=== PATIENT | female | born 1995 | race Caucasian/White ===

== ENCOUNTER 2019-06-13 19:43 | Emergency (ER) | payer OTHER, SELFPAY ==
[2019-06-13 20:05] VITALS: BP 119/87; PULSE 124; RESP 20; TEMP 38.4; O2SAT 100
--- NOTE | 2019-06-13 20:05 | ED.URI ---
HPI - URI/Sore Throat General Chief Complaint: Back Pain/Injury Stated Complaint: Fever Time Seen by Provider: 06/13/19 20:06 Source: patient and family Mode of arrival: ambulatory Limitations: no limitations History of Present Illness HPI Narrative: Patient states she had a negative influenza negative strep test A walk-in clinic yesterday. Patient states she was diagnosed with a viral illness. patient presents today with continued sore throat continued fever and generalized body aches. Patient also complains of low back pain. But denies any urinary symptoms. Patient has taken Augmentin as prescribed for her symptoms. Patient states she had a high fever at home. And took Tylenol and ibuprofen 2 hours ago. Patient also states that she was placed on Augmentin yesterday and has taken 3 doses of Augmentin. Patient states she thinks she was given it for her sinus drainage.Patient reports sore throat, nasal drainage. and cough, no shortness of breath and no chest pain. Patient states she thought she would be better after taking the augmenting, but continues to have same symptoms after starting on augmentin yesterday. MD elicited complaint: fever, sore throat, rhinorrhea and nasal congestion Related Data Home Medications Medication Instructions Recorded Confirmed amoxicillin-pot clavulanate 1 tablet PO Q12H 06/13/19 06/13/19 [Augmentin] Allergies Allergy/AdvReac Type Severity Reaction Status Date / Time No Known Allergies Allergy Unverified 03/05/18 11:30 Review of Systems Review of Systems: Narrative: CONSTITUTIONAL: Denies chills, or sweats. EYES: Denies visual changes, redness, or discharge. ENT: Sore throat, nasal congestion generalized body aches and fever CARDIOVASCULAR: Denies chest pain, palpitations, or edema. RESPIRATORY: Denies cough or dyspnea. GASTROINTESTINAL: Denies abdominal pain, nausea, vomiting, or diarrhea. GENITOURINARY: Denies dysuria or hematuria. SKIN: Denies rash or itching. MUSCULOSKELETAL: Denies back pain, joint pain, or myalgia. NEUROLOGIC: Denies headache, numbness, or weakness. PSYCHIATRIC: Denies anxiety or depression. Constitutional: Constitutional: Reports as per HPI [facility] Comments At time of signature, agree with nursing past medical, surgical, social and family history. There is no relevant family history pertinent to the presenting complaint Exam Narrative: Exam Narrative: GENERAL: Well-appearing, well-nourished, and in no acute distress. HEAD: Normocephalic, atraumatic. EYES: PERRLA and EOMI. ENT: Bilateral TM dullness, mild pharyngeal erythremia no exudate no trismus can open mouth fully. Moderate amount of postnasal drainage NECK: Supple. CHEST: Clear to auscultation. No respiratory distress. HEART: Regular rate and rhythm. No murmur heard. Normal peripheral pulses. ABDOMEN: Soft, nontender, nondistended, normal active bowel sounds. EXTREMITIES: Normal range of motion. No edema. SKIN: Warm, dry, no rash. NEURO: No focal deficits. Alert and oriented x3. [place] Coma Scale Eye Opening: Spontaneous 4 [place] Coma Scale Motor: Obeys Commands 6 [place] Coma Scale Verbal: Oriented 5 Jai Coma Scale Total 15 discussed with patient exam is consistent with viral illness. Patient states she was diagnosed with a virus yesterday, but given augmenting for nasal drainage. Patient states fever is controled with ibuprofen and tylenol. Patient does not wish to go to er at this time. Patient would like to go home, rest, push fluids and if no improvement in 24 hours will follow up with pcp or go to er for further evaluation and treatment. Course Vital Signs Vital signs: Vital Signs Temperature 38.4 C H 06/13/19 20:05 Pulse Rate 124 H 06/13/19 20:05 Respiratory Rate 06/13/19 20:05 Blood Pressure 119/87 06/13/19 20:05 Pulse Oximetry 100 06/13/19 20:05 Temperature 38.4 C H 06/13/19 20:05 Pulse Rate 124 H 06/13/19 20:05 Respiratory Rate
== END 2019-06-13 20:20 | disposition home or self-care (01) ==
PROVIDERS: Emergency Provider Nurse Practitioner Family
DX: J06.9 Acute upper respiratory infection, unspecified (principal); B34.9 Viral infection, unspecified
CPT/HCPCS: 81003; 81025; 87081; 87880; 99213; G0463

== ENCOUNTER 2019-09-08 09:45 | Emergency (ER) | payer OTHER, SELFPAY ==
--- NOTE | ~2019-09-08 | XR_ITS ---
XR ankle RT min 3V 09/08/2019 10:04 INDICATION: Right ankle pain after fall PROCEDURE: 4 views right ankle COMPARISON: No prior studies for comparison. FINDINGS: Fracture, dislocation or subluxation is not identified. Ankle mortise intact. There is mild lateral soft tissue swelling. No foreign bodies are identified. IMPRESSION: 1: NO ACUTE BONE OR JOINT ABNORMALITY IDENTIFIED. Reviewed, dictated and finalized at location A.
[2019-09-08 09:49] VITALS: BP 129/71; PULSE 101; RESP 22; TEMP 36.7; O2SAT 100
--- NOTE | 2019-09-08 09:52 | ED.LOWEXIN ---
HPI - Extremity Injury (Lower) General Chief Complaint: Extremity Injury, Lower Stated Complaint: right ankle injury Time Seen by Provider: 09/08/19 10:08 Source: patient and RN notes reviewed Mode of arrival: ambulatory Limitations: no limitations History of Present Illness HPI Narrative: 24-year-old female presents with concern for right ankle injury. Reports while camping yesterday she was stepping out of a camper and rolled her ankle. Reports she heard popping and cracking . Reports she has taken ibuprofen and Tylenol with codeine for pain. MD complaint: ankle injury Related Data Home Medications Medication Instructions Recorded Confirmed No Home Medications 09/08/19 09/08/19 Allergies Allergy/AdvReac Type Severity Reaction Status Date / Time No Known Allergies Allergy Verified 09/08/19 09:59 Review of Systems Review of Systems: Narrative: CONSTITUTIONAL: Denies malaise, chills, sweats, or fever. CARDIOVASCULAR: Denies chest pain, palpitations RESPIRATORY: Denies dyspnea. SKIN: Reports right ankle swelling MUSCULOSKELETAL: Reports right ankle pain and swelling NEUROLOGIC: Denies numbness, weakness. All systems reviewed & are unremarkable except as noted in HPI and below PMF[facility] Comments At time of signature, agree with nursing past medical, surgical, social and family history. There is no relevant family history pertinent to the presenting complaint Exam Narrative: Exam Narrative: GENERAL: Well-appearing, well-nourished, and in no acute distress. HEAD: Normocephalic, atraumatic. EYES: PERRLA, conjunctivae clear NECK: Supple. CHEST: Speaks in full sentences. No respiratory distress. HEART: Regular rate and rhythm. Normal and equal peripheral pulses. EXTREMITIES: Right ankle and digits of right foot has normal strength and sensation, normal range of motion. Right ankle lateral and medial edema, no foot edema. 5/5 strength with digit flexion and extension. Normal sensation with sensitivity to light touch and pain. No open wounds, no skin tenting, no devitalized tissue or atrophy, no trophic changes, no ecchymosis, no obvious deformity, alignment normal, no point tenderness, nearby joints and structures intact. Distal pulses palpable and equal bilaterally, skin warm, dry, pink. Capillary refill less than 3 seconds. SKIN: Warm, dry, no rash. NEURO: Alert and oriented x3. PSYCH: Normal mood and affect Course Course Emergency Course: Patient is aware of diagnosis, understands and agrees to treatment plan. Anticipatory guidance given. Patient agrees to follow-up as directed and is aware of reasons to seek care at the emergency department. Portions of this record may have been created with voice recognition software Vital Signs Vital signs: Vital Signs Temperature 98.1 F 09/08/19 09:49 Pulse Rate 101 H 09/08/19 09:49 Respiratory Rate 22 H 09/08/19 09:49 Blood Pressure 129/71 09/08/19 09:49 Pulse Oximetry 100 09/08/19 09:49 Temperature 98.1 F 09/08/19 09:49 Pulse Rate 101 H 09/08/19 09:49 Respiratory Rate 22 H 09/08/19 09:49 Blood Pressure 129/71 09/08/19 09:49 Pulse Oximetry 100 09/08/19 09:49 Reviewed. MDM - Extremity Injury (Lower) MDM Narrative Medical decision making narrative: Patients injury and pain is consistent with musculoskeletal etiology. No signs of neurological or vascular compromise on exam. Compartments and tissues are soft without signs of compartment syndrome. Pain is felt appropriate for further evaluation on an outpatient basis. Differential Diagnosis Differential diagnosis: Likely ankle sprain and strain and ankle fracture Imaging Data My impression: Images reviewed, interpreted by radiologist, see report. Not mentioned in the radiologist report, potential mild distal fibular avulsion, unconfirmed by radiologist. Critical Care Time Critical Care Time Critical Care Time: No Discharge Plan Discharge Clinical Impression: Ankle sprain and strain
--- NOTE | 2019-09-08 11:04 | PC.NURSE ---
PT TAKEN TO RADIOLOGY AND ROOM IN WHEELCHAIR
== END 2019-09-08 10:39 | disposition home or self-care (01) ==
PROVIDERS: Emergency Provider Nurse Practitioner; PCP Emergency Medicine
DX: S93.401A Sprain of unspecified ligament of right ankle, initial encounter (principal); S96.911A Strain of unspecified muscle and tendon at ankle and foot level, right foot, initial encounter; X50.9XXA Other and unspecified overexertion or strenuous movements or postures, initial encounter
CPT/HCPCS: 73610; 99213; G0463

== ENCOUNTER 2020-06-27 20:44 | Emergency (ER) | payer OTHER, SELFPAY ==
[2020-06-27] VITALS (13 sets, daily range): BP systolic 116–146; BP diastolic 71–99; PULSE 70–91; RESP 16–18; TEMP 36.1; O2SAT 96–100
--- NOTE | ~2020-06-27 | CT_ITS ---
EXAMINATION: CT abdomen pelvis wo con DATE: 06/27/2020 22:03 INDICATION: Left lower quadrant pain TECHNIQUE: Computed tomography (CT) of the abdomen and pelvis was performed without intravenous contr ast. The dose-length product (DLP) was 860.66 mGy-cm. Automated exposure control and iterative recons truction technique were employed. COMPARISON: 12/22/2014 FINDINGS: The lung bases are clear. The heart size is normal. The gallbladder is surgically absent. T he liver, spleen, pancreas, and adrenal glands are normal. The kidneys are unremarkable. No pathologi dl enlarged abdominal or pelvic lymph nodes are identified. There is no free intraperitoneal gas o r evidence of bowel obstruction. There are changes of appendectomy. There is a fat-containing umbilic al hernia. IMPRESSION: 1. No CT correlate for the patient's symptoms. Reviewed, dictated and finalized at location A. S TECHNICIAN/INSTALLER
[2020-06-27 21:13] LABS: Basophils Absolute Auto 0.1 K/mm3 (0.0-0.1); Basophils Percent Auto 0.8 % (0.2-1.2); Eosinophils Absolute Auto 0.2 K/mm3 (0-0.3); Eosinophils Percent Auto 1.3 % (0-4.4); Hematocrit 40.7 % (37.0-47.0); Hemoglobin 14.1 g/dL (12.0-15.0); Immature Granulocyte Absolute 0.06 K/mm3 (0.00-0.031); Immature Granulocyte Percent A 0.5 % (0-0.5); Lymphocytes Absolute Auto 3.81 K/mm3 (0.9-3.2); Lymphocytes Percent Auto 28.6 % (18.3-44.2); Mean Corpuscular HGB Conc 34.6 g/dl (32-36); Mean Corpuscular Hemoglobin 30.2 pg (26-34); Mean Corpuscular Volume 87.2 fl (80-100); Mean Platelet Volume 8.9 fl (7.4-10.4); Monocytes Absolute Auto 0.8 K/mm3 (0.1-0.6); Monocytes Percent Auto 6.1 % (2.6-8.5); Neutrophils Absolute Auto 8.4 K/mm3 (1.3-6.7); Neutrophils Percent Auto 62.7 % (45.5-73.1); Platelet Count Result 383 k/mm3 (150-375); Red Blood Count 4.67 M/mm3 (4.2-5.4); White Blood Count 13.3 K/mm3 (4.5-10.0)
[2020-06-27 21:15] LABS: Add Urine Microscopic? NO; Appearance Urine Clear (Clear); Bilirubin Urine Negative (Negative); Blood Urine Negative (Negative); Color Urine Straw (Yellow); Glucose Urine UA Negative (Negative); Ketones Urine Negative (Negative); Leukocyte Esterase Ur Negative LEU/UL (Negative); Nitrate Urine Negative (Negative); Protein Urine Negative (Negative); Specific Grav Ur 1.012 (1.001-1.035); Urobilinogen Urine Negative mg/dL (<2.0)
[2020-06-27] MEDS: ONDANSETRON INJ 4 MG/2 ML VIAL IV PUSH (21:17)
[2020-06-27] MEDS: SODIUM CHLORIDE 0.9% IV 1,000 ML 999 ML IV CONT (21:17)
[2020-06-27] MEDS: HYDROmorphone HCL INJ (*CRX) 1 MG/ML SYR IV PUSH ×2 (21:18→22:56)
[2020-06-27 21:24] LABS: Alanine Aminotransferase 17 U/L (4-35); Albumin Level 4.6 g/dL (3.5-5.1); Alkaline Phosphatase 56 U/L (38-126); Anion Gap 7 mmol/L (8-16); Aspartate Amino Transferase 27 U/L (14-36); Bilirubin,Total 0.3 mg/dL (0.2-1.3); Blood Urea Nitrogen 16 mg/dL (7-17); Calcium 9.3 mg/dL (8.4-10.2); Carbon Dioxide 29 mmol/L (22-30); Chloride 105 mmol/L (98-107); Estimated CRCL calculation 107 ml/min; Estimated Glomerular Filt Rate > 60; Glucose 84 mg/dL (65-105); Lipase 167 U/L (23-300); Potassium 3.8 mmol/L (3.4-5.0); Sodium 141 mmol/L (137-145)
--- NOTE | 2020-06-27 21:57 | ED.GENADULT ---
HPI - General Adult General Chief complaint: Abdominal Pain Stated complaint: left lower abd pain Time Seen by Provider: 06/27/20 20:58 History of Present Illness HPI narrative: Patient is a 25-year-old female who presents the emergency department with chief complaint of left lower quadrant pain. Patient states that she has a sharp-like pain in the left lower quadrant reports that is gradually worsened throughout the day patient reports he is unable to get comfortable in any position reports has had some nausea and vomiting with this denies diarrhea denies vaginal discharge denies dysuria. Patient reports no prior history of kidney stones reports has had a prior appendectomy and reports he had a prior cholecystectomy. Related Data Home Medications Medication Instructions Recorded Confirmed levothyroxine [Euthyrox] 06/27/20 Allergies Allergy/AdvReac Type Severity Reaction Status Date / Time No Known Allergies Allergy Verified 06/27/20 21:07 Review of Systems Review of Systems: Narrative: A 10 system review of systems was completed on the patient and is negative except for what is stated in the HPI. Nursing and ancillary documentation was reviewed. PMFSH Comments Patient has negative past medical history Past surgical history significant for appendectomy and cholecystectomy Social history the patient denies smoking or illicit drug use Exam Narrative: Exam Narrative: GENERAL: Well-appearing, well-nourished, and in no acute distress. HEAD: Normocephalic, atraumatic. EYES: PERRLA and EOMI. ENT: Nares clear, no rhinorrhea or epistaxis. Mucous membranes moist. NECK: Supple. CHEST: Clear to auscultation. No respiratory distress. HEART: Regular rate and rhythm. No murmur heard. Normal peripheral pulses. ABDOMEN: Soft, tender to palpation in the left lower quadrant, nondistended, normal active bowel sounds. EXTREMITIES: Normal range of motion. No edema. SKIN: Warm, dry, no rash. NEURO: No focal deficits. Alert and oriented x3. PSYCH: Normal mood and affect. Course Course Emergency Course: CT scan of the abdomen pelvis showed no evidence of acute abnormality. Vital Signs Vital signs: Vital Signs Temperature 36.1 C L 06/27/20 20:48 Pulse Rate 91 06/27/20 20:48 Respiratory Rate 18 06/27/20 20:48 Blood Pressure 146/99 H 06/27/20 20:48 Pulse Oximetry 97 06/27/20 20:48 Temperature 36.1 C L 06/27/20 20:48 Pulse Rate 91 06/27/20 20:48 Respiratory Rate 18 06/27/20 20:48 Blood Pressure 116/71 06/27/20 22:01 Pulse Oximetry 99 06/27/20 22:01 Medical Decision Making Vital Signs Vital Signs: Vital Signs Temperature 36.1 C L 06/27/20 20:48 Pulse Rate 91 06/27/20 20:48 Respiratory Rate 18 06/27/20 20:48 Blood Pressure 146/99 H 06/27/20 20:48 Pulse Oximetry 97 06/27/20 20:48 Temperature 36.1 C L 06/27/20 20:48 Pulse Rate 91 06/27/20 20:48 Respiratory Rate 18 06/27/20 20:48 Blood Pressure 116/71 06/27/20 22:01 Pulse Oximetry 99 06/27/20 22:01 Lab Data Result diagrams: 06/27/20 21:03 06/27/20 21:03 Labs: Lab Results 06/27/20 06/27/20 06/27/20 Range/Units 21:03 21:03 21:03 WBC 13.3 H (4.5-10.0) K/mm3 RBC 4.67 (4.2-5.4) M/mm3 Hgb 14.1 (12.0-15.0) g/dL Hct 40.7 (37.0-47.0) % MCV 87.2 (80-100) fl MCH 30.2 (26-34) pg MCHC 34.6 (32-36) g/dl RDW 11.0 L (11.5-14.5) % Plt Count 383 H (150-375) k/mm3 MPV 8.9 (7.4-10.4) fl Immature Gran % (Auto) 0.5 (0-0.5) % Neut % (Auto) 62.7 (45.5-73.1) % Lymph % (Auto) 28.6 (18.3-44.2) % Sullivan % (Auto) 6.1 (2.6-8.5) % Eos % (Auto) 1.3 (0-4.4) % Baso % (Auto) 0.8 (0.2-1.2) % Lymph # (Auto) 3.81 H (0.9-3.2) K/mm3 Sullivan # (Auto) 0.8 H (0.1-0.6) K/mm3 Eos # (Auto) 0.2 (0-0.3) K/mm3 Baso # (Auto) 0.1 (0.0-0.1) K/mm3 Abs Immat Gran (auto) 0.06 H (0.00-0.031) K/mm3 Absolute Ne
[2020-06-27] MEDS: KETOROLAC 30 MG/ML VIAL (*BKC) IV PUSH (22:55)
== END 2020-06-27 23:28 | disposition home or self-care (01) ==
PROVIDERS: Emergency Provider Emergency Medicine; PCP Emergency Medicine
DX: R10.32 Left lower quadrant pain (principal)
CPT/HCPCS: 36415; 74176; 80053; 81003; 81025; 83690; 85025; 96361; 96374; 96375; 96376; 99284; J1170; J1885; J2405; J7030

== ENCOUNTER → 2020-07-18 01:43 | Outpatient (CLI) | payer OTHER, SELFPAY ==
[2020-07-18 18:54] LABS: SARS-CoV-2 RNA PCR Negative
== END ==
PROVIDERS: PCP Emergency Medicine; Visit Provider Obstetrics & Gynecology
DX: Z01.812 Encounter for preprocedural laboratory examination (principal); Z20.822 Contact with and (suspected) exposure to COVID-19
CPT/HCPCS: C9803; U0003; U0005

== ENCOUNTER 2020-07-22 00:34 | Day surgery (SDC) | payer OTHER, SELFPAY ==
[2020-07-14 10:05] VITALS: BMI 32.4
[2020-07-22] VITALS (13 sets, daily range): BP systolic 108–155; BP diastolic 57–82; PULSE 71–117; RESP 16–18; TEMP 36.4–37.7; O2SAT 92–100
[2020-07-22] MEDS: LACTATED RINGERS 1,000 ML 30 ML IV CONT ×3 (10:07→16:11)
[2020-07-22] MEDS: ACETAMINOPHEN 500 MG TABLET 1000 MG PO (10:07)
[2020-07-22] MEDS: KETOROLAC 15 MG/ML VIAL (*BKC) IV PUSH (10:12)
--- NOTE | 2020-07-22 11:09 | WPDHPUPDATE1 ---
History and Physical Update Update Date/Time: 07/22/20 11:09 History and Physical has been reviewed, including an updated exam of the patient. There are NO changes in the patient's condition. Risks, benefits, and alternatives have been discussed and questions answered. Patient agrees to proceed with procedure.
--- NOTE | 2020-07-22 11:31 | WPDANESEPPF ---
Anes - Initial Pre Proc Eval Procedure: Operation Date: 07/22/20 11:30 Proposed Procedures p Diagnostic Laparoscopy - Aubree Garcia MD Date/Time: 07/22/20 11:31 Surgeon: Aubree Garcia MD Pre Op Diagnosis: Pelvic Pain Patient Data Age: 25 Gender: F Height: 5 ft 5 in Weight: 93.1 kg Last Vital Signs Temp 99.8 F H 07/22/20 10:21 Pulse 82 07/22/20 10:21 Resp 18 07/22/20 10:21 BP 110/65 07/22/20 10:21 Pulse Ox 99 07/22/20 10:21 Allergies Allergy/AdvReac Type Severity Reaction Status Date / Time No Known Allergies Allergy Verified 07/22/20 10:18 Home Medications Medication Instructions Recorded Confirmed Type hydrocodone-acetaminophen 1 tablet PO Q6H PRN 3 Days #12 06/27/20 Rx tablet levothyroxine [Euthyrox] 50 mcg PO DAILY 06/27/20 History Patient hx anesthesia problems: none Family hx anesthesia problems: none [facility] Past Medical History Medical History (Updated 07/22/20 @ 11:28 by Gatito Davila MD) Anxiety Hypothyroid Social History Social History Smoking status: Never smoker Living arrangements: with family Spiritual care concerns: No Anes - Eval Final PreProcedure Day of Procedure 07/22/20 11:31 Patient weight: obese Heart: regular rate and rhythm Lungs: clear to auscultation Airway: Mallampati scale class II Neurological: alert and oriented Last oral intake: >/= 8 hours ASA classification: II Emergent: no Anesthetic plan: proceed Anesthesia type and monitoring: general ETT and standard monitoring Informed Consent: The patient's anesthetic plan and its attendant risks and benefits were discussed with the patient/family/POA. Questions were solicited and answers provided to the satisfaction of the patient/family/POA.
--- NOTE | 2020-07-22 14:33 | P.OP_ITS ---
Procedure Note - Detailed Date of procedure: 07/22/20 Pre-op diagnosis: Pelvic Pain Right ovarian cyst, endometriosis Procedure performed: Laparoscopic ovarian cystectomy, radical resection of endometriosis in the posterior cul-de-sac Description of procedure: The patient was taken the operating room. She was prepped and draped in the dorsal lithotomy position after induction of general anesthesia. A 5 mm left upper quadrant incision was made in the abdominal skin with a scalpel. A 5 mm trocar was inserted the intra-abdominal cavity under direct visualization of the scope. A 5 mm left lower quadrant incision was made with the scalp on the abdominal skin and a 5 mm trocar was inserted the intra- abdominal cavity under direct visualization of the scope. A 5 mm infraumbilical incision was made with scalpel and a 5 mm trocar was inserted into the intra- abdominal cavity under direct visualization of the scope. An ovarian cyst and possible mass removed the right ovary. Using sharp and blunt dissection cautery the the mass and cyst were removed. There placed in an endobag and taken at the left lower quadrant trocar site, after it was expanded to a 11 mm trocar. A Falope mm skin incision was completed from the original 5 mm incision. This was done with a scalpel. The ovaries were suspended using Joseluis-Price needle placed through the abdomen bilaterally with an 0 Vicryl. The Joseluis Isaías needle was pushed thro ugh the ovary and the suture was grasped on the other side the ovary and pulled back through the skin and was held in place with a hemostat. This was done in a bilateral fashion. A ASHOK manipulator was placed in the intrauterine cavity using a speculum and tenaculum. The peritoneum in the posterior cul-de-sac was removed completely with the exception of the perineum over the rectum. It was removed from the perirectal area to laterally to the fallopian tube, and it was removed from the uterine artery superiorly to the pelvic brim. The ureters were dissected out and were observable throughout the procedure. Interceed was placed over the juanito pelvis sees in the posterior cul-de-sac. All this required over 2 hours. Prior to placement of the Interceed, the pelvis was irrigated with copious amounts of normal saline. The pneumoperitoneum was reduced. The trocars were removed. The patient was taken recovery room stable condition. Sponge lap and needle counts were correct x2. Anesthesia: GETA Surgeon: Aubree Garcia MD Estimated blood loss (mL): 50 Drains: No Packing: No Pathology: yes Complications: No immediate complications Condition: stable Disposition: same day Findings: Endometriosis, find vesicular endometriosis the posterior cul-de-sac bilaterally residing mostly in the medial aspects of the hemipelvis ease. Right ovarian cysts and possible mass. Likely Patent right fallopian tube and normal- appearing left fallopian
[2020-07-22] MEDS: fentaNYL CITRATE INJ (*CRX) 100 MCG/2 ML VIAL 25 MCG IV PUSH ×8 (15:07→16:00)
[2020-07-22] MEDS: HYDROmorphone HCL INJ (*CRX) 1 MG/ML SYR 0.5 MG IV PUSH ×3 (16:09→16:42)
[2020-07-22] MEDS: oxyCODONE HCL (*CRX) 5 MG TAB IR PO (16:48)
--- NOTE | 2020-07-22 17:00 | SUR.PHASEII ---
1700- Patient tearful and crying sitting in recliner requesting I want to go home now . Informed patient we would monitor her vital signs and pain level until 1730. at bedside voicing he is angry with how long this procedure has taken today but agreeable for patient to stay until 1730 to continue being monitored. 1715- Patient requesting different pain medication be sent into her pharmacy and for this RN to call Dr. Garcia for new prescription for different pain medication. This RN called and spoke with Dr. Garcia about patient's concern with pain control at home with the [facility] script sent to her pharmacy. Per Dr. Garcia instruct patient to take two [place] prescribed at a time. 1720- Informed patient that Dr. Garcia has recommended to take two Pine[place]st tablets at a time for pain control and to call his office if this is not sufficient and with any concerns or questions.
== END 2020-07-22 17:35 | disposition home or self-care (01) ==
PROVIDERS: PCP Emergency Medicine; Visit Provider Obstetrics & Gynecology
PROC: (CPT 49320; principal; 2020-07-22 11:30)
DX: R10.2 Pelvic and perineal pain (principal); N83.11 Corpus luteum cyst of right ovary; K66.8 Other specified disorders of peritoneum; N80.3 Endometriosis of pelvic peritoneum; E03.9 Hypothyroidism, unspecified; F41.9 Anxiety disorder, unspecified; E66.9 Obesity, unspecified; Z68.34 Body mass index [BMI] 34.0-34.9, adult
CPT/HCPCS: 58662; 88305; A9270; J0330; J1100; J1170; J1885; J2250; J2405; J2704; J3010; J7120; Q9968

== ENCOUNTER 2020-07-22 23:23 | Observation (INO) | payer OTHER, SELFPAY ==
--- NOTE | ~2020-07-22 | XR_ITS ---
XR chest 1V portable DATE: 07/23/2020 01:16 INDICATION: Right anterior shoulder and rib cage pain TECHNIQUE: Portable AP chest on 07/23/2020 at 0119 hours COMPARISON: 11/11/2017 PA and lateral chest FINDINGS: Normal heart size. Low lung volumes may account for mild atelectasis at the lung bases. Oth erwise the lungs appear clear. No pleural effusion or pulmonary vascular congestion or pneumothorax. Minimal levoscoliosis of the thoracic spine. Surgical clips overlie the right upper quadrant, consistent with cholecystectomy. IMPRESSION: Limited portable study with mild atelectasis at the lung bases; otherwise no active cardi opulmonary disease Reviewed, dictated and finalized at location A. IMPRESSION: Limited portable study with mild atelectasis at the lung bases; oth erwise no active cardiopulmonary disease
--- NOTE | ~2020-07-22 | CT_ITS ---
EXAMINATION: CT abdomen pelvis wo con DATE: 07/23/2020 21:45 INDICATION: Abdominal pain. Patient had surgery yesterday. TECHNIQUE: Computed tomography (CT) of the abdomen and pelvis was performed without intravenous contr ast. Automated exposure control and iterative reconstruction technique were employed. Exam dose: 152 3.04 mGy-cm total exam DLP. COMPARISON: June 27, 2020 CT abdomen pelvis FINDINGS: There is bibasilar atelectasis, right greater than left. Normal heart size. No pericardial or pleural effusion. There is intraperitoneal free air, which is likely postoperative, given history of surgery yesterday. Status post cholecystectomy. No hepatic, splenic, pancreatic, and adrenal or renal space-occupying mass lesion. No urinary tract calculus or hydroureteronephrosis. There is stranding around both ovaries and adnexal areas. Uterus appears normal. The urinary bladder is unremarkable. There is subcutaneous emphysema and fat stranding in the region of the lateral left abdominal wall mu sculature and subcutaneous adipose tissues. No bowel obstruction, bowel wall thickening, pneumatosis or intraperitoneal free air is detected. Nor mal caliber of the abdominal aorta. No intraperitoneal or retroperitoneal or pelvic mass lesion or ad enopathy or ascites. Included skeletal structures are unremarkable. IMPRESSION: Subcutaneous emphysema of the left lateral abdominal wall subcutaneous tissues and muscu lature and mild intraperitoneal air; given the history of surgery yesterday, these findings may be po stoperative. Clinical correlation is advised Additionally, there is some soft tissue stranding around the ovaries and adnexal areas. Reviewed, dictated and finalized at Location A. Reviewed, dictated and finalized at location A. IMPRESSION: Subcutaneous emphysema of the left lateral abdominal wall subcutan eous tissues and musculature and mild intraperitoneal air; given the history of surgery yesterday, these findings may be postoperative. Clinical correlation i s advised Additionally, there is some soft tissue stranding around the ovaries and adnexa l areas.
[2020-07-22 23:38] VITALS: PULSE 115; RESP 16; O2SAT 98
[2020-07-22 23:44] VITALS: BP 129/73; PULSE 107; RESP 19; O2SAT 98
--- NOTE | 2020-07-22 23:44 | PC.NURSE ---
Pt presents to ED with complaints of right shoulder pain. States she had a laparoscopic surgery performed at 1100 today where she had a mass and cyst removed from her right ovary. Surgical incisions are well approximated with no s/s of infection and no drainage or erythema noted. Pt states pain to right shoulder increases with inhalation and is also noted to right rib. Pt provided 100mcg of fentanyl and 4mg of zofran lighter captain by EMS. Pt alert and oriented x4. Call button and personal items within reach. Pt advised to press call button for assistance. EDMD presented to bedside.
[2020-07-22] MEDS: HYDROmorphone HCL INJ (*CRX) 1 MG/ML SYR IV PUSH (23:53)
[2020-07-22] MEDS: SODIUM CHLORIDE 0.9% IV 1,000 ML 999 ML IV CONT (23:53)
[2020-07-22] MEDS: ONDANSETRON INJ 4 MG/2 ML VIAL IV PUSH (23:54)
[2020-07-23] VITALS (7 sets, daily range): BP systolic 107–138; BP diastolic 62–80; PULSE 84–108; RESP 18–24; TEMP 36.6–37.3; O2SAT 95–100; BMI 36.3
--- NOTE | 2020-07-23 00:14 | ED.GENADULT ---
HPI - General Adult General Chief complaint: Extremity Problem,Nontraumatic Stated complaint: shoulder pain Time Seen by Provider: 07/22/20 23:36 History of Present Illness HPI narrative: Patient is a 20-year-old female who presents the emergency department with chief complaint of right diaphragm and right shoulder pain. The patient was just in the hospital and was discharged at 5 PM today after having a intra-abdominal surgery done by [employer]. The patient states that had a difficult time controlling her pain postoperatively and she required multiple doses of IV pain medication the patient subsequently went home and states that now she is having severe pain under her right diaphragm area and reports that it radiates up into her right shoulder. Related Data Home Medications Medication Instructions Recorded Confirmed levothyroxine [Euthyrox] 50 mcg PO DAILY 06/27/20 Allergies Allergy/AdvReac Type Severity Reaction Status Date / Time No Known Allergies Allergy Verified 07/22/20 10:18 Review of Systems Review of Systems: Narrative: A 10 system review of systems was completed on the patient and is negative except for what is stated in the HPI. Nursing and ancillary documentation was reviewed. PMFSH Past Medical History Medical History Anxiety Hypothyroid Social History Social History Smoking status: Never smoker Spiritual care concerns: No Exam Narrative: Exam Narrative: GENERAL: Well-appearing, well-nourished, and in no acute distress. HEAD: Normocephalic, atraumatic. EYES: PERRLA and EOMI. ENT: Nares clear, no rhinorrhea or epistaxis. Mucous membranes moist. NECK: Supple. CHEST: Clear to auscultation. No respiratory distress. HEART: Regular rate and rhythm. No murmur heard. Normal peripheral pulses. ABDOMEN: Soft, mild tenderness to palpation in the right upper quadrant , nondistended, normal active bowel sounds. EXTREMITIES: Normal range of motion. No edema. SKIN: Warm, dry, no rash. NEURO: No focal deficits. Alert and oriented x3. PSYCH: Normal mood and affect. Course Vital Signs Vital signs: Vital Signs Pulse Rate 115 H 07/22/20 23:38 Respiratory Rate 16 07/22/20 23:38 Pulse Oximetry 98 07/22/20 23:38 Pulse Rate 107 H 07/22/20 23:44 Respiratory Rate 19 07/22/20 23:44 Blood Pressure 129/73 07/22/20 23:44 Pulse Oximetry 98 07/22/20 23:44 Medical Decision Making Vital Signs Vital Signs: Vital Signs Pulse Rate 115 H 07/22/20 23:38 Respiratory Rate 16 07/22/20 23:38 Pulse Oximetry 98 07/22/20 23:38 Pulse Rate 107 H 07/22/20 23:44 Respiratory Rate 19 07/22/20 23:44 Blood Pressure 129/73 07/22/20 23:44 Pulse Oximetry 98 07/22/20 23:44 Lab Data Result diagrams: 07/23/20 01:11 07/23/20 01:11 Labs: Lab Results 07/23/20 07/23/20 Range/Units 01:11 01:11 WBC 16.7 H (4.5-10.0) K/mm3 RBC 4.27 (4.2-5.4) M/mm3 Hgb 12.7 (12.0-15.0) g/dL Hct 37.5 (37.0-47.0) % MCV 87.8 (80-100) fl MCH 29.7 (26-34) pg MCHC 33.9 (32-36) g/dl RDW 11.3 L (11.5-14.5) % Plt Count 367 (150-375) k/mm3 MPV 9.3 (7.4-10.4) fl Immature Gran % (Auto) 0.5 (0-0.5) % Neut % (Auto) 87.4 H (45.5-73.1) % Lymph % (Auto) 7.1 L (18.3-44.2) % [place] % (Auto) 4.8 (2.6-8.5) % Eos % (Auto) 0.0 (0-4.4) % Baso % (Auto) 0.2 (0.2-1.2) % Lymph # (Auto) 1.19 (0.9-3.2) K/mm3 [place] # (Auto) 0.8 H (0.1-0.6) K/mm3 Eos # (Auto) 0.0 (0-0.3) K/mm3 Baso # (Auto) 0.0 (0.0-0.1) K/mm3 Abs Immat Gran (auto) 0.09 H (0.00-0.031) K/mm3 Absolute Neuts (auto) 14.6 H (1.3-6.7) K/mm3 Absolute Nucleated RBC 0.0 (0.0-0.012) K/mm3 Nucleated RBC % 0.0 (0.0-0.2) % Sodium 137 (137-145) mmol/L Potassium 4.5 (3.4-5.0) mmol/L Chloride 108 H (98-107) m
--- NOTE | 2020-07-23 00:55 | PC.NURSE ---
Pt resting on cart in its lowest position with call button and personal items within reach. States pain has improved from 10/10 and is now 3/10 that increases with activity and movement. vitals remain stable. Call button and personal items within reach. Advised to press call button for assistance.
--- NOTE | 2020-07-23 00:58 | PC.NURSE ---
IV fluids continue to infuse due to positional site. Pt educated on the need to keep RUE straightened to improve flow of IV fluids; pt voices her understanding.
[2020-07-23] MEDS: HYDROmorphone HCL INJ (*CRX) 1 MG/ML SYR IV PUSH (01:19)
[2020-07-23 01:31] LABS: Alanine Aminotransferase 17 U/L (4-35); Albumin Level 3.9 g/dL (3.5-5.1); Alkaline Phosphatase 44 U/L (38-126); Anion Gap 7 mmol/L (8-16); Aspartate Amino Transferase 28 U/L (14-36); Bilirubin,Total 0.3 mg/dL (0.2-1.3); Blood Urea Nitrogen 9 mg/dL (7-17); Calcium 8.4 mg/dL (8.4-10.2); Carbon Dioxide 22 mmol/L (22-30); Chloride 108 mmol/L (98-107); Estimated Glomerular Filt Rate > 60; Glucose 140 mg/dL (65-105); Lipase 80 U/L (23-300); Potassium 4.5 mmol/L (3.4-5.0); Sodium 137 mmol/L (137-145)
[2020-07-23 01:43] LABS: Basophils Percent Auto 0.2 % (0.2-1.2); Hematocrit 37.5 % (37.0-47.0); Hemoglobin 12.7 g/dL (12.0-15.0); Immature Granulocyte Absolute 0.09 K/mm3 (0.00-0.031); Immature Granulocyte Percent A 0.5 % (0-0.5); Lymphocytes Absolute Auto 1.19 K/mm3 (0.9-3.2); Lymphocytes Percent Auto 7.1 % (18.3-44.2); Mean Corpuscular HGB Conc 33.9 g/dl (32-36); Mean Corpuscular Hemoglobin 29.7 pg (26-34); Mean Corpuscular Volume 87.8 fl (80-100); Mean Platelet Volume 9.3 fl (7.4-10.4); Monocytes Absolute Auto 0.8 K/mm3 (0.1-0.6); Monocytes Percent Auto 4.8 % (2.6-8.5); Neutrophils Absolute Auto 14.6 K/mm3 (1.3-6.7); Neutrophils Percent Auto 87.4 % (45.5-73.1); Platelet Count Result 367 k/mm3 (150-375); Red Blood Count 4.27 M/mm3 (4.2-5.4); Red Cell Distribution Width 11.3 % (11.5-14.5); White Blood Count 16.7 K/mm3 (4.5-10.0)
--- NOTE | 2020-07-23 02:05 | PC.NURSE ---
Pt states pain has improved at this time and rates pain 4/10 at this time. Breathing noted to be even and unlabored, vitals stable. Call button and personal items within reach. Advised to press call button for assistance.
[2020-07-23] MEDS: KETOROLAC 30 MG/ML VIAL (*BKC) IV PUSH ×4 (02:16→22:52)
--- NOTE | 2020-07-23 02:39 | PC.NURSE ---
Pt ambulated in ortiz to restroom with steady gait pain rated 4/10 prior to ambulating from bed.
--- NOTE | 2020-07-23 02:43 | PC.NURSE ---
Report called to receiving nurseMaria. Vasquez to send pt to floor.
--- NOTE | 2020-07-23 02:56 | PC.NURSE ---
Patient transferred to room #289 from ER per wheelchair.
[2020-07-23] MEDS: SODIUM CHLORIDE 0.9% IV 1,000 ML 125 ML IV CONT (03:07)
--- NOTE | 2020-07-23 03:11 | PC.NURSE ---
Pt sent to floor alert, stable and in no obvious distress with RN.
[2020-07-23] MEDS: fentaNYL CITRATE INJ (*CRX) 100 MCG/2 ML VIAL IV PUSH ×7 (03:36→18:53)
--- NOTE | 2020-07-23 08:34 | PM.IMHP ---
H&P: HPI History of Present Illness Date/Time: 07/23/20 08:34 this patient is a 25-year-old female who is postoperative day 1 from a diagnostic laparoscopy and ovarian cystectomy. Patient was readmitted through the emergency department last night with severe shoulder pain. Patient sharp stabbing severe right upper gastric pain and shoulder. It is intermittent. It is unchanged over many hours. Pain medications Paleo to. She denies any shortness of breath. She denies any chest pain she denies any nausea, vomiting, fever, chills. She denies any dizziness. Chief Complaint: Shoulder pain Review of Systems Constitutional: Constitutional: Reports no additional constitutional complaints, Denies fatigue, Denies headache(s), Denies lethargy and Denies weakness Eyes: Eyes: Reports no additional eye complaints, Denies blurry vision and Denies photophobia ENT: Reports as per HPI, Denies headache(s) and Denies neck pain Cardiovascular: Cardiovascular: Denies chest pain, Denies diaphoresis, Denies leg edema, Denies palpitations and Denies dyspnea Respiratory: Respiratory: Denies hemoptysis, Denies dyspnea and Denies wheezing Gastrointestinal: Gastrointestinal: Denies abdominal pain, Denies melena, Denies bloating, Denies hematochezia, Denies nausea and Denies vomiting Genitourinary: Genitourinary: Reports no additional female genitourinary complaints Musculoskeletal: Musculoskeletal: Denies joint swelling, Denies neck pain, Denies numbness and Denies stiffness Neurologic: Denies Abnormal speech present, Denies confusion, Denies headache(s), Denies numbness and Denies weakness Psychiatric: Psychiatric: Denies anxiety, Denies confusion, Denies depression, Denies homicidal ideation and Denies suicidal ideation Endocrine: Endocrine: Denies fatigue and Denies palpitations Allergic/Immunologic: Allergic/Immunologic: Denies wheezing PMFSH Past Medical History Medical History Anxiety Hypothyroid Social History Social History Smoking status: Never smoker Spiritual care concerns: No Meds Home Medications and Allergies Home Medications Medication Instructions Recorded Confirmed Type levothyroxine [Euthyrox] 50 mcg PO DAILY 06/27/20 07/23/20 History hydrocodone-acetaminophen 1 - 2 tablet PO Q4H PRN #20 tablet 07/22/20 07/23/20 Rx Allergies Allergy/AdvReac Type Severity Reaction Status Date / Time No Known Allergies Allergy Verified 07/23/20 03:26 Vital Signs Vital Signs - 24 hr 07/22/20 23:38 07/22/20 23:44 07/23/20 01:35 Temperature 99.1 F Pulse Rate 115 H 107 H 97 Respiratory Rate 16 19 22 H Blood Pressure 129/73 138/68 Pulse Oximetry 98 98 98 07/23/20 02:46 07/23/20 03:00 Temperature 98.7 F 99.0 F Pulse Rate 100 108 H Respiratory Rate 18 20 Blood Pressure 114/68 133/78 Pulse Oximetry 99 95 Exam Const: General: healthy appearing, comfortable and no acute distress; No confusion Orientation/consciousness: No confusion Eyes: Direct Ophthalmoscopy: No photophobia Resp: Auscultation: clear to auscultation bilaterally, no rales, no rhonchi and no wheezes Cardio: Rate: regular rate Heart sounds: no click, no murmurs and no rubs GI: Inspection: non-distended GI Palp: No abdominal tenderness Auscultation: normal bowel sounds Neuro: General: No confusion Speech: No Abnormal speech present Extrem: General: normal to inspection, no pedal edema and no calf tenderness H&P: Results Labs Labs: Short CBC 07/23/20 Range/Units 01:11 WBC 16.7 H (4.5-10.0) K/mm3 Hgb 12.7 (12.0-15.0) g/dL Hct 37.5 (37.0-47.0) % Plt Count 367 (150-375) k/mm3 [facility] 07/23/20 01:11 Sodium 137 Potassium 4.5 Chloride 108 H Carbon Dioxide 22 BUN 9 D Creatinine 0.60 L Glucose 140 H Calcium 8.4 Liver Function 07/23/20 Range/Units 01:11 Total
[2020-07-23] MEDS: SIMETHICONE 80 MG TAB.CHEW PO ×4 (11:24→19:57)
[2020-07-23] MEDS: oxyCODONE/ACETAMINOPHEN (*CRX) 5-325 MG TABLET 2 TABLET PO (21:25)
[2020-07-23] MEDS: ALPRAZolam (*CRX) 0.5 MG TABLET PO (21:26)
[2020-07-23 21:31] LABS: Basophils Absolute Auto 0.1 K/mm3 (0.0-0.1); Basophils Percent Auto 0.7 % (0.2-1.2); Eosinophils Absolute Auto 0.1 K/mm3 (0-0.3); Eosinophils Percent Auto 1.2 % (0-4.4); Hematocrit 31.7 % (37.0-47.0); Hemoglobin 10.5 g/dL (12.0-15.0); Immature Granulocyte Absolute 0.05 K/mm3 (0.00-0.031); Immature Granulocyte Percent A 0.5 % (0-0.5); Lymphocytes Absolute Auto 3.28 K/mm3 (0.9-3.2); Lymphocytes Percent Auto 31.1 % (18.3-44.2); Mean Corpuscular HGB Conc 33.1 g/dl (32-36); Mean Corpuscular Hemoglobin 29.8 pg (26-34); Mean Corpuscular Volume 90.1 fl (80-100); Monocytes Absolute Auto 0.8 K/mm3 (0.1-0.6); Monocytes Percent Auto 7.9 % (2.6-8.5); Neutrophils Absolute Auto 6.2 K/mm3 (1.3-6.7); Neutrophils Percent Auto 58.6 % (45.5-73.1); Platelet Count Result 283 k/mm3 (150-375); Red Blood Count 3.52 M/mm3 (4.2-5.4); Red Cell Distribution Width 11.4 % (11.5-14.5); White Blood Count 10.6 K/mm3 (4.5-10.0)
[2020-07-23 22:46] LABS: INR 0.9; Partial Thromboplastin Time 25.3 SECONDS (22.3-36.8); Prothrombin Time 12.7 Seconds (11.1-14.7)
--- NOTE | 2020-07-23 22:58 | PM.GYNPNOP ---
VP ANALYSIS - A/P Assessment and plan (1) Post-op pain: Code(s): G89.18 - Other acute postprocedural pain Status: Acute Assessment and Plan: Intraoperatively there had been an area that bled and was difficult to make hemostatic. It was hemostatic at the end of the case. This gave me concerned about possible intra-abdominal blood and postoperative hemorrhage. With the worsening pain and lower hemoglobin we ordered a CT scan of the abdomen pelvis. I asked the crew to come to operate for hemoperitoneum. The final CT report showed no inter abdominal blood. We are changing her pain medication and adding anxiolytics. After some Xanax the patient appears more comfortable. She is hemodynamically stable. There is no intra-abdominal process is abnormal for postoperative patient. We will continue to observe. Postoperative Procedures: Procedures Operation Date: 07/23/20 23:00 <No data on this case meets the specified criteria> Time Spent With Patient Time: Total time spent is greater than 50% in coordination of care (as documented) at patient's floor/unit and/or counseling patient: Time with patient: Greater than 35 minutes VP ANALYSIS- PN:Subj Post-Op Subjective Date/time seen: 07/23/20 22:58 Came to see patient tonight. The patient had worsening Upper abdominal and shoulder pain. Exam Const: General: healthy appearing, comfortable and no acute distress Resp: Auscultation: clear to auscultation bilaterally, no rales, no rhonchi and no wheezes Cardio: Rate: regular rate Heart sounds: no click, no murmurs and no rubs GI: Inspection: non-distended Auscultation: normal bowel sounds Extrem: General: normal to inspection, no pedal edema and no calf tenderness VP ANALYSIS - PN: Obj Data Vital Signs Vital Signs: Vital Signs - 24 hr 07/22/20 23:38 07/22/20 23:44 07/23/20 01:35 Temperature 99.1 F Pulse Rate 115 H 107 H 97 Respiratory Rate 16 19 22 H Blood Pressure 129/73 138/68 Pulse Oximetry 98 98 98 07/23/20 02:46 07/23/20 03:00 07/23/20 07:35 Temperature 98.7 F 99.0 F 99.2 F Pulse Rate 100 108 H 100 Respiratory Rate 18 20 24 H Blood Pressure 114/68 133/78 107/69 Pulse Oximetry 99 95 100 07/23/20 13:25 07/23/20 17:48 Temperature 97.8 F 98.7 F Pulse Rate 92 84 Respiratory Rate 20 20 Blood Pressure 114/62 125/75 Pulse Oximetry 99 Intake/Output Intake/Output: Intake & Output 07/20/20 07/21/20 07/22/20 07/23/20 23:59 23:59 23:59 23:59 Intake Total 1000 Output Total 175 Balance 825 Meds/Results Medications: Active Medications Generic Name Dose Route Start Last Admin Trade Name Freq PRN Reason Stop Dose Admin Fentanyl Citrate 100 mcg 07/23/20 03:18 07/23/20 18:53 Fentanyl Citrate Inj (*Crx) 100 Mcg/2 Ml Vial IV PUSH 100 mcg Q2HR PRN Administration Pain Rated 7-10 Sodium Chloride 1,000 mls @ 125 mls/hr 07/23/20 02:00 07/23/20 19:30 Normal Saline Iv IV CONT Not Given .Q8H [facility] Ketorolac Tromethamine 30 mg 07/23/20 01:56 07/23/20 22:52 Ketorolac 30 Mg/Ml Vial (*Bkc) IV PUSH 07/28/20 01:57 30 mg Q6H PRN Administration Pain Rated 4-6 Lorazepam 1 mg 07/23/20 09:00 Lorazepam (*Crx) 0.5 Mg Tablet PO TID AARTI Ondansetron HCl 4 mg 07/23/20 01:56 Ondansetron Inj 4 Mg/2 Ml Vial IV PUSH Q4H PRN Nausea Oxycodone/Acetaminophen 2 tablet 07/23/20 20:50 07/23/20 21:25 Oxycodone/Acetaminophen (*Crx) 5-325 Mg Tablet PO 2 tablet Q4H PRN Administration Pain Rated 7-10 Simethicone 80 mg 07/23/20 10:14 07/23/20 19:57 Simethicone 80 Mg Tab.Chew PO 80 mg Q2HR PRN Administration Gas Discomfort Radiology Results: ITS Impressions Chest X-Ray 07/23/20 01:17 IMPRESSION: Limited portable study with mild atelectasis at the lung bases; otherwise no active cardiopulmonary disease Abdomen/Pelvis CT 07/23/20 21:48 IMPRESSION: Subcutaneous emphysema of the left lateral abdominal wall subcuta
[2020-07-24] VITALS: BP 121/68; PULSE 85; RESP 18; TEMP 36.7; O2SAT 99
--- NOTE | 2020-07-24 02:11 | PC.NURSE ---
[id number] Orders placed for medications, labs and CT scan per myself and Kezia Jo, charge nurse. 2121 Medications verified per pharmacy. 2124 Medications given to patient, Dr. Garcia on the floor to see patient. 2129 Transported patient to radiology for CT scan per wheelchair. 2149 Returned to floor with patient from CT scan. 2149 Dr. Garcia in patient's room and states she will need to go back to surgery as he believes she has some internal bleeding but will await final report from CT scan; patient notifying family of possible surgery. 2211 Dr. Garcia back to see patient to discuss surgery again with patient as family is upset and would like her transferred to [place]. He spoke with family on the phone (patient's stepmother who is an RN). Family and patient agree to stay here for surgery. 2235 Dr. Garcia came back to patient's room and stated final CT report shows no bleeding, only gas and normal fluid in abdomen so surgery is no longer needed. He also talked with patient's mother, Danyelle on the phone and advised we will continue to work on pain control, anxiety and monitor patient as her vital signs and condition is stable other than pain. Patient also having less pain now and seems to be more relaxed.
[2020-07-24] MEDS: SIMETHICONE 80 MG TAB.CHEW PO ×3 (02:56→11:26)
[2020-07-24] MEDS: oxyCODONE/ACETAMINOPHEN (*CRX) 5-325 MG TABLET 2 TABLET PO ×2 (02:56→07:45)
[2020-07-24 05:00] VITALS: BP 122/75; PULSE 84; RESP 18; TEMP 36.7; O2SAT 98
[2020-07-24] MEDS: KETOROLAC 30 MG/ML VIAL (*BKC) IV PUSH ×2 (05:34→11:26)
[2020-07-24] MEDS: LORazepam (*CRX) 0.5 MG TABLET 1 MG PO (07:46)
[2020-07-24 08:00] VITALS: BP 124/73; PULSE 73; RESP 18; TEMP 36.6; O2SAT 100
[2020-07-24 12:30] VITALS: BP 120/70; PULSE 76; RESP 20; TEMP 36.4; O2SAT 100
--- NOTE | 2020-07-24 12:43 | PM.GYNPNOP ---
BERRY PLANTER - A/P Assessment and plan (1) Post-op pain: Code(s): G89.18 - Other acute postprocedural pain Status: Acute Assessment and Plan: Improved postoperative pain, ready to be discharged., patient will follow-up in 4 days. Postoperative Procedures: Procedures Operation Date: 07/23/20 23:00 <No data on this case meets the specified criteria> Time Spent With Patient Time: Total time spent is greater than 50% in coordination of care (as documented) at patient's floor/unit and/or counseling patient: Time with patient: 15 - 25 minutes BERRY PLANTER- PN:Subj Post-Op Subjective Date/time seen: 07/24/20 12:43 Dramatically improved upper abdominal and shoulder pain, no shortness of breath, no chest pain, no nausea vomiting, fever, chills. Exam Const: General: healthy appearing, comfortable and no acute distress Resp: Auscultation: clear to auscultation bilaterally, no rales, no rhonchi and no wheezes Cardio: Rate: regular rate Heart sounds: no click, no murmurs and no rubs GI: Inspection: non-distended Auscultation: normal bowel sounds Extrem: General: normal to inspection, no pedal edema and no calf tenderness BERRY PLANTER - PN: Obj Data Vital Signs Vital Signs: Vital Signs - 24 hr 07/23/20 13:25 07/23/20 17:48 07/23/20 19:30 Temperature 97.8 F 98.7 F 98.1 F Pulse Rate 92 84 84 Respiratory Rate 20 20 18 Blood Pressure 114/62 125/75 135/80 Pulse Oximetry 99 99 07/24/20 00:00 07/24/20 05:00 07/24/20 08:00 Temperature 98.0 F 98.1 F 97.8 F Pulse Rate 85 84 73 Respiratory Rate 18 18 18 Blood Pressure 121/68 122/75 124/73 Pulse Oximetry 99 98 100 Intake/Output Intake/Output: Intake & Output 07/21/20 07/22/20 07/23/20 07/24/20 23:59 23:59 23:59 23:59 Intake Total 1000 Output Total 175 Balance 825 Meds/Results Medications: Active Medications Generic Name Dose Route Start Last Admin Trade Name Freq PRN Reason Stop Dose Admin Fentanyl Citrate 100 mcg 07/23/20 03:18 07/23/20 18:53 Fentanyl Citrate Inj (*Crx) 100 Mcg/2 Ml Vial IV PUSH 100 mcg Q2HR PRN Administration Pain Rated 7-10 Ketorolac Tromethamine 30 mg 07/23/20 01:56 07/24/20 11:26 Ketorolac 30 Mg/Ml Vial (*Bkc) IV PUSH 07/28/20 01:57 30 mg Q6H PRN Administration Pain Rated 4-6 Lorazepam 1 mg 07/24/20 09:00 07/24/20 07:46 Lorazepam (*Crx) 0.5 Mg Tablet PO 1 mg TID AARTI Administration Ondansetron HCl 4 mg 07/23/20 01:56 Ondansetron Inj 4 Mg/2 Ml Vial IV PUSH Q4H PRN Nausea Oxycodone/Acetaminophen 2 tablet 07/23/20 20:50 07/24/20 07:45 Oxycodone/Acetaminophen (*Crx) 5-325 Mg Tablet PO 2 tablet Q4H PRN Administration Pain Rated 7-10 Simethicone 80 mg 07/23/20 10:14 07/24/20 11:26 Simethicone 80 Mg Tab.Chew PO 80 mg Q2HR PRN Administration Gas Discomfort Radiology Results: ITS Impressions Chest X-Ray 07/23/20 01:17 IMPRESSION: Limited portable study with mild atelectasis at the lung bases; otherwise no active cardiopulmonary disease Abdomen/Pelvis CT 07/23/20 21:48 IMPRESSION: Subcutaneous emphysema of the left lateral abdominal wall subcutaneous tissues and musculature and mild intraperitoneal air; given the history of surgery yesterday, these findings may be postoperative. Clinical correlation is advised Additionally, there is some soft tissue stranding around the ovaries and adnexal areas. Labs CBC & Chem 7: 07/23/20 21:17 07/23/20 01:11 Labs: Laboratory Results - last 24 hr 07/23/20 07/23/20 21:17 22:31 WBC 10.6 H RBC 3.52 L Hgb 10.5 L Hct 31.7 L MCV 90.1 MCH 29.8 MCHC 33.1 RDW 11.4 L Plt Count 283 MPV 9.0 Immature Gran % (Auto) 0.5 Neut % (Auto) 58.6 Lymph % (Auto) 31.1 [place] % (Auto) 7.9 Eos % (Auto) 1.2 Baso % (Auto) 0.7 Lymph # (Auto) 3.28 H [place] # (Auto) 0.8 H Eos # (Auto) 0.1 Baso # (Auto) 0.1 Abs Immat Gran (auto)
--- NOTE | 2020-07-24 12:47 | P.DS_ITS ---
DS: Admitting Diagnosis Admitting Diagnosis Admitting Diagnosis: Postoperative pain DS: Discharge Diagnosis Discharge Diagnosis (1) Post-op pain: Code(s): G89.18 - Other acute postprocedural pain Status: Acute DS: Summary Hospital Course Hospital Course: Patient was admitted on postoperative day 0 through the emergency department for postoperative pain. She had upper abdominal and shoulder pain. She was post laparoscopic resection of endometriosis and ovarian cyst. Her pain continued to be severe through the 1st 24 hours. After 24 hours her pain began to improve. Anxiety was a factor in her pain perception. Treating her anxiety helped her pain. On postoperative day 2., hospital day 2. She will be discharged home. She is stable. Her vital signs have been stable throughout her stay. She was afebrile, tolerating p.o. throughout her stay as well. Status at Discharge Functional status at discharge: independent ambulation Time Spent with Patient Time attestation: Total time spent providing and/or coordinating discharge services: DS: Data Data Completed and Pending Labs on day of discharge: Labs from last 24 hours 07/23/20 07/23/20 22:31 21:17 WBC 10.6 H RBC 3.52 L Hgb 10.5 L Hct 31.7 L MCV 90.1 MCH 29.8 MCHC 33.1 RDW 11.4 L Plt Count 283 MPV 9.0 Immature Gran % (Auto) 0.5 Neut % (Auto) 58.6 Lymph % (Auto) 31.1 [place] % (Auto) 7.9 Eos % (Auto) 1.2 Baso % (Auto) 0.7 Lymph # (Auto) 3.28 H [place] # (Auto) 0.8 H Eos # (Auto) 0.1 Baso # (Auto) 0.1 Abs Immat Gran (auto) 0.05 H Absolute Neuts (auto) 6.2 Absolute Nucleated RBC 0.0 Nucleated RBC % 0.0 PT 12.7 INR 0.9 APTT 25.3 Discharge Plan Discharge Discharging Clinician: Aubree Garcia Patient Disposition: Home, Self-Care Activity: pelvic rest Diet: regular Patient Instructions: Antibiotic Form Stand Alone Forms: General Discharge Information Follow-up/Referrals: Aubree Garcia MD [Physician] - Discharge Medications: New oxycodone-acetaminophen 5-325 mg tablet 1 tablet PO Q4H PRN (Reason: pain) Qty: 25 RF: 0 Continued levothyroxine [Euthyrox] 50 mcg tablet 50 mcg PO DAILY RF: 0 Discontinued hydrocodone-acetaminophen 5-325 mg tablet 1 - 2 tablet PO Q4H PRN (Reason: pain) Qty: 20 RF: 0 Date of admission: 07/24/20 11:46 Primary Care Provider: Robby Torres Admitting Provider: Aurbee Garcia Attending physician on admission: Aubree Garcia Condition: Stable
--- NOTE | 2020-07-24 13:10 | PC.NURSE ---
Discharge instructions given to pt. Pt. states she has appt. to see Dr. Garcia on 2020. No questions or concerns voiced. Very pleasant and cooperative. here for discharge.
== END 2020-07-24 13:18 | disposition home or self-care (01) ==
LOC: ANHED 07-23 02:00 → ANHOB2 07-23 02:18
PROVIDERS: Admitting Provider Obstetrics & Gynecology; Emergency Provider Emergency Medicine; PCP Emergency Medicine; Visit Provider Obstetrics & Gynecology
DX: G89.18 Other acute postprocedural pain (principal); M25.511 Pain in right shoulder; R10.10 Upper abdominal pain, unspecified
CPT/HCPCS: 36415; 71045; 74176; 80053; 83690; 85025; 85610; 85730; 88305; 96361; 96374; 96375; 96376; 99285; A9270; C9803; G0378; J0330; J1100; J1170; J1885; J2250; J2405; J2704; J3010; J7030; J7120; Q9968; U0003; U0005

== ENCOUNTER 2020-07-28 15:19 | Outpatient (CLI) | payer OTHER, SELFPAY ==
--- NOTE | ~2020-07-28 | CT_ITS ---
EXAMINATION: CT diagnostic chest w con EXAM DATE: 07/28/2020 16:02 INDICATION: Shortness of breath. Chest pain. Recent laparoscopic surgery. TECHNIQUE: Spiral CT of the chest following intravenous injection of 75 mL Omnipaque 350. Axial, cor onal and sagittal images were reviewed. Coronal maximum intensity pixel images of chest reviewed. Neil souza dose-length product (DLP) for this examination was 329.98 mGy-cm. The exposure was tailored accor ding to patient size (auto mA exposure control), and iterative reconstruction (ASIR) was used as camelia tional dose reduction technique. Correlation is made to CT abdomen pelvis 07/23/2020. FINDINGS: The lungs are clear. No central pulmonary emboli. No evidence of upper abdominal free intr aperitoneal gas, has resolved compared to CT scan from last week. There are no pleural or pericardial effusions. Tracheobronchial tree is patent. There is no mediastinal, hilar or axillary lymphaden opathy. There is no pneumothorax. Heart normal in size. No evidence of coronary arterial calcif ication. Upper abdomen is unremarkable. The bones are unremarkable. IMPRESSION: No acute cardiopulmonary findings. Reviewed, dictated and finalized at location A.
== END 2020-07-28 15:20 | disposition home or self-care (01) ==
PROVIDERS: PCP Emergency Medicine; Visit Provider Obstetrics & Gynecology
DX: R07.89 Other chest pain (principal)
CPT/HCPCS: 71260; Q9967

== ENCOUNTER 2020-12-18 18:40 | Emergency (ER) | payer OTHER, SELFPAY ==
[2020-12-18 18:52] VITALS: BP 134/82; PULSE 88; RESP 16; TEMP 37.7; O2SAT 100
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
== END 2020-12-18 19:02 | disposition home or self-care (01) ==
PROVIDERS: Emergency Provider Nurse Practitioner Family; PCP Emergency Medicine
DX: H66.91 Otitis media, unspecified, right ear (principal); H60.91 Unspecified otitis externa, right ear; F41.9 Anxiety disorder, unspecified
CPT/HCPCS: 99213; G0463

== ENCOUNTER 2021-03-17 21:05 | Emergency (ER) | payer OTHER, SELFPAY ==
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
[2021-03-17 21:11] VITALS: BP 127/82; PULSE 84; RESP 18; TEMP 36.1; O2SAT 100
[2021-03-17 21:23] VITALS: BP 139/93; PULSE 86; RESP 18; O2SAT 100
[2021-03-17] MEDS: HYDROcodone/acetaminophen (*CRX) 5-325 MG TABLET 1 TAB PO (22:59)
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
[2021-03-17 23:38] VITALS: BP 147/84; PULSE 79; RESP 18; O2SAT 100
== END 2021-03-17 23:40 | disposition home or self-care (01) ==
PROVIDERS: Emergency Provider Family Medicine; PCP Internal Medicine
DX: S16.1XXA Strain of muscle, fascia and tendon at neck level, initial encounter (principal); F41.9 Anxiety disorder, unspecified; K21.9 Gastro-esophageal reflux disease without esophagitis; E03.9 Hypothyroidism, unspecified; V43.52XA Car driver injured in collision with other type car in traffic accident, initial encounter
CPT/HCPCS: 72125; 99284; A9270

== ENCOUNTER 2021-06-27 16:23 | Emergency (ER) | payer OTHER, SELFPAY ==
--- NOTE | ~2021-06-27 | XR_ITS ---
EXAMINATION: XR ankle RT min 3V, XR foot RT min 3V DATE: 06/27/2021 16:45 INDICATION: Right foot and ankle pain post injury TECHNIQUE: 1. Anteroposterior, mortise, additional oblique and lateral view of the right ankle were obtained. 2. Dorsoplantar, two oblique and lateral views of the right foot were obtained. COMPARISON: None. FINDINGS: Alignment of the foot and ankle is normal. Nondisplaced intra-articular fracture at the base of the r ight fourth metatarsal. Joint spaces are well maintained. No ankle joint effusion. Soft tissue swelli ng at the dorsolateral midfoot. IMPRESSION: 1. Nondisplaced intra-articular fracture at the base of the right fourth metatarsal. Reviewed, dictated and finalized at location A. ER SOCK IMPRESSION: 1. Nondisplaced intra-articular fracture at the base of the right fourth metata rsal.
[2021-06-27 16:29] VITALS: BP 118/91; PULSE 106; RESP 16; TEMP 37.4; O2SAT 99
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
--- NOTE | 2021-06-27 16:48 | PC.NURSE ---
PT TAKEN TO RADIOLOGY AND ROOM IN WHEELCHAIR
== END 2021-06-27 17:10 | disposition home or self-care (01) ==
PROVIDERS: Emergency Provider Nurse Practitioner Family; PCP Internal Medicine
DX: S93.401A Sprain of unspecified ligament of right ankle, initial encounter (principal); S96.911A Strain of unspecified muscle and tendon at ankle and foot level, right foot, initial encounter; S92.344A Nondisplaced fracture of fourth metatarsal bone, right foot, initial encounter for closed fracture; X50.9XXA Other and unspecified overexertion or strenuous movements or postures, initial encounter; K21.9 Gastro-esophageal reflux disease without esophagitis; E03.9 Hypothyroidism, unspecified
CPT/HCPCS: 73610; 73630; 99213; G0463

== ENCOUNTER → 2021-07-13 09:36 | Outpatient (CLI) | payer OTHER, SELFPAY ==
--- NOTE | ~2021-07-13 | CT_ITS ---
EXAMINATION: CT foot RT wo con DATE: 07/13/2021 10:07 INDICATION: Pain and limited range of motion at the right great toe TECHNIQUE: High resolution computed tomography (CT) of the right foot and ankle was performed without intravenous contrast. Additional sagittal and coronal reconstructions were performed. Automated expo sure control and iterative reconstruction technique were employed. The dose-length product was 182.36 mGy-cm. COMPARISON: Right foot radiographs dated 07/01/2021 FINDINGS: Is a nondisplaced oblique intra-articular fracture at the base of the fourth metatarsal with no signi ficant fracture gap or incongruity at the articular surface. Tiny avulsion fractures along the dorsal margins of the distal cuboid, lateral, middle and medial cuneiforms. The alignment and joint space. Lisfranc joint remains normal. No other fractures identified. Likely osteoarthritis related subarticu lar cystic change along the medial margin of the lateral malleolus along its articulation with the ta lar dome. Mild osteoarthritis at the third tarsal metatarsal joint with mild subarticular cystic blake ge at both sides of the plantar aspect of the joint. Fusiform thickening of the peroneus longus and b tika tendons consistent with at least mild tendinopathy at the level of the distal tip of the latera l malleolus. Soft tissue swelling with subcutaneous edema over the dorsum of the midfoot. IMPRESSION: 1. Lisfranc joint injury with avulsion fractures along the dorsal rims of the distal margin of the cu boid, medial, middle and lateral cuneiforms and nondisplaced interarticular fracture at the base of t he fourth metatarsal. Alignment remains essentially anatomic. 2. Peroneus longus and brevis tendinopathy. Reviewed, dictated and finalized at location A. N YARD DRIER IMPRESSION: 1. Lisfranc joint injury with avulsion fractures along the dorsal rims of the d istal margin of the cuboid, medial, middle and lateral cuneiforms and nondispla lobito interarticular fracture at the base of the fourth metatarsal. Alignment rem ains essentially anatomic. 2. Peroneus longus and brevis tendinopathy.
== END ==
PROVIDERS: Visit Provider Orthopaedic Surgery
DX: S92.211A Displaced fracture of cuboid bone of right foot, initial encounter for closed fracture (principal); S92.221A Displaced fracture of lateral cuneiform of right foot, initial encounter for closed fracture; S92.241A Displaced fracture of medial cuneiform of right foot, initial encounter for closed fracture; S92.234A Nondisplaced fracture of intermediate cuneiform of right foot, initial encounter for closed fracture; S92.341A Displaced fracture of fourth metatarsal bone, right foot, initial encounter for closed fracture
CPT/HCPCS: 73700

== ENCOUNTER 2021-11-09 17:05 | Observation (INO) | payer OTHER, SELFPAY ==
[2021-11-09 17:28] VITALS: BP 133/64; PULSE 92
[2021-11-09 17:31] VITALS: BP 143/71; PULSE 91
--- NOTE | 2021-11-09 17:34 | OBADM ---
This patient, Yessica Mo, admitted to the OB room OB Post 115 for observation. Patient/family oriented to hospital policies and general routines including ID bracelet, bed and alarms, visiting hours, pain management, procedures, bathroom and other care routines, personal items, smoking policy, room service/diet, and visiting hours. Patient/Family are encouraged to report perceived risks to care and to ask questions if they do not understand what they are told or what they should do.
[2021-11-09 17:46] VITALS: BP 128/77; PULSE 98
[2021-11-09 18:00] VITALS: BP 129/67; PULSE 90
[2021-11-09 18:16] VITALS: BP 130/72; PULSE 90
[2021-11-09 18:31] VITALS: BP 124/72; PULSE 86
[2021-11-09 18:41] LABS: Appearance Urine Slightly Cloudy (Clear); Bilirubin Urine Negative (Negative); Blood Urine Negative (Negative); Color Urine Yellow (Yellow); Glucose Urine UA Negative (Negative); Ketones Urine Negative (Negative); Leukocyte Esterase Ur Trace LEU/UL (Negative); Nitrate Urine Negative (Negative); Protein Urine Negative (Negative)
[2021-11-09 18:52] LABS: Amorphous Sediment Urine Few; Bacteria Urine Trace /hpf; Mucus Urine Rare /lpf; Squamous Epithelial Cell Urine Few /hpf (Few)
[2021-11-09 18:54] LABS: Add Urine Microscopic? YES
--- NOTE | 2021-12-03 08:16 | PM.OBTRLD ---
OB - Triage/Final Diagnosis Visit Information Comments/Additional reasons for admission: I have assessed the risk for this patient, Yessica Mo, and determined that she would benefit from observation care. Evaluation Laboratory results: Laboratory Tests 11/09/21 17:27 Urine Color Yellow Urine Appearance Slightly cloudy Urine pH 7.0 Ur Specific [place] 1.020 Urine Protein Negative Urine Glucose (UA) Negative Urine Ketones Negative Ur Blood (Man) Negative Urine Nitrate Negative Urine Bilirubin Negative Urine Urobilinogen 1.0 Leukocyte Esterase Rfl Trace H Urine RBC 6-10 H Urine WBC 4-6 H Ur Squamous Epith Cells Few Amorphous Sediment Few H Urine Bacteria Trace Urine Mucus Rare Final Diagnosis (1) Uterine cramping: Code(s): N94.89 - Other specified conditions associated with female genital organs and menstrual cycle Status: Acute
== END 2021-11-09 19:10 | disposition home or self-care (01) ==
PROVIDERS: Admitting Provider Obstetrics & Gynecology; PCP Internal Medicine; Visit Provider Obstetrics & Gynecology
CPT/HCPCS: 81001; G0378; G0379

== ENCOUNTER 2021-11-17 17:56 | Outpatient (CLI) | payer OTHER, SELFPAY ==
[2021-11-17] VITALS (8 sets, daily range): BP systolic 103–115; BP diastolic 56–84; PULSE 88–96
[2021-11-17 18:33] LABS: Basophils Absolute Auto 0.1 K/mm3 (0.0-0.1); Basophils Percent Auto 0.4 % (0.2-1.2); Eosinophils Absolute Auto 0.1 K/mm3 (0-0.3); Eosinophils Percent Auto 0.5 % (0-4.4); Hematocrit 31.2 % (37.0-47.0); Hemoglobin 10.9 g/dL (12.0-15.0); Immature Granulocyte Absolute 0.11 K/mm3 (0.00-0.031); Immature Granulocyte Percent A 0.8 % (0-0.5); Lymphocytes Percent Auto 13.3 % (18.3-44.2); Mean Corpuscular HGB Conc 34.9 g/dl (32-36); Mean Corpuscular Hemoglobin 30.8 pg (26-34); Mean Corpuscular Volume 88.1 fl (80-100); Mean Platelet Volume 9.4 fl (7.4-10.4); Monocytes Percent Auto 6.6 % (2.6-8.5); Neutrophils Absolute Auto 11.2 K/mm3 (1.3-6.7); Neutrophils Percent Auto 78.4 % (45.5-73.1); Platelet Count Result 262 k/mm3 (150-375); Red Blood Count 3.54 M/mm3 (4.2-5.4); Red Cell Distribution Width 12.1 % (11.5-14.5); White Blood Count 14.3 K/mm3 (4.5-10.0)
[2021-11-17 18:40] LABS: Appearance Urine Clear (Clear); Bilirubin Urine Negative (Negative); Blood Urine Negative (Negative); Color Urine Yellow (Yellow); Glucose Urine UA Negative (Negative); Ketones Urine Negative (Negative); Leukocyte Esterase Ur Negative LEU/UL (NEGATIVE); Nitrate Urine Negative (Negative); Protein Urine Negative (Negative); Urobilinogen Urine 0.2 mg/dL (<2.0)
[2021-11-17 18:41] LABS: Creatinine Urine 63.6 mg/dL; Total Protein Urine Random 12 mg/dL; Ur Ttl Prot Creatinine Ratio 0.19 mg/mg (0-0.20)
[2021-11-17 18:44] LABS: Add Urine Microscopic? NO; Alanine Aminotransferase 18 U/L (6-35); Albumin Level 3.7 g/dL (3.5-5.1); Alkaline Phosphatase 56 U/L (38-126); Anion Gap 4 mmol/L (8-16); Aspartate Amino Transferase 19 U/L (14-36); Bilirubin,Total < 0.1 mg/dL (0.2-1.3); Blood Urea Nitrogen 8 mg/dL (7-17); Calcium 8.8 mg/dL (8.4-10.2); Carbon Dioxide 24 mmol/L (22-30); Chloride 108 mmol/L (98-107); Estimated Glomerular Filt Rate > 60; Glucose 95 mg/dL (65-110); Potassium 3.7 mmol/L (3.4-5.0); Sodium 136 mmol/L (137-145)
--- NOTE | 2021-11-17 19:20 | PC.NURSE ---
called Shabnam Bryant and notified pt admission for HIP evaluation. PIH lab result and BP reported. order received for headache medication. okay to discharge
[2021-11-17] MEDS: ACETAMINOPHEN/BUTALBITAL/CAFFEINE 325-50-40 MG TABLET (FIORICET) 2 TAB PO (19:50)
== END 2021-11-17 19:51 | disposition home or self-care (01) ==
LOC: ANHOBOP 18:00 → ANHOBPP 18:01
PROVIDERS: PCP Internal Medicine; Visit Provider Advanced Practice Midwife
DX: O13.2 Gestational [pregnancy-induced] hypertension without significant proteinuria, second trimester (principal); Z3A.22 22 weeks gestation of pregnancy
CPT/HCPCS: 36415; 59025; 80053; 81003; 82570; 84156; 84550; 85025; 87086; 99199; A9270

== ENCOUNTER 2022-01-15 21:30 | Observation (INO) | payer OTHER, SELFPAY ==
[2022-01-15] VITALS (14 sets, daily range): BP systolic 112–125; BP diastolic 66–72; PULSE 75–104; RESP 16; TEMP 36.4; O2SAT 98–100; BMI 38.9
[2022-01-15] MEDS: TERBUTALINE SULFATE 1 MG/ML VIAL 0.25 MG SUB-Q (22:55)
--- NOTE | 2022-01-15 22:59 | OBADM ---
This patient, Yessica Mo, admitted to the OB room Labor/Delivery/Recovery 105 for observation. Patient/family oriented to hospital policies and general routines including ID bracelet, bed and alarms, visiting hours, pain management, procedures, bathroom and other care routines, personal items, smoking policy, room service/diet, and visiting hours. Patient/Family are encouraged to report perceived risks to care and to ask questions if they do not understand what they are told or what they should do.
[2022-01-15 23:26] LABS: Appearance Urine Clear (Clear); Bilirubin Urine Negative (Negative); Blood Urine Negative (Negative); Color Urine Yellow (Yellow); Glucose Urine UA Negative (Negative); Ketones Urine Negative (Negative); Leukocyte Esterase Ur Negative LEU/UL (Negative); Nitrate Urine Negative (Negative); Protein Urine Negative (Negative); Urobilinogen Urine 0.2 mg/dL (<2.0)
[2022-01-15 23:32] LABS: Add Urine Microscopic? NO; Bacteria Urine Trace /hpf; Mucus Urine Rare /lpf; RBC Urine 0-2 /hpf (0-2); Squamous Epithelial Cell Urine Rare /hpf (Few); WBC Urine 0-3 /hpf
[2022-01-17 19:23] LABS: Fetal Fibronectin Negative
--- NOTE | 2022-01-26 10:21 | P.PNOB_ITS ---
OB - Triage/Final Diagnosis Visit Information Comments/Additional reasons for admission: I have assessed the risk for this patient, Yessica Mo, and determined that she would benefit from observation care. Evaluation Laboratory results: Laboratory Tests 01/15/22 01/17/22 23:08 16:35 Urine Color Yellow Urine Appearance Clear Urine pH 7.0 Ur Specific [place] 1.010 Urine Protein Negative Urine Glucose (UA) Negative Urine Ketones Negative Ur Blood (Man) Negative Urine Nitrate Negative Urine Bilirubin Negative Urine Urobilinogen 0.2 Leukocyte Esterase Rfl Negative Urine RBC 0-2 Urine WBC 0-3 Ur Squamous Epith Cells Rare Urine Bacteria Trace Urine Mucus Rare Fibronectin Negative Final Diagnosis (1) uterine contractions: Code(s): O47.00 - False labor before 37 completed weeks of gestation, unspecified trimester Status: Acute
== END 2022-01-16 00:20 | disposition home or self-care (01) ==
PROVIDERS: Obstetrics & Gynecology; Admitting Provider Obstetrics & Gynecology; PCP Internal Medicine; Referring Provider Advanced Practice Midwife; Visit Provider Obstetrics & Gynecology
DX: O47.00 False labor before 37 completed weeks of gestation, unspecified trimester (principal); Z3A.30 30 weeks gestation of pregnancy
CPT/HCPCS: 81003; 82731; 96372; G0378; G0379; J3105

== ENCOUNTER 2022-01-21 14:12 | Observation (INO) | payer OTHER, SELFPAY ==
--- NOTE | 2022-01-21 14:48 | PC.NURSE ---
Called Shabnam Bryant about patient here in department. Reported patients contraction pattern 2-5 minutes apart. Orders to give Terbutaline and do an SVE on patient.
[2022-01-21] MEDS: TERBUTALINE SULFATE 1 MG/ML VIAL 0.25 MG SUB-Q (15:10)
[2022-01-21 16:21] VITALS: BP 149/75; PULSE 97
--- NOTE | 2022-01-21 16:31 | PC.NURSE ---
Called Shabnam Bryant with no contractions for over an hour with patient. Her 3 BP while here. Cindi gave orders for her to Take Procardia as currently prescribed and No work Monday and Monday. Keep her scheduled apartment on Monday.
--- NOTE | 2022-01-21 16:35 | LDADM ---
This patient, Yesisca Mo, was admitted to OB Post 116 on 01/21/22 at 14:12. Plans for labor, pain management and were discussed with patient. Patient/family oriented to hospital policies and general routines including ID bracelet, bed and alarms, visiting hours, pain management, procedures, bathroom and other care routines, personal items, smoking policy, room service/diet and guest tray routines, infant security routines, and visiting hours. Patient/Family are encouraged to report perceived risks to care and to ask questions if they do not understand what they are told or what they should do. See OBIX for further documentation.
--- NOTE | 2022-01-25 19:01 | PM.OBTRLD ---
OB - Triage/Final Diagnosis Visit Information Date of evaluation: 01/21/22 Reason for evaluation: threatened labor Comments/Additional reasons for admission: I have assessed the risk for this patient, Yessica Mo, and determined that she would benefit from observation care.
== END 2022-01-21 16:43 | disposition home or self-care (01) ==
LOC: ANHOBPP 15:02
PROVIDERS: Admitting Provider Obstetrics & Gynecology; PCP Internal Medicine; Referring Provider Advanced Practice Midwife; Visit Provider Obstetrics & Gynecology
DX: O47.9 False labor, unspecified (principal); Z3A.00 Weeks of gestation of pregnancy not specified
CPT/HCPCS: 96372; G0378; G0379; J3105

== ENCOUNTER 2022-02-11 13:54 | Observation (INO) | payer OTHER, SELFPAY ==
--- NOTE | 2022-02-11 13:54 | OBADM ---
This patient, Yessica Mo, admitted to the OB room OB Post 116 for observation. Patient/family oriented to hospital policies and general routines including ID bracelet, bed and alarms, visiting hours, pain management, procedures, bathroom and other care routines, personal items, smoking policy, room service/diet, and visiting hours. Patient/Family are encouraged to report perceived risks to care and to ask questions if they do not understand what they are told or what they should do.
[2022-02-11 14:05] VITALS: BP 126/82; PULSE 102
[2022-02-11 14:16] VITALS: BP 124/77; PULSE 93
[2022-02-11 14:25] VITALS: BMI 39.9
[2022-02-11 14:31] VITALS: BP 123/67; PULSE 89
[2022-02-11 14:33] LABS: Add Urine Microscopic? YES; Appearance Urine Cloudy (Clear); Bacteria Urine 4+ /hpf; Bilirubin Urine Negative (Negative); Blood Urine Negative (Negative); Color Urine Yellow (Yellow); Glucose Urine UA Negative (Negative); Ketones Urine Negative (Negative); Leukocyte Esterase Ur 1+ LEU/UL (NEGATIVE); Mucus Urine Rare /lpf; Nitrate Urine Negative (Negative); Protein Urine Negative (Negative); RBC Urine 0-2 /hpf (0-2); Specific Grav Ur 1.013 (1.001-1.035); Squamous Epithelial Cell Urine Few /hpf (Few); Urobilinogen Urine Negative mg/dL (<2.0); WBC Urine 0-3 /hpf (0-3)
[2022-02-11 14:46] VITALS: BP 126/74; PULSE 103
[2022-02-11] MEDS: TERBUTALINE SULFATE 1 MG/ML VIAL 0.25 MG SUB-Q (15:10)
--- NOTE | 2022-03-07 21:40 | PM.OBTRLD ---
OB - Triage/Final Diagnosis Visit Information Comments/Additional reasons for admission: I have assessed the risk for this patient, Yessica Mo, and determined that she would benefit from observation care. Evaluation Laboratory results: Laboratory Tests 02/11/22 14:20 Urine Color Yellow Urine Appearance Cloudy H Urine pH 7.0 Ur Specific [place] 1.013 Urine Protein Negative Urine Glucose (UA) Negative Urine Ketones Negative Ur Blood (Man) Negative Urine Nitrate Negative Urine Bilirubin Negative Urine Urobilinogen Negative Ur Leukocyte Esterase 1+ H Urine RBC 0-2 Urine WBC 0-3 Ur Squamous Epith Cells Few Urine Bacteria 4+ H Urine Mucus Rare Final Diagnosis (1) False labor: Code(s): O47.9 - False labor, unspecified Status: Acute
== END 2022-02-11 16:35 | disposition home or self-care (01) ==
PROVIDERS: Advanced Practice Midwife; Admitting Provider Obstetrics & Gynecology; PCP Internal Medicine; Visit Provider Obstetrics & Gynecology
DX: O47.03 False labor before 37 completed weeks of gestation, third trimester (principal); Z3A.34 34 weeks gestation of pregnancy
CPT/HCPCS: 81001; 96372; G0378; G0379; J3105

== ENCOUNTER 2022-02-16 17:30 | Outpatient (CLI) | payer OTHER, SELFPAY ==
[2022-02-16 18:07] VITALS: BP 119/71; PULSE 94
[2022-02-16 18:15] VITALS: BP 123/72; PULSE 87
[2022-02-16 18:17] LABS: Basophils Absolute Auto 0.1 K/mm3 (0.0-0.1); Basophils Percent Auto 0.4 % (0.2-1.2); Eosinophils Absolute Auto 0.1 K/mm3 (0-0.3); Eosinophils Percent Auto 0.6 % (0-4.4); Hematocrit 34.9 % (37.0-47.0); Hemoglobin 11.6 g/dL (12.0-15.0); Immature Granulocyte Absolute 0.17 K/mm3 (0.00-0.031); Immature Granulocyte Percent A 1.3 % (0-0.5); Lymphocytes Absolute Auto 1.88 K/mm3 (0.9-3.2); Lymphocytes Percent Auto 14.8 % (18.3-44.2); Mean Corpuscular HGB Conc 33.2 g/dl (32-36); Mean Corpuscular Volume 87.3 fl (80-100); Mean Platelet Volume 9.7 fl (7.4-10.4); Monocytes Percent Auto 7.6 % (2.6-8.5); Neutrophils Absolute Auto 9.5 K/mm3 (1.3-6.7); Neutrophils Percent Auto 75.3 % (45.5-73.1); Platelet Count Result 273 k/mm3 (150-375); White Blood Count 12.7 K/mm3 (4.5-10.0)
[2022-02-16 18:19] LABS: Add Urine Microscopic? NO; Appearance Urine Clear (Clear); Bilirubin Urine Negative (Negative); Blood Urine Negative (Negative); Color Urine Straw (Yellow); Glucose Urine UA Negative (Negative); Ketones Urine Negative (Negative); Leukocyte Esterase Ur Negative LEU/UL (NEGATIVE); Nitrate Urine Negative (Negative); Protein Urine Negative (Negative); Specific Grav Ur 1.011 (1.001-1.035); Urobilinogen Urine Negative mg/dL (<2.0)
[2022-02-16 18:24] LABS: Creatinine Urine 41.8 mg/dL; Total Protein Urine Random 9 mg/dL; Ur Ttl Prot Creatinine Ratio 0.22 mg/mg (0-0.20)
[2022-02-16 18:30] VITALS: BP 121/65; PULSE 94
[2022-02-16 18:41] LABS: Alanine Aminotransferase 14 U/L (6-35); Albumin Level 3.5 g/dL (3.5-5.1); Alkaline Phosphatase 137 U/L (38-126); Anion Gap 8 mmol/L (8-16); Aspartate Amino Transferase 16 U/L (14-36); Bilirubin,Total 0.3 mg/dL (0.2-1.3); Blood Urea Nitrogen 4 mg/dL (7-17); Calcium 8.7 mg/dL (8.4-10.2); Carbon Dioxide 20 mmol/L (22-30); Chloride 106 mmol/L (98-107); Estimated Glomerular Filt Rate > 60; Glucose 126 mg/dL (65-110); Potassium 3.8 mmol/L (3.4-5.0); Sodium 134 mmol/L (137-145); Uric Acid 3.3 mg/dL (2.5-7.5)
[2022-02-16 18:45] VITALS: BP 133/75; PULSE 91
[2022-02-16 18:54] VITALS: PULSE 94
== END 2022-02-16 18:54 | disposition home or self-care (01) ==
LOC: ANHOBOP 17:35 → ANHOBPP 17:36
PROVIDERS: Advanced Practice Midwife; PCP Internal Medicine; Visit Provider Obstetrics & Gynecology
DX: O13.3 Gestational [pregnancy-induced] hypertension without significant proteinuria, third trimester (principal); Z3A.35 35 weeks gestation of pregnancy
CPT/HCPCS: 36415; 59025; 80053; 81003; 82570; 84156; 84550; 85025; 87086; 87088; 99199

== ENCOUNTER 2022-02-17 17:37 | Outpatient (CLI) | payer OTHER, SELFPAY ==
[2022-02-17 17:37] VITALS: BMI 40.7
[2022-02-17 18:13] LABS: Collection Time Urine 24 HOURS
[2022-02-17 18:15] LABS: Total Volume 24 Hour Urine 3900 ml
[2022-02-17 18:19] LABS: Specific Gravity Ur 1.015; Total Volume 24 Hour Urine 3900 ml
[2022-02-17 18:31] LABS: Total Protein Urine 24 Hr 351 mg/24hr (28-141); Total Protein Urine Random 9 mg/dL
[2022-02-17 18:32] LABS: Creatinine Clearance Urine 209.2 ml/min (75-125); Creatinine Urine 47.9 mg/dL; Patient Weight 244 Lbs
== END 2022-02-17 17:38 | disposition home or self-care (01) ==
LOC: ANHOBOP 17:43
PROVIDERS: PCP Internal Medicine; Visit Provider Advanced Practice Midwife
DX: O13.9 Gestational [pregnancy-induced] hypertension without significant proteinuria, unspecified trimester (principal); Z3A.00 Weeks of gestation of pregnancy not specified
CPT/HCPCS: 81050; 82575; 84156

== ENCOUNTER 2022-02-18 14:56 | Observation (INO) | payer OTHER, SELFPAY ==
--- NOTE | ~2022-02-18 | US_ITS ---
EXAMINATION: US OB limited w BPP DATE: 02/18/2022 17:01 INDICATION: decelerations during third trimester TECHNIQUE: Real-time pelvic ultrasound was performed. The interpreting radiologist was not present fo r the study. COMPARISON: None. FINDINGS: There is a single living fetus in vertex presentation. The placenta is anterior. heart rate is 147 beats per minute (bpm). The amniotic fluid index is 21.0 cm which is normal (normal range: 7.9 cm to 24.9 cm). Biophysical profile performed by the technologist: breathing (30 sec sustained breathing in 30 minutes): 2 out of 2 movement (3 gross body movements in 30 minutes): 2 out of 2 tone (one episode of bbbmyac-[id number]-[id number] limb movement): 2 out of 2 Amniotic fluid pocket (2 cm): 2 out of 2 Total score: 8 out of 8 IMPRESSION: 1. Single living fetus in vertex presentation. 2. Biophysical profile 8 out of 8. Reviewed, dictated and finalized at location F.
[2022-02-18 16:34] VITALS: PULSE 87; O2SAT 100
--- NOTE | 2022-02-18 16:45 | PC.NURSE ---
1555-called Shabnam Bryant CNM notifying of patients tracing, order BPP and ERLINDA. 1613- Shabnam Bryant CNM on unit, reviewed tracing. Okay to discharge if BPP is 8/8.
[2022-02-18 17:16] VITALS: BMI 41.1
--- NOTE | 2022-02-18 17:16 | OBADM ---
This patient, Yessica Mo, admitted to the OB room OB Post 113 for observation. Patient/family oriented to hospital policies and general routines including ID bracelet, bed and alarms, visiting hours, pain management, procedures, bathroom and other care routines, personal items, smoking policy, room service/diet, and visiting hours. Patient/Family are encouraged to report perceived risks to care and to ask questions if they do not understand what they are told or what they should do.
[2022-02-18 17:20] VITALS: BP 133/78; PULSE 98
--- NOTE | 2022-02-21 19:48 | PM.OBTRLD ---
OB - Triage/Final Diagnosis Visit Information Date of evaluation: 02/18/22 Reason for evaluation: threatened labor Comments/Additional reasons for admission: I have assessed the risk for this patient, Yessica Mo, and determined that she would benefit from observation care.
== END 2022-02-18 17:22 | disposition home or self-care (01) ==
PROVIDERS: Admitting Provider Obstetrics & Gynecology; PCP Internal Medicine; Referring Provider Advanced Practice Midwife; Visit Provider Obstetrics & Gynecology
DX: O47.9 False labor, unspecified (principal); Z3A.00 Weeks of gestation of pregnancy not specified
CPT/HCPCS: 59025; 76815; 76819; G0378; G0379

== ENCOUNTER 2022-02-22 00:33 | Observation (INO) | payer OTHER, SELFPAY ==
[2022-02-22] VITALS (7 sets, daily range): BP systolic 110–138; BP diastolic 54–83; PULSE 90–107; BMI 39.9
--- NOTE | 2022-02-22 01:40 | PC.NURSE ---
0137- called Shabnam Bryant CNM- informed of pt admission with c/o possible SROM, contractions, right rib pain, DFM. ROM plus negative. PO hydrating. orders received for CBC,CMP. continue to po hydrate and will call with results of labs.
[2022-02-22 02:00] LABS: Basophils Absolute Auto 0.1 K/mm3 (0.0-0.1); Basophils Percent Auto 0.4 % (0.2-1.2); Eosinophils Absolute Auto 0.1 K/mm3 (0-0.3); Eosinophils Percent Auto 0.5 % (0-4.4); Hematocrit 32.9 % (37.0-47.0); Hemoglobin 11.4 g/dL (12.0-15.0); Immature Granulocyte Percent A 0.8 % (0-0.5); Lymphocytes Absolute Auto 1.93 K/mm3 (0.9-3.2); Mean Corpuscular HGB Conc 34.7 g/dl (32-36); Mean Corpuscular Hemoglobin 28.9 pg (26-34); Mean Corpuscular Volume 83.3 fl (80-100); Mean Platelet Volume 9.6 fl (7.4-10.4); Monocytes Percent Auto 8.6 % (2.6-8.5); Neutrophils Absolute Auto 8.9 K/mm3 (1.3-6.7); Neutrophils Percent Auto 73.7 % (45.5-73.1); Platelet Count Result 265 k/mm3 (150-375); Red Blood Count 3.95 M/mm3 (4.2-5.4); Red Cell Distribution Width 11.9 % (11.5-14.5); White Blood Count 12.1 K/mm3 (4.5-10.0)
[2022-02-22 02:15] LABS: Alanine Aminotransferase 14 U/L (6-35); Albumin Level 3.5 g/dL (3.5-5.1); Alkaline Phosphatase 157 U/L (38-126); Anion Gap 5 mmol/L (8-16); Aspartate Amino Transferase 17 U/L (14-36); Bilirubin,Total 0.3 mg/dL (0.2-1.3); Blood Urea Nitrogen 5 mg/dL (7-17); Calcium 8.7 mg/dL (8.4-10.2); Carbon Dioxide 22 mmol/L (22-30); Chloride 107 mmol/L (98-107); Estimated Glomerular Filt Rate > 60; Glucose 104 mg/dL (65-110); Potassium 3.7 mmol/L (3.4-5.0); Sodium 134 mmol/L (137-145)
--- NOTE | 2022-02-22 02:38 | PC.NURSE ---
0216- CALLED Shabnam PRAKASH CN- LABS REVIEWED. FHT REVIEWED. ORDERS RECEIVED TO D/C PT HOME WITH INSTRUCTIONS TO INCREASE PO FLUIDS, INCREASE PERIODS OF REST, DISCUSSION HAD IN OFFICE ABOUT NO LONGER WORKING IF CONTINUES TO CONTRACT. PT PLANS ON CONTINUING TO WORK. PT HAS OV ON MON. WITH Shabnam PRAKASH. D/C ORDER RECEIVED.
--- NOTE | 2022-02-23 12:19 | PM.OBTRLD ---
OB - Triage/Final Diagnosis Visit Information Date of evaluation: 02/22/22 Reason for evaluation: decreased movement Comments/Additional reasons for admission: I have assessed the risk for this patient, Yessica Mo, and determined that she would benefit from observation care. Evaluation Laboratory results: Laboratory Tests 02/22/22 02/22/22 01:51 01:51 WBC 12.1 H RBC 3.95 L Hgb 11.4 L Hct 32.9 L MCV 83.3 MCH 28.9 MCHC 34.7 RDW 11.9 Plt Count 265 MPV 9.6 Immature Gran % (Auto) 0.8 H Neut % (Auto) 73.7 H Lymph % (Auto) 16.0 L [place] % (Auto) 8.6 H Eos % (Auto) 0.5 Baso % (Auto) 0.4 Lymph # (Auto) 1.93 [place] # (Auto) 1.0 H Eos # (Auto) 0.1 Baso # (Auto) 0.1 Abs Immat Gran (auto) 0.10 H Absolute Neuts (auto) 8.9 H Absolute Nucleated RBC 0.0 Nucleated RBC % 0.0 Sodium 134 L Potassium 3.7 Chloride 107 Carbon Dioxide 22 Anion Gap 5 L BUN 5 L Creatinine 0.50 L Estim Creat Clear Calc Not Reportable Estimated GFR > 60 Glucose 104 Calcium 8.7 Total Bilirubin 0.3 AST 17 ALT 14 Alkaline Phosphatase 157 H Total Protein 7.0 Albumin 3.5
== END 2022-02-22 02:35 | disposition home or self-care (01) ==
PROVIDERS: Advanced Practice Midwife; Admitting Provider Obstetrics & Gynecology; PCP Internal Medicine; Visit Provider Obstetrics & Gynecology
DX: O36.8130 Decreased fetal movements, third trimester, not applicable or unspecified (principal); Z3A.35 35 weeks gestation of pregnancy
CPT/HCPCS: 36415; 80053; 84112; 85025; G0378; G0379; J2795

== ENCOUNTER 2022-02-28 00:55 | Observation (INO) | payer OTHER, SELFPAY ==
--- NOTE | 2022-02-28 00:55 | OBADM ---
This patient, Yessica Mo, admitted to the OB room Labor/Delivery/Recovery 106 for observation. Patient/family oriented to hospital policies and general routines including ID bracelet, bed and alarms, visiting hours, pain management, procedures, bathroom and other care routines, personal items, smoking policy, room service/diet, and visiting hours. Patient/Family are encouraged to report perceived risks to care and to ask questions if they do not understand what they are told or what they should do.
[2022-02-28 01:04] VITALS: RESP 15; TEMP 36.7
[2022-02-28 01:05] VITALS: BMI 41.1
[2022-02-28 01:10] VITALS: BP 125/73; PULSE 89
--- NOTE | 2022-02-28 02:04 | PC.NURSE ---
Updated Shabnam Bryant on maternal and assessments. ROM plus negative. Patient reports active movement. Patient is sleeping comfortably. Orders for discharge.
[2022-02-28 02:15] LABS: Add Urine Microscopic? YES; Appearance Urine Clear (Clear); Bacteria Urine Trace /hpf; Bilirubin Urine Negative (Negative); Blood Urine Negative (Negative); Color Urine Straw (Yellow); Glucose Urine UA 2+ mg/dL (Negative); Ketones Urine Negative (Negative); Leukocyte Esterase Ur Negative LEU/UL (Negative); Nitrate Urine Negative (Negative); Protein Urine Negative (Negative); RBC Urine 0-2 /hpf (0-2); Specific Grav Ur 1.008 (1.001-1.035); Urobilinogen Urine Negative mg/dL (<2.0); WBC Urine 0-3 /hpf
--- NOTE | 2022-02-28 21:33 | PM.OBTRLD ---
OB - Triage/Final Diagnosis Visit Information Date of evaluation: 02/28/22 Reason for evaluation: threatened labor Comments/Additional reasons for admission: I have assessed the risk for this patient, Yessica Mo, and determined that she would benefit from observation care. Evaluation Laboratory results: Laboratory Tests 02/28/22 01:40 Urine Color Straw Urine Appearance Clear Urine pH 7.0 Ur Specific [place] 1.008 Urine Protein Negative Urine Glucose (UA) 2+ H Urine Ketones Negative Ur Blood (Man) Negative Urine Nitrate Negative Urine Bilirubin Negative Urine Urobilinogen Negative Leukocyte Esterase Rfl Negative Urine RBC 0-2 Urine WBC 0-3 Urine Bacteria Trace Vital signs: Vital Signs - 24 hr 02/28/22 01:10 02/28/22 01:04 02/28/22 01:05 Temperature 36.7 C Pulse Rate 89 Respiratory Rate 15 Blood Pressure 125/73 Oxygen Delivery Room Air
== END 2022-02-28 02:15 | disposition home or self-care (01) ==
PROVIDERS: Advanced Practice Midwife; Admitting Provider Obstetrics & Gynecology; PCP Internal Medicine; Visit Provider Obstetrics & Gynecology
DX: O47.9 False labor, unspecified (principal); Z3A.00 Weeks of gestation of pregnancy not specified
CPT/HCPCS: 81001; 84112; G0378; G0379

== ENCOUNTER 2022-03-02 00:01 | Inpatient (IN) | payer OTHER, SELFPAY ==
[2022-03-02] VITALS (210 sets, daily range): BP systolic 75–146; BP diastolic 25–117; PULSE 75–173; RESP 16; TEMP 36.4–38.8; O2SAT 89–100; BMI 40.7
--- OUTSIDE RECORDS SUMMARY | 2022-03-02 00:04 | XMS_ITS | Encounter Summary ---
:1995 Author Care Team Providers Name Role Phone Scooter White MD Primary Care Provider [phone] Reason for Visit None recorded. Assessment and Plan 1. Chronic hypertension complicating AN D/OR reason for care during ? US, obstetric, biophysical profile + non-stress test Discussion Note: None recorded.Patient educational handouts: No information available. Plan of Care Reminders Provider Appointments None recorded. ? ? Lab None recorded. ? ? Referral None recorded. ? ? Procedures None recorded. ? ? Surgeries None recorded. ? ? Imaging US, Obstetric, Biophysical Profile + 2 [place] Non-stress Test Medications Name Start Date ? ? aspirin ? aicagahtdb-eyriouwffupnh-egsnlpyj 50 mg-300 mg-40 mg c apsule ? TAKE 1 CAPSULE BY MOUTH EVERY 6 HOURS A S NEEDED. NO MORE THAN 6 CAPSULES IN 24 HOURS levothyroxine 125 mcg tablet ? TAKE 1 TABLET BY MOUTH EVERY DAY Lexapro 10 mg tablet ? Take 1 tablet every day by oral route. nifedipine ER 30 mg tablet,extended release 24 hr ? TAKE 1 TABLET BY MOUTH EVERY DAY pantoprazole 40 mg tablet,delayed release ? TAKE 1 TABLET BY MOUTH EVERY DAY ? Medications Administered None recorded. Vitals None recorded. Results Lab Results None recorded. Allergies Code Code System Name Reaction Severity Onset NKDA ? ? ? Problems Name Status Onset Date Source ? Active 09/10/2021 ? Hypothyroidism Active ? ?
--- OUTSIDE RECORDS SUMMARY | 2022-03-02 00:04 | XMS_ITS | Encounter Summary ---
:1995 Author Care Team Providers Name Role Phone Scooter White MD Primary Care Provider [phone] Reason for Visit None recorded. Assessment and Plan 1. Reduced movement ? non-stress test Discussion Note: None recorded.Patient educational handouts: No information available. Plan of Care Reminders Provider Appointments None recorded. ? ? Lab None recorded. ? ? Referral None recorded. ? ? Procedures None recorded. ? ? Surgeries None recorded. ? ? Imaging Non-stress Test 02/18/2022 [place] Medications Name Start Date ? ? aspirin ? iypzxocxfe-qufqmvtvtzxqc-dmkfjxgi 50 mg-300 mg-40 mg c apsule ? [...] Active 09/10/2021 ? Hypothyroidism Active ? ? Maternal Obesity Complicating , Childbirth and the Acti ve ? ? Puerperium, Antepartum
--- OUTSIDE RECORDS SUMMARY | 2022-03-02 00:04 | XMS_ITS ---
:1995 Author Care Team Providers Name Role Phone ALIS HWANG MD Primary Care Provider [phone] Allergies Code Code System Name Reaction Severity Status Onset NKDA ? Medications Name Status Start Date Stop Date ? ? alprazolam 0.5 mg tablet Completed ? 021 TAKE 1 TABLET BY MOUTH THREE TIMES DAILY amoxicillin 500 mg capsule Completed ? 02/16 TAKE 1 CAPSULE BY MOUTH TWICE DAILY FOR 10 DAYS amoxicillin 875 mg-potassium clavulanate 125 mg tablet Completed ? 01/22/2021 TAKE 1 TABLET BY MOUTH TWICE DAILY FOR 10 DAYS ampicillin 500 mg capsule Completed ? 2021 TAKE 1 CAPSULE BY MOUTH TWICE DAILY FOR 10 DAYS aspirin Active ? Not available bupropion HCl XL 150 mg 24 hr tablet, extended release Completed ? 06/22/2021 TAKE 1 TABLET BY MOUTH EVERY DAY FOR 7 DAYS bupropion HCl XL 300 mg 24 hr tablet, extended release Completed ? 09/10/2021 TAKE 1 TABLET BY MOUTH EVERY DAY buspirone Completed ? 07/02/2020 buspirone 10 mg tablet Completed ? TK 1 T PO BID hwqjydtmzg-bmfzmulrudmpk-tpmdcixe 50 mg-300 mg-40 mg capsule Act hayde ? Not available TAKE 1 CAPSULE BY MOUTH EVERY 6 HOURS A S NEEDED. NO MORE THAN 6 CAPSULES IN 24 HOURS Ciprodex 0.3 %-0.1 % ear drops,suspension Completed ? 01/22/2021 INSTILL 4 DROPS IN AFFECTED EAR(S) TWICE DAILY FOR 7 DAYS clomiphene citrate 50 mg tablet Completed ? 01/22/2021 cyclobenzaprine 5 mg tablet Completed ? 06/08 TAKE 1 TABLET BY MOUTH THREE TIMES DAILY NEEDED FOR MUSCLE S PASM diclofenac sodium 75 mg tablet,delayed release Completed
--- OUTSIDE RECORDS SUMMARY | 2022-03-02 00:04 | XMS_ITS | Encounter Summary ---
:1995 Author Care Team Providers Name Role Phone Scooter White MD Primary Care Provider [phone] Reason for Visit None recorded. Assessment and Plan 1. Chronic hypertension complicating AN D/OR reason for care during ? US, obstetric, follow-up ? US, obstetric, biophysical profile + non-stress test Discussion Note: None recorded.Patient educational handouts: No information available. Plan of Care Reminders Provider Appointments None recorded. ? ? Lab None recorded. ? ? Referral None recorded. ? ? Procedures None recorded. ? ? Surgeries None recorded. ? ? Imaging US, Obstetric, Follow-up 02/23/2022 [place] ? US, Obstetric, Biophysical Profile + [address] [place] [address] Non-stress Test Medications Name Start Date ? ? aspirin ? vygqxyzbrx-oeadaddevpxii-bzmmtfyw 50 mg-300 mg-40 mg c apsule ? [...]
--- OUTSIDE RECORDS SUMMARY | 2022-03-02 00:04 | XMS_ITS | Encounter Summary ---
:1995 Author Care Team Providers Name Role Phone Scooter White MD Primary Care Provider [phone] Reason for Visit OB visit OB [id number] EDC 03/23/2022 LMP 06/16/2021 Assessment and Plan Assessment Note Patient is __35_weeks . Discuss ed plan. 1. Routine care Discussion Note: None recorded.Patient educational handouts: No information available. Plan of Care Reminders Provider Appointments None recorded. ? ? Lab None recorded. ? ? Referral None recorded. ? ? Procedures None recorded. ? ? Surgeries None recorded. ? ? Imaging None recorded. ? ? Medications Name Start Date ? ? aspirin ? ioozcxxmlp-onmhlrycbixln-ddmquhir 50 mg-300 mg-40 mg c apsule ? [...] DAY ? Medications Administered None recorded. Vitals Height Weight BMI Blood Pressure 5 ft 3.5 in 246 lbs 42.9 kg/m2 (1) 146/92 mm[H g] (2) 160/90 mm[Hg ] Results Lab Results None recorded. Allergies Code Code System Name Reaction Severity Onset NKDA ? ? ?
--- OUTSIDE RECORDS SUMMARY | 2022-03-02 00:04 | XMS_ITS | Encounter Summary ---
:1995 Author Care Team Providers Name Role Phone Scooter White MD Primary Care Provider [phone] Reason for Visit OB visit OB [id number] EDC 03/23/2022 LMP 06/16/2021 a nd IUI done 06/25/2021 Assessment and Plan Assessment Note Patient is _36__weeks . Discuss ed plan. 1. Routine care 2. Large for gestation age fetus ? HbA1c (hemoglobin A1c), blood Discussion Note: None recorded.Patient educational handouts: No information available. Plan of Care Reminders Provider Appointments None recorded. ? ? Lab HbA1C (Hemoglobin a1C), 02/23/2022 [facility] Blood (Lab) Referral None recorded. ? ? Procedures None recorded. ? ? Surgeries None recorded. ? ? Imaging None recorded. ? ? Medications Name Start Date ? ? aspirin ? gfgadkbion-mznzntlewtvob-juwognwz 50 mg-300 mg-40 mg c apsule ? [...] ft 3.5 in 246 lbs 42.9 kg/m2 141/92 mm[Hg] Results Lab Results
--- OUTSIDE RECORDS SUMMARY | 2022-03-02 00:04 | XMS_ITS | Encounter Summary ---
:1995 Author Care Team Providers Name Role Phone Scooter White MD Primary Care Provider [phone] Reason for Visit None recorded. Assessment and Plan 1. Chronic hypertension complicating AN D/OR reason for care during ? non-stress test Discussion Note: None recorded.Patient educational handouts: No information available. Plan of Care Reminders Provider Appointments None recorded. ? ? Lab None recorded. ? ? Referral None recorded. ? ? Procedures None recorded. ? ? Surgeries None recorded. ? ? Imaging Non-stress Test 02/23/2022 [place] Medications Name Start Date ? ? aspirin ? kifggzponw-pngrkggzifrof-zyotosgu 50 mg-300 mg-40 mg c apsule ? [...] Childbirth and the Acti ve ? ? Pu
--- OUTSIDE RECORDS SUMMARY | 2022-03-02 00:05 | XMS_ITS | Encounter Summary ---
:1995 Author Care Team Providers Name Role Phone Scooter White MD Primary Care Provider [phone] Reason for Visit None recorded. Assessment and Plan 1. Chronic hypertension complicating AN D/OR reason for care during ? non-stress test Discussion Note: None recorded.Patient educational handouts: No information available. Plan of Care Reminders Provider Appointments None recorded. ? ? Lab None recorded. ? ? Referral None recorded. ? ? Procedures None recorded. ? ? Surgeries None recorded. ? ? Imaging Non-stress Test 02/16/2022 [place] Medications Name Start Date ? ? aspirin ? jxarhjcdag-bqerkdwffgweg-mvvotetj 50 mg-300 mg-40 mg c apsule ? [...]
--- OUTSIDE RECORDS SUMMARY | 2022-03-02 00:05 | XMS_ITS | Encounter Summary ---
:1995 Author Care Team Providers Name Role Phone Scooter White MD Primary Care Provider [phone] Reason for Visit None recorded. Assessment and Plan 1. Chronic hypertension complicating AN D/OR reason for care during ? non-stress test Discussion Note: None recorded.Patient educational handouts: No information available. Plan of Care Reminders Provider Appointments None recorded. ? ? Lab None recorded. ? ? Referral None recorded. ? ? Procedures None recorded. ? ? Surgeries None recorded. ? ? Imaging Non-stress Test 01/26/2022 [place] Medications Name Start Date ? ? aspirin ? arkgsabvis-zidpmvksausws-jwkkksac 50 mg-300 mg-40 mg c apsule ? [...] Childbirth and the Acti ve ? ? P
--- OUTSIDE RECORDS SUMMARY | 2022-03-02 00:05 | XMS_ITS | Encounter Summary ---
:1995 Author Care Team Providers Name Role Phone Scooter White MD Primary Care Provider [phone] Reason for Visit OB problem Assessment and Plan 1. Threatened premature labor - not del ivered Discussion Note: None recorded.Patient educational handouts: No information available. Plan of Care Reminders Provider Appointments None recorded. ? ? Lab None recorded. ? ? Referral None recorded. ? ? Procedures None recorded. ? ? Surgeries None recorded. ? ? Imaging None recorded. ? ? Medications Name Start Date ? ? aspirin ? rrjlejyvpe-zlzmigkjfalxs-jkisxqlr 50 mg-300 mg-40 mg c apsule ? [...] BMI Blood Pressure 5 ft 3.5 in 240 lbs 41.8 kg/m2 132/82 mm[Hg] Results Lab Results None recorded. Allergies Code Code System Name Reaction Severity Onset NKDA ? ? ? Problems Name Status Onset Date Source ? Active 09/10/2021 ? Hypothyroidism Active ? ? Maternal Obesity Complicating , Childbirth and the Ac
--- OUTSIDE RECORDS SUMMARY | 2022-03-02 00:05 | XMS_ITS | Encounter Summary ---
:1995 Author Care Team Providers Name Role Phone Scooter White MD Primary Care Provider [phone] Reason for Visit OB visit OB [id number] EDC 03/23/2022 LMP 06/16/2021 I UI 06/25/2021 Assessment and Plan Assessment Note Patient is _33__weeks . Discuss ed plan. 1. Routine care Discussion Note: None recorded.Patient educational handouts: No information available. Plan of Care Reminders Provider Appointments None recorded. ? ? Lab None recorded. ? ? Referral None recorded. ? ? Procedures None recorded. ? ? Surgeries None recorded. ? ? Imaging None recorded. ? ? Medications Name Start Date ? ? aspirin ? mctreqppit-mwafwdzjpnmxt-mwqbahtu 50 mg-300 mg-40 mg c apsule ? [...] BMI Blood Pressure 5 ft 3.5 in 243 lbs 42.4 kg/m2 123/85 mm[Hg] Results Lab Results None recorded. Allergies Code Code System Name Reaction Severity Onset NKDA ? ? ? Problems Name Status Onset Date
--- OUTSIDE RECORDS SUMMARY | 2022-03-02 00:05 | XMS_ITS | Encounter Summary ---
:1995 Author Care Team Providers Name Role Phone Scooter White MD Primary Care Provider [phone] Reason for Visit None recorded. Assessment and Plan 1. Maternal obesity complicating pregna ncy, childbirth and the puerperium, antepartum ? non-stress test Discussion Note: None recorded.Patient educational handouts: No information available. Plan of Care Reminders Provider Appointments None recorded. ? ? Lab None recorded. ? ? Referral None recorded. ? ? Procedures None recorded. ? ? Surgeries None recorded. ? ? Imaging Non-stress Test 02/02/2022 [place] Medications Name Start Date ? ? aspirin ? tjiqjvufoc-qysiyjaehbbfu-qdkcvvxs 50 mg-300 mg-40 mg c apsule ? [...]
--- OUTSIDE RECORDS SUMMARY | 2022-03-02 00:05 | XMS_ITS | Encounter Summary ---
:1995 Author Care Team Providers Name Role Phone Scooter White MD Primary Care Provider [phone] Reason for Visit None recorded. Assessment and Plan 1. Placenta circumvallata ? US, obstetric, follow-up Discussion Note: None recorded.Patient educational handouts: No information available. Plan of Care Reminders Provider Appointments None recorded. ? ? Lab None recorded. ? ? Referral None recorded. ? ? Procedures None recorded. ? ? Surgeries None recorded. ? ? Imaging US, Obstetric, Follow-up 01/26/2022 [place] Medications Name Start Date ? ? aspirin ? xhmmmwpzdo-dxeplywkntszs-ojnhijtx 50 mg-300 mg-40 mg c apsule ? [...]
--- OUTSIDE RECORDS SUMMARY | 2022-03-02 00:05 | XMS_ITS | Encounter Summary ---
:1995 Author Care Team Providers Name Role Phone Scooter White MD Primary Care Provider [phone] Reason for Visit None recorded. Assessment and [...] Imaging US, Obstetric, Biophysical Profile + 2 [place] Non-stress Test Medications Name Start Date ? ? aspirin ? lpzmofdvcs-icjgzpgsuetun-pyirjhod 50 mg-300 mg-40 mg c apsule ? [...]
--- OUTSIDE RECORDS SUMMARY | 2022-03-02 00:05 | XMS_ITS | Encounter Summary ---
:1995 Author Care Team Providers Name Role Phone Scooter White MD Primary Care Provider [phone] Reason for Visit None recorded. Assessment and Plan 1. Threatened premature labor - not del ivered ? non-stress test Discussion Note: None recorded.Patient educational handouts: No information available. Plan of Care Reminders Provider Appointments None recorded. ? ? Lab None recorded. ? ? Referral None recorded. ? ? Procedures None recorded. ? ? Surgeries None recorded. ? ? Imaging Non-stress Test 01/17/2022 [place] Medications Name Start Date ? ? aspirin ? gsfqldopal-gsaildxidmquk-izeerwmn 50 mg-300 mg-40 mg c apsule ? [...]
--- OUTSIDE RECORDS SUMMARY | 2022-03-02 00:05 | XMS_ITS | Encounter Summary ---
:1995 Author Care Team Providers Name Role Phone Scooter White MD Primary Care Provider [phone] Reason for Visit OB visit OB [id number] EDC 03/23/2022 LMP 06/16/21 Assessment and Plan Assessment Note Patient is __34_weeks . Discuss ed plan. 1. Routine care Discussion Note: None recorded.Patient educational handouts: No information available. Plan of Care Reminders Provider Appointments None recorded. ? ? Lab None recorded. ? ? Referral None recorded. ? ? Procedures None recorded. ? ? Surgeries None recorded. ? ? Imaging None recorded. ? ? Medications Name Start Date ? ? aspirin ? qxmwinarhi-qdbhcolxojawy-txrgouqt 50 mg-300 mg-40 mg c apsule ? [...] BMI Blood Pressure 5 ft 3.5 in 242 lbs 42.2 kg/m2 122/77 mm[Hg] Results Lab Results None recorded. Allergies Code Code System Name Reaction Severity Onset NKDA ? ? ? Problems Name Status Onset Date Source ?
--- OUTSIDE RECORDS SUMMARY | 2022-03-02 00:05 | XMS_ITS | Encounter Summary ---
:1995 Author Care Team Providers Name Role Phone Scooter White MD Primary Care Provider [phone] Reason for Visit OB visit OB [id number] EDC 03/23/2022 LMP 06/16/2021 Assessment and Plan Assessment Note Patient is _32__weeks . Discuss ed plan. 1. Routine care Discussion Note: None recorded.Patient educational handouts: No information available. Plan of Care Reminders Provider Appointments None recorded. ? ? Lab None recorded. ? ? Referral None recorded. ? ? Procedures None recorded. ? ? Surgeries None recorded. ? ? Imaging None recorded. ? ? Medications Name Start Date ? ? aspirin ? qhznpnvjnf-bgkttvnqeeosj-jdexymtw 50 mg-300 mg-40 mg c apsule ? [...] ft 3.5 in 242 lbs 42.2 kg/m2 144/85 mm[Hg] Results Lab Results None recorded. Allergies Code Code System Name Reaction Severity Onset NKDA ? ? ? Problems Name Status Onset Date Source ?
--- OUTSIDE RECORDS SUMMARY | 2022-03-02 00:05 | XMS_ITS | Encounter Summary ---
:1995 Author Care Team Providers Name Role Phone Scooter White MD Primary Care Provider [phone] Reason for Visit OB visit Assessment and Plan Assessment Note Patient is ___weeks . Discussed plan. 1. Routine care Discussion Note: None recorded.Patient educational handouts: No information available. Plan of Care Reminders Provider Appointments None recorded. ? ? Lab None recorded. ? ? Referral None recorded. ? ? Procedures None recorded. ? ? Surgeries None recorded. ? ? Imaging None recorded. ? ? Medications Name Start Date ? ? aspirin ? rsszgbbxwm-xctutcbkbdziz-kyclwxqv 50 mg-300 mg-40 mg c apsule ? [...] BMI Blood Pressure 5 ft 3.5 in 239 lbs 41.7 kg/m2 133/86 mm[Hg] Results Lab Results None recorded. Allergies Code Code System Name Reaction Severity Onset NKDA ? ? ? Problems Name Status Onset Date Source ? Active 09/10/2021 ?
--- OUTSIDE RECORDS SUMMARY | 2022-03-02 00:05 | XMS_ITS | Encounter Summary ---
:1995 Author Care Team Providers Name Role Phone Scooter White MD Primary Care Provider [phone] Reason for Visit None recorded. Assessment and [...] None recorded. ? ? Imaging Non-stress Test 02/09/2022 [place] Medications Name Start Date ? ? aspirin ? ppovncqoho-mpyjfkmmeeyyw-haxwrxay 50 mg-300 mg-40 mg c apsule ? [...]
--- OUTSIDE RECORDS SUMMARY | 2022-03-02 00:06 | XMS_ITS | Encounter Summary ---
:1995 Author Care Team Providers Name Role Phone Scooter White MD Primary Care Provider [phone] Reason for Visit OB visit OB [id number] EDC 03/23/2022 LMP 06/16/2021 I UI done 06/25/2021 Assessment and Plan Assessment Note Patient is _28_weeks . Discusse d plan. 1. Routine care 2. -induced hypertension ? CBC w/ auto diff ? CMP, serum or plasma ? uric acid, serum or plasma Discussion Note: None recorded.Patient educational handouts: No information available. Plan of Care Reminders Provider Appointments None recorded. ? ? Lab CBC W/ Auto Diff 12/29/2021 [facility] (Lab) ? CMP, Serum or Plasma 12/29/2021 [facility] (Lab) ? Uric Acid, Serum or Plasma 12/29/2021 [facility] (Lab) Referral None recorded. ? ? Procedures None recorded. ? ? Surgeries None recorded. ? ? Imaging None recorded. ? ? Medications Name Start Date ? ? aspirin ? hbwpbpejly-rryuivrfudbhn-iiafcbzq 50 mg-300 mg-40 mg c apsule ? [...] 40 mg tablet,delayed release ? TAKE 1 TAB
--- OUTSIDE RECORDS SUMMARY | 2022-03-02 00:06 | XMS_ITS | Encounter Summary ---
:1995 Author Care Team Providers Name Role Phone Scooter White MD Primary Care Provider [phone] Reason for Visit None recorded. Assessment and Plan 1. Medical examination for suspected co ndition ? US, obstetric, limited Discussion Note: None recorded.Patient educational handouts: No information available. Plan of Care Reminders Provider Appointments None recorded. ? ? Lab None recorded. ? ? Referral None recorded. ? ? Procedures None recorded. ? ? Surgeries None recorded. ? ? Imaging US, Obstetric, Limited 01/13/2022 [place] Medications Name Start Date ? ? aspirin ? yhnajzpdgq-itqjhztudynns-szmbdelb 50 mg-300 mg-40 mg c apsule ? [...] and the Acti ve ? ? Puerperium, An
--- OUTSIDE RECORDS SUMMARY | 2022-03-02 00:06 | XMS_ITS | Encounter Summary ---
:1995 Author Care Team Providers Name Role Phone Scooter White MD Primary Care Provider [phone] Reason for Visit None recorded. Assessment and Plan 1. Placenta circumvallata ? US, obstetric, follow-up Discussion Note: None recorded.Patient educational handouts: No information available. Plan of Care Reminders Provider Appointments None recorded. ? ? Lab None recorded. ? ? Referral None recorded. ? ? Procedures None recorded. ? ? Surgeries None recorded. ? ? Imaging US, Obstetric, Follow-up 12/29/2021 [facility] Medications Name Start Date ? ? aspirin ? rtskzldqpt-tvgehtdjdyfvj-ytmyfzes 50 mg-300 mg-40 mg c apsule ? [...]
--- OUTSIDE RECORDS SUMMARY | 2022-03-02 00:06 | XMS_ITS ---
:1995 Author Care Team Providers Name Role Phone ZO MORA OTHER [phone] Allergies Code Code System Name Reaction Severity Status Onset NKDA ? Medications Name Status Start Date Stop Date ? ? acetaminophen 300 mg-codeine 30 mg tablet Completed ? 11/26/2018 [facility] Active ? Not available amoxicillin 500 mg capsule Completed ? 11/26 Take 1 capsule every 12 hours by oral route for 10 days. amoxicillin 875 mg-potassium clavulanate 125 mg tablet Completed ? 11/26/2018 Anucort-HC 25 mg suppository Unknown ? Not available azithromycin 250 mg tablet Completed ? 02/13 benzonatate 200 mg capsule Completed ? 11/26 cephalexin 500 mg capsule Completed ? 2018 Doc-Q-Lace 100 mg capsule Unknown ? Not av ailable doxycycline monohydrate 100 mg tablet Completed ? 11/26/2018 ferrous sulfate 325 mg (65 mg iron) tablet Active ? Not available Take 1 tablet 3 times a day by oral route. fluconazole 150 mg tablet Completed ? 2018 hydrocodone 5 mg-acetaminophen 325 mg tablet Completed ? 02/13/2019 ibuprofen 800 mg tablet Unknown ? Not avai lable lidocaine HCl 2 % mucosal jelly Completed ? 02/13/2019 metronidazole 250 mg tablet Completed ? 11/06 Mucinex 600 mg tablet, extended release Completed ? 11/26/2018 Take 1 tablet every 12 hours by oral route as needed. ofloxacin 0.3 % eye drops Completed ? 2018 omeprazole 40 mg capsule,delayed release Completed ? 11/26/2018 oxycodone-acetaminophen 5 mg-325 mg tablet Completed ? 02/13/2019 ParaGard T 380A 380 square mm intrauterine device Completed ? 07/04/2018 Take 1 device by intrauterine route as dir
--- OUTSIDE RECORDS SUMMARY | 2022-03-02 00:06 | XMS_ITS | Encounter Summary ---
:1995 Author Care Team Providers Name Role Phone Scooter White MD Primary Care Provider [phone] Reason for Visit None recorded. Assessment and Plan 1. Placenta circumvallata ? US, obstetric, follow-up Discussion Note: None recorded.Patient educational handouts: No information available. Plan of Care Reminders Provider Appointments None recorded. ? ? Lab None recorded. ? ? Referral None recorded. ? ? Procedures None recorded. ? ? Surgeries None recorded. ? ? Imaging US, Obstetric, Follow-up 12/03/2021 [place] Medications Name Start Date ? ? aspirin ? itbejfjblz-aehlrellztbrc-acyaoymj 50 mg-300 mg-40 mg c apsule ? [...]
--- OUTSIDE RECORDS SUMMARY | 2022-03-02 00:06 | XMS_ITS | Encounter Summary ---
:1995 Author Care Team Providers Name Role Phone Scooter White MD Primary Care Provider [phone] Reason for Visit OB visit Assessment and Plan Assessment Note Patient is ___weeks . Discussed plan. 1. Hypothyroidism ? TSH, serum or plasma ? T4, free, serum Discussion Note: None recorded.Patient educational handouts: No information available. Plan of Care Reminders Provider Appointments None recorded. ? ? Lab TSH, Serum or Plasma 12/03/2021 [facility] (Lab) ? T4, Free, Serum 12/03/2021 [facility] (Lab) Referral None recorded. ? ? Procedures None recorded. ? ? Surgeries None recorded. ? ? Imaging None recorded. ? ? Medications Name Start Date ? ? aspirin ? owoeayhnab-emgiaivavpcgp-gxuzqhso 50 mg-300 mg-40 mg c apsule ? [...] BMI Blood Pressure 5 ft 3.5 in 234 lbs 40.8 kg/m2 123/77 mm[Hg] Results Lab Results Date Name Specimen Result Interpretation Description Value Range Status Address ?
--- OUTSIDE RECORDS SUMMARY | 2022-03-02 00:07 | XMS_ITS ---
:1995 Author Care Team Providers Name Role Phone ALIS HWANG MD Primary Care Provider [phone] Allergies Code Code System Name Reaction Severity [...] Completed ? TK 1 T PO BID aicydotxod-zvasasbipaunj-tpuziupr 50 mg-300 mg-40 mg capsule Act hayde [...]
--- OUTSIDE RECORDS SUMMARY | 2022-03-02 00:07 | XMS_ITS | Encounter Summary ---
:1995 Author Care Team Providers Name Role Phone Scooter White MD Primary Care Provider [phone] Reason for Visit None recorded. Assessment and [...] Imaging US, Obstetric, Biophysical Profile + 2 [place] Non-stress Test Medications Name Start Date ? ? aspirin ? bhdwvbfhqz-prnurzgbvtxkn-yvwhejhm 50 mg-300 mg-40 mg c apsule ? [...]
--- OUTSIDE RECORDS SUMMARY | 2022-03-02 00:07 | XMS_ITS | Encounter Summary ---
:1995 Author Care Team Providers Name Role Phone Scooter White MD Primary Care Provider [phone] Reason for Visit None recorded. Assessment and [...] ille ? US, Obstetric, Biophysical Profile + [address] [place] [address] Non-stress Test Medications Name Start Date ? ? aspirin ? tslrmvpfxo-ckwccwejqeffk-fwwatkpm 50 mg-300 mg-40 mg c apsule ? [...]
--- OUTSIDE RECORDS SUMMARY | 2022-03-02 00:07 | XMS_ITS | Encounter Summary ---
:1995 Author Care Team Providers Name Role Phone Scooter White MD Primary Care Provider [phone] Reason for Visit None recorded. Assessment and Plan 1. Reduced movement ? non-stress test Discussion Note: None recorded.Patient educational handouts: No information available. Plan of Care Reminders Provider Appointments None recorded. ? ? Lab None recorded. ? ? Referral None recorded. ? ? Procedures None recorded. ? ? Surgeries None recorded. ? ? Imaging Non-stress Test 02/18/2022 [place] Medications Name Start Date ? ? aspirin ? cdswgqdblp-irkcytjbcawsy-rvnalikh 50 mg-300 mg-40 mg c apsule ? [...]
--- OUTSIDE RECORDS SUMMARY | 2022-03-02 00:07 | XMS_ITS | Encounter Summary ---
:1995 Author Care Team Providers Name Role Phone Scooter White MD Primary Care Provider [phone] Reason for Visit OB visit OB [id number] EDC 03/23/2022 LMP 06/16/21 Assessment and Plan [...] Name Start Date ? ? aspirin ? rfhqnpzdnf-ljoafchrnqmyg-wehswxkt 50 mg-300 mg-40 mg c apsule ? [...]
--- OUTSIDE RECORDS SUMMARY | 2022-03-02 00:07 | XMS_ITS | Encounter Summary ---
:1995 Author Care Team Providers Name Role Phone Scooter White MD Primary Care Provider [phone] Reason for Visit None recorded. Assessment and [...] recorded. ? ? Imaging Non-stress Test 02/16/2022 [place] Medications Name Start Date ? ? aspirin ? wjedbifkwq-cquoudbxpvzuq-lsaiumon 50 mg-300 mg-40 mg c apsule ? [...]
--- OUTSIDE RECORDS SUMMARY | 2022-03-02 00:07 | XMS_ITS | Encounter Summary ---
:1995 Author Care Team Providers Name Role Phone Scooter White MD Primary Care Provider [phone] Reason for Visit None recorded. Assessment and [...] recorded. ? ? Imaging Non-stress Test 02/09/2022 [place] Medications Name Start Date ? ? aspirin ? gsfpazxzfa-gduwpkeatjglu-dpzsfbte 50 mg-300 mg-40 mg c apsule ? [...]
--- OUTSIDE RECORDS SUMMARY | 2022-03-02 00:07 | XMS_ITS | Encounter Summary ---
:1995 Author Care Team Providers Name Role Phone Scooter White MD Primary Care Provider [phone] Reason for Visit None recorded. Assessment and [...] Imaging US, Obstetric, Biophysical Profile + 2 [place] Non-stress Test Medications Name Start Date ? ? aspirin ? ggboxzjhoh-ninlnbktmsdmq-grbdltgy 50 mg-300 mg-40 mg c apsule ? [...]
--- OUTSIDE RECORDS SUMMARY | 2022-03-02 00:07 | XMS_ITS | Encounter Summary ---
:1995 Author Care Team Providers Name Role Phone Scooter White MD Primary Care Provider [phone] Reason for Visit OB visit OB [id number] EDC 03/23/2022 LMP 06/16/2021 I UI 06/25/2021 [...] Name Start Date ? ? aspirin ? khihxgzgzc-pfriamcqpztbb-nevbmovt 50 mg-300 mg-40 mg c apsule ? [...]
--- OUTSIDE RECORDS SUMMARY | 2022-03-02 00:07 | XMS_ITS | Encounter Summary ---
:1995 Author Care Team Providers Name Role Phone Scooter White MD Primary Care Provider [phone] Reason for Visit OB visit OB [id number] EDC 03/23/2022 LMP 06/16/2021 Assessment and Plan [...] Name Start Date ? ? aspirin ? jwckmrwfow-muhodmgtfwdiz-ahjyzaag 50 mg-300 mg-40 mg c apsule ? [...]
--- OUTSIDE RECORDS SUMMARY | 2022-03-02 00:07 | XMS_ITS | Encounter Summary ---
:1995 Author Care Team Providers Name Role Phone Scooter White MD Primary Care Provider [phone] Reason for Visit OB visit OB [id number] EDC 03/23/2022 LMP 06/16/2021 Assessment and Plan [...] Name Start Date ? ? aspirin ? ypyhjjtylq-czyxxvckcfzhd-rdljwrmg 50 mg-300 mg-40 mg c apsule ? [...]
--- OUTSIDE RECORDS SUMMARY | 2022-03-02 00:07 | XMS_ITS | Encounter Summary ---
:1995 Author Care Team Providers Name Role Phone Scooter White MD Primary Care Provider [phone] Reason for Visit None recorded. Assessment and [...] recorded. ? ? Imaging Non-stress Test 02/02/2022 [place] Medications Name Start Date ? ? aspirin ? kzhzzjcfcs-rrejmqvtjnnxg-tfklartv 50 mg-300 mg-40 mg c apsule ? [...]
--- OUTSIDE RECORDS SUMMARY | 2022-03-02 00:07 | XMS_ITS | Encounter Summary ---
:1995 Author Care Team Providers Name Role Phone Scooter White MD Primary Care Provider [phone] Reason for Visit None recorded. Assessment and [...] Imaging US, Obstetric, Biophysical Profile + 2 [place] Non-stress Test Medications Name Start Date ? ? aspirin ? dfkrmmvuua-ecwjnlyiltbwd-sjxdlzzn 50 mg-300 mg-40 mg c apsule ? [...]
--- OUTSIDE RECORDS SUMMARY | 2022-03-02 00:07 | XMS_ITS | Encounter Summary ---
:1995 Author Care Team Providers Name Role Phone Scooter White MD Primary Care Provider [phone] Reason for Visit None recorded. Assessment and [...] recorded. ? ? Imaging Non-stress Test 02/23/2022 [place] Medications Name Start Date ? ? aspirin ? nkrvkdtoll-nwdtcaxeehxtj-wegmbcdt 50 mg-300 mg-40 mg c apsule ? [...]
--- OUTSIDE RECORDS SUMMARY | 2022-03-02 00:07 | XMS_ITS | Encounter Summary ---
:1995 Author Care Team Providers Name Role Phone Scooter White MD Primary Care Provider [phone] Reason for Visit OB visit OB [id number] EDC 03/23/2022 LMP 06/16/2021 a nd IUI done 06/25/2021 Assessment and Plan Assessment Note Patient is _36__weeks . Discuss ed plan. 1. Routine care 2. Large for gestation age fetus ? HbA1c (hemoglobin A1c), blood Discussion Note: None recorded.Patient educational handouts: No information available. Plan of Care Reminders Provider Appointments None recorded. ? ? Lab HbA1C (Hemoglobin a1C), 02/23/2022 [facility] Blood (Lab) Referral None recorded. ? ? Procedures None recorded. ? ? Surgeries None recorded. ? ? Imaging None recorded. ? ? Medications Name Start Date ? ? aspirin ? ydtdeubwrp-svmjlhrplwbqg-pawcntdx 50 mg-300 mg-40 mg c apsule ? [...]
--- OUTSIDE RECORDS SUMMARY | 2022-03-02 00:08 | XMS_ITS | Encounter Summary ---
:1995 Author Care Team Providers Name Role Phone Scooter White MD Primary Care Provider [phone] Reason for Visit OB problem Assessment and [...] Name Start Date ? ? aspirin ? rvioqruuyx-ddajqthuycpzt-xwzoofna 50 mg-300 mg-40 mg c apsule ? [...]
--- OUTSIDE RECORDS SUMMARY | 2022-03-02 00:08 | XMS_ITS | Encounter Summary ---
:1995 Author Care Team Providers Name Role Phone Scooter White MD Primary Care Provider [phone] Reason for Visit None recorded. Assessment and [...] Name Start Date ? ? aspirin ? zgthqrkmny-djalweretaxhz-zvjibnqi 50 mg-300 mg-40 mg c apsule ? [...]
--- OUTSIDE RECORDS SUMMARY | 2022-03-02 00:08 | XMS_ITS | Encounter Summary ---
:1995 Author Care Team Providers Name Role Phone Scooter White MD Primary Care Provider [phone] Reason for Visit None recorded. Assessment and [...] Name Start Date ? ? aspirin ? lhgdnobxqj-mmurgefwehxuu-vuekdbsc 50 mg-300 mg-40 mg c apsule ? [...]
--- OUTSIDE RECORDS SUMMARY | 2022-03-02 00:08 | XMS_ITS | Encounter Summary ---
:1995 Author Care Team Providers Name Role Phone Scooter White MD Primary Care Provider [phone] Reason for Visit OB visit Assessment and [...] Name Start Date ? ? aspirin ? mtauxusuuu-vogioftgmotzt-gdycomki 50 mg-300 mg-40 mg c apsule ? [...]
--- OUTSIDE RECORDS SUMMARY | 2022-03-02 00:08 | XMS_ITS | Encounter Summary ---
:1995 Author Care Team Providers Name Role Phone Scooter White MD Primary Care Provider [phone] Reason for Visit None recorded. Assessment and [...] Name Start Date ? ? aspirin ? lwudigdhob-fkqogbcmraxql-uysbvngq 50 mg-300 mg-40 mg c apsule ? [...]
--- OUTSIDE RECORDS SUMMARY | 2022-03-02 00:08 | XMS_ITS | Encounter Summary ---
:1995 Author Care Team Providers Name Role Phone Scooter White MD Primary Care Provider [phone] Reason for Visit OB visit Assessment and Plan Assessment Note Patient is ___weeks . Discussed plan. 1. Hypothyroidism ? TSH, serum or plasma ? T4, free, serum Discussion Note: None recorded.Patient educational handouts: No information available. Plan of Care Reminders Provider Appointments None recorded. ? ? Lab TSH, Serum or Plasma 12/03/2021 [facility] (Lab) ? T4, Free, Serum 12/03/2021 [facility] (Lab) Referral None recorded. ? ? Procedures None recorded. ? ? Surgeries None recorded. ? ? Imaging None recorded. ? ? Medications Name Start Date ? ? aspirin ? nvthxfyfmo-kttihgnpnrrnk-ppozfpzy 50 mg-300 mg-40 mg c apsule ? [...]
--- OUTSIDE RECORDS SUMMARY | 2022-03-02 00:08 | XMS_ITS | Encounter Summary ---
:1995 Author Care Team Providers Name Role Phone Scooter White MD Primary Care Provider [phone] Reason for Visit None recorded. Assessment and Plan 1. Threatened premature labor - not del ivered ? non-stress test Discussion Note: None recorded.Patient educational handouts: No information available. Plan of Care Reminders Provider Appointments None recorded. ? ? Lab None recorded. ? ? Referral None recorded. ? ? Procedures None recorded. ? ? Surgeries None recorded. ? ? Imaging Non-stress Test 01/17/2022 [place] Medications Name Start Date ? ? aspirin ? fqaidknngy-jzvnvnwdzooyj-bvavhpkz 50 mg-300 mg-40 mg c apsule ? [...]
--- OUTSIDE RECORDS SUMMARY | 2022-03-02 00:08 | XMS_ITS | Encounter Summary ---
:1995 Author Care Team Providers Name Role Phone Scooter White MD Primary Care Provider [phone] Reason for Visit None recorded. Assessment and [...] Name Start Date ? ? aspirin ? asgcruuoos-riwrtctmupndu-sexetnbt 50 mg-300 mg-40 mg c apsule ? [...]
--- OUTSIDE RECORDS SUMMARY | 2022-03-02 00:08 | XMS_ITS | Encounter Summary ---
:1995 Author Care Team Providers Name Role Phone Scooter White MD Primary Care Provider [phone] Reason for Visit None recorded. Assessment and [...] recorded. ? ? Imaging Non-stress Test 01/26/2022 [place] Medications Name Start Date ? ? aspirin ? wzivpttxvs-qmrnystrmjsqj-ydwofvhq 50 mg-300 mg-40 mg c apsule ? [...]
--- OUTSIDE RECORDS SUMMARY | 2022-03-02 00:08 | XMS_ITS | Encounter Summary ---
:1995 Author Care Team Providers Name Role Phone Scooter White MD Primary Care Provider [phone] Reason for Visit OB visit OB [id number] EDC 03/23/2022 LMP 06/16/2021 I UI done [...] ? Lab CBC W/ Auto Diff 12/29/2021 [facility] (Lab) ? CMP, Serum or Plasma 12/29/2021 [facility] (Lab) ? Uric Acid, Serum or Plasma 12/29/2021 [facility] (Lab) Referral None recorded. ? ? Procedures None recorded. ? ? Surgeries None recorded. ? ? Imaging None recorded. ? ? Medications Name Start Date ? ? aspirin ? nrxslkyamj-trxmzffwinzhj-gfobjyty 50 mg-300 mg-40 mg c apsule ? [...]
--- OUTSIDE RECORDS SUMMARY | 2022-03-02 00:08 | XMS_ITS ---
:1995 Author Care Team Providers Name Role Phone ZO MORA OTHER [phone] Allergies Code Code System Name Reaction Severity [...]
--- NOTE | 2022-03-02 00:41 | LDADM ---
This patient, Yessica Mo, was admitted to Labor/Delivery/Recovery 107 on 03/02/22 at 00:01. Plans for labor, pain management and were discussed with patient. Patient/family oriented to hospital policies and general routines including ID bracelet, bed and alarms, visiting hours, pain management, procedures, bathroom and other care routines, personal items, smoking policy, room service/diet and guest tray routines, security routines, and visiting hours. Patient/Family are encouraged to report perceived risks to care and to ask questions if they do not understand what they are told or what they should do. See OBIX for further documentation.
[2022-03-02] MEDS: LACTATED RINGERS 1,000 ML 125 ML IV CONT ×3 (01:04→10:37)
[2022-03-02] MEDS: AMPICILLIN 2 GM/NS 100 ML 2 GM/100 ML BAG IVPB (01:05)
[2022-03-02] MEDS: OXYTOCIN 30 UNITS/NS 500 ML 30 UNITS/500 ML BAG IV CONT (01:06)
--- NOTE | 2022-03-02 01:10 | P.PNAN_ITS ---
Anes - Eval Pre Procedure Procedure: labor epidural Date/Time: 03/02/22 01:10 Pre Op Diagnosis: IOL Patient Data Age: 27 Gender: F Height: 1.65 m Weight: 111 kg Last Vital Signs Pulse 91 03/02/22 00:17 BP 141/87 H 03/02/22 00:17 Allergies Allergy/AdvReac Type Severity Reaction Status Date / Time No Known Allergies Allergy Verified 02/23/22 14:22 Home Medications Medication Instructions Recorded Confirmed Type levothyroxine 125 mcg tablet 125 mcg PO DAILY 02/11/22 02/22/22 History nifedipine 30 mg tablet,extended 30 mg PO DAILY 02/11/22 02/22/22 History release 24 hr pantoprazole 40 mg tablet,delayed 40 mg PO DAILY 02/18/22 02/18/22 History release vit no.133-ferrous 1 tablet PO DAILY 02/18/22 02/18/22 History fumarate 28 mg-folic acid 800 mcg tablet () Patient hx anesthesia problems: none Family hx anesthesia problems: none Results Review: All pre-operative results and documents have been reviewed as part of the pre- operative evaluation. [facility] Past Medical History Medical History Acute hemorrhoid Anxiety GERD (gastroesophageal reflux disease) History of adverse reaction to anesthesia Hx of hemorrhoids Hypothyroid Wears glasses Surgical History Surgical History H/O tubal ligation History of appendectomy History of lumpectomy History of ovarian cystectomy Hx of cholecystectomy Family History Family History Father Hypertension Mother Alcoholism Thyroid disorder Grandparent Breast cancer Hypertension Thyroid disorder Lung cancer Social History Social History Smoking status: Never smoker Substance use: never Substance use type: does not use Gender identity (if verbalized by the patient): Female Spiritual care concerns: No Has the Lack of Transportation Kept You From Medical Appointments or From Getting Medications?: No Within the Past 12 Months, Were You Worried Whether Your Food Would Run Out Before You Got Money to Buy More?: Never True What is Your Housing Situation Today?: I Have Housing Are You Worried That in the Next 2 Months, You May Not Have Your Own Housing to Live In?: No Do You Have Trouble Paying Your Heating Or Electricity Bill?: No Do You Have Trouble Paying For Medicines?: No Are You Currently Unemployed and Looking for Work?: No Highest Level of Education Completed: Associate Degree Do You Have Trouble With Childcare or the Care of a Family Member?: No Exam Day of Procedure 03/02/22 01:10 Patient weight: morbidly obese Heart: regular rate and rhythm Lungs: clear to auscultation Airway: Mallampati scale Neurological: alert and oriented
[2022-03-02 01:18] LABS: Basophils Percent Auto 0.4 % (0.2-1.2); Eosinophils Absolute Auto 0.1 K/mm3 (0-0.3); Eosinophils Percent Auto 0.6 % (0-4.4); Hematocrit 33.7 % (37.0-47.0); Hemoglobin 11.3 g/dL (12.0-15.0); Immature Granulocyte Absolute 0.09 K/mm3 (0.00-0.031); Immature Granulocyte Percent A 0.8 % (0-0.5); Lymphocytes Absolute Auto 1.99 K/mm3 (0.9-3.2); Lymphocytes Percent Auto 18.1 % (18.3-44.2); Mean Corpuscular HGB Conc 33.5 g/dl (32-36); Mean Corpuscular Hemoglobin 28.7 pg (26-34); Mean Corpuscular Volume 85.5 fl (80-100); Monocytes Absolute Auto 1.1 K/mm3 (0.1-0.6); Monocytes Percent Auto 9.8 % (2.6-8.5); Neutrophils Absolute Auto 7.7 K/mm3 (1.3-6.7); Neutrophils Percent Auto 70.3 % (45.5-73.1); Platelet Count Result 314 k/mm3 (150-375); Red Blood Count 3.94 M/mm3 (4.2-5.4)
[2022-03-02 01:30] LABS: Alanine Aminotransferase 14 U/L (6-35); Albumin Level 3.5 g/dL (3.5-5.1); Alkaline Phosphatase 178 U/L (38-126); Anion Gap 10 mmol/L (8-16); Aspartate Amino Transferase 21 U/L (14-36); Bilirubin,Total 0.4 mg/dL (0.2-1.3); Blood Urea Nitrogen 5 mg/dL (7-17); Calcium 8.5 mg/dL (8.4-10.2); Carbon Dioxide 18 mmol/L (22-30); Chloride 106 mmol/L (98-107); Estimated CRCL calculation 209 ml/min; Estimated Glomerular Filt Rate > 60; Glucose 94 mg/dL (65-110); Potassium 3.7 mmol/L (3.4-5.0); Sodium 134 mmol/L (137-145); Uric Acid 4.4 mg/dL (2.5-7.5)
[2022-03-02] MEDS: AMPICILLIN 1 GM/NS 50 ML 1 GM/50 ML BAG IVPB ×4 (04:00→19:26)
--- NOTE | 2022-03-02 07:30 | WPDANESEPP ---
Anes - Eval Pre Procedure Procedure: labor epidural Date/Time: 03/02/22 07:30 Surgeon: vahid Preop Diagnosis: pain during labor Pre Op Diagnosis: IOL Patient Data Age: 27 Gender: F Height: 1.65 m Weight: 111 kg Last Vital Signs Temp 36.4 C 03/02/22 04:30 Pulse 84 03/02/22 07:29 Resp 16 03/02/22 04:30 BP 122/64 03/02/22 07:29 Pulse Ox 100 03/02/22 07:29 Allergies Allergy/AdvReac Type Severity Reaction Status Date / Time No Known Allergies Allergy Verified 02/23/22 14:22 Home Medications Medication Instructions Recorded Confirmed Type levothyroxine 125 mcg tablet 125 mcg PO DAILY 02/11/22 03/02/22 History nifedipine 30 mg tablet,extended 30 mg PO DAILY 02/11/22 03/02/22 History release 24 hr pantoprazole 40 mg tablet,delayed 40 mg PO DAILY 02/18/22 03/02/22 History release vit no.133-ferrous 1 tablet PO DAILY 02/18/22 03/02/22 History fumarate 28 mg-folic acid 800 mcg tablet () Laboratory Tests 03/02/22 03/02/22 03/02/22 00:38 00:38 00:38 WBC 11.0 K/mm3 H K/mm3 (4.5-10.0) RBC 3.94 M/mm3 L M/mm3 (4.2-5.4) Hgb 11.3 g/dL L g/dL (12.0-15.0) Hct 33.7 % L % (37.0-47.0) MCV 85.5 fl fl (80-100) MCH 28.7 pg pg (26-34) MCHC 33.5 g/dl g/dl (32-36) RDW 12.0 % % (11.5-14.5) Plt Count 314 k/mm3 k/mm3 (150-375) MPV 10.0 fl fl (7.4-10.4) Immature Gran % (Auto) 0.8 % H % (0-0.5) Neut % (Auto) 70.3 % % (45.5-73.1) Lymph % (Auto) 18.1 % L % (18.3-44.2) [place] % (Auto) 9.8 % H % (2.6-8.5) Eos % (Auto) 0.6 % % (0-4.4) Baso % (Auto) 0.4 % % (0.2-1.2) Lymph # (Auto) 1.99 K/mm3 K/mm3 (0.9-3.2) [place] # (Auto) 1.1 K/mm3 H K/mm3 (0.1-0.6) Eos # (Auto) 0.1 K/mm3 K/mm3 (0-0.3) Baso # (Auto) 0.0 K/mm3 K/mm3 (0.0-0.1) Abs Immat Gran (auto) 0.09 K/mm3 H K/mm3 (0.00-0.031) Absolute Neuts (auto) 7.7 K/mm3 H K/mm3 (1.3-6.7) Absolute Nucleated RBC 0.0 K/mm3 K/mm3 (0.0-0.012) Nucleated RBC % 0.0 % % (0.0-0.2) Sodium Potassium Chloride Carbon Dioxide Anion Gap BUN Creatinine Estim Creat Clear Calc Estimated GFR Glucose Uric Acid Calcium Total Bilirubin AST ALT Alkaline Phosphatase Total Protein Albumin RPR Pending Blood Type A Positive Antibody Screen Negative 03/02/22 00:38 WBC RBC Hgb Hct MCV MCH MCHC RDW Plt Count MPV Immature Gran % (Auto) Neut % (Auto) Lymph % (Auto) [place] % (Auto) Eos % (Auto) Baso % (Auto) Lymph # (Auto) [place] # (Auto) Eos # (Auto) Baso # (Auto) Abs Immat Gran (auto) Absolute Neuts (auto) Absolute Nucleated RBC Nucleated RBC % Sodium 134 mmol/L L mmol/L (137-145) Potassium 3.7 mmol/L mmol/L (3.4-5.0) Chloride 106 mmol/L mmol/L (98-107) Carbon Dioxide 18 mmol/L L mmol/L (22-30) Anion Gap 10 mmol/L mmol/L (8-16) BUN 5 mg/dL L mg/dL (7-17) Creatinine 0.40 mg/dL L mg/dL (0.7-1.0) Estim Creat Clear Calc 209 ml/min ml/min Estimated GFR > 60 (59 - ) Glucose 94 mg/dL mg/dL (65-110) Uric Acid 4.4 mg/dL mg/dL (2.5-7.5) Calcium 8.5 mg/dL mg/dL (8.4-10.2) Total Bilirubin 0.4 mg/dL mg/dL (0.2-1.3) AST 21 U/L U/L (14-36) ALT 14 U/L U/L (6-35) Alkaline Phosphatase 178 U/L H U/L (38-126) Total Protein 7.0 g/dL g/dL (6.3-8.2) Albumin 3.5 g/dL g/dL (3.5-5.1) RPR Blood
--- NOTE | 2022-03-02 08:16 | WPDOBADMIT ---
Obstetrics - Admit Note Admission Note: record reviewed. No pertinent additions to the history and/or any subsequent changes in the physical findings that are not consistent with the expected course of the were found. IOl, complicated by +GBS, obesity and preeclampsia without severe features, denies any symptoms and bp normotensive at this time. SVE 1.5/60/-3 AROM large amount of clear odorless fluid, IUPC placed FHR cat 1, anticipate vaginal delivery, Additions to the history and/or subsequent changes in the physical findings follow. None.
[2022-03-02 15:05] LABS: Rapid Plasma Reagin Non-Reactive (NonReactive)
--- NOTE | 2022-03-02 21:04 | PM.OBPRVD ---
OB - Delivery Note Procedure Delivery date: 03/02/22 Procedure: Events: Chronic Hypertension, Positive Group B Strep (GBS), Preeclampsia w/o severe features and Other (LGA) Intrapartal Events: Chorioamnionitis and Other (fever) Induction method: Per Pitocin Protocol Delivery augmentation: Rupture of Membranes and Pitocin Delivery monitor: External FHT and Internal Uterine Route of delivery: Laceration Description: None Specimen: Yes Quantitative Blood Loss (ml): 160 Anesthesia type: Epidural Disposition: Floor Narrative: head delivered ANTONIO, anterior shoulder delivered under pubic bone, descent stopped, with suprapubic pressure rotated anterior shoulder and baby to OA. reached posteriorly and was able to deliver both shoulders and rest of the baby. Baby moving all extremities and to warmer to be assessed by automatic drilling machine operator. Mother and baby in stable condition. [place] Baby Date of : 03/02/22 Time of : 20:48 Weeks of gestation at delivery: 37 gender: Male Weight (pounds): 9 Weight (ounces): 5 presentation: vertex position: Right Occiput Anterior Placenta delivery description: Spontaneous Cord Vessel Description: 3 Vessels and Clamped/Cut
[2022-03-02] MEDS: CLINDAMYCIN 900 MG/D5W 50 ML 900 MG/50 ML PIGGYBACK 50 MG IVPB (22:01)
[2022-03-02] MEDS: GENTAMICIN 80MG/SOD CHL 50 ML 80 MG/50 ML BAG 100 MG IVPB (22:54)
--- NOTE | 2022-03-03 | OBPPTRN ---
Patient transferred to post room #284 via W/C. Support person present. Oriented to unit, room, information board, rooming in, admission packet and security measures. Patient verbalizes understanding.
[2022-03-03 00:05] VITALS: BP 129/88; PULSE 98; RESP 18; TEMP 36.6
[2022-03-03 04:10] VITALS: BP 145/90; PULSE 97; RESP 18; TEMP 36.9
[2022-03-03 05:41] LABS: Hematocrit 31.3 % (37.0-47.0); Hemoglobin 10.5 g/dL (12.0-15.0)
[2022-03-03 08:00] VITALS: BP 127/81; PULSE 81; RESP 18; TEMP 36.4; O2SAT 99
--- NOTE | 2022-03-03 08:16 | PM.OBPNVD ---
OB - PN: Subj Subjective Date/time seen: 03/03/22 08:16 Patient comments: no complaints, pain well controlled, incisional pain, tolerating diet and flatus present OB - PN: Obj Data Labs CBC & Chem 7: 03/03/22 04:13 03/02/22 00:38 Labs: Laboratory Results - last 24 hr 03/02/22 03/03/22 00:38 04:13 Hgb 10.5 L Hct 31.3 L RPR Non-reactive OB - PN A/P Plan day: 1 Plan: routine care Comments: No problems, routine care Time Spent With Patient Time: Total time spent is greater than 50% in coordination of care (as documented) at patient's floor/unit and/or counseling patient: Exam Const: General: comfortable, no acute distress and alert Resp: Effort & Inspection: normal respiratory effort Auscultation: no crackles, no rales and no rhonchi Cardio: Rate: regular rate Heart sounds: no click, no murmurs and no rubs GI: Inspection: non-distended GI Palp: No Tenderness to palpation present (GI) Auscultation: normal bowel sounds Other: Incision - CDI Extrem: General: normal to inspection, no pedal edema and no calf tenderness
--- NOTE | 2022-03-03 09:12 | WPDANLDPN2 ---
Anes-Prog Note L&D Date/Time: 03/03/22 09:12 Comfortable throughout: labor and delivery Neuraxial method: epidural Epidural/Spinal procedure site: clean & non-tender Neuro status: Neuro function grossly intact. Cardiovascular status: normal Respiratory status: normal Airway patency: baseline Mental status: baseline Post-Op hydration status: normal Vital Signs: Last Vital Signs Temp 36.4 C L 03/03/22 08:00 Pulse 81 03/03/22 08:00 Resp 18 03/03/22 08:00 BP 127/81 03/03/22 08:00 Pulse Ox 99 03/03/22 08:00 O2 Del Method Room Air 03/03/22 00:05 Pain score (VAS): 3 I/O: Intake & Output 03/02/22 03/03/22 03/03/22 23:59 07:59 15:59 Intake Total 1000 Output Total 210 1770 Balance -210 -770 Post-procedural complaints: none Patient feedback: Patient satisfied with anesthetic care.
[2022-03-03 12:11] VITALS: BP 130/67; PULSE 88; RESP 16; TEMP 36.6; O2SAT 100
--- NOTE | 2022-03-03 13:34 | PC.NURSE ---
[phone] Introductions were made, then consulted with patient to assess needs related to . Mother led the conversation with her?plans to feed?her infant with and supplementing with the bottled formula. Mother states her infant breastfeeds well causing her no pain but is not consistent about every 2-3 hours. Mother requests initiating pumping. Resources provided for inpatient and outpatient services using a resource guide and mom/baby guide. Breast pump provided due to mother's request. Instructions given on cleaning, care, usage, that there should be no pain, pumping schedule for milk production, collection, and storage of human milk. Parents are encouraged to record pumping schedule on the feeding sheet. Patient was assessed for correct placement, flange size, to pump for comfort and nipple stretching/stimulation for adequate milk production every 3 hours (8 times in 24 hours) 1-2 times at night. Mother voiced understanding of the education shared along with mom and baby guide for additional resource information. Reported to the primary RN.
[2022-03-03 16:10] VITALS: BP 136/90; PULSE 87; RESP 16; TEMP 36.7
[2022-03-03 22:55] VITALS: BP 130/74; PULSE 82; RESP 16; TEMP 36.2
[2022-03-04 03:00] VITALS: BP 124/79; PULSE 77; RESP 16; TEMP 37
[2022-03-04] MEDS: IBUPROFEN 600 MG TABLET PO (04:15)
--- NOTE | 2022-03-04 07:33 | PM.OBPNVD ---
OB - PN: Subj Subjective Date/time seen: 03/04/22 07:33 s/p vaginal delivery day 2, some soreness, still not feeling well, no abdominal pain, afebrile chorio diagnosed at delivery hx preeclampsia, bp's labile,no luo or visual changes OB - PN: Obj Data Labs CBC & Chem 7: 03/03/22 04:13 03/02/22 00:38 OB - PN A/P Plan day: 2 Plan: routine care Comments: suspected chorioamnionitis check labs continue to monitor preeclampsia cont to monitor Bp's and symptoms plan d/c tomorrow Time Spent With Patient Time: Total time spent is greater than 50% in coordination of care (as documented) at patient's floor/unit and/or counseling patient: Review of Systems Review of Systems: All systems reviewed & are unremarkable except as noted in HPI and below Exam Const: General: cooperative and healthy appearing Resp: Effort & Inspection: normal respiratory effort and able to speak in complete sentences GI: Inspection: normal to inspection Other: non tender : General: Yes deferred Skin: General skin exam: normal color Neuro: General: patient oriented x3
[2022-03-04 07:55] VITALS: BP 126/85; PULSE 77; RESP 16; TEMP 37.1; O2SAT 99
[2022-03-04] MEDS: ACETAMINOPHEN 325 MG TABLET 650 MG PO (08:03)
[2022-03-04] MEDS: MULTIVIT/MIN/PREN/FOL AC/IRON TABLET 1 TAB PO (08:03)
[2022-03-04 08:16] LABS: Basophils Absolute Auto 0.1 K/mm3 (0.0-0.1); Basophils Percent Auto 0.6 % (0.2-1.2); Eosinophils Absolute Auto 0.2 K/mm3 (0-0.3); Eosinophils Percent Auto 1.7 % (0-4.4); Hematocrit 30.8 % (37.0-47.0); Immature Granulocyte Absolute 0.14 K/mm3 (0.00-0.031); Immature Granulocyte Percent A 1.3 % (0-0.5); Lymphocytes Absolute Auto 2.27 K/mm3 (0.9-3.2); Mean Corpuscular HGB Conc 32.5 g/dl (32-36); Mean Corpuscular Hemoglobin 28.5 pg (26-34); Mean Corpuscular Volume 87.7 fl (80-100); Mean Platelet Volume 9.8 fl (7.4-10.4); Monocytes Absolute Auto 0.9 K/mm3 (0.1-0.6); Monocytes Percent Auto 8.5 % (2.6-8.5); Neutrophils Absolute Auto 7.2 K/mm3 (1.3-6.7); Neutrophils Percent Auto 66.9 % (45.5-73.1); Platelet Count Result 252 k/mm3 (150-375); Red Blood Count 3.51 M/mm3 (4.2-5.4); Red Cell Distribution Width 12.4 % (11.5-14.5); White Blood Count 10.8 K/mm3 (4.5-10.0)
[2022-03-04 08:29] LABS: Alanine Aminotransferase 18 U/L (6-35); Alkaline Phosphatase 110 U/L (38-126); Anion Gap 9 mmol/L (8-16); Aspartate Amino Transferase 28 U/L (14-36); Bilirubin,Total 0.1 mg/dL (0.2-1.3); Blood Urea Nitrogen 4 mg/dL (7-17); Calcium 8.5 mg/dL (8.4-10.2); Carbon Dioxide 24 mmol/L (22-30); Chloride 105 mmol/L (98-107); Estimated CRCL calculation 172 ml/min; Estimated Glomerular Filt Rate > 60; Glucose 91 mg/dL (65-110); Potassium 3.8 mmol/L (3.4-5.0); Sodium 138 mmol/L (137-145)
[2022-03-04 11:52] VITALS: BP 123/74; PULSE 70; RESP 16; TEMP 37.2; O2SAT 99
--- NOTE | 2022-03-07 16:53 | P.DS_ITS ---
DS: Admitting Diagnosis Discharge Date 03/04/22 Admitting Diagnosis iol, preeclampsia, IUI OB - DS: Summary OB Procedures : None OB Procedures Intrapartum: Spontaneous Vag Delivery OB Procedures: : None Time Spent with Patient Time attestation: Total time spent providing and/or coordinating discharge services: DS: Data Data Completed and Pending Pending studies at discharge: Pending at discharge 03/02/22 20:52 Surgical [PTH] Routine Discharge Plan Discharge Discharging Clinician: Cindi Bryant Patient Disposition: Home, Self-Care Activity: pelvic rest Diet: regular Discharge Instructions: Education: Mom and Baby Guide Given to: Mother Follow-Up: Call your delivering provider's office for an appointment to be seen in: 4 Weeks Mom and baby [facility] for the follow-up appointment. Appointment Date/Time: March 07, 2022 at 10:00 am What to expect at your follow-up visit: Blood Pressure Check Physical Assessment Call [phone] if you are unable to keep your appointment time. BREAST CARE: * Wear a snug supportive bra. * For engorgement discomfort: Breast Feeding: * Apply warm moist washcloths * Express milk as needed to relieve engorgement * Wear loose clothing Bottle Feeding: * May apply ice packs * For sore nipples: * Identify correct latch-on * Apply warm moist washcloths before and after nursing * Air dry nipples after nursing * May apply Lansinoh cream to nipples ACTIVITY: * Rest as much as possible. * Do not exercise or lift anything heavier than your baby (such as laundry or other children.) * Avoid stairs or driving as much as possible. * Do not put anything into the vagina. No douching, tampons, or sexual activity until seen by physician. NOTIFY PHYSICIAN IF YOU HAVE ANY QUESTIONS OR IF ANY OF THE FOLLOWING SYMPTOMS OCCUR: * If your vaginal bleeding becomes foul smelling. * If your vaginal bleeding becomes more heavy than a period or if your bleeding changes from pink to bright red. However, you may pass an occasional walnut- sized clot once or twice for the first week . * If you experience a sharp, shooting pain in you calves. * If you discover a hard, reddened area on your breast or if you experience flu- like symptoms. DIET: * Eat regular, well-balanced meals. * Drink plenty of fluids daily. If , drink to thirst. Patient Instructions: Antibiotic Form Stand Alone Forms: General Discharge Information Follow-up/Referrals: Cindi Bryant CNM [Certified Nurse Traffic Analysis Technician] - 4 Weeks Discharge Medications: Continued nifedipine 30 mg tablet extended release 24hr 30 mg PO DAILY levothyroxine 125 mcg tablet 125 mcg PO DAILY 28-800 mg-mcg Tablet 1 tablet PO DAILY Discontinued pantoprazole 40 mg tablet,delayed release (DR/EC) 40 mg PO DAILY Date of admission: 03/02/22 00:01 Primary Care Provider: Scooter White Admitting Provider: Aubree Garcia Attending physician on admission: Aubree Garcia Condition: Stable
== END 2022-03-04 13:46 | disposition home or self-care (01) | DRG 807 ==
LOC: ANHLDR 00:07 → ANHOB2 03-03 00:58
PROVIDERS: Advanced Practice Midwife; Admitting Provider Obstetrics & Gynecology; PCP Internal Medicine; Visit Provider Obstetrics & Gynecology
DX: O14.94 Unspecified pre-eclampsia, complicating childbirth (principal); Z37.0 Single live birth; Z3A.37 37 weeks gestation of pregnancy; O43.113 Circumvallate placenta, third trimester; O99.824 Streptococcus B carrier state complicating childbirth; O36.63X0 Maternal care for excessive fetal growth, third trimester, not applicable or unspecified; O99.214 Obesity complicating childbirth; E66.01 Morbid (severe) obesity due to excess calories; O99.284 Endocrine, nutritional and metabolic diseases complicating childbirth; E03.9 Hypothyroidism, unspecified
CPT/HCPCS: 36415; 80053; 81001; 84112; 84550; 85014; 85018; 85025; 86592; 86850; 86900; 86901; 88307; A9270; G0378; G0379; J0131; J0290; J1580; J2590; J2795; J7120

== ENCOUNTER → 2022-03-16 14:44 | Outpatient (CLI) | payer OTHER, SELFPAY ==
--- NOTE | ~2022-03-16 | CT_ITS ---
EXAMINATION: CT abdomen pelvis wo con DATE: 03/16/2022 14:59 INDICATION: Abdominal and pelvic pain, 2 weeks , vaginal delivery. TECHNIQUE: Computed tomography (CT) of the abdomen and pelvis was performed without intravenous contr ast. Automated exposure control and iterative reconstruction technique were employed. The dose-length product was 1052.20 mGy-cm. COMPARISON: None. FINDINGS: Lower thorax: Mild motion and minimal basilar atelectasis. Small hiatal hernia. Liver: Hepatomegaly. Biliary/Gallbladder: Gallbladder is absent. No bile duct dilation. Pancreas: No mass or duct dilation. Spleen: Normal. Adrenals:No mass. Kidneys: No mass, stone, or hydronephrosis. GI tract: No small or large bowel dilation. Surgically absent appendix. Mesentery/Peritoneum: No ascites, mass, or free air. Retroperitoneum: No mass. Pelvis: Bladder is mostly decompressed. Large uterus, with an ill-defined approximately 2 x 4 cm area in the endometrial cavity, isodense to the uterine parenchyma1. Soft Tissues: Soft tissues and body wall unremarkable. Bones: No acute osseous finding. IMPRESSION: Ill-defined approximately 2 x 4 cm isodensity in the endometrial cavity, may reflect normal resolving change, although retained products of conception could have a similar appearance. Reviewed, dictated and finalized at location K. RY PACKER IMPRESSION: Ill-defined approximately 2 x 4 cm isodensity in the endometrial cavity, may re flect normal resolving change, although retained products of concept ion could have a similar appearance.
== END ==
PROVIDERS: PCP Internal Medicine; Visit Provider Obstetrics & Gynecology
DX: R10.9 Unspecified abdominal pain (principal); R93.89 Abnormal findings on diagnostic imaging of other specified body structures
CPT/HCPCS: 74176

== ENCOUNTER 2022-04-04 16:48 | Emergency (ER) | payer OTHER, SELFPAY ==
[2022-04-04 17:24] VITALS: BP 119/73; PULSE 89; RESP 18; TEMP 36.4; O2SAT 99
--- NOTE | 2022-04-04 18:15 | ED.URI ---
HPI - URI/Sore Throat General Chief Complaint: Upper Respiratory Infection Stated Complaint: sore throat ear pain Time Seen by Provider: 04/04/22 18:15 Source: patient, RN notes reviewed and old records reviewed Mode of arrival: ambulatory Limitations: no limitations History of Present Illness HPI Narrative: 27-year-old female presents to the [facility] with complaints of sore throat and ear pain since Monday. Reports fever on Monday. Patient is currently breast feeding. Onset (ago): day(s) (3) Related Data Home Medications Medication Instructions Recorded Confirmed vit no.133-ferrous 1 tablet PO DAILY 02/18/22 04/04/22 fumarate 28 mg-folic acid 800 mcg tablet () Allergies Allergy/AdvReac Type Severity Reaction Status Date / Time No Known Allergies Allergy Verified 04/04/22 17:31 Review of Systems Review of Systems: All systems reviewed & are unremarkable except as noted in HPI and below Constitutional: Constitutional: Reports no additional constitutional complaints, Denies body ache(s), Denies chills, Denies fever(s) and Denies headache(s) Eyes: Eyes: Reports no additional eye complaints ENT: Reports as per HPI, Reports otalgia, Denies headache(s) and Reports sore throat Cardiovascular: Cardiovascular: Reports no additional cardiovascular complaints, Denies chest pain and Denies dyspnea Respiratory: Respiratory: Reports no additional respiratory complaints and Denies dyspnea Gastrointestinal: Gastrointestinal: Reports no additional gastrointestinal complaints and Denies abdominal pain Musculoskeletal: Musculoskeletal: Reports no additional musculoskeletal complaints Integumentary/Breasts: Skin/Breast: Reports system reviewed and no additional complaints, except as docu Neurologic: Reports system reviewed and no additional complaints, except as documented and Denies headache(s) Psychiatric: Psychiatric: Reports no additional psychiatric complaints Allergic/Immunologic: Allergic/Immunologic: Reports no additional allergic/immunologic complaints PMFSH Past Medical History Medical History Acute hemorrhoid Anxiety GERD (gastroesophageal reflux disease) History of adverse reaction to anesthesia HTN (hypertension) Hx of hemorrhoids Hypothyroid Wears glasses Surgical History Surgical History H/O tubal ligation History of appendectomy History of lumpectomy History of ovarian cystectomy Hx of cholecystectomy Family History Family History Father Hypertension Mother Alcoholism Thyroid disorder Grandparent Breast cancer Hypertension Thyroid disorder Lung cancer Social History Social History Smoking status: Never smoker Substance use: never Substance use type: does not use Lack of Transportation: No Lack of Food: Never True Current Housing: I Have Housing Concerned About Future Housing: No Difficulty Paying Gas/Electric Bills: No Difficulty Paying for Meds: No Currently Unemployed: No Education: Associate Degree Difficulty w/ Childcare or Family Care: No Gender identity (if verbalized by the patient): Female Spiritual care concerns: No Comments At the time of my signature, I reviewed and agree with the nursing past medical, surgical, social, and family history. There is no relevant family history pertinent to the patient complaint. Exam Const: General: cooperative, healthy appearing, comfortable, no acute distress, well developed, alert and well nourished Nutritional Appearance: well nourished and obese Orientation/consciousness: patient oriented x3 Limitations: no limitations HENMT: Head: normal to inspection Ears: external ears normal and TM abnormal with myringotomy tube present bilateral; not erythematous Fa
== END 2022-04-04 18:26 | disposition home or self-care (01) ==
PROVIDERS: Emergency Provider Nurse Practitioner; PCP Internal Medicine
DX: J02.0 Streptococcal pharyngitis (principal); I10 Essential (primary) hypertension; E03.9 Hypothyroidism, unspecified
CPT/HCPCS: 87880; 99213; G0463

== ENCOUNTER 2022-06-16 10:17 | Outpatient (CLI) | payer OTHER, SELFPAY ==
[2022-06-16 11:03] LABS: Beta HCG Quantitative 21.28 mIU/ML
== END 2022-06-16 10:18 | disposition home or self-care (01) ==
LOC: ANHLAB 10:20
PROVIDERS: PCP Internal Medicine; Visit Provider Advanced Practice Midwife
DX: Z32.01 Encounter for pregnancy test, result positive (principal)
CPT/HCPCS: 36415; 84702

== ENCOUNTER 2022-06-18 09:54 | Outpatient (CLI) | payer OTHER, SELFPAY ==
[2022-06-18 10:44] LABS: Beta HCG Quantitative 5.87 mIU/ML
== END 2022-06-18 09:55 | disposition home or self-care (01) ==
PROVIDERS: PCP Internal Medicine; Visit Provider Advanced Practice Midwife
DX: Z32.01 Encounter for pregnancy test, result positive (principal)
CPT/HCPCS: 36415; 84702

== ENCOUNTER 2022-09-11 12:37 | Emergency (ER) | payer OTHER, SELFPAY ==
--- NOTE | ~2022-09-11 | XR_ITS ---
EXAMINATION: XR lumbar spine 2-3V DATE: 09/11/2022 13:16 INDICATION: Back pain. TECHNIQUE: 3 views of lumbar spine were obtained. COMPARISON: Lumbar spine radiographs 11/11/2017, CT abdomen and pelvis 03/16/2022 FINDINGS: Bone alignment is normal. Vertebral body heights are normal. There is mildly decreased disc height at L3-L4. The facet joints are normal. Surgical clips in the right upper quadrant are likely from cholecystectomy. IMPRESSION: 1. Mild lumbar spondylosis. Reviewed, dictated and finalized at location A. IMPRESSION: 1. Mild lumbar spondylosis.
--- NOTE | ~2022-09-11 | US_ITS ---
EXAMINATION: US pelvic complete w TV DATE: 09/11/2022 15:56 INDICATION: Right pelvic pain. TECHNIQUE: Multiple transabdominal and transvaginal sonographic images of the pelvis were obtained. COMPARISON: CT abdomen and pelvis 03/16/2022 FINDINGS: TRANSABDOMINAL ULTRASOUND: The uterus measures 9.1 x 4.3 x 5.4 cm. There is physiologic free fluid in the pelvis. TRANSVAGINAL ULTRASOUND: The endometrial complex measures 11 mm in thickness. There are nabothian cysts in the cervix. The rig ht ovary measures 1.8 x 1.2 x 1.2 cm. The left ovary measures 2.0 x 2.9 x 2.3 cm. IMPRESSION: 1. Normal pelvis. Reviewed, dictated and finalized at location A. IMPRESSION: 1. Normal pelvis.
[2022-09-11 12:37] VITALS: BP 137/85; PULSE 78; RESP 16; TEMP 36.4; O2SAT 100
--- NOTE | 2022-09-11 12:56 | ED.BACK ---
HPI - Back Pain/Injury General Chief Complaint: Back Pain/Injury Stated Complaint: back pain Time Seen by Provider: 09/11/22 12:42 History of Present Illness HPI Narrative: 27-year-old female who is now 6 weeks of low back pain x2-1/2 weeks. States the pain is in her right low back and does not radiate. It is worse with certain positions. She has not tried any medicines for her pain because she is breast-feeding and is unsure what she can take. 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 She denies any dysuria, urgency, frequency, nausea, vomiting, saddle anesthesia, constipation. She also has been having dyspareunia for the past 2 weeks, has contacted Cindi Bryant in her OB office who has ordered an ultrasound. No vaginal discharge or bleeding. She is unsure if this is related to her back pain but she states that possibly she is having some right-sided pelvic pain as well. She did have an epidural with her delivery 6 months ago. Related Data Home Medications Medication Instructions Recorded Confirmed vit no.133-ferrous 1 tablet PO DAILY 02/18/22 04/04/22 fumarate 28 mg-folic acid 800 mcg tablet () Allergies Allergy/AdvReac Type Severity Reaction Status Date / Time No Known Allergies Allergy Verified 09/11/22 12:39 Review of Systems Review of Systems: Gen: Denies fevers or chills Eyes: Denies eye pain or visual change ENT: Denies congestion Respiratory: Denies shortness of breath or cough CV: Denies chest pain or palpitations GI: Denies abdominal pain nausea, emesis or diarrhea : denies burning, urgency, frequency or hematuria Musculoskeletal: Reports back pain Neuro: Denies numbness, tingling, weakness or focal weakness Skin: Denies rash Except as documented, all other systems reviewed and negative [facility] Past Medical History Medical History Acute hemorrhoid Anxiety GERD (gastroesophageal reflux disease) History of adverse reaction to anesthesia HTN (hypertension) Hx of hemorrhoids Hypothyroid Wears glasses Surgical History Surgical History H/O tubal ligation History of appendectomy History of lumpectomy History of ovarian cystectomy Hx of cholecystectomy Family History Family History Father Hypertension Mother Alcoholism Thyroid disorder Grandparent Breast cancer Hypertension Thyroid disorder Lung cancer Social History Social History Smoking status: Never smoker Substance use: never Substance use type: does not use Lack of Transportation: No Lack of Food: Never True Current Housing: I Have Housing Concerned About Future Housing: No Difficulty Paying Gas/Electric Bills: No Difficulty Paying for Meds: No Currently Unemployed: No Education: Associate Degree Difficulty w/ Childcare or Family Care: No Living arrangements: with family Gender identity (if verbalized by the patient): Female Spiritual care concerns: No Exam Narrative: APPEARANCE: Anxious appearing. no pain or distress, well-nourished. Head: Normocephalic and atraumatic. EYES: PERRLA/EOMI, conjunctivae clear NOSE: No nasal drainage EARS: External ear normal in appearance THROAT: Oropharynx is clear. Mucous membranes are moist. NECK: Supple. No adenopathy, no masses. RESPIRATORY: Airway patent, respirations nonlabored. Clear to auscultation bilaterally, no rales, rhonchi, wheezing. CARDIOVASCULAR: Regular rate and rhythm without murmurs, rubs, or gallops. ABDOMINAL: No abdominal tenderness on exam. Normoactive bowel sounds. Soft, nontender, nondistended. No rebound tenderness or guarding. MUSCULOSKELETAL: Midline tenderness to L3. Extremities are warm and w
[2022-09-11] MEDS: ACETAMINOPHEN 325 MG TABLET 650 MG PO (13:39)
[2022-09-11] MEDS: LIDOCAINE 5% PATCH 1 PATCH TRANSDERM (13:39)
[2022-09-11] MEDS: IBUPROFEN 600 MG TABLET PO (13:39)
[2022-09-11 14:04] LABS: Appearance Urine Clear (Clear); Bilirubin Urine Negative (Negative); Blood Urine Negative (Negative); Color Urine Yellow (Yellow); Glucose Urine UA Negative (Negative); Ketones Urine Negative (Negative); Leukocyte Esterase Ur Negative LEU/UL (Negative); Nitrate Urine Negative (Negative); Protein Urine Negative (Negative); Specific Grav Ur 1.025 (1.001-1.035); pH Urine 6.5 (5.0-9.0)
[2022-09-11 14:09] LABS: Add Urine Microscopic? NO
[2022-09-11 15:00] LABS: Basophils Absolute Auto 0.1 K/mm3 (0.0-0.1); Basophils Percent Auto 0.9 % (0.2-1.2); Eosinophils Absolute Auto 0.1 K/mm3 (0-0.3); Eosinophils Percent Auto 1.4 % (0-4.4); Hematocrit 37.2 % (37.0-47.0); Hemoglobin 12.4 g/dL (12.0-15.0); Immature Granulocyte Absolute 0.04 K/mm3 (0.00-0.031); Immature Granulocyte Percent A 0.4 % (0-0.5); Lymphocytes Percent Auto 27.2 % (18.3-44.2); Mean Corpuscular HGB Conc 33.3 g/dl (32-36); Mean Corpuscular Hemoglobin 28.9 pg (26-34); Mean Corpuscular Volume 86.7 fl (80-100); Mean Platelet Volume 9.2 fl (7.4-10.4); Monocytes Absolute Auto 0.7 K/mm3 (0.1-0.6); Neutrophils Percent Auto 63.1 % (45.5-73.1); Platelet Count Result 310 k/mm3 (150-375); Red Blood Count 4.29 M/mm3 (4.2-5.4); Red Cell Distribution Width 11.7 % (11.5-14.5); White Blood Count 9.6 K/mm3 (4.5-10.0)
[2022-09-11 15:12] LABS: Alanine Aminotransferase 22 U/L (6-35); Albumin Level 4.1 g/dL (3.5-5.1); Alkaline Phosphatase 70 U/L (38-126); Anion Gap 10 mmol/L (8-16); Aspartate Amino Transferase 24 U/L (14-36); Bilirubin,Total 0.4 mg/dL (0.2-1.3); Blood Urea Nitrogen 10 mg/dL (7-17); Calcium 8.5 mg/dL (8.4-10.2); Carbon Dioxide 23 mmol/L (22-30); Chloride 104 mmol/L (98-107); Estimated CRCL calculation 153 ml/min; Estimated Glomerular Filt Rate > 60; Glucose 103 mg/dL (65-110); Potassium 3.8 mmol/L (3.4-5.0); Sodium 137 mmol/L (137-145)
[2022-09-11 16:23] VITALS: PULSE 72; RESP 16; O2SAT 99
== END 2022-09-11 16:24 | disposition home or self-care (01) ==
PROVIDERS: Emergency Provider Physician Assistant; PCP Internal Medicine
DX: M47.816 Spondylosis without myelopathy or radiculopathy, lumbar region (principal); I10 Essential (primary) hypertension; E03.9 Hypothyroidism, unspecified; K21.9 Gastro-esophageal reflux disease without esophagitis; Z90.49 Acquired absence of other specified parts of digestive tract
CPT/HCPCS: 36415; 72100; 76830; 76856; 80053; 81003; 81025; 85025; 99284; A9270

== ENCOUNTER 2023-09-12 08:41 | Outpatient (CLI) | payer OTHER, SELFPAY | END 2023-09-12 08:42 | disposition home or self-care (01) | LOC: ANHSURGERY 08:47 | PROVIDERS: Visit Provider Obstetrics & Gynecology | DX: Z01.818 Encounter for other preprocedural examination (principal); N83.209 Unspecified ovarian cyst, unspecified side | CPT/HCPCS: 36415; 86850; 86900; 86901 ==

== ENCOUNTER 2023-09-15 00:47 | Day surgery (SDC) | payer OTHER, SELFPAY ==
[2023-09-11 14:12] VITALS: BMI 33.0
--- NOTE | 2023-09-11 14:13 | PC.NURSE ---
Report to the Outpatient Waiting Room, entrance under the green pavilion located off [facility], at time _0730_ on date _[id number]_. Planned Procedure Time: _0930_. Time changes happen often and if your time is changed the preop area will call you the afternoon before. - You and your visitor will be asked to self-screen and do not enter if you have any COVID symptoms. - A mask is optional within the hospital at this time. Patients may have clear liquids (water, carbonated beverages, clear teas, apple juice) until 3 hours prior to surgery with a maximum of 20 ounces. - No food from midnight until time of surgery Take the following medications with a SIP of water the morning of surgery: ___Levothyroxine DO NOT STOP ANY OF YOUR OTHER PRESCRIPTION MEDICATIONS PRIOR TO SURGERY ?EXCEPT THE FOLLOWING Medications to discontinue per physician ___Says was told to stop her Phentermine a few days before surgery.____ Date to take last dose Please no make-up, nail moldovan, hairspray, perfume, deodorant, or body powder the day of surgery. No jewelry (including any body piercings) or valuables the day of surgery, leave them at home. Please take a shower or bath the night before, or the morning of, surgery with an antibacterial soap. Wear comfortable, loose fitting clothing. - Jewelry must be removed prior to entering the operating room. Rings and piercings that are not removed may be cut off. - The hospital will not accept responsibility for valuables. - Please leave all valuables, including medications, at home the day of surgery. If you are going home after surgery, a licensed auto haulaway driver must drive you home. - NO public transportation without another adult if you receive anesthesia. - We recommend that an adult stay with you for 24 hours following discharge. - We also recommend that you do not drive, make important decision, drink alcoholic beverages, or take any drugs that were not prescribed by your health care provider for at least 24 hours after your discharge time. Follow any additional instructions given to you from your surgeon. If you or anyone in your household have experienced Covid symptoms in the past week, please notify your surgeon or the nurse liaison at the phone number below for possible testing. Telephone instructions given to __Megan___and asked if any additional questions and then verbalized understanding. Patient advised to call surgeon office or pre surgery nurse liaison [phone] if any additional questions.
--- NOTE | 2023-09-12 06:51 | PM.IMHP ---
H&P: HPI History of Present Illness Date/Time: 09/12/23 06:51 Chief Complaint: Pelvic pain and dyspareunia Narrative: 28-year-old female 3 para 3 with complaints of pelvic pain and dyspareunia. She has a history of a right ovarian cystectomy and has endometriosis. She continues have pain discomfort and dyspareunia reviewed her ultrasound free fluid was seen she has intractable dyspareunia. She is considering delivery and so she will undergo chromopertubation 17 easily. Risks and benefits reviewed including but not exclusive of , aspiration wound, bleeding, transfusion, perforation injury to bowel, bladder, ureters, or other internal organs with need for open laparotomy. She received the ACO[employer] handout entitled laparoscopy. She had all questions answered. She asked to proceed PMFSH Past Medical History Medical History Acute hemorrhoid Anxiety GERD (gastroesophageal reflux disease) History of adverse reaction to anesthesia HTN (hypertension) Hx of hemorrhoids Hypothyroid Wears glasses Surgical History Surgical History H/O tubal ligation History of appendectomy History of lumpectomy History of ovarian cystectomy Hx of cholecystectomy Family History Family History Father Hypertension Mother Alcoholism Thyroid disorder Grandparent Breast cancer Hypertension Thyroid disorder Lung cancer Social History Social History Smoking status: Never smoker Substance use: never Substance use type: does not use Lack of Transportation: No Lack of Food: Never True Current Housing: I Have Housing Concerned About Future Housing: No Difficulty Paying Gas/Electric Bills: No Difficulty Paying for Meds: No Currently Unemployed: No Education: Associate Degree Difficulty w/ Childcare or Family Care: No Living arrangements: with family Gender identity (if verbalized by the patient): Female Spiritual care concerns: No Meds Home Medications and Allergies Home Medications Medication Instructions Recorded Confirmed Type levothyroxine 137 mcg tablet 137 mcg PO DAILY 09/11/23 09/11/23 History phentermine 37.5 mg capsule 37.5 mg PO DAILY 09/11/23 09/11/23 History Allergies Allergy/AdvReac Type Severity Reaction Status Date / Time No Known Allergies Allergy Verified 09/11/23 14:06 Exam Const: General: cooperative, healthy appearing and comfortable Orientation/consciousness: oriented to person, oriented to place and oriented to time HENMT: Head: normal to inspection Resp: Effort & Inspection: normal respiratory effort Cardio: Rate: regular rate Rhythm: regular rhythm Heart sounds: S1 normal heart sound present and S2 normal heart sound present GI: Inspection: normal to inspection Auscultation: normal bowel sounds : External Female Exam: normal external appearance Speculum Exam - Vagina: normal appearance of the vagina Speculum Exam - Cervix: normal appearance of the cervix Bimanual exam- vagina & uterus: non-tender Bimanual Exam- Adnexa, other: tender on the right Assessment and Plan Assessment and plan (1) Pelvic pain: Code(s): R10.2 - Pelvic and perineal pain Status: Acute (2) Right ovarian cyst: Code(s): N83.201 - Unspecified ovarian cyst, right side Status: Acute Plan Will proceed with laparoscopic right cystectomy and pre proceed as needed. Patient will undergo chromopertubation well under
[2023-09-15] VITALS (10 sets, daily range): BP systolic 95–121; BP diastolic 66–84; PULSE 63–85; RESP 11–24; TEMP 36.3–36.4; O2SAT 94–100
--- NOTE | 2023-09-15 05:12 | WPDHPUPDATE1 ---
History and Physical Update Update Date/Time: 09/15/23 05:12 History and Physical has been reviewed, including an updated exam of the patient. There are NO changes in the patient's condition. Risks, benefits, and alternatives have been discussed and questions answered. Patient agrees to proceed with procedure.
[2023-09-15] MEDS: KETOROLAC 15 MG/ML VIAL (*BKC) IV PUSH (07:30)
[2023-09-15] MEDS: ACETAMINOPHEN 500 MG TABLET 1000 MG PO (07:30)
--- NOTE | 2023-09-15 07:53 | WPDANESEPPF ---
Anes - Initial Pre Proc Eval Procedure: Operation Date: 09/15/23 08:45 Proposed Procedures p Diagnostic Laparoscopy, Right Ovarian Cystectomy with Chromopertubation - Romulo Mane MD Date/Time: 09/15/23 07:53 Surgeon: Romulo Mane MD Pre Op Diagnosis: Rt Ovarian Cyst, Pelvic Pain Patient Data Age: 28 Gender: F Height: 1.65 m Weight: 90.15 kg Last Vital Signs Temp 97.4 F L 09/15/23 07:30 Pulse 81 09/15/23 07:30 Resp 14 09/15/23 07:30 BP 120/66 09/15/23 07:30 Pulse Ox 100 09/15/23 07:30 O2 Del Method Room Air 09/15/23 07:30 Allergies Allergy/AdvReac Type Severity Reaction Status Date / Time No Known Allergies Allergy Verified 09/15/23 07:37 Home Medications Medication Instructions Recorded Confirmed Type levothyroxine 137 mcg tablet 137 mcg PO DAILY 09/11/23 09/11/23 History phentermine 37.5 mg capsule 37.5 mg PO DAILY 09/11/23 09/11/23 History hydrocodone 5 mg-acetaminophen 325 1 tablet PO Q4H PRN pain #20 tabs 09/15/23 Rx mg tablet Patient hx anesthesia problems: none Family hx anesthesia problems: none Results Review: All pre-operative results and documents have been reviewed as part of the pre-operative evaluation. [facility] Past Medical History Medical History Acute hemorrhoid Anxiety GERD (gastroesophageal reflux disease) History of adverse reaction to anesthesia HTN (hypertension) Hx of hemorrhoids Hypothyroid Wears glasses Surgical History Surgical History H/O tubal ligation History of appendectomy History of lumpectomy History of ovarian cystectomy Hx of cholecystectomy Family History Family History Father Hypertension Mother Alcoholism Thyroid disorder Grandparent Breast cancer Hypertension Thyroid disorder Lung cancer Social History Social History Smoking status: Never smoker Substance use: never Substance use type: does not use Lack of Transportation: No Lack of Food: Never True Current Housing: I Have Housing Concerned About Future Housing: No Difficulty Paying Gas/Electric Bills: No Difficulty Paying for Meds: No Currently Unemployed: No Education: Associate Degree Difficulty w/ Childcare or Family Care: No Living arrangements: with family Gender identity (if verbalized by the patient): Female Spiritual care concerns: No Anes - Eval Final PreProcedure Day of Procedure 09/15/23 07:53 Patient weight: obese Heart: regular rate and rhythm Lungs: clear to auscultation Airway: Mallampati scale class II Neurological: alert and oriented Last oral intake: >/= 8 hours ASA classification: II Emergent: no Anesthetic plan: proceed Anesthesia type and monitoring: general ETT and standard monitoring Results Review: All pre-operative results and documents have been reviewed as part of the pre-operative evaluation. Informed Consent: The patient's anesthetic plan and its attendant risks and benefits were discussed with the patient/family/POA. Questions were solicited and answers provided to the satisfaction of the patient/family/POA.
[2023-09-15] MEDS: LACTATED RINGERS 1,000 ML 30 ML IV CONT ×2 (08:00→10:00)
--- NOTE | 2023-09-15 09:25 | P.OP_ITS ---
Procedure Note - Detailed Date of Procedure 09/15/23 Pre-op Diagnosis Rt Ovarian Cyst, Pelvic Pain Post-op Diagnosis Other (Right ovarian cyst/ pelvic adhesions/pelvic pain /endometriosis) Procedure Performed laparoscopic destruction of right ovarian cyst. Laparoscopic destruction endometriosis. Chromopertubation /lysis of adhesions Surgeon Romulo Mane MD Anesthesia General Indications this is 28-year-old female with pelvic pain and right ovarian cyst Findings simple appearing right ovarian cyst. Multiple adhesions from uterus to the bowel. This slowed areas of endometriosis low the right left uterosacral ligament. Small right ovarian cyst. The appendix and gallbladder. Surgically absent. Fallopian tubes appeared patent Description of Procedure patient is prepped and draped in the normal sterile fashion placed in the dorsal lithotomy position. Under excellent general trach anesthesia weighted speculum placed in posterior fornix of vagina. Anterior lip of the cervix grasped with a single-tooth tenaculum. Mott's cannula inserted attached to the single-tooth to be used later for uterine manipulation. Bladder was emptied of clear urine the weighted speculum was removed. The gloves were changed. An infraumbilical incision made the Veress needle passed in the abdomen. Abdomen filled with CO2 gas [id number]. 5Mm trocar advanced under direct visualization assuring no injury. Patient placed in Trendelenburg and a suprapubic incision made. The 5mm trocar advanced under direct visualization assuring no injury. About 15cc of serosanguineous fluid was seen in the cul-de- sac and this was suction and removed. Adhesions were seen from the uterus to the cul-de-sac and to the colon and small bowel and this was sharply dissected using monopolar cautery. Irrigation undertaken until clear. Small areas of endometriosis along the posterior surface of the uterus were cauterized with the at 25 w per 2nd. Is a small right ovarian cyst was noted this was opened in linear fashion and drained of follicular fluid. Photo documentation undertaken. Next the methylene blue was pushed through the cervix and appeared to spill bilaterally. Irrigation then undertaken to clear. The lower site removed. The gas removed the abdomen. The upper site removed. The incisions closed with 4 Monocryl and glue. Instruments removed from the vagina the patient went recovery in satisfactory condition. All sponge, needle, instrument counts were correct. There were no immediate complications Estimated Blood Loss 5 Drains No Packing No Pathology None sent Complications No immediate complications Condition Stable Disposition PACU
--- NOTE | 2023-09-15 09:35 | SUR.OPER ---
prior to induction of anesthesia patient complained of irritaion to left eye. 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 pt. reported resolution of discomfort
[2023-09-15] MEDS: fentaNYL CITRATE INJ (*CRX) 100 MCG/2 ML VIAL 25 MCG IV PUSH ×8 (10:00→10:14)
[2023-09-15] MEDS: HYDROmorphone HCL INJ (*CRX) 1 MG/ML SYR 0.5 MG IV PUSH ×4 (10:20→11:08)
[2023-09-15] MEDS: oxyCODONE HCL (*CRX) 5 MG TAB IR PO (11:01)
== END 2023-09-15 12:03 | disposition home or self-care (01) ==
PROVIDERS: Visit Provider Obstetrics & Gynecology
PROC: (CPT 49320; principal; 2023-09-15 08:45)
DX: N83.201 Unspecified ovarian cyst, right side (principal); N73.6 Female pelvic peritoneal adhesions (postinfective); N80.3C3 Endometriosis of bilateral uterosacral ligament(s), unspecified depth; E03.9 Hypothyroidism, unspecified; E66.9 Obesity, unspecified; Z68.33 Body mass index [BMI] 33.0-33.9, adult
CPT/HCPCS: 58662; 36415; 86850; 86900; 86901; A9270; J1100; J1170; J1885; J2250; J2405; J2704; J3010; J7120; Q9968

== ENCOUNTER 2023-12-10 19:41 | Emergency (ER) | payer OTHER, SELFPAY ==
[2023-12-10 19:45] VITALS: BP 119/86; PULSE 98; RESP 20; TEMP 36.9; O2SAT 100
--- NOTE | 2023-12-10 19:59 | ED.GENADULT ---
HPI - General Adult General Chief complaint: Skin/Abscess/Foreign Body Stated complaint: Rash Source: patient Mode of arrival: ambulatory Limitations: no limitations History of Present Illness HPI narrative: Patient presents for evaluation of a painful rash to her bilateral thighs. Symptom onset about a week ago after being supposed to poison sumac. She believes her dogs brought into the home. They were also working out in the yd. No fever, chills, nausea, vomiting. Pain has been causing her some problems sleeping. She has not been taking any medications to assist with her symptoms. She did apply dry dressing. Related Data Home Medications Medication Instructions Recorded Confirmed levothyroxine 137 mcg tablet 137 mcg PO DAILY 09/11/23 12/10/23 phentermine 37.5 mg capsule 37.5 mg PO DAILY 09/11/23 12/10/23 Allergies Allergy/AdvReac Type Severity Reaction Status Date / Time No Known Allergies Allergy Verified 12/10/23 19:54 Review of Systems Review of Systems: CONSTITUTIONAL: Denies fever, chills, or sweats. EYES: Denies visual changes, redness, or discharge. ENT: Denies rhinorrhea, congestion, sore throat, or otalgia. CARDIOVASCULAR: Denies chest pain, palpitations, or edema. RESPIRATORY: Denies cough or dyspnea. GASTROINTESTINAL: Denies abdominal pain, nausea, vomiting, or diarrhea. GENITOURINARY: Denies dysuria or hematuria. SKIN: Reports painful rash to bilateral thighs MUSCULOSKELETAL: Denies back pain, joint pain, or myalgia. NEUROLOGIC: Denies headache, numbness, dizziness, or weakness. PSYCHIATRIC: Denies anxiety or depression. [facility] Past Medical History Medical History Acute hemorrhoid Anxiety GERD (gastroesophageal reflux disease) History of adverse reaction to anesthesia HTN (hypertension) Hx of hemorrhoids Hypothyroid Wears glasses Surgical History Surgical History H/O tubal ligation History of appendectomy History of lumpectomy History of ovarian cystectomy Hx of cholecystectomy Family History Family History Father Hypertension Mother Alcoholism Thyroid disorder Grandparent Breast cancer Hypertension Thyroid disorder Lung cancer Social History Social History Smoking status: Never smoker Substance use: never Substance use type: does not use Lack of Transportation: No Lack of Food: Never True Current Housing: I Have Housing Concerned About Future Housing: No Difficulty Paying Gas/Electric Bills: No Difficulty Paying for Meds: No Currently Unemployed: No Education: Associate Degree Difficulty w/ Childcare or Family Care: No Living arrangements: with family Gender identity (if verbalized by the patient): Female Spiritual care concerns: No Exam Narrative: GENERAL: Well-appearing, well-nourished, and in no acute distress. HEAD: Normocephalic, atraumatic. EYES: PERRLA and EOMI. ENT: Nares clear, no rhinorrhea or epistaxis. Mucous membranes moist. Oropharynx without tonsillar hypertrophy exudate or other lesions. Bilateral TMs pearly howell nonbulging NECK: Supple. No adenopathy or masses. No carotid bruits or JVD CHEST: Clear to auscultation. No respiratory distress. No wheezes rales or rhonchi HEART: Regular rate and rhythm. No murmur heard. Normal peripheral pulses. ABDOMEN: Soft, nontender, nondistended, normal active bowel sounds. EXTREMITIES: Normal range of motion. No edema. SKIN: There are patchy areas of erythema also in a linear formation to the bilateral thighs. There is a large area of confluent erythema with some serous drainage noted to right thigh. This is covered in dry dressing that has a small amount of serous shadowing present NEURO: No focal deficits. Alert and oriented x3.
== END 2023-12-10 20:02 | disposition home or self-care (01) ==
PROVIDERS: Emergency Provider Nurse Practitioner
DX: L03.115 Cellulitis of right lower limb (principal); L23.7 Allergic contact dermatitis due to plants, except food; K21.9 Gastro-esophageal reflux disease without esophagitis; I10 Essential (primary) hypertension; E03.9 Hypothyroidism, unspecified
CPT/HCPCS: 99213; G0463

== ENCOUNTER 2024-04-19 17:03 | Outpatient (CLI) | payer OTHER, SELFPAY | END 2024-04-19 17:04 | disposition home or self-care (01) | LOC: ANHLAB 17:06 | PROVIDERS: Visit Provider Advanced Practice Midwife | DX: Z31.89 Encounter for other procreative management (principal) | CPT/HCPCS: 36415; 84702 ==

== ENCOUNTER 2024-06-19 15:51 | Emergency (ER) | payer OTHER, SELFPAY ==
--- OUTSIDE RECORDS SUMMARY | 2024-06-19 15:54 | XMS_ITS | Encounter Summary ---
Author Organization [facility] Address [address] [place] [address] Care Team Providers Care Relief Operator Name Role Phone Scooter White DO Primary Care Provider Encounter Details Date Type Department Care Team (Late st Contact Info) Description 11/06/2018 Lab Requisition [facility] Pathology Lab [address] [place] [address] Cindi Herrera MD [address] [place] [address] Enlarged lymph nodes Social History Tobacco Use Types Packs/Day Years Used Date Smoking Tobacco: Never Smokeless Tobacco: Never Alcohol Use Standard Drinks/Week Comments No 0 (1 standard drink = 0.6 oz pur e alcohol) Sex and Gender Information Value Date Recorded Sex Assigned at Not on file Gender Identity Not on file Sexual Orientation Not on file documented as of this encounter Plan of Treatment Not on file documented as of this encounter Procedures Procedure Name Priority Date/Time Associated Diagnosis Comments FLOW CYTOMETRY TISSUE PANEL Routine 11/05/2018 11:02 AM CDT Enlarged lymph nodes documented in this encounter Results * FLOW CYTOMETRY TISSUE PANEL (11/05/2018 11:02 AM CDT) Case Report Flow Cytometry Case: [id number] Authorizing Provider: Cindi Herrera MD Collected: 11/05/2018 11:02 AM Pathologist: Alexa Weinberg MD Received: 11/06/2018 02:01 PM Specimen: Cervical Lymph Node , Left 9 5:33 PM [facility] Final Diagnosis Lymph node, left cervical, flow cytometric immunophenotypic analysis: - No evidence of non-Hodgkin lymphoma. - See interpretation. 9 5:33 PM [facility] Flow Cytometry Interpretation The left cervical lymph node specimen has a viability of 86%. The majority of events are in the lymphocyte gate. Within this region, there is no monoclonal B-cell population identified (kappa:lambda ratio is 1.3:1). There is no immunophenotypically aberrant or expanded T-cell population seen (CD4:CD8 ratio is 5.1:1). A touch imprint prepared from the flow cytometry specimen is reviewed for supplier quality specialist purposes. In summary, the left cervical lymph node specimen shows no evidence of a non-Hodgkin lymphoma. Correlation with additional clinical information and the concurrent biopsy specimen is required. KR 9 5:33 PM [facility] Flow Cytometry Results Differential Result Comment Flow Cell Count /uL [id number] Total Viability % 86.0 Lymphocytes % 97 Dim CD45 Region % 0 Monocytes % 1 Granulocytes % 1 9 5:33 PM [facility] Reason for test Enlarged lymph nodes 785.6 9 5:33 PM [facility] Client Specimen ID # [id number] 9 5:33 PM [facility] Number of markers 16 were performed. A Flow CD3 A Flow CD10 A Flow CD20 A Flow CD23 A Flow CD2 A Flow CD4 A Flow CD1a A Flow CD5 A Flow CD19 A Flow CD34 A Flow CD45 A Flow CD7 A Flow CD8 A Flow CD30 A [place]+CD19+ A Lambda+CD19+ 9 5:33 PM [facility] Disclaimer Test performed at [facility], [address] [place] [address], [id number]. *The established laboratory minimum viability is 70%. Values below the minimum may result in the failure to find an abnormal population of cells. This test was developed and its performance characteristics determined by the Flow Cytometry Laboratory. It has not been cleared by the [place] Food and Drug Administration (FDA). The FDA has determined that such clearance or approval is not necessary. This test is used for clinical purposes. It should not be regarded as investigational or for research. This laboratory is regulated under the Clinical Laboratory Improvement Amendments of 1998 (CLIA) as a qualified to perform high complexity clinical testing. 9 5:33 PM CDT [facility] Embedded Images 9 5:33 PM CDT [facility] Pathology/Cytolo gy ENTIRE CERVICAL LYMPH NODE / Unknown 11/05/2018 11:02 AM CDT 11/06/2018 2:01 PM CDT Cindi Herrera MD LAB - PATHOLOGY/CYTO LOGY ORDERABLES Performing Organization Address City/State/[facility] Co de Phone Number [facility] [address] [phone] documented in this encounter Visit Diagnoses Diagnosis Enlarged lymph nodes Enlargement of lymph nodes documented in this encounter Care Teams Relief Operator Relationship Specialty Start Date End Date Scooter White DO PCP - General 03/16/22 documented as of this encounter
--- OUTSIDE RECORDS SUMMARY | 2024-06-19 15:54 | XMS_ITS | Data Portability ---
Author Organization [facility] Cathy GLASS Address [address] [facility] [place] [address] Care Team Providers Care Child Care Teacher Name Role Phone ZO MORA OTHER Assessment Encounter Date Assessment Date Assessment LastModified by Organization Details LastModified Time 11/13/2018 11/13/2018 RTC 3mo - ferritin, Tdap Conductive hearing loss? ENT Not available 11/27/2018 00:23:38 02/13/2019 02/13/2019 Declined Flu RTC 1mo Not available 02/13/2019 11:28:51 Plan of Treatment Reminders Order Date Submit Date Provider Last Modified By Organization Details Last Modified Time Details Appointments None recorded. Lab HIV 1+2 AB + HIV 1 p24 Ag, qualitative immunoassay , serum 2018 019 [facility], [address] [facility], [facility] [address], [address], 9 07:12:01 HBsAg (hepatitis B surface Ag), EIA, serum 2018 019 [facility], [address] [facility], [facility] [address], [place], [address], 9 07:12:02 hepatitis C Ab, signal-to-c utoff, serum or plasma 2018 019 [facility], [address] [facility], [facility] [address], [place], [address], 9 07:12:01 RPR (rapid plasma reagin), serum 2018 019 [facility], [address], [address], [place], [address], 9 07:12:00 hsv (1+2) igg Ab, serum 2018 019 [facility], [address], [place], [address], 9 07:12:00 CBC w/ auto diff 2018 019 [facility], [address], [place], [address], 9 07:11:59 CBC w/ auto diff 2018 019 [facility], [address], [place], [address], 9 06:40:13 ferritin, serum or plasma 2018 019 [facility], [address] [facility], [address], [place], [address], 9 06:40:14 iron + total iron-bindin g capacity (TIBC), serum 2018 019 [facility], [address], [place], [address], 9 06:40:14 Referral ENT referral - Saw Dr. Mora --- need a second opinion. 2018 019 [facility], [address] [facility] [address], [address], [place], [address], 9 17:55:21 general surgeon referral 2018 019 [facility] Moralez MD, [address] [facility] , [address], [place], [address], 9 12:38:24 Procedures None recorded. Surgeries None recorded. Imaging None recorded. Medication Orders Tessalon Perles 100 mg capsule [address] [facility] [address] [facility], [address] [place], [address], 9 00:24:06 Mucinex 600 mg tablet, extended release [address] [facility], [address] [place], [address], 9 00:24:12 ferrous sulfate 325 mg (65 mg iron) tablet [address] [facility], [address] [place], [address], 9 12:48:40 ferrous sulfate 325 mg (65 mg iron) tablet [address] [facility], [address] [place], [address], 9 11:26:58 Patient TargetsNo targets recorded. Patient Instructions Encounter Date Encounter Id Patient Instructions Last Modified By Organization Details Last Modified Time 07/27/2018 [id number] upper respirator y infection (cold): care instructions Not available 07/27/2018 13:23:41 08/29/2018 [id number] hemorrhoids: car e instructions Not available 08/29/2018 16:13:52 anemia: care instructions Not available 08/29/2018 18:08:26 09/05/2018 [id number] Acute Sinusitis: Care Instructions Not available 09/05/2018 12:48:40 11/13/2018 [id number] hemorrhoids: car e instructions Not available 11/27/2018 00:17:15 02/13/2019 [id number] dizziness: care instructions Not available 02/13/2019 11:26:58 electrocardiogra m interpretation* ATHENAFAX Not available 03/13/2019 15:05:29 Reason for Referral ENT Referral for Cervical ly mphadenopathy Saw Dr. Mora --- need a second opinion. Referring Physician: Lucero Sandoval, Family Medicine, Encounter Date: 07/27/2018 General Surgeon Referral for Hemorrhoids Referring Physician: Ricardo Ramirez, [employer], Encounter Date: 08/29/2018 Results Created Date Observation Date Name Description Value Unit Range Abnormal Flag Note LastModifiedBy Organization Detail LastModifiedTime 07/04/19 19 07/05/2018 TSH + free T4, serum TSH 3.080 uIU/m L 0.450- 4.500 Not Available [facility] ([facility]) [address] [place], [address], 07/05/2018 09:23:03 07/04/19 19 07/05/2018 TSH + free T4, serum T4,free(dire ct) 1.06 NG/dL 0.82-1 .77 Not Available [facility] ([facility]) [address] [place], [address], 07/05/2018 09:23:03 07/04/19 19 07/04/2018 CBC w/ auto diff WBC 7.2 x10e3 /uL 3.4-10 .8 Not Available [facility] ([facility]) [address] [place], [address], 07/05/2018 09:23:03 07/04/19 19 07/04/2018 CBC w/ auto diff RBC 4.87 x10e6 /uL 3.77-5 .28 Not Available [facility] ([facility]) [address] [place], [address], 07/05/2018 09:23:03 07/04/19 19 07/04/2018 CBC w/ auto diff hemoglobin 11.5 g/dL 11.1-1 5.9 Not Available [facility] ([facility]) [address] [place], [address], 07/05/2018 09:23:03 07/04/19 19 07/04/2018 CBC w/ auto diff hematocrit 36.2 % 34.0-4 6.6 Not Available [facility] ([facility]) [address], [place], [address], 07/05/2018 09:23:03 07/04/19 19 07/04/2018 CBC w/ auto diff MCV 74 fL 79-97 below low normal Not Available [facility] ([facility]) [address], [place], [address], 07/05/2018 09:23:03 07/04/19 19 07/04/2018 CBC w/ auto diff MCH 23.6 pg 26.6-3 3.0 below low normal Not Available [facility] ([facility]) [address], [place], [address], 07/05/2018 09:23:03 07/04/19 19 07/04/2018 CBC w/ auto diff MCHC 31.8 g/dL 31.5-3 5.7 Not Available [facility] ([facility]) [address], [place], [address], 07/05/2018 09:23:03 07/04/19 19 07/04/2018 CBC w/ auto diff RDW 16.0 % 12.3-1 5.4 above high normal Not Available [facility] ([facility]) [address], [place], [address], 07/05/2018 09:23:03 07/04/19 19 07/04/2018 CBC w/ auto diff platelets 480 x10e3 /uL 150-37 9 above high normal Not Available [facility] ([facility]) [address], [place], [address], 07/05/2018 09:23:03 07/04/19 19 07/04/2018 CBC w/ auto diff neutrophils 64 % not estab. Not Available [facility] ([facility]) [address], [place], [address], 07/05/2018 09:23:03 07/04/19 19 07/04/2018 CBC w/ auto diff lymphs 28 % not estab. Not Available [facility] ([facility]) [address] [place], [address], 07/05/2018 09:23:03 07/04/19 19 07/04/2018 CBC w/ auto diff monocytes 6 % not estab. Not Available [facility] ([facility]) [address] [place], [address], 07/05/2018 09:23:03 07/04/19 19 07/04/2018 CBC w/ auto diff eos 1 % not estab. Not Available [facility] ([facility]) [address] [place], [address], 07/05/2018 09:23:03 07/04/19 19 07/04/2018 CBC w/ auto diff basos 1 % not estab. Not Available [facility] ([facility]) [address], [place], [address], 07/05/2018 09:23:03 07/04/1907/04/2018 CBC w/ auto diff immature cells [employer] Not Available [facility] ([facility]) [address] [place], [address], 07/05/2018 09:23:03 07/04/19 19 07/04/2018 CBC w/ auto diff neutrophils (absolute) 4.6 x10e3 /uL 1.4-7. 0 Not Available [facility] ([facility]) [address] [place], [address], 07/05/2018 09:23:03 07/04/19 19 07/04/2018 CBC w/ auto diff lymphs (absolute) 2.0 x10e3 /uL 0.7-3. 1 Not Available [facility] ([facility]) [address] [place], [address], 07/05/2018 09:23:03 07/04/19 19 07/04/2018 CBC w/ auto diff monocytes(ab solute) 0.5 x10e3 /uL 0.1-0. 9 Not Available [facility] ([facility]) [address] [place], [address], 07/05/2018 09:23:03 07/04/19 19 07/04/2018 CBC w/ auto diff eos (absolute) 0.1 x10e3 /uL 0.0-0. 4 Not Available [facility] ([facility]) [address], [place], [address], 07/05/2018 09:23:03 07/04/19 19 07/04/2018 CBC w/ auto diff baso (absolute) 0.1 x10e3 /uL 0.0-0. 2 Not Available [facility] ([facility]) [address], [place], [address], 07/05/2018 09:23:03 07/04/19 19 07/04/2018 CBC w/ auto diff immature granulocytes 0 % not estab. Not Available [facility] ([facility]) [address] [place], [address], 07/05/2018 09:23:03 07/04/19 19 07/04/2018 CBC w/ auto diff immature grans (abs) 0.0 x10e3 /uL 0.0-0. 1 Not Available [facility] ([facility]) [address] [place], [address], 07/05/2018 09:23:03 07/04/19 19 07/04/2018 CBC w/ auto diff NRBC [employer] Not Available [facility] ([facility]) [address] [place], [address], 07/05/2018 09:23:03 07/04/19 19 07/04/2018 CBC w/ auto diff hematology comments: [employer] Not Available [facility] ([facility]) [address], [place], [address], 07/05/2018 09:23:03 07/04/19 19 07/05/2018 CMP, serum or plasm a glucose 90 mg/dL 65-99 Not Available [facility] ([facility]) [address] [place], [address], 07/05/2018 09:23:04 07/04/19 19 07/05/2018 CMP, serum or plasm a BUN 9 mg/dL 6-20 Not Available [facility] ([facility]) [address] [place], [address], 07/05/2018 09:23:04 07/04/19 19 07/05/2018 CMP, serum or plasm a creatinine 0.66 mg/dL 0.57-1 .00 Not Available [facility] ([facility]) [address] [place], [address], 07/05/2018 09:23:04 07/04/19 19 07/05/2018 CMP, serum or plasm a eGFR if nonafricn AM 123 mL/mi n/1.7 3 >59 Not Available [facility] ([facility]) [address] [place], [address], 07/05/2018 09:23:04 07/04/19 19 07/05/2018 CMP, serum or plasm a eGFR if africn AM 142 mL/mi n/1.7 3 >59 Not Available [facility] ([facility]) [address] [place], [address], 07/05/2018 09:23:04 07/04/19 19 07/05/2018 CMP, serum or plasm a BUN/creatini ne ratio 14 9-23 Not Available [facility] ([facility]) [address] [place], [address], 07/05/2018 09:23:04 07/04/19 19 07/05/2018 CMP, serum or plasm a sodium 139 mmol/ L 134-14 4 Not Available [facility] ([facility]) [address] [place], [address], 07/05/2018 09:23:04 07/04/19 19 07/05/2018 CMP, serum or plasm a potassium 4.4 mmol/ L 3.5-5. 2 Not Available [facility] ([facility]) [address] [place], [address], 07/05/2018 09:23:04 07/04/19 19 07/05/2018 CMP, serum or plasm a chloride 102 mmol/ L 96-106 Not Available [facility] ([facility]) [address] [place], [address], 07/05/2018 09:23:04 07/04/19 19 07/05/2018 CMP, serum or plasm a carbon dioxide, total 23 mmol/ L 20-29 Not Available [facility] ([facility]) [address] [place], [address], 07/05/2018 09:23:04 07/04/1907/05/2018 CMP, serum or plasm a calcium 9.7 mg/dL 8.7-10 .2 Not Available [facility] ([facility]) [address] [place], [address], 07/05/2018 09:23:04 07/04/19 19 07/05/2018 CMP, serum or plasm a protein, total 8.1 g/dL 6.0-8. 5 Not Available [facility] ([facility]) [address] [place], [address], 07/05/2018 09:23:04 07/04/1907/05/2018 CMP, serum or plasm a albumin 4.6 g/dL 3.5-5. 5 Not Available [facility] ([facility]) [address] [place], [address], 07/05/2018 09:23:04 07/04/19 19 07/05/2018 CMP, serum or plasm a globulin, total 3.5 g/dL 1.5-4. 5 Not Available [facility] ([facility]) [address] [place], [address], 07/05/2018 09:23:04 07/04/1907/05/2018 CMP, serum or plasm a A/G ratio 1.3 1.2-2. 2 Not Available [facility] ([facility]) [address] [place], [address], 07/05/2018 09:23:04 07/04/1907/05/2018 CMP, serum or plasm a bilirubin, total 0.3 mg/dL 0.0-1. 2 Not Available [facility] ([facility]) [address] [place], [address], 07/05/2018 09:23:04 07/04/1907/05/2018 CMP, serum or plasm a alkaline phosphatase 68 IU/L 39-117 Not Available [facility]) [address] [place], [address], 07/05/2018 09:23:04 07/04/1907/05/2018 CMP, serum or plasm a AST (SGOT) 20 IU/L 0-40 Not Available [facility] ([facility]) [address] [place], [address], 07/05/2018 09:23:04 07/04/1907/05/2018 CMP, serum or plasm a ALT (SGPT) 15 IU/L 0-32 Not Available [facility] ([facility]) [address] [place], [address], 07/05/2018 09:23:04 07/04/1907/05/2018 cytom egalo virus (cmv) igg+i gm Ab, serum cytomegalovi yung (CMV) Ab, IgG <0.60 U/mL 0.00-0 .59 Negat hayde <0.60 Equiv ocal 0.60 - 0.69 Posit hayde >0.69 Not Available [facility] ([facility]) [address], [place], [address], 07/05/2018 09:23:04 07/04/1907/05/2018 cytom egalo virus (cmv) igg+i gm Ab, serum cytomegalovi yung (CMV) Ab, IgM <30.0 AU/mL 0.0-29 .9 Negat hayde <30.0 Equiv ocal 30.0 - 34.9 Posit hayde >34.9 A posit hayde resul t is gener ally indic ative of acute infec tion, react ivati on or persi stent IgM produ ction . Not Available [facility] ([facility]) [address], [place], [address], 07/05/2018 09:23:04 07/04/1907/05/2018 RPR (rapi d plasm a reagi n), serum RPR Non Reacti ve non reacti ve Not Available [facility] ([facility]) [address], [place], [address], 07/05/2018 09:23:05 07/04/1907/05/2018 heter ophil e Ab, quali tativ e latex agglu tinat ion, serum mono qual w/rflx qn Negati ve negati ve The sensi tivit y of Heter ophil e antib srinivasan testi ng is 80-90 %. Epste in [place] IgM testi ng offer s highe r sensi tivit y. Not Available [facility] ([facility]) [address], [place], [address], 07/05/2018 09:23:06 08/30/1908/30/2018 CBC w/ auto diff WBC 7.4 x10e3 /uL 3.4-10 .8 Not Available [facility] ([facility]) [address], [place], [address], 08/30/2018 07:11:59 08/30/19 19 08/30/2018 CBC w/ auto diff RBC 4.51 x10e6 /uL 3.77-5 .28 Not Available [facility] ([facility]) [address] [place], [address], 08/30/2018 07:11:59 08/30/19 19 08/30/2018 CBC w/ auto diff hemoglobin 11.0 g/dL 11.1-1 5.9 below low normal Not Available [facility] ([facility]) [address] [place], [address], 08/30/2018 07:11:59 08/30/1908/30/2018 CBC w/ auto diff hematocrit 34.2 % 34.0-4 6.6 Not Available [facility] ([facility]) [address] [place], [address], 08/30/2018 07:11:59 08/30/1908/30/2018 CBC w/ auto diff MCV 76 fL 79-97 below low normal Not Available [facility] ([facility]) [address] [place], [address], 08/30/2018 07:11:59 08/30/1908/30/2018 CBC w/ auto diff MCH 24.4 pg 26.6-3 3.0 below low normal Not Available [facility] ([facility]) [address] [place], [address], 08/30/2018 07:11:59 08/30/1908/30/2018 CBC w/ auto diff MCHC 32.2 g/dL 31.5-3 5.7 Not Available [facility] ([facility]) [address] [place], [address], 08/30/2018 07:11:59 08/30/1908/30/2018 CBC w/ auto diff RDW 15.6 % 12.3-1 5.4 above high normal Not Available [facility] ([facility]) [address] [place], [address], 08/30/2018 07:11:59 08/30/19 19 08/30/2018 CBC w/ auto diff platelets 389 x10e3 /uL 150-37 9 above high normal Not Available [facility] ([facility]) [address], [place], [address], 08/30/2018 07:11:59 08/30/19 19 08/30/2018 CBC w/ auto diff neutrophils 59 % not estab. Not Available [facility] ([facility]) [address], [place], [address], 08/30/2018 07:11:59 08/30/19 19 08/30/2018 CBC w/ auto diff lymphs 31 % not estab. Not Available [facility] ([facility]) [address], [place], [address], 08/30/2018 07:11:59 08/30/1908/30/2018 CBC w/ auto diff monocytes 8 % not estab. Not Available [facility] ([facility]) [address], [place], [address], 08/30/2018 07:11:59 08/30/1908/30/2018 CBC w/ auto diff eos 1 % not estab. Not Available [facility] ([facility]) [address], [place], [address], 08/30/2018 07:11:59 08/30/1908/30/2018 CBC w/ auto diff basos 1 % not estab. Not Available [facility] ([facility]) [address], [place], [address], 08/30/2018 07:11:59 08/30/1908/30/2018 CBC w/ auto diff immature cells [employer] Not Available [facility] ([facility]) [address], [place], [address], 08/30/2018 07:11:59 08/30/19 19 08/30/2018 CBC w/ auto diff neutrophils (absolute) 4.4 x10e3 /uL 1.4-7. 0 Not Available [facility] ([facility]) [address] [place], [address], 08/30/2018 07:11:59 08/30/1908/30/2018 CBC w/ auto diff lymphs (absolute) 2.3 x10e3 /uL 0.7-3. 1 Not Available [facility] ([facility]) [address] [place], [address], 08/30/2018 07:11:59 08/30/1908/30/2018 CBC w/ auto diff monocytes(ab solute) 0.6 x10e3 /uL 0.1-0. 9 Not Available [facility] ([facility]) [address] [place], [address], 08/30/2018 07:11:59 08/30/1908/30/2018 CBC w/ auto diff eos (absolute) 0.1 x10e3 /uL 0.0-0. 4 Not Available [facility] ([facility]) [address] [place], [address], 08/30/2018 07:11:59 08/30/1908/30/2018 CBC w/ auto diff baso (absolute) 0.0 x10e3 /uL 0.0-0. 2 Not Available [facility] ([facility]) [address] [place], [address], 08/30/2018 07:11:59 08/30/1908/30/2018 CBC w/ auto diff immature granulocytes 0 % not estab. Not Available [facility] ([facility]) [address] [place], [address], 08/30/2018 07:11:59 08/30/1908/30/2018 CBC w/ auto diff immature grans (abs) 0.0 x10e3 /uL 0.0-0. 1 Not Available [facility] ([facility]) [address], [place], [address], 08/30/2018 07:11:59 08/30/1908/30/2018 CBC w/ auto diff NRBC [employer] Not Available [facility] ([facility]) [address], [place], [address], 08/30/2018 07:11:59 08/30/1908/30/2018 CBC w/ auto diff hematology comments: [employer] Not Available [facility] ([facility]) [address], [place], [address], 08/30/2018 07:11:59 08/30/1908/30/2018 hsv (1+2) igg Ab, serum hsv 1 IgG, type spec 22.20 index 0.00-0 .90 above high normal Negat hayde <0.91 Equiv ocal 0.91 - 1.09 Posit hayde >1.09 Note: Negat hayde indic ates no antib odies detec willy to HSV-1 . Equiv ocal may sugge st early infec tion. If clini dl appro priat e, retes t at later date. Posit hayde indic ates antib odies detec willy to HSV-1 . Not Available [facility] ([facility]) [address], [place], [address], 08/30/2018 07:12:00 08/30/1908/30/2018 hsv (1+2) igg Ab, serum hsv 2 IgG, type spec <0.91 index 0.00-0 .90 Negat hayde <0.91 Equiv ocal 0.91 - 1.09 Posit hayde >1.09 Note: Negat hayde indic ates no antib odies detec willy to HSV-2 . Equiv ocal may sugge st early infec tion. If clini dl appro priat e, retes t at later date. Posit hayde indic ates antib odies detec willy to HSV-2 . Not Available [facility] ([facility]) [address], [place], [address], 08/30/2018 07:12:00 08/30/19 19 08/30/2018 RPR (rapi d plasm a reagi n), serum RPR Non Reacti ve non reacti ve Not Available [facility] ([facility]) [address] [place], [address], 08/30/2018 07:12:00 08/30/1908/30/2018 HIV 1+2 AB + HIV 1 p24 Ag, quali tativ e immun oassa y, serum HIV screen 4TH generation wrfx Non Reacti ve non reacti ve Not Available [facility] ([facility]) [address] [place], [address], 08/30/2018 07:12:01 08/30/19 19 08/30/2018 hepat itis C Ab, signa l-to- cutof f, serum or plasm a HCV Ab <0.1 s/co_ ratio 0.0-0. 9 Not Available [facility] ([facility]) [address] [place], [address], 08/30/2018 07:12:01 08/30/19 19 08/30/2018 hepat itis C Ab, signa l-to- cutof f, serum or plasm a comment: Commen t Non react hayde HCV antib srinivasan scree n is consi stent with no HCV infec tion, unles s recen t infec tion is suspe cted or other evide nce exist s to indic ate HCV infec tion. Not Available [facility] ([facility]) [address] [place], [address], 08/30/2018 07:12:01 08/30/19 19 08/30/2018 HBsAg (hepa titis B surfa ce Ag), EIA, serum HBsAg screen Negati ve negati ve Not Available [facility] ([facility]) [address] [place], [address], 08/30/2018 07:12:02 02/14/2002/14/2019 CBC w/ auto diff WBC 7.5 x10e3 /uL 3.4-10 .8 Not Available [facility] ([facility]) [address], [place], [address], 02/14/2019 06:40:13 02/14/2002/14/2019 CBC w/ auto diff RBC 4.34 x10e6 /uL 3.77-5 .28 Not Available [facility] ([facility]) [address], [place], [address], 02/14/2019 06:40:13 02/14/2002/14/2019 CBC w/ auto diff hemoglobin 11.1 g/dL 11.1-1 5.9 Not Available [facility] ([facility]) [address], [place], [address], 02/14/2019 06:40:13 02/14/2002/14/2019 CBC w/ auto diff hematocrit 34.2 % 34.0-4 6.6 Not Available [facility] ([facility]) [address], [place], [address], 02/14/2019 06:40:13 02/14/2002/14/2019 CBC w/ auto diff MCV 79 fL 79-97 Not Available [facility] ([facility]) [address], [place], [address], 02/14/2019 06:40:13 02/14/2002/14/2019 CBC w/ auto diff MCH 25.6 pg 26.6-3 3.0 below low normal Not Available [facility] ([facility]) [address] [place], [address], 02/14/2019 06:40:13 02/14/2002/14/2019 CBC w/ auto diff MCHC 32.5 g/dL 31.5-3 5.7 Not Available [facility] ([facility]) [address], [place], [address], 02/14/2019 06:40:13 02/14/2002/14/2019 CBC w/ auto diff RDW 15.0 % 12.3-1 5.4 Not Available [facility] ([facility]) [address], [place], [address], 02/14/2019 06:40:13 02/14/2002/14/2019 CBC w/ auto diff platelets 372 x10e3 /uL 150-45 0 Not Available [facility] ([facility]) [address], [place], [address], 02/14/2019 06:40:13 02/14/2002/14/2019 CBC w/ auto diff neutrophils 61 % not estab. Not Available [facility] ([facility]) [address], [place], [address], 02/14/2019 06:40:13 02/14/2002/14/2019 CBC w/ auto diff lymphs 28 % not estab. Not Available [facility] ([facility]) [address], [place], [address], 02/14/2019 06:40:13 02/14/2002/14/2019 CBC w/ auto diff monocytes 8 % not estab. Not Available [facility] ([facility]) [address], [place], [address], 02/14/2019 06:40:13 02/14/2002/14/2019 CBC w/ auto diff eos 2 % not estab. Not Available [facility] ([facility]) [address], [place], [address], 02/14/2019 06:40:13 02/14/2002/14/2019 CBC w/ auto diff basos 1 % not estab. 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 0 Not Available [facility] ([facility]) [address], [place], [address], 02/14/2019 06:40:13 02/14/2002/14/2019 CBC w/ auto diff lymphs (absolute) 2.1 x10e3 /uL 0.7-3. 1 Not Available [facility] ([facility]) [address], [place], [address], 02/14/2019 06:40:13 02/14/2002/14/2019 CBC w/ auto diff monocytes(ab solute) 0.6 x10e3 /uL 0.1-0. 9 Not Available [facility] ([facility]) [address], [place], [address], 02/14/2019 06:40:13 02/14/2002/14/2019 CBC w/ auto diff eos (absolute) 0.1 x10e3 /uL 0.0-0. 4 Not Available [facility] ([facility]) [address] [place], [address], 02/14/2019 06:40:13 02/14/2002/14/2019 CBC w/ auto diff baso (absolute) 0.0 x10e3 /uL 0.0-0. 2 Not Available [facility] ([facility]) [address], [place], [address], 02/14/2019 06:40:13 02/14/2002/14/2019 CBC w/ auto diff immature granulocytes 0 % not estab. Not Available [facility] ([facility]) [address], [place], [address], 02/14/2019 06:40:13 02/14/2002/14/2019 CBC w/ auto diff immature grans (abs) 0.0 x10e3 /uL 0.0-0. 1 Not Available [facility] ([facility]) [address] [place] [address], [place], [address], 02/14/2019 06:40:13 02/14/2002/14/2019 CBC w/ auto diff NRBC CLOTHING PATTERNMAKER Not Available [facility] ([facility]) [address] [place] [address], [place], [address], 02/14/2019 06:40:13 02/14/2002/14/2019 CBC w/ auto diff hematology comments: CLOTHING PATTERNMAKER Not Available [facility] ([facility]) [address] [place] [address], [place], [address], 02/14/2019 06:40:13 02/14/2002/14/2019 iron + total iron- leta ng capac ity (TIBC ), serum iron bind.cap.(TI BC) 353 ug/dL 250-45 0 Not Available [facility] ([facility]) [address], [place], [address], 02/14/2019 06:40:14 02/14/2002/14/2019 iron + total iron- leta ng capac ity (TIBC ), serum UIBC 336 ug/dL 131-42 5 Not Available [facility] ([facility]) [address] [place] [address], [address], 02/14/2019 06:40:14 02/14/2002/14/2019 iron + total iron- leta ng capac ity (TIBC ), serum iron 17 ug/dL 27-159 below low normal Not Available [facility] ([facility]) [address], [place], [address], 02/14/2019 06:40:14 02/14/2002/14/2019 iron + total iron- leta ng capac ity (TIBC ), serum iron saturation 5 % 15-55 alert low Not Available [facility] ([facility]) [address], [place], [address], 02/14/2019 06:40:14 02/14/2002/14/2019 cristina tin, serum or plasm a ferritin, serum 7 NG/mL 15-150 below low normal Not Available [facility] ([facility]) [address], [place], [address], 02/14/2019 06:40:14 07/04/19 19 07/04/2018 XR, chest No observ ation record ed. [email or web address] [address] [place], [address], 07/06/2018 16:35:07 08/16/19 19 08/09/2018 CT, neck, soft tissu e, w/ contr ast No observ ation record ed. [address] [place], [address], 11/27/2018 00:09:00 08/17/19 19 08/16/2018 CT, sinus es, w/o contr ast No observ ation record ed. [address] [place], [address], 08/16/2018 13:21:28 Result Notes None recorded. Problems Name Problem SNOMED Code Status Onset Date Resolution Date Notes Provider Name and Address Organization Details Recorded Time Disorder of thyroid gland 12598688 Completed 201811/26/2018 DIONNE New [facility] 9 00:12:22 Cervical lymphade nopathy 577240707 Active 2018 DIONNE New [facility] 9 11:15:19 Upper respirat ory infectio n 78141525 Completed 201811/13/2018 Luc[place], [place] - [facility] 9 11:05:53 Mean corpuscu lar volume below referenc e range 057112063 Active 2018 [place] [facility] 9 12:49:50 Acute sinusiti s 07802619 Completed 201811/13/2018 [place] [facility] 9 11:05:49 History of Helicoba cter pylori infectio n 20406378071 996944 Active 2018 GI [place] [facility] 9 00:05:39 Chronic gastriti s 5821046 Active 2018 EGD - H pylori, GI [place] [facility] 9 00:06:03 Hemorrho ids 86439655 Active 2018 Gen sx planning for hemorrho idectomy [place] [facility] 9 00:06:27 Dizzines s 820670054 Active 2018 [place] [facility] 9 11:29:10 Infectiv e vaginiti s 099393255 Active Radha [place] [facility] 6 11:25:47 Infectiv e vaginiti s 720167298 Completed Shahrzad Barrera [place] [facility] 5 09:18:25 Maternal care for diminish ed movement s Active Radha [place] [facility] 6 11:25:47 Maternal care for diminish ed movement s Completed Shahrzad Barrera [place] [facility] 5 09:18:25 Breastfe eding painful 621752082 Active Radha Quicks [place] [facility] 6 11:25:47 Pain in pelvis 22118520 Active Radha Laymons [place] [facility] 6 11:25:47 Vaginal discharg e 350239607 Active white Radha morneo, [facility] 6 11:25:47 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 Procedures Surgical History Date Name Laterality Status Provider Name and Address Organization Details Recorded Time 05/08/19 16 Cholecystectomy completed Radha Garcia [facility] 11/03/2015 11:25:48 01/15/20 15 IUD Insertion completed Ricardo Isauro [facility] 01/14/2015 12:23:57 04/18/20 12 Date of Last Pap Smear completed Mily Parsons [place] - [facility] 05/06/2014 16:14:24 05/08/19 10 Appendectomy completed Maida Do [place] - [facility] 06/17/2014 11:12:04 Imaging Results Imaging Date Name Status LastModified by Organiz ation Details LastModified Time 07/04/2018 XR, chest completed [email or web address] [address] [place], [address], 07/06/2018 16:35:07 08/09/2018 CT, neck, soft tissue, w/ contrast completed [address] [place], [address], 11/27/2018 00:09:00 08/16/2018 CT, sinuses, w/o contrast completed [address] [place], [address], 08/16/2018 13:21:28 Procedure Notes None recorded. Medical Equipment None Reported. Allergies No known drug allergies Medications Name Sig Start Date Stop Date Status Note LastModified by Organization Details LastModified Time amoxicillin 500 mg capsule Take 1 capsule every 12 hours by oral route for 10 days. 11/26 completed Not Available Not Available Not Available Prenatabs Rx 29 mg iron-1 mg tablet 07/04 completed Not Available Not Available Not Available azithromyci n 250 mg tablet 02/13 completed Not Available Not Available Not Available ibuprofen 800 mg tablet active Not Available Not Available Not Available ofloxacin 0.3 % eye drops 11/26 completed Not Available Not Available Not Available fluconazole 150 mg tablet 02/13 completed Not Available Not Available Not Available benzonatate 200 mg capsule 11/26 completed Not Available Not Available Not Available hydrocodone 5 mg-acetamin ophen 325 mg tablet 02/13 completed Not Available Not Available Not Available Doc-Q-Lace 100 mg capsule active Not Available Not Available Not Available terconazole 0.8 % vaginal cream Insert 1 applicato r(s)ful EVERY NIGHT by vaginal route for three nights active Not Available Not Available No t Available metronidazo le 250 mg tablet 11/26 completed Not Available Not Available Not Available Anucort-HC 25 mg suppository active Not Available Not Available Not Available lidocaine HCl 2 % mucosal jelly 02/13 completed Not Available Not Available Not Available acetaminoph en 300 mg-codeine 30 mg tablet 11/26 completed Not Available Not Available Not Available omeprazole 40 mg capsule,del ayed release 11/26 completed Not Available Not Available Not Available doxycycline monohydrate 100 mg tablet 11/26 completed Not Available Not Available Not Available oxycodone-a cetaminophe n 5 mg-325 mg tablet 02/13 completed Not Available Not Available Not Available Tessalon Perles 100 mg capsule Take 1 capsule 3 times a day by oral route as needed. 11/26 completed Not Available Not Available Not Available cephalexin 500 mg capsule 11/26 completed Not Available Not Available Not Available ferrous sulfate 325 mg (65 mg iron) tablet Take 1 tablet 3 times a day by oral route. 2018 active Not Available Not Available Not Avai lable ParaGard T 380A 380 square mm intrauterin e device Take 1 device by intrauter ine route as directed. 07/04 completed Not Available Not Available Not Available amoxicillin 875 mg-potassiu m clavulanate 125 mg tablet 11/26 completed Not Available Not Available Not Available Mucinex 600 mg tablet, extended release Take 1 tablet every 12 hours by oral route as needed. 11/26 completed Not Available Not Available Not Available Minerva Allergy active OTC Not Available Not Available Not Available vits 96-ferrous fumarate 27 mg iron-folic acid 800 mcg tablet 07/04 completed Not Available Not Available Not Available Rectiv 0.4 % (w/w) ointment 02/13 completed Not Available Not Available Not Available Vitals Date Recorded Body height Body mass index (BMI) Body weight Body temperature Respiratory rate Heart rate Systolic blood pressure Diastolic blood pressure Provider Name and Address Organization Details Last Updated DateTime 9 162.56 cm 36.7 kg/m2 90115.0 4 g 97.9 [degF] 16 /min 76 /min 124 mm[Hg] 86 mm[Hg] Jenelle Groves MA [facility] 9 12:24:37 Date Recorded Body height Body mass index (BMI) Body weight Systolic blood pressure Diastolic blood pressure Provider Name and Address Organization Details Last Updated DateTime 08/29/2018 162.56 cm 36.2 kg/m2 39171.99 g 130 mm[Hg] 94 mm[Hg] Shahrzad Barrera MA [facility] 9 11:38:34 Date Recorded Body height Body mass index (BMI) Body weight Body temperature Heart rate Respiratory rate Systolic blood pressure Diastolic blood pressure Provider Name and Address Organization Details Last Updated DateTime 9 162.56 cm 36 kg/m2 08336.6 1 g 98.3 [degF] 84 /min 20 /min 132 mm[Hg] 84 mm[Hg] Jenelle Groves MA [facility] 9 12:15:41 Date Recorded Body height Body mass index (BMI) Body weight Body temperature Heart rate Respiratory rate Systolic blood pressure Diastolic blood pressure Provider Name and Address Organization Details Last Updated DateTime 9 162.56 cm 35.5 kg/m2 14538.9 7 g 98.3 [degF] 70 /min 18 /min 130 mm[Hg] 80 mm[Hg] Jenelle Groves MA [facility] 9 10:43:45 Date Recorded Body height Body mass index (BMI) Body weight Heart rate Respiratory rate Body temperature Systolic blood pressure Diastolic blood pressure Provider Name and Address Organization Details Last Updated DateTime 9 162.56 cm 36.3 kg/m2 46679.7 9 g 86 /min 20 /min 98.3 [degF] 130 mm[Hg] 82 mm[Hg] Jenelel Groves [place] - [facility] 9 11:02:19 Social History Question Answer Notes LastModified by Organizat ion Details LastModified Time Tobacco Smoking Status Never Smoker Maida DoBRENDEN [place] [facility] 06/17/2014 11:12:04 Do You Have An Advance Directive? No Information not available 06/17/2014 What Is Your Level Of Alcohol Consumption? None Information not available 06/17/2014 If You Are , What Was Your Level Of Alcohol Consumption Prior To ? Occasional Information not available 06/17/2014 Is Blood Transfusion Acceptable In An Emergency? Yes Information not available 06/17/2014 What Is Your Level Of Caffeine Consumption? Moderate Information not available 06/17/2014 Live With Cats/exposure To Cat Litter Yes Pt Educated To Have Someone Else Handle Liter Box While Information not available 06/17/2014 What Type Of Diet Are You Following? REGULAR Information not available 06/17/2014 Which Illicit Or Recreational Drugs Have You Used? None Information not available 06/17/2014 Frequent Air Travel No Information not available 06/17/2014 Illicit Drugs Pre- None Information not available 06/17/2014 Live Alone Or With Others? With Others Information not available 06/17/2014 Marital Status Single Informatio n not available 06/17/2014 What Was The Date Of Your Most Recent Tobacco Screening? 11/13/2018 Information not available 11/29/2018 How Many Children Do You Have? 1 Information not available 06/17/2014 Seat Belts Used Routinely Yes Information not available 06/17/2014 Are You Sexually Active? Yes Information not available 06/17/2014 Do You Have Smoke And Carbon Monoxide Detectors In Your Home? Yes Information not available 06/17/2014 Are You Passively Exposed To Smoke? No Information not available 06/17/2014 Smoking Pre- No Information not available 06/17/2014 Sex: Unknown Functional Status Question Answer Note LastModified by Organization D etails LastModified Time What is your exercise level? None Information not available 06/17/2014 Mental Status None recorded. Family History Relationship Description Onset Age of this Age Resolved Age Notes LastModified by Organization Details LastModified Time Mother Disorder of thyroid gland and mother 's side Not available 07/04/2018 10:23:59 Medical History Condition Response Heart Problems N Other N Breast Cancer N Thyroid Problems N Kidney or Bladder Problems N GI Problems N Lung Disease N Depression N Acne N Breast Problem N Eating Disorder N Anemia N Anesthesia Complications N Headaches/Migraines N Anxiety Disorder N Diabetes N Ovarian Cancer N Blood Transfusions N Arthritis N Polyps N Infertility N Acid Reflux (GERD) N Cancer N Stroke N Abuse/Domestic Violence N Asthma N Endometriosis N High Cholesterol N Hepatitis N Heart Disease N Fibromyalgia N Pre-Eclampsia N Hypertension N Osteoporosis N Kidney Disease N Gynecological History Statement/Question Response Abnormal Pap N Flow Light On BCP's at Conception? Y STIs/STDs N HPV Vaccine Y Age at Menarche 11 Current Control Method IUD Age at First Child 16 Sexually Active? Y Menses Monthly N Date of Last Pap Smear 04/18/2012 Sexual Problems? N LMP Approximate Obstetrics History GPAL:G 2 P 2 0 0 2 Type Value Full Term 2 Living 2 Total 2 Past Encounters Encounter ID Performer Location Encounter Start Date Encounter Closed Date Diagnosis/Indication Diagnosis SNOMED-CT Code Diagnosis ICD10 Code Diagnosis Note [id number] BRENDEN Keene ([facility]) [address] [place] [address] 05/06/2014 15:15:04 05/07/2014 13:43:54 [id number] test positive [id number] Alia Husain ([facility]) [address] [place] [address] 05/22/2014 14:23:39 05/22/2014 15:25:47 [id number] BRENDEN Hameed ([facility]) [address] [place] [address] 06/17/2014 10:44:30 06/17/2014 15:08:09 [id number] Alia Husain ([facility]) [address] [place] [address] 07/15/2014 10:26:03 07/16/2014 09:23:26 Normal [id number] [facility] ([facility]) [address] [facility] [address] 08/12/2014 09:35:12 08/12/2014 12:42:08 Normal [id number] [place] [facility] ([facility]) [address] [facility] [address] 08/26/2014 11:56:11 08/27/2014 16:10:13 [id number] Alia Vanegas [facility] ([facility]) [address] [facility] [address] 09/09/2014 14:42:01 09/09/2014 15:30:17 [id number] [facility] [facility] ([facility]) [address] [facility] [address] 09/23/2014 09:49:09 09/23/2014 15:23:49 [id number] BRENDEN [facility] ([facility]) [address] [facility] [address] 10/07/2014 10:59:01 10/07/2014 11:38:07 [id number] Ricardo Box [place] [facility] ([facility]) [address] [facility] [address] 10/21/2014 09:36:51 10/23/2014 12:51:20 [id number] [facility]ia [facility] ([facility]) [address] [facility] [address] 11/04/2014 09:43:59 11/04/2014 14:45:01 [id number] Normal [id number] BRENDEN [facility] ([facility]) [address] [facility] [address] 11/11/2014 11:18:25 11/11/2014 14:54:02 [id number] Maternal c are for diminished movements [id number] Alia [facility] ([facility]) [address] [place] [address] 11/18/2014 10:46:59 11/18/2014 11:58:55 [id number] Bianka Fletcher [place] [facility] ([facility]) [address] [place] [address] 11/24/2014 08:49:50 11/24/2014 10:29:51 [id number] Ricardo Box [place] [facility] ([facility]) [address] [place] [address] 12/24/2014 09:05:47 12/24/2014 12:04:57 care [id number] BRENDEN Chan [facility] ([facility]) [address] [place] [address] 01/14/2015 11:47:27 01/14/2015 12:33:02 care [id number] Uses contraception [id number] Alia [facility] ([facility]) [address] [place] [address] 01/19/2015 15:46:51 01/20/2015 09:49:17 IUD check 271295891 [id number] Madyson Obdulio [facility] ([facility]) [address] [place] [address] 02/11/2015 10:38:39 02/18/2015 18:08:10 IUD check 273814355 Z30.431 [id number] Joan Blas [facility] [place] [facility] ([facility]) [address] [place] [address] 11/03/2015 11:00:12 11/03/2015 14:33:42 detection examination 90838435 Z32.00 IUD check 931350900 Z30. 580 [id number] Lucero Vanegas 14 IM [address] [place] [address] 07/04/2018 09:50:09 07/04/2018 16:26:43 Cervical lymphadenopathy 756012869 R59.0 Had a cough since 02/2018, on and off No traveling. No cat. Weight stable overall. Fatigue - despite sleeping. No dental issues. No focal weakness. Sweaty at times. Irregular periods. Neuro intact. ENT will do US +/- biopsy soon. Labs. Check for mono, syphilis, CMV, CXR. RTC 3mo Disorder o f thyroid gland 30754593 E07.9 Had a cough since 02/2018, on and off. Check TSH [id number] Lucero Vanegas 14 IM [address] [facility] [place] [address] 07/27/2018 12:09:33 07/31/2018 15:49:44 Cervical lymphadenopathy 508026654 R59.0 Had a cough since 02/2018, on and off No traveling. No cat. Weight stable overall. Fatigue - despite sleeping. No dental issues. No focal weakness. Sweaty at times. Irregular periods. Neuro intact. ENT will do US +/- biopsy soon. Labs. Check for mono, syphilis, CMV, CXR. RTC 3mo Addendum: Affecting ADL's, talking to kids, read a book. US showed reactive LN with enlarge thyroid per pt. Pt would like a second ENT opinion. Upper resp iratory infection 04005051 J06.9 Strept and Flu negative. Exam unremarkab le. Conservati ve management . [id number] MD Justin Chambersn 14 OB [address] [facility] [place] [address] 08/29/2018 11:23:12 08/30/2018 09:21:21 Gynecologic examination 72490326 Z01.419 CBE and pelvic exam performedP t is on her menstrual cycle, will RTC for pap smear Venereal d isease screening 365836994 Z11.3 Anemia 460271653 D64.9 Hemorrhoids 69170393 K64 .9 [id number] Lucero Vanegas 14 IM [address] [facility] [place] [address] 09/05/2018 12:08:49 09/06/2018 10:44:23 Acute sinusitis 34464963 J01.90 4 days, worsening coughs, chest congestion . Exam sinusitis. Already on antihistam althea, PPI, Augmentin with ENT. Try home Flonase, add mucinex. Mean corpu scular volume below reference range 118920376 R71.8 MCV still low with Steno Pool Supervisor. Heavy periods on paraguard with loading checker , still heavy. FeS - taking two tab now. Inc to three - RTC 2mo for ferritin check. [id number] Lucero Lori Vanegas 14 IM [address] [facility] [place] [address] 11/13/2018 10:37:12 11/27/2018 11:36:00 Cervical lymphadenopathy 748551763 R59.0 06/2018: Had a cough since 02/2018, on and off No traveling. No cat. Weight stable overall. Fatigue - despite sleeping. No dental issues. No focal weakness. Sweaty at times. Irregular periods. Neuro intact. ENT will do US +/- biopsy soon. Labs. Check for mono, syphilis, CMV, CXR. RTC 3mo Addendum: Affecting ADL's, talking to kids, read a book. US showed reactive LN with enlarge thyroid per pt. Pt would like a second ENT opinion. 08/2018: Can't get into ENT until SEPTEMBER. Pt states she can not hear out of her left ear [side confirmed, error above] - started losing hearing on & completely gone on Monday - no ear pain, just behind earlobe. Neck mass is on left side. Suggested patient go to ER for evaluation of hearing loss. Pt states she will go to [facility]. ER: viral and eustachian tube dysfunctio n. Starts imaging, pt getting worse. 11/2018: ENT removed LN and done biopsy - result benign. Chronic gastritis 217284 9 K29.50 Followed by GI.Chronic gastritic, H pylori infection - pt was treated. Per pt, her esophagus was also dilated. Hemorrhoids 64403387 K64 .9 Followed by Gen sx - candidate for hemorrhoid ectomy. History of Helicobacter pylori infection 7090397355 [id number] Z86.19 Followed by GI - treated [id number] Lucero Vanegas 14 IM [address] [facility] [place] [address] 02/13/2019 10:52:03 02/14/2019 08:35:16 Dizziness 259835218 R42 Thyroid was low with Steno Pool Supervisor recently - pt will be rechecked by them. Heavy periods not responding to IUD. Cerebellum - ok. Ears are ok. Taking OTC fe TID. Orthostati c 114/74 - borderline . EKG. Labs for Fe def. Health Concerns Section Related Observation LastModified by Organization Detai ls LastModified Time None Recorded Concern Status LastModified by Organization Details LastModified Time None Recorded Advance Directives Directive N: Payers Encounter Date Sequence Insurance Name Policy Number Policy Steele Covered Member ID Steele Member ID Guarantor Name 07/27/2018 1 [place] [employer] [facility] [employer] Yessica Ray [id number] Yessica Corzine 08/29/2018 1 [place] [employer] Yessica Ray [id number] Yessica Corzine 09/05/2018 1 [facility]MEDICAID HMO) [place] Yessica Ray [id number] Yessica Corzine 11/13/2018 1 [facility]ICAID [facility] [place] Yessica Ray [id number] Yessica Corzine 02/13/2019 2 [place] [employer] Yessica Ray [id number] Yessica Corzine 02/13/2019 1 [facility] [id number] Luis Antonio Rowe Corzine [id number] Yessica Corzine Notes Date Note Type Note Provider Name and Address Organization Details Recorded Time 07/27/2018 text/html 23yo female is h ere for cold like symptoms, neck mass. 1) Neck mass 07/04/2018: Difficulty swallowing solids, went to ER 02/2018: CT neck showed goiter and one lump in the neck. Got two rounds of Abx and the lump still hasn't gone down. ENT plan for US neck / thyroid tomorrow. Dec appetite Weight is fluctuating about 3 pounds. Night sweats. Irregular periods. Sweaty. FHx: unknown father's side. Mother's side has thyroid issues. 07/2018: coughs Sore throat today Subjective Fever Chest congestion No Nasal congestion / earache No Muscle ache Monday was rough - muscle ache No GI symptoms ENT did US thyroid was enlarged, reactive LN. Painful LN - pt wants a second opinion DIONNE New - [facility] 07/31/2018 15:32:25 08/29/2018 text/html Annual GYNReport ed bypatient.History:no gynecologic complaints Menstrual cycle:Normal menses Urinary symptoms:No hematuria; No incontinence Vulva:No genital lesion Vagina:Normal vaginal discharge Breast:No breast pain; No breast lump; No nipple discharge Current Contraception:Intraute rine device (iud) Sexual complaints:No sexual complaints; No pain during intercourse; Normal libido Menopausal Symptoms:No menopausal symptoms; Normal vaginal lubrication Psychological symptoms:No depression; No anxiety; No PMDD Ricardo Ramirez MD Attn: Accounting,[address] [facility], [place], [address], [place] [facility] 08/29/2018 16:15:04 09/05/2018 text/html 23yo female is h ere for coughs. Coughs Congested chest 4 days of increase Wheeze Sore throat No fever, chills, muscle ache Saw ENT - on Tessalon perles, Augmentin for 1mo, Probiotic, Omeprazole She is on Minerva and Benadryl Lucero moreno [facility] 09/05/2018 12:50:10 11/13/2018 text/html 23yo female is h ere for neck mass f/u. 1) Neck mass 07/04/2018: Difficulty swallowing solids, went to ER 02/2018: CT neck showed goiter and one lump in the neck. Got two rounds of Abx and the lump still hasn't gone down. ENT plan for US neck / thyroid tomorrow. Dec appetite Weight is fluctuating about 3 pounds. Night sweats. Irregular periods. Sweaty. FHx: unknown father's side. Mother's side has thyroid issues. 07/2018: coughs Sore throat today Subjective Fever Chest congestion No Nasal congestion / earache No Muscle ache Monday was rough - muscle ache No GI symptoms ENT did US thyroid was enlarged, reactive LN. Painful LN - pt wants a second opinion 11/2018: Pathology from ENT - florid lymphoid hyperplasia, follicular and paracortical patterns, neg for malignancy GERD Followed by GI EGD showed Chronic active gastritis, compatible with H pylori. Esophagus ok Hemorrhoid Followed by Gen sx Was planning for hemorrhoidectomy Lucero Vacamary moreno [facility] 11/27/2018 00:24:29 02/13/2019 text/html 24yo female is h ere for dizziness. 1.5moIUD removed 01/2019. Not helpful with heavy period and pt planning for . 7 days - heavy first 2-3 days, 1 pad per hour. Taking FeS 325mg TID at least since 09/2018 was with positional change, now even with standing / at rest Not a/w with meals Denies room spinning. Lucero Sandoval [facility], [place] - PENDING SALE TO [facility] 02/13/2019 11:29:52 OBGyn Episode Ob Episode Information Episode Created Date Number of Fetuses Patient Bloodtype Patient rh Status Prepregnancy Weight lbs Domestic Partner Domestic Partner Phone Father Name Open [employer] Supervisor Status 05/06/20 14 1 A Positive Luis Antonio Mo CLOSED Fetus Data First Name Last Name Admitted to NICU Weight (g) Sex Living Outcome Pediatric Complications Fetus ID Race Codes Race Delivery Type CHASITY LILLY NE false [phone] F Full Term [id number] White Vaginal Problems Problem Notes Problem Name Start Date End Date Resolution Snomed Code Not e Infective vaginitis [id number] Maternal care for diminished movements [id number] Darren Calculation Initial Darren Date Initial Exam Date Initial Exam Provider Initial Ultrasound Date Last Menstrual Period Date Ultra Sound Weeks Gestation 11/28/2014 05/06/2014 05/16/2014 02/21/2014 12 Eighteen To Twenty Week Darren Update Ultra Sound Date Fundal Height At Umbil Quickening Date Ultra Sound Latest Weeks Gestation Final Darren Confirmed By Final Darren Confirmed Date Final Darren Date Ultra Sound Latest Days Gestation 0 [email or web address] 06/17/2014 11/28/19 15 0 Pre- Flowsheet Flowsheet Date 05/06/2014 Mckinney Score Blood Edema Fundus Height Fundus Units Glucose Ketones Leukocytes Nitrite Labor Signs Protein Cervic Dilation Cervic Effacement Cervic Station Type Weight in lbs Pre/Post Dialysis Refused 203.927329203508 BP Diastolic BP Location Tested BP Systolic BP Type 64 L arm 118 sitting Fetus Heart Rate Present Fetus Movement Comments Flowsheet Date 05/22/2014 Mckinney Score Blood Edema Fundus Height Fundus Units Glucose Ketones Leukocytes Nitrite Labor Signs Protein Cervic Dilation Cervic Effacement Cervic Station neg none none negative neg Type Weight in lbs Pre/Post Dialysis Refused 198.428208922939 BP Diastolic BP Location Tested BP Systolic BP Type 72 L arm 122 sitting Fetus Heart Rate Present A 158 Present Fetus Movement A No Comments Round ligament pain. Try Tyl enol. support belt eventually. Flowsheet Date 06/17/2014 Mckinney Score Blood Edema Fundus Height Fundus Units Glucose Ketones Leukocytes Nitrite Labor Signs Protein Cervic Dilation Cervic Effacement Cervic Station Type Weight in lbs Pre/Post Dialysis Refused 164.40330245422 BP Diastolic BP Location Tested BP Systolic BP Type 76 116 Fetus Heart Rate Present A 154 Present Fetus Movement Comments complains of nausea, no vomi ting, nursing counseling done today Flowsheet Date 07/15/2014 Mckinney Score Blood Edema Fundus Height Fundus Units Glucose Ketones Leukocytes Nitrite Labor Signs Protein Cervic Dilation Cervic Effacement Cervic Station 20 cm none Type Weight in lbs Pre/Post Dialysis Refused 201.065976437357 BP Diastolic BP Location Tested BP Systolic BP Type 72 120 Fetus Heart Rate Present A 140 Present Fetus Movement A Yes Comments no major complaints, round l igament pain. Flowsheet Date 08/12/2014 Mckinney Score Blood Edema Fundus Height Fundus Units Glucose Ketones Leukocytes Nitrite Labor Signs Protein Cervic Dilation Cervic Effacement Cervic Station 27 cm none Type Weight in lbs Pre/Post Dialysis Refused 203.44188867506 BP Diastolic BP Location Tested BP Systolic BP Type 68 128 Fetus Heart Rate Present A 142 Present Fetus Movement A Yes Comments 28 weeks today Flowsheet Date 08/26/2014 Mckinney Score Blood Edema Fundus Height Fundus Units Glucose Ketones Leukocytes Nitrite Labor Signs Protein Cervic Dilation Cervic Effacement Cervic Station 26 cm none Type Weight in lbs Pre/Post Dialysis Refused 203.20209166962 BP Diastolic BP Location Tested BP Systolic BP Type 74 L arm 122 sitting Fetus Heart Rate Present A 146 Present Fetus Movement A Yes Comments Flowsheet Date 09/09/2014 Mckinney Score Blood Edema Fundus Height Fundus Units Glucose Ketones Leukocytes Nitrite Labor Signs Protein Cervic Dilation Cervic Effacement Cervic Station 30 cm none Type Weight in lbs Pre/Post Dialysis Refused 206.630081007282 BP Diastolic BP Location Tested BP Systolic BP Type 60 L arm 120 sitting Fetus Heart Rate Present A 154 Present Fetus Movement A Yes Comments Flowsheet Date 09/23/2014 Mckinney Score Blood Edema Fundus Height Fundus Units Glucose Ketones Leukocytes Nitrite Labor Signs Protein Cervic Dilation Cervic Effacement Cervic Station 32 cm none Type Weight in lbs Pre/Post Dialysis Refused 205.627987405012 BP Diastolic BP Location Tested BP Systolic BP Type 68 110 Fetus Heart Rate Present A 155 Fetus Movement A Yes Comments Flowsheet Date 10/07/2014 Mckinney Score Blood Edema Fundus Height Fundus Units Glucose Ketones Leukocytes Nitrite Labor Signs Protein Cervic Dilation Cervic Effacement Cervic Station none Type Weight in lbs Pre/Post Dialysis Refused 208.630090465450 BP Diastolic BP Location Tested BP Systolic BP Type 78 110 sitting Fetus Heart Rate Present A 154 Fetus Movement A Yes Comments growth scan ordered Flowsheet Date 10/21/2014 Mckinney Score Blood Edema Fundus Height Fundus Units Glucose Ketones Leukocytes Nitrite Labor Signs Protein Cervic Dilation Cervic Effacement Cervic Station 37 cm none Type Weight in lbs Pre/Post Dialysis Refused 213.125049697605 BP Diastolic BP Location Tested BP Systolic BP Type 72 118 sitting Fetus Heart Rate Present A 140 Present Fetus Movement A Yes Comments gbs today. Flowsheet Date 11/04/2014 Mckinney Score Blood Edema Fundus Height Fundus Units Glucose Ketones Leukocytes Nitrite Labor Signs Protein Cervic Dilation Cervic Effacement Cervic Station 37 cm none Type Weight in lbs Pre/Post Dialysis Refused 216.701287383313 BP Diastolic BP Location Tested BP Systolic BP Type 76 L arm 118 sitting Fetus Heart Rate Present A 136 Present Fetus Movement A Decreased Comments Will send to L&D for BPP and NST for decreased movement. Also discussed kick counts. Flowsheet Date 11/11/2014 Mckinney Score Blood Edema Fundus Height Fundus Units Glucose Ketones Leukocytes Nitrite Labor Signs Protein Cervic Dilation Cervic Effacement Cervic Station 39 cm Uterine Contract ions 0cm 40% -4 Type Weight in lbs Pre/Post Dialysis Refused 217.359970540698 BP Diastolic BP Location Tested BP Systolic BP Type 64 122 sitting Fetus Heart Rate Present A 145 Present Fetus Movement A Yes Comments will send for bpp and contin ue weekly. pt states that the baby is moving but not as active. Flowsheet Date 11/18/2014 Mckinney Score Blood Edema Fundus Height Fundus Units Glucose Ketones Leukocytes Nitrite Labor Signs Protein Cervic Dilation Cervic Effacement Cervic Station 40 none Type Weight in lbs Pre/Post Dialysis Refused 221.300001615460 BP Diastolic BP Location Tested BP Systolic BP Type 74 128 sitting Fetus Heart Rate Present A 135 Fetus Movement A Yes Comments has been getting weekly NST for decreased movement. BPP has been fine but NST takes a while to become active. Flowsheet Date 11/24/2014 Mckinney Score Blood Edema Fundus Height Fundus Units Glucose Ketones Leukocytes Nitrite Labor Signs Protein Cervic Dilation Cervic Effacement Cervic Station none 2cm 0% -4 Type Weight in lbs Pre/Post Dialysis Refused 223.666917195623 BP Diastolic BP Location Tested BP Systolic BP Type 72 128 sitting Fetus Heart Rate Present A 126 Present Fetus Movement A Yes Comments will schedule pt for inducti on. Cervidil at noon. EFW 8- 8.5 lbs. pT counseled on risks of induction however with continued decreased movement; the benefits outweigh the risks Flowsheet Date 12/24/2014 Mckinney Score Blood Edema Fundus Height Fundus Units Glucose Ketones Leukocytes Nitrite Labor Signs Protein Cervic Dilation Cervic Effacement Cervic Station Type Weight in lbs Pre/Post Dialysis Refused BP Diastolic BP Location Tested BP Systolic BP Type Fetus Heart Rate Present Fetus Movement Comments Menstrual History Last Menstrual Date Menses Monthly On Bcp Conception Prior Menses Frequency Hcg Plus Date Menarche Onset Age 1002/21/2014 Genetic Screening And Infection History Question Response Note Patient's Age Will Be 35 Yea rs Or Older At Estimated Date of Delivery false Thalassemia (Somali, Albanian, Mediterranean, Or Background): MCV < 80 false Neural Tube Defect (Meningom yelocele, Spina Bifida, Or Anencephaly) false Congenital Heart Defect false Down Syndrome false Curt-Sachs (eg, Adventist, Cajun , Uzbek-Barbadian) false Yung Disease false Sickle Cell Disease Or Trait () false Hemophilia Or Other Blood Disorders false Muscular Dystrophy false Cystic Fibrosis false Alejandrina's Chorea false Mental Retardation/Autism false Other Inherited Genetic Or C hromosomal Disorder false Maternal Metabolic Disorder (eg, Type 1 Diabetes, PKU) false Patient Or Baby's Father Had A Child With Defects Not Listed Above true septum palucidum disord er Recurrent Loss, Or A Stillbirth true pts mother has had 5 miscarriages Medications (including Suppl ements, Vitamins, Herbs, OTC Drugs), Illicit/Recreational Drugs, Alcohol true pnv's Any Other Genetic History false Live With Someone With TB Or Exposed To TB false Patient Or Partner Has Histo ry Of Genital Herpes false Rash Or Viral Illness Since Last Menstrual Period false History Of STD, Gonorrhea, C hlamydia, HPV, Syphilis false Other Infection History false Delivery Information Delivery Date Delivery Type Labor Anesthesia Weeks Gestation Incision Type Labor Labor Length Hrs Delivered By Post Complications Tubal Sterilization Discharge Date Comments 5 Induce d [facility]Ep [facility] BAR[place] Other false 11/27/2014 SHA RP PAINS IN THE BREAST AREA Discharge Information Feeding Method Contraceptive Method Maternal HG B and HCT Levels Breast MIRENA Ob Episode Information Episode Created Date Number of Fetuses Patient Bloodtype Patient rh Status Prepregnancy Weight lbs Domestic Partner Domestic Partner Phone Father Name Open [employer] Supervisor Status 06/17/19 15 1 CLOSED Fetus Data First Name Last Name Admitted to NICU Weight (g) Sex Living Outcome Pediatric Complications Fetus ID Race Codes Race Delivery Type [phone] F Full Term [id number] Vaginal Darren Calculation Initial Darren Date Initial Exam Date Initial Exam Provider Initial Ultrasound Date Last Menstrual Period Date Ultra Sound Weeks Gestation 0 Eighteen To Twenty Week Darren Update Ultra Sound Date Fundal Height At Umbil Quickening Date Ultra Sound Latest Weeks Gestation Final Darren Confirmed By Final Darren Confirmed Date Final Darren Date Ultra Sound Latest Days Gestation 0 0 Menstrual History Last Menstrual Date Menses Monthly On Bcp Conception Prior Menses Frequency Hcg Plus Date Menarche Onset Age Delivery Information Delivery Date Delivery Type Labor Anesthesia Weeks Gestation Incision Type Labor Labor Length Hrs Delivered By Post Complications Tubal Sterilization Discharge Date Comments 2 Regional-Ep idural 41 false 29 low amnioic fluid did weekly US for 3 months Discharge Information Feeding Method Contraceptive Method Maternal HG B and HCT Levels
--- OUTSIDE RECORDS SUMMARY | 2024-06-19 15:54 | XMS_ITS | Patient Health Summary ---
Author Organization [facility] Address [address] [place] [address] Care Team Providers Care Spray Gun Striper Name Role Phone Alis White DO Primary Care Provider Note from [facility],non-owned Affiliates and Associated Physician Practices is amultiple site organization consisting of ambulatory clinics and hospital sitesin [place], [place] and [place]. This disclosure is being madepursuant to the Care Everywhere program and may not contain all information available regarding this patient. Last updated 18.[facility] Allergies No known active allergies Medications * Be aware that medications may not be up to date on this document. Alwaysverify current medications with the patient. * Vit-Fe Fumarate-FA ( VITAMIN) 28-0.8 MG tablet Take 1 Tab by mouth once daily. * NIFEdipine (PROCARDIA) 10 MG capsule(Started 08/29/2011) Take 1 Cap by mouth every 4 hours as needed. 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 Supervision of high-risk 08/29/2011 ADHD (attention deficit hyperactivity disorder) 01/23/2008 Social History Tobacco Use Types Packs/Day Years Used Date Smoking Tobacco: Never Smokeless Tobacco: Never Alcohol Use Standard Drinks/Week Comments No 0 (1 standard drink = 0.6 oz pur e alcohol) Sex and Gender Information Value Date Recorded Sex Assigned at Not on file Gender Identity Not on file Sexual Orientation Not on file Last Filed Vital Signs Vital Sign Reading Time Taken Comments Blood Pressure 118/64 08/29/2011 6:38 AM CDT Pulse 100 08/29/2011 6:38 AM CDT Temperature 36.6 C (97.8 F) 08/29/2011 6:38 AM CDT Respiratory Rate 18 08/29/2011 6:38 AM CDT Oxygen Saturation 97% 12/14/2009 12:05 PM CDT Inhaled Oxygen Concentration 100% 12/14/2009 8 :35 AM CDT Weight 75.8 kg (167 lb 3.2 oz) 08/29/2011 6:38 A M CDT Height 162.6 cm (5' 4 ) 08/29/2011 6:38 AM CDT Body Mass Index 28.7 08/29/2011 6:38 AM CDT Procedures * FLOW CYTOMETRY TISSUE PANEL(Performed 11/05/2018) Performed for Enlarged lymph nodes * IMAGING/RADIOLOGY/XRAY RESULTS ORDER(Performed 01/25/2012) * IMAGING/RADIOLOGY/XRAY RESULTS ORDER(Performed 01/25/2012) * IMAGING/RADIOLOGY/XRAY RESULTS ORDER(Performed 01/25/2012) * IMAGING/RADIOLOGY/XRAY RESULTS ORDER(Performed 09/08/2011) * URINALYSIS REFLEX MICROSCOPIC REFLEX CULTURE(Performed 08/29/2011) * GLUCOSE PROTEIN KETONE URINE - POINT OF CAR(Performed 08/29/2011) * SONOGRAM - COMPLETE(Performed 08/24/2011) * SONOGRAM - COMPLETE(Performed 08/03/2011) * SONOGRAM - COMPLETE(Performed 06/24/2011) * LAB RESULTS ORDER(Performed 12/17/2009) * IMAGING/RADIOLOGY/XRAY RESULTS ORDER(Performed 12/17/2009) * US OUTSIDE CONSULTATION(Performed 12/14/2009) Performed for Appendicitis * CT OUTSIDE CONSULTATION(Performed 12/14/2009) Performed for Appendicitis * DIFFERENTIAL MANUAL(Performed 12/14/2009) * CBC W AUTO DIFFERENTIAL(Performed 12/14/2009) * GROSS + MICRO EXAM(Performed 12/13/2009) * URINALYSIS REFLEX TO MICROSCOPIC NO CULTURE(Performed 12/13/2009) * CULTURE URINE(Performed 12/13/2009) * URINALYSIS REFLEX TO MICROSCOPIC NO CULTURE(Performed 12/13/2009) * DIFFERENTIAL MANUAL(Performed 12/13/2009) * CBC W AUTO DIFFERENTIAL(Performed 12/13/2009) * CULTURE URINE(Performed 02/15/2007) Results * FLOW CYTOMETRY TISSUE PANEL (11/05/2018 11:02 AM CDT) Case Report Flow Cytometry Case: [id number] Authorizing Provider: Cindi Herrera MD Collected: 11/05/2018 11:02 AM Pathologist: Alexa Weinberg MD Received: 11/06/2018 02:01 PM Specimen: Cervical Lymph Node , Left 5:33 PM CDT [facility] Final Diagnosis Lymph node, left cervical, flow cytometric immunophenotypic analysis: - No evidence of non-Hodgkin lymphoma. - See interpretation. 5:33 PM CDT [facility] Flow Cytometry Interpretation The left [...] the flow cytometry specimen is reviewed for quality assurance monitor chassis purposes. In summary, the left cervical lymph node specimen shows no evidence of a non-Hodgkin lymphoma. Correlation with additional clinical information and the concurrent biopsy specimen is required. KR 9 5:33 PM T [facility] Flow Cytometry Results Differential Result Comment Flow Cell Count /uL [id number] Total Viability % 86.0 Lymphocytes % 97 Dim CD45 Region % 0 Monocytes % 1 Granulocytes % 1 9 5:33 PM CDT [facility] Reason for test Enlarged lymph nodes 785.6 9 5:33 PM CDT [facility] Client Specimen ID # [id number] 9 5:33 PM [facility] Number of markers 16 were performed. A Flow CD3 A Flow CD10 A Flow CD20 A Flow CD23 A Flow CD2 A Flow CD4 A Flow CD1a A Flow CD5 A Flow CD19 A Flow CD34 A Flow CD45 A Flow CD7 A Flow CD8 A Flow CD30 A [place]+CD19+ A Lambda+CD19+ 9 5:33 PM CDT [facility] Disclaimer Test performed at [facility], [address], [place], [address]. *The established laboratory minimum viability is 70%. [...] complexity clinical testing. 9 5:33 PM CDT [facility] Embedded Images 9 5:33 PM CDT [facility] Pathology/Cytolo gy ENTIRE CERVICAL LYMPH NODE / Unknown 11/05/2018 11:02 AM CDT 11/06/2018 2:01 PM CDT Cindi Herrera MD LAB - PATHOLOGY/CYTO LOGY ORDERABLES [facility] [address] [place] [address]. [address] [phone] * IMAGING/RADIOLOGY/XRAY RESULTS ORDER (01/25/2012 6:57 AM CDT) Only the most recent of5 resultswithin the time period is included. Anatomical Region Laterality Modality Other Narrative Transcriptions Document, Scanned - 01/25/2012 6:57 AM CDT Scanned Document IMAGING * URINALYSIS ROUTINE W/REFLEX TO CULTURE (08/29/2011 6:45 AM CDT) Source Clean Catch [facility] Color UA Yellow [facility] Character UA Clear [facility] Glucose UA NEGATIVE NEGATIVE mg/dl [facility] Bilirubin UA NEGATIVE NEGATIVE [facility] Ketone UA NEGATIVE NEGATIVE mg/dl [facility] Specific [place] UA <=1.005 1.003 - 1.030 [facility] Blood UA NEGATIVE NEGATIVE [facility] pH UA 6.5 5.0 - 9.0 [facility] Protein UA NEGATIVE NEGATIVE-TR SELVIN mg/dl [facility] Urobilinogen UA 0.2 0.2 - 1.0 Sherita Units/dl [facility] Nitrite UA NEGATIVE NEGATIVE [facility] Leukocyte UA NEGATIVE NEGATIVE [facility] Urine Culture Culture is not indicated per protocol. [facility] Urine specimen (specimen) URINE SPECIMEN OBTAINED BY CLEAN CATCH PROCEDURE / Unknown 08/29/2011 6:45 AM CDT 08/29/2011 6:55 AM CDT Chante Hung MD LAB - URINALYSIS ORD ERABLES [facility] [address] [place] [address] * GLUCOSE PROTEIN KETONE URINE - POINT OF CAR (08/29/2011 6:15 AM CDT) Glucose UA Negative Negative [facility] Protein UA Negative Negative [facility] Ketone UA Negative Negative [facility] QC Verified yes Yes [facility] P[facility] T TESTING Urine specimen (specimen) URINE / Unknown 08/29/2011 6:15 AM CDT Chante Hung MD LAB - POINT OF CARE ORDERABLES Performing Organization Address City/[facility]/ZIP Co de Phone Number [facility] [place] [address] * SONOGRAM - COMPLETE (08/24/2011 9:18 AM CDT) Only the most recent of3 resultswithin the time period is included. Anatomical Region Laterality Modality Other 08/24/2011 9:18 AM CDT Narrative 08/24/2011 12:[address] [facility] PHONE: FAX: Pat. Name: HAIM YOUNG Pat. No: [id number] Study Date: 08/24/2011 9:18am , Age: 09 1995, 16 Pregnancies: 1 LMP: 02/08/2011 GA by LMP: 28w1d GA by 1st: 28w1d GA by US: 28w3d GA Selected: 28w1d (LMP) BETTY: 11/15/2011 Referring MD: RICARDO BARAHONA MD Furnace Builder: Blanca Cheng RDMS Hist/Ind: Circumvallate Placenta Growth MEASUREMENTS & AGE GROWTH EVALUATION Measurement GA Range Srce %for GA Ratios ----- ---- ------- BPD 7.3 cm 29w1d (98h6o-98f5f) Hadl BPD 71% FL/BPD 0.72 (0.71 - 0.87) HC 26.6 cm 29w0d (54u8v-59s4d) Hadl HC 69% FL/AC 0.22 (0.20 - 0.24) AC 24.2 cm 28w3d (09f0z-83j4l) Hadl AC 57% HC/AC 1.10 (0.99 - 1.18) FL 5.3 cm 28w0d (89c9r-54q7m) Hadl FL 48% CI 0.76 (0.70 - 0.86) HL 4.6 cm 27w2d (94g9v-47d1y) Eder MATA 36% GA for sonogram 28w3d (74d4t-43u7r) Weight Estimate: based on (HL,BPD,HC,AC,FL) Avg Weight: 1220 gm (7514-3737) Hadlo : 2lbs, 11oz Normal: 1166 gm (782-1683) Brenne Wt% 54% for 28.1 wks Heart Rate: 157 bpm Amniotic Fluid Index: 11.0cm (09.4-22.8) CLINICAL SUMMARY Study Number: 3 A bentley fetus is identified in cephalic presentation. The measurements today are consistent with appropriate growth compared to previous examination. The BETTY selected is based on her LMP and a prior ultrasound examination. The amniotic fluid volume is within normal limits. The placenta is posterior, Grade 2. The circumvallate placenta was noted noted with today's ultrasound. The patient was advised that ultrasound does not allow detection of all structural or chromosomal abnormalities. gender is female. IMPRESSION: Single, live, IUP 28w1d RECOMMEND: Follow up ultrasound as clinically indicated. Thank you for allowing us the opportunity to care for your patient. Sahil Castillo MD <Electronic Signature> 08/24/2011 12:38pm Ricardo Barahona MD [facility] ORDERABLES * LAB RESULTS ORDER (12/17/2009 10:16 AM CDT) Narrative Procedure Note Document, Scanned - 12/16/2009 6:32 PM CDT Scanned Document LAB - THERAPEUTIC DR SANCHEZ MONITORING ORDERABLES * US OUTSIDE CONSULTATION (12/14/2009 9:47 AM CDT) Anatomical Region Laterality Modality Ultrasound 12/14/2009 11:0 8 AM CDT Impressions 12/14/2009 11:08 AM CDT 1. Agree with outside report. 2. Normal pelvic ultrasound. Narrative 12/14/2009 11:08 AM CDT Outside consultation-ultrasound pelvis Outside consultation date: December 14, 2009 Examination performed on December 13 is submitted for review on December 14. It is from [facility] in [place], [place]. Exam consists of 66 images. I agree with the outside report. Ovaries are normal and there is no torsion. Adnexal structures are within normal limits. Midline adult uterus is unremarkable. Minimal free fluid is within normal limits. Procedure Note Gatito An MD - 12/14/2009 Outside consultation-ultrasound pelvis Outside consultation date: December 14, 2009 Examination performed on December 13 is submitted for review on December 14. It is from [facility] in [place], [place]. Exam consists of 66 images. I agree with the outside report. Ovaries are normal and there is no torsion. Adnexal structures are within normal limits. Midline adult uterus is unremarkable. Minimal free fluid is within normal limits. IMPRESSION 1. Agree with outside report. 2. Normal pelvic ultrasound. Yola Wheat MD US ORDERABLES * CT OUTSIDE CONSULTATION (12/14/2009 9:43 AM CDT) Anatomical Region Laterality Modality Computed Tomogra phy 12/14/2009 11:0 2 AM CDT Narrative 12/14/2009 4:[address] outside consultation [address] abdomen pelvis images including precontrast, contrast and delayed phase images obtained on 12/13/2009 at [place], [place] are presented for review. The lung bases are clear. The hepatobiliary system, spleen, pancreas, adrenal glands, kidneys, and retroperitoneal vessels are normal. The intestines are normal caliber. The air-filled right lower quadrant appendix is unremarkable. A small amount of free pelvic fluid is present. The bladder is decompressed by a Petit catheter on the contrast and delayed phase imaging. The uterus is unremarkable. Bilateral adnexal cysts are physiologic. Diagnosis: No CT evidence for appendicitis. Minimal free pelvic fluid. D: Oswaldo Melendrez M.D. Procedure Note Gatito An MD - 12/14/2009 CT outside consultation [address] abdomen pelvis images including precontrast, contrast and delayed phase images obtained on 12/13/2009 at [place], [place] are presented for review. The lung bases are clear. The hepatobiliary system, spleen, pancreas, adrenal glands, kidneys, and retroperitoneal vessels are normal. The intestines are normal caliber. The air-filled right lower quadrant appendix is unremarkable. A small amount of free pelvic fluid is present. The bladder is decompressed by a Petit catheter on the contrast and delayed phase imaging. The uterus is unremarkable. Bilateral adnexal cysts are physiologic. Diagnosis: No CT evidence for appendicitis. Minimal free pelvic fluid. D: Oswaldo Melendrez M.D. Yola Wheat MD CT ORDERABLES * (ABNORMAL) DIFFERENTIAL MANUAL (12/14/2009 4:20 AM CDT) Only the most recent of2 resultswithin the time period is included. Comment Manual Diff Done [facility] Neutrophils % Manual 76(H) 24 - 66 % [facility] Lymphocytes % Manual 20(L) 22 - 61 % [facility] Monocytes % Manual 4 3 - 15 % [facility] RBC Morphology Normal [facility] BLOOD SPECIMEN / Unknown 12/14/2009 4:20 AM CDT 12/14/2009 5:05 AM CDT Roque Marino MD LAB - HEMATOLOGY ORD ERABLES Performing Organization Address City/State/[facility] Co de Phone Number [facility] [address] [place] [address] * (ABNORMAL) CBC W AUTO DIFFERENTIAL (12/14/2009 4:20 AM CDT) Only the most recent of2 resultswithin the time period is included. WBC 9.53 4.5 - 14.5 K/cumm [facility] RBC 3.86(L) 4.10 - 5.10 mill/cumm [facility] Hemoglobin 11.4(L) 12.0 - 16.0 gm/dl [facility] Hematocrit 32.8(L) 36.0 - 47.0 % [facility] MCV 85.0 78.0 - 102.0 cu microns [facility] MCH 29.5 25.0 - 35.0 uug [facility] MCHC 34.8 31.0 - 37.0 % [facility] RDW 11.7 % [facility] MPV 9.7 fl [facility] Platelet Count 182 100 - 400 K/cumm [facility] Comment Manual Diff Done [facility] BLOOD SPECIMEN / Unknown 12/14/2009 4:20 AM CDT 12/14/2009 4:40 AM CDT Michaellerichy Holloway DO LAB - HEMATOLOGY OR DERABLES Performing Organization Address City/State/[facility] Co mt Phone Number [facility] [address] [place] [address] * GROSS + MICRO EXAM (12/13/2009 11:43 PM CDT) [facility] Clinical History [facility] Comment: The patient is a 14-year-old girl with abdominal pain who underwent appendectomy and diagnostic laparotomy. The operative findings were a hemorrhagic ovarian cyst and a normal appendix. Gross Description [facility] Comment: Submitted fixed in formalin in one container for gross and microscopic examination, labeled with the patient's name, Haim Young, and appendix, is a 5.5 x 1.5 x 1 cm vermiform appendix with attached mesoappendix. The external surface is pink-tatum and mildly congested. The proximal appendix is stapled closed. The appendiceal lumen is filled with green-brown fecal material. The appendiceal wall is 3 mm in thickness. The appendiceal lumen is 3 mm in diameter. The specimen is serially sectioned, and arborist representative sections are submitted in cassette A1. (CT/nab) Microscopic Examination [facility] Comment: 1 H+E. Sections of the vermiform appendix show mild expansion of the lamina propria by mixed inflammatory cells, numerous secondary lymphoid follicles, neutrophilic infiltration of a few crypts, and a rare crypt abscess. No granulomata are present. There is no significant architectural distortion. There is no transmural inflammation. Ganglia are present in submucosal and myenteric plexuses. (DSB) Diagnosis [facility] Comment: DIAGNOSIS: VERMIFORM APPENDIX, EXCISION: - ACUTE INFLAMMATION, MILD. - LYMPHOID HYPERPLASIA. This case has been personally reviewed and interpreted by the attending (teaching) pathologist. Tractor Operator Battery ASHWINI AGARWAL, [facility] Resident in Pathology Margarito Helton M.D. [facility] Pathologist Alis Brennan M.D. [facility] Electronically Signed By ALIS BRENNAN M.D. [facility] ENTIRE APPENDIX / Unknown 12/13/2009 11:43 PM CDT 12/14/2009 7:48 AM CDT Roque Marino MD LAB - PATHOLOGY/CYTO LOGY ORDERABLES Performing Organization Address [facility] Co de Phone Number [facility] [address] [place] [address] * (ABNORMAL) URINALYSIS ROUTINE AUTO (12/13/2009 10:45 PM CDT) Only the most recent of2 resultswithin the time period is included. Color UA YELLOW [facility] Character UA CLEAR [facility] Specific [place] UA 1.025 1.003 - 1.030 [facility] pH UA 6.0 5.0 - 8.0 [facility] Protein UA NEGATIVE Negative [facility] Glucose UA NEGATIVE Negative gm/dl [facility] Ketone UA 3+(AA) Negative [facility] Blood UA NEGATIVE Negative [facility] Bilirubin UA NEGATIVE Negative [facility] Reducing Substances UA NEGATIVE Negative % [facility] WBC UA 0-2 /HPF [facility] RBC UA rare /HPF [facility] Epithelial Cell UA rare /HPF [facility] Bacteria UA trace [facility] Leukocyte UA NEGATIVE [facility] Nitrite UA NEGATIVE [facility] Urobilinogen UA 0.2 <=1.0 EU/dl [facility] URINE SPECIMEN COLLECTION, CATHETERIZED / Unknown 12/13/2009 10:45 PM CDT 12/13/2009 11:03 PM CDT Roque Marino MD LAB - URINALYSIS ORD ERABLES Performing Organization Address City/[facility]/ZIP Co de Phone Number [facility] [address] [place] [address] * CULTURE URINE (12/13/2009 10:45 PM CDT) Only the most recent of2 resultswithin the time period is included. Report [facility] Comment: Final - GRAM STAIN No organisms seen CULTURE NO GROWTH (<1000 CFU/ml) URINE SPECIMEN COLLECTION, CATHETERIZED / Unknown 12/13/2009 10:45 PM CDT 12/13/2009 11:03 PM CDT Roque Marino MD LAB - MICROBIOLOGY O RDERABLES [facility] [address] [place] [address] Care Teams Spray Gun Striper Relationship Specialty Start Date End Date Alis White DO PCP - General 03/16/22
--- OUTSIDE RECORDS SUMMARY | 2024-06-19 15:54 | XMS_ITS | Referral Summary ---
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 165.1 cm (5' 5 ) 04/06/2024 10:25 PM RADIOISOTOPE TECHNICIAN Body Mass Index 31.45 04/06/2024 10:25 PM RADIOISOTOPE TECHNICIAN Plan of Treatment Not on file Medical Devices Implanted Type Area Account Manager Device Identifier Shelf Expiration Date Model / Serial / Lot [employer] 1.32mm 4.8mm Modify Ear T Tube Ventilation Ultrasil Sterile Blue [id number] - [id number] Implanted:Qty: 1 on 07/11/2023 by Sakshi Biggs DO at [facility] Left: Ear [employer] 01/03/2033 [id number] / / [id number] [employer] 1.32mm 4.8mm Modify Ear T Tube Ventilation Ultrasil Sterile Blue [id number] - [id number] Implanted:Qty: 1 on 07/11/2023 by Sakshi Biggs DO at [facility] Right: Ear [employer] 01/18/2033 [id number] / / [id number] Procedures Procedure Name Priority Date/Time Associated Diagnosis Comments CT CERVICAL SPINE WO CONTRAST ED 04/06/2024 11:[address] HEAD WO CONTRAST ED 04/06/2024 11:03 PM RADIOISOTOPE TECHNICIAN AUDIOGRAM Routine 04/03/2024 1:00 PM RADIOISOTOPE TECHNICIAN 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 POC INFLUENZA A/B, COVID-19 ANTIGEN Routine 03/29/2024 9:53 AM RADIOISOTOPE TECHNICIAN Viral illness from Last 3 Months Results * CT Cervical Spine WO Contrast (04/06/2024 11:03 PM RADIOISOTOPE TECHNICIAN) Anatomical Region Laterality Modality Spine N/A Computed Tomogra phy 04/06/2024 11:3 2 PM RADIOISOTOPE TECHNICIAN Narrative 04/06/2024 11:45 PM RADIOISOTOPE TECHNICIAN EXAM DESCRIPTION: CT HEAD WO CONTRAST; CT CERVICAL SPINE WO CONTRAST REASON FOR STUDY: Head trauma, moderate-severe, head injury Head trauma, moderate-severe, head injury Neck pain Blacked out x 3 days ago Headaches,dizziness, vision changes ; Neck pain, acute, no red flags Head trauma, moderate-severe, head injury Neck pain Blacked out x 3 days ago Dizziness, vision changes TECHNIQUE: Axial images acquired through the brain without intravenous contrast. Images stored on PACS. Automated exposure control was used as a dose optimization technique for this examination. Axial images acquired through the cervical spine without intravenous contrast. Images stored on PACS. Automated exposure control was used as a dose optimization technique for this examination. COMPARISON: 06/06/2023, 05/13/2023 FINDINGS: Head: BRAIN: No hemorrhage, edema or mass effect. No recent infarct. The howell-white matter differentiation is preserved. No cerebral or cerebellar atrophy. Normal size and morphology of the ventricular system. No acute intraventricular hemorrhage. Basal cisterns are patent. EXTRA-AXIAL SPACES: No fluid collections. No masses. CALVARIUM: No fracture. SINUSES/MASTOIDS: No fluid or mucosal thickening. ORBITS: No significant abnormality. OTHER: No other significant abnormality. Cervical spine: There is mild dextrocurvature of the cervical spine as well as mild cervical kyphosis. The alignment of the cervical spine is otherwise within normal limits. Vertebral body heights are normal. There is no acute fracture. There is mild C6-C7 degenerative disc disease, better evaluated on prior MRI. 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 Mild left C6-C7 osseous neural foraminal stenosis. There is mild osseous central canal stenosis at C6-C7. No acute osseous abnormality in the imaged upper thoracic spine. No aggressive bone lesions. Neck soft tissues demonstrate no acute abnormality. No cervical mass or cervical lymphadenopathy. Lung apices demonstrate mild atelectasis. IMPRESSION: 1. No acute intracranial findings. 2. No CT evidence of acute traumatic injury to cervical spine. THIS IS AN ELECTRONICALLY VERIFIED FINAL REPORT 04/06/2024 11:45 PM - Electronically signed by Makenzie Sams M.D. AT: AT Report ID: [id number] Reading Location: [place] [id number] Procedure Note Makenzie Sams MD - 04/06/2024 EXAM DESCRIPTION: CT HEAD WO CONTRAST; CT CERVICAL SPINE WO CONTRAST REASON FOR STUDY: Head trauma, moderate-severe, head injury Head trauma, moderate-severe, head injury Neck pain Blacked out x 3days ago Headaches,dizziness, vision changes ; Neck pain, acute, no red flags Head trauma, moderate-severe, head injury Neck pain Blacked out x 3days ago Dizziness, vision changes TECHNIQUE: Axial images acquired through the brain without intravenous contrast. Images stored on PACS. Automated exposure control was used asa dose optimization technique for this examination. Axial images acquired through the cervical spine without intravenouscontrast. Images stored on PACS. Automated exposure control was used as a dose optimization technique for this examination. COMPARISON: 06/06/2023, 05/13/2023 FINDINGS: Head: BRAIN: No hemorrhage, edema or mass effect. No recent infarct. The howell-white matter differentiation is preserved. No cerebral or cerebellar atrophy. Normal size and morphology of the ventricular system. No acute intraventricular hemorrhage. Basal cisterns are patent. EXTRA-AXIAL SPACES: No fluid collections. No masses. CALVARIUM: No fracture. SINUSES/MASTOIDS: No fluid or mucosal thickening. ORBITS: No significant abnormality. OTHER: No other significant abnormality. Cervical spine: There is mild dextrocurvature of the cervical spine as well as mildcervical kyphosis. The alignment of the cervical spine is otherwise within normal limits. Vertebral body heights are normal. There is no acute fracture. There is mild C6-C7 degenerative disc disease, better evaluated on priorMRI. 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 Mild leftC6-C7 osseous neural foraminal stenosis. There is mild osseous central canal stenosis at C6-C7. No acute osseous abnormality in the imaged upper thoracic spine. No aggressive bone lesions. Neck soft tissues demonstrate no acute abnormality. No cervical mass or cervical lymphadenopathy. Lung apices demonstrate mild atelectasis. IMPRESSION: 1. No acute intracranial findings. 2. No CT evidence of acute traumatic injury to cervical spine. THIS IS AN ELECTRONICALLY VERIFIED FINAL REPORT 04/06/2024 11:45 PM - Electronically signed by Makenzie Sams M.D. AT: AT Report ID: [id number] Reading Location: [id number] Polo Quezada MD IMG CT PROCEDURES Final Result * CT Head WO Contrast (04/06/2024 11:03 PM RADIOISOTOPE TECHNICIAN) Anatomical Region Laterality Modality Head and Neck N/A Computed Tomogra phy 04/06/2024 11:3 2 PM RADIOISOTOPE TECHNICIAN Narrative 04/06/2024 11:45 PM RADIOISOTOPE TECHNICIAN EXAM DESCRIPTION: CT HEAD WO CONTRAST; CT CERVICAL SPINE WO CONTRAST REASON FOR STUDY: Head trauma, moderate-severe, head injury Head trauma, moderate-severe, head injury Neck pain Blacked out x 3 days ago Headaches,dizziness, vision changes ; Neck pain, acute, no red flags Head trauma, moderate-severe, head injury Neck pain Blacked out x 3 days ago Dizziness, vision changes TECHNIQUE: Axial images acquired through the brain without intravenous contrast. Images stored on PACS. Automated exposure control was used as a dose optimization technique for this examination. Axial images acquired through the cervical spine without intravenous contrast. Images stored on PACS. Automated exposure control was used as a dose optimization technique for this examination. COMPARISON: 06/06/2023, 05/13/2023 FINDINGS: Head: BRAIN: No hemorrhage, edema or mass effect. No recent infarct. The howell-white matter differentiation is preserved. No cerebral or cerebellar atrophy. Normal size and morphology of the ventricular system. No acute intraventricular hemorrhage. Basal cisterns are patent. EXTRA-AXIAL SPACES: No fluid collections. No masses. CALVARIUM: No fracture. SINUSES/MASTOIDS: No fluid or mucosal thickening. ORBITS: No significant abnormality. OTHER: No other significant abnormality. Cervical spine: There is mild dextrocurvature of the cervical spine as well as mild cervical kyphosis. The alignment of the cervical spine is otherwise within normal limits. Vertebral body heights are normal. There is no acute fracture. There is mild C6-C7 degenerative disc disease, better evaluated on prior MRI. 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 Mild left C6-C7 osseous neural foraminal stenosis. There is mild osseous central canal stenosis at C6-C7. No acute osseous abnormality in the imaged upper thoracic spine. No aggressive bone lesions. Neck soft tissues demonstrate no acute abnormality. No cervical mass or cervical lymphadenopathy. Lung apices demonstrate mild atelectasis. IMPRESSION: 1. No acute intracranial findings. 2. No CT evidence of acute traumatic injury to cervical spine. THIS IS AN ELECTRONICALLY VERIFIED FINAL REPORT 04/06/2024 11:45 PM - Electronically signed by Makenzie Sams M.D. AT: AT Report ID: [id number] Reading Location: [place] [address] Procedure Note Makenzie Sams MD - 04/06/2024 EXAM DESCRIPTION: CT HEAD WO CONTRAST; CT CERVICAL SPINE WO CONTRAST REASON FOR STUDY: Head trauma, moderate-severe, head injury Head trauma, moderate-severe, head injury Neck pain Blacked out x 3days ago Headaches,dizziness, vision changes ; Neck pain, acute, no red flags Head trauma, moderate-severe, head injury Neck pain Blacked out x 3days ago Dizziness, vision changes TECHNIQUE: Axial images acquired through the brain without intravenous contrast. Images stored on PACS. Automated exposure control was used asa dose optimization technique for this examination. Axial images acquired through the cervical spine without intravenouscontrast. Images stored on PACS. Automated exposure control was used as a dose optimization technique for this examination. COMPARISON: 06/06/2023, 05/13/2023 FINDINGS: Head: BRAIN: No hemorrhage, edema or mass effect. No recent infarct. The howell-white matter differentiation is preserved. No cerebral or cerebellar atrophy. Normal size and morphology of the ventricular system. No acute intraventricular hemorrhage. Basal cisterns are patent. EXTRA-AXIAL SPACES: No fluid collections. No masses. CALVARIUM: No fracture. SINUSES/MASTOIDS: No fluid or mucosal thickening. ORBITS: No significant abnormality. OTHER: No other significant abnormality. Cervical spine: There is mild dextrocurvature of the cervical spine as well as mildcervical kyphosis. The alignment of the cervical spine is otherwise within normal limits. Vertebral body heights are normal. There is no acute fracture. There is mild C6-C7 degenerative disc disease, better evaluated on priorMRI. 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 Mild leftC6-C7 osseous neural foraminal stenosis. There is mild osseous central canal stenosis at C6-C7. No acute osseous abnormality in the imaged upper thoracic spine. No aggressive bone lesions. Neck soft tissues demonstrate no acute abnormality. No cervical mass or cervical lymphadenopathy. Lung apices demonstrate mild atelectasis. IMPRESSION: 1. No acute intracranial findings. 2. No CT evidence of acute traumatic injury to cervical spine. THIS IS AN ELECTRONICALLY VERIFIED FINAL REPORT 04/06/2024 11:45 PM - Electronically signed by Makenzie Sams M.D. AT: AT Report ID: [id number] Reading Location: [id number] Polo Quezada MD IMG CT PROCEDURES Final Result * AUDIOGRAM (04/03/2024 1:00 PM RADIOISOTOPE TECHNICIAN) Narrative Jami Gauthier Au.D. - 04/03/2024 1:00 PM RADIOISOTOPE TECHNICIAN Jami Gauthier Au.D. 04/03/2024 3:08 PM Audiogram Performed by: Jami Gauthier Au.D. Authorized by: Sakshi Biggs DO Sakshi Biggs DO AUDIOLOGY SERVICES ORDERABLE S Final Result * POC Influenza A/B, COVID-19 antigen (03/29/2024 9:53 AM RADIOISOTOPE TECHNICIAN) Influenza A Ag, POC Negative Negative [facility] Influenza B Ag, POC Negative Negative [facility] COVID-19 Ag POC Presumptive Negative Presumptive Negative, Invalid [facility] Swab 03/29/2024 9:53 AM RADIOISOTOPE TECHNICIAN us Yaneli Pineda NP POINT OF CARE TEST ORDER EUGENIE Final Result [facility] [place] [id number] [address], [facility] from Last 3 Months Insurance [facility]PP[facility] Address: [address] [place], [place] [id number] [facility]PPO Address: [address] [place] [id number] [facility]PPO Address: [facility] [address] [place] [address] Care Teams Sql Report Writer Relationship Specialty Start Date End Date Yon Gutierrez MD [address] [facility] [address] NATALY Rowe [facility] [address] [place] [address] PCP - General Family Medicine 04/04/23 Robby Torres MD Referring Physician Family Medicine 08/22/19 Malik Cates MD [address] [facility] [address] [place] [address] Referring Physician General Surgery 05/26/23 Cindi Bryant NP [address] [place] [address] Nurse Practitioner Obstetrics and Gynecology 05/26/23 Sakshi Biggs DO [address] [facility] [facility] NATALY Hui [facility] [address] [place] [address] Consulting Physician Otolaryngology 05/26/23
--- OUTSIDE RECORDS SUMMARY | 2024-06-19 15:54 | XMS_ITS | Clinical Summary ---
Author Organization [facility] [employer] [address] [place] [address] Care Team Providers Care Scale Expert Name Role Phone Scooter White DO Primary Care Provider [phone] Source Comments [facility],non-owned Affiliates and Associated Physician Practices is amultiple site organization consisting of ambulatory clinics and hospital sitesin [place], [place], [place] and [place]. This disclosure is being madepursuant to the Care Everywhere program and may not contain all information available regarding this patient. Last updated 18.[facility] [employer] [address] Allergies No known active allergies Medications * Be aware that medications may not be up to date on this document. Alwaysverify current medications with the patient. Medication Sig Dispensed Refills Start Date End Date Status Vit-Fe Fumarate-FA ( VITAMIN) 28-0.8 MG tablet Take 1 Tab by mouth once daily. Active NIFEdipine (PROCARDIA) 10 MG capsule Take 1 Cap by mouth every 4 hours as needed. 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 Supervision of high-risk 08/29/2011 ADHD (attention deficit hyperactivity disorder) 01/23/2008 Family History Medical History Relation Name Comments Hypertension Maternal Grandfather Relation Name Status Comments Maternal Grandfather Social History Tobacco Use Types Packs/Day Years [...] Mass Index 28.7 08/29/2011 6:38 AM CDT Plan of Treatment Health Maintenance Due Date Last Done Comments PAP SMEAR 1993 HIV SCREENING 01/07/2008 HEPATITIS C SCREENING 01/02/2011 DTAP/TDAP/TD VACCINES (1 - Tdap) 01/07/2012 HEPATITIS B VACCINE (1 of 3 - 19+ 3-dose series) 01/07/2012 COVID-19 VACCINE ( - 2023-2 5 season) 2024 INFLUENZA VACCINE (#1) 2024 DEPRESSION SCREENING 05/08/2024 ZOSTER VACCINE (1 of 2) 2043 HIB VACCINE Aged Out No longer eligi ble based on patient's age to complete this topic HPV VACCINE Aged Out No longer eligi ble based on patient's age to complete this topic MENINGOCOCCAL (Group B) VACCINE Aged Out No longer eligible based on patient's age to complete this topic MENINGOCOCCAL VACCINE Aged Out No deana bob eligible based on patient's age to complete this topic PNEUMOCOCCAL VACCINE Aged Out No long er eligible based on patient's age to complete this topic Care Teams Scale Expert Relationship Specialty Start Date End Date Scooter White DO PCP - General 03/16/22
--- OUTSIDE RECORDS SUMMARY | 2024-06-19 15:54 | XMS_ITS | Encounter Summary ---
Author Organization [facility] Address [address] [place] [address] Phone Care Team Providers Care Spray Drier Name Role Phone Manda Singh MD Unavailable [phone] Scooter White DO Primary Care Provider Malik Cates MD Unavailable Ulices Marino MD Unavailable Yon Gutierrez MD Primary Care Provider Encounter Details Date Type Department Care Team (Late st Contact Info) Description 07/26/2021 Lab Requisition [facility] [address] [place] [address] Edita Garza, HAMMER SMITH, WATER SANDER [address] [place] [address] Encounter for pre-employment examination Social History Tobacco Use Types Packs/Day Years Used Date Smoking Tobacco: Former Cigarettes 0.3 1 0 10/08/2010 - 10/09/2011 Smokeless Tobacco: Never Alcohol Use Standard Drinks/Week Comments Yes 0 (1 standard drink = 0.6 oz pur e alcohol) 1once a month PHQ-2 Answer Date Recorded Total Score - Questions 1-9 0 10/0 10/2019 Sexually Active Control Partners Comments Not Currently Male Comments No Sex and Gender Information Value Date Recorded Sex Assigned at Not on file Legal Sex Female 9:54 AM CDT Gender Identity Not on file Sexual Orientation Not on file Occupation Industry Job Start Date Job End Date student Not on file Not on file Not on file COVID-19 Exposure Response Date Recorded In the last 10 days, have yo u been in contact with someone who was confirmed or suspected to have Coronavirus/COVID-19? No / Unsure 07/26/2021 8:41 AM CDT documented as of this encounter Plan of Treatment Not on file documented as of this encounter Procedures Procedure Name Priority Date/Time Associated Diagnosis Comments QUANTIFERON-TB GOLD PLUS Routine 07/26/2021 9:00 AM CDT Encounter for pre-employment examination MMRV PANEL Routine 07/26/2021 9:00 AM CDT Encounter for pre-employment examination MUMPS IGG Routine 07/26/2021 9:00 AM CDT Encounter for pre-employment examination HERPES ZOSTER (VARICELLA) IGG Routine 07/26/2021 9:00 AM CDT Encounter for pre-employment examination RUBEOLA (MEASLES) IGG Routine 07/26/2021 9:00 AM CDT Encounter for pre-employment examination RUBELLA IMMUNITY IGG Routine 07/26/2021 9:00 AM CDT Encounter for pre-employment examination HEPATITIS B SURFACE ANTIBODY (HBSAB) Routine 07/26/2021 9:00 AM CDT Encounter for pre-employment examination documented in this encounter Results * HERPES ZOSTER (VARICELLA) IGG (07/26/2021 9:00 AM CDT) VARICELLA ZOSTER IGG 2.7 >=1.1 AI 07/26/2021 10:00 PM CDT [facility] Blood No Phlebotomy Charged / Unknown 07/26/2021 9:00 AM CDT 07/26/2021 2:15 PM CDT Narrative [facility] - 07/26/2021 10:00 PM CDT <= 0.8 Negative. No detectable VZV IgG antibody. 0.9 - 1.0 Equivocal >=1.1 Positive Antibody testing was performed by multiplex flow immunoassay on the BioPlex platform. Edita L Behrends HAMMER SMITH, WATER SANDER IMMUNOLOGY ORDERABL ES Final Result Performing Organization Address [facility] de Phone Number [facility] [address] [place] [address], [place] * (ABNORMAL) RUBEOLA (MEASLES) IGG (07/26/2021 9:00 AM CDT) MEASLES AB IGG 0.7(L) >=1.1 AI 07/26/2021 10:00 PM CDT [facility] Blood No Phlebotomy Charged / Unknown 07/26/2021 9:00 AM CDT 07/26/2021 2:15 PM CDT Narrative [facility] - 07/26/2021 10:00 PM CDT <= 0.8 Negative. No detectable Measles IgG antibody. 0.9 - 1.0 Equivocal >=1.1 Positive Antibody testing was performed by multiplex flow immunoassay on the BioPlex platform. Edita L Behrends HAMMER SMITH, WATER SANDER IMMUNOLOGY ORDERABL ES Final Result Performing Organization Address [facility] de Phone Number [facility] [address] [place] [address], [place] * RUBELLA IMMUNITY IGG (07/26/2021 9:00 AM CDT) RUBELLA IMMUNITY Immune Immune, Invalid 07/26/2021 10:00 PM CDT [facility] Blood No Phlebotomy Charged / Unknown 07/26/2021 9:00 AM CDT 07/26/2021 2:15 PM CDT Narrative [facility] - 07/26/2021 10:00 PM CDT Antibody testing was performed by multiplex flow immunoassay on the BioPlex platform. us Edita L Behrends HAMMER SMITH, WATER SANDER CHEMISTRY ORDERABLE S Final Result Performing Organization Address City/[facility]/ZIP Co de Phone Number [facility] [address] [place] [address], [place] * MUMPS IGG (07/26/2021 9:00 AM CDT) Mumps Ab IgG 1.2 >=1.1 AI 07/26/2021 10:00 PM CDT [facility] Blood No Phlebotomy Charged / Unknown 07/26/2021 9:00 AM CDT 07/26/2021 2:15 PM CDT Narrative [facility] - 07/26/2021 10:00 PM CDT <= 0.8 Negative. No detectable Mumps IgG antibody. 0.9 - 1.0 Equivocal >=1.1 Positive Antibody testing was performed by multiplex flow immunoassay on the Slots.comlex platform. Edita Finnds HAMMER SMITH, WATER SANDER IMMUNOLOGY ORDERABL ES Final Result Performing Organization Address [facility] Co de Phone Number [facility] [address] [place] [address], [place] * QUANTIFERON-TB GOLD PLUS (07/26/2021 9:00 AM CDT) NIL CONTROL 0.04 <8.01 IU/mL 07/28/2021 1:01 PM CDT [facility] TB ANTIGEN 1 0.00 <0.35 IU/mL 07/28/2021 1:01 PM CDT [facility] TB ANTIGEN 2 0.00 <0.35 IU/mL 07/28/2021 1:01 PM CDT [facility] MITOGEN CONTROL 9.64 >0.49 IU/mL 07/29/19 1:01 PM CDT [facility] INTEPRETATION TB NEGATIVE NEGATIVE, NEGATIVE (TB antigen response less than 25% of internal negative control value) 07/28/2021 1:01 PM CDT [facility] Comment:No immune response t o Mycobacterium tuberculosis antigens was noted. M. tuberculosis infection unlikely. Blood No Phlebotomy Charged / Unknown 07/26/2021 9:00 AM CDT 07/26/2021 2:15 PM CDT Narrative [facility] - 07/28/2021 1:01 PM CDT A POSITIVE QUANTIFERON-TB GOLD PLUS RESULT SHOULD NOT BE THE SOLE OR DEFINITIVE BASIS FOR DETERMINING INFECTION WITH M.TUBERCULOSIS. Diagnosing or excluding tuberculosis disease, and assessing the probability of LTBI, requires a combination of epidemiological, historical, medical and diagnostic findings (e.g., acid fast bacilli (AFB) smear and culture, chest xray) that should be taken into account when interpreting QFT-Plus results. Furthermore, the magnitude of the measured gamma interferon level cannot be correlated to stage or degree of infection, level of immune responsiveness, or likelihood for progression to active disease. The Nil control adjusts for background (e.g., elevated levels of circulating gamma interferon or presence of heterophile antibodies). The Mitogen control serves as an internal positive control and verifies each specimen tested can produce a gamma interferon response. Low mitogen may occur with insufficient lymphocytes, reduced lymphocyte activity due to improper specimen handling, filling/mixing of the mitogen tube, or inability of the patient's lymphocytes to generate gamma interferon. Infection with other Mycobacteria, including M. kansasii, M. szulgai, and M. marinum, may cause false positive results. A negative QuantiFERON-TB Gold Plus result does not preclude the possibility of M. tuberculosis infection or tuberculosis disease: false negative results can be due to incorrect blood sample collection/ improper handling of the specimen, stage of infection (e.g., specimen obtained prior to the development of cellular immune response), co-morbid conditions which affect immune function, or other individual immunological factors. The minimum number of lymphocytes required for a reliable test has not been established and may also be variable. Diagnostic testing for Mycobacterium tuberculosis using Interferon Gamma Release Assays should follow applicable published guidelines, including when testing in populations such as children, women, and HIV-infected or otherwise immunocompromised individuals. https://www.cdc.gov/tb/publications/guidelines/testing.htm us Edita Garza APRN, MARIE IMMUNOLOGY ORDERABL ES Final Result [facility] [address] [place] [address], [place] * HEPATITIS B SURFACE ANTIBODY (HBSAB) (07/26/2021 9:00 AM CDT) HEPATITIS B SURFACE ANTIBODY 8.33 mIU/mL [facility] ARCH [id number] 07/27/2021 12:02 AM CDT [facility] Comment: Grayzone Range: >=8.00 to <=12.00 The immune status of the individual should be further assessed considering other factors, such as clinical status, follow-up testing, associated risk factors and the use of additional diagnostic information. Blood No Phlebotomy Charged / Unknown 07/26/2021 9:00 AM CDT 07/26/2021 2:15 PM CDT us Edita Garza HAMMER SMITH, WATER SANDER CHEMISTRY ORDERABLE S Final Result Performing Organization Address City/State/[facility] Co de Phone Number [facility] [address] [place] [address], [place] documented in this encounter Visit Diagnoses Diagnosis Encounter for pre-employment examination Health examination of defined subpopulation documented in this encounter Additional Health Concerns Assessment Noted Time PHQ-9 Depression Total Score: 0 02/11/20 12:57 PM CDT documented as of this encounter Care Teams Spray Drier Relationship Specialty Start Date End Date Scooter White DO [facility] [place] [address] PCP - General Internal Medicine 03/17/21 06/22/23 Yon Gutierrez MD [address] [place] [address] [address] [address] [place] [address] PCP - General Family Medicine 06/23/23 Manda Signh MD Obstetrics & Gynecology 02/11/20 Malik Cates MD [address] [address] Consulting Physician Endocrinology 12/13/21 Ulices Marino MD [address] [address] Consulting Physician Colon and Rectal Surgery 07/06/22 documented as of this encounter
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
--- OUTSIDE RECORDS SUMMARY | 2024-06-19 15:54 | XMS_ITS | Clinical Summary ---
Author Organization [facility] Address [address] [facility], [facility] [address] [place] [address] Phone Care Team Providers Care Fig Washer Name Role Phone Manda Singh MD Unavailable Malik Cates MD Unavailable Ulices Marino MD Unavailable Yon Gutierrez MD Primary Care Provider Allergies Active Allergy Reactions Criticality Noted Date Comments Cephalexin Hives Medium 12/21/2023 Medications Semaglutide,0.2 5 or 0.5MG/DOS, (Ozempic, 0.25 or 0.5 MG/DOSE,) 2 MG/3ML Solution Pen-injector 0.25 mg SC weekly for 4 weeks and 0.5 mg SC weekly for 4 weeks 6 mL 3 Active Additional Information Patient not taking.Reported on 04/19/2023 ferrous sulfate 325 (65 Fe) MG Tablet Take 1 tablet 3 times a day by oral route. 9 Active docusate sodium 100 MG Capsule Activ e levothyroxine (SYNTHROID) 137 MCG Tablet TAKE 1 TABLET BY MOUTH DAILY 90 Tablet 1 4 Active PHENTERMINE HCL PO Take by mouth. Activ e citalopram (CeleXA) 10 MG Tablet Take 10 mg by mouth daily. 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 Goiter 12/14/2020 Class 2 obesity due to exces s calories with body mass index (BMI) of 35.0 to 35.9 in adult 12/14/2020 Chronic posterior anal fissure 01/29/2020 Iron deficiency anemia due to chronic blood loss 03/07/2019 Referred otalgia, left 01/04/2019 TMJ (temporomandibular joint syndrome) 9 Conductive hearing loss, middle ear 10/18/2018 Chronic serous otitis media of left ear 10/19/19 19 Chronic otitis media of left ear 10/18/2018 Laryngopharyngeal reflux 08/17/2018 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 Chronic cough 08/17/2018 Resolved Problems Problem Noted Date Diagnosed Date Resolved Date Cervical lymphadenopathy- path B9 reactive LN 08/18/19 19 11/13/2018 ETD (Eustachian tube dysfunction), left 08/17/2018 08/17/2018 Immunizations Immunization Administration Dates Next Due Hepatitis B Vaccine 10/14/2019 Influenza Vaccine greater than 3 yrs 01/24/2020 Influenza Vaccine, Quadrivalent, PF 01/24/2020 Influenza, Seasonal, Injectable, Undefined 01/23 TDAP Vaccine 10/10/2019 Family History Medical History Relation Name Comments Asthma Daughter 1 Other-comment Daughter 1 septo-optic dy splasia No Known Problems Daughter 2 Other-comment Maternal Aunt gastric ulcer s Thyroid Disease Maternal Aunt Hypertension Maternal Grandmother Thyroid Disease Maternal Grandmother Thyroid Disease Mother Cancer Paternal Grandfather Diabetes Paternal Grandfather Cancer Paternal Grandmother lung br east No Known Problems Son Relation Name Status Comments Daughter 1 Alive Daughter 2 Alive Maternal Aunt Maternal Grandmother Mother Alive Paternal Grandfather Paternal Grandmother Son Alive Social History Tobacco Use Types Packs/Day Years Used Date Smoking Tobacco: Former Cigarettes 0.3 1 0 10/08/2010 - 10/09/2011 Smokeless Tobacco: Never Alcohol Use Standard Drinks/Week Comments Not Currently 0 (1 standard drink = 0.6 oz pur e alcohol) PHQ-2 Answer Date Recorded Total Score - [...] file Not on file Not on file Last Filed Vital Signs Vital Sign Reading Time Taken Comments Blood Pressure 124/62 12/23/2023 11:01 AM CDT Pulse 74 12/23/2023 11:01 AM CDT Temperature 36.6 C (97.8 F) 12/23/2023 11:01 AM CDT Respiratory Rate 20 12/23/2023 11:01 AM CDT Oxygen Saturation 98% 12/23/2023 11:01 AM CDT Inhaled Oxygen Concentration - - Weight 97.5 kg (215 lb) 04/19/2023 8:07 AM HARDENING MACHINE OPERATOR HELPER Height 165.1 cm (5' 5 ) 04/19/2023 8:07 AM HARDENING MACHINE OPERATOR HELPER Body Mass Index 35.78 04/19/2023 8:07 AM HARDENING MACHINE OPERATOR HELPER Plan of Treatment Health Maintenance Due Date Last Done Comments Hepatitis C Virus (HCV) Screening 1993 Pap Smear 2014 Hepatitis B Immunization (2 of 3 - 19+ 3-dose series) 11/11/2019 10/14/2019 Cervical Cancer Screening (CCS) 2023 HPV/Cotest 2023 Influenza Immunization (#1) 01/07/202401/06, 01/24/2020 SARS-COV-2 Immunization ( season) 2024 08/06/2021, 07/16/2021 Td Immunization Every 10 Years (Adults With 1 Tdap) 10/09/2029 10/10/2019 Respiratory Syncytial Virus (RSV) Immunization (Adult) (1 - 1-dose 75+ series) 01/07/2068 DTaP/Tdap/Td Immunization Discontinued 10/10/2019 Meningococcal Immunization (ACWY) Aged Out No longer eligible based on patient's age to complete this topic Pneumococcal Immunization Combined Aged Out No longer eligible based on patient's age to complete this topic Rotavirus Immunization Aged Out No lo nger eligible based on patient's age to complete this topic Medical Devices Implanted Type Area Environmental Planning Engineer Device Identifier Shelf Expiration Date Model / Serial / Lot Tube Ventilation 5mm Carey Triune - [id number] Implanted:Qty: 1 on 11/05/2018 by Jordon Deng MD at [facility] IMPLANT Left: Ear [employer] 04/06/2020 510-122 / [id number] / [id number] Description:Ear tubes came f rom the same package Tube Ventilation 5mm Carey Triune - [id number] Implanted:Qty: 1 on 11/05/2018 by Jordon Deng MD at [facility] IMPLANT Right: Ear [employer] 04/06/2020 510-122 / 510-122 / [id number] Description:Ear tubes came f rom the same package Insurance * Guarantor: [facility] Account Type Relation to Patient Date of Phone Billing Address Institutional Other [address] [place] [address] Care Teams Fig Washer Relationship Specialty Start Date End Date Yon Gutierrez MD 2 [facility] [address], [place] [id number] PCP - General Family Medicine 06/23/23 Manda Singh MD Obstetrics & Gynecology 02/11/20 Malik Cates MD [address] [facility] [address] [place] [id number] Consulting Physician Endocrinology 12/13/21 Ulices Marino MD [address] [facility] [address] [place] [address] Consulting Physician Colon and Rectal Surgery 07/06/22
--- OUTSIDE RECORDS SUMMARY | 2024-06-19 15:54 | XMS_ITS | Referral Summary ---
Author Organization [facility] Address [address] [place] [address] Care Team Providers Care Teacher Adventure Education Name Role Phone Scooter White DO Primary Care Provider [phone] Source Comments [facility],non-owned Affiliates and Associated Physician Practices is amultiple site organization consisting of ambulatory clinics and hospital sitesin [place], [place], [place] and [place]. This disclosure is being madepursuant to the Care Everywhere program and may not contain all information available regarding this patient. Last updated 18.[facility] Allergies No known active allergies Medications * [...] 08/29/2011 6:38 AM CDT Plan of Treatment Not on file Care Teams Teacher Adventure Education Relationship Specialty Start Date End Date Scooter White DO PCP - General 03/16/22
--- OUTSIDE RECORDS SUMMARY | 2024-06-19 15:55 | XMS_ITS | Continuity of Care Document ---
Author Organization [facility] Address [address] [facility] [address] [place] [address] Phone Care Team Providers Care Data Warehouse Administrator Name Role Phone Carol OD OD, Georgina [...] - Active Procedures Procedure Date OFFICE/OUTPATIENT VISIT, [facility] Comp cont lens eval No Charge Visit N/C Glasses Check Advance Directives Directive Yes / No Effective Date File Name No Information Encounters Encounter Description Practice Location Reason(s) For Visit Diagnoses Date Provider Providers Copied on Encounter [facility], [address] [facility] [address], [place], [place], [id number], [place] tel:[phone] [facility] CONSULT KENTRELL LOPEZ No Information Trell Medina OD Georgina. [address] [facility], [address], [place], [place], [id number], [place]. tel:[phone] Referring Provider: Georgina Medina OD, [address] [address], [place], [place], [address]. tel:[phone] OFFICE/OUTPA TIENT VISIT, [facility], [address] [place] [address], [id number], tel:[phone] O[facility] CONSULT KENTRELL LOPEZ blurry vision (chief complaint) dry eye (chief complaint) Krystin's thyroiditisMyo roger, bilateralTear film insufficiency of bilateral lacrimal glandsOther vitreous opacities, bilateralCorne al neovasculariza tion of both eyes 2 Derheimer OD Georgina. [address], [address] [place] [address], [id number], [place]. tel:[phone] Referring Provider: Scooter White, [address], [place], [address]. tel:[phone] [facility], [address] [place] [address], [id number], tel:[phone] [facility] KENTRELL LOPEZ No Information 6 Derheimer OD Georgina. [address], [address] [place] [address], [id number], [place]. tel:[phone] Referring Provider: Georgina Medina OD, [address], [place], [place], [address]. tel:[phone] [facility], [address] [place] [address], [id number], tel:[phone] OPH CONSULT KENTRELL LOPEZ blurry vision (chief complaint) Myopia, bilateral 6 Derheimer OD Georgina. [address], [place], [place], [id number], [place]. tel:[phone] Referring Provider: Georgina Medina OD, [address], [place], [place], [address]. tel:[phone] [facility], [address] [place] [address], [id number], tel:[phone] OPH CONSULT KENTRELL LOPEZ No Information 1 Beth Cohenl. [address], [place], [place], [address], [place]. tel:[phone] Family History Family Member Type Diagnosis Age [...] Complaint And Reason For Visit No Information Plan Of Treatment Date Type Action Status No Information History Of Present Illness Encounter [...] stronger rx. wants glasses today as well Instructions Date Instruction Additional Infor mation Impression/Plan Related to Myopi a, bilateral Impression/Plan Related to Other vitreous opacities, bilateral Impression/Plan Related to Tear film insufficiency of bilateral lacrimal glands Impression/Plan Related to Christa aldo's thyroiditis Impression/Plan Related to Corne al neovascularization of both eyes Follow up - Return i n 1 year with Georgina Medina, OD for Complete Exam / Contacts. Related to Myopia, bilateral Impression/Plan - Ne w glasses and CL Rx given. Related to Myopia, bilateral Assessments Type Assessment Date No Information
--- OUTSIDE RECORDS SUMMARY | 2024-06-19 15:55 | XMS_ITS | Continuity of Care Document ---
Author Organization [facility] Address [address] [place] [address] [place] [address] Phone Care Team Providers Care Extrusion Press Operator Name Role Phone Robby Torres MD Unavailable Unavailable Allergies, Adverse Reactions, Alerts Substance Reaction Status Criticality No Known Allergies Active No Inform ation Medications Medication Instructions Dosage Effective Dates (start - stop) Status Comments Xanax 0.5 mg tablet take 1 tablet by oral route every 4 hours as needed 0.5 MG - Active PRn for panic attacks, avoid driving or operate machines Effexor XR 150 mg capsule,extended release take 1 capsule by oral route every day 150 MG - Active buspirone 10 mg tablet take 1 tablet by oral route 2 times every day 10 MG - Active avoid driving or operate machines Synthroid 50 mcg tablet take 1 tablet by oral route every day 50 MCG - Active Procedures Procedure Date OFFICE/OUTPATIENT VISIT, EST OFFICE/OUTPATIENT VISIT, EST OFFICE/OUTPATIENT VISIT, EST OFFICE/OUTPATIENT VISIT, EST OFFICE/OUTPATIENT VISIT, EST OFFICE/OUTPATIENT VISIT, EST OFFICE/OUTPATIENT VISIT, EST PREV VISIT, NEW, AGE 18-39 Advance Directives Directive Yes / No Effective Date File Name No Information Encounters Encounter Description Practice Location Reason(s) For Visit Diagnoses Date Provider Providers Copied on Encounter [facility], [address] [facility] [address] [place], [id number], [place] tel:[phone] [facility] No Information 1 Brian Bustamante. [address], [place], [place], [address] , [place]. tel:[phone] [facility], [address], [place], [place], [id number], [place] tel:[phone] [facility] No Information 0 Brian Bustamante. [address], [place], [place], [address] , [place]. tel:[phone] OFFICE/OUTPA TIENT VISIT, [facility], [address], [place], [place], [address], [place] tel:[phone] [facility] anxiety1 (chief complaint) Generalized Anxiety DisorderHypothyroid ism 0 Brian Bustamante. [address], [place], [place], [address] , [place]. tel:[phone] Referring Provider: Robby Torres [address], [place], [place], [id number]. tel:[phone] OFFICE/OUTPA TIENT VISIT, [facility], [address], [place], [place], [id number], [place] tel:[phone] [facility] anxiety1 (chief complaint) Generalized Anxiety DisorderGoiter 0 Brian Bustamante. [address], [place], [place], [address] , [place]. tel:[phone] Referring Provider: Robby Torres [address], [place], [place], [address]. tel:[phone] OFFICE/OUTPA TIENT VISIT, [facility], [address], [place], [place], [address], [place] tel:[phone] [facility] thyroid nodule1 (chief complaint) anxiety1 (chief complaint) GoiterGeneralized Anxiety Disorder 0 Brian Menendez [address], [place], [place], [address] , [place]. tel:[phone] Referring Provider: Gissel Banks [address], [place], [place], [address]. tel:[phone] OFFICE/OUTPA TIENT VISIT, [facility], [address], [place], [place], [address], [place] tel:[phone] [facility] anxiety1 (chief complaint) iron1 (chief complaint) thyroid1 (chief complaint) Disorder of iron metabolism, unspecifiedGoiterGe neralized Anxiety Disorder Lonnie-0 0 Brian Bustamante. [address], [place], [place], [id number] , [place]. [phone] Referring Provider: Gissel Banks [address], [place], [place], [address]. tel:[phone] OFFICE/OUTPA TIENT VISIT, [facility], [address], [place], [place], [address], [place] tel:[phone] [facility] ankle pain1 (chief complaint) fatigue1 (chief complaint) thyroid1 (chief complaint) anemia1 (chief complaint) Pain in right ankleFatigueAnemiaG oiter 0 Brian Bustamante. [address], [place], [place], [address] , [place]. tel:[phone] Referring Provider: Gissel Banks [address], [place], [place], [id number]. tel:[phone] OFFICE/OUTPA TIENT VISIT, [facility], [address], [place], [place], [address], [place] tel:[phone] [facility] rash1 (chief complaint) Allergic contact dermatitis due to plants, except food Aug- 0 Brian Bustamante. [address], [place], [place], [address] , [place]. [phone] Referring Provider: Gissel Banks [address], [place], [place], [address]. tel:[phone] OFFICE/OUTPA TIENT VISIT, [facility], [address], [place], [place], [address], tel:[phone] [facility] Medicine thyroid1 (chief complaint) ferritin1 (chief complaint) IgA (chief complaint) fatigue1 (chief complaint) GoiterDisorder of iron metabolism, unspecifiedVitamin D deficiency, unspecifiedRaised level of immunoglobulinAnemi aH. pylori as the cause of diseases classified elsewhereFatigue 0 Brian Bustamante. [address] [facility] [place], [address] , . tel:[phone] Referring Provider: Gissel Banks [place], [id number]. tel:[phone] PREV VISIT, NEW, AGE 18-39 [facility], [address] [place] [address] [facility] [place], [address], tel:[phone] [facility] PHysical (chief complaint) Encntr for general adult medical exam w/o abnormal findings 0 Brian Bustamante. [address], [facility] [address], [place], [place], [address] , [place]. tel:[phone] Referring Provider: Robby Torres [address] [place] [address], [id number]. tel:[phone] Family History Family Member Type Diagnosis Age At Onset Brother Problem Alive and well Father Problem (finding) Alive and well Mother Problem (finding) Thyroid disorder Payers Payer name Insurance type Covered alliance party ID Authoriza tion(s) No Information Social History Type Description Quantity Date Captured Comments Alcohol Use Details Unknown Caffeine Use Details Unknown Tobacco Use Status No Information Smoking Status No Information Sex Female Chief Complaint And Reason For Visit No Information Plan Of Treatment Date Type Action Status Referral Ordered: Hematology (related to Disorder of iron metabolism, unspecified) ordered Referral Ordered: Joe Fontana -Allopathic [facility] Osteopathic Physicians : Internal Medicine : Endocrinology, Diabetes & Metabolism (related to Goiter) ordered Referral Ordered: SLEEP STUDY, ATTENDED ordered Referral Ordered: Referrals: Hematology. Evaluate and treat ordered Referral Ordered: COLONOSCOPY AND BIOPSY ordered Referral Referred To: Jean Carlos Bolañosshira Joe [address] [facility]
[address] [place], [place] [address] Ordered: Referrals: Allopathic & Osteopathic Physicians : Internal Medicine : Endocrinology, Diabetes & Metabolism. Ring Ring, [place]. Evaluate and treat ordered History Of Present Illness Encounter Date Complaint History Of Prese nt Illness anxiety1 Pt has chronic a nxiety and depression, Pt doing ok with effexor, buspar and xanax PRn, PT denies any suicidal or homicidal thought PT denies any crying spells. Pt needs refill. anxiety1 Pt has chronic a nxiety and depression Pt has been taking effexor and she is doing much better. Pt states that she only has mild anxiety now in crowded area Pt takes xanax PRn and she takes buspar daily Pt denies any side effects Pt overall feels much better thyroid nodule1 Pt has thyroid n odule pt just saw endo and she was started on synthroid 50 mcg recently. Pt denies any dysphagia. Pt denies any headache or chest pain anxiety1 Pt has anxiety a nd depression Pt has been taking lexapro and xanax PRn but she has not noticed much improvement Pt actually had 4-5 panic attacks during last month while on lexapro. pt states that xanax does help but seems always behind the A-ball. Pt has randomly chest pressure and sob with crying spells. last time it occurred was 2 days ago while she was driving Pt denies any tingling. Pt states that episodes usually last 25 mins and then resolves. Pt denies any acute symptoms anxiety1 Pt c/o feeling e motional with crying spells, anxious and depressed for the past 3-4 weeks, Pt denies any suicidal or homicidal thought, Pt states that she has multiple panic attacks randomly with chest tightness and hyperventilation with crying spells. Pt states that she actually has mild anxious and depressed for long time but she feels worse lately Pt also feels short tempered with irritability also. iron1 pt has high iron and high ferritin and high IGA Pt did see hematology and was told that above maybe due to iron infusion and she supposes to do lab in 6 months and recheck thyroid1 Pt has mild thyr omegaly with high TPO Pt states that she tried to contact Dr. ring multiple times without luck. Pt denies any dysphagia anemia1 Pt has history o f mild anemia and high ferritin and high iron Pt has keira with hematology later this week. Pt has not heard from GI yet thyroid1 Pt has thyromega ly and high TPO. Pt denies any dysphagia. 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 Pt thinks that she heard a snap around her right ankle Pt notices severe pain and also bruising and swelling right lateral ankle and lateral food. Pt notices mild numbness and tingling lateral part of her right ankle around the swelling. Pt went to ER and had negative ankle x ray .Pt has been non-weight bearing on right ankle. Pt notices mild warmth right ankle area. Pt denies any toe discoloration or cyanosis Pt denies any calf pain Pt notices mild redness also. Pt denies any skin abrasion or puncture wound. Pt was sent home with 800 mg ibuprofen from ER but she does not feel that it is helping with her pain or swelling . rash1 Pt c/o acute ons et of itchy rash left forearm and spreading to both legs and also to her torso for one week. Pt notices clear drainage Pt denies any fever, chill, sob or wheezing or dysphagia her dog was in the wood and she touched her dog. Pt has been getting new spots and she has been using OTC cream without improvement . fatigue1 Pt has chronic f atigue pt does snore Pt wakes up feeling tired. IgA Pt has borderlin e high IgA .Pt has low D ferritin1 Pt has mildly hi gh ferritin and iron saturation Pt is not anemic currently Pt does have chronic anemia Pt had iron infusion last March. The etiology of her anemia is not known .pt had negative EGD last year and H pylori is currently negative .Pt never had colonoscopy Pt denies any GI bleeding ,Pt does not have any heavy period. Pt told me she has some occasional bright red blood from history of hemorrhoid thyroid1 Pt has normal TS H but TPO is high. Pt denies any neck pain pt does have mild thyromegaly. Pt states that sometimes she has mild dysphagia from her neck PHysical Pt needs annual physical, pt has chronic anemia ,pt denies any heavy period pt denies any blood in urine or blood in stool. Pt gained some weight recently Pt feels tired and hungry all the time. Pt told me she was told that she has a thyroid goiter. Pt denies any dysphagia or neck pain. pt also needs some titer for school. Pt denies any other complaints Instructions Date Instruction Additional Infor kerrie No Information Assessments Type Assessment Date No Information
--- OUTSIDE RECORDS SUMMARY | 2024-06-19 15:55 | XMS_ITS | Encounter Summary ---
Author Organization [facility] Address [address] [place] [address] Phone Care Team Providers Care Surgical Appliances Salesperson Name Role Phone Manda Singh MD Unavailable [phone] Robby Torres Primary Care Provider [phone] Scooter White DO Primary Care Provider Malik Cates MD Unavailable Ulices Marino MD Unavailable Yon Gutierrez MD Primary Care Provider Encounter Details Date Type Department Care Team (Late st Contact Info) Description 03/09/2020 Transcribe Orders [facility] Preop/Pacu II [address] [place] [id number] Walter Blake MD [address] [place] [address] Preop testing (Primary Dx) Social History Tobacco Use Types Packs/Day Years Used Date Smoking Tobacco: Former Cigarettes 0.3 1 0 10/08/2010 - 10/09/2011 Smokeless Tobacco: Never Alcohol Use Standard Drinks/Week Comments Yes 0 (1 standard drink = 0.6 oz pur e alcohol) 1once a month PHQ-2 Answer Date Recorded Total Score - Questions 1-9 0 10/2019 Sexually Active Control Partners Comments Not [...] Exposure Response Date Recorded In the last month, have you been in contact with someone who was confirmed or suspected to have Coronavirus / COVID-19? Unable to assess 03/10/2020 1:32 PM COMPUTER SYSTEMS CONSULTANT documented as of this encounter Plan of Treatment Not on file documented as of this encounter Visit Diagnoses Diagnosis Preop testing- Primary Preoperative examination, unspecified documented in this encounter Additional Health Concerns Infection Onset Date Last Indicated Resolved Time COVID - 19 03/10/2020 03/10/2020 03/16/2020 11:4 0 AM COMPUTER SYSTEMS CONSULTANT Assessment Noted Time PHQ-9 Depression Total Score: 0 02/11/20 12:57 PM CDT documented as of this encounter Care Teams Surgical Appliances Salesperson Relationship Specialty Start Date End Date Robby Torres [address] [place] [address] PCP - General Family Medicine 02/11/20 03/16/21 Scooter White DO [address] [facility] [place] [address] PCP - General Internal Medicine 03/17/21 06/22/23 Yon Gutierrez MD [address] [facility] [address] [place] [address] PCP - General Family Medicine 06/23/23 Manda Singh MD Obstetrics & Gynecology 02/11/20 Malik Cates MD #[address] [facility] [address] [place] [address] Consulting Physician Endocrinology 12/13/21 Ulices Marino MD [address] [place] [address] Consulting Physician Colon and Rectal Surgery 07/06/22 documented as of this encounter
--- OUTSIDE RECORDS SUMMARY | 2024-06-19 15:55 | XMS_ITS | Encounter Summary ---
Author Organization [facility] Address [address] [place] [address] Phone Care Team Providers Care Firefighter Name Role Phone Manda Singh MD Unavailable [phone] Robby Torres Primary Care Provider [phone] Scooter White DO Primary Care Provider Malik Cates MD Unavailable Ulices Marino MD Unavailable Yon Gutierrez MD Primary Care Provider Encounter Details Date Type Department Care Team (Late st Contact Info) Description 04/09/2020 Telephone [facility] [address] [address] [address] Saud Dalton MD [address] [place] [phone] Social History Tobacco Use Types Packs/Day Years [...] or suspected to have Coronavirus / COVID-19? No / Unsure 03/20/2020 6:06 AM VAN CDL DRIVER documented as of this encounter Miscellaneous Notes * Telephone Encounter - Mahnaz Alaniz - 04/09/2020 2:50 PM CST Patient no showed her appointment, left voice message to call the office to reschedule. Sent out a no show letter. CDL DRIVER documented in this encounter Plan of Treatment Not on file documented as of this encounter Visit Diagnoses Not on filedocumented in this encounter Additional Health Concerns Assessment Noted Time PHQ-9 Depression Total Score: 0 02/11/20 20 12:57 PM CDT documented as of this encounter Care Teams Firefighter Relationship Specialty Start Date End Date Brian Robby [address] [place] [address] PCP - General Family Medicine 02/11/20 03/16/21 Scooter White DO [facility] [facility] [place] [address] PCP - General Internal Medicine 03/17/21 06/22/23 Yon Gutierrez MD [address] [facility] [address] [address] PCP - General Family Medicine 06/23/23 Manda Singh MD Obstetrics & Gynecology 02/11/20 Malik Cates MD #[address] [address] Consulting Physician Endocrinology 12/13/21 Ulices Marino MD #[address] [address] Consulting Physician Colon and Rectal Surgery 07/06/22 documented as of this encounter
[2024-06-19 15:56] VITALS: BP 135/78; PULSE 78; RESP 18; TEMP 36.6; O2SAT 100
--- NOTE | 2024-06-19 16:52 | ED.NAVMDI ---
HPI - Nausea/Vomiting/Diarrhea General Chief complaint: Nausea/Vomiting/Diarrhea <Rita Gong PA-C - Last Filed: 06/19/24 16:58> Stated complaint: 14 wks preg, vomiting, BOYER <Rita Gong PA-C - Last Filed: 06/19/24 16:58> Time Seen by Provider: 06/19/24 16:53 <BALA Quintanilla Last Filed: 06/19/24 16:58> Focused HPI: Patient is a 29 y/o female who presents to the ED with c/o migraine and N/V. Patient reports she is currently 14 weeks with twin gestation. . States she has had issues with N/V/migraines throughout . Was started on zofran and sumatriptan by Cindi YEAGER. States she has had a persistent migraine BOYER since Monday night. Took sumatriptan last night w/o relief. Reporting persistent headache today and unable to keep down any food or drink. Referred to the ED for fluids. Does report some lower abd cramping. Denies vaginal bleeding. Denies fevers. Denies cough or cold sx's. GENERAL: Well-appearing, well-nourished, and in no acute distress. HEAD: Normocephalic, atraumatic. CHEST: Clear to auscultation. ?No respiratory distress. HEART: Regular rate and rhythm.? NEURO: ?Alert and oriented x3. Patient screened in triage and initial orders placed.? ?Additional care and disposition to be based upon?diagnostic testing and treatment. <Rita Gong PA-C - Last Filed: 06/19/24 16:58> Source: patient <Rita Gong PA-C - Last Filed: 06/19/24 16:58> Mode of arrival: ambulatory <Rita Gong PA-C - Last Filed: 06/19/24 16:58> Limitations: no limitations <Rita Gong PA-C - Last Filed: 06/19/24 16:58> History of Present Illness HPI Narrative: per HPI <Katya Jones MD - Last Filed: 06/19/24 20:11> Related Data Home medications: Home Medications ?Medication ?Instructions ?Recorded ?Confirmed ?Last Taken ?Type levothyroxine 137 mcg tablet 137 mcg PO DAILY 09/11/23 12/10/23 Unknown History phentermine 37.5 mg capsule 37.5 mg PO DAILY 09/11/23 12/10/23 Unknown History <Rita Gong PA-C - Last Filed: 06/19/24 16:58> Allergies/Adverse reactions: Allergies Allergy/AdvReac Type Severity Reaction Status Date / Time No Known Allergies Allergy Verified 06/19/24 19:11 <Rita Gong PA-C - Last Filed: 06/19/24 16:58> Review of Systems Review of Systems: All systems reviewed & are unremarkable except as noted in HPI and below <Katya Jones MD - Last Filed: 06/19/24 20:11> PMFSH Past Medical History Medical History: Medical History Acute hemorrhoid Anxiety GERD (gastroesophageal reflux disease) History of adverse reaction to anesthesia HTN (hypertension) Hx of hemorrhoids Hypothyroid Wears glasses <Rita Gong PA-C - Last Filed: 06/19/24 16:58> Surgical History Surgical History: Surgical History H/O tubal ligation History of appendectomy History of lumpectomy History of ovarian cystectomy Hx of cholecystectomy <Rita Gong PA-C - Last Filed: 06/19/24 16:58> Family History Family History: Family History Father Hypertension Mother Alcoholism Thyroid disorder Grandparent Breast cancer Hypertension Thyroid disorder Lung cancer <Rita Gong PA-C - Last Filed: 06/19/24 16:58> Social History Social History: Social History Smoking status: Never smoker Substance use: never Substance use type: does not use Lack of Transportation: No Lack of Food: Never True Current Housing: I Have Housing Concerned About Future Housing: No Difficulty Paying Gas/Electric Bills: No Difficulty Paying for Meds: No Currently Unemployed: No Education: Associate Degree Difficulty w/ Childcare or Family Care: No Living arrangements: with family Gender identity (if verbalized by the patient): Female Spiritual care concerns: No <Rita Gong PA-C - Last Filed: 06/19/24 16:58> Exam Narrative: EXAMINATION OF ORGAN SYSTEMS/BODY AREAS: Constitutional: Vital signs per nursing GENERAL:[No acute distress, non-toxic appearing.] HEAD: Normal with no signs of head trauma. EYES: EOMI, conjunctiva normal ENT: Hearing grossly intact LUNGS: Nonlabored breathing. HEART: [Regular rate and rhythm] ABD: [Soft], [nontender to palpation] EXT: Normal range of motion SKIN: [No rashes or lesions.] NEURO: [Alert and oriented x 3. No gross focal sensory or strength deficits.] PSYCH: Normal affect <Katya Jones MD - Last Filed: 06/19/24 20:11> Course Vital Signs Vital signs: Vital Signs Temperature 97.9 F 06/19/24 15:56 Pulse Rate 78 06/19/24 15:56 Respiratory Rate 18 06/19/24 15:56 Blood Pressure 135/78 06/19/24 15:56 Pulse Oximetry 100 06/19/24 15:56 Oxygen Delivery Room Air 06/19/24 15:56 Temperature 98.8 F 06/19/24 19:11 Pulse Rate 66 06/19/24 19:11 Respiratory Rate 14 06/19/24 19:11 Blood Pressure 119/75 06/19/24 19:11 Pulse Oximetry 100 06/19/24 19:11 Oxygen Delivery Room Air 06/19/24 15:56 <Rita Gong PA-C - Last Filed: 06/19/24 16:58> Vital Signs Temperature 97.9 F 06/19/24 15:56 Pulse Rate 78 06/19/24 15:56 Respiratory Rate 18 06/19/24 15:56 Blood Pressure 135/78 06/19/24 15:56 Pulse Oximetry 100 06/19/24 15:56 Oxygen Delivery Room Air 06/19/24 15:56 Temperature 98.8 F 06/19/24 19:11 Pulse Rate 66 06/19/24 19:11 Respiratory Rate 14 06/19/24 19:11 Blood Pressure 119/75 06/19/24 19:11 Pulse Oximetry 100 06/19/24 19:11 Oxygen Delivery Room Air 06/19/24 15:56 <Katya Jones MD - Last Filed: 06/19/24 20:11> MDM - Nausea/Vomiting/Diarrhea MDM Narrative Medical decision making narrative: MSE by MAXIMINO in triage. <Rita Gong PA-C - Last Filed: 06/19/24 16:58> MSE by MAXIMINO in triage. // 29-year-old female around 14 weeks here with migraine, nausea, abdominal cramping. Already tried home medications without much improvement Abdomen soft nontender here, normal neurologic exam, she does have a slightly elevated white count here but I suspect that may be from her symptoms. She does have ultrasound performed by myself does show twin gestation, normal heart rate and movement. After medications here, on re-evaluation she feels much better, smiling, headache essentially relieved, UA does show some bacteria, I will start her on antibiotics. Discussed with patient and will follow-up with OB with strict return precautions. <Katya Jones MD - Last Filed: 06/19/24 20:11> Lab Data Result diagrams: 06/19/24 16:58 06/19/24 16:59 <Rita Gong PA-C - Last Filed: 06/19/24 16:58> Labs: Lab Results 06/19/24 06/19/24 06/19/24 Range/Units 16:58 16:59 18:40 WBC 12.2 H (4.5-10.0) K/mm3 RBC 4.16 L (4.2-5.4) M/mm3 Hgb 12.4 (12.0-15.0) g/dL Hct 35.8 L (37.0-47.0) % MCV 86.1 (80-100) fl MCH 29.8 (26-34) pg MCHC 34.6 (32-36) g/dl RDW 12.2 (11.5-14.5) % Plt Count 276 (150-375) k/mm3 MPV 9.5 (7.4-10.4) fl Immature Gran % (Auto) 0.9 H (0-0.5) % Neut % (Auto) 73.9 H (45.5-73.1) % Lymph % (Auto) 17.1 L (18.3-44.2) % Angelina % (Auto) 6.9 (2.6-8.5) % Eos % (Auto) 0.7 (0-4.4) % Baso % (Auto) 0.5 (0.2-1.2) % Lymph # (Auto) 2.09 (0.9-3.2) K/mm3 Angelina # (Auto) 0.9 H (0.1-0.6) K/mm3 Eos # (Auto) 0.1 (0-0.3) K/mm3 Baso # (Auto) 0.1 (0.0-0.1) K/mm3 Abs Immat Gran (auto) 0.11 H (0.00-0.031) K/mm3 Absolute Neuts (auto) 9.1 H (1.3-6.7) K/mm3 Absolute Nucleated RBC 0.000 (0.0-0.012) K/mm3 Nucleated RBC % 0.0 (0.0-0.2) % Sodium 136 L (137-145) mmol/L Potassium 3.9 (3.4-5.0) mmol/L Chloride 104 (98-107) mmol/L Carbon Dioxide 23 (22-30) mmol/L Anion Gap 9 (4-12) mmol/L BUN 6 L (7-17) mg/dL Creatinine 0.36 L (0.7-1.0) mg/dL Estim Creat Clear Calc Not Reportable Estimated GFR > 60 (59 - ) Glucose 91 (65-110) mg/dL Calcium 9.1 (8.4-10.2) mg/dL Magnesium 1.7 (1.6-2.3) mg/dL Total Bilirubin 0.4 (0.2-1.3) mg/dL AST 19 (14-36) U/L ALT 13 (6-35) U/L Alkaline Phosphatase 56 (38-126) U/L Total Protein 7.0 (6.3-8.2) g/dL Albumin 3.7 (3.5-5.1) g/dL Urine Color Yellow (Yellow) Urine Appearance Cloudy H (Clear) Urine pH 6.5 (5.0-9.0) Ur Specific [place] 1.023 (1.001-1.035) Urine Protein Negative (Negative) mg/dL Urine Glucose (UA) Negative (Negative) mg/dL Urine Ketones Negative (Negative) mg/dL Ur Blood (Man) Negative (Negative) Urine Nitrate Negative (Negative) Urine Bilirubin Negative (Negative) Urine Urobilinogen 1.0 (<2.0) mg/dL Leukocyte Esterase Rfl Negative (Negative) SATYA/UL Urine RBC 0-2 (0-2) /hpf Urine WBC 0-5 (0-3) /hpf Ur Squamous Epith Cells Few (Few) /hpf Urine Bacteria 1+ H /hpf Urine Casts 0-2 <Rita Gong PA-C - Last Filed: 06/19/24 16:58> Lab Results 06/19/24 06/19/24 06/19/24 Range/Units 16:58 16:59 18:40 WBC 12.2 H (4.5-10.0) K/mm3 RBC 4.16 L (4.2-5.4) M/mm3 Hgb 12.4 (12.0-15.0) g/dL Hct 35.8 L (37.0-47.0) % MCV 86.1 (80-100) fl MCH 29.8 (26-34) pg MCHC 34.6 (32-36) g/dl RDW 12.2 (11.5-14.5) % Plt Count 276 (150-375) k/mm3 MPV 9.5 (7.4-10.4) fl Immature Gran % (Auto) 0.9 H (0-0.5) % Neut % (Auto) 73.9 H (45.5-73.1) % Lymph % (Auto) 17.1 L (18.3-44.2) % Angelina % (Auto) 6.9 (2.6-8.5) % Eos % (Auto) 0.7 (0-4.4) % Baso % (Auto) 0.5 (0.2-1.2) % Lymph # (Auto) 2.09 (0.9-3.2) K/mm3 Angelina # (Auto) 0.9 H (0.1-0.6) K/mm3 Eos # (Auto) 0.1 (0-0.3) K/mm3 Baso # (Auto) 0.1 (0.0-0.1) K/mm3 Abs Immat Gran (auto) 0.11 H (0.00-0.031) K/mm3 Absolute Neuts (auto) 9.1 H (1.3-6.7) K/mm3 Absolute Nucleated RBC 0.000 (0.0-0.012) K/mm3 Nucleated RBC % 0.0 (0.0-0.2) % Sodium 136 L (137-145) mmol/L Potassium 3.9 (3.4-5.0) mmol/L Chloride 104 (98-107) mmol/L Carbon Dioxide 23 (22-30) mmol/L Anion Gap 9 (4-12) mmol/L BUN 6 L (7-17) mg/dL Creatinine 0.36 L (0.7-1.0) mg/dL Estim Creat Clear Calc Not Reportable Estimated GFR > 60 (59 - ) Glucose 91 (65-110) mg/dL Calcium 9.1 (8.4-10.2) mg/dL Magnesium 1.7 (1.6-2.3) mg/dL Total Bilirubin 0.4 (0.2-1.3) mg/dL AST 19 (14-36) U/L ALT 13 (6-35) U/L Alkaline Phosphatase 56 (38-126) U/L Total Protein 7.0 (6.3-8.2) g/dL Albumin 3.7 (3.5-5.1) g/dL Urine Color Yellow (Yellow) Urine Appearance Cloudy H (Clear) Urine pH 6.5 (5.0-9.0) Ur Specific [place] 1.023 (1.001-1.035) Urine Protein Negative (Negative) mg/dL Urine Glucose (UA) Negative (Negative) mg/dL Urine Ketones Negative (Negative) mg/dL Ur Blood (Man) Negative (Negative) Urine Nitrate Negative (Negative) Urine Bilirubin Negative (Negative) Urine Urobilinogen 1.0 (<2.0) mg/dL Leukocyte Esterase Rfl Negative (Negative) SATYA/UL Urine RBC 0-2 (0-2) /hpf Urine WBC 0-5 (0-3) /hpf Ur Squamous Epith Cells Few (Few) /hpf Urine Bacteria 1+ H /hpf Urine Casts 0-2 <Katya Jones MD - Last Filed: 06/19/24 20:11> Discharge Plan Discharge Clinical Impression: Bacteriuria during , Migraine <Rita Gong PA-C - Last Filed: 06/19/24 16:58> Patient Disposition: Home, Self-Care <BALA Quintanilla Last Filed: 06/19/24 16:58> Condition: Stable <BALA Quintanilla Last Filed: 06/19/24 16:58> Instructions: Migraine Headache (ED), Abdominal Pain in (ED), Urinary Tract Infection in (ED) <BALA Quintanilla Last Filed: 06/19/24 16:58> Additional Instructions: Please take the medications as prescribed, make sure that you're keeping hydrated, and come back to the hospital for any further issues. Follow-up with your OBGYN. <Rita Gong PA-C - Last Filed: 06/19/24 16:58> Patient Language: Nauruan <Rita Gong PA-C - Last Filed: 06/19/24 16:58> Prescriptions: New cephalexin 500 mg capsule 500 mg PO Q6H 5 Days Qty: 20 0RF No Action prednisone 20 mg tablet See Rx Instructions .ROUTE .COMPLEX Qty: 18 0RF Rx Instructions: take 2 tabs po daily x 5 days, then 1 tab po daily x 5 days, then 1/2 tab po daily x 6 days cephalexin 500 mg capsule 500 mg PO Q6H Qty: 40 0RF fluconazole 150 mg tablet 150 mg PO DAILY Qty: 1 0RF levothyroxine 137 mcg tablet 137 mcg PO DAILY phentermine 37.5 mg Capsule 37.5 mg PO DAILY Rx Instructions: must administer 30 minutes before or 1-2 hours after breakfast <Rita Gong PA-C - Last Filed: 06/19/24 16:58> Follow-up/Referrals: Manny,Cindi E., CNM [Primary Care Provider] - 2 Days <Rita Gong PA-C - Last Filed: 06/19/24 16:58>
[2024-06-19 17:08] LABS: Basophils Absolute Auto 0.1 K/mm3 (0.0-0.1); Basophils Percent Auto 0.5 % (0.2-1.2); Eosinophils Absolute Auto 0.1 K/mm3 (0-0.3); Eosinophils Percent Auto 0.7 % (0-4.4); Hematocrit 35.8 % (37.0-47.0); Hemoglobin 12.4 g/dL (12.0-15.0); Immature Granulocyte Absolute 0.11 K/mm3 (0.00-0.031); Immature Granulocyte Percent A 0.9 % (0-0.5); Lymphocytes Absolute Auto 2.09 K/mm3 (0.9-3.2); Lymphocytes Percent Auto 17.1 % (18.3-44.2); Mean Corpuscular HGB Conc 34.6 g/dl (32-36); Mean Corpuscular Hemoglobin 29.8 pg (26-34); Mean Corpuscular Volume 86.1 fl (80-100); Mean Platelet Volume 9.5 fl (7.4-10.4); Monocytes Absolute Auto 0.9 K/mm3 (0.1-0.6); Monocytes Percent Auto 6.9 % (2.6-8.5); Neutrophils Absolute Auto 9.1 K/mm3 (1.3-6.7); Neutrophils Percent Auto 73.9 % (45.5-73.1); Platelet Count Result 276 k/mm3 (150-375); Red Blood Count 4.16 M/mm3 (4.2-5.4); Red Cell Distribution Width 12.2 % (11.5-14.5); White Blood Count 12.2 K/mm3 (4.5-10.0)
[2024-06-19 17:23] LABS: Alanine Aminotransferase 13 U/L (6-35); Albumin Level 3.7 g/dL (3.5-5.1); Alkaline Phosphatase 56 U/L (38-126); Anion Gap 9 mmol/L (4-12); Aspartate Amino Transferase 19 U/L (14-36); Bilirubin,Total 0.4 mg/dL (0.2-1.3); Blood Urea Nitrogen 6 mg/dL (7-17); Calcium 9.1 mg/dL (8.4-10.2); Carbon Dioxide 23 mmol/L (22-30); Chloride 104 mmol/L (98-107); Estimated Glomerular Filt Rate > 60; Glucose 91 mg/dL (65-110); Magnesium 1.7 mg/dL (1.6-2.3); Potassium 3.9 mmol/L (3.4-5.0); Sodium 136 mmol/L (137-145)
[2024-06-19 18:55] LABS: Add Urine Microscopic? YES; Appearance Urine Cloudy (Clear); Bacteria Urine 1+ /hpf; Bilirubin Urine Negative (Negative); Blood Urine Negative (Negative); Color Urine Yellow (Yellow); Glucose Urine UA Negative (Negative); Ketones Urine Negative (Negative); Leukocyte Esterase Ur Negative LEU/UL (Negative); Nitrate Urine Negative (Negative); Non Pathogenic Casts 0-2; Protein Urine Negative (Negative); RBC Urine 0-2 /hpf (0-2); Specific Grav Ur 1.023 (1.001-1.035); Squamous Epithelial Cell Urine Few /hpf (Few); WBC Urine 0-5 /hpf (0-3); pH Urine 6.5 (5.0-9.0)
[2024-06-19] MEDS: SODIUM CHLORIDE 0.9% IV 1,000 ML 999 ML IV CONT (18:55)
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
--- OUTSIDE RECORDS SUMMARY | 2024-06-19 18:55 | XMS_ITS | Continuity of Care Document ---
Author Organization [facility] Address [address] [place] [address] [place] [address] Phone Care Team Providers Care Senior Insight Manager Name Role Phone Robby Torres MD Unavailable [...] Diagnoses Date Provider Providers Copied on Encounter [facility], [address] [facility] [address] [place], [id number], [place] tel:[phone] [facility] No Information 1 Brian Bustamante. [address], [place], [place], [address] , [place]. tel:[phone] [facility], [address], [place], [place], [address], [place] tel:[phone] [facility] No Information 0 Brian Bustamante. [address], [place], [place], [address] , [place]. tel:[phone] OFFICE/OUTPA TIENT VISIT, [facility], [place], [address], [place], [place], [address], [place] tel:[phone] [facility] anxiety1 (chief complaint) Generalized Anxiety DisorderHypothyroid ism 0 Brian Bustamante. [address], [place], [place], [address] , [place]. tel:[phone] Referring Provider: Robby Torres [address], [place], [place], [address]. tel:[phone] OFFICE/OUTPA TIENT VISIT, [facility], [place], [address], [place], [place], [address], [place] tel:[phone] [facility] anxiety1 (chief complaint) Generalized Anxiety DisorderGoiter 0 Brian Bustamante. [address], [place], [place], [address] , [place]. tel:[phone] Referring Provider: Robby Torres [address], [place], [place], [address]. tel:[phone] OFFICE/OUTPA TIENT VISIT, [facility], [place], [address], [place], [place], [address], [place] tel:[phone] [facility] thyroid nodule1 (chief complaint) anxiety1 (chief complaint) GoiterGeneralized Anxiety Disorder 0 Brian Menendez [address], [place], [place], [address] , [place]. tel:[phone] Referring Provider: Gissel Banks [address], [place], [place], [address]. tel:[phone] OFFICE/OUTPA TIENT VISIT, [facility], [place], [address], [place], [place], [address], [place] tel:[phone] [facility] anxiety1 (chief complaint) iron1 (chief complaint) thyroid1 (chief complaint) Disorder of iron metabolism, unspecifiedGoiterGe neralized Anxiety Disorder Lonnie-0 0 Brian Bustamante. [address], [place], [place], [address] , [place]. [phone] Referring Provider: Gissel Banks [address], [place], [place], [address]. tel:[phone] OFFICE/OUTPA TIENT VISIT, [facility], [place], [address], [place], [place], [address], [place] tel:[phone] [facility] ankle pain1 (chief complaint) fatigue1 (chief complaint) thyroid1 (chief complaint) anemia1 (chief complaint) Pain in right ankleFatigueAnemiaG oiter 0 Brian Bustamante. [address], [place], [place], [address] , [place]. tel:[phone] Referring Provider: Gissel Banks [address], [place], [place], [address]. tel:[phone] OFFICE/OUTPA TIENT VISIT, [facility], [place], [address], [place], [place], [address], [place] tel:[phone] [facility] rash1 (chief complaint) Allergic contact dermatitis due to plants, except food Aug- 0 Brian Bustamante. [address], [place], [place], [address] , [place]. [phone] Referring Provider: Gissel Banks [address], [place], [place], [address]. tel:[phone] OFFICE/OUTPA TIENT VISIT, [facility], [place], [address], [place], [place], [address], tel:[phone] [facility] Medicine thyroid1 (chief complaint) ferritin1 (chief complaint) IgA (chief complaint) fatigue1 (chief complaint) GoiterDisorder of iron metabolism, unspecifiedVitamin D deficiency, unspecifiedRaised level of immunoglobulinAnemi aH. pylori as the cause of diseases classified elsewhereFatigue 0 Brian Bustamante. [address] [facility] [place], [place], [address] , . tel:[phone] Referring Provider: Gissel Banks [place], [place], [address]. tel:[phone] PREV VISIT, NEW, AGE 18-39 [facility], [address] [place] [address] [employer] [place], [place], [address], tel:[phone] [facility] PHysical (chief complaint) Encntr for general adult medical exam w/o abnormal findings 0 Brian Bustamante. [address], [facility] [address], [place], [place], [address] , [place]. tel:[phone] Referring Provider: Robby Torres [address] [place] [address], [id number]. tel:[phone] Family History Family Member Type Diagnosis Age [...] Treatment Date Type Action Status Referral Ordered: Joe Fontana -Allopathic & Osteopathic Physicians : Internal Medicine : Endocrinology, Diabetes & Metabolism (related to Goiter) ordered Referral Ordered: Hematology (related to Disorder of iron metabolism, unspecified) ordered Referral Ordered: SLEEP STUDY, ATTENDED ordered Referral Ordered: Referrals: Hematology. Evaluate and treat ordered Referral Ordered: COLONOSCOPY AND BIOPSY ordered Referral Referred To: Jean Carlos BolañosJoe silva [address] [facility]
[address] [place], [place] [address] Ordered: Referrals: Allopathic & Osteopathic Physicians : Internal Medicine : Endocrinology, Diabetes & Metabolism. RingJoe Vincent. Evaluate and treat ordered History Of Present [...] side effects Pt overall feels much better anxiety1 Pt has anxiety a nd depression [...] then resolves. Pt denies any acute symptoms thyroid nodule1 Pt has thyroid n odule pt just saw endo and she was started on synthroid 50 mcg recently. Pt denies any dysphagia. Pt denies any headache or chest pain anxiety1 Pt c/o feeling e motional with [...] times without luck. Pt denies any dysphagia ankle pain1 Pt was at [employer] and she stepped on gravel which [...] helping with her pain or swelling . 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 Pt denies any dysphagia. pt needs to make keira with endo anemia1 Pt has history o f mild anemia and high ferritin and high iron Pt has keira with hematology later this week. Pt has not heard from GI yet rash1 Pt c/o acute ons et of [...] been using OTC cream without improvement . thyroid1 Pt has normal TS H but TPO is high. Pt denies any neck pain pt does have mild thyromegaly. Pt states that sometimes she has mild dysphagia from her neck ferritin1 Pt has mildly hi gh ferritin [...] bright red blood from history of hemorrhoid IgA Pt has borderlin e high IgA .Pt has low D fatigue1 Pt has chronic f atigue pt does snore Pt wakes up feeling tired. PHysical Pt needs annual physical, pt has [...]
--- OUTSIDE RECORDS SUMMARY | 2024-06-19 18:55 | XMS_ITS | Clinical Summary ---
Author Organization [facility] Address [address] [place] [address] Care Team Providers Care Credit Negotiator Name Role Phone Scooter White DO Primary Care Provider [phone] Source Comments [facility],non-owned Affiliates and Associated Physician Practices is amultiple site organization consisting of ambulatory clinics and hospital sitesin [place] and [place]. This disclosure is being madepursuant to the Care Everywhere program and may not contain all information available regarding this patient. Last updated 18.[facility] Allergies No known active allergies Medications * [...] age to complete this topic Care Teams Credit Negotiator Relationship Specialty Start Date End Date Scooter White DO PCP - General 03/16/22
--- OUTSIDE RECORDS SUMMARY | 2024-06-19 18:55 | XMS_ITS | Encounter Summary ---
Author Organization [facility] Address [address] [place] [address] Care Team Providers Care Leather Worker Name Role Phone Scooter White DO Primary Care Provider Encounter Details Date Type Department Care Team (Late st Contact Info) Description 11/06/2018 Lab Requisition [facility] Care Pathology Lab [address] [place] [address] Cindi Herrera MD [address] [place] [address] Enlarged lymph nodes Social History Tobacco Use [...] AM CDT) Case Report Flow Cytometry Case: [id number] Authorizing Provider: Cindi Herrera MD Collected: 11/05/2018 11:02 AM Pathologist: Alexa Weinberg MD Received: 11/06/2018 02:01 PM Specimen: Cervical Lymph Node , Left 9 5:33 PM [facility] Final Diagnosis Lymph node, left cervical, flow cytometric immunophenotypic analysis: - No evidence of non-Hodgkin lymphoma. - See interpretation. 9 5:33 PM [facility] Flow Cytometry Interpretation The left [...] flow cytometry specimen is reviewed for quality control tech purposes. In summary, the left cervical lymph node specimen shows no evidence of a non-Hodgkin lymphoma. Correlation with additional clinical information and the concurrent biopsy specimen is required. KR 9 5:33 PM [facility] Flow Cytometry Results Differential Result Comment Flow Cell Count /uL [id number] Total Viability % 86.0 Lymphocytes % 97 Dim CD45 Region % 0 Monocytes % 1 Granulocytes % 1 9 5:33 PM [facility] Reason for test Enlarged lymph nodes 785.6 9 5:33 PM [facility] Client Specimen ID # [id number] 9 5:33 PM [facility] Number of markers 16 were performed. A Flow CD3 A Flow CD10 A Flow CD20 A Flow CD23 A Flow CD2 A Flow CD4 A Flow CD1a A Flow CD5 A Flow CD19 A Flow CD34 A Flow CD45 A Flow CD7 A Flow CD8 A Flow CD30 A Crossett+CD19+ A Lambda+CD19+ 9 5:33 PM [facility] Disclaimer Test performed at [facility], [address] [place] [address], [address]. *The established laboratory minimum viability is 70%. [...] complexity clinical testing. 9 5:33 PM CDT [facility] Embedded Images 9 5:33 PM CDT [facility] Pathology/Cytolo gy ENTIRE CERVICAL LYMPH NODE / Unknown 11/05/2018 11:02 AM CDT 11/06/2018 2:01 PM CDT Cindi Herrera MD LAB - PATHOLOGY/CYTO LOGY ORDERABLES Performing Organization Address City/State/[facility] Co de Phone Number [facility] [address] [phone] documented in this encounter Visit Diagnoses Diagnosis Enlarged lymph nodes Enlargement of lymph nodes documented in this encounter Care Teams Leather Worker Relationship Specialty Start Date End Date Scooter White DO PCP - General 03/16/22 documented as of this encounter
--- OUTSIDE RECORDS SUMMARY | 2024-06-19 18:55 | XMS_ITS | Continuity of Care Document ---
Author Organization [facility] Address [address] [address] [place] [address] Phone Care Team Providers Care Production Grader Name Role Phone Carol OD OD, Georgina [...] - Active Procedures Procedure Date OFFICE/OUTPATIENT VISIT, [facility] Comp cont lens eval No Charge Visit N/C Glasses Check Advance Directives Directive Yes / No Effective Date File Name No Information Encounters Encounter Description Practice Location Reason(s) For Visit Diagnoses Date Provider Providers Copied on Encounter [facility], [address], [place], [place], [address], [place] tel:[phone] [facility] No Information Trell Medina OD Georgina. [address], [place], [place], [address], [place]. tel:[phone] Referring Provider: Georgina Medina OD, [address], [place], [place], [address]. tel:[phone] OFFICE/OUTPA TIENT VISIT, [facility], [address] [place] [address], [id number], tel:[phone] [facility] blurry vision (chief complaint) dry eye (chief complaint) Krystin's thyroiditisMyo roger, bilateralTear film insufficiency of bilateral lacrimal glandsOther vitreous opacities, bilateralCorne al neovasculariza tion of both eyes 2 Derheimer OD Georgina. [address], [address] [place] [address], [id number], [place]. tel:[phone] Referring Provider: Scooter White, [address], [place], [address]. tel:[phone] [facility], [address] [place] [address], [id number], tel:[phone] Optical Services KENTRELL LOPEZ No Information 6 Derheimer OD Georgina. [address], [address] [place] [address], [id number], [place]. tel:[phone] Referring Provider: Georgina Medina OD, [address], [place], [place], [address]. tel:[phone] [facility], [address] [place] [address], [id number], tel:[phone] [facility] CONSULT KENTER[facility]OPE[facility] blurry vision (chief complaint) Myopia, bilateral 6 Derheimer OD Georgina. [address], [place], [place], [address], [place]. tel:[phone] Referring Provider: Georgina Medina OD, [address], [place], [place], [address]. tel:[phone] [facility], [address] [place] [address], [id number], tel:[phone] [facility] No Information 1 Beth Cohenl. [address], [place], [place], [address], [place]. tel:[phone] Family History Family Member Type Diagnosis Age At Onset Problem No family history of Diabete s mellitus Problem No family history of Macular degeneration Problem No family history of Hyperte nsion Problem No family history of Glaucom a Payers Payer name Insurance type Covered republican ID Authoriza tion(s) No Information Social History [...]
--- OUTSIDE RECORDS SUMMARY | 2024-06-19 18:55 | XMS_ITS | Patient Health Summary ---
Author Organization [facility] Address [address] [place] [address] Care Team Providers Care Office Equipment Technician Name Role Phone Alis White DO Primary Care Provider Note from [facility],non-owned Affiliates and Associated Physician Practices is amultiple site organization consisting of ambulatory clinics and hospital sitesin [place], [place], [place] and [place]. This disclosure is being madepursuant to the Care Everywhere program and may not contain all information available regarding this patient. Last updated 18.[facility] Allergies No known active allergies Medications [...] AM CDT) Case Report Flow Cytometry Case: [id number] Authorizing Provider: Cindi Herrera MD Collected: 11/05/2018 11:02 AM Pathologist: Alexa Weinberg MD Received: 11/06/2018 02:01 PM Specimen: Cervical Lymph Node , Left 5:33 PM CDT [facility] Final Diagnosis Lymph node, left cervical, flow cytometric immunophenotypic analysis: - No evidence of non-Hodgkin lymphoma. - See interpretation. 5:33 PM CDT [facility] Flow Cytometry Interpretation The [...] the flow cytometry specimen is reviewed for bottle house quality control technician purposes. In summary, the left cervical lymph node specimen shows no evidence of a non-Hodgkin lymphoma. Correlation with additional clinical information and the concurrent biopsy specimen is required. KR 9 5:33 PM T [facility] Flow Cytometry Results Differential Result Comment Flow Cell Count /uL [id number] Total Viability % 86.0 Lymphocytes % 97 Dim CD45 Region % 0 Monocytes % 1 Granulocytes % 1 9 5:33 PM CDT [facility] Reason for test Enlarged lymph nodes 785.6 9 5:33 PM CDT [facility] Client Specimen ID # [id number] 9 5:33 PM [facility] Number of markers 16 were performed. A Flow CD3 A Flow CD10 A Flow CD20 A Flow CD23 A Flow CD2 A Flow CD4 A Flow CD1a A Flow CD5 A Flow CD19 A Flow CD34 A Flow CD45 A Flow CD7 A Flow CD8 A Flow CD30 A Erda+CD19+ A Lambda+CD19+ 9 5:33 PM CDT [facility] Disclaimer Test performed at [facility], [address], [place], [address]. *The established laboratory minimum viability is 70%. [...] complexity clinical testing. 9 5:33 PM CDT [facility] Embedded Images 9 5:33 PM CDT [facility] Pathology/Cytolo gy ENTIRE CERVICAL LYMPH NODE / Unknown 11/05/2018 11:02 AM CDT 11/06/2018 2:01 PM CDT Cindi Herrera MD LAB - PATHOLOGY/CYTO LOGY ORDERABLES [facility] [address] [place] [address]. [address] [phone] * IMAGING/RADIOLOGY/XRAY RESULTS ORDER (01/25/2012 6:57 AM [...] UA NEGATIVE NEGATIVE mg/dl [facility] Specific [place] UA <=1.005 1.003 - 1.030 [facility] Blood UA NEGATIVE NEGATIVE [facility] pH UA 6.5 5.0 - 9.0 [facility] Protein UA NEGATIVE NEGATIVE-TR SELVIN mg/dl [facility] Urobilinogen UA 0.2 0.2 - 1.0 Sherita Units/dl [facility] Nitrite UA NEGATIVE NEGATIVE [facility] Leukocyte UA NEGATIVE NEGATIVE [facility] Urine Culture Culture is not indicated per protocol. [facility] Urine specimen (specimen) URINE SPECIMEN OBTAINED BY CLEAN CATCH PROCEDURE / Unknown 08/29/2011 6:45 AM CDT 08/29/2011 6:55 AM CDT Chante Hung MD LAB - URINALYSIS ORD ERABLES [facility] [address] [place] [address] * GLUCOSE PROTEIN KETONE URINE - POINT [...] POINT OF CARE ORDERABLES Performing Organization Address City/[facility]/ZIP Co de Phone Number [place] [address] * SONOGRAM - COMPLETE (08/24/2011 9:18 AM CDT) Only the most recent of3 resultswithin the time period is included. Anatomical Region Laterality Modality Other 08/24/2011 9:18 AM CDT Narrative 08/24/2011 12:39 PM CDT [facility] PHONE: FAX: Pat. Name: HAIM YOUNG Pat. No: [id number] Study Date: 08/24/2011 9:18am , Age: 09 1995, 16 Pregnancies: 1 LMP: 02/08/2011 GA by LMP: 28w1d GA by 1st: 28w1d GA by US: 28w3d GA Selected: 28w1d (LMP) BETTY: 11/15/2011 Referring MD: RICARDO BARAHONA MD General Neurologist: Blanca Cheng RDMS Hist/Ind: Circumvallate Placenta Growth MEASUREMENTS & AGE GROWTH EVALUATION Measurement GA Range Srce %for GA Ratios ----- ---- ------- BPD 7.3 cm 29w1d (67z9k-79p6i) Hadl BPD 71% FL/BPD 0.72 (0.71 - 0.87) HC 26.6 cm 29w0d (09f3w-93l1f) Hadl HC 69% FL/AC 0.22 (0.20 - 0.24) AC 24.2 cm 28w3d (33y8n-26x4o) Hadl AC 57% HC/AC 1.10 (0.99 - 1.18) FL 5.3 cm 28w0d (36y6a-19s6q) Hadl FL 48% CI 0.76 (0.70 - 0.86) HL 4.6 cm 27w2d (14u2i-14v2n) Eder MATA 36% GA for sonogram 28w3d (38q4o-71o0z) Weight Estimate: based on (HL,BPD,HC,AC,FL) Avg Weight: 1220 gm (8105-7623) Hadlo : 2lbs, 11oz Normal: 1166 gm [...] <Electronic Signature> 08/24/2011 12:38pm Ricardo Barahona MD [facility] ORDERABLES * LAB RESULTS ORDER (12/17/2009 [...] review on December 14. It is from [facility] in [place], [place]. Exam consists of 66 images. I [...] review on December 14. It is from [facility] in [place], [place]. Exam consists of 66 images. I [...] delayed phase images obtained on 12/13/2009 at [place], [place] are presented for review. The lung [...] delayed phase images obtained on 12/13/2009 at [place], [place] are presented for review. The lung [...] period is included. Comment Manual Diff Done [facility] Neutrophils % Manual 76(H) 24 - 66 % [facility] Lymphocytes % Manual 20(L) 22 - 61 % [facility] Monocytes % Manual 4 3 - 15 % [facility] RBC Morphology Normal [facility] BLOOD SPECIMEN / Unknown 12/14/2009 4:20 AM CDT 12/14/2009 5:05 AM CDT Roque Marino MD LAB - HEMATOLOGY ORD ERABLES Performing Organization Address City/State/[facility] Co de Phone Number [facility] [address] [place] [address] * (ABNORMAL) CBC W AUTO DIFFERENTIAL (12/14/2009 4:20 AM CDT) Only the most recent of2 resultswithin the time period is included. WBC 9.53 4.5 - 14.5 K/cumm [facility] RBC 3.86(L) 4.10 - 5.10 mill/cumm [facility] Hemoglobin 11.4(L) 12.0 - 16.0 gm/dl [facility] Hematocrit 32.8(L) 36.0 - 47.0 % [facility] MCV 85.0 78.0 - 102.0 cu microns [facility] MCH 29.5 25.0 - 35.0 uug [facility] MCHC 34.8 31.0 - 37.0 % [facility] RDW 11.7 % [facility] MPV 9.7 fl [facility] Platelet Count 182 100 - 400 K/cumm [facility] Comment Manual Diff Done [facility] BLOOD SPECIMEN / Unknown 12/14/2009 4:20 AM CDT 12/14/2009 4:40 AM CDT Michaellerichy Holloway DO LAB - HEMATOLOGY OR DERABLES Performing Organization Address City/State/[facility] Co ms Phone Number [facility] [address] [place] [address] * GROSS + MICRO EXAM (12/13/2009 11:43 PM CDT) [facility] Clinical History [facility] Comment: The patient is a 14-year-old girl with abdominal pain who underwent appendectomy and diagnostic laparotomy. The operative findings were a hemorrhagic ovarian cyst and a normal appendix. Gross Description [facility] Comment: Submitted fixed in formalin [...] diameter. The specimen is serially sectioned, and publications sales representative sections are submitted in cassette A1. (CT/nab) Microscopic Examination [facility] Comment: 1 H+E. Sections of the vermiform appendix show mild expansion of the lamina propria by mixed inflammatory cells, numerous secondary lymphoid follicles, neutrophilic infiltration of a few crypts, and a rare crypt abscess. No granulomata are present. There is no significant architectural distortion. There is no transmural inflammation. Ganglia are present in submucosal and myenteric plexuses. (DSB) Diagnosis [facility] Comment: DIAGNOSIS: VERMIFORM APPENDIX, EXCISION: - ACUTE INFLAMMATION, MILD. - LYMPHOID HYPERPLASIA. This case has been personally reviewed and interpreted by the attending (teaching) pathologist. Supervisor Edging ASHWINI AGARWAL, [facility] Resident in Pathology Margarito Helton M.D. [facility] Pathologist Alis Brennan M.D. [facility] Electronically Signed By ALIS BRENNAN M.D. [facility] ENTIRE APPENDIX / Unknown 12/13/2009 11:43 PM CDT 12/14/2009 7:48 AM CDT Roque Marino MD LAB - PATHOLOGY/CYTO LOGY ORDERABLES Performing Organization Address [facility] Co de Phone Number [facility] [address] [place] [address] * (ABNORMAL) URINALYSIS ROUTINE AUTO (12/13/2009 10:45 PM CDT) Only the most recent of2 resultswithin the time period is included. Color UA YELLOW [facility] Character UA CLEAR [facility] Specific [place] UA 1.025 1.003 - 1.030 [facility] pH UA 6.0 5.0 - 8.0 [facility] Protein UA NEGATIVE Negative [facility] Glucose UA NEGATIVE Negative gm/dl [facility] Ketone UA 3+(AA) Negative [facility] Blood UA NEGATIVE Negative [facility] Bilirubin UA NEGATIVE Negative [facility] Reducing Substances UA NEGATIVE Negative % [facility] WBC UA 0-2 /HPF [facility] RBC UA rare /HPF [facility] Epithelial Cell UA rare /HPF [facility] Bacteria UA trace [facility] Leukocyte UA NEGATIVE [facility] Nitrite UA NEGATIVE [facility] Urobilinogen UA 0.2 <=1.0 EU/dl [facility] URINE SPECIMEN COLLECTION, CATHETERIZED / Unknown 12/13/2009 10:45 PM CDT 12/13/2009 11:03 PM CDT Roque Marino MD LAB - URINALYSIS ORD ERABLES Performing Organization Address City/[facility]/ZIP Co de Phone Number [facility] [address] [place] [address] * CULTURE URINE (12/13/2009 10:45 PM CDT) Only the most recent of2 resultswithin the time period is included. Report [facility] Comment: Final - GRAM STAIN No organisms seen CULTURE NO GROWTH (<1000 CFU/ml) URINE SPECIMEN COLLECTION, CATHETERIZED / Unknown 12/13/2009 10:45 PM CDT 12/13/2009 11:03 PM CDT Roque Marino MD LAB - MICROBIOLOGY O RDERABLES [facility] [address] [place] [address] Care Teams Office Equipment Technician Relationship Specialty Start Date End Date Alis White DO PCP - General 03/16/22
--- OUTSIDE RECORDS SUMMARY | 2024-06-19 18:55 | XMS_ITS | Referral Summary ---
Author Organization [facility] [employer] Address [address] [place] [address] Care Team Providers Care Real Estate Acquisition Analyst Name Role Phone Scooter White DO Primary Care Provider [phone] Source Comments [facility],non-owned Affiliates and Associated Physician Practices is amultiple site organization consisting of ambulatory clinics and hospital sitesin [place], [place] and [place]. This disclosure is being madepursuant to the Care Everywhere program and may not contain all information available regarding this patient. Last updated 18.[facility] [employer] Allergies No known active allergies Medications * [...] of Treatment Not on file Care Teams Real Estate Acquisition Analyst Relationship Specialty Start Date End Date Scooter White DO PCP - General 03/16/22
--- OUTSIDE RECORDS SUMMARY | 2024-06-19 18:55 | XMS_ITS | Clinical Summary ---
Author Organization [facility] [employer] Address [address] [facility] [address] [place] [address] Phone Care Team Providers Care Holter Scanning Technician Name Role Phone Manda Singh MD Unavailable [phone] Malik Cates MD Unavailable Ulices Marino MD [...] 97.5 kg (215 lb) 04/19/2023 8:07 AM LOOM MECHANIC Height 165.1 cm (5' 5 ) 04/19/2023 8:07 AM LOOM MECHANIC Body Mass Index 35.78 04/19/2023 8:07 AM LOOM MECHANIC Plan of Treatment Health Maintenance Due Date [...] this topic Medical Devices Implanted Type Area Zinc Plate Cutter Device Identifier Shelf Expiration Date Model / Serial / Lot Tube Ventilation 5mm [employer] - [id number] Implanted:Qty: 1 on 11/05/2018 by Jordon Deng MD at [facility] IMPLANT Left: Ear [employer] 04/06/2020 510-122 / 510-122 / [id number] Description:Ear tubes came f rom the same package Tube Ventilation 5mm [employer] Triune - [id number] Implanted:Qty: 1 on 11/05/2018 by Jordon Deng MD at [facility] IMPLANT Right: Ear [employer] 04/06/2020 510-122 / 510-122 / [id number] Description:Ear tubes came f rom the same package Insurance * Guarantor: [facility] [employer] Account Type Relation to Patient Date of Phone Billing Address Institutional Other [address] [place] [address] Care Teams Holter Scanning Technician Relationship Specialty Start Date End Date Yon Gutierrez MD [address] [facility] [address] [place], [place] [id number] PCP - General Family Medicine 06/23/23 Manda Singh MD Obstetrics & Gynecology 02/11/20 Malik Cates MD [address] [facility] [address] [place] [id number] Consulting Physician Endocrinology 12/13/21 Ulices Marino MD [address] [facility] [address] [place] [address] Consulting Physician Colon and Rectal Surgery 07/06/22
--- OUTSIDE RECORDS SUMMARY | 2024-06-19 18:55 | XMS_ITS | Encounter Summary ---
Author Organization [facility] Address [address] [place] [address] Phone Care Team Providers Care Manager Wellness Name Role Phone Manda Singh MD Unavailable [phone] Scooter White DO Primary Care Provider Malik Cates MD Unavailable Ulices Marino MD Unavailable Yon Gutierrez MD Primary Care Provider Encounter Details Date Type Department Care Team (Late st Contact Info) Description 07/26/2021 Lab Requisition [facility] [address] [place] [address] Edita Garza, MESS ATTENDANT CREW, SOFTWARE DEVELOPMENT PROJECT MANAGER [address] [place] [address] Encounter for pre-employment examination Social History Tobacco [...] >=1.1 AI 07/26/2021 10:00 PM CDT [facility] Blood No Phlebotomy Charged / Unknown 07/26/2021 9:00 AM CDT 07/26/2021 2:15 PM CDT Narrative [facility] - 07/26/2021 10:00 PM CDT <= 0.8 Negative. No detectable VZV IgG antibody. 0.9 - 1.0 Equivocal >=1.1 Positive Antibody testing was performed by multiplex flow immunoassay on the BioPlex platform. Edita L [employer] MESS ATTENDANT CREW, SOFTWARE DEVELOPMENT PROJECT MANAGER IMMUNOLOGY ORDERABL ES Final Result Performing Organization Address [facility] de Phone Number [facility] [address] [place] [address], [place] * (ABNORMAL) RUBEOLA (MEASLES) IGG (07/26/2021 9:00 AM CDT) MEASLES AB IGG 0.7(L) >=1.1 AI 07/26/2021 10:00 PM CDT [facility] Blood No Phlebotomy Charged / Unknown 07/26/2021 9:00 AM CDT 07/26/2021 2:15 PM CDT Narrative [facility] - 07/26/2021 10:00 PM CDT <= 0.8 Negative. No detectable Measles IgG antibody. 0.9 - 1.0 Equivocal >=1.1 Positive Antibody testing was performed by multiplex flow immunoassay on the BioPlex platform. Edita L [employer] MESS ATTENDANT CREW, SOFTWARE DEVELOPMENT PROJECT MANAGER IMMUNOLOGY ORDERABL ES Final Result Performing Organization Address [facility] de Phone Number [facility] [address] [place] [address], [place] * RUBELLA IMMUNITY IGG (07/26/2021 9:00 AM CDT) RU[facility]LLA IMMUNITY Immune Immune, Invalid 07/26/2021 10:00 PM CDT [facility] Blood No Phlebotomy Charged / Unknown 07/26/2021 9:00 AM CDT 07/26/2021 2:15 PM CDT Narrative [facility] - 07/26/2021 10:00 PM CDT Antibody testing was performed by multiplex flow immunoassay on the BioPlex platform. us Edita L Behrends MESS ATTENDANT CREW, SOFTWARE DEVELOPMENT PROJECT MANAGER CHEMISTRY ORDERABLE S Final Result Performing Organization Address City/[facility]/ZIP Co de Phone Number [facility] [address] [place] [address], [place] * MUMPS IGG (07/26/2021 9:00 AM CDT) Mumps Ab IgG 1.2 >=1.1 AI 07/26/2021 10:00 PM CDT [facility] Blood No Phlebotomy Charged / Unknown 07/26/2021 9:00 AM CDT 07/26/2021 2:15 PM CDT Narrative [facility] - 07/26/2021 10:00 PM CDT <= 0.8 Negative. No detectable Mumps IgG antibody. 0.9 - 1.0 Equivocal >=1.1 Positive Antibody testing was performed by multiplex flow immunoassay on the Center[employer]lex platform. Edita Finnds MESS ATTENDANT CREW, SOFTWARE DEVELOPMENT PROJECT MANAGER IMMUNOLOGY ORDERABL ES Final Result Performing Organization Address [facility] Co de Phone Number [facility] [address] [place] [address], [place] * QUANTIFERON-TB GOLD PLUS (07/26/2021 9:00 AM CDT) NIL CONTROL 0.04 <8.01 IU/mL 07/28/2021 1:01 PM CDT [facility] TB ANTIGEN 1 0.00 <0.35 IU/mL 07/28/2021 1:01 PM CDT [facility] TB ANTIGEN 2 0.00 <0.35 IU/mL 07/28/2021 1:01 PM CDT [facility] MITOGEN CONTROL 9.64 >0.49 IU/mL 07/29/19 1:01 PM CDT [facility] INTEPRETATION TB NEGATIVE NEGATIVE, NEGATIVE (TB antigen response less than 25% of internal negative control value) 07/28/2021 1:01 PM CDT [facility] Comment:No immune response t o Mycobacterium tuberculosis antigens was noted. M. tuberculosis infection unlikely. Blood No Phlebotomy Charged / Unknown 07/26/2021 9:00 AM CDT 07/26/2021 2:15 PM CDT Narrative [facility] - 07/28/2021 1:01 PM CDT A [...] [facility] [address] [place] [address], [place] * HEPATITIS B SURFACE ANTIBODY (HBSAB) (07/26/2021 9:00 AM CDT) HEPATITIS B SURFACE ANTIBODY 8.33 mIU/mL [facility] ARCH [id number] B 07/27/2021 12:02 AM CDT [facility] Comment: Grayzone Range: >=8.00 to <=12.00 The immune status of the individual should be further assessed considering other factors, such as clinical status, follow-up testing, associated risk factors and the use of additional diagnostic information. Blood No Phlebotomy Charged / Unknown 07/26/2021 9:00 AM CDT 07/26/2021 2:15 PM CDT us Edita Garza MESS ATTENDANT CREW, SOFTWARE DEVELOPMENT PROJECT MANAGER CHEMISTRY ORDERABLE S Final Result Performing Organization Address City/State/[facility] Co de Phone Number [facility] [address] [place] [address], [place] documented in this encounter Visit Diagnoses Diagnosis Encounter for pre-employment examination Health examination of defined subpopulation documented in this encounter Additional Health Concerns Assessment Noted Time PHQ-9 Depression Total Score: 0 02/11/20 12:57 PM CDT documented as of this encounter Care Teams Manager Wellness Relationship Specialty Start Date End Date Scooter White DO [facility]NOTE [address]] [place] [address] PCP - General Internal Medicine 03/17/21 06/22/23 Yon Gutierrez MD [address] [place] [address] [address] [address] [place] [address] PCP - General Family Medicine 06/23/23 Manda Singh MD Obstetrics & Gynecology 02/11/20 Malik Cates MD #[address] [address] Consulting Physician Endocrinology 12/13/21 Ulices Marino MD #[address] [address] Consulting Physician Colon and Rectal Surgery 07/06/22 documented as of this encounter
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
--- OUTSIDE RECORDS SUMMARY | 2024-06-19 18:55 | XMS_ITS | Encounter Summary ---
Author Organization [facility] Address [address] [place] [address] Phone Care Team Providers Care Engineering Laboratory Technician Name Role Phone Manda Singh MD Unavailable [phone] Robby Torres Primary Care Provider [phone] Scooter White DO Primary Care Provider Malik Cates MD Unavailable Ulices Marino MD Unavailable Yon Gutierrez MD Primary Care Provider Encounter Details Date Type Department Care Team (Late st Contact Info) Description 03/09/2020 Transcribe Orders [facility] Preop/Pacu II [address] [place] [id number] Walter Blake MD [address] [place] [address] Preop testing (Primary Dx) Social History Tobacco [...] COVID-19? Unable to assess 03/10/2020 1:32 PM CHEF ASSISTANT documented as of this encounter Plan of Treatment Not on file documented as of this encounter Visit Diagnoses Diagnosis Preop testing- Primary Preoperative examination, unspecified documented in this encounter Additional Health Concerns Infection Onset Date Last Indicated Resolved Time COVID - 19 03/10/2020 03/10/2020 03/16/2020 11:4 0 AM CHEF ASSISTANT Assessment Noted Time PHQ-9 Depression Total Score: 0 02/11/20 12:57 PM CDT documented as of this encounter Care Teams Engineering Laboratory Technician Relationship Specialty Start Date End Date Robby Torres [address] [place] [address] PCP - General Family Medicine 02/11/20 03/16/21 Scooter White DO [address] [facility] [place] [place] [address] PCP - General Internal Medicine 03/17/21 06/22/23 Yon Gutierrez MD 2 [facility] [address] [place] [address] PCP - General Family Medicine 06/23/23 Manda Singh MD Obstetrics & Gynecology 02/11/20 Malik Cates MD #2 [facility] [address] [place] [address] Consulting Physician Endocrinology 12/13/21 Ulices Marino MD #2 [place] [address] Consulting Physician Colon and Rectal Surgery 07/06/22 documented as of this encounter
--- OUTSIDE RECORDS SUMMARY | 2024-06-19 18:55 | XMS_ITS | Encounter Summary ---
Author Organization [facility] Address [address] [place] [address] Phone Care Team Providers Care Industrial Sales Manager Name Role Phone Manda Singh MD Unavailable [phone] Robby Torres Primary Care Provider [phone] Scooter White DO Primary Care Provider Malik Cates MD Unavailable Ulices Marino MD Unavailable Yon Gutierrez MD Primary Care Provider Encounter Details Date Type Department Care Team (Late st Contact Info) Description 04/09/2020 Telephone [facility] [address] [address] [address] Saud Dalton MD [address] [place] [phone] Social History Tobacco Use Types Packs/Day [...] COVID-19? No / Unsure 03/20/2020 6:06 AM SHRINKING MACHINE OPERATOR documented as of this encounter Miscellaneous Notes * Telephone Encounter - Mahnaz Alaniz - 04/09/2020 2:50 PM CST Patient no showed her appointment, left voice message to call the office to reschedule. Sent out a no show letter. NKING MACHINE OPERATOR documented in this encounter Plan of Treatment Not on file documented as of this encounter Visit Diagnoses Not on filedocumented in this encounter Additional Health Concerns Assessment Noted Time PHQ-9 Depression Total Score: 0 02/11/20 20 12:57 PM CDT documented as of this encounter Care Teams Industrial Sales Manager Relationship Specialty Start Date End Date Brian Robby [address] [place] [address] PCP - General Family Medicine 02/11/20 03/16/21 Scooter White DO [facility] [place] [address] PCP - General Internal Medicine 03/17/21 06/22/23 Yon Gutierrez MD [address] [facility] [address] [address] PCP - General Family Medicine 06/23/23 Manda Singh MD Obstetrics & Gynecology 02/11/20 Malik Cates MD #[address] [address] Consulting Physician Endocrinology 12/13/21 Ulices Marino MD #[address] [address] Consulting Physician Colon and Rectal Surgery 07/06/22 documented as of this encounter
[2024-06-19] MEDS: METOCLOPRAMIDE HCL INJ 10 MG/2 ML VIAL IV PUSH (18:56)
[2024-06-19] MEDS: diphenhydrAMINE HCl INJ 50 MG/ML VIAL 25 MG IV PUSH (18:57)
[2024-06-19] MEDS: ACETAMINOPHEN 500 MG TABLET 1000 MG PO (18:59)
[2024-06-19 19:11] VITALS: BP 119/75; PULSE 66; RESP 14; TEMP 37.1; O2SAT 100
[2024-06-19 20:18] VITALS: PULSE 80; RESP 19; TEMP 37.1; O2SAT 100
== END 2024-06-19 20:20 | disposition home or self-care (01) ==
PROVIDERS: Physician Assistant; Emergency Provider Emergency Medicine; PCP Advanced Practice Midwife
DX: O99.352 Diseases of the nervous system complicating pregnancy, second trimester (principal); G43.909 Migraine, unspecified, not intractable, without status migrainosus; O23.92 Unspecified genitourinary tract infection in pregnancy, second trimester; R82.71 Bacteriuria; Z3A.14 14 weeks gestation of pregnancy
CPT/HCPCS: 36415; 80053; 81001; 83735; 85025; 96361; 96365; 96375; 99284; A9270; J0696; J1200; J2765; J7030

== ENCOUNTER 2024-07-21 19:20 | Outpatient (CLI) | payer OTHER, SELFPAY ==
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
--- OUTSIDE RECORDS SUMMARY | 2024-07-21 19:36 | XMS_ITS | Clinical Summary ---
Author Organization [facility] Other Machine Address [address] [place] [address] Care Team Providers Care Pump House Technician Name Role Phone Scooter White DO Primary Care Provider Source Comments [facility],non-owned Affiliates and Associated Physician Practices is amultiple site organization consisting of ambulatory clinics and hospital sitesin [place], [place], [place] and [place]. This disclosure is being madepursuant to the Care Everywhere program and may not contain all information available regarding this patient. Last updated 18.[facility] Other Machine Allergies No known active allergies Medications * [...] 08/29/2011 6:38 AM CDT Plan of Treatment Upcoming Encounters Date Type Department Care Team (Late st Contact Info) Description 07/31/2024 1:00 PM CDT Appointment [facility] [address] [place] [address] 07/31/2024 2:30 PM CDT Appointment [facility] [address] [place] [address] Health Maintenance Due Date Last Done Comments PAP SMEAR 1993 HIV SCREENING 01/07/2008 HEPATITIS C SCREENING 01/02/2011 DTAP/TDAP/TD VACCINES (1 - Tdap) 01/07/2012 HEPATITIS B VACCINE (1 of 3 - 19+ 3-dose series) 01/07/2012 COVID-19 VACCINE (3 - 2023-2 5 season) 2024 08/06/2021, 07/16/2021 INFLUENZA VACCINE (#1) 2024 01/24/2020 DEPRESSION SCREENING 05/08/2024 ZOSTER VACCINE (1 of 2) 2043 HIB VACCINE Aged Out No longer eligi ble based on patient's age to complete this topic HPV VACCINE Aged Out No longer eligi ble based on patient's age to complete this topic MENINGOCOCCAL (Group B) VACCINE SHARED DECISION-MAKING Aged Out No longer eligible based on patient's age to complete this topic MENINGOCOCCAL GROUPS A/C/Y/W VACCINE Aged Out No longer eligible b ased on patient's age to complete this topic PNEUMOCOCCAL VACCINE Aged Out No long er eligible based on patient's age to complete this topic Care Teams Pump House Technician Relationship Specialty Start Date End Date Scooter White DO PCP - General 03/16/22
--- OUTSIDE RECORDS SUMMARY | 2024-07-21 19:36 | XMS_ITS | Clinical Summary ---
Author Organization [facility] Address [address] [facility], [address] [address] Phone Care Team Providers Care Transportation Equipment Painter Name Role Phone Manda Singh MD Unavailable [...] HCL PO Take by mouth. Activ e Active Problems Problem Noted Date Diagnosed Date [...] Recorded Total Score - Questions 1-9 0 100 10/2019 Sexually Active Control Partners Comments Not [...] 97.5 kg (215 lb) 04/19/2023 8:07 AM COAL CUTTING MACHINE OPERATOR Height 165.1 cm (5' 5 ) 04/19/2023 8:07 AM COAL CUTTING MACHINE OPERATOR Body Mass Index 35.78 04/19/2023 8:07 AM COAL CUTTING MACHINE OPERATOR Plan of Treatment Health Maintenance Due Date Last Done Comments Hepatitis C Virus (HCV) Screening 1993 Pap Smear 2014 Hepatitis B Immunization (2 of 3 - 19+ 3-dose series) 11/11/2019 10/14/2019 Cervical Cancer Screening (CCS) 2023 HPV/Cotest 2023 Influenza Immunization (#1) 01/07/202401/06, 01/24/2020, 01/24/2020 SARS-COV-2 Immunization ( season) 2024 08/06/2021, [...] this topic Medical Devices Implanted Type Area Leather Novelty Parts Cutter Device Identifier Shelf Expiration Date Model / Serial / Lot Tube Ventilation 5mm Carey Triune - [id number] Implanted:Qty: 1 on 11/05/2018 by Jordon Deng MD at [facility] IMPLANT Left: Ear [employer] 04/06/2020 510-122 / 510-122 / [id number] Description:Ear tubes came f rom the same package Tube Ventilation 5mm Carey Triune - [id number] Implanted:Qty: 1 on 11/05/2018 by Jordon Deng MD at [facility] IMPLANT Right: Ear [employer] 04/06/2020 510-122 / 510-122 / [id number] Description:Ear tubes came f rom the same package Insurance * Guarantor: [facility] Account Type Relation to Patient Date of Phone Billing Address Institutional Other [address] [place] [address] Care Teams Transportation Equipment Painter Relationship Specialty Start Date End Date Yon Gutierrez MD 2 [facility] [address] [place] [address] PCP - General Family Medicine 06/23/23 Manad Singh MD Obstetrics & Gynecology 02/11/20 Malik Cates MD [address] [phone] Consulting Physician Endocrinology 12/13/21 Ulices Mraino MD [address] [address] Consulting Physician Colon and Rectal Surgery 07/06/22
--- OUTSIDE RECORDS SUMMARY | 2024-07-21 19:36 | XMS_ITS | Patient Health Summary ---
Author Organization [facility] Address [address] [place] [address] Care Team Providers Care Burling And Joining Supervisor Name Role Phone Alis White DO Primary Care Provider [phone] Note from [facility],non-owned Affiliates and Associated Physician Practices is amultiple site organization consisting of ambulatory clinics and hospital sitesin [place], [place], [place] and [place]. This disclosure is being madepursuant to the Care Everywhere program and may not contain all information available regarding this patient. Last updated 18.[facility] Allergies No known active allergies Medications * [...] AM CDT) Case Report Flow Cytometry Case: [id number] Authorizing Provider: Cindi Herrera MD Collected: 11/05/2018 11:02 AM Pathologist: Alexa Weinberg MD Received: 11/06/2018 02:01 PM Specimen: Cervical Lymph Node , Left 5:33 PM CDT [facility] Final Diagnosis Lymph node, left cervical, flow cytometric immunophenotypic analysis: - No evidence of non-Hodgkin lymphoma. - See interpretation. 5:33 PM CDT [facility] Flow Cytometry Interpretation The [...] the flow cytometry specimen is reviewed for dairy quality assurance officer purposes. In summary, the left cervical lymph node specimen shows no evidence of a non-Hodgkin lymphoma. Correlation with additional clinical information and the concurrent biopsy specimen is required. KR 9 5:33 PM T [facility] Flow Cytometry Results Differential Result Comment Flow Cell Count /uL [id number] Total Viability % 86.0 Lymphocytes % 97 Dim CD45 Region % 0 Monocytes % 1 Granulocytes % 1 9 5:33 PM CDT [facility] Reason for test Enlarged lymph nodes 785.6 9 5:33 PM CDT [facility] Client Specimen ID # [id number] 9 5:33 PM [facility] Number of markers 16 were performed. A Flow CD3 A Flow CD10 A Flow CD20 A Flow CD23 A Flow CD2 A Flow CD4 A Flow CD1a A Flow CD5 A Flow CD19 A Flow CD34 A Flow CD45 A Flow CD7 A Flow CD8 A Flow CD30 A Gorham+CD19+ A Lambda+CD19+ 9 5:33 PM CDT [facility] Disclaimer Test performed at [facility], [address], [place], [address]. *The established laboratory minimum viability is 70%. [...] clinical testing. 9 5:33 PM CDT [facility] Embedded Images 9 5:33 PM CDT [facility] Pathology/Cytolo gy ENTIRE CERVICAL LYMPH NODE / Unknown 11/05/2018 11:02 AM CDT 11/06/2018 2:01 PM CDT Cindi Herrera MD LAB - PATHOLOGY/CYTO LOGY ORDERABLES [facility] [address] [place] [address]. [address] [phone] * IMAGING/RADIOLOGY/XRAY RESULTS ORDER (01/25/2012 6:57 AM [...] UA NEGATIVE NEGATIVE mg/dl [facility] Specific [place] UA <=1.005 1.003 - 1.030 [facility] Blood UA NEGATIVE NEGATIVE [facility] pH UA 6.5 5.0 - 9.0 [facility] Protein UA NEGATIVE NEGATIVE-TR SELVIN mg/dl [facility] Urobilinogen UA 0.2 0.2 - 1.0 Sherita Units/dl [facility] Nitrite UA NEGATIVE NEGATIVE [facility] Leukocyte UA NEGATIVE NEGATIVE [facility] Urine Culture Culture is not indicated per protocol. [facility] Urine specimen (specimen) URINE SPECIMEN OBTAINED BY CLEAN CATCH PROCEDURE / Unknown 08/29/2011 6:45 AM CDT 08/29/2011 6:55 AM CDT Chante Hung MD LAB - URINALYSIS ORD ERABLES [facility] [address] [place] [address] * GLUCOSE PROTEIN KETONE URINE - POINT [...] POINT OF CARE ORDERABLES Performing Organization Address City/[facility]/ZIP Co de Phone Number [place] [address] * SONOGRAM - COMPLETE (08/24/2011 9:18 AM CDT) Only the most recent of3 resultswithin the time period is included. Anatomical Region Laterality Modality Other 08/24/2011 9:18 AM CDT Narrative 08/24/2011 12:39 PM CDT [facility] PHONE: FAX: Pat. Name: HAIM YOUNG Pat. No: [id number] Study Date: 08/24/2011 9:18am , Age: 7 1995, 16 Pregnancies: 1 LMP: 02/08/2011 GA by LMP: 28w1d GA by 1st: 28w1d GA by US: 28w3d GA Selected: 28w1d (LMP) BETTY: 11/15/2011 Referring MD: RICARDO BARAHONA MD Administration Intern: Blanca Cheng RDMS Hist/Ind: Circumvallate Placenta Growth MEASUREMENTS & AGE GROWTH EVALUATION Measurement GA Range Srce %for GA Ratios ----- ---- ------- BPD 7.3 cm 29w1d (59u2b-72e3a) Hadl BPD 71% FL/BPD 0.72 (0.71 - 0.87) HC 26.6 cm 29w0d (69m7c-70q1y) Hadl HC 69% FL/AC 0.22 (0.20 - 0.24) AC 24.2 cm 28w3d (57u2u-58g6o) Hadl AC 57% HC/AC 1.10 (0.99 - 1.18) FL 5.3 cm 28w0d (54z6t-50i1v) Hadl FL 48% CI 0.76 (0.70 - 0.86) HL 4.6 cm 27w2d (50f4n-87v3b) Eder MATA 36% GA for sonogram 28w3d (94z0w-06d9v) Weight Estimate: based on (HL,BPD,HC,AC,FL) Avg Weight: 1220 gm (0122-0780) Hadlo : 2lbs, 11oz Normal: 1166 gm [...] <Electronic Signature> 08/24/2011 12:38pm Ricardo Barahona MD [facility] ORDERABLES * LAB RESULTS ORDER (12/17/2009 [...] review on December 14. It is from [facility] in [place], [place]. Exam consists of 66 images. I [...] review on December 14. It is from [facility] in [place], [place]. Exam consists of 66 images. I [...] delayed phase images obtained on 12/13/2009 at [place], [place] are presented for review. The lung [...] delayed phase images obtained on 12/13/2009 at [place], [place] are presented for review. The lung [...] period is included. Comment Manual Diff Done [facility] Neutrophils % Manual 76(H) 24 - 66 % [facility] Lymphocytes % Manual 20(L) 22 - 61 % [facility] Monocytes % Manual 4 3 - 15 % [facility] RBC Morphology Normal [facility] BLOOD SPECIMEN / Unknown 12/14/2009 4:20 AM CDT 12/14/2009 5:05 AM CDT Roque Marino MD LAB - HEMATOLOGY ORD ERABLES Performing Organization Address City/State/[facility] Co de Phone Number [facility] [address] [place] [address] * (ABNORMAL) CBC W AUTO DIFFERENTIAL (12/14/2009 4:20 AM CDT) Only the most recent of2 resultswithin the time period is included. WBC 9.53 4.5 - 14.5 K/cumm [facility] RBC 3.86(L) 4.10 - 5.10 mill/cumm [facility] Hemoglobin 11.4(L) 12.0 - 16.0 gm/dl [facility] Hematocrit 32.8(L) 36.0 - 47.0 % [facility] MCV 85.0 78.0 - 102.0 cu microns [facility] MCH 29.5 25.0 - 35.0 uug [facility] MCHC 34.8 31.0 - 37.0 % [facility] RDW 11.7 % [facility] MPV 9.7 fl [facility] Platelet Count 182 100 - 400 K/cumm [facility] Comment Manual Diff Done [facility] BLOOD SPECIMEN / Unknown 12/14/2009 4:20 AM CDT 12/14/2009 4:40 AM CDT Michaellerichy Holloway DO LAB - HEMATOLOGY OR DERABLES Performing Organization Address City/State/[facility] Co in Phone Number [facility] [address] [place] [address] * GROSS + MICRO EXAM (12/13/2009 11:43 PM CDT) [facility] Clinical History [facility] Comment: The patient is a 14-year-old girl with abdominal pain who underwent appendectomy and diagnostic laparotomy. The operative findings were a hemorrhagic ovarian cyst and a normal appendix. Gross Description [facility] Comment: Submitted fixed in formalin in [...] diameter. The specimen is serially sectioned, and sales representative business courses sections are submitted in cassette A1. (CT/nab) Microscopic Examination [facility] Comment: 1 H+E. Sections of the vermiform appendix show mild expansion of the lamina propria by mixed inflammatory cells, numerous secondary lymphoid follicles, neutrophilic infiltration of a few crypts, and a rare crypt abscess. No granulomata are present. There is no significant architectural distortion. There is no transmural inflammation. Ganglia are present in submucosal and myenteric plexuses. (DSB) Diagnosis [facility] Comment: DIAGNOSIS: VERMIFORM APPENDIX, EXCISION: - ACUTE INFLAMMATION, MILD. - LYMPHOID HYPERPLASIA. This case has been personally reviewed and interpreted by the attending (teaching) pathologist. Pipe Stress Engineer ASHWINI AGARWAL, [facility] Resident in Pathology Margarito Helton M.D. [facility] Pathologist Alis Brennan M.D. [facility] Electronically Signed By ALIS BRENNAN M.D. [facility] ENTIRE APPENDIX / Unknown 12/13/2009 11:43 PM CDT 12/14/2009 7:48 AM CDT Roque Marino MD LAB - PATHOLOGY/CYTO LOGY ORDERABLES Performing Organization Address [facility] Co de Phone Number [facility] [address] [place] [address] * (ABNORMAL) URINALYSIS ROUTINE AUTO (12/13/2009 10:45 PM CDT) Only the most recent of2 resultswithin the time period is included. Color UA YELLOW [facility] Character UA CLEAR [facility] Specific [place] UA 1.025 1.003 - 1.030 [facility] pH UA 6.0 5.0 - 8.0 [facility] Protein UA NEGATIVE Negative [facility] Glucose UA NEGATIVE Negative gm/dl [facility] Ketone UA 3+(AA) Negative [facility] Blood UA NEGATIVE Negative [facility] Bilirubin UA NEGATIVE Negative [facility] Reducing Substances UA NEGATIVE Negative % [facility] WBC UA 0-2 /HPF [facility] RBC UA rare /HPF [facility] Epithelial Cell UA rare /HPF [facility] Bacteria UA trace [facility] Leukocyte UA NEGATIVE [facility] Nitrite UA NEGATIVE [facility] Urobilinogen UA 0.2 <=1.0 EU/dl [facility] URINE SPECIMEN COLLECTION, CATHETERIZED / Unknown 12/13/2009 10:45 PM CDT 12/13/2009 11:03 PM CDT Roque Marino MD LAB - URINALYSIS ORD ERABLES Performing Organization Address City/[facility]/ZIP Co de Phone Number [facility] [address] [place] [address] * CULTURE URINE (12/13/2009 10:45 PM CDT) Only the most recent of2 resultswithin the time period is included. Report [facility] Comment: Final - GRAM STAIN No organisms seen CULTURE NO GROWTH (<1000 CFU/ml) URINE SPECIMEN COLLECTION, CATHETERIZED / Unknown 12/13/2009 10:45 PM CDT 12/13/2009 11:03 PM CDT Roque Marino MD LAB - MICROBIOLOGY O RDERABLES [facility] [address] [place] [address] Care Teams Burling And Joining Supervisor Relationship Specialty Start Date End Date Alis White DO PCP - General 03/16/22
--- OUTSIDE RECORDS SUMMARY | 2024-07-21 19:36 | XMS_ITS | Encounter Summary ---
Author Organization [facility] Address [address] [place] [address] Care Team Providers Care Bracer Name Role Phone Cindy Scooter Hui DO Primary Care Provider Encounter Details Date Type Department Care Team (Late Contact Info) Description 11/06/2018 Lab Requisition [facility] Care Pathology Lab [address] [place] [address] Cindi Herrera MD [address] [place] [address] Enlarged lymph nodes Social History Tobacco Use [...] as of this encounter Plan of Treatment Upcoming Encounters Date Type Department Care Team (Late Contact Info) Description 07/31/2024 1:00 PM CDT Appointment [facility] [address] [place] [address] 07/31/2024 2:30 PM CDT Appointment [facility] [address] [place] [address] documented as of this encounter Procedures Procedure Name Priority Date/Time Associated Diagnosis Comments FLOW CYTOMETRY TISSUE PANEL Routine 11/05/2018 11:02 AM CDT Enlarged lymph nodes documented in this encounter Results * FLOW CYTOMETRY TISSUE PANEL (11/05/2018 11:02 AM CDT) Case Report Flow Cytometry Case: [id number] Authorizing Provider: Cindi Herrera MD Collected: 11/05/2018 11:02 AM Pathologist: Alexa Weinberg MD Received: 11/06/2018 02:01 PM Specimen: Cervical Lymph Node , Left 5:33 PM CDT [facility] Final Diagnosis Lymph node, left cervical, flow cytometric immunophenotypic analysis: - No evidence of non-Hodgkin lymphoma. - See interpretation. 5:33 PM CDT [facility] Flow Cytometry Interpretation The left [...] flow cytometry specimen is reviewed for quality compliance manager purposes. In summary, the left cervical lymph node specimen shows no evidence of a non-Hodgkin lymphoma. Correlation with additional clinical information and the concurrent biopsy specimen is required. KR 9 5:33 PM CDT [facility] Flow Cytometry Results Differential Result Comment Flow Cell Count /uL [id number] Total Viability % 86.0 Lymphocytes % 97 Dim CD45 Region % 0 Monocytes % 1 Granulocytes % 1 9 5:33 PM CDT [facility] Reason for test Enlarged lymph nodes 785.6 9 5:33 PM CDT [facility] Client Specimen ID # [id number] 9 5:33 PM CDT [facility] Number of markers 16 were performed. A Flow CD3 A Flow CD10 A Flow CD20 A Flow CD23 A Flow CD2 A Flow CD4 A Flow CD1a A Flow CD5 A Flow CD19 A Flow CD34 A Flow CD45 A Flow CD7 A Flow CD8 A Flow CD30 A Goulds+CD19+ A Lambda+CD19+ 9 5:33 PM T [facility] Disclaimer Test performed at [facility], [address] [place], [place], [address]. *The established laboratory minimum viability is 70%. [...] high complexity clinical testing. 9 5:33 PM T [facility] Embedded Images 9 5:33 PM [facility] Pathology/Cytolo gy ENTIRE CERVICAL LYMPH NODE / Unknown 11/05/2018 11:02 AM CDT 11/06/2018 2:01 PM CDT Cindi Herrera MD LAB - PATHOLOGY/CYTO LOGY ORDERABLES [facility] [address] [place] [address]. [address] [phone] documented in this encounter Visit Diagnoses Diagnosis Enlarged lymph nodes Enlargement of lymph nodes documented in this encounter Care Teams Bracer Relationship Specialty Start Date End Date Scooter White DO PCP - General 03/16/22 documented as of this encounter
--- OUTSIDE RECORDS SUMMARY | 2024-07-21 19:36 | XMS_ITS | Referral Summary ---
Author Organization [facility] Address [address] [place] [address] Care Team Providers Care Physician Assistant Surgery Name Role Phone Scooter White DO Primary Care Provider [phone] Source Comments [facility],non-owned Affiliates and Associated Physician Practices is amultiple site organization consisting of ambulatory clinics and hospital sitesin [place], [place], [place] and [place]. This disclosure is being madepursuant to the Care Everywhere program and may not contain all information available regarding this patient. Last updated 18.[facility] Allergies No known active allergies Medications * [...] Info) Description 07/31/2024 1:00 PM CDT Appointment [facility] [address] [place] [address] 07/31/2024 2:30 PM CDT Appointment [facility] [address] [place] [address] Care Teams Physician Assistant Surgery Relationship Specialty Start Date End Date Scooter White DO PCP - General 03/16/22
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
--- OUTSIDE RECORDS SUMMARY | 2024-07-21 19:37 | XMS_ITS | Encounter Summary ---
Author Organization [facility] Address [address] [place] [address] Phone Care Team Providers Care Web Content Editor Name Role Phone Manda Singh MD Unavailable [phone] Robby Torres Primary Care Provider [phone] Scooter White DO Primary Care Provider Malik Cates MD Unavailable Ulices Marino MD Unavailable Yon Gutierrez MD Primary Care Provider Encounter Details Date Type Department Care Team (Late st Contact Info) Description 03/09/2020 Transcribe Orders [facility] Preop/Pacu II [address] [place] [id number] Walter Blake MD [address] [place] [address] Preop testing (Primary Dx) Social History Tobacco [...] COVID-19? Unable to assess 03/10/2020 1:32 PM SLIP COVER OPERATOR documented as of this encounter Plan of Treatment Not on file documented as of this encounter Visit Diagnoses Diagnosis Preop testing- Primary Preoperative examination, unspecified documented in this encounter Additional Health Concerns Infection Onset Date Last Indicated Resolved Time COVID - 19 03/10/2020 03/10/2020 03/16/2020 11:4 0 AM SLIP COVER OPERATOR Assessment Noted Time PHQ-9 Depression Total Score: 0 02/11/20 12:57 PM CDT documented as of this encounter Care Teams Web Content Editor Relationship Specialty Start Date End Date Robby Torres [address] [place] [address] PCP - General Family Medicine 02/11/20 03/16/21 Scooter White DO [address] [facility] [place] [address] PCP - General Internal Medicine 03/17/21 06/22/23 Yon Gutierrez MD 2 [facility] [address] [place] [address] PCP - General Family Medicine 06/23/23 Manda Singh MD Obstetrics & Gynecology 02/11/20 Malik Cates MD #2 [facility] [address] [place] [address] Consulting Physician Endocrinology 12/13/21 Ulices Marino MD [address] [place] [address] Consulting Physician Colon and Rectal Surgery 07/06/22 documented as of this encounter
--- OUTSIDE RECORDS SUMMARY | 2024-07-21 19:37 | XMS_ITS | Encounter Summary ---
Author Organization [facility] Address [address] [place] [address] Phone Care Team Providers Care Flight Physician Name Role Phone Manda Singh MD Unavailable [phone] Robby Torres Primary Care Provider [phone] Scooter White DO Primary Care Provider Malik Cates MD Unavailable Ulices Marino MD Unavailable Yon Gutierrez MD Primary Care Provider Encounter Details Date Type Department Care Team (Late st Contact Info) Description 04/09/2020 Telephone [facility] [address] [address] [address] Saud Dalton MD [address] [place] [id number] Social History Tobacco Use Types Packs/Day [...] COVID-19? No / Unsure 03/20/2020 6:06 AM CATTLE DIPPER documented as of this encounter Miscellaneous Notes * Telephone Encounter - Mahnaz Alaniz - 04/09/2020 2:50 PM CST Patient no showed her appointment, left voice message to call the office to reschedule. Sent out a no show letter. LE DIPPER documented in this encounter Plan of Treatment Not on file documented as of this encounter Visit Diagnoses Not on filedocumented in this encounter Additional Health Concerns Assessment Noted Time PHQ-9 Depression Total Score: 0 02/11/20 20 12:57 PM CDT documented as of this encounter Care Teams Flight Physician Relationship Specialty Start Date End Date Brian Robby [address] [place] [address] PCP - General Family Medicine 02/11/20 03/16/21 Scooter White DO [facility] [facility] [place] [place] [address] PCP - General Internal Medicine 03/17/21 06/22/23 Yon Gutierrez MD [address] [facility] [address] [address] PCP - General Family Medicine 06/23/23 Manda Singh MD Obstetrics & Gynecology 02/11/20 Malik Cates MD #[address] [address] Consulting Physician Endocrinology 12/13/21 Ulices Marino MD #[address] [address] Consulting Physician Colon and Rectal Surgery 07/06/22 documented as of this encounter
--- OUTSIDE RECORDS SUMMARY | 2024-07-21 19:37 | XMS_ITS | Continuity of Care Document ---
Author Organization [facility] Address [address] [facility] [address] [place] [address] Phone Care Team Providers Care Stage Director Name Role Phone Carol OD OD, Georgina [...] - Active Procedures Procedure Date OFFICE/OUTPATIENT VISIT, [facility] Comp cont lens eval No Charge Visit N/C Glasses Check Advance Directives Directive Yes / No Effective Date File Name No Information Encounters Encounter Description Practice Location Reason(s) For Visit Diagnoses Date Provider Providers Copied on Encounter [facility], [address], [place], [place], [id number], [place] tel:[phone] OPH CONSULT KENTRELL LOPEZ No Information Trell Medina OD Georgina. [address] [facility], [place], [place], [id number], [place]. tel:[phone] Referring Provider: Georgina Medina OD, [address] [facility] [address], [place], [place], [address]. tel:[phone] OFFICE/OUTPA TIENT VISIT, [facility], [address] [place] [address], [id number], tel:[phone] OPH CONSULT KENTRELL OLPEZ blurry vision (chief complaint) dry eye (chief complaint) Krystin's thyroiditisMyo roger, bilateralTear film insufficiency of bilateral lacrimal glandsOther vitreous opacities, bilateralCorne al neovasculariza tion of both eyes 2 Derheimer OD Georgina. [address], [address] [place] [address], [id number], [place]. tel:[phone] Referring Provider: Scooter White, [address], [place], [address]. tel:[phone] [facility], [address] [place] [address], [id number], tel:[phone] [facility] Services KENTRELL LOPEZ No Information 6 Derheimer OD Georgina. [address], [address] [place] [address], [id number], [place]. tel:[phone] Referring Provider: Georgina Medina OD, [address], [place], [place], [id number]. tel:[phone] [facility], [address] [place] [address], [id number], tel:[phone] OPH CONSULT KENTRELL LOPEZ blurry vision (chief complaint) Myopia, bilateral 6 Derheimer OD Georgina. [address], [place], [place], [address], [place]. tel:[phone] Referring Provider: Georgina Medina OD, [address], [place], [place], [id number]. tel:[phone] [facility], [address] [place] [address], [id number], tel:[phone] OPH CONSULT KENTRELL LOPEZ No Information 1 Beth Cohenl. [address], [place], [place], [address], [place]. tel:[phone] Family History Family Member Type Diagnosis Age At Onset Problem No family history of Diabete s mellitus Problem No family history of Macular degeneration Problem No family history of Hyperte nsion Problem No family history of Glaucom a Payers Payer name Insurance type Covered democrat ID Authoriza tion(s) No Information Social History [...]
--- OUTSIDE RECORDS SUMMARY | 2024-07-21 19:37 | XMS_ITS | Continuity of Care Document ---
Author Organization [facility] Address [address] [facility] [place] [address] Phone Care Team Providers Care Reeling Machine Setup Operator Name Role Phone Robby Torres MD Unavailable Unavailable Allergies, Adverse Reactions, Alerts Substance Reaction Status Criticality No Known Allergies Active No Inform ation Medications Medication Instructions Dosage Effective Dates (start - stop) Status Comments Xanax 0.5 mg tablet take 1 tablet by oral route every 4 hours as needed 0.5 MG - Active PRn for panic attacks, avoid driving or operate machines buspirone 10 mg tablet take 1 tablet by oral route 2 times every day 10 MG - Active avoid driving or operate machines Effexor XR 150 mg capsule,extended release take 1 capsule by oral route every day 150 MG - Active Synthroid 50 mcg tablet take 1 tablet [...] Diagnoses Date Provider Providers Copied on Encounter [facility], [address] [facility] [place], [id number], [place] tel:[phone] [facility] No Information 1 Brian Bustamante. [address], [place], [place], [address] , [place]. tel:[phone] [facility], [address], [place], [place], [address], [place] tel:[phone] [facility] No Information 0 Brian Bustamante. [address], [place], [place], [address] , [place]. tel:[phone] OFFICE/OUTPA TIENT VISIT, [facility], [address], [place], [place], [address], [place] tel:[phone] [facility] anxiety1 (chief complaint) Generalized Anxiety DisorderHypothyroid ism 0 Brian Bustamante. [address], [place], [place], [address] , [place]. tel:[phone] Referring Provider: Robby Torres [address], [place], [place], [address]. tel:[phone] OFFICE/OUTPA TIENT VISIT, [facility], [address], [place], [place], [address], [place] tel:[phone] [facility] anxiety1 (chief complaint) Generalized Anxiety DisorderGoiter 0 Brian Bustamante. [address], [place], [place], [address] , [place]. tel:[phone] Referring Provider: Robby Torres [address], [place], [place], [address]. tel:[phone] OFFICE/OUTPA TIENT VISIT, [facility], [address], [place], [place], [address], [place] tel:[phone] [facility] thyroid nodule1 (chief complaint) anxiety1 (chief complaint) GoiterGeneralized Anxiety Disorder 0 Brian Menendez [address], [place], [place], [address] , [place]. tel:[phone] Referring Provider: Gissel Banks [address], [place], [place], [address]. tel:[phone] OFFICE/OUTPA TIENT VISIT, [facility], [address], [place], [place], [address], [place] tel:[phone] [facility] anxiety1 (chief complaint) iron1 (chief complaint) thyroid1 (chief complaint) Disorder of iron metabolism, unspecifiedGoiterGe neralized Anxiety Disorder Lonnie-0 0 Brian Bustamante. [address], [place], [place], [address] , [place]. [phone] Referring Provider: Gissel Banks [address], [place], [place], [address]. tel:[phone] OFFICE/OUTPA TIENT VISIT, [facility], [address], [place], [place], [address], [place] tel:[phone] [facility] ankle pain1 (chief complaint) fatigue1 (chief complaint) thyroid1 (chief complaint) anemia1 (chief complaint) Pain in right ankleFatigueAnemiaG oiter 0 Brian Bustamante. [address], [place], [place], [address] , [place]. tel:[phone] Referring Provider: Gissel Banks [address], [place], [place], [address]. tel:[phone] OFFICE/OUTPA TIENT VISIT, [facility], [address], [place], [place], [address], [place] tel:[phone] [facility] rash1 (chief complaint) Allergic contact dermatitis due to plants, except food Aug- 0 Brian Bustamante. [address], [place], [place], [address] , [place]. [phone] Referring Provider: Gissel Banks [address], [place], [place], [address]. tel:[phone] OFFICE/OUTPA TIENT VISIT, [facility], [address], [place], [place], [address], tel:[phone] [facility] Medicine thyroid1 (chief complaint) ferritin1 (chief complaint) IgA (chief complaint) fatigue1 (chief complaint) GoiterDisorder of iron metabolism, unspecifiedVitamin D deficiency, unspecifiedRaised level of immunoglobulinAnemi aH. pylori as the cause of diseases classified elsewhereFatigue 0 Brian Bustamante. [address] [facility] [place], [address] , . tel:[phone] Referring Provider: Gissel Banks [place], [address]. tel:[phone] PREV VISIT, NEW, AGE 18-39 [facility], [address] [place] [address] [employer] [place], [address], tel:[phone] [facility] PHysical (chief complaint) Encntr for general adult medical exam w/o abnormal findings 0 Brian Bustamante. [address], [facility] [address], [place], [place], [id number] , [place]. tel:[phone] Referring Provider: Robby Torres [address] [place] [address], [id number]. tel:[phone] Family History Family Member Type Diagnosis Age At Onset Brother Problem Alive and well Father Problem (finding) Alive and well Mother Problem (finding) Thyroid disorder Payers Payer name Insurance type Covered libertarian [...] Referral Referred To: Jean Carlos BolañosJoe silva [address] [facility]
[address] [place], [place] [id number] Ordered: Referrals: Allopathic & Osteopathic Physicians : Internal Medicine : Endocrinology, Diabetes & Metabolism. RignJoe Vincent. Evaluate and treat ordered History Of [...] any dysphagia ankle pain1 Pt was at [place] [employer] and she stepped on gravel [...] or swelling . 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
--- OUTSIDE RECORDS SUMMARY | 2024-07-21 19:37 | XMS_ITS | Encounter Summary ---
Author Organization [facility] Address [address] [place] [address] Phone Care Team Providers Care Chemical Plant Worker Name Role Phone Manda Singh MD Unavailable [phone] Scooter White DO Primary Care Provider Malik Cates MD Unavailable Ulices Marino MD Unavailable Yon Gutierrez MD Primary Care Provider Encounter Details Date Type Department Care Team (Late st Contact Info) Description 07/26/2021 Lab Requisition [facility] [address] [place] [address] Edita Garza, PRINCIPAL MECHANICAL ENGINEER, [employer] [address] [place] [address] Encounter for pre-employment examination Social History Tobacco [...] >=1.1 AI 07/26/2021 10:00 PM CDT [facility] Blood No Phlebotomy Charged / Unknown 07/26/2021 9:00 AM CDT 07/26/2021 2:15 PM CDT Narrative [facility] - 07/26/2021 10:00 PM CDT <= 0.8 Negative. No detectable VZV IgG antibody. 0.9 - 1.0 Equivocal >=1.1 Positive Antibody testing was performed by multiplex flow immunoassay on the BioPlex platform. Edita L Behrends PRINCIPAL MECHANICAL ENGINEER, [employer] IMMUNOLOGY ORDERABL ES Final Result Performing Organization Address [facility] de Phone Number [facility] [address] [place] [address], [place] * (ABNORMAL) RUBEOLA (MEASLES) IGG (07/26/2021 9:00 AM CDT) MEASLES AB IGG 0.7(L) >=1.1 AI 07/26/2021 10:00 PM CDT [facility] Blood No Phlebotomy Charged / Unknown 07/26/2021 9:00 AM CDT 07/26/2021 2:15 PM CDT Narrative [facility] - 07/26/2021 10:00 PM CDT <= 0.8 Negative. No detectable Measles IgG antibody. 0.9 - 1.0 Equivocal >=1.1 Positive Antibody testing was performed by multiplex flow immunoassay on the BioPlex platform. Edita L Behrends PRINCIPAL MECHANICAL ENGINEER, [employer] IMMUNOLOGY ORDERABL ES Final Result Performing Organization Address [facility] de Phone Number [facility] [address] [place] [address], [place] * RUBELLA IMMUNITY IGG (07/26/2021 9:00 AM CDT) RUBELLA IMMUNITY Immune Immune, Invalid 07/26/2021 10:00 PM CDT [facility] Blood No Phlebotomy Charged / Unknown 07/26/2021 9:00 AM CDT 07/26/2021 2:15 PM CDT Narrative [facility] - 07/26/2021 10:00 PM CDT Antibody testing was performed by multiplex flow immunoassay on the BioPlex platform. us Edita L Behrends PRINCIPAL MECHANICAL ENGINEER, [employer] CHEMISTRY ORDERABLE S Final Result Performing Organization Address City/[facility]/ZIP Co de Phone Number [facility] [address] [place] [address], [place] * MUMPS IGG (07/26/2021 9:00 AM CDT) Mumps Ab IgG 1.2 >=1.1 AI 07/26/2021 10:00 PM CDT [facility] Blood No Phlebotomy Charged / Unknown 07/26/2021 9:00 AM CDT 07/26/2021 2:15 PM CDT Narrative [facility] - 07/26/2021 10:00 PM CDT <= 0.8 Negative. No detectable Mumps IgG antibody. 0.9 - 1.0 Equivocal >=1.1 Positive Antibody testing was performed by multiplex flow immunoassay on the PaeDaelex platform. Edita Finnds PRINCIPAL MECHANICAL ENGINEER, [employer] IMMUNOLOGY ORDERABL ES Final Result Performing Organization Address [facility] Co de Phone Number [facility] [address] [place] [address], [place] * QUANTIFERON-TB GOLD PLUS (07/26/2021 9:00 AM CDT) NIL CONTROL 0.04 <8.01 IU/mL 07/28/2021 1:01 PM CDT [facility] TB ANTIGEN 1 0.00 <0.35 IU/mL 07/28/2021 1:01 PM CDT [facility] TB ANTIGEN 2 0.00 <0.35 IU/mL 07/28/2021 1:01 PM CDT [facility] MITOGEN CONTROL 9.64 >0.49 IU/mL 07/29/19 1:01 PM CDT [facility] INTEPRETATION TB NEGATIVE NEGATIVE, NEGATIVE (TB antigen response less than 25% of internal negative control value) 07/28/2021 1:01 PM CDT [facility] Comment:No immune response t o Mycobacterium tuberculosis antigens was noted. M. tuberculosis infection unlikely. Blood No Phlebotomy Charged / Unknown 07/26/2021 9:00 AM CDT 07/26/2021 2:15 PM CDT Narrative [facility] - 07/28/2021 1:01 PM CDT A POSITIVE [...] [facility] [address] [place] [address], [place] * HEPATITIS B SURFACE ANTIBODY (HBSAB) (07/26/2021 9:00 AM CDT) HEPATITIS B SURFACE ANTIBODY 8.33 mIU/mL [facility] ARCH [id number] B 07/27/2021 12:02 AM CDT [facility] Comment: Grayzone Range: >=8.00 to <=12.00 The immune status of the individual should be further assessed considering other factors, such as clinical status, follow-up testing, associated risk factors and the use of additional diagnostic information. Blood No Phlebotomy Charged / Unknown 07/26/2021 9:00 AM CDT 07/26/2021 2:15 PM CDT us Edita Garza PRINCIPAL MECHANICAL ENGINEER, [employer] CHEMISTRY ORDERABLE S Final Result Performing Organization Address City/State/[facility] Co de Phone Number [facility] [address] [place] [address], [place] documented in this encounter Visit Diagnoses Diagnosis Encounter for pre-employment examination Health examination of defined subpopulation documented in this encounter Additional Health Concerns Assessment Noted Time PHQ-9 Depression Total Score: 0 02/11/20 12:57 PM CDT documented as of this encounter Care Teams Chemical Plant Worker Relationship Specialty Start Date End Date Scooter White DO [facility] [place] [address] PCP - General Internal Medicine 03/17/21 06/22/23 Yon Gutierrez MD [address] [place] [address] [address] [place] [address] [place] [address] PCP - General Family Medicine 06/23/23 Manda Singh MD Obstetrics & Gynecology 02/11/20 Malik Cates MD [address] [address] Consulting Physician Endocrinology 12/13/21 Ulices Marino MD [address] [address] Consulting Physician Colon and Rectal Surgery 07/06/22 documented as of this encounter
--- OUTSIDE RECORDS SUMMARY | 2024-07-21 19:37 | XMS_ITS | Data Portability ---
Author Organization [facility] TJCathy Eldridge Address [address] [place] [address] Care Team Providers Care Lehr Tender Name Role Phone ZO MORA OTHER Assessment [...] Modified Time Details Appointments None recorded. Lab CBC w/ auto diff 2018 019 [facility], [address] [place] [address], [place], [address], 9 06:40:13 ferritin, serum or plasma 2018 019 [facility], [address] [place] [address], [place], [address], 9 06:40:14 iron + total iron-bindin g capacity (TIBC), serum 2018 019 [facility], [address] [place] [address], [place], [address], 9 06:40:14 HIV 1+2 AB + HIV 1 p24 Ag, qualitative immunoassay , serum 2018 019 [facility], [address] [facility] [address], [place], [address], 9 07:12:01 HBsAg (hepatitis B surface Ag), EIA, serum 2018 019 [facility], [address], [place], [address], 9 07:12:02 hepatitis C Ab, signal-to-c utoff, serum or plasma 2018 019 [facility], [address], [place], [address], 9 07:12:01 RPR (rapid plasma reagin), serum 2018 019 [facility], [address] [facility], [address], [place], [address], 9 07:12:00 hsv (1+2) igg Ab, serum 2018 019 [facility], [address] [facility], [facility], [place], [address], 9 07:12:00 CBC w/ auto diff 2018 019 [facility], [address] [facility], [address], [place], [address], 9 07:11:59 Referral general surgeon referral 2018 019 LANA Moralez MD, [address] [facility] , [facility] [address], [place], [address], 9 12:38:24 ENT referral - Saw Dr. Mora --- need a second opinion. 2018 019 [facility], [address] [facility], [address], [place], [address], 9 17:55:21 Procedures None recorded. Surgeries None recorded. Imaging None recorded. Medication Orders ferrous sulfate 325 mg (65 mg iron) tablet [address] [facility] [place], [address], 9 11:26:58 Mucinex 600 mg tablet, extended release [address] [facility], [address] [place], [address], 9 00:24:12 ferrous sulfate 325 mg (65 mg iron) tablet [address] [facility], [address] [place], [address], 9 12:48:40 Tessalon Perles 100 mg capsule [address] [facility], [address] [place], [address], 9 00:24:06 Patient TargetsNo targets recorded. Patient Instructions Encounter Date Encounter Id Patient Instructions Last Modified By Organization Details Last Modified Time 07/27/2018 [id number] upper respirator y infection (cold): care instructions Not available 07/27/2018 13:23:41 08/29/2018 [id number] hemorrhoids: car e instructions Not available 08/29/2018 16:13:52 anemia: care instructions Not available 08/29/2018 18:08:26 09/05/2018 [id number] Acute Sinusitis: Care Instructions Not available 09/05/2018 12:48:40 11/13/2018 [id number] hemorrhoids: car e instructions Not available 11/27/2018 00:17:15 02/13/2019 [id number] dizziness: care instructions Not available 02/13/2019 11:26:58 electrocardiogra m interpretation* ATHENAFAX Not available 03/13/2019 15:05:29 Reason for Referral ENT Referral for Cervical ly mphadenopathy Saw Dr. Mora --- need a second opinion. Referring Physician: Lucero Sandoval, Family Medicine, Encounter Date: 07/27/2018 General Surgeon Referral for Hemorrhoids Referring Physician: Ricardo Ramirez, ANALYTICAL STATISTICIAN, Encounter Date: 08/29/2018 Results Created Date Observation Date Name Description Value Unit Range Abnormal Flag Note LastModifiedBy Organization Detail LastModifiedTime 07/04/19 19 07/05/2018 TSH + free T4, serum TSH 3.080 uIU/m L 0.450- 4.500 Not Available [facility] ([facility]) [address] [place], [address], 07/05/2018 09:23:03 07/04/19 19 07/05/2018 TSH + free T4, serum T4,free(dire ct) 1.06 NG/dL 0.82-1 .77 Not Available [facility] ([facility]) [address] [place], [address], 07/05/2018 09:23:03 07/04/19 19 07/04/2018 CBC w/ auto diff WBC 7.2 x10e3 /uL 3.4-10 .8 Not Available [facility] ([facility]) [address] [place], [address], 07/05/2018 09:23:03 07/04/19 19 07/04/2018 CBC w/ auto diff RBC 4.87 x10e6 /uL 3.77-5 .28 Not Available [facility] ([facility]) [address] [place], [address], 07/05/2018 09:23:03 07/04/19 19 07/04/2018 CBC w/ auto diff hemoglobin 11.5 g/dL 11.1-1 5.9 Not Available [facility] ([facility]) [address] [place], [address], 07/05/2018 09:23:03 07/04/19 19 07/04/2018 CBC w/ auto diff hematocrit 36.2 % 34.0-4 6.6 Not Available [facility] ([facility]) [address] [facility], [place], [address], 07/05/2018 09:23:03 07/04/19 19 07/04/2018 CBC w/ auto diff MCV 74 fL 79-97 below low normal Not Available [facility] ([facility]) [address] [facility], [place], [address], 07/05/2018 09:23:03 07/04/19 19 07/04/2018 CBC w/ auto diff MCH 23.6 pg 26.6-3 3.0 below low normal Not Available [facility] ([facility]) [address] [facility], [place], [address], 07/05/2018 09:23:03 07/04/19 19 07/04/2018 CBC w/ auto diff MCHC 31.8 g/dL 31.5-3 5.7 Not Available [facility] ([facility]) [address] [facility], [place], [address], 07/05/2018 09:23:03 07/04/19 19 07/04/2018 CBC w/ auto diff RDW 16.0 % 12.3-1 5.4 above high normal Not Available [facility] ([facility]) [address] [facility], [place], [address], 07/05/2018 09:23:03 07/04/19 19 07/04/2018 CBC w/ auto diff platelets 480 x10e3 /uL 150-37 9 above high normal Not Available [facility] ([facility]) [address] [facility], [place], [address], 07/05/2018 09:23:03 07/04/19 19 07/04/2018 CBC w/ auto diff neutrophils 64 % not estab. Not Available [facility] ([facility]) [address] [facility], [place], [address], 07/05/2018 09:23:03 07/04/19 19 07/04/2018 CBC w/ auto diff lymphs 28 % not estab. Not Available [facility] ([facility]) [address] [place], [address], 07/05/2018 09:23:03 07/04/19 19 07/04/2018 CBC w/ auto diff monocytes 6 % not estab. Not Available [facility] ([facility]) [address] [place], [address], 07/05/2018 09:23:03 07/04/19 19 07/04/2018 CBC w/ auto diff eos 1 % not estab. Not Available [facility] ([facility]) [address] [place], [address], 07/05/2018 09:23:03 07/04/19 19 07/04/2018 CBC w/ auto diff basos 1 % not estab. Not Available [facility] ([facility]) [address] [facility], [place], [address], 07/05/2018 09:23:03 07/04/1907/04/2018 CBC w/ auto diff immature cells PACKAGING INSPECTOR Not Available [facility] ([facility]) [address] [place], [address], 07/05/2018 09:23:03 07/04/19 19 07/04/2018 CBC w/ auto diff neutrophils (absolute) 4.6 x10e3 /uL 1.4-7. 0 Not Available [facility] ([facility]) [address] [place], [address], 07/05/2018 09:23:03 07/04/19 19 07/04/2018 CBC w/ auto diff lymphs (absolute) 2.0 x10e3 /uL 0.7-3. 1 Not Available [facility] ([facility]) [address] [place], [address], 07/05/2018 09:23:03 07/04/19 19 07/04/2018 CBC w/ auto diff monocytes(ab solute) 0.5 x10e3 /uL 0.1-0. 9 Not Available [facility] ([facility]) [address] [place], [address], 07/05/2018 09:23:03 07/04/19 19 07/04/2018 CBC w/ auto diff eos (absolute) 0.1 x10e3 /uL 0.0-0. 4 Not Available [facility] ([facility]) [address] [facility], [place], [address], 07/05/2018 09:23:03 07/04/19 19 07/04/2018 CBC w/ auto diff baso (absolute) 0.1 x10e3 /uL 0.0-0. 2 Not Available [facility] ([facility]) [address] [facility], [place], [address], 07/05/2018 09:23:03 07/04/19 19 07/04/2018 CBC w/ auto diff immature granulocytes 0 % not estab. Not Available [facility] ([facility]) [address] [place], [address], 07/05/2018 09:23:03 07/04/19 19 07/04/2018 CBC w/ auto diff immature grans (abs) 0.0 x10e3 /uL 0.0-0. 1 Not Available [facility] ([facility]) [address] [place], [address], 07/05/2018 09:23:03 07/04/19 19 07/04/2018 CBC w/ auto diff NRBC PACKAGING INSPECTOR Not Available [facility] ([facility]) [address] [place], [address], 07/05/2018 09:23:03 07/04/19 19 07/04/2018 CBC w/ auto diff hematology comments: PACKAGING INSPECTOR Not Available [facility] ([facility]) [address] [facility], [place], [address], 07/05/2018 09:23:03 07/04/19 19 07/05/2018 CMP, serum or plasm a glucose 90 mg/dL 65-99 Not Available [facility] ([facility]) [address] [place], [address], 07/05/2018 09:23:04 07/04/19 19 07/05/2018 CMP, serum or plasm a BUN 9 mg/dL 6-20 Not Available [facility] ([facility]) [address] [place], [address], 07/05/2018 09:23:04 07/04/19 19 07/05/2018 CMP, serum or plasm a creatinine 0.66 mg/dL 0.57-1 .00 Not Available [facility] ([facility]) [address] [place], [address], 07/05/2018 09:23:04 07/04/19 19 07/05/2018 CMP, serum or plasm a eGFR if nonafricn AM 123 mL/mi n/1.7 3 >59 Not Available [facility] ([facility]) [address] [place], [address], 07/05/2018 09:23:04 07/04/19 19 07/05/2018 CMP, serum or plasm a eGFR if africn AM 142 mL/mi n/1.7 3 >59 Not Available [facility] ([facility]) [address] [place], [address], 07/05/2018 09:23:04 07/04/19 19 07/05/2018 CMP, serum or plasm a BUN/creatini ne ratio 14 9-23 Not Available [facility] ([facility]) [address] [place], [address], 07/05/2018 09:23:04 07/04/19 19 07/05/2018 CMP, serum or plasm a sodium 139 mmol/ L 134-14 4 Not Available [facility] ([facility]) [address] [facility] [place], [address], 07/05/2018 09:23:04 07/04/19 19 07/05/2018 CMP, serum or plasm a potassium 4.4 mmol/ L 3.5-5. 2 Not Available [facility] ([facility]) [address] [facility] [place], [address], 07/05/2018 09:23:04 07/04/19 19 07/05/2018 CMP, serum or plasm a chloride 102 mmol/ L 96-106 Not Available [facility] ([facility]) [address] [facility] [place], [address], 07/05/2018 09:23:04 07/04/19 19 07/05/2018 CMP, serum or plasm a carbon dioxide, total 23 mmol/ L 20-29 Not Available [facility] ([facility]) [address] [facility] [place], [address], 07/05/2018 09:23:04 07/04/1907/05/2018 CMP, serum or plasm a calcium 9.7 mg/dL 8.7-10 .2 Not Available [facility] ([facility]) [address] [facility] [place], [address], 07/05/2018 09:23:04 07/04/19 19 07/05/2018 CMP, serum or plasm a protein, total 8.1 g/dL 6.0-8. 5 Not Available [facility] ([facility]) [address] [facility] [place], [address], 07/05/2018 09:23:04 07/04/1907/05/2018 CMP, serum or plasm a albumin 4.6 g/dL 3.5-5. 5 Not Available [facility] ([facility]) [address] [facility] [place], [address], 07/05/2018 09:23:04 07/04/19 19 07/05/2018 CMP, serum or plasm a globulin, total 3.5 g/dL 1.5-4. 5 Not Available [facility] ([facility]) [address] [facility] [place], [address], 07/05/2018 09:23:04 07/04/1907/05/2018 CMP, serum or plasm a A/G ratio 1.3 1.2-2. 2 Not Available [facility] ([facility]) [address] [facility] [place], [address], 07/05/2018 09:23:04 07/04/1907/05/2018 CMP, serum or plasm a bilirubin, total 0.3 mg/dL 0.0-1. 2 Not Available [facility] ([facility]) [address] [place], [address], 07/05/2018 09:23:04 07/04/1907/05/2018 CMP, serum or plasm a alkaline phosphatase 68 IU/L 39-117 Not Available [facility]) [address] [facility] [place], [address], 07/05/2018 09:23:04 07/04/1907/05/2018 CMP, serum or plasm a AST (SGOT) 20 IU/L 0-40 Not Available [facility] ([facility]) [address] [place], [address], 07/05/2018 09:23:04 07/04/1907/05/2018 CMP, serum or plasm a ALT (SGPT) 15 IU/L 0-32 Not Available [facility] ([facility]) [address] [place], [address], 07/05/2018 09:23:04 07/04/1907/05/2018 cytom egalo virus (cmv) igg+i gm Ab, serum cytomegalovi yung (CMV) Ab, IgG <0.60 U/mL 0.00-0 .59 Negat hayde <0.60 Equiv ocal 0.60 - 0.69 Posit hayde >0.69 Not Available [facility] ([facility]) [address] [facility], [place], [address], 07/05/2018 09:23:04 07/04/1907/05/2018 cytom egalo virus (cmv) igg+i gm Ab, serum cytomegalovi yung (CMV) Ab, IgM <30.0 AU/mL 0.0-29 .9 Negat hayde <30.0 Equiv ocal 30.0 - 34.9 Posit hayde >34.9 A posit hayde resul t is gener ally indic ative of acute infec tion, react ivati on or persi stent IgM produ ction . Not Available [facility] ([facility]) [address] [facility], [place], [address], 07/05/2018 09:23:04 07/04/1907/05/2018 RPR (rapi d plasm a reagi n), serum RPR Non Reacti ve non reacti ve Not Available [facility] ([facility]) [address] [facility] [place], [address], 07/05/2018 09:23:05 07/04/1907/05/2018 heter ophil e Ab, quali tativ e latex agglu tinat ion, serum mono qual w/rflx qn Negati ve negati ve The sensi tivit y of Heter ophil e antib srinivasan testi ng is 80-90 %. Epste in [place] IgM testi ng offer s highe r sensi tivit y. Not Available [facility] ([facility]) [address] [facility], [place], [address], 07/05/2018 09:23:06 08/30/1908/30/2018 CBC w/ auto diff WBC 7.4 x10e3 /uL 3.4-10 .8 Not Available [facility] ([facility]) [address] [facility] [place], [address], 08/30/2018 07:11:59 08/30/19 19 08/30/2018 CBC w/ auto diff RBC 4.51 x10e6 /uL 3.77-5 .28 Not Available [facility] ([facility]) [address] [place], [address], 08/30/2018 07:11:59 08/30/19 19 08/30/2018 CBC w/ auto diff hemoglobin 11.0 g/dL 11.1-1 5.9 below low normal Not Available [facility] ([facility]) [address] [place], [address], 08/30/2018 07:11:59 08/30/1908/30/2018 CBC w/ auto diff hematocrit 34.2 % 34.0-4 6.6 Not Available [facility] ([facility]) [address] [place], [address], 08/30/2018 07:11:59 08/30/1908/30/2018 CBC w/ auto diff MCV 76 fL 79-97 below low normal Not Available [facility] ([facility]) [address] [place], [address], 08/30/2018 07:11:59 08/30/1908/30/2018 CBC w/ auto diff MCH 24.4 pg 26.6-3 3.0 below low normal Not Available [facility] ([facility]) [address] [place], [address], 08/30/2018 07:11:59 08/30/1908/30/2018 CBC w/ auto diff MCHC 32.2 g/dL 31.5-3 5.7 Not Available [facility] ([facility]) [address] [place], [address], 08/30/2018 07:11:59 08/30/1908/30/2018 CBC w/ auto diff RDW 15.6 % 12.3-1 5.4 above high normal Not Available [facility] ([facility]) [address] [facility] [place], [address], 08/30/2018 07:11:59 08/30/19 19 08/30/2018 CBC w/ auto diff platelets 389 x10e3 /uL 150-37 9 above high normal Not Available [facility] ([facility]) [address] [facility] [place], [address], 08/30/2018 07:11:59 08/30/19 19 08/30/2018 CBC w/ auto diff neutrophils 59 % not estab. Not Available [facility] ([facility]) [address] [facility], [place], [address], 08/30/2018 07:11:59 08/30/19 19 08/30/2018 CBC w/ auto diff lymphs 31 % not estab. Not Available [facility] ([facility]) [address] [facility], [place], [address], 08/30/2018 07:11:59 08/30/1908/30/2018 CBC w/ auto diff monocytes 8 % not estab. Not Available [facility] ([facility]) [address] [facility] [place], [address], 08/30/2018 07:11:59 08/30/1908/30/2018 CBC w/ auto diff eos 1 % not estab. Not Available [facility] ([facility]) [address] [facility], [place], [address], 08/30/2018 07:11:59 08/30/1908/30/2018 CBC w/ auto diff basos 1 % not estab. Not Available [facility] ([facility]) [address] [facility] [place], [address], 08/30/2018 07:11:59 08/30/1908/30/2018 CBC w/ auto diff immature cells PACKAGING INSPECTOR Not Available [facility] ([facility]) [address] [facility], [place], [address], 08/30/2018 07:11:59 08/30/19 19 08/30/2018 CBC w/ auto diff neutrophils (absolute) 4.4 x10e3 /uL 1.4-7. 0 Not Available [facility] ([facility]) [address] [place], [address], 08/30/2018 07:11:59 08/30/1908/30/2018 CBC w/ auto diff lymphs (absolute) 2.3 x10e3 /uL 0.7-3. 1 Not Available [facility] ([facility]) [address] [place], [address], 08/30/2018 07:11:59 08/30/1908/30/2018 CBC w/ auto diff monocytes(ab solute) 0.6 x10e3 /uL 0.1-0. 9 Not Available [facility] ([facility]) [address] [place], [address], 08/30/2018 07:11:59 08/30/1908/30/2018 CBC w/ auto diff eos (absolute) 0.1 x10e3 /uL 0.0-0. 4 Not Available [facility] ([facility]) [address] [place], [address], 08/30/2018 07:11:59 08/30/1908/30/2018 CBC w/ auto diff baso (absolute) 0.0 x10e3 /uL 0.0-0. 2 Not Available [facility] ([facility]) [address] [place], [address], 08/30/2018 07:11:59 08/30/1908/30/2018 CBC w/ auto diff immature granulocytes 0 % not estab. Not Available [facility] ([facility]) [address] [place], [address], 08/30/2018 07:11:59 08/30/1908/30/2018 CBC w/ auto diff immature grans (abs) 0.0 x10e3 /uL 0.0-0. 1 Not Available [facility] ([facility]) [address] [facility], [place], [address], 08/30/2018 07:11:59 08/30/1908/30/2018 CBC w/ auto diff NRBC PACKAGING INSPECTOR Not Available [facility] ([facility]) [address] [facility], [place], [address], 08/30/2018 07:11:59 08/30/1908/30/2018 CBC w/ auto diff hematology comments: PACKAGING INSPECTOR Not Available [facility] ([facility]) [address] [facility], [place], [address], 08/30/2018 07:11:59 08/30/1908/30/2018 hsv (1+2) igg Ab, [...] willy to HSV-1 . Not Available [facility] ([facility]) [address] [facility], [place], [address], 08/30/2018 07:12:00 08/30/1908/30/2018 hsv (1+2) igg Ab, [...] willy to HSV-2 . Not Available [facility] ([facility]) [address] [facility], [place], [address], 08/30/2018 07:12:00 08/30/19 19 08/30/2018 RPR (rapi d plasm a reagi n), serum RPR Non Reacti ve non reacti ve Not Available [facility] ([facility]) [address] [place], [address], 08/30/2018 07:12:00 08/30/1908/30/2018 HIV 1+2 AB + HIV 1 p24 Ag, quali tativ e immun oassa y, serum HIV screen 4TH generation wrfx Non Reacti ve non reacti ve Not Available [facility] ([facility]) [address] [place], [address], 08/30/2018 07:12:01 08/30/19 19 08/30/2018 hepat itis C Ab, signa l-to- cutof f, serum or plasm a HCV Ab <0.1 s/co_ ratio 0.0-0. 9 Not Available [facility] ([facility]) [address] [place], [address], 08/30/2018 07:12:01 08/30/19 19 08/30/2018 hepat itis C Ab, signa l-to- cutof f, serum or plasm a comment: Commen t Non react hayde HCV antib srinivasan scree n is consi stent with no HCV infec tion, unles s recen t infec tion is suspe cted or other evide nce exist s to indic ate HCV infec tion. Not Available [facility] ([facility]) [address] [place], [address], 08/30/2018 07:12:01 08/30/19 19 08/30/2018 HBsAg (hepa titis B surfa ce Ag), EIA, serum HBsAg screen Negati ve negati ve Not Available [facility] ([facility]) [address] [facility] [place], [address], 08/30/2018 07:12:02 02/14/2002/14/2019 CBC w/ auto diff WBC 7.5 x10e3 /uL 3.4-10 .8 Not Available [facility] ([facility]) [address] [facility] [place], [address], 02/14/2019 06:40:13 02/14/2002/14/2019 CBC w/ auto diff RBC 4.34 x10e6 /uL 3.77-5 .28 Not Available [facility] ([facility]) [address] [facility] [place], [address], 02/14/2019 06:40:13 02/14/2002/14/2019 CBC w/ auto diff hemoglobin 11.1 g/dL 11.1-1 5.9 Not Available [facility] ([facility]) [address] [facility], [place], [address], 02/14/2019 06:40:13 02/14/2002/14/2019 CBC w/ auto diff hematocrit 34.2 % 34.0-4 6.6 Not Available [facility] ([facility]) [address] [facility] [place], [address], 02/14/2019 06:40:13 02/14/2002/14/2019 CBC w/ auto diff MCV 79 fL 79-97 Not Available [facility] ([facility]) [address] [facility] [place], [address], 02/14/2019 06:40:13 02/14/2002/14/2019 CBC w/ auto diff MCH 25.6 pg 26.6-3 3.0 below low normal Not Available [facility] ([facility]) [address] [place], [address], 02/14/2019 06:40:13 02/14/2002/14/2019 CBC w/ auto diff MCHC 32.5 g/dL 31.5-3 5.7 Not Available [facility] ([facility]) [address] [facility] [place], [address], 02/14/2019 06:40:13 02/14/2002/14/2019 CBC w/ auto diff RDW 15.0 % 12.3-1 5.4 Not Available [facility] ([facility]) [address] [facility], [place], [address], 02/14/2019 06:40:13 02/14/2002/14/2019 CBC w/ auto diff platelets 372 x10e3 /uL 150-45 0 Not Available [facility] ([facility]) [address] [facility] [place], [address], 02/14/2019 06:40:13 02/14/2002/14/2019 CBC w/ auto diff neutrophils 61 % not estab. Not Available [facility] ([facility]) [address] [facility] [place], [address], 02/14/2019 06:40:13 02/14/2002/14/2019 CBC w/ auto diff lymphs 28 % not estab. Not Available [facility] ([facility]) [address] [facility] [place], [address], 02/14/2019 06:40:13 02/14/2002/14/2019 CBC w/ auto diff monocytes 8 % not estab. Not Available [facility] ([facility]) [address] [facility] [place], [address], 02/14/2019 06:40:13 02/14/2002/14/2019 CBC w/ auto diff eos 2 % not estab. Not Available [facility] ([facility]) [address] [facility] [place], [address], 02/14/2019 06:40:13 02/14/2002/14/2019 CBC w/ auto diff basos 1 % not estab. Not Available [facility] ([facility]) [address] [facility] [place], [address], 02/14/2019 06:40:13 02/14/2002/14/2019 CBC w/ auto diff immature cells PACKAGING INSPECTOR Not Available [facility] ([facility]) [address] [facility] [place], [address], 02/14/2019 06:40:13 02/14/2002/14/2019 CBC w/ auto diff neutrophils (absolute) 4.7 x10e3 /uL 1.4-7. 0 Not Available [facility] ([facility]) [address] [facility], [place], [address], 02/14/2019 06:40:13 02/14/2002/14/2019 CBC w/ auto diff lymphs (absolute) 2.1 x10e3 /uL 0.7-3. 1 Not Available [facility] ([facility]) [address] [facility] [place], [address], 02/14/2019 06:40:13 02/14/2002/14/2019 CBC w/ auto diff monocytes(ab solute) 0.6 x10e3 /uL 0.1-0. 9 Not Available [facility] ([facility]) [address] [facility] [place], [address], 02/14/2019 06:40:13 02/14/2002/14/2019 CBC w/ auto diff eos (absolute) 0.1 x10e3 /uL 0.0-0. 4 Not Available [facility] ([facility]) [address] [place], [address], 02/14/2019 06:40:13 02/14/2002/14/2019 CBC w/ auto diff baso (absolute) 0.0 x10e3 /uL 0.0-0. 2 Not Available [facility] ([facility]) [address] [facility] [place], [address], 02/14/2019 06:40:13 02/14/2002/14/2019 CBC w/ auto diff immature granulocytes 0 % not estab. Not Available [facility] ([facility]) [address] [facility] [place], [address], 02/14/2019 06:40:13 02/14/2002/14/2019 CBC w/ auto diff immature grans (abs) 0.0 x10e3 /uL 0.0-0. 1 Not Available [facility] ([facility]) [address] [place] [address], [place], [address], 02/14/2019 06:40:13 02/14/2002/14/2019 CBC w/ auto diff NRBC PACKAGING INSPECTOR Not Available [facility] [facility]) [address] [place] [address], [place], [address], 02/14/2019 06:40:13 02/14/2002/14/2019 CBC w/ auto diff hematology comments: PACKAGING INSPECTOR Not Available [facility] ([facility]) [address] [place] [address], [place], [address], 02/14/2019 06:40:13 02/14/2002/14/2019 iron + total iron- leta ng capac ity (TIBC ), serum iron bind.cap.(TI BC) 353 ug/dL 250-45 0 Not Available [facility] ([facility]) [address] [facility], [place], [address], 02/14/2019 06:40:14 02/14/2002/14/2019 iron + total iron- leta ng capac ity (TIBC ), serum UIBC 336 ug/dL 131-42 5 Not Available [facility] ([facility]) [address] [place] [address], [address], 02/14/2019 06:40:14 02/14/2002/14/2019 iron + total iron- leta ng capac ity (TIBC ), serum iron 17 ug/dL 27-159 below low normal Not Available [facility] ([facility]) [address] [facility], [place], [address], 02/14/2019 06:40:14 02/14/2002/14/2019 iron + total iron- leta ng capac ity (TIBC ), serum iron saturation 5 % 15-55 alert low Not Available [facility] ([facility]) [address] [facility], [place], [address], 02/14/2019 06:40:14 02/14/2002/14/2019 cristina tin, serum or plasm a ferritin, serum 7 NG/mL 15-150 below low normal Not Available [facility] ([facility]) [address] [facility], [place], [address], 02/14/2019 06:40:14 07/04/19 19 07/04/2018 XR, chest No observ ation record ed. [email or web address] [address] [place], [address], 07/06/2018 16:35:07 08/16/19 19 08/09/2018 CT, neck, soft tissu e, w/ contr ast No observ ation record ed. [address] [place], [address], 11/27/2018 00:09:00 08/17/19 19 08/16/2018 CT, sinus es, w/o contr ast No observ ation record ed. [address] [place], [address], 08/16/2018 13:21:28 Result Notes None recorded. Problems Name Problem SNOMED Code Status Onset Date Resolution Date Notes Provider Name and Address Organization Details Recorded Time Disorder of thyroid gland 43477155 Completed 201811/26/2018 DIONNE New [facility] 9 00:12:22 Cervical lymphade nopathy 880500163 Active 2018 DIONNE [facility] 9 11:15:19 Upper respirat ory infectio n 40291487 Completed 201811/13/2018 [place] [facility] 9 11:05:53 Mean corpuscu lar volume below referenc e range 457562855 Active 2018 [place] [facility] 9 12:49:50 Acute sinusiti s 04853054 Completed 201811/13/2018 [place] [facility] 9 11:05:49 History of Helicoba cter pylori infectio n 10262101870 194620 Active 2018 GI [place] [facility] 9 00:05:39 Chronic gastriti s 2346300 Active 2018 EGD - H pylori, [place] [facility] 9 00:06:03 Hemorrho ids 19560915 Active 2018 Gen sx planning for hemorrho [place]ctomy [place] [facility] 9 00:06:27 Dizzines s 016846040 Active 2018 [place] [facility] 9 11:29:10 Infectiv e vaginiti s 137747377 Active Radha [place] [facility] 6 11:25:47 Infectiv e vaginiti s 376362993 Completed Shahrzad Barrera [place] [facility] 5 09:18:25 Maternal care for diminish ed movement s Active Radha [place] [facility] 6 11:25:47 Maternal care for diminish ed movement s Completed Shahrzad Barrera [place] [facility] 5 09:18:25 Breastfe eding painful 466298590 Active Radha Quicks [place] [facility] 6 11:25:47 Pain in pelvis 64489652 Active Radha Laymons [place] [facility] 6 11:25:47 Vaginal discharg e 366235586 Active white Radha moreno, [facility] 6 11:25:47 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 Procedures Surgical History Date Name Laterality Status Provider Name and Address Organization Details Recorded Time 05/08/19 16 Cholecystectomy completed Radha Garcia [facility] 11/03/2015 11:25:48 01/15/20 15 IUD Insertion completed Ricardo Isauro [facility] 01/14/2015 12:23:57 04/18/20 12 Date of Last Pap Smear completed Mily Parsons [place] [facility] 05/06/2014 16:14:24 05/08/19 10 Appendectomy completed Maida Do [place] [facility] 06/17/2014 11:12:04 Imaging Results Imaging Date Name Status LastModified by Organiz ation Details LastModified Time 07/04/2018 XR, chest completed [email or web address] [address] [place], [address], 07/06/2018 16:35:07 08/09/2018 CT, neck, soft tissue, w/ contrast completed [address] [place], [address], 11/27/2018 00:09:00 08/16/2018 CT, sinuses, w/o contrast completed [address] [place], [address], 08/16/2018 13:21:28 Procedure Notes None recorded. Medical [...] Updated DateTime 9 162.56 cm 36.7 kg/m2 42117.0 4 g 97.9 [degF] 16 /min 76 /min 124 mm[Hg] 86 mm[Hg] Jenelle Groves MA [facility] 9 12:24:37 Date Recorded Body height Body mass index (BMI) Body weight Systolic blood pressure Diastolic blood pressure Provider Name and Address Organization Details Last Updated DateTime 08/29/2018 162.56 cm 36.2 kg/m2 65746.99 g 130 mm[Hg] 94 mm[Hg] Shahrzad Barrera MA [facility] 9 11:38:34 Date Recorded Body height Body mass index (BMI) Body weight Body temperature Heart rate Respiratory rate Systolic blood pressure Diastolic blood pressure Provider Name and Address Organization Details Last Updated DateTime 9 162.56 cm 36 kg/m2 99840.6 1 g 98.3 [degF] 84 /min 20 /min 132 mm[Hg] 84 mm[Hg] Jenelle Groves MA [facility] 9 12:15:41 Date Recorded Body height Body mass index (BMI) Body weight Body temperature Heart rate Respiratory rate Systolic blood pressure Diastolic blood pressure Provider Name and Address Organization Details Last Updated DateTime 9 162.56 cm 35.5 kg/m2 71778.9 7 g 98.3 [degF] 70 /min 18 /min 130 mm[Hg] 80 mm[Hg] Jenelle Groves MA [facility] 9 10:43:45 Date Recorded Body height Body mass index (BMI) Body weight Heart rate Respiratory rate Body temperature Systolic blood pressure Diastolic blood pressure Provider Name and Address Organization Details Last Updated DateTime 9 162.56 cm 36.3 kg/m2 32462.7 9 g 86 /min 20 /min 98.3 [degF] 130 mm[Hg] 82 mm[Hg] Jenelle Groves [place] [facility] 9 11:02:19 Social History Question [...] available 07/04/2018 10:23:59 Medical History Condition Response Other N Breast Cancer N Lung Disease N Depression N Breast Problem N Anesthesia Complications N Headaches/Migraines N Anxiety Disorder N Arthritis N Polyps N Infertility N Acid Reflux (GERD) N Cancer N Stroke N Endometriosis N High Cholesterol N Fibromyalgia N Kidney Disease N Heart Problems N Thyroid Problems N Kidney or Bladder Problems N GI Problems N Acne N Eating Disorder N Anemia N Diabetes N Ovarian Cancer N Blood Transfusions N Abuse/Domestic Violence N Asthma N Hepatitis N Heart Disease N Pre-Eclampsia N Hypertension N Osteoporosis N Gynecological History Statement/Question Response Abnormal Pap [...] SNOMED-CT Code Diagnosis ICD10 Code Diagnosis Note [id number] BRENDEN Keene ([facility] 122) [address] [place] [address] 05/06/2014 15:15:04 05/07/2014 13:43:54 [id number] test positive [id number] Alia Husain ([facility] 122) [address] [place] [address] 05/22/2014 14:23:39 05/22/2014 15:25:47 [id number] BRENDEN Hameed ([facility] 122) [address] [place] [address] 06/17/2014 10:44:30 06/17/2014 15:08:09 [id number] Alia Husain ([facility]) [address] [place] [address] 07/15/2014 10:26:03 07/16/2014 09:23:26 Normal [id number] Alia [facility] ([facility] 122) [address] [facility] [place] [address] 08/12/2014 09:35:12 08/12/2014 12:42:08 Normal [id number] [place] [facility] ([facility] 122) [address] [facility] [place] [address] 08/26/2014 11:56:11 08/27/2014 16:10:13 [id number] Alia Vanegas [facility] ([facility] 122) [address] [facility] [place] [address] 09/09/2014 14:42:01 09/09/2014 15:30:17 [id number] [place] [facility] ([facility] 122) [address] [facility] [place] [address] 09/23/2014 09:49:09 09/23/2014 15:23:49 [id number] BRENDEN Mar [facility] ([facility] 122) [address] [facility] [place] [address] 10/07/2014 10:59:01 10/07/2014 11:38:07 [id number] Ricardo Box [place] [facility] ([facility] 122) [address] [facility] [place] [address] 10/21/2014 09:36:51 10/23/2014 12:51:20 [id number] Alia [facility] ([facility] 122) [address] [facility] [place] [address] 11/04/2014 09:43:59 11/04/2014 14:45:01 [id number] Normal [id number] BRENDEN Keene [facility] ([facility]) [address] [facility] [place] [address] 11/11/2014 11:18:25 11/11/2014 14:54:02 [id number] Maternal c are for diminished movements 894520271 [id number] Alia [facility] ([facility] 122) [address] [place] [address] 11/18/2014 10:46:59 11/18/2014 11:58:55 [id number] Bianka Fletcher [place] [facility] ([facility] 122) [address] [place] [address] 11/24/2014 08:49:50 11/24/2014 10:29:51 [id number] Ricardo Box [place] [facility] ([facility] 122) [address] [place] [address] 12/24/2014 09:05:47 12/24/2014 12:04:57 care [id number] BRENDEN Chan [facility] ([facility] 122) [address] [place] [address] 01/14/2015 11:47:27 01/14/2015 12:33:02 care [id number] Uses contraception [id number] Alia [facility] ([facility] 122) [address] [place] [address] 01/19/2015 15:46:51 01/20/2015 09:49:17 IUD check 465681977 [id number] Madyson Obdulio [facility] ([facility] 122) [address] [place] [address] 02/11/2015 10:38:39 02/18/2015 18:08:10 IUD check 180770697 Z30.431 [id number] Joan Blas [facility] [place] [facility] ([facility] 122) [address] [place] [address] 11/03/2015 11:00:12 11/03/2015 14:33:42 detection examination 50162544 Z32.00 IUD check 971326497 Z30. 926 [id number] Lucero Vanegas 14 IM [address] [place] [address] 07/04/2018 09:50:09 07/04/2018 16:26:43 Cervical lymphadenopathy 715995349 R59.0 Had a cough since 02/2018, on and off No traveling. No cat. Weight stable overall. Fatigue - despite sleeping. No dental issues. No focal weakness. Sweaty at times. Irregular periods. Neuro intact. ENT will do US +/- biopsy soon. Labs. Check for mono, syphilis, CMV, CXR. RTC 3mo Disorder o f thyroid gland 04210637 E07.9 Had a cough since 02/2018, on and off. Check TSH [id number] Lucero Vanegas 14 IM [address] [facility] [place] [address] 07/27/2018 12:09:33 07/31/2018 15:49:44 Cervical lymphadenopathy 879196882 R59.0 Had a cough since 02/2018, on [...] second ENT opinion. Upper resp iratory infection 18734970 J06.9 Strept and Flu negative. Exam unremarkab le. Conservati ve management . [id number] MD Justin Chambersn 14 OB [address] [facility] [place] [address] 08/29/2018 11:23:12 08/30/2018 09:21:21 Gynecologic examination 78664194 Z01.419 CBE and pelvic exam performedP t is on her menstrual cycle, will RTC for pap smear Venereal d isease screening 153903289 Z11.3 Anemia 069323046 D64.9 Hemorrhoids 52748878 K64 .9 [id number] Lucero Vanegas 14 IM [address] [facility] [place] [address] 09/05/2018 12:08:49 09/06/2018 10:44:23 Acute sinusitis 97253111 J01.90 4 days, worsening coughs, chest congestion . Exam sinusitis. Already on antihistam althea, PPI, Augmentin with ENT. Try home Flonase, add mucinex. Mean corpu scular volume below reference range 726951701 R71.8 MCV still low with Roller Gold Leaf. 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 FeS - taking two tab now. Inc to three - RTC 2mo for ferritin check. [id number] Lucero Lori Vanegas 14 IM [address] [facility] [place] [address] 11/13/2018 10:37:12 11/27/2018 11:36:00 Cervical lymphadenopathy 865123404 R59.0 06/2018: Had a cough since 02/2018, [...] done biopsy - result benign. Chronic gastritis 985127 9 K29.50 Followed by GI.Chronic gastritic, H pylori infection - pt was treated. Per pt, her esophagus was also dilated. Hemorrhoids 71896666 K64 .9 Followed by Gen sx - candidate for hemorrhoid ectomy. History of Helicobacter pylori infection 3751350192 [id number] Z86.19 Followed by GI - treated [id number] Lucero Vanegas 14 IM [address] [facility] [place] [address] 02/13/2019 10:52:03 02/14/2019 08:35:16 Dizziness 385277887 R42 Thyroid was low with Roller Gold Leaf recently - pt will be rechecked by [...] Steele Member ID Guarantor Name 07/27/2018 1 [place] [facility] OF PUBLIC AID Yessica Ray [id number] Yessica Corzine 08/29/2018 1 [place] [facility] PUBLIC AID Yessica Ray [id number] Yessica Corzine 09/05/[address] [facility] [place]ID HMO[place] Yess[place] Ray [id number] Yessica Corzine 11/13/[address] [facility] [place] Yessica Ray [id number] Yessica Corzine 02/13/2019 2 [place] [facility] PUBLIC AID Yessica Ray [id number] Yessica Corzine 02/13/2019 1 [facility] [id number] Luis Antonio Rowe Corzine [id number] Yessica Corzine Notes Date Note Type Note [...] Ricardo Ramirez MD Attn: Accounting,[address] [facility], [place], [address], [place] [facility] 08/29/2018 16:15:04 09/05/2018 text/html 23yo female is h ere for coughs. Coughs Congested chest 4 days of increase Wheeze Sore throat No fever, chills, muscle ache Saw ENT - on Tessalon perles, Augmentin for 1mo, Probiotic, Omeprazole She is on Minerva and Benadryl Lucero moreno [facility] 09/05/2018 12:50:10 11/13/2018 text/html 23yo [...] Was planning for hemorrhoidectomy Lucero Vacamary moreno [facility] 11/27/2018 00:24:29 02/13/2019 text/html 24yo [...] with meals Denies room spinning. Lucero Sandoval [facility], [place] - [facility] 02/13/2019 11:29:52 OBGyn Episode Ob Episode Information Episode Created Date Number of Fetuses Patient Bloodtype Patient rh Status Prepregnancy Weight lbs Domestic Partner Domestic Partner Phone Father Name Store Consultant Status 05/06/20 14 1 A Positive Luis Antonio Mo CLOSED Fetus Data First Name Last Name Admitted to NICU Weight (g) Sex Living Outcome Pediatric Complications Fetus ID Race Codes Race Delivery Type CHASITY LILLY NE false 4309.12 4 F Full Term 5386 2106-3 White Vaginal Problems Problem Notes Problem Name Start Date End Date Resolution Snomed Code Not e Infective vaginitis 543914211 Maternal care for diminished movements 590407151 Darren Calculation Initial Darren Date Initial Exam [...] Gestation 0 [email or web address] 06/17/2014 11/28/19 15 0 Pre-erick Flowsheet Flowsheet Date 05/06/2014 Mckinney Score Blood Edema Fundus Height Fundus Units Glucose Ketones Leukocytes Nitrite Labor Signs Protein Cervic Dilation Cervic Effacement Cervic Station Type Weight in lbs Pre/Post Dialysis Refused 203.272331445409 BP Diastolic BP Location Tested BP Systolic BP Type 64 L arm 118 sitting Fetus Heart Rate Present Fetus Movement Comments Flowsheet Date 05/22/2014 Mckinney Score Blood Edema Fundus Height Fundus Units Glucose Ketones Leukocytes Nitrite Labor Signs Protein Cervic Dilation Cervic Effacement Cervic Station neg none none negative neg Type Weight in lbs Pre/Post Dialysis Refused 198.805527132790 BP Diastolic BP Location Tested BP Systolic [...] Type Weight in lbs Pre/Post Dialysis Refused 164.68937998349 BP Diastolic BP Location Tested BP Systolic [...] Type Weight in lbs Pre/Post Dialysis Refused 201.866423672613 BP Diastolic BP Location Tested BP Systolic [...] Type Weight in lbs Pre/Post Dialysis Refused 203.09142404591 BP Diastolic BP Location Tested BP Systolic BP Type 68 128 Fetus Heart Rate Present A 142 Present Fetus Movement A Yes Comments 28 weeks today Flowsheet Date 08/26/2014 Mckinney Score Blood Edema Fundus Height Fundus Units Glucose Ketones Leukocytes Nitrite Labor Signs Protein Cervic Dilation Cervic Effacement Cervic Station 26 cm none Type Weight in lbs Pre/Post Dialysis Refused 203.34505574921 BP Diastolic BP Location Tested BP Systolic BP Type 74 L arm 122 sitting Fetus Heart Rate Present A 146 Present Fetus Movement A Yes Comments Flowsheet Date 09/09/2014 Mckinney Score Blood Edema Fundus Height Fundus Units Glucose Ketones Leukocytes Nitrite Labor Signs Protein Cervic Dilation Cervic Effacement Cervic Station 30 cm none Type Weight in lbs Pre/Post Dialysis Refused 206.631456736153 BP Diastolic BP Location Tested BP Systolic BP Type 60 L arm 120 sitting Fetus Heart Rate Present A 154 Present Fetus Movement A Yes Comments Flowsheet Date 09/23/2014 Mckinney Score Blood Edema Fundus Height Fundus Units Glucose Ketones Leukocytes Nitrite Labor Signs Protein Cervic Dilation Cervic Effacement Cervic Station 32 cm none Type Weight in lbs Pre/Post Dialysis Refused 205.967475487097 BP Diastolic BP Location Tested BP Systolic BP Type 68 110 Fetus Heart Rate Present A 155 Fetus Movement A Yes Comments Flowsheet Date 10/07/2014 Mckinney Score Blood Edema Fundus Height Fundus Units Glucose Ketones Leukocytes Nitrite Labor Signs Protein Cervic Dilation Cervic Effacement Cervic Station none Type Weight in lbs Pre/Post Dialysis Refused 208.879081612784 BP Diastolic BP Location Tested BP Systolic BP Type 78 110 sitting Fetus Heart Rate Present A 154 Fetus Movement A Yes Comments growth scan ordered Flowsheet Date 10/21/2014 Mckinney Score Blood Edema Fundus Height Fundus Units Glucose Ketones Leukocytes Nitrite Labor Signs Protein Cervic Dilation Cervic Effacement Cervic Station 37 cm none Type Weight in lbs Pre/Post Dialysis Refused 213.706630589323 BP Diastolic BP Location Tested BP Systolic BP Type 72 118 sitting Fetus Heart Rate Present A 140 Present Fetus Movement A Yes Comments gbs today. Flowsheet Date 11/04/2014 Mckineny Score Blood Edema Fundus Height Fundus Units Glucose Ketones Leukocytes Nitrite Labor Signs Protein Cervic Dilation Cervic Effacement Cervic Station 37 cm none Type Weight in lbs Pre/Post Dialysis Refused 216.799172391177 BP Diastolic BP Location Tested BP Systolic [...] Type Weight in lbs Pre/Post Dialysis Refused 217.902558082606 BP Diastolic BP Location Tested BP Systolic [...] Type Weight in lbs Pre/Post Dialysis Refused 221.310300986826 BP Diastolic BP Location Tested BP Systolic [...] Type Weight in lbs Pre/Post Dialysis Refused 223.264838343013 BP Diastolic BP Location Tested BP Systolic [...] At Estimated Date of Delivery false Thalassemia (Cypriot, Belarusian, Mediterranean, Or Background): MCV < 80 false Neural Tube Defect (Meningom yelocele, Spina Bifida, Or Anencephaly) false Congenital Heart Defect false Down Syndrome false Curt-Sachs (eg, Taoist, Cajun , Albanian-Hinsdale) false Yung Disease false Sickle Cell Disease Or Trait () false Hemophilia Or Other Blood Disorders false Muscular Dystrophy false Cystic Fibrosis false Shackelford's Chorea false Mental Retardation/Autism false Other Inherited [...] Domestic Partner Domestic Partner Phone Father Name Store Consultant Status 06/17/19 15 1 CLOSED Fetus Data First Name Last Name Admitted to NICU Weight (g) Sex Living Outcome Pediatric Complications Fetus ID Race Codes Race Delivery Type 3515.33 8 F Full Term [id number] Vaginal Darren Calculation Initial Darren Date Initial [...]
[2024-07-21 19:44] VITALS: BP 125/64; PULSE 89
[2024-07-21 19:45] VITALS: BP 104/72; PULSE 87
[2024-07-21 19:56] LABS: Add Urine Microscopic? NO; Appearance Urine Clear (Clear); Bilirubin Urine Negative (Negative); Blood Urine Negative (Negative); Color Urine Yellow (Yellow); Glucose Urine UA Negative (Negative); Ketones Urine Negative (Negative); Leukocyte Esterase Ur Negative LEU/UL (Negative); Nitrate Urine Negative (Negative); Protein Urine Negative (Negative); Specific Grav Ur 1.005 (1.001-1.035); Urobilinogen Urine 0.2 mg/dL (<2.0); pH Urine 6.5 (5.0-9.0)
[2024-07-21 20:00] VITALS: BP 126/69; PULSE 91
--- NOTE | 2024-07-21 20:05 | PC.NURSE ---
2004 NOTIFIED OF PT ARRIVAL AND CURRENT PT STATUS. ROM+ WAS NEGATIVE. NO LEAKING NOTED SINCE ARRIVAL. FHT's DOPPLED. DISCHARGE ORDERS RECEIVED.
[2024-07-21 20:16] LABS: OBXCEM ROM Plus Negative (Negative)
== END 2024-07-21 20:20 | disposition home or self-care (01) ==
LOC: ANHOBOP 19:34 → ANHLDR 19:36
PROVIDERS: Obstetrics & Gynecology; PCP Advanced Practice Midwife; Visit Provider Advanced Practice Midwife
DX: O42.90 Premature rupture of membranes, unspecified as to length of time between rupture and onset of labor, unspecified weeks of gestation (principal); Z3A.00 Weeks of gestation of pregnancy not specified
CPT/HCPCS: 81003; 84112

== ENCOUNTER 2024-08-08 09:02 | Outpatient (CLI) | payer OTHER, SELFPAY ==
--- OUTSIDE RECORDS SUMMARY | 2024-08-08 09:17 | XMS_ITS | Clinical Summary ---
Author Organization [facility] [employer] Address [address] [place] [address] Care Team Providers Care Manufacturing Scheduler Name Role Phone Scooter White DO Primary Care Provider [phone] Source Comments [facility],non-owned Affiliates and Associated Physician Practices is amultiple site organization consisting of ambulatory clinics and hospital sitesin [place], [place], [place] and [place]. This disclosure is being madepursuant to the Care Everywhere program and may not contain all information available regarding this patient. Last updated 18.[facility] [employer] Allergies Active Allergy Reactions Criticality Noted Date Comments Prednisone Urticaria Medium 07/31/2024 Medications * Be aware that medications may not be up to date on this document. Alwaysverify current medications with the patient. Medication Sig Dispensed Refills Start Date End Date Status Vit-Fe Fumarate-FA ( VITAMIN) 28-0.8 MG tablet Take 1 Tab by mouth once daily. Active cyclobenzaprine (Flexeril) 10 MG tabletIndications :Muscle Spasm Take 1 (one) tablet by mouth 3 times daily as needed for Muscle Spasms Reasons: Muscle Spasm Active SUMAtriptan (Imitrex) 25 MG tabletIndications :Migraine Take 1 (one) tablet by mouth daily as needed - may repeat one time for Migraine Maximum daily dose: 200 mg/24 hours Reasons: Migraine Headache Active aspirin (Aspirin) 81 MG chew tablet Take 1 (one) tablet by mouth once daily Active ondansetron (Zofran) 4 MG tabletIndications :Nausea and Vomiting Take 1 (one) tablet by mouth every 6 hours as needed for Nausea/Vomiting Reasons: Nausea and Vomiting Active NIFEdipine (PROCARDIA) 10 MG capsule Take 1 Cap by mouth every 4 hours as needed. 30 Cap 1 08/29/2011 07/31/2024 Discontinued( Tx Complete) Active Problems Problem Noted Date Diagnosed Date Ambiguous genitalia 08/29/2011 Supervision of high-risk 08/29/2011 ADHD (attention deficit hyperactivity disorder) 01/23/2008 Estimated Date of Delivery Comme nts Yes 12/15/2024 Based on Ultraso und Encounters Date Type Department Care Team Description 07/31/2024 12:59 PM CDT - 07/31/2024 11:59 PM CDT Hospital Encounter [facility] Maternal & Care [address] [place] [id number] Katina Ewing MD Discharge Disposition: Home or Self Care 07/31/2024 12:59 PM CDT - 07/31/2024 11:59 PM CDT Hospital Encounter [facility] & Care [address] [place] [phone] Katina Ewing MD Discharge Disposition: Home or Self Care from Last 3 Months Family History Medical History Relation Name Comments Hypertension Maternal Grandfather Relation Name Status Comments Maternal Grandfather Social History Tobacco Use Types Packs/Day Years Used Date Smoking Tobacco: Never Smokeless Tobacco: Never Alcohol Use Standard Drinks/Week Comments No 0 (1 standard drink = 0.6 oz pur e alcohol) Estimated Date of Delivery Comme nts Yes 12/15/2024 Based on Ultraso und Sex and Gender Information Value Date Recorded Sex Assigned at Not on file Gender Identity Not on file Sexual Orientation Not on file Last Filed Vital Signs Vital Sign Reading Time Taken Comments Blood Pressure 127/70 07/31/2024 2:00 PM CDT Pulse 95 07/31/2024 2:00 PM CDT Temperature 36.6 C (97.8 F) 08/29/2011 6:38 AM CDT Respiratory Rate 18 08/29/2011 6:38 AM CDT Oxygen Saturation 97% 12/14/2009 12:05 PM CDT Inhaled Oxygen Concentration 100% 12/14/2009 8 :35 AM CDT Weight 99.3 kg (219 lb) 07/31/2024 2:00 PM CDT Height 165.1 cm (5' 5 ) 07/31/2024 2:00 PM CDT Body Mass Index 36.44 07/31/2024 2:00 PM CDT Plan of Treatment Upcoming Encounters Date Type Department Care Team (Late st Contact Info) Description 08/27/2024 1:00 PM CDT Appointment [facility] [address] [place], [place] [phone] Health Maintenance Due Date Last Done Comments PAP SMEAR 1993 HEPATITIS C SCREENING 01/02/2011 DTAP/TDAP/TD VACCINES (1 - Tdap) 01/07/2012 HEPATITIS B VACCINE (1 of 3 - 19+ 3-dose series) 01/07/2012 COVID-19 VACCINE (3 - 2023-2 5 season) 2024 08/06/2021, 07/16/2021 INFLUENZA VACCINE (#1) 2024 01/24/2020 DEPRESSION SCREENING 05/08/2024 ZOSTER VACCINE (1 of 2) 2043 HIV SCREENING Completed 05/23/2024 HIB VACCINE Aged Out No longer eligi [...] on patient's age to complete this topic Respiratory Syncytial Virus (RSV) Vaccine Pt: or over 60 yrs (No Doses Required) Completed Procedures Procedure Name Priority Date/Time Associated Diagnosis Comments SONOGRAM - COMPLETE Routine 07/31/2024 1 2:55 PM CDT Dichorionic diamniotic twin in second trimester History of pre-eclampsia in prior , currently Anxiety and depression History of panic attacks from Last 3 Months Results * SONOGRAM - COMPLETE (07/31/2024 12:55 PM CDT) Linked Results Indication ======== DA/DC Twins History of , Preeclampsia, Obesity in , Class II History ====== OB History 4. Para 3 [id number] 1. live 2011. Gest. age 41 w + 0 d. Weight 3,515 g. Sex of child: female. Details: Vaginal delivery 2. live 2014. Gest. age 40 w + 0 d. Weight 4,309 g. Sex of child: female. Details: Vaginal delivery 3. live 2021. Gest. age 37 w + 0 d. Weight 4,224 g. Sex of child: male. Details: Vaginal delivery; Pre-Eclampsia Fetus A: Lab Tests Test Date Result NIPT Low risk, Female Fetus B: Lab Tests Test Date Result NIPT Low risk, Female Maternal Assessment Physical Exam Height 160 cm, 5 ft 3 in. Weight 99 kg, 219 lb. Initial weight 94 kg, 207 lb. BMI 38.79 kg/m . Initial BMI 36.67 kg/m . Weight gain 5 kg, 12 lb Method ====== Transabdominal and transvaginal ultrasound. View: Sufficient ========= Twin . Number of fetuses: 2. Dichorionic-diamnio tic Dating ====== Date Details Gest. age BETTY Stated BETTY 19 w + 6 d 12/19/2024 U/S Fetus A 07/31/2024 based upon AC, BPD, Femur, HC 20 w + 5 d 12/13/2024 U/S Fetus B based upon AC, BPD, Femur, HC 20 w + 1 d 12/17/2024 Assigned dating based on stated BETTY, selected on 07/31/2024 19 w + 6 d 12/19/2024 Fetus A: General Evaluation Cardiac activity present. FHR 161 bpm. Presentation: breech left Placenta: Placental site: anterior Umbilical cord: Cord vessels: 3 vessel cord. Insertion site: normal insertion Amniotic fluid: Amount of AF: normal. MVP 3.8 cm Fetus B: General Evaluation Cardiac activity present. FHR 157 bpm. Presentation: cephalic right Placenta: Placental site: posterior Umbilical cord: Cord vessels: 3 vessel cord. Insertion site: normal insertion Amniotic fluid: Amount of AF: normal. MVP 4.3 cm Fetus A: Biometry BPD 48.8 mm 20w 5d 84% Hadlock HC 181.3 mm 20w 4d 73% Hadlock Cerebellum tr 19.1 mm 17% [place] Nuchal fold 5.2 mm AC 157.3 mm 20w 6d 77% Hadlock Femur 34.6 mm 20w 6d 78% Hadlock Humerus 32.3 mm 20w 6d 86% Robinson HC / AC 1.15 -/- 39% Hadlock Weight Calculation: EFW 381 g 91% Hadlock EFW (lb,oz) 0 lb 13 oz EFW by Hadlock ([id number]) EFW discordance 6.6 % accelerated Fetus B: Biometry BPD 46.1 mm 20w 0d 53% Hadlock HC 165.1 mm 19w 2d 16% Hadlock Cerebellum tr 21.8 mm 95% [place] AC 156.8 mm 20w 6d 76% Hadlock Femur 33.2 mm 20w 3d 62% Hadlock Humerus 30.5 mm 20w 0d 63% Robinson HC / AC 1.05 -/- 2% Hadlock Weight Calculation: EFW 356 g 78% Hadlock EFW (lb,oz) 0 lb 13 oz EFW by Hadlock ([id number]) EFW discordance 6.6 % appropriate Fetus A: Growth Overview Exam date GA BPD (mm) HC (mm) AC (mm) FL (mm) HL (mm) EFW (g) 07/31/2024 19w 6d 48.8 84% 181.3 73% 157.3 77% 34.6 78% 32.3 86% 381 91% Fetus B: Growth Overview Exam date GA BPD (mm) HC (mm) AC (mm) FL (mm) HL (mm) EFW (g) 07/31/2024 19w 6d 46.1 53% 165.1 16% 156.8 76% 33.2 62% 30.5 63% 356 78% Fetus A: Anatomy The following structures appear normal: Head / Neck Cranium. Lateral ventricles. Choroid plexus. Midline falx. Cavum septi pellucidi. Cerebellum. Cisterna magna. Thalami. Nuchal fold. Face Orbits. Heart / Thorax Situs. Ductal arch view. Right lung. Left lung. Abdomen Cord insertion. Stomach. Kidneys. Bladder. Genitals. Extremities / Skeleton Left hand. Legs. The following structures could not be adequately visualized: Face Lips. Profile. Nose. Heart / Thorax 4-chamber view. RVOT view. LVOT view. 3-vessel view. 3-bekscj-mrsqwnw view. Aortic arch view. Bicaval view. Great vessels. Diaphragm. Spine Cervical spine. Thoracic spine. Lumbar spine. Sacral spine. Extremities / Skeleton Arms. Right hand. Feet. sex: female. Fetus B: Anatomy The following structures appear normal: Head / Neck Cranium. Lateral ventricles. Choroid plexus. Midline falx. Cavum septi pellucidi. Cerebellum. Cisterna magna. Thalami. Face Lips. Nose. Heart / Thorax RVOT view. Situs. Ductal arch view. Right lung. Left lung. Abdomen Cord insertion. Stomach. Kidneys. Bladder. Genitals. Extremities / Skeleton Arms. Left hand. Legs. Feet. The following structures could not be adequately visualized: Head / Neck Nuchal fold. Face Profile. Orbits. Heart / Thorax 4-chamber view. LVOT view. 3-vessel view. 6-zwtoeh-pospkvm view. Aortic arch view. Bicaval view. Interventricular septum. Great vessels. Diaphragm. Spine Cervical spine. Thoracic spine. Lumbar spine. Sacral spine. Extremities / Skeleton Right hand. sex: female. Maternal Structures Cervix reassuring Approach - Transvaginal: Cervical length 5.10 cm Right Ovary Not visualized Appearance: Adnexa appears normal Left Ovary Not visualized Appearance: Adnexa appears normal No placenta previa Impression ========= Dichorionic-diamnio tic, live, intrauterine at 19w 6d size is accelerated for twin A and appropriate for twin B Amniotic fluid volume: normal for twin A and normal for twin B Transvaginal cervical length is normal range measuring 5.1 cm No major malformations were seen within the limitations of ultrasound Follow-up ======== Repeat ultrasound evaluation of growth and anatomy not well visualized is recommended in 4 weeks. Thank you for allowing us the opportunity to see your patient in consultation. Coding ====== Procedures 81783: US Preg Uterus Detailed 60435: US Preg Uterus Detailed, Additional Gest 55316: US Preg Uterus Transvaginal [employer] PACS Anatomical Region Laterality Modality Other 07/31/2024 12:5 5 PM CDT Cindi Bryant CHECK CLERK-OBGYN SPECIALIST M ORDERABLES from Last 3 Months Care Teams Manufacturing Scheduler Relationship Specialty Start Date End Date Scooter White DO PCP - General 03/16/22
--- OUTSIDE RECORDS SUMMARY | 2024-08-08 09:17 | XMS_ITS | Encounter Summary ---
Author Organization [facility] Address [address] [place] [address] Phone Care Team Providers Care Test Manager Name Role Phone Manda Singh MD Unavailable [phone] Robby Torres Primary Care Provider [phone] Scooter White DO Primary Care Provider Malik Cates MD Unavailable Ulices Marino MD Unavailable Yon Gutierrez MD Primary Care Provider Encounter Details Date Type Department Care Team (Late st Contact Info) Description 04/09/2020 Telephone [facility] [address] [address] Saud Dalton MD [address] [place] [phone] Social History Tobacco Use Types Packs/Day [...] COVID-19? No / Unsure 03/20/2020 6:06 AM BULL FIDDLE PLAYER documented as of this encounter Miscellaneous Notes * Telephone Encounter - Mahnaz Alaniz - 04/09/2020 2:50 PM CST Patient no showed her appointment, left voice message to call the office to reschedule. Sent out a no show letter. FIDDLE PLAYER documented in this encounter Plan of Treatment Upcoming Encounters Date Type Department Care Team (Late st Contact Info) Description 09/26/2024 1:00 PM CDT Office Visit [facility] [address] [place] [address] Georgina Fontenot APRN, SOCIAL WORK JOB [employer]ITLES [address] [place] [address] documented as of this encounter Visit Diagnoses Not on filedocumented in this encounter Additional Health Concerns Assessment Noted Time PHQ-9 Depression Total Score: 0 02/11/20 20 12:57 PM CDT documented as of this encounter Care Teams Test Manager Relationship Specialty Start Date End Date Robby Torres [address] [place] [address] PCP - General Family Medicine 02/11/20 03/16/21 Scooter White DO [facility] [place] [address] PCP - General Internal Medicine 03/17/21 06/22/23 Yon Gutierrez MD 2 [facility] [address] [place] [address] PCP - General Family Medicine 06/23/23 Manda Singh MD Obstetrics & Gynecology 02/11/20 Malik Cates MD [address] [phone] Consulting Physician Endocrinology 12/13/21 Ulices Marino MD [address] [address] Consulting Physician Colon and Rectal Surgery 07/06/22 documented as of this encounter
--- OUTSIDE RECORDS SUMMARY | 2024-08-08 09:17 | XMS_ITS | Encounter Summary ---
Author Organization [facility] Address [address] [place] [address] Care Team Providers Care Senior Account Representative Name Role Phone Scooter White DO Primary Care Provider Encounter Details Date Type Department Care Team (Late Contact Info) Description 11/06/2018 Lab Requisition [facility] Care Pathology Lab [address] [place] [address] Cindi Herrera MD [address] [place] [address] Enlarged lymph nodes Social History Tobacco Use [...] Department Care Team (Late Contact Info) Description 08/27/2024 1:00 PM CDT Appointment [facility] M[facility] & Care [address] [place] [phone] documented as of this encounter Procedures Procedure Name Priority Date/Time Associated Diagnosis Comments FLOW CYTOMETRY TISSUE PANEL Routine 11/05/2018 11:02 AM CDT Enlarged lymph nodes documented in this encounter Results * FLOW CYTOMETRY TISSUE PANEL (11/05/2018 11:02 AM CDT) Case Report Flow Cytometry Case: [id number] Authorizing Provider: Cindi Herrera MD Collected: 11/05/2018 11:02 AM Pathologist: Alexa Weinberg MD Received: 11/06/2018 02:01 PM Specimen: Cervical Lymph Node , Left 5:33 PM CDT [facility] PATHOLOGY LAB Final Diagnosis Lymph node, left cervical, flow cytometric immunophenotypic analysis: - No evidence of non-Hodgkin lymphoma. - See interpretation. 5:33 PM [facility] Flow Cytometry Interpretation The [...] the flow cytometry specimen is reviewed for director quality assurance purposes. In summary, the left cervical lymph node specimen shows no evidence of a non-Hodgkin lymphoma. Correlation with additional clinical information and the concurrent biopsy specimen is required. KR 9 5:33 PM T [facility] PATH[facility] Flow Cytometry Results Differential Result Comment Flow Cell Count /uL [id number] Total Viability % 86.0 Lymphocytes % 97 Dim CD45 Region % 0 Monocytes % 1 Granulocytes % 1 9 5:33 PM CDT [facility] Reason for test Enlarged lymph nodes 785.6 9 5:33 PM T [facility] Client Specimen ID # [id number] 9 5:33 PM [facility] Number of markers 16 were performed. A Flow CD3 A Flow CD10 A Flow CD20 A Flow CD23 A Flow CD2 A Flow CD4 A Flow CD1a A Flow CD5 A Flow CD19 A Flow CD34 A Flow CD45 A Flow CD7 A Flow CD8 A Flow CD30 A Benoit+CD19+ A Lambda+CD19+ 9 5:33 PM CDT [facility] Disclaimer Test performed at [facility], [address] [place], [place], [address]. *The established laboratory minimum viability is 70%. [...] complexity clinical testing. 9 5:33 PM CDT [facility] Embedded Images 9 5:33 PM CDT [facility] Pathology/Cytolo gy ENTIRE CERVICAL LYMPH NODE / Unknown 11/05/2018 11:02 AM CDT 11/06/2018 2:01 PM CDT Cindi Herrera MD LAB - PATHOLOGY/CYTO LOGY ORDERABLES [facility] PATH[facility] [address] [facility]. [address] [phone] documented in this encounter Visit Diagnoses Diagnosis Enlarged lymph nodes Enlargement of lymph nodes documented in this encounter Care Teams Senior Account Representative Relationship Specialty Start Date End Date Scooter White DO PCP - General 03/16/22 documented as of this encounter
--- OUTSIDE RECORDS SUMMARY | 2024-08-08 09:17 | XMS_ITS | Clinical Summary ---
Author Organization [facility] Address [address] [facility], [address] [address] Phone Care Team Providers Care Clinical Trials Data Coordinator Name Role Phone Manda Singh MD Unavailable [phone] Malik Cates MD Unavailable Ulices Marino [...] 97.5 kg (215 lb) 04/19/2023 8:07 AM RELAY MAN Height 165.1 cm (5' 5 ) 04/19/2023 8:07 AM RELAY MAN Body Mass Index 35.78 04/19/2023 8:07 AM RELAY MAN Plan of Treatment Upcoming Encounters Date Type Department Care Team (Late st Contact Info) Description 09/26/2024 1:00 PM CDT Office Visit [facility] - [place] [address] [place] [address] Georgina Fontenot, MALE INFERTILITY SPECIALIST, RENEWABLE ENERGY ENGINEER [address] [place] [address] Health Maintenance Due Date Last Done Comments [...] this topic Medical Devices Implanted Type Area Business Management Manager Device Identifier Shelf Expiration Date Model / Serial / Lot Tube Ventilation 5mm [employer] - [id number] Implanted:Qty: 1 on 11/05/2018 by Jordon Deng MD at [facility] IMPLANT Left: Ear [employer] 04/06/2020 510-122 / 510-122 / [id number] Description:Ear tubes came f rom the same package Tube Ventilation 5mm [employer] Triune - [id number] Implanted:Qty: 1 on 11/05/2018 by Jordon Deng MD at [facility] IMPLANT Right: Ear [employer] 04/06/2020 510-122 / 510-122 / [id number] Description:Ear tubes came f rom the same package Insurance * Guarantor: [facility] Account Type Relation to Patient Date of Phone Billing Address Institutional Other [address] [place] [address] Care Teams Clinical Trials Data Coordinator Relationship Specialty Start Date End Date Yon Gutierrez MD 2 [facility] [address] [place] [address] PCP - General Family Medicine 06/23/23 Manda Singh MD Obstetrics & Gynecology 02/11/20 Malik Cates MD [address] [phone] Consulting Physician Endocrinology 12/13/21 Ulices Marino MD [address] [address] Consulting Physician Colon and Rectal Surgery 07/06/22
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
--- OUTSIDE RECORDS SUMMARY | 2024-08-08 09:17 | XMS_ITS | Encounter Summary ---
Author Organization [facility] Address [address] [place] [address] Phone Care Team Providers Care Dean Of Students Name Role Phone Manda Singh MD Unavailable [phone] Scooter White DO Primary Care Provider Malik Cates MD Unavailable Ulices Marino MD Unavailable Yon Gutierrez MD Primary Care Provider Encounter Details Date Type Department Care Team (Late st Contact Info) Description 07/26/[address] [facility] Laboratory Services [address] [place] [address] Edita Garza, CORE ANALYSIS OPERATOR, RUBBER COMPOUNDER FORMULATOR [address] [place] [address] Encounter for pre-employment examination Social History Tobacco [...] 09/26/2024 1:00 PM CDT Office Visit [facility] - Neurology - [place] [address] [place] [address] Georgina Fontenot, CORE ANALYSIS OPERATOR, CARTON MAKER [address] [place] [address] documented as of this encounter Procedures Procedure [...] 2.7 >=1.1 AI 07/26/2021 10:00 PM CDT [facility] Blood No Phlebotomy Charged / Unknown 07/26/2021 9:00 AM CDT 07/26/2021 2:15 PM CDT Narrative [facility] - 07/26/2021 10:00 PM CDT <= 0.8 Negative. No detectable VZV IgG antibody. 0.9 - 1.0 Equivocal >=1.1 Positive Antibody testing was performed by multiplex flow immunoassay on the BioPlex platform. Edita Garza CORE ANALYSIS OPERATOR, RUBBER COMPOUNDER FORMULATOR IMMUNOLOGY ORDERABL ES Final Result Performing Organization Address [facility] Co de Phone Number [facility] [address] [place] [address], [place] * (ABNORMAL) RUBEOLA (MEASLES) IGG (07/26/2021 9:00 AM CDT) MEASLES AB IGG 0.7(L) >=1.1 AI 07/26/2021 10:00 PM CDT [facility] Blood No Phlebotomy Charged / Unknown 07/26/2021 9:00 AM CDT 07/26/2021 2:15 PM CDT Narrative [facility] - 07/26/2021 10:00 PM CDT <= 0.8 Negative. No detectable Measles IgG antibody. 0.9 - 1.0 Equivocal >=1.1 Positive Antibody testing was performed by multiplex flow immunoassay on the BioPlex platform. us Edita L Behrends CORE ANALYSIS OPERATOR, RUBBER COMPOUNDER FORMULATOR IMMUNOLOGY ORDERABL ES Final Result Performing Organization Address [facility] Co de Phone Number [facility] [address] [place] [address], [place] * RUBELLA IMMUNITY IGG (07/26/2021 9:00 AM CDT) [facility] Immune Immune, Invalid 07/26/2021 10:00 PM CDT [facility] Blood No Phlebotomy Charged / Unknown 07/26/2021 9:00 AM CDT 07/26/2021 2:15 PM CDT Narrative [facility] - 07/26/2021 10:00 PM CDT Antibody testing was performed by multiplex flow immunoassay on the BioPlex platform. us Edita L Behrenjohn CORE ANALYSIS OPERATOR, RUBBER COMPOUNDER FORMULATOR CHEMISTRY ORDERABLE S Final Result Performing Organization Address [facility] de Phone Number [facility] [address] [place] [address], [place] * MUMPS IGG (07/26/2021 9:00 AM CDT) Pathologist [facility] Mumps Ab IgG 1.2 >=1.1 AI 07/26/2021 10:00 PM CDT [facility] Blood No Phlebotomy Charged / Unknown 07/26/2021 9:00 AM CDT 07/26/2021 2:15 PM CDT Narrative [facility] - 07/26/2021 10:00 PM CDT <= 0.8 Negative. No detectable Mumps IgG antibody. 0.9 - 1.0 Equivocal >=1.1 Positive Antibody testing was performed by multiplex flow immunoassay on the BioPlex platform. us Editahenry Garza CORE ANALYSIS OPERATOR, RUBBER COMPOUNDER FORMULATOR IMMUNOLOGY ORDERABL ES Final Result Performing Organization Address [facility] Co de Phone Number [facility] [address] [place] [address], [place] * QUANTIFERON-TB GOLD PLUS (07/26/2021 9:00 AM CDT) Pathologist [facility] NIL CONTROL 0.04 <8.01 IU/mL 07/28/2021 1:01 PM CDT [facility] TB ANTIGEN 1 0.00 <0.35 IU/mL 07/28/2021 1:01 PM CDT [facility] TB ANTIGEN 2 0.00 <0.35 IU/mL 07/28/2021 1:01 PM CDT [facility] MITOGEN CONTROL 9.64 >0.49 IU/mL 07/29/19 1:01 PM CDT [facility] INTEPRETATION TB NEGATIVE NEGATIVE, NEGATIVE (TB antigen response less than 25% of internal negative control value) 07/28/2021 1:01 PM CDT [facility] Comment:No immune response t o Mycobacterium tuberculosis antigens was noted. M. tuberculosis infection unlikely. Blood No Phlebotomy Charged / Unknown 07/26/2021 9:00 AM CDT 07/26/2021 2:15 PM CDT Narrative [facility] - 07/28/2021 1:01 PM CDT [...] and HIV-infected or otherwise immunocompromised individuals. https://www.cdc.gov/tb/publications/guidelines/testing.htm Edita Garza APRN, RUBBER COMPOUNDER FORMULATOR IMMUNOLOGY ORDERABL ES Final Result Performing Organization Address [facility] de Phone Number [facility] [address] [place] [address], [place] * HEPATITIS B SURFACE ANTIBODY (HBSAB) (07/26/2021 9:00 AM CDT) HEPATITIS B SURFACE ANTIBODY 8.33 mIU/mL [facility] ARCH [id number] B 07/27/2021 12:02 AM CDT [facility] Comment: Grayzone Range: >=8.00 to <=12.00 The immune status of the individual should be further assessed considering other factors, such as clinical status, follow-up testing, associated risk factors and the use of additional diagnostic information. Blood No Phlebotomy Charged / Unknown 07/26/2021 9:00 AM CDT 07/26/2021 2:15 PM CDT Edita Garza APRN, RUBBER COMPOUNDER FORMULATOR CHEMISTRY ORDERABLE S Final Result Performing Organization Address [facility] de Phone Number [facility] [address] [place] [address], [place] documented in this encounter Visit Diagnoses Diagnosis Encounter for pre-employment examination Health examination of defined subpopulation documented in this encounter Additional Health Concerns Assessment Noted Time PHQ-9 Depression Total Score: 0 02/11/20 20 12:57 PM CDT documented as of this encounter Care Teams Dean Of Students Relationship Specialty Start Date End Date Scooter White DO [facility] [facility] [place] [address] PCP - General Internal Medicine 03/17/21 06/22/23 Yon Gutierrez MD 2 [facility] [address] [place] [address] PCP - General Family Medicine 06/23/23 Manda Singh MD Obstetrics & Gynecology 02/11/20 Malik Cates MD [address] [address] Consulting Physician Endocrinology 12/13/21 Ulices Marino MD [address] [address] Consulting Physician Colon and Rectal Surgery 07/06/22 documented as of this encounter
--- OUTSIDE RECORDS SUMMARY | 2024-08-08 09:17 | XMS_ITS | Encounter Summary ---
Author Organization [facility] Address [address] [place] [address] Phone Care Team Providers Care Tensile Tester Name Role Phone Manda Singh MD Unavailable [phone] Robby Torres Primary Care Provider Scooter White DO Primary Care Provider Malik Cates MD Unavailable Ulices Marino MD Unavailable Yon Gutierrez MD Primary Care Provider Encounter Details Date Type Department Care Team (Late st Contact Info) Description 03/09/2020 Transcribe Orders [facility] Preop/Pacu II [address] [place] [id number] Walter Blake MD [address] [place] [address] Preop testing (Primary Dx) Social History Tobacco [...] COVID-19? Unable to assess 03/10/2020 1:32 PM LINE CONSTRUCTION SUPERINTENDENT documented as of this encounter Plan of Treatment Upcoming Encounters Date Type Department Care Team (Late st Contact Info) Description 09/26/2024 1:00 PM CDT Office Visit [facility] - Neurology - [place] [address] [place] [address] Georgina Fontenot APRN, MDS COORDINATOR [address] [place] [address] documented as of this encounter Visit Diagnoses Diagnosis Preop testing- Primary Preoperative examination, unspecified documented in this encounter Additional Health Concerns Infection Onset Date Last Indicated Resolved Time COVID - 19 03/10/2020 03/10/2020 03/16/2020 11:4 0 AM LINE CONSTRUCTION SUPERINTENDENT Assessment Noted Time PHQ-9 Depression Total Score: 0 02/11/20 20 12:57 PM CDT documented as of this encounter Care Teams Tensile Tester Relationship Specialty Start Date End Date Robby Torres [address] [place] [address] PCP - General Family Medicine 02/11/20 03/16/21 Scooter White DO [address] [place] [address] PCP - General Internal Medicine 03/17/21 06/22/23 Yon Gutierrez MD 2 [facility] [place] [address] PCP - General Family Medicine 06/23/23 Manda Singh MD Obstetrics & Gynecology 02/11/20 Malik Cates MD [address] [address] Consulting Physician Endocrinology 12/13/21 Ulices Marino MD #[address] [address] Consulting Physician Colon and Rectal Surgery 07/06/22 documented as of this encounter
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
--- OUTSIDE RECORDS SUMMARY | 2024-08-08 09:18 | XMS_ITS | Continuity of Care Document ---
Author Organization [facility] Address [address] [place] [address] [address] [place] [address] Phone Care Team Providers Care Lye Bath Operator Name Role Phone Carol OD OD, [...] - Active Procedures Procedure Date OFFICE/OUTPATIENT VISIT, [facility] Comp cont lens eval No Charge Visit N/C Glasses Check Advance Directives Directive Yes / No Effective Date File Name No Information Encounters Encounter Description Practice Location Reason(s) For Visit Diagnoses Date Provider Providers Copied on Encounter [facility], [address] [place] [address] [address], [place], [place], [id number], tel:[phone] OPH CONSULT KENTRELL LOPEZ No Information 3 Carol OD Georgina. [address], [address], [place], [place], [address], [place]. tel:[phone] Referring Provider: Georgina Medina OD, [address], [place], [address] . tel:[phone] OFFICE/OUTPA TIENT VISIT, [facility], [address] [place] [address], [id number], tel:[phone] OPH CONSULT KENTRELL LOPEZ blurry vision (chief complaint) dry eye (chief complaint) Krystin's thyroiditisMyo roger, bilateralTear film insufficiency of bilateral lacrimal glandsOther vitreous opacities, bilateralCorne al neovasculariza tion of both eyes 2 Derheimer OD Georgina. [address], [address] [place] [address], [id number], [place]. tel:[phone] Referring Provider: Scooter White, [address], [place], [address]. tel:[phone] [facility], [address] [place] [address], [id number], tel:[phone] Optical Services KENTRELL LOPEZ No Information 6 Derheimer OD Georgina. [address], [address] [place] [address], [id number], [place]. tel:[phone] Referring Provider: Georgina Medina OD, [address], [place], [address] . tel:[phone] [facility], [address] [place] [address], [id number], tel:[phone] OPH CONSULT KENTRELL LOPEZ blurry vision (chief complaint) Myopia, bilateral 6 Derheimer OD Georgina. [address], [place], [place], [id number], [place]. tel:[phone] Referring Provider: Georgina Medina OD, [address], [place], [address] . tel:[phone] [facility], [address] [place] [address], [id number], tel:[phone] OPH CONSULT KENTRELL LOPEZ No Information 1 Beth Cohenl. [address], [place], [place], [address], [place]. tel:[phone] Family History Family Member Type Diagnosis Age At Onset Problem No family history of Diabete s mellitus Problem No family history of Macular degeneration Problem No family history of Hyperte nsion Problem No family history of Glaucom a Payers Payer name Insurance type Covered green party ID Authoriza tion(s) No Information Social [...]
--- OUTSIDE RECORDS SUMMARY | 2024-08-08 09:18 | XMS_ITS | Continuity of Care Document ---
Author Organization [facility] Address [address] [place] [address] [place] [address] Phone Care Team Providers Care Operations Staff Specialist Security Name Role Phone Robby Torres MD Unavailable [...] Diagnoses Date Provider Providers Copied on Encounter [facility], [address] [facility] [place], [id number], [place] tel:[phone] [facility] No Information 1 Brian Bustamante. [address], [place], [place], [id number] , [place]. tel:[phone] [facility], [address], [place], [place], [address], [place] tel:[phone] [facility] No Information 0 Brian Bustamante. [address], [place], [place], [address] , [place]. tel:[phone] OFFICE/OUTPA TIENT VISIT, [facility], [address], [place], [place], [id number], [place] tel:[phone] [facility] anxiety1 (chief complaint) Generalized Anxiety DisorderHypothyroid ism 0 Brian Bustamante. [address], [place], [place], [id number] , [place]. tel:[phone] Referring Provider: Robby Torres [address], [place], [place], [id number]. tel:[phone] OFFICE/OUTPA TIENT VISIT, [facility], [address], [place], [place], [id number], [place] tel:[phone] [facility] anxiety1 (chief complaint) Generalized Anxiety DisorderGoiter 0 Brian Bustamante. [address], [place], [place], [address] , [place]. tel:[phone] Referring Provider: Robby Torres [address], [place], [place], [address]. tel:[phone] OFFICE/OUTPA TIENT VISIT, [facility], [address], [place], [place], [address], [place] tel:[phone] [facility] thyroid nodule1 (chief complaint) anxiety1 (chief complaint) GoiterGeneralized Anxiety Disorder 0 Brian Menendez [address], [place], [place], [address] , [place]. tel:[phone] Referring Provider: Gissel [address], [place], [place], [address]. tel:[phone] OFFICE/OUTPA TIENT VISIT, [facility], [address], [place], [place], [address], [place] tel:[phone] [facility] anxiety1 (chief complaint) iron1 (chief complaint) thyroid1 (chief complaint) Disorder of iron metabolism, unspecifiedGoiterGe neralized Anxiety Disorder Lonnie-0 0 Brian Bustamante. [address], [place], [place], [id number] , [place]. [phone] Referring Provider: Gissel [address], [place], [place], [address]. tel:[phone] OFFICE/OUTPA TIENT VISIT, [facility], [address], [place], [place], [address], [place] tel:[phone] [facility] ankle pain1 (chief complaint) fatigue1 (chief complaint) thyroid1 (chief complaint) anemia1 (chief complaint) Pain in right ankleFatigueAnemiaG oiter 0 Brian Bustamante. [address], [place], [place], [address] , [place]. tel:[phone] Referring Provider: Gissel Banks [address], [place], [place], [address]. tel:[phone] OFFICE/OUTPA TIENT VISIT, [facility], [address], [place], [place], [address], [place] tel:[phone] [facility] rash1 (chief complaint) Allergic contact dermatitis due to plants, except food Aug- 0 Brian Bustamante. [address], [place], [place], [address] , [place]. [phone] Referring Provider: Gissel [address], [place], [place], [address]. tel:[phone] OFFICE/OUTPA TIENT VISIT, [facility], [address], [place], [place], [address], tel:[phone] [facility] thyroid1 (chief complaint) ferritin1 (chief complaint) IgA (chief complaint) fatigue1 (chief complaint) GoiterDisorder of iron metabolism, unspecifiedVitamin D deficiency, unspecifiedRaised level of immunoglobulinAnemi aH. pylori as the cause of diseases classified elsewhereFatigue 0 Brian Bustamante. [address] [facility] [place], [address] , . tel:[phone] Referring Provider: Gissel Banks [place], [place], [address]. tel:[phone] PREV VISIT, NEW, AGE 18-39 [facility], [address] [place] [address] [facility], [address], tel:[phone] [facility] PHysical (chief complaint) Encntr for general adult medical exam w/o abnormal findings 0 Brian Bustamante. [address], [facility] [address], [place], [place], [address] , [place]. tel:[phone] Referring Provider: Robby Torres [address] [place] [address], [id number]. tel:[phone] Family History Family Member Type Diagnosis Age At Onset Brother Problem Alive and well Father Problem (finding) Alive and well Mother Problem (finding) Thyroid disorder Payers Payer name Insurance type Covered democrat [...] COLONOSCOPY AND BIOPSY ordered Referral Referred To: Joe Fontana [id number] [facility] [place] [facility]
[address] [place], [place] [id number] Ordered: Referrals: Allopathic & Osteopathic Physicians : Internal Medicine : Endocrinology, Diabetes & Metabolism. Joe Fontana. Evaluate and treat ordered History Of Present [...] then resolves. Pt denies any acute symptoms thyroid1 Pt has mild thyr omegaly with high TPO Pt states that she tried to contact Dr. ring multiple times without luck. Pt denies any dysphagia iron1 pt has high iron and high ferritin and high IGA Pt did see hematology and was told that above maybe due to iron infusion and she supposes to do lab in 6 months and recheck anxiety1 Pt c/o feeling e motional with [...] also feels short tempered with irritability also. anemia1 Pt has history o f mild anemia and high ferritin and high iron Pt has keira with hematology later this week. Pt has not heard from GI yet thyroid1 Pt has thyromega ly and high TPO. Pt denies any dysphagia. 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
--- OUTSIDE RECORDS SUMMARY | 2024-08-08 09:18 | XMS_ITS | Data Portability ---
Author Organization [facility] Address [address] [place] [address] [place] [address] Care Team Providers Care Stonecutter Hand Name Role Phone LAIS HWANG Primary Care Provider [facility] EDUIN HAMMONDS Net Ui Developer [phone] JILLIAN LAO Primary Care Provider Assessment Encounter Date Assessment Date Assessment LastModified by Organization Details LastModified Time 07/03/2024 07/03/2024 Patient is _15__weeks . Discussed plan. Not available 07/03/2024 09:50:04 07/31/2024 07/31/2024 Patient is _19__weeks . Discussed plan. [email or web address] Not available 07/31/2024 18:07:16 Plan of Treatment Reminders Order Date Submit Date Provider Last Modified By Organization Details Last Modified Time Details Appointments OB ROUTINE 2024 01:15P Kezia Bryant CNM Not available Not available Not available Lab None recorded. Referral None recorded. Procedures None recorded. Surgeries None recorded. Imaging US, obstetric , limited 2024 025 [email or web address], [address], [place], [address], 07/01/2024 21:14:59 Medication Orders Protonix 40 mg tablet,de layed release 2024 025 [id number], [address], [place], [place], [phone], 07/31/2024 17:57:39 triamcino lone acetonide 0.5 % topical cream 2024 025 [id number], [address] , [place], [place], [phone], 07/08/2024 11:23:25 Patient TargetsNo targets recorded. Patient InstructionsNo instructions recorded. Reason for Referral None Reported. Results Created Date Observation Date Name Description Value Unit Range Abnormal Flag Note LastModifiedBy Organization Detail LastModifiedTime 06/04/19 25 06/04/2024 [UNIT Y] PAPO Renee sickle cell disease/beta -thalassemia /hemoglobino pathies carrier screen NEGATI VE normal Not Available [facility] [address], [place], [address], 06/04/2024 11:00:13 06/04/19 25 06/04/2024 [UNIT Y] PAPO Renee alpha-thalas semia carrier screen NEGATI VE normal Not Available [facility] [address], [place], [address], 06/04/2024 11:00:13 06/04/19 25 06/04/2024 [UNIT Y] PAPO Renee cystic fibrosis carrier screen NEGATI VE normal Not Available [facility] [address], [place], [address], 06/04/2024 11:00:13 06/04/19 25 06/04/2024 [UNIT Y] PAPO Renee spinal muscular atrophy carrier screen NEGATI VE 2 SMN1 copies , SNP not presen t normal Not Available [facility] [address], [place], [address], 06/04/2024 11:00:13 06/04/19 25 06/04/2024 [UNIT Y] PAPO Renee for detailed report, see pdf See PDF normal Not Available [facility] [address], [place], [address], 06/04/2024 11:00:13 06/05/19 25 06/05/2024 CULTU RE: URINE result report SEE RESULT S BELOW Test: Cultu re: Urine Speci men Sourc e: Urine - Clean Catch Speci men Type: Urine Speci men Date: 2024 1611 Resul t Date: 2024 2232 Resul t Statu s: Final resul t Abnor mal: No Resul ting Lab: [facility] [address] [facility] [address] Tel: CULTU RE ----- ----- ----- --- No growt h in 1 day (dete ction level of 10,00 0 colon ies / ml.) Not Available [facility] (Lab) [address] [facility], [place], [address], 06/06/2024 23:35:51 07/09/19 25 07/08/2024 CULTU RE: URINE result report SEE RESULT S BELOW Test: Cultu re: Urine Speci men Sourc e: Urine - Clean Catch Speci men Type: Urine Speci men Date: 025 1357 Resul t Date: 025 0431 Resul t Statu s: Final resul t Abnor mal: No Resul ting Lab: [facility] [address] [facility] [address] Tel: CULTU RE ----- ----- ----- --- No growt h in 1 day (dete ction level of 10,00 0 colon ies / ml.) Not Available [facility] (Lab) [address] [facility], [place], [address], 07/10/2024 05:36:59 06/03/1906/03/2024 US, obste tric, nucha l trans lucen cy No observ ation record ed. [email or web address] [address], [place], [address], 06/03/2024 18:00:41 06/03/19 25 06/03/2024 US, obste tric, nucha l trans lucen cy, addit ional gesta tion No observ ation record ed. [email or web address] [address], [place], [address], 06/03/2024 18:00:52 06/03/19 25 06/03/2024 US, obste tric, nucha l trans lucen cy No observ ation record ed. [address], [place], [address], 06/10/2024 12:40:10 06/12/19 25 06/12/2024 US, obste tric, limit ed No observ ation record ed. [email or web address] [address], [place], [address], 06/12/2024 18:21:33 06/12/19 25 06/12/2024 US, obste tric, follo w-up No observ ation record ed. [address], [place], [address], 06/13/2024 18:51:30 07/01/19 25 07/01/2024 US, obste tric, limit ed No observ ation record ed. [email or web address] [address], [place], [address], 07/01/2024 18:30:39 07/01/19 25 07/01/2024 US, obste tric, follo w-up No observ ation record ed. [email or web address] [address], [place], [address], 07/02/2024 23:15:06 07/13/19 25 07/12/2024 US, obste tric, limit ed No observ ation record ed. [email or web address] [address], [place], [address], 07/12/2024 17:50:02 Result Notes None recorded. Problems Name Problem SNOMED Code Status Onset Date Resolution Date Notes Provider Name and Address Organization Details Recorded Time Pregnanc y 59320122 Completed 202106/09/2022 Kenyetta Solano null, [facility] 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 3 15:14:45 Hypothyr oidism 36279376 Completed Elikristin Gonzalezharveynstieh l [facility], [facility] 3 15:14:45 Antenata l care: history of infertil ity 584666995 Completed Eli Carlosharveynstieh l [facility], [facility] 3 15:14:46 Group B Streptoc occus carrier [id number] 103 Completed bacteriu berta Elikristin Shettytieh l [facility] 3 15:14:45 Maternal obesity complica ting pregnanc y, childbir th and the puerperi um, antepart um 0700117945 07 Completed BMI 39- ante testing at 37w Elikristin Gonzalezharveyannietieh l [facility] 3 15:14:46 Chronic hyperten allison in obstetri c context 6698007 Completed procardi a , baseline labs, ASA Eli Gonzalezharveyannietieh l [facility] 15:14:46 Placenta circumva llata 8921844 Completed Serial growth u/s Eli Gonzalezharveyannietieh l null, [facility] 3 15:14:45 Pre-ecla mpsia 960376499 Completed Elikristin Chaveznstieh l [facility], [facility] 3 15:14:45 Abnormal cervical Papanico laou smear 626568781 Active 2023 3 lgsil HPV high risk 1 ascus HPV high risk Kenyetta Solano [facility], [facility] 4 11:59:57 Herpes simplex 96848603 Active 2024 Kenyetta moreno, [facility] 5 16:40:53 Human papillom a virus infectio n 875565879 Active 2024 Kenyetta Solano [facility], [facility] 5 16:40:59 Endometr iosis (clinica l) 427616851 Active 2024 Kenyetta Solano [facility], [facility] 5 16:41:22 Pregnanc y 33232273 Active 2024 Kenyetta Solano [facility], [facility] 5 16:03:06 Twin pregnanc y 02662665 Active 38 wk delivery antenata l testing @ 32wks per MFM Tabatha moreno, [facility] 5 17:10:58 Antenata l care: history of infertil ity 186819624 Active Peter Bryant CNM [address], [place], [address], [facility] 5 13:48:37 Past pregnanc y history of pre-ecla mpsia 8611458958 64884 Active bASA x2 Tabatha Flanagan [facility], [facility] 5 17:10:40 Large for gestatio n age fetus 321777495 Active less then 30 sec shoulder dystocia Peter Bryant CNM [address], [place], [address], [facility] 5 13:51:09 Past pregnanc y history of shoulder dystocia 976153431 Active Peter Bryant CNM [address], [place], [address], [facility] 5 13:52:04 Chronic hyperten allison in [place] [facility] context 1332942 Active Peter Bryant CNM [address], [place], [address], [facility] 5 13:52:55 Palpitat ions 39078550 Active Holter monitor faxed to [facility] 07/29 Tabatha Green null, [facility] 5 14:05:23 Palpitat ions 80468111 Active Holter monitor faxed to [facility] 07/29 Tabatha Green null, [facility] 5 14:05:23 Migraine 88225524 Active magnesiu m, Excedrin tension, sumatrip tatum Tabatha Green null, [facility] 5 17:11:50 Migraine 07143349 Active magnesiu m, Excedrin tension, sumatrip tatum Tabatha Green null, [facility] 5 17:11:50 Finding of general energy 596052615 Completed 201807/28/2020 Fatigue; Recorded Elsewher e: No Locat ion: Chaya arevalo [facility] S ource: EHR Medical Massage Therapist mark: N Practi ce ID: [id number] Emmanuel lable Time: 10:45:00 AM Messi Garcia MD [address], [place], [address], [facility] 1 15:00:00 Acute vaginiti s 36437314 Completed 201807/28/2020 Vaginiti s;Record ed Elsewher e: No [facility] S ource: EHR Medical Massage Therapist mark: N Practi ce ID: [id number] Emmanuel lable Time: 10:45:00 AM Messi Garcia MD [address], [place], [address], [facility] 15:00:04 Removal of intraute rine device Completed 201807/28/2020 Encounte r for removal of IUD;Earl rded Elsewher e: No Locat ion: [facility] S ource: EHR Medical Massage Therapist mark: N Practi ce ID: [id number] Emmanuel lable Time: 10:45:00 AM Messi Garcia MD [address], [place], [address], [facility] 15:00:08 Problem Notes None recorded. Procedures Surgical History Date Name Laterality Status Provider Name and Address Organization Details Recorded Time 024 Laparoscopy completed [facility] 05/10/2024 16:42:07 024 Date of Last Pap Smear completed [facility] 08/16/2023 12:00:08 024 procedure on ear completed [facility] 08/16/2023 12:01:09 023 Colposcopy completed Peter Bryant CNM [address], [place], [address], [facility] 06/15/2022 16:59:00 023 [facility] 16:38:21 023 Colposcopy completed Kenyettaelif Solano [facility] 06/15/2022 16:38:49 022 intrauterine artificial insemination completed [facility] 06/26/2021 09:20:58 021 intrauterine artificial insemination completed [facility] 06/17/2021 12:15:01 021 intrauterine artificial insemination completed [facility] 06/17/2021 12:14:55 021 intrauterine artificial insemination completed [facility] 06/17/2021 12:14:45 021 intrauterine artificial insemination completed [facility] 06/17/2021 12:14:39 021 LAPAROSCOPY, DIAGNOSTIC (SURG) completed [facility] 08/19/2020 14:04:12 020 completed [facility] 10/01/2020 16:23:53 020 Colonoscopy completed [facility] 01/22/2021 10:59:09 019 procedure on neck completed [facility] 12/25/2019 11:25:51 019 hemorrhoidectomy completed [facility] 12/25/2019 11:24:57 016 cholecystectomy completed [facility] 07/16/2021 17:21:15 010 Appendectomy completed [facility] 12/25/2019 11:24:44 Imaging Results Imaging Date Name Status LastModified by Organization Details LastModified Time 06/03/2024 US, obstetric, nuchal translucency completed [email or web address], [place], [address], 06/03/2024 18:00:41 06/03/2024 US, obstetric, nuchal translucency, additional gestation completed [email or web address], [place], [address], 06/03/2024 18:00:52 06/03/2024 US, obstetric, nuchal translucency completed [email or web address] [address], [place], [address], 06/10/2024 12:40:10 06/12/2024 US, obstetric, limited completed [email or web address], [place], [address], 06/12/2024 18:21:33 06/12/2024 US, obstetric, follow-up completed [email or web address] [address], [place], [address], 06/13/2024 18:51:30 07/01/2024 US, obstetric, limited completed [email or web address], [place], [address], 07/01/2024 18:30:39 07/01/2024 US, obstetric, follow-up completed [email or web address] [address], [place], [address], 07/02/2024 23:15:06 07/12/2024 US, obstetric, limited completed [email or web address] [address], [place], [address], 07/12/2024 17:50:02 Procedure Notes None recorded. Medical Equipment None Reported. Allergies Allergen ID Allergen Name Allergen Category Reaction Reaction Severity Criticality Documentation Date Start Date Code Code System Note Provider Name and Address Organization Details Recorded Time 45611 prednison e medicatio n hives Not available Not available 07/03/2024 8640 RxNorm Peter Bryant CNM [address], [place], [address] , [facility] 5 09:52:22 Medications Name Sig Start Date Stop Date Status Note LastModified by Organization Details LastModified Time nifedipin e ER 30 mg tablet,ex tended release 24 hr TAKE 1 TABLET BY MOUTH EVERY DAY 03/16 completed Not Available Not Available Not Available cyclobenz aprine 10 mg tablet TAKE 1 TABLET BY MOUTH EVERY 8 HOURS NEEDED FOR PAIN active Not Available Not Available No t Available amoxicill in 500 mg capsule TAKE 1 CAPSULE BY MOUTH TWICE DAILY FOR 10 DAYS 02/16 completed Not Available Not Available Not Available levothyro xine 137 mcg tablet TAKE 1 TABLET BY MOUTH DAILY 05/02 completed Not Available Not Available Not Available prednison e 10 mg tablet 08/15 completed Not Available Not Available Not Available venlafaxi ne ER 75 mg capsule,e xtended release 24 hr TK 1 C PO QD WF 07/02 completed Not Available Not Available Not Available Protonix 40 mg tablet,de layed release Take 1 tablet every day by oral route. 2024 active Not Available Not Available Not Avai lable triamcino lone acetonide 0.5 % topical cream APPLY THIN LAYER TOPICALL Y TO THE AFFECTED AREA TWICE DAILY active Not Available Not Available No t Available ibuprofen 800 mg tablet TK 1 T PO Q 8 H FOR 10 DAYS 07/02 completed Not Available Not Available Not Available nystatin 100,000 unit/gram topical ointment MAXIMINO A SML AMT AA BID 07/02 completed Not Available Not Available Not Available fluconazo le 150 mg tablet TAKE 1 TABLET BY MOUTH DAILY 05/02 completed Not Available Not Available Not Available clomiphen e citrate 50 mg tablet take 1 tablet by oral route days 5-9 of cycle 01/22 completed Not Available Not Available Not Available ampicilli n 500 mg capsule TAKE 1 CAPSULE BY MOUTH TWICE DAILY FOR 10 DAYS 09/10 completed Not Available Not Available Not Available citalopra m 10 mg tablet 08/15 completed Not Available Not Available Not Available hydrocodo ne 5 mg-acetam inophen 325 mg tablet TAKE 1 TABLET BY MOUTH EVERY 4 HOURS NEEDED FOR PAIN 05/02 completed Not Available Not Available Not Available sumatript an 25 mg tablet TAKE 1 TABLET BY MOUTH EVERY 8 HOURS DIRECTED active Not Available Not Available No t Available prednison e 20 mg tablet TK 3 TS PO QD 05/02 completed Not Available Not Available Not Available Pregnyl 10,000 unit intramusc ular solution Inject 46842 units every day by intramus cular route as needed for 1 day. 08/18 completed Not Available Not Available Not Available terconazo le 0.8 % vaginal cream INSERT 1 APPLICAT ORFUL IN THE VAGINA EVERY DAY 09/10 completed Not Available Not Available Not Available phentermi ne 15 mg capsule 05/02 completed Not Available Not Available Not Available venlafaxi ne ER 150 mg capsule,e xtended release 24 hr TK 1 C PO QD 07/02 completed Not Available Not Available Not Available metronida zole 500 mg tablet TAKE 1 TABLET BY MOUTH EVERY 12 HOURS FOR 7 DAYS 06/15 completed Not Available Not Available Not Available sulfameth oxazole 800 mg-trimet hoprim 160 mg tablet TAKE 1 TABLET BY MOUTH TWICE DAILY FOR 10 DAYS 05/02 completed Not Available Not Available Not Available triamcino lone acetonide 0.1 % topical cream MAXIMINO THIN LAYER EXT AA BID 07/02 completed Not Available Not Available Not Available levothyro xine 75 mcg tablet TAKE 1 TABLET BY MOUTH DAILY 08/10 completed Not Available Not Available Not Available Macrobid 100 mg capsule Take 1 capsule every 12 hours by oral route for 14 days. 04/08 completed Not Available Not Available Not Available nystatin- triamcino lone 100,000 unit/gram -0.1 % topical ointment APPLY TOPICALL Y TO THE AFFECTED AREA TWICE DAILY 07/02 completed Not Available Not Available Not Available levothyro xine 100 mcg tablet TAKE 1 TABLET BY MOUTH DAILY 08/18 completed Not Available Not Available Not Available oxycodone -acetamin ophen 5 mg-325 mg tablet TAKE 1 TABLET BY MOUTH EVERY 6 HOURS NEEDED FOR PAIN 09/10 completed Not Available Not Available Not Available alprazola m 0.5 mg tablet TAKE 1 TABLET BY MOUTH THREE TIMES DAILY 10/21 completed Not Available Not Available Not Available ofloxacin 0.3 % ear drops INSTILL 10 DROPS TO RIGHT EAR DAILY FOR 7 DAYS 05/02 completed Not Available Not Available Not Available amoxicill in 875 mg tablet TAKE 1 TABLET BY MOUTH EVERY 12 HOURS 08/15 completed Not Available Not Available Not Available famotidin e 20 mg tablet TAKE 1 TABLET BY MOUTH 2 TIMES A DAY 05/02 completed Not Available Not Available Not Available cephalexi n 500 mg capsule TAKE 1 CAPSULE BY MOUTH EVERY 6 HOURS 05/02 completed Not Available Not Available Not Available levothyro xine 125 mcg tablet TAKE 1 TABLET BY MOUTH DAILY 05/02 completed Not Available Not Available Not Available triamcino lone acetonide 0.1 % topical ointment MAXIMINO A SML AMT AA BID 07/02 completed Not Available Not Available Not Available dexametha sone 4 mg tablet 05/02 completed Not Available Not Available Not Available buspirone 10 mg tablet TK 1 T PO BID 07/02 completed Not Available Not Available Not Available olopatadi ne 0.1 % eye drops ADMINIST ER 1 DROP IN BOTH EYES TWICE DAILY NEEDED FOR ALLERGIE S 08/15 completed Not Available Not Available Not Available prednison e 50 mg tablet 05/02 completed Not Available Not Available Not Available lidocaine 5 % topical patch APPLY ONE PATCH TOPICALL Y DAILY LEAVE ON MOST PAINFUL AREA FOR UP TO 12 HOURS 08/15 completed Not Available Not Available Not Available progester one micronize d 200 mg capsule TAKE 1 CAPSULE BY MOUTH EVERY DAY FOR 12 DAYS DIRECTED 06/05 completed Not Available Not Available Not Available diclofena c sodium 75 mg tablet,de layed release TK 1 T PO BID 07/02 completed Not Available Not Available Not Available Euthyrox 50 mcg tablet TAKE 1 TABLET BY MOUTH ONCE DAILY 01/22 completed Not Available Not Available Not Available hydroxyzi ne HCl 25 mg tablet TAKE 1-2 TABLETS BY MOUTH EVERY 6 HOURS NEEDED FOR ITCHING AND RASH 05/02 completed Not Available Not Available Not Available letrozole 2.5 mg tablet TAKE 2 TABLETS BY MOUTH EVERY DAY FOR 5 DAYS 08/18 completed Not Available Not Available Not Available scopolami ne 1 mg over 3 days transderm al patch Apply one patch every 3 days by transder mal route as needed 06/05 completed Not Available Not Available Not Available clobetaso l 0.05 % scalp solution APPLY TO RASH TWICE DAILY 05/02 completed Not Available Not Available Not Available ondansetr on 4 mg disintegr ating tablet DISSOLVE 1 TABLET ON THE TONGUE EVERY 8 HOURS active Not Available Not Available No t Available phentermi ne 37.5 mg capsule 05/02 completed Not Available Not Available Not Available amoxicill in 875 mg-potass ium clavulana te 125 mg tablet TAKE 1 TABLET BY MOUTH TWICE DAILY FOR 10 DAYS 01/22 completed Not Available Not Available Not Available Reglan 5 mg tablet Take 1 tablet every 6 hours by oral route as needed. 2024 active Not Available Not Available Not Avai lable oxycodone 5 mg tablet TK 1 T PO Q 4 H PRF SEVERE PAIN 07/02 completed Not Available Not Available Not Available escitalop donna 10 mg tablet TAKE 1 TABLET BY MOUTH EVERY DAY 09/10 completed Not Available Not Available Not Available Lexapro 20 mg tablet take 1/2 tab po by mouth x 7 days then 1 tab po daily 08/15 completed Not Available Not Available Not Available Asprin Ec Low Dose 81 mg tablet,de layed release Take 2 tablets every day by oral route. 2024 active Not Available Not Available Not Avai lable cyclobenz aprine 5 mg tablet TAKE 1 TABLET BY MOUTH THREE TIMES DAILY NEEDED FOR MUSCLE SPASM 06/22 completed Not Available Not Available Not Available iron 325 mg (65 mg iron) tablet take 1 tablet by oral route every day 07/02 completed Prescrib ed Elsewher e: Yes Loca tion: [facility] odify By: [email or web address] Encoun ter DateTime : 01/19/20 10:45:00 AM Not Available Not Available Not Available Ciprodex 0.3 %-0.1 % ear drops,avis pension INSTILL 4 DROPS IN AFFECTED EAR(S) TWICE DAILY FOR 7 DAYS 01/22 completed Not Available Not Available Not Available bupropion HCl XL 300 mg 24 hr tablet, extended release TAKE 1 TABLET BY MOUTH EVERY DAY 09/10 completed Not Available Not Available Not Available bupropion HCl XL 150 mg 24 hr tablet, extended release TAKE 1 TABLET BY MOUTH EVERY DAY FOR 7 DAYS 06/22 completed Not Available Not Available Not Available aspirin 03/16 completed Not Available Not Available Not Available folic acid active Not Available Not Available Not Available iron active Not Available Not Availa ble Not Available Effexor XR 07/28 completed Not Available Not Available Not Available Synthroid 10/21 completed Not Available Not Available Not Available buspirone 07/02 completed Not Available Not Available Not Available Xanax 07/02 completed Not Available Not Available Not Available 06/15 completed Not Available Not Available Not Available levocetir izine 5 mg tablet 08/15 completed Not Available Not Available Not Available levothyro xine 125 mcg capsule Take 1 capsule every day by oral route. 02/16 completed Not Available Not Available Not Available butalbita l-acetami nophen-ca ffeine 50 mg-300 mg-40 mg capsule TAKE 1 CAPSULE BY MOUTH EVERY 6 HOURS NEEDED. NO MORE THAN 6 CAPSULES IN 24 HOURS 03/16 completed Not Available Not Available Not Available Suprep Bowel Prep Kit 17.5 gram-3.13 gram-1.6 gram oral solution MIX AND DRINK UTD 07/02 completed Not Available Not Available Not Available PreviDent 5000 Booster Plus 1.1 % dental paste USE TO BRUSH TEETH TWICE DAILY 05/02 completed Not Available Not Available Not Available Novarel 5,000 unit intramusc ular solution Inject 2 units by intramus cular route. 06/26 completed PATIENT GIVEN (2) NOVAREL VAIL INJECTIO N INTO RIGHT HIP LOT [id number] EXP 12/2021 Not Available Not Available Not Available Slynd 4 mg (28) tablet Take 1 tablet every day by oral route. 01/22 completed patient given samples Not Available Not Available Not Available Vitals Date Recorded Body height Body mass index (BMI) Body weight Systolic blood pressure Diastolic blood pressure Provider Name and Address Organization Details Last Updated DateTime 07/03/2024 161.29 cm 37.3 kg/m2 29465.76 718 g 123 mm[Hg] 82 mm[Hg] Kenyetta Solano [facility] 5 09:32:48 Date Recorded Body height Body mass index (BMI) Body weight Systolic blood pressure Diastolic blood pressure Provider Name and Address Organization Details Last Updated DateTime 07/08/2024 161.29 cm 37.7 kg/m2 00696.95 g 148 mm[Hg] 82 mm[Hg] Citlalli Bullock [facility] [facility] 10:59:25 Date Recorded Body weight Body mass index (BMI) Body height Systolic blood pressure Diastolic blood pressure Systolic blood pressure Diastolic blood pressure Provider Name and Address Organization Details Last Updated DateTime 5 55645.3 214 g 38.4 kg/m2 161.29 cm 152 mm[Hg] 92 mm[Hg] 114 mm[Hg] 53 mm[Hg] Kenyetta Solano [facility] 5 17:51:55 Social History Question Answer Notes LastModified by Organizat ion Details LastModified Time Tobacco Smoking Status Never Smoker Althea Holguin [facility] 06/15/2022 15:31:26 Do You Have An Advance Directive? No Information not available 07/28/2020 What Is Your Level Of Alcohol Consumption? Occasional [email or web address] Information not available 12/25/2019 If You Are , What Was Your Level Of Alcohol Consumption Prior To ? None [email or web address] Information not available 06/15/2022 Are You Blind Or Do You Have Difficulty Seeing? No Information not available 07/28/2020 What Is Your Level Of Caffeine Consumption? Occasional [email or web address] Information not available 09/09/2020 In The 14 Days Before Symptom Onset, Have You Had Close Contact With A Laboratory-confir med COVID-19 While That Case Was Ill? No Information not available 07/28/2020 In The 14 Days Before Symptom Onset, Have You Had Close Contact With A Person Who Is Under Investigation For COVID-19 While That Person Was Ill? No Information not available 07/28/2020 Have You Been To An Area Known To Be High Risk For COVID-19? No Information not available 07/28/2020 Are You Deaf Or Do You Have Serious Difficulty Hearing? No Information not available 07/28/2020 What Type Of Diet Are You Following? REGULAR [email or web address] Information not available 08/19/2020 Do You Or Have You Ever Used E-cigarettes Or Vape? Never Used Electronic Cigarettes [email or web address] Information not available 06/15/2022 What Is The Highest Grade Or Level Of School You Have Completed Or The Highest Degree You Have Received? 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 No Information not available 07/28/2020 What Was The Date Of Your Most Recent Tobacco Screening? 07/31/2024 [email or web address] Information not available 07/31/2024 Have You Ever Been Counseled For Unhealthy Alcohol Use? No [email or web address] Information not available 06/15/2022 Do You Use Protection During Sex? No Information not available 07/28/2020 Do You Use Your Seat Belt Or Car Seat Routinely? Yes Information not available 07/28/2020 Do You Have Smoke And Carbon Monoxide Detectors In Your Home? Yes Information not available 07/28/2020 Do You Or Have You Ever Used Smokeless Tobacco? Never Used Smokeless Tobacco [email or web address] Information not available 06/15/2022 How Much Tobacco Do You Smoke? No Information not available 12/25/2019 Do You Feel Stressed (tense, Restless, Nervous, Or Anxious, Or Unable To Sleep At Night)? [id number] [email or web address] Information not available 08/19/2020 Do You Use Any Illicit Or Recreational Drugs? No Information not available 07/28/2020 Do You Use Sunscreen Routinely? Yes Information not available 07/28/2020 Have You Used IV Drugs? No Information not available 07/28/2020 Do You Or Have You Ever Used Any Other Forms Of Tobacco Or Nicotine? No [email or web address] Information not available 06/15/2022 Sex: Unknown Functional Status Question Answer Note LastModified by Organizat ion Details LastModified Time Do you have difficulty walking or climbing stairs? No [email or web address] Information not available 06/15/2022 Are you able to walk? YESWOREST [email or web address] Information not available 08/19/2020 Are you able to care for yourself? Yes Information not available 06/15/2022 Do you have difficulty dressing or bathing? No [email or web address] Information not available 06/15/2022 What is your exercise level? Occasional [email or web address] Information not available 12/25/2019 Mental Status None recorded. Family History Relationship Description Onset Age of this Age Resolved Age Notes LastModified by Organization Details LastModified Time Maternal Grandmother Disorder of thyroid gland [email or web address] Not available 01/26 16:14:56 Mother Female infertility [email or web address] Not available 05/09 14:45:18 Mother Disorder of thyroid gland [email or web address] Not available 01/26 16:14:56 Father Malignant tumor of pancreas [email or web address] Not available 2024 14:45:18 Brother Malignant tumor of prostate [email or web address] Not available 2024 14:45:18 Paternal Grandmother Malignant tumor of breast [email or web address] Not available 01/26 16:14:56 Paternal Grandmother Malignant tumor of lung [email or web address] Not available 01/26 16:14:56 Medical History Condition Response Allergies (Food, seasonal, environmental ) N Other Y Breast Cancer N Drug/Latex Allergies/Reactions N Blood Transfusion N Dermatologic Disorders N Lung Disease N Defects or Inherited Disease N Breast Problem N Gestational Diabetes N Hematologic disorders N Anesthesia Complications N History of STI Y Deep Vein Thrombosis N Polycystic ovary syndrome N Anxiety Disorder Y Autoimmune disease N Arthritis N Infertility Y Polyps N Acid Reflux (GERD) N History of abnormal pap Y Cancer N Stroke N Varicosities N Neurologic/Epilepsy N Endometriosis Y High Cholesterol N Headaches N Fibromyalgia N Kidney Disease N Heart Problems N Kidney or Bladder Problems N Thyroid Problems Y GI Problems Y Eating Disorder N Anemia Y Art (IVF or FET) Y Psychiatric Illness Y Ovarian Cancer N Diabetes N Pulmonary (TB, Asthma) N Hepatitis/Liver Disease N No Past Medical History N Eczema N Urinary Tract Infection N Abuse/Domestic Violence N Asthma N Trauma/Violence N Depression/ depression Y Heart Disease N Pre-Eclampsia Y Hypertension Y Osteoporosis N Thrombophilias N Gynecological History Statement/Question Response Abnormal Pap Yes Date of Last Mammogram Date of LMP On BCP's at Conception? N N Was last menstrual period normal Y STIs/STDs Yes HPV Vaccine Y Colposcopy 06/15/2022 Duration of Flow (days) 6 Current Control Method Age at First Child 16 Sexually Active? Y Date of DEXA bone scan Date of Last Pap Smear 08/16/2023 Sexual Problems? N LMP Definite 11/06/2019 N 01/22/2021 Obstetrics History GPAL:G 4 P 3 0 0 3 Type Value Full Term 3 Living 3 Total 4 Past Encounters Encounter ID Performer Location Encounter Start Date Encounter Closed Date Diagnosis/Indication Diagnosis SNOMED-CT Code Diagnosis ICD10 Code Diagnosis Note [id number] Peter Bryant CNM [place] [address] [address] 12/25/2019 10:57:08 12/25/2019 12:38:39 Breast infection 211271241 N61.0 Trying to conceive [id number] 9001 Z31.9 [id number] Arlet Florez [place] [address] [address] 06/30/2020 12:07:39 06/30/2020 12:55:49 Pain in pelvis 42948296 R10.2 [id number] Messi Garcia MD [place] [address] [address] 07/02/2020 12:31:33 07/02/2020 16:54:32 Pain in pelvis 44090120 R10.2 This patient is a 25-year-ol d female with severe pelvic pain. She has severe tenderness on her pelvic exam. Pain is acute and she is tearful today with the pain. The exam was exquisitel y tenderness . She Requires immediate treatment and diagnosis. We have agreed to perform diagnostic laparoscop y. She understand s the risks. I described the procedure to the patient in detail. She understand s risks, benefits, and alternativ es. We will proceed with diagnostic laparoscop y. She has completed the informed consent process. To check fallopian tubes. [id number] Messi Garcia MD [place] [address] [address] 07/23/2020 10:07:53 07/23/2020 10:09:56 [id number] Messi Garcia MD [place] [address] [address] 07/28/2020 13:53:59 07/28/2020 15:27:02 Chest pain 27083738 R07.9 this patient is 25-year-ol d female with chest pain and shortness of breath. She has focal pain in the right side of her lower chest. We will obtain CT of the chest. This will be done urgently. We will follow-up on those results and contact the patient. Additional precaution ro measures were taken to minimize potential exposure to the Covid-19 virus during this patient s visit, including available hand locker room attendant upon arrive, temperatur e check and being asked a series of screening questions. All staff wore face coverings during this encounter, as well as provided additional cleaning and sanitizing of all surfaces, including countertop s, pens, chairs, door handles, light switches, etc, prior to and following the patient s visit. [id number] Messi Garcia MD [place] [address] [address] 08/04/2020 14:07:07 08/04/2020 14:50:37 Abnormal uterine bleeding [id number] 9100 N93.9 this patient is a 25-year-ol d female who presents for postop follow-up. She is 2 weeks postop from a laparoscop ic ovarian cystectomy . She is now recovering normally. She experience d a great deal pain after the surgery. She has no pain at this time. She does have some incisional discomfort . However, her incisions are healed normally. She will follow up as needed. Patient desires . She has some abnormal uterine bleeding. We are going to obtain some laboratory evaluation . The patient is going to see see her preop before next menstrual period. Patient has an open right fallopian tube. She appears to ovulate regularly. She has regular menstrual cycles with symptoms of ovulation. Her is taking Clomid for a low sperm count. Peter will help them through ovulation [place]. [id number] Peter Bryant [facility] [address] [address] 08/19/2020 13:46:09 08/19/2020 15:50:34 Trying to conceive [id number] Z31.9 [id number] [facility] [address],[place] [address] 09/02/2020 11:05:51 09/02/2020 12:44:09 Female infertility [id number] N97.9 [id number] Peter MichaelDwight Bryant [facility] [address],[place] [address] 09/04/2020 08:09:36 09/04/2020 09:29:50 Artificial insemination [id number] Z31.83 [id number] Kenyetta Solano [place] [address],[place] [address] 09/03/2020 18:20:49 09/03/2020 22:54:04 Trying to conceive [id number] Z31.9 [id number] [facility] [address],[place] [address] 09/09/2020 17:51:09 09/09/2020 18:07:37 Pain in pelvis 65516112 R10.2 This patient is a 25-year-ol d female with severe pelvic pain. She has severe tenderness on her pelvic exam. Pain is acute and she is tearful today with the pain. The exam was exquisitel y tenderness . She Requires immediate treatment and diagnosis. We have agreed to perform diagnostic laparoscop y. She understand s the risks. I described the procedure to the patient in detail. She understand s risks, benefits, and alternativ es. We will proceed with diagnostic laparoscop y. She has completed the informed consent process. To check fallopian tubes. [id number] [facility] [address],[place] [address] 09/22/2020 16:45:48 09/22/2020 17:17:04 Pain in pelvis [id number] R10.2 This patient is a 25-year-ol d female with severe pelvic pain. She has severe tenderness on her pelvic exam. Pain is acute and she is tearful today with the pain. The exam was exquisitel y tenderness . She Requires immediate treatment and diagnosis. We have agreed to perform diagnostic laparoscop y. She understand s the risks. I described the procedure to the patient in detail. She understand s risks, benefits, and alternativ es. We will proceed with diagnostic laparoscop y. She has completed the informed consent process. To check fallopian tubes. [id number] Bita Dennis [place] [address],[place] [address] 10/01/2020 14:59:50 10/01/2020 15:16:34 Female infertility [id number] N97.9 [id number] Kenyetta Solano [place] [address] [address] 10/01/2020 16:21:54 10/01/2020 16:27:38 Trying to conceive [id number] Z31.9 [id number] Peter Bryant [facility] [address] [address] 10/02/2020 08:19:49 10/02/2020 09:46:38 Artificial insemination [id number] Z31.83 [id number] Arlet Florez [place] [address],[place] [address] 10/14/2020 15:52:51 10/14/2020 16:51:20 Pain in pelvis 52643220 R10.2 This patient is a 25-year-ol d female with severe pelvic pain. She has severe tenderness on her pelvic exam. Pain is acute and she is tearful today with the pain. The exam was exquisitel y tenderness . She Requires immediate treatment and diagnosis. We have agreed to perform diagnostic laparoscop y. She understand s the risks. I described the procedure to the patient in detail. She understand s risks, benefits, and alternativ es. We will proceed with diagnostic laparoscop y. She has completed the informed consent process. To check fallopian tubes. [id number] [facility] [address] [address] 10/21/2020 17:06:20 10/21/2020 17:33:05 Hypothyroidism 76747777 E03.9 check labs, will adjust meds if needed [id number] Arlet Florez [place] [address] [address] 11/30/2020 13:48:01 11/30/2020 13:52:51 Pain in pelvis [id number] R10.2 This patient is a 25-year-ol d female with severe pelvic pain. She has severe tenderness on her pelvic exam. Pain is acute and she is tearful today with the pain. The exam was exquisitel y tenderness . She Requires immediate treatment and diagnosis. We have agreed to perform diagnostic laparoscop y. She understand s the risks. I described the procedure to the patient in detail. She understand s risks, benefits, and alternativ es. We will proceed with diagnostic laparoscop y. She has completed the informed consent process. To check fallopian tubes. [id number] Messi Garcia MD [place] [address] [address] 12/01/2020 14:00:56 12/01/2020 15:31:30 Pain in pelvis 90226572 R10.2 this patient is a 25-year-ol d female who presents for Pelvic pain. The patient has had diagnostic laparoscop y with resection of endometrio sis. The diagnosis of endometrio sis was actually not confirmed by biopsy but is very likely given the amount of fibrosis within the pelvis. All biopsy showed fibrosis. She was not trying to get . She has decided against that now. That was preventing us from treating her medically. Today we discussed all her medical treatment options. from oral contracept hayde pills to Lupron we discussed in detail the risks/bene fits, mechanism of action, effectiven ess, tolerance We discussed her medical treatment options in painstakin g detail. She ultimately decided on oral contracept hayde pills. We agreed to a levonorges trel containing pill of 20 mcg of estrogen. She will follow-up in 3 months. We spent more than 35 minutes face-to-fa ce discussing this very complex topic. [id number] Peter Bryant CNM [place] [address],[place] [address] 01/22/2021 09:15:38 01/22/2021 10:35:42 Female infertility [id number] N97.9 Gynecologi c examination 14342913 Z01.419 [id number] [facility] [address] [address] 02/09/2021 09:19:46 02/09/2021 10:04:48 Female infertility [id number] N97.9 [id number] Kenyetta Solano [place] [address],[place] [address] 02/09/2021 14:29:50 02/09/2021 16:50:58 Trying to conceive [id number] Z31.9 [id number] Peter Bryant [facility] [address] [address] 02/10/2021 09:41:42 02/10/2021 10:12:15 Female infertility [id number] N97.9 Artificial insemination [id number] Z31.83 [id number] [facility] [address],[place] [address] 04/28/2021 14:43:43 04/28/2021 15:19:59 Female infertility [id number] N97.9 [id number] [facility] [address],[place] [address] 04/28/2021 18:59:10 04/29/2021 09:31:07 Trying to conceive [id number] Z31.9 [id number] Peter Bryant [facility] [address],[place] [address] 04/29/2021 09:31:15 04/29/2021 10:19:12 Artificial insemination [id number] Z31.83 [id number] [facility] [address],[place] [address] 05/25/2021 11:53:11 05/25/2021 16:54:31 Reduced libido 5389945 R68.82 Today we discussed trial of Wellbutrin for low libido.She has had recent lab work & no other issues related to low libido present.De nies suicidal ideations/ thoughts of self harm. Hx of anxiety--p lease call if you find this medication is causing significan t increased anxiety or panic attacks. Or other concerning side effects.Me dication should not inhibit ability to achieve . Counseled on r/b's, most common side effects of this therapy with instructio ns to stop medication with any significan t abnormal change in mood especially with thoughts of suicide/se lf-harm/luo rm to others. Understand ing verbalized . RTO x 4-6wks for med check Time spent in visit is a total of 15 mins with at least 50% of visit consisting of counseling and review of plan of care.Addit ional precaution ro measures were taken to minimize potential exposure to the Covid-19 virus during this patient s visit, including available hand locker room attendant upon arrive, temperatur e check and being asked a series of screening questions. All staff wore face coverings during this encounter, as well as provided additional cleaning and sanitizing of all surfaces, including countertop s, pens, chairs, door handles, light switches, etc, prior to and following the patient s visit. [id number] Messi Garcia MD [place] [address] [address] 06/22/2021 14:38:59 06/23/2021 09:16:44 Body mass index 30+ - obesity [id number] Z68.37 This patient is a 26-year-ol d female with class 2 obesity. Does not appear to have any eating disorder. She is active, resting metabolic rate testing is indicated. She has a good understand ing of the basics of nutrition. The dietitian consult will be valuable in getting more details on her diet In counseling her on a diet that will work for her. We talked about medication for weight loss. She is currently being treated for infertilit y and is possibly going to be during this menstrual cycle. Weight initiation of treatment till after the menstrual cycle. We spent 1 hour together and more than 50% was counseling . We agreed to a laboratory evaluation . She is going to have an EKG we are going to consider medical management . She is getting on the dietitian schedule. Gynecologi c examination 90357788 Z01.419 Abnormal u terine bleeding 5170944911 9100 N93.9 [id number] Isha More [place] [address] [address] 06/25/2021 09:04:11 06/25/2021 09:23:27 Female infertility [id number] N97.9 [id number] Kenyetta Solano [place] [address],[place] [address] 06/25/2021 18:38:25 06/26/2021 09:09:27 Trying to conceive [id number] Z31.9 [id number] Peter Bryant [facility] [address] [address] 06/26/2021 09:13:57 07/01/2021 15:54:18 Artificial insemination [id number] Z31.83 [id number] [facility] [address],[place] [address] 07/27/2021 17:11:55 07/27/2021 18:06:16 Uncertain viability of [id number] O36.80X0 Z3A.01 [id number] Isha More [place] [address],[place] [address] 08/05/2021 09:17:05 08/05/2021 10:16:25 Abdominal pain in early 126043473 Z33.1 Z3A.01 [id number] [facility] [address],[place] [address] 08/18/2021 10:17:54 08/18/2021 11:20:00 [id number] [facility] [address] [address] 08/18/2021 10:18:19 08/19/2021 12:30:57 Amenorrhea 67520657 Z31.89 Z31.83 [id number] Isha More [place] [address],[place] [address] 09/10/2021 14:50:18 09/10/2021 15:34:33 screening [id number] Z36.82 [id number] Pretty Cotton MD [place] [address] [address] 09/10/2021 14:50:57 09/13/2021 15:22:01 Routine care [id number] Z34.91 care: history of infertility [id number] O09.[address] reptococcus carrier 1416616256 103 Z22.330 Hypothyroidism 79428698 E03.9 Maternal o besity complicating , childbirth and the puerperium, antepartum 4521378853 07 O99.211 [id number] Pretty Cotton MD [place] [address],[place] [address] 09/27/2021 17:43:48 09/28/2021 10:23:00 Chronic hypertension complicating AND/OR reason for care during 39916331 O16.9 [id number] Pretty Cotton MD [place] [address] [address] 10/08/2021 14:49:27 10/08/2021 16:16:40 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 9435557 O16.9 care: history of infertility 999676784 O09.01 Hypothyroidism 56760231 E03.9 [id number] Isha More [place] [address] [address] 11/03/2021 16:29:49 11/03/2021 18:37:35 screening 189776486 Z36.3 Z3A.20 [id number] Peter Bryant CNM [place] [address],[place] [address] 11/03/2021 16:30:15 11/03/2021 18:37:10 Routine care 696893908 Z34.91 Anxiety 17665505 F41.9 [id number] Messi Garcia MD [place] [address],[place] [address] 12/03/2021 15:10:07 12/03/2021 16:20:49 Hypothyroidism 83339413 E03.9 [id number] Isha More [place] [address],[place] [address] 12/03/2021 15:10:54 12/03/2021 17:08:45 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 Z36.2 Z3A.24 [id number] [facility] [address] [address] 12/29/2021 15:21:10 12/29/2021 16:01:38 Placenta circumvallata [id number] O43.113 O10.013 O99.213 Z3A.28 [id number] Peter Bryant [facility] [address] [address] 12/29/2021 15:22:44 12/29/2021 17:01:50 Routine care [id number] Z34.91 - induced hypertension 74310846 O13.9 [id number] [facility] [address] [address] 01/13/2022 13:47:29 01/13/2022 14:39:17 Medical examination for suspected condition 615021542 Z03.79 [id number] Messi Garcia MD [place] [address],[place] [address] 01/13/2022 13:47:50 01/13/2022 15:53:18 Routine care 213768405 Z34.83 [id number] Marie Lewis [place] [address],[place] [address] 01/17/2022 16:24:29 01/17/2022 18:16:59 Threatened premature labor - not delivered 445107415 O47.9 [id number] Pretty Cotton MD [place] [address],[place] [address] 01/17/2022 16:35:15 01/19/2022 15:28:55 Threatened premature labor - not delivered [id number] O47.9 [id number] [facility] [address],[place] [address] 01/26/2022 14:52:57 01/26/2022 15:27:45 Chronic hypertension complicating AND/OR reason for care during 62222454 O16.9 [id number] [facility] [address],[place] [address] 01/26/2022 14:54:57 01/26/2022 16:22:26 Placenta circumvallata [id number] O43.113 Z3A.32 O10.013 [id number] Peter Bryant [facility] [address] [address] 01/26/2022 14:55:32 01/26/2022 16:39:21 Routine care [id number] Z34.91 [id number] [facility] [address],[place] [address] 02/02/2022 16:59:59 02/02/2022 17:58:36 Maternal obesity complicating , childbirth and the puerperium, antepartum 6146938069 07 O99.213 [id number] [facility] [address] [address] 02/02/2022 17:00:19 02/02/2022 18:17:03 Chronic hypertension complicating AND/OR reason for care during 83529170 O10.013 Z3A.33 [id number] Peter Bryant [facility] [address] [address] 02/02/2022 17:00:45 02/02/2022 18:50:24 Routine care 506560012 Z34.91 [id number] [facility] [address] [address] 02/09/2022 16:53:15 02/09/2022 17:49:24 Maternal obesity complicating , childbirth and the puerperium, antepartum 7307769053 07 O99.213 [id number] [facility] [address] [address] 02/09/2022 16:53:36 02/09/2022 18:15:36 Chronic hypertension complicating AND/OR reason for care during [id number] O10.013 O99.213 Z3A.34 [id number] Peter Bryant [facility] [address] [address] 02/09/2022 16:54:04 02/09/2022 18:25:27 Routine care [id number] Z34.91 [id number] [facility] [address],[place] [address] 1 02/16/2022 17:00:10 02/16/2022 17:56:48 Chronic hypertension complicating AND/OR reason for care during [id number] O10.013 O99.213 Z3A.34 [id number] [facility] [address],[place] [address] 1 02/16/2022 17:00:39 02/16/2022 18:07:43 Chronic hypertension complicating AND/OR reason for care during 86972424 O10.013 Z3A.35 O99.213 [id number] Peter Bryant [facility] [address],[place] [address] 1 02/16/2022 17:01:03 02/16/2022 18:20:17 Routine care [id number] Z34.91 [id number] [facility] [address],[place] [address] 1 02/18/2022 15:23:24 02/18/2022 15:53:12 Reduced movement 295303920 O36.8199 [id number] Peter Bryant [facility] [address],[place] [address] 1 02/23/2022 16:45:10 02/23/2022 18:18:35 Routine care 982592491 Z34.91 Large for gestation age fetus 879685126 O36.63X0 [id number] Loretta Casiano ier [place] [address],[place] [address] 1 02/23/2022 16:42:55 02/23/2022 17:12:22 Chronic hypertension complicating AND/OR reason for care during 84381892 O10.013 Z3A.35 O99.213 [id number] [facility] [address],[place] [address] 1 02/23/2022 16:43:28 02/23/2022 17:56:35 Chronic hypertension complicating AND/OR reason for care during 68677666 O10.013 O99.213 Z3A.36 [id number] Pretty Cotton MD [place] [address],[place] [address] 03/16/2022 14:15:55 03/17/2022 16:13:50 Pain in pelvis 13889012 R10.2 [id number] [place] [address],[place] [address] 03/17/2022 13:34:56 03/17/2022 14:02:57 Pain in pelvis 46562743 R10.2 this patient is a 25-year-ol d female who presents for Pelvic pain. The patient has had diagnostic laparoscop y with resection of endometrio sis. The diagnosis of endometrio sis was actually not confirmed by biopsy but is very likely given the amount of fibrosis within the pelvis. All biopsy showed fibrosis. She was not trying to get . She has decided against that now. That was preventing us from treating her medically. Today we discussed all her medical treatment options. from oral contracept hayde pills to Lupron we discussed in detail the risks/bene fits, mechanism of action, effectiven ess, tolerance We discussed her medical treatment options in painstakin g detail. She ultimately decided on oral contracept hayde pills. We agreed to a levonorges trel containing pill of 20 mcg of estrogen. She will follow-up in 3 months. We spent more than 35 minutes face-to-fa ce discussing this very complex topic. [id number] Messi Garcia MD [place] [address],[place] [address] 03/17/2022 13:35:31 03/18/2022 13:49:15 Pain in pelvis 35421381 R10.2 patient is a 27-year-ol d female who is 1 week from a vaginal . There is possibly a shoulder dystocia that was treated with suprapubic pressure. She is sharing this with this the 1st time and maybe response for the pain she is experienci ng. She has a suprapubic pain and a lower abdominal pressure anteriorly . We talked about her CT scan and pelvic ultrasound . They are all essentiall y normal. We agreed to observe her pain and give recommenda tions on pain management . More than 50% Of visit was counseling . We spent over 20 minutes face-to-fa ce. 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 restart lexapro, to ed if any suicidal thoughts, reviewed se risks and benefits f/u 6 week med check if unavailabl e can do by phone Low grade squamous intraepithelial lesion on cervical Papanicolaou smear [id number] 9105 R87.003 f/u pending pathology [id number] Peter Bryant CNM [place] [address],[place] [address] 08/16/2023 11:38:58 08/16/2023 13:55:15 Pain in pelvis 14017790 R10.2 also start pelvic floor pT Gynecologi c examination 80984232 Z01.419 [id number] [facility] [address],[place] [address] 08/22/2023 11:28:17 08/22/2023 12:06:29 Pain in pelvis 04389816 R10.2 patient is a 27-year-ol d female who is 1 week from a vaginal . There is possibly a shoulder dystocia that was treated with suprapubic pressure. She is sharing this with this the 1st time and maybe response for the pain she is experienci ng. She has a suprapubic pain and a lower abdominal pressure anteriorly . We talked about her CT scan and pelvic ultrasound . They are all essentiall y normal. We agreed to observe her pain and give recommenda tions on pain management . More than 50% Of visit was counseling . We spent over 20 minutes face-to-fa ce. [id number] [facility] [address],[place] [address] 04/23/2024 09:16:05 04/23/2024 10:09:58 screening 872009338 Z36.87 O30.049 Z3A.01 [id number] [facility] [address],[place] [address] 05/10/2024 15:16:46 05/10/2024 16:01:31 [id number] Peter Bryant [facility] [address],[place] [address] 1 05/10/2024 15:17:03 05/10/2024 16:51:44 Amenorrhea 09303706 Z31.89 Z31.83 Dichorioni c diamniotic twin 026157954 O30.049 reviewed US plan us at 12 weeksnipt at 10 weeks with labsawait pap until pp visitrevie wed precaution s and educationh x preeclamps ia without severe features last [id number] [facility] [address],[place] [address] 05/21/2024 11:09:17 05/21/2024 12:05:12 Threatened miscarriage 57087656 O20.0 O30.041 Z3A.09 [id number] [facility] [address],[place] [address] 05/23/2024 17:26:08 05/24/2024 10:31:39 Threatened miscarriage 48511696 O20.0 O30.041 Z3A.09 [id number] Messi Garcia MD [place] [address],[place] [address] 1 05/23/2024 18:31:17 05/24/2024 10:33:13 Pain in pelvis 11255974 R10.2 this patient is a 29-year-ol d female presents for right lower quadrant pain. she is with twins. Ten weeks gestation. She has not have an appendix. She has had ovarian cystectomy on the right. Ultrasound today was unable to demonstrat e blood flow to the ovary. she appears Significan tly uncomforta ble but not as if she is in severe pain, like ovarian torsion. we discussed her pain. We discussed possible treatments . We agreed to observatio n. She has a repeat ultrasound in 6 days. She is to contact us if pain worsens. [id number] [facility] [address],[place] [address] 1 05/29/2024 10:21:34 05/29/2024 11:12:31 condition affecting obstetrical care of mother 781182770 O36.8910 Z3A.10 [id number] [facility] [address],[place] [address] 06/03/2024 16:41:37 06/04/2024 14:32:45 screening 468125715 Z36.82 Z3A.11 [id number] [facility] [address],[place] [address] 06/05/2024 14:45:02 06/06/2024 16:44:18 Nausea and vomiting 74365141 R11.2 Migraine 46784118 G43.90 9 Routine an tenatal care 058800020 Z34.91 Twin 08700300 O30.009 [id number] [facility] [address],[place] [address] 06/12/2024 17:23:11 06/12/2024 18:08:31 Medical examination for suspected condition 715725708 Z03.72 Z3A.12 [id number] [facility] [address],[place] [address] 07/01/2024 16:17:41 07/01/2024 17:36:13 Dichorionic diamniotic twin 681517230 O30.042 Z3A.15 [id number] [facility] [address],[place] [address] 07/03/2024 09:17:02 07/03/2024 09:55:31 Gestation period, 15 weeks 9183692 Z3A.15 [id number] ALEC WILKINSON MD [place] [address],[place] [address] 07/08/2024 10:41:29 07/08/2024 11:38:56 Pruritic rash 07793219 L28.2 Dichorioni c diamniotic twin 624147145 O30.049 Chronic hy pertension complicating AND/OR reason for care during 99630377 O16.9 Gestation period, 16 weeks 19294534 Z3A.16 [id number] Bita Dennis [place] [address],[place] [address] 1 07/12/2024 10:38:28 07/12/2024 11:50:01 [id number] Peter Bryant CNM [place] [address] [place] [address] 1 07/31/2024 16:35:21 08/01/2024 09:45:58 Gestation period, 19 weeks 25921552 Z3A.19 Dichorioni c diamniotic twin 397880800 O30.049 Gastroesop hageal reflux disease 370654116 K21.9 Health Concerns Section Related Observation LastModified by Organization Detai ls LastModified Time None Recorded Concern Status LastModified by Organization Details LastModified Time None Recorded Advance Directives Directive N: Payers Encounter Date Sequence Insurance Name Policy Number Policy Steele Covered Member ID Steele Member ID Guarantor Name 07/01/2024 1 [facility] [id number] Luis Antonio Rowe Corzine [id number] Yessica Kezia Corzine 07/03/2024 1 [facility] [id number] Luis Antonio A Corzine [id number] Yessica Kezia Corzine 07/08/2024 1 [facility] [id number] Luis Antonio A Corzine [id number] Yessica Kezia Corzine 07/12/2024 1 [facility] [id number] Luis Antonio A Corzine [id number] Yessica Kezia Corzine 07/31/2024 1 [facility] [id number] Luis Antonio Rowe Corzine [id number] Yessica Mast Corzine OBGyn Episode Ob Episode Information Episode Created Date Number of Fetuses Patient Bloodtype Patient rh Status Prepregnancy Weight lbs Domestic Partner Domestic Partner Phone 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 Status 12/25/19 20 1 CLOSED Fetus Data First Name Last Name Admitted to NICU Weight (g) Sex Living Outcome Pediatric Complications Fetus ID Race Codes Race Delivery Type 4309.12 4 F Full Term 3883 Vaginal Delivery Darren Calculation Initial Darren Date Initial Exam [...] Complications Tubal Sterilization Discharge Date Comments 5 40 Discharge Information Feeding Method Contraceptive Method Maternal HG B and HCT Levels Ob Episode Information Episode Created Date Number of Fetuses Patient Bloodtype Patient rh Status Prepregnancy Weight lbs Domestic Partner Domestic Partner Phone 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 Status 12/25/19 20 1 CLOSED Fetus Data First Name Last Name Admitted to NICU Weight (g) Sex Living Outcome Pediatric Complications Fetus ID Race Codes Race Delivery Type 3515.33 8 F Full Term 3882 Vaginal Delivery Darren Calculation Initial Darren Date Initial Exam [...] Complications Tubal Sterilization Discharge Date Comments 2 41 Discharge Information Feeding Method Contraceptive Method Maternal HG B and HCT Levels Ob Episode Information Episode Created Date Number of Fetuses Patient Bloodtype Patient rh Status Prepregnancy Weight lbs Domestic Partner Domestic Partner Phone 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 Status 09/11/19 22 1 A Positive 221 CLOSED Fetus Data First Name Last Name Admitted to NICU Weight (g) Sex Living Outcome Pediatric Complications Fetus ID Race Codes Race Delivery Type 4224.07 55 M true Full Term 68123 Vaginal Delivery Problems Problem Notes TSH WNL/A+/Ha1c/CBC WNL Problem Name Start Date End Date Resolution Snomed Code Not e Hypothyroidism 43804674 care: history of infertility 486097390 Group B Streptococcus carrier [id number] bacteriuria Maternal obesity complicating , childbirth and the puerperium, antepartum 821573612059 BMI 39- ante testing at 37w 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 [id number] maia ellsworth , baseline labs, ASA Placenta circumvallata 0773528 Serial growth u/s Pre-eclampsia 138548837 Darren Calculation Initial Darren Date Initial Exam Date Initial Exam Provider Initial Ultrasound Date Last Menstrual Period Date Ultra Sound Weeks Gestation 03/23/2022 09/10/2021 08/18/2021 06/16/2021 9 Eighteen To Twenty Week Darren Update Ultra Sound Date Fundal Height At Umbil Quickening Date Ultra Sound Latest Weeks Gestation Final Darren Confirmed By Final Darren Confirmed Date Final Darren Date Ultra Sound Latest Days Gestation 0 [email or web address] 09/13/2021 03/23/20 22 0 Pre- Flowsheet Flowsheet Date 09/10/2021 Mckinney Score Blood Edema Fundus Height Fundus Units Glucose Ketones Leukocytes Nitrite Labor Signs Protein Cervic Dilation Cervic Effacement Cervic Station neg none Type Weight in lbs Pre/Post Dialysis Refused Weight 225.754710131045 BP Diastolic BP Location Tested BP Systolic BP Type 81 114 Fetus Heart Rate Present A 165 Fetus Movement A No Comments Yessica is a 26yo at 1 2.2 for care. Infertility treatment- conceived with OI and IUI. Covid vaccines done, due for booster in Feb. US today NT wnl, AARTI smaller. Having a lot of nausea. Anxiety is better, only took lexapro for 2 days because no longer felt she needed it. EPDS next visit. Will stop progesterone. B6 and unisom if needed. Discussed testing for BMI. complicated by hypothyroidism, on meds, and GBS bacteriuria. Flowsheet Date 09/27/2021 Mckinney Score Blood Edema Fundus Height Fundus Units Glucose Ketones Leukocytes Nitrite Labor Signs Protein Cervic Dilation Cervic Effacement Cervic Station Type Weight in lbs Pre/Post Dialysis Refused Weight 226.127001826439 BP Diastolic BP Location Tested BP Systolic BP Type 111 163 84 123 Fetus Heart Rate Present Fetus Movement Comments Here with multiple elevated BPs at work. In the last year has occasionally had elevated BPs. Has had a lot of awful LUO lately. Reports anxiety much better, EPDS 2. Denies DV. Will start procardia 30 XL. Will need baseline PIH labs next visit, and to start ASA. Flowsheet Date 10/08/2021 Mckinney Score Blood Edema Fundus Height Fundus Units Glucose Ketones Leukocytes Nitrite Labor Signs Protein Cervic Dilation Cervic Effacement Cervic Station neg trace none trace Type Weight in lbs Pre/Post Dialysis Refused Weight 224.432867876253 BP Diastolic BP Location Tested BP Systolic BP Type 77 118 Fetus Heart Rate Present A 135 Fetus Movement A No Comments Doing ok except had LUO Monda y, BP was fine, went away overnight. Dysuria 4 days ago x1, none since. UC today. TSH good 08/26, repeat around 24w. AFP and baseline PIH labs today. Doing well on nifedipine, no side effects noted. Flowsheet Date 11/03/2021 Mckinney Score Blood Edema Fundus Height Fundus Units Glucose Ketones Leukocytes Nitrite Labor Signs Protein Cervic Dilation Cervic Effacement Cervic Station Type Weight in lbs Pre/Post Dialysis Refused BP Diastolic BP Location Tested BP Systolic BP Type Fetus Heart Rate Present Fetus Movement Comments Flowsheet Date 11/03/2021 Mckinney Score Blood Edema Fundus Height Fundus Units Glucose Ketones Leukocytes Nitrite Labor Signs Protein Cervic Dilation Cervic Effacement Cervic Station neg none none trace Type Weight in lbs Pre/Post Dialysis Refused Weight 230.237921894694 BP Diastolic BP Location Tested BP Systolic BP Type 70 120 Fetus Heart Rate Present Fetus Movement A Yes Comments efw 94%, circumvallate place nta, anatomy incomplete, reviewed precautions, abdominal muscle separation, plan maternity belt wants to restart lexapro 10 mg due to anxiety, if any suicidal thoughts to ED reviewed se, f/u 4 weeks with US Flowsheet Date 12/03/2021 Mckinney Score Blood Edema Fundus Height Fundus Units Glucose Ketones Leukocytes Nitrite Labor Signs Protein Cervic Dilation Cervic Effacement Cervic Station 25 Type Weight in lbs Pre/Post Dialysis Refused Weight 234.806883038908 BP Diastolic BP Location Tested BP Systolic BP Type 77 R arm 123 sitting Fetus Heart Rate Present A 145 Fetus Movement Comments to repeat thyroid testing, c omplains of abdominal wall pain, wearing a binder, tearing sensation, moderate pain, gave recommendations on pain. Headache, being treated, Fioricet is affective. Flowsheet Date 12/03/2021 Mckinney Score Blood Edema Fundus Height Fundus Units Glucose Ketones Leukocytes Nitrite Labor Signs Protein Cervic Dilation Cervic Effacement Cervic Station Type Weight in lbs Pre/Post Dialysis Refused BP Diastolic BP Location Tested BP Systolic BP Type Fetus Heart Rate Present Fetus Movement Comments Flowsheet Date 12/29/2021 Mckinney Score Blood Edema Fundus Height Fundus Units Glucose Ketones Leukocytes Nitrite Labor Signs Protein Cervic Dilation Cervic Effacement Cervic Station Type Weight in lbs Pre/Post Dialysis Refused BP Diastolic BP Location Tested BP Systolic BP Type Fetus Heart Rate Present Fetus Movement Comments Flowsheet Date 12/29/2021 Mckinney Score Blood Edema Fundus Height Fundus Units Glucose Ketones Leukocytes Nitrite Labor Signs Protein Cervic Dilation Cervic Effacement Cervic Station neg trace none trace Type Weight in lbs Pre/Post Dialysis Refused Weight 235.682552175084 BP Diastolic BP Location Tested BP Systolic BP Type 86 142 Fetus Heart Rate Present Fetus Movement A Yes Comments patient is having some pain, contractions, abdominal discomfort, swelling, heartburn. reviewed precautions growth efw 82% AC 94%, jeanine 22, rpt jeanine 2 weeks and growth in 4 weeks, doing gct today, plan weekly testing due to pt job. ptl precautions f/u 2 weeks, denies increase in luo Flowsheet Date 01/13/2022 Mckinney Score Blood Edema Fundus Height Fundus Units Glucose Ketones Leukocytes Nitrite Labor Signs Protein Cervic Dilation Cervic Effacement Cervic Station Type Weight in lbs Pre/Post Dialysis Refused BP Diastolic BP Location Tested BP Systolic BP Type Fetus Heart Rate Present Fetus Movement Comments Flowsheet Date 01/13/2022 Mckinney Score Blood Edema Fundus Height Fundus Units Glucose Ketones Leukocytes Nitrite Labor Signs Protein Cervic Dilation Cervic Effacement Cervic Station 30 Type Weight in lbs Pre/Post Dialysis Refused Weight 239.189408148321 BP Diastolic BP Location Tested BP Systolic BP Type 86 R arm 133 sitting Fetus Heart Rate Present A 143 Fetus Movement Comments reports kenrick, nothing that is repetitive and sustained. Moderately painful. Good movement. Good amniotic fluid check today. , no complaints. Flowsheet Date 01/17/2022 Mckinney Score Blood Edema Fundus Height Fundus Units Glucose Ketones Leukocytes Nitrite Labor Signs Protein Cervic Dilation Cervic Effacement Cervic Station Type Weight in lbs Pre/Post Dialysis Refused BP Diastolic BP Location Tested BP Systolic BP Type Fetus Heart Rate Present Fetus Movement Comments Flowsheet Date 01/17/2022 Mckinney Score Blood Edema Fundus Height Fundus Units Glucose Ketones Leukocytes Nitrite Labor Signs Protein Cervic Dilation Cervic Effacement Cervic Station 1cm 40% -4 Type Weight in lbs Pre/Post Dialysis Refused Weight 240.509474973824 BP Diastolic BP Location Tested BP Systolic BP Type 82 132 Fetus Heart Rate Present A 140 Fetus Movement A Yes Comments Here for FU from hospital. W as there for contractions, received terbutaline, was 1cm. Was unable to do FFN then because RN had checked her. FFN today. NST reactive today with only 2 contractions. 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 Her contractions resolve with rest most of the time. Assuming FFN is neg, her body may just be requesting more rest. Encouraged to allow her family and friends to help. Cervix remains 1cm, not thin, posterior, does not feel laboring at all. Precautions given. Already on procardia for BP. testing starts soon. Flowsheet Date 01/26/2022 Mckinney Score Blood Edema Fundus Height Fundus Units Glucose Ketones Leukocytes Nitrite Labor Signs Protein Cervic Dilation Cervic Effacement Cervic Station Type Weight in lbs Pre/Post Dialysis Refused BP Diastolic BP Location Tested BP Systolic BP Type Fetus Heart Rate Present Fetus Movement Comments Flowsheet Date 01/26/2022 Mckinney Score Blood Edema Fundus Height Fundus Units Glucose Ketones Leukocytes Nitrite Labor Signs Protein Cervic Dilation Cervic Effacement Cervic Station Type Weight in lbs Pre/Post Dialysis Refused BP Diastolic BP Location Tested BP Systolic BP Type Fetus Heart Rate Present Fetus Movement Comments Flowsheet Date 01/26/2022 Mckinney Score Blood Edema Fundus Height Fundus Units Glucose Ketones Leukocytes Nitrite Labor Signs Protein Cervic Dilation Cervic Effacement Cervic Station neg trace none trace Type Weight in lbs Pre/Post Dialysis Refused Weight 242.787146592755 BP Diastolic BP Location Tested BP Systolic BP Type 85 144 Fetus Heart Rate Present Fetus Movement A Yes Comments patient is having pain, cont ractions, and swelling. EFW 84%, on light duty, some contractions, mild, discussed ptl precautions and when to go in. plan to stop working if needs admission to hospital again for PTL, precautions reviewed and call for preadmit remind at next visit. elevated bp asymptomatic Flowsheet Date 02/02/2022 Mckinney Score Blood Edema Fundus Height Fundus Units Glucose Ketones Leukocytes Nitrite Labor Signs Protein Cervic Dilation Cervic Effacement Cervic Station Type Weight in lbs Pre/Post Dialysis Refused BP Diastolic BP Location Tested BP Systolic BP Type Fetus Heart Rate Present Fetus Movement Comments Flowsheet Date 02/02/2022 Mckinney Score Blood Edema Fundus Height Fundus Units Glucose Ketones Leukocytes Nitrite Labor Signs Protein Cervic Dilation Cervic Effacement Cervic Station Type Weight in lbs Pre/Post Dialysis Refused BP Diastolic BP Location Tested BP Systolic BP Type Fetus Heart Rate Present Fetus Movement Comments Flowsheet Date 02/02/2022 Mckinney Score Blood Edema Fundus Height Fundus Units Glucose Ketones Leukocytes Nitrite Labor Signs Protein Cervic Dilation Cervic Effacement Cervic Station neg trace none trace Type Weight in lbs Pre/Post Dialysis Refused Weight 243.244011924077 BP Diastolic BP Location Tested BP Systolic BP Type 85 123 Fetus Heart Rate Present Fetus Movement A Yes Comments patient states that having s ome left leg numbness, pain, contractions, and swelling. bpp 8/, rec chiropractor, ptl precautions f/u next week Flowsheet Date 02/09/2022 Mckinney Score Blood Edema Fundus Height Fundus Units Glucose Ketones Leukocytes Nitrite Labor Signs Protein Cervic Dilation Cervic Effacement Cervic Station Type Weight in lbs Pre/Post Dialysis Refused BP Diastolic BP Location Tested BP Systolic BP Type Fetus Heart Rate Present Fetus Movement Comments Flowsheet Date 02/09/2022 Mckinney Score Blood Edema Fundus Height Fundus Units Glucose Ketones Leukocytes Nitrite Labor Signs Protein Cervic Dilation Cervic Effacement Cervic Station Type Weight in lbs Pre/Post Dialysis Refused BP Diastolic BP Location Tested BP Systolic BP Type Fetus Heart Rate Present Fetus Movement Comments Flowsheet Date 02/09/2022 Mckinney Score Blood Edema Fundus Height Fundus Units Glucose Ketones Leukocytes Nitrite Labor Signs Protein Cervic Dilation Cervic Effacement Cervic Station neg trace none trace Type Weight in lbs Pre/Post Dialysis Refused Weight 242.455636407838 BP Diastolic BP Location Tested BP Systolic BP Type 77 122 Fetus Heart Rate Present Fetus Movement A Yes Comments patient states that having l eft leg numbness, pain, contractions, dizziness and swelling. bpp 8/ reviewed precautions increase rest, kick counts, growth next week, gbs in urine Flowsheet Date 02/16/2022 Mckinney Score Blood Edema Fundus Height Fundus Units Glucose Ketones Leukocytes Nitrite Labor Signs Protein Cervic Dilation Cervic Effacement Cervic Station Type Weight in lbs Pre/Post Dialysis Refused BP Diastolic BP Location Tested BP Systolic BP Type Fetus Heart Rate Present Fetus Movement Comments Flowsheet Date 02/16/2022 Mckinney Score Blood Edema Fundus Height Fundus Units Glucose Ketones Leukocytes Nitrite Labor Signs Protein Cervic Dilation Cervic Effacement Cervic Station Type Weight in lbs Pre/Post Dialysis Refused BP Diastolic BP Location Tested BP Systolic BP Type Fetus Heart Rate Present Fetus Movement Comments Flowsheet Date 02/16/2022 Mckinney Score Blood Edema Fundus Height Fundus Units Glucose Ketones Leukocytes Nitrite Labor Signs Protein Cervic Dilation Cervic Effacement Cervic Station trace trace none trace Type Weight in lbs Pre/Post Dialysis Refused Weight 246.188177556771 BP Diastolic BP Location Tested BP Systolic BP Type 92 146 90 160 Fetus Heart Rate Present Fetus Movement A Decreased Comments patient is having pain, cont ractions, heartburn and swelling. bp elevated nst nr, bpp 8/8, decreased movement to ld for labs and further monitoring Flowsheet Date 02/18/2022 Mckinney Score Blood Edema Fundus Height Fundus Units Glucose Ketones Leukocytes Nitrite Labor Signs Protein Cervic Dilation Cervic Effacement Cervic Station Type Weight in lbs Pre/Post Dialysis Refused BP Diastolic BP Location Tested BP Systolic BP Type Fetus Heart Rate Present Fetus Movement Comments Flowsheet Date 02/23/2022 Mckinney Score Blood Edema Fundus Height Fundus Units Glucose Ketones Leukocytes Nitrite Labor Signs Protein Cervic Dilation Cervic Effacement Cervic Station Type Weight in lbs Pre/Post Dialysis Refused BP Diastolic BP Location Tested BP Systolic BP Type Fetus Heart Rate Present Fetus Movement Comments Flowsheet Date 02/23/2022 Mckinney Score Blood Edema Fundus Height Fundus Units Glucose Ketones Leukocytes Nitrite Labor Signs Protein Cervic Dilation Cervic Effacement Cervic Station Type Weight in lbs Pre/Post Dialysis Refused BP Diastolic BP Location Tested BP Systolic BP Type Fetus Heart Rate Present Fetus Movement Comments Flowsheet Date 02/23/2022 Mckinney Score Blood Edema Fundus Height Fundus Units Glucose Ketones Leukocytes Nitrite Labor Signs Protein Cervic Dilation Cervic Effacement Cervic Station neg trace neg 1cm 40% -3 Type Weight in lbs Pre/Post Dialysis Refused Weight 246.408717658267 BP Diastolic BP Location Tested BP Systolic BP Type 92 141 Fetus Heart Rate Present Fetus Movement A Decreased Comments Patient c/o reduced mo vement, swelling, vomiting, and contractions, reviewed kick counts LGA efw AC>99%, reviewed with dr Martin next week, check [id number] Flowsheet Date 03/16/2022 Mckinney Score Blood Edema Fundus Height Fundus Units Glucose Ketones Leukocytes Nitrite Labor Signs Protein Cervic Dilation Cervic Effacement Cervic Station Type Weight in lbs Pre/Post Dialysis Refused Weight 211.262294615919 BP Diastolic BP Location Tested BP Systolic BP Type 70 114 Fetus Heart Rate Present Fetus Movement Comments Flowsheet Date 03/17/2022 Mckinney Score Blood Edema Fundus Height Fundus Units Glucose Ketones Leukocytes Nitrite Labor Signs Protein Cervic Dilation Cervic Effacement Cervic Station Type Weight in lbs Pre/Post Dialysis Refused BP Diastolic BP Location Tested BP Systolic BP Type Fetus Heart Rate Present Fetus Movement Comments Flowsheet Date 03/17/2022 Mckinney Score Blood Edema Fundus Height Fundus Units Glucose Ketones Leukocytes Nitrite Labor Signs Protein Cervic Dilation Cervic Effacement Cervic Station Type Weight in lbs Pre/Post Dialysis Refused Weight 211.981913365152 BP Diastolic BP Location Tested BP Systolic BP Type 86 L arm 126 sitting Fetus Heart Rate Present Fetus Movement Comments Flowsheet Date 04/08/2022 Mckinney Score Blood Edema Fundus Height Fundus Units Glucose Ketones Leukocytes Nitrite Labor Signs Protein Cervic Dilation Cervic Effacement Cervic Station Type Weight in lbs Pre/Post Dialysis Refused Weight 212.48595247161 BP Diastolic BP Location Tested BP Systolic BP Type 84 134 Fetus Heart Rate Present Fetus Movement Comments Flowsheet Date 05/27/2022 Mckinney Score Blood Edema Fundus Height Fundus Units Glucose Ketones Leukocytes Nitrite Labor Signs Protein Cervic Dilation Cervic Effacement Cervic Station Type Weight in lbs Pre/Post Dialysis Refused Weight 221.284419993527 BP Diastolic BP Location Tested BP Systolic BP Type 70 L arm 123 sitting Fetus Heart Rate Present Fetus Movement Comments Menstrual History Last Menstrual Date Menses Monthly On Bcp Conception Prior Menses Frequency Hcg Plus Date Menarche Onset Age 0206/16/2021 Genetic Screening And Infection History Question Response Note Mental Retardation/Autism false Patient's Age Will Be 35 Years Or Older At Estim ated Date of Delivery false Thalassemia (Occitan, Citizen Of [place], Mediterranean, Or Background): MCV < 80 false Neural Tube Defect (Meningomyelocele, Spina Bifi da, Or Anencephaly) false Congenital Heart Defect false Down Syndrome false Curt-Sachs (eg, Samaritan, Cajun, [place]) f alse Yung Disease false Sickle Cell Disease Or Trait () false Hemophilia Or Other Blood Disorders false Muscular Dystrophy false Cystic Fibrosis false [place] false Intellectual Disability/Autism false If Yes, Was Person Tested For Fragile X? false Other Inherited Genetic Or Chromosomal Disorder false Maternal Metabolic Disorder (eg, Type 1 Diabetes , PKU) false Patient Or Baby's Father Had A Child With Defects Not Listed Above false Recurrent Loss, Or A Stillbirth false Medications (including Suppl ements, Vitamins, Herbs, OTC Drugs), Illicit/Recreational Drugs, Alcohol false If Yes, Agent(s) And Strength/Dosage false Any Other Genetic History false Live With Someone With TB Or Exposed To TB false Patient Or Partner Has History Of Genital Herpes false Rash Or Viral Illness Since Last Menstrual Perio d false History Of STD, Gonorrhea, Chlamydia, HPV, Syphi lis false Other Infection History false History of HIV false History of Hepatitis false Prior GBS-infected child false Hemoglobinopathy Or Carrier false Other Structural Defect false Recent Travel History Outside of Country false Delivery Information Delivery Date Delivery Type Labor Anesthesia Weeks Gestation Incision Type Labor Labor Length Hrs Delivered By Post Complications Tubal Sterilization Discharge Date Comments 2 Induce d Regional-Ep idural 37 false Peter Bryant CNKezia Maternal obesity, Gbs+ and pre eclampsia w/o severe features Discharge Information Feeding Method Contraceptive Method Maternal HG B and HCT Levels Breast Ob Episode Information Episode Created Date Number of Fetuses Patient Bloodtype Patient rh Status Prepregnancy Weight lbs Domestic Partner Domestic Partner Phone 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 Status 06/05/19 25 2 A Positive 198 Gabriel Mo OPEN Fetus Data First Name Last Name Admitted to NICU Weight (g) Sex Living Outcome Pediatric Complications Fetus ID Race Codes Race Delivery Type [id number] Problems Problem Notes Anatomy with [facility] - 07/31/24 1 300 [facility] U/S & OV [facility] 08/27/24 US only 1:00PM Problem Name Start Date End Date Resolution Snomed Code Not e care: history of infertility 446006433 Past history of shoulder dystocia [id number] Large for gestation age fetus [id number] less then 30 se c shoulder dystocia Past history of pre-eclampsia [id number] bASA x2 Migraine [id number] magnesium, Excedrin tension, sumatriptan 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 [id number] Palpitations [id number] Holter monitor faxed to [facility] 07/29 Twin [id number] 38 wk deliveryantenatal testing @ 32wks per MFM Darren Calculation Initial Darren Date Initial Exam Date Initial Exam Provider Initial Ultrasound Date Last Menstrual Period Date Ultra Sound Weeks Gestation 12/19/2024 04/23/2024 peter seth 04/23/2024 5 Eighteen To Twenty Week Darren Update Ultra Sound Date Fundal Height At Umbil Quickening Date Ultra Sound Latest Weeks Gestation Final Darren Confirmed By Final Darren Confirmed Date Final Darren Date Ultra Sound Latest Days Gestation 0 12/20/19 25 0 Pre- Flowsheet Flowsheet Date 06/05/2024 Mckinney Score Blood Edema Fundus Height Fundus Units Glucose Ketones Leukocytes Nitrite Labor Signs Protein Cervic Dilation Cervic Effacement Cervic Station neg none none trace Type Weight in lbs Pre/Post Dialysis Refused Weight 207.128098689256 BP Diastolic BP Location Tested BP Systolic BP Type 79 148 87 127 Fetus Heart Rate Present Fetus Movement A Yes B Yes Comments Patient states that had some spotting this week. headache, cramping, nausea and vomiting. reviewed US, subchorionic hemorrhage still present, having a really hard time anytime shes up only time its comfortable is in a recliner. discussed filling out disability paperwork. will plan on referral to [facility] for anatomy and history of HTN/preeclampsia, twin getstaion, LGA, f/u here in 4 weeks armond need to schedule appt with dr arrieta for nauseaha x 3 days without relief mitrex to pharmacy Flowsheet Date 06/12/2024 Mckinney Score Blood Edema Fundus Height Fundus Units Glucose Ketones Leukocytes Nitrite Labor Signs Protein Cervic Dilation Cervic Effacement Cervic Station Type Weight in lbs Pre/Post Dialysis Refused BP Diastolic BP Location Tested BP Systolic BP Type Fetus Heart Rate Present Fetus Movement Comments Flowsheet Date 07/01/2024 Mckinney Score Blood Edema Fundus Height Fundus Units Glucose Ketones Leukocytes Nitrite Labor Signs Protein Cervic Dilation Cervic Effacement Cervic Station Type Weight in lbs Pre/Post Dialysis Refused BP Diastolic BP Location Tested BP Systolic BP Type Fetus Heart Rate Present Fetus Movement Comments Flowsheet Date 07/03/2024 Mckinney Score Blood Edema Fundus Height Fundus Units Glucose Ketones Leukocytes Nitrite Labor Signs Protein Cervic Dilation Cervic Effacement Cervic Station neg none Type Weight in lbs Pre/Post Dialysis Refused 214.510102526330 BP Diastolic BP Location Tested BP Systolic BP Type 82 123 Fetus Heart Rate Present Fetus Movement A Yes B Yes Comments Patient is having some itchi ng, pelvic pain, nausea and vomiting. reviewed US, rash on arms and back, allergic to prednisone, ok for topical, bASA daily, girls!, precautions and education, ok for anatomy here. f/u 4 weeks Flowsheet Date 07/08/2024 Mckinney Score Blood Edema Fundus Height Fundus Units Glucose Ketones Leukocytes Nitrite Labor Signs Protein Cervic Dilation Cervic Effacement Cervic Station neg none Type Weight in lbs Pre/Post Dialysis Refused Weight 216.643524198018 BP Diastolic BP Location Tested BP Systolic BP Type 82 L arm 148 sitting Fetus Heart Rate Present A 150 B 140 Fetus Movement A No B No Comments Doing ok, movement dec reased. Feeling some movements but less than previously. Had some contractions over the weekend, improve with laying down and warm baths. Taking flexeril PRN. No bleeding. Will send for anatomy at [facility]. Will measure for belly band today due to pelvic pressure and contractions. Discussed early onset of pelvic pain/pressure with twins, no concerning signs for labor. RTC 3-4 weeks. Flowsheet Date 07/12/2024 Mckinney Score Blood Edema Fundus Height Fundus Units Glucose Ketones Leukocytes Nitrite Labor Signs Protein Cervic Dilation Cervic Effacement Cervic Station Type Weight in lbs Pre/Post Dialysis Refused BP Diastolic BP Location Tested BP Systolic BP Type Fetus Heart Rate Present Fetus Movement Comments Flowsheet Date 07/31/2024 Mckinney Score Blood Edema Fundus Height Fundus Units Glucose Ketones Leukocytes Nitrite Labor Signs Protein Cervic Dilation Cervic Effacement Cervic Station neg trace Type Weight in lbs Pre/Post Dialysis Refused 220.708041930626 BP Diastolic BP Location Tested BP Systolic BP Type 92 152 53 114 Fetus Heart Rate Present Fetus Movement A Yes B Yes Comments Patient is having headaches, pain, contractions, swelling, Had elevated heart rate over the weekend and get heart moniter on , 08/08/24. saw [facility] this morning rec 2 bASA, will rpt anatomy in 4 weeks, precautions and education f/u 4 weeks Menstrual History Last Menstrual Date Menses Monthly On Bcp Conception Prior Menses Frequency Hcg Plus Date Menarche Onset Age Delivery Information Delivery Date Delivery Type Labor Anesthesia Weeks Gestation Incision Type Labor Labor Length Hrs Delivered By Post Complications Tubal Sterilization Discharge Date Comments Discharge Information Feeding Method Contraceptive Method Maternal HG B and HCT Levels
--- OUTSIDE RECORDS SUMMARY | 2024-08-08 09:18 | XMS_ITS | Data Portability ---
Author Organization [facility] TJCathy [place] Address [address] [place] [address] Care Team Providers Care Viticulture Teacher Name Role Phone ZO MORA OTHER [phone] Assessment Encounter Date Assessment Date Assessment LastModified [...] w/ auto diff 2018 019 [facility], [address] [place] [address], [place], [address], 9 06:40:13 ferritin, serum or plasma 2018 019 [facility], [address] [place] [address], [place], [address], 9 06:40:14 iron + total iron-bindin g capacity (TIBC), serum 2018 019 [facility], [address] [place] [address], [place], [address], 9 06:40:14 HIV 1+2 AB + HIV 1 p24 Ag, qualitative immunoassay , serum 2018 019 [facility], [address] [facility] [address], [place], [address], 9 07:12:01 HBsAg (hepatitis B surface Ag), EIA, serum 2018 019 [facility], [address], [place], [address], 9 07:12:02 hepatitis C Ab, signal-to-c utoff, serum or plasma 2018 019 [facility], [address], [place], [address], 9 07:12:01 RPR (rapid plasma reagin), serum 2018 019 [facility], [address] [facility], [address], [place], [address], 9 07:12:00 hsv (1+2) igg Ab, serum 2018 019 [facility], [address] [facility], [facility] [address], [place], [address], 9 07:12:00 CBC w/ auto diff 2018 019 [facility], [address] [facility], [address], [place], [address], 9 07:11:59 Referral general surgeon referral 2018 019 LANA Moralez MD, [address] [facility] , [facility] [address], [place], [address], 9 12:38:24 ENT referral - Saw Dr. Mora --- need a second opinion. 2018 019 [facility], [address] [facility], [address], [place], [address], 9 17:55:21 Procedures None recorded. Surgeries None recorded. Imaging None recorded. Medication Orders ferrous sulfate 325 mg (65 mg iron) tablet [address] [facility], [address] [place], [address], 9 11:26:58 Mucinex 600 mg tablet, extended release [address] [facility] [address] [facility], [address] [place], [address], 9 00:24:12 ferrous sulfate 325 mg (65 mg iron) tablet [address] [facility] [address] [facility], [address] [place], [address], 9 12:48:40 Tessalon Perles 100 mg capsule [address] [facility] [address] [facility], [address] [place], [address], 9 00:24:06 Patient TargetsNo targets recorded. Patient Instructions Encounter Date Encounter Id Patient Instructions Last Modified By Organization Details Last Modified Time 07/27/2018 [id number] upper respirator y infection (cold): care instructions Not available 07/27/2018 13:23:41 08/29/2018 [id number] hemorrhoids: car e instructions Not available 08/29/2018 16:13:52 anemia: care instructions Not available 08/29/2018 18:08:26 09/05/2018 [id number] Acute Sinusitis: Care Instructions Not available 09/05/2018 12:48:40 11/13/2018 [id number] hemorrhoids: car e instructions Not available 11/27/2018 00:17:15 02/13/2019 [id number] dizziness: care instructions Not available 02/13/2019 11:26:58 electrocardiogra m interpretation* ATHENAFAX Not available 03/13/2019 15:05:29 Reason for Referral ENT Referral for Cervical ly mphadenopathy Saw Dr. Mora --- need a second opinion. Referring Physician: Lucero Sandoval, Family Medicine, Encounter Date: 07/27/2018 General Surgeon Referral for Hemorrhoids Referring Physician: Ricardo Ramirez, DYNAMITE RECLAIMER, Encounter Date: 08/29/2018 Results Created Date Observation Date Name Description Value Unit Range Abnormal Flag Note LastModifiedBy Organization Detail LastModifiedTime 07/04/19 19 07/05/2018 TSH + free T4, serum TSH 3.080 uIU/m L 0.450- 4.500 Not Available [facility] ([facility]) [address] [place], [address], 07/05/2018 09:23:03 07/04/19 19 07/05/2018 TSH + free T4, serum T4,free(dire ct) 1.06 NG/dL 0.82-1 .77 Not Available [facility] ([facility]) [address] [place], [address], 07/05/2018 09:23:03 07/04/19 19 07/04/2018 CBC w/ auto diff WBC 7.2 x10e3 /uL 3.4-10 .8 Not Available [facility] ([facility]) [address] [place], [address], 07/05/2018 09:23:03 07/04/19 19 07/04/2018 CBC w/ auto diff RBC 4.87 x10e6 /uL 3.77-5 .28 Not Available [facility] ([facility]) [address] [place], [address], 07/05/2018 09:23:03 07/04/19 19 07/04/2018 CBC w/ auto diff hemoglobin 11.5 g/dL 11.1-1 5.9 Not Available [facility] ([facility]) [address] [place], [address], 07/05/2018 09:23:03 07/04/19 19 07/04/2018 CBC w/ auto diff hematocrit 36.2 % 34.0-4 6.6 Not Available [facility] ([facility]) [address] [facility], [place], [address], 07/05/2018 09:23:03 07/04/19 19 07/04/2018 CBC w/ auto diff MCV 74 fL 79-97 below low normal Not Available [facility] ([facility]) [address] [facility], [place], [address], 07/05/2018 09:23:03 07/04/19 19 07/04/2018 CBC w/ auto diff MCH 23.6 pg 26.6-3 3.0 below low normal Not Available [facility] ([facility]) [address] [facility], [place], [address], 07/05/2018 09:23:03 07/04/19 19 07/04/2018 CBC w/ auto diff MCHC 31.8 g/dL 31.5-3 5.7 Not Available [facility] ([facility]) [address] [facility], [place], [address], 07/05/2018 09:23:03 07/04/19 19 07/04/2018 CBC w/ auto diff RDW 16.0 % 12.3-1 5.4 above high normal Not Available [facility] ([facility]) [address] [facility], [place], [address], 07/05/2018 09:23:03 07/04/19 19 07/04/2018 CBC w/ auto diff platelets 480 x10e3 /uL 150-37 9 above high normal Not Available [facility] ([facility]) [address] [facility], [place], [address], 07/05/2018 09:23:03 07/04/19 19 07/04/2018 CBC w/ auto diff neutrophils 64 % not estab. Not Available [facility] ([facility]) [address] [facility], [place], [address], 07/05/2018 09:23:03 07/04/19 19 07/04/2018 CBC w/ auto diff lymphs 28 % not estab. Not Available [facility] ([facility]) [address] [place], [address], 07/05/2018 09:23:03 07/04/19 19 07/04/2018 CBC w/ auto diff monocytes 6 % not estab. Not Available [facility] ([facility]) [address] [place], [address], 07/05/2018 09:23:03 07/04/19 19 07/04/2018 CBC w/ auto diff eos 1 % not estab. Not Available [facility] ([facility]) [address] [place], [address], 07/05/2018 09:23:03 07/04/19 19 07/04/2018 CBC w/ auto diff basos 1 % not estab. Not Available [facility] ([facility]) [address] [facility], [place], [address], 07/05/2018 09:23:03 07/04/1907/04/2018 CBC w/ auto diff immature cells GRAIN MERCHANDISING MANAGER Not Available [facility] ([facility]) [address] [place], [address], 07/05/2018 09:23:03 07/04/19 19 07/04/2018 CBC w/ auto diff neutrophils (absolute) 4.6 x10e3 /uL 1.4-7. 0 Not Available [facility] ([facility]) [address] [place], [address], 07/05/2018 09:23:03 07/04/19 19 07/04/2018 CBC w/ auto diff lymphs (absolute) 2.0 x10e3 /uL 0.7-3. 1 Not Available [facility] ([facility]) [address] [place], [address], 07/05/2018 09:23:03 07/04/19 19 07/04/2018 CBC w/ auto diff monocytes(ab solute) 0.5 x10e3 /uL 0.1-0. 9 Not Available [facility] ([facility]) [address] [place], [address], 07/05/2018 09:23:03 07/04/19 19 07/04/2018 CBC w/ auto diff eos (absolute) 0.1 x10e3 /uL 0.0-0. 4 Not Available [facility] ([facility]) [address] [facility], [place], [address], 07/05/2018 09:23:03 07/04/19 19 07/04/2018 CBC w/ auto diff baso (absolute) 0.1 x10e3 /uL 0.0-0. 2 Not Available [facility] ([facility]) [address] [facility], [place], [address], 07/05/2018 09:23:03 07/04/19 19 07/04/2018 CBC w/ auto diff immature granulocytes 0 % not estab. Not Available [facility] ([facility]) [address] [place], [address], 07/05/2018 09:23:03 07/04/19 19 07/04/2018 CBC w/ auto diff immature grans (abs) 0.0 x10e3 /uL 0.0-0. 1 Not Available [facility] ([facility]) [address] [place], [address], 07/05/2018 09:23:03 07/04/19 19 07/04/2018 CBC w/ auto diff NRBC GRAIN MERCHANDISING MANAGER Not Available [facility] ([facility]) [address] [place], [address], 07/05/2018 09:23:03 07/04/19 19 07/04/2018 CBC w/ auto diff hematology comments: GRAIN MERCHANDISING MANAGER Not Available [facility] ([facility]) [address] [facility], [place], [address], 07/05/2018 09:23:03 07/04/19 19 07/05/2018 CMP, serum or plasm a glucose 90 mg/dL 65-99 Not Available [facility] ([facility]) [address] [place], [address], 07/05/2018 09:23:04 07/04/19 19 07/05/2018 CMP, serum or plasm a BUN 9 mg/dL 6-20 Not Available [facility] ([facility]) [address] [place], [address], 07/05/2018 09:23:04 07/04/19 19 07/05/2018 CMP, serum or plasm a creatinine 0.66 mg/dL 0.57-1 .00 Not Available [facility] ([facility]) [address] [place], [address], 07/05/2018 09:23:04 07/04/19 19 07/05/2018 CMP, serum or plasm a eGFR if nonafricn AM 123 mL/mi n/1.7 3 >59 Not Available [facility] ([facility]) [address] [place], [address], 07/05/2018 09:23:04 07/04/19 19 07/05/2018 CMP, serum or plasm a eGFR if africn AM 142 mL/mi n/1.7 3 >59 Not Available [facility] ([facility]) [address] [place], [address], 07/05/2018 09:23:04 07/04/19 19 07/05/2018 CMP, serum or plasm a BUN/creatini ne ratio 14 9-23 Not Available [facility] ([facility]) [address] [place], [address], 07/05/2018 09:23:04 07/04/19 19 07/05/2018 CMP, serum or plasm a sodium 139 mmol/ L 134-14 4 Not Available [facility] ([facility]) [address] [facility] [place], [address], 07/05/2018 09:23:04 07/04/19 19 07/05/2018 CMP, serum or plasm a potassium 4.4 mmol/ L 3.5-5. 2 Not Available [facility] ([facility]) [address] [facility] [place], [address], 07/05/2018 09:23:04 07/04/19 19 07/05/2018 CMP, serum or plasm a chloride 102 mmol/ L 96-106 Not Available [facility] ([facility]) [address] [facility] [place], [address], 07/05/2018 09:23:04 07/04/19 19 07/05/2018 CMP, serum or plasm a carbon dioxide, total 23 mmol/ L 20-29 Not Available [facility] ([facility]) [address] [facility] [place], [address], 07/05/2018 09:23:04 07/04/1907/05/2018 CMP, serum or plasm a calcium 9.7 mg/dL 8.7-10 .2 Not Available [facility] ([facility]) [address] [facility] [place], [address], 07/05/2018 09:23:04 07/04/19 19 07/05/2018 CMP, serum or plasm a protein, total 8.1 g/dL 6.0-8. 5 Not Available [facility] ([facility]) [address] [facility] [place], [address], 07/05/2018 09:23:04 07/04/1907/05/2018 CMP, serum or plasm a albumin 4.6 g/dL 3.5-5. 5 Not Available [facility] ([facility]) [address] [facility] [place], [address], 07/05/2018 09:23:04 07/04/19 19 07/05/2018 CMP, serum or plasm a globulin, total 3.5 g/dL 1.5-4. 5 Not Available [facility] ([facility]) [address] [facility] [place], [address], 07/05/2018 09:23:04 07/04/1907/05/2018 CMP, serum or plasm a A/G ratio 1.3 1.2-2. 2 Not Available [facility] ([facility]) [address] [facility] [place], [address], 07/05/2018 09:23:04 07/04/1907/05/2018 CMP, serum or plasm a bilirubin, total 0.3 mg/dL 0.0-1. 2 Not Available [facility] ([facility]) [address] [place], [address], 07/05/2018 09:23:04 07/04/1907/05/2018 CMP, serum or plasm a alkaline phosphatase 68 IU/L 39-117 Not Available [facility] ([facility]) [address] [facility] [place], [address], 07/05/2018 09:23:04 07/04/1907/05/2018 CMP, serum or plasm a AST (SGOT) 20 IU/L 0-40 Not Available [facility] ([facility]) [address] [place], [address], 07/05/2018 09:23:04 07/04/1907/05/2018 CMP, serum or plasm a ALT (SGPT) 15 IU/L 0-32 Not Available [facility] ([facility]) [address] [place], [address], 07/05/2018 09:23:04 07/04/1907/05/2018 cytom egalo virus (cmv) igg+i gm Ab, serum cytomegalovi yung (CMV) Ab, IgG <0.60 U/mL 0.00-0 .59 Negat hayde <0.60 Equiv ocal 0.60 - 0.69 Posit hayde >0.69 Not Available [facility] ([facility]) [address] [facility], [place], [address], 07/05/2018 09:23:04 07/04/1907/05/2018 cytom egalo virus (cmv) igg+i gm Ab, serum cytomegalovi yung (CMV) Ab, IgM <30.0 AU/mL 0.0-29 .9 Negat hayde <30.0 Equiv ocal 30.0 - 34.9 Posit hayde >34.9 A posit hayde resul t is gener ally indic ative of acute infec tion, react ivati on or persi stent IgM produ ction . Not Available [facility] ([facility]) [address] [facility], [place], [address], 07/05/2018 09:23:04 07/04/1907/05/2018 RPR (rapi d plasm a reagi n), serum RPR Non Reacti ve non reacti ve Not Available [facility] ([facility]) [address] [facility], [place], [address], 07/05/2018 09:23:05 07/04/1907/05/2018 heter ophil e Ab, quali tativ e latex agglu tinat ion, serum mono qual w/rflx qn Negati ve negati ve The sensi tivit y of Heter ophil e antib srinivasan testi ng is 80-90 %. Epste in [place] IgM testi ng offer s highe r sensi tivit y. Not Available [facility] ([facility]) [address] [facility], [place], [address], 07/05/2018 09:23:06 08/30/1908/30/2018 CBC w/ auto diff WBC 7.4 x10e3 /uL 3.4-10 .8 Not Available [facility] ([facility]) [address] [facility], [place], [address], 08/30/2018 07:11:59 08/30/19 19 08/30/2018 CBC w/ auto diff RBC 4.51 x10e6 /uL 3.77-5 .28 Not Available [facility] ([facility]) [address] [place], [address], 08/30/2018 07:11:59 08/30/19 19 08/30/2018 CBC w/ auto diff hemoglobin 11.0 g/dL 11.1-1 5.9 below low normal Not Available [facility] ([facility]) [address] [place], [address], 08/30/2018 07:11:59 08/30/1908/30/2018 CBC w/ auto diff hematocrit 34.2 % 34.0-4 6.6 Not Available [facility] ([facility]) [address] [place], [address], 08/30/2018 07:11:59 08/30/1908/30/2018 CBC w/ auto diff MCV 76 fL 79-97 below low normal Not Available [facility] ([facility]) [address] [place], [address], 08/30/2018 07:11:59 08/30/1908/30/2018 CBC w/ auto diff MCH 24.4 pg 26.6-3 3.0 below low normal Not Available [facility] ([facility]) [address] [place], [address], 08/30/2018 07:11:59 08/30/1908/30/2018 CBC w/ auto diff MCHC 32.2 g/dL 31.5-3 5.7 Not Available [facility] ([facility]) [address] [place], [address], 08/30/2018 07:11:59 08/30/1908/30/2018 CBC w/ auto diff RDW 15.6 % 12.3-1 5.4 above high normal Not Available [facility] ([facility]) [address] [place], [address], 08/30/2018 07:11:59 08/30/19 19 08/30/2018 CBC w/ auto diff platelets 389 x10e3 /uL 150-37 9 above high normal Not Available [facility] ([facility]) [address] [facility], [place], [address], 08/30/2018 07:11:59 08/30/19 19 08/30/2018 CBC w/ auto diff neutrophils 59 % not estab. Not Available [facility] ([facility]) [address] [facility], [place], [address], 08/30/2018 07:11:59 08/30/19 19 08/30/2018 CBC w/ auto diff lymphs 31 % not estab. Not Available [facility] ([facility]) [address] [facility], [place], [address], 08/30/2018 07:11:59 08/30/1908/30/2018 CBC w/ auto diff monocytes 8 % not estab. Not Available [facility] ([facility]) [address] [facility], [place], [address], 08/30/2018 07:11:59 08/30/1908/30/2018 CBC w/ auto diff eos 1 % not estab. Not Available [facility] ([facility]) [address] [facility], [place], [address], 08/30/2018 07:11:59 08/30/1908/30/2018 CBC w/ auto diff basos 1 % not estab. Not Available [facility] ([facility]) [address] [facility], [place], [address], 08/30/2018 07:11:59 08/30/1908/30/2018 CBC w/ auto diff immature cells GRAIN MERCHANDISING MANAGER Not Available [facility] ([facility]) [address] [facility], [place], [address], 08/30/2018 07:11:59 08/30/19 19 08/30/2018 CBC w/ auto diff neutrophils (absolute) 4.4 x10e3 /uL 1.4-7. 0 Not Available [facility] ([facility]) [address] [place], [address], 08/30/2018 07:11:59 08/30/1908/30/2018 CBC w/ auto diff lymphs (absolute) 2.3 x10e3 /uL 0.7-3. 1 Not Available [facility] ([facility]) [address] [place], [address], 08/30/2018 07:11:59 08/30/1908/30/2018 CBC w/ auto diff monocytes(ab solute) 0.6 x10e3 /uL 0.1-0. 9 Not Available [facility] ([facility]) [address] [place], [address], 08/30/2018 07:11:59 08/30/1908/30/2018 CBC w/ auto diff eos (absolute) 0.1 x10e3 /uL 0.0-0. 4 Not Available [facility] ([facility]) [address] [place], [address], 08/30/2018 07:11:59 08/30/1908/30/2018 CBC w/ auto diff baso (absolute) 0.0 x10e3 /uL 0.0-0. 2 Not Available [facility] ([facility]) [address] [place], [address], 08/30/2018 07:11:59 08/30/1908/30/2018 CBC w/ auto diff immature granulocytes 0 % not estab. Not Available [facility] ([facility]) [address] [place], [address], 08/30/2018 07:11:59 08/30/1908/30/2018 CBC w/ auto diff immature grans (abs) 0.0 x10e3 /uL 0.0-0. 1 Not Available [facility] ([facility]) [address] [facility], [place], [address], 08/30/2018 07:11:59 08/30/1908/30/2018 CBC w/ auto diff NRBC GRAIN MERCHANDISING MANAGER Not Available [facility] ([facility]) [address] [facility], [place], [address], 08/30/2018 07:11:59 08/30/1908/30/2018 CBC w/ auto diff hematology comments: GRAIN MERCHANDISING MANAGER Not Available [facility] ([facility]) [address] [facility], [place], [address], 08/30/2018 07:11:59 08/30/1908/30/2018 hsv (1+2) igg Ab, [...] e, retes t at later date. Posit hyade indic ates antib odies detec willy to HSV-1 . Not Available [facility] ([facility]) [address] [facility], [place], [address], 08/30/2018 07:12:00 08/30/1908/30/2018 hsv (1+2) igg Ab, [...] willy to HSV-2 . Not Available [facility] ([facility]) [address] [facility], [place], [address], 08/30/2018 07:12:00 08/30/19 19 08/30/2018 RPR (rapi d plasm a reagi n), serum RPR Non Reacti ve non reacti ve Not Available [facility] ([facility]) [address] [place], [address], 08/30/2018 07:12:00 08/30/1908/30/2018 HIV 1+2 AB + HIV 1 p24 Ag, quali tativ e immun oassa y, serum HIV screen 4TH generation wrfx Non Reacti ve non reacti ve Not Available [facility] ([facility]) [address] [place], [address], 08/30/2018 07:12:01 08/30/19 19 08/30/2018 hepat itis C Ab, signa l-to- cutof f, serum or plasm a HCV Ab <0.1 s/co_ ratio 0.0-0. 9 Not Available [facility] ([facility]) [address] [place], [address], 08/30/2018 07:12:01 08/30/19 19 08/30/2018 hepat itis C Ab, signa l-to- cutof f, serum or plasm a comment: Commen t Non react hayde HCV antib srinivasan scree n is consi stent with no HCV infec tion, unles s recen t infec tion is suspe cted or other evide nce exist s to indic ate HCV infec tion. Not Available [facility] ([facility]) [address] [place], [address], 08/30/2018 07:12:01 08/30/19 19 08/30/2018 HBsAg (hepa titis B surfa ce Ag), EIA, serum HBsAg screen Negati ve negati ve Not Available [facility] ([facility]) [address] [place], [address], 08/30/2018 07:12:02 02/14/2002/14/2019 CBC w/ auto diff WBC 7.5 x10e3 /uL 3.4-10 .8 Not Available [facility] ([facility]) [address] [facility], [place], [address], 02/14/2019 06:40:13 02/14/2002/14/2019 CBC w/ auto diff RBC 4.34 x10e6 /uL 3.77-5 .28 Not Available [facility] ([facility]) [address] [facility], [place], [address], 02/14/2019 06:40:13 02/14/2002/14/2019 CBC w/ auto diff hemoglobin 11.1 g/dL 11.1-1 5.9 Not Available [facility] ([facility]) [address] [facility], [place], [address], 02/14/2019 06:40:13 02/14/2002/14/2019 CBC w/ auto diff hematocrit 34.2 % 34.0-4 6.6 Not Available [facility] ([facility]) [address] [facility], [place], [address], 02/14/2019 06:40:13 02/14/2002/14/2019 CBC w/ auto diff MCV 79 fL 79-97 Not Available [facility] ([facility]) [address] [facility], [place], [address], 02/14/2019 06:40:13 02/14/2002/14/2019 CBC w/ auto diff MCH 25.6 pg 26.6-3 3.0 below low normal Not Available [facility] ([facility]) [address] [place], [address], 02/14/2019 06:40:13 02/14/2002/14/2019 CBC w/ auto diff MCHC 32.5 g/dL 31.5-3 5.7 Not Available [facility] ([facility]) [address] [facility], [place], [address], 02/14/2019 06:40:13 02/14/2002/14/2019 CBC w/ auto diff RDW 15.0 % 12.3-1 5.4 Not Available [facility] ([facility]) [address] [facility], [place], [address], 02/14/2019 06:40:13 02/14/2002/14/2019 CBC w/ auto diff platelets 372 x10e3 /uL 150-45 0 Not Available [facility] ([facility]) [address] [facility], [place], [address], 02/14/2019 06:40:13 02/14/2002/14/2019 CBC w/ auto diff neutrophils 61 % not estab. Not Available [facility] ([facility]) [address] [facility], [place], [address], 02/14/2019 06:40:13 02/14/2002/14/2019 CBC w/ auto diff lymphs 28 % not estab. Not Available [facility] ([facility]) [address] [facility], [place], [address], 02/14/2019 06:40:13 02/14/2002/14/2019 CBC w/ auto diff monocytes 8 % not estab. Not Available [facility] ([facility]) [address] [facility], [place], [address], 02/14/2019 06:40:13 02/14/2002/14/2019 CBC w/ auto diff eos 2 % not estab. Not Available [facility] ([facility]) [address] [facility], [place], [address], 02/14/2019 06:40:13 02/14/2002/14/2019 CBC w/ auto diff basos 1 % not estab. Not Available [facility] ([facility]) [address] [facility], [place], [address], 02/14/2019 06:40:13 02/14/2002/14/2019 CBC w/ auto diff immature cells GRAIN MERCHANDISING MANAGER Not Available [facility] ([facility]) [address] [facility], [place], [address], 02/14/2019 06:40:13 02/14/2002/14/2019 CBC w/ auto diff neutrophils (absolute) 4.7 x10e3 /uL 1.4-7. 0 Not Available [facility] ([facility]) [address] [facility], [place], [address], 02/14/2019 06:40:13 02/14/2002/14/2019 CBC w/ auto diff lymphs (absolute) 2.1 x10e3 /uL 0.7-3. 1 Not Available [facility] ([facility]) [address] [facility], [place], [address], 02/14/2019 06:40:13 02/14/2002/14/2019 CBC w/ auto diff monocytes(ab solute) 0.6 x10e3 /uL 0.1-0. 9 Not Available [facility] ([facility]) [address] [facility], [place], [address], 02/14/2019 06:40:13 02/14/2002/14/2019 CBC w/ auto diff eos (absolute) 0.1 x10e3 /uL 0.0-0. 4 Not Available [facility] ([facility]) [address] [place], [address], 02/14/2019 06:40:13 02/14/2002/14/2019 CBC w/ auto diff baso (absolute) 0.0 x10e3 /uL 0.0-0. 2 Not Available [facility] ([facility]) [address] [facility], [place], [address], 02/14/2019 06:40:13 02/14/2002/14/2019 CBC w/ auto diff immature granulocytes 0 % not estab. Not Available [facility] ([facility]) [address] [facility], [place], [address], 02/14/2019 06:40:13 02/14/2002/14/2019 CBC w/ auto diff immature grans (abs) 0.0 x10e3 /uL 0.0-0. 1 Not Available [facility] ([facility]) [address] [place] [address], [place], [address], 02/14/2019 06:40:13 02/14/2002/14/2019 CBC w/ auto diff NRBC GRAIN MERCHANDISING MANAGER Not Available [facility] ([facility]) [address] [place] [address], [place], [address], 02/14/2019 06:40:13 02/14/2002/14/2019 CBC w/ auto diff hematology comments: GRAIN MERCHANDISING MANAGER Not Available [facility] ([facility]) [address] [place] [address], [place], [address], 02/14/2019 06:40:13 02/14/2002/14/2019 iron + total iron- leta ng capac ity (TIBC ), serum iron bind.cap.(TI BC) 353 ug/dL 250-45 0 Not Available [facility] ([facility]) [address] [facility], [place], [address], 02/14/2019 06:40:14 02/14/2002/14/2019 iron + total iron- leta ng capac ity (TIBC ), serum UIBC 336 ug/dL 131-42 5 Not Available [facility] ([facility]) [address] [place] [address], [address], 02/14/2019 06:40:14 02/14/2002/14/2019 iron + total iron- leta ng capac ity (TIBC ), serum iron 17 ug/dL 27-159 below low normal Not Available [facility] ([facility]) [address] [facility], [place], [address], 02/14/2019 06:40:14 02/14/2002/14/2019 iron + total iron- leta ng capac ity (TIBC ), serum iron saturation 5 % 15-55 alert low Not Available [facility] ([facility]) [address] [facility], [place], [address], 02/14/2019 06:40:14 02/14/2002/14/2019 cristina tin, serum or plasm a ferritin, serum 7 NG/mL 15-150 below low normal Not Available [facility] ([facility]) [address] [facility], [place], [address], 02/14/2019 06:40:14 07/04/19 19 07/04/2018 XR, chest No observ ation record ed. [email or web address] [address] [place], [address], 07/06/2018 16:35:07 08/16/19 19 08/09/2018 CT, neck, soft tissu e, w/ contr ast No observ ation record ed. [address] [place], [address], 11/27/2018 00:09:00 08/17/19 19 08/16/2018 CT, sinus es, w/o contr ast No observ ation record ed. [address] [place], [address], 08/16/2018 13:21:28 Result Notes None recorded. Problems Name Problem SNOMED Code Status Onset Date Resolution Date Notes Provider Name and Address Organization Details Recorded Time Disorder of thyroid gland 78317380 Completed 201811/26/2018 DIONNE New [facility] 9 00:12:22 Cervical lymphade nopathy 172351080 Active 2018 DIONNE [facility] 9 11:15:19 Upper respirat ory infectio n 33759749 Completed 201811/13/2018 [place] [facility] 9 11:05:53 Mean corpuscu lar volume below referenc e range 192047842 Active 2018 [place] [facility] 9 12:49:50 Acute sinusiti s 77380016 Completed 201811/13/2018 [place] [facility] 9 11:05:49 History of Helicoba cter pylori infectio n 00824392712 225565 Active 2018 [place] [facility] 9 00:05:39 Chronic gastriti s 4768917 Active 2018 EGD - H pylori, [place] [facility] 9 00:06:03 Hemorrho ids 90162426 Active 2018 Gen sx planning for hemorrho idectomy [place] [facility] 9 00:06:27 Dizzines s 371282462 Active 2018 [place] [facility] 9 11:29:10 Infectiv e vaginiti s 714370431 Active Radha [place] [facility] 6 11:25:47 Infectiv e vaginiti s 848139936 Completed Shahrzad Barrera [place] [facility] 5 09:18:25 Maternal care for diminish ed movement s Active Radha [place] [facility] 6 11:25:47 Maternal care for diminish ed movement s Completed Shahrzad Barrera [place] [facility] 5 09:18:25 Breastfe eding painful 052130448 Active Radha Quicks [place] [facility] 6 11:25:47 Pain in pelvis 87741733 Active Radha Laymons [place] [facility] 6 11:25:47 Vaginal discharg e 715985334 Active white Radha moreno, [facility] 6 11:25:47 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 Procedures Surgical History Date Name Laterality Status Provider Name and Address Organization Details Recorded Time 05/08/19 16 Cholecystectomy completed Radha Garcia [facility] 11/03/2015 11:25:48 01/15/20 15 IUD Insertion completed Ricardo Isauro [facility] 01/14/2015 12:23:57 04/18/20 12 Date of Last Pap Smear completed Mily Parsons [place] [facility] 05/06/2014 16:14:24 05/08/19 10 Appendectomy completed Maida Do [place] [facility] 06/17/2014 11:12:04 Imaging Results Imaging Date Name Status LastModified by Organiz ation Details LastModified Time 07/04/2018 XR, chest completed [email or web address] [address] [place], [address], 07/06/2018 16:35:07 08/09/2018 CT, neck, soft tissue, w/ contrast completed [address] [place], [address], 11/27/2018 00:09:00 08/16/2018 CT, sinuses, w/o contrast completed [address] [place], [address], 08/16/2018 13:21:28 Procedure Notes None recorded. Medical [...] Updated DateTime 9 162.56 cm 36.7 kg/m2 97118.0 4 g 97.9 [degF] 16 /min 76 /min 124 mm[Hg] 86 mm[Hg] Jenelle Groves MA [facility] 9 12:24:37 Date Recorded Body height Body mass index (BMI) Body weight Systolic blood pressure Diastolic blood pressure Provider Name and Address Organization Details Last Updated DateTime 08/29/2018 162.56 cm 36.2 kg/m2 25900.99 g 130 mm[Hg] 94 mm[Hg] Shahrzad Barrera MA [facility] 9 11:38:34 Date Recorded Body height Body mass index (BMI) Body weight Body temperature Heart rate Respiratory rate Systolic blood pressure Diastolic blood pressure Provider Name and Address Organization Details Last Updated DateTime 9 162.56 cm 36 kg/m2 53773.6 1 g 98.3 [degF] 84 /min 20 /min 132 mm[Hg] 84 mm[Hg] Jenelle Groves MA [facility] 9 12:15:41 Date Recorded Body height Body mass index (BMI) Body weight Body temperature Heart rate Respiratory rate Systolic blood pressure Diastolic blood pressure Provider Name and Address Organization Details Last Updated DateTime 9 162.56 cm 35.5 kg/m2 99145.9 7 g 98.3 [degF] 70 /min 18 /min 130 mm[Hg] 80 mm[Hg] Jenelle Groves MA [facility] 9 10:43:45 Date Recorded Body height Body mass index (BMI) Body weight Heart rate Respiratory rate Body temperature Systolic blood pressure Diastolic blood pressure Provider Name and Address Organization Details Last Updated DateTime 9 162.56 cm 36.3 kg/m2 80417.7 9 g 86 /min 20 /min 98.3 [degF] 130 mm[Hg] 82 mm[Hg] Jenelle Groves [place] [facility] 9 11:02:19 Social History Question [...] SNOMED-CT Code Diagnosis ICD10 Code Diagnosis Note [id number] BRENDEN Keene ([facility] 122) [address] [place] [address] 05/06/2014 15:15:04 05/07/2014 13:43:54 68242222 test positive [id number] Alia Husain ([facility]) [address] [place] [address] 05/22/2014 14:23:39 05/22/2014 15:25:47 [id number] BRENDEN Hameed ([facility]) [address] [place] [address] 06/17/2014 10:44:30 06/17/2014 15:08:09 [id number] lAia Husain ([facility]) [address] [place] [address] 07/15/2014 10:26:03 07/16/2014 09:23:26 Normal [id number] Alia Vanegas [facility] ([facility]) [address] [place] [address] 08/12/2014 09:35:12 08/12/2014 12:42:08 Normal [id number] Lalo Womenjavi ([facility] 122) [address] [place] [address] 08/26/2014 11:56:11 08/27/2014 16:10:13 [id number] Alia Vanegas Women[facility] ([facility]) [address] [place] [address] 09/09/2014 14:42:01 09/09/2014 15:30:17 [id number] Lalo Womenjavi ([facility] 122) [address] [place] [address] 09/23/2014 09:49:09 09/23/2014 15:23:49 [id number] BRENDEN Mar [facility] ([facility]) [address] [place] [address] 10/07/2014 10:59:01 10/07/2014 11:38:07 [id number] Ricardo Box [place] ([facility]) [address] [place] [address] 10/21/2014 09:36:51 10/23/2014 12:51:20 [id number] Alia Vanegas [facility] ([facility]) [address] [place] [address] 11/04/2014 09:43:59 11/04/2014 14:45:01 [id number] Normal [id number] BRENDEN Keene [facility] ([facility]) [address] [place] [address] 11/11/2014 11:18:25 11/11/2014 14:54:02 [id number] Maternal c are for diminished movements 470054007 [id number] Alia Vanegas [facility] ([facility] 122) [address] [place] [address] 11/18/2014 10:46:59 11/18/2014 11:58:55 [id number] Bianka Fletcher [place] [facility] ([facility] 122) [address] [place] [address] 11/24/2014 08:49:50 11/24/2014 10:29:51 [id number] Ricardo Box [place] [facility] ([facility] 122) [address] [place] [address] 12/24/2014 09:05:47 12/24/2014 12:04:57 care [id number] BRENDEN Chan [facility] ([facility] 122) [address] [place] [address] 01/14/2015 11:47:27 01/14/2015 12:33:02 care [id number] Uses contraception 30890305 [id number] Alia Vanegas [facility] ([facility] 122) [address] [place] [address] 01/19/2015 15:46:51 01/20/2015 09:49:17 IUD check 164833802 [id number] Madyson Obdulio [facility] ([facility] 122) [address] [place] [address] 02/11/2015 10:38:39 02/18/2015 18:08:10 IUD check 149934525 Z30.431 [id number] Joan Blsa [facility] [place] [facility] ([facility] 122) [address] [place] [address] 11/03/2015 11:00:12 11/03/2015 14:33:42 detection examination 37205060 Z32.00 IUD check 946475173 Z30. 559 [id number] Lucero Vanegas 14 IM [address] [place] [address] 07/04/2018 09:50:09 07/04/2018 16:26:43 Cervical lymphadenopathy 376882289 R59.0 Had a cough since 02/2018, on and off No traveling. No cat. Weight stable overall. Fatigue - despite sleeping. No dental issues. No focal weakness. Sweaty at times. Irregular periods. Neuro intact. ENT will do US +/- biopsy soon. Labs. Check for mono, syphilis, CMV, CXR. RTC 3mo Disorder o f thyroid gland 21150801 E07.9 Had a cough since 02/2018, on and off. Check TSH [id number] Lucero Vanegas 14 IM [address] [facility] [place] [address] 07/27/2018 12:09:33 07/31/2018 15:49:44 Cervical lymphadenopathy 812593506 R59.0 Had a cough since 02/2018, on [...] second ENT opinion. Upper resp iratory infection 71600586 J06.9 Strept and Flu negative. Exam unremarkab le. Conservati ve management . [id number] MD Justin Chambersn [address] [facility] [place] [address] 08/29/2018 11:23:12 08/30/2018 09:21:21 Gynecologic examination 58722486 Z01.419 CBE and pelvic exam performedP t is on her menstrual cycle, will RTC for pap smear Venereal d isease screening 176119536 Z11.3 Anemia 990785157 D64.9 Hemorrhoids 05294723 K64 .9 [id number] Lucero Vanegas 14 IM [address] [facility] [place] [address] 09/05/2018 12:08:49 09/06/2018 10:44:23 Acute sinusitis 06720433 J01.90 4 days, worsening coughs, chest congestion . Exam sinusitis. Already on antihistam althea, PPI, Augmentin with ENT. Try home Flonase, add mucinex. Mean corpu scular volume below reference range 541318031 R71.8 MCV still low with Cut To Length Operator. Heavy periods on paraguard with hall clerk , still heavy. FeS - taking two tab now. Inc to three - RTC 2mo for ferritin check. [id number] Lucero Lori Vanegas 14 IM [address] [facility] [place] [address] 11/13/2018 10:37:12 11/27/2018 11:36:00 Cervical lymphadenopathy 343169154 R59.0 06/2018: Had a cough since 02/2018, [...] done biopsy - result benign. Chronic gastritis 812945 9 K29.50 Followed by GI.Chronic gastritic, H pylori infection - pt was treated. Per pt, her esophagus was also dilated. Hemorrhoids 60026847 K64 .9 Followed by Gen sx - candidate for hemorrhoid ectomy. History of Helicobacter pylori infection 3475976424 2811043 Z86.19 Followed by GI - treated [id number] Lucero Vanegas 14 IM [address] [facility] [place] [address] 02/13/2019 10:52:03 02/14/2019 08:35:16 Dizziness 220995107 R42 Thyroid was low with Cut To Length Operator recently - pt will be rechecked by [...] Steele Member ID Guarantor Name 07/27/2018 1 [place] [facility] Yessica Ray [id number] Yessica Corzine 08/29/2018 1 [place] [facility] Yessica Ray [id number] Yessica Corzine 09/05/2018 1 [facility] (MEDICAID HMO) [facility] Yessica Ray [id number] Yessica Corzine 11/13/2018 1 [facility] (MEDICAID HMO) [facility] Yessica Ray [id number] Yessica Corzine 02/13/2019 2 [place] [facility] Yessica Ray [id number] Yessica Corzine 02/13/2019 1 [facility] [id number] Luis Antonio Rowe Corzine [id number] Yessica Corzine Notes Date Note Type Note [...] Ricardo Ramirez MD Attn: Accounting,[address] [facility], [place], [address], [place] [facility] 08/29/2018 16:15:04 09/05/2018 text/html 23yo female is h ere for coughs. Coughs Congested chest 4 days of increase Wheeze Sore throat No fever, chills, muscle ache Saw ENT - on Tessalon perles, Augmentin for 1mo, Probiotic, Omeprazole She is on Minerva and Benadryl Lucero moreno [facility] 09/05/2018 12:50:10 11/13/2018 text/html 23yo [...] Was planning for hemorrhoidectomy Lucero Vacamary moreno [facility] 11/27/2018 00:24:29 02/13/2019 text/html 24yo [...] with meals Denies room spinning. Lucero Sandoval [facility] [place] - [facility] 02/13/2019 11:29:52 OBGyn Episode Ob Episode Information Episode Created Date Number of Fetuses Patient Bloodtype Patient rh Status Prepregnancy Weight lbs Domestic Partner Domestic Partner Phone Father Name Wallboard Worker Status 05/06/20 14 1 A Positive Luis Antonio Mo CLOSED Fetus Data First Name Last Name Admitted to NICU Weight (g) Sex Living Outcome Pediatric Complications Fetus ID Race Codes Race Delivery Type CHASITY LILLY NE false 4309.12 4 F Full Term 5386 2106-3 White Vaginal Problems Problem Notes Problem Name Start Date End Date Resolution Snomed Code Not e Infective vaginitis 951998241 Maternal care for diminished movements 706985428 Darren Calculation Initial Darren Date Initial Exam [...] Type Weight in lbs Pre/Post Dialysis Refused 203.213053841215 BP Diastolic BP Location Tested BP Systolic BP Type 64 L arm 118 sitting Fetus Heart Rate Present Fetus Movement Comments Flowsheet Date 05/22/2014 Mckinney Score Blood Edema Fundus Height Fundus Units Glucose Ketones Leukocytes Nitrite Labor Signs Protein Cervic Dilation Cervic Effacement Cervic Station neg none none negative neg Type Weight in lbs Pre/Post Dialysis Refused 198.463063293320 BP Diastolic BP Location Tested BP Systolic [...] Type Weight in lbs Pre/Post Dialysis Refused 164.15991217310 BP Diastolic BP Location Tested BP Systolic [...] Type Weight in lbs Pre/Post Dialysis Refused 201.243838971818 BP Diastolic BP Location Tested BP Systolic [...] Type Weight in lbs Pre/Post Dialysis Refused 203.77165144752 BP Diastolic BP Location Tested BP Systolic BP Type 68 128 Fetus Heart Rate Present A 142 Present Fetus Movement A Yes Comments 28 weeks today Flowsheet Date 08/26/2014 Mckinney Score Blood Edema Fundus Height Fundus Units Glucose Ketones Leukocytes Nitrite Labor Signs Protein Cervic Dilation Cervic Effacement Cervic Station 26 cm none Type Weight in lbs Pre/Post Dialysis Refused 203.67238175950 BP Diastolic BP Location Tested BP Systolic BP Type 74 L arm 122 sitting Fetus Heart Rate Present A 146 Present Fetus Movement A Yes Comments Flowsheet Date 09/09/2014 Mckinney Score Blood Edema Fundus Height Fundus Units Glucose Ketones Leukocytes Nitrite Labor Signs Protein Cervic Dilation Cervic Effacement Cervic Station 30 cm none Type Weight in lbs Pre/Post Dialysis Refused 206.490410410751 BP Diastolic BP Location Tested BP Systolic BP Type 60 L arm 120 sitting Fetus Heart Rate Present A 154 Present Fetus Movement A Yes Comments Flowsheet Date 09/23/2014 Mckineny Score Blood Edema Fundus Height Fundus Units Glucose Ketones Leukocytes Nitrite Labor Signs Protein Cervic Dilation Cervic Effacement Cervic Station 32 cm none Type Weight in lbs Pre/Post Dialysis Refused 205.434855419445 BP Diastolic BP Location Tested BP Systolic BP Type 68 110 Fetus Heart Rate Present A 155 Fetus Movement A Yes Comments Flowsheet Date 10/07/2014 Mckinney Score Blood Edema Fundus Height Fundus Units Glucose Ketones Leukocytes Nitrite Labor Signs Protein Cervic Dilation Cervic Effacement Cervic Station none Type Weight in lbs Pre/Post Dialysis Refused 208.591818831620 BP Diastolic BP Location Tested BP Systolic BP Type 78 110 sitting Fetus Heart Rate Present A 154 Fetus Movement A Yes Comments growth scan ordered Flowsheet Date 10/21/2014 Mckinney Score Blood Edema Fundus Height Fundus Units Glucose Ketones Leukocytes Nitrite Labor Signs Protein Cervic Dilation Cervic Effacement Cervic Station 37 cm none Type Weight in lbs Pre/Post Dialysis Refused 213.585687493616 BP Diastolic BP Location Tested BP Systolic BP Type 72 118 sitting Fetus Heart Rate Present A 140 Present Fetus Movement A Yes Comments gbs today. Flowsheet Date 11/04/2014 Mckinney Score Blood Edema Fundus Height Fundus Units Glucose Ketones Leukocytes Nitrite Labor Signs Protein Cervic Dilation Cervic Effacement Cervic Station 37 cm none Type Weight in lbs Pre/Post Dialysis Refused 216.657728798201 BP Diastolic BP Location Tested BP Systolic [...] Type Weight in lbs Pre/Post Dialysis Refused 217.625371023904 BP Diastolic BP Location Tested BP Systolic [...] Type Weight in lbs Pre/Post Dialysis Refused 221.435389596362 BP Diastolic BP Location Tested BP Systolic [...] Type Weight in lbs Pre/Post Dialysis Refused 223.719552585022 BP Diastolic BP Location Tested BP Systolic [...] At Estimated Date of Delivery false Thalassemia (Czech, Costa Rican, Mediterranean, Or Background): MCV < 80 false Neural Tube Defect (Meningom yelocele, Spina Bifida, Or Anencephaly) false Congenital Heart Defect false Down Syndrome false Curt-Sachs (eg, Jain, Cajun , Gibraltarian-Prince George'S) false Yung Disease false Sickle Cell Disease Or Trait () false Hemophilia Or Other Blood Disorders false Muscular Dystrophy false Cystic Fibrosis false [place]'s Chorea false Mental Retardation/Autism false Other Inherited [...] Domestic Partner Domestic Partner Phone Father Name Wallboard Worker Status 06/17/19 15 1 CLOSED Fetus Data First Name Last Name Admitted to NICU Weight (g) Sex Living Outcome Pediatric Complications Fetus ID Race Codes Race Delivery Type 3515.33 8 F Full Term [address]1955 Vaginal Darren Calculation Initial Darren Date Initial [...]
== END 2024-08-08 09:03 | disposition home or self-care (01) ==
LOC: ANHCARD 09:05
PROVIDERS: PCP Advanced Practice Midwife; Visit Provider Advanced Practice Midwife
DX: R94.31 Abnormal electrocardiogram [ECG] [EKG] (principal); R00.2 Palpitations
CPT/HCPCS: 93242

== ENCOUNTER 2024-08-08 20:37 | Emergency (ER) | payer OTHER, SELFPAY ==
--- NOTE | ~2024-08-08 | XR_ITS ---
EXAMINATION: XR chest 1V portable Exam Date/Time: 08/08/2024 21:45 CDT HISTORY: palpitations 21 WEEKS Comparison: 07/23/2020. RESULT: Lines, tubes, and devices: An electronic device projects over the left chest. Lungs and pleura: Clear. Cardiomediastinal silhouette: Stable. Other: No acute osseous or upper abdominal finding. IMPRESSION: No acute cardiopulmonary process. Reviewed, dictated and finalized at location K.
--- OUTSIDE RECORDS SUMMARY | 2024-08-08 20:40 | XMS_ITS | Continuity of Care Document ---
Author Organization [facility] Address [address] [place] [address] [address] [place] [address] Phone Care Team Providers Care Dosimetrist Name Role Phone Carol OD OD, Georgina [...] - Active Procedures Procedure Date OFFICE/OUTPATIENT VISIT, [facility] Comp cont lens eval No Charge Visit N/C Glasses Check Advance Directives Directive Yes / No Effective Date File Name No Information Encounters Encounter Description Practice Location Reason(s) For Visit Diagnoses Date Provider Providers Copied on Encounter [facility], [address] [place] [address] [address], [place], [place], [id number], tel:[phone] O[facility] KENTRELL LOPEZ No Information 3 Carol OD Georgina. [address] [facility], [address], [place], [place], [id number], [place]. tel:[phone] Referring Provider: Georgina Medina OD, [address] [facility] [address], [place], [address] . tel:[phone] OFFICE/OUTPA TIENT VISIT, [facility], [address] [place] [address], [id number], tel:[phone] OPH CONSULT KENTRELL LOPEZ blurry vision (chief complaint) dry eye (chief complaint) Krystin's thyroiditisMyo roger, bilateralTear film insufficiency of bilateral lacrimal glandsOther vitreous opacities, bilateralCorne al neovasculariza tion of both eyes 2 Derheimer OD Georgina. [address], [address] [place] [address], [id number], [place]. tel:[phone] Referring Provider: Scooter White, [address], [place], [address]. tel:[phone] [facility], [address] [place] [address], [id number], tel:[phone] Optical Services KENTRELL LOPEZ No Information 6 Derheimer OD Georgina. [address], [address] [place] [address], [id number], [place]. tel:[phone] Referring Provider: Georgina Medina OD, [address], [place], [address] . tel:[phone] [facility], [address] [place] [address], [id number], tel:[phone] OPH CONSULT KENTRELL LOPEZ blurry vision (chief complaint) Myopia, bilateral 6 Derheimer OD Georgina. [address], [address], [place], [place], [id number], [place]. tel:[phone] Referring Provider: Georgina Medina OD, [address], [place], [address] . tel:[phone] [facility], [address] [place] [address], [id number], tel:[phone] OPH CONSULT KENTRELL LOPEZ No Information 1 Beth Cohenl. [address], [place], [place], [id number], [place]. tel:[phone] Family History Family Member Type Diagnosis Age At Onset Problem No family history of Diabete s mellitus Problem No family history of Macular degeneration Problem No family history of Hyperte nsion Problem No family history of Glaucom a Payers Payer name Insurance type Covered alliance [...]
--- OUTSIDE RECORDS SUMMARY | 2024-08-08 20:40 | XMS_ITS | Continuity of Care Document ---
Author Organization [facility] Address [address] [facility] [place] [address] Phone Care Team Providers Care Human Resource Management Instructor Name Role Phone Robby Torres MD Unavailable [...] Diagnoses Date Provider Providers Copied on Encounter [facility], [address] [facility] [place], [address], [place] tel:[phone] [facility] No Information 1 Brian Bustamante. [address], [place], [place], [address] , [place]. tel:[phone] [facility], [address], [place], [place], [address], [place] tel:[phone] [facility] No Information 0 Brian Bustamante. [address], [place], [place], [address] , [place]. tel:[phone] OFFICE/OUTPA TIENT VISIT, [facility], [address], [place], [place], [address], [place] tel:[phone] [facility] anxiety1 (chief complaint) Generalized Anxiety DisorderHypothyroid ism 0 Brian Bustamante. [address], [place], [place], [address] , [place]. tel:[phone] Referring Provider: Robby Torres [address], [place], [place], [address]. tel:[phone] OFFICE/OUTPA TIENT VISIT, [facility], [address], [place], [address], [place] tel:[phone] [facility] anxiety1 (chief complaint) Generalized Anxiety DisorderGoiter 0 Brian Bustamante. [address], [place], [place], [address] , [place]. tel:[phone] Referring Provider: Robby Torres [address], [place], [place], [address]. tel:[phone] OFFICE/OUTPA TIENT VISIT, [facility], [address], [place], [place], [address], [place] tel:[phone] [facility] thyroid nodule1 (chief complaint) anxiety1 (chief complaint) GoiterGeneralized Anxiety Disorder 0 Brian Menendez [address], [place], [place], [address] , [place]. tel:[phone] Referring Provider: Gissel Banks [address], [place], [place], [address]. tel:[phone] OFFICE/OUTPA TIENT VISIT, [facility], [address], [place], [place], [address], [place] tel:[phone] [facility] anxiety1 (chief complaint) iron1 (chief complaint) thyroid1 (chief complaint) Disorder of iron metabolism, unspecifiedGoiterGe neralized Anxiety Disorder Lonnie-0 0 Brian Bustamante. [address], [place], [place], [address] , [place]. [phone] Referring Provider: Gissel Banks [address], [place], [place], [address]. tel:[phone] OFFICE/OUTPA TIENT VISIT, [facility], [address], [place], [place], [address], [place] tel:[phone] [facility] ankle pain1 (chief complaint) fatigue1 (chief complaint) thyroid1 (chief complaint) anemia1 (chief complaint) Pain in right ankleFatigueAnemiaG oiter 0 Brian Bustamante. [address], [place], [place], [address] , [place]. tel:[phone] Referring Provider: Gissel Banks [address], [place], [place], [address]. tel:[phone] OFFICE/OUTPA TIENT VISIT, [facility], [address], [place], [place], [address], [place] tel:[phone] [facility] rash1 (chief complaint) Allergic contact dermatitis due to plants, except food Aug- 0 Brian Bustamante. [address], [place], [place], [address] , [place]. [phone] Referring Provider: Gissel Banks [address], [place], [place], [address]. tel:[phone] OFFICE/OUTPA TIENT VISIT, [facility], [address], [place], [place], [address], tel:[phone] [facility] Medicine thyroid1 (chief complaint) ferritin1 (chief complaint) IgA (chief complaint) fatigue1 (chief complaint) GoiterDisorder of iron metabolism, unspecifiedVitamin D deficiency, unspecifiedRaised level of immunoglobulinAnemi aH. pylori as the cause of diseases classified elsewhereFatigue 0 Brian Bustamante. [address] [facility] [place], [address] , . tel:[phone] Referring Provider: Gissel Banks [place], [place], [address]. tel:[phone] PREV VISIT, NEW, AGE 18-39 [facility], [address] [place] [address] [employer] [place], [address], tel:[phone] [facility] PHysical (chief complaint) Encntr for general adult medical exam w/o abnormal findings 0 Brian Bustamante. [address] [facility] A, [place], [place], [address] , [place]. tel:[phone] Referring Provider: Robby Torres [address] [place] [address], [address]. tel:[phone] Family History Family Member Type Diagnosis Age At Onset Brother Problem Alive and well Father Problem (finding) Alive and well Mother Problem (finding) Thyroid disorder Payers Payer name Insurance type Covered republican [...] BIOPSY ordered Referral Referred To: Joe Fontana [address] [facility]
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
--- OUTSIDE RECORDS SUMMARY | 2024-08-08 20:40 | XMS_ITS | Clinical Summary ---
Author Organization [facility] Address [address] [place] [address] Care Team Providers Care Inside Parts Sales Name Role Phone Scooter White DO Primary Care Provider [phone] Source Comments [facility],non-owned Affiliates and Associated Physician Practices is amultiple site organization consisting of ambulatory clinics and hospital sitesin [place] and [place]. This disclosure is being madepursuant to the Care Everywhere program and may not contain all information available regarding this patient. Last updated 18.[facility] Allergies Active Allergy Reactions Criticality Noted Date [...] - 07/31/2024 11:59 PM CDT Hospital Encounter [facility] [address] [place] [address] Katina Ewing MD Discharge Disposition: Home or Self Care 07/31/2024 12:59 PM CDT - 07/31/2024 11:59 PM CDT Hospital Encounter [facility] [address] [place] [address] Katina Ewing MD Discharge Disposition: Home or [...] Info) Description 08/27/2024 1:00 PM CDT Appointment [facility]'s Health Maternal & Care [address] [place], [place] [id number] Health Maintenance Due Date Last Done Comments PAP SMEAR 1993 HEPATITIS C SCREENING 01/02/2011 DTAP/TDAP/TD VACCINES (1 - Tdap) 01/07/2012 HEPATITIS B VACCINE (1 of 3 - 19+ 3-dose series) 01/07/2012 COVID-19 VACCINE (3 - 2023-2 5 season) 2024 08/06/2021, 07/16/2021 DEPRESSION SCREENING 05/08/2024 INFLUENZA VACCINE (Season Ended) 2025 01/24/2020 ZOSTER VACCINE (1 of 2) 2043 HIV [...] History ====== OB History 4. Para 3 [id number] 1. live 2011. Gest. age 39 w [...] 0 lb 13 oz EFW by Hadlock (SDC-WL-SX-FL) EFW discordance 6.6 % accelerated Fetus B: [...] 0 lb 13 oz EFW by Hadlock (ZQB-CX-AC-FL) EFW discordance 6.6 % appropriate Fetus A: [...] view. RVOT view. LVOT view. 3-vessel view. 9-plnckp-weqgbey view. Aortic arch view. Bicaval view. Great [...] Thorax 4-chamber view. LVOT view. 3-vessel view. 4-lsogmr-iiqsclk view. Aortic arch view. Bicaval view. Interventricular [...] your patient in consultation. Coding ====== Procedures 72183: US Preg Uterus Detailed 56817: US Preg Uterus Detailed, Additional Gest 12780: US Preg Uterus Transvaginal BeckonCall PACS Anatomical Region Laterality Modality Other 07/31/2024 12:5 5 PM CDT Cindi Bryant MANAGER STERILE PROCESSING-SIGNAL MECHANIC M ORDERABLES from Last 3 Months Care Teams Inside Parts Sales Relationship Specialty Start Date End Date Scooter White DO PCP - General 03/16/22
--- OUTSIDE RECORDS SUMMARY | 2024-08-08 20:40 | XMS_ITS | Encounter Summary ---
Author Organization [facility] Address [address] [place] [address] Phone Care Team Providers Care Hand Salter Name Role Phone Manda Singh MD Unavailable [phone] Robby Torres Primary Care Provider [phone] Scooter White DO Primary Care Provider Malik Cates MD Unavailable Ulices Marino MD Unavailable Yon Gutierrez MD Primary Care Provider Encounter Details Date Type Department Care Team (Late st Contact Info) Description 04/09/2020 Telephone [facility] [address] [address] [address] Saud Dalton MD [address] [place] [address] Social History Tobacco Use Types Packs/Day [...] COVID-19? No / Unsure 03/20/2020 6:06 AM MULTIMEDIA SPECIALIST documented as of this encounter Miscellaneous Notes * Telephone Encounter - Mahnaz Alaniz - 04/09/2020 2:50 PM CST Patient no showed her appointment, left voice message to call the office to reschedule. Sent out a no show letter. IMEDIA SPECIALIST documented in this encounter Plan of Treatment Upcoming Encounters Date Type Department Care Team (Late st Contact Info) Description 09/26/2024 1:00 PM CDT Office Visit [facility] [address] [place] [address] Georgina Fontenot APRN, STRANDING MACHINE OPERATOR [address] [place] [address] documented as of this encounter Visit Diagnoses Not on filedocumented in this encounter Additional Health Concerns Assessment Noted Time PHQ-9 Depression Total Score: 0 02/11/20 20 12:57 PM CDT documented as of this encounter Care Teams Hand Salter Relationship Specialty Start Date End Date Robby Torres [address] [place] [address] PCP - General Family Medicine 02/11/20 03/16/21 Scooter White DO [facility] [facility] [place] [address] PCP - General Internal Medicine 03/17/21 06/22/23 Yon Gutierrez MD 2 [facility] [address] [place] [address] PCP - General Family Medicine 06/23/23 Manda Singh MD Obstetrics & Gynecology 02/11/20 Malik Cates MD #[address] [address] Consulting Physician Endocrinology 12/13/21 Ulices Marino MD #[address] [address] Consulting Physician Colon and Rectal Surgery 07/06/22 documented as of this encounter
--- OUTSIDE RECORDS SUMMARY | 2024-08-08 20:40 | XMS_ITS | Encounter Summary ---
Author Organization [facility] Address [address] [place] [address] Phone Care Team Providers Care Rope Cleaner Name Role Phone Manda Singh MD Unavailable [phone] Robby Torres Primary Care Provider [phone] Scooter White DO Primary Care Provider Malik Cates MD Unavailable Ulices Marino MD Unavailable Yon Gutierrez MD Primary Care Provider Encounter Details Date Type Department Care Team (Late st Contact Info) Description 03/09/2020 Transcribe Orders [facility] Preop/Pacu II [address] [place] [phone] Walter Blake MD [address] [place] [address] Preop testing (Primary Dx) Social History Tobacco [...] COVID-19? Unable to assess 03/10/2020 1:32 PM RESEARCH ANIMAL ATTENDANT documented as of this encounter Plan of Treatment Upcoming Encounters Date Type Department Care Team (Late st Contact Info) Description 09/26/2024 1:00 PM CDT Office Visit [facility] - [facility]rology - [place] [address] [place] [address] Georgina Fontenot APRN, INSPECTOR WATCH TRAIN [address] [place] [address] documented as of this encounter Visit Diagnoses Diagnosis Preop testing- Primary Preoperative examination, unspecified documented in this encounter Additional Health Concerns Infection Onset Date Last Indicated Resolved Time COVID - 19 03/10/2020 03/10/2020 03/16/2020 11:4 0 AM RESEARCH ANIMAL ATTENDANT Assessment Noted Time PHQ-9 Depression Total Score: 0 02/11/20 20 12:57 PM CDT documented as of this encounter Care Teams Rope Cleaner Relationship Specialty Start Date End Date Robby Torres [address] [place] [address] PCP - General Family Medicine 02/11/20 03/16/21 Scooter White DO [address] [facility] [place] [address] PCP - General Internal Medicine 03/17/21 06/22/23 Yon Gutierrez MD 2 [facility] [place] [address] PCP - General Family Medicine 06/23/23 Manda Singh MD Obstetrics & Gynecology 02/11/20 Malik Cates MD #[address] [address] Consulting Physician Endocrinology 12/13/21 Ulices Marino MD #[address] [address] Consulting Physician Colon and Rectal Surgery 07/06/22 documented as of this encounter
--- OUTSIDE RECORDS SUMMARY | 2024-08-08 20:40 | XMS_ITS | Encounter Summary ---
Author Organization [facility] Address [address] [place] [address] Care Team Providers Care Departure Clerk Name Role Phone Scooter White DO Primary Care Provider [phone] Encounter Details Date Type Department Care Team (Late Contact Info) Description 11/06/2018 Lab Requisition [facility] Care Pathology Lab [address] [place] [address] Cindi Herrera MD [address] [place] [address] Enlarged lymph nodes Social History Tobacco Use [...] Info) Description 08/27/2024 1:00 PM CDT Appointment [facility]'s Health Maternal & Care [address] [place] [address] documented as of this encounter Procedures Procedure Name Priority Date/Time Associated Diagnosis Comments FLOW CYTOMETRY TISSUE PANEL Routine 11/05/2018 11:02 AM CDT Enlarged lymph nodes documented in this encounter Results * FLOW CYTOMETRY TISSUE PANEL (11/05/2018 11:02 AM CDT) Case Report Flow Cytometry Case: [id number] Authorizing Provider: Cindi Herrera MD Collected: 11/05/2018 11:02 AM Pathologist: Alexa Weinberg MD Received: 11/06/2018 02:01 PM Specimen: Cervical Lymph Node , Left 5:33 PM CDT [facility] Final Diagnosis Lymph node, left cervical, flow cytometric immunophenotypic analysis: - No evidence of non-Hodgkin lymphoma. - See interpretation. 5:33 PM [facility] Flow Cytometry Interpretation The left [...] the flow cytometry specimen is reviewed for type disk quality control supervisor purposes. In summary, the left cervical lymph node specimen shows no evidence of a non-Hodgkin lymphoma. Correlation with additional clinical information and the concurrent biopsy specimen is required. KR 9 5:33 PM T [facility] Flow Cytometry Results Differential Result Comment Flow Cell Count /uL [id number] Total Viability % 86.0 Lymphocytes % 97 Dim CD45 Region % 0 Monocytes % 1 Granulocytes % 1 9 5:33 PM CDT [facility] Reason for test Enlarged lymph nodes 785.6 9 5:33 PM T [facility] Client Specimen ID # [id number] 9 5:33 PM [facility] Number of markers 16 were performed. A Flow CD3 A Flow CD10 A Flow CD20 A Flow CD23 A Flow CD2 A Flow CD4 A Flow CD1a A Flow CD5 A Flow CD19 A Flow CD34 A Flow CD45 A Flow CD7 A Flow CD8 A Flow CD30 A Hackberry+CD19+ A Lambda+CD19+ 9 5:33 PM CDT [facility] Disclaimer Test performed at [facility], [address] [place], [place], [address]. *The established laboratory minimum viability is 70%. [...] complexity clinical testing. 9 5:33 PM CDT [facility] Embedded Images 9 5:33 PM CDT [facility] Pathology/Cytolo gy ENTIRE CERVICAL LYMPH NODE / Unknown 11/05/2018 11:02 AM CDT 11/06/2018 2:01 PM CDT Cindi Herrera MD LAB - PATHOLOGY/CYTO LOGY ORDERABLES [facility] [address] [facility] [phone] documented in this encounter Visit Diagnoses Diagnosis Enlarged lymph nodes Enlargement of lymph nodes documented in this encounter Care Teams Departure Clerk Relationship Specialty Start Date End Date Scooter White DO PCP - General 03/16/22 documented as of this encounter
--- OUTSIDE RECORDS SUMMARY | 2024-08-08 20:40 | XMS_ITS | Clinical Summary ---
Author Organization [facility] Address [address] [facility], [address] [address] Phone Care Team Providers Care Artificial Cherry Maker Name Role Phone Manda Singh MD Unavailable [phone] Malik Cates MD Unavailable Ulices Marino [...] 97.5 kg (215 lb) 04/19/2023 8:07 AM LABORER SHIPYARD Height 165.1 cm (5' 5 ) 04/19/2023 8:07 AM LABORER SHIPYARD Body Mass Index 35.78 04/19/2023 8:07 AM LABORER SHIPYARD Plan of Treatment Upcoming Encounters Date Type Department Care Team (Late st Contact Info) Description 09/26/2024 1:00 PM CDT Office Visit [facility] - [facility]rology - [place] [address] [place] [address] Georgina Fontenot, CANINE DEPUTY, SALES ASSOCIATE [address] [place] [address] Health Maintenance Due Date Last Done Comments [...] this topic Medical Devices Implanted Type Area Inker Device Identifier Shelf Expiration Date Model / Serial / Lot Tube Ventilation 5mm Carey Triune - [id number] Implanted:Qty: 1 on 11/05/2018 [facility] IMPLANT Left: Ear [employer] 04/06/2020 510-122 / 510-122 / [id number] Description:Ear tubes came f rom the same package Tube Ventilation 5mm Carey Triune - [id number] Implanted:Qty: 1 on 11/05/2018 [facility] IMPLANT Right: Ear [employer] 04/06/2020 510-122 / 510-122 / [id number] Description:Ear tubes came f rom the same package Insurance * Guarantor: [facility] Account Type Relation to Patient Date of Phone Billing Address Institutional Other [address] [place] [address] Care Teams Artificial Cherry Maker Relationship Specialty Start Date End Date Yon Gutierrez MD 2 [facility] [address] [place] [address] PCP - General Family Medicine 06/23/23 Manda Singh MD Obstetrics & Gynecology 02/11/20 Malik Cates MD #[address] [address] Consulting Physician Endocrinology 12/13/21 Ulices Marino MD #[address] [address] Consulting Physician Colon and Rectal Surgery 07/06/22
--- OUTSIDE RECORDS SUMMARY | 2024-08-08 20:40 | XMS_ITS | Encounter Summary ---
Author Organization [facility] Address [address] [place] [address] Phone Care Team Providers Care Terrazzo Polisher Helper Name Role Phone Manda Singh MD Unavailable [phone] Scooter White DO Primary Care Provider Malik Cates MD Unavailable Ulices Marino MD Unavailable Yon Gutierrez MD Primary Care Provider Encounter Details Date Type Department Care Team (Late st Contact Info) Description 07/26/2021 Lab Requisition [facility] Laboratory Services [address] [place] [address] Edita Garza, LOCATE TECHNICIAN, BUTTONHOLE MACHINE OPERATOR [address] [place] [address] Encounter for pre-employment examination Social History Tobacco [...] 09/26/2024 1:00 PM CDT Office Visit [facility] - Neurology - [place] [address] [place] [address] Georgina Fontenot, LOCATE TECHNICIAN, COLLET MAKER [address] [place] [address] documented as of this encounter Procedures Procedure [...] 2.7 >=1.1 AI 07/26/2021 10:00 PM CDT [facility] Blood No Phlebotomy Charged / Unknown 07/26/2021 9:00 AM CDT 07/26/2021 2:15 PM CDT Narrative [facility] - 07/26/2021 10:00 PM CDT <= 0.8 Negative. No detectable VZV IgG antibody. 0.9 - 1.0 Equivocal >=1.1 Positive Antibody testing was performed by multiplex flow immunoassay on the BioPlex platform. Edita Garza LOCATE TECHNICIAN, BUTTONHOLE MACHINE OPERATOR IMMUNOLOGY ORDERABL ES Final Result Performing Organization Address [facility] Co de Phone Number [facility] [address] [place] [address], [place] * (ABNORMAL) RUBEOLA (MEASLES) IGG (07/26/2021 9:00 AM CDT) MEASLES AB IGG 0.7(L) >=1.1 AI 07/26/2021 10:00 PM CDT [facility] Blood No Phlebotomy Charged / Unknown 07/26/2021 9:00 AM CDT 07/26/2021 2:15 PM CDT Narrative [facility] - 07/26/2021 10:00 PM CDT <= 0.8 Negative. No detectable Measles IgG antibody. 0.9 - 1.0 Equivocal >=1.1 Positive Antibody testing was performed by multiplex flow immunoassay on the BioPlex platform. us Edita L Behrends LOCATE TECHNICIAN, BUTTONHOLE MACHINE OPERATOR IMMUNOLOGY ORDERABL ES Final Result Performing Organization Address City/[facility] Co de Phone Number [facility] [address] [place] [address], [place] * RUBELLA IMMUNITY IGG (07/26/2021 9:00 AM CDT) [facility] Immune Immune, Invalid 07/26/2021 10:00 PM CDT [facility] Blood No Phlebotomy Charged / Unknown 07/26/2021 9:00 AM CDT 07/26/2021 2:15 PM CDT Narrative [facility] - 07/26/2021 10:00 PM CDT Antibody testing was performed by multiplex flow immunoassay on the BioPlex platform. us Edita L Behrenjhon LOCATE TECHNICIAN, BUTTONHOLE MACHINE OPERATOR CHEMISTRY ORDERABLE S Final Result Performing Organization Address [facility] de Phone Number [facility] [address] [place] [address], [place] * MUMPS IGG (07/26/2021 9:00 AM CDT) Pathologist [facility] Mumps Ab IgG 1.2 >=1.1 AI 07/26/2021 10:00 PM CDT [facility] Blood No Phlebotomy Charged / Unknown 07/26/2021 9:00 AM CDT 07/26/2021 2:15 PM CDT Narrative [facility] - 07/26/2021 10:00 PM CDT <= 0.8 Negative. No detectable Mumps IgG antibody. 0.9 - 1.0 Equivocal >=1.1 Positive Antibody testing was performed by multiplex flow immunoassay on the BioPlex platform. us Editahenry Garza LOCATE TECHNICIAN, BUTTONHOLE MACHINE OPERATOR IMMUNOLOGY ORDERABL ES Final Result Performing Organization Address [facility] Co de Phone Number [facility] [address] [place] [address], [place] * QUANTIFERON-TB GOLD PLUS (07/26/2021 9:00 AM CDT) Pathologist [facility] NIL CONTROL 0.04 <8.01 IU/mL 07/28/2021 1:01 PM CDT [facility] TB ANTIGEN 1 0.00 <0.35 IU/mL 07/28/2021 1:01 PM CDT [facility] TB ANTIGEN 2 0.00 <0.35 IU/mL 07/28/2021 1:01 PM CDT [facility] MITOGEN CONTROL 9.64 >0.49 IU/mL 07/29/19 1:01 PM CDT [facility] INTEPRETATION TB NEGATIVE NEGATIVE, NEGATIVE (TB antigen response less than 25% of internal negative control value) 07/28/2021 1:01 PM CDT [facility] Comment:No immune response t o Mycobacterium tuberculosis antigens was noted. M. tuberculosis infection unlikely. Blood No Phlebotomy Charged / Unknown 07/26/2021 9:00 AM CDT 07/26/2021 2:15 PM CDT Narrative [facility] - 07/28/2021 1:01 PM CDT A [...] otherwise immunocompromised individuals. https://www.cdc.gov/tb/publications/guidelines/testing.htm Edita Garza APRN, BUTTONHOLE MACHINE OPERATOR IMMUNOLOGY ORDERABL ES Final Result Performing Organization Address [facility] de Phone Number [facility] [address] [place] [address], [place] * HEPATITIS B SURFACE ANTIBODY (HBSAB) (07/26/2021 9:00 AM CDT) HEPATITIS B SURFACE ANTIBODY 8.33 mIU/mL [facility] ARCH [id number] B 07/27/2021 12:02 AM CDT [facility] Comment: Grayzone Range: >=8.00 to <=12.00 The immune status of the individual should be further assessed considering other factors, such as clinical status, follow-up testing, associated risk factors and the use of additional diagnostic information. Blood No Phlebotomy Charged / Unknown 07/26/2021 9:00 AM CDT 07/26/2021 2:15 PM CDT Edita Garza APRN, BUTTONHOLE MACHINE OPERATOR CHEMISTRY ORDERABLE S Final Result Performing Organization Address [facility] de Phone Number [facility] [address] [place] [address], [place] documented in this encounter Visit Diagnoses Diagnosis Encounter for pre-employment examination Health examination of defined subpopulation documented in this encounter Additional Health Concerns Assessment Noted Time PHQ-9 Depression Total Score: 0 02/11/20 20 12:57 PM CDT documented as of this encounter Care Teams Terrazzo Polisher Helper Relationship Specialty Start Date End Date Scooter White DO [facility] [facility] [address] PCP - General Internal Medicine 03/17/21 06/22/23 Yon Gutierrez MD 2 [facility] [address] [place] [address] PCP - General Family Medicine 06/23/23 Manda Singh MD Obstetrics & Gynecology 02/11/20 Malik Cates MD [address] [address] Consulting Physician Endocrinology 12/13/21 Ulices Marino MD #[address] [address] Consulting Physician Colon and Rectal Surgery 07/06/22 documented as of this encounter
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
[2024-08-08 20:42] VITALS: BP 126/83; PULSE 99; RESP 20; TEMP 36.4; O2SAT 100
--- NOTE | 2024-08-08 20:46 | PC.NURSE ---
OB at bedside.
--- NOTE | 2024-08-08 20:47 | ECG_ITS ---
Test Date: 2024-08-08 20:57:16 Measurements Intervals Ramona Rate: 95 P: 52 ME: 165 QRS: 32 QRSD: 86 T: 22 QT: 342 QTc: 431 Interpretive Statements SINUS RHYTHM BASELINE ARTIFACT- I, II, III, AVR, AVL, AVF NORMAL ECG No previous ECG available for comparison Electronically Signed On 08-09-2024 06:17:[address] Cobb D[address]
[2024-08-08 20:49] VITALS: PULSE 93
[2024-08-08 20:50] VITALS: BP 126/83; PULSE 99; RESP 13; O2SAT 100
[2024-08-08 20:53] VITALS: O2SAT 100
[2024-08-08 20:53] LABS: Basophils Absolute Auto 0.1 K/mm3 (0.0-0.1); Basophils Percent Auto 0.4 % (0.2-1.2); Eosinophils Absolute Auto 0.1 K/mm3 (0-0.3); Eosinophils Percent Auto 0.6 % (0-4.4); Hematocrit 33.8 % (37.0-47.0); Hemoglobin 11.4 g/dL (12.0-15.0); Immature Granulocyte Absolute 0.39 K/mm3 (0.00-0.031); Immature Granulocyte Percent A 2.3 % (0-0.5); Lymphocytes Absolute Auto 2.21 K/mm3 (0.9-3.2); Lymphocytes Percent Auto 13.1 % (18.3-44.2); Mean Corpuscular HGB Conc 33.7 g/dl (32-36); Mean Corpuscular Hemoglobin 30.1 pg (26-34); Mean Corpuscular Volume 89.2 fl (80-100); Mean Platelet Volume 9.5 fl (7.4-10.4); Monocytes Absolute Auto 0.9 K/mm3 (0.1-0.6); Monocytes Percent Auto 5.4 % (2.6-8.5); Neutrophils Absolute Auto 13.2 K/mm3 (1.3-6.7); Neutrophils Percent Auto 78.2 % (45.5-73.1); Platelet Count Result 271 k/mm3 (150-375); Red Blood Count 3.79 M/mm3 (4.2-5.4); Red Cell Distribution Width 12.8 % (11.5-14.5); White Blood Count 16.9 K/mm3 (4.5-10.0)
[2024-08-08 21:03] LABS: Alanine Aminotransferase 21 U/L (6-35); Albumin Level 3.5 g/dL (3.5-5.1); Alkaline Phosphatase 67 U/L (38-126); Anion Gap 8 mmol/L (4-12); Aspartate Amino Transferase 25 U/L (14-36); Bilirubin,Total 0.2 mg/dL (0.2-1.3); Blood Urea Nitrogen 5 mg/dL (7-17); Calcium 8.6 mg/dL (8.4-10.2); Carbon Dioxide 22 mmol/L (22-30); Chloride 106 mmol/L (98-107); Estimated CRCL calculation 175 ml/min; Estimated Glomerular Filt Rate > 60; Glucose 124 mg/dL (65-110); Lipase 115 U/L (23-300); Potassium 3.8 mmol/L (3.4-5.0); Sodium 136 mmol/L (137-145)
[2024-08-08 21:04] LABS: Prothrombin Time 13.1 Seconds (11.1-14.7)
[2024-08-08 21:05] LABS: Partial Thromboplastin Time 24.3 Seconds (22.3-36.8)
--- NOTE | 2024-08-08 21:12 | ED.ARRPALP ---
HPI - Arrhythmia/Palpitations General Chief Complaint: Arrhythmia/Palpitations Stated Complaint: palpitations, kenrick at 21 weeks Time Seen by Provider: 08/08/24 20:49 History of Present Illness HPI narrative: Patient is a 29-year-old female who presents to the ER with complaints of palpitations and shortness of breath. She reports she is 21 weeks with twins. Patient reports approximately 2 weeks ago she started experiencing chest palpitations. She has a Holter monitor on at this time. Earlier today patient reports she started experiencing shortness of breath. Patient endorses a history of Krsytin's. She reports this is her 4th and carried her 3 previous pregnancies to term. Patient denies any recent fevers, urinary symptoms or vaginal discharge. She reports she has tubes in her ears and noticed 1 of them draining earlier today. Patient reports she has an appointment set up with her in her throat doctor tomorrow morning. Related Data Home Medications ?Medication ?Instructions ?Recorded ?Confirmed ?Last Taken ?Type pantoprazole 40 mg tablet,delayed mg PO 08/08/24 08/08/24 History release Allergies Allergy/AdvReac Type Severity Reaction Status Date / Time prednisone Allergy Intermediate Hives Verified 08/08/24 20:50 Review of Systems Review of Systems: All systems reviewed & are unremarkable except as noted in HPI and below PMFSH Past Medical History Medical History HTN (hypertension) Hx of hemorrhoids Wears glasses History of adverse reaction to anesthesia GERD (gastroesophageal reflux disease) Acute hemorrhoid Anxiety Hypothyroid Surgical History Surgical History History of ovarian cystectomy H/O tubal ligation History of lumpectomy Hx of cholecystectomy History of appendectomy Family History Family History Father Hypertension Mother Alcoholism Thyroid disorder Grandparent Breast cancer Hypertension Thyroid disorder Lung cancer Social History Social History Smoking status: Never smoker Substance use: never Substance use type: does not use Lack of Transportation: No Lack of Food: Never True Current Housing: I Have Housing Concerned About Future Housing: No Difficulty Paying Gas/Electric Bills: No Difficulty Paying for Meds: No Currently Unemployed: No Education: Associate Degree Difficulty w/ Childcare or Family Care: No Living arrangements: with family Gender identity (if verbalized by the patient): Female Spiritual care concerns: No Exam Narrative: GENERAL: Well appearing, well-nourished, non-toxic, in no acute distress. HEAD: Normocephalic, atraumatic. NECK: Supple. No adenopathy, no masses. RESPIRATORY: Airway patent, respirations nonlabored. Clear to auscultation bilaterally, no rales, rhonchi, wheezing. CARDIOVASCULAR: slightly irregular rate and rhythm without murmurs, rubs, or gallops. Peripheral pulses 2+ and equal bilaterally. ABDOMINAL: Soft, nontender, nondistended, no hepatosplenomegaly. Normoactive BS. MUSCULOSKELETAL: Moves all extremities. Strength/ROM intact without gross deformities. SKIN: Warm, dry, normal color. No rashes. NEURO: A&O X3. Speech clear. Cranial nerves II-XII intact. No ataxic movements. PSYCHIATRIC: Appropriate mood and affect. Normal interaction. : vaginal exam performed by OB RN. Pt's cervix is closed. She reports pt is have uterine irritability but is not having regular contractions. Course Vital Signs Vital signs: Vital Signs Temperature 36.4 C L 08/08/24 20:42 Pulse Rate 99 08/08/24 20:42 Respiratory Rate 20 08/08/24 20:42 Blood Pressure 126/83 08/08/24 20:42 Pulse Oximetry 100 08/08/24 20:42 Oxygen Delivery Room Air 08/08/24 20:42 Temperature 36.8 C 08/08/24 22:14 Pulse Rate 87 08/08/24 22:58 Respiratory Rate 25 H 08/08/24 22:58 Blood Pressure 126/75 08/08/24 22:58 Pulse Oximetry 98 08/08/24 22:58 Oxygen Delivery Room Air 08/08/24 20:53 MDM - Arrhythmia/Palpitations MDM Narrative Medical decision making narrative: Patient is a 29-year-old female who presents to the ER with complaints of palpitations and shortness of breath. She reports she is 21 weeks with twins. Patient reports approximately 2 weeks ago she started experiencing chest palpitations. She has a Holter monitor on at this time. Earlier today patient reports she started experiencing shortness of breath. Patient endorses a history of Krystin's. She reports this is her 4th and carried her 3 previous pregnancies to term. Patient denies any recent fevers, urinary symptoms or vaginal discharge. She reports she has tubes in her ears and noticed 1 of them draining earlier today. Patient reports she has an appointment set up with her in her throat doctor tomorrow morning. Labs Ordered: CBC, CMP, lactic acid, troponin, TSH, D-dimer, INR, PTT, lipase, lactic acid Imaging Ordered: Chest x-ray Medications Ordered: 1 L normal saline IV bolus Results: Patient's D-dimer was 1.37, which is within normal limit during . Patient's chemistry indicates she is mildly dehydrated. Patient's urinalysis indicates 21-50 red blood cells, but this was collected after vaginal digital exam. Diagnosis: Mild dehydration, atypical chest pain, shortness of breath Consults: OBGYN (Manda Bryant-outpatient) Patient Education/Shared MDM: Results of lab work and imaging shared with patient. She endorses improvement of symptoms since I haven't been moving around. Patient strongly advised to maintain hydration status upon discharge. She has an appointment with her OBGYN tomorrow and ENT tomorrow. Pt strongly advised to follow-up regarding her Holter monitor also. She will be discharged home with no new prescriptions. Strict return precautions provided. Patient verbalized understanding is in agreement with plan. Vital signs stable at time of discharge. All questions answered. Differential Diagnosis Differential diagnosis: Likely palpitations, anxiety, supraventricular tachycardia and other (pulmonary embolism, atypical chest pain, shortness of breath) Lab Data Attestation: I reviewed the patient's lab results. 08/08/24 20:48 08/08/24 20:48 Labs: Lab Results 08/08/24 08/08/24 08/08/24 Range/Units 20:48 21:17 21:45 WBC 16.9 H (4.5-10.0) K/mm3 RBC 3.79 L (4.2-5.4) M/mm3 Hgb 11.4 L (12.0-15.0) g/dL Hct 33.8 L (37.0-47.0) % MCV 89.2 (80-100) fl MCH 30.1 (26-34) pg MCHC 33.7 (32-36) g/dl RDW 12.8 (11.5-14.5) % Plt Count 271 (150-375) k/mm3 MPV 9.5 (7.4-10.4) fl Immature Gran % (Auto) 2.3 H (0-0.5) % Neut % (Auto) 78.2 H (45.5-73.1) % Lymph % (Auto) 13.1 L (18.3-44.2) % Mcculloch % (Auto) 5.4 (2.6-8.5) % Eos % (Auto) 0.6 (0-4.4) % Baso % (Auto) 0.4 (0.2-1.2) % Lymph # (Auto) 2.21 (0.9-3.2) K/mm3 Mcculloch # (Auto) 0.9 H (0.1-0.6) K/mm3 Eos # (Auto) 0.1 (0-0.3) K/mm3 Baso # (Auto) 0.1 (0.0-0.1) K/mm3 Abs Immat Gran (auto) 0.39 H (0.00-0.031) K/mm3 Absolute Neuts (auto) 13.2 H (1.3-6.7) K/mm3 Absolute Nucleated RBC 0.000 (0.0-0.012) K/mm3 Nucleated RBC % 0.0 (0.0-0.2) % PT 13.1 (11.1-14.7) Seconds INR 1.0 APTT 24.3 (22.3-36.8) Seconds D-Dimer 1.37 H (<0.48) ug/mL Sodium 136 L (137-145) mmol/L Potassium 3.8 (3.4-5.0) mmol/L Chloride 106 (98-107) mmol/L Carbon Dioxide 22 (22-30) mmol/L Anion Gap 8 (4-12) mmol/L BUN 5 L (7-17) mg/dL Creatinine 0.45 L (0.7-1.0) mg/dL Estim Creat Clear Calc 175 ml/min Estimated GFR > 60 (59 - ) Glucose 124 H (65-110) mg/dL Lactic Acid 1.1 (0.7-2.0) mmol/L Calcium 8.6 (8.4-10.2) mg/dL Total Bilirubin 0.2 (0.2-1.3) mg/dL AST 25 (14-36) U/L ALT 21 (6-35) U/L Alkaline Phosphatase 67 (38-126) U/L Troponin I < 0.012 (0.000-0.034) ng/mL Total Protein 7.0 (6.3-8.2) g/dL Albumin 3.5 (3.5-5.1) g/dL Lipase 115 (23-300) U/L TSH (Reflex) 3.990 (0.465-4.68) uIU/mL Urine Color Yellow (Yellow) Urine Appearance Clear (Clear) Urine pH 7.0 (5.0-9.0) Ur Specific [place] 1.010 (1.001-1.035) Urine Protein Negative (Negative) mg/dL Urine Glucose (UA) Trace H (Negative) mg/dL Urine Ketones Negative (Negative) mg/dL Ur Blood (Man) 1+ H (Negative) Urine Nitrate Negative (Negative) Urine Bilirubin Negative (Negative) Urine Urobilinogen 0.2 (<2.0) mg/dL Leukocyte Esterase Rfl Negative (Negative) SATYA/UL Urine RBC 21-50 H (0-2) /hpf Urine WBC 0-5 (0-3) /hpf Ur Squamous Epith Cells None seen (Few) /hpf Urine Bacteria None seen /hpf Urine Casts 0-2 04/03/25 Range/Units 23:32 WBC (4.5-10.0) K/mm3 RBC (4.2-5.4) M/mm3 Hgb (12.0-15.0) g/dL Hct (37.0-47.0) % MCV (80-100) fl MCH (26-34) pg MCHC (32-36) g/dl RDW (11.5-14.5) % Plt Count (150-375) k/mm3 MPV (7.4-10.4) fl Immature Gran % (Auto) (0-0.5) % Neut % (Auto) (45.5-73.1) % Lymph % (Auto) (18.3-44.2) % Mcculloch % (Auto) (2.6-8.5) % Eos % (Auto) (0-4.4) % Baso % (Auto) (0.2-1.2) % Lymph # (Auto) (0.9-3.2) K/mm3 Mcculloch # (Auto) (0.1-0.6) K/mm3 Eos # (Auto) (0-0.3) K/mm3 Baso # (Auto) (0.0-0.1) K/mm3 Abs Immat Gran (auto) (0.00-0.031) K/mm3 Absolute Neuts (auto) (1.3-6.7) K/mm3 Absolute Nucleated RBC (0.0-0.012) K/mm3 Nucleated RBC % (0.0-0.2) % PT (11.1-14.7) Seconds INR APTT (22.3-36.8) Seconds D-Dimer (<0.48) ug/mL Sodium (137-145) mmol/L Potassium (3.4-5.0) mmol/L Chloride (98-107) mmol/L Carbon Dioxide (22-30) mmol/L Anion Gap (4-12) mmol/L BUN (7-17) mg/dL Creatinine (0.7-1.0) mg/dL Estim Creat Clear Calc ml/min Estimated GFR (59 - ) Glucose (65-110) mg/dL Lactic Acid (0.7-2.0) mmol/L Calcium (8.4-10.2) mg/dL Total Bilirubin (0.2-1.3) mg/dL AST (14-36) U/L ALT (6-35) U/L Alkaline Phosphatase (38-126) U/L Troponin I < 0.012 (0.000-0.034) ng/mL Total Protein (6.3-8.2) g/dL Albumin (3.5-5.1) g/dL Lipase (23-300) U/L TSH (Reflex) (0.465-4.68) uIU/mL Urine Color (Yellow) Urine Appearance (Clear) Urine pH (5.0-9.0) Ur Specific [place] (1.001-1.035) Urine Protein (Negative) mg/dL Urine Glucose (UA) (Negative) mg/dL Urine Ketones (Negative) mg/dL Ur Blood (Man) (Negative) Urine Nitrate (Negative) Urine Bilirubin (Negative) Urine Urobilinogen (<2.0) mg/dL Leukocyte Esterase Rfl (Negative) SATYA/UL Urine RBC (0-2) /hpf Urine WBC (0-3) /hpf Ur Squamous Epith Cells (Few) /hpf Urine Bacteria /hpf Urine Casts Imaging Data Attestation: I personally reviewed and interpreted this imaging study as follows: Radiologist's impression: Impressions Chest X-Ray 08/08/24 22:16 IMPRESSION: No acute cardiopulmonary process. Discharge Plan Discharge Clinical Impression: Shortness of breath, Irregular cardiac rhythm, Atypical chest pain, Dehydration, mild Patient Disposition: Home, Self-Care Condition: Stable Instructions: Antibiotic Form Additional Instructions: Please return to the ER with any worsening symptoms. Follow-up with your OBGYN and ENT tomorrow, as planned. Take all regularly scheduled medications. Please remember to drink lots of water. Patient Language: Danish Prescriptions: No Action pantoprazole 40 mg tablet,delayed release (DR/EC) PO Follow-up/Referrals: Cindi Bryant CNM [Primary Care Provider] - Time of Disposition: 00:41
[2024-08-08 21:15] LABS: Troponin I < 0.012 ng/mL (0.000-0.034)
[2024-08-08] MEDS: SODIUM CHLORIDE 0.9% IV 1,000 ML 999 ML IV CONT (21:15)
[2024-08-08 21:20] LABS: D Dimer 1.37 ug/mL (<0.48)
[2024-08-08 21:31] LABS: Lactic Acid Reflex 1.1 mmol/L (0.7-2.0)
[2024-08-08 21:55] LABS: Add Urine Microscopic? YES; Appearance Urine Clear (Clear); Bacteria Urine None Seen /hpf; Bilirubin Urine Negative (Negative); Blood Urine 1+ (Negative); Color Urine Yellow (Yellow); Glucose Urine UA Trace mg/dL (Negative); Ketones Urine Negative (Negative); Leukocyte Esterase Ur Negative LEU/UL (Negative); Nitrate Urine Negative (Negative); Non Pathogenic Casts 0-2; Protein Urine Negative (Negative); RBC Urine 21-50 /hpf (0-2); Squamous Epithelial Cell Urine None Seen /hpf (Few); Urobilinogen Urine 0.2 mg/dL (<2.0); WBC Urine 0-5 /hpf (0-3)
--- OUTSIDE RECORDS SUMMARY | 2024-08-08 21:55 | XMS_ITS | Encounter Summary ---
Author Organization [facility] Address [address] [place] [address] Phone Care Team Providers Care Physical Design Engineer Name Role Phone Manda Singh MD Unavailable [phone] Scooter White DO Primary Care Provider Malik Cates MD Unavailable Ulices Marino MD Unavailable Yon Gutierrez MD Primary Care Provider Encounter Details Date Type Department Care Team (Late st Contact Info) Description 07/26/2021 Lab Requisition [facility] Laboratory Services [address] [place] [address] Edita Garza, MEASUREMENT DEPARTMENT CHIEF CLERK, BUS VAN DRIVER [address] [place] [address] Encounter for pre-employment examination Social History Tobacco [...] 09/26/2024 1:00 PM CDT Office Visit [facility] - Neurology - [place] [address] [place] [address] Georgina Fontenot, MEASUREMENT DEPARTMENT CHIEF CLERK, STEAM CLEANER [address] [place] [address] documented as of this encounter Procedures Procedure [...] 2.7 >=1.1 AI 07/26/2021 10:00 PM CDT [facility] Blood No Phlebotomy Charged / Unknown 07/26/2021 9:00 AM CDT 07/26/2021 2:15 PM CDT Narrative [facility] - 07/26/2021 10:00 PM CDT <= 0.8 Negative. No detectable VZV IgG antibody. 0.9 - 1.0 Equivocal >=1.1 Positive Antibody testing was performed by multiplex flow immunoassay on the BioPlex platform. Edita Garza MEASUREMENT DEPARTMENT CHIEF CLERK, BUS VAN DRIVER IMMUNOLOGY ORDERABL ES Final Result Performing Organization Address [facility] Co de Phone Number [facility] [address] [place] [address], [place] * (ABNORMAL) RUBEOLA (MEASLES) IGG (07/26/2021 [...] the BioPlex platform. us Edita L Behrends MEASUREMENT DEPARTMENT CHIEF CLERK, BUS VAN DRIVER IMMUNOLOGY ORDERABL ES Final Result Performing Organization Address [facility] Co de Phone Number [facility] [address] [place] [address], [place] * RUBELLA IMMUNITY IGG (07/26/2021 9:00 AM CDT) [facility] Immune Immune, Invalid 07/26/2021 10:00 PM CDT [facility] Blood No Phlebotomy Charged / Unknown 07/26/2021 9:00 AM CDT 07/26/2021 2:15 PM CDT Narrative [facility] - 07/26/2021 10:00 PM CDT Antibody testing was performed by multiplex flow immunoassay on the BioPlex platform. us Edita L Behrenjohn MEASUREMENT DEPARTMENT CHIEF CLERK, BUS VAN DRIVER CHEMISTRY ORDERABLE S Final Result Performing Organization Address [facility] de Phone Number [facility] [address] [place] [address], [place] * MUMPS IGG (07/26/2021 9:00 AM CDT) Pathologist [facility] Mumps Ab IgG 1.2 >=1.1 AI 07/26/2021 [...] on the BioPlex platform. us Editahenry Garza MEASUREMENT DEPARTMENT CHIEF CLERK, BUS VAN DRIVER IMMUNOLOGY ORDERABL ES Final Result Performing Organization Address [facility] Co de Phone Number [facility] [address] [place] [address], [place] * QUANTIFERON-TB GOLD PLUS (07/26/2021 9:00 AM CDT) Pathologist [facility] NIL CONTROL 0.04 <8.01 IU/mL 07/28/2021 1:01 [...] PM CDT Narrative [facility] - 07/28/2021 1:01 PM CDT A POSITIVE [...] otherwise immunocompromised individuals. https://www.cdc.gov/tb/publications/guidelines/testing.htm Edita Garza APRN, BUS VAN DRIVER IMMUNOLOGY ORDERABL ES Final Result Performing Organization Address [facility] de Phone Number [facility] [address] [place] [address], [place] * HEPATITIS B SURFACE ANTIBODY (HBSAB) (07/26/2021 9:00 AM CDT) HEPATITIS B SURFACE ANTIBODY 8.33 mIU/mL [facility] ARCH [id number] 07/27/2021 12:02 AM CDT [facility] Comment: Grayzone Range: >=8.00 to <=12.00 The immune status of the individual should be further assessed considering other factors, such as clinical status, follow-up testing, associated risk factors and the use of additional diagnostic information. Blood No Phlebotomy Charged / Unknown 07/26/2021 9:00 AM CDT 07/26/2021 2:15 PM CDT Edita Garza APRN, BUS VAN DRIVER CHEMISTRY ORDERABLE S Final Result Performing Organization Address [facility] de Phone Number [facility] [address] [place] [address], [place] documented in this encounter Visit Diagnoses Diagnosis Encounter for pre-employment examination Health examination of defined subpopulation documented in this encounter Additional Health Concerns Assessment Noted Time PHQ-9 Depression Total Score: 0 02/11/20 20 12:57 PM CDT documented as of this encounter Care Teams Physical Design Engineer Relationship Specialty Start Date End Date Scooter White DO [facility] [address] PCP - General Internal Medicine 03/17/21 06/22/23 Yon Gutierrez MD 2 [facility] [address] [place] [address] PCP - General Family Medicine 06/23/23 Manda Singh MD Obstetrics & Gynecology 02/11/20 Malik Cates MD [address] [address] Consulting Physician Endocrinology 12/13/21 Ulices Marino MD [address] [address] Consulting Physician Colon and Rectal Surgery 07/06/22 documented as of this encounter
--- OUTSIDE RECORDS SUMMARY | 2024-08-08 21:55 | XMS_ITS | Encounter Summary ---
Author Organization [facility] Address [address] [place] [address] Care Team Providers Care Appeals Referee Name Role Phone Scooter White DO Primary Care Provider [phone] Encounter Details Date Type Department Care Team (Late Contact Info) Description 11/06/2018 Lab Requisition [facility] Care Pathology Lab [address] [place] [address] Cindi Herrera MD [address] [place] [address] Enlarged lymph nodes Social History Tobacco Use [...] Info) Description 08/27/2024 1:[address] [facility] M[facility] & Care [address] [place] [address] documented as of this encounter Procedures Procedure Name Priority Date/Time Associated Diagnosis Comments FLOW CYTOMETRY TISSUE PANEL Routine 11/05/2018 11:02 AM CDT Enlarged lymph nodes documented in this encounter Results * FLOW CYTOMETRY TISSUE PANEL (11/05/2018 11:02 AM CDT) Case Report Flow Cytometry Case: [id number] Authorizing Provider: Cindi Herrera MD Collected: 11/05/2018 11:02 AM Pathologist: Alexa Weinberg MD Received: 11/06/2018 02:01 PM Specimen: Cervical Lymph Node , Left 5:33 PM CDT [facility] PATHOLOGY LAB Final Diagnosis Lymph node, left cervical, flow cytometric immunophenotypic analysis: - No evidence of non-Hodgkin lymphoma. - See interpretation. 5:33 PM [facility] PATHOLOGY LAB Flow Cytometry Interpretation The [...] cytometry specimen is reviewed for quality control lab technician purposes. In summary, the left cervical lymph node specimen shows no evidence of a non-Hodgkin lymphoma. Correlation with additional clinical information and the concurrent biopsy specimen is required. KR 9 5:33 PM T [facility] PATHOLOGY LAB Flow Cytometry Results Differential Result Comment Flow Cell Count /uL [id number] Total Viability % 86.0 Lymphocytes % 97 Dim CD45 Region % 0 Monocytes % 1 Granulocytes % 1 9 5:33 PM CDT [facility] PATHOLOGY LAB Reason for test Enlarged lymph nodes 785.6 9 5:33 PM T [facility] PATHOLOGY LAB Client Specimen ID # [id number] 9 5:33 PM [facility] Number of markers 16 were performed. A Flow CD3 A Flow CD10 A Flow CD20 A Flow CD23 A Flow CD2 A Flow CD4 A Flow CD1a A Flow CD5 A Flow CD19 A Flow CD34 A Flow CD45 A Flow CD7 A Flow CD8 A Flow CD30 A Vancleave+CD19+ A Lambda+CD19+ 9 5:33 PM CDT [facility] PATHOLOGY LAB Disclaimer Test performed at [facility], [address] [place], [place], [address]. *The established laboratory minimum viability is 70%. [...] complexity clinical testing. 9 5:33 PM CDT [facility] PATHOLOGY LAB Embedded Images 9 5:33 PM CDT [facility] PATHOLOGY LAB Pathology/Cytolo gy ENTIRE CERVICAL LYMPH NODE / Unknown 11/05/2018 11:02 AM CDT 11/06/2018 2:01 PM CDT Cindi Herrera MD LAB - PATHOLOGY/CYTO LOGY ORDERABLES [facility] PATHOLOGY LAB [address] [facility]. [address] [phone] documented in this encounter Visit Diagnoses Diagnosis Enlarged lymph nodes Enlargement of lymph nodes documented in this encounter Care Teams Appeals Referee Relationship Specialty Start Date End Date Scooter White DO PCP - General 03/16/22 documented as of this encounter
--- OUTSIDE RECORDS SUMMARY | 2024-08-08 21:55 | XMS_ITS | Continuity of Care Document ---
Author Organization [facility] Address [address] [place] [address] [address] [place] [address] Phone Care Team Providers Care Polysomnograph Tech Name Role Phone Carol OD OD, Georgina [...] - Active Procedures Procedure Date OFFICE/OUTPATIENT VISIT, [facility] Comp cont lens eval No Charge Visit N/C Glasses Check Advance Directives Directive Yes / No Effective Date File Name No Information Encounters Encounter Description Practice Location Reason(s) For Visit Diagnoses Date Provider Providers Copied on Encounter [facility], [address] [place] [address] [address], [place], [place], [id number], tel:[phone] [facility] KENTRELL LOPEZ No Information 3 Carol OD Georgina. [address], [address], [place], [place], [id number], [place]. tel:[phone] Referring Provider: Georgina Medina OD, [address] [address], [place], [address] . tel:[phone] OFFICE/OUTPA TIENT VISIT, [facility], [address] [place] [address], [id number], tel:[phone] [facility]OPEZ blurry vision (chief complaint) dry eye (chief complaint) Krystin's thyroiditisMyo roger, bilateralTear film insufficiency of bilateral lacrimal glandsOther vitreous opacities, bilateralCorne al neovasculariza tion of both eyes 2 Derheimer OD Georgina. [address], [address] [place] [address], [id number], [place]. tel:[phone] Referring Provider: Scooter White, [address], [place], [address]. tel:[phone] [facility], [address] [place] [address], [id number], tel:[phone] [facility] KENTRELL LOPEZ No Information 6 Derheimer OD Georgina. [address], [address] [place] [address], [id number], [place]. tel:[phone] Referring Provider: Georgina Medina OD, [address], [place], [address] . tel:[phone] [facility], [address] [place] [address], [id number], tel:[phone] O[facility] CONSULT KENTRE[facility] LOPEZ blurry vision (chief complaint) Myopia, bilateral 6 Derheimer OD Georgina. [address], [address], [place], [place], [id number], [place]. tel:[phone] Referring Provider: Georgina Medina OD, [address], [place], [address] . tel:[phone] [facility], [address] [place] [address], [id number], tel:[phone] OPH CONSULT KENTRE[facility] LOPEZ No Information 1 Beth Cohenl. [address], [address], [place], [place], [id number], [place]. tel:[phone] Family History Family Member Type Diagnosis Age [...]
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
--- OUTSIDE RECORDS SUMMARY | 2024-08-08 21:55 | XMS_ITS | Encounter Summary ---
Author Organization [facility] Address [address] [place] [address] Phone Care Team Providers Care Order Tracer Name Role Phone Manda Singh MD Unavailable [phone] Robby Torres Primary Care Provider [phone] Scooter White DO Primary Care Provider Malik Cates MD Unavailable Ulices Marino MD Unavailable Yon Gutierrez MD Primary Care Provider Encounter Details Date Type Department Care Team (Late st Contact Info) Description 03/09/2020 Transcribe Orders [facility] Preop/Pacu II [address] [place] [id number] Walter Blake MD [address] [place] [address] Preop testing (Primary Dx) Social History Tobacco [...] COVID-19? Unable to assess 03/10/2020 1:32 PM DRUG ENFORCEMENT AGENT documented as of this encounter Plan of Treatment Upcoming Encounters Date Type Department Care Team (Late st Contact Info) Description 09/26/2024 1:00 PM CDT Office Visit [facility] - Neurology - [place] [address] [place] [address] Georgina Fontenot APRN, BATCH BLENDER [address] [place] [address] documented as of this encounter Visit Diagnoses Diagnosis Preop testing- Primary Preoperative examination, unspecified documented in this encounter Additional Health Concerns Infection Onset Date Last Indicated Resolved Time COVID - 19 03/10/2020 03/10/2020 03/16/2020 11:4 0 AM DRUG ENFORCEMENT AGENT Assessment Noted Time PHQ-9 Depression Total Score: 0 02/11/20 20 12:57 PM CDT documented as of this encounter Care Teams Order Tracer Relationship Specialty Start Date End Date Robby Torres [address] [place] [address] PCP - General Family Medicine 02/11/20 03/16/21 Scooter White DO [address] [place] [address] PCP - General Internal Medicine 03/17/21 06/22/23 Yon Gutierrez MD 2 [facility] [place] [address] PCP - General Family Medicine 06/23/23 Manda Singh MD Obstetrics & Gynecology 02/11/20 Malik Cates MD [address] [address] Consulting Physician Endocrinology 12/13/21 Ulices Marino MD #[address] [address] Consulting Physician Colon and Rectal Surgery 07/06/22 documented as of this encounter
--- OUTSIDE RECORDS SUMMARY | 2024-08-08 21:55 | XMS_ITS | Clinical Summary ---
Author Organization [facility] [email or web address] Address [address] [place] [address] Care Team Providers Care Professor Of Family Medicine Name Role Phone Scooter White DO Primary Care Provider [phone] Source Comments [facility],non-owned Affiliates and Associated Physician Practices is amultiple site organization consisting of ambulatory clinics and hospital sitesin [place], [place], [place] and [place]. This disclosure is being madepursuant to the Care Everywhere program and may not contain all information available regarding this patient. Last updated 18.[facility] [email or web address] Allergies Active Allergy Reactions Criticality Noted Date [...] - 07/31/2024 11:59 PM CDT Hospital Encounter [facility] M[facility] Care [address] [place] [address] Katina Ewing MD Discharge Disposition: Home or Self Care 07/31/2024 12:59 PM CDT - 07/31/2024 11:59 PM CDT Hospital Encounter [facility] [address] [place] [address] Katina Ewing MD Discharge Disposition: Home or [...] Description 08/27/2024 1:00 PM CDT Appointment [facility] Maternal [facility] Care [address] [place], [place] [address] Health Maintenance Due Date Last Done Comments [...] History ====== OB History 4. Para 3 [id number] 1. live 2011. Gest. age 39 w [...] 0 lb 13 oz EFW by Hadlock ([id number]) EFW discordance 6.6 % accelerated Fetus B: [...] 0 lb 13 oz EFW by Hadlock ([id number]) EFW discordance 6.6 % appropriate Fetus A: [...] view. RVOT view. LVOT view. 3-vessel view. 2-yrsjbn-meukrob view. Aortic arch view. Bicaval view. Great [...] Thorax 4-chamber view. LVOT view. 3-vessel view. 3-neivxw-wjsmlgu view. Aortic arch view. Bicaval view. Interventricular [...] your patient in consultation. Coding ====== Procedures 25921: US Preg Uterus Detailed 10143: US Preg Uterus Detailed, Additional Gest 59883: US Preg Uterus Transvaginal [email or web address] PACS Anatomical Region Laterality Modality Other 07/31/2024 12:5 5 PM CDT Cindi Bryant INSIGHTS MANAGER-CONTINUOUS IMPROVEMENT SPECIALIST M ORDERABLES from Last 3 Months Care Teams Professor Of Family Medicine Relationship Specialty Start Date End Date Scooter White DO PCP - General 03/16/22
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
--- OUTSIDE RECORDS SUMMARY | 2024-08-08 21:55 | XMS_ITS | Continuity of Care Document ---
Author Organization [facility] Address [address] [employer] [place] [address] Phone Care Team Providers Care Log Chain Worker Name Role Phone Robby Trores MD Unavailable Unavailable Allergies, Adverse Reactions, Alerts [...] Diagnoses Date Provider Providers Copied on Encounter [facility], [address] [facility] [address] [place], [address], [place] tel:[phone] [facility] No Information 1 Brian Bustamante. [address], [place], [place], [address] , [place]. tel:[phone] [facility], [address], [place], [place], [address], [place] tel:[phone] [facility] No Information 0 Brian Bustamante. [address], [address], [place], [place], [address] , [place]. tel:[phone] OFFICE/OUTPA TIENT VISIT, [facility], [address], [place], [place], [address], [place] tel:[phone] [facility] anxiety1 (chief complaint) Generalized Anxiety DisorderHypothyroid ism 0 Brian Bustamante. [address], [place], [place], [address] , [place]. tel:[phone] Referring Provider: Robby Torres [address], [place], [place], [address]. tel:[phone] OFFICE/OUTPA TIENT VISIT, [facility] ([facility], [address], [place], [place], [address], [place] tel:[phone] [facility] anxiety1 (chief complaint) Generalized Anxiety DisorderGoiter 0 Brian Bustamante. [address], [place], [place], [address] , [place]. tel:[phone] Referring Provider: Robby Torres [address], [place], [place], [address]. tel:[phone] OFFICE/OUTPA TIENT VISIT, [facility] ([facility], [address], [place], [place], [address], [place] tel:[phone] [facility] thyroid nodule1 (chief complaint) anxiety1 (chief complaint) GoiterGeneralized Anxiety Disorder 0 Brian Menendez [address], [place], [place], [address] , [place]. tel:[phone] Referring Provider: Gissel Banks [address], [place], [place], [address]. tel:[phone] OFFICE/OUTPA TIENT VISIT, [facility] ([facility], [address], [place], [place], [address], [place] tel:[phone] [facility] anxiety1 (chief complaint) iron1 (chief complaint) thyroid1 (chief complaint) Disorder of iron metabolism, unspecifiedGoiterGe neralized Anxiety Disorder Lonnie-0 0 Brian Bustamante. [address], [place], [place], [address] , [place]. [phone] Referring Provider: Gissel Banks [address], [place], [place], [address]. tel:[phone] OFFICE/OUTPA TIENT VISIT, [facility] ([facility], [address], [place], [place], [address], [place] tel:[phone] [facility] ankle pain1 (chief complaint) fatigue1 (chief complaint) thyroid1 (chief complaint) anemia1 (chief complaint) Pain in right ankleFatigueAnemiaG oiter 0 Brian Bustamante. [address], [place], [place], [address] , [place]. tel:[phone] Referring Provider: Giss[address], [place], [place], [address]. tel:[phone] OFFICE/OUTPA TIENT VISIT, [facility] ([facility], [address], [place], [place], [address], [place] tel:[phone] [facility] rash1 (chief complaint) Allergic contact dermatitis due to plants, except food Aug- 0 Brian Bustamante. [address], [place], [place], [address] , [place]. [phone] Referring Provider: Gissel Banks [address], [place], [place], [address]. tel:[phone] OFFICE/OUTPA TIENT VISIT, [facility] ([facility], [address], [place], [place], [address], tel:[phone] [facility] Medicine thyroid1 (chief complaint) ferritin1 (chief complaint) IgA (chief complaint) fatigue1 (chief complaint) GoiterDisorder of iron metabolism, unspecifiedVitamin D deficiency, unspecifiedRaised level of immunoglobulinAnemi aH. pylori as the cause of diseases classified elsewhereFatigue 0 Brian Bustamante. [address] [facility] [place], [address] , . tel:[phone] Referring Provider: Gissel Banks [place], [place], [address]. tel:[phone] PREV VISIT, NEW, AGE 18-39 [facility], [address] [place] [address] [employer] [place], [address], tel:[phone] [facility] PHysical (chief complaint) Encntr for general adult medical exam w/o abnormal findings 0 Brian Bustamante. [address], [facility] A, [place], [place], [address] , [place]. tel:[phone] Referring Provider: Robby Torres [address] [place] [address], [id number]. tel:[phone] Family History Family Member Type Diagnosis Age [...] Referral Referred To: Jean Carlos BolañosJoe silva [address] [facility]
[address] [place], [place] [id number] Ordered: Referrals: Allopathic & Osteopathic Physicians : [...] any dysphagia ankle pain1 Pt was at [place] [employer] and she stepped on gravel [...] or swelling . fatigue1 Pt has mild char dust cleaner and salvager mark fatigue Pt had sleep study done [...]
--- OUTSIDE RECORDS SUMMARY | 2024-08-08 21:55 | XMS_ITS | Encounter Summary ---
Author Organization [facility] Address [address] [place] [address] Phone Care Team Providers Care Youth Worker Name Role Phone Manda Singh MD Unavailable Robby Torres Primary Care Provider [phone] Scooter White DO Primary Care Provider Malik Cates MD Unavailable Ulices Marino MD Unavailable Yon Gutierrez MD Primary Care Provider Encounter Details Date Type Department Care Team (Late st Contact Info) Description 04/09/2020 Telephone [facility] [address] [address] [address] Saud Dalton MD [address] [place] [address] Social History Tobacco Use Types Packs/Day [...] COVID-19? No / Unsure 03/20/2020 6:06 AM ROUSTABOUT CREW PUSHER documented as of this encounter Miscellaneous Notes * Telephone Encounter - Mahnaz Alaniz - 04/09/2020 2:50 PM CST Patient no showed her appointment, left voice message to call the office to reschedule. Sent out a no show letter. TABOUT CREW PUSHER documented in this encounter Plan of Treatment Upcoming Encounters Date Type Department Care Team (Late st Contact Info) Description 09/26/2024 1:00 PM CDT Office Visit [facility] - [facility] [address] [place] [address] Georgina Fontenot APRN, CONTRACT GRAPHIC DESIGNER [address] [place] [address] documented as of this encounter Visit Diagnoses Not on filedocumented in this encounter Additional Health Concerns Assessment Noted Time PHQ-9 Depression Total Score: 0 02/11/20 20 12:57 PM CDT documented as of this encounter Care Teams Youth Worker Relationship Specialty Start Date End Date Robby Torres [address] [place] [address] PCP - General Family Medicine 02/11/20 03/16/21 Scooter White DO [facility] [place] [address] PCP - General Internal Medicine 03/17/21 06/22/23 Yon Gutierrez MD 2 [facility] [address] [place] [address] PCP - General Family Medicine 06/23/23 Manda Singh MD Obstetrics & Gynecology 02/11/20 Malik Cates MD [address] [address] Consulting Physician Endocrinology 12/13/21 Ulices Marino MD #[address] [address] Consulting Physician Colon and Rectal Surgery 07/06/22 documented as of this encounter
--- OUTSIDE RECORDS SUMMARY | 2024-08-08 21:55 | XMS_ITS | Clinical Summary ---
Author Organization [facility] Address [address] [facility], [address] [address] Phone Care Team Providers Care Circus Laborer Name Role Phone Manda Singh MD Unavailable [phone] Malik Cates MD Unavailable Ulices Marino [...] 97.5 kg (215 lb) 04/19/2023 8:07 AM BOTTOM IRONER Height 165.1 cm (5' 5 ) 04/19/2023 8:07 AM BOTTOM IRONER Body Mass Index 35.78 04/19/2023 8:07 AM BOTTOM IRONER Plan of Treatment Upcoming Encounters Date Type Department Care Team (Late st Contact Info) Description 09/26/2024 1:00 PM CDT Office Visit [facility] - [facility]rology - [place] [address] [place] [address] Georgina Fontenot, DECK MOLDER, FRUIT THINNER [address] [place] [address] Health Maintenance Due Date Last Done Comments [...] this topic Medical Devices Implanted Type Area Systems Support Officer Device Identifier Shelf Expiration Date Model / Serial / Lot Tube Ventilation 5mm Carey Triune - [id number] Implanted:Qty: 1 on 11/05/2018 by Jordon Deng MD at [facility] IMPLANT Left: Ear [employer] 04/06/2020 510-122 / 510-122 / [id number] Description:Ear tubes came f rom the same package Tube Ventilation 5mm Carey Triune - [id number] Implanted:Qty: 1 on 11/05/2018 by Jordon Deng MD at [facility] IMPLANT Right: Ear [employer] 04/06/2020 510-122 / 510-122 / [id number] Description:Ear tubes came f rom the same package Insurance * Guarantor: [facility] Account Type Relation to Patient Date of Phone Billing Address Institutional Other [address] [place] [address] Care Teams Circus Laborer Relationship Specialty Start Date End Date Yon Gutierrez MD 2 [facility] [address] [place] [address] PCP - General Family Medicine 06/23/23 Manda Singh MD Obstetrics & Gynecology 02/11/20 Malik Cates MD [address] [address] Consulting Physician Endocrinology 12/13/21 Ulices Marino MD #[address] [address] Consulting Physician Colon and Rectal Surgery 07/06/22
[2024-08-08 22:14] VITALS: BP 131/88; PULSE 96; RESP 23; TEMP 36.8; O2SAT 99
--- NOTE | 2024-08-08 22:25 | PC.NURSE ---
Patient states her right leg is numb. When grabbing patients right foot she states she can feel it, but it feels asleep. Notified EDP JAGJIT Haque
[2024-08-08 22:58] VITALS: BP 126/75; PULSE 87; RESP 25; O2SAT 98
--- NOTE | 2024-08-08 23:22 | ECG_ITS ---
Test Date: 2024-08-08 23:37:34 Measurements Intervals [place] Rate: 89 P: 42 AR: 173 QRS: 18 QRSD: 81 T: 16 QT: 349 QTc: 426 Interpretive Statements SINUS RHYTHM BORDERLINE T WAVE ABNORMALITY- ANTERIOR LEADS BASELINE ARTIFACT- I, III, AVR, AVL, AVF, V3 BORDERLINE ECG Compared to ECG 08/08/2024 20:57:16 No significant changes Electronically Signed On 08-09-2024 06:13:[address] Cobb D[address]
--- NOTE | 2024-08-08 23:43 | PC.NURSE ---
2049- This RN at bedside. Pt is a , current twin gestation. Pt complaint of palpitations and contractions. Pt states she has good movement, denies vaginal bleeding or LOF. Abdomen is soft to palpation. Pt states she drinks 4-5 big stanleys daily and has had vaginal sex in the past 24 hours. Pt given marker and instructed to vanna when she feels contractions. No contractions felt per palpation. 2101- CNM called and notified of pts arrival to ER with c/o palpitations. CNM notified of FHT's appropriate for gestational age as well as some uterine irritability. Orders received for terbutaline, as well UA and IV fluids and RN to perform SVE. 2139- Pt states her contraction pain has improved with IV fluids. 2141- RN called CNM and notified her that pts contraction pain has improved, that terbutaline was not administered due to elevated maternal heart rate, closed cervical exam. CNM made aware of one variable in Baby A's tracing. Orders received for pt to follow up with CNM's office.
[2024-08-09 00:07] LABS: Troponin I < 0.012 ng/mL (0.000-0.034)
--- NOTE | 2024-08-09 00:30 | PC.NURSE ---
Addendum entered by Kassandra Black RN 08/09/24 00:52: [id number] pt on monitor Original Note: FHR A-155 with moderate variability FHR B- 165 with moderate variability Some uterine irritability noted. Pt on monitor from [id number]
== END 2024-08-09 00:53 | disposition home or self-care (01) ==
PROVIDERS: Student in an Organized Health Care Education/Training Program; Emergency Provider Registered Nurse; PCP Advanced Practice Midwife
DX: O26.892 Other specified pregnancy related conditions, second trimester (principal); R06.02 Shortness of breath; R07.89 Other chest pain; I49.9 Cardiac arrhythmia, unspecified; E86.0 Dehydration; Z3A.21 21 weeks gestation of pregnancy
CPT/HCPCS: 36415; 71045; 80053; 81001; 83605; 83690; 84443; 84484; 85025; 85380; 85610; 85730; 87040; 93005; 93242; 96360; 99284; J7030

== ENCOUNTER 2024-08-26 22:16 | Observation (INO) | payer OTHER, SELFPAY ==
--- OUTSIDE RECORDS SUMMARY | 2024-08-27 01:11 | XMS_ITS | Encounter Summary ---
Author Organization [facility] Address [address] [place] [address] Phone Care Team Providers Care Strategic Alliances Manager Name Role Phone Manda Singh MD Unavailable [phone] Robby Torres Primary Care Provider [phone] Scooter White DO Primary Care Provider Malik Caets MD Unavailable Ulices Marino MD Unavailable Yon Gutierrez MD Primary Care Provider Encounter Details Date Type Department Care Team (Late st Contact Info) Description 03/09/2020 Transcribe Orders [facility] Preop/Pacu II [address] [place] [id number] Walter Blake MD [address] [place] [address] Preop testing (Primary Dx) Social History Tobacco [...] COVID-19? Unable to assess 03/10/2020 1:32 PM ADMINISTRATOR SOCIAL WELFARE documented as of this encounter Plan of Treatment Upcoming Encounters Date Type Department Care Team (Late st Contact Info) Description 09/26/2024 1:00 PM CDT Office Visit [facility] - Neurology - [place] [address] [place] [address] Georgina Fontenot APRN, NEUROSURGERY SPINE PHYSICIAN [address] [place] [address] documented as of this encounter Visit Diagnoses Diagnosis Preop testing- Primary Preoperative examination, unspecified documented in this encounter Additional Health Concerns Infection Onset Date Last Indicated Resolved Time COVID - 19 03/10/2020 03/10/2020 03/16/2020 11:4 0 AM ADMINISTRATOR SOCIAL WELFARE Assessment Noted Time PHQ-9 Depression Total Score: 0 02/11/20 20 12:57 PM CDT documented as of this encounter Care Teams Strategic Alliances Manager Relationship Specialty Start Date End Date Robby Torres [address] [place] [address] PCP - General Family Medicine 02/11/20 03/16/21 Scooter White DO [address] [facility] [place] [address] PCP - General Internal Medicine 03/17/21 06/22/23 Yon Gutierrez MD 2 [facility] [address] PCP - General Family Medicine 06/23/23 Manda Singh MD Obstetrics & Gynecology 02/11/20 Malik Cates MD #[address] [address] Consulting Physician Endocrinology 12/13/21 Ulices Marino MD #[address] [address] Consulting Physician Colon and Rectal Surgery 07/06/22 documented as of this encounter
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
--- OUTSIDE RECORDS SUMMARY | 2024-08-27 01:11 | XMS_ITS | Clinical Summary ---
Author Organization [facility] [employer] Address [address] [place] [address] Care Team Providers Care Supervisor Labor Gang Name Role Phone Scooter White DO Primary Care Provider [phone] Source Comments [facility],non-owned Affiliates and Associated Physician Practices is amultiple site organization consisting of ambulatory clinics and hospital sitesin [place], [place], [place] and [place]. This disclosure is being madepursuant to the Care Everywhere program and may not contain all information available regarding this patient. Last updated 18.[facility] [employer] Allergies Active Allergy Reactions Criticality Noted Date Comments Prednisone Urticaria Medium 07/31/2024 Medications * Be aware that medications may not be up to date on this document. Alwaysverify current medications with the patient. Vit-Fe Fumarate-FA ( VITAMIN) 28-0.8 MG tablet Take 1 Tab by mouth once daily. Active cyclobenzaprine (Flexeril) 10 MG tabletIndicatio ns:Muscle Spasm Take 1 (one) tablet by mouth 3 times daily as needed for Muscle Spasms Reasons: Muscle Spasm Active SUMAtriptan (Imitrex) 25 MG tabletIndicatio ns:Migraine Take 1 (one) tablet by mouth daily as needed - may repeat one time for Migraine Maximum daily dose: 200 mg/24 hours Reasons: Migraine Headache Active aspirin (Aspirin) 81 MG chew tablet Take 1 (one) tablet by mouth once daily Active ondansetron (Zofran) 4 MG tabletIndicatio ns:Nausea and Vomiting Take 1 (one) tablet by mouth every 6 hours as needed for Nausea/Vomiti ng Reasons: Nausea and Vomiting Active NIFEdipine (PROCARDIA) 10 MG capsule Take 1 Cap by mouth every 4 hours as needed. 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 Supervision of high-risk 08/29/2011 ADHD (attention deficit hyperactivity disorder) 01/23/2008 Estimated Date of Delivery Comme nts Yes 12/15/2024 Based on Ultraso und Encounters Date Type Department Care Team Description 08/27/2024 1:00 PM CDT Hospital Encounter [facility] [address] [place] [phone] Christiano Tristan MD 07/31/2024 12:59 PM CDT - 07/31/2024 11:59 PM CDT Hospital Encounter [facility] [address] [place] [address] Katina Ewing MD Discharge Disposition: Home or Self Care 07/31/2024 12:59 PM CDT - 07/31/2024 11:59 PM CDT Hospital Encounter [facility] [address] [place] [address] Katina Ewing MD Discharge Disposition: Home or [...] at Not on file 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 Gender Identity Not on file Sexual Orientation [...] Contact Info) Description 08/27/2024 1:00 PM CDT Hospital Encounter [facility] Maternal & Care [address] [place] [address] Christiano Tristan MD [address] [facility] [address] [place] [address] Health Maintenance Due Date Last Done Comments PAP SMEAR 1993 HEPATITIS C SCREENING 01/02/2011 DTAP/TDAP/TD VACCINES (1 - Tdap) 01/07/2012 HEPATITIS B VACCINE (1 of 3 - 19+ 3-dose series) 01/07/2012 COVID-19 VACCINE (3 - 2023-2 5 season) 2024 08/06/2021, 07/16/2021 DEPRESSION SCREENING 05/08/2024 OB-ONE HOUR GLUCOSE 09/08/2024 OB-RHOGAM INJECTION 09/22/2024 INFLUENZA VACCINE (Season Ended) 2025 01/24/2020 ZOSTER [...] History ====== OB History 4. Para 3 [id number] 1. live 2011. Gest. age 39 w [...] 0 lb 13 oz EFW by Hadlock (FAS-OP-TF-FL) EFW discordance 6.6 % accelerated Fetus B: [...] 0 lb 13 oz EFW by Hadlock (IFE-AN-IH-FL) EFW discordance 6.6 % appropriate Fetus A: [...] view. RVOT view. LVOT view. 3-vessel view. 0-buxtmt-awmrzdi view. Aortic arch view. Bicaval view. Great [...] Thorax 4-chamber view. LVOT view. 3-vessel view. 8-anzijy-pyysfwn view. Aortic arch view. Bicaval view. Interventricular [...] your patient in consultation. Coding ====== Procedures 44158: US Preg Uterus Detailed 85627: US Preg Uterus Detailed, Additional Gest 65930: US Preg Uterus Transvaginal M Kollabora PACS Anatomical Region Laterality Modality Other 07/31/2024 12:5 5 PM CDT Cindi Bryant APRN-[facility] ORDERABLES Edited Result - Final from Last 3 Months [place] [address] Care Teams Supervisor Labor Gang Relationship Specialty Start Date End Date Scooter White DO PCP - General 03/16/22
--- OUTSIDE RECORDS SUMMARY | 2024-08-27 01:11 | XMS_ITS | Clinical Summary ---
Author Organization [facility] Address [address] [facility], [address] [address] Phone Care Team Providers Care Fence Supervisor Name Role Phone Manda Singh MD Unavailable [phone] Malik Cates MD Unavailable Ulices Marino [...] ETD (Eustachian tube dysfunction), left 08/17/2018 08/17/2018 Encounters Date Type Department Care Team Description 08/19/2024 Transcribe Orders [facility] [address] [place] [address] Provider, Not On File Low back pain, unspecified back pain laterality, unspecified chronicity, unspecified whether sciatica present (Primary Dx) from Last 3 Months Immunizations Immunization Administration Dates Next Due Hepatitis [...] 97.5 kg (215 lb) 04/19/2023 8:07 AM CONVEYOR MAN Height 165.1 cm (5' 5 ) 04/19/2023 8:07 AM CONVEYOR MAN Body Mass Index 35.78 04/19/2023 8:07 AM CONVEYOR MAN Plan of Treatment Upcoming Encounters Date Type Department Care Team (Late st Contact Info) Description 09/26/2024 1:00 PM CDT Office Visit [facility] - [facility]rology [facility] [address] [place] [address] Georgina Fontenot, PLANNING INTERN, CLERICAL ADJUDICATOR [address] [place] [address] Health Maintenance Due Date Last Done Comments [...] this topic Medical Devices Implanted Type Area Histotechnician Device Identifier Shelf Expiration Date Model / Serial / Lot Tube Ventilation 5mm Carey Triune - [id number] Implanted:Qty: 1 on 11/05/2018 [facility] IMPLANT Left: Ear [employer] 04/06/2020 510-122 / [id number] / [id number] Description:Ear tubes came f rom the same package Tube Ventilation 5mm Carey Triune - [id number] Implanted:Qty: 1 on 11/05/2018 [facility] IMPLANT Right: Ear [employer] 04/06/2020 510-122 / 510-122 / [id number] Description:Ear tubes came f rom the same package Insurance * Guarantor: [facility] Account Type Relation to Patient Date of Phone Billing Address Institutional Other [address] [place] [address] Care Teams Fence Supervisor Relationship Specialty Start Date End Date Yon Gutierrez MD 2 [facility] [address] [place] [address] PCP - General Family Medicine 06/23/23 Manda Singh MD Obstetrics & Gynecology 02/11/20 Malik Cates MD [address] [id number] Consulting Physician Endocrinology 12/13/21 Ulices Marino MD [address] [address] Consulting Physician Colon and Rectal Surgery 07/06/22
--- OUTSIDE RECORDS SUMMARY | 2024-08-27 01:11 | XMS_ITS | Encounter Summary ---
Author Organization [facility] Address [address] [place] [address] Care Team Providers Care Lawn Care Worker Name Role Phone Scooter White DO Primary Care Provider [phone] Reason for Referral * (Routine) - Open Specialty Diagnoses / Procedures Referred By Richard rose Referred To Contact Diagnoses Dichorionic diamniotic twin in second trimester (HCC) History of pre-eclampsia in prior , currently (HCC) 24 weeks gestation of (HCC) Supervision of high risk in second trimester ([facility]) Procedures SONOGRAM - COMPLETE Kiley Garcia MD [address] [facility] [facility] [place] [address] Phone: tel: fax: Referral ID Status Reason Start Date Expiration Date Visits Re quested Visits Authorized [id number] Open 08/20/2024 08/20/2025 1 1 Reason for Visit * Reason Comments Ultrasound Encounter Details Date Type Department Care Team ([facility] st Contact Info) Description 08/27/2024 1:00 PM CDT Hospital Encounter [facility] Maternal & Care [address] [place] [address] Christiano Tristan MD [address] [facility] [address] [place] [address] Social History Tobacco Use Types Packs/Day Years Used Date Smoking Tobacco: Never Smokeless Tobacco: Never Alcohol Use Standard Drinks/Week Comments No 0 (1 standard drink = 0.6 oz pur e alcohol) Estimated Date of Delivery Comme nts Yes 12/15/2024 Based on Ultraso und Sex and Gender Information Value Date Recorded Sex Assigned at Not on file 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 Gender Identity Not on file Sexual Orientation Not on file documented as of this encounter Plan of Treatment Scheduled Orders Name Type Priority Associated Diagnoses Orde r Schedule SONOGRAM - COMPLETE MATRNL MED Routine Dichorionic diamniotic twin in second trimester ([facility]) History of pre-eclampsia in prior , currently ([facility]) 24 weeks gestation of ([facility]) Supervision of high risk in second trimester ([facility]) 1 Occurrences starting 08/20/2024 until 08/20/2025 documented as of this encounter Visit Diagnoses Diagnosis Dichorionic diamniotic twin in second trimester ([facility])- Primary Twin , antepartum History of pre-eclampsia in prior , currently ([facility]) with other poor obstetric history 24 weeks gestation of ([facility]) state, incidental Supervision of high risk in second trimester ([facility]) Unspecified high-risk documented in this encounter Care Teams Lawn Care Worker Relationship Specialty Start Date End Date Scooter White DO PCP - General 03/16/22 documented as of this encounter
--- OUTSIDE RECORDS SUMMARY | 2024-08-27 01:11 | XMS_ITS | Continuity of Care Document ---
Author Organization [facility] Address [address] [place] [address] [address] [place] [address] Phone Care Team Providers Care Scheduler Maintenance Name Role Phone Carol OD OD, Georgina [...] - Active Procedures Procedure Date OFFICE/OUTPATIENT VISIT, [facility] Comp cont lens eval No Charge Visit N/C Glasses Check Advance Directives Directive Yes / No Effective Date File Name No Information Encounters Encounter Description Practice Location Reason(s) For Visit Diagnoses Date Provider Providers Copied on Encounter [facility], [address] [place] [address] [address], [place], [place], [id number], tel:[phone] [facility] CONSULT KENTRELL LOPEZ No Information 3 Carol OD Georgina. [address], [place], [place], [id number], [place]. tel:[phone] Referring Provider: Georgina Medina OD, [address], [place], [address] . tel:[phone] OFFICE/OUTPA TIENT VISIT, [facility], [address] [place] [address], [id number], tel:[phone] OPH CONSULT KENTRELL LOPEZ blurry vision (chief complaint) dry eye (chief complaint) Krystin's thyroiditisMyo roger, bilateralTear film insufficiency of bilateral lacrimal glandsOther vitreous opacities, bilateralCorne al neovasculariza tion of both eyes 2 Derheimer OD Georgina. [address], [address] [place] [address], [id number], [place]. tel:[phone] Referring Provider: Scooter White, [address], [place], [address]. tel:[phone] [facility], [address] [place] [address], [id number], tel:[phone] [facility] KENTRELL LOPEZ No Information 6 Derheimer OD Georgina. [address], [address] [place] [address], [id number], [place]. tel:[phone] Referring Provider: Georgina Medina OD, [address], [place], [address] . tel:[phone] [facility], [address] [place] [address], [id number], tel:[phone] OPH CONSULT KENTRELL LOPEZ blurry vision (chief complaint) Myopia, bilateral 6 Derheimer OD Georgina. [address], [place], [place], [id number], [place]. tel:[phone] Referring Provider: Georgina Medina OD, [address], [place], [address] . tel:[phone] [facility], [address] [place] [address], [id number], tel:[phone] OPH CONSULT KENTRELL LOPEZ No Information 1 Beth Cohenl. [address], [place], [place], [id number], [place]. tel:[phone] Family History Family Member Type Diagnosis Age [...]
--- OUTSIDE RECORDS SUMMARY | 2024-08-27 01:11 | XMS_ITS | Encounter Summary ---
Author Organization [facility] Address [address] [place] [address] Phone Care Team Providers Care Linen Sorter Name Role Phone Manda Singh MD Unavailable [phone] Scooter White DO Primary Care Provider Malik Cates MD Unavailable Ulices Marino MD Unavailable Yon Gutierrez MD Primary Care Provider Encounter Details Date Type Department Care Team (Late st Contact Info) Description 07/26/2021 Lab Requisition [facility] Services [address] [place] [address] Edita Garza, LADLE OPERATOR, PRODUCTION GRADER [address] [place] [address] Encounter for pre-employment examination Social History Tobacco [...] 09/26/2024 1:00 PM CDT Office Visit [facility] - Neurology - [place] [address] [place] [address] Georgina Fontenot, LADLE OPERATOR, BUSINESS SYSTEMS MANAGER [address] [place] [address] documented as of this encounter Procedures Procedure [...] 2.7 >=1.1 AI 07/26/2021 10:00 PM CDT [facility] Blood No Phlebotomy Charged / Unknown 07/26/2021 9:00 AM CDT 07/26/2021 2:15 PM CDT Narrative [facility] - 07/26/2021 10:00 PM CDT <= 0.8 Negative. No detectable VZV IgG antibody. 0.9 - 1.0 Equivocal >=1.1 Positive Antibody testing was performed by multiplex flow immunoassay on the BioPlex platform. Edita Garza LADLE OPERATOR, PRODUCTION GRADER IMMUNOLOGY ORDERABL ES Final Result Performing Organization Address [facility] Co de Phone Number [facility] [address] [place] [address], [place] * (ABNORMAL) RU[place] (MEASLES) IGG (07/26/2021 9:00 AM CDT) MEASLES AB IGG 0.7(L) >=1.1 AI 07/26/2021 10:00 PM CDT [facility] Blood No Phlebotomy Charged / Unknown 07/26/2021 9:00 AM CDT 07/26/2021 2:15 PM CDT Narrative [facility] - 07/26/2021 10:00 PM CDT <= 0.8 Negative. No detectable Measles IgG antibody. 0.9 - 1.0 Equivocal >=1.1 Positive Antibody testing was performed by multiplex flow immunoassay on the BioPlex platform. us Edita L Behrends LADLE OPERATOR, PRODUCTION GRADER IMMUNOLOGY ORDERABL ES Final Result Performing Organization Address [facility] Co de Phone Number [facility] [address] [place] [address], [place] * RUBELLA IMMUNITY IGG (07/26/2021 9:00 AM CDT) [facility] Immune Immune, Invalid 07/26/2021 10:00 PM CDT [facility] Blood No Phlebotomy Charged / Unknown 07/26/2021 9:00 AM CDT 07/26/2021 2:15 PM CDT Narrative [facility] - 07/26/2021 10:00 PM CDT Antibody testing was performed by multiplex flow immunoassay on the BioPlex platform. us Edita L Behrenjohn LADLE OPERATOR, PRODUCTION GRADER CHEMISTRY ORDERABLE S Final Result Performing Organization Address [facility] de Phone Number [facility] [address] [place] [address], [place] * MUMPS IGG (07/26/2021 9:00 AM CDT) Pathologist [facility] Mumps Ab IgG 1.2 >=1.1 AI 07/26/2021 10:00 PM CDT [facility] Blood No Phlebotomy Charged / Unknown 07/26/2021 9:00 AM CDT 07/26/2021 2:15 PM CDT Narrative [facility] - 07/26/2021 10:00 PM CDT <= 0.8 Negative. No detectable Mumps IgG antibody. 0.9 - 1.0 Equivocal >=1.1 Positive Antibody testing was performed by multiplex flow immunoassay on the BioPlex platform. us Editahenry Garza LADLE OPERATOR, PRODUCTION GRADER IMMUNOLOGY ORDERABL ES Final Result Performing Organization Address [facility] Co de Phone Number [facility] [address] [place] [address], [place] * QUANTIFERON-TB GOLD PLUS (07/26/2021 9:00 AM CDT) Pathologist [facility] NIL CONTROL 0.04 <8.01 IU/mL 07/28/2021 1:01 PM CDT [facility] TB ANTIGEN 1 0.00 <0.35 IU/mL 07/28/2021 1:01 PM CDT [facility] TB ANTIGEN 2 0.00 <0.35 IU/mL 07/28/2021 1:01 PM CDT [facility] MITOGEN CONTROL 9.64 >0.49 IU/mL 07/29/19 1:01 PM CDT [facility] INTEPRETATION TB NEGATIVE NEGATIVE, NEGATIVE (TB antigen response less than 25% of internal negative control value) 07/28/2021 1:01 PM CDT [facility] Comment:No immune response t o Mycobacterium tuberculosis antigens was noted. M. tuberculosis infection unlikely. Blood No Phlebotomy Charged / Unknown 07/26/2021 9:00 AM CDT 07/26/2021 2:15 PM CDT Narrative [facility] - 07/28/2021 1:01 PM CDT A [...] otherwise immunocompromised individuals. https://www.cdc.gov/tb/publications/guidelines/testing.htm Edita Garza APRN, PRODUCTION GRADER IMMUNOLOGY ORDERABL ES Final Result Performing Organization Address [facility] de Phone Number [facility] [address] [place] [address], [place] * HEPATITIS B SURFACE ANTIBODY (HBSAB) (07/26/2021 9:00 AM CDT) HEPATITIS B SURFACE ANTIBODY 8.33 mIU/mL [facility] ARCH [id number] 07/27/2021 12:02 AM CDT [facility] Comment: Grayzone Range: >=8.00 to <=12.00 The immune status of the individual should be further assessed considering other factors, such as clinical status, follow-up testing, associated risk factors and the use of additional diagnostic information. Blood No Phlebotomy Charged / Unknown 07/26/2021 9:00 AM CDT 07/26/2021 2:15 PM CDT Edita Garza APRN, PRODUCTION GRADER CHEMISTRY ORDERABLE S Final Result Performing Organization Address [facility] de Phone Number [facility] [address] [place] [address], [place] documented in this encounter Visit Diagnoses Diagnosis Encounter for pre-employment examination Health examination of defined subpopulation documented in this encounter Additional Health Concerns Assessment Noted Time PHQ-9 Depression Total Score: 0 02/11/20 20 12:57 PM CDT documented as of this encounter Care Teams Linen Sorter Relationship Specialty Start Date End Date Scooter White DO [facility] [facility] [place] [address] PCP - General Internal Medicine 03/17/21 06/22/23 Yon Gutierrez MD 2 [facility] [address] [place] [address] PCP - General Family Medicine 06/23/23 Manda Singh MD Obstetrics & Gynecology 02/11/20 Malik Cates MD #[address] [address] Consulting Physician Endocrinology 12/13/21 Ulices Marino MD #[address] [address] Consulting Physician Colon and Rectal Surgery 07/06/22 documented as of this encounter
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
--- OUTSIDE RECORDS SUMMARY | 2024-08-27 01:11 | XMS_ITS | Encounter Summary ---
Author Organization [facility] Address [address] [place] [address] Care Team Providers Care Nicking Machine Operator Name Role Phone EliseokikeScooter DO Primary Care Provider Encounter Details Date Type Department Care Team (Late Contact Info) Description 11/06/2018 Lab Requisition [facility] Care Pathology Lab [address] [place] [address] Cindi Herrera MD [address] [place] [address] Enlarged lymph nodes Social History Tobacco Use Types Packs/Day Years Used Date Smoking Tobacco: Never Smokeless Tobacco: Never Alcohol Use Standard Drinks/Week Comments No 0 (1 standard drink = 0.6 oz pur e alcohol) Comments No Sex and Gender Information Value Date Recorded Sex Assigned at Not on file Legal Sex Female 1:08 PM CONCRETE FINISHER Gender Identity Not on file Sexual Orientation Not on file documented as of this encounter Plan of Treatment Upcoming Encounters Date Type Department Care Team (Late st Contact Info) Description 08/27/2024 1:00 PM CDT Hospital Encounter [facility] [address] [place] [address] Christiano Tristan MD [address] [facility] [address] [place] [phone] documented as of this encounter Procedures Procedure Name Priority Date/Time Associated Diagnosis Comments FLOW CYTOMETRY TISSUE PANEL Routine 11/05/2018 11:02 AM CDT Enlarged lymph nodes documented in this encounter Results * FLOW CYTOMETRY TISSUE PANEL (11/05/2018 11:02 AM CDT) Case Report Flow Cytometry Case: [id number] Authorizing Provider: Cindi Herrera MD Collected: 11/05/2018 11:02 AM Pathologist: Alexa Weinberg MD Received: 11/06/2018 02:01 PM Specimen: Cervical Lymph Node , Left 9 5:33 PM CDT [facility] PATHOLOGY LAB Final Diagnosis Lymph node, left cervical, flow cytometric immunophenotypic analysis: - No evidence of non-Hodgkin lymphoma. - See interpretation. 9 5:33 PM CDT [facility] PATHOLOGY LAB Flow Cytometry Interpretation [...] the flow cytometry specimen is reviewed for clinical quality rn purposes. In summary, the left cervical lymph node specimen shows no evidence of a non-Hodgkin lymphoma. Correlation with additional clinical information and the concurrent biopsy specimen is required. KR 9 5:33 PM CDT [facility] PATHOLOGY LAB Flow Cytometry Results Differential Result Comment Flow Cell Count /uL [id number] Total Viability % 86.0 Lymphocytes % 97 Dim CD45 Region % 0 Monocytes % 1 Granulocytes % 1 9 5:33 PM CDT [facility] PATHOLOGY LAB Reason for test Enlarged lymph nodes 785.6 9 5:33 PM CDT [facility] PATHOLOGY LAB Client Specimen ID # [id number] 9 5:33 PM CDT [facility] PATHOLOGY LAB Number of markers 16 were performed. A Flow CD3 A Flow CD10 A Flow CD20 A Flow CD23 A Flow CD2 A Flow CD4 A Flow CD1a A Flow CD5 A Flow CD19 A Flow CD34 A Flow CD45 A Flow CD7 A Flow CD8 A Flow CD30 A Jemison+CD19+ A Lambda+CD19+ 9 5:33 PM CDT [facility] PATHOLOGY LAB Disclaimer Test performed at [facility], [address] [place], [place], [address]. *The established laboratory minimum viability is 70%. [...] complexity clinical testing. 9 5:33 PM CDT [facility] PATHOLOGY LAB Embedded Images 9 5:33 PM CDT [facility] PATHOLOGY LAB Pathology/Cytolo gy ENTIRE CERVICAL LYMPH NODE / Unknown 11/05/2018 11:02 AM CDT 11/06/2018 2:01 PM CDT Cindi Herrera MD LAB - PATHOLOGY/CYTOLOGY ORDERA BLEMaria Final Result [facility] PATHOLOGY LAB [address] [place] [address]. [address] [phone] documented in this encounter Visit Diagnoses Diagnosis Enlarged lymph nodes Enlargement of lymph nodes Dichorionic diamniotic twin in second trimester ([facility])- Primary Twin , antepartum History of pre-eclampsia in prior , currently ([facility]) with other poor obstetric history 24 weeks gestation of ([facility]) state, incidental Supervision of high risk in second trimester ([facility]) Unspecified high-risk documented in this encounter Care Teams Nicking Machine Operator Relationship Specialty Start Date End Date Scooter White DO PCP - General 03/16/22 documented as of this encounter
--- OUTSIDE RECORDS SUMMARY | 2024-08-27 01:11 | XMS_ITS | Encounter Summary ---
Author Organization [facility] Address [address] [place] [address] Phone Care Team Providers Care Veneer Stapler Name Role Phone Manda Singh MD Unavailable [phone] Robby Torres Primary Care Provider [phone] Scooter White DO Primary Care Provider Malik Cates MD Unavailable Ulices Marino MD Unavailable Yon Gutierrez MD Primary Care Provider Encounter Details Date Type Department Care Team (Late st Contact Info) Description 04/09/2020 Telephone [facility] [address] [address] [address] Saud Dalton MD [address] [place] [phone] Social History Tobacco Use Types Packs/Day [...] COVID-19? No / Unsure 03/20/2020 6:06 AM MEDICAID PLAN COMPLIANCE DIRECTOR documented as of this encounter Miscellaneous Notes * Telephone Encounter - Mahnaz Alaniz - 04/09/2020 2:50 PM CST Patient no showed her appointment, left voice message to call the office to reschedule. Sent out a no show letter. CAID PLAN COMPLIANCE DIRECTOR documented in this encounter Plan of Treatment Upcoming Encounters Date Type Department Care Team (Late st Contact Info) Description 09/26/2024 1:00 PM CDT Office Visit [facility] - Neurology [facility] [address] [place] [address] Georgina Fontenot APRN, SANITATION ASSOCIATE [address] [place] [address] documented as of this encounter Visit Diagnoses Not on filedocumented in this encounter Additional Health Concerns Assessment Noted Time PHQ-9 Depression Total Score: 0 02/11/20 20 12:57 PM CDT documented as of this encounter Care Teams Veneer Stapler Relationship Specialty Start Date End Date Robby Torres [address] [place] [address] PCP - General Family Medicine 02/11/20 03/16/21 Scooter White DO [facility] [facility] [place] [address] PCP - General Internal Medicine 03/17/21 06/22/23 Yon Gutierrez MD 2 [facility] [address] [place] [address] PCP - General Family Medicine 06/23/23 Manda Singh MD Obstetrics & Gynecology 02/11/20 Malik Cates MD #[address] [address] Consulting Physician Endocrinology 12/13/21 Ulices Marino MD #[address] [address] Consulting Physician Colon and Rectal Surgery 07/06/22 documented as of this encounter
--- OUTSIDE RECORDS SUMMARY | 2024-08-27 01:12 | XMS_ITS | Data Portability ---
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 [address], [place], [address], 9 07:12:01 HBsAg (hepatitis B surface Ag), EIA, serum 2018 019 [facility], [address], [place], [address], 9 07:12:02 hepatitis C Ab, signal-to-c utoff, serum or plasma 2018 019 [facility], [address], [place], [address], 9 07:12:01 RPR (rapid plasma reagin), serum 2018 019 [facility], [address] [facility], [place], [address], 9 07:12:00 hsv (1+2) igg Ab, serum 2018 019 [facility], [address] [facility], [facility], [place], [address], 9 07:12:00 CBC w/ auto diff 2018 019 [facility], [address] [facility], [address], [place], [address], 9 07:11:59 Referral general surgeon referral 2018 019 LANA Moralez MD, [address] [facility] , [facility] [address], [place], [address], 9 12:38:24 ENT referral - Saw Dr. Mora --- need a second opinion. 2018 019 [facility], [address] [facility], [address], [place], [address], 9 17:55:21 Procedures None recorded. Surgeries None recorded. Imaging None recorded. Medication Orders ferrous sulfate 325 mg (65 mg iron) tablet [address] [facility] [address] [facility], [address] [place], [address], 9 11:26:58 Mucinex 600 mg tablet, extended release [address] [facility] [address] [facility], [address] [place], [address], 9 00:24:12 ferrous sulfate 325 mg (65 mg iron) tablet [address] [facility] [address] [facility], [address] [place], [address], 9 12:48:40 Tessalon Perles 100 mg capsule [address] [facility], [address] [place], [address], 9 00:24:06 Patient TargetsNo targets recorded. Patient Instructions Encounter Date Encounter Id Patient Instructions Last Modified By Organization Details Last Modified Time 07/27/2018 [id number] upper respirator y infection (cold): care instructions Not available 07/27/2018 13:23:41 08/29/2018 [id number] hemorrhoids: car e instructions Not available 08/29/2018 16:13:52 anemia: care instructions Not available 08/29/2018 18:08:26 09/05/2018 [id number] Acute Sinusitis: Care Instructions Not available 09/05/2018 12:48:40 11/13/2018 [id number] hemorrhoids: car e instructions Not available 11/27/2018 00:17:15 02/13/2019 [id number] dizziness: care instructions Not available 02/13/2019 11:26:58 electrocardiogra m interpretation* ATHENAFAX Not available 03/13/2019 15:05:29 Reason for Referral ENT Referral for Cervical ly mphadenopathy Saw Dr. Mroa --- need a second opinion. Referring Physician: Lucero Sandoval, Family Medicine, Encounter Date: 07/27/2018 General Surgeon Referral for Hemorrhoids Referring Physician: Ricardo Ramirez, [facility], Encounter Date: 08/29/2018 Results Created Date Observation Date Name Description Value Unit Range Abnormal Flag Note LastModifiedBy Organization Detail LastModifiedTime 07/04/19 19 07/05/2018 TSH + free T4, serum TSH 3.080 uIU/m L 0.450- 4.500 Not Available [facility] [address] [place], [address], 07/05/2018 09:23:03 07/04/19 19 07/05/2018 TSH + free T4, serum T4,free(dire ct) 1.06 NG/dL 0.82-1 .77 Not Available [facility] [address] [place], [address], 07/05/2018 09:23:03 07/04/19 19 07/04/2018 CBC w/ auto diff WBC 7.2 x10e3 /uL 3.4-10 .8 Not Available [facility] [address] [place], [address], 07/05/2018 09:23:03 07/04/19 19 07/04/2018 CBC w/ auto diff RBC 4.87 x10e6 /uL 3.77-5 .28 Not Available [facility] [address] [place], [address], 07/05/2018 09:23:03 07/04/19 19 07/04/2018 CBC w/ auto diff hemoglobin 11.5 g/dL 11.1-1 5.9 Not Available [facility] [address] [place], [address], 07/05/2018 09:23:03 07/04/19 19 07/04/2018 CBC w/ auto diff hematocrit 36.2 % 34.0-4 6.6 Not Available [facility]) [address] [facility], [place], [address], 07/05/2018 09:23:03 07/04/19 19 07/04/2018 CBC w/ auto diff MCV 74 fL 79-97 below low normal Not Available [facility]) [address] [facility], [place], [address], 07/05/2018 09:23:03 07/04/19 19 07/04/2018 CBC w/ auto diff MCH 23.6 pg 26.6-3 3.0 below low normal Not Available [facility]) [address] [facility], [place], [address], 07/05/2018 09:23:03 07/04/19 19 07/04/2018 CBC w/ auto diff MCHC 31.8 g/dL 31.5-3 5.7 Not Available [facility]) [address] [facility], [place], [address], 07/05/2018 09:23:03 07/04/19 19 07/04/2018 CBC w/ auto diff RDW 16.0 % 12.3-1 5.4 above high normal Not Available [facility]) [address] [facility], [place], [address], 07/05/2018 09:23:03 07/04/19 19 07/04/2018 CBC w/ auto diff platelets 480 x10e3 /uL 150-37 9 above high normal Not Available [facility]) [address] [facility], [place], [address], 07/05/2018 09:23:03 07/04/19 19 07/04/2018 CBC w/ auto diff neutrophils 64 % not estab. Not Available [facility] [address] [facility], [place], [address], 07/05/2018 09:23:03 07/04/19 19 07/04/2018 CBC w/ auto diff lymphs 28 % not estab. Not Available [facility] [address] [place], [address], 07/05/2018 09:23:03 07/04/19 19 07/04/2018 CBC w/ auto diff monocytes 6 % not estab. Not Available [facility] [address] [place], [address], 07/05/2018 09:23:03 07/04/19 19 07/04/2018 CBC w/ auto diff eos 1 % not estab. Not Available [facility] [address] [place], [address], 07/05/2018 09:23:03 07/04/19 19 07/04/2018 CBC w/ auto diff basos 1 % not estab. Not Available [facility] [address] [facility], [place], [address], 07/05/2018 09:23:03 07/04/1907/04/2018 CBC w/ auto diff immature cells WAFER MOUNTER Not Available [facility] [address] [place], [address], 07/05/2018 09:23:03 07/04/19 19 07/04/2018 CBC w/ auto diff neutrophils (absolute) 4.6 x10e3 /uL 1.4-7. 0 Not Available [facility] [address] [place], [address], 07/05/2018 09:23:03 07/04/19 19 07/04/2018 CBC w/ auto diff lymphs (absolute) 2.0 x10e3 /uL 0.7-3. 1 Not Available [facility] [address] [place], [address], 07/05/2018 09:23:03 07/04/19 19 07/04/2018 CBC w/ auto diff monocytes(ab solute) 0.5 x10e3 /uL 0.1-0. 9 Not Available [facility] [address] [place], [address], 07/05/2018 09:23:03 07/04/19 19 07/04/2018 CBC w/ auto diff eos (absolute) 0.1 x10e3 /uL 0.0-0. 4 Not Available [facility]) [address] [facility], [place], [address], 07/05/2018 09:23:03 07/04/19 19 07/04/2018 CBC w/ auto diff baso (absolute) 0.1 x10e3 /uL 0.0-0. 2 Not Available [facility] [address] [facility], [place], [address], 07/05/2018 09:23:03 07/04/19 19 07/04/2018 CBC w/ auto diff immature granulocytes 0 % not estab. Not Available [facility] [address] [place], [address], 07/05/2018 09:23:03 07/04/19 19 07/04/2018 CBC w/ auto diff immature grans (abs) 0.0 x10e3 /uL 0.0-0. 1 Not Available [facility] [address] [place], [address], 07/05/2018 09:23:03 07/04/19 19 07/04/2018 CBC w/ auto diff NRBC WAFER MOUNTER Not Available [facility] [address] [place], [address], 07/05/2018 09:23:03 07/04/19 19 07/04/2018 CBC w/ auto diff hematology comments: WAFER MOUNTER Not Available [facility] [address] [facility], [place], [address], 07/05/2018 09:23:03 07/04/19 19 07/05/2018 CMP, serum or plasm a glucose 90 mg/dL 65-99 Not Available [facility] [address] [place], [address], 07/05/2018 09:23:04 07/04/19 19 07/05/2018 CMP, serum or plasm a BUN 9 mg/dL 6-20 Not Available [facility] [address] [place], [address], 07/05/2018 09:23:04 07/04/19 19 07/05/2018 CMP, serum or plasm a creatinine 0.66 mg/dL 0.57-1 .00 Not Available [facility] [address] [place], [address], 07/05/2018 09:23:04 07/04/19 19 07/05/2018 CMP, serum or plasm a eGFR if nonafricn AM 123 mL/mi n/1.7 3 >59 Not Available [facility]) [address] [place], [address], 07/05/2018 09:23:04 07/04/19 19 07/05/2018 CMP, serum or plasm a eGFR if africn AM 142 mL/mi n/1.7 3 >59 Not Available [facility] [address] [place], [address], 07/05/2018 09:23:04 07/04/19 19 07/05/2018 CMP, serum or plasm a BUN/creatini ne ratio 14 9-23 Not Available [facility] [address] [place], [address], 07/05/2018 09:23:04 07/04/19 19 07/05/2018 CMP, serum or plasm a sodium 139 mmol/ L 134-14 4 Not Available [facility] [address] [facility] [place], [address], 07/05/2018 09:23:04 07/04/19 19 07/05/2018 CMP, serum or plasm a potassium 4.4 mmol/ L 3.5-5. 2 Not Available [facility] [address] [facility] [place], [address], 07/05/2018 09:23:04 07/04/19 19 07/05/2018 CMP, serum or plasm a chloride 102 mmol/ L 96-106 Not Available [facility] [address] [facility] [place], [address], 07/05/2018 09:23:04 07/04/19 19 07/05/2018 CMP, serum or plasm a carbon dioxide, total 23 mmol/ L 20-29 Not Available [facility] [address] [facility] [place], [address], 07/05/2018 09:23:04 07/04/1907/05/2018 CMP, serum or plasm a calcium 9.7 mg/dL 8.7-10 .2 Not Available [facility] [address] [facility] [place], [address], 07/05/2018 09:23:04 07/04/19 19 07/05/2018 CMP, serum or plasm a protein, total 8.1 g/dL 6.0-8. 5 Not Available [facility] [address] [facility] [place], [address], 07/05/2018 09:23:04 07/04/1907/05/2018 CMP, serum or plasm a albumin 4.6 g/dL 3.5-5. 5 Not Available [facility] [address] [facility] [place], [address], 07/05/2018 09:23:04 07/04/19 19 07/05/2018 CMP, serum or plasm a globulin, total 3.5 g/dL 1.5-4. 5 Not Available [facility] [address] [facility] [place], [address], 07/05/2018 09:23:04 07/04/1907/05/2018 CMP, serum or plasm a A/G ratio 1.3 1.2-2. 2 Not Available [facility] [address] [facility] [place], [address], 07/05/2018 09:23:04 07/04/1907/05/2018 CMP, serum or plasm a bilirubin, total 0.3 mg/dL 0.0-1. 2 Not Available [facility] [address] [place], [address], 07/05/2018 09:23:04 07/04/1907/05/2018 CMP, serum or plasm a alkaline phosphatase 68 IU/L 39-117 Not Available [facility] [address] [facility] [place], [address], 07/05/2018 09:23:04 07/04/1907/05/2018 CMP, serum or plasm a AST (SGOT) 20 IU/L 0-40 Not Available [facility] [address] [place], [address], 07/05/2018 09:23:04 07/04/1907/05/2018 CMP, serum or plasm a ALT (SGPT) 15 IU/L 0-32 Not Available [facility] [address] [place], [address], 07/05/2018 09:23:04 07/04/1907/05/2018 cytom egalo virus (cmv) igg+i gm Ab, serum cytomegalovi yung (CMV) Ab, IgG <0.60 U/mL 0.00-0 .59 Negat hayde <0.60 Equiv ocal 0.60 - 0.69 Posit hayde >0.69 Not Available [facility]) [address] [facility], [place], [address], 07/05/2018 09:23:04 07/04/1907/05/2018 cytom egalo virus (cmv) igg+i gm Ab, serum cytomegalovi yung (CMV) Ab, IgM <30.0 AU/mL 0.0-29 .9 Negat hayde <30.0 Equiv ocal 30.0 - 34.9 Posit hayde >34.9 A posit hayde resul t is gener ally indic ative of acute infec tion, react ivati on or persi stent IgM produ ction . Not Available [facility]) [address] [facility], [place], [address], 07/05/2018 09:23:04 07/04/1907/05/2018 RPR (rapi d plasm a reagi n), serum RPR Non Reacti ve non reacti ve Not Available [facility]) [address] [facility], [place], [address], 07/05/2018 09:23:05 07/04/1907/05/2018 heter ophil e Ab, quali tativ e latex agglu tinat ion, serum mono qual w/rflx qn Negati ve negati ve The sensi tivit y of Heter ophil e antib srinivasan testi ng is 80-90 %. Epste in [place] IgM testi ng offer s highe r sensi tivit y. Not Available [facility]) [address] [facility], [place], [address], 07/05/2018 09:23:06 08/30/1908/30/2018 CBC w/ auto diff WBC 7.4 x10e3 /uL 3.4-10 .8 Not Available [facility]) [address] [facility], [place], [address], 08/30/2018 07:11:59 08/30/19 19 08/30/2018 CBC w/ auto diff RBC 4.51 x10e6 /uL 3.77-5 .28 Not Available [facility] [address] [place], [address], 08/30/2018 07:11:59 08/30/19 19 08/30/2018 CBC w/ auto diff hemoglobin 11.0 g/dL 11.1-1 5.9 below low normal Not Available [facility] [address] [place], [address], 08/30/2018 07:11:59 08/30/1908/30/2018 CBC w/ auto diff hematocrit 34.2 % 34.0-4 6.6 Not Available [facility] [address] [place], [address], 08/30/2018 07:11:59 08/30/1908/30/2018 CBC w/ auto diff MCV 76 fL 79-97 below low normal Not Available [facility] [address] [place], [address], 08/30/2018 07:11:59 08/30/1908/30/2018 CBC w/ auto diff MCH 24.4 pg 26.6-3 3.0 below low normal Not Available [facility] [address] [place], [address], 08/30/2018 07:11:59 08/30/1908/30/2018 CBC w/ auto diff MCHC 32.2 g/dL 31.5-3 5.7 Not Available [facility] [address] [place], [address], 08/30/2018 07:11:59 08/30/1908/30/2018 CBC w/ auto diff RDW 15.6 % 12.3-1 5.4 above high normal Not Available [facility] [address] [facility] [place], [address], 08/30/2018 07:11:59 08/30/19 19 08/30/2018 CBC w/ auto diff platelets 389 x10e3 /uL 150-37 9 above high normal Not Available [facility] [address] [facility], [place], [address], 08/30/2018 07:11:59 08/30/19 19 08/30/2018 CBC w/ auto diff neutrophils 59 % not estab. Not Available [facility] [address] [facility], [place], [address], 08/30/2018 07:11:59 08/30/19 19 08/30/2018 CBC w/ auto diff lymphs 31 % not estab. Not Available [facility] [address] [facility], [place], [address], 08/30/2018 07:11:59 08/30/1908/30/2018 CBC w/ auto diff monocytes 8 % not estab. Not Available [facility] [address] [facility], [place], [address], 08/30/2018 07:11:59 08/30/1908/30/2018 CBC w/ auto diff eos 1 % not estab. Not Available [facility] [address] [facility], [place], [address], 08/30/2018 07:11:59 08/30/1908/30/2018 CBC w/ auto diff basos 1 % not estab. Not Available [facility] [address] [facility], [place], [address], 08/30/2018 07:11:59 08/30/1908/30/2018 CBC w/ auto diff immature cells WAFER MOUNTER Not Available [facility] [address] [facility], [place], [address], 08/30/2018 07:11:59 08/30/19 19 08/30/2018 CBC w/ auto diff neutrophils (absolute) 4.4 x10e3 /uL 1.4-7. 0 Not Available [facility] [address] [place], [address], 08/30/2018 07:11:59 08/30/1908/30/2018 CBC w/ auto diff lymphs (absolute) 2.3 x10e3 /uL 0.7-3. 1 Not Available [facility] [address] [place], [address], 08/30/2018 07:11:59 08/30/1908/30/2018 CBC w/ auto diff monocytes(ab solute) 0.6 x10e3 /uL 0.1-0. 9 Not Available [facility] [address] [place], [address], 08/30/2018 07:11:59 08/30/1908/30/2018 CBC w/ auto diff eos (absolute) 0.1 x10e3 /uL 0.0-0. 4 Not Available [facility] [address] [place], [address], 08/30/2018 07:11:59 08/30/1908/30/2018 CBC w/ auto diff baso (absolute) 0.0 x10e3 /uL 0.0-0. 2 Not Available [facility] [address] [place], [address], 08/30/2018 07:11:59 08/30/1908/30/2018 CBC w/ auto diff immature granulocytes 0 % not estab. Not Available [facility] [address] [place], [address], 08/30/2018 07:11:59 08/30/1908/30/2018 CBC w/ auto diff immature grans (abs) 0.0 x10e3 /uL 0.0-0. 1 Not Available [facility] [address] [facility], [place], [address], 08/30/2018 07:11:59 08/30/1908/30/2018 CBC w/ auto diff NRBC WAFER MOUNTER Not Available [facility] [address] [facility], [place], [address], 08/30/2018 07:11:59 08/30/1908/30/2018 CBC w/ auto diff hematology comments: WAFER MOUNTER Not Available [facility] [address] [facility], [place], [address], 08/30/2018 07:11:59 08/30/1908/30/2018 hsv (1+2) igg Ab, [...] willy to HSV-1 . Not Available [facility] [address] [facility], [place], [address], 08/30/2018 07:12:00 08/30/1908/30/2018 hsv (1+2) igg Ab, [...] willy to HSV-2 . Not Available [facility] [address] [facility], [place], [address], 08/30/2018 07:12:00 08/30/19 19 08/30/2018 RPR (rapi d plasm a reagi n), serum RPR Non Reacti ve non reacti ve Not Available [facility] [address] [place], [address], 08/30/2018 07:12:00 08/30/1908/30/2018 HIV 1+2 AB + HIV 1 p24 Ag, quali tativ e immun oassa y, serum HIV screen 4TH generation wrfx Non Reacti ve non reacti ve Not Available [facility]) [address] [place], [address], 08/30/2018 07:12:01 08/30/19 19 08/30/2018 hepat itis C Ab, signa l-to- cutof f, serum or plasm a HCV Ab <0.1 s/co_ ratio 0.0-0. 9 Not Available [facility]) [address] [place], [address], 08/30/2018 07:12:01 08/30/19 19 08/30/2018 hepat itis C Ab, signa l-to- cutof f, serum or plasm a comment: Commen t Non react hayde HCV antib srinivasan scree n is consi stent with no HCV infec tion, unles s recen t infec tion is suspe cted or other evide nce exist s to indic ate HCV infec tion. Not Available [facility]) [address] [place], [address], 08/30/2018 07:12:01 08/30/19 19 08/30/2018 HBsAg (hepa titis B surfa ce Ag), EIA, serum HBsAg screen Negati ve negati ve Not Available [facility]) [address] [facility] [place], [address], 08/30/2018 07:12:02 02/14/2002/14/2019 CBC w/ auto diff WBC 7.5 x10e3 /uL 3.4-10 .8 Not Available [facility] [address] [facility], [place], [address], 02/14/2019 06:40:13 02/14/2002/14/2019 CBC w/ auto diff RBC 4.34 x10e6 /uL 3.77-5 .28 Not Available [facility]) [address] [facility], [place], [address], 02/14/2019 06:40:13 02/14/2002/14/2019 CBC w/ auto diff hemoglobin 11.1 g/dL 11.1-1 5.9 Not Available [facility] [address] [facility] [place], [address], 02/14/2019 06:40:13 02/14/2002/14/2019 CBC w/ auto diff hematocrit 34.2 % 34.0-4 6.6 Not Available [facility] [address] [facility] [place], [address], 02/14/2019 06:40:13 02/14/2002/14/2019 CBC w/ auto diff MCV 79 fL 79-97 Not Available [facility] [address] [facility], [place], [address], 02/14/2019 06:40:13 02/14/2002/14/2019 CBC w/ auto diff MCH 25.6 pg 26.6-3 3.0 below low normal Not Available [facility] [address] [place], [address], 02/14/2019 06:40:13 02/14/2002/14/2019 CBC w/ auto diff MCHC 32.5 g/dL 31.5-3 5.7 Not Available [facility] [address] [facility], [place], [address], 02/14/2019 06:40:13 02/14/2002/14/2019 CBC w/ auto diff RDW 15.0 % 12.3-1 5.4 Not Available [facility] [address] [facility], [place], [address], 02/14/2019 06:40:13 02/14/2002/14/2019 CBC w/ auto diff platelets 372 x10e3 /uL 150-45 0 Not Available [facility] [address] [facility] [place], [address], 02/14/2019 06:40:13 02/14/2002/14/2019 CBC w/ auto diff neutrophils 61 % not estab. Not Available [facility] [address] [facility], [place], [address], 02/14/2019 06:40:13 02/14/2002/14/2019 CBC w/ auto diff lymphs 28 % not estab. Not Available [facility] [address] [facility], [place], [address], 02/14/2019 06:40:13 02/14/2002/14/2019 CBC w/ auto diff monocytes 8 % not estab. Not Available [facility] [address] [facility], [place], [address], 02/14/2019 06:40:13 02/14/2002/14/2019 CBC w/ auto diff eos 2 % not estab. Not Available [facility] [address] [facility], [place], [address], 02/14/2019 06:40:13 02/14/2002/14/2019 CBC w/ auto diff basos 1 % not estab. Not Available [facility] [address] [facility], [place], [address], 02/14/2019 06:40:13 02/14/2002/14/2019 CBC w/ auto diff immature cells WAFER MOUNTER Not Available [facility] [address] [facility], [place], [address], 02/14/2019 06:40:13 02/14/2002/14/2019 CBC w/ auto diff neutrophils (absolute) 4.7 x10e3 /uL 1.4-7. 0 Not Available [facility] [address] [facility], [place], [address], 02/14/2019 06:40:13 02/14/2002/14/2019 CBC w/ auto diff lymphs (absolute) 2.1 x10e3 /uL 0.7-3. 1 Not Available [facility] [address] [facility], [place], [address], 02/14/2019 06:40:13 02/14/2002/14/2019 CBC w/ auto diff monocytes(ab solute) 0.6 x10e3 /uL 0.1-0. 9 Not Available [facility] [address] [facility], [place], [address], 02/14/2019 06:40:13 02/14/2002/14/2019 CBC w/ auto diff eos (absolute) 0.1 x10e3 /uL 0.0-0. 4 Not Available [facility] ([facility]) [address] [place], [address], 02/14/2019 06:40:13 02/14/2002/14/2019 CBC w/ auto diff baso (absolute) 0.0 x10e3 /uL 0.0-0. 2 Not Available [facility] ([facility]) [address] [facility], [place], [address], 02/14/2019 06:40:13 02/14/2002/14/2019 CBC w/ auto diff immature granulocytes 0 % not estab. Not Available [facility]) [address] [facility], [place], [address], 02/14/2019 06:40:13 02/14/2002/14/2019 CBC w/ auto diff immature grans (abs) 0.0 x10e3 /uL 0.0-0. 1 Not Available [facility] ([facility]) [address] [place] [address], [place], [address], 02/14/2019 06:40:13 02/14/2002/14/2019 CBC w/ auto diff NRBC WAFER MOUNTER Not Available [facility] ([facility]) [address] [place] [address], [place], [address], 02/14/2019 06:40:13 02/14/2002/14/2019 CBC w/ auto diff hematology comments: WAFER MOUNTER Not Available [facility]) [address] [place] [address], [place], [address], 02/14/2019 06:40:13 02/14/2002/14/2019 iron + total iron- leta ng capac ity (TIBC ), serum iron bind.cap.(TI BC) 353 ug/dL 250-45 0 Not Available [facility]) [address] [facility], [place], [address], 02/14/2019 06:40:14 02/14/2002/14/2019 iron + total iron- leta ng capac ity (TIBC ), serum UIBC 336 ug/dL 131-42 5 Not Available [facility] ([facility]) [address] [place] [address], [address], 02/14/2019 06:40:14 02/14/2002/14/2019 iron + total iron- leta ng capac ity (TIBC ), serum iron 17 ug/dL 27-159 below low normal Not Available [facility]) 0 [facility], [place], [address], 02/14/2019 06:40:14 02/14/2002/14/2019 iron + total iron- leta ng capac ity (TIBC ), serum iron saturation 5 % 15-55 alert low Not Available [facility]) [address] [facility], [place], [address], 02/14/2019 06:40:14 02/14/2002/14/2019 cristina tin, serum or plasm a ferritin, serum 7 NG/mL 15-150 below low normal Not Available [facility]) [address] [facility], [place], [address], 02/14/2019 06:40:14 07/04/19 19 07/04/2018 XR, chest No observ ation record ed. [email or web address] [address] [place], [address], 07/06/2018 16:35:07 08/16/19 19 08/09/2018 CT, neck, soft tissu e, w/ contr ast No observ ation record ed. [address] [place], [address], 11/27/2018 00:09:00 08/17/19 19 08/16/2018 CT, sinus es, w/o contr ast No observ ation record ed. [address] [place], [address], 08/16/2018 13:21:28 Result Notes None recorded. Problems Name Problem SNOMED Code Status Onset Date Resolution Date Notes Provider Name and Address Organization Details Recorded Time Disorder of thyroid gland 99691187 Completed 201811/26/2018 DIONNE [facility] 9 00:12:22 Cervical lymphade nopathy 884836124 Active 2018 DIONNE [facility] 9 11:15:19 Upper respirat ory infectio n 26879873 Completed 201811/13/2018 [place] - [facility] 9 11:05:53 Mean corpuscu lar volume below referenc e range 486318494 Active 2018 [place] [facility] 9 12:49:50 Acute sinusiti s 62552346 Completed 201811/13/2018 [place] [facility] 9 11:05:49 History of Helicoba cter pylori infectio n 80158476403 746857 Active 2018 GI [place] [facility] 9 00:05:39 Chronic gastriti s 8887624 Active 2018 EGD - H pylori, GI [place] [facility] 9 00:06:03 Hemorrho ids 30545556 Active 2018 Gen sx planning for hemorrho [place]ctomy [place] [facility] 9 00:06:27 Dizzines s 576320873 Active 2018 [place] [facility] 9 11:29:10 Infectiv e vaginiti s 100014773 Active Radha Garcia [place] [facility] 6 11:25:47 Infectiv e vaginiti s 491568563 Completed Shahrzad Barrera [place] [facility] 5 09:18:25 Maternal care for diminish ed movement s Active Radha [place] [facility] 6 11:25:47 Maternal care for diminish ed movement s Completed Shahrzad Barrera [place] [facility] 5 09:18:25 Breastfe eding painful 337524322 Active Radha Quicks [place] [facility] 6 11:25:47 Pain in pelvis 00250431 Active Radha Laymons [place] [facility] 6 11:25:47 Vaginal discharg e 715901492 Active white Radha moreno, [facility] 6 11:25:47 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 Procedures Surgical History Date Name Laterality Status Provider Name and Address Organization Details Recorded Time 05/08/19 16 Cholecystectomy completed Radha Garcia [facility] 11/03/2015 11:25:48 01/15/20 15 IUD Insertion completed Ricardo Isauro [facility] 01/14/2015 12:23:57 04/18/20 12 Date of Last Pap Smear completed Mily Parsons [place] [facility] 05/06/2014 16:14:24 05/08/19 10 Appendectomy completed Maida Do [place] [facility] 06/17/2014 11:12:04 Imaging Results Imaging Date Name Status LastModified by Organiz ation Details LastModified Time 07/04/2018 XR, chest completed [email or web address] [address] [place], [address], 07/06/2018 16:35:07 08/09/2018 CT, neck, soft tissue, w/ contrast completed [address] [place], [address], 11/27/2018 00:09:00 08/16/2018 CT, sinuses, w/o contrast completed [address] [place], [address], 08/16/2018 13:21:28 Procedure Notes None recorded. Medical [...] Updated DateTime 9 162.56 cm 36.7 kg/m2 70688.0 4 g 97.9 [degF] 16 /min 76 /min 124 mm[Hg] 86 mm[Hg] Jenelle Groves MA [facility] 9 12:24:37 Date Recorded Body height Body mass index (BMI) Body weight Systolic blood pressure Diastolic blood pressure Provider Name and Address Organization Details Last Updated DateTime 08/29/2018 162.56 cm 36.2 kg/m2 55482.99 g 130 mm[Hg] 94 mm[Hg] Shahrzad Barrera MA [facility] 9 11:38:34 Date Recorded Body height Body mass index (BMI) Body weight Body temperature Heart rate Respiratory rate Systolic blood pressure Diastolic blood pressure Provider Name and Address Organization Details Last Updated DateTime 9 162.56 cm 36 kg/m2 65529.6 1 g 98.3 [degF] 84 /min 20 /min 132 mm[Hg] 84 mm[Hg] Jenelle Groves MA [facility] 9 12:15:41 Date Recorded Body height Body mass index (BMI) Body weight Body temperature Heart rate Respiratory rate Systolic blood pressure Diastolic blood pressure Provider Name and Address Organization Details Last Updated DateTime 9 162.56 cm 35.5 kg/m2 77061.9 7 g 98.3 [degF] 70 /min 18 /min 130 mm[Hg] 80 mm[Hg] Jenelle Groves MA [facility] 9 10:43:45 Date Recorded Body height Body mass index (BMI) Body weight Heart rate Respiratory rate Body temperature Systolic blood pressure Diastolic blood pressure Provider Name and Address Organization Details Last Updated DateTime 9 162.56 cm 36.3 kg/m2 57065.7 9 g 86 /min 20 /min 98.3 [degF] 130 mm[Hg] 82 mm[Hg] Jenelle Groves [place] [facility] 9 11:02:19 Social History Question [...] Problems N Kidney or Bladder Problems N Lung Disease N GI Problems N Depression N Acne N Eating Disorder N Breast Problem N Anemia N Anesthesia Complications N Headaches/Migraines N Ovarian Cancer N Diabetes N Anxiety Disorder N Blood Transfusions N Arthritis N Polyps [...] SNOMED-CT Code Diagnosis ICD10 Code Diagnosis Note [id number] BRENDEN Keene ([facility]) [address] [place] [address] 05/06/2014 15:15:04 05/07/2014 13:43:54 [id number] test positive [id number] Alia Husain ([facility]) [address] [place] [address] 05/22/2014 14:23:39 05/22/2014 15:25:47 [id number] BRENDEN Hameed ([facility]) [address] [place] [address] 06/17/2014 10:44:30 06/17/2014 15:08:09 [id number] Alia Husain ([facility]) [address] [place] [address] 07/15/2014 10:26:03 07/16/2014 09:23:26 Normal [id number] [facility]ia [facility] ([facility]) [address] [place] [address] 08/12/2014 09:35:12 08/12/2014 12:42:08 Normal [id number] [facility] ([facility]) [address] [place] [address] 08/26/2014 11:56:11 08/27/2014 16:10:13 [id number] Alia Vanegas [facility] ([facility]) [address] [place] [address] 09/09/2014 14:42:01 09/09/2014 15:30:17 [id number] [place] [facility] ([facility]) [address] [place] [address] 09/23/2014 09:49:09 09/23/2014 15:23:49 [id number] BRENDEN Mar [facility] ([facility]) [address] [place] [address] 10/07/2014 10:59:01 10/07/2014 11:38:07 [id number] Ricardo Box [place] [facility] ([facility]) [address] [place] [address] 10/21/2014 09:36:51 10/23/2014 12:51:20 [id number] Alia [facility] ([facility]) [address] [place] [address] 11/04/2014 09:43:59 11/04/2014 14:45:01 [id number] Normal [id number] BRENDEN Ke[facility] ([facility]) [address] [place] [address] 11/11/2014 11:18:25 11/11/2014 14:54:02 [id number] Maternal c are for diminished movements 735861065 [id number] Alia [facility] ([facility]) [address] [place] [address] 11/18/2014 10:46:59 11/18/2014 11:58:55 [id number] Bianka Fletcher [place] [facility] ([facility]) [address] [place] [address] 11/24/2014 08:49:50 11/24/2014 10:29:51 [id number] Ricardo Box [facility] ([facility]) [address] [place] [address] 12/24/2014 09:05:47 12/24/2014 12:04:57 care [id number] BRENDEN Chan [facility] ([facility]) [address] [place] [address] 01/14/2015 11:47:27 01/14/2015 12:33:02 care [id number] Uses contraception 70303025 [id number] Alia [facility] ([facility]) [address] [place] [address] 01/19/2015 15:46:51 01/20/2015 09:49:17 IUD check 187815018 [id number] Madyson Obdulio [facility] ([facility]) [address] [place] [address] 02/11/2015 10:38:39 02/18/2015 18:08:10 IUD check 267694963 Z30.431 [id number] Joan Blas [facility] ([facility]) [address] [place] [address] 11/03/2015 11:00:12 11/03/2015 14:33:42 detection examination 48170702 Z32.00 IUD check 516905417 Z30. 627 [id number] Lucero Vanegas 14 IM [address] [place] [address] 07/04/2018 09:50:09 07/04/2018 16:26:43 Cervical lymphadenopathy 557245970 R59.0 Had a cough since 02/2018, on and off No traveling. No cat. Weight stable overall. Fatigue - despite sleeping. No dental issues. No focal weakness. Sweaty at times. Irregular periods. Neuro intact. ENT will do US +/- biopsy soon. Labs. Check for mono, syphilis, CMV, CXR. RTC 3mo Disorder o f thyroid gland 87364156 E07.9 Had a cough since 02/2018, on and off. Check TSH [id number] Lucero Vanegas [address] [place] [address] 07/27/2018 12:09:33 07/31/2018 15:49:44 Cervical lymphadenopathy 672204454 R59.0 Had a cough since 02/2018, on [...] second ENT opinion. Upper resp iratory infection 78389249 J06.9 Strept and Flu negative. Exam unremarkab le. Conservati ve management . [id number] MD Justin Chambersn [address] [place] [address] 08/29/2018 11:23:12 08/30/2018 09:21:21 Gynecologic examination 44869061 Z01.419 CBE and pelvic exam performedP t is on her menstrual cycle, will RTC for pap smear Venereal d isease screening 786069702 Z11.3 Anemia 132602343 D64.9 Hemorrhoids 75950103 K64 .9 [id number] Lucero Vanegas [address] [place] [address] 09/05/2018 12:08:49 09/06/2018 10:44:23 Acute sinusitis 99671959 J01.90 4 days, worsening coughs, chest congestion . Exam sinusitis. Already on antihistam althea, PPI, Augmentin with ENT. Try home Flonase, add mucinex. 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 FeS - taking two tab now. Inc to three - RTC 2mo for ferritin check. [id number] Lucero Lori Vanegas [address] [place] [address] 11/13/2018 10:37:12 11/27/2018 11:36:00 Cervical lymphadenopathy 969658096 R59.0 06/2018: Had a cough since 02/2018, [...] done biopsy - result benign. Chronic gastritis 137838 9 K29.50 Followed by GI.Chronic gastritic, H pylori infection - pt was treated. Per pt, her esophagus was also dilated. Hemorrhoids 52885520 K64 .9 Followed by Gen sx - candidate for hemorrhoid ectomy. History of Helicobacter pylori infection 8365793103 [id number] Z86.19 Followed by GI - treated [id number] Lucero Vanegas [address] [place] [address] 02/13/2019 10:52:03 02/14/2019 08:35:16 Dizziness 528183451 R42 Thyroid was low with Immigration Coordinator recently - pt will be rechecked by [...] Steele Member ID Guarantor Name 07/27/2018 1 [place] [facility] [place] [facility] [place] Yessica Ray [id number] Yessica Corzine 08/29/2018 1 [place] [facility] [place] [facility] Yessica Ray [id number] Yessica Corzine 09/05/2018 1 [facility] [place]ID [id number] Yessica Ray [id number] Yessica Corzine 11/13/2018 1 [facility] [place] Yessica Ray [id number] Yessica Corzine 02/13/2019 2 [place] [facility] [place] [facility] Yessica Ray [id number] Yessica Corzine 02/13/2019 1 [facility] [id number] Luis Antonio Rowe Corzine [id number] Yessica Corzine Notes Date Note Type Note [...] Ricardo Ramirez MD Attn: Accounting,[address] [facility], [place], [address], [place] [facility] 08/29/2018 16:15:04 09/05/2018 text/html 23yo female is h ere for coughs. Coughs Congested chest 4 days of increase Wheeze Sore throat No fever, chills, muscle ache Saw ENT - on Tessalon perles, Augmentin for 1mo, Probiotic, Omeprazole She is on Minerva and Benadryl Lucero moreno [facility] 09/05/2018 12:50:10 11/13/2018 text/html 23yo female [...] Was planning for hemorrhoidectomy Lucero Vacamary moreno [facility] 11/27/2018 00:24:29 02/13/2019 text/html 24yo female [...] with meals Denies room spinning. Lucero Sandoval [facility], [place] - [facility] 02/13/2019 11:29:52 OBGyn Episode Ob Episode Information Episode Created Date Number of Fetuses Patient Bloodtype Patient rh Status Prepregnancy Weight lbs Domestic Partner Domestic Partner Phone Father Name Police Service Technician Status 05/06/20 14 1 A Positive Luis Antonio Mo CLOSED Fetus Data First Name Last Name Admitted to NICU Weight (g) Sex Living Outcome Pediatric Complications Fetus ID Race Codes Race Delivery Type CHASITY LILLY NE false 4309.12 4 F Full Term 5386 2106-3 White Vaginal Problems Problem Notes Problem Name Start Date End Date Resolution Snomed Code Not e Infective vaginitis 515414026 Maternal care for diminished movements 142313655 Darren Calculation Initial Darren Date Initial Exam Date Initial Exam Provider Initial Ultrasound Date Last Menstrual Period Date Ultra Sound Weeks Gestation 11/28/2014 05/06/2014 05/16/2014 02/21/2014 12 Eighteen To Twenty Week Darren Update Ultra Sound Date Fundal Height At Umbil Quickening Date Ultra Sound Latest Weeks Gestation Final Darren Confirmed By Final Darrne Confirmed Date Final Darren Date Ultra Sound Latest Days Gestation 0 [email or web address] 06/17/2014 11/28/19 15 0 Pre-erick Flowsheet Flowsheet Date 05/06/2014 Mckinney Score Blood Edema Fundus Height Fundus Units Glucose Ketones Leukocytes Nitrite Labor Signs Protein Cervic Dilation Cervic Effacement Cervic Station Type Weight in lbs Pre/Post Dialysis Refused 203.194797482405 BP Diastolic BP Location Tested BP Systolic BP Type 64 L arm 118 sitting Fetus Heart Rate Present Fetus Movement Comments Flowsheet Date 05/22/2014 Mckinney Score Blood Edema Fundus Height Fundus Units Glucose Ketones Leukocytes Nitrite Labor Signs Protein Cervic Dilation Cervic Effacement Cervic Station neg none none negative neg Type Weight in lbs Pre/Post Dialysis Refused 198.148279125734 BP Diastolic BP Location Tested BP Systolic [...] Type Weight in lbs Pre/Post Dialysis Refused 164.77392788293 BP Diastolic BP Location Tested BP Systolic [...] Type Weight in lbs Pre/Post Dialysis Refused 201.200255003173 BP Diastolic BP Location Tested BP Systolic [...] Type Weight in lbs Pre/Post Dialysis Refused 203.29876148142 BP Diastolic BP Location Tested BP Systolic BP Type 68 128 Fetus Heart Rate Present A 142 Present Fetus Movement A Yes Comments 28 weeks today Flowsheet Date 08/26/2014 Mckinney Score Blood Edema Fundus Height Fundus Units Glucose Ketones Leukocytes Nitrite Labor Signs Protein Cervic Dilation Cervic Effacement Cervic Station 26 cm none Type Weight in lbs Pre/Post Dialysis Refused 203.06702555876 BP Diastolic BP Location Tested BP Systolic BP Type 74 L arm 122 sitting Fetus Heart Rate Present A 146 Present Fetus Movement A Yes Comments Flowsheet Date 09/09/2014 Mckinney Score Blood Edema Fundus Height Fundus Units Glucose Ketones Leukocytes Nitrite Labor Signs Protein Cervic Dilation Cervic Effacement Cervic Station 30 cm none Type Weight in lbs Pre/Post Dialysis Refused 206.062914795532 BP Diastolic BP Location Tested BP Systolic BP Type 60 L arm 120 sitting Fetus Heart Rate Present A 154 Present Fetus Movement A Yes Comments Flowsheet Date 09/23/2014 Mckinney Score Blood Edema Fundus Height Fundus Units Glucose Ketones Leukocytes Nitrite Labor Signs Protein Cervic Dilation Cervic Effacement Cervic Station 32 cm none Type Weight in lbs Pre/Post Dialysis Refused 205.054581245338 BP Diastolic BP Location Tested BP Systolic BP Type 68 110 Fetus Heart Rate Present A 155 Fetus Movement A Yes Comments Flowsheet Date 10/07/2014 Mckinney Score Blood Edema Fundus Height Fundus Units Glucose Ketones Leukocytes Nitrite Labor Signs Protein Cervic Dilation Cervic Effacement Cervic Station none Type Weight in lbs Pre/Post Dialysis Refused 208.248367931562 BP Diastolic BP Location Tested BP Systolic BP Type 78 110 sitting Fetus Heart Rate Present A 154 Fetus Movement A Yes Comments growth scan ordered Flowsheet Date 10/21/2014 Mckinney Score Blood Edema Fundus Height Fundus Units Glucose Ketones Leukocytes Nitrite Labor Signs Protein Cervic Dilation Cervic Effacement Cervic Station 37 cm none Type Weight in lbs Pre/Post Dialysis Refused 213.365913594090 BP Diastolic BP Location Tested BP Systolic BP Type 72 118 sitting Fetus Heart Rate Present A 140 Present Fetus Movement A Yes Comments gbs today. Flowsheet Date 11/04/2014 Mckinney Score Blood Edema Fundus Height Fundus Units Glucose Ketones Leukocytes Nitrite Labor Signs Protein Cervic Dilation Cervic Effacement Cervic Station 37 cm none Type Weight in lbs Pre/Post Dialysis Refused 216.286918365627 BP Diastolic BP Location Tested BP Systolic [...] Type Weight in lbs Pre/Post Dialysis Refused 217.035589500818 BP Diastolic BP Location Tested BP Systolic [...] Type Weight in lbs Pre/Post Dialysis Refused 221.042295720406 BP Diastolic BP Location Tested BP Systolic [...] Type Weight in lbs Pre/Post Dialysis Refused 223.741550301763 BP Diastolic BP Location Tested BP Systolic [...] At Estimated Date of Delivery false Thalassemia (Lao, Croatian, Mediterranean, Or Background): MCV < 80 false Neural Tube Defect (Meningom yelocele, Spina Bifida, Or Anencephaly) false Congenital Heart Defect false Down Syndrome false Curt-Sachs (eg, Baptism, Cajun , Lao-Sangamon) false Yung Disease false Sickle Cell Disease Or Trait () false Hemophilia Or Other Blood Disorders false Muscular Dystrophy false Cystic Fibrosis false Ashe's Chorea false Mental Retardation/Autism false Other Inherited [...] Domestic Partner Domestic Partner Phone Father Name Police Service Technician Status 06/17/19 15 1 CLOSED Fetus Data First Name Last Name Admitted to NICU Weight (g) Sex Living Outcome Pediatric Complications Fetus ID Race Codes Race Delivery Type 3515.33 8 F Full Term [id number] Vaginal Darren Calculation Initial Darren Date Initial [...]
--- OUTSIDE RECORDS SUMMARY | 2024-08-27 01:12 | XMS_ITS | Data Portability ---
Author Organization [facility] Address [address] [place] [address] [place] [address] Care Team Providers Care Avionics Safety Inspector Name Role Phone ALIS HWANG Primary Care Provider [facility] EDUIN HAMMONDS Educational Audiologist JILLIAN LAO Primary Care Provider Assessment Encounter Date Assessment Date Assessment LastModified by Organization Details LastModified Time 07/31/2024 07/31/2024 Patient is _19__weeks . Discussed plan. Not available 07/31/2024 18:07:16 Plan of Treatment Reminders Order Date Submit Date Provider Last Modified By Organization Details Last Modified Time Details Appointments OB ROUTINE 2024 01:15P Kezia Bryant CNM Not available Not available Not available Lab None recorded. Referral None recorded. Procedures None recorded. Surgeries None recorded. Imaging US, obstetric , limited 2024 025 [email or web address] [place] [facility] [address], [place], [address], 08/22/2024 18:27:06 Medication Orders cyclobenz aprine 5 mg tablet 2024 025 [id number], [address], [place], [place], [id number], 08/09/2024 13:59:24 Protonix 40 mg tablet,de layed release 2024 025 [id number], [address], [place], [place], [id number], 07/31/2024 17:57:39 triamcino lone acetonide 0.5 % topical cream 2024 [facility], [address], [place], [place], [id number], 07/08/2024 11:23:25 Patient TargetsNo targets recorded. Patient InstructionsNo instructions recorded. Reason for Referral None Reported. Results Created Date Observation Date Name Description Value Unit Range Abnormal Flag Note LastModifiedBy Organization Detail LastModifiedTime 07/09/1907/08/2024 CULTU RE: URINE result report SEE RESULT S BELOW Test: Cultu re: Urine Speci men Sourc e: Urine - Clean Catch Speci men Type: Urine Speci men Date: 1357 Resul t Date: 0431 Resul t Statu s: Final resul t Abnor mal: No Resul ting Lab: [facility] [address] [facility] [address] Tel: CULTU RE ----- ----- ----- --- No growt h in 1 day (dete ction level of 10,00 0 colon ies / ml.) Not Available [facility] (Lab) [address], [place], [address], 07/10/2024 05:36:59 06/12/1906/12/2024 US, obste tric, limit ed No observ ation record ed. [email or web address] [place] [address], [place], [address], 06/12/2024 18:21:33 06/12/1906/12/2024 US, obste tric, follo w-up No observ ation record ed. [email or web address] [address], [place], [address], 06/13/2024 18:51:30 07/01/19 25 07/01/2024 US, obste tric, limit ed No observ ation record ed. [email or web address] [place] [address], [place], [address], 07/01/2024 18:30:39 07/01/19 25 07/01/2024 US, obste tric, follo w-up No observ ation record ed. [email or web address] [address], [place], [address], 07/02/2024 23:15:06 07/13/19 25 07/12/2024 US, obste tric, limit ed No observ ation record ed. [email or web address] [address], [place], [address], 07/12/2024 17:50:02 08/09/19 25 08/08/2024 XR, chest , 1 view No observ ation record ed. [place] [address], [place], [address], 08/12/2024 15:18:19 08/10/19 25 07/31/2024 US, obste tric, follo w-up No observ ation record ed. [email or web address] [email or web address] [place], [address], 08/20/2024 12:19:45 08/10/19 25 07/31/2024 US, obste tric, follo w-up No observ ation record ed. [email or web address] [facility] [address] [place], [address], 08/12/2024 22:49:50 08/20/19 25 08/08/2024 ilya r monit or No observ ation record ed. [place] [address], [address], 08/21/2024 11:36:44 08/20/19 25 08/08/2024 ilya r monit or No observ ation record ed. [email or web address] [facility] (Pulmonary) [address], [place], [address], 08/21/2024 18:25:30 08/23/19 25 08/22/2024 imagi ng/di agnos tic resul t No observ ation record ed. [email or web address] [address], [place], [address], 08/22/2024 21:43:39 08/23/19 25 08/22/2024 US, obste tric, limit ed No observ ation record ed. [facility] [address], [place], [address], 08/22/2024 13:56:22 08/23/19 25 08/22/2024 US, obste tric, limit ed No observ ation record ed. [email or web address] [address], [place], [address], 08/23/2024 09:13:42 Result Notes None recorded. Problems Name Problem SNOMED Code Status Onset Date Resolution Date Notes Provider Name and Address Organization Details Recorded Time Pregnanc y 35618378 Completed 202106/09/2022 Kenyetta moreno, [facility] 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 3 15:14:45 Hypothyr oidism 54126098 Completed Eli Chaveznstieh l null, [facility] 3 15:14:45 Antenata l care: history of infertil ity 105784358 Completed Eli Chaveznstieh l null, [facility] 3 15:14:46 Group B Streptoc occus carrier 8667213859 103 Completed bacteriu berta Eli alvarado [facility], [facility] 3 15:14:45 Maternal obesity complica ting pregnanc y, childbir th and the puerperi um, antepart um 5869488747 07 Completed BMI 39- ante testing at 37w Eli Scottannieerin alvarado [facility], [facility] 3 15:14:46 Chronic hyperten allison in obstetri c context 6497297 Completed procardi a , baseline labs, ASA Eli Shettyjoselynluisa alvarado [facility] 3 15:14:46 Placenta circumva llata 0112571 Completed Serial growth u/s Eli alvarado [facility] 3 15:14:45 Pre-ecla mpsia 806365970 Completed Eli Brizuela christiano [facility], [facility] 3 15:14:45 Abnormal cervical Papanico laou smear 017961212 Active 2023 3 lgsil HPV high risk 1 ascus HPV high risk Kenyetta Solano [facility], [facility] 4 11:59:57 Herpes simplex 64821978 Active 2024 Kenyetta Solano [facility], [facility] 5 16:40:53 Human papillom a virus infectio n 049818087 Active 2024 Kenyetta Solano [facility], [facility] 5 16:40:59 Endometr iosis (clinica l) 531323745 Active 2024 Kenyetta Solano [facility], [facility] 5 16:41:22 Pregnanc y 21978606 Active 2024 Kenyetta Solano null, [facility] 5 16:03:06 Twin pregnanc y 59072005 Active 38 wk delivery antenata l testing @ 32wks per [facility] Schedule d rpt 08/27 us ONLY Tabatha Flanagan null, [facility] 5 12:20:16 Antenata l care: history of infertil ity 124951499 Active Peter Bryant CNM [address], [place], [address], [facility] 5 13:48:37 Past pregnanc y history of pre-ecla mpsia 5180088320 33295 Active bASA x2 Tabatha Flanagan null, [facility] 5 17:10:40 Large for gestatio n age fetus 137390972 Active less then 30 sec shoulder dystocia Peter Bryant CNM [address], [place], [address], [facility] 5 13:51:09 Past pregnanc y history of shoulder dystocia 831708874 Active Peter Bryant CNM [address], [place], [address], [facility] 5 13:52:04 Chronic hyperten allison in obstetri c context 0088757 Active Peter Bryant CNM [address], [place], [address], [facility] 5 13:52:55 Palpitat ions 00699427 Active Holter monitor faxed to [facility] nt Cardiolo gy 3 Tabathaclare Flanagan null, [facility] 5 14:05:23 Palpitat ions 52842609 Active Holter monitor faxed to [facility] 07/29 Tabatha moreno, [facility] 5 14:05:23 Migraine 44959837 Active magnesiu m, Excedrin tension, sumatrip ttaum Tabatha Flanagan null, [facility] 5 17:11:50 Migraine 61354571 Active magnesiu m, Excedrin tension, sumatrip tatum Tabatha Flanagan null, [facility] 5 17:11:50 Finding of general energy 994278444 Completed 201807/28/2020 Fatigue; Recorded Elsewher e: No Locat ion: Chaya [facility] S ource: EHR Electronics Maintenance Technician mark: N Amanda ce ID: [id number] Emmanuel lable Time: 10:45:00 AM Messi Garcia MD [address], [place], [address], [facility] 1 15:00:00 Acute vaginiti s 30426258 Completed 201807/28/2020 Vaginiti s;Record ed Elsewher e: No Locat ion: Chaya arevalo [facility] S ource: EHR Electronics Maintenance Technician mark: N Amanda ce ID: [id number] Emmanuel lable Time: 10:45:00 AM Messi Garcia MD [address], [place], [address], [facility] 1 15:00:04 Removal of intraute rine device Completed 201807/28/2020 Encounte r for removal of IUD;Earl rded Elsewher e: No Locat ion: Chaya arevalo [facility] S ource: EHR Electronics Maintenance Technician mark: N Practi ce ID: 0001 Emmanuel lable Time: 10:45:00 AM Messi Garcia MD [address], [place], [address], [facility] 1 15:00:08 Problem Notes None recorded. Procedures Surgical History Date Name Laterality Status Provider Name and Address Organization Details Recorded Time 024 Laparoscopy completed [facility] 05/10/2024 16:42:07 024 Date of Last Pap Smear completed [facility] 08/16/2023 12:00:08 024 procedure on ear completed [facility] 08/16/2023 12:01:09 023 Colposcopy completed Peter Bryant CNM [address], [place], [address], [facility] 06/15/2022 16:59:00 023 Colposcopy completed [facility] 06/15/2022 16:38:21 023 Colposcopy completed [facility] 06/15/2022 16:38:49 022 intrauterine artificial insemination completed [facility] 06/26/2021 09:20:58 021 intrauterine artificial insemination completed [facility] 06/17/2021 12:15:01 021 intrauterine artificial insemination completed [facility] 06/17/2021 12:14:55 021 intrauterine artificial insemination completed [facility] 06/17/2021 12:14:45 021 intrauterine artificial insemination completed [facility] 06/17/2021 12:14:39 021 LAPAROSCOPY, DIAGNOSTIC (SURG) completed [facility] 08/19/2020 14:04:12 07/01/2 020 completed [facility] 10/01/2020 16:23:53 020 Colonoscopy completed [facility] 01/22/2021 10:59:09 019 procedure on neck completed [facility] 12/25/2019 11:25:51 019 hemorrhoidectomy completed [facility] 12/25/2019 11:24:57 016 cholecystectomy completed [facility] 07/16/2021 17:21:15 010 Appendectomy completed [facility] 12/25/2019 11:24:44 Imaging Results Imaging Date Name Status LastModified by Organiz ation Details LastModified Time 06/12/2024 US, obstetric, limited completed [email or web address] [place] [address], [place], [address], 06/12/2024 18:21:33 06/12/2024 US, obstetric, follow-up completed [address], [place], [address], 06/13/2024 18:51:30 07/01/2024 US, obstetric, limited completed [email or web address] [place] [address], [place], [address], 07/01/2024 18:30:39 07/01/2024 US, obstetric, follow-up completed [email or web address] [address], [place], [address], 07/02/2024 23:15:06 07/12/2024 US, obstetric, limited completed [email or web address] [address], [place], [address], 07/12/2024 17:50:02 08/08/2024 XR, chest, 1 view completed [address], [address], 08/12/2024 15:18:19 07/31/2024 US, obstetric, follow-up completed [address] [facility] [address], [address], 08/20/2024 12:19:45 07/31/2024 US, obstetric, follow-up completed [address], [address], 08/12/2024 22:49:50 08/08/2024 holter monitor completed [address], [address], 08/21/2024 11:36:44 08/08/2024 holter monitor active [address] (Pulmonary) [address] [place] [address], [address], 08/21/2024 18:25:30 08/22/2024 imaging/diag nostic result active [email or web address] [address], [place], [address], 08/22/2024 21:43:39 08/22/2024 US, obstetric, limited completed [address], [place], [address], 08/22/2024 13:56:22 08/22/2024 US, obstetric, limited active [email or web address] [address], [place], [address], 08/23/2024 09:13:42 Procedure Notes None recorded. Medical Equipment None Reported. Allergies Allergen ID Allergen Name Allergen Category Reaction Reaction Severity Criticality Documentation Date Start Date Code Code System Note Provider Name and Address Organization Details Recorded Time 65367 prednison e medicatio n hives Not available Not available 07/03/2024 8640 RxNorm Peter Bryant CNM [address], [place], [address] , [facility] 5 09:52:22 Medications Name Sig Start [...] Not Available Not Available triamcino lone acetonide 0.5 % topical cream [...] TABLET BY MOUTH EVERY 8 HOURS DIRECTED 08/09 completed Not Available Not Available Not Available prednison e 20 mg tablet TK 3 TS PO QD 05/02 completed Not Available Not Available Not Available Pregnyl 10,000 unit intramusc ular solution Inject 58816 units every day by intramus cular route [...] 1 TABLET BY MOUTH EVERY 12 HOURS active Not Available Not Available No t Available famotidin e 20 mg tablet TAKE 1 TABLET BY MOUTH 2 TIMES A DAY 05/02 completed Not Available Not Available Not Available ciproflox acin 0.3 % eye drops INSTILL SEVEN DROPS INTO RIGHT EAR TWICE DAILY FOR SEVEN DAYS active Not Available Not Available No t Available cephalexi n 500 mg capsule TAKE 1 CAPSULE BY MOUTH EVERY 6 HOURS 05/02 completed Not Available Not Available Not Available pantopraz ole 40 mg tablet,de layed release TAKE 1 TABLET BY MOUTH EVERY DAY active Not Available Not Available No t Available levothyro xine 125 mcg tablet TAKE [...] 6 hours by oral route as needed. 08/09 completed Not Available Not Available Not Available oxycodone 5 mg tablet TK 1 T [...] TABLET BY MOUTH THREE TIMES DAILY NEEDED active Not Available Not Available No t Available iron 325 mg (65 mg iron) tablet take 1 tablet by oral route every day 07/02 completed Prescrib ed Pinkyher e: Yes Loca tion: [facility] odify By: [email or web address] z Encoun ter DateTime [...] Booster Plus 1.1 % dental paste USE DIRECTED active Not Available Not Available No t Available Novarel 5,000 unit intramusc ular solution Inject 2 units by intramus cular route. 06/26 completed PATIENT GIVEN (2) NOVAREL VAIL INJECTIO N INTO RIGHT HIP LOT [id number] EXP 12/2021 Not Available Not Available Not Available Slynd 4 mg (28) tablet Take 1 tablet every day by oral route. 01/22 completed patient given samples Not Available Not Available Not Available Klayesta 100,000 unit/gram topical powder APPLY TO THE AFFECTED AREA TWICE DAILY active Not Available Not Available No t Available Vitals Date Recorded Body height Body mass index (BMI) Body weight Systolic blood pressure Diastolic blood pressure Provider Name and Address Organization Details Last Updated DateTime 07/08/2024 161.29 cm 37.7 kg/m2 29376.95 g 148 mm[Hg] 82 mm[Hg] Citlalli Bullock [facility] 5 10:59:25 Date Recorded Body weight Body mass index (BMI) Body height Systolic blood pressure Diastolic blood pressure Systolic blood pressure Diastolic blood pressure Provider Name and Address Organization Details Last Updated DateTime 5 46456.3 214 g 38.4 kg/m2 161.29 cm 152 mm[Hg] 92 mm[Hg] 114 mm[Hg] 53 mm[Hg] Kenyetta Solano [facility] 5 17:51:55 Date Recorded Body weight Body mass index (BMI) Body height Systolic blood pressure Diastolic blood pressure Provider Name and Address Organization Details Last Updated DateTime 08/09/2024 644820.4 6799 g 39.6 kg/m2 161.29 cm 119 mm[Hg] 70 mm[Hg] Kenyetta Solano [facility] 5 12:43:20 Social History Question Answer Notes LastModified by Organizat ion Details LastModified Time Tobacco Smoking Status Never Smoker [facility] 06/15/2022 15:31:26 Do You Have An Advance Directive? No Information not available 07/28/2020 What Is Your Level Of Alcohol Consumption? Occasional [email or web address] Information not available 12/25/2019 If You Are , What Was Your Level Of Alcohol Consumption Prior To ? None [email or web address] Information not available 06/15/2022 Are You Blind [...] Type Of Diet Are You Following? REGULAR [email or web address] Information not available 08/19/2020 Do You Or Have You Ever Used E-cigarettes Or Vape? Never Used Electronic Cigarettes [email or web address] Information not available 06/15/2022 What Is The Highest Grade Or Level Of School You Have Completed Or The Highest Degree You Have Received? 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 No Information not available 07/28/2020 What Was The Date Of Your Most Recent Tobacco Screening? 08/09/2024 [email or web address] Information not available 08/09/2024 Have You Ever Been Counseled For Unhealthy Alcohol Use? No Information not available 06/15/2022 Do You Use Protection During Sex? No Information not available 07/28/2020 Do You Use Your Seat Belt Or Car Seat Routinely? Yes Information not available 07/28/2020 Do You Have Smoke And Carbon Monoxide Detectors In Your Home? Yes Information not available 07/28/2020 Do You Or Have You Ever Used Smokeless Tobacco? Never Used Smokeless Tobacco [email or web address] Information not available 06/15/2022 How Much Tobacco Do You Smoke? No [email or web address] Information not available 12/25/2019 Do You Feel Stressed (tense, Restless, Nervous, Or Anxious, Or Unable To Sleep At Night)? [id number] [email or web address] Information not available 08/19/2020 Do You Use Any Illicit Or Recreational Drugs? No Information not available 07/28/2020 Do You Use Sunscreen Routinely? Yes Information not available 07/28/2020 Have You Used IV Drugs? No Information not available 07/28/2020 Do You Or Have You Ever Used Any Other Forms Of Tobacco Or Nicotine? No Information not available 06/15/2022 Sex: Unknown Functional Status Question Answer Note LastModified by Organizat ion Details LastModified Time Do you have difficulty walking or climbing stairs? No Information not available 06/15/2022 Are you able to walk? YESWOREST [email or web address] Information not available 08/19/2020 Are you able to care for yourself? Yes [email or web address] Information not available 06/15/2022 Do you have difficulty dressing or bathing? No [email or web address] Information not available 06/15/2022 What is your exercise level? Occasional [email or web address] Information not available 12/25/2019 Mental Status None recorded. Family History Relationship Description Onset Age of this Age Resolved Age Notes LastModified by Organization Details LastModified Time Maternal Grandmother Disorder of thyroid gland [email or web address] Not available 01/26 16:14:56 Mother Female infertility [email or web address] Not available 05/09 14:45:18 Mother Disorder of thyroid gland [email or web address] Not available 01/26 16:14:56 Father Malignant tumor of pancreas [email or web address] Not available 2024 14:45:18 Brother Malignant tumor of prostate [email or web address] Not available 2024 14:45:18 Paternal Grandmother Malignant tumor of breast [email or web address] Not available 01/26 16:14:56 Paternal Grandmother Malignant tumor of lung [email or web address] Not available 01/26 16:14:56 Medical History Condition Response Allergies (Food, seasonal, environmental ) N Other Y Drug/Latex Allergies/Reactions N Blood Transfusion N Breast Cancer N Lung Disease N Dermatologic Disorders N Defects or Inherited Disease N Breast Problem N Gestational Diabetes N Hematologic disorders N Anesthesia Complications N History of STI Y Deep Vein Thrombosis N Polycystic ovary syndrome N Anxiety Disorder Y Autoimmune disease N Arthritis N Polyps N Infertility Y Acid Reflux (GERD) N History of abnormal pap Y Cancer N Varicosities N Stroke N Neurologic/Epilepsy N Endometriosis Y High Cholesterol N Fibromyalgia N Headaches N Kidney Disease N Heart Problems N Thyroid Problems Y Kidney or Bladder Problems N GI Problems Y Eating Disorder N Anemia [...] SNOMED-CT Code Diagnosis ICD10 Code Diagnosis Note [id number] Peter Bryant CNM [place] [address],[facility] [place] [address] 12/25/2019 10:57:08 12/25/2019 12:38:39 Breast infection 432415720 N61.0 Trying to conceive 64284 9001 Z31.9 96451 Arlet Florez [place] [address],[facility] [place] [address] 06/30/2020 12:07:39 06/30/2020 12:55:49 Pain in pelvis 55903448 R10.2 96128 Messi Garcia MD [place] [address],[facility] [place] [address] 07/02/2020 12:31:33 07/02/2020 16:54:32 Pain in pelvis 64132836 R10.2 This patient is a 25-year-ol d [...] informed consent process. To check fallopian tubes. 33076 Messi Garcia MD [place] [address] [address] 07/23/2020 10:07:53 07/23/2020 10:09:56 [id number] Messi Garcia MD [place] [address] [address] 07/28/2020 13:53:59 07/28/2020 15:27:02 Chest pain 60338527 R07.9 this patient is 25-year-ol d female [...] this patient s visit, including available hand supervisor sanding upon arrive, temperterry e check and being asked a series of screening questions. All staff wore face coverings during this encounter, as well as provided additional cleaning and sanitizing of all surfaces, including countertop s, pens, chairs, door handles, light switches, etc, prior to and following the patient s visit. [id number] Messi Garcia MD [place] [address] [address] 08/04/2020 14:07:07 08/04/2020 14:50:37 Abnormal uterine bleeding 4788991800 9100 N93.9 this patient is a 25-year-ol [...] ovulation [place]. [address] Peter Bryant [facility] [address],[place] [address] 08/19/2020 13:46:09 08/19/2020 15:50:34 Trying to conceive 099122787 Z31.9 [address] [place] [address] [address] 09/02/2020 11:05:51 09/02/2020 12:44:09 Female infertility 3045168 N97.9 45294 Peter Bryant [facility] [address],[place] [address] 09/04/2020 08:09:36 09/04/2020 09:29:50 Artificial insemination 38857970 Z31.83 36310 Kenyetta Solano [place] [address] [address] 09/03/2020 18:20:49 09/03/2020 22:54:04 Trying to conceive 433942877 Z31.9 98204 [place] [address] [address] 09/09/2020 17:51:09 09/09/2020 18:07:37 Pain in pelvis 07104774 R10.2 This patient is a 25-year-ol d [...] informed consent process. To check fallopian tubes. [address] [facility] [address],[place] [address] 09/22/2020 16:45:48 09/22/2020 17:17:04 Pain in pelvis 35133192 R10.2 This patient is a 25-year-ol d [...] informed consent process. To check fallopian tubes. [address] [facility] [address],[place] [address] 10/01/2020 14:59:50 10/01/2020 15:16:34 Female infertility 9292799 N97.9 79033 Kenyetta Rocatz [place] [address] [address] [address] 1 10/01/2020 16:21:54 10/01/2020 16:27:38 Trying to conceive [id number] Z31.9 [id number] [facility] [address] [address] 1 10/02/2020 08:19:49 10/02/2020 09:46:38 Artificial insemination [id number] Z31.83 [id number] Arlet Florez [place] [address] [address] 1 10/14/2020 15:52:51 10/14/2020 16:51:20 Pain in pelvis 57629869 R10.2 This patient is a 25-year-ol d [...] informed consent process. To check fallopian tubes. [id number] Peter Bryant CNM [place] [address] [address] 1 10/21/2020 17:06:20 10/21/2020 17:33:05 Hypothyroidism 02615269 E03.9 check labs, will adjust meds if needed [id number] Arlet Florez [place] [address] [address] 1 11/30/2020 13:48:01 11/30/2020 13:52:51 Pain in pelvis 55516306 R10.2 This patient is a 25-year-ol d [...] informed consent process. To check fallopian tubes. [id number] Messi Garcia MD [place] [address] [address] 1 12/01/2020 14:00:56 12/01/2020 15:31:30 Pain in pelvis 15202312 R10.2 this patient is a 25-year-ol d [...] face-to-fa ce discussing this very complex topic. [id number] Peter Bryant CNM [place] [address],[place] [address] 1 01/22/2021 09:15:38 01/22/2021 10:35:42 Female infertility 9571922 N97.9 Gynecologi c examination 99982850 Z01.419 26289 [facility] [address] [place] [address] 1 02/09/2021 09:19:46 02/09/2021 10:04:48 Female infertility 1346242 N97.9 [id number] Kenyetta Solano [place] [address] [place] [address] 1 02/09/2021 14:29:50 02/09/2021 16:50:58 Trying to conceive 826446732 Z31.9 [id number] Peter Bryant [facility] [address] [place] [address] 1 02/10/2021 09:41:42 02/10/2021 10:12:15 Female infertility 6836124 N97.9 Artificial insemination 82155139 Z31.83 70503 [facility] [address] [place] [address] 1 04/28/2021 14:43:43 04/28/2021 15:19:59 Female infertility 2759734 N97.9 55930 Kenyetta Solano [place] [address] [place] [address] 1 04/28/2021 18:59:10 04/29/2021 09:31:07 Trying to conceive 159637116 Z31.9 30869 Peter Bryant [facility] [address] [place] [address] 1 04/29/2021 09:31:15 04/29/2021 10:19:12 Artificial insemination 22064062 Z31.83 16965 [facility] [address] [address] 1 05/25/2021 11:53:11 05/25/2021 16:54:31 Reduced libido 5426062 R68.82 Today we discussed trial of Wellbutrin [...] this patient s visit, including available hand supervisor sanding upon arrive, temperatur e check and being asked a series of screening questions. All staff wore face coverings during this encounter, as well as provided additional cleaning and sanitizing of all surfaces, including countertop s, pens, chairs, door handles, light switches, etc, prior to and following the patient s visit. [id number] Messi Garcia MD [place] [address] [address] 1 06/22/2021 14:38:59 06/23/2021 09:16:44 Body mass index 30+ - obesity 613632404 Z68.37 This patient is a 26-year-ol d [...] on the dietitian schedule. Gynecologi c examination 16867651 Z01.419 Abnormal u terine bleeding 6469241439 9100 N93.9 53961 Isha More [place] [address],[place] [address] 1 06/25/2021 09:04:11 06/25/2021 09:23:27 Female infertility 9225138 N97.9 [id number] Kenyetta Solano [place] [address],[place] [address] 1 06/25/2021 18:38:25 06/26/2021 09:09:27 Trying to conceive 071864942 Z31.9 [id number] [facility] [address],[place] [address] 1 06/26/2021 09:13:57 07/01/2021 15:54:18 Artificial insemination 06156473 Z31.83 [id number] [facility] [address],[place] [address] 1 07/27/2021 17:11:55 07/27/2021 18:06:16 Uncertain viability of 921590160 O36.80X0 Z3A.01 25899 Isha More [place] [address],[place] [address] 1 08/05/2021 09:17:05 08/05/2021 10:16:25 Abdominal pain in early 003195131 Z33.1 Z3A.01 49953 [facility] [address],[place] [address] 1 08/18/2021 10:17:54 08/18/2021 11:20:00 31643 [facility] [address],[place] [address] 1 08/18/2021 10:18:19 08/19/2021 12:30:57 Amenorrhea 46899455 Z31.89 Z31.83 65192 Isha More [place] [address] [address] 1 09/10/2021 14:50:18 09/10/2021 15:34:33 screening 986873816 Z36.82 86404 Pretty Cotton MD [place] [address],[place] [address] 1 09/10/2021 14:50:57 09/13/2021 15:22:01 Routine care 535255908 Z34.91 care: history of infertility 479486924 O09.[address] reptococcus carrier 3528883284 103 Z22.330 Hypothyroidism 73559210 E03.9 Maternal o besity complicating , childbirth and the puerperium, antepartum 0356079384 07 O99.211 806140 Pretty Cotton MD [place] [address],[place] [address] 1 09/27/2021 17:43:48 09/28/2021 10:23:00 Chronic hypertension complicating AND/OR reason for care during 98335378 O16.9 540025 Pretty Cotton MD [place] [address],[place] [address] 1 10/08/2021 14:49:27 10/08/2021 16:16:40 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 3885885 O16.9 care: history of infertility 009399978 O09.01 Hypothyroidism 50938353 E03.9 459334 Isha More [place] [address],[place] [address] 1 11/03/2021 16:29:49 11/03/2021 18:37:35 screening 523407779 Z36.3 Z3A.20 134930 [facility] [address] [place] [address] 1 11/03/2021 16:30:15 11/03/2021 18:37:10 Routine care 422452613 Z34.91 Anxiety 21669311 F41.9 119034 Mesis Garcia MD [place] [address],[place] [address] 1 12/03/2021 15:10:07 12/03/2021 16:20:49 Hypothyroidism 21363999 E03.9 [id number] Isha More [place] [address],[place] [address] 1 12/03/2021 15:10:54 12/03/2021 17:08:45 Placenta circumvallata 6123917 O43.112 Z36.2 Z3A.24 [id number] [facility] [address],[place] [address] 1 12/29/2021 15:21:10 12/29/2021 16:01:38 Placenta circumvallata 9750281 O43.113 O10.013 O99.213 Z3A.28 [id number] [facility] [address],[place] [address] 1 12/29/2021 15:22:44 12/29/2021 17:01:50 Routine care 117537112 Z34.91 - induced hypertension 09870445 O13.9 532856 [facility] [address],[place] [address] 1 01/13/2022 13:47:29 01/13/2022 14:39:17 Medical examination for suspected condition 370242184 Z03.79 [id number] Messi Garcia MD [place] [address],[place] [address] 1 01/13/2022 13:47:50 01/13/2022 15:53:18 Routine care 018177998 Z34.83 169123 Marie Lewis [place] [address],[place] [address] 1 01/17/2022 16:24:29 01/17/2022 18:16:59 Threatened premature labor - not delivered 986733025 O47.9 [id number] Pretty Cotton MD [place] [address],[place] [address] 1 01/17/2022 16:35:15 01/19/2022 15:28:55 Threatened premature labor - not delivered 230364350 O47.9 [id number] [facility] [address],[place] [address] 1 01/26/2022 14:52:57 01/26/2022 15:27:45 Chronic hypertension complicating AND/OR reason for care during 61716842 O16.9 [id number] [facility] [address],[place] [address] 1 01/26/2022 14:54:57 01/26/2022 16:22:26 Placenta circumvallata 4527938 O43.113 Z3A.32 O10.013 [id number] [facility] [address],[place] [address] 1 01/26/2022 14:55:32 01/26/2022 16:39:21 Routine care 861296154 Z34.91 [id number] [facility] [address],[place] [address] 1 02/02/2022 16:59:59 02/02/2022 17:58:36 Maternal obesity complicating , childbirth and the puerperium, antepartum 6687178439 07 O99.213 [id number] [facility] [address],[place] [address] 1 02/02/2022 17:00:19 02/02/2022 18:17:03 Chronic hypertension complicating AND/OR reason for care during 39592436 O10.013 Z3A.33 [id number] Peter Bryant CNM [place] [address],[place] [address] 1 02/02/2022 17:00:45 02/02/2022 18:50:24 Routine care 922799604 Z34.91 [id number] [facility] [address] [address] 1 02/09/2022 16:53:15 02/09/2022 17:49:24 Maternal obesity complicating , childbirth and the puerperium, antepartum 0791226256 07 O99.213 [id number] [facility] [address],[place] [address] 1 02/09/2022 16:53:36 02/09/2022 18:15:36 Chronic hypertension complicating AND/OR reason for care during 95068199 O10.013 O99.213 Z3A.34 [id number] Peter Bryant [facility] [address],[place] [address] 1 02/09/2022 16:54:04 02/09/2022 18:25:27 Routine care 119032910 Z34.91 [id number] [facility] [address],[place] [address] 1 02/16/2022 17:00:10 02/16/2022 17:56:48 Chronic hypertension complicating AND/OR reason for care during 25976318 O10.013 O99.213 Z3A.34 [id number] [facility] [address],[place] [address] 1 02/16/2022 17:00:39 02/16/2022 18:07:43 Chronic hypertension complicating AND/OR reason for care during 77295638 O10.013 Z3A.35 O99.213 [id number] Peter Bryant [facility] [address],[place] [address] 1 02/16/2022 17:01:03 02/16/2022 18:20:17 Routine care 400856680 Z34.91 [id number] [facility] [address],[place] [address] 1 02/18/2022 15:23:24 02/18/2022 15:53:12 Reduced movement 427780661 O36.8199 [id number] Peter Bryant CNM [place] [address],[place] [address] 1 02/23/2022 16:45:10 02/23/2022 18:18:35 Routine care 097154309 Z34.91 Large for gestation age fetus 043704161 O36.63X0 245504 Loretta Casiano ier [place] [address],[place] [address] 1 02/23/2022 16:42:55 02/23/2022 17:12:22 Chronic hypertension complicating AND/OR reason for care during 06433097 O10.013 Z3A.35 O99.213 972272 [place] [address] [address] 1 02/23/2022 16:43:28 02/23/2022 17:56:35 Chronic hypertension complicating AND/OR reason for care during 63880851 O10.013 O99.213 Z3A.36 [id number] Pretty Cotton MD [place] [address] [address] 03/16/2022 14:15:55 03/17/2022 16:13:50 Pain in pelvis 30905668 R10.2 [id number] [place] [address] [address] 1 03/17/2022 13:34:56 03/17/2022 14:02:57 Pain in pelvis 33443027 R10.2 this patient is a 25-year-ol d [...] face-to-fa ce discussing this very complex topic. [id number] Messi Garcia MD [place] [address],[place] [address] 1 03/17/2022 13:35:31 03/18/2022 13:49:15 Pain in pelvis 98773406 R10.2 patient is a 27-year-ol d female [...] We spent over 20 minutes face-to-fa ce. 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 [address],[place] [address] 1 08/16/2023 11:38:58 08/16/2023 13:55:15 Pain in pelvis 79730806 R10.2 also start pelvic floor pT Gynecologi c examination 27194855 Z01.[id number] [facility] [address],[place] [address] 1 08/22/2023 11:28:17 08/22/2023 12:06:29 Pain in pelvis 70793194 R10.2 patient is a 27-year-ol d female [...] We spent over 20 minutes face-to-fa ce. [id number] Bita [facility] [address],[place] [address] 1 04/23/2024 09:16:05 04/23/2024 10:09:58 screening 027644882 Z36.87 O30.[address] Z3A.[id number] [facility] [address],[place] [address] 1 05/10/2024 15:16:46 05/10/2024 16:01:31 [id number] [facility] [address],[place] [address] 1 05/10/2024 15:17:03 05/10/2024 16:51:44 Amenorrhea 42310522 Z31.89 Z31.83 Dichorioni c diamniotic twin 198050881 O30.049 reviewed US plan us at 12 weeksnipt at 10 weeks with labsawait pap until pp visitrevie wed precaution s and educationh x preeclamps ia without severe features last [id number] [facility] [address] [address] 1 05/21/2024 11:09:17 05/21/2024 12:05:12 Threatened miscarriage 63829100 O20.0 O30.041 Z3A.09 [id number] [facility] [address],[place] [address] 1 05/23/2024 17:26:08 05/24/2024 10:31:39 Threatened miscarriage 11990543 O20.0 O30.041 Z3A.09 [id number] Messi Garcia MD [place] [address],[place] [address] 1 05/23/2024 18:31:17 05/24/2024 10:33:13 Pain in pelvis 67808200 R10.2 this patient is a 29-year-ol d [...] is to contact us if pain worsens. [id number] [facility] [address] [address] 1 05/29/2024 10:21:34 05/29/2024 11:12:31 condition affecting obstetrical care of mother 569704045 O36.8910 Z3A.10 [id number] [facility] [address],[place] [address] 1 06/03/2024 16:41:37 06/04/2024 14:32:45 screening 181776236 Z36.82 Z3A.11 616098 [facility] [address] [address] 1 06/05/2024 14:45:02 06/06/2024 16:44:18 Nausea and vomiting 37392604 R11.2 Migraine 04242418 G43.90 9 Routine an tenatal care 073412964 Z34.91 Twin 22459947 O30.009 [id number] [facility] [address],[place] [address] 1 06/12/2024 17:23:11 06/12/2024 18:08:31 Medical examination for suspected condition 430075253 Z03.72 Z3A.12 [id number] [facility] [address],[place] [address] 1 07/01/2024 16:17:41 07/01/2024 17:36:13 Dichorionic diamniotic twin 354475329 O30.042 Z3A.15 [id number] [facility] [address] [address] 1 07/03/2024 09:17:02 07/03/2024 09:55:31 Gestation period, 15 weeks 5508715 Z3A.15 802308 ALEC WILKINSON MD [place] [address],[place] [address] 1 07/08/2024 10:41:29 07/08/2024 11:38:56 Pruritic rash 05798746 L28.2 Dichorioni c diamniotic twin 700418427 O30.049 Chronic hy pertension complicating AND/OR reason for care during 42845527 O16.9 Gestation period, 16 weeks 48536694 Z3A.16 [id number] Bita Dennis [place] [address],[place] [address] 1 07/12/2024 10:38:28 07/12/2024 11:50:01 [id number] Peter Bryant CNM [place] [address],[place] [address] 1 07/31/2024 16:35:21 08/01/2024 09:45:58 Gestation period, 19 weeks 75334308 Z3A.19 Dichorioni c diamniotic twin 945609951 O30.049 Gastroesop hageal reflux disease 595739721 K21.9 [id number] [facility] [address] [address] 1 08/09/2024 12:12:22 08/09/2024 14:11:25 Pain in pelvis 15226537 R10.2 start [id number] [address],[facility] [place] [address] 1 08/22/2024 12:06:07 08/22/2024 13:36:01 Dichorionic diamniotic twin 389133784 O30.042 O36.8120 Z3A.23 Health Concerns Section Related Observation LastModified by Organization Detai ls LastModified Time None Recorded Concern Status LastModified by Organization Details LastModified Time None Recorded Advance Directives Directive N: Payers Encounter Date Sequence Insurance Name Policy Number Policy Steele Covered Member ID Steele Member ID Guarantor Name 07/08/2024 1 [facility] [id number] Luis Antonio Mo [id number] Yessica Mo 07/12/2024 1 [facility] [id number] Luis Antonio Mo [id number] Yessica Mo 07/31/2024 1 [facility] [id number] Luis Antonio Mo [id number] Yessica Jallohzine 08/09/2024 1 [facility] [id number] Luis Antonio Mo [id number] Yessica Jallohzine 08/22/2024 1 [facility] [id number] Luis Antonio Mo [id number] Yessica Mo OBGyn Episode Ob Episode Information Episode Created Date Number of Fetuses Patient Bloodtype Patient rh Status Prepregnancy Weight lbs Domestic Partner Domestic Partner Phone Father Name Breakfast Attendant Status 12/25/19 20 1 CLOSED Fetus Data [...] Domestic Partner Domestic Partner Phone Father Name Breakfast Attendant Status 12/25/19 20 1 CLOSED Fetus Data [...] Domestic Partner Domestic Partner Phone Father Name Breakfast Attendant Status 09/11/19 22 1 A Positive 221 CLOSED Fetus Data First Name Last Name Admitted to NICU Weight (g) Sex Living Outcome Pediatric Complications Fetus ID Race Codes Race Delivery Type 4224.07 55 M true Full Term [id number] Vaginal Delivery Problems Problem Notes TSH WNL/A+/Ha1c/CBC WNL Problem Name Start Date End Date Resolution Snomed Code Not e Hypothyroidism 51637355 care: history of infertility 196591899 Group B Streptococcus carrier 8608361869063 bacteriuria Maternal obesity complicating , childbirth and the puerperium, antepartum 244466928827 BMI 39- ante testing at 37w 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 5286285 maia ellsworth , baseline labs, ASA Placenta circumvallata 9657824 Serial growth u/s Pre-eclampsia 458678219 Darren Calculation Initial Darren Date Initial Exam [...] Date Ultra Sound Latest Days Gestation 0 [email or web address] 09/13/2021 03/23/20 22 0 Pre- Flowsheet Flowsheet Date 09/10/2021 Mckinney Score Blood Edema Fundus Height Fundus Units Glucose Ketones Leukocytes Nitrite Labor Signs Protein Cervic Dilation Cervic Effacement Cervic Station neg none Type Weight in lbs Pre/Post Dialysis Refused Weight 225.615106905611 BP Diastolic BP Location Tested BP Systolic [...] Weight in lbs Pre/Post Dialysis Refused Weight 226.261923330316 BP Diastolic BP Location Tested BP Systolic [...] Weight in lbs Pre/Post Dialysis Refused Weight 224.855885745293 BP Diastolic BP Location Tested BP Systolic BP Type 77 118 Fetus Heart Rate Present A 135 Fetus Movement A No Comments Doing ok except had ROSALIND Winter y, BP was fine, went away overnight. 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 bpp 8/8, rec chiropractor, ptl precautions f/u next week [...] Weight in lbs Pre/Post Dialysis Refused Weight 242.875709754441 BP Diastolic BP Location Tested BP Systolic BP Type 77 122 Fetus Heart Rate Present Fetus Movement A Yes Comments patient states that having l eft leg numbness, pain, contractions, dizziness and swelling. bpp 8/8 reviewed precautions increase rest, kick counts, growth [...] Weight in lbs Pre/Post Dialysis Refused Weight 246.421929877118 BP Diastolic BP Location Tested BP Systolic [...] Weight in lbs Pre/Post Dialysis Refused Weight 246.009366546573 BP Diastolic BP Location Tested BP Systolic [...] Weight in lbs Pre/Post Dialysis Refused Weight 211.050158129253 BP Diastolic BP Location Tested BP Systolic [...] Weight in lbs Pre/Post Dialysis Refused Weight 211.452995495568 BP Diastolic BP Location Tested BP Systolic BP Type 86 L arm 126 sitting Fetus Heart Rate Present Fetus Movement Comments Flowsheet Date 04/08/2022 Mckinney Score Blood Edema Fundus Height Fundus Units Glucose Ketones Leukocytes Nitrite Labor Signs Protein Cervic Dilation Cervic Effacement Cervic Station Type Weight in lbs Pre/Post Dialysis Refused Weight 212.34876852794 BP Diastolic BP Location Tested BP Systolic BP Type 84 134 Fetus Heart Rate Present Fetus Movement Comments Flowsheet Date 05/27/2022 Mckinney Score Blood Edema Fundus Height Fundus Units Glucose Ketones Leukocytes Nitrite Labor Signs Protein Cervic Dilation Cervic Effacement Cervic Station Type Weight in lbs Pre/Post Dialysis Refused Weight 221.488046404970 BP Diastolic BP Location Tested BP Systolic [...] Estim ated Date of Delivery false Thalassemia (Montenegrin, Ukrainian, Mediterranean, Or Background): MCV < 80 false Neural Tube Defect (Meningomyelocele, Spina Bifi da, Or Anencephaly) false Congenital Heart Defect false Down Syndrome false Curt-Sachs (eg, [place], Cajun, [place]) f alse Yung Disease false Sickle Cell Disease Or Trait () false Hemophilia Or Other Blood Disorders false Muscular Dystrophy false Cystic Fibrosis false Boone's Chorea false Intellectual Disability/Autism false If Yes, [...] d Regional-Ep idural 37 false Peter Bryant NILSONKezia Maternal obesity, Gbs+ and pre eclampsia w/o severe features Discharge Information Feeding Method Contraceptive Method Maternal HG B and HCT Levels Breast Ob Episode Information Episode Created Date Number of Fetuses Patient Bloodtype Patient rh Status Prepregnancy Weight lbs Domestic Partner Domestic Partner Phone Father Name Breakfast Attendant Status 06/05/19 25 2 A Positive 198 Gabriel Mo OPEN Fetus Data First Name Last Name Admitted to NICU Weight (g) Sex Living Outcome Pediatric Complications Fetus ID Race Codes Race Delivery Type [id number] Problems Problem Notes Anatomy with MFM - 07/31/24 1 300 [facility] U/S & OV [facility] 08/27/24 US only 1:00PM Problem Name Start Date End Date Resolution Snomed Code Not e care: history of infertility 903961170 Past history of shoulder dystocia 882629487 Large for gestation age fetus 497945090 less then 30 se c shoulder dystocia Past history of pre-eclampsia 951244821713711 bASA x2 Migraine 44613441 magnesium, Excedrin tension, sumatriptan 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 7183733 Palpitations [id number] Holter monitor faxed to [facility] 07/29 Twin [id number] 38 wk deliveryantenatal testing @ 32wks per [facility] Scheduled rpt 08/27 us ONLY Darren Calculation Initial Darren Date Initial Exam Date Initial Exam Provider Initial Ultrasound Date Last Menstrual Period Date Ultra Sound Weeks Gestation 12/19/2024 04/23/2024 peter bryant 04/23/2024 5 Eighteen To Twenty Week Darren [...] Weight in lbs Pre/Post Dialysis Refused Weight 207.469865772560 BP Diastolic BP Location Tested BP Systolic [...] disability paperwork. will plan on referral to [facility] for anatomy and history of HTN/preeclampsia, twin [...] Type Weight in lbs Pre/Post Dialysis Refused 214.999678250891 BP Diastolic BP Location Tested BP Systolic [...] Weight in lbs Pre/Post Dialysis Refused Weight 216.410891505176 BP Diastolic BP Location Tested BP Systolic [...] No bleeding. Will send for anatomy at [facility] [facility] Will measure for belly band today due [...] Type Weight in lbs Pre/Post Dialysis Refused [id number] BP Diastolic BP Location Tested BP Systolic BP Type 92 152 53 114 Fetus Heart Rate Present Fetus Movement A Yes B Yes Comments Patient is having headaches, pain, contractions, swelling, Had elevated heart rate over the weekend and get heart moniter on , 08/08/24. saw MFM this morning rec 2 bASA, will rpt anatomy in 4 weeks, precautions and education f/u 4 weeks Flowsheet Date 08/09/2024 Mckinney Score Blood Edema Fundus Height Fundus Units Glucose Ketones Leukocytes Nitrite Labor Signs Protein Cervic Dilation Cervic Effacement Cervic Station neg none none neg Type Weight in lbs Pre/Post Dialysis Refused [id number] BP Diastolic BP Location Tested BP Systolic BP Type 70 119 Fetus Heart Rate Present A 145 B 147 Fetus Movement A Yes B Yes Comments Patient is having contractio ns. shortness of breathe, pressure and pain in pelvic area, and right leg numbness. discussed PT, low activity, +FM, has f/u with mfm, reviewed ED records Flowsheet Date 08/22/2024 Mckinney Score Blood Edema Fundus Height Fundus [...]
--- OUTSIDE RECORDS SUMMARY | 2024-08-27 01:12 | XMS_ITS | Continuity of Care Document ---
Author Organization [facility] Address [address] [place] [address] [place] [address] Phone Care Team Providers Care Property Management Supervisor Name Role Phone Robby Torres MD [...] Diagnoses Date Provider Providers Copied on Encounter [facility], [address] [facility] [place] [address], [place] tel:[phone] [facility] No Information 1 Brian Bustamante. [address], [address], [place], [place], [address] , [place]. tel:[phone] [facility], [address], [place], [place], [address], [place] tel:[phone] [facility] No Information 0 Brian Bustamante. [address], [address], [place], [place], [address] , [place]. tel:[phone] OFFICE/OUTPA TIENT VISIT, [facility], [address], [place], [place], [address], [place] tel:[phone] [facility] anxiety1 (chief complaint) Generalized Anxiety DisorderHypothyroid ism 0 Brian Bustamante. [address], [address], [place], [place], [address] , [place]. tel:[phone] Referring Provider: Robby Torres [address], [place], [place], [address]. tel:[phone] OFFICE/OUTPA TIENT VISIT, [facility], [address], [place], [place], [address], [place] tel:[phone] [facility] anxiety1 (chief complaint) Generalized Anxiety DisorderGoiter 0 Brian Bustamante. [address], [place], [place], [address] , [place]. tel:[phone] Referring Provider: Robby Torres [address], [place], [place], [address]. tel:[phone] OFFICE/OUTPA TIENT VISIT, [facility], [address], [place], [place], [address], [place] tel:[phone] [facility] thyroid nodule1 (chief complaint) anxiety1 (chief complaint) GoiterGeneralized Anxiety Disorder 0 Brian Menendez [address], [place], [place], [address] , [place]. tel:[phone] Referring Provider: Gissel Banks [address], [place], [place], [address]. tel:[phone] OFFICE/OUTPA TIENT VISIT, [facility], [address], [place], [place], [address], [place] tel:[phone] [facility] anxiety1 (chief complaint) iron1 (chief complaint) thyroid1 (chief complaint) Disorder of iron metabolism, unspecifiedGoiterGe neralized Anxiety Disorder Lonnie-0 0 Brian Bustamante. [address], [place], [place], [address] , [place]. [phone] Referring Provider: Gissle Banks [address], [place], [place], [address]. tel:[phone] OFFICE/OUTPA TIENT VISIT, [facility], [address], [place], [place], [address], [place] tel:[phone] [facility] ankle pain1 (chief complaint) fatigue1 (chief complaint) thyroid1 (chief complaint) anemia1 (chief complaint) Pain in right ankleFatigueAnemiaG oiter 0 Brian Bustamante. [address], [place], [address] , [place]. tel:[phone] Referring Provider: Gissel Banks [address], [place], [place], [address]. tel:[phone] OFFICE/OUTPA TIENT VISIT, [facility], [address], [place], [address], [place] tel:[phone] [facility] rash1 (chief complaint) Allergic contact dermatitis due to plants, except food Aug- 0 Brian Bustamante. [address], [address], [place], [place], [address] , [place]. [phone] Referring Provider: Gissel Banks [address], [place], [place], [address]. tel:[phone] OFFICE/OUTPA TIENT VISIT, [facility], [address], [place], [place], [address], tel:[phone] [facility] Medicine thyroid1 (chief complaint) ferritin1 (chief complaint) IgA (chief complaint) fatigue1 (chief complaint) GoiterDisorder of iron metabolism, unspecifiedVitamin D deficiency, unspecifiedRaised level of immunoglobulinAnemi aH. pylori as the cause of diseases classified elsewhereFatigue 0 Brian Bustamante. [address] [facility] [place], [address] , . tel:[phone] Referring Provider: Gissel Banks [place], [place], [address]. tel:[phone] PREV VISIT, NEW, AGE 18-39 [facility], [address] [place] [address] Ginger.[place]ou[place], [place], [address], tel:[phone] [facility] PHysical (chief complaint) Encntr for general adult medical exam w/o abnormal findings 0 Brian Bustamante. [address], [facility] [address], [place], [place], [address] , [place]. tel:[phone] Referring Provider: Robby Torres [address] [place] [address], [id number]. tel:[phone] Family History Family Member Type Diagnosis Age [...] BIOPSY ordered Referral Referred To: Joe Fontana [address] [facility]
[address] [place], [place] [address] Ordered: Referrals: Allopathic & Osteopathic Physicians : [...] Pt denies any headache or chest pain thyroid1 Pt has mild thyr omegaly with [...] also feels short tempered with irritability also. ankle pain1 Pt was at [facility] round and she stepped on gravel which [...] or swelling . 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
[2024-08-27 03:54] LABS: Add Urine Microscopic? YES; Appearance Urine Clear (Clear); Bacteria Urine Rare /hpf; Bilirubin Urine Negative (Negative); Blood Urine 2+ (Negative); Color Urine Yellow (Yellow); Glucose Urine UA Negative (Negative); Ketones Urine Negative (Negative); Leukocyte Esterase Ur Negative LEU/UL (Negative); Need Manual Microscopic Reviewed; Nitrate Urine Negative (Negative); Non Pathogenic Casts 0-2; Protein Urine Negative (Negative); RBC Urine >100 /hpf (0-2); Specific Grav Ur 1.014 (1.001-1.035); Squamous Epithelial Cell Urine Occasional /hpf (Few); WBC Urine 0-5 /hpf (0-3); pH Urine 6.5 (5.0-9.0)
--- NOTE | 2024-08-28 09:47 | P.PNOB_ITS ---
OB - Triage/Final Diagnosis Visit Information Date of evaluation: 08/27/24 Reason for evaluation: other (pelvic pain) Comments/Additional reasons for admission: I have assessed the risk for this patient, Yessica Mo, and determined that she would benefit from observation care. Evaluation Laboratory results: Laboratory Tests 08/26/24 22:45 Urine Color Yellow Urine Appearance Clear Urine pH 6.5 Ur Specific [place] 1.014 Urine Protein Negative Urine Glucose (UA) Negative Urine Ketones Negative Ur Blood (Man) 2+ H Urine Nitrate Negative Urine Bilirubin Negative Urine Urobilinogen 1.0 Add Ur Microanalysis Reviewed Leukocyte Esterase Rfl Negative Urine RBC >100 H Urine WBC 0-5 Ur Squamous Epith Cells Occasional Urine Bacteria Rare Urine Casts 0-2
== END 2024-08-27 | disposition home or self-care (01) ==
PROVIDERS: Admitting Provider Obstetrics & Gynecology; PCP Advanced Practice Midwife; Visit Provider Obstetrics & Gynecology
DX: O26.892 Other specified pregnancy related conditions, second trimester (principal); R10.2 Pelvic and perineal pain; Z3A.23 23 weeks gestation of pregnancy
CPT/HCPCS: 81001; G0378; G0379

== ENCOUNTER 2024-08-27 12:19 | Outpatient (CLI) | payer OTHER, SELFPAY ==
--- NOTE | ~2024-08-27 | US_ITS ---
US renal BI Ordering provider: Cindi Bryant CNM History: . hematuria unspecified . Comparison: None. Technique: Ultrasound bilateral kidneys. Findings: RIGHT KIDNEY: Measures 12.6x 5.7x 7.7 cm in length which is normal in size. No renal cysts. No renal mass or visualized echogenic stones. Otherwise, normal echotexture and contour. No hydronephrosis. No rmal renal cortical thickness. LEFT KIDNEY: Measures 12.2x 5.9x 5.6 cm in length which is normal in size. No renal cysts. No renal m ass or visualized echogenic stones. Otherwise, normal echotexture and contour. No hydronephrosis. Nor mal renal cortical thickness. BLADDER: Normal. Ureteral jets were seen bilaterally. IMPRESSION: Normal study. Reviewed, dictated and finalized at location A. IMPRESSION: Normal study.
--- OUTSIDE RECORDS SUMMARY | 2024-08-27 14:00 | XMS_ITS | Clinical Summary ---
Author Organization [facility] Address [address] [facility], [address] [address] Phone Care Team Providers Care Data Collection Technician Name Role Phone Manda Singh MD Unavailable [phone] Malik Cates MD Unavailable Ulices Marino [...] Transcribe Orders [facility] [address] [place] [address] Provider, Not On File Low back pain, [...] 97.5 kg (215 lb) 04/19/2023 8:07 AM COOKER PROCESS CHEESE Height 165.1 cm (5' 5 ) 04/19/2023 8:07 AM COOKER PROCESS CHEESE Body Mass Index 35.78 04/19/2023 8:07 AM COOKER PROCESS CHEESE Plan of Treatment Upcoming Encounters Date Type Department Care Team (Late st Contact Info) Description 09/26/2024 1:00 PM CDT Office Visit [facility] - [facility] [address] [place] [address] Georgina Fontenot, SOFTWARE DEVELOPMENT MANAGER, SEAL DELIVERY VEHICLE OFFICER [address] [place] [address] Health Maintenance Due Date Last Done Comments [...] this topic Medical Devices Implanted Type Area Professor Of Theatre Device Identifier Shelf Expiration Date Model / Serial / Lot Tube Ventilation 5mm Carey Triune - [id number] Implanted:Qty: 1 on 11/05/2018 by Jordon Deng MD at [facility] IMPLANT Left: Ear [employer] 04/06/2020 510-122 / 510-122 / [id number] Description:Ear tubes came f rom the same package Tube Ventilation 5mm Carey Triune - [id number] Implanted:Qty: 1 on 11/05/2018 by Jordon Deng MD at [facility] IMPLANT Right: Ear [employer] 04/06/2020 510-122 / 510-122 / [id number] Description:Ear tubes came f rom the [place] [address] * Guarantor: [facility] Account Type Relation to Patient Date of Phone Billing Address Institutional Other [address] [place] [address] Care Teams Data Collection Technician Relationship Specialty Start Date End Date Yon Gutierrez MD 2 [facility] [address] [place] [address] PCP - General Family Medicine 06/23/23 Manda Singh MD Obstetrics & Gynecology 02/11/20 Malik Cates MD #[address] [phone] Consulting Physician Endocrinology 12/13/21 Ulices Marino MD #[address] [address] Consulting Physician Colon and Rectal Surgery 07/06/22
--- OUTSIDE RECORDS SUMMARY | 2024-08-27 14:00 | XMS_ITS | Encounter Summary ---
Author Organization [facility] Address [address] [place] [address] Phone Care Team Providers Care Forensic Scientist Name Role Phone Manda Singh MD Unavailable [phone] Robby Torres Primary Care Provider [phone] Scooter White DO Primary Care Provider Malik Cates MD Unavailable Ulices Marino MD Unavailable Yon Gutierrez MD Primary Care Provider Encounter Details Date Type Department Care Team (Late st Contact Info) Description 04/09/2020 Telephone [facility] [address] [address] [address] Saud Dalton MD [address] [place] [phone] Social History Tobacco Use Types Packs/Day [...] COVID-19? No / Unsure 03/20/2020 6:06 AM PRODUCTION LAPPING MACHINE OPERATOR documented as of this encounter Miscellaneous Notes * Telephone Encounter - Mahnaz Alaniz - 04/09/2020 2:50 PM CST Patient no showed her appointment, left voice message to call the office to reschedule. Sent out a no show letter. UCTION LAPPING MACHINE OPERATOR documented in this encounter Plan of Treatment Upcoming Encounters Date Type Department Care Team (Late st Contact Info) Description 09/26/2024 1:00 PM CDT [facility] [address] [place] [address] Georgina Fontenot APRN, CUSTOMER SERVICE REPRESENTATIVE TEACHER [address] [place] [address] documented as of this encounter Visit Diagnoses Not on filedocumented in this encounter Additional Health Concerns Assessment Noted Time PHQ-9 Depression Total Score: 0 02/11/20 20 12:57 PM CDT documented as of this encounter Care Teams Forensic Scientist Relationship Specialty Start Date End Date Robby Torres [address] [place] [address] PCP - General Family Medicine 02/11/20 03/16/21 Scooter White DO [employer] [address] PCP - General Internal Medicine 03/17/21 06/22/23 Yon Gutierrez MD 2 [facility] [address] [place] [address] PCP - General Family Medicine 06/23/23 Manda Singh MD Obstetrics & Gynecology 02/11/20 Malik Cates MD [address] [address] Consulting Physician Endocrinology 12/13/21 Ulices Marino MD #[address] [address] Consulting Physician Colon and Rectal Surgery 07/06/22 documented as of this encounter
--- OUTSIDE RECORDS SUMMARY | 2024-08-27 14:00 | XMS_ITS | Encounter Summary ---
Author Organization [facility] Address [address] [place] [address] Phone Care Team Providers Care Actuarial Mathematician Name Role Phone Manda Singh MD Unavailable [phone] Robby Torres Primary Care Provider [phone] Scooter White DO Primary Care Provider Malik Cates MD Unavailable Ulices Marino MD Unavailable Yon Gutierrez MD Primary Care Provider Encounter Details Date Type Department Care Team (Late st Contact Info) Description 03/09/2020 Transcribe Orders [facility] Preop/Pacu II [address] [place] [id number] Walter Blake MD [address] [place] [address] Preop testing (Primary Dx) Social History Tobacco [...] COVID-19? Unable to assess 03/10/2020 1:32 PM JAILER/TRAINING OFFICER documented as of this encounter Plan of Treatment Upcoming Encounters Date Type Department Care Team (Late st Contact Info) Description 09/26/2024 1:00 PM CDT Office Visit [facility] - [place] #[address] [place] [address] Georgina Fontenot APRN, PARTICIPANT ADMINISTRATOR [address] [place] [address] documented as of this encounter Visit Diagnoses Diagnosis Preop testing- Primary Preoperative examination, unspecified documented in this encounter Additional Health Concerns Infection Onset Date Last Indicated Resolved Time COVID - 19 03/10/2020 03/10/2020 03/16/2020 11:4 0 AM JAILER/TRAINING OFFICER Assessment Noted Time PHQ-9 Depression Total Score: 0 02/11/20 20 12:57 PM CDT documented as of this encounter Care Teams Actuarial Mathematician Relationship Specialty Start Date End Date Robby Torres [address] [place] [address] PCP - General Family Medicine 02/11/20 03/16/21 Scooter White DO [address] [facility] [place] [address] PCP - General Internal Medicine 03/17/21 06/22/23 Yon Gutierrez MD 2 [facility] [place] [address] PCP - General Family Medicine 06/23/23 Manda Singh MD Obstetrics & Gynecology 02/11/20 Malik Cates MD #[address] [address] Consulting Physician Endocrinology 12/13/21 Ulices Marino MD #[address] [address] Consulting Physician Colon and Rectal Surgery 07/06/22 documented as of this encounter
--- OUTSIDE RECORDS SUMMARY | 2024-08-27 14:00 | XMS_ITS | Clinical Summary ---
Author Organization [facility] [employer] Address [address] [place] [address] Care Team Providers Care Perch Mender Name Role Phone Scooter White DO Primary Care Provider [phone] Source Comments [facility],non-owned Affiliates and Associated Physician Practices is amultiple site organization consisting of ambulatory clinics and hospital sitesin [place], [place], [place]. This disclosure is being madepursuant to the Care Everywhere program and may not contain all information available regarding this patient. Last updated 18.[facility] [employer] Allergies Active Allergy Reactions Criticality Noted Date [...] Date Type Department Care Team Description 08/27/2024 12:58 PM CDT Hospital Encounter [facility] [address] [place] [address] Christiano Tristan MD 07/31/2024 12:59 PM CDT - 07/31/2024 11:59 PM CDT Hospital Encounter [facility] [address] [place] [address] Katina Ewing MD Discharge Disposition: Home or Self Care 07/31/2024 12:59 PM CDT - 07/31/2024 11:59 PM CDT Hospital Encounter [facility] [address] [place] [address] Katina Ewing MD Discharge Disposition: Home or [...] on file Legal Sex Female 1:08 PM DENTISTRY PROFESSOR Gender Identity Not on file Sexual Orientation [...] Care Team (Late st Contact Info) Description 09/24/2024 1:00 PM CDT Appointment [facility] [address] [place], [place] [phone] Health Maintenance Due Date Last Done Comments [...] History ====== OB History 4. Para 3 [id number] 1. live 2011. Gest. age 39 w [...] 0 lb 13 oz EFW by Hadlock ([id number]) EFW discordance 6.6 % accelerated Fetus B: [...] 0 lb 13 oz EFW by Hadlock ([id number]) EFW discordance 6.6 % appropriate Fetus A: [...] view. RVOT view. LVOT view. 3-vessel view. 9-dxkzrq-bxhmcza view. Aortic arch view. Bicaval view. Great [...] Thorax 4-chamber view. LVOT view. 3-vessel view. 1-zsgnvv-vovfcbu view. Aortic arch view. Bicaval view. Interventricular [...] your patient in consultation. Coding ====== Procedures 68016: [place] Preg Uterus Detailed 06202: US Preg Uterus Detailed, Additional Gest 29725: US Preg Uterus Transvaginal T [facility] [employer] PACS Anatomical Region Laterality Modality Other 07/31/2024 12:5 5 PM CDT Cindi Bryant APRN-[employer] SP[employer]ISH TEACHER [facility] ORDERABLES Edited Result - Final from Last 3 Months Insurance Care Teams Perch Mender Relationship Specialty Start Date End Date Scooter White DO PCP - General 03/16/22
--- OUTSIDE RECORDS SUMMARY | 2024-08-27 14:00 | XMS_ITS | Encounter Summary ---
Author Organization [facility] Address [address] [place] [address] Phone Care Team Providers Care Stove Cleaner Name Role Phone Manda Singh MD Unavailable [phone] Scooter Wihte DO Primary Care Provider Malik Cates MD Unavailable Ulices Marino MD Unavailable Yon Gutierrez MD Primary Care Provider Encounter Details Date Type Department Care Team (Late st Contact Info) Description 07/26/2021 Lab Requisition [facility] [address] [place] [address] Edita Garza, AUTISTIC TEACHER, BDR [address] [place] [address] Encounter for pre-employment examination Social History Tobacco [...] 09/26/2024 1:00 PM CDT Office Visit [facility] - Neurology - [place] [address] [place] [address] Georgina Fontenot, AUTISTIC TEACHER, AOC OPERATIONS INTELLIGENCE CHIEF [address] [place] [address] documented as of this encounter Procedures Procedure [...] 2.7 >=1.1 AI 07/26/2021 10:00 PM CDT [facility] Blood No Phlebotomy Charged / Unknown 07/26/2021 9:00 AM CDT 07/26/2021 2:15 PM CDT Narrative [facility] - 07/26/2021 10:00 PM CDT <= 0.8 Negative. No detectable VZV IgG antibody. 0.9 - 1.0 Equivocal >=1.1 Positive Antibody testing was performed by multiplex flow immunoassay on the BioPlex platform. Edita Garza AUTISTIC TEACHER, BDR IMMUNOLOGY ORDERABL ES Final Result Performing Organization Address [facility] Co de Phone Number [facility] [address] [place] [address], [place] * (ABNORMAL) RUBEOLA (MEASLES) IGG (07/26/2021 9:00 AM CDT) MEASLES AB IGG 0.7(L) >=1.1 AI 07/26/2021 10:00 PM CDT [facility] Blood No Phlebotomy Charged / Unknown 07/26/2021 9:00 AM CDT 07/26/2021 2:15 PM CDT Narrative [facility] - 07/26/2021 10:00 PM CDT <= 0.8 Negative. No detectable Measles IgG antibody. 0.9 - 1.0 Equivocal >=1.1 Positive Antibody testing was performed by multiplex flow immunoassay on the BioPlex platform. us Edita L Behrends AUTISTIC TEACHER, BDR IMMUNOLOGY ORDERABL ES Final Result Performing Organization Address [facility] Co de Phone Number [facility] [address] [place] [address], [place] * RUBELLA IMMUNITY IGG (07/26/2021 9:00 AM CDT) [facility] Immune Immune, Invalid 07/26/2021 10:00 PM CDT [facility] Blood No Phlebotomy Charged / Unknown 07/26/2021 9:00 AM CDT 07/26/2021 2:15 PM CDT Narrative [facility] - 07/26/2021 10:00 PM CDT Antibody testing was performed by multiplex flow immunoassay on the BioPlex platform. us Edita L Behrenjohn AUTISTIC TEACHER, BDR CHEMISTRY ORDERABLE S Final Result Performing Organization Address [facility] de Phone Number [facility] [address] [place] [address], [place] * MUMPS IGG (07/26/2021 9:00 AM CDT) Pathologist [facility] Mumps Ab IgG 1.2 >=1.1 AI 07/26/2021 10:00 PM CDT [facility] Blood No Phlebotomy Charged / Unknown 07/26/2021 9:00 AM CDT 07/26/2021 2:15 PM CDT Narrative [facility] - 07/26/2021 10:00 PM CDT <= 0.8 Negative. No detectable Mumps IgG antibody. 0.9 - 1.0 Equivocal >=1.1 Positive Antibody testing was performed by multiplex flow immunoassay on the BioPlex platform. us Editahenry Garza AUTISTIC TEACHER, BDR IMMUNOLOGY ORDERABL ES Final Result Performing Organization Address [facility] Co de Phone Number [facility] [address] [place] [address], [place] * QUANTIFERON-TB GOLD PLUS (07/26/2021 9:00 AM CDT) Pathologist [facility] NIL CONTROL 0.04 <8.01 IU/mL 07/28/2021 1:01 PM CDT [facility] TB ANTIGEN 1 0.00 <0.35 IU/mL 07/28/2021 1:01 PM CDT [facility] TB ANTIGEN 2 0.00 <0.35 IU/mL 07/28/2021 1:01 PM CDT [facility] MITOGEN CONTROL 9.64 >0.49 IU/mL 07/29/19 1:01 PM CDT [facility] INTEPRETATION TB NEGATIVE NEGATIVE, NEGATIVE (TB antigen response less than 25% of internal negative control value) 07/28/2021 1:01 PM CDT [facility] Comment:No immune response t o Mycobacterium tuberculosis antigens was noted. M. tuberculosis infection unlikely. Blood No Phlebotomy Charged / Unknown 07/26/2021 9:00 AM CDT 07/26/2021 2:15 PM CDT Narrative [facility] - 07/28/2021 1:01 PM CDT A [...] otherwise immunocompromised individuals. https://www.cdc.gov/tb/publications/guidelines/testing.htm Edita Garza APRN, BDR IMMUNOLOGY ORDERABL ES Final Result Performing Organization Address [facility] de Phone Number [facility] [address] [place] [address], [place] * HEPATITIS B SURFACE ANTIBODY (HBSAB) (07/26/2021 9:00 AM CDT) HEPATITIS B SURFACE ANTIBODY 8.33 mIU/mL [facility] ARCH [id number] B 07/27/2021 12:02 AM CDT [facility] Comment: Grayzone Range: >=8.00 to <=12.00 The immune status of the individual should be further assessed considering other factors, such as clinical status, follow-up testing, associated risk factors and the use of additional diagnostic information. Blood No Phlebotomy Charged / Unknown 07/26/2021 9:00 AM CDT 07/26/2021 2:15 PM CDT Edita Garza APRN, BDR CHEMISTRY ORDERABLE S Final Result Performing Organization Address [facility] de Phone Number [facility] [address] [place] [address], [place] documented in this encounter Visit Diagnoses Diagnosis Encounter for pre-employment examination Health examination of defined subpopulation documented in this encounter Additional Health Concerns Assessment Noted Time PHQ-9 Depression Total Score: 0 02/11/20 20 12:57 PM CDT documented as of this encounter Care Teams Stove Cleaner Relationship Specialty Start Date End Date Scooter White DO [facility] [facility] [address] [place] [address] PCP - General Internal Medicine 03/17/21 06/22/23 Yon Gutierrez MD 2 [facility] [address] [place] [address] PCP - General Family Medicine 06/23/23 Manda Singh MD Obstetrics & Gynecology 02/11/20 Malki Cates MD #[address] [address] Consulting Physician Endocrinology 12/13/21 Ulices Marino MD #[address] [address] Consulting Physician Colon and Rectal Surgery 07/06/22 documented as of this encounter
--- OUTSIDE RECORDS SUMMARY | 2024-08-27 14:00 | XMS_ITS | Clinical Summary ---
Author Organization [facility] Address [address] [place] [address] Care Team Providers Care Paralegal Legal Secretary Name Role Phone oRbby Torres MD Unavailable [phone] Yon Gutierrez MD Primary Care Provider Malik Cates MD Unavailable Cindi Bryant STOCK CLERK SELF SERVICE STORE Unavailable [phone] Sakshi Biggs DO Unavailable [phone] Allergies Active Allergy Reactions Criticality Noted Date Comments Cephalexin Hives Medium 12/21/2023 Prednisone Hives Medium 08/09/2024 Medications aspirin 81 mg enteric coated tablet Take 1 tablet (81 mg total) by mouth daily Active vit 58-evov-aptwg-d luo 27mg iron- 800 mcg-250 mg capsule [...] one by Dr. Davila for endometriosis at [facility] - this is her second period currently, [...] possible Assessment & Plan (06/20/2023 9:50 AM CAR WASH SUPERVISOR): Hearing test, plan for bilateral myringotomy with [...] managed by endocrinology - Dr. Cates (her foot orthopedist) tried some medications without success - insurance [...] managed by endocrinology - Dr. Cates (her foot orthopedist) tried some medications without success - insurance [...] managed by endocrinology - Dr. Cates (her foot orthopedist) tried some medications without success - insurance limitations can affect it - start Phentermine, taper up dose sent - f/u in 6 weeks Assessment & Plan (05/28/2023 3:41 PM CAR WASH SUPERVISOR): Wt Readings from Last 3 Encounters: 05/26/23 [...] months Assessment & Plan (05/28/2023 3:35 PM CAR WASH SUPERVISOR): - chronic, recurrent condition, worse - in [...] disease. Assessment & Plan (05/28/2023 3:36 PM CAR WASH SUPERVISOR): - chronic, recurring condition - has history [...] Recommend thyroid ultrasound. Instructed to inform her foot orthopedist about MRI findings. US Thyroid 09/2022 IMPRESSION: [...] recommended. Assessment & Plan (05/28/2023 3:28 PM CAR WASH SUPERVISOR): Chronic condition, stable/controlled Diagnosed in 2018 Currently [...] 02/13/2019 Assessment & Plan (05/28/2023 3:38 PM CAR WASH SUPERVISOR): - recent onset - was seen recently [...] 019 Assessment & Plan (05/26/2023 8:54 AM CAR WASH SUPERVISOR): - had EGD in past and was found to have H. Pylori which was being treated - no current issues at this time Chronic gastritis 11/26/2018 Overview (05/03/2023): EGD - H pylori, GI S/P hemorrhoidectomy 11/26/2018 Conductive hearing loss, middle ear 10/18/2018 Assessment & Plan (04/03/2024 2:03 PM CAR WASH SUPERVISOR): Avoid ear cleaning techniques Avoid water to ears Hearing test today was normal, ear tubes open suspect referred ear fullness from neck or jaw Chronic serous otitis media of left ear 10/19/19 19 Assessment & Plan (04/03/2024 1:03 PM CAR WASH SUPERVISOR): Avoid ear cleaning techniques Avoid water to [...] 05/28/2023 Overview (05/03/2023): Vaginitis;Recorded Elsewhere: No Location: [facility] Source: EHR Chronic: N Practice ID: [id number] Billable Time: 10:45:00 AM TMJ (temporomandibular joint syndrome) 01/04/2019 05/28/2023 Chronic gastritis 11/26/2018 05/26/2023 Prolapsed internal hemorrhoids, grade 4 09/26/2018 05/26/2023 Overview (09/26/2018): Added automatically from request for surgery [id number] Assessment & Plan (09/26/2018 2:45 PM CDT): [...] Description 08/09/2024 8:15 AM CDT Office Visit [facility] - [address] [place] [address] Sakshi Biggs, DO Otorrhea of [...] on file Legal Sex Female 10:18 AM CAR WASH SUPERVISOR Gender Identity Not on file Sexual Orientation Not on file Obstetrics History Last Filed Vital Signs Vital Sign Reading Time Taken Comments Blood Pressure 138/88 04/06/2024 10:25 PM CAR WASH SUPERVISOR Pulse 78 04/06/2024 11:45 PM CAR WASH SUPERVISOR Temperature 36.3 C (97.4 F) 04/06/2024 10:25 PM CAR WASH SUPERVISOR Respiratory Rate 18 04/06/2024 10:25 PM CAR WASH SUPERVISOR Oxygen Saturation 100% 04/06/2024 11:45 PM CAR WASH SUPERVISOR Inhaled Oxygen Concentration - - Weight 85.7 kg (189 lb) 04/06/2024 10:25 PM CAR WASH SUPERVISOR Height 165.1 cm (5' 5 ) 04/06/2024 10:25 PM CAR WASH SUPERVISOR Body Mass Index 31.45 04/06/2024 10:25 PM CAR WASH SUPERVISOR Plan of Treatment Health Maintenance Due Date [...] this topic Medical Devices Implanted Type Area Residential Insurance Inspector Device Identifier Shelf Expiration Date Model / Serial / Lot [employer] 1.32mm 4.8mm Modify Ear T Tube Ventilation Ultrasil Sterile Blue [id number] - [id number] Implanted:Qty: 1 on 07/11/2023 by Sakshi Biggs DO at [facility] Left: Ear [employer] 01/03/2033 [id number] / / [id number] [employer] 1.32mm 4.8mm Modify Ear T Tube Ventilation Ultrasil Sterile Blue [id number] - [id number] Implanted:Qty: 1 on 07/11/2023 by Sakshi Biggs DO at [facility] Right: Ear [employer] 01/18/2033 [id number] / / [id number] Insurance [facility] H[facility]/PPO Address: [facility] [id number] [place] [phone] [facility] H[facility]/PPO Address: [address] [phone] [facility] H[facility]/PPO Address: [place] [id number] Care Teams Paralegal Legal Secretary Relationship Specialty Start Date End Date Yon Gutierrez MD [address] [facility] [address] NATALY Rowe [address] [address] PCP - General Family Medicine 04/04/23 Robby Torres MD Referring Physician Family Medicine 08/22/19 Malik Cates MD 2 [facility] [address] [place] [address] Referring Physician General Surgery 05/26/23 Cindi Bryant NP [address] [place] [address] Nurse Practitioner Obstetrics and Gynecology 05/26/23 Sakshi Biggs DO [address] [place] [address] DR INGRAM [address] [address] Consulting Physician Otolaryngology 05/26/23
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
--- OUTSIDE RECORDS SUMMARY | 2024-08-27 14:00 | XMS_ITS | Continuity of Care Document ---
Author Organization [facility] Address [address] [place] [address] [address] [place] [address] Phone Care Team Providers Care Data Engineer Name Role Phone Carol OD OD, Georgina [...] - Active Procedures Procedure Date OFFICE/OUTPATIENT VISIT, [facility] Comp cont lens eval No Charge Visit N/C Glasses Check Advance Directives Directive Yes / No Effective Date File Name No Information Encounters Encounter Description Practice Location Reason(s) For Visit Diagnoses Date Provider Providers Copied on Encounter [facility], [address] [place] [address] [address], [place], [place], [id number], tel:[phone] OPH CONSULT KENTRELL LOPEZ No Information 3 Carol OD Georgina. [address] [facility], [address], [place], [place], [id number], [place]. tel:[phone] Referring Provider: Georgina Medina OD, [address] [facility] [address], [place], [address] . tel:[phone] OFFICE/OUTPA TIENT VISIT, [facility], [address] [place] [address], [id number], tel:[phone] OPH CONSULT KENTRELL LOPEZ blurry vision (chief complaint) dry eye (chief complaint) Krystin's thyroiditisMyo roger, bilateralTear film insufficiency of bilateral lacrimal glandsOther vitreous opacities, bilateralCorne al neovasculariza tion of both eyes 2 Derheimer OD Georgina. [address], [address] [place] [address], [id number], [place]. tel:[phone] Referring Provider: Scooter White, [address], [place], [address]. tel:[phone] [facility], [address] [place] [address], [id number], tel:[phone] [facility] KENTRELL LOPEZ No Information 6 Derheimer OD Georgina. [address], [address] [place] [address], [id number], [place]. tel:[phone] Referring Provider: Georgina Medina OD, [address], [place], [address] . tel:[phone] [facility], [address] [place] [address], [id number], tel:[phone] OPH CONSULT KENTRELL LOPEZ blurry vision (chief complaint) Myopia, bilateral 6 Derheimer OD Georgina. [address], [address], [place], [place], [id number], [place]. tel:[phone] Referring Provider: Georgina Medina OD, [address], [place], [address] . tel:[phone] [facility], [address] [place] [address], [id number], tel:[phone] OPH CONSULT KENTRELL LOPEZ No Information 1 Beth Cohenl. [address], [address], [place], [place], [id number], [place]. tel:[phone] Family History Family Member Type Diagnosis Age [...] of bilateral lacrimal glands Impression/Plan Related to Crhista aldo's thyroiditis Impression/Plan Related to Corne al [...]
--- OUTSIDE RECORDS SUMMARY | 2024-08-27 14:00 | XMS_ITS | Encounter Summary ---
Author Organization [facility] Address [address] [facility] [place] [address] Care Team Providers Care Canvas Baster Jumpbasting Name Role Phone Scooter White DO Primary Care Provider [phone] Encounter Details Date Type Department Care Team (Late Contact Info) Description 11/06/2018 Lab Requisition [facility] Care Pathology Lab [address] [place] [address] Cindi Herrera MD [address] [place] [address] Enlarged lymph nodes Social History Tobacco Use Types Packs/Day Years Used Date Smoking Tobacco: Never Smokeless Tobacco: Never Alcohol Use Standard Drinks/Week Comments No 0 (1 standard drink = 0.6 oz pur e alcohol) Comments No Sex and Gender Information Value Date Recorded Sex Assigned at Not on file Legal Sex Female 1:08 PM DETECTIVE INVESTIGATOR Gender Identity Not on file Sexual Orientation Not on file documented as of this encounter Plan of Treatment Upcoming Encounters Date Type Department Care Team (Late Contact Info) Description 09/24/2024 1:00 PM CDT Appointment [facility] [address] [place] [address] documented as of this encounter Procedures Procedure Name Priority Date/Time Associated Diagnosis Comments FLOW CYTOMETRY TISSUE PANEL Routine 11/05/2018 11:02 AM CDT Enlarged lymph nodes documented in this encounter Results * FLOW CYTOMETRY TISSUE PANEL (11/05/2018 11:02 AM CDT) Case Report Flow Cytometry Case: [id number] Authorizing Provider: Cindi Herrera MD Collected: 11/05/2018 11:02 AM Pathologist: Alexa Weinberg MD Received: 11/06/2018 02:01 PM Specimen: Cervical Lymph Node , Left 5:33 PM CDT [facility] PATH[facility] Final Diagnosis Lymph node, left cervical, flow cytometric immunophenotypic analysis: - No evidence of non-Hodgkin lymphoma. - See interpretation. 5:33 PM CDT [facility] PATH[facility] Flow Cytometry Interpretation The left [...] flow cytometry specimen is reviewed for quality lead purposes. In summary, the left cervical lymph node specimen shows no evidence of a non-Hodgkin lymphoma. Correlation with additional clinical information and the concurrent biopsy specimen is required. KR 9 5:33 PM T [facility] Flow Cytometry Results Differential Result Comment Flow Cell Count /uL [id number] Total Viability % 86.0 Lymphocytes % 97 Dim CD45 Region % 0 Monocytes % 1 Granulocytes % 1 9 5:33 PM CDT [facility] Reason for test Enlarged lymph nodes 785.6 9 5:33 PM CDT [facility] Client Specimen ID # [id number] 9 5:[address] [facility] PATHOLOGY LAB Number of markers 16 were performed. A Flow CD3 A Flow CD10 A Flow CD20 A Flow CD23 A Flow CD2 A Flow CD4 A Flow CD1a A Flow CD5 A Flow CD19 A Flow CD34 A Flow CD45 A Flow CD7 A Flow CD8 A Flow CD30 A Selmer+CD19+ A Lambda+CD19+ 9 5:33 PM CDT [facility] Disclaimer Test performed at [facility], [address] [place], [place], [address]. *The established laboratory minimum viability is 70%. [...] complexity clinical testing. 9 5:33 PM CDT [facility] Embedded Images 5:33 PM CDT [facility] Pathology/Cytolo gy ENTIRE CERVICAL LYMPH NODE / Unknown 11/05/2018 11:02 AM CDT 11/06/2018 2:01 PM CDT Cindi Herrera MD LAB - PATHOLOGY/CYTOLOGY ORDERA BLES Final Result [facility] [address] [place] [address]. [place] [address], [facility] [phone] documented in this encounter Visit Diagnoses Diagnosis Enlarged lymph nodes Enlargement of lymph nodes documented in this encounter Care Teams Canvas Baster Jumpbasting Relationship Specialty Start Date End Date Scooter White DO PCP - General 03/16/22 documented as of this encounter
--- OUTSIDE RECORDS SUMMARY | 2024-08-27 14:00 | XMS_ITS | Encounter Summary ---
Author Organization [facility] Address [address] [place] [address] Care Team Providers Care Motor Mechanic Name Role Phone Scooter White DO Primary Care Provider Reason for Referral * (Routine) - Open Specialty Diagnoses / Procedures Referred By Contac t Referred To Contact Diagnoses Dichorionic diamniotic twin in second trimester ([facility]) History of pre-eclampsia in prior , currently ([facility]) 24 weeks gestation of ([facility]) Supervision of high risk in second trimester ([facility]) Procedures SONOGRAM - COMPLETE Kiley Garcia MD [address] [facility] [place] [address] Phone: tel: fax: Referral ID Status Reason Start Date Expiration Date Visits Re quested Visits Authorized [id number] Open 08/20/2024 08/20/2025 1 1 * (Routine) - Open Specialty Diagnoses / Procedures Referred By Contac t Referred To Contact Diagnoses Dichorionic diamniotic twin in second trimester ([facility]) History of pre-eclampsia in prior , currently ([facility]) 24 weeks gestation of ([facility]) Supervision of high risk in second trimester ([facility]) Procedures SONOGRAM - COMPLETE Kiley Garcia MD [address] [place] [address] Phone: tel: fax: Referral ID Status Reason Start Date Expiration Date Visits Re quested Visits Authorized [id number] Open 08/20/2024 08/20/2025 1 1 Reason for Visit * Reason Comments Ultrasound * (Routine) - Open Specialty Diagnoses / Procedures Referred By Contac t Referred To Contact Diagnoses Dichorionic diamniotic twin in second trimester ([facility]) History of pre-eclampsia in prior , currently ([facility]) 24 weeks gestation of ([facility]) Supervision of high risk in second trimester ([facility]) Procedures SONOGRAM - COMPLETE Kiley Garcia MD [address] [place] [address] Phone: tel: fax: Referral ID Status Reason Start Date Expiration Date Visits Re quested Visits Authorized [id number] Open 08/20/2024 08/20/2025 1 1 Encounter Details Date Type Department Care Team ([facility] Contact Info) Description 08/27/2024 12:58 PM CDT Hospital Encounter [facility] M[facility] & Care [address] [place] [address] [id number] [place] [address] [place] [address] [address] [place] [address] Social History Tobacco Use Types Packs/Day Years Used Date Smoking Tobacco: Never Smokeless Tobacco: Never Alcohol Use Standard Drinks/Week Comments No 0 (1 standard drink = 0.6 oz pur e alcohol) Estimated Date of Delivery Comme nts Yes 12/15/2024 Based on Ultraso und Sex and Gender Information Value Date Recorded Sex Assigned at Not on file Legal Sex Female 1:08 PM 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 Gender Identity Not on file Sexual Orientation Not on file documented as of this encounter Plan of Treatment Upcoming Encounters Date Type Department Care Team ([facility] Contact Info) Description 09/24/2024 1:00 PM CDT Appointment [facility] [address] [place], [place] [id number] Scheduled Orders Name Type Priority Associated Diagnoses Orde r Schedule SONOGRAM - COMPLETE [facility] MED Routine Dichorionic diamniotic twin in second trimester ([facility]) History of pre-eclampsia in prior , currently ([facility]) 24 weeks gestation of ([facility]) Supervision of high risk in second trimester ([facility]) 1 Occurrences starting 08/20/2024 until 08/20/2025 SONOGRAM - COMPLETE MATRNL MED Routine Dichorionic diamniotic twin in second trimester ([facility]) History of pre-eclampsia in prior , currently ([facility]) 24 weeks gestation of ([facility]) Supervision of high risk in second trimester ([facility]) 1 Occurrences starting 08/27/2024 until 08/27/2024 documented as of this encounter Visit Diagnoses Diagnosis Dichorionic diamniotic twin in second trimester ([facility])- Primary Twin , antepartum History of pre-eclampsia in prior , currently ([facility]) with other poor obstetric history 24 weeks gestation of ([facility]) state, incidental Supervision of high risk in second trimester ([facility]) Unspecified high-risk documented in this encounter Care Teams Motor Mechanic Relationship Specialty Start Date End Date Scooter White DO PCP - General 03/16/22 documented as of this encounter
--- OUTSIDE RECORDS SUMMARY | 2024-08-27 14:00 | XMS_ITS | Continuity of Care Document ---
Author Organization [facility] Address [address] [facility] [place] [place] [address] Phone Care Team Providers Care Aix Administrator Name Role Phone Robby Torres MD Unavailable [...] Diagnoses Date Provider Providers Copied on Encounter [facility], [address] [place], [place], [id number], [place] tel:[phone] [facility] No Information 1 Brian Bustamante. [address], [place], [place], [address] , [place]. tel:[phone] [facility], [address], [place], [place], [address], [place] tel:[phone] [facility] No Information 0 Brian Bustamante. [address], [place], [place], [address] , [place]. tel:[phone] OFFICE/OUTPA TIENT VISIT, [facility], [address], [place], [place], [address], [place] tel:[phone] [facility] anxiety1 (chief complaint) Generalized Anxiety DisorderHypothyroid ism 0 Brian Bustamante. [address], [place], [place], [address] , [place]. tel:[phone] Referring Provider: Robby Torres [address], [place], [place], [address]. tel:[phone] OFFICE/OUTPA TIENT VISIT, [facility], [address], [place], [place], [address], [place] tel:[phone] [facility] anxiety1 (chief complaint) Generalized Anxiety DisorderGoiter 0 Brian Bustamante. [address], [place], [place], [address] , [place]. tel:[phone] Referring Provider: Robby Torres [address], [place], [place], [address]. tel:[phone] OFFICE/OUTPA TIENT VISIT, [facility], [address], [place], [address], [place] tel:[phone] [facility] thyroid nodule1 (chief complaint) anxiety1 (chief complaint) GoiterGeneralized Anxiety Disorder 0 Brian Menendez [address], [address], [place], [place], [address] , [place]. tel:[phone] Referring Provider: Gissel Banks [address], [place], [place], [address]. tel:[phone] OFFICE/OUTPA TIENT VISIT, [facility], [address], [place], [place], [address], [place] tel:[phone] [facility] anxiety1 (chief complaint) iron1 (chief complaint) thyroid1 (chief complaint) Disorder of iron metabolism, unspecifiedGoiterGe neralized Anxiety Disorder Lonnie-0 0 Brian Bustamante. [address], [place], [place], [address] , [place]. [phone] Referring Provider: Gissel Banks [address], [place], [place], [address]. tel:[phone] OFFICE/OUTPA TIENT VISIT, [facility], [address], [place], [place], [address], [place] tel:[phone] [facility] ankle pain1 (chief complaint) fatigue1 (chief complaint) thyroid1 (chief complaint) anemia1 (chief complaint) Pain in right ankleFatigueAnemiaG oiter 0 Brian Bustamante. [address], [place], [place], [address] , [place]. tel:[phone] Referring Provider: Gissel Banks [address], [place], [place], [address]. tel:[phone] OFFICE/OUTPA TIENT VISIT, [facility], [address], [place], [place], [address], [place] tel:[phone] [facility] rash1 (chief complaint) Allergic contact dermatitis due to plants, except food Aug- 0 Brian Bustamante. [address], [place], [place], [address] , [place]. [phone] Referring Provider: Gissel Banks [address], [place], [place], [address]. tel:[phone] OFFICE/OUTPA TIENT VISIT, [facility], [address], [place], [place], [address], tel:[phone] [facility] Medicine thyroid1 (chief complaint) ferritin1 (chief complaint) IgA (chief complaint) fatigue1 (chief complaint) GoiterDisorder of iron metabolism, unspecifiedVitamin D deficiency, unspecifiedRaised level of immunoglobulinAnemi aH. pylori as the cause of diseases classified elsewhereFatigue 0 Brian Bustamante. [address] [facility] [address] [place], [address] , . tel:[phone] Referring Provider: Gissel Banks [place], [place], [address]. tel:[phone] PREV VISIT, NEW, AGE 18-39 [facility], [address] [place] [address] [employer] [place], [place], [address], tel:[phone] [facility] PHysical (chief complaint) Encntr for general adult medical exam w/o abnormal findings 0 Brian Bustamante. [address], [facility] [address], [place], [place], [address] , [place]. tel:[phone] Referring Provider: Robby Torres [address] [place] [address], [id number]. tel:[phone] Family History Family Member Type Diagnosis Age [...] BIOPSY ordered Referral Referred To: Joe Fontana [address] [facility]
[address] [place], [place] [id number] Ordered: Referrals: Allopathic & Osteopathic Physicians : [...] keira with endo fatigue1 Pt has mild stone splitter mark fatigue Pt had sleep study done which was negative for sleep apnea ankle pain1 Pt was at [employer] round and she stepped on gravel which [...]
== END 2024-08-27 12:20 | disposition home or self-care (01) ==
PROVIDERS: PCP Advanced Practice Midwife; Visit Provider Advanced Practice Midwife
DX: O26.899 Other specified pregnancy related conditions, unspecified trimester (principal); R31.9 Hematuria, unspecified; Z3A.00 Weeks of gestation of pregnancy not specified
CPT/HCPCS: 76775

== ENCOUNTER 2024-09-02 20:21 | Outpatient (CLI) | payer OTHER, SELFPAY ==
[2024-09-02] VITALS (11 sets, daily range): BP systolic 117–134; BP diastolic 72–78; PULSE 108–118; O2SAT 97–100
--- NOTE | 2024-09-02 20:21 | PC.NURSE ---
Pt arrives to unit with leaking and congestion, twin , no cramping, contractions, or vaginal bleeding.
--- OUTSIDE RECORDS SUMMARY | 2024-09-02 20:26 | XMS_ITS | Encounter Summary ---
Author Organization [facility] Address [address] [place] [address] Phone Care Team Providers Care University Partnership Rep Name Role Phone Manda Singh MD Unavailable Robby Torres Primary Care Provider [phone] Scooter White DO Primary Care Provider Malik Cates MD Unavailable Ulices Marino MD Unavailable oYn Gutierrez MD Primary Care Provider Encounter Details Date Type Department Care Team (Late st Contact Info) Description 04/09/2020 Telephone [facility] [address] [address] Saud Dalton MD [address] [place] [address] Social History Tobacco Use Types Packs/Day [...] COVID-19? No / Unsure 03/20/2020 6:06 AM TYPESETTER APPRENTICE documented as of this encounter Miscellaneous Notes * Telephone Encounter - Mahnaz Alaniz - 04/09/2020 2:50 PM CST Patient no showed her appointment, left voice message to call the office to reschedule. Sent out a no show letter. SETTER APPRENTICE documented in this encounter Plan of Treatment Upcoming Encounters Date Type Department Care Team (Late st Contact Info) Description 09/26/2024 1:00 PM CDT Office Visit [facility] - Neurology [facility] [address] [place] [address] Georgina Fontenot APRN, PARASITOLOGY TEACHER [address] [place] [address] documented as of this encounter Visit Diagnoses Not on filedocumented in this encounter Additional Health Concerns Assessment Noted Time PHQ-9 Depression Total Score: 0 02/11/20 20 12:57 PM CDT documented as of this encounter Care Teams University Partnership Rep Relationship Specialty Start Date End Date Robby Torres [address] [place] [address] PCP - General Family Medicine 02/11/20 03/16/21 Scooter White DO [facility] [place] [address] PCP - General Internal Medicine 03/17/21 06/22/23 Yon Gutierrez MD 2 [facility] [address] [place] [address] PCP - General Family Medicine 06/23/23 Manda Singh MD Obstetrics & Gynecology 02/11/20 Malik Cates MD [address] [address] Consulting Physician Endocrinology 12/13/21 Ulices Marino MD [address] [address] Consulting Physician Colon and Rectal Surgery 07/06/22 documented as of this encounter
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
--- OUTSIDE RECORDS SUMMARY | 2024-09-02 20:26 | XMS_ITS | Clinical Summary ---
Author Organization [facility] Address [address] [place] [address] Care Team Providers Care Medical Reviewer Name Role Phone Robby Torres MD Unavailable [phone] Yon Gutierrez MD Primary Care Provider Malik Cates MD Unavailable Cindi Bryant HARDBOARD GRINDER Unavailable Sakshi Biggs DO Unavailable Allergies Active Allergy Reactions Criticality Noted Date Comments Cephalexin Hives Medium 12/21/2023 Prednisone Hives Medium 08/09/2024 Medications aspirin 81 mg enteric coated tablet Take 1 tablet (81 mg total) by mouth daily Active vit [id number]-ncuo-bzqee-d luo 27mg iron- 800 mcg-250 mg capsule [...] one by Dr. Davila for endometriosis at [place] - this is her second period currently, [...] possible Assessment & Plan (06/20/2023 9:50 AM LEGUILLON DEBEADER): Hearing test, plan for bilateral myringotomy with [...] managed by endocrinology - Dr. Cates (her film mounter) tried some medications without success - insurance [...] managed by endocrinology - Dr. Cates (her film mounter) tried some medications without success - insurance [...] managed by endocrinology - Dr. Cates (her film mounter) tried some medications without success - insurance limitations can affect it - start Phentermine, taper up dose sent - f/u in 6 weeks Assessment & Plan (05/28/2023 3:41 PM LEGUILLON DEBEADER): Wt Readings from Last 3 Encounters: 05/26/23 [...] months Assessment & Plan (05/28/2023 3:35 PM LEGUILLON DEBEADER): - chronic, recurrent condition, worse - in [...] disease. Assessment & Plan (05/28/2023 3:36 PM LEGUILLON DEBEADER): - chronic, recurring condition - has history [...] Recommend thyroid ultrasound. Instructed to inform her film mounter about MRI findings. US Thyroid 09/2022 IMPRESSION: [...] recommended. Assessment & Plan (05/28/2023 3:28 PM LEGUILLON DEBEADER): Chronic condition, stable/controlled Diagnosed in 2018 Currently [...] 02/13/2019 Assessment & Plan (05/28/2023 3:38 PM LEGUILLON DEBEADER): - recent onset - was seen recently [...] 019 Assessment & Plan (05/26/2023 8:54 AM LEGUILLON DEBEADER): - had EGD in past and was found to have H. Pylori which was being treated - no current issues at this time Chronic gastritis 11/26/2018 Overview (05/03/2023): EGD - H pylori, GI S/P hemorrhoidectomy 11/26/2018 Conductive hearing loss, middle ear 10/18/2018 Assessment & Plan (04/03/2024 2:03 PM LEGUILLON DEBEADER): Avoid ear cleaning techniques Avoid water to ears Hearing test today was normal, ear tubes open suspect referred ear fullness from neck or jaw Chronic serous otitis media of left ear 10/19/19 19 Assessment & Plan (04/03/2024 1:03 PM LEGUILLON DEBEADER): Avoid ear cleaning techniques Avoid water to [...] Overview (05/03/2023): Vaginitis;Recorded Elsewhere: No Location: [facility] Source: EHR Chronic: N Practice ID: [id number] Billable Time: 10:45:00 AM TMJ (temporomandibular joint syndrome) 01/04/2019 05/28/2023 Chronic gastritis 11/26/2018 05/26/2023 Prolapsed internal hemorrhoids, grade 4 09/26/2018 05/26/2023 Overview (09/26/2018): Added automatically from request for surgery [id number] Assessment & Plan (09/26/2018 2:45 PM CDT): [...] Description 08/09/2024 8:15 AM CDT Office Visit [facility] - [address] [place] [address] Sakshi Biggs, DO Otorrhea of [...] on file Legal Sex Female 10:18 AM LEGUILLON DEBEADER Gender Identity Not on file Sexual Orientation Not on file Obstetrics History Last Filed Vital Signs Vital Sign Reading Time Taken Comments Blood Pressure 138/88 04/06/2024 10:25 PM LEGUILLON DEBEADER Pulse 78 04/06/2024 11:45 PM LEGUILLON DEBEADER Temperature 36.3 C (97.4 F) 04/06/2024 10:25 PM LEGUILLON DEBEADER Respiratory Rate 18 04/06/2024 10:25 PM LEGUILLON DEBEADER Oxygen Saturation 100% 04/06/2024 11:45 PM LEGUILLON DEBEADER Inhaled Oxygen Concentration - - Weight 85.7 kg (189 lb) 04/06/2024 10:25 PM LEGUILLON DEBEADER Height 165.1 cm (5' 5 ) 04/06/2024 10:25 PM LEGUILLON DEBEADER Body Mass Index 31.45 04/06/2024 10:25 PM LEGUILLON DEBEADER Plan of Treatment Health Maintenance Due Date [...] this topic Medical Devices Implanted Type Area Automation Qtp Tester Device Identifier Shelf Expiration Date Model / Serial / Lot Olymp[employer] 1.32mm 4.8mm Modify Ear T Tube Ventilation Ultrasil Sterile Blue [id number] - [id number] Implanted:Qty: 1 on 07/11/2023 by Sakshi Biggs DO at [facility] Left: Ear [employer] 01/03/2033 [id number] / / [id number] [employer] 1.32mm 4.8mm Modify Ear T Tube Ventilation Ultrasil Sterile Blue [id number] - [id number] Implanted:Qty: 1 on 07/11/2023 by Sakshi Biggs DO at [facility] Right: Ear [employer] 01/18/2033 [id number] / / [id number] Insurance [facility] Care Teams Medical Reviewer Relationship Specialty Start Date End Date Yon Gutierrez MD [address] [facility] [address] NATALY Rowe [address] [address] PCP - General Family Medicine 04/04/23 Robby Torres MD Referring Physician Family Medicine 08/22/19 Malik Cates MD 2 [facility] [address] [place] [address] Referring Physician General Surgery 05/26/23 Cindi Bryant NP [address] [place] [address] Nurse Practitioner Obstetrics and Gynecology 05/26/23 Sakshi Biggs DO [address] [place] [address] [address] INGRAM [address] [address] Consulting Physician Otolaryngology 05/26/23
--- OUTSIDE RECORDS SUMMARY | 2024-09-02 20:26 | XMS_ITS | Clinical Summary ---
Author Organization [facility] Address [address] [facility], [address] [address] Phone Care Team Providers Care Director Of State Name Role Phone Manda Singh MD Unavailable [phone] Malik Cates MD Unavailable Ulices Marino [...] Transcribe Orders [facility] [address] [place] [address] Provider, Not On File Low back pain, [...] 97.5 kg (215 lb) 04/19/2023 8:07 AM COMPUTER ASSEMBLER Height 165.1 cm (5' 5 ) 04/19/2023 8:07 AM COMPUTER ASSEMBLER Body Mass Index 35.78 04/19/2023 8:07 AM COMPUTER ASSEMBLER Plan of Treatment Upcoming Encounters Date Type Department Care Team (Late st Contact Info) Description 09/26/2024 1:00 PM CDT Office Visit [facility] - [facility] [address] [place] [address] Georgina Fontenot, WAGON DRIVER, PARQUET FLOOR LAYER [address] [place] [address] Health Maintenance Due Date Last Done Comments [...] this topic Medical Devices Implanted Type Area Roping Machine Tender Device Identifier Shelf Expiration Date Model / Serial / Lot Tube Ventilation 5mm Carey Triune - [id number] Implanted:Qty: 1 on 11/05/2018 by [facility]eng [facility] IMPLANT Left: Ear [employer] 04/06/2020 510-122 / [id number] / [id number] Description:Ear tubes came f rom the same package Tube Ventilation 5mm Carey Triune - [id number] Implanted:Qty: 1 on 11/05/2018 by Jordon Deng MD at [facility] IMPLANT Right: Ear [employer] 04/06/2020 510-122 / 510-122 / [id number] Description:Ear tubes came f rom the same package Insurance * Guarantor: [facility] Account Type Relation to Patient Date of Phone Billing Address Institutional Other [address] [place] [address] Care Teams Director Of State Relationship Specialty Start Date End Date Yon Gutierrez MD 2 [facility] [address] [place] [address] PCP - General Family Medicine 06/23/23 Manda Singh MD Obstetrics & Gynecology 02/11/20 Malik Cates MD [address] [id number] Consulting Physician Endocrinology 12/13/21 Ulices Marino MD [address] [address] Consulting Physician Colon and Rectal Surgery 07/06/22
--- OUTSIDE RECORDS SUMMARY | 2024-09-02 20:26 | XMS_ITS | Encounter Summary ---
Author Organization [facility] Address [address] [place] [address] Phone Care Team Providers Care Bus And Rail Operator Name Role Phone Manda Singh MD Unavailable [phone] Scooter White DO Primary Care Provider Malik Cates MD Unavailable Ulices Marino MD Unavailable Yon Gutierrez MD Primary Care Provider Encounter Details Date Type Department Care Team (Late st Contact Info) Description 07/26/2021 Lab Requisition [facility] [address] [place] [address] Edita Garza, ESTIMATOR JEWELRY, MAIL TECHNICIAN [address] [place] [address] Encounter for pre-employment examination Social History Tobacco [...] 09/26/2024 1:00 PM CDT Office Visit [facility] - Neurology - [place] [address] [place] [address] Georgina Fontenot, ESTIMATOR JEWELRY, INSTITUTION DIRECTOR [address] [place] [address] documented as of this encounter Procedures Procedure [...] 2.7 >=1.1 AI 07/26/2021 10:00 PM CDT [facility] Blood No Phlebotomy Charged / Unknown 07/26/2021 9:00 AM CDT 07/26/2021 2:15 PM CDT Narrative [facility] - 07/26/2021 10:00 PM CDT <= 0.8 Negative. No detectable VZV IgG antibody. 0.9 - 1.0 Equivocal >=1.1 Positive Antibody testing was performed by multiplex flow immunoassay on the BioPlex platform. Edita Garza ESTIMATOR JEWELRY, MAIL TECHNICIAN IMMUNOLOGY ORDERABL ES Final Result Performing Organization Address [facility] Co de Phone Number [facility] [address] [place] [address], [place] * (ABNORMAL) RUBEOLA (MEASLES) IGG (07/26/2021 9:00 AM CDT) MEASLES AB IGG 0.7(L) >=1.1 AI 07/26/2021 10:00 PM CDT [facility] Blood No Phlebotomy Charged / Unknown 07/26/2021 9:00 AM CDT 07/26/2021 2:15 PM CDT Narrative [facility] - 07/26/2021 10:00 PM CDT <= 0.8 Negative. No detectable Measles IgG antibody. 0.9 - 1.0 Equivocal >=1.1 Positive Antibody testing was performed by multiplex flow immunoassay on the BioPlex platform. us Edita L Behrends ESTIMATOR JEWELRY, MAIL TECHNICIAN IMMUNOLOGY ORDERABL ES Final Result Performing Organization Address [facility] Co de Phone Number [facility] [address] [place] [address], [place] * RUBELLA IMMUNITY IGG (07/26/2021 9:00 AM CDT) RUBELLA IMMUNITY Immune Immune, Invalid 07/26/2021 10:00 PM CDT [facility] Blood No Phlebotomy Charged / Unknown 07/26/2021 9:00 AM CDT 07/26/2021 2:15 PM CDT Narrative [facility] - 07/26/2021 10:00 PM CDT Antibody testing was performed by multiplex flow immunoassay on the BioPlex platform. us Edita L Behrenjohn ESTIMATOR JEWELRY, MAIL TECHNICIAN CHEMISTRY ORDERABLE S Final Result Performing Organization Address [facility] de Phone Number [facility] [address] [place] [address], [place] * MUMPS IGG (07/26/2021 9:00 AM CDT) Pathologist [facility] Mumps Ab IgG 1.2 >=1.1 AI 07/26/2021 10:00 PM CDT [facility] Blood No Phlebotomy Charged / Unknown 07/26/2021 9:00 AM CDT 07/26/2021 2:15 PM CDT Narrative [facility] - 07/26/2021 10:00 PM CDT <= 0.8 Negative. No detectable Mumps IgG antibody. 0.9 - 1.0 Equivocal >=1.1 Positive Antibody testing was performed by multiplex flow immunoassay on the BioPlex platform. us Editahenry Garza ESTIMATOR JEWELRY, MAIL TECHNICIAN IMMUNOLOGY ORDERABL ES Final Result Performing Organization Address [facility] Co de Phone Number [facility] [address] [place] [address], [place] * QUANTIFERON-TB GOLD PLUS (07/26/2021 9:00 AM CDT) Pathologist [facility] NIL CONTROL 0.04 <8.01 IU/mL 07/28/2021 1:01 PM CDT [facility] TB ANTIGEN 1 0.00 <0.35 IU/mL 07/28/2021 1:01 PM CDT [facility] TB ANTIGEN 2 0.00 <0.35 IU/mL 07/28/2021 1:01 PM CDT [facility] MITOGEN CONTROL 9.64 >0.49 IU/mL 07/29/19 1:01 PM CDT [facility] INTEPRETATION TB NEGATIVE NEGATIVE, NEGATIVE (TB antigen response less than 25% of internal negative control value) 07/28/2021 1:01 PM CDT [facility] Comment:No immune response t o Mycobacterium tuberculosis antigens was noted. M. tuberculosis infection unlikely. Blood No Phlebotomy Charged / Unknown 07/26/2021 9:00 AM CDT 07/26/2021 2:15 PM CDT Narrative [facility] - 07/28/2021 1:01 PM CDT A POSITIVE [...] otherwise immunocompromised individuals. https://www.cdc.gov/tb/publications/guidelines/testing.htm Edita Garza APRN, MAIL TECHNICIAN IMMUNOLOGY ORDERABL ES Final Result Performing Organization Address [facility] de Phone Number [facility] [address] [place] [address], [place] * HEPATITIS B SURFACE ANTIBODY (HBSAB) (07/26/2021 9:00 AM CDT) HEPATITIS B SURFACE ANTIBODY 8.33 mIU/mL [facility] ARCH [id number] 07/27/2021 12:02 AM CDT [facility] Comment: Grayzone Range: >=8.00 to <=12.00 The immune status of the individual should be further assessed considering other factors, such as clinical status, follow-up testing, associated risk factors and the use of additional diagnostic information. Blood No Phlebotomy Charged / Unknown 07/26/2021 9:00 AM CDT 07/26/2021 2:15 PM CDT Edita Garza APRN, MAIL TECHNICIAN CHEMISTRY ORDERABLE S Final Result Performing Organization Address [facility] de Phone Number [facility] [address] [place] [address], [place] documented in this encounter Visit Diagnoses Diagnosis Encounter for pre-employment examination Health examination of defined subpopulation documented in this encounter Additional Health Concerns Assessment Noted Time PHQ-9 Depression Total Score: 0 02/11/20 20 12:57 PM CDT documented as of this encounter Care Teams Bus And Rail Operator Relationship Specialty Start Date End Date Scooter White DO [facility] [facility] [place] [address] PCP - General Internal Medicine 03/17/21 06/22/23 Yon Gutierrez MD 2 [facility] [address] [place] [address] PCP - General Family Medicine 06/23/23 Manda Singh MD Obstetrics & Gynecology 02/11/20 Malik Cates MD [address] [address] Consulting Physician Endocrinology 12/13/21 Ulices Marino MD #[address] [address] Consulting Physician Colon and Rectal Surgery 07/06/22 documented as of this encounter
--- OUTSIDE RECORDS SUMMARY | 2024-09-02 20:26 | XMS_ITS | Encounter Summary ---
Author Organization [facility] Address [address] [place] [address] Care Team Providers Care Poultry Farm Supervisor Name Role Phone Scooter White DO Primary Care Provider Encounter Details Date Type Department Care Team (Late Contact Info) Description 11/06/2018 Lab Requisition [facility]ology Lab [address] [place] [address] Cindi Herrera MD [address] [place] [address] Enlarged lymph nodes Social History Tobacco Use Types Packs/Day Years Used Date Smoking Tobacco: Never Smokeless Tobacco: Never Alcohol Use Standard Drinks/Week Comments No 0 (1 standard drink = 0.6 oz pur e alcohol) Comments No Sex and Gender Information Value Date Recorded Sex Assigned at Not on file Legal Sex Female 1:08 PM SENIOR SOLUTIONS 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 Gender Identity Not on file Sexual Orientation Not on file documented as of this encounter Plan of Treatment Upcoming Encounters Date Type Department Care Team (Late Contact Info) Description 09/24/2024 1:00 PM CDT Appointment [facility] Maternal [facility] [address] [place] [address] documented as of this encounter Procedures Procedure Name Priority Date/Time Associated Diagnosis Comments FLOW CYTOMETRY TISSUE PANEL Routine 11/05/2018 11:02 AM CDT Enlarged lymph nodes documented in this encounter Results * FLOW CYTOMETRY TISSUE PANEL (11/05/2018 11:02 AM CDT) Case Report Flow Cytometry Case: [id number] Authorizing Provider: Cindi Herrera MD Collected: 11/05/2018 11:02 AM Pathologist: Alexa Weinberg MD Received: 11/06/2018 02:01 PM Specimen: Cervical Lymph Node , Left 5:33 PM CDT [facility] PATH[facility]Y [facility] Final Diagnosis Lymph node, left cervical, flow cytometric immunophenotypic analysis: - No evidence of non-Hodgkin lymphoma. - See interpretation. 5:33 PM CDT [facility] Flow Cytometry Interpretation The left [...] cytometry specimen is reviewed for quality assurance director purposes. In summary, the left cervical lymph node specimen shows no evidence of a non-Hodgkin lymphoma. Correlation with additional clinical information and the concurrent biopsy specimen is required. KR 9 5:33 PM T [facility] Flow Cytometry Results Differential Result Comment Flow Cell Count /uL [id number] Total Viability % 86.0 Lymphocytes % 97 Dim CD45 Region % 0 Monocytes % 1 Granulocytes % 1 9 5:33 PM CDT [facility] Reason for test Enlarged lymph nodes 785.6 9 5:33 PM CDT [facility] Client Specimen ID # [id number] 9 5:33 PM [facility] Number of markers 16 were performed. A Flow CD3 A Flow CD10 A Flow CD20 A Flow CD23 A Flow CD2 A Flow CD4 A Flow CD1a A Flow CD5 A Flow CD19 A Flow CD34 A Flow CD45 A Flow CD7 A Flow CD8 A Flow CD30 A Red Level+CD19+ A Lambda+CD19+ 9 5:33 PM CDT [facility] Disclaimer Test performed at [facility], [address] [place], [place], [address]. *The established laboratory minimum viability is 70%. [...] clinical testing. 9 5:33 PM CDT [facility] Embedded Images 5:33 PM CDT [facility] Pathology/Cytolo gy ENTIRE CERVICAL LYMPH NODE / Unknown 11/05/2018 11:02 AM CDT 11/06/2018 2:01 PM CDT Cindi Herrera MD LAB - PATHOLOGY/CYTOLOGY ORDERA BLES Final Result [facility] [address] [place] [address]. [place] [address], [facility] [phone] documented in this encounter Visit Diagnoses Diagnosis Enlarged lymph nodes Enlargement of lymph nodes documented in this encounter Care Teams Poultry Farm Supervisor Relationship Specialty Start Date End Date Scooter White DO PCP - General 03/16/22 documented as of this encounter
--- OUTSIDE RECORDS SUMMARY | 2024-09-02 20:26 | XMS_ITS | Continuity of Care Document ---
Author Organization [facility] Address [address] [place] [address] [address] [place] [address] Phone Care Team Providers Care Physical Education Teacher Name Role Phone Carol OD OD, Georgina [...] Active Procedures Procedure Date OFFICE/OUTPATIENT VISIT, [facility] Comp cont lens eval No Charge Visit N/C Glasses Check Advance Directives Directive Yes / No Effective Date File Name No Information Encounters Encounter Description Practice Location Reason(s) For Visit Diagnoses Date Provider Providers Copied on Encounter [facility], [address] [place] [address] [address], [place], [place], [id number], tel:[phone] O[facility] CONSULT KENTRELL LOPEZ No Information 3 Carol OD Georgina. [address] [facility], [address], [place], [place], [id number], [place]. tel:[phone] Referring Provider: Georgina Medina OD, [address] [facility] [address], [place], [address] . tel:[phone] OFFICE/OUTPA TIENT VISIT, [facility], [address] [place] [address], [id number], tel:[phone] [facility] CONSULT KENTRELL LOPEZ blurry vision (chief complaint) dry eye (chief complaint) Krystin's thyroiditisMyo roger, bilateralTear film insufficiency of bilateral lacrimal glandsOther vitreous opacities, bilateralCorne al neovasculariza tion of both eyes 2 Derheimer OD Georgina. [address], [address] [place] [address], [id number], [place]. tel:[phone] Referring Provider: Scooter White, [address], [place], [address]. tel:[phone] [facility], [address] [place] [address], [id number], tel:[phone] Optical Services KENTRELL LOPEZ No Information 6 Derheimer OD Georgina. [address], [address] [place] [address], [id number], [place]. tel:[phone] Referring Provider: Georgina Medina OD, [address], [place], [address] . tel:[phone] [facility], [address] [place] [address], [id number], tel:[phone] OPH CONSULT KENTRLEL LOPEZ blurry vision (chief complaint) Myopia, bilateral 6 Derheimer OD Georgina. [address], [place], [place], [id number], [place]. tel:[phone] Referring Provider: Georgina Medina OD, [address], [place], [address] . tel:[phone] [facility], [address] [place] [address], [id number], tel:[phone] OPH CONSULT KENTRELL LOPEZ No Information 1 Beth Cohenl. [address], [address], [place], [place], [id number], [place]. tel:[phone] Family History Family Member Type Diagnosis Age At Onset Problem No family history of Diabete s mellitus Problem No family history of Macular degeneration Problem No family history of Hyperte nsion Problem No family history of Glaucom a Payers Payer name Insurance type Covered constitution party ID Authoriza tion(s) No Information Social [...]
--- OUTSIDE RECORDS SUMMARY | 2024-09-02 20:26 | XMS_ITS | Clinical Summary ---
Author Organization [facility] Address [address] [place] [address] Care Team Providers Care Barrow Worker Name Role Phone Scooter White DO Primary Care Provider [phone] Source Comments [facility],non-owned Affiliates and Associated Physician Practices is amultiple site organization consisting of ambulatory clinics and hospital sitesin [place], [place], [place] and [place]. This disclosure is being madepursuant to the Care Everywhere program and may not contain all information available regarding this patient. 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 Supervision of high-risk 08/29/2011 ADHD (attention deficit hyperactivity disorder) 01/23/2008 Estimated Date of Delivery Comme nts Yes 12/15/2024 Based on Ultraso und Encounters Date Type Department Care Team Description 08/27/2024 12:58 PM CDT - 08/27/2024 11:59 PM CDT Hospital Encounter [facility] [address] [place] [id number] Christiano Tristan MD Discharge Disposition: Home or Self Care 07/31/2024 12:59 PM CDT - 07/31/2024 11:59 PM CDT Hospital Encounter [facility] [address] [place] [address] Katina Ewing MD Discharge Disposition: Home or Self Care 07/31/2024 12:59 PM CDT - 07/31/2024 11:59 PM CDT Hospital Encounter [facility] [address] [place] [id number] Katina Ewing MD Discharge Disposition: Home or [...] on file Legal Sex Female 1:08 PM GETTER WELDER Gender Identity Not on file Sexual Orientation [...] Info) Description 09/24/2024 1:00 PM CDT Appointment [facility] [address] [place], [place] [id number] Health Maintenance Due Date Last Done Comments [...] Associated Diagnosis Comments SONOGRAM - COMPLETE Routine 08/27/2024 1 2:52 PM CDT Dichorionic diamniotic twin in second trimester ([facility]) History of pre-eclampsia in prior , currently ([facility]) 24 weeks gestation of ([facility]) Supervision of high risk in second trimester ([facility]) SONOGRAM - COMPLETE Routine 07/31/2024 1 2:55 PM CDT Dichorionic diamniotic twin in second trimester History of pre-eclampsia in prior , currently Anxiety and depression History of panic attacks from Last 3 Months Results * SONOGRAM - COMPLETE (08/27/2024 12:52 PM CDT) Only the most recent of2 resultswithin the time period is included. Linked Results Indication ======== DA/DC Twins Incomplete Anatomy Screen x2 History of , Preeclampsia, Obesity in , Class II History ====== OB History 4. Para 3 [id number] 1. live 2011. Gest. age 41 w [...] Height 160 cm, 5 ft 3 in. Initial weight 94 kg, 207 lb. Initial BMI 36.67 kg/m Method ====== Transabdominal ultrasound. Transabdominal ultrasound. View: Sufficient ========= Twin . Number of fetuses: 2. Dichorionic-diamnio tic Dating ====== Date Details Gest. age BETTY Stated BETTY 23 w + 5 d 12/19/2024 U/S Fetus A 08/27/2024 based upon AC, BPD, Femur, HC 25 w + 0 d 12/10/2024 U/S Fetus B based upon AC, BPD, Femur, HC 24 w + 0 d 12/17/2024 Assigned dating based on stated BETTY, selected on 07/31/2024 23 w + 5 d 12/19/2024 Fetus A: General Evaluation Cardiac activity present. FHR 154 bpm. Presentation: cephalic left Placenta: Placental site: anterior Umbilical cord: Cord vessels: 3 vessel cord - previously documented. Insertion site: normal insertion - previously documented Amniotic fluid: Amount of AF: normal. MVP 4.5 cm Fetus B: General Evaluation Cardiac activity present. FHR 150 bpm. Presentation: cephalic right Placenta: Placental site: posterior Umbilical cord: Cord vessels: 3 vessel cord - previously documented. Insertion site: normal insertion - previously documented Amniotic fluid: Amount of AF: normal. MVP 5.9 cm Fetus A: Biometry BPD 62.4 mm 25w 2d 91% Hadlock HC 226.9 mm 24w 5d 72% Hadlock AC 205.9 mm 25w 1d 84% Hadlock Femur 44.4 mm 24w 4d 67% Hadlock Humerus 41.0 mm 24w 6d 74% Robinson HC / AC 1.10 -/- Hadlock Weight Calculation: EFW 751 g 90% Hadlock EFW (lb,oz) 1 lb 11 oz EFW by Hadlock ([id number]) EFW discordance 7.5 % accelerated Fetus B: Biometry BPD 56.5 mm 23w 2d 27% Hadlock HC 211.7 mm 23w 2d 17% Hadlock AC 202.4 mm 24w 6d 77% Hadlock Femur 43.7 mm 24w 2d 59% Hadlock HC / AC 1.05 -/- Hadlock Weight Calculation: EFW 695 g 74% Hadlock EFW (lb,oz) 1 lb 9 oz EFW by Hadlock ([id number]) EFW discordance 7.5 % appropriate Fetus A: Growth Overview Exam date GA BPD (mm) HC (mm) AC (mm) FL (mm) HL (mm) EFW (g) 07/31/2024 19w 6d 48.8 84% 181.3 73% 157.3 77% 34.6 78% 32.3 86% 381 91% 08/27/2024 23w 5d 62.4 91% 226.9 72% 205.9 84% 44.4 67% 41 74% 751 90% Fetus B: Growth Overview Exam date GA BPD (mm) HC (mm) AC (mm) FL (mm) HL (mm) EFW (g) 07/31/2024 19w 6d 46.1 53% 165.1 16% 156.8 76% 33.2 62% 30.5 63% 356 78% 08/27/2024 23w 5d 56.5 27% 211.7 17% 202.4 77% 43.7 59% 695 74% Fetus A: Anatomy The following structures appear normal: Head / Neck Cranium. Face Lips. Profile. Nose. Orbits. Heart / Thorax 4-chamber view. RVOT view. LVOT view. 3-vessel view. 3-ttdegf-zdloijb view. Bicaval view. Ductal arch view. Interventricular septum. Great vessels. Diaphragm. Abdomen Stomach. Kidneys. Bladder. Bowel. Extremities / Skeleton Arms. Right hand. Feet. The following structures could not be adequately visualized: Heart / Thorax Aortic arch view. Spine Cervical spine. Thoracic spine. Lumbar spine. Sacral spine. The following structures were documented previously: Head / Neck Lateral ventricles. Choroid plexus. Midline falx. Cavum septi pellucidi. Cerebellum. Cisterna magna. Thalami. Heart / Thorax Situs. Right lung. Left lung. Abdomen Cord insertion. Genitals. Extremities / Skeleton Left hand. Legs. Spine other: Normal sagittal, Suboptimal Transverse sex: female. Fetus B: Anatomy The following structures appear normal: Head / Neck Cranium. Face Profile. Nose. Nasal bone. Orbits. Heart / Thorax 4-chamber view. LVOT view. 3-vessel view. 1-idyqyk-vqozcpt view. Aortic arch view. Bicaval view. Interventricular septum. Abdomen Stomach. Kidneys. Bladder. The following structures could not be adequately visualized: Spine Cervical spine. Thoracic spine. Lumbar spine. Sacral spine. Extremities / Skeleton Right hand. The following structures were documented previously: Head / Neck Lateral ventricles. Choroid plexus. Midline falx. Cavum septi pellucidi. Cerebellum. Cisterna magna. Thalami. Face Lips. Heart / Thorax RVOT view. Situs. Abdomen Cord insertion. Bowel. Genitals. Extremities / Skeleton Arms. Left hand. Legs. Feet. sex: female. Impression ========= Dichorionic-diamnio tic, live, intrauterine at 23w 5d The size is accelerated for twin A and appropriate for twin B. The amniotic fluid is normal for twin A and normal for twin B. No major malformations were seen within the limitations of ultrasound. Follow-up ======== Follow up ultrasound in 4 weeks for growth and to complete anatomic survey Coding ====== Procedures [id number]: US Preg Uterus Follow Up. x2 [employer] PACS Anatomical Region Laterality Modality Other 08/27/2024 12:5 2 PM CDT R Bert Garcia MD [facility] ORDERABLES Edited Result - Final from Last 3 Months Insurance Care Teams Barrow Worker Relationship Specialty Start Date End Date Scooter White DO PCP - General 03/16/22
--- OUTSIDE RECORDS SUMMARY | 2024-09-02 20:26 | XMS_ITS | Encounter Summary ---
Author Organization [facility] Address [address] [place] [address] Phone Care Team Providers Care Taper/Finisher Name Role Phone Manda Singh MD Unavailable [phone] Robby Torres Primary Care Provider [phone] Scooter White DO Primary Care Provider Malik Cates MD Unavailable Ulices Marino MD Unavailable Yon Gutierrez MD Primary Care Provider Encounter Details Date Type Department Care Team (Late st Contact Info) Description 03/09/2020 Transcribe Orders [facility] Preop/Pacu II [address] [place] [id number] Waletr Blake MD [address] [place] [address] Preop testing (Primary Dx) Social History Tobacco [...] COVID-19? Unable to assess 03/10/2020 1:32 PM JAPANESE TUTOR documented as of this encounter Plan of Treatment Upcoming Encounters Date Type Department Care Team (Late st Contact Info) Description 09/26/2024 1:00 PM CDT Office Visit [facility] - Neurology - [place] [address] [place] [address] Georgina Fontenot APRN, FAMILY SOCIOLOGIST [address] [place] [address] documented as of this encounter Visit Diagnoses Diagnosis Preop testing- Primary Preoperative examination, unspecified documented in this encounter Additional Health Concerns Infection Onset Date Last Indicated Resolved Time COVID - 19 03/10/2020 03/10/2020 03/16/2020 11:4 0 AM JAPANESE TUTOR Assessment Noted Time PHQ-9 Depression Total Score: 0 02/11/20 20 12:57 PM CDT documented as of this encounter Care Teams Taper/Finisher Relationship Specialty Start Date End Date Robby Torres [address] [place] [address] PCP - General Family Medicine 02/11/20 03/16/21 Scooter White DO [address] [place] [address] PCP - General Internal Medicine 03/17/21 06/22/23 Yon Gutierrez MD [address] [facility] [place] [address] PCP - General Family Medicine 06/23/23 Manda Singh MD Obstetrics & Gynecology 02/11/20 Malik Cates MD [address] [phone] Consulting Physician Endocrinology 12/13/21 Uilces Marino MD [address] [address] Consulting Physician Colon and Rectal Surgery 07/06/22 documented as of this encounter
--- OUTSIDE RECORDS SUMMARY | 2024-09-02 20:27 | XMS_ITS | Data Portability ---
Author Organization [facility] TJCathy Eldridge Address [address] 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 Role Phone ZO MORA OTHER Assessment [...] w/ auto diff 2018 019 [facility], [address] [place] [address], [place], [address], 9 06:40:13 ferritin, serum or plasma 2018 019 [facility], [address] [place] [address], [place], [address], 9 06:40:14 iron + total iron-bindin g capacity (TIBC), serum 2018 019 [facility], [address] [place] [address], [place], [address], 9 06:40:14 HIV 1+2 AB + HIV 1 p24 Ag, qualitative immunoassay , serum 2018 019 [facility], [address] [facility] [address], [place], [address], 9 07:12:01 HBsAg (hepatitis B surface Ag), EIA, serum 2018 019 [facility], [address], [place], [address], 9 07:12:02 hepatitis C Ab, signal-to-c utoff, serum or plasma 2018 019 [facility], [address], [place], [address], 9 07:12:01 RPR (rapid plasma reagin), serum 2018 019 [facility], [address] [facility], [place], [address], 9 07:12:00 hsv (1+2) igg Ab, serum 2018 019 [facility], [address] [facility], [facility], [place], [address], 9 07:12:00 CBC w/ auto diff 2018 019 [facility], [address] [facility], [place], [address], 9 07:11:59 Referral general surgeon referral 2018 019 LANA Moralez MD, [address] [facility] , [facility] [address], [place], [address], 9 12:38:24 ENT referral - Saw Dr. Mora --- need a second opinion. 2018 019 [facility], [address] [facility], [address], [place], [address], 9 17:55:21 Procedures None recorded. Surgeries None recorded. Imaging None recorded. Medication Orders ferrous sulfate 325 mg (65 mg iron) tablet [address] [facility], [address] [place], [address], 9 11:26:58 Mucinex 600 mg tablet, extended release [address] [facility] [address] [facility], [address] [place], [address], 9 00:24:12 ferrous sulfate 325 mg (65 mg iron) tablet [address] [facility] [address] [facility] [address], [address] [place], [address], 9 12:48:40 Tessalon Perles 100 mg capsule [address] [facility] [address] [facility], [address] [place], [address], 9 00:24:06 Patient TargetsNo targets recorded. Patient Instructions Encounter Date Encounter Id Patient Instructions Last Modified By Organization Details Last Modified Time 07/27/2018 [id number] upper respirator y infection (cold): care instructions Not available 07/27/2018 13:23:41 08/29/2018 [id number] hemorrhoids: car e instructions Not available 08/29/2018 16:13:52 anemia: care instructions Not available 08/29/2018 18:08:26 09/05/2018 [id number] Acute Sinusitis: Care Instructions Not available 09/05/2018 12:48:40 11/13/2018 [id number] hemorrhoids: car e instructions Not available 11/27/2018 00:17:15 02/13/2019 [id number] dizziness: care instructions Not available 02/13/2019 11:26:58 electrocardiogra m interpretation* ATHENAFAX Not available 03/13/2019 15:05:29 Reason for Referral ENT Referral for Cervical ly mphadenopathy Saw Dr. Mora --- need a second opinion. Referring Physician: Lucero Sandoval, Family Medicine, Encounter Date: 07/27/2018 General Surgeon Referral for Hemorrhoids Referring Physician: Ricardo Ramirez, [employer], Encounter Date: 08/29/2018 Results Created Date Observation Date Name Description Value Unit Range Abnormal Flag Note LastModifiedBy Organization Detail LastModifiedTime 07/04/19 19 07/05/2018 TSH + free T4, serum TSH 3.080 uIU/m L 0.450- 4.500 Not Available [facility] ([facility]) [address] [place], [address], 07/05/2018 09:23:03 07/04/19 19 07/05/2018 TSH + free T4, serum T4,free(dire ct) 1.06 NG/dL 0.82-1 .77 Not Available [facility] ([facility]) [address] [place], [address], 07/05/2018 09:23:03 07/04/19 19 07/04/2018 CBC w/ auto diff WBC 7.2 x10e3 /uL 3.4-10 .8 Not Available [facility] ([facility]) [address] [place], [address], 07/05/2018 09:23:03 07/04/19 19 07/04/2018 CBC w/ auto diff RBC 4.87 x10e6 /uL 3.77-5 .28 Not Available [facility] ([facility]) [address] [place], [address], 07/05/2018 09:23:03 07/04/19 19 07/04/2018 CBC w/ auto diff hemoglobin 11.5 g/dL 11.1-1 5.9 Not Available [facility] ([facility]) [address] [place], [address], 07/05/2018 09:23:03 07/04/19 19 07/04/2018 CBC w/ auto diff hematocrit 36.2 % 34.0-4 6.6 Not Available [facility] ([facility]) [address] [facility], [place], [address], 07/05/2018 09:23:03 07/04/19 19 07/04/2018 CBC w/ auto diff MCV 74 fL 79-97 below low normal Not Available [facility] ([facility]) [address] [facility], [place], [address], 07/05/2018 09:23:03 07/04/19 19 07/04/2018 CBC w/ auto diff MCH 23.6 pg 26.6-3 3.0 below low normal Not Available [facility] ([facility]) [address] [facility], [place], [address], 07/05/2018 09:23:03 07/04/19 19 07/04/2018 CBC w/ auto diff MCHC 31.8 g/dL 31.5-3 5.7 Not Available [facility] ([facility]) [address] [facility], [place], [address], 07/05/2018 09:23:03 07/04/19 19 07/04/2018 CBC w/ auto diff RDW 16.0 % 12.3-1 5.4 above high normal Not Available [facility] ([facility]) [address] [facility], [place], [address], 07/05/2018 09:23:03 07/04/19 19 07/04/2018 CBC w/ auto diff platelets 480 x10e3 /uL 150-37 9 above high normal Not Available [facility] ([facility]) [address] [facility], [place], [address], 07/05/2018 09:23:03 07/04/19 19 07/04/2018 CBC w/ auto diff neutrophils 64 % not estab. Not Available [facility] ([facility]) [address] [facility], [place], [address], 07/05/2018 09:23:03 07/04/19 19 07/04/2018 CBC w/ auto diff lymphs 28 % not estab. Not Available [facility] ([facility]) [address] [place], [address], 07/05/2018 09:23:03 07/04/19 19 07/04/2018 CBC w/ auto diff monocytes 6 % not estab. Not Available [facility] ([facility]) [address] [place], [address], 07/05/2018 09:23:03 07/04/19 19 07/04/2018 CBC w/ auto diff eos 1 % not estab. Not Available [facility] ([facility]) [address] [place], [address], 07/05/2018 09:23:03 07/04/19 19 07/04/2018 CBC w/ auto diff basos 1 % not estab. Not Available [facility] ([facility]) [address] [facility], [place], [address], 07/05/2018 09:23:03 07/04/1907/04/2018 CBC w/ auto diff immature cells SUGAR CHIPPER MACHINE OPERATOR Not Available [facility] ([facility]) [address] [place], [address], 07/05/2018 09:23:03 07/04/19 19 07/04/2018 CBC w/ auto diff neutrophils (absolute) 4.6 x10e3 /uL 1.4-7. 0 Not Available [facility] ([facility]) [address] [place], [address], 07/05/2018 09:23:03 07/04/19 19 07/04/2018 CBC w/ auto diff lymphs (absolute) 2.0 x10e3 /uL 0.7-3. 1 Not Available [facility] ([facility]) [address] [place], [address], 07/05/2018 09:23:03 07/04/19 19 07/04/2018 CBC w/ auto diff monocytes(ab solute) 0.5 x10e3 /uL 0.1-0. 9 Not Available [facility] ([facility]) [address] [place], [address], 07/05/2018 09:23:03 07/04/19 19 07/04/2018 CBC w/ auto diff eos (absolute) 0.1 x10e3 /uL 0.0-0. 4 Not Available [facility] ([facility]) [address] [facility], [place], [address], 07/05/2018 09:23:03 07/04/19 19 07/04/2018 CBC w/ auto diff baso (absolute) 0.1 x10e3 /uL 0.0-0. 2 Not Available [facility] ([facility]) [address] [facility], [place], [address], 07/05/2018 09:23:03 07/04/19 19 07/04/2018 CBC w/ auto diff immature granulocytes 0 % not estab. Not Available [facility] ([facility]) [address] [place], [address], 07/05/2018 09:23:03 07/04/19 19 07/04/2018 CBC w/ auto diff immature grans (abs) 0.0 x10e3 /uL 0.0-0. 1 Not Available [facility] ([facility]) [address] [place], [address], 07/05/2018 09:23:03 07/04/19 19 07/04/2018 CBC w/ auto diff NRBC SUGAR CHIPPER MACHINE OPERATOR Not Available [facility] ([facility]) [address] [place], [address], 07/05/2018 09:23:03 07/04/19 19 07/04/2018 CBC w/ auto diff hematology comments: SUGAR CHIPPER MACHINE OPERATOR Not Available [facility] ([facility]) [address] [facility], [place], [address], 07/05/2018 09:23:03 07/04/19 19 07/05/2018 CMP, serum or plasm a glucose 90 mg/dL 65-99 Not Available [facility] ([facility]) [address] [place], [address], 07/05/2018 09:23:04 07/04/19 19 07/05/2018 CMP, serum or plasm a BUN 9 mg/dL 6-20 Not Available [facility] ([facility]) [address] [place], [address], 07/05/2018 09:23:04 07/04/19 19 07/05/2018 CMP, serum or plasm a creatinine 0.66 mg/dL 0.57-1 .00 Not Available [facility] ([facility]) [address] [place], [address], 07/05/2018 09:23:04 07/04/19 19 07/05/2018 CMP, serum or plasm a eGFR if nonafricn AM 123 mL/mi n/1.7 3 >59 Not Available [facility] ([facility]) [address] [place], [address], 07/05/2018 09:23:04 07/04/19 19 07/05/2018 CMP, serum or plasm a eGFR if africn AM 142 mL/mi n/1.7 3 >59 Not Available [facility] ([facility]) [address] [place], [address], 07/05/2018 09:23:04 07/04/19 19 07/05/2018 CMP, serum or plasm a BUN/creatini ne ratio 14 9-23 Not Available [facility] ([facility]) [address] [place], [address], 07/05/2018 09:23:04 07/04/19 19 07/05/2018 CMP, serum or plasm a sodium 139 mmol/ L 134-14 4 Not Available [facility] ([facility]) [address] [facility] [place], [address], 07/05/2018 09:23:04 07/04/19 19 07/05/2018 CMP, serum or plasm a potassium 4.4 mmol/ L 3.5-5. 2 Not Available [facility] ([facility]) [address] [facility] [place], [address], 07/05/2018 09:23:04 07/04/19 19 07/05/2018 CMP, serum or plasm a chloride 102 mmol/ L 96-106 Not Available [facility] ([facility]) [address] [facility] [place], [address], 07/05/2018 09:23:04 07/04/19 19 07/05/2018 CMP, serum or plasm a carbon dioxide, total 23 mmol/ L 20-29 Not Available [facility] ([facility]) [address] [facility] [place], [address], 07/05/2018 09:23:04 07/04/1907/05/2018 CMP, serum or plasm a calcium 9.7 mg/dL 8.7-10 .2 Not Available [facility] ([facility]) [address] [facility] [place], [address], 07/05/2018 09:23:04 07/04/19 19 07/05/2018 CMP, serum or plasm a protein, total 8.1 g/dL 6.0-8. 5 Not Available [facility] ([facility]) [address] [facility] [place], [address], 07/05/2018 09:23:04 07/04/1907/05/2018 CMP, serum or plasm a albumin 4.6 g/dL 3.5-5. 5 Not Available [facility] ([facility]) [address] [facility] [place], [address], 07/05/2018 09:23:04 07/04/19 19 07/05/2018 CMP, serum or plasm a globulin, total 3.5 g/dL 1.5-4. 5 Not Available [facility] ([facility]) [address] [facility] [place], [address], 07/05/2018 09:23:04 07/04/1907/05/2018 CMP, serum or plasm a A/G ratio 1.3 1.2-2. 2 Not Available [facility] ([facility]) [address] [facility] [place], [address], 07/05/2018 09:23:04 07/04/1907/05/2018 CMP, serum or plasm a bilirubin, total 0.3 mg/dL 0.0-1. 2 Not Available [facility] ([facility]) [address] [place], [address], 07/05/2018 09:23:04 07/04/1907/05/2018 CMP, serum or plasm a alkaline phosphatase 68 IU/L 39-117 Not Available [facility] ([facility]) [address] [facility] [place], [address], 07/05/2018 09:23:04 07/04/1907/05/2018 CMP, serum or plasm a AST (SGOT) 20 IU/L 0-40 Not Available [facility] ([facility]) [address] [place], [address], 07/05/2018 09:23:04 07/04/1907/05/2018 CMP, serum or plasm a ALT (SGPT) 15 IU/L 0-32 Not Available [facility] ([facility]) [address] [place], [address], 07/05/2018 09:23:04 07/04/1907/05/2018 cytom egalo virus (cmv) igg+i gm Ab, serum cytomegalovi yung (CMV) Ab, IgG <0.60 U/mL 0.00-0 .59 Negat hayde <0.60 Equiv ocal 0.60 - 0.69 Posit hayde >0.69 Not Available [facility] ([facility]) [address] [facility], [place], [address], 07/05/2018 09:23:04 07/04/1907/05/2018 cytom egalo virus (cmv) igg+i gm Ab, serum cytomegalovi yung (CMV) Ab, IgM <30.0 AU/mL 0.0-29 .9 Negat hayde <30.0 Equiv ocal 30.0 - 34.9 Posit hayde >34.9 A posit hayde resul t is gener ally indic ative of acute infec tion, react ivati on or persi stent IgM produ ction . Not Available [facility] ([facility]) [address] [facility], [place], [address], 07/05/2018 09:23:04 07/04/1907/05/2018 RPR (rapi d plasm a reagi n), serum RPR Non Reacti ve non reacti ve Not Available [facility] ([facility]) [address] [facility], [place], [address], 07/05/2018 09:23:05 07/04/1907/05/2018 heter ophil e Ab, quali tativ e latex agglu tinat ion, serum mono qual w/rflx qn Negati ve negati ve The sensi tivit y of Heter ophil e antib srinivasan testi ng is 80-90 %. Epste in [place] IgM testi ng offer s highe r sensi tivit y. Not Available [facility] ([facility]) [address] [facility], [place], [address], 07/05/2018 09:23:06 08/30/1908/30/2018 CBC w/ auto diff WBC 7.4 x10e3 /uL 3.4-10 .8 Not Available [facility] ([facility]) [address] [facility], [place], [address], 08/30/2018 07:11:59 08/30/19 19 08/30/2018 CBC w/ auto diff RBC 4.51 x10e6 /uL 3.77-5 .28 Not Available [facility] ([facility]) [address] [place], [address], 08/30/2018 07:11:59 08/30/19 19 08/30/2018 CBC w/ auto diff hemoglobin 11.0 g/dL 11.1-1 5.9 below low normal Not Available [facility] ([facility]) [address] [place], [address], 08/30/2018 07:11:59 08/30/1908/30/2018 CBC w/ auto diff hematocrit 34.2 % 34.0-4 6.6 Not Available [facility] ([facility]) [address] [place], [address], 08/30/2018 07:11:59 08/30/1908/30/2018 CBC w/ auto diff MCV 76 fL 79-97 below low normal Not Available [facility] ([facility]) [address] [place], [address], 08/30/2018 07:11:59 08/30/1908/30/2018 CBC w/ auto diff MCH 24.4 pg 26.6-3 3.0 below low normal Not Available [facility] ([facility]) [address] [place], [address], 08/30/2018 07:11:59 08/30/1908/30/2018 CBC w/ auto diff MCHC 32.2 g/dL 31.5-3 5.7 Not Available [facility] ([facility]) [address] [place], [address], 08/30/2018 07:11:59 08/30/1908/30/2018 CBC w/ auto diff RDW 15.6 % 12.3-1 5.4 above high normal Not Available [facility] ([facility]) [address] [place], [address], 08/30/2018 07:11:59 08/30/19 19 08/30/2018 CBC w/ auto diff platelets 389 x10e3 /uL 150-37 9 above high normal Not Available [facility] ([facility]) [address] [facility], [place], [address], 08/30/2018 07:11:59 08/30/19 19 08/30/2018 CBC w/ auto diff neutrophils 59 % not estab. Not Available [facility] ([facility]) [address] [facility], [place], [address], 08/30/2018 07:11:59 08/30/19 19 08/30/2018 CBC w/ auto diff lymphs 31 % not estab. Not Available [facility] ([facility]) [address] [facility], [place], [address], 08/30/2018 07:11:59 08/30/1908/30/2018 CBC w/ auto diff monocytes 8 % not estab. Not Available [facility] ([facility]) [address] [facility], [place], [address], 08/30/2018 07:11:59 08/30/1908/30/2018 CBC w/ auto diff eos 1 % not estab. Not Available [facility] ([facility]) [address] [facility], [place], [address], 08/30/2018 07:11:59 08/30/1908/30/2018 CBC w/ auto diff basos 1 % not estab. Not Available [facility] ([facility]) [address] [facility], [place], [address], 08/30/2018 07:11:59 08/30/1908/30/2018 CBC w/ auto diff immature cells SUGAR CHIPPER MACHINE OPERATOR Not Available [facility] ([facility]) [address] [facility], [place], [address], 08/30/2018 07:11:59 08/30/19 19 08/30/2018 CBC w/ auto diff neutrophils (absolute) 4.4 x10e3 /uL 1.4-7. 0 Not Available [facility] ([facility]) [address] [place], [address], 08/30/2018 07:11:59 08/30/1908/30/2018 CBC w/ auto diff lymphs (absolute) 2.3 x10e3 /uL 0.7-3. 1 Not Available [facility] ([facility]) [address] [place], [address], 08/30/2018 07:11:59 08/30/1908/30/2018 CBC w/ auto diff monocytes(ab solute) 0.6 x10e3 /uL 0.1-0. 9 Not Available [facility] ([facility]) [address] [place], [address], 08/30/2018 07:11:59 08/30/1908/30/2018 CBC w/ auto diff eos (absolute) 0.1 x10e3 /uL 0.0-0. 4 Not Available [facility] ([facility]) [address] [place], [address], 08/30/2018 07:11:59 08/30/1908/30/2018 CBC w/ auto diff baso (absolute) 0.0 x10e3 /uL 0.0-0. 2 Not Available [facility] ([facility]) [address] [place], [address], 08/30/2018 07:11:59 08/30/1908/30/2018 CBC w/ auto diff immature granulocytes 0 % not estab. Not Available [facility] ([facility]) [address] [place], [address], 08/30/2018 07:11:59 08/30/1908/30/2018 CBC w/ auto diff immature grans (abs) 0.0 x10e3 /uL 0.0-0. 1 Not Available [facility] ([facility]) [address] [facility], [place], [address], 08/30/2018 07:11:59 08/30/1908/30/2018 CBC w/ auto diff NRBC SUGAR CHIPPER MACHINE OPERATOR Not Available [facility] ([facility]) [address] [facility], [place], [address], 08/30/2018 07:11:59 08/30/1908/30/2018 CBC w/ auto diff hematology comments: SUGAR CHIPPER MACHINE OPERATOR Not Available [facility] ([facility]) [address] [facility], [place], [address], 08/30/2018 07:11:59 08/30/1908/30/2018 hsv (1+2) igg Ab, [...] willy to HSV-1 . Not Available [facility] ([facility]) [address] [facility], [place], [address], 08/30/2018 07:12:00 08/30/1908/30/2018 hsv (1+2) igg Ab, [...] willy to HSV-2 . Not Available [facility] ([facility]) [address] [facility], [place], [address], 08/30/2018 07:12:00 08/30/19 19 08/30/2018 RPR (rapi d plasm a reagi n), serum RPR Non Reacti ve non reacti ve Not Available [facility] ([facility]) [address] [place], [address], 08/30/2018 07:12:00 08/30/1908/30/2018 HIV 1+2 AB + HIV 1 p24 Ag, quali tativ e immun oassa y, serum HIV screen 4TH generation wrfx Non Reacti ve non reacti ve Not Available [facility] ([facility]) [address] [place], [address], 08/30/2018 07:12:01 08/30/19 19 08/30/2018 hepat itis C Ab, signa l-to- cutof f, serum or plasm a HCV Ab <0.1 s/co_ ratio 0.0-0. 9 Not Available [facility] ([facility]) [address] [place], [address], 08/30/2018 07:12:01 08/30/19 19 08/30/2018 hepat itis C Ab, signa l-to- cutof f, serum or plasm a comment: Commen t Non react hayde HCV antib srinivasan scree n is consi stent with no HCV infec tion, unles s recen t infec tion is suspe cted or other evide nce exist s to indic ate HCV infec tion. Not Available [facility] ([facility]) [address] [place], [address], 08/30/2018 07:12:01 08/30/19 19 08/30/2018 HBsAg (hepa titis B surfa ce Ag), EIA, serum HBsAg screen Negati ve negati ve Not Available [facility] ([facility]) [address] [place], [address], 08/30/2018 07:12:02 02/14/2002/14/2019 CBC w/ auto diff WBC 7.5 x10e3 /uL 3.4-10 .8 Not Available [facility] ([facility]) [address] [facility], [place], [address], 02/14/2019 06:40:13 02/14/2002/14/2019 CBC w/ auto diff RBC 4.34 x10e6 /uL 3.77-5 .28 Not Available [facility] ([facility]) [address] [facility], [place], [address], 02/14/2019 06:40:13 02/14/2002/14/2019 CBC w/ auto diff hemoglobin 11.1 g/dL 11.1-1 5.9 Not Available [facility] ([facility]) [address] [facility], [place], [address], 02/14/2019 06:40:13 02/14/2002/14/2019 CBC w/ auto diff hematocrit 34.2 % 34.0-4 6.6 Not Available [facility] ([facility]) [address] [facility], [place], [address], 02/14/2019 06:40:13 02/14/2002/14/2019 CBC w/ auto diff MCV 79 fL 79-97 Not Available [facility] ([facility]) [address] [facility], [place], [address], 02/14/2019 06:40:13 02/14/2002/14/2019 CBC w/ auto diff MCH 25.6 pg 26.6-3 3.0 below low normal Not Available [facility] ([facility]) [address] [place], [address], 02/14/2019 06:40:13 02/14/2002/14/2019 CBC w/ auto diff MCHC 32.5 g/dL 31.5-3 5.7 Not Available [facility] ([facility]) [address] [facility], [place], [address], 02/14/2019 06:40:13 02/14/2002/14/2019 CBC w/ auto diff RDW 15.0 % 12.3-1 5.4 Not Available [facility] ([facility]) [address] [facility], [place], [address], 02/14/2019 06:40:13 02/14/2002/14/2019 CBC w/ auto diff platelets 372 x10e3 /uL 150-45 0 Not Available [facility] ([facility]) [address] [facility], [place], [address], 02/14/2019 06:40:13 02/14/2002/14/2019 CBC w/ auto diff neutrophils 61 % not estab. Not Available [facility] ([facility]) [address] [facility], [place], [address], 02/14/2019 06:40:13 02/14/2002/14/2019 CBC w/ auto diff lymphs 28 % not estab. Not Available [facility] ([facility]) [address] [facility], [place], [address], 02/14/2019 06:40:13 02/14/2002/14/2019 CBC w/ auto diff monocytes 8 % not estab. Not Available [facility] ([facility]) [address] [facility], [place], [address], 02/14/2019 06:40:13 02/14/2002/14/2019 CBC w/ auto diff eos 2 % not estab. Not Available [facility] ([facility]) [address] [facility], [place], [address], 02/14/2019 06:40:13 02/14/2002/14/2019 CBC w/ auto diff basos 1 % not estab. Not Available [facility] ([facility]) [address] [facility], [place], [address], 02/14/2019 06:40:13 02/14/2002/14/2019 CBC w/ auto diff immature cells SUGAR CHIPPER MACHINE OPERATOR Not Available [facility] ([facility]) [address] [facility], [place], [address], 02/14/2019 06:40:13 02/14/2002/14/2019 CBC w/ auto diff neutrophils (absolute) 4.7 x10e3 /uL 1.4-7. 0 Not Available [facility] ([facility]) [address] [facility], [place], [address], 02/14/2019 06:40:13 02/14/2002/14/2019 CBC w/ auto diff lymphs (absolute) 2.1 x10e3 /uL 0.7-3. 1 Not Available [facility] ([facility]) [address] [facility], [place], [address], 02/14/2019 06:40:13 02/14/2002/14/2019 CBC w/ auto diff monocytes(ab solute) 0.6 x10e3 /uL 0.1-0. 9 Not Available [facility] ([facility]) [address] [facility], [place], [address], 02/14/2019 06:40:13 02/14/2002/14/2019 CBC w/ auto diff eos (absolute) 0.1 x10e3 /uL 0.0-0. 4 Not Available [facility] ([facility]) [address] [place], [address], 02/14/2019 06:40:13 02/14/2002/14/2019 CBC w/ auto diff baso (absolute) 0.0 x10e3 /uL 0.0-0. 2 Not Available [facility] ([facility]) [address] [facility], [place], [address], 02/14/2019 06:40:13 02/14/2002/14/2019 CBC w/ auto diff immature granulocytes 0 % not estab. Not Available [facility] ([facility]) [address] [facility], [place], [address], 02/14/2019 06:40:13 02/14/2002/14/2019 CBC w/ auto diff immature grans (abs) 0.0 x10e3 /uL 0.0-0. 1 Not Available [facility] ([facility]) [address] [place] [address], [place], [address], 02/14/2019 06:40:13 02/14/2002/14/2019 CBC w/ auto diff NRBC SUGAR CHIPPER MACHINE OPERATOR Not Available [facility] ([facility]) [address] [place] [address], [place], [address], 02/14/2019 06:40:13 02/14/2002/14/2019 CBC w/ auto diff hematology comments: SUGAR CHIPPER MACHINE OPERATOR Not Available [facility] ([facility]) [address] [place] [address], [place], [address], 02/14/2019 06:40:13 02/14/2002/14/2019 iron + total iron- leta ng capac ity (TIBC ), serum iron bind.cap.(TI BC) 353 ug/dL 250-45 0 Not Available [facility] ([facility]) [address] [facility], [place], [address], 02/14/2019 06:40:14 02/14/2002/14/2019 iron + total iron- leta ng capac ity (TIBC ), serum UIBC 336 ug/dL 131-42 5 Not Available [facility] ([facility]) [address] [place] [address], [address], 02/14/2019 06:40:14 02/14/2002/14/2019 iron + total iron- leta ng capac ity (TIBC ), serum iron 17 ug/dL 27-159 below low normal Not Available [facility] ([facility]) [address] [facility], [place], [address], 02/14/2019 06:40:14 02/14/2002/14/2019 iron + total iron- leta ng capac ity (TIBC ), serum iron saturation 5 % 15-55 alert low Not Available [facility] ([facility]) [address] [facility], [place], [address], 02/14/2019 06:40:14 02/14/2002/14/2019 cristina tin, serum or plasm a ferritin, serum 7 NG/mL 15-150 below low normal Not Available [facility] ([facility]) [address] [facility], [place], [address], 02/14/2019 06:40:14 07/04/19 19 07/04/2018 XR, chest No observ ation record ed. [email or web address] [address] [place], [address], 07/06/2018 16:35:07 08/16/19 19 08/09/2018 CT, neck, soft tissu e, w/ contr ast No observ ation record ed. [address] [place], [address], 11/27/2018 00:09:00 08/17/19 19 08/16/2018 CT, sinus es, w/o contr ast No observ ation record ed. [address] [place], [address], 08/16/2018 13:21:28 Result Notes None recorded. Problems Name Problem SNOMED Code Status Onset Date Resolution Date Notes Provider Name and Address Organization Details Recorded Time Disorder of thyroid gland 60647888 Completed 201811/26/2018 DIONNE New [facility] 9 00:12:22 Cervical lymphade nopathy 512861457 Active 2018 DIONNE [facility] 9 11:15:19 Upper respirat ory infectio n 61895458 Completed 201811/13/2018 [place] [facility] 9 11:05:53 Mean corpuscu lar volume below referenc e range 810622254 Active 2018 [place] [facility] 9 12:49:50 Acute sinusiti s 71893856 Completed 201811/13/2018 [place] [facility] 9 11:05:49 History of Helicoba cter pylori infectio n 94427004777 420388 Active 2018 GI [place] [facility] 9 00:05:39 Chronic gastriti s 5412856 Active 2018 EGD - H pylori, GI [place] [facility] 9 00:06:03 Hemorrho ids 71220042 Active 2018 Gen sx planning for hemorrho idectomy [place] [facility] 9 00:06:27 Dizzines s 565983446 Active 2018 [place] [facility] 9 11:29:10 Infectiv e vaginiti s 119863436 Active Radha Garcia [place] [facility] 6 11:25:47 Infectiv e vaginiti s 700813157 Completed Shahrzad Barrera [place] [facility] 5 09:18:25 Maternal care for diminish ed movement s Active Radha [place] [facility] 6 11:25:47 Maternal care for diminish ed movement s Completed Shahrzad Barrera [place] [facility] 5 09:18:25 Breastfe eding painful 859287873 Active Radha Quicks [place] [facility] 6 11:25:47 Pain in pelvis 00024476 Active Radha [place] [facility] 6 11:25:47 Vaginal discharg e 569721091 Active white Radha moreno, [facility] 6 11:25:47 Herpes simplex type 1 infectio n 248757182 Active Valtrex at 36 weeks Radha moreno [facility] 6 11:25:47 Problem Notes None recorded. Procedures Surgical History Date Name Laterality Status Provider Name and Address Organization Details Recorded Time 05/08/19 16 Cholecystectomy completed Radha Garcia [facility] 11/03/2015 11:25:48 01/15/20 15 IUD Insertion completed Ricardo Isauro [facility] 01/14/2015 12:23:57 04/18/20 12 Date of Last Pap Smear completed Mily Parsons [place] [facility] 05/06/2014 16:14:24 05/08/19 10 Appendectomy completed Maida Do [place] [facility] 06/17/2014 11:12:04 Imaging Results Imaging Date Name Status LastModified by Organiz ation Details LastModified Time 07/04/2018 XR, chest completed [email or web address] [address] [place], [address], 07/06/2018 16:35:07 08/09/2018 CT, neck, soft tissue, w/ contrast completed [address] [place], [address], 11/27/2018 00:09:00 08/16/2018 CT, sinuses, w/o contrast completed [address] [place], [address], 08/16/2018 13:21:28 Procedure Notes None recorded. Medical [...] Updated DateTime 9 162.56 cm 36.7 kg/m2 99547.0 4 g 97.9 [degF] 16 /min 76 /min 124 mm[Hg] 86 mm[Hg] Jenelle Groves MA [facility] 9 12:24:37 Date Recorded Body height Body mass index (BMI) Body weight Systolic blood pressure Diastolic blood pressure Provider Name and Address Organization Details Last Updated DateTime 08/29/2018 162.56 cm 36.2 kg/m2 45089.99 g 130 mm[Hg] 94 mm[Hg] Shahrzad Barrera MA [facility] 9 11:38:34 Date Recorded Body height Body mass index (BMI) Body weight Body temperature Heart rate Respiratory rate Systolic blood pressure Diastolic blood pressure Provider Name and Address Organization Details Last Updated DateTime 9 162.56 cm 36 kg/m2 38643.6 1 g 98.3 [degF] 84 /min 20 /min 132 mm[Hg] 84 mm[Hg] Jenelle Groves MA [facility] 9 12:15:41 Date Recorded Body height Body mass index (BMI) Body weight Body temperature Heart rate Respiratory rate Systolic blood pressure Diastolic blood pressure Provider Name and Address Organization Details Last Updated DateTime 9 162.56 cm 35.5 kg/m2 83662.9 7 g 98.3 [degF] 70 /min 18 /min 130 mm[Hg] 80 mm[Hg] Jenelle Groves MA [facility] 9 10:43:45 Date Recorded Body height Body mass index (BMI) Body weight Heart rate Respiratory rate Body temperature Systolic blood pressure Diastolic blood pressure Provider Name and Address Organization Details Last Updated DateTime 9 162.56 cm 36.3 kg/m2 20496.7 9 g 86 /min 20 /min 98.3 [degF] 130 mm[Hg] 82 mm[Hg] Jenelle Groves [place] [facility] 9 11:02:19 Social History Question [...] SNOMED-CT Code Diagnosis ICD10 Code Diagnosis Note [id number] BRENDEN Keene ([facility]) [address] [place] [address] 05/06/2014 15:15:04 05/07/2014 13:43:54 [id number] test positive [id number] Alia Husain ([facility]) [address] [place] [address] 05/22/2014 14:23:39 05/22/2014 15:25:47 [id number] BRENDEN Hameed ([facility]) [address] [place] [address] 06/17/2014 10:44:30 06/17/2014 15:08:09 [id number] Alia Husain ([facility]) [address] [place] [address] 07/15/2014 10:26:03 07/16/2014 09:23:26 Normal [id number] Alia [facility] ([facility]) [address] [facility] [place] [address] 08/12/2014 09:35:12 08/12/2014 12:42:08 Normal [id number] Lalo Womenjavi ([facility]) [address] [facility] [place] [address] 08/26/2014 11:56:11 08/27/2014 16:10:13 [id number] Alia Vanegas [facility] ([facility]) [address] [facility] [place] [address] 09/09/2014 14:42:01 09/09/2014 15:30:17 [id number] Lalo Womenjavi ([facility] 122) [address] [facility] [place] [address] 09/23/2014 09:49:09 09/23/2014 15:23:49 [id number] BRENDEN Mar [facility] ([facility]) [address] [facility] [place] [address] 10/07/2014 10:59:01 10/07/2014 11:38:07 [id number] Ricardo Box [place] [facility] ([facility]) [address] [facility] [place] [address] 10/21/2014 09:36:51 10/23/2014 12:51:20 [id number] Alia [facility] ([facility]) [address] [facility] [place] [address] 11/04/2014 09:43:59 11/04/2014 14:45:01 [id number] Normal [id number] BRENDEN Keene [facility] ([facility]) [address] [facility] [place] [address] 11/11/2014 11:18:25 11/11/2014 14:54:02 [id number] Maternal c are for diminished movements 161294845 [id number] Alia [facility]as [facility] ([facility]) [address] [place] [address] 11/18/2014 10:46:59 11/18/2014 11:58:55 [id number] Bianka Fletcher [facility] [facility] ([facility]) [address] [place] [address] 11/24/2014 08:49:50 11/24/2014 10:29:51 [id number] Ricardo Box [facility] ([facility]) [address] [place] [address] 12/24/2014 09:05:47 12/24/2014 12:04:57 care [id number] BRENDEN Chan [facility] ([facility]) [address] [place] [address] 01/14/2015 11:47:27 01/14/2015 12:33:02 care [id number] Uses contraception [id number] Alia [facility]as [facility] ([facility]) [address] [place] [address] 01/19/2015 15:46:51 01/20/2015 09:49:17 IUD check 549574526 [id number] Madyson Obdulio [facility] ([facility] [address]) [address] [place] [address] 02/11/2015 10:38:39 02/18/2015 18:08:10 IUD check 276248917 Z30.431 [id number] Joan Blas [facility] ([facility]) [address] [place] [address] 11/03/2015 11:00:12 11/03/2015 14:33:42 detection examination 73373788 Z32.00 IUD check 042197470 Z30. 278 [id number] Lucero Vanegas 14 IM [address] [place] [address] 07/04/2018 09:50:09 07/04/2018 16:26:43 Cervical lymphadenopathy 379791494 R59.0 Had a cough since 02/2018, on and off No traveling. No cat. Weight stable overall. Fatigue - despite sleeping. No dental issues. No focal weakness. Sweaty at times. Irregular periods. Neuro intact. ENT will do US +/- biopsy soon. Labs. Check for mono, syphilis, CMV, CXR. RTC 3mo Disorder o f thyroid gland 96887081 E07.9 Had a cough since 02/2018, on and off. Check TSH [id number] Lucero Vanegas 14 IM [address] [facility] [place] [address] 07/27/2018 12:09:33 07/31/2018 15:49:44 Cervical lymphadenopathy 702114316 R59.0 Had a cough since 02/2018, on [...] second ENT opinion. Upper resp iratory infection 68607192 J06.9 Strept and Flu negative. Exam unremarkab le. Conservati ve management . [id number] MD Justin Chambersn 14 OB [address] [facility] [place] [address] 08/29/2018 11:23:12 08/30/2018 09:21:21 Gynecologic examination 49321582 Z01.419 CBE and pelvic exam performedP t is on her menstrual cycle, will RTC for pap smear Venereal d isease screening 468791423 Z11.3 Anemia 903623434 D64.9 Hemorrhoids 65800397 K64 .9 [id number] Lucero Vanegas 14 IM [address] [facility] [place] [address] 09/05/2018 12:08:49 09/06/2018 10:44:23 Acute sinusitis 76038385 J01.90 4 days, worsening coughs, chest congestion . Exam sinusitis. Already on antihistam althea, PPI, Augmentin with ENT. Try home Flonase, add mucinex. Mean corpu scular volume below reference range 770038830 R71.8 MCV still low with Acetylene Gas Compressor. Heavy periods on paraguard with distribution lead , still heavy. FeS - taking two tab now. Inc to three - RTC 2mo for ferritin check. [id number] Lucero Lori Vanegas 14 IM [address] [facility] [place] [address] 11/13/2018 10:37:12 11/27/2018 11:36:00 Cervical lymphadenopathy 292283130 R59.0 06/2018: Had a cough since 02/2018, [...] done biopsy - result benign. Chronic gastritis 698643 9 K29.50 Followed by GI.Chronic gastritic, H pylori infection - pt was treated. Per pt, her esophagus was also dilated. Hemorrhoids 69614294 K64 .9 Followed by Gen sx - candidate for hemorrhoid ectomy. History of Helicobacter pylori infection 3521962568 [id number] Z86.19 Followed by GI - treated [id number] Lucero Vanegas 14 IM [address] [facility] [place] [address] 02/13/2019 10:52:03 02/14/2019 08:35:16 Dizziness 260356773 R42 Thyroid was low with Acetylene Gas Compressor recently - pt will be rechecked by [...] Steele Member ID Guarantor Name 07/27/2018 1 [place] [facility] Yessica Ray [id number] Yessica Corzine 08/29/2018 1 [place] [facility] Yessica Ray [id number] Yessica Corzine 09/05/2018 1 [facility] [place] Yess[place] Ray [id number] Yessica Corzine 11/13/2018 1 [facility] [place] Yess[place] Ray [id number] Yessica Corzine 02/13/2019 2 [place] [facility] Yessica Ray [id number] Yessica Corzine 02/13/2019 1 [facility] [id number] Luis Antonio Rowe Corzine [id number] Yessica Corzine Notes Date Note Type Note [...] Ricardo Ramirez MD Attn: Accounting,[address] [facility], [place], [address], [place] [facility] 08/29/2018 16:15:04 09/05/2018 text/html 23yo female is h ere for coughs. Coughs Congested chest 4 days of increase Wheeze Sore throat No fever, chills, muscle ache Saw ENT - on Tessalon perles, Augmentin for 1mo, Probiotic, Omeprazole She is on Minerva and Benadryl Lucero moreno [facility] 09/05/2018 12:50:10 11/13/2018 text/html 23yo [...] Was planning for hemorrhoidectomy Lucero Vacamary moreno [facility] 11/27/2018 00:24:29 02/13/2019 text/html 24yo [...] Denies room spinning. Lucero Sandoval [facility] [place] [place] - [facility] 02/13/2019 11:29:52 OBGyn Episode Ob Episode Information Episode Created Date Number of Fetuses Patient Bloodtype Patient rh Status Prepregnancy Weight lbs Domestic Partner Domestic Partner Phone Father Name Horseshoer Status 05/06/20 14 1 A Positive Luis Antonio Mo CLOSED Fetus Data First Name Last Name Admitted to NICU Weight (g) Sex Living Outcome Pediatric Complications Fetus ID Race Codes Race Delivery Type CHASITY LILLY NE false 4309.12 4 F Full Term 5386 2106-3 White Vaginal Problems Problem Notes Problem Name Start Date End Date Resolution Snomed Code Not e Infective vaginitis 397804463 Maternal care for diminished movements 970513889 Darren Calculation Initial Darren Date Initial Exam [...] Type Weight in lbs Pre/Post Dialysis Refused 203.981931165094 BP Diastolic BP Location Tested BP Systolic BP Type 64 L arm 118 sitting Fetus Heart Rate Present Fetus Movement Comments Flowsheet Date 05/22/2014 Mckinney Score Blood Edema Fundus Height Fundus Units Glucose Ketones Leukocytes Nitrite Labor Signs Protein Cervic Dilation Cervic Effacement Cervic Station neg none none negative neg Type Weight in lbs Pre/Post Dialysis Refused 198.881030446652 BP Diastolic BP Location Tested BP Systolic [...] Type Weight in lbs Pre/Post Dialysis Refused 164.12215842293 BP Diastolic BP Location Tested BP Systolic [...] Type Weight in lbs Pre/Post Dialysis Refused 201.574789496760 BP Diastolic BP Location Tested BP Systolic [...] Type Weight in lbs Pre/Post Dialysis Refused 203.94529820987 BP Diastolic BP Location Tested BP Systolic BP Type 68 128 Fetus Heart Rate Present A 142 Present Fetus Movement A Yes Comments 28 weeks today Flowsheet Date 08/26/2014 Mckinney Score Blood Edema Fundus Height Fundus Units Glucose Ketones Leukocytes Nitrite Labor Signs Protein Cervic Dilation Cervic Effacement Cervic Station 26 cm none Type Weight in lbs Pre/Post Dialysis Refused 203.81993469525 BP Diastolic BP Location Tested BP Systolic BP Type 74 L arm 122 sitting Fetus Heart Rate Present A 146 Present Fetus Movement A Yes Comments Flowsheet Date 09/09/2014 Mckinney Score Blood Edema Fundus Height Fundus Units Glucose Ketones Leukocytes Nitrite Labor Signs Protein Cervic Dilation Cervic Effacement Cervic Station 30 cm none Type Weight in lbs Pre/Post Dialysis Refused 206.324462899647 BP Diastolic BP Location Tested BP Systolic BP Type 60 L arm 120 sitting Fetus Heart Rate Present A 154 Present Fetus Movement A Yes Comments Flowsheet Date 09/23/2014 Mckinney Score Blood Edema Fundus Height Fundus Units Glucose Ketones Leukocytes Nitrite Labor Signs Protein Cervic Dilation Cervic Effacement Cervic Station 32 cm none Type Weight in lbs Pre/Post Dialysis Refused 205.183608027829 BP Diastolic BP Location Tested BP Systolic BP Type 68 110 Fetus Heart Rate Present A 155 Fetus Movement A Yes Comments Flowsheet Date 10/07/2014 Mckinney Score Blood Edema Fundus Height Fundus Units Glucose Ketones Leukocytes Nitrite Labor Signs Protein Cervic Dilation Cervic Effacement Cervic Station none Type Weight in lbs Pre/Post Dialysis Refused 208.733290801562 BP Diastolic BP Location Tested BP Systolic BP Type 78 110 sitting Fetus Heart Rate Present A 154 Fetus Movement A Yes Comments growth scan ordered Flowsheet Date 10/21/2014 Mckinney Score Blood Edema Fundus Height Fundus Units Glucose Ketones Leukocytes Nitrite Labor Signs Protein Cervic Dilation Cervic Effacement Cervic Station 37 cm none Type Weight in lbs Pre/Post Dialysis Refused 213.148994840199 BP Diastolic BP Location Tested BP Systolic BP Type 72 118 sitting Fetus Heart Rate Present A 140 Present Fetus Movement A Yes Comments gbs today. Flowsheet Date 11/04/2014 Mckinney Score Blood Edema Fundus Height Fundus Units Glucose Ketones Leukocytes Nitrite Labor Signs Protein Cervic Dilation Cervic Effacement Cervic Station 37 cm none Type Weight in lbs Pre/Post Dialysis Refused 216.635617232832 BP Diastolic BP Location Tested BP Systolic [...] Type Weight in lbs Pre/Post Dialysis Refused 217.414135360902 BP Diastolic BP Location Tested BP Systolic [...] Type Weight in lbs Pre/Post Dialysis Refused 221.667335125057 BP Diastolic BP Location Tested BP Systolic [...] Type Weight in lbs Pre/Post Dialysis Refused 223.600251537478 BP Diastolic BP Location Tested BP Systolic [...] Estimated Date of Delivery false Thalassemia (Cypriot, Romansh, Mediterranean, Or Background): MCV < 80 false Neural Tube Defect (Meningom yelocele, Spina Bifida, Or Anencephaly) false Congenital Heart Defect false Down Syndrome false Curt-Sachs (eg, Cheondoism, Cajun , Bengali-Moffat) false Yung Disease false Sickle Cell Disease Or Trait () false Hemophilia Or Other Blood Disorders false Muscular Dystrophy false Cystic Fibrosis false Yellowstone's Chorea false Mental Retardation/Autism false Other Inherited [...] Domestic Partner Domestic Partner Phone Father Name Horseshoer Status 06/17/19 15 1 CLOSED Fetus Data First Name Last Name Admitted to NICU Weight (g) Sex Living Outcome Pediatric Complications Fetus ID Race Codes Race Delivery Type 3515.33 8 F Full Term [id number] Vaginal Darren Calculation Initial Darren Date Initial [...]
--- OUTSIDE RECORDS SUMMARY | 2024-09-02 20:27 | XMS_ITS | Continuity of Care Document ---
Author Organization [facility] Address [address] [place] [address] [place] [address] Phone Care Team Providers Care Klystrom Tube Tester Name Role Phone Robby Torres MD Unavailable [...] Diagnoses Date Provider Providers Copied on Encounter [facility], [address] [facility] [address] [place] [id number], [place] tel:[phone] [facility] No Information 1 Brian Bustamante. [address], [place], [place], [address] , [place]. tel:[phone] [facility], [address], [place], [place], [address], [place] tel:[phone] [facility] No Information 0 Brian Bustamante. [address], [place], [place], [address] , [place]. tel:[phone] OFFICE/OUTPA TIENT VISIT, [facility], [address], [place], [place], [address], [place] tel:[phone] [facility] anxiety1 (chief complaint) Generalized Anxiety DisorderHypothyroid ism 0 Brian Bustamante. [address], [place], [place], [address] , [place]. tel:[phone] Referring Provider: Robby Torres [address], [place], [place], [address]. tel:[phone] OFFICE/OUTPA TIENT VISIT, [facility], [address], [place], [place], [address], [place] tel:[phone] [facility] anxiety1 (chief complaint) Generalized Anxiety DisorderGoiter 0 Brian Bustamante. [address], [place], [place], [address] , [place]. tel:[phone] Referring Provider: Robby Torres [address], [place], [place], [address]. tel:[phone] OFFICE/OUTPA TIENT VISIT, [facility], [address], [place], [place], [address], [place] tel:[phone] [facility] thyroid nodule1 (chief complaint) anxiety1 (chief complaint) GoiterGeneralized Anxiety Disorder 0 Brian Menendez [address], [place], [place], [address] , [place]. tel:[phone] Referring Provider: Gissel Banks [address], [place], [place], [address]. tel:[phone] OFFICE/OUTPA TIENT VISIT, [facility], [address], [place], [place], [address], [place] tel:[phone] [facility] anxiety1 (chief complaint) iron1 (chief complaint) thyroid1 (chief complaint) Disorder of iron metabolism, unspecifiedGoiterGe neralized Anxiety Disorder Lonnie-0 0 Brian Bustamante. [address], [place], [place], [address] , [place]. [phone] Referring Provider: Gissel Banks [address], [place], [place], [address]. tel:[phone] OFFICE/OUTPA TIENT VISIT, [facility], [address], [place], [place], [address], [place] tel:[phone] [facility] ankle pain1 (chief complaint) fatigue1 (chief complaint) thyroid1 (chief complaint) anemia1 (chief complaint) Pain in right ankleFatigueAnemiaG oiter 0 Brian Bustamante. [address], [place], [place], [address] , [place]. tel:[phone] Referring Provider: Gissel Banks [address], [place], [place], [address]. tel:[phone] OFFICE/OUTPA TIENT VISIT, [facility], [address], [place], [place], [address], [place] tel:[phone] [facility] rash1 (chief complaint) Allergic contact dermatitis due to plants, except food Aug- 0 Brian Bustamante. [address], [place], [place], [address] , [place]. [phone] Referring Provider: Gissel Banks [address], [place], [place], [address]. tel:[phone] OFFICE/OUTPA TIENT VISIT, [facility], [address], [place], [place], [address], tel:[phone] [facility] thyroid1 (chief complaint) ferritin1 (chief complaint) IgA (chief complaint) fatigue1 (chief complaint) GoiterDisorder of iron metabolism, unspecifiedVitamin D deficiency, unspecifiedRaised level of immunoglobulinAnemi aH. pylori as the cause of diseases classified elsewhereFatigue 0 Brian Bustamante. [address] [facility] [place], [address] , . tel:[phone] Referring Provider: Gissel Banks [place], [place], [address]. tel:[phone] PREV VISIT, NEW, AGE 18-39 [facility], [address] [place] [address] [employer] [place], [address], tel:[phone] [facility] PHysical (chief complaint) Encntr for general adult medical exam w/o abnormal findings 0 Brian Bustamante. [address], [facility] [address], [place], [place], [address] , [place]. tel:[phone] Referring Provider: Robby Torres [address] [place] [address], [id number]. tel:[phone] Family History Family Member Type Diagnosis Age [...] Referral Referred To: Jean Carlos Bolañosshira Joe [address] [facility]
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
--- OUTSIDE RECORDS SUMMARY | 2024-09-02 20:27 | XMS_ITS | Data Portability ---
Author Organization [facility] Address [address] [place] [address] [place] [address] Care Team Providers Care Communication Specialist Name Role Phone [facility] EDUIN HAMMONDS [facility] [phone] JILLIAN LAO Primary Care Provider Assessment Encounter Date Assessment Date Assessment LastModified by Organization Details LastModified Time 07/31/2024 07/31/2024 Patient is _19__weeks . Discussed plan. [email or web address] Not available 07/31/2024 18:07:16 08/28/2024 08/28/2024 Patient is ___weeks . Discussed plan. [email or web address] Not available 08/28/2024 14:30:40 08/29/2024 08/29/2024 Patient is _24__weeks . Discussed plan. [email or web address] Not available 08/30/2024 09:21:55 Plan of Treatment Reminders Order Date Submit Date Provider Last Modified By Organization Details Last Modified Time Details Appointments OB ROUTINE 2024 01:00P Kezia Bryant CNM Not available Not available Not available Lab None recorded. Referral None recorded. Procedures None recorded. Surgeries None recorded. Imaging US, obstetric , limited 2024 025 [email or web address] [place], [address], [address], [place], [address], 08/22/2024 18:27:06 Medication Orders cyclobenz aprine 5 mg tablet 2024 025 [id number], [address], [place], [place], [id number], 08/09/2024 13:59:24 Protonix 40 mg tablet,de layed release 2024 025 [id number], [address], [place], [place], [id number], 07/31/2024 17:57:39 Patient TargetsNo targets recorded. Patient InstructionsNo instructions [...] Resul ting Lab: [facility] [address] [facility] [address] Tel: CULTU RE ----- ----- ----- --- No growt h in 1 day (dete ction level of 10,00 0 colon ies / ml.) Not Available [facility] (Lab) [address] [facility], [place], [address], 07/10/2024 05:36:59 07/13/1907/12/2024 US, obste tric, limit ed No observ ation record ed. [address], [place], [address], 07/12/2024 17:50:02 08/09/1908/08/2024 XR, chest , 1 view No observ ation record ed. [address], [place], [address], 08/12/2024 15:18:19 08/10/1907/31/2024 US, obste tric, follo w-up No observ ation record ed. [email or web address] [facility] [address] [place], [address], 08/20/2024 12:19:45 08/10/19 25 07/31/2024 US, obste tric, follo w-up No observ ation record ed. [email or web address] [facility] [address] [place], [address], 08/12/2024 22:49:50 08/20/1908/08/2024 ilya r monit or No observ ation record ed. [address] [address], [place], [address], 08/21/2024 11:36:44 08/20/19 25 08/08/2024 ilya r monit or No observ ation record ed. [facility] (Pulmonary) [address] [place] [address], [address], 08/28/2024 13:01:57 08/23/19 25 08/22/2024 US, obste tric, follo w-up No observ ation record ed. [email or web address] [address], [place], [address], 08/27/2024 13:26:37 08/23/19 25 08/22/2024 US, obste tric, limit ed No observ ation [facility]. [facility] [address], [place], [address], 08/22/2024 13:56:22 08/23/19 25 08/22/2024 US, obste tric, limit ed No observ ation record ed. [email or web address] [address], [place], [address], 08/28/2024 22:09:02 08/28/19 25 08/27/2024 US, kidne y No observ ation record ed. [email or web address] [facility] [address], [place], [address], 08/28/2024 18:26:00 08/28/19 25 08/27/2024 imagi ng/di agnos tic resul t No observ ation record ed. LANA [facility] [address] [place], [address], 08/27/2024 15:19:42 08/28/19 25 08/27/2024 US, obste tric, follo w-up No observ ation record ed. [address] [facility] [address] [place], [address], 08/28/2024 18:26:00 Result Notes None recorded. Problems Name Problem SNOMED Code Status Onset Date Resolution Date Notes Provider Name and Address Organization Details Recorded Time Pregnanc y 42122261 Completed 202106/09/2022 Kenyetta Solano null, [facility] 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 3 15:14:45 Hypothyr oidism 94954449 Completed Eli Bohnenstieh l [facility], [facility] 3 15:14:45 Antenata l care: history of infertil ity 266218772 Completed Eli Bohnenstieh l null, [facility] 3 15:14:46 Group B Streptoc occus carrier 1565271844 103 Completed bacteriu berta Eli Bohnenstieh l null, [facility] 3 15:14:45 Maternal obesity complica ting pregnanc y, childbir th and the puerperi um, antepart um 7653218277 07 Completed BMI 39- ante testing at 37w Elikristin alvarado tiffanie, [facility] 3 15:14:46 Chronic hyperten allison in obstetri c context 9886892 Completed procardi a , baseline labs, ASA Eli alvarado tiffanie, [facility] 3 15:14:46 Placenta circumva llata 6304546 Completed Serial growth u/s Eli alvarado null, [facility] 3 15:14:45 Pre-ecla mpsia 829132600 Completed Eli alvarado [facility], [facility] 3 15:14:45 Abnormal cervical Papanico laou smear 407234500 Active 2023 3 lgsil HPV high risk 1 ascus HPV high risk Kenyetta Solano [facility], [facility] 4 11:59:57 Herpes simplex 31950783 Active 2024 Kenyetta Solano [facility], [facility] 5 16:40:53 Human papillom a virus infectio n 917145780 Active 2024 Kenyetta Solano [facility], [facility] 5 16:40:59 Endometr iosis (clinica l) 460579401 Active 2024 Kenyetta Solano [facility], [facility] 5 16:41:22 Pregnanc y 31767905 Active 2024 Kenyetta Solano [facility], [facility] 5 16:03:06 Twin pregnanc y 11414162 Active 38 wk delivery antenata l testing @ 32wks per [facility] Schedule d rpt 08/27 us ONLY Tabatha moreno, [facility] 5 12:20:16 Antenata l care: history of infertil ity 812744834 Active Peter Bryant CNM [address], [place], [address], [facility] 5 13:48:37 Past pregnanc y history of pre-ecla mpsia 1231673010 48878 Active bASA x2 Tabatha moreno, [facility] 5 17:10:40 Large for gestatio n age fetus 730746619 Active less then 30 sec shoulder dystocia Peter Bryant CNM [address], [place], [address], [facility] 5 13:51:09 Past pregnanc y history of shoulder dystocia 524931934 Active Peter Bryant CNM [address], [place], [address], [facility] 5 13:52:04 Chronic hyperten allison in obstetri c context 3756543 Active Peter Bryant CNM [address], [place], [address], [facility] 5 13:52:55 Palpitat ions 36056066 Active Holter monitor faxed to [facility] nt Cardiolo gy 3 Tabatha moreno, [facility] 5 14:05:23 Palpitat ions 37937252 Active Holter monitor faxed to [facility] nt Cardiolo gy 324 Tabatha moreno, [facility] 5 14:05:23 Migraine 16195695 Active magnesiu m, Excedrin tension, sumatrip tatum Tabatha moreno, [facility] 5 17:11:50 Migraine 49032121 Active magnesiu m, Excedrin tension, edita tatum Tabatha Panchito moreno, [facility] 5 17:11:50 Finding of general energy 833362380 Completed 201807/28/2020 Fatigue; Recorded Elsewher e: No Locat ion: Chaya arevalo [facility] S ource: EHR Lever Tender mark: N Practi ce ID: 0001 Emmanuel lable Time: 10:45:00 AM Messi Garcia MD [address], [place], [address], [facility] 15:00:00 Acute vaginiti s 49507401 Completed 201807/28/2020 Vaginiti s;Record ed Elsewher e: No Locat ion[facility] [place] [facility] S ource: EHR Lever Tender mark: N Practi ce ID: 0001 Emmanuel lable Time: 10:45:00 AM Messi Garcia MD [address], [place], [address], [facility] 15:00:04 Removal of intraute rine device Completed 201807/28/2020 Encounte r for removal of IUD;Earl rded Elsewher e: No [facility]at ion[facility] [place] [facility] Lever Tender mark: N Practi ce ID: 0001 Emmanuel lable Time: 10:45:00 AM Messi Garcia MD [address], [place], [address], [facility] 15:00:08 Problem Notes None recorded. Procedures Surgical History Date Name Laterality Status Provider Name and Address Organization Details Recorded Time Laparoscopy completed Kenyetta Solano [facility] 05/10/2024 16:42:07 Date of Last Pap Smear completed Kenyetta Solano [facility] 08/16/2023 12:00:08 024 procedure on ear completed Kenyetta [facility] 08/16/2023 12:01:09 023 Colposcopy completed Peter Bryant CNM [address], [place], [address], [facility] 06/15/2022 16:59:00 023 Colposcopy completed [facility] 06/15/2022 16:38:21 023 Colposcopy completed [facility] 06/15/2022 16:38:49 022 intrauterine artificial insemination completed [facility] 06/26/2021 09:20:58 021 intrauterine artificial insemination completed [facility] 06/17/2021 12:15:01 021 intrauterine artificial insemination completed [facility] 06/17/2021 12:14:55 021 intrauterine artificial insemination completed [facility] 06/17/2021 12:14:45 021 intrauterine artificial insemination completed [facility] 06/17/2021 12:14:39 021 LAPAROSCOPY, DIAGNOSTIC (SURG) completed [facility] 08/19/2020 14:04:12 020 completed [facility] 10/01/2020 16:23:53 020 Colonoscopy completed [facility] 01/22/2021 10:59:09 019 procedure on neck completed [facility] 12/25/2019 11:25:51 019 hemorrhoidectomy completed [facility] 12/25/2019 11:24:57 016 cholecystectomy completed [facility] 07/16/2021 17:21:15 010 Appendectomy completed [facility] 12/25/2019 11:24:44 Imaging Results Imaging Date Name Status LastModified by Organiz ation Details LastModified Time 07/12/2024 US, obstetric, limited completed [email or web address] [address], [place], [address], 07/12/2024 17:50:02 08/08/2024 XR, chest, 1 view completed [address], [address], 08/12/2024 15:18:19 07/31/2024 US, obstetric, follow-up completed [facility] [address], [address], 08/20/2024 12:19:45 07/31/2024 US, obstetric, follow-up completed [email or web address] [facility] [address], [address], 08/12/2024 22:49:50 08/08/2024 holter monitor completed [address], [address], 08/21/2024 11:36:44 08/08/2024 holter monitor completed [facility] (P[facility]) [address] [place] [address], [address], 08/28/2024 13:01:57 08/22/2024 US, obstetric, follow-up completed [email or web address] [address], [place], [address], 08/27/2024 13:26:37 08/22/2024 US, obstetric, limited completed ervin [place] [address], [place], [address], 08/22/2024 13:56:22 08/22/2024 US, obstetric, limited completed [address], [place], [address], 08/28/2024 22:09:02 08/27/2024 US, kidney [facility] [email or web address] [facility] [address] [facility] [address], [place], [address], 08/28/2024 18:26:00 08/27/2024 imaging/diag nostic result active [facility] [address] [place], [address], 08/27/2024 15:19:42 08/27/2024 US, obstetric, follow-up completed [email or web address] [facility] [address] [place], [address], 08/28/2024 18:26:00 Procedure Notes None recorded. Medical Equipment None Reported. Allergies Allergen ID Allergen Name Allergen Category Reaction Reaction Severity Criticality Documentation Date Start Date Code Code System Note Provider Name and Address Organization Details Recorded Time 36936 prednison e medicatio n hives Not available Not available 07/03/2024 8640 RxNorm Peter Bryant CNM [address], [place], [address], [facility] 09:52:22 Medications Name Sig Start Date Stop [...] Pregnyl 10,000 unit intramusc ular solution Inject 20024 units every day by intramus cular route [...] 1 TABLET BY MOUTH EVERY 12 HOURS 08/28 completed Not Available Not Available Not Available famotidin e 20 mg tablet TAKE 1 TABLET BY MOUTH 2 TIMES A DAY 05/02 completed Not Available Not Available Not Available ciproflox acin 0.3 % eye drops INSTILL SEVEN DROPS INTO RIGHT EAR TWICE DAILY FOR SEVEN DAYS 08/28 completed Not Available Not Available Not Available [...] route every day 07/02 completed Prescrib ed Ban e: Yes Loca tion: [facility] odify By: [email or web address] z Encoun ter DateTime [...] VAIL INJECTIO N INTO RIGHT HIP LOT [id number] EXP 12/2021 Not Available Not Available Not Available Slynd 4 mg (28) tablet Take 1 tablet every day by oral route. 01/22 completed patient given samples Not Available Not Available Not Available Klayesta 100,000 unit/gram topical powder APPLY TO THE AFFECTED AREA TWICE DAILY active Not Available Not Available No t Available Vitals Date Recorded Body weight Body mass index (BMI) Body height Systolic blood pressure Diastolic blood pressure Systolic blood pressure Diastolic blood pressure Provider Name and Address Organization Details Last Updated DateTime 5 85183.3 214 g 38.4 kg/m2 161.29 cm 152 mm[Hg] 92 mm[Hg] 114 mm[Hg] 53 mm[Hg] Kenyetta Solano [facility] 5 17:51:55 Date Recorded Body weight Body mass index (BMI) Body height Systolic blood pressure Diastolic blood pressure Provider Name and Address Organization Details Last Updated DateTime 08/09/2024 035424.4 6799 g 39.6 kg/m2 161.29 cm 119 mm[Hg] 70 mm[Hg] Kenyettaelif Solano [facility] 5 12:43:20 Date Recorded Body height Body mass index (BMI) Body weight Systolic blood pressure Diastolic blood pressure Provider Name and Address Organization Details Last Updated DateTime 08/28/2024 161.29 cm 39.9 kg/m2 630712.6 5 g 133 mm[Hg] 89 mm[Hg] [facility] 5 14:31:40 Date Recorded Body weight Body mass index (BMI) Body height Systolic blood pressure Diastolic blood pressure Provider Name and Address Organization Details Last Updated DateTime 08/29/2024 407888.4 2984 g 40.5 kg/m2 161.29 cm 118 mm[Hg] 85 mm[Hg] [facility] 5 10:08:49 Social History Question Answer Notes LastModified by Organizat ion Details LastModified Time Tobacco Smoking Status Never Smoker [facility] 06/15/2022 15:31:26 Do You Have An Advance Directive? No Information not available 07/28/2020 What Is Your Level Of Alcohol Consumption? Occasional [email or web address] Information not available 12/25/2019 If You Are , What Was Your Level Of Alcohol Consumption Prior To ? None [email or web address] Information not available 06/15/2022 Are You Blind [...] Type Of Diet Are You Following? REGULAR [email or web address] Information not available 08/19/2020 Do You Or Have You Ever Used E-cigarettes Or Vape? Never Used Electronic Cigarettes Information not available 06/15/2022 What Is The Highest Grade Or Level Of School You Have Completed Or The Highest Degree You Have Received? 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 No Information not available 07/28/2020 What Was The Date Of Your Most Recent Tobacco Screening? 08/28/2024 Information not available 08/28/2024 Have You Ever Been Counseled For Unhealthy Alcohol Use? No [email or web address] Information not available 06/15/2022 Do You Use Protection During Sex? No Information not available 07/28/2020 Do You Use Your Seat Belt Or Car Seat Routinely? Yes Information not available 07/28/2020 Do You Have Smoke And Carbon Monoxide Detectors In Your Home? Yes Information not available 07/28/2020 Do You Or Have You Ever Used Smokeless Tobacco? Never Used Smokeless Tobacco [email or web address] Information not available 06/15/2022 How Much Tobacco Do You Smoke? No [email or web address] Information not available 12/25/2019 Do You Feel Stressed (tense, Restless, Nervous, Or Anxious, Or Unable To Sleep At Night)? EQ13926-1 [email or web address] Information not available 08/19/2020 Do You Use [...] 06/15/2022 Are you able to walk? YESWOREST [email or web address] Information not available 08/19/2020 Are you able to care for yourself? Yes Information not available 06/15/2022 Do you have difficulty dressing or bathing? No [email or web address] Information not available 06/15/2022 What is your exercise level? Occasional [email or web address] Information not available 12/25/2019 Mental Status None recorded. Family History Relationship Description Onset Age of this Age Resolved Age Notes LastModified by Organization Details LastModified Time Maternal Grandmother Disorder of thyroid gland Not available 01/26 16:14:56 Mother Female infertility [email or web address] Not available 05/09 14:45:18 Mother Disorder of thyroid gland [email or web address] Not available 01/26 16:14:56 Father Malignant tumor of pancreas [email or web address] Not available 2024 14:45:18 Brother Malignant neoplasm of prostate Not available 2024 14:45:18 Paternal Grandmother Malignant tumor of breast [email or web address] Not available 01/26 16:14:56 Paternal Grandmother Malignant neoplasm of lung [email or web address] Not available 01/26 16:14:56 Medical History Condition Response Other Y Blood Transfusion N Dermatologic Disorders N Gestational Diabetes N Anxiety Disorder Y Autoimmune disease N Arthritis N Polyps N Infertility Y Acid Reflux (GERD) N Cancer N Varicosities N Stroke N Neurologic/Epilepsy N Fibromyalgia N Headaches N Kidney Disease N Heart Problems N Kidney or Bladder Problems N Eating Disorder N Art (IVF or FET) Y Hepatitis/Liver Disease N No Past Medical History N Urinary Tract Infection N Asthma N Trauma/Violence N Thrombophilias N Allergies (Food, seasonal, environmental ) N Breast Cancer N Drug/Latex Allergies/Reactions N Lung Disease N Defects or Inherited Disease N Breast Problem N Hematologic disorders N Anesthesia Complications N History of STI Y Deep Vein Thrombosis N Polycystic ovary syndrome N History of abnormal pap Y Endometriosis Y High Cholesterol N Thyroid Problems Y GI Problems Y Anemia Y Psychiatric Illness Y Ovarian Cancer N Diabetes N Pulmonary (TB, Asthma) N Eczema N Abuse/Domestic Violence N Depression/ depression Y Heart Disease N Pre-Eclampsia Y Hypertension Y Osteoporosis N Gynecological History Statement/Question Response Abnormal [...] SNOMED-CT Code Diagnosis ICD10 Code Diagnosis Note [id number] Peter Bryant CNM [place] [address],[facility] [address] 12/25/2019 10:57:08 12/25/2019 12:38:39 Breast infection 695204793 N61.0 Trying to conceive 65194 9001 Z31.9 93050 Arlet Florez [place] [address],[facility] [place] [address] 06/30/2020 12:07:39 06/30/2020 12:55:49 Pain in pelvis 59134003 R10.2 86231 Messi Garcia MD [place] [address],[facility] [address] 07/02/2020 12:31:33 07/02/2020 16:54:32 Pain in pelvis 60157212 R10.2 This patient is a 25-year-ol d [...] informed consent process. To check fallopian tubes. [id number] Messi Garcia MD [place] [address] [address] 07/23/2020 10:07:53 07/23/2020 10:09:56 [id number] Messi Garcia MD [place] [address] [address] 07/28/2020 13:53:59 07/28/2020 15:27:02 Chest pain 66050915 R07.9 this patient is 25-year-ol d female [...] this patient s visit, including available hand desk pen set assembler upon arrive, temperterry e check and being asked a series of screening questions. All staff wore face coverings during this encounter, as well as provided additional cleaning and sanitizing of all surfaces, including countertop s, pens, chairs, door handles, light switches, etc, prior to and following the patient s visit. [id number] Messi Garcia MD [place] [address] [address] 08/04/2020 14:07:07 08/04/2020 14:50:37 Abnormal uterine bleeding 4329538078 9100 N93.9 this patient is a 25-year-ol [...] ovulation [place]. [id number] Peter Person Manny [facility] [address],[place] [address] 08/19/2020 13:46:09 08/19/2020 15:50:34 Trying to conceive 614731780 Z31.9 [id number] [facility] [address],[place] [address] 09/02/2020 11:05:51 09/02/2020 12:44:09 Female infertility 8590500 N97.9 55839 Peter Person Manny [facility] [address],[place] [address] 09/04/2020 08:09:36 09/04/2020 09:29:50 Artificial insemination 26654343 Z31.83 [id number] Kenyetta Solano [place] [address],[place] [address] 09/03/2020 18:20:49 09/03/2020 22:54:04 Trying to conceive 809373046 Z31.9 11284 [facility] [address],[place] [address] 09/09/2020 17:51:09 09/09/2020 18:07:37 Pain in pelvis 54458040 R10.2 This patient is a 25-year-ol d [...] informed consent process. To check fallopian tubes. 74915 Bita Dennis [place] [address],[place] [address] 09/22/2020 16:45:48 09/22/2020 17:17:04 Pain in pelvis 39998285 R10.2 This patient is a 25-year-ol d [...] informed consent process. To check fallopian tubes. 05361 Bita Dennis [place] [address],[place] [address] 10/01/2020 14:59:50 10/01/2020 15:16:34 Female infertility 7889110 N97.9 [id number] Kenyetta Solano [place] [address],[place] [address] 10/01/2020 16:21:54 10/01/2020 16:27:38 Trying to conceive 530728988 Z31.9 30616 [facility] [address],[place] [address] 10/02/2020 08:19:49 10/02/2020 09:46:38 Artificial insemination 23637848 Z31.83 [id number] Arlet Florez [place] [address],[place] [address] 10/14/2020 15:52:51 10/14/2020 16:51:20 Pain in pelvis 80641487 R10.2 This patient is a 25-year-ol d [...] informed consent process. To check fallopian tubes. [id number] Peter Bryant CNM [place] [address] [address] 10/21/2020 17:06:20 10/21/2020 17:33:05 Hypothyroidism 55059918 E03.9 check labs, will adjust meds if needed [id number] Arlet Florez [place] [address] [address] 11/30/2020 13:48:01 11/30/2020 13:52:51 Pain in pelvis 62992650 R10.2 This patient is a 25-year-ol d [...] informed consent process. To check fallopian tubes. [id number] Messi Garcia MD [place] [address] [address] 12/01/2020 14:00:56 12/01/2020 15:31:30 Pain in pelvis 88451328 R10.2 this patient is a 25-year-ol d [...] face-to-fa ce discussing this very complex topic. [id number] [facility] [address],[place] [address] 01/22/2021 09:15:38 01/22/2021 10:35:42 Female infertility 0858060 N97.9 Gynecologi c examination 71068233 Z01.419 [id number] [facility] [address],[place] [address] 02/09/2021 09:19:46 02/09/2021 10:04:48 Female infertility 8531269 N97.9 [id number] Kenyetta Solano [place] [address],[place] [address] 02/09/2021 14:29:50 02/09/2021 16:50:58 Trying to conceive 409864865 Z31.9 [id number] Peter Bryant [place] [facility] [address],[place] [address] 02/10/2021 09:41:42 02/10/2021 10:12:15 Female infertility 7337225 N97.9 Artificial insemination 61886747 Z31.83 [id number] [facility] [address],[place] [address] 04/28/2021 14:43:43 04/28/2021 15:19:59 Female infertility 9111998 N97.9 [id number] Kenyetta Solano [place] [address],[place] [address] 04/28/2021 18:59:10 04/29/2021 09:31:07 Trying to conceive 079715214 Z31.9 28804 Peter Bryant [facility] [address],[place] [address] 04/29/2021 09:31:15 04/29/2021 10:19:12 Artificial insemination 64754032 Z31.83 97024 Nalini Salomon [place] [address] [address] 05/25/2021 11:53:11 05/25/2021 16:54:31 Reduced libido 7927803 R68.82 Today we discussed trial of Wellbutrin [...] this patient s visit, including available hand desk pen set assembler upon arrive, temperatur e check and being asked a series of screening questions. All staff wore face coverings during this encounter, as well as provided additional cleaning and sanitizing of all surfaces, including countertop s, pens, chairs, door handles, light switches, etc, prior to and following the patient s visit. [id number] Messi Garcia MD [place] [address],[place] [address] 06/22/2021 14:38:59 06/23/2021 09:16:44 Body mass index 30+ - obesity 713934234 Z68.37 This patient is a 26-year-ol d [...] on the dietitian schedule. Gynecologi c examination 42057639 Z01.419 Abnormal u terine bleeding 1307868553 9100 N93.9 39732 Isha More [place] [address],[place] [address] 1 06/25/2021 09:04:11 06/25/2021 09:23:27 Female infertility 7886939 N97.9 26822 Kenyetta Solano [place] [address] [place] [address] 1 06/25/2021 18:38:25 06/26/2021 09:09:27 Trying to conceive 161765676 Z31.9 27310 [facility] [address] [place] [address] 1 06/26/2021 09:13:57 07/01/2021 15:54:18 Artificial insemination 55466073 Z31.83 25069 [facility] [address] [place] [address] 1 07/27/2021 17:11:55 07/27/2021 18:06:16 Uncertain viability of 628917542 O36.80X0 Z3A.01 83948 Isha More [place] [address] [place] [address] 08/05/2021 09:17:05 08/05/2021 10:16:25 Abdominal pain in early 870049099 Z33.1 Z3A.01 40883 [facility] [address] [place] [address] 1 08/18/2021 10:17:54 08/18/2021 11:20:00 [id number] Peter Bryant CNM [place] [address] [place] [address] 1 08/18/2021 10:18:19 08/19/2021 12:30:57 Amenorrhea 30720224 Z31.89 Z31.83 54174 Isha More [place] [address],[place] [address] 1 09/10/2021 14:50:18 09/10/2021 15:34:33 screening 233362548 Z36.82 30764 Pretty Cotton MD [place] [address],[place] [address] 1 09/10/2021 14:50:57 09/13/2021 15:22:01 Routine care 591693153 Z34.91 care: history of infertility 431576409 O09.[address] reptococcus carrier 2045146504 103 Z22.330 Hypothyroidism 46911912 E03.9 Maternal o besity complicating , childbirth and the puerperium, antepartum 1453843195 07 O99.211 306015 Pretty Cotton MD [place] [address],[place] [address] 1 09/27/2021 17:43:48 09/28/2021 10:23:00 Chronic hypertension complicating AND/OR reason for care during 64029518 O16.9 [id number] Pretty Cotton MD [place] [address],[place] [address] 10/08/2021 14:49:27 10/08/2021 16:16:40 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 7835631 O16.9 care: history of infertility 944076330 O09.01 Hypothyroidism 51968781 E03.9 136882 [facility] [address],[place] [address] 11/03/2021 16:29:49 11/03/2021 18:37:35 screening 224928003 Z36.3 Z3A.20 [id number] Peter Bryant [facility] [address],[place] [address] 11/03/2021 16:30:15 11/03/2021 18:37:10 Routine care 785850028 Z34.91 Anxiety 72967673 F41.9 [id number] Messi Garcia MD [place] [address],[place] [address] 12/03/2021 15:10:07 12/03/2021 16:20:49 Hypothyroidism 21217396 E03.9 [id number] Isha More [place] [address],[place] [address] 12/03/2021 15:10:54 12/03/2021 17:08:45 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79 [id number] Messi Garcia MD [place] [address],[place] [address] 1 01/13/2022 13:47:50 01/13/2022 15:53:18 Routine care 293981082 Z34.83 [id number] Marie Lewis [place] [address],[place] [address] 1 01/17/2022 16:24:29 01/17/2022 18:16:59 Threatened premature labor - not delivered 994802441 O47.9 [id number] Pretty Cotton MD [place] [address],[place] [address] 01/17/2022 16:35:15 01/19/2022 15:28:55 Threatened premature labor - not delivered 430536068 O47.9 [id number] [facility] [address],[place] [address] 01/26/2022 14:52:57 01/26/2022 15:27:45 Chronic hypertension complicating AND/OR reason for care during 37906983 O16.9 [id number] [facility] [address],[place] [address] 1 01/26/2022 14:54:57 01/26/2022 16:22:26 Placenta circumvallata 4686367 O43.113 Z3A.32 O10.013 723305 [facility] [address],[place] [address] 01/26/2022 14:55:32 01/26/2022 16:39:21 Routine care 414593360 Z34.91 [id number] [facility] [address],[place] [address] 1 02/02/2022 16:59:59 02/02/2022 17:58:36 Maternal obesity complicating , childbirth and the puerperium, antepartum 2896834023 07 O99.213 [id number] [facility] [address],[place] [address] 1 02/02/2022 17:00:19 02/02/2022 18:17:03 Chronic hypertension complicating AND/OR reason for care during 62863894 O10.013 Z3A.33 [id number] [facility] [address],[place] [address] 02/02/2022 17:00:45 02/02/2022 18:50:24 Routine care 174006503 Z34.91 [id number] [facility] [address],[place] [address] 1 02/09/2022 16:53:15 02/09/2022 17:49:24 Maternal obesity complicating , childbirth and the puerperium, antepartum 5592770938 07 O99.213 [id number] [facility] [address],[place] [address] 1 02/09/2022 16:53:36 02/09/2022 18:15:36 Chronic hypertension complicating AND/OR reason for care during 28154087 O10.013 O99.213 Z3A.34 [id number] Peter Bryant [facility] [address],[place] [address] 02/09/2022 16:54:04 02/09/2022 18:25:27 Routine care 719700380 Z34.91 212014 [facility] [address],[place] [address] 1 02/16/2022 17:00:10 02/16/2022 17:56:48 Chronic hypertension complicating AND/OR reason for care during 96763893 O10.013 O99.213 Z3A.34 [id number] [facility] [address],[place] [address] 1 02/16/2022 17:00:39 02/16/2022 18:07:43 Chronic hypertension complicating AND/OR reason for care during 87593682 O10.013 Z3A.35 O99.213 [id number] Peter Bryant [facility] [address],[place] [address] 02/16/2022 17:01:03 02/16/2022 18:20:17 Routine care 258541854 Z34.91 [id number] [facility] [address],[place] [address] 1 02/18/2022 15:23:24 02/18/2022 15:53:12 Reduced movement 825712123 O36.8199 864398 Peter Bryant [facility] [address],[place] [address] 1 02/23/2022 16:45:10 02/23/2022 18:18:35 Routine care 089755974 Z34.91 Large for gestation age fetus 219015267 O36.63X0 903542 Loretta Casiano ier [place] [address],[place] [address] 1 02/23/2022 16:42:55 02/23/2022 17:12:22 Chronic hypertension complicating AND/OR reason for care during 10448738 O10.013 Z3A.35 O99.213 [id number] [facility] [address],[place] [address] 1 02/23/2022 16:43:28 02/23/2022 17:56:35 Chronic hypertension complicating AND/OR reason for care during 80844777 O10.013 O99.213 Z3A.36 407344 Pretty Cotton MD [place] [address],[place] [address] 03/16/2022 14:15:55 03/17/2022 16:13:50 Pain in pelvis 59418336 R10.2 [id number] [facility] [address],[place] [address] 03/17/2022 13:34:56 03/17/2022 14:02:57 Pain in pelvis 94922820 R10.2 this patient is a 25-year-ol d [...] face-to-fa ce discussing this very complex topic. [id number] Messi Garcia MD [place] [address],[place] [address] 03/17/2022 13:35:31 03/18/2022 13:49:15 Pain in pelvis 17615823 R10.2 patient is a 27-year-ol d female [...] We spent over 20 minutes face-to-fa ce. 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 restart lexapro, to ed if any suicidal thoughts, reviewed se risks and benefits f/u 6 week med check if unavailabl e can do by phone Low grade squamous intraepithelial lesion on cervical Papanicolaou smear 9707732377 9105 R87.612 f/u pending pathology [id number] [facility] [address],[place] [address] 08/16/2023 11:38:58 08/16/2023 13:55:15 Pain in pelvis 89911061 R10.2 also start pelvic floor pT Gynecologi c examination 98968992 Z01.419 [id number] Arlet Florez [place] [address],[place] [address] 1 08/22/2023 11:28:17 08/22/2023 12:06:29 Pain in pelvis 72206904 R10.2 patient is a 27-year-ol d female [...] We spent over 20 minutes face-to-fa ce. [id number] [facility] [address],[place] [address] 04/23/2024 09:16:05 04/23/2024 10:09:58 screening 680723939 Z36.87 O30.049 Z3A.01 [id number] [facility] [address],[place] [address] 05/10/2024 15:16:46 05/10/2024 16:01:31 312145 [facility] [address],[place] [address] 05/10/2024 15:17:03 05/10/2024 16:51:44 Amenorrhea 94953071 Z31.89 Z31.83 Dichorioni c diamniotic twin 284088541 O30.049 reviewed US plan us at 12 weeksnipt at 10 weeks with labsawait pap until pp visitrevie wed precaution s and educationh x preeclamps ia without severe features last [id number] [facility] [address],[place] [address] 05/21/2024 11:09:17 05/21/2024 12:05:12 Threatened miscarriage 41194151 O20.0 O30.041 Z3A.09 528163 [facility] [address],[place] [address] 1 05/23/2024 17:26:08 05/24/2024 10:31:39 Threatened miscarriage 14403882 O20.0 O30.041 Z3A.09 995151 Messi Garcia MD [place] [address],[place] [address] 1 05/23/2024 18:31:17 05/24/2024 10:33:13 Pain in pelvis 93671426 R10.2 this patient is a 29-year-ol d [...] is to contact us if pain worsens. [id number] [facility] [address],[place] [address] 1 05/29/2024 10:21:34 05/29/2024 11:12:31 condition affecting obstetrical care of mother 788529784 O36.8910 Z3A.10 [id number] [facility] [address],[place] [address] 06/03/2024 16:41:37 06/04/2024 14:32:45 screening 604864964 Z36.82 Z3A.11 888382 Peter Bryant CNM [place] [address],[place] [address] 1 06/05/2024 14:45:02 06/06/2024 16:44:18 Nausea and vomiting 68903942 R11.2 Migraine 86159586 G43.90 9 Routine an tenatal care 223752755 Z34.91 Twin 42247913 O30.009 [id number] [facility] [address],[place] [address] 06/12/2024 17:23:11 06/12/2024 18:08:31 Medical examination for suspected condition 352316187 Z03.72 Z3A.12 [id number] [facility] [address],[place] [address] 1 07/01/2024 16:17:41 07/01/2024 17:36:13 Dichorionic diamniotic twin 146626001 O30.042 Z3A.15 532130 [facility] [address],[place] [address] 07/03/2024 09:17:02 07/03/2024 09:55:31 Gestation period, 15 weeks 7768142 Z3A.15 [id number] ALEC WILKINSON MD [place] [address],[place] [address] 07/08/2024 10:41:29 07/08/2024 11:38:56 Pruritic rash 04915961 L28.2 Dichorioni c diamniotic twin 678787933 O30.049 Chronic hy pertension complicating AND/OR reason for care during 32994372 O16.9 Gestation period, 16 weeks 09466643 Z3A.16 628256 Bita Dennis [place] [address],[place] [address] 07/12/2024 10:38:28 07/12/2024 11:50:01 [id number] Peter Bryant CNM [place] [address],[place] [address] 1 07/31/2024 16:35:21 08/01/2024 09:45:58 Gestation period, 19 weeks 38165056 Z3A.19 Dichorioni c diamniotic twin 709049809 O30.049 Gastroesop hageal reflux disease 376381205 K21.9 [id number] Peter Bryant [facility] [address],[place] [address] 08/09/2024 12:12:22 08/09/2024 14:11:25 Pain in pelvis 76020153 R10.2 start physical [facility] [id number] [facility] [address],[place] [address] 08/22/2024 12:06:07 08/22/2024 13:36:01 Dichorionic diamniotic twin 497084008 O30.042 O36.8120 Z3A.23 [id number] Peter Bryant [facility] [address],[place] [address] 08/28/2024 14:16:16 08/30/2024 10:02:02 [id number] Peter Bryant [facility] [address],[place] [address] 08/29/2024 09:57:22 08/30/2024 10:26:31 Gestation period, 24 weeks 355027916 Z3A.24 Health Concerns Section Related Observation LastModified by Organization Detai ls LastModified Time None Recorded Concern Status LastModified by Organization Details LastModified Time None Recorded Advance Directives Directive N: Payers Encounter Date Sequence Insurance Name Policy Number Policy Steele Covered Member ID Steele Member ID Guarantor Name 07/31/2024 1 [employer] [id number] Luis Antonio Mo [id number] Yessica Mast Corzine 08/09/2024 1 [employer] [id number] Luis Antonio Rowe Cortashane [id number] Yessica Mast Corzine 08/22/2024 1 [employer] [id number] Luis Antonio Mo [id number] Yessica Kezia Corzine 08/28/2024 1 [employer] [id number] Luis Antonio Mo [id number] Yessica Kezia Corzine 08/29/2024 1 [employer] [id number] Luis Antonio Mo [id number] Yessica Mo OBGyn Episode Ob Episode Information Episode Created Date Number of Fetuses Patient Bloodtype Patient rh Status Prepregnancy Weight lbs Domestic Partner Domestic Partner Phone Father Name Collar Baster Jumpbasting Status 12/25/19 20 1 CLOSED Fetus Data [...] Domestic Partner Domestic Partner Phone Father Name Collar Baster Jumpbasting Status 12/25/19 20 1 CLOSED Fetus Data [...] Domestic Partner Domestic Partner Phone Father Name Collar Baster Jumpbasting Status 09/11/19 22 1 A Positive 221 CLOSED Fetus Data First Name Last Name Admitted to NICU Weight (g) Sex Living Outcome Pediatric Complications Fetus ID Race Codes Race Delivery Type 4224.07 55 M true Full Term 66922 Vaginal Delivery Problems Problem Notes TSH WNL/A+/Ha1c/CBC WNL Problem Name Start Date End Date Resolution Snomed Code Not e Hypothyroidism 77437135 care: history of infertility 007956105 Group B Streptococcus carrier 7858558902791 bacteriuria Maternal obesity complicating , childbirth and the puerperium, antepartum 747194693192 BMI 39- ante testing at 37w 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 0724820 maia ellsworth , baseline labs, ASA Placenta circumvallata 1533819 Serial growth u/s Pre-eclampsia 296477083 Darren Calculation Initial Darren Date Initial Exam [...] Date Ultra Sound Latest Days Gestation 0 [email or web address] 09/13/2021 03/23/20 22 0 Pre-erick Flowsheet Flowsheet Date 09/10/2021 Mckinney Score Blood Edema Fundus Height Fundus Units Glucose Ketones Leukocytes Nitrite Labor Signs Protein Cervic Dilation Cervic Effacement Cervic Station neg none Type Weight in lbs Pre/Post Dialysis Refused Weight 225.345828133322 BP Diastolic BP Location Tested BP Systolic [...] Weight in lbs Pre/Post Dialysis Refused Weight 226.893752849712 BP Diastolic BP Location Tested BP Systolic [...] Weight in lbs Pre/Post Dialysis Refused Weight 224.818553043326 BP Diastolic BP Location Tested BP Systolic [...] Weight in lbs Pre/Post Dialysis Refused Weight 230.337784291789 BP Diastolic BP Location Tested BP Systolic [...] Weight in lbs Pre/Post Dialysis Refused Weight 234.335756002639 BP Diastolic BP Location Tested BP Systolic [...] Weight in lbs Pre/Post Dialysis Refused Weight 235.501736462285 BP Diastolic BP Location Tested BP Systolic [...] Weight in lbs Pre/Post Dialysis Refused Weight 239.037511994336 BP Diastolic BP Location Tested BP Systolic [...] Weight in lbs Pre/Post Dialysis Refused Weight 240.723815656860 BP Diastolic BP Location Tested BP Systolic [...] 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 [...] Weight in lbs Pre/Post Dialysis Refused Weight 242.539250658937 BP Diastolic BP Location Tested BP Systolic [...] Weight in lbs Pre/Post Dialysis Refused Weight 243.822090651835 BP Diastolic BP Location Tested BP Systolic [...] Weight in lbs Pre/Post Dialysis Refused Weight 242.857001176708 BP Diastolic BP Location Tested BP Systolic [...] Weight in lbs Pre/Post Dialysis Refused Weight 246.094772257676 BP Diastolic BP Location Tested BP Systolic [...] Weight in lbs Pre/Post Dialysis Refused Weight 246.025964224091 BP Diastolic BP Location Tested BP Systolic [...] Weight in lbs Pre/Post Dialysis Refused Weight 211.434488456089 BP Diastolic BP Location Tested BP Systolic [...] Weight in lbs Pre/Post Dialysis Refused Weight 211.287277567983 BP Diastolic BP Location Tested BP Systolic BP Type 86 L arm 126 sitting Fetus Heart Rate Present Fetus Movement Comments Flowsheet Date 04/08/2022 Mckinney Score Blood Edema Fundus Height Fundus Units Glucose Ketones Leukocytes Nitrite Labor Signs Protein Cervic Dilation Cervic Effacement Cervic Station Type Weight in lbs Pre/Post Dialysis Refused Weight 212.59638928866 BP Diastolic BP Location Tested BP Systolic BP Type 84 134 Fetus Heart Rate Present Fetus Movement Comments Flowsheet Date 05/27/2022 Mckinney Score Blood Edema Fundus Height Fundus Units Glucose Ketones Leukocytes Nitrite Labor Signs Protein Cervic Dilation Cervic Effacement Cervic Station Type Weight in lbs Pre/Post Dialysis Refused Weight 221.498290290751 BP Diastolic BP Location Tested BP Systolic [...] Estim ated Date of Delivery false Thalassemia (Guatemalan, Latvian, Mediterranean, Or Background): MCV < 80 false Neural Tube Defect (Meningomyelocele, Spina Bifi da, Or Anencephaly) false Congenital Heart Defect false Down Syndrome false Curt-Sachs (eg, Mandaeism, Cajun, Syrian-Somali) f alse Yung Disease false Sickle Cell Disease Or Trait () false Hemophilia Or Other Blood Disorders false Muscular Dystrophy false Cystic Fibrosis false Alejandrina's Chorea false Intellectual Disability/Autism false If Yes, [...] d Regional-Ep idural 37 false Peter Bryant DUNIA Maternal obesity, Gbs+ and pre eclampsia w/o severe features Discharge Information Feeding Method Contraceptive Method Maternal HG B and HCT Levels Breast Ob Episode Information Episode Created Date Number of Fetuses Patient Bloodtype Patient rh Status Prepregnancy Weight lbs Domestic Partner Domestic Partner Phone Father Name Collar Baster Jumpbasting Status 06/05/19 25 2 A Positive 198 Gabriel Mo OPEN Fetus Data First Name Last Name Admitted to NICU Weight (g) Sex Living Outcome Pediatric Complications Fetus ID Race Codes Race Delivery Type [id number] Problems Problem Notes Anatomy with [facility] - 07/31/24 1 300 [facility] U/S & OV [facility] 08/27/24 US only 1:00PM Problem Name Start Date End Date Resolution Snomed Code Not e care: history of infertility 262965288 Past history of shoulder dystocia 559203923 Large for gestation age fetus 203293851 less then 30 se c shoulder dystocia Past history of pre-eclampsia 502026691245741 bASA x2 Migraine 80095115 magnesium, Excedrin tension, sumatriptan 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 3963873 Palpitations 40502893 Holter monitor faxed to [facility] 07/29 Twin [id number] 38 wk deliveryantenatal testing @ 32wks per [facility] Scheduled rpt 08/27 us ONLY Darren [...] Weight in lbs Pre/Post Dialysis Refused Weight 207.428467290666 BP Diastolic BP Location Tested BP Systolic [...] disability paperwork. will plan on referral to [facility] for anatomy and history of HTN/preeclampsia, [...] Type Weight in lbs Pre/Post Dialysis Refused 214.432336342679 BP Diastolic BP Location Tested BP Systolic [...] Weight in lbs Pre/Post Dialysis Refused Weight 216.108521476970 BP Diastolic BP Location Tested BP Systolic [...] No bleeding. Will send for anatomy at [facility]. Will measure for belly band today [...] Type Weight in lbs Pre/Post Dialysis Refused 220.197951607188 BP Diastolic BP Location Tested BP Systolic [...] Type Weight in lbs Pre/Post Dialysis Refused 227.489290001146 BP Diastolic BP Location Tested BP Systolic [...] Rate Present Fetus Movement Comments Flowsheet Date 08/28/2024 Mckinney Score Blood Edema Fundus Height Fundus Units Glucose Ketones Leukocytes Nitrite Labor Signs Protein Cervic Dilation Cervic Effacement Cervic Station neg trace Type Weight in lbs Pre/Post Dialysis Refused Weight 229.572735947434 BP Diastolic BP Location Tested BP Systolic BP Type 89 133 Fetus Heart Rate Present Fetus Movement A Yes B Yes Comments Patient is having pressure, contractions and swelling. Flowsheet Date 08/29/2024 Mckinney Score Blood Edema Fundus Height Fundus Units Glucose Ketones Leukocytes Nitrite Labor Signs Protein Cervic Dilation Cervic Effacement Cervic Station Type Weight in lbs Pre/Post Dialysis Refused 232.29858277747 BP Diastolic BP Location Tested BP Systolic BP Type 85 118 Fetus Heart Rate Present A 138 Present B 142 Present Fetus Movement A Yes B Yes Comments patient is having some pain, contractions and swelling. reviewed precautions and education, kidney US wnl. plan GCT at next visit +FM x 2 mfm f/u for completion of anatomy Menstrual History Last Menstrual Date Menses Monthly On Bcp Conception Prior Menses Frequency Hcg Plus Date Menarche Onset Age Delivery Information Delivery Date Delivery Type Labor Anesthesia Weeks Gestation Incision Type Labor Labor Length Hrs Delivered By Post Complications Tubal Sterilization Discharge Date Comments Discharge Information Feeding Method Contraceptive Method Maternal HG B and HCT Levels
--- NOTE | 2024-09-02 21:06 | PC.NURSE ---
Called Dr. Garcia, update on pt, leaking, negative ROM plus, congestion, blood pressure, and tracing. Orders received to discharge pt with instructions to keep next scheduled appointment and when to return to the unit.
--- OUTSIDE RECORDS SUMMARY | 2024-09-02 21:18 | XMS_ITS | Clinical Summary ---
Author Organization [facility] Address [address] [place] [address] Care Team Providers Care Stem Sizer Name Role Phone Robby Torres MD Unavailable Yon Gutierrez MD Primary Care Provider Malik Cates MD Unavailable Cindi Bryant WINCH DRIVER Unavailable Sakshi Biggs DO Unavailable [phone] Allergies Active Allergy Reactions Criticality Noted Date Comments Cephalexin Hives Medium 12/21/2023 Prednisone Hives Medium 08/09/2024 Medications aspirin 81 mg enteric coated tablet Take 1 tablet (81 mg total) by mouth daily Active vit 74-niam-ufcgn-d luo 27mg iron- 800 mcg-250 mg capsule [...] one by Dr. Davila for endometriosis at [place] - this is her second period currently, [...] possible Assessment & Plan (06/20/2023 9:50 AM LINEN ATTENDANT): Hearing test, plan for bilateral myringotomy with [...] managed by endocrinology - Dr. Cates (her operations scheduler) tried some medications without success - insurance [...] managed by endocrinology - Dr. Cates (her operations scheduler) tried some medications without success - insurance [...] managed by endocrinology - Dr. Cates (her operations scheduler) tried some medications without success - insurance limitations can affect it - start Phentermine, taper up dose sent - f/u in 6 weeks Assessment & Plan (05/28/2023 3:41 PM LINEN ATTENDANT): Wt Readings from Last 3 Encounters: 05/26/23 [...] months Assessment & Plan (05/28/2023 3:35 PM LINEN ATTENDANT): - chronic, recurrent condition, worse - in [...] disease. Assessment & Plan (05/28/2023 3:36 PM LINEN ATTENDANT): - chronic, recurring condition - has history [...] Recommend thyroid ultrasound. Instructed to inform her operations scheduler about MRI findings. US Thyroid 09/2022 IMPRESSION: [...] recommended. Assessment & Plan (05/28/2023 3:28 PM LINEN ATTENDANT): Chronic condition, stable/controlled Diagnosed in 2018 Currently [...] 02/13/2019 Assessment & Plan (05/28/2023 3:38 PM LINEN ATTENDANT): - recent onset - was seen recently [...] 019 Assessment & Plan (05/26/2023 8:54 AM LINEN ATTENDANT): - had EGD in past and was found to have H. Pylori which was being treated - no current issues at this time Chronic gastritis 11/26/2018 Overview (05/03/2023): EGD - H pylori, GI S/P hemorrhoidectomy 11/26/2018 Conductive hearing loss, middle ear 10/18/2018 Assessment & Plan (04/03/2024 2:03 PM LINEN ATTENDANT): Avoid ear cleaning techniques Avoid water to ears Hearing test today was normal, ear tubes open suspect referred ear fullness from neck or jaw Chronic serous otitis media of left ear 10/19/19 19 Assessment & Plan (04/03/2024 1:03 PM LINEN ATTENDANT): Avoid ear cleaning techniques Avoid water to [...] No Location: [facility] Source: EHR Chronic: N Practice ID: [id number] Billable Time: 10:45:00 AM TMJ (temporomandibular joint syndrome) 01/04/2019 05/28/2023 Chronic gastritis 11/26/2018 05/26/2023 Prolapsed internal hemorrhoids, grade 4 09/26/2018 05/26/2023 Overview (09/26/2018): Added automatically from request for surgery [id number] Assessment & Plan (09/26/2018 2:45 PM CDT): [...] Description 08/09/2024 8:15 AM CDT Office Visit [facility] - [address] [place] [address] Sakshi Biggs, DO Otorrhea of [...] on file Legal Sex Female 10:18 AM LINEN ATTENDANT Gender Identity Not on file Sexual Orientation Not on file Obstetrics History Last Filed Vital Signs Vital Sign Reading Time Taken Comments Blood Pressure 138/88 04/06/2024 10:25 PM LINEN ATTENDANT Pulse 78 04/06/2024 11:45 PM LINEN ATTENDANT Temperature 36.3 C (97.4 F) 04/06/2024 10:25 PM LINEN ATTENDANT Respiratory Rate 18 04/06/2024 10:25 PM LINEN ATTENDANT Oxygen Saturation 100% 04/06/2024 11:45 PM LINEN ATTENDANT Inhaled Oxygen Concentration - - Weight 85.7 kg (189 lb) 04/06/2024 10:25 PM LINEN ATTENDANT Height 165.1 cm (5' 5 ) 04/06/2024 10:25 PM LINEN ATTENDANT Body Mass Index 31.45 04/06/2024 10:25 PM LINEN ATTENDANT Plan of Treatment Health Maintenance Due Date [...] this topic Medical Devices Implanted Type Area Traverse Rod Assembler Device Identifier Shelf Expiration Date Model / Serial / Lot Olympus Codi Inc 1.32mm 4.8mm Modify Ear T Tube Ventilation Ultrasil Sterile Blue [id number] - [id number] Implanted:Qty: 1 on 07/11/2023 by Sakshi Biggs DO at [facility] Left: Ear Olympus Codi Inc 01/03/2033 [id number] / / [id number] Olympus Codi Inc 1.32mm 4.8mm Modify Ear T Tube Ventilation Ultrasil Sterile Blue [id number] - [id number] Implanted:Qty: 1 on 07/11/2023 by Sakshi Biggs DO at [facility] Right: Ear [employer]odi [employer] 01/18/2033 [id number] / / [id number] Insurance [facility]PP[facility] Address: [facility] [id number] [place] [id number] [facility]/PPO Address: [address] [address] [facility] H[facility]/PPO Address: [place] [address] Care Teams Stem Sizer Relationship Specialty Start Date End Date Yon Gutierrez MD [address] [facility] [address] NATALY Rowe [address] [address] PCP - General Family Medicine 04/04/23 Robby Torres MD Referring Physician Family Medicine 08/22/19 Malik Cates MD 2 [facility] [address] [place] [address] Referring Physician General Surgery 05/26/23 Cindi Bryant NP [address] [place] [address] Nurse Practitioner Obstetrics and Gynecology 05/26/23 Sakshi Biggs DO [address] [place] [address] [address] INGRAM [address] [address] Consulting Physician Otolaryngology 05/26/23
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
--- OUTSIDE RECORDS SUMMARY | 2024-09-02 21:18 | XMS_ITS | Clinical Summary ---
Author Organization [facility] Address [address] [facility], [address] [address] Phone Care Team Providers Care Area Operations Manager Name Role Phone Manda Singh MD Unavailable [phone] Malik Cates MD Unavailable Ulices Marino [...] Transcribe Orders [facility] [address] [place] [address] Provider, Not On File Low back pain, [...] 97.5 kg (215 lb) 04/19/2023 8:07 AM REWRITER Height 165.1 cm (5' 5 ) 04/19/2023 8:07 AM REWRITER Body Mass Index 35.78 04/19/2023 8:07 AM REWRITER Plan of Treatment Upcoming Encounters Date Type Department Care Team (Late st Contact Info) Description 09/26/2024 1:00 PM CDT Office Visit [facility] - Neurology [facility] [address] [place] [address] Georgina Fontenot, CLOUD INFRASTRUCTURE ARCHITECT, ADMINISTRATIVE SALES ASSISTANT [address] [place] [address] Health Maintenance Due Date Last Done Comments [...] this topic Medical Devices Implanted Type Area Biazzi Nitrator Operator Device Identifier Shelf Expiration Date Model / Serial / Lot Tube Ventilation 5mm Carey Triune - [id number] Implanted:Qty: 1 on 11/05/2018 by Jordon Deng MD at [facility] IMPLANT Left: Ear [employer] 04/06/2020 510-122 / [id number] / [id number] Description:Ear tubes came f rom the same package Tube Ventilation 5mm Carey Triune - [id number] Implanted:Qty: 1 on 11/05/2018 by Jordon Deng MD at [facility] IMPLANT Right: Ear [employer] 04/06/2020 510-122 / [id number] / [id number] Description:Ear tubes came f rom the same package Insurance * Guarantor: [facility] Account Type Relation to Patient Date of Phone Billing Address Institutional Other [address] [place] [address] Care Teams Area Operations Manager Relationship Specialty Start Date End Date Yon Gutierrez MD 2 [facility] [address] [place] [address] PCP - General Family Medicine 06/23/23 Manda Singh MD Obstetrics & Gynecology 02/11/20 Malik Cates MD [address] [id number] Consulting Physician Endocrinology 12/13/21 Ulices Marino MD #[address] [address] Consulting Physician Colon and Rectal Surgery 07/06/22
--- OUTSIDE RECORDS SUMMARY | 2024-09-02 21:18 | XMS_ITS | Clinical Summary ---
Author Organization [facility] Address [address] [place] [address] Care Team Providers Care Food Counter Attendant Name Role Phone Scooter White DO Primary Care Provider [phone] Source Comments [facility],non-owned Affiliates and Associated Physician Practices is amultiple site organization consisting of ambulatory clinics and hospital sitesin [place], [place], [place] and [place]. This disclosure is being madepursuant to the Care Everywhere program and may not contain all information available regarding this patient. Last updated 18.[facility] Allergies Active Allergy Reactions Criticality Noted Date [...] - 08/27/2024 11:59 PM CDT Hospital Encounter [facility] [address] [place] [address] Christiano Tristan MD Discharge Disposition: Home or Self Care 07/31/2024 12:59 PM CDT - 07/31/2024 11:59 PM CDT Hospital Encounter [facility] [address] [place] [address] Katina Ewing MD Discharge Disposition: Home or Self Care 07/31/2024 12:59 PM CDT - 07/31/2024 11:59 PM CDT Hospital Encounter [facility] [address] [place] [address] Katina Ewing MD Discharge Disposition: Home or [...] on file Legal Sex Female 1:08 PM EDGE STAINER Gender Identity Not on file Sexual Orientation [...] Info) Description 09/24/2024 1:00 PM CDT Appointment [facility] [address] [place], [place] [address] Health Maintenance Due Date Last Done Comments [...] CDT Dichorionic diamniotic twin in second trimester ([facility]) History of pre-eclampsia in prior , currently ([facility]) 24 weeks gestation of ([facility]) Supervision of high risk in second trimester ([facility]) SONOGRAM - COMPLETE Routine 07/31/2024 1 2:55 [...] History ====== OB History 4. Para 3 [id number] 1. live 2011. Gest. age 41 w [...] 1 lb 11 oz EFW by Hadlock (HVK-WG-[id number]-FL) EFW discordance 7.5 % accelerated Fetus B: Biometry BPD 56.5 mm 23w 2d 27% Hadlock HC 211.7 mm 23w 2d 17% Hadlock AC 202.4 mm 24w 6d 77% Hadlock Femur 43.7 mm 24w 2d 59% Hadlock HC / AC 1.05 -/- Hadlock Weight Calculation: EFW 695 g 74% Hadlock EFW (lb,oz) 1 lb 9 oz EFW by Hadlock (QNK-CP-[id number]-FL) EFW discordance 7.5 % appropriate Fetus A: [...] view. RVOT view. LVOT view. 3-vessel view. 8-tjjwfm-qpgrwpc view. Bicaval view. Ductal arch view. Interventricular [...] Thorax 4-chamber view. LVOT view. 3-vessel view. 5-inedpf-dpvpwxt view. Aortic arch view. Bicaval view. Interventricular [...] to complete anatomic survey Coding ====== Procedures [id number]: US Preg Uterus Follow Up. x2 170 Systems PACS Anatomical Region Laterality Modality Other 08/27/2024 12:5 2 PM CDT R Bert Garcia MD [facility] ORDERABLES Edited Result - Final from Last 3 Months Insurance Care Teams Food Counter Attendant Relationship Specialty Start Date End Date Scooter White DO PCP - General 03/16/22
--- OUTSIDE RECORDS SUMMARY | 2024-09-02 21:18 | XMS_ITS | Encounter Summary ---
Author Organization [facility] Address [address] [place] [address] Phone Care Team Providers Care Quality Control Name Role Phone Manda Singh MD Unavailable [phone] Robby Torres Primary Care Provider [phone] Scooter White DO Primary Care Provider Malik Cates MD Unavailable Ulices Marino MD Unavailable Yon Gutierrez MD Primary Care Provider Encounter Details Date Type Department Care Team (Late st Contact Info) Description 04/09/2020 Telephone [facility] [address] [address] Saud Dalton MD [address] [place] [phone] Social History Tobacco Use Types Packs/Day [...] COVID-19? No / Unsure 03/20/2020 6:06 AM LIVESTOCK FEEDER documented as of this encounter Miscellaneous Notes * Telephone Encounter - Mahnaz Alaniz - 04/09/2020 2:50 PM CST Patient no showed her appointment, left voice message to call the office to reschedule. Sent out a no show letter. STOCK FEEDER documented in this encounter Plan of Treatment Upcoming Encounters Date Type Department Care Team (Late st Contact Info) Description 09/26/2024 1:00 PM CDT [facility] Visit [facility] [address] [place] [address] Georgina Fontenot APRN, NIGHT CLUB MANAGER [address] [place] [address] documented as of this encounter Visit Diagnoses Not on filedocumented in this encounter Additional Health Concerns Assessment Noted Time PHQ-9 Depression Total Score: 0 02/11/20 20 12:57 PM CDT documented as of this encounter Care Teams Quality Control Relationship Specialty Start Date End Date Robby Torres [address] [place] [address] PCP - General Family Medicine 02/11/20 03/16/21 Scooter White DO [facility] [facility] [place] [address] PCP - General Internal Medicine 03/17/21 06/22/23 Yon Gutierrez MD 2 [facility] [address] [place] [address] PCP - General Family Medicine 06/23/23 Manda Singh MD Obstetrics & Gynecology 02/11/20 Malik Cates MD #[address] [address] Consulting Physician Endocrinology 12/13/21 Ulices Marino MD #[address] [address] Consulting Physician Colon and Rectal Surgery 07/06/22 documented as of this encounter
--- OUTSIDE RECORDS SUMMARY | 2024-09-02 21:18 | XMS_ITS | Continuity of Care Document ---
Author Organization [facility] Address [address] [place] [address] [address] [place] [address] Phone Care Team Providers Care Supervisor Color Making Name Role Phone Carol OD OD, Georgina [...] - Active Procedures Procedure Date OFFICE/OUTPATIENT VISIT, [facility] Comp cont lens eval No Charge Visit N/C Glasses Check Advance Directives Directive Yes / No Effective Date File Name No Information Encounters Encounter Description Practice Location Reason(s) For Visit Diagnoses Date Provider Providers Copied on Encounter [facility], [address] [place] [address] [address], [place], [place], [id number], tel:[phone] OPH CONSULT KENTRELL LOPEZ No Information 3 Carol OD Georgina. [address] [facility], [address], [place], [place], [id number], [place]. tel:[phone] Referring Provider: Georgina Medina OD, [address] [facility] [address], [place], [address] . tel:[phone] OFFICE/OUTPA TIENT VISIT, [facility], [address] [place] [address], [id number], tel:[phone] OPH CONSULT KENTRELL LOPEZ blurry vision (chief complaint) dry eye (chief complaint) Krystin's thyroiditisMyo roger, bilateralTear film insufficiency of bilateral lacrimal glandsOther vitreous opacities, bilateralCorne al neovasculariza tion of both eyes 2 Derheimer OD Georgina. [address], [address] [place] [address], [id number], [place]. tel:[phone] Referring Provider: Scooter White, [address], [place], [address]. tel:[phone] [facility], [address] [place] [address], [id number], tel:[phone] [facility] Services KENTRELL LOPEZ No Information 6 Derheimer OD Georgina. [address], [address] [place] [address], [id number], [place]. tel:[phone] Referring Provider: Georgina Medina OD, [address], [place], [address] . tel:[phone] [facility], [address] [place] [address], [id number], tel:[phone] OPH CONSULT KENTRELL LOPEZ blurry vision (chief complaint) Myopia, bilateral 6 Derheimer OD Georgina. [address], [address], [place], [place], [id number], [place]. tel:[phone] Referring Provider: Georgina Medina OD, [address], [place], [address] . tel:[phone] [facility], [address] [place] [address], [id number], tel:[phone] OPH CONSULT KENTRELL LOPEZ No Information 1 Beth Cohenl. [address], [address], [place], [place], [id number], [place]. tel:[phone] Family History Family Member Type Diagnosis Age [...]
--- OUTSIDE RECORDS SUMMARY | 2024-09-02 21:18 | XMS_ITS | Encounter Summary ---
Author Organization [facility] Address [address] [place] [address] Phone Care Team Providers Care Decay Control Operator Name Role Phone Manda Singh MD Unavailable [phone] Robby Torres Primary Care Provider [phone] Scooter White DO Primary Care Provider Malik Cates MD Unavailable Ulices Marino MD Unavailable Yon Gutierrez MD Primary Care Provider Encounter Details Date Type Department Care Team (Late st Contact Info) Description 03/09/2020 Transcribe Orders [facility] Preop/Pacu II [address] [place] [id number] Walter Blake MD [address] [place] [address] Preop testing (Primary Dx) Social History Tobacco [...] COVID-19? Unable to assess 03/10/2020 1:32 PM TRUCK MECHANIC documented as of this encounter Plan of Treatment Upcoming Encounters Date Type Department Care Team (Late st Contact Info) Description 09/26/2024 1:00 PM CDT Office Visit [facility] - Neurology - [place] [address] [place] [address] Georgina Fontenot APRN, LINUX ADMINISTRATOR [address] [place] [address] documented as of this encounter Visit Diagnoses Diagnosis Preop testing- Primary Preoperative examination, unspecified documented in this encounter Additional Health Concerns Infection Onset Date Last Indicated Resolved Time COVID - 19 03/10/2020 03/10/2020 03/16/2020 11:4 0 AM TRUCK MECHANIC Assessment Noted Time PHQ-9 Depression Total Score: 0 02/11/20 20 12:57 PM CDT documented as of this encounter Care Teams Decay Control Operator Relationship Specialty Start Date End Date Robby Torres [address] [place] [address] PCP - General Family Medicine 02/11/20 03/16/21 Scooter White DO [address] [facility] [place] [address] PCP - General Internal Medicine 03/17/21 06/22/23 Yon Gutierrez MD 2 [facility] [place] [address] PCP - General Family Medicine 06/23/23 Manda Singh MD Obstetrics & Gynecology 02/11/20 Malik Cates MD #[address] [address] Consulting Physician Endocrinology 12/13/21 Ulices Marino MD #[address] [address] Consulting Physician Colon and Rectal Surgery 07/06/22 documented as of this encounter
--- OUTSIDE RECORDS SUMMARY | 2024-09-02 21:18 | XMS_ITS | Continuity of Care Document ---
Author Organization [facility] Address [address] [address] [place] [address] Phone Care Team Providers Care Payroll Accounting Specialist Name Role Phone Robby Torres MD Unavailable [...] Diagnoses Date Provider Providers Copied on Encounter [facility], [address] [facility] [place], [address], [place] tel:[phone] [facility] No Information 1 Brian Bustamante. [address], [place], [place], [address] , [place]. tel:[phone] [facility], [address], [place], [place], [address], [place] tel:[phone] [facility] No Information 0 Brian Bustamante. [address], [place], [place], [address] , [place]. tel:[phone] OFFICE/OUTPA TIENT VISIT, [facility], [place], [address], [place], [place], [address], [place] tel:[phone] [facility] anxiety1 (chief complaint) Generalized Anxiety DisorderHypothyroid ism 0 Brian Bustamante. [address], [place], [place], [address] , [place]. tel:[phone] Referring Provider: Robby Torres [address], [place], [place], [address]. tel:[phone] OFFICE/OUTPA TIENT VISIT, [facility], [place], [address], [place], [place], [address], [place] tel:[phone] [facility] anxiety1 (chief complaint) Generalized Anxiety DisorderGoiter 0 Brian Bustamante. [address], [place], [place], [address] , [place]. tel:[phone] Referring Provider: Robby Torres [address], [place], [place], [address]. tel:[phone] OFFICE/OUTPA TIENT VISIT, [facility], [place], [address], [place], [place], [address], [place] tel:[phone] [facility] thyroid nodule1 (chief complaint) anxiety1 (chief complaint) GoiterGeneralized Anxiety Disorder 0 Brian Menendez [address], [place], [place], [address] , [place]. tel:[phone] Referring Provider: Gissel Banks [address], [place], [place], [address]. tel:[phone] OFFICE/OUTPA TIENT VISIT, [facility], [place], [address], [place], [place], [address], [place] tel:[phone] [facility] anxiety1 (chief complaint) iron1 (chief complaint) thyroid1 (chief complaint) Disorder of iron metabolism, unspecifiedGoiterGe neralized Anxiety Disorder Lonnie-0 0 Brian Bustamante. [address], [place], [place], [address] , [place]. [phone] Referring Provider: Gissel Banks [address], [place], [place], [address]. tel:[phone] OFFICE/OUTPA TIENT VISIT, [facility], [place], [address], [place], [place], [address], [place] tel:[phone] [facility] ankle pain1 (chief complaint) fatigue1 (chief complaint) thyroid1 (chief complaint) anemia1 (chief complaint) Pain in right ankleFatigueAnemiaG oiter 0 Brian Bustamante. [address], [place], [place], [address] , [place]. tel:[phone] Referring Provider: Gissel Banks [address], [place], [place], [address]. tel:[phone] OFFICE/OUTPA TIENT VISIT, [facility], [place], [address], [place], [place], [address], [place] tel:[phone] [facility] rash1 (chief complaint) Allergic contact dermatitis due to plants, except food Aug- 0 Brian Bustamante. [address], [place], [place], [address] , [place]. [phone] Referring Provider: Gissel Banks [address], [place], [place], [address]. tel:[phone] OFFICE/OUTPA TIENT VISIT, [facility], [place], [address], [place], [place], [address], tel:[phone] [facility] Medicine thyroid1 (chief complaint) ferritin1 (chief complaint) IgA (chief complaint) fatigue1 (chief complaint) GoiterDisorder of iron metabolism, unspecifiedVitamin D deficiency, unspecifiedRaised level of immunoglobulinAnemi aH. pylori as the cause of diseases classified elsewhereFatigue 0 Brian Bustamante. [address] [facility] [place], [address] , . tel:[phone] Referring Provider: Gissel Banks [place], [address]. tel:[phone] PREV VISIT, NEW, AGE 18-39 [facility], [address] [place] [address] [address] [place], [address], tel:[phone] [facility] PHysical (chief complaint) Encntr for general adult medical exam w/o abnormal findings 0 Brian Bustamante. [address], [facility] A, [place], [place], [address] , [place]. tel:[phone] Referring Provider: Robby Torres [address] [place] [address], [id number]. tel:[phone] Family History Family Member Type Diagnosis Age [...] Referral Referred To: Jean Carlos BolañosJoe silva [address] [facility]
[address] [place], [place] [address] Ordered: Referrals: Allopathic & Osteopathic Physicians : [...] any dysphagia ankle pain1 Pt was at [employer] and she stepped on gravel [...] or swelling . 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
--- OUTSIDE RECORDS SUMMARY | 2024-09-02 21:18 | XMS_ITS | Encounter Summary ---
Author Organization [facility] Address [address] [place] [address] Care Team Providers Care Nuclear Waste Management Engineer Name Role Phone Scooter White DO Primary Care Provider Encounter Details Date Type Department Care Team (Late Contact Info) Description 11/06/2018 Lab Requisition [facility] Care Pathology Lab [address] [place] [address] Cindi Herrera MD [address] [place] [address] Enlarged lymph nodes Social History Tobacco Use Types Packs/Day Years Used Date Smoking Tobacco: Never Smokeless Tobacco: Never Alcohol Use Standard Drinks/Week Comments No 0 (1 standard drink = 0.6 oz pur e alcohol) Comments No Sex and Gender Information Value Date Recorded Sex Assigned at Not on file Legal Sex Female 1:08 PM [facility] Gender Identity Not on file Sexual Orientation Not on file documented as of this encounter Plan of Treatment Upcoming Encounters Date Type Department Care Team (Late Contact Info) Description 09/24/2024 1:00 PM CDT Appointment [facility]aternal [facility] [address] [place] [address] documented as of this encounter Procedures Procedure Name Priority Date/Time Associated Diagnosis Comments FLOW CYTOMETRY TISSUE PANEL Routine 11/05/2018 11:02 AM CDT Enlarged lymph nodes documented in this encounter Results * FLOW CYTOMETRY TISSUE PANEL (11/05/2018 11:02 AM CDT) Case Report Flow Cytometry Case: [id number] Authorizing Provider: Cindi Herrera MD Collected: 11/05/2018 11:02 AM Pathologist: Alexa Weinberg MD Received: 11/06/2018 02:01 PM Specimen: Cervical Lymph Node , Left 5:33 PM CDT [facility] PATHOLOGY LAB Final Diagnosis Lymph node, left cervical, flow cytometric immunophenotypic analysis: - No evidence of non-Hodgkin lymphoma. - See interpretation. 5:33 PM CDT [facility] PATH[facility] Flow Cytometry Interpretation The [...] the flow cytometry specimen is reviewed for software quality assurance analyst purposes. In summary, the left cervical lymph node specimen shows no evidence of a non-Hodgkin lymphoma. Correlation with additional clinical information and the concurrent biopsy specimen is required. KR 9 5:33 PM T [facility] Flow Cytometry Results Differential Result Comment Flow Cell Count /uL [id number] Total Viability % 86.0 Lymphocytes % 97 Dim CD45 Region % 0 Monocytes % 1 Granulocytes % 1 9 5:33 PM CDT [facility] Reason for test Enlarged lymph nodes 785.6 9 5:33 PM CDT [facility] Client Specimen ID # [id number] 9 5:33 PM [facility] Number of markers 16 were performed. A Flow CD3 A Flow CD10 A Flow CD20 A Flow CD23 A Flow CD2 A Flow CD4 A Flow CD1a A Flow CD5 A Flow CD19 A Flow CD34 A Flow CD45 A Flow CD7 A Flow CD8 A Flow CD30 A Bluff+CD19+ A Lambda+CD19+ 9 5:33 PM CDT [facility] Disclaimer Test performed at [facility], [address] [place], [place], [address]. *The established laboratory minimum viability is 70%. [...] clinical testing. 9 5:33 PM CDT [facility] PATH[facility] Embedded Images 5:33 PM CDT [facility] Pathology/Cytolo gy ENTIRE CERVICAL LYMPH NODE / Unknown 11/05/2018 11:02 AM CDT 11/06/2018 2:01 PM CDT Cindi Herrera MD LAB - PATHOLOGY/CYTOLOGY ORDERA BLES Final Result [facility] PATH[facility] [address] [place] [address]. [place] [address], [facility] [phone] documented in this encounter Visit Diagnoses Diagnosis Enlarged lymph nodes Enlargement of lymph nodes documented in this encounter Care Teams Nuclear Waste Management Engineer Relationship Specialty Start Date End Date Scooter White DO PCP - General 03/16/22 documented as of this encounter
--- OUTSIDE RECORDS SUMMARY | 2024-09-02 21:18 | XMS_ITS | Encounter Summary ---
Author Organization [facility] Address [address] [place] [address] Phone Care Team Providers Care Asphalt Plant Operator Name Role Phone Manda Singh MD Unavailable [phone] Scooter White DO Primary Care Provider Malik Cates MD Unavailable Ulices Marino MD Unavailable Yon Gutierrez MD Primary Care Provider Encounter Details Date Type Department Care Team (Late st Contact Info) Description 07/26/2021 Lab Requisition [facility] Laboratory Services [address] [place] [address] Edita Garza, CATH LAB TECH, PROPERTY MASTER [address] [place] [address] Encounter for pre-employment examination Social History Tobacco [...] PM CDT Office Visit [facility] - Neurology - [place] [address] [place] [address] Georgina Fontenot, CATH LAB TECH, ADMINISTRATIVE OPERATIONS COORDINATOR [address] [place] [address] documented as of this encounter Procedures Procedure [...] 2.7 >=1.1 AI 07/26/2021 10:00 PM CDT [facility] Blood No Phlebotomy Charged / Unknown 07/26/2021 9:00 AM CDT 07/26/2021 2:15 PM CDT Narrative [facility] - 07/26/2021 10:00 PM CDT <= 0.8 Negative. No detectable VZV IgG antibody. 0.9 - 1.0 Equivocal >=1.1 Positive Antibody testing was performed by multiplex flow immunoassay on the BioPlex platform. Edita Garza CATH LAB TECH, PROPERTY MASTER IMMUNOLOGY ORDERABL ES Final Result Performing Organization Address [facility] Co de Phone Number [facility] [address] [place] [address], [place] * (ABNORMAL) RUBEOLA (MEASLES) IGG (07/26/2021 9:00 AM CDT) MEASLES AB IGG 0.7(L) >=1.1 AI 07/26/2021 10:00 PM CDT [facility] Blood No Phlebotomy Charged / Unknown 07/26/2021 9:00 AM CDT 07/26/2021 2:15 PM CDT Narrative [facility] - 07/26/2021 10:00 PM CDT <= 0.8 Negative. No detectable Measles IgG antibody. 0.9 - 1.0 Equivocal >=1.1 Positive Antibody testing was performed by multiplex flow immunoassay on the BioPlex platform. us Edita L Behrends CATH LAB TECH, PROPERTY MASTER IMMUNOLOGY ORDERABL ES Final Result Performing Organization Address [facility] Co de Phone Number [facility] [address] [place] [address], [place] * RUBELLA IMMUNITY IGG (07/26/2021 9:00 AM CDT) [facility]A IMMUNITY Immune Immune, Invalid 07/26/2021 10:00 PM CDT [facility] Blood No Phlebotomy Charged / Unknown 07/26/2021 9:00 AM CDT 07/26/2021 2:15 PM CDT Narrative [facility] - 07/26/2021 10:00 PM CDT Antibody testing was performed by multiplex flow immunoassay on the BioPlex platform. us Edita L Behrenjohn CATH LAB TECH, PROPERTY MASTER CHEMISTRY ORDERABLE S Final Result Performing Organization Address [facility] de Phone Number [facility] [address] [place] [address], [place] * MUMPS IGG (07/26/2021 9:00 AM CDT) Pathologist [facility] Mumps Ab IgG 1.2 >=1.1 AI 07/26/2021 10:00 PM CDT [facility] Blood No Phlebotomy Charged / Unknown 07/26/2021 9:00 AM CDT 07/26/2021 2:15 PM CDT Narrative [facility] - 07/26/2021 10:00 PM CDT <= 0.8 Negative. No detectable Mumps IgG antibody. 0.9 - 1.0 Equivocal >=1.1 Positive Antibody testing was performed by multiplex flow immunoassay on the BioPlex platform. us Editahenry Garza CATH LAB TECH, PROPERTY MASTER IMMUNOLOGY ORDERABL ES Final Result Performing Organization Address [facility] Co de Phone Number [facility] [address] [place] [address], [place] * QUANTIFERON-TB GOLD PLUS (07/26/2021 9:00 AM CDT) Pathologist [facility] NIL CONTROL 0.04 <8.01 IU/mL 07/28/2021 1:01 PM CDT [facility] TB ANTIGEN 1 0.00 <0.35 IU/mL 07/28/2021 1:01 PM CDT [facility] TB ANTIGEN 2 0.00 <0.35 IU/mL 07/28/2021 1:01 PM CDT [facility] MITOGEN CONTROL 9.64 >0.49 IU/mL 07/29/19 1:01 PM CDT [facility] INTEPRETATION TB NEGATIVE NEGATIVE, NEGATIVE (TB antigen response less than 25% of internal negative control value) 07/28/2021 1:01 PM CDT [facility] Comment:No immune response t o Mycobacterium tuberculosis antigens was noted. M. tuberculosis infection unlikely. Blood No Phlebotomy Charged / Unknown 07/26/2021 9:00 AM CDT 07/26/2021 2:15 PM CDT Narrative [facility] - 07/28/2021 1:01 PM CDT A [...] otherwise immunocompromised individuals. https://www.cdc.gov/tb/publications/guidelines/testing.htm Edita Garza APRN, PROPERTY MASTER IMMUNOLOGY ORDERABL ES Final Result Performing Organization Address [facility] de Phone Number [facility] [address] [place] [address], [place] * HEPATITIS B SURFACE ANTIBODY (HBSAB) (07/26/2021 9:00 AM CDT) HEPATITIS B SURFACE ANTIBODY 8.33 mIU/mL [facility] ARCH [id number] 07/27/2021 12:02 AM CDT [facility] Comment: Grayzone Range: >=8.00 to <=12.00 The immune status of the individual should be further assessed considering other factors, such as clinical status, follow-up testing, associated risk factors and the use of additional diagnostic information. Blood No Phlebotomy Charged / Unknown 07/26/2021 9:00 AM CDT 07/26/2021 2:15 PM CDT Edita Garza APRN, PROPERTY MASTER CHEMISTRY ORDERABLE S Final Result Performing Organization Address [facility] de Phone Number [facility] [address] [place] [address], [place] documented in this encounter Visit Diagnoses Diagnosis Encounter for pre-employment examination Health examination of defined subpopulation documented in this encounter Additional Health Concerns Assessment Noted Time PHQ-9 Depression Total Score: 0 02/11/20 20 12:57 PM CDT documented as of this encounter Care Teams Asphalt Plant Operator Relationship Specialty Start Date End Date Scooter White DO [facility] [facility] [address] PCP - General Internal Medicine 03/17/21 06/22/23 Yon Gutierrez MD 2 [facility] [address] [place] [address] PCP - General Family Medicine 06/23/23 Manda Singh MD Obstetrics & Gynecology 02/11/20 Malik Cates MD #[address] [address] Consulting Physician Endocrinology 12/13/21 Ulices Marino MD #[address] [address] Consulting Physician Colon and Rectal Surgery 07/06/22 documented as of this encounter
--- NOTE | 2024-09-02 21:22 | PC.NURSE ---
Pt discharged with instructions to see urgent care for congestion, keep next scheduled appointment, and when to return to the unit, pt verbalizes understanding.
[2024-09-02 21:27] LABS: OBXCEM ROM Plus Negative (Negative)
== END 2024-09-02 21:22 | disposition home or self-care (01) ==
LOC: ANHOBOP 21:15
PROVIDERS: PCP Advanced Practice Midwife; Visit Provider Obstetrics & Gynecology
DX: O42.90 Premature rupture of membranes, unspecified as to length of time between rupture and onset of labor, unspecified weeks of gestation (principal); Z3A.00 Weeks of gestation of pregnancy not specified
CPT/HCPCS: 59025; 84112

== ENCOUNTER 2024-09-17 22:09 | Observation (INO) | payer OTHER, SELFPAY ==
--- OUTSIDE RECORDS SUMMARY | 2024-09-17 21:39 | XMS_ITS | Referral Summary ---
Author Organization [facility] Address [address] [place] [address] Care Team Providers Care Jig And Fixture Repairer Name Role Phone Robby Torres MD Unavailable [phone] Yon Gutierrez MD Primary Care Provider Malik Cates MD Unavailable Cindi Bryant NP Unavailable [phone] Sakshi Biggs DO Unavailable [phone] Encounters Date Type Department Care Team Description 08/09/2024 8:15 AM CDT Office Visit [facility] [address] [facility] [address] [place] [address] Sakshi Biggs, Otorrhea of right ear (Primary Dx) from Last 3 Months Allergies Active Allergy Reactions Criticality Noted Date Comments Cephalexin Hives Medium 12/21/2023 Prednisone Hives Medium 08/09/2024 Medications aspirin 81 mg enteric coated tablet Take 1 tablet (81 mg total) by mouth daily Active vit 79-rnhz-ejfxh-dh a 27mg iron- 800 mcg-250 mg capsule Take by mouth Active pantoprazole DR (PROTONIX) 40 mg EC tablet Take 1 tablet (40 mg total) by mouth daily Active ciprofloxacin (CILOXAN) 0.3 % ophthalmic solutionIndicati ons:Otorrhea of right ear 7 drops into Right EAR, NOT EYE, twice daily for 7 days 10 mL 08/09/2024 Active Active Problems Problem Noted Date Diagnosed [...] one by Dr. Davila for endometriosis at [facility] - this is her second period currently, [...] possible Assessment & Plan (06/20/2023 9:50 AM ELEMENTARY LIBRARIAN): Hearing test, plan for bilateral myringotomy with [...] managed by endocrinology - Dr. Cates (her grass farm laborer) tried some medications without success - insurance [...] managed by endocrinology - Dr. Cates (her grass farm laborer) tried some medications without success - insurance [...] managed by endocrinology - Dr. Cates (her grass farm laborer) tried some medications without success - insurance limitations can affect it - start Phentermine, taper up dose sent - f/u in 6 weeks Assessment & Plan (05/28/2023 3:41 PM ELEMENTARY LIBRARIAN): Wt Readings from Last 3 Encounters: 05/26/23 [...] months Assessment & Plan (05/28/2023 3:35 PM ELEMENTARY LIBRARIAN): - chronic, recurrent condition, worse - in [...] disease. Assessment & Plan (05/28/2023 3:36 PM ELEMENTARY LIBRARIAN): - chronic, recurring condition - has history [...] Recommend thyroid ultrasound. Instructed to inform her grass farm laborer about MRI findings. US Thyroid 09/2022 IMPRESSION: [...] recommended. Assessment & Plan (05/28/2023 3:28 PM ELEMENTARY LIBRARIAN): Chronic condition, stable/controlled Diagnosed in 2018 Currently [...] 02/13/2019 Assessment & Plan (05/28/2023 3:38 PM ELEMENTARY LIBRARIAN): - recent onset - was seen recently [...] 019 Assessment & Plan (05/26/2023 8:54 AM ELEMENTARY LIBRARIAN): - had EGD in past and was found to have H. Pylori which was being treated - no current issues at this time Chronic gastritis 11/26/2018 Overview (05/03/2023): EGD - H pylori, GI S/P hemorrhoidectomy 11/26/2018 Conductive hearing loss, middle ear 10/18/2018 Assessment & Plan (04/03/2024 2:03 PM ELEMENTARY LIBRARIAN): Avoid ear cleaning techniques Avoid water to ears Hearing test today was normal, ear tubes open suspect referred ear fullness from neck or jaw Chronic serous otitis media of left ear 10/19/19 19 Assessment & Plan (04/03/2024 1:03 PM ELEMENTARY LIBRARIAN): Avoid ear cleaning techniques Avoid water to [...] 05/28/2023 Overview (05/03/2023): Vaginitis;Recorded Elsewhere: No Location: [facility] Source: EHR Chronic: N Practice ID: [id number] Billable Time: 10:45:00 AM TMJ (temporomandibular joint syndrome) 01/04/2019 05/28/2023 Chronic gastritis 11/26/2018 05/26/2023 Prolapsed internal hemorrhoids, grade 4 09/26/2018 05/26/2023 Overview (09/26/2018): Added automatically from request for surgery [id number] Assessment & Plan (09/26/2018 2:45 PM CDT): [...] on file Legal Sex Female 10:18 AM ELEMENTARY LIBRARIAN Gender Identity Not on file Sexual Orientation Not on file Last Filed Vital Signs Vital Sign Reading Time Taken Comments Blood Pressure 138/88 04/06/2024 10:25 PM ELEMENTARY LIBRARIAN Pulse 78 04/06/2024 11:45 PM ELEMENTARY LIBRARIAN Temperature 36.3 C (97.4 F) 04/06/2024 10:25 PM ELEMENTARY LIBRARIAN Respiratory Rate 18 04/06/2024 10:25 PM ELEMENTARY LIBRARIAN Oxygen Saturation 100% 04/06/2024 11:45 PM ELEMENTARY LIBRARIAN Inhaled Oxygen Concentration - - Weight 85.7 kg (189 lb) 04/06/2024 10:25 PM ELEMENTARY LIBRARIAN Height 165.1 cm (5' 5) 04/06/2024 10:25 PM ELEMENTARY LIBRARIAN Body Mass Index 31.45 04/06/2024 10:25 PM ELEMENTARY LIBRARIAN Plan of Treatment Not on file Medical Devices Implanted Type Area Airport Operations Duty Manager Device Identifier Shelf Expiration Date Model / Serial / Lot [employer] 1.32mm 4.8mm Modify Ear T Tube Ventilation Ultrasil Sterile Blue [id number] - [id number] Implanted:Qty: 1 on 07/11/2023 by Sakshi Biggs DO at [facility] Left: Ear [employer] 01/03/2033 [id number] / / [id number] [employer] 1.32mm 4.8mm Modify Ear T Tube Ventilation Ultrasil Sterile Blue [id number] - [id number] Implanted:Qty: 1 on 07/11/2023 by Sakshi Biggs DO at [facility] Right: Ear [employer] 01/18/2033 [id number] / / [id number] [facility] Subscriber Plan / Payer (Ef fective 2021-Present) Name:Yessica Mo Relation to Subscriber:Spouse Name:Luis Antonio Mo Date of :1987 (Home) Address: [address] [place] [id number] Payer ID:[id number] (NAIC) Type:[facility] H[facility]/PPO Address: [place] [phone] Care Teams Jig And Fixture Repairer Relationship Specialty Start Date End Date Yon Gutierrez MD PCP - General Family Medicine 04/04/23 Robby Torres MD Referring Physician Family Medicine 08/22/19 Malik Cates MD [address] [place] [address] Referring Physician General Surgery 05/26/23 Cindi Bryant NP [address] [place] [address] Nurse Practitioner Obstetrics and Gynecology 05/26/23 Sakshi Biggs DO [address] [place] [address] [address] [address] Consulting Physician Otolaryngology 05/26/23
--- OUTSIDE RECORDS SUMMARY | 2024-09-17 21:39 | XMS_ITS | Encounter Summary ---
Author Organization [facility] Address [address] [place] [address] Phone Care Team Providers Care Cake Press Operator Name Role Phone Manda Singh MD Unavailable [phone] Scooter White DO Primary Care Provider Malik Cates MD Unavailable Ulices Marino MD Unavailable Yon Gutierrez MD Primary Care Provider Encounter Details Date Type Department Care Team (Late st Contact Info) Description 07/26/2021 Lab Requisition [facility] [address] [place] [address] Edita Garza, WORKFORCE DEVELOPMENT PROGRAM DIRECTOR, FIELD CROP FARM WORKER [address] [place] [address] Encounter for pre-employment examination Social History Tobacco [...] [facility] - [facility]rology - [place] [address] [place] [address] Georgina Fontenot, WORKFORCE DEVELOPMENT PROGRAM DIRECTOR, INSTALLATION SUPERVISOR [address] [place] [address] documented as of this encounter Procedures Procedure [...] 2.7 >=1.1 AI 07/26/2021 10:00 PM CDT [facility] Blood No Phlebotomy Charged / Unknown 07/26/2021 9:00 AM CDT 07/26/2021 2:15 PM CDT Narrative [facility] - 07/26/2021 10:00 PM CDT <= 0.8 Negative. No detectable VZV IgG antibody. 0.9 - 1.0 Equivocal >=1.1 Positive Antibody testing was performed by multiplex flow immunoassay on the BioPlex platform. Edita Garza WORKFORCE DEVELOPMENT PROGRAM DIRECTOR, FIELD CROP FARM WORKER IMMUNOLOGY ORDERABL ES Final Result Performing Organization Address [facility] Co de Phone Number [facility] [address] [place] [address], [place] * (ABNORMAL) RUBEOLA (MEASLES) IGG (07/26/2021 9:00 AM CDT) MEASLES AB IGG 0.7(L) >=1.1 AI 07/26/2021 10:00 PM CDT [facility] Blood No Phlebotomy Charged / Unknown 07/26/2021 9:00 AM CDT 07/26/2021 2:15 PM CDT Narrative [facility] - 07/26/2021 10:00 PM CDT <= 0.8 Negative. No detectable Measles IgG antibody. 0.9 - 1.0 Equivocal >=1.1 Positive Antibody testing was performed by multiplex flow immunoassay on the BioPlex platform. us Edita L Behrends WORKFORCE DEVELOPMENT PROGRAM DIRECTOR, FIELD CROP FARM WORKER IMMUNOLOGY ORDERABL ES Final Result Performing Organization Address City/[facility] Co de Phone Number [facility] [address] [place] [address], [place] * RUBELLA IMMUNITY IGG (07/26/2021 9:00 AM CDT) [facility] Immune Immune, Invalid 07/26/2021 10:00 PM CDT [facility] Blood No Phlebotomy Charged / Unknown 07/26/2021 9:00 AM CDT 07/26/2021 2:15 PM CDT Narrative [facility] - 07/26/2021 10:00 PM CDT Antibody testing was performed by multiplex flow immunoassay on the BioPlex platform. us Edita L Behrenjohn WORKFORCE DEVELOPMENT PROGRAM DIRECTOR, FIELD CROP FARM WORKER CHEMISTRY ORDERABLE S Final Result Performing Organization Address [facility] de Phone Number [facility] [address] [place] [address], [place] * MUMPS IGG (07/26/2021 9:00 AM CDT) Pathologist [facility] Mumps Ab IgG 1.2 >=1.1 AI 07/26/2021 10:00 PM CDT [facility] Blood No Phlebotomy Charged / Unknown 07/26/2021 9:00 AM CDT 07/26/2021 2:15 PM CDT Narrative [facility] - 07/26/2021 10:00 PM CDT <= 0.8 Negative. No detectable Mumps IgG antibody. 0.9 - 1.0 Equivocal >=1.1 Positive Antibody testing was performed by multiplex flow immunoassay on the BioPlex platform. us Editahenry Garza WORKFORCE DEVELOPMENT PROGRAM DIRECTOR, FIELD CROP FARM WORKER IMMUNOLOGY ORDERABL ES Final Result Performing Organization Address [facility] Co de Phone Number [facility] [address] [place] [address], [place] * QUANTIFERON-TB GOLD PLUS (07/26/2021 9:00 AM CDT) Pathologist [facility] NIL CONTROL 0.04 <8.01 IU/mL 07/28/2021 1:01 PM CDT [facility] TB ANTIGEN 1 0.00 <0.35 IU/mL 07/28/2021 1:01 PM CDT [facility] TB ANTIGEN 2 0.00 <0.35 IU/mL 07/28/2021 1:01 PM CDT [facility] MITOGEN CONTROL 9.64 >0.49 IU/mL 07/29/19 1:01 PM CDT [facility] INTEPRETATION TB NEGATIVE NEGATIVE, NEGATIVE (TB antigen response less than 25% of internal negative control value) 07/28/2021 1:01 PM CDT [facility] Comment:No immune response t o Mycobacterium tuberculosis antigens was noted. M. tuberculosis infection unlikely. Blood No Phlebotomy Charged / Unknown 07/26/2021 9:00 AM CDT 07/26/2021 2:15 PM CDT Narrative [facility] - 07/28/2021 1:01 PM CDT A [...] otherwise immunocompromised individuals. https://www.cdc.gov/tb/publications/guidelines/testing.htm Edita Garza APRN, FIELD CROP FARM WORKER IMMUNOLOGY ORDERABL ES Final Result Performing Organization Address [facility] de Phone Number [facility] [address] [place] [address], [place] * HEPATITIS B SURFACE ANTIBODY (HBSAB) (07/26/2021 9:00 AM CDT) HEPATITIS B SURFACE ANTIBODY 8.33 mIU/mL [facility] ARCH [id number] B 07/27/2021 12:02 AM CDT [facility] Comment: Grayzone Range: >=8.00 to <=12.00 The immune status of the individual should be further assessed considering other factors, such as clinical status, follow-up testing, associated risk factors and the use of additional diagnostic information. Blood No Phlebotomy Charged / Unknown 07/26/2021 9:00 AM CDT 07/26/2021 2:15 PM CDT Edita Garza APRN, FIELD CROP FARM WORKER CHEMISTRY ORDERABLE S Final Result Performing Organization Address [facility] de Phone Number [facility] [address] [place] [address], [place] documented in this encounter Visit Diagnoses Diagnosis Encounter for pre-employment examination Health examination of defined subpopulation documented in this encounter Additional Health Concerns Assessment Noted Time PHQ-9 Depression Total Score: 0 02/11/20 20 12:57 PM CDT documented as of this encounter Care Teams Cake Press Operator Relationship Specialty Start Date End Date Scooter White DO [facility] [facility] [place] [address] PCP - General Internal Medicine 03/17/21 06/22/23 Yon Gutierrez MD 2 [facility] [address] [place] [address] PCP - General Family Medicine 06/23/23 Manda Singh MD Obstetrics & Gynecology 02/11/20 Malik Cates MD #[address] [address] Consulting Physician Endocrinology 12/13/21 Ulices Marino MD #[address] [address] Consulting Physician Colon and Rectal Surgery 07/06/22 documented as of this encounter
--- OUTSIDE RECORDS SUMMARY | 2024-09-17 21:39 | XMS_ITS | Continuity of Care Document ---
Author Organization [facility] Address [address] [place] [address] [place] [address] Phone Care Team Providers Care Seismic Plotter Name Role Phone Robby Torres MD Unavailable [...] Date Provider Providers Copied on Encounter [facility], [address] [facility] [place], [id number], [place] tel:[phone] [facility] No Information 1 Brian Bustamante. [address], [address], [place], [place], [address] , [place]. tel:[phone] [facility], [address], [place], [place], [address], [place] tel:[phone] [facility] No Information 0 Brian Bustamante. [address], [address], [place], [place], [address] , [place]. tel:[phone] OFFICE/OUTPA TIENT VISIT, [facility], [address], [place], [place], [address], [place] tel:[phone] [facility] anxiety1 (chief complaint) Generalized Anxiety DisorderHypothyroid ism 0 Brian Bustamante. [address], [address], [place], [place], [address] , [place]. tel:[phone] Referring Provider: Robby Torres [address], [place], [place], [address]. tel:[phone] OFFICE/OUTPA TIENT VISIT, [facility], [address], [place], [place], [address], [place] tel:[phone] [facility] anxiety1 (chief complaint) Generalized Anxiety DisorderGoiter 0 Brian Bustamante. [address], [address], [place], [place], [address] , [place]. tel:[phone] Referring Provider: Robby Torres [address], [place], [place], [address]. tel:[phone] OFFICE/OUTPA TIENT VISIT, [facility], [address], [place], [place], [address], [place] tel:[phone] [facility] thyroid nodule1 (chief complaint) anxiety1 (chief complaint) GoiterGeneralized Anxiety Disorder 0 Brian Menendez [address], [address], [place], [place], [address] , [place]. tel:[phone] Referring Provider: Gissel Banks [address], [place], [place], [address]. tel:[phone] OFFICE/OUTPA TIENT VISIT, [facility], [address], [place], [place], [address], [place] tel:[phone] [facility] anxiety1 (chief complaint) iron1 (chief complaint) thyroid1 (chief complaint) Disorder of iron metabolism, unspecifiedGoiterGe neralized Anxiety Disorder Lonnie-0 0 Brian Bustamante. [address], [address], [place], [place], [address] , [place]. [phone] Referring Provider: Gissel Banks [address], [place], [place], [address]. tel:[phone] OFFICE/OUTPA TIENT VISIT, [facility], [address], [place], [place], [address], [place] tel:[phone] [facility] ankle pain1 (chief complaint) fatigue1 (chief complaint) thyroid1 (chief complaint) anemia1 (chief complaint) Pain in right ankleFatigueAnemiaG oiter 0 Brian Bustamante. [address], [address], [place], [place], [address] , [place]. tel:[phone] Referring Provider: Gissel Banks [address], [place], [place], [address]. tel:[phone] OFFICE/OUTPA TIENT VISIT, [facility], [address], [place], [place], [address], [place] tel:[phone] [facility] rash1 (chief complaint) Allergic contact dermatitis due to plants, except food Aug- 0 Brian Bustamante. [address], [address], [place], [place], [address] , [place]. [phone] Referring Provider: Gissel aBnks [address], [place], [place], [address]. tel:[phone] OFFICE/OUTPA TIENT VISIT, [facility], [address], [place], [place], [address], tel:[phone] [facility] thyroid1 (chief complaint) ferritin1 (chief complaint) IgA (chief complaint) fatigue1 (chief complaint) GoiterDisorder of iron metabolism, unspecifiedVitamin D deficiency, unspecifiedRaised level of immunoglobulinAnemi aH. pylori as the cause of diseases classified elsewhereFatigue 0 Brian Bustamante. [address] [facility] [place], [address] , . tel:[phone] Referring Provider: Gissel Banks [place], [place], [address]. tel:[phone] PREV VISIT, NEW, AGE 18-39 [facility], [address] [place] [address] [employer] [place], [address], tel:[phone] [facility] PHysical (chief complaint) Encntr for general adult medical exam w/o abnormal findings 0 Brian Bustamante. [address], [facility] [address], [place], [place], [address] , [place]. tel:[phone] Referring Provider: Robby Torres [address] [place] [address], [id number]. tel:[phone] Family History Family Member Type Diagnosis Age [...] Referral Referred To: Jean Carlos BolañosJoe silva [address] [facility]
[address] [place], [place] [id number] Ordered: Referrals: Allopathic & Osteopathic Physicians : [...] any dysphagia ankle pain1 Pt was at [employer] and she stepped on gravel [...] or swelling . fatigue1 Pt has mild restorative art embalmer mark fatigue Pt had sleep study done [...]
--- OUTSIDE RECORDS SUMMARY | 2024-09-17 21:39 | XMS_ITS | Encounter Summary ---
Author Organization [facility] Address [address] [place] [address] Phone Care Team Providers Care Consulting Senior Practice Director Name Role Phone Manda Singh MD Unavailable [phone] Robby Torres Primary Care Provider [phone] Scooter White DO Primary Care Provider Malik Cates MD Unavailable Ulices Marino MD Unavailable Yon Gutierrez MD Primary Care Provider Encounter Details Date Type Department Care Team (Late st Contact Info) Description 04/09/2020 Telephone [facility] [address] [address] [address] Saud Dalton MD [address] [place] [phone] Social History Tobacco Use Types Packs/Day [...] COVID-19? No / Unsure 03/20/2020 6:06 AM INLAYER documented as of this encounter Miscellaneous Notes * Telephone Encounter - Mahnaz Alaniz - 04/09/2020 2:50 PM CST Patient no showed her appointment, left voice message to call the office to reschedule. Sent out a no show letter. YER documented in this encounter Plan of Treatment Upcoming Encounters Date Type Department Care Team (Late st Contact Info) Description 09/26/2024 1:00 PM CDT Office Visit [facility] - Neurology [facility] [address] [place] [address] Georgina Fontenot APRN, WORKERS COMPENSATION MANAGER [address] [place] [address] documented as of this encounter Visit Diagnoses Not on filedocumented in this encounter Additional Health Concerns Assessment Noted Time PHQ-9 Depression Total Score: 0 02/11/20 20 12:57 PM CDT documented as of this encounter Care Teams Consulting Senior Practice Director Relationship Specialty Start Date End Date Robby Torres [address] [place] [address] PCP - General Family Medicine 02/11/20 03/16/21 Scooter White DO [facility] [place] [address] PCP - General Internal Medicine 03/17/21 06/22/23 Yon Gutierrez MD 2 [facility] [address] [place] [address] PCP - General Family Medicine 06/23/23 Mnada Singh MD Obstetrics & Gynecology 02/11/20 Malik Cates MD #[address] [address] Consulting Physician Endocrinology 12/13/21 Ulices Marino MD #[address] [address] Consulting Physician Colon and Rectal Surgery 07/06/22 documented as of this encounter
--- OUTSIDE RECORDS SUMMARY | 2024-09-17 21:39 | XMS_ITS | Encounter Summary ---
Author Organization [facility] Address [address] [place] [address] Phone Care Team Providers Care Day Care Teacher Name Role Phone Manda Singh MD Unavailable [phone] Robby Torres Primary Care Provider [phone] Scooter White DO Primary Care Provider Malik Cates MD Unavailable Ulices Marino MD Unavailable Yon Gutierrez MD Primary Care Provider Encounter Details Date Type Department Care Team (Late st Contact Info) Description 03/09/2020 Transcribe Orders [facility] Preop/Pacu II [address] [place] [address] Walter Blake MD [address] [place] [address] Preop testing (Primary Dx) Social History Tobacco [...] COVID-19? Unable to assess 03/10/2020 1:32 PM ORACLE SPECIALIST documented as of this encounter Plan of Treatment Upcoming Encounters Date Type Department Care Team (Late st Contact Info) Description 09/26/2024 1:00 PM CDT Office Visit [facility] - Neurology - [place] [address] [place] [address] Georgina Fontenot APRN, DRY FOLDER CLOTH [address] [place] [address] documented as of this encounter Visit Diagnoses Diagnosis Preop testing- Primary Preoperative examination, unspecified documented in this encounter Additional Health Concerns Infection Onset Date Last Indicated Resolved Time COVID - 19 03/10/2020 03/10/2020 03/16/2020 11:4 0 AM ORACLE SPECIALIST Assessment Noted Time PHQ-9 Depression Total Score: 0 02/11/20 20 12:57 PM CDT documented as of this encounter Care Teams Day Care Teacher Relationship Specialty Start Date End Date Robby Torres [address] [place] [address] PCP - General Family Medicine 02/11/20 03/16/21 Scooter White DO [address] [facility] [place] [address] PCP - General Internal Medicine 03/17/21 06/22/23 Yon Gutierrez MD 2 [facility] [place] [address] PCP - General Family Medicine 06/23/23 Manda Singh MD Obstetrics & Gynecology 02/11/20 Malik Cates MD #[address] [address] Consulting Physician Endocrinology 12/13/21 Ulices Marino MD #[address] [address] Consulting Physician Colon and Rectal Surgery 07/06/22 documented as of this encounter
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
--- OUTSIDE RECORDS SUMMARY | 2024-09-17 21:39 | XMS_ITS | Clinical Summary ---
Author Organization [facility] Address [address] [facility], [address] [address] Phone Care Team Providers Care Supervisor Color Making Name Role Phone Manda Singh MD Unavailable [phone] Malik Cates MD Unavailable Ulices Marino [...] Transcribe Orders [facility] [address] [place] [address] Provider, Not On File Low back pain, [...] 97.5 kg (215 lb) 04/19/2023 8:07 AM BIODIESEL PRODUCT DEVELOPMENT MANAGER Height 165.1 cm (5' 5) 04/19/2023 8:07 AM BIODIESEL PRODUCT DEVELOPMENT MANAGER Body Mass Index 35.78 04/19/2023 8:07 AM BIODIESEL PRODUCT DEVELOPMENT MANAGER Plan of Treatment Upcoming Encounters Date Type Department Care Team (Late st Contact Info) Description 09/26/2024 1:00 PM CDT Office Visit [facility] - Neurology [facility] [address] [place] [address] Georgina Fontenot, CHIEF TECHNICAL OFFICER, BOTTOM TURNING LATHE TENDER [address] [place] [address] Health Maintenance Due Date Last Done Comments [...] this topic Medical Devices Implanted Type Area Locomotive Firer Device Identifier Shelf Expiration Date Model / Serial / Lot Tube Ventilation 5mm Carey Triune - [id number] Implanted:Qty: 1 on 11/05/2018 by Jordon Deng MD at [facility] IMPLANT Left: Ear [employer] 04/06/2020 510-122 / [id number] / [id number] Description:Ear tubes came f rom the same package Tube Ventilation 5mm Carey Triune - [id number] Implanted:Qty: 1 on 11/05/2018 by Jordon Deng MD at [facility] IMPLANT Right: Ear [employer] 04/06/2020 510-122 / [id number] / [id number] Description:Ear tubes came f rom the same package Insurance * Guarantor: [facility] Account Type Relation to Patient Date of Phone Billing Address Institutional Other [address] [place] [address] Care Teams Supervisor Color Making Relationship Specialty Start Date End Date Yon Gutierrez MD 2 [facility] [address] [place] [address] PCP - General Family Medicine 06/23/23 Manda Singh MD Obstetrics & Gynecology 02/11/20 Malik Cates MD [address] [id number] Consulting Physician Endocrinology 12/13/21 Ulices Marino MD [address] [address] Consulting Physician Colon and Rectal Surgery 07/06/22
--- OUTSIDE RECORDS SUMMARY | 2024-09-17 21:39 | XMS_ITS | Encounter Summary ---
Author Organization [facility] Address [address] [address] Care Team Providers Care Semiconductor Wafers Etch Operator Name Role Phone Scooter White DO Primary Care Provider [phone] Encounter Details Date Type Department Care Team (Late Contact Info) Description 11/06/2018 Lab Requisition [facility] Care Pathology Lab [address] [place] [address] Cindi Herrera MD [address] [place] [address] Enlarged lymph nodes Social History Tobacco Use Types Packs/Day Years Used Date Smoking Tobacco: Never Smokeless Tobacco: Never Alcohol Use Standard Drinks/Week Comments No 0 (1 standard drink = 0.6 oz pur e alcohol) Comments No Sex and Gender Information Value Date Recorded Sex Assigned at Not on file Legal Sex Female 1:08 PM CLAY GRINDER Gender Identity Not on file Sexual Orientation Not on file documented as of this encounter Plan of Treatment Upcoming Encounters Date Type Department Care Team (Late st Contact Info) Description 09/24/2024 1:00 PM CDT Hospital Encounter [facility] [place] [facility] M[facility] & Care [address] [place] [address] documented as of this encounter Procedures Procedure Name Priority Date/Time Associated Diagnosis Comments FLOW CYTOMETRY TISSUE PANEL Routine 11/05/2018 11:02 AM CDT Enlarged lymph nodes documented in this encounter Results * FLOW CYTOMETRY TISSUE PANEL (11/05/2018 11:02 AM CDT) Case Report Flow Cytometry Case: [id number] Authorizing Provider: Cindi Herrera MD Collected: 11/05/2018 11:02 AM Pathologist: Alexa Weinberg MD Received: 11/06/2018 02:01 PM Specimen: Cervical Lymph Node , Left 5:33 PM CDT [facility] PATHOLOGY LAB Final Diagnosis Lymph node, left cervical, flow cytometric immunophenotypic analysis: - No evidence of non-Hodgkin lymphoma. - See interpretation. 5:33 PM CDT [facility] PATHOLOGY LAB Flow Cytometry Interpretation The left [...] the flow cytometry specimen is reviewed for lead quality control technician purposes. In summary, the left cervical lymph node specimen shows no evidence of a non-Hodgkin lymphoma. Correlation with additional clinical information and the concurrent biopsy specimen is required. KR 9 5:33 PM T [facility] PATHOLOGY LAB Flow Cytometry Results Differential Result Comment Flow Cell Count /uL [id number] Total Viability % 86.0 Lymphocytes % 97 Dim CD45 Region % 0 Monocytes % 1 Granulocytes % 1 9 5:33 PM CDT [facility] PATHOLOGY [facility] Reason for test Enlarged lymph nodes 785.6 9 5:33 PM CDT [facility] PATHOLOGY LAB Client Specimen ID # [id number] 9 5:33 PM [facility] PATHOLOGY LAB Number of markers 16 were performed. A Flow CD3 A Flow CD10 A Flow CD20 A Flow CD23 A Flow CD2 A Flow CD4 A Flow CD1a A Flow CD5 A Flow CD19 A Flow CD34 A Flow CD45 A Flow CD7 A Flow CD8 A Flow CD30 A [place]+CD19+ A Lambda+CD19+ 9 5:33 PM CDT [facility] PATHOLOGY LAB Disclaimer Test performed at [facility], [address] [place], [place], [address]. *The established laboratory minimum viability is 70%. [...] complexity clinical testing. 9 5:33 PM CDT [facility] PATHOLOGY LAB Embedded Images 9 5:33 PM CDT [facility] PATHOLOGY [facility] Pathology/Cytolo gy ENTIRE CERVICAL LYMPH NODE / Unknown 11/05/2018 11:02 AM CDT 11/06/2018 2:01 PM CDT Cindi Herrera MD LAB - PATHOLOGY/CYTOLOGY ORDERA BLES Final Result [facility] PATHOLOGY LAB [address] [place] [address]. [place] [address], [facility] [phone] documented in this encounter Visit Diagnoses Diagnosis Enlarged lymph nodes Enlargement of lymph nodes History of pre-eclampsia in prior , currently (HCC)- Primary with other poor obstetric history Dichorionic diamniotic twin in second trimester ([facility]) Twin , antepartum 28 weeks gestation of ([facility]) state, incidental Supervision of high risk in second trimester (HCC) Unspecified high-risk Obesity affecting in second trimester, unspecified obesity type ([facility]) Encounter for follow-up ultrasound of anatomy ([facility]) Encounter for ultrasound to assess growth ([facility]) documented in this encounter Care Teams Semiconductor Wafers Etch Operator Relationship Specialty Start Date End Date Scooter White DO PCP - General 03/16/22 documented as of this encounter
--- OUTSIDE RECORDS SUMMARY | 2024-09-17 21:39 | XMS_ITS | Clinical Summary ---
Author Organization [facility] [employer] Address [address] [place] [address] Care Team Providers Care Per Diem Registered Nurse Name Role Phone Scooter White DO Primary Care Provider [phone] Source Comments [facility],non-owned Affiliates and Associated Physician Practices is amultiple site organization consisting of ambulatory clinics and hospital sitesin [place], [place], [place] and [place]. This disclosure is being madepursuant to the Care Everywhere program and may not contain all information available regarding this patient. Last updated 18.[facility] [employer] Allergies Active Allergy Reactions Criticality Noted Date [...] - 08/27/2024 11:59 PM CDT Hospital Encounter [facility] [address] [place] [address] Christiano Tristan MD Discharge Disposition: Home or Self Care 07/31/2024 12:59 PM CDT - 07/31/2024 11:59 PM CDT Hospital Encounter [facility] [address] [place] [address] Katina Ewing MD Discharge Disposition: Home or Self Care 07/31/2024 12:59 PM CDT - 07/31/2024 11:59 PM CDT Hospital Encounter [facility] [address] [place] [address] Katina Ewing MD Discharge Disposition: Home or [...] on file 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 Gender Identity Not on file Sexual Orientation [...] 2:00 PM CDT Height 165.1 cm (5' 5) 07/31/2024 2:00 PM CDT Body Mass Index 36.44 07/31/2024 2:00 PM CDT Plan of Treatment Upcoming Encounters Date Type Department Care Team (Late st Contact Info) Description 09/24/2024 1:00 PM CDT Hospital Encounter [facility] Maternal & Care [address] [place], [place] [id number] Health Maintenance Due Date Last Done Comments PAP SMEAR 1993 HEPATITIS C SCREENING 01/02/2011 DTAP/TDAP/TD VACCINES (1 - Tdap) 01/07/2012 HEPATITIS B VACCINE (1 of 3 - 19+ 3-dose series) 01/07/2012 COVID-19 VACCINE (3 - 2023-2 5 season) 2024 08/06/2021, 07/16/2021 DEPRESSION SCREENING 05/08/2024 OB-ONE HOUR GLUCOSE 09/08/2024 OB-TDAP CURRENT 09/15/2024 OB-RHOGAM INJECTION 09/22/2024 INFLUENZA VACCINE (Season Ended) [...] CDT Dichorionic diamniotic twin in second trimester ([facility]) History of pre-eclampsia in prior , currently ([facility]) 24 weeks gestation of ([facility]) Supervision of high risk in second trimester ([facility]) SONOGRAM - COMPLETE Routine 07/31/2024 1 [...] History ====== OB History 4. Para 3 [id number] 1. live 2011. Gest. age 41 w [...] 1 lb 11 oz EFW by Hadlock ([id number]) EFW discordance 7.5 % accelerated Fetus B: Biometry BPD 56.5 mm 23w 2d 27% Hadlock HC 211.7 mm 23w 2d 17% Hadlock AC 202.4 mm 24w 6d 77% Hadlock Femur 43.7 mm 24w 2d 59% Hadlock HC / AC 1.05 -/- Hadlock Weight Calculation: EFW 695 g 74% Hadlock EFW (lb,oz) 1 lb 9 oz EFW by Hadlock ([id number]) EFW discordance 7.5 % appropriate Fetus A: [...] view. RVOT view. LVOT view. 3-vessel view. 8-ylnxmi-vdhkwoy view. Bicaval view. Ductal arch view. Interventricular [...] Thorax 4-chamber view. LVOT view. 3-vessel view. 0-jyqesf-hnumgjm view. Aortic arch view. Bicaval view. Interventricular [...] to complete anatomic survey Coding ====== Procedures [id number]: US Preg Uterus Follow Up. x2 Graduway PACS Anatomical Region Laterality Modality Other 08/27/2024 12:5 2 PM CDT R Bert Garcia MD [facility] ORDERABLES Edited Result - Final from Last 3 Months Insurance Care Teams Per Diem Registered Nurse Relationship Specialty Start Date End Date Scooter White DO PCP - General 03/16/22
--- OUTSIDE RECORDS SUMMARY | 2024-09-17 21:39 | XMS_ITS | Continuity of Care Document ---
Author Organization [facility] Address [address] [place] [address] [address] [place] [address] Phone Care Team Providers Care Adult Parole Officer Name Role Phone Carol OD OD, Georgina [...] Active Procedures Procedure Date OFFICE/OUTPATIENT VISIT, [facility] Comp cont lens eval No Charge Visit N/C Glasses Check Advance Directives Directive Yes / No Effective Date File Name No Information Encounters Encounter Description Practice Location Reason(s) For Visit Diagnoses Date Provider Providers Copied on Encounter [facility], [address] [place] [address] [address], [place], [place], [id number], tel:[phone] [facility]RE[facility]OPE[facility] No Information 3 Carol OD Georgina. [address], [address], [place], [place], [id number], [place]. tel:[phone] Referring Provider: Georgina Medina OD, [address], [place], [address] . tel:[phone] OFFICE/OUTPA TIENT VISIT, [facility], [address] [place] [address], [id number], tel:[phone] [facility]OPEZ blurry vision (chief complaint) dry eye (chief complaint) Krystin's thyroiditisMyo roger, bilateralTear film insufficiency of bilateral lacrimal glandsOther vitreous opacities, bilateralCorne al neovasculariza tion of both eyes 2 Derheimer OD Georgina. [address], [address] [place] [address], [id number], [place]. tel:[phone] Referring Provider: Scooter White, [address], [place], [address]. tel:[phone] [facility], [address] [place] [address], [id number], tel:[phone] [facility] KENTRELL LOPEZ No Information 6 Derheimer OD Georgina. [address], [address] [place] [address], [id number], [place]. tel:[phone] Referring Provider: Georgina Medina OD, [address], [place], [address] . tel:[phone] [facility], [address] [place] [address], [id number], tel:[phone] OPH CONSULT KENTRE[facility] LOPEZ blurry vision (chief complaint) Myopia, bilateral 6 Derheimer OD Georgina. [address], [place], [place], [id number], [place]. tel:[phone] Referring Provider: Georgina Medina OD, [address], [place], [address] . tel:[phone] [facility], [address] [place] [address], [id number], tel:[phone] OPH CONSULT KENTRE[facility] LOPEZ No Information 1 Beth Cohenl. [address], [address], [place], [place], [id number], [place]. tel:[phone] Family History Family Member Type Diagnosis Age [...]
--- OUTSIDE RECORDS SUMMARY | 2024-09-17 21:40 | XMS_ITS | Data Portability ---
Author Organization [facility] TJCathy [place] Address [address] [address] Care Team Providers Care International Trade Specialist Name Role Phone ZO MORA OTHER Assessment [...] w/ auto diff 2018 019 [facility], [address] [place] [address], [place], [address], 9 06:40:13 ferritin, serum or plasma 2018 019 [facility], [address] [place] [address], [place], [address], 9 06:40:14 iron + total iron-bindin g capacity (TIBC), serum 2018 019 [facility], [address] [place] [address], [place], [address], 9 06:40:14 HIV 1+2 AB + HIV 1 p24 Ag, qualitative immunoassay , serum 2018 019 [facility], [address] [facility] [address], [place], [address], 9 07:12:01 HBsAg (hepatitis B surface Ag), EIA, serum 2018 019 [facility], [address], [place], [address], 9 07:12:02 hepatitis C Ab, signal-to-c utoff, serum or plasma 2018 019 [facility], [address], [place], [address], 9 07:12:01 RPR (rapid plasma reagin), serum 2018 019 [facility], [address] [facility], [place], [address], 9 07:12:00 hsv (1+2) igg Ab, serum 2018 019 [facility], [address] [facility], [address], [place], [address], 9 07:12:00 CBC w/ auto diff 2018 019 [facility], [address] [facility], [address], [place], [address], 9 07:11:59 Referral general surgeon referral 2018 019 LANA Moralez MD, [address] [facility] , [address], [place], [address], 9 12:38:24 ENT referral - Saw Dr. Mora --- need a second opinion. 2018 019 [facility], [address] [facility], [address], [place], [address], 9 17:55:21 Procedures None recorded. Surgeries None recorded. Imaging None recorded. Medication Orders ferrous sulfate 325 mg (65 mg iron) tablet [address] [facility] [address] [facility], [address] [place], [address], 9 11:26:58 Mucinex 600 mg tablet, extended release [address] [facility], [address] [place], [address], 9 00:24:12 ferrous sulfate 325 mg (65 mg iron) tablet [address] [facility], [address] [place], [address], 9 12:48:40 Tessalon Perles 100 mg capsule [address] [facility], [address] [place], [address], 9 00:24:06 Patient TargetsNo targets recorded. Patient Instructions Encounter Date Encounter Id Patient Instructions Last Modified By Organization Details Last Modified Time 07/27/2018 [id number] upper respirator y infection (cold): care instructions Not available 07/27/2018 13:23:41 08/29/2018 [id number] hemorrhoids: car e instructions Not available 08/29/2018 16:13:52 anemia: care instructions Not available 08/29/2018 18:08:26 09/05/2018 [id number] Acute Sinusitis: Care Instructions Not available 09/05/2018 12:48:40 11/13/2018 [id number] hemorrhoids: car e instructions Not available 11/27/2018 00:17:15 02/13/2019 [id number] dizziness: care instructions Not available 02/13/2019 11:26:58 electrocardiogra m interpretation* ATHENAFAX Not available 03/13/2019 15:05:29 Reason for Referral ENT Referral for Cervical ly mphadenopathy Saw Dr. Mora --- need a second opinion. Referring Physician: Lucero Sandoval, Family Medicine, Encounter Date: 07/27/2018 General Surgeon Referral for Hemorrhoids Referring Physician: Ricardo Ramirez, GIS PROGRAMMER, Encounter Date: 08/29/2018 Results Created Date Observation Date Name Description Value Unit Range Abnormal Flag Note LastModifiedBy Organization Detail LastModifiedTime 07/04/19 19 07/05/2018 TSH + free T4, serum TSH 3.080 uIU/m L 0.450- 4.500 Not Available [facility] ([facility]) [address] [place], [address], 07/05/2018 09:23:03 07/04/19 19 07/05/2018 TSH + free T4, serum T4,free(dire ct) 1.06 NG/dL 0.82-1 .77 Not Available [facility] ([facility]) [address] [place], [address], 07/05/2018 09:23:03 07/04/19 19 07/04/2018 CBC w/ auto diff WBC 7.2 x10e3 /uL 3.4-10 .8 Not Available [facility] ([facility]) [address] [place], [address], 07/05/2018 09:23:03 07/04/19 19 07/04/2018 CBC w/ auto diff RBC 4.87 x10e6 /uL 3.77-5 .28 Not Available [facility] ([facility]) [address] [place], [address], 07/05/2018 09:23:03 07/04/19 19 07/04/2018 CBC w/ auto diff hemoglobin 11.5 g/dL 11.1-1 5.9 Not Available [facility] ([facility]) [address] [place], [address], 07/05/2018 09:23:03 07/04/19 19 07/04/2018 CBC w/ auto diff hematocrit 36.2 % 34.0-4 6.6 Not Available [facility] ([facility]) [address] [facility], [place], [address], 07/05/2018 09:23:03 07/04/19 19 07/04/2018 CBC w/ auto diff MCV 74 fL 79-97 below low normal Not Available [facility] ([facility]) [address] [facility], [place], [address], 07/05/2018 09:23:03 07/04/19 19 07/04/2018 CBC w/ auto diff MCH 23.6 pg 26.6-3 3.0 below low normal Not Available [facility] ([facility]) [address] [facility], [place], [address], 07/05/2018 09:23:03 07/04/19 19 07/04/2018 CBC w/ auto diff MCHC 31.8 g/dL 31.5-3 5.7 Not Available [facility] ([facility]) [address] [facility], [place], [address], 07/05/2018 09:23:03 07/04/19 19 07/04/2018 CBC w/ auto diff RDW 16.0 % 12.3-1 5.4 above high normal Not Available [facility] ([facility]) [address] [facility], [place], [address], 07/05/2018 09:23:03 07/04/19 19 07/04/2018 CBC w/ auto diff platelets 480 x10e3 /uL 150-37 9 above high normal Not Available [facility] ([facility]) [address] [facility], [place], [address], 07/05/2018 09:23:03 07/04/19 19 07/04/2018 CBC w/ auto diff neutrophils 64 % not estab. Not Available [facility] ([facility]) [address] [facility], [place], [address], 07/05/2018 09:23:03 07/04/19 19 07/04/2018 CBC w/ auto diff lymphs 28 % not estab. Not Available [facility] ([facility]) [address] [place], [address], 07/05/2018 09:23:03 07/04/19 19 07/04/2018 CBC w/ auto diff monocytes 6 % not estab. Not Available [facility] ([facility]) [address] [place], [address], 07/05/2018 09:23:03 07/04/19 19 07/04/2018 CBC w/ auto diff eos 1 % not estab. Not Available [facility] ([facility]) [address] [place], [address], 07/05/2018 09:23:03 07/04/19 19 07/04/2018 CBC w/ auto diff basos 1 % not estab. Not Available [facility] ([facility]) [address] [facility], [place], [address], 07/05/2018 09:23:03 07/04/1907/04/2018 CBC w/ auto diff immature cells RESERVOIR ENGINEERING CONSULTANT Not Available [facility] ([facility]) [address] [place], [address], 07/05/2018 09:23:03 07/04/19 19 07/04/2018 CBC w/ auto diff neutrophils (absolute) 4.6 x10e3 /uL 1.4-7. 0 Not Available [facility] ([facility]) [address] [place], [address], 07/05/2018 09:23:03 07/04/19 19 07/04/2018 CBC w/ auto diff lymphs (absolute) 2.0 x10e3 /uL 0.7-3. 1 Not Available [facility] ([facility]) [address] [place], [address], 07/05/2018 09:23:03 07/04/19 19 07/04/2018 CBC w/ auto diff monocytes(ab solute) 0.5 x10e3 /uL 0.1-0. 9 Not Available [facility] ([facility]) [address] [place], [address], 07/05/2018 09:23:03 07/04/19 19 07/04/2018 CBC w/ auto diff eos (absolute) 0.1 x10e3 /uL 0.0-0. 4 Not Available [facility] ([facility]) [address] [facility], [place], [address], 07/05/2018 09:23:03 07/04/19 19 07/04/2018 CBC w/ auto diff baso (absolute) 0.1 x10e3 /uL 0.0-0. 2 Not Available [facility] ([facility]) [address] [facility], [place], [address], 07/05/2018 09:23:03 07/04/19 19 07/04/2018 CBC w/ auto diff immature granulocytes 0 % not estab. Not Available [facility] ([facility]) [address] [place], [address], 07/05/2018 09:23:03 07/04/19 19 07/04/2018 CBC w/ auto diff immature grans (abs) 0.0 x10e3 /uL 0.0-0. 1 Not Available [facility] ([facility]) [address] [place], [address], 07/05/2018 09:23:03 07/04/19 19 07/04/2018 CBC w/ auto diff NRBC RESERVOIR ENGINEERING CONSULTANT Not Available [facility] ([facility]) [address] [place], [address], 07/05/2018 09:23:03 07/04/19 19 07/04/2018 CBC w/ auto diff hematology comments: RESERVOIR ENGINEERING CONSULTANT Not Available [facility] ([facility]) [address] [facility], [place], [address], 07/05/2018 09:23:03 07/04/19 19 07/05/2018 CMP, serum or plasm a glucose 90 mg/dL 65-99 Not Available [facility] ([facility]) [address] [place], [address], 07/05/2018 09:23:04 07/04/19 19 07/05/2018 CMP, serum or plasm a BUN 9 mg/dL 6-20 Not Available [facility] ([facility]) [address] [place], [address], 07/05/2018 09:23:04 07/04/19 19 07/05/2018 CMP, serum or plasm a creatinine 0.66 mg/dL 0.57-1 .00 Not Available [facility] ([facility]) [address] [place], [address], 07/05/2018 09:23:04 07/04/19 19 07/05/2018 CMP, serum or plasm a eGFR if nonafricn AM 123 mL/mi n/1.7 3 >59 Not Available [facility] ([facility]) [address] [place], [address], 07/05/2018 09:23:04 07/04/19 19 07/05/2018 CMP, serum or plasm a eGFR if africn AM 142 mL/mi n/1.7 3 >59 Not Available [facility] ([facility]) [address] [place], [address], 07/05/2018 09:23:04 07/04/19 19 07/05/2018 CMP, serum or plasm a BUN/creatini ne ratio 14 9-23 Not Available [facility] ([facility]) [address] [place], [address], 07/05/2018 09:23:04 07/04/19 19 07/05/2018 CMP, serum or plasm a sodium 139 mmol/ L 134-14 4 Not Available [facility] ([facility]) [address] [facility] [place], [address], 07/05/2018 09:23:04 07/04/19 19 07/05/2018 CMP, serum or plasm a potassium 4.4 mmol/ L 3.5-5. 2 Not Available [facility] ([facility]) [address] [facility] [place], [address], 07/05/2018 09:23:04 07/04/19 19 07/05/2018 CMP, serum or plasm a chloride 102 mmol/ L 96-106 Not Available [facility] ([facility]) [address] [facility] [place], [address], 07/05/2018 09:23:04 07/04/19 19 07/05/2018 CMP, serum or plasm a carbon dioxide, total 23 mmol/ L 20-29 Not Available [facility] ([facility]) [address] [facility] [place], [address], 07/05/2018 09:23:04 07/04/1907/05/2018 CMP, serum or plasm a calcium 9.7 mg/dL 8.7-10 .2 Not Available [facility] ([facility]) [address] [facility] [place], [address], 07/05/2018 09:23:04 07/04/19 19 07/05/2018 CMP, serum or plasm a protein, total 8.1 g/dL 6.0-8. 5 Not Available [facility] ([facility]) [address] [facility] [place], [address], 07/05/2018 09:23:04 07/04/1907/05/2018 CMP, serum or plasm a albumin 4.6 g/dL 3.5-5. 5 Not Available [facility] ([facility]) [address] [facility] [place], [address], 07/05/2018 09:23:04 07/04/19 19 07/05/2018 CMP, serum or plasm a globulin, total 3.5 g/dL 1.5-4. 5 Not Available [facility] ([facility]) [address] [facility] [place], [address], 07/05/2018 09:23:04 07/04/1907/05/2018 CMP, serum or plasm a A/G ratio 1.3 1.2-2. 2 Not Available [facility] ([facility]) [address] [facility] [place], [address], 07/05/2018 09:23:04 07/04/1907/05/2018 CMP, serum or plasm a bilirubin, total 0.3 mg/dL 0.0-1. 2 Not Available [facility] ([facility]) [address] [place], [address], 07/05/2018 09:23:04 07/04/1907/05/2018 CMP, serum or plasm a alkaline phosphatase 68 IU/L 39-117 Not Available [facility]) [address] [facility] [place], [address], 07/05/2018 09:23:04 07/04/1907/05/2018 CMP, serum or plasm a AST (SGOT) 20 IU/L 0-40 Not Available [facility] ([facility]) [address] [place], [address], 07/05/2018 09:23:04 07/04/1907/05/2018 CMP, serum or plasm a ALT (SGPT) 15 IU/L 0-32 Not Available [facility] ([facility]) [address] [place], [address], 07/05/2018 09:23:04 07/04/1907/05/2018 cytom egalo virus (cmv) igg+i gm Ab, serum cytomegalovi uyng (CMV) Ab, IgG <0.60 U/mL 0.00-0 .59 Negat hayde <0.60 Equiv ocal 0.60 - 0.69 Posit hayde >0.69 Not Available [facility] ([facility]) [address] [facility], [place], [address], 07/05/2018 09:23:04 07/04/1907/05/2018 cytom egalo virus (cmv) igg+i gm Ab, serum cytomegalovi yung (CMV) Ab, IgM <30.0 AU/mL 0.0-29 .9 Negat hayde <30.0 Equiv ocal 30.0 - 34.9 Posit hayde >34.9 A posit hayde resul t is gener ally indic ative of acute infec tion, react ivati on or persi stent IgM produ ction . Not Available [facility] ([facility]) [address] [facility], [place], [address], 07/05/2018 09:23:04 07/04/1907/05/2018 RPR (rapi d plasm a reagi n), serum RPR Non Reacti ve non reacti ve Not Available [facility] ([facility]) [address] [facility], [place], [address], 07/05/2018 09:23:05 07/04/1907/05/2018 heter ophil e Ab, quali tativ e latex agglu tinat ion, serum mono qual w/rflx qn Negati ve negati ve The sensi tivit y of Heter ophil e antib srinivasan testi ng is 80-90 %. Epste in [place] IgM testi ng offer s highe r sensi tivit y. Not Available [facility] ([facility]) [address] [facility], [place], [address], 07/05/2018 09:23:06 08/30/1908/30/2018 CBC w/ auto diff WBC 7.4 x10e3 /uL 3.4-10 .8 Not Available [facility] ([facility]) [address] [facility], [place], [address], 08/30/2018 07:11:59 08/30/19 19 08/30/2018 CBC w/ auto diff RBC 4.51 x10e6 /uL 3.77-5 .28 Not Available [facility] ([facility]) [address] [place], [address], 08/30/2018 07:11:59 08/30/19 19 08/30/2018 CBC w/ auto diff hemoglobin 11.0 g/dL 11.1-1 5.9 below low normal Not Available [facility] ([facility]) [address] [place], [address], 08/30/2018 07:11:59 08/30/1908/30/2018 CBC w/ auto diff hematocrit 34.2 % 34.0-4 6.6 Not Available [facility] ([facility]) [address] [place], [address], 08/30/2018 07:11:59 08/30/1908/30/2018 CBC w/ auto diff MCV 76 fL 79-97 below low normal Not Available [facility] ([facility]) [address] [place], [address], 08/30/2018 07:11:59 08/30/1908/30/2018 CBC w/ auto diff MCH 24.4 pg 26.6-3 3.0 below low normal Not Available [facility] ([facility]) [address] [place], [address], 08/30/2018 07:11:59 08/30/1908/30/2018 CBC w/ auto diff MCHC 32.2 g/dL 31.5-3 5.7 Not Available [facility] ([facility]) [address] [place], [address], 08/30/2018 07:11:59 08/30/1908/30/2018 CBC w/ auto diff RDW 15.6 % 12.3-1 5.4 above high normal Not Available [facility] ([facility]) [address] [place], [address], 08/30/2018 07:11:59 08/30/19 19 08/30/2018 CBC w/ auto diff platelets 389 x10e3 /uL 150-37 9 above high normal Not Available [facility] ([facility]) [address] [facility], [place], [address], 08/30/2018 07:11:59 08/30/19 19 08/30/2018 CBC w/ auto diff neutrophils 59 % not estab. Not Available [facility] ([facility]) [address] [facility], [place], [address], 08/30/2018 07:11:59 08/30/19 19 08/30/2018 CBC w/ auto diff lymphs 31 % not estab. Not Available [facility] ([facility]) [address] [facility], [place], [address], 08/30/2018 07:11:59 08/30/1908/30/2018 CBC w/ auto diff monocytes 8 % not estab. Not Available [facility] ([facility]) [address] [facility], [place], [address], 08/30/2018 07:11:59 08/30/1908/30/2018 CBC w/ auto diff eos 1 % not estab. Not Available [facility] ([facility]) [address] [facility], [place], [address], 08/30/2018 07:11:59 08/30/1908/30/2018 CBC w/ auto diff basos 1 % not estab. Not Available [facility] ([facility]) [address] [facility], [place], [address], 08/30/2018 07:11:59 08/30/1908/30/2018 CBC w/ auto diff immature cells RESERVOIR ENGINEERING CONSULTANT Not Available [facility] ([facility]) [address] [facility], [place], [address], 08/30/2018 07:11:59 08/30/19 19 08/30/2018 CBC w/ auto diff neutrophils (absolute) 4.4 x10e3 /uL 1.4-7. 0 Not Available [facility] ([facility]) [address] [place], [address], 08/30/2018 07:11:59 08/30/1908/30/2018 CBC w/ auto diff lymphs (absolute) 2.3 x10e3 /uL 0.7-3. 1 Not Available [facility] ([facility]) [address] [place], [address], 08/30/2018 07:11:59 08/30/1908/30/2018 CBC w/ auto diff monocytes(ab solute) 0.6 x10e3 /uL 0.1-0. 9 Not Available [facility] ([facility]) [address] [place], [address], 08/30/2018 07:11:59 08/30/1908/30/2018 CBC w/ auto diff eos (absolute) 0.1 x10e3 /uL 0.0-0. 4 Not Available [facility] ([facility]) [address] [place], [address], 08/30/2018 07:11:59 08/30/1908/30/2018 CBC w/ auto diff baso (absolute) 0.0 x10e3 /uL 0.0-0. 2 Not Available [facility] ([facility]) [address] [place], [address], 08/30/2018 07:11:59 08/30/1908/30/2018 CBC w/ auto diff immature granulocytes 0 % not estab. Not Available [facility] ([facility]) [address] [place], [address], 08/30/2018 07:11:59 08/30/1908/30/2018 CBC w/ auto diff immature grans (abs) 0.0 x10e3 /uL 0.0-0. 1 Not Available [facility] ([facility]) [address] [facility], [place], [address], 08/30/2018 07:11:59 08/30/1908/30/2018 CBC w/ auto diff NRBC RESERVOIR ENGINEERING CONSULTANT Not Available [facility] ([facility]) [address] [facility], [place], [address], 08/30/2018 07:11:59 08/30/1908/30/2018 CBC w/ auto diff hematology comments: RESERVOIR ENGINEERING CONSULTANT Not Available [facility] ([facility]) [address] [facility], [place], [address], 08/30/2018 07:11:59 08/30/1908/30/2018 hsv (1+2) igg Ab, [...] willy to HSV-1 . Not Available [facility] ([facility]) [address] [facility], [place], [address], 08/30/2018 07:12:00 08/30/1908/30/2018 hsv (1+2) igg Ab, [...] willy to HSV-2 . Not Available [facility] ([facility]) [address] [facility], [place], [address], 08/30/2018 07:12:00 08/30/19 19 08/30/2018 RPR (rapi d plasm a reagi n), serum RPR Non Reacti ve non reacti ve Not Available [facility] ([facility]) [address] [place], [address], 08/30/2018 07:12:00 08/30/1908/30/2018 HIV 1+2 AB + HIV 1 p24 Ag, quali tativ e immun oassa y, serum HIV screen 4TH generation wrfx Non Reacti ve non reacti ve Not Available [facility] ([facility]) [address] [place], [address], 08/30/2018 07:12:01 08/30/19 19 08/30/2018 hepat itis C Ab, signa l-to- cutof f, serum or plasm a HCV Ab <0.1 s/co_ ratio 0.0-0. 9 Not Available [facility] ([facility]) [address] [place], [address], 08/30/2018 07:12:01 08/30/19 19 08/30/2018 hepat itis C Ab, signa l-to- cutof f, serum or plasm a comment: Commen t Non react hayde HCV antib srinivasan scree n is consi stent with no HCV infec tion, unles s recen t infec tion is suspe cted or other evide nce exist s to indic ate HCV infec tion. Not Available [facility] ([facility]) [address] [place], [address], 08/30/2018 07:12:01 08/30/19 19 08/30/2018 HBsAg (hepa titis B surfa ce Ag), EIA, serum HBsAg screen Negati ve negati ve Not Available [facility] ([facility]) [address] [place], [address], 08/30/2018 07:12:02 02/14/2002/14/2019 CBC w/ auto diff WBC 7.5 x10e3 /uL 3.4-10 .8 Not Available [facility] ([facility]) [address] [facility], [place], [address], 02/14/2019 06:40:13 02/14/2002/14/2019 CBC w/ auto diff RBC 4.34 x10e6 /uL 3.77-5 .28 Not Available [facility] ([facility]) [address] [facility], [place], [address], 02/14/2019 06:40:13 02/14/2002/14/2019 CBC w/ auto diff hemoglobin 11.1 g/dL 11.1-1 5.9 Not Available [facility] ([facility]) [address] [facility], [place], [address], 02/14/2019 06:40:13 02/14/2002/14/2019 CBC w/ auto diff hematocrit 34.2 % 34.0-4 6.6 Not Available [facility] ([facility]) [address] [facility], [place], [address], 02/14/2019 06:40:13 02/14/2002/14/2019 CBC w/ auto diff MCV 79 fL 79-97 Not Available [facility] ([facility]) [address] [facility], [place], [address], 02/14/2019 06:40:13 02/14/2002/14/2019 CBC w/ auto diff MCH 25.6 pg 26.6-3 3.0 below low normal Not Available [facility] ([facility]) [address] [place], [address], 02/14/2019 06:40:13 02/14/2002/14/2019 CBC w/ auto diff MCHC 32.5 g/dL 31.5-3 5.7 Not Available [facility] ([facility]) [address] [facility], [place], [address], 02/14/2019 06:40:13 02/14/2002/14/2019 CBC w/ auto diff RDW 15.0 % 12.3-1 5.4 Not Available [facility] ([facility]) [address] [facility], [place], [address], 02/14/2019 06:40:13 02/14/2002/14/2019 CBC w/ auto diff platelets 372 x10e3 /uL 150-45 0 Not Available [facility] ([facility]) [address] [facility], [place], [address], 02/14/2019 06:40:13 02/14/2002/14/2019 CBC w/ auto diff neutrophils 61 % not estab. Not Available [facility] ([facility]) [address] [facility], [place], [address], 02/14/2019 06:40:13 02/14/2002/14/2019 CBC w/ auto diff lymphs 28 % not estab. Not Available [facility] ([facility]) [address] [facility], [place], [address], 02/14/2019 06:40:13 02/14/2002/14/2019 CBC w/ auto diff monocytes 8 % not estab. Not Available [facility] ([facility]) [address] [facility], [place], [address], 02/14/2019 06:40:13 02/14/2002/14/2019 CBC w/ auto diff eos 2 % not estab. Not Available [facility] ([facility]) [address] [facility], [place], [address], 02/14/2019 06:40:13 02/14/2002/14/2019 CBC w/ auto diff basos 1 % not estab. Not Available [facility] ([facility]) [address] [facility], [place], [address], 02/14/2019 06:40:13 02/14/2002/14/2019 CBC w/ auto diff immature cells RESERVOIR ENGINEERING CONSULTANT Not Available [facility] ([facility]) [address] [facility], [place], [address], 02/14/2019 06:40:13 02/14/2002/14/2019 CBC w/ auto diff neutrophils (absolute) 4.7 x10e3 /uL 1.4-7. 0 Not Available [facility] ([facility]) [address] [facility], [place], [address], 02/14/2019 06:40:13 02/14/2002/14/2019 CBC w/ auto diff lymphs (absolute) 2.1 x10e3 /uL 0.7-3. 1 Not Available [facility] ([facility]) [address] [facility], [place], [address], 02/14/2019 06:40:13 02/14/2002/14/2019 CBC w/ auto diff monocytes(ab solute) 0.6 x10e3 /uL 0.1-0. 9 Not Available [facility] ([facility]) [address] [facility], [place], [address], 02/14/2019 06:40:13 02/14/2002/14/2019 CBC w/ auto diff eos (absolute) 0.1 x10e3 /uL 0.0-0. 4 Not Available [facility] ([facility]) [address] [place], [address], 02/14/2019 06:40:13 02/14/2002/14/2019 CBC w/ auto diff baso (absolute) 0.0 x10e3 /uL 0.0-0. 2 Not Available [facility] ([facility]) [address] [facility], [place], [address], 02/14/2019 06:40:13 02/14/2002/14/2019 CBC w/ auto diff immature granulocytes 0 % not estab. Not Available [facility] ([facility]) [address] [facility], [place], [address], 02/14/2019 06:40:13 02/14/2002/14/2019 CBC w/ auto diff immature grans (abs) 0.0 x10e3 /uL 0.0-0. 1 Not Available [facility] ([facility]) [address] [place] [address], [place], [address], 02/14/2019 06:40:13 02/14/2002/14/2019 CBC w/ auto diff NRBC RESERVOIR ENGINEERING CONSULTANT Not Available [facility] ([facility]) [address] [place] [address], [place], [address], 02/14/2019 06:40:13 02/14/2002/14/2019 CBC w/ auto diff hematology comments: RESERVOIR ENGINEERING CONSULTANT Not Available [facility] ([facility]) [address] [place] [address], [place], [address], 02/14/2019 06:40:13 02/14/2002/14/2019 iron + total iron- leta ng capac ity (TIBC ), serum iron bind.cap.(TI BC) 353 ug/dL 250-45 0 Not Available [facility] ([facility]) [address] [facility], [place], [address], 02/14/2019 06:40:14 02/14/2002/14/2019 iron + total iron- leta ng capac ity (TIBC ), serum UIBC 336 ug/dL 131-42 5 Not Available [facility] ([facility]) [address] [place] [address], [address], 02/14/2019 06:40:14 02/14/2002/14/2019 iron + total iron- leta ng capac ity (TIBC ), serum iron 17 ug/dL 27-159 below low normal Not Available [facility] ([facility]) [address] [facility], [place], [address], 02/14/2019 06:40:14 02/14/2002/14/2019 iron + total iron- leta ng capac ity (TIBC ), serum iron saturation 5 % 15-55 alert low Not Available [facility] ([facility]) [address] [facility], [place], [address], 02/14/2019 06:40:14 02/14/2002/14/2019 cristina tin, serum or plasm a ferritin, serum 7 NG/mL 15-150 below low normal Not Available [facility] ([facility]) [address] [facility], [place], [address], 02/14/2019 06:40:14 07/04/19 19 07/04/2018 XR, chest No observ ation record ed. [email or web address] [address] [place], [address], 07/06/2018 16:35:07 08/16/19 19 08/09/2018 CT, neck, soft tissu e, w/ contr ast No observ ation record ed. [address] [place], [address], 11/27/2018 00:09:00 08/17/19 19 08/16/2018 CT, sinus es, w/o contr ast No observ ation record ed. [address] [place], [address], 08/16/2018 13:21:28 Result Notes None recorded. Problems Name Problem SNOMED Code Status Onset Date Resolution Date Notes Provider Name and Address Organization Details Recorded Time Disorder of thyroid gland 86333829 Completed 201811/26/2018 DIONNE New [facility] 9 00:12:22 Cervical lymphade nopathy 043107664 Active 2018 DIONNE New [facility] 9 11:15:19 Upper respirat ory infectio n 59775606 Completed 201811/13/2018 [place] [facility] 9 11:05:53 Mean corpuscu lar volume below referenc e range 675403439 Active 2018 [place] [facility] 9 12:49:50 Acute sinusiti s 29212590 Completed 201811/13/2018 [place] [facility] 9 11:05:49 History of Helicoba cter pylori infectio n 43798924825 525353 Active 2018 GI [place] [facility] 9 00:05:39 Chronic gastriti s 3373716 Active 2018 EGD - H pylori, [place] [facility] 9 00:06:03 Hemorrho ids 58591805 Active 2018 Gen sx planning for hemorrho idectomy [place] [facility] 9 00:06:27 Dizzines s 518077482 Active 2018 [place] [facility] 9 11:29:10 Infectiv e vaginiti s 113610554 Active Radha Garcia [place] [facility] 6 11:25:47 Infectiv e vaginiti s 013058720 Completed Shahrzad Barrera [place] [facility] 5 09:18:25 Maternal care for diminish ed movement s Active Radha [place] [facility] 6 11:25:47 Maternal care for diminish ed movement s Completed Shahrzad Barrera [place] [facility] 5 09:18:25 Breastfe eding painful 998128747 Active Radha Quicks [place] [facility] 6 11:25:47 Pain in pelvis 49887028 Active Radha Laymons [place] [facility] 6 11:25:47 Vaginal discharg e 120223648 Active white Radha moreno, [facility] 6 11:25:47 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 Procedures Surgical History Date Name Laterality Status Provider Name and Address Organization Details Recorded Time 05/08/19 16 Cholecystectomy completed Radha Garcia [facility] 11/03/2015 11:25:48 01/15/20 15 IUD Insertion completed Ricardo Isauro [facility] 01/14/2015 12:23:57 04/18/20 12 Date of Last Pap Smear completed Mily Parsons [place] - [facility] 05/06/2014 16:14:24 05/08/19 10 Appendectomy completed Maida Do [place] - [facility] 06/17/2014 11:12:04 Imaging Results Imaging Date Name Status LastModified by Organiz ation Details LastModified Time 07/04/2018 XR, chest completed [email or web address] [address] [place], [address], 07/06/2018 16:35:07 08/09/2018 CT, neck, soft tissue, w/ contrast completed [address] [place], [address], 11/27/2018 00:09:00 08/16/2018 CT, sinuses, w/o contrast completed [address] [place], [address], 08/16/2018 13:21:28 Procedure Notes None recorded. Medical [...] Updated DateTime 9 162.56 cm 36.7 kg/m2 20839.0 4 g 97.9 [degF] 16 /min 76 /min 124 mm[Hg] 86 mm[Hg] Jenelle Groves MA [facility] 9 12:24:37 Date Recorded Body height Body mass index (BMI) Body weight Systolic blood pressure Diastolic blood pressure Provider Name and Address Organization Details Last Updated DateTime 08/29/2018 162.56 cm 36.2 kg/m2 20270.99 g 130 mm[Hg] 94 mm[Hg] Shahrzad Barrera MA [facility] 9 11:38:34 Date Recorded Body height Body mass index (BMI) Body weight Body temperature Heart rate Respiratory rate Systolic blood pressure Diastolic blood pressure Provider Name and Address Organization Details Last Updated DateTime 9 162.56 cm 36 kg/m2 38561.6 1 g 98.3 [degF] 84 /min 20 /min 132 mm[Hg] 84 mm[Hg] Jenelle Groves MA [facility] 9 12:15:41 Date Recorded Body height Body mass index (BMI) Body weight Body temperature Heart rate Respiratory rate Systolic blood pressure Diastolic blood pressure Provider Name and Address Organization Details Last Updated DateTime 9 162.56 cm 35.5 kg/m2 55609.9 7 g 98.3 [degF] 70 /min 18 /min 130 mm[Hg] 80 mm[Hg] Jenelle Groves MA [facility] 9 10:43:45 Date Recorded Body height Body mass index (BMI) Body weight Heart rate Respiratory rate Body temperature Systolic blood pressure Diastolic blood pressure Provider Name and Address Organization Details Last Updated DateTime 9 162.56 cm 36.3 kg/m2 47332.7 9 g 86 /min 20 /min 98.3 [degF] 130 mm[Hg] 82 mm[Hg] Jenelle Groves [place] - [facility] 9 11:02:19 Social History Question Answer Notes LastModified by Organizat ion Details LastModified Time Tobacco Smoking Status Never Smoker Maida DoBRENDEN null, [place] - [facility] 06/17/2014 11:12:04 Do You Have An Advance Directive? No Information not available 06/17/2014 If You Are [...] D etails LastModified Time What is your level of alcohol consumption? None Information not available 06/17/2014 What is your exercise level? None Information [...] Lung Disease N Depression N Acne N Eating Disorder [...] SNOMED-CT Code Diagnosis ICD10 Code Diagnosis Note [id number] MD [place] Weaver ([facility]) [address] [place] [address] 05/06/2014 15:15:04 05/07/2014 13:43:54 [id number] test positive [id number] Joan Blas [facility] Lalo Husain ([facility]) [address] [place] [address] 05/22/2014 14:23:39 05/22/2014 15:25:47 [id number] MD Lalo Roldan ([facility]) [address] [place] [address] 06/17/2014 10:44:30 06/17/2014 15:08:09 [id number] MD Lalo Roldan ([facility]) [address] [place] [address] 07/15/2014 10:26:03 07/16/2014 09:23:26 Normal [id number] MD Lalo Weaver ([facility]) [address] [place] [address] 08/12/2014 09:35:12 08/12/2014 12:42:08 Normal [id number] MD Lalo Weaver ([facility]) [address] [facility] [place] [address] 08/26/2014 11:56:11 08/27/2014 16:10:13 [id number] MD Lalo Weaver ([facility]) [address] [place] [address] 09/09/2014 14:42:01 09/09/2014 15:30:17 [id number] MD Lalo Weaver ([facility]) [address] [facility] [place] [address] 09/23/2014 09:49:09 09/23/2014 15:23:49 [id number] MD Lalo Weaver ([facility]) [address] [facility] [place] [address] 10/07/2014 10:59:01 10/07/2014 11:38:07 [id number] MD Lalo Weaver ([facility]) [address] [place] [address] 10/21/2014 09:36:51 10/23/2014 12:51:20 [id number] MD Lalo Weaver ([facility]) [address] [place] [address] 11/04/2014 09:43:59 11/04/2014 14:45:01 [id number] Normal [id number] MD Lalo Weaver ([facility]) [address] [place] [address] 11/11/2014 11:18:25 11/11/2014 14:54:02 [id number] Maternal c are for diminished movements 554128776 [id number] MD Lalo Weaver Womens ([facility]) [address] [place] [address] 11/18/2014 10:46:59 11/18/2014 11:58:55 [id number] MD Lalo Weaver Womens ([facility]) [address] [place] [address] 11/24/2014 08:49:50 11/24/2014 10:29:51 [id number] MD Lalo Weaver [facility]omens ([facility]) [address] [place] [address] 12/24/2014 09:05:47 12/24/2014 12:04:57 care [id number] MD Lalo Weaver [facility]om[facility] ([facility]) [address] [place] [address] 01/14/2015 11:47:27 01/14/2015 12:33:02 care [id number] Uses contraception [id number] MD Lalo Weaver [facility]omens ([facility]) [address] [place] [address] 01/19/2015 15:46:51 01/20/2015 09:49:17 IUD check 755168181 [id number] MD Lalo Weaver [facility]om[facility] ([facility]) [address] [facility] [place] [address] 02/11/2015 10:38:39 02/18/2015 18:08:10 IUD check 103704145 Z30.431 [id number] Joan Blas [facility] Lalo Womens ([facility]) [address] [facility] [place] [address] 11/03/2015 11:00:12 11/03/2015 14:33:42 detection examination 53771938 Z32.00 IUD check 372137504 Z30. 350 [id number] MD Lalo HURTADO 14 IM [address] [place] [address] 07/04/2018 09:50:09 07/04/2018 16:26:43 Cervical lymphadenopathy 107097404 R59.0 Had a cough since 02/2018, on and off No traveling. No cat. Weight stable overall. Fatigue - despite sleeping. No dental issues. No focal weakness. Sweaty at times. Irregular periods. Neuro intact. ENT will do US +/- biopsy soon. Labs. Check for mono, syphilis, CMV, CXR. RTC 3mo Disorder o f thyroid gland 30196866 E07.9 Had a cough since 02/2018, on and off. Check TSH [id number] MD Lalo HURTADO [address] IM [address] [facility] [place] [address] 07/27/2018 12:09:33 07/31/2018 15:49:44 Cervical lymphadenopathy 104066797 R59.0 Had a cough since 02/2018, on [...] second ENT opinion. Upper resp iratory infection 59507818 J06.9 Strept and Flu negative. Exam unremarkab le. Conservati ve management . [id number] MD Lalo Chambers [address] [facility] [place] [address] 08/29/2018 11:23:12 08/30/2018 09:21:21 Gynecologic examination 37512987 Z01.419 CBE and pelvic exam performedP t is on her menstrual cycle, will RTC for pap smear Venereal d isease screening 684227768 Z11.3 Anemia 041068514 D64.9 Hemorrhoids 04267719 K64 .9 [id number] MD Lalo HURTADO [address] [facility] [place] [address] 09/05/2018 12:08:49 09/06/2018 10:44:23 Acute sinusitis 67414164 J01.90 4 days, worsening coughs, chest congestion . Exam sinusitis. Already on antihistam althea, PPI, Augmentin with ENT. Try home Flonase, add mucinex. 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 FeS - taking two tab now. Inc to three - RTC 2mo for ferritin check. [id number] MD Lalo HURTADO [address] [facility] [place] [address] 11/13/2018 10:37:12 11/27/2018 11:36:00 Cervical lymphadenopathy 907751060 R59.0 06/2018: Had a cough since 02/2018, [...] done biopsy - result benign. Chronic gastritis 948216 9 K29.50 Followed by GI.Chronic gastritic, H pylori infection - pt was treated. Per pt, her esophagus was also dilated. Hemorrhoids 70248133 K64 .9 Followed by Gen sx - candidate for hemorrhoid ectomy. History of Helicobacter pylori infection 9024121569 [id number] Z86.19 Followed by GI - treated [id number] MD Lalo HURTADO [address] [facility] [place] [address] 02/13/2019 10:52:03 02/14/2019 08:35:16 Dizziness 055725693 R42 Thyroid was low with Surgical Appliance Fitter recently - pt will be rechecked by [...] Steele Member ID Guarantor Name 07/27/2018 1 [place] [employer] Yessica Ray [id number] Yessica Corzine 08/29/2018 1 [place] [facility] Yessica Ray [id number] Yessica Corzine 09/05/2018 1 [facility] (MEDICAID HMO) [facility] Yessica Ray [id number] Yessica Corzine 11/13/2018 1 [facility] Yessica Ray [id number] Yessica Corzine 02/13/2019 2 [place] [facility] Yessica Ray [id number] Yessica Corzine 02/13/2019 1 [facility] [id number] Luis Antonio A Corzine [id number] Yessica Corzine Notes Date Note Type Note [...] wants a second opinion DIONNE New - [facility] 07/31/2018 15:32:25 08/29/2018 text/html Annual GYNReport ed [...] PMDD Ricardo Ramirez MD Attn: Accounting,[address] [facility], [place], [address], [facility] 08/29/2018 16:15:04 09/05/2018 text/html 23yo female is h ere for coughs. Coughs Congested chest 4 days of increase Wheeze Sore throat No fever, chills, muscle ache Saw ENT - on Tessalon perles, Augmentin for 1mo, Probiotic, Omeprazole She is on Minerva and Benadryl Lucero moreno [facility] 09/05/2018 12:50:10 11/13/2018 text/html 23yo female is [...] Gen sx Was planning for hemorrhoidectomy Lucero moreno [facility] 11/27/2018 00:24:29 02/13/2019 text/html 24yo female is h ere for dizziness. 1.5moIUD removed 01/2019. Not helpful with heavy period and pt planning for . 7 days - heavy first 2-3 days, 1 pad per hour. Taking FeS 325mg TID at least since 09/2018 was with positional change, now even with standing / at rest Not a/w with meals Denies room spinning. Lucero Sandoval [facility], [facility] 02/13/2019 11:29:52 OBGyn Episode Ob Episode Information Episode Created Date Number of Fetuses Patient Bloodtype Patient rh Status Prepregnancy Weight lbs Domestic Partner Domestic Partner Phone Father Name Supervisor Particleboard Status 05/06/20 14 1 A Positive Luis Antonio Craigharvey CLOSED Fetus Data First Name Last Name Admitted to NICU Weight (g) Sex Living Outcome Pediatric Complications Fetus ID Race Codes Race Delivery Type CHASITY CRAIG NE false 4309.12 4 F Full Term 5386 2106-3 White Vaginal Problems Problem Notes Problem Name Start Date End Date Resolution Snomed Code Not e Infective vaginitis 180777232 Maternal care for diminished movements 569838640 Darren Calculation Initial Darren Date Initial Exam [...] Type Weight in lbs Pre/Post Dialysis Refused 203.467775782275 BP Diastolic BP Location Tested BP Systolic BP Type 64 L arm 118 sitting Fetus Heart Rate Present Fetus Movement Comments Flowsheet Date 05/22/2014 Mckinney Score Blood Edema Fundus Height Fundus Units Glucose Ketones Leukocytes Nitrite Labor Signs Protein Cervic Dilation Cervic Effacement Cervic Station neg none none negative neg Type Weight in lbs Pre/Post Dialysis Refused 198.895984680420 BP Diastolic BP Location Tested BP Systolic [...] Type Weight in lbs Pre/Post Dialysis Refused 164.84155681952 BP Diastolic BP Location Tested BP Systolic [...] Type Weight in lbs Pre/Post Dialysis Refused 201.950959702266 BP Diastolic BP Location Tested BP Systolic [...] Type Weight in lbs Pre/Post Dialysis Refused 203.67492147409 BP Diastolic BP Location Tested BP Systolic BP Type 68 128 Fetus Heart Rate Present A 142 Present Fetus Movement A Yes Comments 28 weeks today Flowsheet Date 08/26/2014 Mckinney Score Blood Edema Fundus Height Fundus Units Glucose Ketones Leukocytes Nitrite Labor Signs Protein Cervic Dilation Cervic Effacement Cervic Station 26 cm none Type Weight in lbs Pre/Post Dialysis Refused 203.81151862282 BP Diastolic BP Location Tested BP Systolic BP Type 74 L arm 122 sitting Fetus Heart Rate Present A 146 Present Fetus Movement A Yes Comments Flowsheet Date 09/09/2014 Mckinney Score Blood Edema Fundus Height Fundus Units Glucose Ketones Leukocytes Nitrite Labor Signs Protein Cervic Dilation Cervic Effacement Cervic Station 30 cm none Type Weight in lbs Pre/Post Dialysis Refused 206.885067479337 BP Diastolic BP Location Tested BP Systolic BP Type 60 L arm 120 sitting Fetus Heart Rate Present A 154 Present Fetus Movement A Yes Comments Flowsheet Date 09/23/2014 Mckinney Score Blood Edema Fundus Height Fundus Units Glucose Ketones Leukocytes Nitrite Labor Signs Protein Cervic Dilation Cervic Effacement Cervic Station 32 cm none Type Weight in lbs Pre/Post Dialysis Refused 205.169142045201 BP Diastolic BP Location Tested BP Systolic BP Type 68 110 Fetus Heart Rate Present A 155 Fetus Movement A Yes Comments Flowsheet Date 10/07/2014 Mckinney Score Blood Edema Fundus Height Fundus Units Glucose Ketones Leukocytes Nitrite Labor Signs Protein Cervic Dilation Cervic Effacement Cervic Station none Type Weight in lbs Pre/Post Dialysis Refused 208.250700157681 BP Diastolic BP Location Tested BP Systolic BP Type 78 110 sitting Fetus Heart Rate Present A 154 Fetus Movement A Yes Comments growth scan ordered Flowsheet Date 10/21/2014 Mckinney Score Blood Edema Fundus Height Fundus Units Glucose Ketones Leukocytes Nitrite Labor Signs Protein Cervic Dilation Cervic Effacement Cervic Station 37 cm none Type Weight in lbs Pre/Post Dialysis Refused 213.355658631087 BP Diastolic BP Location Tested BP Systolic BP Type 72 118 sitting Fetus Heart Rate Present A 140 Present Fetus Movement A Yes Comments gbs today. Flowsheet Date 11/04/2014 Mckinney Score Blood Edema Fundus Height Fundus Units Glucose Ketones Leukocytes Nitrite Labor Signs Protein Cervic Dilation Cervic Effacement Cervic Station 37 cm none Type Weight in lbs Pre/Post Dialysis Refused 216.342648141816 BP Diastolic BP Location Tested BP Systolic [...] Type Weight in lbs Pre/Post Dialysis Refused 217.514647824237 BP Diastolic BP Location Tested BP Systolic [...] Type Weight in lbs Pre/Post Dialysis Refused 221.352045599383 BP Diastolic BP Location Tested BP Systolic [...] Type Weight in lbs Pre/Post Dialysis Refused 223.678612579544 BP Diastolic BP Location Tested BP Systolic [...] At Estimated Date of Delivery false Thalassemia (Polish, Samoan, Mediterranean, Or Background): MCV < 80 false Neural Tube Defect (Meningom yelocele, Spina Bifida, Or Anencephaly) false Congenital Heart Defect false Down Syndrome false Curt-Sachs (eg, Mu-Ism, Cajun , Luxembourger-Fulton) false Yung Disease false Sickle Cell Disease [...] Domestic Partner Domestic Partner Phone Father Name Supervisor Particleboard Status 06/17/19 15 1 CLOSED Fetus Data First Name Last Name Admitted to NICU Weight (g) Sex Living Outcome Pediatric Complications Fetus ID Race Codes Race Delivery Type 3515.33 8 F Full Term 35589 Vaginal Darren Calculation Initial Darren Date Initial [...]
--- OUTSIDE RECORDS SUMMARY | 2024-09-17 21:40 | XMS_ITS | Data Portability ---
Author Organization [facility] Address [address] [place] [address] [place] [address] Care Team Providers Care Tail Board Man Name Role Phone [facility] EDUIN HAMMONDS Health Benefits Specialist [phone] JILLIAN LAO Primary Care Provider [phone] Assessment Encounter Date Assessment Date Assessment LastModified by Organization Details LastModified Time 07/31/2024 07/31/2024 Patient is _19__weeks . Discussed plan. [email or web address] Not available 07/31/2024 18:07:16 08/28/2024 08/28/2024 Patient is ___weeks . Discussed plan. [email or web address] Not available 08/28/2024 14:30:40 08/29/2024 08/29/2024 Patient is _24__weeks . Discussed plan. [email or web address] Not available 08/30/2024 09:21:55 Plan of Treatment Reminders Order Date Submit Date Provider Last Modified By Organization Details Last Modified Time Details Appointments OB ROUTINE 2024 01:00P Kezia Bryant CNM Not available Not available Not available Lab None recorded. Referral None recorded. Procedures None recorded. Surgeries None recorded. Imaging US, obstetric , limited 2024 025 [email or web address] [facility], [address], [address], [place], [address], 08/22/2024 18:27:06 Medication Orders cyclobenz aprine 5 mg tablet 2024 025 [id number], [address], [place], [place], [id number], 08/09/2024 13:59:24 Protonix 40 mg tablet,de layed release 2024 025 [facility][id number], [address], [place], [place], [id number], 07/31/2024 17:57:39 Patient TargetsNo targets recorded. Patient [...] Resul ting Lab: [facility] [address] [facility] [address] Tel: CULTU RE ----- ----- ----- --- No growt h in 1 day (dete ction level of 10,00 0 colon ies / ml.) Not Available [facility] (Lab) [address] [facility], [place], [address], 07/10/2024 05:36:59 07/13/1907/12/2024 US, obste tric, limit ed No observ ation record ed. [address], [place], [address], 07/12/2024 17:50:02 08/09/1908/08/2024 XR, chest , 1 view No observ ation record ed. [address], [place], [address], 08/12/2024 15:18:19 08/10/1907/31/2024 US, obste tric, follo w-up No observ ation record ed. [email or web address] [facility] [address] [place], [address], 08/20/2024 12:19:45 08/10/19 25 07/31/2024 US, obste tric, follo w-up No observ ation record ed. [email or web address] [facility] [address] [place], [address], 08/12/2024 22:49:50 08/20/1908/08/2024 ilya r monit or No observ ation record ed. [address] [address], [place], [address], 08/21/2024 11:36:44 08/20/19 25 08/08/2024 ilya r monit or No observ ation record ed. [facility] (Pulmonary) [address] [place] [address], [address], 08/28/2024 13:01:57 08/23/19 25 08/22/2024 US, obste tric, follo w-up No observ ation record ed. [email or web address] [address], [place], [address], 08/27/2024 13:26:37 08/23/19 25 08/22/2024 US, obste tric, limit ed No observ ation record ed. [facility] [address], [place], [address], 08/22/2024 13:56:22 08/23/19 25 08/22/2024 US, obste tric, limit ed No observ ation record ed. [address], [place], [address], 08/28/2024 22:09:02 08/28/19 25 08/27/2024 US, kidne y No observ ation record ed. [address] [facility] [address], [place], [address], 08/28/2024 18:26:00 08/28/19 25 08/27/2024 US, obste tric, follo w-up No observ ation record ed. [address] [facility] [address] [facility] [address] [place], [address], 09/10/2024 06:50:18 08/28/19 25 08/27/2024 US, obste tric, follo w-up No observ ation record ed. [address] [facility] [address] [facility] [address] [place], [address], 08/28/2024 18:26:00 09/04/19 25 09/03/2024 non-s tress test No observ ation record ed. [address] [facility] [address] [place] [address], [address], 09/16/2024 09:45:28 Result Notes None recorded. Problems Name Problem SNOMED Code Status Onset Date Resolution Date Notes Provider Name and Address Organization Details Recorded Time Pregnanc y 60924440 Completed 202106/09/2022 Kenyetta Solano null, [facility] 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 3 15:14:45 Hypothyr oidism 04304331 Completed Elikristin Chaveznstieh l null, [facility] 3 15:14:45 Antenata l care: history of infertil ity 010577075 Completed Eli Scottnstieh l null, [facility] 3 15:14:46 Group B Streptoc occus carrier 8223301438 103 Completed bacteriu berta Eli alvarado [facility] 3 15:14:45 Maternal obesity complica ting pregnanc y, childbir th and the puerperi um, antepart um 7726046386 07 Completed BMI 39- ante testing at 37w Eli alvarado [facility], [facility] 3 15:14:46 Chronic hyperten allison in obstetri c context 7888943 Completed procardi a , baseline labs, ASA Eli alvarado [facility] 3 15:14:46 Placenta circumva llata 2055286 Completed Serial growth u/s Eli alvarado [facility] 3 15:14:45 Pre-ecla mpsia 377599947 Completed Eli alvarado [facility] 3 15:14:45 Abnormal cervical Papanico laou smear 789109026 Active 2023 3 lgsil HPV high risk 1 ascus HPV high risk Kenyetta Solano [facility], [facility] 4 11:59:57 Herpes simplex 34277301 Active 2024 Kenyetta Solano [facility], [facility] 5 16:40:53 Human papillom a virus infectio n 220502043 Active 2024 Kenyetta Solano [facility], [facility] 5 16:40:59 Endometr iosis (clinica l) 035436624 Active 2024 Kenyetta Solano [facility], [facility] 5 16:41:22 Pregnanc y 41750389 Active 2024 Kenyetta Solano [facility], [facility] 5 16:03:06 Twin pregnanc y 42370116 Active 38 wk delivery antenata l testing @ 32wks per M Schedule d rpt 08/27 us ONLY Tabatha moreno, [facility] 5 12:20:16 Antenata l care: history of infertil ity 007792187 Active Peter Bryant CNM [address], [place], [address], [facility] 5 13:48:37 Past pregnanc y history of pre-ecla mpsia 6112867764 91495 Active bASA x2 Tabatha moreno, [facility] 5 17:10:40 Large for gestatio n age fetus 148041865 Active less then 30 sec shoulder dystocia Peter Bryant CNM [address], [place], [address], [facility] 5 13:51:09 Past pregnanc y history of shoulder dystocia 124957463 Active Peter Brynat CNM [address], [place], [address], [facility] 5 13:52:04 Chronic hyperten allison in obstetri c context 1970309 Active Peter Bryant CNM [address], [place], [address], [facility] 5 13:52:55 Palpitat ions 49876812 Active Holter monitor faxed to [facility] nt Cardiolo gy 3 Tabatha moreno, [facility] 5 14:05:23 Palpitat ions 46214545 Active Holter monitor faxed to [facility] nt Cardiolo gy 3 Tabatha moreno, [facility] 5 14:05:23 Migraine 37650543 Active magnesiu m, Excedrin tension, edita Flanagan null, [facility] 5 17:11:50 Migraine 62046805 Active magnesiu m, Excedrin tension, gloriaatrip deepti Flanagan null, [facility] 5 17:11:50 Finding of general energy 352101946 Completed 201807/28/2020 Fatigue; Recorded Elsewher e: No [facility] ource: EHR Hotel Room Attendant mark: N Practi ce ID: 0001 Emmanuel lable Time: 10:45:00 AM Messi Garcia MD [address], [place], [address], [facility] 1 15:00:00 Acute vaginiti s 67297115 Completed 201807/28/2020 Vaginiti s;Record ed Elsewher e: No [facility] S ource: EHR Hotel Room Attendant mark: N Practi ce ID: 0001 Emmanuel lable Time: 10:45:00 AM Messi Garcia MD [address], [place], [address], [facility] 1 15:00:04 Removal of intraute rine device Completed 201807/28/2020 Encounte r for removal of IUD;Earl rded Elsewher e: No [facility] S ource: EHR Hotel Room Attendant mark: N Practi ce ID: 0001 Emmanuel lable Time: 10:45:00 AM Messi Garcia MD [address], [place], [address], [facility] 1 15:00:08 Problem Notes None recorded. Procedures Surgical History Date Name Laterality Status Provider Name and Address Organization Details Recorded Time 024 Laparoscopy completed [facility] 05/10/2024 16:42:07 024 Date of Last Pap Smear completed [facility] 08/16/2023 12:00:08 024 procedure on ear completed [facility] 08/16/2023 12:01:09 023 Colposcopy completed Peter Bryant, DUNIA [address], [place], [address], [facility] 06/15/2022 16:59:00 023 Colposcopy completed [facility] 06/15/2022 16:38:21 023 Colposcopy completed [facility] 06/15/2022 16:38:49 022 intrauterine artificial insemination completed [facility] 06/26/2021 09:20:58 021 intrauterine artificial insemination completed [facility] 06/17/2021 12:15:01 021 intrauterine artificial insemination completed [facility] 06/17/2021 12:14:55 021 intrauterine artificial insemination completed [facility] 06/17/2021 12:14:45 021 intrauterine artificial insemination completed [facility] 06/17/2021 12:14:39 021 LAPAROSCOPY, DIAGNOSTIC (SURG) completed [facility] 08/19/2020 14:04:12 020 completed [facility] 10/01/2020 16:23:53 020 Colonoscopy completed [facility] 01/22/2021 10:59:09 019 procedure on neck completed [facility] 12/25/2019 11:25:51 019 hemorrhoidectomy completed [facility] 12/25/2019 11:24:57 016 cholecystectomy completed [facility] 07/16/2021 17:21:15 010 Appendectomy completed [facility] 12/25/2019 11:24:44 Imaging Results Imaging Date Name Status LastModified by Organiz ation Details LastModified Time 07/12/2024 US, obstetric, limited completed [email or web address] [address], [place], [address], 07/12/2024 17:50:02 08/08/2024 XR, chest, 1 view completed [address] [place] [address], [address], 08/12/2024 15:18:19 07/31/2024 US, obstetric, follow-up completed [email or web address] [facility] [address], [address], 08/20/2024 12:19:45 07/31/2024 US, obstetric, follow-up [email or web address] [facility] [address], [address], 08/12/2024 22:49:50 08/08/2024 holter monitor completed [address], [address], 08/21/2024 11:36:44 08/08/2024 holter monitor completed [facility] (Pulmonary) [address] [facility] [address], [place], [address], 08/28/2024 13:01:57 08/22/2024 US, obstetric, follow-up completed [email or web address] [address], [place], [address], 08/27/2024 13:26:37 08/22/2024 US, obstetric, limited completed [address], [place], [address], 08/22/2024 13:56:22 08/22/2024 US, obstetric, limited completed [email or web address] [address], [place], [address], 08/28/2024 22:09:02 08/27/2024 US, kidney completed [email or web address] [facility] [address] [place] [address], [address], 08/28/2024 18:26:00 08/27/2024 US, obstetric, follow-up completed [email or web address] [facility] [address] [place] [address], [address], 09/10/2024 06:50:18 08/27/2024 US, obstetric, follow-up completed [facility] [address] [place] [address], [address], 08/28/2024 18:26:00 09/03/2024 non-stress test completed [address] [facility] [address] [facility] [address] [place] [address], [address], 09/16/2024 09:45:28 Procedure Notes None recorded. Medical Equipment None Reported. Allergies Allergen ID Allergen Name Allergen Category Reaction Reaction Severity Criticality Documentation Date Start Date Code Code System Note Provider Name and Address Organization Details Recorded Time 98376 prednison e medicatio n hives Not available Not available 07/03/2024 8640 RxNorm Peter ArevaloDwight Bryant, NILSON [address], [place], [address] [place] [address], P[facility] 5 09:52:22 Medications Name Sig Start [...] Pregnyl 10,000 unit intramusc ular solution Inject 77973 units every day by intramus cular route [...] oral route every day 07/02 completed Prescrib jose antonio Cevallos e: Yes Loca tion: Chaya [facility] Kezia odify By: [email or web address] z Encoun ter DateTime [...] VAIL INJECTIO N INTO RIGHT HIP LOT [id number] EXP 12/2021 Not Available Not Available Not [...] Address Organization Details Last Updated DateTime 5 48178.3 214 g 38.4 kg/m2 161.29 cm 152 mm[Hg] 92 mm[Hg] 114 mm[Hg] 53 mm[Hg] Kenyetta [facility] 17:51:55 Date Recorded Body weight Body mass index (BMI) Body height Systolic blood pressure Diastolic blood pressure Provider Name and Address Organization Details Last Updated DateTime 08/09/2024 290159.4 6799 g 39.6 kg/m2 161.29 cm 119 mm[Hg] 70 mm[Hg] Kenyetta [facility] 5 12:43:20 Date Recorded Body height Body mass index (BMI) Body weight Systolic blood pressure Diastolic blood pressure Provider Name and Address Organization Details Last Updated DateTime 08/28/2024 161.29 cm 39.9 kg/m2 656953.6 5 g 133 mm[Hg] 89 mm[Hg] Kenyetta [facility] 14:31:40 Date Recorded Body weight Body mass index (BMI) Body height Systolic blood pressure Diastolic blood pressure Provider Name and Address Organization Details Last Updated DateTime 08/29/2024 787303.4 2984 g 40.5 kg/m2 161.29 cm 118 mm[Hg] 85 mm[Hg] [facility] 10:08:49 Social History Question Answer Notes LastModified by Organizat ion Details LastModified Time Tobacco Smoking Status Never Smoker [email or web address] 06/15/2022 15:31:26 Do You Have An Advance Directive? No Information n ot available 07/28/2020 If You Are , What Was Your Level Of Alcohol Consumption Prior To ? None [email or web address] Information not available 06/15/2022 Are You Blind Or Do You Have Difficulty Seeing? No Information n ot available 07/28/2020 What Is Your Level Of Caffeine Consumption? Occasional [email or web address] Information not available 09/09/2020 In The 14 Days Before Symptom Onset, Have You Had Close Contact With A Laboratory-confirm ed COVID-19 While That Case Was Ill? No Information n ot available 07/28/2020 In The 14 Days Before [...] Type Of Diet Are You Following? REGULAR [email or web address] Information n ot available 08/19/2020 What Is The Highest Grade Or Level Of School You Have Completed Or The Highest Degree You Have Received? GG08159-8 Information not available 07/28/2020 Are There Any Guns Present In Your Home? No Information not available 07/28/2020 What Was The Date Of Your Most Recent Tobacco Screening? 08/28/2024 [email or web address] Information not available 08/28/2024 Have You Ever Been Counseled For Unhealthy Alcohol Use? No [email or web address] Information not available 06/15/2022 Do You Use Protection During Sex? No Information not available 07/28/2020 Do You Use Your Seat Belt Or Car Seat Routinely? Yes Information not available 07/28/2020 Do You Have Smoke And Carbon Monoxide Detectors In Your Home? Yes Information not available 07/28/2020 How Much Tobacco Do You Smoke? No Information not available 12/25/2019 Do You Use Sunscreen Routinely? Yes Information not available 07/28/2020 Have You Used IV Drugs? No Information not available 07/28/2020 Sex: Unknown Functional Status Question Answer Note LastModified by Organizat ion Details LastModified Time Do you use any illicit or recreational drugs? No Information not available 07/28/2020 Do you or have you ever used any other forms of tobacco or nicotine? No Information not available 06/15/2022 What is your level of alcohol consumption? Occasional [email or web address] Information not available 12/25/2019 Do you or have you ever used smokeless tobacco? Never used smokeless tobacco [email or web address] Information not available 06/15/2022 Do you have difficulty walking or climbing stairs? No [email or web address] Information not available 06/15/2022 Are you able to walk? YESWOREST [email or web address] Information not available 08/19/2020 Are you able to care for yourself? 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 No Information not available 06/15/2022 Do you or have you ever used e-cigarettes or vape? Never used electronic cigarettes [email or web address] Information not available 06/15/2022 What is your exercise level? Occasional [email or web address] Information not available 12/25/2019 Mental Status Question Answer Note LastModified by Organization D etails LastModified Time Do you feel stressed (tense, restless, nervous, or anxious, or unable to sleep at night)? SN12207-9 [email or web address] Information not available 08/19/2020 Family History Relationship Description Onset Age of this Age Resolved Age Notes LastModified by Organization Details LastModified Time Maternal Grandmother Disorder of thyroid gland [email or web address] Not available 01/26 16:14:56 Mother Female infertility [email or web address] Not available 05/09 14:45:18 Mother Disorder of thyroid gland Not available 01/26 16:14:56 Father Malignant tumor of pancreas Not available 2024 14:45:18 Brother Malignant neoplasm of prostate [email or web address] Not available 2024 14:45:18 Paternal Grandmother Malignant tumor of breast [email or web address] Not available 01/26 16:14:56 Paternal Grandmother Malignant neoplasm of lung [email or web address] Not available 01/26 16:14:56 Medical History Condition [...] SNOMED-CT Code Diagnosis ICD10 Code Diagnosis Note [id number] Peter Bryant CNM [facility] [address] [address] 12/25/2019 10:57:08 12/25/2019 12:38:39 Breast infection 189357954 N61.0 Trying to conceive 62361 9001 Z31.9 [id number] Messi Garcia MD [facility] [address] [address] 06/30/2020 12:07:39 06/30/2020 12:55:49 Pain in pelvis 61729186 R10.2 [id number] Messi Garcia MD [facility] [address] [address] 07/02/2020 12:31:33 07/02/2020 16:54:32 Pain in pelvis 87221133 R10.2 This patient is a 25-year-ol d [...] informed consent process. To check fallopian tubes. [id number] Messi Garcia MD [facility] [address] [address] 07/23/2020 10:07:53 07/23/2020 10:09:56 83328 MD Rhina Zheng [address] [address] 07/28/2020 13:53:59 07/28/2020 15:27:02 Chest pain 85321597 R07.9 this patient is 25-year-ol d female [...] this patient s visit, including available hand grooving machine operator upon arrive, tempercubaur e check and being asked a series of screening questions. All staff wore face coverings during this encounter, as well as provided additional cleaning and sanitizing of all surfaces, including countertop s, pens, chairs, door handles, light switches, etc, prior to and following the patient s visit. [id number] MD Rhina Zheng [address] [address] 08/04/2020 14:07:07 08/04/2020 14:50:37 Abnormal uterine bleeding 8384906949 9100 N93.9 this patient is a 25-year-ol [...] ov[place] [id number] Peter Bryant CNM [facility] [address] [place] [address] 08/19/2020 13:46:09 08/19/2020 15:50:34 Trying to conceive 787725792 Z31.9 [id number] Messi Garcia MD [facility] [address] [place] [address] 09/02/2020 11:05:51 09/02/2020 12:44:09 Female infertility 4159390 N97.9 40053 [facility] [address] [place] [address] 09/04/2020 08:09:36 09/04/2020 09:29:50 Artificial insemination 65657370 Z31.83 10484 [facility] [address] [place] [address] 09/03/2020 18:20:49 09/03/2020 22:54:04 Trying to conceive 144169842 Z31.9 [id number] Messi Garcia MD [facility] [address] [place] [address] 09/09/2020 17:51:09 09/09/2020 18:07:37 Pain in pelvis 87312219 R10.2 This patient is a 25-year-ol d [...] informed consent process. To check fallopian tubes. [id number] Messi Garcia MD [facility] [address] [address] 09/22/2020 16:45:48 09/22/2020 17:17:04 Pain in pelvis 92995573 R10.2 This patient is a 25-year-ol d [...] informed consent process. To check fallopian tubes. 64014 Messi Garcia MD [facility] [address] [address] 10/01/2020 14:59:50 10/01/2020 15:16:34 Female infertility 4817410 N97.9 73710 [facility] [address] [address] 10/01/2020 16:21:54 10/01/2020 16:27:38 Trying to conceive 680071614 Z31.9 85632 [facility] [address],[place] [address] 10/02/2020 08:19:49 10/02/2020 09:46:38 Artificial insemination 59567582 Z31.83 [id number] Messi Garcia MD [facility] [address] [address] 10/14/2020 15:52:51 10/14/2020 16:51:20 Pain in pelvis 42418654 R10.2 This patient is a 25-year-ol d [...] informed consent process. To check fallopian tubes. 50022 Peter Bryant CNM [facility] [address] [address] 10/21/2020 17:06:20 10/21/2020 17:33:05 Hypothyroidism 33992383 E03.9 check labs, will adjust meds if needed [id number] Messi Garcia MD [facility] [address] [address] 11/30/2020 13:48:01 11/30/2020 13:52:51 Pain in pelvis 85094287 R10.2 This patient is a 25-year-ol d [...] informed consent process. To check fallopian tubes. 50662 Messi Garcia MD [facility] [address] [address] 12/01/2020 14:00:56 12/01/2020 15:31:30 Pain in pelvis 72153119 R10.2 this patient is a 25-year-ol d [...] face-to-fa ce discussing this very complex topic. [address] [place] [address] [place] [address] 01/22/2021 09:15:38 01/22/2021 10:35:42 Female infertility 8976307 N97.9 Gynecologi c examination 02479045 Z01.419 97345 Messi Garcia MD [facility] [address] [place] [address] 02/09/2021 09:19:46 02/09/2021 10:04:48 Female infertility 2126390 N97.9 10014 Peter Bryant [facility] [address] [place] [address] 02/09/2021 14:29:50 02/09/2021 16:50:58 Trying to conceive 405058953 Z31.9 94342 Peter Bryant CNM [facility] [address] [place] [address] 02/10/2021 09:41:42 02/10/2021 10:12:15 Female infertility 7605798 N97.9 Artificial insemination 40468078 Z31.83 [id number] Messi Garcia MD [facility] [address] [place] [address] 04/28/2021 14:43:43 04/28/2021 15:19:59 Female infertility 0360151 N97.9 60753 [facility] [address] [address] 04/28/2021 18:59:10 04/29/2021 09:31:07 Trying to conceive [id number] Z31.9 [id number] Peter Bryant [facility] [address],[place] [address] 04/29/2021 09:31:15 04/29/2021 10:19:12 Artificial insemination 22304346 Z31.83 [id number] Nalini [facility] [address],[place] [address] 05/25/2021 11:53:11 05/25/2021 16:54:31 Reduced libido 3025721 R68.82 Today we discussed trial of Wellbutrin [...] this patient s visit, including available hand grooving machine operator upon arrive, temperatur e check and being asked a series of screening questions. All staff wore face coverings during this encounter, as well as provided additional cleaning and sanitizing of all surfaces, including countertop s, pens, chairs, door handles, light switches, etc, prior to and following the patient s visit. [id number] Messi Garcia MD [facility] [address],[place] [address] 06/22/2021 14:38:59 06/23/2021 09:16:44 Body mass index 30+ - obesity 684963675 Z68.37 This patient is a 26-year-ol d [...] on the dietitian schedule. Gynecologi c examination 71010164 Z01.419 Abnormal u terine bleeding 3871350796 9100 N93.9 [id number] Messi Garcia MD [facility] [address],[place] [address] 06/25/2021 09:04:11 06/25/2021 09:23:27 Female infertility 6736579 N97.9 [id number] [facility] [address],[place] [address] 06/25/2021 18:38:25 06/26/2021 09:09:27 Trying to conceive 033761815 Z31.9 [id number] Peter Bryant CNM [facility] [address],[place] [address] 06/26/2021 09:13:57 07/01/2021 15:54:18 Artificial insemination 49288903 Z31.83 [id number] Messi Garcia MD [facility] [address],[place] [address] 07/27/2021 17:11:55 07/27/2021 18:06:16 Uncertain viability of 203508447 O36.80X0 Z3A.01 [id number] Messi Garcia MD [facility] [address],[place] [address] 08/05/2021 09:17:05 08/05/2021 10:16:25 Abdominal pain in early 012943311 Z33.1 Z3A.01 [id number] Messi Garcia MD [facility] [address],[place] [address] 1 08/18/2021 10:17:54 08/18/2021 11:20:00 [id number] Peter Bryant [facility] [address],[place] [address] 1 08/18/2021 10:18:19 08/19/2021 12:30:57 Amenorrhea 80524296 Z31.89 Z31.83 [id number] Pretty Cotton MD [facility] [address],[place] [address] 09/10/2021 14:50:18 09/10/2021 15:34:33 screening 400817758 Z36.82 [id number] Pretty Cotton MD [facility] [address],[place] [address] 09/10/2021 14:50:57 09/13/2021 15:22:01 Routine care 438747559 Z34.91 care: history of infertility 778404034 O09.[address] reptococcus carrier 4857786867 103 Z22.330 Hypothyroidism 17049209 E03.9 Maternal o besity complicating , childbirth and the puerperium, antepartum 8749050242 07 O99.211 [id number] Pretty Cotton MD [facility] [address],[place] [address] 1 09/27/2021 17:43:48 09/28/2021 10:23:00 Chronic hypertension complicating AND/OR reason for care during 13005163 O16.9 [id number] Pretty Cotton MD [facility] [address],[place] [address] 1 10/08/2021 14:49:27 10/08/2021 16:16:40 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 3800250 O16.9 care: history of infertility 628048283 O09.01 Hypothyroidism 86999434 E03.9 [id number] Messi Garcia MD [facility] [address],[place] [address] 11/03/2021 16:29:49 11/03/2021 18:37:35 screening 859681573 Z36.3 Z3A.20 [id number] [facility] [address],[place] [address] 11/03/2021 16:30:15 11/03/2021 18:37:10 Routine care 285995758 Z34.91 Anxiety 96775652 F41.9 [id number] Messi Garcia MD [facility] [address],[place] [address] 12/03/2021 15:10:07 12/03/2021 16:20:49 Hypothyroidism 72232103 E03.9 [id number] Messi Garcia MD [facility] [address],[place] [address] 1 12/03/2021 15:10:54 12/03/2021 17:08:45 Placenta circumvallata 2660282 O43.112 Z36.2 Z3A.24 [id number] Messi Garcia MD [facility] [address],[place] [address] 12/29/2021 15:21:10 12/29/2021 16:01:38 Placenta circumvallata 2815139 O43.113 O10.013 O99.213 Z3A.28 [id number] [facility] [address],[place] [address] 12/29/2021 15:22:44 12/29/2021 17:01:50 Routine care 006691137 Z34.91 - induced hypertension 17552284 O13.9 [id number] Messi Garcia MD [facility] [address],[place] [address] 01/13/2022 13:47:29 01/13/2022 14:39:17 Medical examination for suspected condition 662208331 Z03.79 [id number] Messi Garcia MD [facility] [address],[place] [address] 01/13/2022 13:47:50 01/13/2022 15:53:18 Routine care 357976912 Z34.83 [id number] Pretty Cotton MD [facility] [address],[place] [address] 1 01/17/2022 16:24:29 01/17/2022 18:16:59 Threatened premature labor - not delivered 424698493 O47.9 [id number] Pretty Cotton MD [facility] [address],[place] [address] 1 01/17/2022 16:35:15 01/19/2022 15:28:55 Threatened premature labor - not delivered 482849837 O47.9 [id number] Messi Garcia MD [facility] [address],[place] [address] 1 01/26/2022 14:52:57 01/26/2022 15:27:45 Chronic hypertension complicating AND/OR reason for care during 94074659 O16.9 [id number] Messi Garcia MD [facility] [address],[place] [address] 01/26/2022 14:54:57 01/26/2022 16:22:26 Placenta circumvallata 2175495 O43.113 Z3A.32 O10.013 [id number] Peter Bryant, [facility] [address],[place] [address] 01/26/2022 14:55:32 01/26/2022 16:39:21 Routine care 560722350 Z34.91 [id number] MD Rhina Zheng [address],[place] [address] 02/02/2022 16:59:59 02/02/2022 17:58:36 Maternal obesity complicating , childbirth and the puerperium, antepartum 2578095892 07 O99.213 [id number] Messi Garcia MD [facility] [address],[place] [address] 02/02/2022 17:00:19 02/02/2022 18:17:03 Chronic hypertension complicating AND/OR reason for care during 31161559 O10.013 Z3A.33 [id number] [facility] [address],[place] [address] 02/02/2022 17:00:45 02/02/2022 18:50:24 Routine care 784616082 Z34.91 [id number] Messi Garcia MD [facility] [address],[place] [address] 02/09/2022 16:53:15 02/09/2022 17:49:24 Maternal obesity complicating , childbirth and the puerperium, antepartum 2341110828 07 O99.213 [id number] Messi Garcia MD [facility] [address],[place] [address] 1 02/09/2022 16:53:36 02/09/2022 18:15:36 Chronic hypertension complicating AND/OR reason for care during 84308741 O10.013 O99.213 Z3A.34 [id number] [facility] [address],[place] [address] 02/09/2022 16:54:04 02/09/2022 18:25:27 Routine care 280029738 Z34.91 [id number] MD Rhina Zheng [address],[place] [address] 1 02/16/2022 17:00:10 02/16/2022 17:56:48 Chronic hypertension complicating AND/OR reason for care during 19898808 O10.013 O99.213 Z3A.34 [id number] Messi Garcia MD [facility] [address],[place] [address] 1 02/16/2022 17:00:39 02/16/2022 18:07:43 Chronic hypertension complicating AND/OR reason for care during 34167155 O10.013 Z3A.35 O99.213 [id number] Peter Bryant [facility] [address],[place] [address] 02/16/2022 17:01:03 02/16/2022 18:20:17 Routine care 489042557 Z34.91 [id number] Messi Garcia MD [facility] [address],[place] [address] 02/18/2022 15:23:24 02/18/2022 15:53:12 Reduced movement 905349606 O36.8199 [id number] Peter Bryant [facility] [address],[place] [address] 02/23/2022 16:45:10 02/23/2022 18:18:35 Routine care 422062719 Z34.91 Large for gestation age fetus 115675433 O36.63X0 [id number] Messi Garcia MD [facility] [address],[place] [address] 02/23/2022 16:42:55 02/23/2022 17:12:22 Chronic hypertension complicating AND/OR reason for care during 88220282 O10.013 Z3A.35 O99.213 [id number] Messi Garcia MD [facility] [address],[place] [address] 1 02/23/2022 16:43:28 02/23/2022 17:56:35 Chronic hypertension complicating AND/OR reason for care during 40656954 O10.013 O99.213 Z3A.36 [id number] Pretty Cotton MD [facility] [address],[place] [address] 03/16/2022 14:15:55 03/17/2022 16:13:50 Pain in pelvis 92097968 R10.2 [id number] Messi Garcia MD [facility] [address],[place] [address] 03/17/2022 13:34:56 03/17/2022 14:02:57 Pain in pelvis 19763905 R10.2 this patient is a 25-year-ol d [...] face-to-fa ce discussing this very complex topic. [id number] Messi Garcia MD [facility] [address],[place] [address] 03/17/2022 13:35:31 03/18/2022 13:49:15 Pain in pelvis 52848713 R10.2 patient is a 27-year-ol d female [...] We spent over 20 minutes face-to-fa ce. 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 restart lexapro, to ed if any suicidal thoughts, reviewed se risks and benefits f/u 6 week med check if unavailabl e can do by phone Low grade squamous intraepithelial lesion on cervical Papanicolaou smear 5943511814 9105 R87.612 f/u pending pathology [id number] Peter Bryant [facility] [address],[place] [address] 08/16/2023 11:38:58 08/16/2023 13:55:15 Pain in pelvis 58182246 R10.2 also start pelvic floor pT Gynecologi c examination 91745027 Z01.419 [id number] Messi Garcia MD [facility] [address],[place] [address] 08/22/2023 11:28:17 08/22/2023 12:06:29 Pain in pelvis 83459310 R10.2 patient is a 27-year-ol d female [...] We spent over 20 minutes face-to-fa ce. [id number] MD Rhina Zheng [address],[place] [address] 04/23/2024 09:16:05 04/23/2024 10:09:58 screening 371823649 Z36.87 O30.049 Z3A.01 [id number] Messi Garcia MD [facility] [address],[place] [address] 1 05/10/2024 15:16:46 05/10/2024 16:01:31 [id number] Peter Bryant [facility] [address],[place] [address] 05/10/2024 15:17:03 05/10/2024 16:51:44 Amenorrhea 99980193 Z31.89 Z31.83 Dichorioni c diamniotic twin 520325629 O30.049 reviewed US plan us at 12 weeksnipt at 10 weeks with labsawait pap until pp visitrevie wed precaution s and educationh x preeclamps ia without severe features last [id number] Messi Garcia MD [facility] [address],[place] [address] 1 05/21/2024 11:09:17 05/21/2024 12:05:12 Threatened miscarriage 61988866 O20.0 O30.041 Z3A.09 [id number] Messi Garcia MD [facility] [address],[place] [address] 05/23/2024 17:26:08 05/24/2024 10:31:39 Threatened miscarriage 71774592 O20.0 O30.041 Z3A.09 [id number] Messi Garcia MD [facility] [address],[place] [address] 1 05/23/2024 18:31:17 05/24/2024 10:33:13 Pain in pelvis 30192885 R10.2 this patient is a 29-year-ol d [...] is to contact us if pain worsens. [id number] Messi Garcia MD [facility] [address],[place] [address] 05/29/2024 10:21:34 05/29/2024 11:12:31 condition affecting obstetrical care of mother 461346990 O36.8910 Z3A.10 [id number] Messi Garcia MD [facility] [address],[place] [address] 06/03/2024 16:41:37 06/04/2024 14:32:45 screening 445563742 Z36.82 Z3A.11 [id number] Peter Bryant [facility] [address],[place] [address] 06/05/2024 14:45:02 06/06/2024 16:44:18 Nausea and vomiting 88320949 R11.2 Migraine 17762422 G43.90 9 Routine an tenatal care 047794102 Z34.91 Twin 45785710 O30.009 [id number] Messi Garcia MD [facility] [address],[place] [address] 06/12/2024 17:23:11 06/12/2024 18:08:31 Medical examination for suspected condition 170656717 Z03.72 Z3A.12 [id number] Messi Garcia MD [facility] [address],[place] [address] 07/01/2024 16:17:41 07/01/2024 17:36:13 Dichorionic diamniotic twin 153243574 O30.042 Z3A.15 [id number] [facility] [address],[place] [address] 07/03/2024 09:17:02 07/03/2024 09:55:31 Gestation period, 15 weeks 0509548 Z3A.15 [id number] ALEC WILKINSON MD [facility] [address],[place] [address] 07/08/2024 10:41:29 07/08/2024 11:38:56 Pruritic rash 16220552 L28.2 Dichorioni c diamniotic twin 198576879 O30.049 Chronic hy pertension complicating AND/OR reason for care during 43322402 O16.9 Gestation period, 16 weeks 29590656 Z3A.16 [id number] Messi Garcia MD [facility] [address],[place] [address] 07/12/2024 10:38:28 07/12/2024 11:50:01 [id number] Peter Bryant [facility] [address] [place] [address] 1 07/31/2024 16:35:21 08/01/2024 09:45:58 Gestation period, 19 weeks 83275643 Z3A.19 Dichorioni c diamniotic twin 546081167 O30.049 Gastroesop hageal reflux disease 624282687 K21.9 [id number] Peter Bryant [facility] [address],[place] [address] 08/09/2024 12:12:22 08/09/2024 14:11:25 Pain in pelvis 16033731 R10.2 start physical therapy [id number] Messi Garcia MD [facility] [address],[place] [address] 08/22/2024 12:06:07 08/22/2024 13:36:01 Dichorionic diamniotic twin 161726748 O30.042 O36.8120 Z3A.23 [id number] Peter Bryant [facility] [address],[place] [address] 08/28/2024 14:16:16 08/30/2024 10:02:02 [id number] Peter Bryant [facility] [address],[place] [address] 1 08/29/2024 09:57:22 08/30/2024 10:26:31 Gestation period, 24 weeks 007503485 Z3A.24 Health Concerns Section Related Observation LastModified by Organization Detai ls LastModified Time None Recorded Concern Status LastModified by Organization Details LastModified Time None Recorded Advance Directives Directive N: Payers Encounter Date Sequence Insurance Name Policy Number Policy Steele Covered Member ID Steele Member ID Guarantor Name 07/31/2024 1 [employer] [id number] Luis Antonio A Corzine [id number] Yessica M Corzine 08/09/2024 1 [employer] [id number] Luis Antonio A Corzine [id number] Yessica M Corzine 08/22/2024 1 [employer] [id number] Luis Antonio A Corzine [id number] Yessica M Corzine 08/28/2024 1 [employer] [id number] Luis Antonio A Corzine [id number] Yessica M Corzine 08/29/2024 1 [employer] [id number] Luis Antonio A Corzine [id number] Yessica M Corzine OBGyn Episode Ob Episode Information Episode Created Date Number of Fetuses Patient Bloodtype Patient rh Status Prepregnancy Weight lbs Domestic Partner Domestic Partner Phone Father Name Director Of Sales Marketing Status 12/25/19 20 1 CLOSED Fetus Data [...] Domestic Partner Domestic Partner Phone Father Name Director Of Sales Marketing Status 12/25/19 20 1 CLOSED Fetus Data [...] Domestic Partner Domestic Partner Phone Father Name Director Of Sales Marketing Status 09/11/19 22 1 A Positive 221 CLOSED Fetus Data First Name Last Name Admitted to NICU Weight (g) Sex Living Outcome Pediatric Complications Fetus ID Race Codes Race Delivery Type 4224.07 55 M true Full Term [id number] Vaginal Delivery Problems Problem Notes TSH WNL/A+/Ha1c/CBC WNL Problem Name Start Date End Date Resolution Snomed Code Not e Hypothyroidism 98075886 care: history of infertility 745182657 Group B Streptococcus carrier 2610921766354 bacteriuria Maternal obesity complicating , childbirth and the puerperium, antepartum 179226732636 BMI 39- ante testing at 37w 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 6265406 maia ellsworth , baseline labs, ASA Placenta circumvallata 5887519 Serial growth u/s Pre-eclampsia 693897585 Darren Calculation Initial Darren Date Initial Exam [...] Date Ultra Sound Latest Days Gestation 0 [email or web address] 09/13/2021 03/23/20 22 0 Pre-erick Flowsheet Flowsheet Date 09/10/2021 Mckinney Score Blood Edema Fundus Height Fundus Units Glucose Ketones Leukocytes Nitrite Labor Signs Protein Cervic Dilation Cervic Effacement Cervic Station neg none Type Weight in lbs Pre/Post Dialysis Refused Weight 225.459000784126 BP Diastolic BP Location Tested BP Systolic [...] Weight in lbs Pre/Post Dialysis Refused Weight 226.930072709307 BP Diastolic BP Location Tested BP Systolic [...] Weight in lbs Pre/Post Dialysis Refused Weight 224.884858678748 BP Diastolic BP Location Tested BP Systolic [...] Weight in lbs Pre/Post Dialysis Refused Weight 230.521325714705 BP Diastolic BP Location Tested BP Systolic [...] Weight in lbs Pre/Post Dialysis Refused Weight 234.944033893646 BP Diastolic BP Location Tested BP Systolic [...] Weight in lbs Pre/Post Dialysis Refused Weight 235.082708158819 BP Diastolic BP Location Tested BP Systolic [...] Weight in lbs Pre/Post Dialysis Refused Weight 239.873534112309 BP Diastolic BP Location Tested BP Systolic [...] Weight in lbs Pre/Post Dialysis Refused Weight 240.600084549683 BP Diastolic BP Location Tested BP Systolic [...] Weight in lbs Pre/Post Dialysis Refused Weight 242.410217794191 BP Diastolic BP Location Tested BP Systolic [...] Weight in lbs Pre/Post Dialysis Refused Weight 243.780524679600 BP Diastolic BP Location Tested BP Systolic BP Type 85 123 Fetus Heart Rate Present Fetus Movement A Yes Comments patient states that having s ome left leg numbness, pain, contractions, and swelling. bpp 12/13, rec chiropractor, ptl precautions f/u next week [...] Weight in lbs Pre/Post Dialysis Refused Weight 242.796365689129 BP Diastolic BP Location Tested BP Systolic BP Type 77 122 Fetus Heart Rate Present Fetus Movement A Yes Comments patient states that having l eft leg numbness, pain, contractions, dizziness and swelling. bpp 12/13 reviewed precautions increase rest, kick counts, growth [...] Weight in lbs Pre/Post Dialysis Refused Weight 246.793579495342 BP Diastolic BP Location Tested BP Systolic BP Type 92 146 90 160 Fetus Heart Rate Present Fetus Movement A Decreased Comments patient is having pain, cont ractions, heartburn and swelling. bp elevated nst nr, bpp 12/13, decreased movement to ld for labs and [...] Weight in lbs Pre/Post Dialysis Refused Weight 246.491986048789 BP Diastolic BP Location Tested BP Systolic [...] Weight in lbs Pre/Post Dialysis Refused Weight 211.958371014356 BP Diastolic BP Location Tested BP Systolic [...] Weight in lbs Pre/Post Dialysis Refused Weight 211.695302358065 BP Diastolic BP Location Tested BP Systolic BP Type 86 L arm 126 sitting Fetus Heart Rate Present Fetus Movement Comments Flowsheet Date 04/08/2022 Mckinney Score Blood Edema Fundus Height Fundus Units Glucose Ketones Leukocytes Nitrite Labor Signs Protein Cervic Dilation Cervic Effacement Cervic Station Type Weight in lbs Pre/Post Dialysis Refused Weight 212.76938317090 BP Diastolic BP Location Tested BP Systolic BP Type 84 134 Fetus Heart Rate Present Fetus Movement Comments Flowsheet Date 05/27/2022 Mckinney Score Blood Edema Fundus Height Fundus Units Glucose Ketones Leukocytes Nitrite Labor Signs Protein Cervic Dilation Cervic Effacement Cervic Station Type Weight in lbs Pre/Post Dialysis Refused Weight 221.460500682867 BP Diastolic BP Location Tested BP Systolic [...] Estim ated Date of Delivery false Thalassemia (Syrian, Syriac, Mediterranean, Or Background): MCV < 80 false Neural Tube Defect (Meningomyelocele, Spina Bifi da, Or Anencephaly) false Congenital Heart Defect false Down Syndrome false Curt-Sachs (eg, Pentecostalism, Cajun, Armenian-Saluda) f alse Yung Disease false Sickle Cell [...] Domestic Partner Domestic Partner Phone Father Name Director Of Sales Marketing Status 06/05/19 25 2 A Positive 198 Gabriel Mo OPEN Fetus Data First Name Last Name Admitted to NICU Weight (g) Sex Living Outcome Pediatric Complications Fetus ID Race Codes Race Delivery Type [id number] Problems Problem Notes Anatomy with MFM - 07/31/24 1 300 [facility] U/S & OV [facility] 08/27/24 US only 1:00PM Problem Name Start Date End Date Resolution Snomed Code Not e care: history of infertility 988867067 Past history of shoulder dystocia 402059625 Large for gestation age fetus 681832795 less then 30 se c shoulder dystocia Past history of pre-eclampsia 037834462418524 bASA x2 Migraine 27032590 magnesium, Excedrin tension, sumatriptan 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 6801310 Palpitations [id number] Holter monitor faxed to [facility] 07/29 Twin [id number] 38 wk deliveryantenatal testing @ 32wks per [facility] Scheduled rpt 08/27 us ONLY Darren [...] Latest Days Gestation 0 12/20/19 25 0 Pre-erick Flowsheet Flowsheet Date 06/05/2024 Mckinney Score Blood Edema Fundus Height Fundus Units Glucose Ketones Leukocytes Nitrite Labor Signs Protein Cervic Dilation Cervic Effacement Cervic Station neg none none trace Type Weight in lbs Pre/Post Dialysis Refused Weight 207.762075606734 BP Diastolic BP Location Tested BP Systolic [...] disability paperwork. will plan on referral to [facility] for anatomy and history of HTN/preeclampsia, [...] Type Weight in lbs Pre/Post Dialysis Refused 214.708182448944 BP Diastolic BP Location Tested BP Systolic [...] Weight in lbs Pre/Post Dialysis Refused Weight 216.632206375432 BP Diastolic BP Location Tested BP Systolic [...] No bleeding. Will send for anatomy at [facility]. Will measure for belly band today [...] Type Weight in lbs Pre/Post Dialysis Refused 220.440180969046 BP Diastolic BP Location Tested BP Systolic BP Type 92 152 53 114 Fetus Heart Rate Present Fetus Movement A Yes B Yes Comments Patient is having headaches, pain, contractions, swelling, Had elevated heart rate over the weekend and get heart moniter on , 08/08/24. saw [facility] this morning rec 2 bASA, will rpt anatomy in 4 weeks, precautions and education f/u 4 weeks Flowsheet Date 08/09/2024 Mckinney Score Blood Edema Fundus Height Fundus Units Glucose Ketones Leukocytes Nitrite Labor Signs Protein Cervic Dilation Cervic Effacement Cervic Station neg none none neg Type Weight in lbs Pre/Post Dialysis Refused 227.959525930410 BP Diastolic BP Location Tested BP Systolic [...] Weight in lbs Pre/Post Dialysis Refused Weight 229.843982552521 BP Diastolic BP Location Tested BP Systolic BP Type 89 133 Fetus Heart Rate Present Fetus Movement A Yes B Yes Comments Patient is having pressure, contractions and swelling. Flowsheet Date 08/29/2024 Mckinney Score Blood Edema Fundus Height Fundus Units Glucose Ketones Leukocytes Nitrite Labor Signs Protein Cervic Dilation Cervic Effacement Cervic Station Type Weight in lbs Pre/Post Dialysis Refused 232.46876859167 BP Diastolic BP Location Tested BP Systolic [...]
[2024-09-17 21:53] VITALS: BP 147/72; PULSE 111
[2024-09-17 22:01] VITALS: BP 132/68; PULSE 111
--- NOTE | 2024-09-17 22:26 | PC.NURSE ---
2131- Pt is a with current twin gestation that presents to unit with complaints of spotting. Pt states she first noticed small smear of bright red blood at approx 1730 this evening and then again at 1930 and has not experienced any bleeding since 1930. Pt denies any complications this . Pt denies feeling any contractions or experiencing pain. Pt denies any intercourse in the past 24 hours or trauma to abdomen. Abdomen palpates soft and pt states she has good movement x2. 2212- RN called Dr. Garcia and notified him of pts arrival to unit with c/o inconsistent spotting. RN reported FHT's appropriate for gestational age and occasional contractions that were not felt by pt. Orders received for pt to be discharged to home and to call [facility] office in AM and make appointment for ultrasound.
[2024-09-17 22:36] VITALS: BMI 36.6
--- OUTSIDE RECORDS SUMMARY | 2024-09-18 07:20 | XMS_ITS | Clinical Summary ---
Author Organization [facility] Address [address] [place] [address] Care Team Providers Care Ferruler Name Role Phone Scooter White DO Primary Care Provider [phone] [facility],non-owned Affiliates and Associated Physician Practices is amultiple site organization consisting of ambulatory clinics and hospital sitesin [place], [place], [place] and [place]. This disclosure is being madepursuant to the Care Everywhere program and may not contain all information available regarding this patient. Last updated 18.[facility] Allergies Active Allergy Reactions Criticality Noted Date [...] - 08/27/2024 11:59 PM CDT Hospital Encounter [facility] [address] [place] [address] Christiano Tristan MD Discharge Disposition: Home or Self Care 07/31/2024 12:59 PM CDT - 07/31/2024 11:59 PM CDT Hospital Encounter [facility] [address] [place] [address] Katina Ewing MD Discharge Disposition: Home or Self Care 07/31/2024 12:59 PM CDT - 07/31/2024 11:59 PM CDT Hospital Encounter [facility] [address] [place] [address] Katina Ewing MD Discharge Disposition: Home or [...] on file Legal Sex Female 1:08 PM SUGAR COATING HAND Gender Identity Not on file Sexual Orientation [...] Description 09/24/2024 1:00 PM CDT Hospital Encounter [facility] Maternal & Care [address] [place], [place] [id number] Health Maintenance Due Date Last Done Comments [...] CDT Dichorionic diamniotic twin in second trimester ([facility]) History of pre-eclampsia in prior , currently ([facility]) 24 weeks gestation of ([facility]) Supervision of high risk in second trimester ([facility]) SONOGRAM - COMPLETE Routine 07/31/2024 1 2:55 [...] History ====== OB History 4. Para 3 [id number] 1. live 2011. Gest. age 41 w [...] 1 lb 11 oz EFW by Hadlock ([id number]) EFW discordance 7.5 % accelerated Fetus B: Biometry BPD 56.5 mm 23w 2d 27% Hadlock HC 211.7 mm 23w 2d 17% Hadlock AC 202.4 mm 24w 6d 77% Hadlock Femur 43.7 mm 24w 2d 59% Hadlock HC / AC 1.05 -/- Hadlock Weight Calculation: EFW 695 g 74% Hadlock EFW (lb,oz) 1 lb 9 oz EFW by Hadlock ([id number]) EFW discordance 7.5 % appropriate Fetus A: [...] view. RVOT view. LVOT view. 3-vessel view. 5-wdxclk-jatjylc view. Bicaval view. Ductal arch view. Interventricular [...] Thorax 4-chamber view. LVOT view. 3-vessel view. 8-zqupmr-xpkfpyt view. Aortic arch view. Bicaval view. Interventricular [...] to complete anatomic survey Coding ====== Procedures 63386: US Preg Uterus Follow Up. x2 MAR PACS Anatomical Region Laterality Modality Other 08/27/2024 12:5 2 PM CDT R Bert Garcia MD [facility] ORDERABLES Edited Result - Final from Last 3 Months Insurance Care Teams Ferruler Relationship Specialty Start Date End Date Scooter White DO PCP - General 03/16/22
--- OUTSIDE RECORDS SUMMARY | 2024-09-18 07:20 | XMS_ITS | Encounter Summary ---
Author Organization [facility] Address [address] [place] [address] Care Team Providers Care Recovery Coordinator Name Role Phone Scooter White DO Primary Care Provider Encounter Details Date Type Department Care Team (Late Contact Info) Description 11/06/2018 Lab Requisition [facility] Care Pathology Lab [address] [place] [address] Cindi Herrera MD [address] [place] [address] Enlarged lymph nodes Social History Tobacco Use Types Packs/Day Years Used Date Smoking Tobacco: Never Smokeless Tobacco: Never Alcohol Use Standard Drinks/Week Comments No 0 (1 standard drink = 0.6 oz pur e alcohol) Comments No Sex and Gender Information Value Date Recorded Sex Assigned at Not on file Legal Sex Female 1:08 PM FLASH WELDER Gender Identity Not on file Sexual Orientation Not on file documented as of this encounter Plan of Treatment Upcoming Encounters Date Type Department Care Team (Late st Contact Info) Description 09/24/2024 1:00 PM CDT Hospital Encounter [facility] Maternal & Care [address] [place] [address] documented as of this encounter Procedures Procedure Name Priority Date/Time Associated Diagnosis Comments FLOW CYTOMETRY TISSUE PANEL Routine 11/05/2018 11:02 AM CDT Enlarged lymph nodes documented in this encounter Results * FLOW CYTOMETRY TISSUE PANEL (11/05/2018 11:02 AM CDT) Case Report Flow Cytometry Case: [id number] Authorizing Provider: Cindi Herrera MD Collected: 11/05/2018 11:02 AM Pathologist: Alexa Weinberg MD Received: 11/06/2018 02:01 PM Specimen: Cervical Lymph Node , Left 5:33 PM CDT [facility] PATHOLOGY LAB Final Diagnosis Lymph node, left cervical, flow cytometric immunophenotypic analysis: - No evidence of non-Hodgkin lymphoma. - See interpretation. 5:33 PM CDT [facility] PATHOLOGY LAB Flow Cytometry Interpretation [...] the flow cytometry specimen is reviewed for corporate quality assurance manager purposes. In summary, the left cervical lymph node specimen shows no evidence of a non-Hodgkin lymphoma. Correlation with additional clinical information and the concurrent biopsy specimen is required. KR 9 5:33 PM T [facility] PATHOLOGY LAB Flow Cytometry Results Differential Result Comment Flow Cell Count /uL [id number] Total Viability % 86.0 Lymphocytes % 97 Dim CD45 Region % 0 Monocytes % 1 Granulocytes % 1 9 5:33 PM CDT [facility] PATHOLOGY [facility] Reason for test Enlarged lymph nodes 785.6 9 5:33 PM CDT [facility] PATH[facility] Client Specimen ID # [id number] 9 5:33 PM [facility] PATH[facility] Number of markers 16 were performed. A Flow CD3 A Flow CD10 A Flow CD20 A Flow CD23 A Flow CD2 A Flow CD4 A Flow CD1a A Flow CD5 A Flow CD19 A Flow CD34 A Flow CD45 A Flow CD7 A Flow CD8 A Flow CD30 A [place]+CD19+ A Lambda+CD19+ 9 5:33 PM CDT [facility] PATHOLOGY LAB Disclaimer Test performed at [facility], [address] [place], [place], [address]. *The established laboratory minimum viability is 70%. [...] complexity clinical testing. 9 5:33 PM CDT [facility] PATHOLOGY LAB Embedded Images 9 5:33 PM CDT [facility] PATHOLOGY LAB Pathology/Cytolo gy ENTIRE CERVICAL LYMPH NODE / Unknown 11/05/2018 11:02 AM CDT 11/06/2018 2:01 PM CDT Cindi Herrera MD LAB - PATHOLOGY/CYTOLOGY ORDERA BLES Final Result [facility] PATHOLOGY LAB [address] [place] [address]. [place] [address], [facility] [phone] documented in this encounter Visit Diagnoses Diagnosis Enlarged lymph nodes Enlargement of lymph nodes History of pre-eclampsia in prior , currently (HCC)- Primary with other poor obstetric history Dichorionic diamniotic twin in second trimester ([facility]) Twin , antepartum 28 weeks gestation of ([facility]) state, incidental Supervision of high risk in second trimester (HCC) Unspecified high-risk Obesity affecting in second trimester, unspecified obesity type ([facility]) Encounter for follow-up ultrasound of anatomy ([facility]) Encounter for ultrasound to assess growth ([facility]) documented in this encounter Care Teams Recovery Coordinator Relationship Specialty Start Date End Date Scooter White DO PCP - General 03/16/22 documented as of this encounter
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
--- OUTSIDE RECORDS SUMMARY | 2024-09-18 07:20 | XMS_ITS | Encounter Summary ---
Author Organization [facility] Address [address] [place] [address] Phone Care Team Providers Care Dough Mixing Machine Operator Name Role Phone Manda Singh MD Unavailable [phone] Robby Torres Primary Care Provider [phone] Scooter White DO Primary Care Provider Malik Cates MD Unavailable Ulices Marino MD Unavailable Yon Gutierrez MD Primary Care Provider Encounter Details Date Type Department Care Team (Late st Contact Info) Description 03/09/2020 [facility] [address] [place] [id number] Walter Blake MD [address] [place] [address] Preop testing (Primary Dx) Social History Tobacco [...] COVID-19? Unable to assess 03/10/2020 1:32 PM PRODUCT MARKETING SPECIALIST documented as of this encounter Plan of Treatment Upcoming Encounters Date Type Department Care Team (Late st Contact Info) Description 09/26/2024 1:00 PM CDT Office Visit [facility] - Neurology - [place] [address] [place] [address] Georgina Fontenot APRN, BEHAVIORAL HEALTH CASE MANAGER [address] [place] [address] documented as of this encounter Visit Diagnoses Diagnosis Preop testing- Primary Preoperative examination, unspecified documented in this encounter Additional Health Concerns Infection Onset Date Last Indicated Resolved Time COVID - 19 03/10/2020 03/10/2020 03/16/2020 11:4 0 AM PRODUCT MARKETING SPECIALIST Assessment Noted Time PHQ-9 Depression Total Score: 0 02/11/20 20 12:57 PM CDT documented as of this encounter Care Teams Dough Mixing Machine Operator Relationship Specialty Start Date End Date Robby Torres [address] [place] [address] PCP - General Family Medicine 02/11/20 03/16/21 Scooter White DO [address] [place] [address] PCP - General Internal Medicine 03/17/21 06/22/23 Yon Gutierrez MD [address] [facility] [address] PCP - General Family Medicine 06/23/23 Manda Singh MD Obstetrics & Gynecology 02/11/20 Malik Cates MD [address] [address] Consulting Physician Endocrinology 12/13/21 Ulices Marino MD [address] [address] Consulting Physician Colon and Rectal Surgery 07/06/22 documented as of this encounter
--- OUTSIDE RECORDS SUMMARY | 2024-09-18 07:20 | XMS_ITS | Referral Summary ---
Author Organization [facility] Address [address] [place] [address] Care Team Providers Care Manager Sustainability Name Role Phone Robby Torres MD Unavailable [phone] Yon Gutierrez MD Primary Care Provider Malik Cates MD Unavailable Cindi Bryant NP Unavailable [phone] Sakshi Biggs DO Unavailable [phone] Encounters Date Type Department Care Team Description 08/09/2024 8:15 AM CDT Office Visit [facility] - [facility] [address] [facility] [address] [place] [address] Sakshi Biggs, Otorrhea of right ear (Primary Dx) from Last 3 Months Allergies Active Allergy Reactions Criticality Noted Date Comments Cephalexin Hives Medium 12/21/2023 Prednisone Hives Medium 08/09/2024 Medications aspirin 81 mg enteric coated tablet Take 1 tablet (81 mg total) by mouth daily Active vit 99-mxug-vyjue-dh a 27mg iron- 800 mcg-250 mg capsule [...] one by Dr. Davila for endometriosis at [facility] - this is her second period currently, [...] possible Assessment & Plan (06/20/2023 9:50 AM HRIS MANAGER): Hearing test, plan for bilateral myringotomy with [...] managed by endocrinology - Dr. Cates (her tower cleaner) tried some medications without success - insurance [...] managed by endocrinology - Dr. Cates (her tower cleaner) tried some medications without success - insurance [...] managed by endocrinology - Dr. Cates (her tower cleaner) tried some medications without success - insurance limitations can affect it - start Phentermine, taper up dose sent - f/u in 6 weeks Assessment & Plan (05/28/2023 3:41 PM HRIS MANAGER): Wt Readings from Last 3 Encounters: 05/26/23 [...] months Assessment & Plan (05/28/2023 3:35 PM HRIS MANAGER): - chronic, recurrent condition, worse - in [...] disease. Assessment & Plan (05/28/2023 3:36 PM HRIS MANAGER): - chronic, recurring condition - has history [...] Recommend thyroid ultrasound. Instructed to inform her tower cleaner about MRI findings. US Thyroid 09/2022 IMPRESSION: [...] recommended. Assessment & Plan (05/28/2023 3:28 PM HRIS MANAGER): Chronic condition, stable/controlled Diagnosed in 2018 Currently [...] 02/13/2019 Assessment & Plan (05/28/2023 3:38 PM HRIS MANAGER): - recent onset - was seen recently [...] 019 Assessment & Plan (05/26/2023 8:54 AM HRIS MANAGER): - had EGD in past and was found to have H. Pylori which was being treated - no current issues at this time Chronic gastritis 11/26/2018 Overview (05/03/2023): EGD - H pylori, GI S/P hemorrhoidectomy 11/26/2018 Conductive hearing loss, middle ear 10/18/2018 Assessment & Plan (04/03/2024 2:03 PM HRIS MANAGER): Avoid ear cleaning techniques Avoid water to ears Hearing test today was normal, ear tubes open suspect referred ear fullness from neck or jaw Chronic serous otitis media of left ear 10/19/19 19 Assessment & Plan (04/03/2024 1:03 PM HRIS MANAGER): Avoid ear cleaning techniques Avoid water to [...] 05/28/2023 Overview (05/03/2023): Vaginitis;Recorded Elsewhere: No Location: [facility] Source: EHR Chronic: N Practice ID: [id number] Billable Time: 10:45:00 AM TMJ (temporomandibular joint syndrome) 01/04/2019 05/28/2023 Chronic gastritis 11/26/2018 05/26/2023 Prolapsed internal hemorrhoids, grade 4 09/26/2018 05/26/2023 Overview (09/26/2018): Added automatically from request for surgery [id number] Assessment & Plan (09/26/2018 2:45 PM CDT): [...] on file Legal Sex Female 10:18 AM HRIS MANAGER Gender Identity Not on file Sexual Orientation Not on file Last Filed Vital Signs Vital Sign Reading Time Taken Comments Blood Pressure 138/88 04/06/2024 10:25 PM HRIS MANAGER Pulse 78 04/06/2024 11:45 PM HRIS MANAGER Temperature 36.3 C (97.4 F) 04/06/2024 10:25 PM HRIS MANAGER Respiratory Rate 18 04/06/2024 10:25 PM HRIS MANAGER Oxygen Saturation 100% 04/06/2024 11:45 PM HRIS MANAGER Inhaled Oxygen Concentration - - Weight 85.7 kg (189 lb) 04/06/2024 10:25 PM HRIS MANAGER Height 165.1 cm (5' 5) 04/06/2024 10:25 PM HRIS MANAGER Body Mass Index 31.45 04/06/2024 10:25 PM HRIS MANAGER Plan of Treatment Not on file Medical Devices Implanted Type Area Associate Professor Of English Device Identifier Shelf Expiration Date Model / Serial / Lot Olymp[employer] 1.32mm 4.8mm Modify Ear T Tube Ventilation Ultrasil Sterile Blue [id number] - [id number] Implanted:Qty: 1 on 07/11/2023 by Sakshi Biggs DO at [facility] Left: Ear [employer] 01/03/2033 [id number] / / [id number] [employer] 1.32mm 4.8mm Modify Ear T Tube Ventilation Ultrasil Sterile Blue [id number] - [id number] Implanted:Qty: 1 on 07/11/2023 by Sakshi Biggs DO at [facility] Right: Ear [employer] 01/18/2033 [id number] / / [id number] Insurance [facility]/PPO Address: [address] [address] [facility]O Address: [address] [address] [facility]/PPO Address: [place] [id number] Care Teams Manager Sustainability Relationship Specialty Start Date End Date Yon Gutierrez MD PCP - General Family Medicine 04/04/23 Robby Torres MD Referring Physician Family Medicine 08/22/19 Malik Cates MD [address] [place] [address] Referring Physician General Surgery 05/26/23 Cindi Bryant NP [address] [place] [address] Nurse Practitioner Obstetrics and Gynecology 05/26/23 Sakshi Biggs DO [address] [place] [address] [address] INGRAM [address] [address] Consulting Physician Otolaryngology 05/26/23
--- OUTSIDE RECORDS SUMMARY | 2024-09-18 07:20 | XMS_ITS | Encounter Summary ---
Author Organization [facility] Address [address] [place] [address] Phone Care Team Providers Care Power Mule Operator Name Role Phone Manda Singh MD Unavailable [phone] Scooter White DO Primary Care Provider Malik Cates MD Unavailable Ulices Marino MD Unavailable Yon Gutierrez MD Primary Care Provider Encounter Details Date Type Department Care Team (Late st Contact Info) Description 07/26/2021 Lab Requisition [facility] Laboratory Services [address] [place] [address] Edita Garza, PURCHASING INTERNSHIP, BUTTON TUFTER [address] [place] [address] Encounter for pre-employment examination Social History Tobacco [...] 09/26/2024 1:00 PM CDT Office Visit [facility] - Neurology - [place] [address] [place] [address] Georgina Fontenot, PURCHASING INTERNSHIP, FOREST ENGINEER [address] [place] [address] documented as of this encounter Procedures Procedure [...] 2.7 >=1.1 AI 07/26/2021 10:00 PM CDT [facility] Blood No Phlebotomy Charged / Unknown 07/26/2021 9:00 AM CDT 07/26/2021 2:15 PM CDT Narrative [facility] - 07/26/2021 10:00 PM CDT <= 0.8 Negative. No detectable VZV IgG antibody. 0.9 - 1.0 Equivocal >=1.1 Positive Antibody testing was performed by multiplex flow immunoassay on the BioPlex platform. Edita Garza PURCHASING INTERNSHIP, BUTTON TUFTER IMMUNOLOGY ORDERABL ES Final Result Performing Organization Address [facility] Co de Phone Number [facility] [address] [place] [address], [place] * (ABNORMAL) RUBEOLA (MEASLES) IGG (07/26/2021 9:00 AM CDT) MEASLES AB IGG 0.7(L) >=1.1 AI 07/26/2021 10:00 PM CDT [facility] Blood No Phlebotomy Charged / Unknown 07/26/2021 9:00 AM CDT 07/26/2021 2:15 PM CDT Narrative [facility] - 07/26/2021 10:00 PM CDT <= 0.8 Negative. No detectable Measles IgG antibody. 0.9 - 1.0 Equivocal >=1.1 Positive Antibody testing was performed by multiplex flow immunoassay on the BioPlex platform. us Edita L Behrends PURCHASING INTERNSHIP, BUTTON TUFTER IMMUNOLOGY ORDERABL ES Final Result Performing Organization Address City/[facility] Co de Phone Number [facility] [address] [place] [address], [place] * RUBELLA IMMUNITY IGG (07/26/2021 9:00 AM CDT) [facility] Immune Immune, Invalid 07/26/2021 10:00 PM CDT [facility] Blood No Phlebotomy Charged / Unknown 07/26/2021 9:00 AM CDT 07/26/2021 2:15 PM CDT Narrative [facility] - 07/26/2021 10:00 PM CDT Antibody testing was performed by multiplex flow immunoassay on the BioPlex platform. us Edita L Behrenjohn PURCHASING INTERNSHIP, BUTTON TUFTER CHEMISTRY ORDERABLE S Final Result Performing Organization Address [facility] de Phone Number [facility] [address] [place] [address], [place] * MUMPS IGG (07/26/2021 9:00 AM CDT) Pathologist [facility] Mumps Ab IgG 1.2 >=1.1 AI 07/26/2021 10:00 PM CDT [facility] Blood No Phlebotomy Charged / Unknown 07/26/2021 9:00 AM CDT 07/26/2021 2:15 PM CDT Narrative [facility] - 07/26/2021 10:00 PM CDT <= 0.8 Negative. No detectable Mumps IgG antibody. 0.9 - 1.0 Equivocal >=1.1 Positive Antibody testing was performed by multiplex flow immunoassay on the BioPlex platform. us Editahenry Garza PURCHASING INTERNSHIP, BUTTON TUFTER IMMUNOLOGY ORDERABL ES Final Result Performing Organization Address [facility] Co de Phone Number [facility] [address] [place] [address], [place] * QUANTIFERON-TB GOLD PLUS (07/26/2021 9:00 AM CDT) Pathologist [facility] NIL CONTROL 0.04 <8.01 IU/mL 07/28/2021 1:01 PM CDT [facility] TB ANTIGEN 1 0.00 <0.35 IU/mL 07/28/2021 1:01 PM CDT [facility] TB ANTIGEN 2 0.00 <0.35 IU/mL 07/28/2021 1:01 PM CDT [facility] MITOGEN CONTROL 9.64 >0.49 IU/mL 07/29/19 1:01 PM CDT [facility] INTEPRETATION TB NEGATIVE NEGATIVE, NEGATIVE (TB antigen response less than 25% of internal negative control value) 07/28/2021 1:01 PM CDT [facility] Comment:No immune response t o Mycobacterium tuberculosis antigens was noted. M. tuberculosis infection unlikely. Blood No Phlebotomy Charged / Unknown 07/26/2021 9:00 AM CDT 07/26/2021 2:15 PM CDT Narrative [facility] - 07/28/2021 1:01 PM CDT A [...] otherwise immunocompromised individuals. https://www.cdc.gov/tb/publications/guidelines/testing.htm Edita Garza APRN, BUTTON TUFTER IMMUNOLOGY ORDERABL ES Final Result Performing Organization Address [facility] de Phone Number [facility] [address] [place] [address], [place] * HEPATITIS B SURFACE ANTIBODY (HBSAB) (07/26/2021 9:00 AM CDT) HEPATITIS B SURFACE ANTIBODY 8.33 mIU/mL [facility] [id number] B 07/27/2021 12:02 AM CDT [facility] Comment: Grayzone Range: >=8.00 to <=12.00 The immune status of the individual should be further assessed considering other factors, such as clinical status, follow-up testing, associated risk factors and the use of additional diagnostic information. Blood No Phlebotomy Charged / Unknown 07/26/2021 9:00 AM CDT 07/26/2021 2:15 PM CDT Edita Garza APRN, BUTTON TUFTER CHEMISTRY ORDERABLE S Final Result Performing Organization Address [facility] de Phone Number [facility] [address] [place] [address], [place] documented in this encounter Visit Diagnoses Diagnosis Encounter for pre-employment examination Health examination of defined subpopulation documented in this encounter Additional Health Concerns Assessment Noted Time PHQ-9 Depression Total Score: 0 02/11/20 20 12:57 PM CDT documented as of this encounter Care Teams Power Mule Operator Relationship Specialty Start Date End Date Scooter White DO [facility] [facility] [place] [address] PCP - General Internal Medicine 03/17/21 06/22/23 Yon Gutierrez MD [facility] [address] [place] [address] PCP - General Family Medicine 06/23/23 Manda Singh MD Obstetrics & Gynecology 02/11/20 Malik Cates MD #[address] [address] Consulting Physician Endocrinology 12/13/21 Ulices Marino MD #[address] [address] Consulting Physician Colon and Rectal Surgery 07/06/22 documented as of this encounter
--- OUTSIDE RECORDS SUMMARY | 2024-09-18 07:20 | XMS_ITS | Clinical Summary ---
Author Organization [facility] Address [address] [facility], [address] [address] Phone Care Team Providers Care Sharepoint Architect Name Role Phone Manda Singh MD Unavailable [phone] Malik Cates MD Unavailable Ulices Marino [...] Transcribe Orders [facility] [address] [place] [address] Provider, Not On File Low back pain, [...] 97.5 kg (215 lb) 04/19/2023 8:07 AM WASHER CARCASS Height 165.1 cm (5' 5) 04/19/2023 8:07 AM WASHER CARCASS Body Mass Index 35.78 04/19/2023 8:07 AM WASHER CARCASS Plan of Treatment Upcoming Encounters Date Type Department Care Team (Late st Contact Info) Description 09/26/2024 1:00 PM CDT Office Visit [facility] - Neurology [facility] [address] [place] [address] Georgina Fontenot, RANGE MOUNTER, BROOM MAKER [address] [place] [address] Health Maintenance Due Date Last Done Comments [...] this topic Medical Devices Implanted Type Area Cadastral Surveyor Device Identifier Shelf Expiration Date Model / Serial / Lot Tube Ventilation 5mm Carey Triune - [id number] Implanted:Qty: 1 on 11/05/2018 by Jordon Deng MD at [facility] IMPLANT Left: Ear [employer] 04/06/2020 510-122 / 510-122 / [id number] Description:Ear tubes came f rom the same package Tube Ventilation 5mm Carey Triune - [id number] Implanted:Qty: 1 on 11/05/2018 by Jordon Deng MD at [facility] IMPLANT Right: Ear [employer] 04/06/2020 510-122 / 510-122 / [id number] Description:Ear tubes came f rom the same package Insurance * Guarantor: [facility] Account Type Relation to Patient Date of Phone Billing Address Institutional Other [address] [place] [address] Care Teams Sharepoint Architect Relationship Specialty Start Date End Date Yon Gutierrez MD 2 [facility] [address] [place] [address] PCP - General Family Medicine 06/23/23 Manda Singh MD Obstetrics & Gynecology 02/11/20 Malik Cates MD #[address] [id number] Consulting Physician Endocrinology 12/13/21 Ulices Marino MD #[address] [address] Consulting Physician Colon and Rectal Surgery 07/06/22
--- OUTSIDE RECORDS SUMMARY | 2024-09-18 07:21 | XMS_ITS | Continuity of Care Document ---
Author Organization [facility] Address [address] [place] [address] [address] [place] [address] Phone Care Team Providers Care Qc Tech Name Role Phone Carol OD OD, [...] - Active Procedures Procedure Date OFFICE/OUTPATIENT VISIT, [facility] Comp cont lens eval No Charge Visit N/C Glasses Check Advance Directives Directive Yes / No Effective Date File Name No Information Encounters Encounter Description Practice Location Reason(s) For Visit Diagnoses Date Provider Providers Copied on Encounter [facility], [address] [place] [address] [address], [place], [place], [id number], tel:[phone] [facility] K[facility]RELL LOPE[facility] No Information 3 Carol OD Georgina. [address] [facility], [place], [place], [id number], [place]. tel:[phone] Referring Provider: Georgina Medina OD, [address] [facility] [address], [place], [address] . tel:[phone] OFFICE/OUTPA TIENT VISIT, [facility], [address] [place] [address], [id number], tel:[phone] [facility]OPE[facility] blurry vision (chief complaint) dry eye (chief complaint) Krystin's thyroiditisMyo roger, bilateralTear film insufficiency of bilateral lacrimal glandsOther vitreous opacities, bilateralCorne al neovasculariza tion of both eyes 2 Derheimer OD Georgina. [address], [address] [place] [address], [id number], [place]. tel:[phone] Referring Provider: Scooter White, [address], [place], [address]. tel:[phone] [facility], [address] [place] [address], [id number], tel:[phone] [facility] Services KENTRELL LOPEZ No Information 6 Derheimer OD Georgina. [address], [address] [place] [address], [id number], [place]. tel:[phone] Referring Provider: Georgina Medina OD, [address], [place], [address] . tel:[phone] [facility], [address] [place] [address], [id number], tel:[phone] [facility] K[facility]OPEZ blurry vision (chief complaint) Myopia, bilateral 6 Derheimer OD Georgina. [address], [place], [place], [address], [place]. tel:[phone] Referring Provider: Georgina Medina OD, [address], [place], [address] . tel:[phone] [facility], [address] [place] [address], [id number], tel:[phone] [facility]OPE[facility] No Information 1 Beth Cohenl. [address], [place], [place], [id number], [place]. tel:[phone] Family History Family Member Type Diagnosis Age [...]
--- OUTSIDE RECORDS SUMMARY | 2024-09-18 07:21 | XMS_ITS | Continuity of Care Document ---
Author Organization [facility] Address [address] [facility] [place] [address] [place] [address] Phone Care Team Providers Care Basin Cleaner Name Role Phone Robby Torres MD Unavailable [...] Diagnoses Date Provider Providers Copied on Encounter [facility], [address] [facility] [place], [id number], [place] tel:[phone] [facility] No Information 1 Brian Bustamante. [address], [place], [place], [address] , [place]. tel:[phone] [facility], [address], [place], [place], [address], [place] tel:[phone] [facility] No Information 0 Brian Bustamante. [address], [place], [place], [address] , [place]. tel:[phone] OFFICE/OUTPA TIENT VISIT, [facility], [address], [place], [place], [id number], [place] tel:[phone] [facility] anxiety1 (chief complaint) Generalized Anxiety DisorderHypothyroid ism 0 Brian Bustamante. [address], [place], [place], [id number] , [place]. tel:[phone] Referring Provider: Robby Torres [address], [place], [place], [address]. tel:[phone] OFFICE/OUTPA TIENT VISIT, [facility], [address], [place], [place], [address], [place] tel:[phone] [facility] anxiety1 (chief complaint) Generalized Anxiety DisorderGoiter 0 Brian Bustamante. [address], [place], [place], [address] , [place]. tel:[phone] Referring Provider: Robby Torres [address], [place], [place], [id number]. tel:[phone] OFFICE/OUTPA TIENT VISIT, [facility], [address], [place], [place], [id number], [place] tel:[phone] [facility] thyroid nodule1 (chief complaint) anxiety1 (chief complaint) GoiterGeneralized Anxiety Disorder 0 Brian Menendez [address], [place], [place], [address] , [place]. tel:[phone] Referring Provider: Gissel Banks [address], [place], [place], [id number]. tel:[phone] OFFICE/OUTPA TIENT VISIT, [facility], [address], [place], [place], [id number], [place] tel:[phone] [facility] anxiety1 (chief complaint) iron1 (chief complaint) thyroid1 (chief complaint) Disorder of iron metabolism, unspecifiedGoiterGe neralized Anxiety Disorder Lonnie-0 0 Brian Bustamante. [address], [place], [place], [address] , [place]. [phone] Referring Provider: Gissel Banks [address], [place], [place], [id number]. tel:[phone] OFFICE/OUTPA TIENT VISIT, [facility], [address], [place], [place], [address], [place] tel:[phone] [facility] ankle pain1 (chief complaint) fatigue1 (chief complaint) thyroid1 (chief complaint) anemia1 (chief complaint) Pain in right ankleFatigueAnemiaG oiter 0 Brian Bustamante. [address], [place], [place], [id number] , [place]. tel:[phone] Referring Provider: Gissel Banks [address], [place], [place], [id number]. tel:[phone] OFFICE/OUTPA TIENT VISIT, [facility], [address], [place], [place], [address], [place] tel:[phone] [facility] rash1 (chief complaint) Allergic contact dermatitis due to plants, except food Aug- 0 Brian Bustamante. [address], [address], [place], [place], [address] , [place]. [phone] Referring Provider: Gissel Banks [address], [place], [place], [id number]. tel:[phone] OFFICE/OUTPA TIENT VISIT, [facility], [address], [place], [place], [address], tel:[phone] [facility] thyroid1 (chief complaint) ferritin1 (chief complaint) IgA (chief complaint) fatigue1 (chief complaint) GoiterDisorder of iron metabolism, unspecifiedVitamin D deficiency, unspecifiedRaised level of immunoglobulinAnemi aH. pylori as the cause of diseases classified elsewhereFatigue 0 Brian Bustamante. [address] [facility] [place], [address] , . tel:[phone] Referring Provider: Gissel Banks [place], [place], [id number]. tel:[phone] PREV VISIT, NEW, AGE 18-39 [facility], [address] [place] [address] [employer] [place], [place], [id number], tel:[phone] [facility] PHysical (chief complaint) Encntr for general adult medical exam w/o abnormal findings 0 Brian Bustamante. [address], [facility] [address], [place], [place], [address] , [place]. tel:[phone] Referring Provider: Robby Torres [address] [place] [address], [id number]. tel:[phone] Family History Family Member Type Diagnosis Age [...] Referral Referred To: Jean Carlos BolañosJoe silva [address] [facility]
[address] [place], [place] [address] Ordered: Referrals: Allopathic & Osteopathic Physicians : [...] any dysphagia ankle pain1 Pt was at [employer] and she stepped on gravel [...] or swelling . fatigue1 Pt has mild electrical calibrator mark fatigue Pt had sleep study done [...]
--- OUTSIDE RECORDS SUMMARY | 2024-09-18 07:21 | XMS_ITS | Encounter Summary ---
Author Organization [facility] Address [address] [place] [address] Phone Care Team Providers Care Java Security Architect Name Role Phone Manda Singh MD Unavailable [phone] Robby Torres Primary Care Provider [phone] cSooter White DO Primary Care Provider Malik Cates MD Unavailable Ulices Marino MD Unavailable Yon Gutierrez MD Primary Care Provider Encounter Details Date Type Department Care Team (Late st Contact Info) Description 04/09/2020 Telephone [facility] [address] [address] [address] Saud Dalton MD [address] [place] [address] Social History Tobacco Use Types Packs/Day [...] COVID-19? No / Unsure 03/20/2020 6:06 AM EQUAL OPPORTUNITY REPRESENTATIVE documented as of this encounter Miscellaneous Notes * Telephone Encounter - Mahnaz Alaniz - 04/09/2020 2:50 PM CST Patient no showed her appointment, left voice message to call the office to reschedule. Sent out a no show letter. L OPPORTUNITY REPRESENTATIVE documented in this encounter Plan of Treatment Upcoming Encounters Date Type Department Care Team (Late st Contact Info) Description 09/26/2024 1:00 PM CDT Office Visit [facility] - Neu[facility] [address] [place] [address] Georgina Fontenot APRN, TUBE MOLDER FIBERGLASS [address] [place] [address] documented as of this encounter Visit Diagnoses Not on filedocumented in this encounter Additional Health Concerns Assessment Noted Time PHQ-9 Depression Total Score: 0 02/11/20 20 12:57 PM CDT documented as of this encounter Care Teams Java Security Architect Relationship Specialty Start Date End Date Robby Torres [address] [place] [address] PCP - General Family Medicine 02/11/20 03/16/21 Scooter White DO [facility] [facility] [place] [address] PCP - General Internal Medicine 03/17/21 06/22/23 Yon Gutierrez MD 2 [facility] [address] [place] [address] PCP - General Family Medicine 06/23/23 Manda Singh MD Obstetrics & Gynecology 02/11/20 Malik Cates MD #[address] [address] Consulting Physician Endocrinology 12/13/21 Ulices Marino MD #[address] [address] Consulting Physician Colon and Rectal Surgery 07/06/22 documented as of this encounter
--- NOTE | 2024-10-14 21:38 | PM.OBTRLD ---
OB - Triage/Final Diagnosis Visit Information Comments/Additional reasons for admission: I have assessed the risk for this patient, Yessica Mo, and determined that she would benefit from observation care. Final Diagnosis (1) Spotting: Code(s): N92.0 - Excessive and frequent menstruation with regular cycle Status: Acute
== END 2024-09-17 22:23 | disposition home or self-care (01) ==
PROVIDERS: Admitting Provider Obstetrics & Gynecology; PCP Advanced Practice Midwife; Visit Provider Obstetrics & Gynecology
DX: O26.852 Spotting complicating pregnancy, second trimester (principal); Z3A.26 26 weeks gestation of pregnancy
CPT/HCPCS: 59025; 99199

== ENCOUNTER 2024-10-16 09:52 | Outpatient (RCR) | payer OTHER, SELFPAY ==
[2024-10-16 11:28] VITALS: BMI 38.5
== END 2025-01-13 12:08 | disposition home or self-care (01) ==
LOC: ANHDMC 09:52
PROVIDERS: PCP Advanced Practice Midwife; Visit Provider Advanced Practice Midwife
DX: O24.410 Gestational diabetes mellitus in pregnancy, diet controlled (principal); Z71.3 Dietary counseling and surveillance; Z3A.00 Weeks of gestation of pregnancy not specified
CPT/HCPCS: 97802

== ENCOUNTER 2024-10-28 14:19 | Observation (INO) | payer OTHER, SELFPAY ==
[2024-10-28 14:30] VITALS: BMI 39.9
[2024-10-28 15:42] VITALS: BP 124/77; PULSE 100
[2024-10-28] MEDS: METOCLOPRAMIDE HCL 10 MG TABLET PO (17:31)
[2024-10-28 17:33] VITALS: BP 124/70; PULSE 104
--- NOTE | 2024-10-29 12:07 | PM.OBTRLD ---
OB - Triage/Final Diagnosis Visit Information Comments/Additional reasons for admission: I have assessed the risk for this patient, Yessica Mo, and determined that she would benefit from observation care. Evaluation Vital signs: Vital Signs - 24 hr 10/28/24 14:30 10/28/24 15:42 10/28/24 17:33 Pulse Rate 100 104 H Blood Pressure 124/77 124/70 Oxygen Delivery Room Air Final Diagnosis (1) Headache: Code(s): R51.9 - Headache, unspecified Status: Acute
== END 2024-10-28 17:53 | disposition home or self-care (01) ==
PROVIDERS: Admitting Provider Obstetrics & Gynecology; Visit Provider Obstetrics & Gynecology
DX: O26.893 Other specified pregnancy related conditions, third trimester (principal); R51.9 Headache, unspecified; Z3A.32 32 weeks gestation of pregnancy
CPT/HCPCS: A9270; G0378; G0379

== ENCOUNTER 2024-10-30 12:13 | Observation (INO) | payer OTHER, SELFPAY ==
[2024-10-30] VITALS (32 sets, daily range): BP systolic 115–135; BP diastolic 68–112; PULSE 91–116; RESP 18; TEMP 36.4; O2SAT 98–100; BMI 39.6
[2024-10-30 12:49] LABS: Glucose Point of Care 78 mg/dl (65-105)
[2024-10-30] MEDS: ACETAMINOPHEN 500 MG TABLET 1000 MG PO (13:28)
[2024-10-30 13:45] LABS: Basophils Percent Auto 0.3 % (0.2-1.2); Eosinophils Absolute Auto 0.1 K/mm3 (0-0.3); Eosinophils Percent Auto 0.6 % (0-4.4); Hematocrit 34.7 % (37.0-47.0); Hemoglobin 11.6 g/dL (12.0-15.0); Immature Granulocyte Absolute 0.13 K/mm3 (0.00-0.031); Immature Granulocyte Percent A 1.1 % (0-0.5); Lymphocytes Absolute Auto 1.42 K/mm3 (0.9-3.2); Lymphocytes Percent Auto 11.9 % (18.3-44.2); Mean Corpuscular HGB Conc 33.4 g/dl (32-36); Mean Corpuscular Hemoglobin 28.9 pg (26-34); Mean Corpuscular Volume 86.5 fl (80-100); Mean Platelet Volume 10.2 fl (7.4-10.4); Monocytes Absolute Auto 0.9 K/mm3 (0.1-0.6); Monocytes Percent Auto 7.7 % (2.6-8.5); Neutrophils Absolute Auto 9.3 K/mm3 (1.3-6.7); Neutrophils Percent Auto 78.4 % (45.5-73.1); Platelet Count Result 236 k/mm3 (150-375); Red Blood Count 4.01 M/mm3 (4.2-5.4); Red Cell Distribution Width 12.6 % (11.5-14.5); White Blood Count 11.9 K/mm3 (4.5-10.0)
[2024-10-30 13:56] LABS: Alanine Aminotransferase 13 U/L (6-35); Albumin Level 3.4 g/dL (3.5-5.1); Alkaline Phosphatase 123 U/L (38-126); Anion Gap 6 mmol/L (4-12); Aspartate Amino Transferase 24 U/L (14-36); Bilirubin,Total 0.5 mg/dL (0.2-1.3); Calcium 8.8 mg/dL (8.4-10.2); Carbon Dioxide 21 mmol/L (22-30); Chloride 108 mmol/L (98-107); Estimated Glomerular Filt Rate > 60; Glucose 80 mg/dL (65-110); Potassium 3.8 mmol/L (3.4-5.0); Sodium 135 mmol/L (137-145); Total Protein 6.9 g/dL (6.3-8.2)
[2024-10-30 14:07] LABS: Blood Urea Nitrogen < 2 mg/dL (7-17)
[2024-10-30 14:09] LABS: Add Urine Microscopic? YES; Appearance Urine Clear (Clear); Bacteria Urine 1+ /hpf; Bilirubin Urine Negative (Negative); Blood Urine 1+ (Negative); Color Urine Yellow (Yellow); Glucose Urine UA Negative (Negative); Ketones Urine 1+ mg/dL (Negative); Leukocyte Esterase Ur Negative LEU/UL (Negative); Nitrate Urine Negative (Negative); Non Pathogenic Casts 0-2; Protein Urine Negative (Negative); RBC Urine 51-100 /hpf (0-2); Specific Grav Ur 1.011 (1.001-1.035); Squamous Epithelial Cell Urine Occasional /hpf (Few); WBC Urine 0-5 /hpf (0-3)
[2024-10-30 15:01] LABS: Glucose Point of Care 74 mg/dl (65-105)
--- NOTE | 2024-10-31 15:17 | PM.OBTRLD ---
OB - Triage/Final Diagnosis Visit Information Date of evaluation: 10/30/24 Reason for evaluation: threatened labor Comments/Additional reasons for admission: I have assessed the risk for this patient, Yessica Mo, and determined that she would benefit from observation care. Evaluation Laboratory results: Laboratory Tests 10/30/24 10/30/24 10/30/24 12:45 13:36 14:48 WBC 11.9 H RBC 4.01 L Hgb 11.6 L Hct 34.7 L MCV 86.5 MCH 28.9 MCHC 33.4 RDW 12.6 Plt Count 236 MPV 10.2 Immature Gran % (Auto) 1.1 H Neut % (Auto) 78.4 H Lymph % (Auto) 11.9 L [place] % (Auto) 7.7 Eos % (Auto) 0.6 Baso % (Auto) 0.3 Lymph # (Auto) 1.42 [place] # (Auto) 0.9 H Eos # (Auto) 0.1 Baso # (Auto) 0.0 Abs Immat Gran (auto) 0.13 H Absolute Neuts (auto) 9.3 H Absolute Nucleated RBC 0.000 Nucleated RBC % 0.0 Sodium 135 L Potassium 3.8 Chloride 108 H Carbon Dioxide 21 L Anion Gap 6 BUN < 2 L Creatinine 0.43 L Estim Creat Clear Calc Not Reportable Estimated GFR > 60 Glucose 80 POC Capillary Glucose 78 74 Calcium 8.8 Total Bilirubin 0.5 AST 24 ALT 13 Alkaline Phosphatase 123 Total Protein 6.9 Albumin 3.4 L Urine Color Yellow Urine Appearance Clear Urine pH 7.0 Ur Specific [place] 1.011 Urine Protein Negative Urine Glucose (UA) Negative Urine Ketones 1+ H Ur Blood (Man) 1+ H Urine Nitrate Negative Urine Bilirubin Negative Urine Urobilinogen 1.0 Leukocyte Esterase Rfl Negative Urine RBC 51-100 H Urine WBC 0-5 Ur Squamous Epith Cells Occasional Urine Bacteria 1+ H Urine Casts 0-2
== END 2024-10-30 14:59 | disposition home or self-care (01) ==
PROVIDERS: Advanced Practice Midwife; Admitting Provider Obstetrics & Gynecology; Visit Provider Obstetrics & Gynecology
DX: O47.03 False labor before 37 completed weeks of gestation, third trimester (principal); Z3A.32 32 weeks gestation of pregnancy
CPT/HCPCS: 36415; 80053; 81001; 82948; 85025; A9270; G0378; G0379

== ENCOUNTER 2024-10-31 22:15 | Observation (INO) | payer OTHER, SELFPAY ==
--- OUTSIDE RECORDS SUMMARY | 2022-11-23 04:58 | XMS_ITS | Continuity of Care Document ---
Author Organization [facility] Address [address] [place] [address] [address] [place] [address] Phone Care Team Providers Care Fur Blower Operator Name Role Phone Carol OD OD, Georgina Unavailable Unavai lable Allergies, Adverse Reactions, Alerts Substance Reaction Status Criticality No Known Allergies Active No Inform ation Medications Medication Instructions Dosage Effective Dates (start - stop) Status Comments amoxicillin 500 mg capsule take 1 capsule by oral route every 12 hours 500 MG - Active (unknown strength) Not Available - Active baby aspirin (unknown strength) Not Available - Active PROGESTERONE (unknown strength) inject 0.1 milliliter by intramuscular route every day Not Available - Active Procedures Procedure Date OFFICE/OUTPATIENT VISIT, [facility] Comp cont lens eval No Charge Visit N/C Glasses Check Advance Directives Directive Yes / No Effective Date File Name No Information Encounters Encounter Description Practice Location Reason(s) For Visit Diagnoses Date Provider Providers Copied on Encounter [facility], [address] [place] [address] [address], [place], [place], [id number], tel:[phone] O[facility] CONSULT KENTRELL LOPEZ No Information 3 Carol OD Georgina. [address] [facility], [address], [place], [place], [id number], [place]. tel:[phone] Referring Provider: Georgina Medina OD, [address] [facility] [address], [place], [address] . tel:[phone] OFFICE/OUTPA TIENT VISIT, [facility], [address] [place] [address], [id number], tel:[phone] OPH CONSULT KENTRELL LOPEZ blurry vision (chief complaint) dry eye (chief complaint) Krystin's thyroiditisMyo roger, bilateralTear film insufficiency of bilateral lacrimal glandsOther vitreous opacities, bilateralCorne al neovasculariza tion of both eyes 2 Derheimer OD Georgina. [address], [address] [place] [address], [id number], [place]. tel:[phone] Referring Provider: Scooter White, [address], [place], [address]. tel:[phone] [facility], [address] [place] [address], [id number], tel:[phone] [facility] KENTRELL LOPEZ No Information 6 Derheimer OD Georgina. [address], [address] [place] [address], [id number], [place]. tel:[phone] Referring Provider: Georgina Medina OD, [address], [place], [address] . tel:[phone] [facility], [address] [place] [address], [id number], tel:[phone] OPH CONSULT KENTRELL LOPEZ blurry vision (chief complaint) Myopia, bilateral 6 Derheimer OD Georgina. [address], [address], [place], [place], [id number], [place]. tel:[phone] Referring Provider: Georgina Medina OD, [address], [place], [address] . tel:[phone] [facility], [address] [place] [address], [id number], tel:[phone] OPH CONSULT KENTRELL LOPEZ No Information 1 Beth Cohenl. [address], [address], [place], [place], [id number], [place]. tel:[phone] Family History Family Member Type Diagnosis Age At Onset Problem No family history of Diabete s mellitus Problem No family history of Macular degeneration Problem No family history of Hyperte nsion Problem No family history of Glaucom a Payers Payer name Insurance type Covered libertarian ID Authoriza tion(s) No Information Social History Type Description Quantity Date Captured Comments Alcohol Use Details Unknown Caffeine Use Details Unknown Tobacco Use Status No Information Smoking Status No Information Sex Female Chief Complaint And Reason For Visit No Information Reason For Referral Reason For Referral No Information History Of Present Illness Encounter Date Complaint History Of Prese nt Illness blurry vision The 26 year old female presents for evaluation of blurry vision OU. Patient states she has noticed vision getting blurrier since she has last been since. Patient would like updated clrx and updated glasses rx while she is here. Patient recently dx with Krystin's and wants to know how that will affect her eyes/vision. dry eye The patient is p resent for evaluation of dry eye OU. Patient has noticed OU are more dry lately. Uses contact solution to keep at bay and seems to help somewhat. blurry vision The 20 year old female presents for evaluation of blurry vision in the right eye and left eye. patient believes needs stronger rx. 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 Related to Myopia, bilateral Follow up - Return i n 1 year with Georgina Medina, OD for Complete Exam / Contacts. Related to Myopia, bilateral Impression/Plan - Ne w glasses and CL Rx given. Related to Myopia, bilateral Assessments Type Assessment Date No Information Patient Care Teams Name Effective Dates (start - stop) Status Members No Information
[2024-10-31] VITALS (39 sets, daily range): BP systolic 116–145; BP diastolic 64–88; PULSE 97–136; RESP 16; TEMP 37.2; O2SAT 96–100; BMI 39.6
[2024-10-31] MEDS: TERBUTALINE SULFATE 1 MG/ML VIAL 0.25 MG SUB-Q (22:10)
[2024-10-31] MEDS: NIFEdipine 30 MG TAB.ER.24 60 MG PO (23:00)
[2024-10-31 23:03] LABS: Basophils Absolute Auto 0.1 K/mm3 (0.0-0.1); Basophils Percent Auto 0.4 % (0.2-1.2); Eosinophils Absolute Auto 0.1 K/mm3 (0-0.3); Eosinophils Percent Auto 0.6 % (0-4.4); Hematocrit 32.8 % (37.0-47.0); Immature Granulocyte Absolute 0.13 K/mm3 (0.00-0.031); Lymphocytes Absolute Auto 2.32 K/mm3 (0.9-3.2); Mean Corpuscular HGB Conc 33.5 g/dl (32-36); Mean Corpuscular Hemoglobin 28.9 pg (26-34); Mean Corpuscular Volume 86.3 fl (80-100); Mean Platelet Volume 9.9 fl (7.4-10.4); Monocytes Absolute Auto 1.1 K/mm3 (0.1-0.6); Monocytes Percent Auto 8.2 % (2.6-8.5); Neutrophils Absolute Auto 9.3 K/mm3 (1.3-6.7); Neutrophils Percent Auto 71.8 % (45.5-73.1); Platelet Count Result 222 k/mm3 (150-375); Red Cell Distribution Width 12.7 % (11.5-14.5); White Blood Count 12.9 K/mm3 (4.5-10.0)
[2024-10-31 23:09] LABS: Creatinine Urine 96.8 mg/dL; Total Protein Urine Random 6 mg/dL; Ur Ttl Prot Creatinine Ratio 0.06 mg/mg (0-0.20)
[2024-10-31 23:13] LABS: Alanine Aminotransferase 15 U/L (6-35); Albumin Level 3.5 g/dL (3.5-5.1); Alkaline Phosphatase 127 U/L (38-126); Anion Gap 9 mmol/L (4-12); Aspartate Amino Transferase 24 U/L (14-36); Bilirubin,Total 0.5 mg/dL (0.2-1.3); Blood Urea Nitrogen 4 mg/dL (7-17); Calcium 9.1 mg/dL (8.4-10.2); Carbon Dioxide 19 mmol/L (22-30); Chloride 108 mmol/L (98-107); Estimated CRCL calculation 179 ml/min; Estimated Glomerular Filt Rate > 60; Glucose 98 mg/dL (65-110); Potassium 3.4 mmol/L (3.4-5.0); Sodium 136 mmol/L (137-145); Total Protein 6.8 g/dL (6.3-8.2); Uric Acid 4.4 mg/dL (2.5-7.5)
[2024-10-31 23:15] LABS: Add Urine Microscopic? YES; Appearance Urine Clear (Clear); Bacteria Urine None Seen /hpf; Bilirubin Urine Negative (Negative); Blood Urine Trace (Negative); Color Urine Yellow (Yellow); Glucose Urine UA Negative (Negative); Ketones Urine 2+ mg/dL (Negative); Leukocyte Esterase Ur Trace LEU/UL (Negative); Nitrate Urine Negative (Negative); Non Pathogenic Casts 0-2; Protein Urine Negative (Negative); Specific Grav Ur 1.017 (1.001-1.035); Squamous Epithelial Cell Urine None Seen /hpf (Few); WBC Urine 0-5 /hpf (0-3)
[2024-10-31 23:27] LABS: Mucus Urine Present /lpf
[2024-11-01] VITALS (98 sets, daily range): BP systolic 112–147; BP diastolic 69–89; PULSE 71–129; O2SAT 87–100
[2024-11-01 06:05] LABS: Glucose Point of Care 82 mg/dl (65-105)
--- NOTE | 2024-11-01 07:30 | PM.IMHP ---
H&P: HPI History of Present Illness Date/Time: 11/01/24 07:30 Chief Complaint: at 33.1 weeks gestation, di/di twins, pt admitted overnight for observation for contractions. cervix remained unchanged from office exam, but pt was uncomfortable and given 2 doses of terbutaline and procardia [address] redding. contractions are now rare and pt is feeling much more comfortable. FHR category 1 x 2 Review of Systems Review of Systems: All systems reviewed & are unremarkable except as noted in HPI and below PMFSH Past Medical History Medical History HTN (hypertension) Hx of hemorrhoids Wears glasses History of adverse reaction to anesthesia GERD (gastroesophageal reflux disease) Acute hemorrhoid Anxiety Hypothyroid Surgical History Surgical History History of ovarian cystectomy H/O tubal ligation History of lumpectomy Hx of cholecystectomy History of appendectomy Family History Family History Father Hypertension Mother Alcoholism Thyroid disorder Grandparent Breast cancer Hypertension Thyroid disorder Lung cancer Social History Social History Smoking status: Never smoker Substance use: never Substance use type: does not use Do You Feel Safe in your Home?: Yes Lack of Transportation: No Lack of Food: Never True Current Housing: I Have Housing Concerned About Future Housing: No Difficulty Paying Gas/Electric Bills: No Difficulty Paying for Meds: No Currently Unemployed: No Education: Associate Degree Difficulty w/ Childcare or Family Care: No Living arrangements: with family Gender identity (if verbalized by the patient): Female Spiritual care concerns: No Meds Home Medications and Allergies Home Medications ?Medication ?Instructions ?Recorded ?Confirmed ?Type pantoprazole 40 mg tablet,delayed mg PO 08/08/24 History release cyclobenzaprine 5 mg tablet mg 10/31/24 History vit 115-iron fum 29 mg tablet 10/31/24 History iron-folic acid 1 mg-dss 25 mg tablet Allergies Allergy/AdvReac Type Severity Reaction Status Date / Time prednisone Allergy Intermediate Hives Verified 09/02/24 21:26 Vital Signs Vital Signs - 24 hr 10/31/24 21:21 10/31/24 21:26 10/31/24 21:30 Temperature 37.2 C Pulse Rate 98 Respiratory Rate 16 Blood Pressure 142/83 H Pulse Oximetry 98 97 Oxygen Delivery 10/31/24 21:31 10/31/24 21:36 10/31/24 21:41 Temperature Pulse Rate Respiratory Rate Blood Pressure Pulse Oximetry 97 97 98 Oxygen Delivery 10/31/24 21:45 10/31/24 21:46 10/31/24 21:51 Temperature Pulse Rate 103 H Respiratory Rate Blood Pressure 138/86 Pulse Oximetry 99 98 Oxygen Delivery 10/31/24 21:56 10/31/24 22:00 10/31/24 22:01 Temperature Pulse Rate 106 H Respiratory Rate Blood Pressure 145/81 H Pulse Oximetry 98 99 Oxygen Delivery 10/31/24 22:06 10/31/24 22:11 10/31/24 22:15 Temperature Pulse Rate 115 H Respiratory Rate Blood Pressure 137/67 Pulse Oximetry 99 99 Oxygen Delivery 10/31/24 22:15 10/31/24 22:16 10/31/24 22:21 Temperature Pulse Rate Respiratory Rate Blood Pressure Pulse Oximetry 99 99 Oxygen Delivery Room Air 10/31/24 22:26 10/31/24 22:30 10/31/24 22:30 Temperature Pulse Rate 125 H Respiratory Rate Blood Pressure 127/64 Pulse Oximetry 98 98 Oxygen Delivery 10/31/24 22:31 10/31/24 22:36 10/31/24 22:41 Temperature Pulse Rate Respiratory Rate Blood Pressure Pulse Oximetry 99 100 99 Oxygen Delivery 10/31/24 22:52 10/31/24 22:57 10/31/24 23:00 Temperature Pulse Rate 113 H Respiratory Rate Blood Pressure 116/85 Pulse Oximetry 98 99 Oxygen Delivery 10/31/24 23:02 10/31/24 23:07 10/31/24 23:12 Temperature Pulse Rate Respiratory Rate Blood Pressure Pulse Oximetry 99 99 99 Oxygen Delivery 10/31/24 23:15 10/31/24 23:17 10/31/24 23:22 Temperature Pulse Rate 117 H Respiratory Rate Blood Pressure 137/81 Pulse Oximetry 99 98 Oxygen Delivery 10/31/24 23:27 10/31/24 23:30 10/31/24 23:32 Temperature Pulse Rate 118 H Respiratory Rate Blood Pressure 136/88 Pulse Oximetry 100 99 Oxygen Delivery 10/31/24 23:37 10/31/24 23:42 10/31/24 23:45 Temperature Pulse Rate 129 H Respiratory Rate Blood Pressure 126/66 Pulse Oximetry 98 96 Oxygen Delivery 10/31/24 23:52 10/31/24 23:57 11/01/24 00:00 Temperature Pulse Rate 125 H Respiratory Rate Blood Pressure 144/82 H Pulse Oximetry 99 98 Oxygen Delivery 11/01/24 00:02 11/01/24 00:07 11/01/24 00:12 Temperature Pulse Rate Respiratory Rate Blood Pressure Pulse Oximetry 99 99 99 Oxygen Delivery 11/01/24 00:15 11/01/24 00:17 11/01/24 00:22 Temperature Pulse Rate 114 H Respiratory Rate Blood Pressure 143/80 H Pulse Oximetry 97 98 Oxygen Delivery 11/01/24 00:27 11/01/24 00:30 11/01/24 00:32 Temperature Pulse Rate 121 H Respiratory Rate Blood Pressure 147/85 H Pulse Oximetry 96 98 Oxygen Delivery 11/01/24 00:37 11/01/24 00:53 11/01/24 00:55 Temperature Pulse Rate Respiratory Rate Blood Pressure Pulse Oximetry 96 98 98 Oxygen Delivery 11/01/24 01:00 11/01/24 01:01 11/01/24 01:05 Temperature Pulse Rate 109 H Respiratory Rate Blood Pressure 128/80 Pulse Oximetry 98 97 Oxygen Delivery 11/01/24 01:10 11/01/24 01:11 11/01/24 01:16 Temperature Pulse Rate Respiratory Rate Blood Pressure Pulse Oximetry 97 97 98 Oxygen Delivery 11/01/24 01:21 11/01/24 01:26 11/01/24 01:30 Temperature Pulse Rate 110 H Respiratory Rate Blood Pressure 138/76 Pulse Oximetry 98 98 Oxygen Delivery 11/01/24 01:31 11/01/24 01:36 11/01/24 01:41 Temperature Pulse Rate Respiratory Rate Blood Pressure Pulse Oximetry 98 97 95 Oxygen Delivery 11/01/24 01:44 11/01/24 01:45 11/01/24 01:50 Temperature Pulse Rate Respiratory Rate Blood Pressure Pulse Oximetry 98 98 98 Oxygen Delivery 11/01/24 01:55 11/01/24 02:00 11/01/24 02:01 Temperature Pulse Rate 116 H Respiratory Rate Blood Pressure 121/84 Pulse Oximetry 99 95 Oxygen Delivery 11/01/24 02:05 11/01/24 02:10 11/01/24 02:15 Temperature Pulse Rate Respiratory Rate Blood Pressure Pulse Oximetry 97 99 98 Oxygen Delivery 11/01/24 02:20 11/01/24 02:25 11/01/24 02:30 Temperature Pulse Rate Respiratory Rate Blood Pressure Pulse Oximetry 97 100 100 Oxygen Delivery 11/01/24 02:31 11/01/24 02:36 11/01/24 02:41 Temperature Pulse Rate 120 H Respiratory Rate Blood Pressure 112/69 Pulse Oximetry 99 98 Oxygen Delivery 11/01/24 02:46 11/01/24 02:51 11/01/24 02:56 Temperature Pulse Rate Respiratory Rate Blood Pressure Pulse Oximetry 98 98 98 Oxygen Delivery 11/01/24 03:01 11/01/24 03:06 11/01/24 03:11 Temperature Pulse Rate Respiratory Rate Blood Pressure Pulse Oximetry 98 99 100 Oxygen Delivery 11/01/24 03:16 11/01/24 03:21 11/01/24 03:26 Temperature Pulse Rate Respiratory Rate Blood Pressure Pulse Oximetry 87 L 94 99 Oxygen Delivery 11/01/24 03:31 11/01/24 03:36 11/01/24 03:41 Temperature Pulse Rate Respiratory Rate Blood Pressure Pulse Oximetry 95 95 97 Oxygen Delivery 11/01/24 03:46 11/01/24 03:51 11/01/24 03:56 Temperature Pulse Rate Respiratory Rate Blood Pressure Pulse Oximetry 96 96 94 Oxygen Delivery 11/01/24 04:01 11/01/24 04:06 11/01/24 04:11 Temperature Pulse Rate 92 Respiratory Rate Blood Pressure 140/84 Pulse Oximetry 99 97 95 Oxygen Delivery 11/01/24 04:16 11/01/24 04:21 11/01/24 04:26 Temperature Pulse Rate Respiratory Rate Blood Pressure Pulse Oximetry 98 99 98 Oxygen Delivery 11/01/24 04:31 11/01/24 04:36 11/01/24 04:41 Temperature Pulse Rate 91 Respiratory Rate Blood Pressure 133/75 Pulse Oximetry 99 99 96 Oxygen Delivery 11/01/24 04:46 11/01/24 04:51 11/01/24 04:56 Temperature Pulse Rate Respiratory Rate Blood Pressure Pulse Oximetry 97 95 94 Oxygen Delivery 11/01/24 05:01 11/01/24 05:06 11/01/24 05:11 Temperature Pulse Rate 95 Respiratory Rate Blood Pressure 135/81 Pulse Oximetry 96 99 97 Oxygen Delivery 11/01/24 05:16 11/01/24 05:21 11/01/24 05:26 Temperature Pulse Rate Respiratory Rate Blood Pressure Pulse Oximetry 95 98 98 Oxygen Delivery 11/01/24 05:33 11/01/24 05:38 11/01/24 05:43 Temperature Pulse Rate Respiratory Rate Blood Pressure Pulse Oximetry 100 100 98 Oxygen Delivery 11/01/24 05:48 11/01/24 05:53 11/01/24 05:58 Temperature Pulse Rate Respiratory Rate Blood Pressure Pulse Oximetry 99 100 96 Oxygen Delivery 11/01/24 06:01 11/01/24 06:02 11/01/24 06:07 Temperature Pulse Rate 110 H Respiratory Rate Blood Pressure 133/79 Pulse Oximetry 99 97 Oxygen Delivery 11/01/24 06:12 11/01/24 06:17 11/01/24 06:22 Temperature Pulse Rate Respiratory Rate Blood Pressure Pulse Oximetry 97 99 99 Oxygen Delivery 11/01/24 06:27 11/01/24 06:31 11/01/24 06:35 Temperature Pulse Rate 110 H Respiratory Rate Blood Pressure 132/89 Pulse Oximetry 98 100 Oxygen Delivery 11/01/24 06:40 11/01/24 06:45 11/01/24 06:50 Temperature Pulse Rate Respiratory Rate Blood Pressure Pulse Oximetry 98 99 99 Oxygen Delivery 11/01/24 06:55 11/01/24 07:00 11/01/24 07:05 Temperature Pulse Rate Respiratory Rate Blood Pressure Pulse Oximetry 99 99 99 Oxygen Delivery 11/01/24 07:10 11/01/24 07:15 11/01/24 07:20 Temperature Pulse Rate Respiratory Rate Blood Pressure Pulse Oximetry 99 99 99 Oxygen Delivery 11/01/24 07:25 Temperature Pulse Rate Respiratory Rate Blood Pressure Pulse Oximetry 100 Oxygen Delivery Exam Const: General: cooperative, healthy appearing and comfortable Chest: Chest palpation & inspection: normal inspection of the chest Resp: Effort & Inspection: normal respiratory effort GI: Other: gravid/soft Back/Spine/Pelvis: Back: no CVA tenderness Skin: General skin exam: normal color H&P: Results Labs Labs: Short CBC 10/31/24 Range/Units 22:46 WBC 12.9 H (4.5-10.0) K/mm3 Hgb 11.0 L (12.0-15.0) g/dL Hct 32.8 L (37.0-47.0) % Plt Count 222 (150-375) k/mm3 BMP 10/31/24 22:46 Sodium 136 L Potassium 3.4 Chloride 108 H Carbon Dioxide 19 L BUN 4 L Creatinine 0.46 L Glucose 98 Calcium 9.1 Liver Function 10/31/24 Range/Units 22:46 Total Bilirubin 0.5 (0.2-1.3) mg/dL AST 24 (14-36) U/L ALT 15 (6-35) U/L Alkaline Phosphatase 127 H (38-126) U/L Albumin 3.5 (3.5-5.1) g/dL Urine 10/31/24 Range/Units 22:46 Urine Color Yellow (Yellow) Urine Appearance Clear (Clear) Urine pH 7.0 (5.0-9.0) Ur Specific [place] 1.017 (1.001-1.035) Urine Protein Negative (Negative) mg/dL Urine Glucose (UA) Negative (Negative) mg/dL Assessment and Plan Assessment and plan (1) Uterine cramping: Code(s): N94.89 - Other specified conditions associated with female genital organs and menstrual cycle Status: Acute Plan d/c home with procardia 60mg XL daily f/u in office next week precautions reviewed co-managing with dr. redding
--- NOTE | 2024-11-05 07:20 | P.PNOB_ITS ---
OB - Triage/Final Diagnosis Visit Information Date of evaluation: 11/01/24 Reason for evaluation: threatened labor Comments/Additional reasons for admission: I have assessed the risk for this patient, Yessica Mo, and determined that she would benefit from observation care. Evaluation Laboratory results: Laboratory Tests 10/31/24 11/01/24 22:46 06:01 WBC 12.9 H RBC 3.80 L Hgb 11.0 L Hct 32.8 L MCV 86.3 MCH 28.9 MCHC 33.5 RDW 12.7 Plt Count 222 MPV 9.9 Immature Gran % (Auto) 1.0 H Neut % (Auto) 71.8 Lymph % (Auto) 18.0 L Crawford % (Auto) 8.2 Eos % (Auto) 0.6 Baso % (Auto) 0.4 Lymph # (Auto) 2.32 Crawford # (Auto) 1.1 H Eos # (Auto) 0.1 Baso # (Auto) 0.1 Abs Immat Gran (auto) 0.13 H Absolute Neuts (auto) 9.3 H Absolute Nucleated RBC 0.000 Nucleated RBC % 0.0 Sodium 136 L Potassium 3.4 Chloride 108 H Carbon Dioxide 19 L Anion Gap 9 BUN 4 L Creatinine 0.46 L Estim Creat Clear Calc 179 Estimated GFR > 60 Glucose 98 POC Capillary Glucose 82 Uric Acid 4.4 Calcium 9.1 Total Bilirubin 0.5 AST 24 ALT 15 Alkaline Phosphatase 127 H Total Protein 6.8 Albumin 3.5 Urine Color Yellow Urine Appearance Clear Urine pH 7.0 Ur Specific [place] 1.017 Urine Protein Negative Urine Glucose (UA) Negative Urine Ketones 2+ H Ur Blood (Man) Trace Urine Nitrate Negative Urine Bilirubin Negative Urine Urobilinogen 1.0 Leukocyte Esterase Rfl Trace H Urine RBC 11-20 H Urine WBC 0-5 Ur Squamous Epith Cells None seen Urine Bacteria None seen Urine Casts 0-2 Urine Mucus Present U Random Total Protein 6 Urine Creatinine 96.8 Protein/Creat Ratio 2 0.06
--- OUTSIDE RECORDS SUMMARY | 2025-01-29 16:55 | XMS_ITS | Encounter Summary ---
Author Organization [facility] Address [address] [place] [address] Phone Care Team Providers Care Web Merchandiser Name Role Phone Manda Singh MD Unavailable [phone] Robby Torres Primary Care Provider [phone] Scooter White DO Primary Care Provider Malik Cates MD Unavailable Ulices Marino MD Unavailable Yon Gutierrez MD Primary Care Provider Georgina Fontenot APRN, [facility] Unavailable [phone] Encounter Details Date Type Department Care Team (Late st Contact Info) Description 04/09/2020 Telephone [facility] [address] [address] [address] Saud Dalton MD [address] [place] [phone] Social History Tobacco Use Types Packs/Day [...] COVID-19? No / Unsure 03/20/2020 6:06 AM PROFESSOR OF BIOSTATISTICS documented as of this encounter Miscellaneous Notes * Telephone Encounter - Mahnaz Alaniz - 04/09/2020 2:50 PM CST Patient no showed her appointment, left voice message to call the office to reschedule. Sent out a no show letter. ESSOR OF BIOSTATISTICS documented in this encounter Plan of Treatment Not on file documented as of this encounter Visit Diagnoses Not on filedocumented in this encounter Additional Health Concerns Assessment Noted Time PHQ-9 Depression Total Score: 0 02/11/20 20 12:57 PM CDT documented as of this encounter Care Teams Web Merchandiser Relationship Specialty Start Date End Date Robby Torres [address] [place] [address] PCP - General Family Medicine 02/11/20 03/16/21 Scooter White DO [address] [place] [address] [place] [address] PCP - General Internal Medicine 03/17/21 06/22/23 Yon Gutierrez MD [address] [place] [address] [address] PCP - General Family Medicine 06/23/23 Manda Singh MD Obstetrics & Gynecology 02/11/20 Malik Cates MD #[address] [address] Consulting Physician Endocrinology 12/13/21 Ulices Marino MD #[address] [address] Consulting Physician Colon and Rectal Surgery 07/06/22 Georgina Fontenot APRN, STRIKE OFF MACHINE OPERATOR [address] [place] [address] Nurse Practitioner Advanced Practice Nurse 09/25/24 documented as of this encounter
--- OUTSIDE RECORDS SUMMARY | 2025-01-29 16:55 | XMS_ITS | Encounter Summary ---
Author Organization [facility] Address [address] [place] [address] Phone Care Team Providers Care Automation Control Integrator Name Role Phone Manda Singh MD Unavailable [phone] Scooter White DO Primary Care Provider Malik Cates MD Unavailable Ulices Marino MD Unavailable Yon Gutierrez MD Primary Care Provider Georgina Fontenot APRN, MLT Unavailable [phone] Encounter Details Date Type Department Care Team (Late st Contact Info) Description 07/26/2021 [facility] [address] [place] [address] Edita Garza, TRUNG, FACILITY ATTENDANT [address] [place] [address] Encounter for pre-employment examination Social [...] 07/26/2021 2:15 PM CDT Narrative [facility] - 07/26/2021 10:00 PM CDT <= 0.8 Negative. No detectable VZV IgG antibody. 0.9 - 1.0 Equivocal >=1.1 Positive Antibody testing was performed by multiplex flow immunoassay on the BioPlex platform. Edita L Behrends RECORDS MANAGEMENT COORDINATOR, FACILITY ATTENDANT IMMUNOLOGY ORDERABL ES Final Result Performing Organization Address [facility] de Phone Number [facility] [address] [place] [address], [place] * (ABNORMAL) RUBEOLA (MEASLES) IGG (07/26/2021 9:00 AM CDT) MEASLES AB IGG 0.7(L) >=1.1 AI 07/26/2021 10:00 PM CDT [facility] Blood No Phlebotomy Charged / Unknown 07/26/2021 9:00 AM CDT 07/26/2021 2:15 PM CDT Narrative [facility] - 07/26/2021 10:00 PM CDT <= 0.8 Negative. No detectable Measles IgG antibody. 0.9 - 1.0 Equivocal >=1.1 Positive Antibody testing was performed by multiplex flow immunoassay on the BioPlex platform. Edita L Behrends RECORDS MANAGEMENT COORDINATOR, FACILITY ATTENDANT IMMUNOLOGY ORDERABL ES Final Result Performing Organization Address [facility] de Phone Number [facility] [address] [place] [address], [place] * RUBELLA IMMUNITY IGG (07/26/2021 9:00 AM CDT) RUBELLA IMMUNITY Immune Immune, Invalid 07/26/2021 10:00 PM CDT [facility] Blood No Phlebotomy Charged / Unknown 07/26/2021 9:00 AM CDT 07/26/2021 2:15 PM CDT Narrative [facility] - 07/26/2021 10:00 PM CDT Antibody testing was performed by multiplex flow immunoassay on the BioPlex platform. us Edita Garza RECORDS MANAGEMENT COORDINATOR, FACILITY ATTENDANT CHEMISTRY ORDERABLE S Final Result Performing Organization Address [facility] Co de Phone Number [facility] [address] [place] [address], [place] * MUMPS IGG (07/26/2021 9:00 AM CDT) Mumps Ab IgG 1.2 >=1.1 AI 07/26/2021 10:00 PM CDT [facility] Blood No Phlebotomy Charged / Unknown 07/26/2021 9:00 AM CDT 07/26/2021 2:15 PM CDT Narrative [facility] - 07/26/2021 10:00 PM CDT <= 0.8 Negative. No detectable Mumps IgG antibody. 0.9 - 1.0 Equivocal >=1.1 Positive Antibody testing was performed by multiplex flow immunoassay on the BioPlex platform. us Edita Garza RECORDS MANAGEMENT COORDINATOR, FACILITY ATTENDANT IMMUNOLOGY ORDERABL ES Final Result Performing Organization Address [facility] Co de Phone Number [facility] [address] [place] [address], [place] * QUANTIFERON-TB GOLD PLUS (07/26/2021 9:00 AM CDT) NIL CONTROL 0.04 <8.01 IU/mL 07/28/2021 1:01 PM CDT [facility] TB ANTIGEN 1 0.00 <0.35 IU/mL 07/28/2021 1:01 PM CDT [facility] TB ANTIGEN 2 0.00 <0.35 IU/mL 07/28/2021 1:01 PM CDT [facility] MITOGEN CONTROL 9.64 >0.49 IU/mL 07/29/19 1:01 PM CDT [facility] INTEPRETATION TB NEGATIVE NEGATIVE, NEGATIVE (TB antigen response less than 25% of internal negative control value) 07/28/2021 1:01 PM CDT [facility] Comment:No immune response t o Mycobacterium tuberculosis antigens was noted. M. tuberculosis infection unlikely. Blood No Phlebotomy Charged / Unknown 07/26/2021 9:00 AM CDT 07/26/2021 2:15 PM CDT Narrative [facility] - 07/28/2021 1:01 PM CDT [...] immunocompromised individuals. https://www.cdc.gov/tb/publications/guidelines/testing.htm us Edita L Behrends RECORDS MANAGEMENT COORDINATOR, FACILITY ATTENDANT IMMUNOLOGY ORDERABL ES Final Result Performing Organization Address [facility] Co de Phone Number [facility] [address] [place] [address], [place] * HEPATITIS B SURFACE ANTIBODY (HBSAB) (07/26/2021 9:00 AM CDT) HEPATITIS B SURFACE ANTIBODY 8.33 mIU/mL [facility] [id number] B 07/27/2021 12:02 AM CDT [facility] Comment: Grayzone Range: >=8.00 to <=12.00 The immune status of the individual should be further assessed considering other factors, such as clinical status, follow-up testing, associated risk factors and the use of additional diagnostic information. Blood No Phlebotomy Charged / Unknown 07/26/2021 9:00 AM CDT 07/26/2021 2:15 PM CDT us Edita Garza RECORDS MANAGEMENT COORDINATOR, FACILITY ATTENDANT CHEMISTRY ORDERABLE S Final Result Performing Organization Address [facility] Co de Phone Number [facility] [address] [place] [address], [place] documented in this encounter Visit Diagnoses Diagnosis Encounter for pre-employment examination Health examination of defined subpopulation documented in this encounter Additional Health Concerns Assessment Noted Time PHQ-9 Depression Total Score: 0 02/11/20 20 12:57 PM CDT documented as of this encounter Care Teams Automation Control Integrator Relationship Specialty Start Date End Date Scooter White DO [address] [place] [address] [place] [address] PCP - General Internal Medicine 03/17/21 06/22/23 Yon Gutierrez MD [address] [place] [address] [address] PCP - General Family Medicine 06/23/23 Manda Singh MD Obstetrics & Gynecology 02/11/20 Malik Cates MD #[address] [address] Consulting Physician Endocrinology 12/13/21 Ulices Marino MD #[address] [address] Consulting Physician Colon and Rectal Surgery 07/06/22 Georgnia Fontenot APRN, MLT [address] [place] [address] Nurse Practitioner Advanced Practice Nurse 09/25/24 documented as of this encounter
--- OUTSIDE RECORDS SUMMARY | 2025-01-29 16:55 | XMS_ITS | Encounter Summary ---
Author Organization [facility] Address [address] [place] [address] Care Team Providers Care Cushion Filler Name Role Phone Scooter White DO Primary Care Provider Encounter Details Date Type Department Care Team (Late st Contact Info) Description 11/06/2018 Lab Requisition [facility] Care Pathology Lab [address] [place] [address] Cindi Hererra MD [address] [place] [address] Enlarged lymph nodes Social History Tobacco Use Types Packs/Day Years Used Date Smoking Tobacco: Never Smokeless Tobacco: Never Alcohol Use Standard Drinks/Week Comments No 0 (1 standard drink = 0.6 oz pur e alcohol) Comments No Sex and Gender Information Value Date Recorded Sex Assigned at Not on file Legal Sex Female 1: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 - See interpretation. 9 5:[address] [facility] at 1733 CDT Flow [...] cytometry specimen is reviewed for lead quality technician purposes. In summary, the left cervical lymph node specimen shows no evidence of a non-Hodgkin lymphoma. Correlation with additional clinical information and the concurrent biopsy specimen is required. KR 9 5:[address] [facility] Flow Cytometry Results Differential Result Comment Flow Cell Count /uL [id number] Total Viability % 86.0 Lymphocytes % 97 Dim CD45 Region % 0 Monocytes % 1 Granulocytes % 1 9 5:[address] [facility] Reason for test Enlarged lymph nodes 785.6 9 5:[address] [facility] Client Specimen ID # [id number] 9 5:[address] [facility] Number of markers 16 were performed. A Flow CD3 A Flow CD10 A Flow CD20 A Flow CD23 A Flow CD2 A Flow CD4 A Flow CD1a A Flow CD5 A Flow CD19 A Flow CD34 A Flow CD45 A Flow CD7 A Flow CD8 A Flow CD30 A [place]+CD19+ A Lambda+CD19+ 9 5:[address] [facility] Disclaimer Test performed at [facility], [address] [place], [place], [address]. *The established laboratory minimum viability is 70%. [...] complexity clinical testing. 9 5:33 PM CDT [facility] Embedded Images 9 5:33 PM CDT [facility] Pathology/Cytolo gy ENTIRE CERVICAL LYMPH NODE / Unknown 11/05/2018 11:02 AM CDT 11/06/2018 2:01 PM CDT Cindi Herrera MD LAB - PATHOLOGY/CYTOLOGY ORDERA BLE Final Result [facility] [address] [facility] [place] [address], [facility] [phone] documented in this encounter Visit Diagnoses Diagnosis Enlarged lymph nodes Enlargement of lymph nodes documented in this encounter Care Teams Cushion Filler Relationship Specialty Start Date End Date Scooter White DO PCP - General 03/16/22 documented as of this encounter
--- OUTSIDE RECORDS SUMMARY | 2025-01-29 16:55 | XMS_ITS | Encounter Summary ---
Author Organization [facility] Address [address] [place] [address] Phone Care Team Providers Care Stapling Machine Operator Name Role Phone Manda Singh MD Unavailable [phone] Robby Torres Primary Care Provider [phone] Scooter White DO Primary Care Provider Malik Cates MD Unavailable Ulices Marino MD Unavailable Yon Gutierrez MD Primary Care Provider Georgina Fontenot APRN, [facility] Unavailable [phone] Encounter Details Date Type Department Care Team (Late st Contact Info) Description 03/09/2020 [facility] [address] [place] [address] Walter Blake MD [address] [place] [address] Preop testing (Primary Dx) Social History Tobacco [...] COVID-19? Unable to assess 03/10/2020 1:32 PM CUT OFF [employer] documented as of this encounter Plan of Treatment Not on file documented as of this encounter Visit Diagnoses Diagnosis Preop testing- Primary Preoperative examination, unspecified documented in this encounter Additional Health Concerns Infection Onset Date Last Indicated Resolved Time COVID - 19 03/10/2020 03/10/2020 03/16/2020 11:4 0 AM CUT OFF [employer] Assessment Noted Time PHQ-9 Depression Total Score: 0 02/11/20 20 12:57 PM CDT documented as of this encounter Care Teams Stapling Machine Operator Relationship Specialty Start Date End Date Robby Torres [address] [place] [address] PCP - General Family Medicine 02/11/20 03/16/21 Scooter White DO [facility] [place] [address] PCP - General Internal Medicine 03/17/21 06/22/23 Yon Gutierrez MD [address] [facility] , [facility] [address] [place] [address] PCP - General Family Medicine 06/23/23 Manda Singh MD Obstetrics & Gynecology 02/11/20 Malik Cates MD [address]2 [facility] [address] [place] [address] Consulting Physician Endocrinology 12/13/21 Ulices Marino MD [address] [address] Consulting Physician Colon and Rectal Surgery 07/06/22 Georgina Fontenot APRN, GLASS MECHANIC [address] [place] [address] Nurse Practitioner Advanced Practice Nurse 09/25/24 documented as of this encounter
--- OUTSIDE RECORDS SUMMARY | 2025-01-29 16:55 | XMS_ITS | Encounter Summary ---
Author Organization [facility] Healthcare Address [address] [place] [address] Care Team Providers Care Plate Gauger Name Role Phone Robby Torres MD Unavailable [phone] Yon Gutierrez MD Primary Care Provider Malik Cates MD Unavailable Cindi Bryant SALES INSPECTOR Unavailable [phone] Sakshi Biggs DO Unavailable [phone] Encounter Details Date Type Department Care Team (Late st Contact Info) Description 12/31/2024 Results Follow-Up [facility] Emergency Department [address] [place] [address] Michael Morris MD [address] [place] [address] Urine culture Urine Social History Tobacco Use Types Packs/Day Years Used Date Smoking Tobacco: Former Cigarettes Smokeless Tobacco: Never Alcohol Use Standard Drinks/Week [...] making you feel afraid or unsafe? 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 Gender Identity Not on file Sexual Orientation Not on file documented as of this encounter Plan of Treatment Not on file documented as of this encounter Visit Diagnoses Not on filedocumented in this encounter Care Teams Plate Gauger Relationship Specialty Start Date End Date Yon Gutierrez MD PCP - General Family Medicine 04/04/23 Robby Torres MD Referring Physician Family Medicine 08/22/19 Malik Cates MD [address] [address] Referring Physician General Surgery 05/26/23 Cindi Bryant NP [address] [place] [address] Nurse Practitioner Obstetrics and Gynecology 05/26/23 Sakshi Biggs DO [address] [facility] [address] NATALY Hui [address] [address] Consulting Physician Otolaryngology 05/26/23 documented as of this encounter
--- OUTSIDE RECORDS SUMMARY | 2025-01-29 16:55 | XMS_ITS | Clinical Summary ---
Author Organization [facility] [employer] [facility] Address [address] [facility], [facility] [address] [place] [address] Phone Care Team Providers Care Crm Marketing Executive Name Role Phone Manda Singh MD Unavailable [phone] Malik Cates MD Unavailable Ulices Marino MD Unavailable Yon Gutierrez MD Primary Care Provider Georgina Fontenot EDGE SAWYER, APARTMENT MAINTENANCE SUPERVISOR Unavailable [phone] Allergies Active Allergy Reactions Criticality Noted Date [...] 97.5 kg (215 lb) 04/19/2023 8:07 AM COMIC WRITER Height 165.1 cm (5' 5) 04/19/2023 8:07 AM COMIC WRITER Body Mass Index 35.78 04/19/2023 8:07 AM COMIC WRITER Plan of Treatment Health Maintenance Due Date Last Done Comments Hepatitis C Virus (HCV) Screening 1993 Pap Smear 2014 Hepatitis B Immunization (2 of 3 - 19+ 3-dose series) 11/11/2019 10/14/2019 Human Papillomavirus (HPV) Immunization (1 - 3-dose SCDM series) 01/07/2020 Cervical Cancer Screening (CCS) 2023 HPV/Cotest 2023 Influenza Immunization (#1) 01/06/202501/06, 01/24/2020, 01/24/2020 SARS-COV-2 Immunization ( season) 2025 08/06/2021, 07/16/2021 Td Immunization Every 10 Yea rs (Adults [...] this topic Medical Devices Implanted Type Area Agriculture Research Director Device Identifier Shelf Expiration Date Model / Serial / Lot Tube Ventilation 5mm Carey Triune - [id number] Implanted:Qty: 1 on 11/05/2018 by J[facility]eng [facility] at [facility] IMPLANT Left: Ear [employer] 04/06/2020 510-122 / [id number] / [id number] Description:Ear tubes came f rom the same package Tube Ventilation 5mm Carey Triune - [id number] Implanted:Qty: 1 on 11/05/2018 by Jordon Deng MD at [facility] IMPLANT Right: Ear [employer] 04/06/2020 510-122 / [id number] / [id number] Description:Ear tubes came f rom the same package Insurance * Guarantor: [facility] Account Type Relation to Patient Date of Phone Billing Address Institutional Other [address] [place] [address] Care Teams Crm Marketing Executive Relationship Specialty Start Date End Date Yon Gutierrez MD [address] [address] PCP - General Family Medicine 06/23/23 Manda Singh MD Obstetrics & Gynecology 02/11/20 Malik Cates MD [address] [phone] Consulting Physician Endocrinology 12/13/21 Ulices Marino MD [address] [address] Consulting Physician Colon and Rectal Surgery 07/06/22 Georgina Fontenot, EDGE SAWYER, APARTMENT MAINTENANCE SUPERVISOR [address] [place] [address] Nurse Practitioner Advanced Practice Nurse 09/25/24
--- OUTSIDE RECORDS SUMMARY | 2025-01-29 16:55 | XMS_ITS | Clinical Summary ---
Author Organization [facility] [employer] Address [address] [place] [address] Care Team Providers Care Administrator Health Care Facility Name Role Phone Scooter White DO Primary Care Provider [phone] Source Comments [facility],non-owned Affiliates and Associated Physician Practices is amultiple site organization consisting of ambulatory clinics and hospital sitesin [place], [place], [place] and [place]. This disclosure is being madepursuant to the Care Everywhere program and may not contain all information available regarding this patient. 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 Gender Identity Not on file Sexual [...] VACCINE (1 - 3-dose SCDM series) 01/07/2020 DEPRESSION SCREENING 05/08/2024 OB-ONE HOUR GLUCOSE 09/08/2024 OB-TDAP CURRENT 09/15/2024 10/10/2019 OB-RHOGAM INJECTION 09/22/2024 OB-GROUP B STREP SCREEN 11/10/2024 COVID-19 VACCINE (3 - 2024-2 6 season) 2025 08/06/2021, 07/16/2021 INFLUENZA VACCINE (#1) 2025 01/24/2020 ZOSTER VACCINE [...] over 60 yrs (No Doses Required) Completed Insurance [employer] Member Subscriber Plan / Payer (Ef fective 2021-Present) Name:Yessica Mo Relation to Subscriber:Spouse Name:SOLO MO Date of :1987 (Home) Address: [address] [place] [address] Payer ID:[id number] (NAIC) Type:PPO Address: [address] HEALTH CARE SELF PAY NO INSURANCE Member Subscriber Plan / Payer (Ef fective for All Dates) Name:Yessica Mo Member ID:Not on file Relation to Subscriber:Not on file Name:YESSICA MO Subscriber ID:Not on file (Home) Address: [address] [place] [address] Payer ID:Not on file Group ID:Not on file Type:Self Pay Address: [place], [place] Care Teams Administrator Health Care Facility Relationship Specialty Start Date End Date Scooter White DO PCP - General 03/16/22
--- OUTSIDE RECORDS SUMMARY | 2025-01-29 16:56 | XMS_ITS | Data Portability ---
Author Organization [facility] [place] Address [address] [place] [address] [place] [address] Care Team Providers Care Global [employer] Head Name Role Phone [facility] EDUIN HAMMONDS [employer] JILLIAN LAO Primary Care Provider Assessment No assessment recorded. Plan of Treatment Reminders Order Date Submit Date Provider Last Modified By Organization Details Last Modified Time Details Appointments MED CHECK 2024 03:30P Kezia Bryant CNM Not available Not available Not available Lab None recorded. Referral None recorded. Procedures None recorded. Surgeries None recorded. Imaging US, pelvis 2024 025 [place], [address], [place], [address], 01/07/2025 18:33:59 US, transvagi nal 2024 025 [email or web address] [place], [address], [place], [address], 01/07/2025 18:33:59 non-stres s test 2024 025 [email or web address] [place], [address], [place], [address], 11/21/2024 23:22:39 US, obstetric , biophysic al profile + non-stres s test 2024 025 [email or web address] [place], [place], [address], 11/20/2024 15:46:37 US, obstetric , biophysic al profile + non-stres s test 2024 025 [facility], [address], [place], [address], 11/20/2024 16:51:34 Medication Orders sertralin e 25 mg tablet 2024 025 [place] [facility] #[id number], [address], [place], [place], [id number], 01/03/2025 11:56:31 buspirone 5 mg tablet 2024 025 [place] [facility][id number], [address], [place], [place], [id number], 01/03/2025 11:56:28 valacyclo vir 500 mg tablet 2024 025 [id number], [address], [place], [place], [id number], 12/16/2024 05:01:16 cyclobenz aprine 10 mg tablet 2024 025 [place] [facility] #[id number], [address], [place], [place], [id number], 12/04/2024 16:10:37 cyclobenz aprine 10 mg tablet 2024 025 [place] [facility] #[id number], [address], [place], [place], [id number], 12/04/2024 16:10:36 Patient TargetsNo targets recorded. Patient InstructionsNo instructions recorded. Reason for Referral None Reported. Results Created Date Observation Date Name Description Value Unit Range Abnormal Flag Note LastModifiedBy Organization Detail LastModifiedTime 11/14/19 25 11/13/2024 CULTU RE: GROUP B STREP SCREE N, REFLE X SUSCE PTIBI LITY result report SEE RESULT S BELOW abnormal Test: Cultu re: Group B Strep , Refle x Susce ptibi lity ([facility]/ [facility] ) Speci men Sourc e: Vagin a/Rec gregoria Speci men Type: Vagin al/Re ctal Speci men Date: 025 1620 Resul t Date: 2024 1418 Resul t Statu s: Final resul t Abnor mal: Yes Resul ting Lab: [facility] [address] [facility] [address] Tel: CULTU RE ----- ----- ----- --- [...] antonio for these drugs . Not Available [facility] (Lab) [address], [place], [address], 11/18/2024 15:22:25 10/23/19 25 10/22/2024 US, obste tric, follo w-up No observ ation record ed. [email or web address] [place] [address], [place], [address], 10/22/2024 17:16:15 10/23/19 25 10/22/2024 US, obste tric, follo w-up No observ ation record ed. [email or web address] [place] [address], [place], [address], 10/22/2024 17:16:31 10/23/1910/22/2024 US, ayo holley, follo w-up No observ ation record ed. LANA [address], [place], [address], 10/29/2024 21:52:03 10/27/19 25 10/23/2024 non-s tress test No observ ation record ed. [place] [address], [place], [address], 10/26/2024 08:57:06 10/29/1910/23/2024 non-s tress test No observ ation record ed. [place] [address], [place], [address], 10/28/2024 11:44:35 10/31/19 25 10/30/2024 , ayo tric, bioph ysica l profi le + non-s tress test No observ ation record ed. [email or web address] [place] [address], [place], [address], 10/30/2024 13:28:58 10/31/19 25 10/30/2024 US, aoy holley, bioph ysica l profi le + non-s tress test No observ ation record ed. [email or web address] [place] [address], [place], [address], 10/30/2024 13:29:11 10/31/19 25 10/30/2024 US, ayo holley, follo w-up No observ ation record ed. Pam[address], [place], [address], 10/31/2024 18:00:31 11/07/19 25 11/06/2024 US, obste tric, bioph ysica l profi le + non-s tress test No observ ation record ed. [email or web address] [place] [address], [place], [address], 11/06/2024 17:48:20 11/07/19 25 11/06/2024 US, obste tric, bioph ysica l profi le + non-s tress test No observ ation record ed. [email or web address] [place] [address], [place], [address], 11/06/2024 17:48:32 11/07/19 25 11/06/2024 non-s tress test No observ ation record ed. [email or web address] [place] [address], [place], [address], 11/06/2024 17:22:40 11/07/19 25 11/06/2024 US, obste tric, bioph ysica l profi le + non-s tress test No observ ation record ed. [email or web address] [address], [place], [address], 11/11/2024 12:03:01 11/10/19 25 11/09/2024 non-s tress test No observ ation record ed. [email or web address], [place], [address], 11/30/2024 11:06:18 11/13/19 25 11/12/2024 non-s tress test No observ ation record ed. [email or web address] [place] [address], [place], [address], 11/19/2024 08:29:48 11/14/19 25 11/13/2024 non-s tress test No observ ation record ed. [email or web address] [place] [address], [place], [address], 11/14/2024 14:45:58 11/14/1911/13/2024 US, obste tric, follo w-up No observ ation record ed. [email or web address] [place] [address], [place], [address], 11/13/2024 18:14:47 11/14/19 25 11/13/2024 US, obste tric, bioph ysica l profi le + non-s tress test No observ ation record ed. [email or web address] [place] [address], [place], [address], 11/13/2024 18:14:56 11/14/19 25 11/13/2024 US, obste tric, bioph ysica l profi le + non-s tress test No observ ation record ed. [email or web address] [place] [address], [place], [address], 11/13/2024 18:15:06 11/14/1911/13/2024 US, obste tric, follo w-up No observ ation record ed. [email or web address] [place] [address], [place], [address], 11/13/2024 18:15:15 11/14/1911/13/2024 non-s tress test No observ ation record ed. [email or web address] [place] [address], [place], [address], 11/13/2024 15:40:45 11/14/1911/13/2024 US, obste tric, follo w-up No observ ation record ed. LANA [address], [place], [address], 11/17/2024 13:32:08 11/18/19 11/17/2024 non-s tress test No observ ation record ed. [address], [place], [address], 11/23/2024 15:05:43 11/21/19 25 11/20/2024 US, obste tric, bioph ysica l profi le + non-s tress test No observ ation record ed. [email or web address] [place] [address], [place], [address], 11/20/2024 16:51:23 11/21/19 25 11/20/2024 US, obste tric, bioph ysica l profi le + non-s tress test No observ ation record ed. [email or web address] [place] [address], [place], [address], 11/20/2024 16:51:34 11/21/19 25 11/20/2024 US, obste tric, bioph ysica l profi le + non-s tress test No observ ation record ed. [email or web address] [address] [facility], [place], [address], 11/20/2024 16:50:41 11/22/19 25 11/21/2024 non-s tress test No observ ation record ed. [email or web address] [place] [address], [place], [address], 11/21/2024 17:10:50 11/22/19 25 11/19/2024 US, obste tric, bioph ysica l profi le No observ ation record ed. [address] [facility], [place], [address], 11/23/2024 14:28:58 11/22/19 25 11/21/2024 US, obste tric, bioph ysica l profi le No observ ation record ed. [address], [place], [address], 11/23/2024 14:28:31 11/23/1911/21/2024 non-s tress test No observ ation record ed. [email or web address] [address], [place], [address], 12/12/2024 09:24:29 11/26/1911/25/2024 non-s tress test No observ ation record ed. [email or web address] [place] [address] [facility] [address], [place], [address], 11/28/2024 12:57:21 01/08/2001/07/2025 imagi ng/di agnos tic resul t No observ ation record ed. LANA Santiago [address], [place], [address], 01/22/2025 04:15:16 01/08/20 25 01/07/2025 US, pelvi s No observ ation record ed. [email or web address] [place] [address], [place], [address], 01/07/2025 14:10:41 01/08/20 25 01/07/2025 US, trans vagin al No observ ation record ed. [email or web address] [place] [address], [place], [address], 01/07/2025 14:10:57 Result Notes None recorded. 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 3 15:14:45 Hypothyr oidism 00236722 Completed Eli moreno [facility] 3 15:14:45 Antenata l care: history of infertil ity 223508128 Completed Eli alvarado null, [facility] 3 15:14:46 Group B Streptoc occus carrier 9641322010 103 Completed bacteriu berta Eli alvarado null, [facility] 3 15:14:45 Maternal obesity complica ting pregnanc y, childbir th and the puerperi um, antepart um 9430082655 07 Completed BMI 39- ante testing at 37w Eli alvarado null, [facility] 3 15:14:46 Chronic hyperten allison in obstetri c context 6577972 Completed procardi a , baseline labs, ASA Eli alvarado null, [facility] 3 15:14:46 Placenta circumva llata 4632900 Completed Serial growth u/s Eli alvarado null, [facility] 3 15:14:45 Pre-ecla mpsia 795677491 Completed Eli alvarado [facility], [facility] 3 15:14:45 Twin pregnanc y 60985537 Completed 38 wk delivery antenata l testing @ 32wks per [facility] Schedule d rpt 08/27 us ONLY Tabatha moreno, [facility] 5 12:20:16 Antenata l care: history of infertil ity 112346039 Completed Peter Bryant, [place] [address], [place], [address], [place] [facility] 5 13:48:37 Past pregnanc y history of pre-ecla mpsia 0433438975 23467 Completed bASA x2 Tabatha moreno, [facility] 5 17:10:40 Large for gestatio n age fetus 000096532 Completed less then 30 sec shoulder dystocia Peter Bryant CNM [address], [place], [address], [facility] 5 13:51:09 Past pregnanc y history of shoulder dystocia 954548869 Completed Peter Bryant CNM [address], [place], [address], [facility] 5 13:52:04 Chronic hyperten allison in obstetri c context 2381708 Completed Peter Bryant CNM [address], [place], [address], [facility] 5 13:52:55 Palpitat ions 64425044 Completed Holter monitor faxed to [facility] nt Cardiolo gy 3 Tabatha Green null, [facility] 5 14:05:23 Palpitat ions 48241262 Active Holter monitor faxed to [facility] nt Cardiolo gy 324 Tabatha Green null, [facility] 5 14:05:23 Migraine 55323018 Completed magnesiu m, Excedrin tension, sumatrip tatum Tabatha Green null, [facility] 17:11:50 Migraine 16196292 Active magnesiu m, Excedrin tension, sumatrip tatum Tabatha Green null, [facility] 17:11:50 Finding of general energy 312865227 Completed 201807/28/2020 Fatigue; Recorded Elsewher e: No Locat ion: Chaya arevalo [facility] S ource: EHR Literacy Tutor mark: N Practi ce ID: 0001 Emmanuel lable Time: 10:45:00 AM Messi Garcia MD [address], [place], [address], [facility] 1 15:00:00 Acute vaginiti s 79161958 Completed 201807/28/2020 Vaginiti s;Record ed Elsewher e: No [facility] S ource: EHR Literacy Tutor mark: N Practi ce ID: [id number] Emmanuel lable Time: 10:45:00 AM Messi Garcia MD [address], [place], [address], [facility] 1 15:00:04 Removal of intraute rine device Completed 201807/28/2020 Encounte r for removal of IUD;Earl rded Elsewher e: No Locat ion: Chaya arevalo [facility] S ource: EHR Literacy Tutor mark: N Practi ce ID: [id number] Emmanuel lable Time: 10:45:00 AM Messi Garcia MD [address], [place], [address], [facility] 1 15:00:08 Pregnanc y 51133764 Completed 202106/09/2022 Pretty moreno, [facility] 5 15:51:40 Abnormal cervical Papanico laou smear 539557456 Active 2023 3 lgsil HPV high risk 1 ascus HPV high risk Kenyetta moreno, [facility] 4 11:59:57 Herpes simplex 10467194 Active 2024 Kenyetta moreno, [facility] 5 16:40:53 Human papillom a virus infectio n 824133608 Active 2024 Kenyetta moreno, [facility] 5 16:40:59 Endometr iosis (clinica l) 270314857 Active 2024 Kenyetta moreno, [facility] 5 16:41:22 Pregnanc y 96966859 Completed 202412/04/2024 Pretty Werner tiffanie, [facility] 15:51:40 Glucose toleranc e test outside referenc e range 326134688 Active 2024 checking blood sugars for 2 week instead for doing 3 hour Kenyetta moreno [facility] 17:53:21 Glucose toleranc e test outside referenc e range 938431762 Completed 2024 5 checking blood sugars for 2 week instead for doing 3 hour Kenyetta moreno, [facility] 17:53:21 Gestatio nal diabetes mellitus 03531053 Completed 2024 Kenyetta moreno [facility] 11:47:25 Gestatio nal diabetes mellitus 63337410 Active 2024 Kenyetta moreno [facility] 11:47:25 Problem Notes None recorded. Procedures Surgical History Date Name Laterality Status Provider Name and Address Organization Details Recorded Time 024 Laparoscopy completed Kenyetta Solano [facility] 05/10/2024 16:42:07 024 Date of Last Pap Smear completed Kenyetta Solano [facility] 08/16/2023 12:00:08 024 procedure on ear completed Kenyetta Solano [facility] 08/16/2023 12:01:09 023 Colposcopy completed Peter Bryant CNM [address], [place], [address], [facility] 06/15/2022 16:59:00 023 Colposcopy completed Kenyetta Solano [facility] 06/15/2022 16:38:21 023 Colposcopy completed Kenyetta Solano [facility] 06/15/2022 16:38:49 022 intrauterine artificial insemination completed [facility] 06/26/2021 09:20:58 021 intrauterine artificial insemination completed [facility] 06/17/2021 12:15:01 021 intrauterine artificial insemination completed [facility] 06/17/2021 12:14:55 021 intrauterine artificial insemination completed [facility] 06/17/2021 12:14:45 021 intrauterine artificial insemination completed [facility] 06/17/2021 12:14:39 021 LAPAROSCOPY, DIAGNOSTIC (SURG) completed [facility] 08/19/2020 14:04:12 020 completed [facility] 10/01/2020 16:23:53 020 Colonoscopy completed [facility] 01/22/2021 10:59:09 019 procedure on neck completed [facility] 12/25/2019 11:25:51 019 hemorrhoidectomy completed [facility] 12/25/2019 11:24:57 016 cholecystectomy completed [facility] 07/16/2021 17:21:15 010 Appendectomy completed Kenyetta Solano [facility] 12/25/2019 11:24:44 Imaging Results None recorded. Procedure Notes None recorded. Medical Equipment None Reported. Allergies Allergen ID Allergen Name Allergen Category Reaction Reaction Severity Criticality Documentation Date Start Date Code Code System Note Provider Name and Address Organization Details Recorded Time 53381 prednison e medicatio n hives Not available Not available 07/03/2024 8640 RxNorm Peter Bryant, [place] [address], [place], [address] [place] [address], [facility] 5 09:52:22 Medications Name Sig Start [...] Not Available Not Available Not Available buspirone 5 mg tablet TAKE 1 TABLET BY MOUTH TWICE DAILY active Not Available Not Available No t Available levothyro xine 137 mcg tablet TAKE [...] Pregnyl 10,000 unit intramusc ular solution Inject 05736 units every day by intramus cular route [...] completed Not Available Not Available Not Available valacyclo vir 500 mg tablet Take 1 tablet twice a day by oral route for 5 days. 12/16 completed Not Available Not Available Not Available sulfameth oxazole 800 mg-trimet hoprim 160 mg tablet TAKE 1 TABLET BY MOUTH TWICE DAILY FOR 3 DAYS 01/03 completed Not Available Not Available Not Available [...] TAKE 1 TABLET BY MOUTH EVERY DAY 01/03 completed Not Available Not Available Not Available nifedipin e 10 mg capsule TAKE 1 CAPSULE BY MOUTH EVERY 6 HOURS NEEDED FOR CONTRACT IONS 01/03 completed Not Available Not Available Not Available [...] TAKE 1 TABLET BY MOUTH EVERY DAY 12/04 completed Not Available Not Available Not Available [...] completed Not Available Not Available Not Available sertralin e 25 mg tablet TAKE 1 TABLET BY MOUTH EVERY DAY active Not Available Not Available No t Available diclofena c sodium 75 mg tablet,de [...] TABLET ON THE TONGUE EVERY 8 HOURS 12/04 completed Not Available Not Available Not Available phentermi ne 37.5 mg capsule 05/02 [...] 2 tablets every day by oral route. 12/04 completed Not Available Not Available Not Available cyclobenz aprine 5 mg tablet TAKE 1 TABLET BY MOUTH THREE TIMES DAILY NEEDED 12/04 completed Not Available Not Available Not Available iron 325 mg (65 mg iron) tablet take 1 tablet by oral route every day 07/02 completed Prescrib jose antonio Cevallos e: Yes Loca tion: [facility] odify By: [email or web address] z Encoun ter [...] Available Not Available Not Available folic acid 12/04 completed Not Available Not Available Not Available iron 12/04 completed Not Available Not Available Not Available Effexor XR 07/28 completed Not Available Not Available Not Available Synthroid 10/21 completed Not Available Not Available Not Available labetalol 01/03 completed Not Available Not Available Not Available buspirone 07/02 completed Not Available Not Available Not Available Xanax 07/02 completed Not Available Not Available Not Available active Not Available Not Avai lable Not Available levocetir izine 5 mg tablet [...] HOUR AFTER EACH MEAL FOUR TIMES DAILY 12/04 completed Not Available Not Available Not Available PreviDent 5000 Booster Plus 1.1 % dental paste USE DIRECTED 11/06 completed Not Available Not Available Not Available OneTouch Verio Flex Meter USE TO CHECK BLOOD SUGAR FASTING IN THE MORNING AND 1 HOUR AFTER EACH MEAL FOUR TIMES DAILY 12/04 completed Not Available Not Available Not Available Novarel 5,000 unit intramusc ular solution Inject 2 units by intramus cular route. 06/26 completed PATIENT GIVEN (2) NOVAREL VAIL INJECTIO N INTO RIGHT HIP LOT [id number] EXP 12/2021 Not Available Not Available Not Available OneTouch Delica Plus Lancet 33 gauge USE TO CHECK BLOOD SUGAR FASTING AND 1 HOUR AFTER EACH MEAL FOUR TIMES DAILY 12/04 completed Not Available Not Available Not Available Slynd [...] Updated DateTime 11/20/2024 161.29 cm 42.4 kg/m2 078329.95 g 133/84 mm[Hg] [facility] 11/20/2024 14:47:38 Date Recorded Body height Body mass index (BMI) Body weight Systolic And Diastolic Provider Name and Address Organization Details Last Updated DateTime 12/04/2024 161.29 cm 35.7 kg/m2 00370.44 g 133/92 mm[Hg] [facility] 12/04/2024 15:50:35 Date Recorded Body height Body mass index (BMI) Body weight Systolic And Diastolic Provider Name and Address Organization Details Last Updated DateTime 01/03/2025 161.29 cm 35.4 kg/m2 32002.25 g 130/72 mm[Hg] [facility] 01/03/2025 11:32:12 Social History Question Answer Notes LastModified by Organizat ion Details LastModified Time Tobacco Smoking Status Never Smoker [email or web address] 06/15/2022 15:31:26 Do You Have An Advance Directive? No Information n ot available 07/28/2020 If You Are , What Was Your Level Of Alcohol Consumption Prior To ? None [email or web address] Information not available 06/15/2022 Are You Blind [...] Type Of Diet Are You Following? REGULAR [email or web address] Information n ot available 08/19/2020 What Is The Highest Grade Or Level Of School You Have Completed Or The Highest Degree You Have Received? [id number] Information not available 07/28/2020 Are There Any Guns Present In Your Home? No Information not available 07/28/2020 What Was The Date Of Your Most Recent Tobacco Screening? 10/23/2024 [email or web address] Information not available 10/23/2024 Have You Ever Been Counseled For Unhealthy Alcohol Use? No Information not available 06/15/2022 Do You Use Protection During Sex? No Information not available 07/28/2020 Do You Use Your Seat Belt Or Car Seat Routinely? Yes Information not available 07/28/2020 Are You Sexually Active? Yes [email or web address] Information not available 12/04/2024 Do You Have Smoke And Carbon Monoxide Detectors In Your Home? Yes Information not available 07/28/2020 How Much Tobacco Do You Smoke? No [email or web address] Information not available 12/25/2019 Do You Use Sunscreen Routinely? Yes Information not available 07/28/2020 Have You Used IV Drugs? No Information not available 07/28/2020 Do You Have Difficulty Walking Or Climbing Stairs? No [email or web address] Information not available 06/15/2022 Sex: Unknown Functional Status Question Answer Note LastModified by Organizat ion Details LastModified Time Do you use any illicit or recreational drugs? No Information not available 07/28/2020 Do you or have you ever used any other forms of tobacco or nicotine? No [email or web address] Information not available 06/15/2022 What is your level of alcohol consumption? Occasional [email or web address] Information not available 12/25/2019 Do you or have you ever used smokeless tobacco? Never used smokeless tobacco [email or web address] Information not available 06/15/2022 Are you able to walk independently without assistance or assistive devices? YESWOREST [email or web address] Information not available 08/19/2020 Are you able to care for yourself independently? Yes Information not available 06/15/2022 What is your occupation? [employer] Information not available 07/28/2020 Do you have difficulty dressing, bathing, grooming, or toileting? No [email or web address] Information not available 06/15/2022 Do you or have you ever used e-cigarettes or vape? Never used electronic cigarettes [email or web address] Information not available 06/15/2022 What is your exercise level? Occasional [email or web address] Information not available 12/25/2019 Mental Status Question Answer Note LastModified by Organization D etails LastModified Time Do you feel stressed (tense, restless, nervous, or anxious, or unable to sleep at night)? [id number] [email or web address] Information not available 08/19/2020 Family History Relationship Description Onset Age of this Age Resolved Age Notes LastModified by Organization Details LastModified Time Maternal Grandmother Disorder of thyroid gland [email or web address] Not available 01/26 16:14:56 Mother Female infertility [email or web address] Not available 08/2024 13:51:15 Mother Disorder of thyroid gland Not available 01/26 16:14:56 Father Malignant tumor of pancreas Not available 2024 13:51:15 Brother Malignant neoplasm of prostate Not available 2024 13:51:15 Paternal Grandmother Malignant tumor of breast [email or web address] Not available 01/26 16:14:56 Paternal Grandmother Malignant neoplasm of lung [email or web address] Not available 01/26 16:14:56 Medical History Condition [...] of Flow (days) 6 Current Control Method None Age at First Child 16 Sexually Active? Y Date of DEXA bone scan Date of Last Pap Smear 08/16/2023 Sexual Problems? N LMP Definite 11/06/2019 N 01/22/2021 Obstetrics History GPAL:G 4 P 5 0 0 5 Type Value Multiple Births 1 Full Term 5 Living 5 Total 4 Past Encounters Encounter ID Performer Location Encounter Start Date Encounter Closed Date Diagnosis/Indication Diagnosis SNOMED-CT Code Diagnosis ICD10 Code Diagnosis IMO Codes Diagnosis Note [id number] Peter Bryant CNM [facility] [address],[place] [address] 12/25/2019 10:57:08 12/25/2019 12:38:39 Breast infection 846538203 N61.0 Trying to conceive 21297 9001 Z31.9 [id number] Messi Garcia MD [facility] [address],[place] [address] 06/30/2020 12:07:39 06/30/2020 12:55:49 Pain in pelvis 20788017 R10.2 [id number] Messi Garcia MD [facility] [address],[place] [address] 1 07/02/2020 12:31:33 07/02/2020 16:54:32 Pain in pelvis 35028929 R10.2 This patient is a 25-year-ol d [...] informed consent process. To check fallopian tubes. [id number] Messi Garcia MD [facility] [address] [address] 07/23/2020 10:07:53 07/23/2020 10:09:56 [id number] Messi Garcia MD [facility] [address] [address] 1 07/28/2020 13:53:59 07/28/2020 15:27:02 Chest pain 92038399 R07.9 this patient is 25-year-ol d female [...] this patient s visit, including available hand certified addiction counselor upon arrive, temperterry e check and being asked a series of screening questions. All staff wore face coverings during this encounter, as well as provided additional cleaning and sanitizing of all surfaces, including countertop s, pens, chairs, door handles, light switches, etc, prior to and following the patient s visit. [id number] Messi Garcia MD [facility] [address] [address] 08/04/2020 14:07:07 08/04/2020 14:50:37 Abnormal uterine bleeding [id number] 9100 N93.9 t his patient is a 25-year-ol d female who [...] ovulation [place]. [id number] Peter Bryant [facility] [address],[place] [address] 08/19/2020 13:46:09 08/19/2020 15:50:34 Trying to conceive [id number] Z31.9 [id number] Messi Garcia MD [facility] [address],[place] [address] 09/02/2020 11:05:51 09/02/2020 12:44:09 Female infertility 9168155 N97.9 [id number] Peter Bryant [facility] [address],[place] [address] 1 09/04/2020 08:09:36 09/04/2020 09:29:50 Artificial insemination 62845939 Z31.83 [id number] Peter Bryant [facility] [address],[place] [address] 1 09/03/2020 18:20:49 09/03/2020 22:54:04 Trying to conceive 125620135 Z31.9 [id number] Messi Garcia MD [facility] [address],[place] [address] 1 09/09/2020 17:51:09 09/09/2020 18:07:37 Pain in pelvis 01091684 R10.2 This patient is a 25-year-ol d [...] informed consent process. To check fallopian tubes. [id number] Messi Garcia MD [facility] [address],[place] [address] 09/22/2020 16:45:48 09/22/2020 17:17:04 Pain in pelvis 00962106 R10.2 This patient is a 25-year-ol d [...] informed consent process. To check fallopian tubes. [id number] Messi Garcia MD [facility] [address],[place] [address] 10/01/2020 14:59:50 10/01/2020 15:16:34 Female infertility 5726818 N97.9 [id number] [facility] [address],[place] [address] 10/01/2020 16:21:54 10/01/2020 16:27:38 Trying to conceive 833304118 Z31.9 [id number] Peter rByant [place] [address],[place] [address] 1 10/02/2020 08:19:49 10/02/2020 09:46:38 Artificial insemination 67677709 Z31.83 [id number] Messi Garcia MD [facility] [address],[place] [address] 1 10/14/2020 15:52:51 10/14/2020 16:51:20 Pain in pelvis 72989243 R10.2 This patient is a 25-year-ol d [...] informed consent process. To check fallopian tubes. [id number] Peter Bryant CNM [facility] [address],[facility] [place] [address] 10/21/2020 17:06:20 10/21/2020 17:33:05 Hypothyroidism 20510580 E03.9 check labs, will adjust meds if needed [id number] Messi Garcia MD [facility] [address] [address] 1 11/30/2020 13:48:01 11/30/2020 13:52:51 Pain in pelvis 25663958 R10.2 This patient is a 25-year-ol d [...] informed consent process. To check fallopian tubes. [id number] Messi Garcia MD [facility] [address],[place] [address] 12/01/2020 14:00:56 12/01/2020 15:31:30 Pain in pelvis 65111592 R10.2 this patient is a 25-year-ol d [...] face-to-fa ce discussing this very complex topic. [id number] Peter Bryant CNM [facility] [address],[place] [address] 01/22/2021 09:15:38 01/22/2021 10:35:42 Female infertility 4837509 N97.9 Gynecologi c examination 78020798 Z01.419 [id number] Messi Garcia MD [facility] [address],[place] [address] 02/09/2021 09:19:46 02/09/2021 10:04:48 Female infertility 4757698 N97.9 [id number] [place] [address] [address] 02/09/2021 14:29:50 02/09/2021 16:50:58 Trying to conceive 927154744 Z31.9 [id number] Peter Bryant [facility] [address],[place] [address] 1 02/10/2021 09:41:42 02/10/2021 10:12:15 Female infertility 1977183 N97.9 Artificial insemination 99863585 Z31.83 [id number] Messi Garcia MD [facility] [address],[place] [address] 1 04/28/2021 14:43:43 04/28/2021 15:19:59 Female infertility 1598097 N97.9 [id number] Peter Bryant [place] [address] [place] [address] 1 04/28/2021 18:59:10 04/29/2021 09:31:07 Trying to conceive 242907291 Z31.9 [id number] [facility] [address],[place] [address] 04/29/2021 09:31:15 04/29/2021 10:19:12 Artificial insemination 71089580 Z31.83 [id number] [facility] [address] [address] 1 05/25/2021 11:53:11 05/25/2021 16:54:31 Reduced libido 6084534 R68.82 Today we discussed trial of Wellbutrin [...] this patient s visit, including available hand certified addiction counselor upon arrive, temperatur e check and being asked a series of screening questions. All staff wore face coverings during this encounter, as well as provided additional cleaning and sanitizing of all surfaces, including countertop s, pens, chairs, door handles, light switches, etc, prior to and following the patient s visit. [id number] Messi Garcia MD [facility] [address] [address] 06/22/2021 14:38:59 06/23/2021 09:16:44 Body mass index 30+ - obesity 624698729 Z68.37 This patient is a 26-year-ol d [...] on the dietitian schedule. Gynecologi c examination 36574711 Z01.419 Abnormal u terine bleeding 4842000273 9100 N93.9 [id number] Messi Garcia MD [facility] [address],[place] [address] 06/25/2021 09:04:11 06/25/2021 09:23:27 Female infertility 8534883 N97.9 [id number] Peter Bryant [facility] [address],[place] [address] 1 06/25/2021 18:38:25 06/26/2021 09:09:27 Trying to conceive 045304217 Z31.9 [id number] Peter Bryant [facility] [address],[place] [address] 1 06/26/2021 09:13:57 07/01/2021 15:54:18 Artificial insemination 79066989 Z31.83 [id number] Messi Garcia MD [facility] [address],[place] [address] 1 07/27/2021 17:11:55 07/27/2021 18:06:16 Uncertain viability of 785166143 O36.80X0 Z3A.01 [id number] MD Rhina Zheng [address],[place] [address] 08/05/2021 09:17:05 08/05/2021 10:16:25 Abdominal pain in early 828850477 Z33.1 Z3A.01 [id number] MD Sakshi [place] [address],[place] [address] 08/18/2021 10:17:54 08/18/2021 11:20:00 [id number] [facility] [address],[place] [address] 08/18/2021 10:18:19 08/19/2021 12:30:57 Amenorrhea 24809914 Z31.89 Z31.83 [id number] Pretty Cotton MD [facility] [address],[place] [address] 09/10/2021 14:50:18 09/10/2021 15:34:33 screening 946436506 Z36.82 [id number] Pretty Cotton MD [facility] [address],[place] [address] 09/10/2021 14:50:57 09/13/2021 15:22:01 Routine care 065079253 Z34.91 care: history of infertility 771218593 O09.[address] reptococcus carrier 8515454430 103 Z22.330 Hypothyroidism 04939019 E03.9 Maternal o besity complicating , childbirth and the puerperium, antepartum 4280241113 07 O99.211 [id number] Pretty Cotton MD [facility] [address],[place] [address] 1 09/27/2021 17:43:48 09/28/2021 10:23:00 Chronic hypertension complicating AND/OR reason for care during 96947687 O16.9 [id number] Pretty Cotton MD [facility] [address],[place] [address] 10/08/2021 14:49:27 10/08/2021 16:16:40 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 3929795 O16.9 care: history of infertility 590956868 O09.01 Hypothyroidism 86285394 E03.9 [id number] Messi Garcia MD [facility] [address],[place] [address] 11/03/2021 16:29:49 11/03/2021 18:37:35 screening 092373358 Z36.3 Z3A.20 [id number] Peter Bryant [facility] [address],[place] [address] 1 11/03/2021 16:30:15 11/03/2021 18:37:10 Routine care 191051890 Z34.91 Anxiety 40589276 F41.9 [id number] Messi Garcia MD [facility] [address],[place] [address] 12/03/2021 15:10:07 12/03/2021 16:20:49 Hypothyroidism 17926470 E03.9 [id number] Messi Garcia MD [facility] [address],[place] [address] 1 12/03/2021 15:10:54 12/03/2021 17:08:45 Placenta circumvallata 8867693 O43.112 Z36.2 Z3A.24 [id number] Messi Garcia MD [facility] [address],[place] [address] 1 12/29/2021 15:21:10 12/29/2021 16:01:38 Placenta circumvallata 5041766 O43.113 O10.013 O99.213 Z3A.28 [id number] Peter Bryant [facility] [address],[place] [address] 1 12/29/2021 15:22:44 12/29/2021 17:01:50 Routine care 711483204 Z34.91 - induced hypertension 08499185 O13.9 [id number] MD Rhina Zheng [address] [address] 1 01/13/2022 13:47:29 01/13/2022 14:39:17 Medical examination for suspected condition 393327433 Z03.79 [id number] MD Rhina Zheng [address],[place] [address] 1 01/13/2022 13:47:50 01/13/2022 15:53:18 Routine care 446887488 Z34.83 [id number] Pretty Cotton MD [facility] [address],[place] [address] 1 01/17/2022 16:24:29 01/17/2022 18:16:59 Threatened premature labor - not delivered 636913554 O47.9 [id number] Pretty Cotton MD [facility] [address],[place] [address] 1 01/17/2022 16:35:15 01/19/2022 15:28:55 Threatened premature labor - not delivered 384207496 O47.9 [id number] Messi Garcia MD [facility] [address],[place] [address] 1 01/26/2022 14:52:57 01/26/2022 15:27:45 Chronic hypertension complicating AND/OR reason for care during 94668292 O16.9 [id number] Messi Garcia MD [facility] [address],[place] [address] 1 01/26/2022 14:54:57 01/26/2022 16:22:26 Placenta circumvallata 1293974 O43.113 Z3A.32 O10.013 [id number] Peter Bryant CNM [facility] [address],[place] [address] 1 01/26/2022 14:55:32 01/26/2022 16:39:21 Routine care 017753737 Z34.91 [id number] Messi Garcia MD [facility] [address],[place] [address] 1 02/02/2022 16:59:59 02/02/2022 17:58:36 Maternal obesity complicating , childbirth and the puerperium, antepartum 7391383605 07 O99.213 [id number] Messi Garcia MD [facility] [address],[place] [address] 1 02/02/2022 17:00:19 02/02/2022 18:17:03 Chronic hypertension complicating AND/OR reason for care during 95186214 O10.013 Z3A.33 [id number] [facility] [address],[place] [address] 02/02/2022 17:00:45 02/02/2022 18:50:24 Routine care 812599116 Z34.91 [id number] Messi Garcia MD [facility] [address],[place] [address] 1 02/09/2022 16:53:15 02/09/2022 17:49:24 Maternal obesity complicating , childbirth and the puerperium, antepartum 8676892177 07 O99.213 [id number] Messi Garcia MD [facility] [address],[place] [address] 1 02/09/2022 16:53:36 02/09/2022 18:15:36 Chronic hypertension complicating AND/OR reason for care during 19241400 O10.013 O99.213 Z3A.34 [id number] [facility] [address],[place] [address] 1 02/09/2022 16:54:04 02/09/2022 18:25:27 Routine care 623267888 Z34.91 [id number] Messi Garcia MD [facility] [address],[place] [address] 1 02/16/2022 17:00:10 02/16/2022 17:56:48 Chronic hypertension complicating AND/OR reason for care during 75449365 O10.013 O99.213 Z3A.34 [id number] Messi Garcia MD [facility] [address],[place] [address] 1 02/16/2022 17:00:39 02/16/2022 18:07:43 Chronic hypertension complicating AND/OR reason for care during 27839469 O10.013 Z3A.35 O99.213 [id number] [facility] [address],[place] [address] 02/16/2022 17:01:03 02/16/2022 18:20:17 Routine care 472232286 Z34.91 [id number] Messi Garcia MD [facility] [address],[place] [address] 1 02/18/2022 15:23:24 02/18/2022 15:53:12 Reduced movement 600920294 O36.8199 [id number] Peter Bryant [facility] [address],[place] [address] 1 02/23/2022 16:45:10 02/23/2022 18:18:35 Routine care 189625977 Z34.91 Large for gestation age fetus 676553411 O36.63X0 [id number] Messi Garcia MD [facility] [address],[place] [address] 1 02/23/2022 16:42:55 02/23/2022 17:12:22 Chronic hypertension complicating AND/OR reason for care during 34306525 O10.013 Z3A.35 O99.213 [id number] Messi Garcia MD [facility] [address],[place] [address] 1 02/23/2022 16:43:28 02/23/2022 17:56:35 Chronic hypertension complicating AND/OR reason for care during 86579274 O10.013 O99.213 Z3A.36 [id number] Pretty Cotton MD [facility] [address],[place] [address] 03/16/2022 14:15:55 03/17/2022 16:13:50 Pain in pelvis 00806106 R10.2 [id number] Messi Garcia MD [facility] [address],[place] [address] 1 03/17/2022 13:34:56 03/17/2022 14:02:57 Pain in pelvis 66969067 R10.2 this patient is a 25-year-ol d [...] face-to-fa ce discussing this very complex topic. [id number] Messi Garcia MD [facility] [address],[place] [address] 03/17/2022 13:35:31 03/18/2022 13:49:15 Pain in pelvis 00698349 R10.2 patient is a 27-year-ol d female [...] We spent over 20 minutes face-to-fa ce. 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 restart lexapro, to ed if any suicidal thoughts, reviewed se risks and benefits f/u 6 week med check if unavailabl e can do by phone Low grade squamous intraepithelial lesion on cervical Papanicolaou smear 6249717652 9105 R87.612 f/u pending pathology [id number] Peter Bryant, [place] [address],[place] [address] 1 08/16/2023 11:38:58 08/16/2023 13:55:15 Pain in pelvis 47913208 R10.2 also start pelvic floor pT Gynecologi c examination 64916181 Z01.419 [id number] Messi Garcia MD [facility] [address],[place] [address] 1 08/22/2023 11:28:17 08/22/2023 12:06:29 Pain in pelvis 90861757 R10.2 patient is a 27-year-ol d female [...] We spent over 20 minutes face-to-fa ce. [id number] Messi Garcia MD [facility] [address],[place] [address] 04/23/2024 09:16:05 04/23/2024 10:09:58 screening 935782377 Z36.87 O30.049 Z3A.01 [id number] Messi Garcia MD [facility] [address],[place] [address] 1 05/10/2024 15:16:46 05/10/2024 16:01:31 [id number] [facility] [address],[place] [address] 05/10/2024 15:17:03 05/10/2024 16:51:44 Amenorrhea 19825478 Z31.89 Z31.83 Dichorioni c diamniotic twin 195658282 O30.049 reviewed US plan us at 12 weeksnipt at 10 weeks with labsawait pap until pp visitrevie wed precaution s and educationh x preeclamps ia without severe features last [id number] Messi Garcia MD [facility] [address],[place] [address] 1 05/21/2024 11:09:17 05/21/2024 12:05:12 Threatened miscarriage 68325983 O20.0 O30.041 Z3A.09 [id number] Messi Garcia MD [facility] [address],[place] [address] 1 05/23/2024 17:26:08 05/24/2024 10:31:39 Threatened miscarriage 59991746 O20.0 O30.041 Z3A.09 [id number] Messi Garcia MD [facility] [address],[place] [address] 1 05/23/2024 18:31:17 05/24/2024 10:33:13 Pain in pelvis 53414143 R10.2 this patient is a 29-year-ol d [...] is to contact us if pain worsens. [id number] Messi Garcia MD [facility] [address],[place] [address] 1 05/29/2024 10:21:34 05/29/2024 11:12:31 condition affecting obstetrical care of mother 354622471 O36.8910 Z3A.10 [id number] Messi Garcia MD [facility] [address],[place] [address] 1 06/03/2024 16:41:37 06/04/2024 14:32:45 screening 068487199 Z36.82 Z3A.11 [id number] Peter rByant [facility] [address],[place] [address] 1 06/05/2024 14:45:02 06/06/2024 16:44:18 Nausea and vomiting 43401983 R11.2 Migraine 28028664 G43.90 9 Routine an tenatal care 570625230 Z34.91 Twin 42774909 O30.009 [id number] Messi Garcia MD [facility] [address],[place] [address] 1 06/12/2024 17:23:11 06/12/2024 18:08:31 Medical examination for suspected condition 295950194 Z03.72 Z3A.12 [id number] Messi Garcia MD [facility] [address],[place] [address] 1 07/01/2024 16:17:41 07/01/2024 17:36:13 Dichorionic diamniotic twin 916198722 O30.042 Z3A.15 [id number] Peter Bryant [facility] [address] [address] 1 07/03/2024 09:17:02 07/03/2024 09:55:31 Gestation period, 15 weeks 9399977 Z3A.15 [id number] ALEC WILKINSON MD [facility] [address],[place] [address] 1 07/08/2024 10:41:29 07/08/2024 11:38:56 Pruritic rash 56497822 L28.2 Dichorioni c diamniotic twin 214653583 O30.049 Chronic hy pertension complicating AND/OR reason for care during 50541386 O16.9 Gestation period, 16 weeks 63246056 Z3A.16 [id number] Messi Garcia MD [facility] [address],[place] [address] 1 07/12/2024 10:38:28 07/12/2024 11:50:01 [id number] Peter Bryant [facility] [address] [address] 1 07/31/2024 16:35:21 08/01/2024 09:45:58 Gestation period, 19 weeks 80742614 Z3A.19 Dichorioni c diamniotic twin 123868222 O30.049 Gastroesop hageal reflux disease 062338137 K21.9 [id number] [facility] [address],[place] [address] 1 08/09/2024 12:12:22 08/09/2024 14:11:25 Pain in pelvis 20608424 R10.2 start physical therapy [id number] Messi Garcia MD [facility] [address] [address] 1 08/22/2024 12:06:07 08/22/2024 13:36:01 Dichorionic diamniotic twin 887106137 O30.042 O36.8120 Z3A.23 4802631 [id number] [facility] [address],[place] [address] 1 08/28/2024 14:16:16 08/30/2024 10:02:02 [id number] Peter Bryant CNM [facility] [address] [place] [address] 1 08/29/2024 09:57:22 08/30/2024 10:26:31 Gestation period, 24 weeks 056846373 Z3A.24 0212028 [id number] Messi Garcia MD [facility] [address] [address] 1 09/18/2024 11:30:12 09/18/2024 12:33:22 Dichorionic diamniotic twin 866176924 O30.042 O99.891 Z3A.26 4026552 [id number] Peter Bryant [facility] [address] [address] 1 09/27/2024 14:05:42 09/27/2024 14:47:06 Gestation period, 28 weeks 47536650 Z3A.28 7533970 [id number] Messi Garcia MD [facility] [address] [address] 1 10/09/2024 13:51:09 10/09/2024 15:10:27 Dichorionic diamniotic twin 504215633 O30.043 O32.1XX2 Z36.2 Z3A.29 9657617 [id number] Peter Bryant [facility] [address] [address] 1 10/09/2024 13:51:24 10/09/2024 16:46:13 Gestation period, 29 weeks 58538500 Z3A.29 8274682 [id number] Messi Garcia MD [facility] [address] [address] 1 10/22/2024 11:49:29 10/22/2024 13:06:50 Dichorionic diamniotic twin 574294102 O30.043 O24.410 O13.3 Z3A.31 6823936 [id number] Peter Bryant [facility] [address] [address] 1 10/23/2024 14:57:19 10/27/2024 19:34:15 Twin 25787276 O30.009 64332307 [id number] Peter Bryant [facility] [address] [address] 1 10/23/2024 14:57:44 10/23/2024 16:42:04 Gestation period, 31 weeks 48917353 Z3A.31 9384494 [id number] Messi Garcia MD [facility] [address] [address] 1 10/30/2024 11:49:15 10/30/2024 12:53:32 Dichorionic diamniotic twin 424217876 O30.043 O24.410 O16.3 Z3A.32 8619064 [id number] Peter Bryant [facility] [address] [address] 1 10/30/2024 11:49:41 10/30/2024 13:44:54 Gestation period, 32 weeks 6104635 Z3A.32 5809274 [id number] Messi Garcia MD [facility] [address] [address] 1 11/06/2024 14:02:15 11/06/2024 15:08:32 Dichorionic diamniotic twin 008794245 O30.043 O24.414 O24.597 8188562 [id number] ALEC WILKINSON MD [facility] [address] [address] 1 11/06/2024 14:02:26 11/06/2024 17:33:51 Chronic hypertension complicating AND/OR reason for care during 33458045 O10.919 93786999 [id number] Peter Bryant [facility] [address] [address] 1 11/06/2024 14:02:37 11/06/2024 16:26:16 Gestation period, 33 weeks 81792705 Z3A.33 0515047 Dichorioni c diamniotic twin 601821047 O30.808 7042038 [id number] Messi Garcia MD [facility] [address] [address] 1 11/13/2024 13:58:59 11/13/2024 15:10:18 Dichorionic diamniotic twin 967775631 O30.043 O24.410 O16.3 O99.213 Z3A.34 9956854 [id number] Peter Bryant [facility] [address] [address] 1 11/13/2024 13:59:12 11/13/2024 15:41:29 Chronic hypertension complicating AND/OR reason for care during 86558859 O10.919 93963165 [id number] Peter Bryant [facility] [address] [address] 1 11/13/2024 13:59:25 11/13/2024 16:05:11 Gestation period, 34 weeks 68979584 Z3A.34 2771618 [id number] Messi Garcia MD [facility] [address] [address] 1 11/20/2024 13:42:52 11/20/2024 14:50:53 Dichorionic diamniotic twin 676026219 O30.043 O24.410 Z3A.35 9346463 [id number] Peter Bryant [place] [address] [address] 1 11/20/2024 13:43:10 11/21/2024 12:11:29 Past history of gestational hypertension 411306681 Z87.59 [id number] [id number] Peter Bryant [place] [address] [place] [address] 11/20/2024 13:43:30 11/20/2024 16:02:36 Gestation period, 35 weeks 18397794 Z3A.35 [id number] Peter Bryant [place] [address],[place] [address] 12/04/2024 15:34:40 12/04/2024 16:16:26 Hypertension AND/OR vomiting complicating childbirth AND/OR puerperium [id number] O13.9 [id number] ok to discontinu e labetalol, ok to continue flexeril for back painmonito r bp at homef/u 3-4 weeks pp Herpes labialis 4739375 B00.1 72619 Low back pain 996362466 M54.50 [id number] Peter Bryant CNM [place] [address] [address] 01/03/2025 11:21:49 01/03/2025 12:08:35 Anxiety 87446799 F41.9 33952 reviewed se risks and benefits, if not helping will f/u with t young apnif any suicidal thoughts to ED depression 58 811490 F53.0 40593 Irregular periods 764007 07 N92.6 50679 plan [id number] ALEC WILKINSON MD [place] [address] [address] 01/07/2025 12:24:22 01/07/2025 13:20:26 Abnormal uterine bleeding [id number] 9100 N93.9 351263 Health Concerns Section Related Observation LastModified by Organization Detai ls LastModified Time None Recorded Concern Status LastModified by Organization Details LastModified Time None Recorded Advance Directives Directive N: Payers Insurance Date Sequence Insurance Name Policy Number Policy Steele Covered Member ID Steele Member ID Guarantor Name 05/10/2024 2 [facility] Chjc Xbb [id number] Yessica M Corzine 05/18/2021 1 [facility] [id number] Luis Antonio A Corzine [id number] Yessica M Corzine 06/15/2022 *SELF PAY* Me kartik M Corzine 08/31/2020 2 [facility] Luis Antonio Corzine [id number] Yessica M Corzine 08/31/2020 3 [facility] Jospeh Corzine [id number] Yessica M Corzine 09/04/2020 2 [facility] Luis Antonio Corzine [id number] Yessica M Corzine 09/23/2020 2 [facility] Jospeph Corzine [id number] Yessica M Corzine 01/24/2025 1 [facility] [id number] Luis Antonio A Corzine [id number] Yessica M Corzine 05/10/2024 3 [facility] [id number] Vxbn FB BC DBJ Yessica M Corzine Notes Date Note Type Note Provider Name and Address Organization Details Recorded Time 5 text/html Generic HPI TemplateReported by Patient Peter Bryant CNM [address], [place], [address], [facility] 11/20/2024 16:00:40 5 text/html ROS as noted in the HPI gestational HTN, stopped procardia couple days after birthforgot labetalol today denies sxsbp normotensivehas bp monitor at home Pretty moreno, [facility] 01/15/2025 14:17:29 5 text/html VisitReported by PatientHPIFor associated symptoms, patient reportsbaby blues. For quality, patient reportsnsvd(x2). For context, patient reportscomplications of : __,complications of labor: none,feeding choice: breast and bottle, depression, andresumed menstrual bleeding no. For contraception plan, patient reportsdeclines contraception.has heavy bleeding some daysROS as noted in the HPI Peter Bryant CNM [address], [place], [address], [facility] 01/03/2025 12:01:39 OBGyn Episode Ob Episode Information Episode Created Date Number of Fetuses Patient Bloodtype Patient rh Status Prepregnancy Weight lbs Domestic Partner Domestic Partner Phone Father Name Inbound Call Center Agent Status 12/25/19 20 1 CLOSED Fetus Data [...] Domestic Partner Domestic Partner Phone Father Name Inbound Call Center Agent Status 12/25/19 20 1 CLOSED Fetus Data [...] Domestic Partner Domestic Partner Phone Father Name Inbound Call Center Agent Status 09/11/19 22 1 A Positive 221 CLOSED Fetus Data First Name Last Name Admitted to NICU Weight (g) Sex Living Outcome Pediatric Complications Fetus ID Race Codes Race Delivery Type 4224.07 55 M true Full Term [id number] Vaginal Delivery Problems Problem Notes TSH WNL/A+/Ha1c/CBC WNL Problem Name Start Date End Date Resolution Snomed Code Not e Hypothyroidism 89579535 care: history of infertility 131400794 Group B Streptococcus carrier [id number] bacteriuria Maternal obesity complicating , childbirth and the puerperium, antepartum 725989437554 BMI 39- ante testing at 37w 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 [id number] maia ellsworth , baseline labs, ASA Placenta circumvallata [id number] Serial growth u/s Pre-eclampsia [id number] Darren Calculation Initial Darren Date Initial Exam [...] Date Ultra Sound Latest Days Gestation 0 [email or web address] 09/13/2021 03/23/20 22 0 Pre- Flowsheet Flowsheet Date 09/10/2021 Mckinney Score Blood Edema Fundus Height Fundus Units Glucose Ketones Leukocytes Nitrite Labor Signs Protein Cervic Dilation Cervic Effacement Cervic Station neg none Type Weight in lbs Pre/Post Dialysis Refused Weight 225.077739951778 BP Diastolic BP Location Tested BP Systolic [...] Weight in lbs Pre/Post Dialysis Refused Weight 226.283143598592 BP Diastolic BP Location Tested BP Systolic [...] Weight in lbs Pre/Post Dialysis Refused Weight 224.813323943016 BP Diastolic BP Location Tested BP Systolic [...] Weight in lbs Pre/Post Dialysis Refused Weight 230.127250815460 BP Diastolic BP Location Tested BP Systolic [...] Weight in lbs Pre/Post Dialysis Refused Weight 234.836705824888 BP Diastolic BP Location Tested BP Systolic [...] Weight in lbs Pre/Post Dialysis Refused Weight 235.366455905552 BP Diastolic BP Location Tested BP Systolic [...] Weight in lbs Pre/Post Dialysis Refused Weight 239.869101467834 BP Diastolic BP Location Tested BP Systolic [...] Weight in lbs Pre/Post Dialysis Refused Weight 240.302763758914 BP Diastolic BP Location Tested BP Systolic [...] Weight in lbs Pre/Post Dialysis Refused Weight 242.986582012652 BP Diastolic BP Location Tested BP Systolic [...] Weight in lbs Pre/Post Dialysis Refused Weight 243.621899835803 BP Diastolic BP Location Tested BP Systolic [...] Weight in lbs Pre/Post Dialysis Refused Weight 242.869860660856 BP Diastolic BP Location Tested BP Systolic [...] Weight in lbs Pre/Post Dialysis Refused Weight 246.989198828208 BP Diastolic BP Location Tested BP Systolic BP Type 92 146 90 160 Fetus Heart Rate Present Fetus Movement A Decreased Comments patient is having pain, cont ractions, heartburn and swelling. bp elevated nst nr, bpp 8/, decreased movement to ld for labs and [...] Weight in lbs Pre/Post Dialysis Refused Weight 246.509054248645 BP Diastolic BP Location Tested BP Systolic [...] Weight in lbs Pre/Post Dialysis Refused Weight 211.340068607526 BP Diastolic BP Location Tested BP Systolic [...] Weight in lbs Pre/Post Dialysis Refused Weight 211.056047749925 BP Diastolic BP Location Tested BP Systolic BP Type 86 L arm 126 sitting Fetus Heart Rate Present Fetus Movement Comments Flowsheet Date 04/08/2022 Mckinney Score Blood Edema Fundus Height Fundus Units Glucose Ketones Leukocytes Nitrite Labor Signs Protein Cervic Dilation Cervic Effacement Cervic Station Type Weight in lbs Pre/Post Dialysis Refused Weight 212.04145727199 BP Diastolic BP Location Tested BP Systolic BP Type 84 134 Fetus Heart Rate Present Fetus Movement Comments Flowsheet Date 05/27/2022 Mckinney Score Blood Edema Fundus Height Fundus Units Glucose Ketones Leukocytes Nitrite Labor Signs Protein Cervic Dilation Cervic Effacement Cervic Station Type Weight in lbs Pre/Post Dialysis Refused Weight 221.205087998623 BP Diastolic BP Location Tested BP Systolic [...] Estim ated Date of Delivery false Thalassemia (Maltese, Finnish, Mediterranean, Or Background): MCV < 80 false Neural Tube Defect (Meningomyelocele, Spina Bifi da, Or Anencephaly) false Congenital Heart Defect false Down Syndrome false Curt-Sachs (eg, Quaker, Cajun, Swedish-Weldon) f alse Yung Disease false Sickle Cell [...] Domestic Partner Domestic Partner Phone Father Name Inbound Call Center Agent Status 06/05/19 25 2 A Positive 198 Gabriel Mo CLOSED Fetus Data First Name Last Name Admitted to NICU Weight (g) Sex Living Outcome Pediatric Complications Fetus ID Race Codes Race Delivery Type Kassidy false 3175.14 4 F true Full Term 73451 Vaginal Delivery Nel stoner false 3430.28 95 F true Full Term 48343 Vaginal Delivery Problems Problem Notes Anatomy with MFM - 07/31/24 1 300 [facility] U/S & OV [facility] 08/27/24 US only 1:00PM Problem Name Start Date End Date Resolution Snomed Code Not e care: history of infertility 479787840 Past history of shoulder dystocia 398737779 Large for gestation age fetus 897879437 less then 30 se c shoulder dystocia Past history of pre-eclampsia 161582083745038 bASA x2 Migraine 44189448 magnesium, Excedrin tension, sumatriptan 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 5489720 Palpitations [id number] Holter monitor faxed to [facility] 07/29 Gestational diabetes mellitus 10/10/2024 32219108 Glucose tolerance test outside reference range 10/01/2024 411999900 10/01/2024 ch ecking blood sugars for 2 week instead for doing 3 hour Twin 03673141 38 wk deliveryantenatal testing @ 32wks per [facility] Scheduled rpt 08/27 us ONLY Darren Calculation [...] Weight in lbs Pre/Post Dialysis Refused Weight 207.821198808274 BP Diastolic BP Location Tested BP Systolic [...] Type Weight in lbs Pre/Post Dialysis Refused 214.989464812399 BP Diastolic BP Location Tested BP Systolic [...] Weight in lbs Pre/Post Dialysis Refused Weight 216.337332071926 BP Diastolic BP Location Tested BP Systolic [...] No bleeding. Will send for anatomy at [facility]. Will measure for belly band today due [...] Type Weight in lbs Pre/Post Dialysis Refused 220.368149290703 BP Diastolic BP Location Tested BP Systolic [...] Type Weight in lbs Pre/Post Dialysis Refused 227.688968755643 BP Diastolic BP Location Tested BP Systolic [...] Weight in lbs Pre/Post Dialysis Refused Weight 229.447227566182 BP Diastolic BP Location Tested BP Systolic BP Type 89 133 Fetus Heart Rate Present Fetus Movement A Yes B Yes Comments Patient is having pressure, contractions and swelling. Flowsheet Date 08/29/2024 Mckinney Score Blood Edema Fundus Height Fundus Units Glucose Ketones Leukocytes Nitrite Labor Signs Protein Cervic Dilation Cervic Effacement Cervic Station Type Weight in lbs Pre/Post Dialysis Refused 232.40510964454 BP Diastolic BP Location Tested BP Systolic [...] Type Weight in lbs Pre/Post Dialysis Refused 236.279863617366 BP Diastolic BP Location Tested BP Systolic [...] Type Weight in lbs Pre/Post Dialysis Refused 234.350884511202 BP Diastolic BP Location Tested BP Systolic BP Type 87 138 Fetus Heart Rate Present Fetus Movement A Yes B Yes Comments Patient is having pain and c ontractions and swelling. 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 [facility], eduction and precautions f/u [...] Weight in lbs Pre/Post Dialysis Refused Weight 241.392770000571 BP Diastolic BP Location Tested BP Systolic BP Type 82 125 Fetus Heart Rate Present Fetus Movement Comments Flowsheet Date 10/23/2024 Mckinney Score Blood Edema Fundus Height Fundus Units Glucose Ketones Leukocytes Nitrite Labor Signs Protein Cervic Dilation Cervic Effacement Cervic Station neg trace Type Weight in lbs Pre/Post Dialysis Refused 241.23340090218 BP Diastolic BP Location Tested BP Systolic [...] Type Weight in lbs Pre/Post Dialysis Refused 248.620497776206 BP Diastolic BP Location Tested BP Systolic [...] Type Weight in lbs Pre/Post Dialysis Refused 238.437674378764 BP Diastolic BP Location Tested BP Systolic [...] Weight in lbs Pre/Post Dialysis Refused Weight 243.994998857069 BP Diastolic BP Location Tested BP Systolic BP Type 84 L arm 133 sitting Fetus Heart Rate Present Fetus Movement A Yes Comments +FM, sleeping better during day bpp 02/14 precautions and education f/u one week Flowsheet Date 12/04/2024 Mckinney Score Blood Edema Fundus Height Fundus Units Glucose Ketones Leukocytes Nitrite Labor Signs Protein Cervic Dilation Cervic Effacement Cervic Station Type Weight in lbs Pre/Post Dialysis Refused Weight 205.101415149795 BP Diastolic BP Location Tested BP Systolic BP Type 92 L arm 133 sitting Fetus Heart Rate Present Fetus Movement Comments Menstrual History Last Menstrual Date Menses Monthly On Bcp Conception Prior Menses Frequency Hcg Plus Date Menarche Onset Age Delivery Information Delivery Date Delivery Type Labor Anesthesia Weeks Gestation Incision Type Labor Labor Length Hrs Delivered By Post Complications Tubal Sterilization Discharge Date Comments 5 Sponta neous 36.6 Low Transvers e false None false Discharge Information Feeding Method Contraceptive Method Maternal HG B and HCT Levels
== END 2024-11-01 07:51 | disposition home or self-care (01) ==
LOC: ANHLDR 22:26 → ANHOBPP 01-29 16:53
PROVIDERS: Admitting Provider Obstetrics & Gynecology; Visit Provider Obstetrics & Gynecology
DX: O47.03 False labor before 37 completed weeks of gestation, third trimester (principal); Z3A.33 33 weeks gestation of pregnancy
CPT/HCPCS: 36415; 80053; 81001; 82570; 82948; 84156; 84550; 85025; A9270; G0378; G0379; J3105

== ENCOUNTER 2024-11-03 21:13 | Observation (INO) | payer OTHER, SELFPAY ==
[2024-11-03] VITALS (11 sets, daily range): BP systolic 120–145; BP diastolic 71–85; PULSE 101–116; TEMP 36.9; BMI 39.2
[2024-11-03 21:43] LABS: Add Urine Microscopic? YES; Appearance Urine Clear (Clear); Bacteria Urine 1+ /hpf; Bilirubin Urine Negative (Negative); Blood Urine Trace (Negative); Color Urine Yellow (Yellow); Glucose Urine UA Negative (Negative); Ketones Urine Negative (Negative); Leukocyte Esterase Ur Trace LEU/UL (Negative); Nitrate Urine Negative (Negative); Non Pathogenic Casts 0-2; Protein Urine Negative (Negative); RBC Urine 0-2 /hpf (0-2); Specific Grav Ur 1.008 (1.001-1.035); Squamous Epithelial Cell Urine None Seen /hpf (Few); WBC Urine 0-5 /hpf (0-3)
[2024-11-03] MEDS: NIFEdipine 10 MG CAPSULE PO (22:22)
--- NOTE | 2024-11-03 23:42 | OBADM ---
This patient, Yessica Mo, admitted to the OB room OB Post 117 for observation. Patient/family oriented to hospital policies and general routines including ID bracelet, bed and alarms, visiting hours, pain management, procedures, bathroom and other care routines, personal items, smoking policy, room service/diet, and visiting hours. Patient/Family are encouraged to report perceived risks to care and to ask questions if they do not understand what they are told or what they should do.
[2024-11-03] MEDS: BETAMETHASONE SOD PHOS/ACETATE 30 MG/5 ML VIAL 12 MG IM (23:55)
--- NOTE | 2024-11-24 21:32 | PM.OBTRLD ---
OB - Triage/Final Diagnosis Visit Information Comments/Additional reasons for admission: I have assessed the risk for this patient, Yessica Mo, and determined that she would benefit from observation care. Evaluation Laboratory results: Laboratory Tests 11/03/24 21:34 Urine Color Yellow Urine Appearance Clear Urine pH 7.0 Ur Specific [place] 1.008 Urine Protein Negative Urine Glucose (UA) Negative Urine Ketones Negative Ur Blood (Man) Trace Urine Nitrate Negative Urine Bilirubin Negative Urine Urobilinogen 1.0 Leukocyte Esterase Rfl Trace H Urine RBC 0-2 Urine WBC 0-5 Ur Squamous Epith Cells None seen Urine Bacteria 1+ H Urine Casts 0-2 Final Diagnosis (1) False labor: Code(s): O47.9 - False labor, unspecified Status: Acute
== END 2024-11-04 00:02 | disposition home or self-care (01) ==
PROVIDERS: Admitting Provider Obstetrics & Gynecology; Visit Provider Obstetrics & Gynecology
DX: O47.03 False labor before 37 completed weeks of gestation, third trimester (principal); Z3A.33 33 weeks gestation of pregnancy
CPT/HCPCS: 81001; 96372; A9270; G0378; G0379; J0702

== ENCOUNTER 2024-11-05 06:20 | Outpatient (CLI) | payer OTHER, SELFPAY ==
--- OUTSIDE RECORDS SUMMARY | 2024-11-04 12:44 | XMS_ITS | Encounter Summary ---
Author Organization [facility] Address [address] [place] [address] Phone Care Team Providers Care Skin Carver Name Role Phone Manda Singh MD Unavailable [phone] Scooter White DO Primary Care Provider Malik Cates MD Unavailable Ulices Marino MD Unavailable Yon Gutierrez MD Primary Care Provider Georgina Fontenot APRN, STOCK HANGER Unavailable [phone] Encounter Details Date Type Department Care Team (Late st Contact Info) Description 07/26/2021 [facility] [address] [place] [address] Edita Garza, TRUNG, INSURANCE AGENT [address] [place] [address] Encounter for pre-employment examination Social History Tobacco [...] >=1.1 AI 07/26/2021 10:00 PM CDT [facility] Blood No Phlebotomy Charged / Unknown 07/26/2021 9:00 AM CDT 07/26/2021 2:15 PM CDT Narrative [facility] - 07/26/2021 10:00 PM CDT <= 0.8 Negative. No detectable VZV IgG antibody. 0.9 - 1.0 Equivocal >=1.1 Positive Antibody testing was performed by multiplex flow immunoassay on the BioPlex platform. Edita L Behrends BEEF GRINDER, INSURANCE AGENT IMMUNOLOGY ORDERABL ES Final Result Performing Organization Address [facility] de Phone Number [facility] [address] [place] [address], [place] * (ABNORMAL) RUBEOLA (MEASLES) IGG (07/26/2021 [...] on the BioPlex platform. Edita L Behrends BEEF GRINDER, INSURANCE AGENT IMMUNOLOGY ORDERABL ES Final Result Performing Organization Address [facility] de Phone Number [facility] [address] [place] [address], [place] * RUBELLA IMMUNITY IGG (07/26/2021 9:00 AM CDT) [facility]UN[facility] Immune Immune, Invalid 07/26/2021 10:00 PM CDT [facility] Blood No Phlebotomy Charged / Unknown 07/26/2021 9:00 AM CDT 07/26/2021 2:15 PM CDT Narrative [facility] - 07/26/2021 10:00 PM CDT Antibody testing was performed by multiplex flow immunoassay on the BioPlex platform. us Edita Garza BEEF GRINDER, INSURANCE AGENT CHEMISTRY ORDERABLE S Final Result Performing Organization Address [facility] Co de Phone Number [facility] [address] [place] [address], [place] * MUMPS IGG (07/26/2021 9:00 AM [...] immunoassay on the BioPlex platform. us Edita Garza BEEF GRINDER, INSURANCE AGENT IMMUNOLOGY ORDERABL ES Final Result Performing Organization Address [facility] Co de Phone Number [facility] [address] [place] [address], [place] * QUANTIFERON-TB GOLD PLUS (07/26/2021 9:00 [...] or otherwise immunocompromised individuals. https://www.cdc.gov/tb/publications/guidelines/testing.htm us Edita L Behrends BEEF GRINDER, INSURANCE AGENT IMMUNOLOGY ORDERABL ES Final Result Performing Organization Address [facility] Co de Phone Number [facility] [address] [place] [address], [place] * HEPATITIS B SURFACE ANTIBODY (HBSAB) (07/26/2021 9:00 AM CDT) HEPATITIS B SURFACE ANTIBODY 8.33 mIU/mL [facility] ARCH [id number] B 07/27/2021 12:02 AM CDT [facility] Comment: [place] Range: >=8.00 to <=12.00 The immune status of the individual should be further assessed considering other factors, such as clinical status, follow-up testing, associated risk factors and the use of additional diagnostic information. Blood No Phlebotomy Charged / Unknown 07/26/2021 9:00 AM CDT 07/26/2021 2:15 PM CDT us Edita Garza BEEF GRINDER, INSURANCE AGENT CHEMISTRY ORDERABLE S Final Result Performing Organization Address [facility] Co de Phone Number [facility] [address] [place] [address], [place] documented in this encounter Visit Diagnoses Diagnosis Encounter for pre-employment examination Health examination of defined subpopulation documented in this encounter Additional Health Concerns Assessment Noted Time PHQ-9 Depression Total Score: 0 02/11/20 20 12:57 PM CDT documented as of this encounter Care Teams Skin Carver Relationship Specialty Start Date End Date Scooter White DO [address] [place] [address] [place] [address] PCP - General Internal Medicine 03/17/21 06/22/23 Yon Gutierrez MD [address] [place] [address] [address] PCP - General Family Medicine 06/23/23 Manda Singh MD Obstetrics & Gynecology 02/11/20 Malik Cates MD [address] [address] Consulting Physician Endocrinology 12/13/21 Ulices Marino MD [address] [address] Consulting Physician Colon and Rectal Surgery 07/06/22 Georgina Fontenot APRN, STOCK HANGER [address] [place] [address] Nurse Practitioner Advanced Practice Nurse 09/25/24 documented as of this encounter
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
--- OUTSIDE RECORDS SUMMARY | 2024-11-04 12:44 | XMS_ITS | Referral Summary ---
Author Organization [facility] Address [address] [place] [address] Care Team Providers Care Windows Systems Architect Name Role Phone Robby Torres MD Unavailable [phone] Yon Gutierrez MD Primary Care Provider Malik Cates MD Unavailable Cindi Bryant NP Unavailable [phone] Sakshi Biggs DO Unavailable [phone] Encounters Date Type Department Care Team Description 08/09/2024 8:15 AM CDT Office Visit [facility] [address] [facility] [address] [place] [address] Sakshi Biggs, Otorrhea of right ear (Primary Dx) from Last 3 Months Allergies Active Allergy Reactions Criticality Noted Date Comments Cephalexin Hives Medium 12/21/2023 Prednisone Hives Medium 08/09/2024 Medications aspirin 81 mg enteric coated tablet Take 1 tablet (81 mg total) by mouth daily Active vit 30-vzlo-xxnus-dh a 27mg iron- 800 mcg-250 mg capsule [...] one by Dr. Davila for endometriosis at [place] - this is her second period currently, [...] possible Assessment & Plan (06/20/2023 9:50 AM SERVICE ATTENDANT CAFETERIA): Hearing test, plan for bilateral myringotomy with [...] managed by endocrinology - Dr. Cates (her game developer) tried some medications without success - insurance [...] managed by endocrinology - Dr. Cates (her game developer) tried some medications without success - insurance [...] managed by endocrinology - Dr. Cates (her game developer) tried some medications without success - insurance limitations can affect it - start Phentermine, taper up dose sent - f/u in 6 weeks Assessment & Plan (05/28/2023 3:41 PM SERVICE ATTENDANT CAFETERIA): Wt Readings from Last 3 Encounters: 05/26/23 [...] months Assessment & Plan (05/28/2023 3:35 PM SERVICE ATTENDANT CAFETERIA): - chronic, recurrent condition, worse - in [...] disease. Assessment & Plan (05/28/2023 3:36 PM SERVICE ATTENDANT CAFETERIA): - chronic, recurring condition - has history [...] Recommend thyroid ultrasound. Instructed to inform her game developer about MRI findings. US Thyroid 09/2022 IMPRESSION: [...] recommended. Assessment & Plan (05/28/2023 3:28 PM SERVICE ATTENDANT CAFETERIA): Chronic condition, stable/controlled Diagnosed in 2018 Currently [...] 02/13/2019 Assessment & Plan (05/28/2023 3:38 PM SERVICE ATTENDANT CAFETERIA): - recent onset - was seen recently [...] 019 Assessment & Plan (05/26/2023 8:54 AM SERVICE ATTENDANT CAFETERIA): - had EGD in past and was found to have H. Pylori which was being treated - no current issues at this time Chronic gastritis 11/26/2018 Overview (05/03/2023): EGD - H pylori, GI S/P hemorrhoidectomy 11/26/2018 Conductive hearing loss, middle ear 10/18/2018 Assessment & Plan (04/03/2024 2:03 PM SERVICE ATTENDANT CAFETERIA): Avoid ear cleaning techniques Avoid water to ears Hearing test today was normal, ear tubes open suspect referred ear fullness from neck or jaw Chronic serous otitis media of left ear 10/19/19 19 Assessment & Plan (04/03/2024 1:03 PM SERVICE ATTENDANT CAFETERIA): Avoid ear cleaning techniques Avoid water to [...] (09/26/2018): Added automatically from request for surgery [id number] Assessment & Plan (09/26/2018 2:45 PM CDT): [...] on file Legal Sex Female 10:18 AM SERVICE ATTENDANT CAFETERIA Gender Identity Not on file Sexual Orientation Not on file Last Filed Vital Signs Vital Sign Reading Time Taken Comments Blood Pressure 138/88 04/06/2024 10:25 PM SERVICE ATTENDANT CAFETERIA Pulse 78 04/06/2024 11:45 PM SERVICE ATTENDANT CAFETERIA Temperature 36.3 C (97.4 F) 04/06/2024 10:25 PM SERVICE ATTENDANT CAFETERIA Respiratory Rate 18 04/06/2024 10:25 PM SERVICE ATTENDANT CAFETERIA Oxygen Saturation 100% 04/06/2024 11:45 PM SERVICE ATTENDANT CAFETERIA Inhaled Oxygen Concentration - - Weight 85.7 kg (189 lb) 04/06/2024 10:25 PM SERVICE ATTENDANT CAFETERIA Height 165.1 cm (5' 5) 04/06/2024 10:25 PM SERVICE ATTENDANT CAFETERIA Body Mass Index 31.45 04/06/2024 10:25 PM SERVICE ATTENDANT CAFETERIA Plan of Treatment Not on file Medical Devices Implanted Type Area Photographic Press Screwmaker Device Identifier Shelf Expiration Date Model / Serial / Lot Olympus Codi Inc 1.32mm 4.8mm Modify Ear T Tube Ventilation Ultrasil Sterile Blue [id number] - [id number] Implanted:Qty: 1 on 07/11/2023 by Sakshi Biggs DO at [facility] Left: Ear Olympus Codi Inc 01/03/2033 [id number] / / [id number] Olymp[employer] 1.32mm 4.8mm Modify Ear T Tube Ventilation Ultrasil Sterile Blue [id number] - [id number] Implanted:Qty: 1 on 07/11/2023 by Sakshi Biggs DO at [facility] Right: Ear [employer]odi [employer] 01/18/2033 [id number] / / [id number] Insurance [facility]PPO Address: [address] [address] [facility]/PPO Address: [address] [address] [facility]/PPO Address: [place] [phone] Care Teams Windows Systems Architect Relationship Specialty Start Date End Date Yon Gutierrez MD PCP - General Family Medicine 04/04/23 Robby Torres MD Referring Physician Family Medicine 08/22/19 Malik Cates MD [address] [place] [address] Referring Physician General Surgery 05/26/23 Cindi Bryant NP [address] [place] [address] Nurse Practitioner Obstetrics and Gynecology 05/26/23 Sakshi Biggs DO [address] [place] [address] [address] IN[address] [address] Consulting Physician Otolaryngology 05/26/23
--- OUTSIDE RECORDS SUMMARY | 2024-11-04 12:44 | XMS_ITS | Encounter Summary ---
Author Organization [facility] Address [address] [place] [address] Care Team Providers Care Stationary Boiler Fireman Name Role Phone Scooter White DO Primary Care Provider Encounter Details Date Type Department Care Team (Late st Contact Info) Description 11/06/2018 Lab Requisition [facility] Care Pathology Lab [address] [place] [address] Cindi Herrera MD [address] [place] [address] Enlarged lymph nodes Social History Tobacco Use Types Packs/Day Years Used Date Smoking Tobacco: Never Smokeless Tobacco: Never Alcohol Use Standard Drinks/Week Comments No 0 (1 standard drink = 0.6 oz pur e alcohol) Comments No Sex and Gender Information Value Date Recorded Sex Assigned at Not on file Legal Sex Female 1:08 PM COOLING TOWER TECHNICIAN Gender Identity Not on file Sexual [...] AM CDT) Case Report Flow Cytometry Case: [id number] Authorizing Provider: Cindi Herrera MD Collected: 11/05/2018 11:02 AM Pathologist: Alexa Weinberg MD Received: 11/06/2018 02:01 PM Specimen: Cervical Lymph Node , Left 9 5:33 PM T [facility] PATHOLOGY LAB Final Diagnosis Lymph node, left cervical, flow cytometric immunophenotypic analysis: - No evidence of non-Hodgkin lymphoma. - See interpretation. 9 5:[address] [facility] PATH[facility] at 1733 CDT Flow Cytometry Interpretation The left cervical lymph node specimen has a viability of 86%. The majority of events are in the lymphocyte gate. Within this region, there is no monoclonal B-cell population identified (kappa:lambda ratio is 1.3:1). There is no immunophenotypically aberrant or expanded T-cell population seen (CD4:CD8 ratio is 5.1:1). A touch imprint prepared from the flow cytometry specimen is reviewed for manager of quality purposes. In summary, the left cervical lymph node specimen shows no evidence of a non-Hodgkin lymphoma. Correlation with additional clinical information and the concurrent biopsy specimen is required. KR 9 5:[address] [facility] Flow Cytometry Results Differential Result Comment Flow Cell Count /uL [id number] Total Viability % 86.0 Lymphocytes % 97 Dim CD45 Region % 0 Monocytes % 1 Granulocytes % 1 9 5:[address] [facility] Reason for test Enlarged lymph nodes 785.6 9 5:[address] [facility] Client Specimen ID # [id number] 9 5:[address] [facility] Number of markers 16 were performed. A Flow CD3 A Flow CD10 A Flow CD20 A Flow CD23 A Flow CD2 A Flow CD4 A Flow CD1a A Flow CD5 A Flow CD19 A Flow CD34 A Flow CD45 A Flow CD7 A Flow CD8 A Flow CD30 A Downing+CD19+ A Lambda+CD19+ 9 5:[address] [facility] Disclaimer Test performed at [facility], [address] [place], [place], [address]. *The established laboratory minimum viability is 70%. [...] testing. 9 5:33 PM CDT [facility] PATHOLOGY LAB Embedded Images 9 5:33 PM CDT [facility] PATHOLOGY LAB Pathology/Cytolo gy ENTIRE CERVICAL LYMPH NODE / Unknown 11/05/2018 11:02 AM CDT 11/06/2018 2:01 PM CDT Cindi Herrera MD LAB - PATHOLOGY/CYTOLOGY ORDERA BLE Final Result [facility] PATHOLOGY LAB [address] [facility] [place] [address], [facility] [phone] documented in this encounter Visit Diagnoses Diagnosis Enlarged lymph nodes Enlargement of lymph nodes documented in this encounter Care Teams Stationary Boiler Fireman Relationship Specialty Start Date End Date Scooter White DO PCP - General 03/16/22 documented as of this encounter
--- OUTSIDE RECORDS SUMMARY | 2024-11-04 12:44 | XMS_ITS | Encounter Summary ---
Author Organization [facility] Address [address] [place] [address] Phone Care Team Providers Care Fbi Sharpshooter Name Role Phone Manda Singh MD Unavailable [phone] Robby Torres Primary Care Provider [phone] Scooter White DO Primary Care Provider Malik Cates MD Unavailable Ulices Marino MD Unavailable Yon Gutierrez MD Primary Care Provider Georgina Fontenot APRN, [facility] Unavailable [phone] Encounter Details Date Type Department Care Team (Late st Contact Info) Description 03/09/2020 Transcribe Orders [facility] Pre[facility]Pacu II [address] [place] [address] Walter Blake MD [address] [place] [address] Preop testing (Primary Dx) Social History Tobacco [...] COVID-19? Unable to assess 03/10/2020 1:32 PM BUSINESS ADMINISTRATION PROFESSOR documented as of this encounter Plan of Treatment Not on file documented as of this encounter Visit Diagnoses Diagnosis Preop testing- Primary Preoperative examination, unspecified documented in this encounter Additional Health Concerns Infection Onset Date Last Indicated Resolved Time COVID - 19 03/10/2020 03/10/2020 03/16/2020 11:4 0 AM BUSINESS ADMINISTRATION PROFESSOR Assessment Noted Time PHQ-9 Depression Total Score: 0 02/11/20 20 12:57 PM CDT documented as of this encounter Care Teams Fbi Sharpshooter Relationship Specialty Start Date End Date Robby Torres [address] [place] [address] PCP - General Family Medicine 02/11/20 03/16/21 Scooter White DO [facility] [facility] [address] PCP - General Internal Medicine 03/17/21 06/22/23 Yon Gutierrez MD [address] [facility] [address] [place] [address] PCP - General Family Medicine 06/23/23 Manda Singh MD Obstetrics & Gynecology 02/11/20 Malik Cates MD [address]2 [facility] [address] [place] [address] Consulting Physician Endocrinology 12/13/21 Ulices Marino MD [address] [address] Consulting Physician Colon and Rectal Surgery 07/06/22 Georgina Fontenot APRN, [employer] [address] [place] [address] Nurse Practitioner Advanced Practice Nurse 09/25/24 documented as of this encounter
--- OUTSIDE RECORDS SUMMARY | 2024-11-04 12:44 | XMS_ITS | Clinical Summary ---
Author Organization [facility] [employer] Address [address] [facility] [place] [address] Care Team Providers Care Hand Router Operator Name Role Phone Scooter White DO Primary Care Provider [phone] Source Comments [facility],non-owned Affiliates and Associated Physician Practices is amultiple site organization consisting of ambulatory clinics and hospital sitesin [place], [place], [place] and [place]. This disclosure is being madepursuant to the Care Everywhere program and may not contain all information available regarding this patient. Last updated 18.[facility] [employer] Allergies Active Allergy Reactions Criticality Noted [...] Encounters Date Type Department Care Team Description 10/28/2024 Telephone [facility] [address] [place], [place] [address] Silvina León Appointment 09/24/2024 1:00 PM CDT - 09/24/2024 11:59 PM CDT Hospital Encounter [facility] [address] [place] [address] Derick Mcclendon MD DECK MATE Discharge Disposition: Home or Self Care 08/27/2024 12:58 PM CDT - 08/27/2024 11:59 PM CDT Hospital Encounter [facility] [address] [place] [address] Christiano Tristan MD Discharge Disposition: Home or [...] on file 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 Gender Identity Not on file Sexual Orientation [...] 07/31/2024 2:00 PM CDT Plan of Treatment Health Maintenance Due Date Last Done Comments HEPATITIS C SCREENING 01/02/2011 DTAP/TDAP/TD VACCINES (1 - Tdap) 01/07/2012 HEPATITIS B VACCINE (1 of 3 - 19+ 3-dose series) 01/07/2012 PAP SMEAR 2014 COVID-19 VACCINE (2023-2 5 season) 2024 08/06/2021, 07/16/2021 DEPRESSION SCREENING 05/08/2024 OB-ONE HOUR GLUCOSE 09/08/2024 OB-TDAP CURRENT 09/15/2024 10/10/2019 OB-RHOGAM INJECTION 09/22/2024 OB-GROUP B STREP SCREEN 11/10/2024 INFLUENZA VACCINE (Season Ended) 2025 01/24/2020 ZOSTER [...] Associated Diagnosis Comments SONOGRAM - COMPLETE Routine 09/24/2024 1 :09 PM CDT History of pre-eclampsia in prior , currently (HCC) Dichorionic diamniotic twin in second trimester ([facility]) 28 weeks gestation of ([facility]) Supervision of high risk in second trimester ([facility]) Obesity affecting in second trimester, unspecified obesity type ([facility]) Encounter for follow-up ultrasound of anatomy ([facility]) Encounter for ultrasound to assess growth ([facility]) SONOGRAM - COMPLETE Routine 08/27/2024 1 2:52 PM CDT Dichorionic diamniotic twin in second trimester ([facility]) History of pre-eclampsia in prior , currently ([facility]) 24 weeks gestation of ([facility]) Supervision of high risk in second trimester ([facility]) from Last 3 Months Results * SONOGRAM - COMPLETE (09/24/2024 1:09 PM CDT) Only the most recent of2 resultswithin the time period is included. Linked Results Indication ======== DA/DC Twins Incomplete Anatomy Screen x2 History of Preeclampsia, Obesity in , Class II History ====== OB History 4. Para 3 [id number] 1. live 2011. Gest. age 41 w [...] BMI 36.67 kg/m Method ====== Transabdominal ultrasound. View: Sufficient ========= Twin . Number of fetuses: 2. Dichorionic-diamnio tic Dating ====== Date Details Gest. age BETTY Stated BETTY 27 w + 5 d 12/19/2024 U/S Fetus A 09/24/2024 based upon AC, BPD, Femur, HC 28 w + 6 d 12/11/2024 U/S Fetus B based upon AC, BPD, Femur, HC 28 w + 2 d 12/15/2024 Assigned dating based on stated BETTY, selected on 07/31/2024 27 w + 5 d 12/19/2024 Fetus A: General Evaluation Cardiac activity present. FHR 154 bpm. Presentation: cephalic left Placenta: Placental site: anterior Umbilical cord: Cord vessels: 3 vessel cord - previously documented. Insertion site: normal insertion - previously documented Amniotic fluid: Amount of AF: normal. MVP 5.0 cm Fetus B: General Evaluation Cardiac activity present. FHR 156 bpm. Presentation: cephalic right Placenta: Placental site: posterior Umbilical cord: Cord vessels: 3 vessel cord - previously documented. Insertion site: normal insertion - previously documented Amniotic fluid: Amount of AF: normal. MVP 5.8 cm Fetus A: Biometry BPD 73.2 mm 29w 3d 87% Hadlock HC 260.9 mm 28w 3d 41% Hadlock AC 253.3 mm 29w 4d 89% Hadlock Femur 52.6 mm 28w 0d 43% Hadlock Humerus 48.1 mm 28w 2d 61% Robinson HC / AC 1.03 Weight Calculation: EFW 1,302 g 81% Hadlock EFW (lb,oz) 2 lb 14 oz EFW by Hadlock ([id number]) EFW discordance 4.6 % appropriate Fetus B: Biometry BPD 69.2 mm 27w 6d 42% Hadlock HC 260.6 mm 28w 2d 39% Hadlock AC 252.3 mm 29w 3d 88% Hadlock Femur 51.1 mm 27w 3d 25% Hadlock Humerus 48.6 mm 28w 4d 68% Robinson HC / AC 1.03 Weight Calculation: EFW 1,242 g 69% Hadlock EFW (lb,oz) 2 lb 12 oz EFW by Hadlock ([id number]-[id number]) EFW discordance 4.6 % appropriate Fetus A: Growth Overview Exam date GA BPD (mm) HC (mm) AC (mm) FL (mm) HL (mm) EFW (g) 07/31/2024 19w 6d 48.8 84% 181.3 73% 157.3 77% 34.6 78% 32.3 86% 381 91% 08/27/2024 23w 5d 62.4 91% 226.9 72% 205.9 84% 44.4 67% 41 74% 751 90% 09/24/2024 27w 5d 73.2 87% 260.9 41% 253.3 89% 52.6 43% 48.1 61% 1302 81% Fetus B: Growth Overview Exam date GA BPD (mm) HC (mm) AC (mm) FL (mm) HL (mm) EFW (g) 07/31/2024 19w 6d 46.1 53% 165.1 16% 156.8 76% 33.2 62% 30.5 63% 356 78% 08/27/2024 23w 5d 56.5 27% 211.7 17% 202.4 77% 43.7 59% 695 74% 09/24/2024 27w 5d 69.2 42% 260.6 39% 252.3 88% 51.1 25% 48.6 68% 1242 69% Fetus A: Anatomy The following structures appear normal: Head / Neck Cranium. Heart / Thorax 4-chamber view. Aortic arch view. Abdomen Stomach. Kidneys. Bladder. Genitals. Spine Cervical spine. Thoracic spine. The following structures could not be adequately visualized: Spine Lumbar spine. Sacral spine. The following structures were documented previously: Head / Neck Lateral ventricles. Choroid plexus. Midline falx. Cavum septi pellucidi. Cerebellum. Cisterna magna. Thalami. Face Lips. Profile. Nose. Orbits. Heart / Thorax RVOT view. LVOT view. 3-vessel view. 3-eyocvy-izkzmcp view. Situs. Bicaval view. Ductal arch view. Interventricular septum. Great vessels. Right lung. Left lung. Diaphragm. Abdomen Cord insertion. Extremities / Skeleton Arms. Hands. Legs. Feet. sex: female. Fetus B: Anatomy The following structures appear normal: Head / Neck Cranium. Abdomen Stomach. Kidneys. Bladder. Spine Cervical spine. Thoracic spine. Lumbar spine. Sacral spine. Extremities / Skeleton Right hand. The following structures were documented previously: Head / Neck Lateral ventricles. Choroid plexus. Midline falx. Cavum septi pellucidi. Cerebellum. Cisterna magna. Thalami. Face Lips. Profile. Nose. Nasal bone. Orbits. Heart / Thorax 4-chamber view. RVOT view. LVOT view. 3-vessel view. 5-bhphsa-fhwonun view. Situs. Aortic arch view. Bicaval view. Ductal arch view. Interventricular septum. Great vessels. Right lung. Left lung. Diaphragm. Abdomen Cord insertion. Genitals. Extremities / Skeleton Arms. Left hand. Legs. Feet. sex: female. Impression ========= Dichorionic-diamnio tic, live, intrauterine at 27w 5d Appropriate size for each twin Normal amniotic fluid volume for each twin No major malformations were seen within the limitations of ultrasound for either twin Incomplete anatomic survey (spine) of twin A due to position Follow-up ======== Follow-up ultrasound in 5 weeks to complete the anatomic survey of twin A, assess growths, and begin weekly testing Coding ====== Procedures [id number]: US Preg Uterus Follow Up. x2 Waddle PACS Anatomical Region Laterality Modality Other 09/24/2024 1:09 PM CDT R Bert Garcia MD [facility] ORDERABLES Edited Result - Final from Last 3 Months Insurance [employer] CARE Member Subscriber Plan / Payer (Ef fective 2021-Present) Name:Yessica Mo Relation to Subscriber:Spouse Name:SOLO MO Date of :1987 (Home) Address: [address] [place] [address] Payer ID:[id number] (NAIC) Type:PPO Address: [place] [phone] [place] [address] Care Teams Hand Router Operator Relationship Specialty Start Date End Date Scooter White DO PCP - General 03/16/22
--- OUTSIDE RECORDS SUMMARY | 2024-11-04 12:44 | XMS_ITS | Clinical Summary ---
Author Organization [facility] Address [address] [facility] [address] [place] [address] Phone Care Team Providers Care Top Spotter Name Role Phone Manda Singh MD Unavailable [phone] Malik Cates MD Unavailable Ulices Marino MD Unavailable Yon Gutierrez MD Primary Care Provider Georgina Fontenot TRANSPORTATION PLANNER, RUBBER DOWN Unavailable [phone] Allergies Active Allergy Reactions Criticality Noted Date [...] Transcribe Orders [facility] [address] [place] [address] Provider, Not On File Low back pain, [...] 97.5 kg (215 lb) 04/19/2023 8:07 AM MALTED MILK MIXER Height 165.1 cm (5' 5) 04/19/2023 8:07 AM MALTED MILK MIXER Body Mass Index 35.78 04/19/2023 8:07 AM MALTED MILK MIXER Plan of Treatment Health Maintenance Due Date Last Done Comments Hepatitis C Virus (HCV) Screening 1993 Human Papillomavirus (HPV) Immunization (1 - 3-dose series) 01/07/2008 Pap Smear 2014 Hepatitis B Immunization (2 of 3 - 19+ 3-dose series) 11/11/2019 10/14/2019 Cervical Cancer Screening (CCS) 2023 HPV/Cotest 2023 SARS-COV-2 Immunization (3 - 2023- season) 2024 08/06/2021, 07/16/2021 Influenza Immunization (Seas on Ended) 2025 01/24/2020, 01/24/2020, 01/24/2020 Td Immunization Every 10 Yea rs (Adults With 1 Tdap) 10/09/2029 10/10/2019 Respiratory [...] this topic Medical Devices Implanted Type Area Electric Tape Slitter Device Identifier Shelf Expiration Date Model / Serial / Lot Tube Ventilation 5mm Carey Triune - [id number] Implanted:Qty: 1 on 11/05/2018 by J[facility] Deng MD at [facility] IMPLANT Left: Ear [employer] 04/06/2020 510-122 / [id number] / [id number] Description:Ear tubes came f rom the same package Tube Ventilation 5mm Carey Triune - [id number] Implanted:Qty: 1 on 11/05/2018 by Jordon Deng MD at [facility] IMPLANT Right: Ear [employer] 04/06/2020 510-122 / [id number] / [id number] Description:Ear tubes came f rom the same package Insurance * Guarantor: [facility] Account Type Relation to Patient Date of Phone Billing Address Institutional Other [address] [place] [address] Care Teams Top Spotter Relationship Specialty Start Date End Date Yon Gutierrez MD [address] [address] PCP - General Family Medicine 06/23/23 Manda Singh MD Obstetrics & Gynecology 02/11/20 Malik Cates MD #[address] [address] Consulting Physician Endocrinology 12/13/21 Ulices Marino MD #[address] [address] Consulting Physician Colon and Rectal Surgery 07/06/22 Georgina Fontenot, TRANSPORTATION PLANNER, RUBBER DOWN [address] [place] [address] Nurse Practitioner Advanced Practice Nurse 09/25/24
--- OUTSIDE RECORDS SUMMARY | 2024-11-04 12:44 | XMS_ITS | Encounter Summary ---
Author Organization [facility] Address [address] [place] [address] Phone Care Team Providers Care Gathering Worker Name Role Phone Manda Singh MD Unavailable [phone] Robby Torres Primary Care Provider [phone] Scooter White DO Primary Care Provider Malik Cates MD Unavailable Ulices Marino MD Unavailable Yon Gutierrez MD Primary Care Provider Georgina Fontenot APRN, [facility] Unavailable [phone] Encounter Details Date Type Department Care Team (Late st Contact Info) Description 04/09/2020 Telephone [facility] [id number] [address] [address] Saud Dalton MD [address] [place] [phone] Social History Tobacco Use Types Packs/Day [...] COVID-19? No / Unsure 03/20/2020 6:06 AM [employer] documented as of this encounter Miscellaneous Notes * Telephone Encounter - Mahnaz Alaniz - 04/09/2020 2:50 PM CST Patient no showed her appointment, left voice message to call the office to reschedule. Sent out a no show letter. [employer] RO[employer]ER documented in this encounter Plan of Treatment Not on file documented as of this encounter Visit Diagnoses Not on filedocumented in this encounter Additional Health Concerns Assessment Noted Time PHQ-9 Depression Total Score: 0 02/11/20 20 12:57 PM CDT documented as of this encounter Care Teams Gathering Worker Relationship Specialty Start Date End Date Robby Torres [address] [place] [address] PCP - General Family Medicine 02/11/20 03/16/21 Scooter White DO [address] [place] [address] [place] [address] PCP - General Internal Medicine 03/17/21 06/22/23 Yon Gutierrez MD [address] [place] [address] [address] PCP - General Family Medicine 06/23/23 Manda Singh MD Obstetrics & Gynecology 02/11/20 Malik Cates MD [address] [phone] Consulting Physician Endocrinology 12/13/21 Ulices Marino MD #[address] [address] Consulting Physician Colon and Rectal Surgery 07/06/22 Georgina Fontenot APRN, LATENT [employer]INGERPRINT EXAMINER [address] [place] [address] Nurse Practitioner Advanced Practice Nurse 09/25/24 documented as of this encounter
--- OUTSIDE RECORDS SUMMARY | 2024-11-04 12:45 | XMS_ITS | Data Portability ---
Author Organization [facility] [place] [facility] Address [address] [facility] [place] [address] Care Team Providers Care Domestic Technician Name Role Phone ZO MORA OTHER Assessment [...] auto diff 2018 019 [facility], [address] [address], [place], [address], 9 06:40:13 ferritin, serum or plasma 2018 019 [facility], [address] [facility], [place], [address], 9 06:40:14 iron + total iron-bindin g capacity (TIBC), serum 2018 019 [facility], [address] [place] [address] [address], [place], [address], 9 06:40:14 HIV 1+2 AB + HIV 1 p24 Ag, qualitative immunoassay , serum 2018 019 [facility], [address], [place], [address], 9 07:12:01 HBsAg (hepatitis B surface Ag), EIA, serum 2018 019 [facility], [address], [place], [address], 9 07:12:02 hepatitis C Ab, signal-to-c utoff, serum or plasma 2018 019 [facility], [address], [place], [address], 9 07:12:01 RPR (rapid plasma reagin), serum 2018 019 [facility], [address], [place], [address], 9 07:12:00 hsv (1+2) igg Ab, serum 2018 019 [facility], [address] [facility], [place], [address], 9 07:12:00 CBC w/ auto diff 2018 019 [facility], [address] [facility], [place], [address], 9 07:11:59 Referral general surgeon referral 2018 019 LANA Moralez MD, [address] [facility] , [facility] [address], [place], [address], 9 12:38:24 ENT referral - Saw Dr. Mora --- need a second opinion. 2018 019 [facility], [address] [facility], [address], [place], [address], 9 17:55:21 Procedures None recorded. Surgeries None recorded. Imaging None recorded. Medication Orders ferrous sulfate 325 mg (65 mg iron) tablet [address] [facility] [address] [facility], [address] [place] [address], [address], 9 11:26:58 Mucinex 600 mg tablet, extended release [address] [facility], [address] [place] [address], [address], 9 00:24:12 ferrous sulfate 325 mg (65 mg iron) tablet [address] [facility], [address] [place] [address], [address], 9 12:48:40 Tessalon Perles 100 mg capsule [address] [facility], [address] [place] [address], [address], 9 00:24:06 Patient TargetsNo targets recorded. Patient Instructions Encounter Date Encounter Id Patient Instructions Last Modified By Organization Details Last Modified Time 07/27/2018 [id number] upper respirator y infection (cold): care instructions [facility] Not available 07/27/2018 13:23:41 08/29/2018 [id number] hemorrhoids: car e instructions Not available 08/29/2018 16:13:52 anemia: care instructions Not available 08/29/2018 18:08:26 09/05/2018 [id number] Acute Sinusitis: Care Instructions Not available 09/05/2018 12:48:40 11/13/2018 [id number] hemorrhoids: car e instructions [facility] Not available 11/27/2018 00:17:15 02/13/2019 [id number] dizziness: care instructions [facility] Not available 02/13/2019 11:26:58 electrocardiogra m interpretation* [facility] Not available 03/13/2019 15:05:29 Reason for Referral ENT Referral for Cervical ly mphadenopathy Saw Dr. Mora --- need a second opinion. Referring Physician: Lucero Sandoval, Family Medicine, Encounter Date: 07/27/2018 General Surgeon Referral for Hemorrhoids Referring Physician: Ricardo Ramirez, SEAL MIXING OPERATOR, Encounter Date: 08/29/2018 Results Created Date Observation Date Name Description Value Unit Range Abnormal Flag Note LastModifiedBy Organization Detail LastModifiedTime 07/04/19 19 07/05/2018 TSH + free T4, serum TSH 3.080 uIU/m L 0.450- 4.500 Not Available [facility] ([facility]) [address] [place], [address], 07/05/2018 09:23:03 07/04/19 19 07/05/2018 TSH + free T4, serum T4,free(dire ct) 1.06 NG/dL 0.82-1 .77 Not Available [facility] ([facility]) [address] [place], [address], 07/05/2018 09:23:03 07/04/19 19 07/04/2018 CBC w/ auto diff WBC 7.2 x10e3 /uL 3.4-10 .8 Not Available [facility] ([facility]) [address] [place], [address], 07/05/2018 09:23:03 07/04/19 19 07/04/2018 CBC w/ auto diff RBC 4.87 x10e6 /uL 3.77-5 .28 Not Available [facility] ([facility]) [address] [place], [address], 07/05/2018 09:23:03 07/04/19 19 07/04/2018 CBC w/ auto diff hemoglobin 11.5 g/dL 11.1-1 5.9 Not Available [facility] ([facility]) [address] [place], [address], 07/05/2018 09:23:03 07/04/19 19 07/04/2018 CBC w/ auto diff hematocrit 36.2 % 34.0-4 6.6 Not Available [facility] ([facility]) [address] [facility] [place], [address], 07/05/2018 09:23:03 07/04/19 19 07/04/2018 CBC w/ auto diff MCV 74 fL 79-97 below low normal Not Available [facility] ([facility]) [address] [facility] [place], [address], 07/05/2018 09:23:03 07/04/19 19 07/04/2018 CBC w/ auto diff MCH 23.6 pg 26.6-3 3.0 below low normal Not Available [facility] ([facility]) [address] [facility] [place], [address], 07/05/2018 09:23:03 07/04/19 19 07/04/2018 CBC w/ auto diff MCHC 31.8 g/dL 31.5-3 5.7 Not Available [facility] ([facility]) [address] [facility] [place], [address], 07/05/2018 09:23:03 07/04/19 19 07/04/2018 CBC w/ auto diff RDW 16.0 % 12.3-1 5.4 above high normal Not Available [facility] ([facility]) [address] [facility] [place], [address], 07/05/2018 09:23:03 07/04/19 19 07/04/2018 CBC w/ auto diff platelets 480 x10e3 /uL 150-37 9 above high normal Not Available [facility] ([facility]) [address] [facility] [place], [address], 07/05/2018 09:23:03 07/04/19 19 07/04/2018 CBC w/ auto diff neutrophils 64 % not estab. Not Available [facility] ([facility]) [address] [facility] [place], [address], 07/05/2018 09:23:03 07/04/19 19 07/04/2018 CBC w/ auto diff lymphs 28 % not estab. Not Available [facility] ([facility]) [address] [facility] [place], [address], 07/05/2018 09:23:03 07/04/19 19 07/04/2018 CBC w/ auto diff monocytes 6 % not estab. Not Available [facility] ([facility]) [address] [facility], [place], [address], 07/05/2018 09:23:03 07/04/19 19 07/04/2018 CBC w/ auto diff eos 1 % not estab. Not Available [facility] ([facility]) [address] [place], [address], 07/05/2018 09:23:03 07/04/19 19 07/04/2018 CBC w/ auto diff basos 1 % not estab. Not Available [facility] ([facility]) [address] [facility], [place], [address], 07/05/2018 09:23:03 07/04/19 19 07/04/2018 CBC w/ auto diff immature cells ARTERIAL EMBALMER Not Available [facility] ([facility]) [address] [facility], [place], [address], 07/05/2018 09:23:03 07/04/19 19 07/04/2018 CBC w/ auto diff neutrophils (absolute) 4.6 x10e3 /uL 1.4-7. 0 Not Available [facility] ([facility]) [address] [place], [address], 07/05/2018 09:23:03 07/04/19 19 07/04/2018 CBC w/ auto diff lymphs (absolute) 2.0 x10e3 /uL 0.7-3. 1 Not Available [facility] ([facility]) [address] [place], [address], 07/05/2018 09:23:03 07/04/19 19 07/04/2018 CBC w/ auto diff monocytes(ab solute) 0.5 x10e3 /uL 0.1-0. 9 Not Available [facility] ([facility]) [address] [facility], [place], [address], 07/05/2018 09:23:03 07/04/19 19 07/04/2018 CBC w/ auto diff eos (absolute) 0.1 x10e3 /uL 0.0-0. 4 Not Available [facility] ([facility]) [address] [facility] [place], [address], 07/05/2018 09:23:03 07/04/19 19 07/04/2018 CBC w/ auto diff baso (absolute) 0.1 x10e3 /uL 0.0-0. 2 Not Available [facility] ([facility]) [address] [facility], [place], [address], 07/05/2018 09:23:03 07/04/19 19 07/04/2018 CBC w/ auto diff immature granulocytes 0 % not estab. Not Available [facility] ([facility]) [address] [facility], [place], [address], 07/05/2018 09:23:03 07/04/19 19 07/04/2018 CBC w/ auto diff immature grans (abs) 0.0 x10e3 /uL 0.0-0. 1 Not Available [facility] ([facility]) [address] [facility], [place], [address], 07/05/2018 09:23:03 07/04/19 19 07/04/2018 CBC w/ auto diff NRBC ARTERIAL EMBALMER Not Available [facility] ([facility]) [address] [place], [address], 07/05/2018 09:23:03 07/04/19 19 07/04/2018 CBC w/ auto diff hematology comments: ARTERIAL EMBALMER Not Available [facility] ([facility]) [address] [facility], [place], [address], 07/05/2018 09:23:03 07/04/19 19 07/05/2018 CMP, serum or plasm a glucose 90 mg/dL 65-99 Not Available [facility] ([facility]) [address] [place], [address], 07/05/2018 09:23:04 07/04/19 19 07/05/2018 CMP, serum or plasm a BUN 9 mg/dL 6-20 Not Available [facility] ([facility]) [address] [place], [address], 07/05/2018 09:23:04 07/04/19 19 07/05/2018 CMP, serum or plasm a creatinine 0.66 mg/dL 0.57-1 .00 Not Available [facility] ([facility]) [address] [place], [address], 07/05/2018 09:23:04 07/04/19 19 07/05/2018 CMP, serum or plasm a eGFR if nonafricn AM 123 mL/mi n/1.7 3 >59 Not Available [facility] ([facility]) [address] [place], [address], 07/05/2018 09:23:04 07/04/19 19 07/05/2018 CMP, serum or plasm a eGFR if africn AM 142 mL/mi n/1.7 3 >59 Not Available [facility] ([facility]) [address] [place], [address], 07/05/2018 09:23:04 07/04/19 19 07/05/2018 CMP, serum or plasm a BUN/creatini ne ratio 14 9-23 Not Available [facility] ([facility]) [address] [place], [address], 07/05/2018 09:23:04 07/04/19 19 07/05/2018 CMP, serum or plasm a sodium 139 mmol/ L 134-14 4 Not Available [facility] ([facility]) [address] [place], [address], 07/05/2018 09:23:04 07/04/1907/05/2018 CMP, serum or plasm a potassium 4.4 mmol/ L 3.5-5. 2 Not Available [facility] ([facility]) [address] [facility] [place], [address], 07/05/2018 09:23:04 07/04/1907/05/2018 CMP, serum or plasm a chloride 102 mmol/ L 96-106 Not Available [facility] ([facility]) [address] [facility] [place], [address], 07/05/2018 09:23:04 07/04/1907/05/2018 CMP, serum or plasm a carbon dioxide, total 23 mmol/ L 20-29 Not Available [facility] ([facility]) [address] [facility] [place], [address], 07/05/2018 09:23:04 07/04/1907/05/2018 CMP, serum or plasm a calcium 9.7 mg/dL 8.7-10 .2 Not Available [facility] ([facility]) [address] [facility] [place], [address], 07/05/2018 09:23:04 07/04/19 19 07/05/2018 CMP, serum or plasm a protein, total 8.1 g/dL 6.0-8. 5 Not Available [facility] ([facility]) [address] [facility] [place], [address], 07/05/2018 09:23:04 07/04/1907/05/2018 CMP, serum or plasm a albumin 4.6 g/dL 3.5-5. 5 Not Available [facility] ([facility]) [address] [facility] [place], [address], 07/05/2018 09:23:04 07/04/1907/05/2018 CMP, serum or plasm a globulin, total 3.5 g/dL 1.5-4. 5 Not Available [facility] ([facility]) [address] [facility] [place], [address], 07/05/2018 09:23:04 07/04/1907/05/2018 CMP, serum or plasm a A/G ratio 1.3 1.2-2. 2 Not Available [facility] ([facility]) [address] [facility] [place], [address], 07/05/2018 09:23:04 07/04/1907/05/2018 CMP, serum or plasm a bilirubin, total 0.3 mg/dL 0.0-1. 2 Not Available [facility] ([facility]) [address] [facility] [place], [address], 07/05/2018 09:23:04 07/04/1907/05/2018 CMP, serum or plasm a alkaline phosphatase 68 IU/L 39-117 Not Available [facility] ([facility]) [address] [facility] [place], [address], 07/05/2018 09:23:04 07/04/1907/05/2018 CMP, serum or plasm a AST (SGOT) 20 IU/L 0-40 Not Available [facility] ([facility]) [address] [facility] [place], [address], 07/05/2018 09:23:04 07/04/1907/05/2018 CMP, serum or plasm a ALT (SGPT) 15 IU/L 0-32 Not Available [facility] ([facility]) [address] [facility] [place], [address], 07/05/2018 09:23:04 07/04/1907/05/2018 cytom egalo virus (cmv) igg+i gm Ab, serum cytomegalovi yung (CMV) Ab, IgG <0.60 U/mL 0.00-0 .59 Negat hayde <0.60 Equiv ocal 0.60 - 0.69 Posit hayde >0.69 Not Available [facility] ([facility]) [address] [facility] [place], [address], 07/05/2018 09:23:04 07/04/19 19 07/05/2018 cytom egalo virus (cmv) igg+i gm Ab, serum cytomegalovi yung (CMV) Ab, IgM <30.0 AU/mL 0.0-29 .9 Negat hayde <30.0 Equiv ocal 30.0 - 34.9 Posit hayde >34.9 A posit hayde resul t is gener ally indic ative of acute infec tion, react ivati on or persi stent IgM produ ction . Not Available [facility] ([facility]) [address] [facility] [place], [address], 07/05/2018 09:23:04 07/04/1907/05/2018 RPR (rapi d plasm a reagi n), serum RPR Non Reacti ve non reacti ve Not Available [facility] ([facility]) [address] [facility] [place], [address], 07/05/2018 09:23:05 07/04/1907/05/2018 heter ophil e Ab, quali tativ e latex agglu tinat ion, serum mono qual w/rflx qn Negati ve negati ve The sensi tivit y of Heter ophil e antib srinivasan testi ng is 80-90 %. Epste in [place] IgM testi ng offer s highe r sensi tivit y. Not Available [facility] ([facility]) [address] [facility] [place], [address], 07/05/2018 09:23:06 08/30/1908/30/2018 CBC w/ auto diff WBC 7.4 x10e3 /uL 3.4-10 .8 Not Available [facility] ([facility]) [address] [place], [address], 08/30/2018 07:11:59 08/30/19 19 08/30/2018 CBC w/ auto diff RBC 4.51 x10e6 /uL 3.77-5 .28 Not Available [facility] ([facility]) [address] [place], [address], 08/30/2018 07:11:59 08/30/19 19 08/30/2018 CBC w/ auto diff hemoglobin 11.0 g/dL 11.1-1 5.9 below low normal Not Available [facility] ([facility]) [address] [place], [address], 08/30/2018 07:11:59 08/30/1908/30/2018 CBC w/ auto diff hematocrit 34.2 % 34.0-4 6.6 Not Available [facility] ([facility]) [address] [place], [address], 08/30/2018 07:11:59 08/30/19 19 08/30/2018 CBC w/ auto diff MCV 76 fL 79-97 below low normal Not Available [facility] ([facility]) [address] [place], [address], 08/30/2018 07:11:59 08/30/19 19 08/30/2018 CBC w/ auto diff MCH 24.4 pg 26.6-3 3.0 below low normal Not Available [facility] ([facility]) [address] [place], [address], 08/30/2018 07:11:59 08/30/1908/30/2018 CBC w/ auto diff MCHC 32.2 g/dL 31.5-3 5.7 Not Available [facility] ([facility]) [address] [place], [address], 08/30/2018 07:11:59 08/30/19 19 08/30/2018 CBC w/ auto diff RDW 15.6 % 12.3-1 5.4 above high normal Not Available [facility] ([facility]) [address] [facility] [place], [address], 08/30/2018 07:11:59 08/30/19 19 08/30/2018 CBC w/ auto diff platelets 389 x10e3 /uL 150-37 9 above high normal Not Available [facility] ([facility]) [address] [facility] [place], [address], 08/30/2018 07:11:59 08/30/19 19 08/30/2018 CBC w/ auto diff neutrophils 59 % not estab. Not Available [facility] ([facility]) [address] [facility], [place], [address], 08/30/2018 07:11:59 08/30/19 19 08/30/2018 CBC w/ auto diff lymphs 31 % not estab. Not Available [facility] ([facility]) [address] [facility], [place], [address], 08/30/2018 07:11:59 08/30/19 19 08/30/2018 CBC w/ auto diff monocytes 8 % not estab. Not Available [facility] ([facility]) [address] [facility] [place], [address], 08/30/2018 07:11:59 08/30/19 19 08/30/2018 CBC w/ auto diff eos 1 % not estab. Not Available [facility] ([facility]) [address] [facility] [place], [address], 08/30/2018 07:11:59 08/30/1908/30/2018 CBC w/ auto diff basos 1 % not estab. Not Available [facility] ([facility]) [address] [facility], [place], [address], 08/30/2018 07:11:59 08/30/1908/30/2018 CBC w/ auto diff immature cells ARTERIAL EMBALMER Not Available [facility] ([facility]) [address] [facility], [place], [address], 08/30/2018 07:11:59 08/30/19 19 08/30/2018 CBC w/ auto diff neutrophils (absolute) 4.4 x10e3 /uL 1.4-7. 0 Not Available [facility] ([facility]) [address] [place], [address], 08/30/2018 07:11:59 08/30/1908/30/2018 CBC w/ auto diff lymphs (absolute) 2.3 x10e3 /uL 0.7-3. 1 Not Available [facility] ([facility]) [address] [place], [address], 08/30/2018 07:11:59 08/30/1908/30/2018 CBC w/ auto diff monocytes(ab solute) 0.6 x10e3 /uL 0.1-0. 9 Not Available [facility] ([facility]) [address] [place], [address], 08/30/2018 07:11:59 08/30/1908/30/2018 CBC w/ auto diff eos (absolute) 0.1 x10e3 /uL 0.0-0. 4 Not Available [facility] ([facility]) [address] [place], [address], 08/30/2018 07:11:59 08/30/1908/30/2018 CBC w/ auto diff baso (absolute) 0.0 x10e3 /uL 0.0-0. 2 Not Available [facility] ([facility]) [address] [place], [address], 08/30/2018 07:11:59 08/30/1908/30/2018 CBC w/ auto diff immature granulocytes 0 % not estab. Not Available [facility] ([facility]) [address] [place], [address], 08/30/2018 07:11:59 08/30/1908/30/2018 CBC w/ auto diff immature grans (abs) 0.0 x10e3 /uL 0.0-0. 1 Not Available [facility] ([facility]) [address] [facility], [place], [address], 08/30/2018 07:11:59 08/30/1908/30/2018 CBC w/ auto diff NRBC ARTERIAL EMBALMER Not Available [facility] ([facility]) [address] [facility], [place], [address], 08/30/2018 07:11:59 08/30/1908/30/2018 CBC w/ auto diff hematology comments: ARTERIAL EMBALMER Not Available [facility] ([facility]) [address] [facility], [place], [address], 08/30/2018 07:11:59 08/30/1908/30/2018 hsv (1+2) igg Ab, [...] willy to HSV-1 . Not Available [facility] ([facility]) [address] [facility], [place], [address], 08/30/2018 07:12:00 08/30/1908/30/2018 hsv (1+2) igg Ab, [...] willy to HSV-2 . Not Available [facility] ([facility]) [address] [facility], [place], [address], 08/30/2018 07:12:00 08/30/19 19 08/30/2018 RPR (rapi d plasm a reagi n), serum RPR Non Reacti ve non reacti ve Not Available [facility] ([facility]) [address] [facility], [place], [address], 08/30/2018 07:12:00 08/30/1908/30/2018 HIV 1+2 AB + HIV 1 p24 Ag, quali tativ e immun oassa y, serum HIV screen 4TH generation wrfx Non Reacti ve non reacti ve Not Available [facility] ([facility]) [address] [facility], [place], [address], 08/30/2018 07:12:01 08/30/19 19 08/30/2018 hepat itis C Ab, signa l-to- cutof f, serum or plasm a HCV Ab <0.1 s/co_ ratio 0.0-0. 9 Not Available [facility] ([facility]) [address] [facility], [place], [address], 08/30/2018 07:12:01 08/30/1908/30/2018 hepat itis C Ab, signa l-to- cutof f, serum or plasm a comment: Commen t Non react hayde HCV antib srinivasan scree n is consi stent with no HCV infec tion, unles s recen t infec tion is suspe cted or other evide nce exist s to indic ate HCV infec tion. Not Available [facility] ([facility]) [address] [facility], [place], [address], 08/30/2018 07:12:01 08/30/1908/30/2018 HBsAg (hepa titis B surfa ce Ag), EIA, serum HBsAg screen Negati ve negati ve Not Available [facility] ([facility]) [address] [facility], [place], [address], 08/30/2018 07:12:02 02/14/2002/14/2019 CBC w/ auto diff WBC 7.5 x10e3 /uL 3.4-10 .8 Not Available [facility] ([facility]) [address] [facility], [place], [address], 02/14/2019 06:40:13 02/14/2002/14/2019 CBC w/ auto diff RBC 4.34 x10e6 /uL 3.77-5 .28 Not Available [facility] ([facility]) [address] [facility] [place], [address], 02/14/2019 06:40:13 02/14/2002/14/2019 CBC w/ auto diff hemoglobin 11.1 g/dL 11.1-1 5.9 Not Available [facility] ([facility]) [address] [facility], [place], [address], 02/14/2019 06:40:13 02/14/2002/14/2019 CBC w/ auto diff hematocrit 34.2 % 34.0-4 6.6 Not Available [facility] ([facility]) [address] [facility], [place], [address], 02/14/2019 06:40:13 02/14/2002/14/2019 CBC w/ auto diff MCV 79 fL 79-97 Not Available [facility] ([facility]) [address] [facility] [place], [address], 02/14/2019 06:40:13 02/14/2002/14/2019 CBC w/ auto diff MCH 25.6 pg 26.6-3 3.0 below low normal Not Available [facility] ([facility]) [address] [facility], [place], [address], 02/14/2019 06:40:13 02/14/2002/14/2019 CBC w/ auto diff MCHC 32.5 g/dL 31.5-3 5.7 Not Available [facility] ([facility]) [address] [facility], [place], [address], 02/14/2019 06:40:13 02/14/2002/14/2019 CBC w/ auto diff RDW 15.0 % 12.3-1 5.4 Not Available [facility] ([facility]) [address] [facility] [place], [address], 02/14/2019 06:40:13 02/14/2002/14/2019 CBC w/ auto diff platelets 372 x10e3 /uL 150-45 0 Not Available [facility] ([facility]) [address] [facility] [place], [address], 02/14/2019 06:40:13 02/14/2002/14/2019 CBC w/ auto diff neutrophils 61 % not estab. Not Available [facility] ([facility]) [address] [facility] [place], [address], 02/14/2019 06:40:13 02/14/2002/14/2019 CBC w/ auto diff lymphs 28 % not estab. Not Available [facility] ([facility]) [address] [facility] [place], [address], 02/14/2019 06:40:13 02/14/2002/14/2019 CBC w/ auto diff monocytes 8 % not estab. Not Available [facility] ([facility]) [address] [facility] [place], [address], 02/14/2019 06:40:13 02/14/2002/14/2019 CBC w/ auto diff eos 2 % not estab. Not Available [facility] ([facility]) [address] [facility] [place], [address], 02/14/2019 06:40:13 02/14/2002/14/2019 CBC w/ auto diff basos 1 % not estab. Not Available [facility] ([facility]) [address] [facility] [place], [address], 02/14/2019 06:40:13 02/14/2002/14/2019 CBC w/ auto diff immature cells ARTERIAL EMBALMER Not Available [facility] ([facility]) [address] [facility] [place], [address], 02/14/2019 06:40:13 02/14/2002/14/2019 CBC w/ auto diff neutrophils (absolute) 4.7 x10e3 /uL 1.4-7. 0 Not Available [facility] ([facility]) [address] [facility] [place], [address], 02/14/2019 06:40:13 02/14/2002/14/2019 CBC w/ auto diff lymphs (absolute) 2.1 x10e3 /uL 0.7-3. 1 Not Available [facility] ([facility]) [address] [facility] [place], [address], 02/14/2019 06:40:13 02/14/2002/14/2019 CBC w/ auto diff monocytes(ab solute) 0.6 x10e3 /uL 0.1-0. 9 Not Available [facility] ([facility]) [address] [facility] [place], [address], 02/14/2019 06:40:13 02/14/2002/14/2019 CBC w/ auto diff eos (absolute) 0.1 x10e3 /uL 0.0-0. 4 Not Available [facility] ([facility]) [address] [place], [address], 02/14/2019 06:40:13 02/14/2002/14/2019 CBC w/ auto diff baso (absolute) 0.0 x10e3 /uL 0.0-0. 2 Not Available [facility] ([facility]) [address] [facility], [place], [address], 02/14/2019 06:40:13 02/14/2002/14/2019 CBC w/ auto diff immature granulocytes 0 % not estab. Not Available [facility] ([facility]) [address] [facility], [place], [address], 02/14/2019 06:40:13 02/14/2002/14/2019 CBC w/ auto diff immature grans (abs) 0.0 x10e3 /uL 0.0-0. 1 Not Available [facility] ([facility]) [address] [place] [address], [place], [address], 02/14/2019 06:40:13 02/14/2002/14/2019 CBC w/ auto diff NRBC ARTERIAL EMBALMER Not Available [facility] ([facility]) [address] [place] [address], [place], [address], 02/14/2019 06:40:13 02/14/2002/14/2019 CBC w/ auto diff hematology comments: ARTERIAL EMBALMER Not Available [facility] ([facility]) [address] [facility], [place], [address], 02/14/2019 06:40:13 02/14/2002/14/2019 iron + total iron- leta ng capac ity (TIBC ), serum iron bind.cap.(TI BC) 353 ug/dL 250-45 0 Not Available [facility] ([facility]) [address] [place], [address], 02/14/2019 06:40:14 02/14/2002/14/2019 iron + total iron- leta ng capac ity (TIBC ), serum UIBC 336 ug/dL 131-42 5 Not Available [facility] ([facility]) [address] [place] [address], [address], 02/14/2019 06:40:14 02/14/2002/14/2019 iron + total iron- leta ng capac ity (TIBC ), serum iron 17 ug/dL 27-159 below low normal Not Available [facility] ([facility]) [address] [facility], [place], [address], 02/14/2019 06:40:14 02/14/20 19 02/14/2019 iron + total iron- leta ng capac ity (TIBC ), serum iron saturation 5 % 15-55 alert low Not Available [facility] ([facility]) [address] [facility], [place], [address], 02/14/2019 06:40:14 02/14/2002/14/2019 cristina tin, serum or plasm a ferritin, serum 7 NG/mL 15-150 below low normal Not Available [facility] ([facility]) [address] [facility], [place], [address], 02/14/2019 06:40:14 07/04/19 19 07/04/2018 XR, chest No observ ation record ed. [email or web address] [address] [place], [address], 07/06/2018 16:35:07 08/16/19 19 08/09/2018 CT, neck, soft tissu e, w/ contr ast No observ ation record ed. [address] [place], [address], 11/27/2018 00:09:00 08/17/19 19 08/16/2018 CT, sinus es, w/o contr ast No observ ation record ed. [address] [place], [address], 08/16/2018 13:21:28 Result Notes None recorded. Problems Name Problem SNOMED Code Status Onset Date Resolution Date Notes Provider Name and Address Organization Details Recorded Time Disorder of thyroid gland 77331039 Completed 201811/26/2018 DIONNE New 9 00:12:22 Cervical lymphade nopathy 461661697 Active 2018 [facility] New 9 11:15:19 Upper respirat ory infectio n 46502051 Completed 201811/13/2018 [place] - [facility] 9 11:05:53 Mean corpuscu lar volume below referenc e range 685836887 Active 2018 [place] [facility] 9 12:49:50 Acute sinusiti s 96315479 Completed 201811/13/2018 [place] [facility] 9 11:05:49 History of Helicoba cter pylori infectio n 62034317071 243247 Active 2018 GI [place] [facility] 9 00:05:39 Chronic gastriti s 1902568 Active 2018 EGD - H pylori, GI [place] [facility] 9 00:06:03 Hemorrho ids 03328060 Active 2018 Gen sx planning for hemorrho idectomy [place] [facility] 9 00:06:27 Dizzines s 564435664 Active 2018 [place] [facility] 9 11:29:10 Infectiv e vaginiti s 302064369 Active Radha Garcia [place] [facility] 6 11:25:47 Infectiv e vaginiti s 277496139 Completed Shahrzad Barrera [place] [facility] 5 09:18:25 Maternal care for diminish ed movement s Active Radha [place] [facility] 6 11:25:47 Maternal care for diminish ed movement s Completed Shahrzad Barrera [place] [facility] 5 09:18:25 Breastfe eding painful 378462601 Active Radha Lay[place] [facility] 6 11:25:47 Pain in pelvis 69585694 Active Radha [place] [facility] 6 11:25:47 Vaginal discharg e 507440846 Active white Radha moreno, [facility] 6 11:25:47 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 Procedures Surgical History Date Name Laterality Status Provider Name and Address Organization Details Recorded Time 05/08/19 16 Cholecystectomy completed Radha Garcia [facility] 11/03/2015 11:25:48 01/15/20 15 IUD Insertion completed Ricardo Box [facility] 01/14/2015 12:23:57 04/18/20 12 Date of Last Pap Smear completed Mily Parsons MA [facility] 05/06/2014 16:14:24 05/08/19 10 Appendectomy completed Maida Do MA [facility] 06/17/2014 11:12:04 Imaging Results None recorded. Procedure Notes None recorded. Medical Equipment None [...] Updated DateTime 9 162.56 cm 36.7 kg/m2 25542.0 4 g 97.9 [degF] 16 /min 76 /min 124 mm[Hg] 86 mm[Hg] Jenelle Groves [place] - [facility] 9 12:24:37 Date Recorded Body height Body mass index (BMI) Body weight Systolic blood pressure Diastolic blood pressure Provider Name and Address Organization Details Last Updated DateTime 08/29/2018 162.56 cm 36.2 kg/m2 18381.99 g 130 mm[Hg] 94 mm[Hg] Shahrzad Barrera MA [facility] 9 11:38:34 Date Recorded Body height Body mass index (BMI) Body weight Body temperature Heart rate Respiratory rate Systolic blood pressure Diastolic blood pressure Provider Name and Address Organization Details Last Updated DateTime 9 162.56 cm 36 kg/m2 14210.6 1 g 98.3 [degF] 84 /min 20 /min 132 mm[Hg] 84 mm[Hg] Jenelle Groves MA [facility] 9 12:15:41 Date Recorded Body height Body mass index (BMI) Body weight Body temperature Heart rate Respiratory rate Systolic blood pressure Diastolic blood pressure Provider Name and Address Organization Details Last Updated DateTime 9 162.56 cm 35.5 kg/m2 57850.9 7 g 98.3 [degF] 70 /min 18 /min 130 mm[Hg] 80 mm[Hg] Jenelle Groves MA [facility] 9 10:43:45 Date Recorded Body height Body mass index (BMI) Body weight Heart rate Respiratory rate Body temperature Systolic blood pressure Diastolic blood pressure Provider Name and Address Organization Details Last Updated DateTime 9 162.56 cm 36.3 kg/m2 16461.7 9 g 86 /min 20 /min 98.3 [degF] 130 mm[Hg] 82 mm[Hg] Jenelle Groves MA [facility] 9 11:02:19 Social History Question Answer Notes LastModified by Organizat ion Details LastModified Time Tobacco Smoking Status Never Smoker Maida Do MA null, [facility] 06/17/2014 11:12:04 Do You Have An Advance [...] Information not available 06/17/2014 Marital Status [place] [id number] Informatio n not available 06/17/2014 What Was [...] SNOMED-CT Code Diagnosis ICD10 Code Diagnosis Note [id number] MD Guilherme Weaver ([facility]) [address] [facility] [place] [address] 05/06/2014 15:15:04 05/07/2014 13:43:54 91026681 test positive [id number] Joan Blas [facility] Guilherme Husain ([facility]) [address] [facility] [place] [address] 05/22/2014 14:23:39 05/22/2014 15:25:47 [id number] MD Guilherme Roldan ([facility]) [address] [facility] [place] [address] 06/17/2014 10:44:30 06/17/2014 15:08:09 [id number] MD Guilherme Roldan ([facility]) [address] [place] [address] 07/15/2014 10:26:03 07/16/2014 09:23:26 Normal [id number] MD Guilherme Weaver ([facility]) [address] [place] [address] 08/12/2014 09:35:12 08/12/2014 12:42:08 Normal [id number] MD Guilherme Weaver ([facility]) [address] [place] [address] 08/26/2014 11:56:11 08/27/2014 16:10:13 [id number] MD Guilherme Weaver ([facility]) [address] [facility] [place] [address] 09/09/2014 14:42:01 09/09/2014 15:30:17 [id number] MD Guilherme Weaver ([facility] 122) [address] [facility] [place] [address] 09/23/2014 09:49:09 09/23/2014 15:23:49 [id number] MD Guilherme Weaver ([facility] 122) [address] [facility] [place] [address] 10/07/2014 10:59:01 10/07/2014 11:38:07 [id number] MD Guilherme Weaver ([facility] 122) [address] [facility] [place] [address] 10/21/2014 09:36:51 10/23/2014 12:51:20 [id number] MD Guilherme Weaver ([facility] 122) [address] [facility] [place] [address] 11/04/2014 09:43:59 11/04/2014 14:45:01 [id number] Normal [id number] MD Guilherme Weaver ([facility] 122) [address] [facility] [place] [address] 11/11/2014 11:18:25 11/11/2014 14:54:02 [id number] Maternal c are for diminished movements [id number] MD Guilherme Weaver ([facility] 122) [address] [place] [address] 11/18/2014 10:46:59 11/18/2014 11:58:55 [id number] MD Guilherme Weaver ([facility] 122) [address] [place] [address] 11/24/2014 08:49:50 11/24/2014 10:29:51 [id number] MD Guilherme Weaver ([facility] 122) [address] [place] [address] 12/24/2014 09:05:47 12/24/2014 12:04:57 care [id number] MD Guilherme Weaver Womens ([facility]) [address] [facility] [place] [address] 01/14/2015 11:47:27 01/14/2015 12:33:02 care [id number] Uses contraception 86115408 [id number] MD Guilherme Weaver Womens ([facility]) [address] [facility] [place] [address] 01/19/2015 15:46:51 01/20/2015 09:49:17 IUD check 302803470 [id number] MD Guilherme Weaver Womens ([facility]) [address] [facility] [place] [address] 02/11/2015 10:38:39 02/18/2015 18:08:10 IUD check 378563723 Z30.431 [id number] Joan Blas [facility] Guilherme Womens ([facility] 122) [address] [facility] [place] [address] 11/03/2015 11:00:12 11/03/2015 14:33:42 detection examination 68824438 Z32.00 IUD check 202263886 Z30. 131 [id number] MD Guilherme HURTADO 14 IM [address] [facility] [place] [address] 07/04/2018 09:50:09 07/04/2018 16:26:43 Cervical lymphadenopathy 413343422 R59.0 Had a cough since 02/2018, on and off No traveling. No cat. Weight stable overall. Fatigue - despite sleeping. No dental issues. No focal weakness. Sweaty at times. Irregular periods. Neuro intact. ENT will do US +/- biopsy soon. Labs. Check for mono, syphilis, CMV, CXR. RTC 3mo Disorder o f thyroid gland 18126946 E07.9 Had a cough since 02/2018, on and off. Check TSH [id number] MD Guilherme HURTADO 14 IM [address] [facility] [place] [address] 07/27/2018 12:09:33 07/31/2018 15:49:44 Cervical lymphadenopathy 176105965 R59.0 Had a cough since 02/2018, on [...] second ENT opinion. Upper resp iratory infection 57139580 J06.9 Strept and Flu negative. Exam unremarkab le. Conservati ve management . [id number] MD Guilherme Chambers 14 OB [address] [facility] [place] [address] 08/29/2018 11:23:12 08/30/2018 09:21:21 Gynecologic examination 56195184 Z01.419 CBE and pelvic exam performedP t is on her menstrual cycle, will RTC for pap smear Venereal d isease screening 214016465 Z11.3 Anemia 522635949 D64.9 Hemorrhoids 37169918 K64 .9 [id number] MD Guilherme HURTADO 14 IM [address] [facility] [place] [address] 09/05/2018 12:08:49 09/06/2018 10:44:23 Acute sinusitis 13092914 J01.90 4 days, worsening coughs, chest congestion . Exam sinusitis. Already on antihistam althea, PPI, Augmentin with ENT. Try home Flonase, add mucinex. Mean corpu scular volume below reference range 860368235 R71.8 MCV still low with Weighter. Heavy periods on paraguard with miller first , still heavy. FeS - taking two tab now. Inc to three - RTC 2mo for ferritin check. [id number] MD Guilherme HURTADO 14 IM [address] [facility] [place] [address] 11/13/2018 10:37:12 11/27/2018 11:36:00 Cervical lymphadenopathy 793320130 R59.0 06/2018: Had a cough since 02/2018, [...] done biopsy - result benign. Chronic gastritis 583165 9 K29.50 Followed by GI.Chronic gastritic, H pylori infection - pt was treated. Per pt, her esophagus was also dilated. Hemorrhoids 42477584 K64 .9 Followed by Gen sx - candidate for hemorrhoid ectomy. History of Helicobacter pylori infection 5858058088 [id number] Z86.19 Followed by GI - treated [id number] MD Guilherme HURTADO 14 IM [address] [facility] [address] [place] [address] 02/13/2019 10:52:03 02/14/2019 08:35:16 Dizziness 455149178 R42 Thyroid was low with Weighter recently - pt will be rechecked by [...] None Recorded Advance Directives Directive N: Payers Insurance Date Sequence Insurance Name Policy Number Policy Steele Covered Member ID Steele Member ID Guarantor Name 09/05/2018 1 [place] [employer] [place] [employer] Yessica Young [id number] Yessica Mo 01/08/2019 1 [facility] (MEDICAID HMO) [facility] Yessica Young [id number] Yessica Mo 03/12/2019 2 [place] Yessica Ray [id number] Yessica Corzine 11/30/2020 1 [facility] [id number] Luis Antonio Mo [id number] Yessica Corzine 01/19/2015 1 [place] Yessica Ray [id number] Yessica Corzine 11/03/2015 1 [facility] (MEDICAID HMO) [id number] Yessica Ray [id number] Yessica Corzine 06/19/2018 1 *SELF PAY* Me verdugo Corzine 01/08/2019 SLIDING FEE SCHEDULE - DISCOUNT Yessica Corzine Notes Date Note Type Note [...] LN - pt wants a second opinion Luceor moreno, [place] - [facility] 07/31/2018 15:32:25 08/29/2018 text/html Annual GYNReport ed [...] PMDD Ricardo Ramirez MD Attn: Accounting,[address] [place], [address], [facility] 08/29/2018 16:15:04 09/05/2018 text/html 23yo female is h ere for coughs. Coughs Congested chest 4 days of increase Wheeze Sore throat No fever, chills, muscle ache Saw ENT - on Tessalon perles, Augmentin for 1mo, Probiotic, Omeprazole She is on Minerva and Benadryl Lucero Sandoval tiffanie [facility] 09/05/2018 12:50:10 11/13/2018 text/html 23yo female is [...] Gen sx Was planning for hemorrhoidectomy Lucero Sandoval tiffanie [facility] 11/27/2018 00:24:29 02/13/2019 text/html 24yo female is h ere for dizziness. 1.5moIUD removed 01/2019. Not helpful with heavy period and pt planning for . 7 days - heavy first 2-3 days, 1 pad per hour. Taking FeS 325mg TID at least since 09/2018 was with positional change, now even with standing / at rest Not a/w with meals Denies room spinning. Lucero Vacamary [place]no [place] Jeremy [facility] 02/13/2019 11:29:52 OBGyn Episode Ob Episode Information Episode Created Date Number of Fetuses Patient Bloodtype Patient rh Status Prepregnancy Weight lbs Domestic Partner Domestic Partner Phone Father Name Order Entry Specialist Status 05/06/20 14 1 A Positive Luis Antonio Mo CLOSED Fetus Data First Name Last Name Admitted to NICU Weight (g) Sex Living Outcome Pediatric Complications Fetus ID Race Codes Race Delivery Type CHASITY ESCAMILLA false 4309.12 4 F Full Term 5386 2106-3 White Vaginal Problems Problem Notes Problem Name Start Date End Date Resolution Snomed Code Not e Infective vaginitis 689116883 Maternal care for diminished movements 203246940 Darren Calculation Initial Darren Date Initial Exam [...] Type Weight in lbs Pre/Post Dialysis Refused 203.924571395773 BP Diastolic BP Location Tested BP Systolic BP Type 64 L arm 118 sitting Fetus Heart Rate Present Fetus Movement Comments Flowsheet Date 05/22/2014 Mckinney Score Blood Edema Fundus Height Fundus Units Glucose Ketones Leukocytes Nitrite Labor Signs Protein Cervic Dilation Cervic Effacement Cervic Station neg none none negative neg Type Weight in lbs Pre/Post Dialysis Refused 198.530065965069 BP Diastolic BP Location Tested BP Systolic [...] Type Weight in lbs Pre/Post Dialysis Refused 164.74646460678 BP Diastolic BP Location Tested BP Systolic [...] Type Weight in lbs Pre/Post Dialysis Refused 201.537897649143 BP Diastolic BP Location Tested BP Systolic [...] Type Weight in lbs Pre/Post Dialysis Refused 203.40564330198 BP Diastolic BP Location Tested BP Systolic BP Type 68 128 Fetus Heart Rate Present A 142 Present Fetus Movement A Yes Comments 28 weeks today Flowsheet Date 08/26/2014 Mckinney Score Blood Edema Fundus Height Fundus Units Glucose Ketones Leukocytes Nitrite Labor Signs Protein Cervic Dilation Cervic Effacement Cervic Station 26 cm none Type Weight in lbs Pre/Post Dialysis Refused 203.64339074628 BP Diastolic BP Location Tested BP Systolic BP Type 74 L arm 122 sitting Fetus Heart Rate Present A 146 Present Fetus Movement A Yes Comments Flowsheet Date 09/09/2014 Mckinney Score Blood Edema Fundus Height Fundus Units Glucose Ketones Leukocytes Nitrite Labor Signs Protein Cervic Dilation Cervic Effacement Cervic Station 30 cm none Type Weight in lbs Pre/Post Dialysis Refused 206.172848911010 BP Diastolic BP Location Tested BP Systolic BP Type 60 L arm 120 sitting Fetus Heart Rate Present A 154 Present Fetus Movement A Yes Comments Flowsheet Date 09/23/2014 Mckinney Score Blood Edema Fundus Height Fundus Units Glucose Ketones Leukocytes Nitrite Labor Signs Protein Cervic Dilation Cervic Effacement Cervic Station 32 cm none Type Weight in lbs Pre/Post Dialysis Refused 205.648984386961 BP Diastolic BP Location Tested BP Systolic BP Type 68 110 Fetus Heart Rate Present A 155 Fetus Movement A Yes Comments Flowsheet Date 10/07/2014 Mckinney Score Blood Edema Fundus Height Fundus Units Glucose Ketones Leukocytes Nitrite Labor Signs Protein Cervic Dilation Cervic Effacement Cervic Station none Type Weight in lbs Pre/Post Dialysis Refused 208.903091818617 BP Diastolic BP Location Tested BP Systolic BP Type 78 110 sitting Fetus Heart Rate Present A 154 Fetus Movement A Yes Comments growth scan ordered Flowsheet Date 10/21/2014 Mckinney Score Blood Edema Fundus Height Fundus Units Glucose Ketones Leukocytes Nitrite Labor Signs Protein Cervic Dilation Cervic Effacement Cervic Station 37 cm none Type Weight in lbs Pre/Post Dialysis Refused 213.612745313602 BP Diastolic BP Location Tested BP Systolic BP Type 72 118 sitting Fetus Heart Rate Present A 140 Present Fetus Movement A Yes Comments gbs today. Flowsheet Date 11/04/2014 Mckinney Score Blood Edema Fundus Height Fundus Units Glucose Ketones Leukocytes Nitrite Labor Signs Protein Cervic Dilation Cervic Effacement Cervic Station 37 cm none Type Weight in lbs Pre/Post Dialysis Refused 216.240971140464 BP Diastolic BP Location Tested BP Systolic [...] Type Weight in lbs Pre/Post Dialysis Refused 217.273113757430 BP Diastolic BP Location Tested BP Systolic [...] Type Weight in lbs Pre/Post Dialysis Refused 221.808894241212 BP Diastolic BP Location Tested BP Systolic [...] Type Weight in lbs Pre/Post Dialysis Refused 223.361014435166 BP Diastolic BP Location Tested BP Systolic [...] At Estimated Date of Delivery false Thalassemia (Iraqi, Azerbaijani, Mediterranean, Or Background): MCV < 80 false Neural Tube Defect (Meningom yelocele, Spina Bifida, Or Anencephaly) false Congenital Heart Defect false Down Syndrome false Curt-Sachs (eg, Yarsanism, Cajun , Montserratian-Colombian) false Yung Disease false Sickle Cell Disease Or Trait () false Hemophilia Or Other Blood Disorders false Muscular Dystrophy false Cystic Fibrosis false Leslie's Chorea false Mental Retardation/Autism false Other Inherited [...] Domestic Partner Domestic Partner Phone Father Name Order Entry Specialist Status 06/17/19 15 1 CLOSED Fetus Data First Name Last Name Admitted to NICU Weight (g) Sex Living Outcome Pediatric Complications Fetus ID Race Codes Race Delivery Type 3515.33 8 F Full Term [id number] Vaginal Darren Calculation Initial Darren Date Initial [...] Complications Tubal Sterilization Discharge Date Comments 2 Regional- idural 41 false 29 low amnioic fluid did weekly US for 3 months Discharge Information Feeding Method Contraceptive Method Maternal HG B and HCT Levels
--- OUTSIDE RECORDS SUMMARY | 2024-11-04 12:45 | XMS_ITS | Data Portability ---
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 Discussed plan. Not available 10/23/2024 16:27:59 Plan of Treatment Reminders Order Date Submit Date Provider Last Modified By Organization Details Last Modified Time Details Appointments U/S OB BPP 2024 01:00P M ULTRASOUND Not available Not available Not available NST 2024 02:00P M NST SCHEDULE Not available Not available Not available OB ROUTINE 2024 02:30P M Peter Bryant CNM Not available Not available Not available U/S OB BPP 2024 01:00P M ULTRASOUND Not available Not available Not available NST 2024 02:00P M NST SCHEDULE Not available Not available Not available OB ROUTINE 2024 02:45P M Peter Bryant CNM Not available Not available Not available U/S OB BPP 2024 01:00P M ULTRASOUND Not available Not available Not available NST 2024 02:00P M NST SCHEDULE Not available Not available Not available OB ROUTINE 2024 02:45P M Peter Richwood, CNM Not available Not available Not available U/S OB BPP 2024 01:00P M ULTRASOUND Not available Not available Not available NST 2024 02:00P M NST SCHEDULE Not available Not available Not available OB ROUTINE 2024 02:30P M Peter Bryant, CNM Not available Not available Not available U/S OB BPP 2024 01:00P M ULTRASOUND Not available Not available Not available NST 2024 02:00P M NST SCHEDULE Not available Not available Not available OB ROUTINE 2024 02:30P M Peter Giordanogle, CNM Not available Not available Not available U/S OB BPP 2024 01:00P M ULTRASOUND Not available Not available Not available NST 2024 02:00P M NST SCHEDULE Not available Not available Not available OB ROUTINE 2024 02:30P M Peter Duvale, CNM Not available Not available Not available Lab None recorde d. Referral None recorde d. Procedures None recorde d. Surgeries None recorde d. Imaging US, obstetr ic, biophys ical profile + non-str ess test 2024 [address] [place] [address], [address], [place], [address], 10/31/2024 22:54:00 US, obstetr ic, biophys ical profile + non-str ess test 2024 [facility] [place] [address], [address], [place], [address], 10/31/2024 22:54:00 non-str ess test 2024 025 [email or web address] [place] [facility] [address], [place], [address], 10/26/2024 08:57:55 Medication Orders None recorde d. Patient TargetsNo targets recorded. Patient InstructionsNo instructions recorded. Reason for Referral None Reported. Results Created Date Observation Date Name Description Value Unit Range Abnormal Flag Note LastModifiedBy Organization Detail LastModifiedTime 09/28/19 25 09/27/2024 HEMAT OCRIT (HCT) HCT 35.2 % (based on docume nted legal sex) 34.0-[address] [facility] (Lab) [address], [place], [address], 09/28/2024 09:47:06 09/28/19 25 09/27/2024 HEMOG LOBIN (HGB) HGB 11.5 g/dL (based on docume nted legal sex) 11.6-1 [address] [facility] (Lab) [address] [place], [address], 09/28/2024 09:47:06 09/28/19 25 09/27/2024 GTT - GESTA MIKEL L SCREE N, ACOG OB glucose, 1 hour screen 169 mg/dL 70-[address] [facility] (Lab) [address] [place], [address], 09/28/2024 09:47:06 09/28/19 25 09/27/2024 HIV 1/2 ANTIG EN/AN TIBOD Y, REFLE X CONFI RMATI ON HIV antigen/anti body Nonrea ctive nonrea ctive HIV-1 antig en and HIV-1 /HIV- 2 antib odies were not detec willy. No labor atory evide nce of HIV infec tion. Not Available [facility] (Lab) [address], [place], [address], 09/28/2024 09:47:07 09/28/19 25 09/27/2024 RPR SCREE N, REFLE X TITER /CONF IRMAT ION RPR qualitative Nonrea ctive nonrea ctive Not Available [facility] (Lab) [address] [place], [address], 09/28/2024 09:47:07 09/28/19 25 09/27/2024 drug scree n, urine Amphetamines : negati ve Not Available [place] [address], [place], [address], 09/27/2024 14:23:43 09/28/19 25 09/27/2024 drug scree n, urine Cannabinoids : negati ve Not Available [place] [address], [place], [address], 09/27/2024 14:23:43 09/28/19 25 09/27/2024 drug scree n, urine Cocaine: negati ve Not Available [place] [address], [place], [address], 09/27/2024 14:23:43 09/28/19 25 09/27/2024 drug scree n, urine Opiates: negati ve Not Available [place] [address], [place], [address], 09/27/2024 14:23:43 09/28/19 25 09/27/2024 drug scree n, urine Phenocyclidi ne: negati ve Not Available [place] [address], [place], [address], 09/27/2024 14:23:43 09/28/19 25 09/27/2024 drug scree n, urine Barbiturates : negati ve Not Available [place] [address], [place], [address], 09/27/2024 14:23:43 09/28/19 25 09/27/2024 drug scree n, urine Benzodiazepi jeremy: negati ve Not Available [place] [address], [place], [address], 09/27/2024 14:23:43 09/28/19 25 09/27/2024 drug scree n, urine Ethanol: negati ve Not Available [place] [address], [place], [address], 09/27/2024 14:23:43 09/28/19 25 09/27/2024 drug scree n, urine Hallucinogen s: negati ve Not Available [place] [address], [place], [address], 09/27/2024 14:23:43 09/28/19 25 09/27/2024 drug scree n, urine Inhalants: negati ve Not Available [place] [address], [place], [address], 09/27/2024 14:23:43 09/28/19 25 09/27/2024 drug scree n, urine Anabolic Steroids: negati ve Not Available [place] [address], [place], [address], 09/27/2024 14:23:43 09/28/19 25 09/27/2024 drug scree n, urine Other: negati ve Not Available [place] [address], [place], [address], 09/27/2024 14:23:43 09/25/19 25 09/24/2024 US, obste tric, follo w-up No observ ation record ed. [email or web address] [facility] [address] [place], [address], 09/25/2024 11:31:18 09/25/19 25 09/24/2024 US, obste tric, follo w-up No observ ation record ed. [email or web address] [facility] [address] [place], [address], 10/10/2024 11:06:25 10/10/19 25 10/09/2024 US, obste tric, limit ed No observ ation record ed. [email or web address] [place] [address], [place], [address], 10/09/2024 17:38:41 10/10/19 25 10/09/2024 US, obste tric, follo w-up No observ ation record ed. [email or web address] [place] [address], [place], [address], 10/09/2024 17:38:53 10/10/19 25 10/09/2024 US, obste tric, follo w-up No observ ation record ed. [email or web address] [address], [place], [address], 10/14/2024 10:19:44 10/23/19 25 10/22/2024 US, obste tric, follo w-up No observ ation record ed. [email or web address] [place] [address], [place], [address], 10/22/2024 17:16:15 10/23/19 25 10/22/2024 US, obste tric, follo w-up No observ ation record ed. [email or web address] [place] [address], [place], [address], 10/22/2024 17:16:31 10/23/19 25 10/22/2024 US, obste tric, follo w-up No observ ation record ed. LANA [address], [place], [address], 10/29/2024 21:52:03 10/27/19 25 10/23/2024 non-s tress test No observ ation record ed. [email or web address] [place] [address], [place], [address], 10/26/2024 08:57:06 10/29/19 25 10/23/2024 non-s tress test No observ ation record ed. [email or web address] [place] [address], [place], [address], 10/28/2024 11:44:35 10/31/19 25 10/30/2024 US, obste tric, bioph ysica l profi le + non-s tress test No observ ation record ed. [email or web address] [place] [address], [place], [address], 10/30/2024 13:28:58 10/31/19 25 10/30/2024 US, obste tric, bioph ysica l profi le + non-s tress test No observ ation record ed. [email or web address] [place] [address], [place], [address], 10/30/2024 13:29:11 10/31/19 25 10/30/2024 US, obste tric, follo w-up No observ ation record ed. [email or web address] [address], [place], [address], 10/31/2024 18:00:31 Result Notes None recorded. Problems Name Problem SNOMED Code Status Onset Date Resolution Date Notes Provider Name and Address Organization Details Recorded Time Pregnanc y 94934307 Completed 202106/09/2022 Keneytta moreno, [facility] 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 3 15:14:45 Hypothyr oidism 75470570 Completed Eli Shettytieh l null, [facility] 3 15:14:45 Antenata l care: history of infertil ity 017659660 Completed Eli Shettytieh l null, [facility] 3 15:14:46 Group B Streptoc occus carrier 8176967110 103 Completed bacteriu berta Eli alvarado [facility] 3 15:14:45 Maternal obesity complica ting pregnanc y, childbir th and the puerperi um, antepart um 5439164434 07 Completed BMI 39- ante testing at 37w Eli alvarado [facility] 3 15:14:46 Chronic hyperten allison in obstetri c context 9125069 Completed procardi a , baseline labs, ASA Eli alvarado [facility] 3 15:14:46 Placenta circumva llata 4345102 Completed Serial growth u/s Eli alvarado [facility] 3 15:14:45 Pre-ecla mpsia 393288083 Completed Eli alvarado [facility] 3 15:14:45 Abnormal cervical Papanico laou smear 880191392 Active 2023 3 lgsil HPV high risk 1 ascus HPV high risk Kenyetta Solano [facility], [facility] 4 11:59:57 Herpes simplex 17580039 Active 2024 Kenyetta Solano [facility], [facility] 5 16:40:53 Human papillom a virus infectio n 377999086 Active 2024 Kenyetta Solano [facility], [facility] 5 16:40:59 Endometr iosis (clinica l) 433413612 Active 2024 Kenyetta Solano [facility], [facility] 5 16:41:22 Pregnanc y 70796993 Active 2024 Kenyetta Solano [facility], [facility] 5 16:03:06 Twin pregnanc y 15226662 Active 38 wk delivery antenata l testing @ 32wks per MFM Schedule d rpt 08/27 us ONLY Tabatha moreno, [facility] 5 12:20:16 Antenata l care: history of infertil ity 429258282 Active Peter Bryant CNM [address], [place], [address], [facility] 5 13:48:37 Past pregnanc y history of pre-ecla mpsia 4354118994 79211 Active bASA x2 Tabatha moreno, [facility] 5 17:10:40 Large for gestatio n age fetus 458028046 Active less then 30 sec shoulder dystocia Peter Bryant CNM [address], [place], [address], [facility] 5 13:51:09 Past pregnanc y history of shoulder dystocia 740690338 Active Peter Bryant CNM [address], [place], [address], [facility] 5 13:52:04 Chronic hyperten allison in obstetri c context 1400507 Active Peter Bryant CNM [address], [place], [address], [facility] 5 13:52:55 Palpitat ions 32883119 Active Holter monitor faxed to [facility] nt Cardiolo gy 3 Tabatha moreno, [facility] 5 14:05:23 Palpitat ions 31445725 Active Holter monitor faxed to [facility] nt Cardiolo gy 324 Tabatha moreno, [facility] 5 14:05:23 Migraine 14825969 Active shane bonilla, Excedrin tension, edita Flanagan null, [facility] 5 17:11:50 Migraine 99946696 Active amadoru m, Excedrin tension, atifip deepti Flanagan null, [facility] 5 17:11:50 Glucose toleranc e test outside referenc e range 038737957 Active 2024 5 checking blood sugars for 2 week instead for doing 3 hour Kenyettaelif Solano null, [facility] 17:53:21 Glucose toleranc e test outside referenc e range 443949591 Active 2024 5 checking blood sugars for 2 week instead for doing 3 hour Kenyettaelif Solano null, [facility] 5 17:53:21 Gestatio nal diabetes mellitus 05630698 Active 2024 Kenyettaelif Solano null, [facility] 5 11:47:25 Gestatio nal diabetes mellitus 63525280 Active 2024 Kenyetta Solano null, [facility] 5 11:47:25 Finding of general energy 682646506 Completed 201807/28/2020 Fatigue; Recorded Elsewher e: No Locat ion: Chaya [facility] S ource: EHR Senior Officer mark: N Amanda ce ID: [id number] Emmanuel lable Time: 10:45:00 AM Messi Garcia MD [address], [place], [address], [facility] 1 15:00:00 Acute vaginiti s 14532262 Completed 201807/28/2020 Vaginiti s;Record ed Elsewher e: No Locat ion: Chaya arevalo [facility] S ource: EHR Senior Officer mark: N Practi ce ID: [id number] Emmanuel lable Time: 10:45:00 AM Messi Garcia MD [address], [place], [address], [facility] 15:00:04 Removal of intraute rine device Completed 201807/28/2020 Encounte r for removal of IUD;Earl rded Elsewher e: No [facility] S ource: EHR Senior Officer mark: N Practi ce ID: [id number] Emmanuel lable Time: 10:45:00 AM Messi Garcia MD [address], [place], [address], [facility] 15:00:08 Problem Notes None recorded. Procedures Surgical History Date Name Laterality Status Provider Name and Address Organization Details Recorded Time 024 Laparoscopy completed Kenyetta [facility] 05/10/2024 16:42:07 024 Date of Last Pap Smear completed Kenyetta [facility] 08/16/2023 12:00:08 024 procedure on ear completed Kenyetta [facility] 08/16/2023 12:01:09 023 Colposcopy completed Peter Bryant CNM [address], [place], [address], [facility] 06/15/2022 16:59:00 023 [facility] 16:38:21 023 Colposcopy [address]elif Solano [facility] 06/15/2022 16:38:49 022 [facility]21 09:20:58 021 intrauterine artificial insemination completed [facility] 06/17/2021 12:15:01 021 intrauterine artificial insemination completed [facility] 06/17/2021 12:14:55 021 intrauterine artificial insemination completed [facility] 06/17/2021 12:14:45 021 intrauterine artificial insemination completed [facility] 06/17/2021 12:14:39 021 LAPAROSCOPY, DIAGNOSTIC (SURG) completed [facility] 08/19/2020 14:04:12 020 completed [facility] 10/01/2020 16:23:53 020 Colonoscopy completed [facility] 01/22/2021 10:59:09 019 procedure on neck completed [facility] 12/25/2019 11:25:51 019 hemorrhoidectomy completed [facility] 12/25/2019 11:24:57 016 cholecystectomy completed [facility] 07/16/2021 17:21:15 010 Appendectomy completed [facility] 12/25/2019 11:24:44 Imaging Results None recorded. Procedure Notes None recorded. Medical Equipment None Reported. Allergies Allergen ID Allergen Name Allergen Category Reaction Reaction Severity Criticality Documentation Date Start Date Code Code System Note Provider Name and Address Organization Details Recorded Time 52576 prednison e medicatio n hives Not available Not available 07/03/2024 8640 RxNorm NILSON De JesusM [address], [place], [address] [place] [address], [facility] 5 09:52:22 Medications Name Sig Start Date Stop Date Status Note LastModified by Organization Details LastModified Time nifedipin e ER 30 mg tablet,ex tended release 24 hr TAKE 1 TABLET BY MOUTH EVERY DAY 03/16 completed Not Available Not Available Not Available cyclobenz aprine 10 mg tablet TAKE 1 TABLET BY MOUTH EVERY 8 HOURS NEEDED FOR PAIN 09/27 completed Not Available Not Available Not Available amoxicill in 500 mg capsule TAKE [...] Y TO THE AFFECTED AREA TWICE DAILY 09/27 completed Not Available Not Available Not Available ibuprofen 800 mg tablet TK 1 [...] Pregnyl 10,000 unit intramusc ular solution Inject 86633 units every day by intramus cular route [...] completed Not Available Not Available Not Available acetamino phen 300 mg-codein e 30 mg tablet active Not Available Not Available Not Available sulfameth [...] completed Not Available Not Available Not Available Procardia XL 60 mg tablet,ex tended release Take 1 tablet every day by oral route. 2024 active Not Available Not Available Not Avai lable famotidin e 20 mg tablet TAKE 1 [...] Not Available Not Available Not Available Lexapro 10 mg tablet Take 1 tablet every day by oral route. 03/16 completed Not Available Not Available Not [...] antonio Cevallos e: Yes Loca tion: Chaya arevalo [facility] odify By: [email or web address] z Encoun ter [...] completed Not Available Not Available Not Available OneTouch Verio test strips USE TO CHECK BLOOD SUGAR FASTING IN THE MORNING AND 1 HOUR AFTER EACH MEAL FOUR TIMES DAILY active Not Available Not Available No t Available PreviDent 5000 Booster Plus 1.1 % dental paste USE DIRECTED active Not Available Not Available No t Available OneTouch Verio Flex Meter USE TO CHECK BLOOD SUGAR FASTING IN THE MORNING AND 1 HOUR AFTER EACH MEAL FOUR TIMES DAILY active Not Available Not Available No t Available Novarel 5,000 unit intramusc ular solution Inject 2 units by intramus cular route. 06/26 completed PATIENT GIVEN (2) NOVAREL VAIL INJECTIO N INTO RIGHT HIP LOT [id number] EXP 12/2021 Not Available Not Available Not Available OneTouch Delica Plus Lancet 33 gauge USE TO CHECK BLOOD SUGAR FASTING AND 1 HOUR AFTER EACH MEAL FOUR TIMES DAILY active Not Available Not Available No t Available Slynd 4 mg (28) tablet Take 1 tablet every day by oral route. 01/22 completed patient given samples Not Available Not Available Not Available Klayesta 100,000 unit/gram topical powder APPLY TO THE AFFECTED AREA TWICE DAILY 09/27 completed Not Available Not Available Not Available Vitals Date Recorded Body weight Body mass index (BMI) Body height Body height Body mass index (BMI) Body weight Systolic blood pressure Diastolic blood pressure Systolic blood pressure Diastolic blood pressure Provider Name and Address Organization Details Last Updated DateTime 5 285067. 38786 g 42 kg/m2 161.29 cm 161.29 cm 42 kg/m2 983092. 76 g 125 mm[Hg] 82 mm[Hg] 125 mm[Hg] 82 mm[Hg] Kenyetta Solano [facility] 5 08:55:08 Date Recorded Body weight Body mass index (BMI) Body height Systolic blood pressure Diastolic blood pressure Provider Name and Address Organization Details Last Updated DateTime 10/30/2024 703522.9 8 g 41.5 kg/m2 161.29 cm 115 mm[Hg] 84 mm[Hg] Eula Barnes [facility] 5 14:01:03 Social History Question Answer Notes LastModified by Organizat ion Details LastModified Time Tobacco Smoking Status Never Smoker Althea Holguin tiffanie [facility] 06/15/2022 15:31:26 Do You Have An Advance Directive? No Information n ot available 07/28/2020 If You Are , What Was Your Level Of Alcohol Consumption Prior To ? None [email or web address] Information not available 06/15/2022 Are You Blind [...] Type Of Diet Are You Following? REGULAR [email or web address] Information n ot available 08/19/2020 What Is The Highest Grade Or Level Of School You Have Completed Or The Highest Degree You Have Received? [id number] Information not available 07/28/2020 Are There Any Guns Present In Your Home? No Information not available 07/28/2020 What Was The Date Of Your Most Recent Tobacco Screening? 10/23/2024 [email or web address] Information not available 10/23/2024 Have You Ever Been Counseled For Unhealthy Alcohol Use? No [email or web address] Information not available 06/15/2022 Do You Use Protection During Sex? No Information not available 07/28/2020 Do You Use Your Seat Belt Or Car Seat Routinely? Yes Information not available 07/28/2020 Do You Have Smoke And Carbon Monoxide Detectors In Your Home? Yes Information not available 07/28/2020 How Much Tobacco Do You Smoke? No [email or web address] Information not available 12/25/2019 Do You Use Sunscreen Routinely? Yes Information not available 07/28/2020 Have You Used IV Drugs? No Information not available 07/28/2020 Do You Have Difficulty Walking Or Climbing Stairs? No [email or web address] Information not available 06/15/2022 Sex: Unknown Functional Status Question Answer Note LastModified by Organizat ion Details LastModified Time Do you use any illicit or recreational drugs? No Information not available 07/28/2020 Do you or have you ever used any other forms of tobacco or nicotine? No [email or web address] Information not available 06/15/2022 What is your level of alcohol consumption? Occasional Information not available 12/25/2019 Do you or have you ever used smokeless tobacco? Never used smokeless tobacco [email or web address] Information not available 06/15/2022 Are you able to walk? [email or web address] Information not available 08/19/2020 Are you able to care for yourself? 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 No Information not available 06/15/2022 Do you or have you ever used e-cigarettes or vape? Never used electronic cigarettes [email or web address] Information not available 06/15/2022 What is your exercise level? Occasional [email or web address] Information not available 12/25/2019 Mental Status Question Answer Note LastModified by Organization D etails LastModified Time Do you feel stressed (tense, restless, nervous, or anxious, or unable to sleep at night)? [id number] [email or web address] Information not available 08/19/2020 Family History Relationship Description Onset Age of this Age Resolved Age Notes LastModified by Organization Details LastModified Time Maternal Grandmother Disorder of thyroid gland [email or web address] Not available 01/26 16:14:56 Mother Female infertility [email or web address] Not available 08/2024 13:51:15 Mother Disorder of thyroid gland [email or web address] Not available 01/26 16:14:56 Father Malignant tumor of pancreas [email or web address] Not available 2024 13:51:15 Brother Malignant neoplasm of prostate [email or web address] Not available 2024 13:51:15 Paternal Grandmother Malignant tumor of breast [email or web address] Not available 01/26 16:14:56 Paternal Grandmother Malignant neoplasm of lung [email or web address] Not available 09/21 /2022 16:14:56 Medical History Condition Response Allergies (Food, seasonal, environmental ) N Other Y Breast Cancer N Drug/Latex Allergies/Reactions N Blood Transfusion N Dermatologic Disorders N Lung Disease N Defects or Inherited Disease N Breast Problem N Gestational Diabetes Y Hematologic disorders N Anesthesia Complications N History [...] SNOMED-CT Code Diagnosis ICD10 Code Diagnosis Note [id number] Peter Bryant CNM [place] [address] [address] 12/25/2019 10:57:08 12/25/2019 12:38:39 Breast infection 052344837 N61.0 Trying to conceive 98239 9001 Z31.9 [id number] Messi Garcia MD [place] [address] [address] 06/30/2020 12:07:39 06/30/2020 12:55:49 Pain in pelvis 67032969 R10.2 [id number] Messi Garcia MD [place] [address] [address] 07/02/2020 12:31:33 07/02/2020 16:54:32 Pain in pelvis [id number] R10.2 This patient is a 25-year-ol d [...] informed consent process. To check fallopian tubes. [id number] MD Rhina Zheng [address],[place] [address] 07/23/2020 10:07:53 07/23/2020 10:09:56 [id number] MD Rhina Zheng [address],[place] [address] 1 07/28/2020 13:53:59 07/28/2020 15:27:02 Chest pain [id number] R07.9 this patient is 25-year-ol d female [...] this patient s visit, including available hand real estate recruiter upon arrive, temperatur e check and being asked a series of screening questions. All staff wore face coverings during this encounter, as well as provided additional cleaning and sanitizing of all surfaces, including countertop s, pens, chairs, door handles, light switches, etc, prior to and following the patient s visit. [id number] Messi Garcia MD [place] [address],[place] [address] 08/04/2020 14:07:07 08/04/2020 14:50:37 Abnormal uterine bleeding [id number] 9100 N93.9 this patient is a 25-year-ol [...] ovulation [place]. [id number] Peter Bryant CNM [place] [address],[place] [address] 08/19/2020 13:46:09 08/19/2020 15:50:34 Trying to conceive [id number] Z31.9 [id number] Messi Garcia MD [place] [address] [place] [address] 09/02/2020 11:05:51 09/02/2020 12:44:09 Female infertility [id number] N97.9 [id number] Peter Bryant CNM [place] [address] [place] [address] 1 09/04/2020 08:09:36 09/04/2020 09:29:50 Artificial insemination 70902808 Z31.83 [id number] [facility] [address] [place] [address] 1 09/03/2020 18:20:49 09/03/2020 22:54:04 Trying to conceive [id number] Z31.9 [id number] Messi Garcia MD [place] [address] [place] [address] 1 09/09/2020 17:51:09 09/09/2020 18:07:37 Pain in pelvis 04098148 R10.2 This patient is a 25-year-ol d [...] informed consent process. To check fallopian tubes. [id number] Messi Garcia MD [place] [address],[place] [address] 1 09/22/2020 16:45:48 09/22/2020 17:17:04 Pain in pelvis 70280349 R10.2 This patient is a 25-year-ol d [...] informed consent process. To check fallopian tubes. [id number] Messi Garcai MD [place] [address],[place] [address] 10/01/2020 14:59:50 10/01/2020 15:16:34 Female infertility 1569187 N97.9 [id number] Peter Bryant [facility] [address],[place] [address] 1 10/01/2020 16:21:54 10/01/2020 16:27:38 Trying to conceive [id number] Z31.9 [id number] Peter Bryant CNM [place] [address],[place] [address] 1 10/02/2020 08:19:49 10/02/2020 09:46:38 Artificial insemination 37283403 Z31.83 [id number] Messi Garcia MD [place] [address],[place] [address] 1 10/14/2020 15:52:51 10/14/2020 16:51:20 Pain in pelvis 85216635 R10.2 This patient is a 25-year-ol d [...] informed consent process. To check fallopian tubes. [id number] Peter Bryant CNM [place] [address],[place] [address] 1 10/21/2020 17:06:20 10/21/2020 17:33:05 Hypothyroidism 41950413 E03.9 check labs, will adjust meds if needed [id number] Messi Garcia MD [place] [address] [address] 1 11/30/2020 13:48:01 11/30/2020 13:52:51 Pain in pelvis 71346098 R10.2 This patient is a 25-year-ol d [...] informed consent process. To check fallopian tubes. [id number] Messi Garcia MD [place] [address],[place] [address] 1 12/01/2020 14:00:56 12/01/2020 15:31:30 Pain in pelvis 79741956 R10.2 this patient is a 25-year-ol d [...] face-to-fa ce discussing this very complex topic. [id number] Peter Bryant [place] [address] [place] [address] 1 01/22/2021 09:15:38 01/22/2021 10:35:42 Female infertility 0013537 N97.9 Gynecologi c examination 83865839 Z01.419 [id number] Messi Garcia MD [place] [address] [place] [address] 1 02/09/2021 09:19:46 02/09/2021 10:04:48 Female infertility 0594886 N97.9 [id number] Peter Bryant [facility] [address] [place] [address] 1 02/09/2021 14:29:50 02/09/2021 16:50:58 Trying to conceive [id number] Z31.9 [id number] Peter Bryant [facility] [address] [place] [address] 1 02/10/2021 09:41:42 02/10/2021 10:12:15 Female infertility 3104828 N97.9 Artificial insemination 41642597 Z31.83 [id number] Messi Garcia MD [place] [address] [place] [address] 1 04/28/2021 14:43:43 04/28/2021 15:19:59 Female infertility 9628202 N97.9 [id number] [facility] [address],[place] [address] 1 04/28/2021 18:59:10 04/29/2021 09:31:07 Trying to conceive 437406683 Z31.[id number] [facility] [address],[place] [address] 1 04/29/2021 09:31:15 04/29/2021 10:19:12 Artificial insemination 83415458 Z31.83 [id number] Nalini Salomon [facility] [address],[place] [address] 1 05/25/2021 11:53:11 05/25/2021 16:54:31 Reduced libido 7859396 R68.82 Today we discussed trial of Wellbutrin [...] this patient s visit, including available hand real estate recruiter upon arrive, temperatur e check and being asked a series of screening questions. All staff wore face coverings during this encounter, as well as provided additional cleaning and sanitizing of all surfaces, including countertop s, pens, chairs, door handles, light switches, etc, prior to and following the patient s visit. [id number] Messi Garcia MD [place] [address],[place] [address] 06/22/2021 14:38:59 06/23/2021 09:16:44 Body mass index 30+ - obesity 755494944 Z68.37 This patient is a 26-year-ol d [...] on the dietitian schedule. Gynecologi c examination 14739841 Z01.419 Abnormal u terine bleeding 9630533103 9100 N93.9 [id number] Messi Garcia MD [place] [address],[place] [address] 06/25/2021 09:04:11 06/25/2021 09:23:27 Female infertility 4273878 N97.9 [id number] Peter Bryant CNM [place] [address],[place] [address] 1 06/25/2021 18:38:25 06/26/2021 09:09:27 Trying to conceive 875877400 Z31.9 [id number] Peter Brynat CNM [place] [address],[place] [address] 1 06/26/2021 09:13:57 07/01/2021 15:54:18 Artificial insemination 22954910 Z31.83 [id number] Messi Garcia MD [place] [address],[place] [address] 1 07/27/2021 17:11:55 07/27/2021 18:06:16 Uncertain viability of 488961924 O36.80X0 Z3A.01 [id number] Messi Garcia MD [place] [address],[place] [address] 1 08/05/2021 09:17:05 08/05/2021 10:16:25 Abdominal pain in early 063928576 Z33.1 Z3A.01 [id number] Messi Garcia MD [place] [address],[place] [address] 1 08/18/2021 10:17:54 08/18/2021 11:20:00 [id number] Peter Bryant [facility] [address],[place] [address] 1 08/18/2021 10:18:19 08/19/2021 12:30:57 Amenorrhea 91601413 Z31.89 Z31.83 [id number] Pretty Cotton MD [place] [address],[place] [address] 1 09/10/2021 14:50:18 09/10/2021 15:34:33 screening 035072581 Z36.82 [id number] Pretty Cotton MD [place] [address],[place] [address] 1 09/10/2021 14:50:57 09/13/2021 15:22:01 Routine care 210468179 Z34.91 care: history of infertility 944173343 O09.[address] reptococcus carrier 4766927745 103 Z22.330 Hypothyroidism 07026795 E03.9 Maternal o besity complicating , childbirth and the puerperium, antepartum 4045862855 07 O99.211 [id number] Pretty Cotton MD [place] [address],[place] [address] 1 09/27/2021 17:43:48 09/28/2021 10:23:00 Chronic hypertension complicating AND/OR reason for care during 56825689 O16.9 [id number] Pretty Cotton MD [place] [address],[place] [address] 1 10/08/2021 14:49:27 10/08/2021 16:16:40 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 6884474 O16.9 care: history of infertility 946575202 O09.01 Hypothyroidism 77029244 E03.9 [id number] Messi Garcia MD [place] [address],[place] [address] 11/03/2021 16:29:49 11/03/2021 18:37:35 screening 940295996 Z36.3 Z3A.20 [id number] [facility] [address],[place] [address] 1 11/03/2021 16:30:15 11/03/2021 18:37:10 Routine care 439930282 Z34.91 Anxiety 37958687 F41.9 [id number] Messi Garcia MD [place] [address],[place] [address] 1 12/03/2021 15:10:07 12/03/2021 16:20:49 Hypothyroidism 89607303 E03.9 [id number] Messi Garcia MD [place] [address],[place] [address] 1 12/03/2021 15:10:54 12/03/2021 17:08:45 Placenta circumvallata 0896972 O43.112 Z36.2 Z3A.24 [id number] Messi Garcia MD [place] [address],[place] [address] 1 12/29/2021 15:21:10 12/29/2021 16:01:38 Placenta circumvallata 7807041 O43.113 O10.013 O99.213 Z3A.28 [id number] [facility] [address],[place] [address] 1 12/29/2021 15:22:44 12/29/2021 17:01:50 Routine care 461521353 Z34.91 - induced hypertension 67997519 O13.9 [id number] Messi Garcia MD [place] [address],[place] [address] 01/13/2022 13:47:29 01/13/2022 14:39:17 Medical examination for suspected condition 850502915 Z03.79 [id number] Messi Garcia MD [place] [address],[place] [address] 1 01/13/2022 13:47:50 01/13/2022 15:53:18 Routine care 011396764 Z34.83 [id number] Pretty Cotton MD [place] [address],[place] [address] 1 01/17/2022 16:24:29 01/17/2022 18:16:59 Threatened premature labor - not delivered 298754746 O47.9 [id number] Pretty Cotton MD [place] [address],[place] [address] 1 01/17/2022 16:35:15 01/19/2022 15:28:55 Threatened premature labor - not delivered 619969051 O47.9 [id number] Messi Garcia MD [place] [address],[place] [address] 1 01/26/2022 14:52:57 01/26/2022 15:27:45 Chronic hypertension complicating AND/OR reason for care during 84677362 O16.9 [id number] Messi Garcia MD [place] [address],[place] [address] 1 01/26/2022 14:54:57 01/26/2022 16:22:26 Placenta circumvallata 7487352 O43.113 Z3A.32 O10.013 [id number] Peter Bryant, [facility] [address],[place] [address] 1 01/26/2022 14:55:32 01/26/2022 16:39:21 Routine care 952172855 Z34.91 [id number] MD Rhina Zheng [address],[place] [address] 02/02/2022 16:59:59 02/02/2022 17:58:36 Maternal obesity complicating , childbirth and the puerperium, antepartum 7832196453 07 O99.213 [id number] Messi Garcia MD [place] [address],[place] [address] 1 02/02/2022 17:00:19 02/02/2022 18:17:03 Chronic hypertension complicating AND/OR reason for care during 34303250 O10.013 Z3A.33 [id number] Peter Bryant [facility] [address],[place] [address] 02/02/2022 17:00:45 02/02/2022 18:50:24 Routine care 504092357 Z34.91 [id number] Messi Garcia MD [place] [address],[place] [address] 1 02/09/2022 16:53:15 02/09/2022 17:49:24 Maternal obesity complicating , childbirth and the puerperium, antepartum 2251280905 07 O99.213 [id number] Messi Garcia MD [place] [address],[place] [address] 1 02/09/2022 16:53:36 02/09/2022 18:15:36 Chronic hypertension complicating AND/OR reason for care during 25436153 O10.013 O99.213 Z3A.34 [id number] [facility] [address],[place] [address] 02/09/2022 16:54:04 02/09/2022 18:25:27 Routine care 112130100 Z34.91 [id number] MD [place] [address],[place] [address] 02/16/2022 17:00:10 02/16/2022 17:56:48 Chronic hypertension complicating AND/OR reason for care during 41816594 O10.013 O99.213 Z3A.34 [id number] Messi Garcia MD [place] [address],[place] [address] 1 02/16/2022 17:00:39 02/16/2022 18:07:43 Chronic hypertension complicating AND/OR reason for care during 75814524 O10.013 Z3A.35 O99.213 [id number] Peter Bryant [facility] [address],[place] [address] 1 02/16/2022 17:01:03 02/16/2022 18:20:17 Routine care 377862598 Z34.91 [id number] Messi Garcia MD [place] [address],[place] [address] 02/18/2022 15:23:24 02/18/2022 15:53:12 Reduced movement 483338700 O36.8199 [id number] Peter Bryant [facility] [address],[place] [address] 1 02/23/2022 16:45:10 02/23/2022 18:18:35 Routine care 355843186 Z34.91 Large for gestation age fetus 633942958 O36.63X0 [id number] Messi Garcia MD [place] [address],[place] [address] 1 02/23/2022 16:42:55 02/23/2022 17:12:22 Chronic hypertension complicating AND/OR reason for care during 94206206 O10.013 Z3A.35 O99.213 [id number] Messi Garcia MD [place] [address],[place] [address] 1 02/23/2022 16:43:28 02/23/2022 17:56:35 Chronic hypertension complicating AND/OR reason for care during 19366886 O10.013 O99.213 Z3A.36 [id number] Pretty Cotton MD [place] [address] [address] 1 03/16/2022 14:15:55 03/17/2022 16:13:50 Pain in pelvis 09244629 R10.2 [id number] Messi Garcia MD [place] [address] [address] 03/17/2022 13:34:56 03/17/2022 14:02:57 Pain in pelvis 56573411 R10.2 this patient is a 25-year-ol d [...] face-to-fa ce discussing this very complex topic. [id number] Messi Garcia MD [place] [address],[place] [address] 03/17/2022 13:35:31 03/18/2022 13:49:15 Pain in pelvis 61662154 R10.2 patient is a 27-year-ol d female [...] We spent over 20 minutes face-to-fa ce. 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 restart lexapro, to ed if any suicidal thoughts, reviewed se risks and benefits f/u 6 week med check if unavailabl e can do by phone Low grade squamous intraepithelial lesion on cervical Papanicolaou smear 5815027769 9105 R87.612 f/u pending pathology [id number] Peter Bryant [facility] [address],[place] [address] 1 08/16/2023 11:38:58 08/16/2023 13:55:15 Pain in pelvis 48506277 R10.2 also start pelvic floor pT Gynecologi c examination 10594893 Z01.419 [id number] Messi Garcia MD [place] [address],[place] [address] 1 08/22/2023 11:28:17 08/22/2023 12:06:29 Pain in pelvis 33489484 R10.2 patient is a 27-year-ol d female [...] We spent over 20 minutes face-to-fa ce. [id number] MD Rhina Zheng [address],[place] [address] 1 04/23/2024 09:16:05 04/23/2024 10:09:58 screening 053221890 Z36.87 O30.049 Z3A.01 [id number] Messi Garcia MD [place] [address],[place] [address] 1 05/10/2024 15:16:46 05/10/2024 16:01:31 [id number] Peter Bryant [facility] [address],[place] [address] 1 05/10/2024 15:17:03 05/10/2024 16:51:44 Amenorrhea 90816189 Z31.89 Z31.83 Dichorioni c diamniotic twin 122780911 O30.049 reviewed US plan us at 12 weeksnipt at 10 weeks with labsawait pap until pp visitrevie wed precaution s and educationh x preeclamps ia without severe features last [id number] Messi Garcia MD [place] [address],[place] [address] 05/21/2024 11:09:17 05/21/2024 12:05:12 Threatened miscarriage 06161106 O20.0 O30.041 Z3A.09 [id number] Messi Garcia MD [place] [address],[place] [address] 1 05/23/2024 17:26:08 05/24/2024 10:31:39 Threatened miscarriage 39890940 O20.0 O30.041 Z3A.09 [id number] Messi Garcia MD [place] [address],[place] [address] 1 05/23/2024 18:31:17 05/24/2024 10:33:13 Pain in pelvis 40385815 R10.2 this patient is a 29-year-ol d [...] is to contact us if pain worsens. [id number] Messi Garcia MD [place] [address],[place] [address] 1 05/29/2024 10:21:34 05/29/2024 11:12:31 condition affecting obstetrical care of mother 993244571 O36.8910 Z3A.10 [id number] Messi Garcia MD [place] [address],[place] [address] 1 06/03/2024 16:41:37 06/04/2024 14:32:45 screening 021914833 Z36.82 Z3A.11 [id number] Peter Bryant [facility] [address],[place] [address] 1 06/05/2024 14:45:02 06/06/2024 16:44:18 Nausea and vomiting 59245460 R11.2 Migraine 53248001 G43.90 9 Routine an tenatal care 611926318 Z34.91 Twin 14586198 O30.009 [id number] Messi Garcia MD [place] [address],[place] [address] 1 06/12/2024 17:23:11 06/12/2024 18:08:31 Medical examination for suspected condition 608771031 Z03.72 Z3A.12 [id number] Messi Garcia MD [place] [address],[place] [address] 1 07/01/2024 16:17:41 07/01/2024 17:36:13 Dichorionic diamniotic twin 443929273 O30.042 Z3A.15 [id number] [facility] [address],[place] [address] 1 07/03/2024 09:17:02 07/03/2024 09:55:31 Gestation period, 15 weeks 9181737 Z3A.15 [id number] ALEC WILKINSON MD [place] [address],[place] [address] 1 07/08/2024 10:41:29 07/08/2024 11:38:56 Pruritic rash 78151886 L28.2 Dichorioni c diamniotic twin 744616402 O30.049 Chronic hy pertension complicating AND/OR reason for care during 79892811 O16.9 Gestation period, 16 weeks 87115458 Z3A.16 [id number] Messi Garcia MD [place] [address],[place] [address] 1 07/12/2024 10:38:28 07/12/2024 11:50:01 [id number] Peter Bryant [facility] [address] [place] [address] 1 07/31/2024 16:35:21 08/01/2024 09:45:58 Gestation period, 19 weeks 29387661 Z3A.19 Dichorioni c diamniotic twin 681798185 O30.049 Gastroesop hageal reflux disease 630936724 K21.9 [id number] Peter Bryant [facility] [address],[place] [address] 1 08/09/2024 12:12:22 08/09/2024 14:11:25 Pain in pelvis 44387972 R10.2 start physical therapy [id number] Messi Garcia MD [place] [address],[place] [address] 1 08/22/2024 12:06:07 08/22/2024 13:36:01 Dichorionic diamniotic twin 104046706 O30.042 O36.8120 Z3A.23 [id number] Peter Bryant [facility] [address],[place] [address] 1 08/28/2024 14:16:16 08/30/2024 10:02:02 [id number] Peter Bryant [facility] [address],[place] [address] 1 08/29/2024 09:57:22 08/30/2024 10:26:31 Gestation period, 24 weeks 769013997 Z3A.24 [id number] Messi Garcia MD [place] [address],[place] [address] 1 09/18/2024 11:30:12 09/18/2024 12:33:22 Dichorionic diamniotic twin 925109046 O30.042 O99.891 Z3A.26 [id number] Peter Bryant [facility] [address],[place] [address] 1 09/27/2024 14:05:42 09/27/2024 14:47:06 Gestation period, 28 weeks 49811833 Z3A.28 [id number] Messi Garcia MD [place] [address],[place] [address] 1 10/09/2024 13:51:09 10/09/2024 15:10:27 Dichorionic diamniotic twin 162568800 O30.043 O32.1XX2 Z36.2 Z3A.29 [id number] Peter Bryant [facility] [address],[place] [address] 1 10/09/2024 13:51:24 10/09/2024 16:46:13 Gestation period, 29 weeks 19707429 Z3A.29 [id number] Messi Garcia MD [place] [address],[place] [address] 1 10/22/2024 11:49:29 10/22/2024 13:06:50 Dichorionic diamniotic twin 103221335 O30.043 O24.410 O13.3 Z3A.31 [id number] Peter Bryant [facility] [address],[place] [address] 1 10/23/2024 14:57:19 10/27/2024 19:34:15 Twin 33158285 O30.009 [id number] Peter Bryant [facility] [address],[place] [address] 1 10/23/2024 14:57:44 10/23/2024 16:42:04 Gestation period, 31 weeks 59380644 Z3A.31 [id number] Messi Garcia MD [place] [address],[place] [address] 1 10/30/2024 11:49:15 10/30/2024 12:53:32 Dichorionic diamniotic twin 737295252 O30.043 O24.410 O16.3 Z3A.32 [id number] Peter Bryant [facility] [address],[place] [address] 1 10/30/2024 11:49:41 10/30/2024 13:44:54 Gestation period, 32 weeks 0099651 Z3A.32 Health Concerns Section Related Observation LastModified by Organization Detai ls LastModified Time None Recorded Concern Status LastModified by Organization Details LastModified Time None Recorded Advance Directives Directive N: Payers Insurance Date Sequence Insurance Name Policy Number Policy Steele Covered Member ID Steele Member ID Guarantor Name 05/10/2024 2 [facility] Chjc Xbb [id number] Yessica M Corzine 05/18/2021 1 [facility] [id number] Luis Antonio Rowe Corzine [id number] Yessica M Corzine 06/15/2022 *SELF PAY* Me kartik Bonilla Corzine 08/31/2020 2 [facility] Luis Antonio Corzine [id number] Yessica M Corzine 08/31/2020 3 [facility] Antony Corzine [id number] Yessica M Corzine 09/04/2020 2 [facility] Luis Antonio Corzine [id number] Yessica Bonilla Corzine 09/23/2020 2 [facility] [place] [id number] Yessica Bonilla Rafane 10/30/2024 1 [facility] [id number] Luis Antonio Rowe Chepe [id number] Yessica Bonilla Corzine 05/10/2024 3 [facility] [id number] Vxbn FB BC [id number] Yessica Bonilla Chepe OBGyn Episode Ob Episode Information Episode Created Date Number of Fetuses Patient Bloodtype Patient rh Status Prepregnancy Weight lbs Domestic Partner Domestic Partner Phone Father Name Channel Cementer Insole Machine Status 12/25/19 20 1 CLOSED Fetus Data [...] Domestic Partner Domestic Partner Phone Father Name Channel Cementer Insole Machine Status 12/25/19 20 1 CLOSED Fetus Data [...] Domestic Partner Domestic Partner Phone Father Name Channel Cementer Insole Machine Status 09/11/19 22 1 A Positive 221 CLOSED Fetus Data First Name Last Name Admitted to NICU Weight (g) Sex Living Outcome Pediatric Complications Fetus ID Race Codes Race Delivery Type 4224.07 53 M true Full Term [id number] Vaginal Delivery Problems Problem Notes TSH WNL/A+/Ha1c/CBC WNL Problem Name Start Date End Date Resolution Snomed Code Not e Hypothyroidism 68768809 care: history of infertility [id number] Group B Streptococcus carrier [id number] bacteriuria Maternal obesity complicating , childbirth and the puerperium, antepartum [id number] BMI 39- ante testing at 37w 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 [id number] maia ellsworth , baseline labs, ASA Placenta circumvallata [id number] Serial growth u/s Pre-eclampsia [id number] Darren Calculation Initial Darren Date Initial Exam [...] Date Ultra Sound Latest Days Gestation 0 [email or web address] 09/13/2021 03/23/20 22 0 Pre-erick Flowsheet Flowsheet Date 09/10/2021 Mckinney Score Blood Edema Fundus Height Fundus Units Glucose Ketones Leukocytes Nitrite Labor Signs Protein Cervic Dilation Cervic Effacement Cervic Station neg none Type Weight in lbs Pre/Post Dialysis Refused Weight 225.346355056259 BP Diastolic BP Location Tested BP Systolic BP Type 81 114 Fetus Heart Rate Present A 165 Fetus Movement A No Comments Yessica is a 26yo at 1 2.2 for care. Infertility treatment- conceived with OI and IUI. Covid vaccines done, due for booster in [place] today NT wnl, AARTI smaller. Having [...] Weight in lbs Pre/Post Dialysis Refused Weight 226.143991565018 BP Diastolic BP Location Tested BP Systolic [...] Weight in lbs Pre/Post Dialysis Refused Weight 224.682037285946 BP Diastolic BP Location Tested BP Systolic [...] Weight in lbs Pre/Post Dialysis Refused Weight 230.916301996874 BP Diastolic BP Location Tested BP Systolic [...] Weight in lbs Pre/Post Dialysis Refused Weight 234.746403751801 BP Diastolic BP Location Tested BP Systolic [...] Weight in lbs Pre/Post Dialysis Refused Weight 235.409905274644 BP Diastolic BP Location Tested BP Systolic [...] Weight in lbs Pre/Post Dialysis Refused Weight 239.140219326478 BP Diastolic BP Location Tested BP Systolic [...] Weight in lbs Pre/Post Dialysis Refused Weight 240.139330345866 BP Diastolic BP Location Tested BP Systolic [...] Weight in lbs Pre/Post Dialysis Refused Weight 242.374087567035 BP Diastolic BP Location Tested BP Systolic [...] Weight in lbs Pre/Post Dialysis Refused Weight 243.545952190567 BP Diastolic BP Location Tested BP Systolic [...] Weight in lbs Pre/Post Dialysis Refused Weight 242.382042889810 BP Diastolic BP Location Tested BP Systolic [...] Weight in lbs Pre/Post Dialysis Refused Weight 246.004819358458 BP Diastolic BP Location Tested BP Systolic [...] Weight in lbs Pre/Post Dialysis Refused Weight 246.153490079554 BP Diastolic BP Location Tested BP Systolic [...] Weight in lbs Pre/Post Dialysis Refused Weight 211.203890111145 BP Diastolic BP Location Tested BP Systolic [...] Weight in lbs Pre/Post Dialysis Refused Weight 211.631521324294 BP Diastolic BP Location Tested BP Systolic BP Type 86 L arm 126 sitting Fetus Heart Rate Present Fetus Movement Comments Flowsheet Date 04/08/2022 Mckinney Score Blood Edema Fundus Height Fundus Units Glucose Ketones Leukocytes Nitrite Labor Signs Protein Cervic Dilation Cervic Effacement Cervic Station Type Weight in lbs Pre/Post Dialysis Refused Weight 212.84512592100 BP Diastolic BP Location Tested BP Systolic BP Type 84 134 Fetus Heart Rate Present Fetus Movement Comments Flowsheet Date 05/27/2022 Mckinney Score Blood Edema Fundus Height Fundus Units Glucose Ketones Leukocytes Nitrite Labor Signs Protein Cervic Dilation Cervic Effacement Cervic Station Type Weight in lbs Pre/Post Dialysis Refused Weight 221.178680461082 BP Diastolic BP Location Tested BP Systolic [...] Estim ated Date of Delivery false Thalassemia (Turkmen, Colombian, Mediterranean, Or Background): MCV < 80 false Neural Tube Defect (Meningomyelocele, Spina Bifi da, Or Anencephaly) false Congenital Heart Defect false Down Syndrome false Curt-Sachs (eg, Baptism, Cajun, Moldovan-Bacon) f alse Yung Disease false Sickle Cell [...] Comments 2 Induce d Regional-Ep idural 37 Peter Jerome CNKezia Maternal obesity, Gbs+ and pre eclampsia w/o severe features Discharge Information Feeding Method Contraceptive Method Maternal HG B and HCT Levels Breast Ob Episode Information Episode Created Date Number of Fetuses Patient Bloodtype Patient rh Status Prepregnancy Weight lbs Domestic Partner Domestic Partner Phone Father Name Channel Cementer Insole Machine Status 06/05/19 25 2 A Positive 198 Gabriel Mo OPEN Fetus Data First Name Last Name Admitted to NICU Weight (g) Sex Living Outcome Pediatric Complications Fetus ID Race Codes Race Delivery Type [id number] Problems Problem Notes Anatomy with [facility] - 07/31/24 1 300 [facility] U/S & OV [facility] 08/27/24 US only 1:00PM Problem Name Start Date End Date Resolution Snomed Code Not e care: history of infertility 126870715 Past history of shoulder dystocia [id number] Large for gestation age fetus 153608210 less then 30 se c shoulder dystocia Past history of pre-eclampsia [id number] bASA x2 Migraine 78252399 magnesium, Excedrin tension, sumatriptan 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 6521656 Palpitations [id number] Holter monitor faxed to [facility] 07/29 Gestational diabetes mellitus 10/10/2024 [id number] Glucose tolerance test outside reference range 10/01/2024 277042455 10/01/2024 ch ecking blood sugars for 2 week instead for doing 3 hour Twin 15896762 38 wk deliveryantenatal testing @ 32wks per MFM Scheduled rpt 08/27 us ONLY Darren Calculation [...] Weight in lbs Pre/Post Dialysis Refused Weight 207.261443420497 BP Diastolic BP Location Tested BP Systolic [...] disability paperwork. will plan on referral to [facility] for anatomy and history of HTN/preeclampsia, [...] Type Weight in lbs Pre/Post Dialysis Refused 214.783149231364 BP Diastolic BP Location Tested BP Systolic [...] Weight in lbs Pre/Post Dialysis Refused Weight 216.009838493480 BP Diastolic BP Location Tested BP Systolic [...] No bleeding. Will send for anatomy at [facility]. Will measure for belly band today [...] Type Weight in lbs Pre/Post Dialysis Refused 220.000715829612 BP Diastolic BP Location Tested BP Systolic BP Type 92 152 53 114 Fetus Heart Rate Present Fetus Movement A Yes B Yes Comments Patient is having headaches, pain, contractions, swelling, Had elevated heart rate over the weekend and get heart moniter on , 08/08/24. saw M this morning rec 2 bASA, will rpt anatomy in 4 weeks, precautions and education f/u 4 weeks Flowsheet Date 08/09/2024 Mckinney Score Blood Edema Fundus Height Fundus Units Glucose Ketones Leukocytes Nitrite Labor Signs Protein Cervic Dilation Cervic Effacement Cervic Station neg none none neg Type Weight in lbs Pre/Post Dialysis Refused 227.482422753547 BP Diastolic BP Location Tested BP Systolic BP Type 70 119 Fetus Heart Rate Present A 145 B 147 Fetus Movement A Yes B Yes Comments Patient is having contractio ns. shortness of breathe, pressure and pain in pelvic area, and right leg numbness. discussed PT, low activity, +FM, has f/u with [facility], reviewed ED records Flowsheet Date 08/22/2024 Mckinney [...] Weight in lbs Pre/Post Dialysis Refused Weight 229.209475531673 BP Diastolic BP Location Tested BP Systolic BP Type 89 133 Fetus Heart Rate Present Fetus Movement A Yes B Yes Comments Patient is having pressure, contractions and swelling. Flowsheet Date 08/29/2024 Mckinney Score Blood Edema Fundus Height Fundus Units Glucose Ketones Leukocytes Nitrite Labor Signs Protein Cervic Dilation Cervic Effacement Cervic Station Type Weight in lbs Pre/Post Dialysis Refused 232.23735881773 BP Diastolic BP Location Tested BP Systolic BP Type 85 118 Fetus Heart Rate Present A 138 Present B 142 Present Fetus Movement A Yes B Yes Comments patient is having some pain, contractions and swelling. reviewed precautions and education, kidney US wnl. plan GCT at next visit +FM x 2 mfm f/u for completion of anatomy Flowsheet Date 09/18/2024 Mckinney Score Blood Edema Fundus Height Fundus Units Glucose Ketones Leukocytes Nitrite Labor Signs Protein Cervic Dilation Cervic Effacement Cervic Station Type Weight in lbs Pre/Post Dialysis Refused BP Diastolic BP Location Tested BP Systolic BP Type Fetus Heart Rate Present Fetus Movement Comments Flowsheet Date 09/27/2024 Mckinney Score Blood Edema Fundus Height Fundus Units Glucose Ketones Leukocytes Nitrite Labor Signs Protein Cervic Dilation Cervic Effacement Cervic Station neg trace Type Weight in lbs Pre/Post Dialysis Refused 236.773111166468 BP Diastolic BP Location Tested BP Systolic BP Type 84 139 Fetus Heart Rate Present Fetus Movement A Yes B Yes Comments Patient is having some press ure, pain, contractions, swelling, nausea and vomiting. Patient is also having some left leg and right hand numbeness. finish anatomy here, reviewed precautions and education +FM x2,FHR by US today x 2 f/u here in 2 weeks cervix FT/-3 Flowsheet Date 10/09/2024 Mckinney Score Blood Edema Fundus Height Fundus Units Glucose Ketones Leukocytes Nitrite Labor Signs Protein Cervic Dilation Cervic Effacement Cervic Station Type Weight in lbs Pre/Post Dialysis Refused BP Diastolic BP Location Tested BP Systolic BP Type Fetus Heart Rate Present Fetus Movement Comments Flowsheet Date 10/09/2024 Mckinney Score Blood Edema Fundus Height Fundus Units Glucose Ketones Leukocytes Nitrite Labor Signs Protein Cervic Dilation Cervic Effacement Cervic Station neg trace Type Weight in lbs Pre/Post Dialysis Refused 234.088051665490 BP Diastolic BP Location Tested BP Systolic BP Type 87 138 Fetus Heart Rate Present Fetus Movement A Yes B Yes Comments Patient is having pain and c ontractions and swelling. 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 for document improvement specialist referral to [facility], eduction and precautions f/u 2 weeks start testing Flowsheet Date 10/22/2024 Mckinney Score Blood Edema Fundus Height Fundus Units Glucose Ketones Leukocytes Nitrite Labor Signs Protein Cervic Dilation Cervic Effacement Cervic Station Type Weight in lbs Pre/Post Dialysis Refused BP Diastolic BP Location Tested BP Systolic BP Type Fetus Heart Rate Present Fetus Movement Comments Flowsheet Date 10/23/2024 Mckinney Score Blood Edema Fundus Height Fundus Units Glucose Ketones Leukocytes Nitrite Labor Signs Protein Cervic Dilation Cervic Effacement Cervic Station Type Weight in lbs Pre/Post Dialysis Refused Weight 241.029159610857 BP Diastolic BP Location Tested BP Systolic BP Type 82 125 Fetus Heart Rate Present Fetus Movement Comments Flowsheet Date 10/23/2024 Mckinney Score Blood Edema Fundus Height Fundus Units Glucose Ketones Leukocytes Nitrite Labor Signs Protein Cervic Dilation Cervic Effacement Cervic Station neg trace Type Weight in lbs Pre/Post Dialysis Refused 241.31616048780 BP Diastolic BP Location Tested BP Systolic BP Type 82 125 Fetus Heart Rate Present Fetus Movement A Yes B Yes Comments Patient is not sleeping well , pain, contractions, swelling and having some pink discharge. ok for unisom, cervix 1.5 cm nst R x 2, growth 10/22 vtx/vtx precautions, ptl, education f/u one week reviewed blood sugars Flowsheet Date 10/30/2024 Mckinney Score Blood Edema Fundus Height Fundus Units Glucose Ketones Leukocytes Nitrite Labor Signs Protein Cervic Dilation Cervic Effacement Cervic Station Type Weight in lbs Pre/Post Dialysis Refused BP Diastolic BP Location Tested BP Systolic BP Type Fetus Heart Rate Present Fetus Movement Comments Flowsheet Date 10/30/2024 Mckinney Score Blood Edema Fundus Height Fundus Units Glucose Ketones Leukocytes Nitrite Labor Signs Protein Cervic Dilation Cervic Effacement Cervic Station Type Weight in lbs Pre/Post Dialysis Refused BP Diastolic BP Location Tested BP Systolic BP Type Fetus Heart Rate Present Fetus Movement Comments Flowsheet Date 10/30/2024 Mckinney Score Blood Edema Fundus Height Fundus Units Glucose Ketones Leukocytes Nitrite Labor Signs Protein Cervic Dilation Cervic Effacement Cervic Station Type Weight in lbs Pre/Post Dialysis Refused BP Diastolic BP Location Tested BP Systolic BP Type Fetus Heart Rate Present Fetus Movement Comments to ld for evaluation not fee ling well Menstrual History Last Menstrual Date Menses Monthly On Bcp Conception Prior Menses Frequency Hcg Plus Date Menarche Onset Age Delivery Information Delivery Date Delivery Type Labor Anesthesia Weeks Gestation Incision Type Labor Labor Length Hrs Delivered By Post Complications Tubal Sterilization Discharge Date Comments Discharge Information Feeding Method Contraceptive Method Maternal HG B and HCT Levels
--- OUTSIDE RECORDS SUMMARY | 2024-11-05 06:25 | XMS_ITS | Continuity of Care Document ---
Author Organization [facility] Address [address] [place] [address] [address] [place] [address] Phone Care Team Providers Care Javascript Software Engineer Name Role Phone Carol OD OD, [...] Procedure Date OFFICE/OUTPATIENT VISIT, [facility] Comp cont lens eval No Charge Visit N/C Glasses Check Advance Directives Directive Yes / No Effective Date File Name No Information Encounters Encounter Description Practice Location Reason(s) For Visit Diagnoses Date Provider Providers Copied on Encounter [facility], [address] [place] [address] [address], [place], [place], [id number], tel:[phone] OPH CONSULT KENTRELL LOPEZ No Information 3 Carol OD Georgina. [address], [address], [place], [place], [id number], [place]. tel:[phone] Referring Provider: Georgina Medina OD, [address], [place], [address] . tel:[phone] OFFICE/OUTPA TIENT VISIT, [facility], [address] [place] [address], [id number], tel:[phone] OPH CONSULT KENTRELL LOPEZ blurry vision (chief complaint) dry eye (chief complaint) Krystin's thyroiditisMyo roger, bilateralTear film insufficiency of bilateral lacrimal glandsOther vitreous opacities, bilateralCorne al neovasculariza tion of both eyes 2 Derheimer OD Georgina. [address], [address] [place] [address], [id number], [place]. tel:[phone] Referring Provider: Scooter White, [address], [place], [address]. tel:[phone] [facility], [address] [place] [address], [id number], tel:[phone] Optical Services KENTRELL LOPEZ No Information 6 Derheimer OD Georgina. [address], [address] [place] [address], [id number], [place]. tel:[phone] Referring Provider: Georgina Medina OD, [address], [place], [address] . tel:[phone] [facility], [address] [place] [address], [id number], tel:[phone] OPH CONSULT KENTRELL LOPEZ blurry vision (chief complaint) Myopia, bilateral 6 Derheimer OD Georgina. [address], [place], [place], [id number], [place]. tel:[phone] Referring Provider: Georgina Medina OD, [address], [place], [address] . tel:[phone] [facility], [address] [place] [address], [id number], tel:[phone] OPH CONSULT KENTRELL LOPEZ No Information 1 Beth Cohenl. [address], [place], [place], [id number], [place]. tel:[phone] Family History Family Member Type Diagnosis Age [...]
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
--- OUTSIDE RECORDS SUMMARY | 2024-11-05 06:25 | XMS_ITS | Referral Summary ---
Author Organization [facility] Address [address] [place] [address] Care Team Providers Care Peach Grower Name Role Phone Robby Torres MD Unavailable [phone] Yon Gutierrez MD Primary Care Provider Malik Cates MD Unavailable Cindi Bryant NP Unavailable [phone] Sakshi Biggs DO Unavailable [phone] Encounters Date Type Department Care Team Description 08/09/2024 8:15 AM CDT Office Visit [facility] [address] [place] [address] Sakshi Biggs, Otorrhea of right ear (Primary Dx) from Last 3 Months Allergies Active Allergy Reactions Criticality Noted Date Comments Cephalexin Hives Medium 12/21/2023 Prednisone Hives Medium 08/09/2024 Medications aspirin 81 mg enteric coated tablet Take 1 tablet (81 mg total) by mouth daily Active vit 76-[id number]-[id number]-dh a 27mg iron- 800 mcg-250 mg capsule [...] one by Dr. Davila for endometriosis at [facility] - this is her second period currently, [...] possible Assessment & Plan (06/20/2023 9:50 AM PROPULSION SYSTEMS ENGINEER): Hearing test, plan for bilateral myringotomy [...] managed by endocrinology - Dr. Cates (her twisting frame fixer) tried some medications without success - insurance [...] managed by endocrinology - Dr. Cates (her twisting frame fixer) tried some medications without success - insurance [...] managed by endocrinology - Dr. Cates (her twisting frame fixer) tried some medications without success - insurance limitations can affect it - start Phentermine, taper up dose sent - f/u in 6 weeks Assessment & Plan (05/28/2023 3:41 PM PROPULSION SYSTEMS ENGINEER): Wt Readings from Last 3 Encounters: [...] months Assessment & Plan (05/28/2023 3:35 PM PROPULSION SYSTEMS ENGINEER): - chronic, recurrent condition, worse - [...] disease. Assessment & Plan (05/28/2023 3:36 PM PROPULSION SYSTEMS ENGINEER): - chronic, recurring condition - has [...] Recommend thyroid ultrasound. Instructed to inform her twisting frame fixer about MRI findings. US Thyroid 09/2022 IMPRESSION: [...] recommended. Assessment & Plan (05/28/2023 3:28 PM PROPULSION SYSTEMS ENGINEER): Chronic condition, stable/controlled Diagnosed in 2018 [...] 02/13/2019 Assessment & Plan (05/28/2023 3:38 PM PROPULSION SYSTEMS ENGINEER): - recent onset - was seen [...] 019 Assessment & Plan (05/26/2023 8:54 AM PROPULSION SYSTEMS ENGINEER): - had EGD in past and was found to have H. Pylori which was being treated - no current issues at this time Chronic gastritis 11/26/2018 Overview (05/03/2023): EGD - H pylori, GI S/P hemorrhoidectomy 11/26/2018 Conductive hearing loss, middle ear 10/18/2018 Assessment & Plan (04/03/2024 2:03 PM PROPULSION SYSTEMS ENGINEER): Avoid ear cleaning techniques Avoid water to ears Hearing test today was normal, ear tubes open suspect referred ear fullness from neck or jaw Chronic serous otitis media of left ear 10/19/19 19 Assessment & Plan (04/03/2024 1:03 PM PROPULSION SYSTEMS ENGINEER): Avoid ear cleaning techniques Avoid water [...] 05/28/2023 Overview (05/03/2023): Vaginitis;Recorded Elsewhere: No Location: [facility] Source: EHR Chronic: N Practice ID: [id number] Billable Time: 10:45:00 AM TMJ (temporomandibular joint syndrome) 01/04/2019 05/28/2023 Chronic gastritis 11/26/2018 05/26/2023 Prolapsed internal hemorrhoids, grade 4 09/26/2018 05/26/2023 Overview (09/26/2018): Added automatically from request for surgery [id number] Assessment & Plan (09/26/2018 2:45 PM CDT): [...] on file Legal Sex Female 10:18 AM PROPULSION SYSTEMS ENGINEER Gender Identity Not on file Sexual Orientation Not on file Last Filed Vital Signs Vital Sign Reading Time Taken Comments Blood Pressure 138/88 04/06/2024 10:25 PM PROPULSION SYSTEMS ENGINEER Pulse 78 04/06/2024 11:45 PM PROPULSION SYSTEMS ENGINEER Temperature 36.3 C (97.4 F) 04/06/2024 10:25 PM PROPULSION SYSTEMS ENGINEER Respiratory Rate 18 04/06/2024 10:25 PM PROPULSION SYSTEMS ENGINEER Oxygen Saturation 100% 04/06/2024 11:45 PM PROPULSION SYSTEMS ENGINEER Inhaled Oxygen Concentration - - Weight 85.7 kg (189 lb) 04/06/2024 10:25 PM PROPULSION SYSTEMS ENGINEER Height 165.1 cm (5' 5) 04/06/2024 10:25 PM PROPULSION SYSTEMS ENGINEER Body Mass Index 31.45 04/06/2024 10:25 PM PROPULSION SYSTEMS ENGINEER Plan of Treatment Not on file Medical Devices Implanted Type Area Engineering Design Supervisor Device Identifier Shelf Expiration Date Model / Serial / Lot Olymp[employer] 1.32mm 4.8mm Modify Ear T Tube Ventilation Ultrasil Sterile Blue [id number] - [id number] Implanted:Qty: 1 on 07/11/2023 by Sakshi Biggs DO at [facility] Left: Ear [employer] 01/03/2033 [id number] / / [id number] [employer] 1.32mm 4.8mm Modify Ear T Tube Ventilation Ultrasil Sterile Blue [id number] - [id number] Implanted:Qty: 1 on 07/11/2023 by Sakshi Biggs DO at [facility] Right: Ear [employer] 01/18/2033 [id number] / / [id number] [facility] Member Subscriber Plan / Payer (Ef fective 2021-Present) Name:Yessica Mo Relation to Subscriber:Spouse Name:Luis Antonio Mo Date of :1987 (Home) Address: [address] [place] [id number] Payer ID:[id number] (NAIC) Type:[facility] HMO/PPO Address: [place] [phone] Care Teams Peach Grower Relationship Specialty Start Date End Date Yon Gutierrez MD PCP - General Family Medicine 04/04/23 Robby Torres MD Referring Physician Family Medicine 08/22/19 Malik Cates MD [address] [place] [address] Referring Physician General Surgery 05/26/23 Cindi Bryant NP [address] [place] [address] Nurse Practitioner Obstetrics and Gynecology 05/26/23 Sakshi Biggs DO [address] [place] [address] [address] INGRAM [address] [address] Consulting Physician Otolaryngology 05/26/23
--- OUTSIDE RECORDS SUMMARY | 2024-11-05 06:26 | XMS_ITS | Continuity of Care Document ---
Author Organization [facility] Address [address] [facility] [place] [address] Phone Care Team Providers Care Traffic Reporter Name Role Phone Robby Torres MD Unavailable [...] Diagnoses Date Provider Providers Copied on Encounter [facility], [address] [facility] [place], [id number], [place] tel:[phone] [facility] No Information 1 Brian Bustamante. [address], [address], [place], [place], [address] , [place]. tel:[phone] [facility], [address], [place], [place], [address], [place] tel:[phone] [facility] No Information 0 Brian Bustamante. [address], [address], [place], [place], [address] , [place]. tel:[phone] OFFICE/OUTPA TIENT VISIT, [facility], [address], [place], [place], [address], [place] tel:[phone] [facility] anxiety1 (chief complaint) Generalized Anxiety DisorderHypothyroid ism 0 Brian Bustamante. [address], [address], [place], [place], [address] , [place]. tel:[phone] Referring Provider: Robby Torres [address], [place], [place], [address]. tel:[phone] OFFICE/OUTPA TIENT VISIT, [facility], [address], [place], [place], [address], [place] tel:[phone] [facility] anxiety1 (chief complaint) Generalized Anxiety DisorderGoiter 0 Brian Bustamante. [address], [place], [place], [address] , [place]. tel:[phone] Referring Provider: Robby Torres [address], [place], [place], [address]. tel:[phone] OFFICE/OUTPA TIENT VISIT, [facility], [address], [place], [place], [address], [place] tel:[phone] [facility] thyroid nodule1 (chief complaint) anxiety1 (chief complaint) GoiterGeneralized Anxiety Disorder 0 Brian Menendez [address], [address], [place], [place], [address] , [place]. tel:[phone] Referring Provider: Gissel Banks [address], [place], [place], [address]. tel:[phone] OFFICE/OUTPA TIENT VISIT, [facility], [address], [place], [place], [address], [place] tel:[phone] [facility] anxiety1 (chief complaint) iron1 (chief complaint) thyroid1 (chief complaint) Disorder of iron metabolism, unspecifiedGoiterGe neralized Anxiety Disorder Lonnie-0 0 Brian Bustamante. [address], [address], [place], [place], [address] , [place]. [phone] Referring Provider: Gissel Banks [address], [place], [place], [address]. tel:[phone] OFFICE/OUTPA TIENT VISIT, [facility], [address], [place], [place], [address], [place] tel:[phone] [facility] ankle pain1 (chief complaint) fatigue1 (chief complaint) thyroid1 (chief complaint) anemia1 (chief complaint) Pain in right ankleFatigueAnemiaG oiter 0 Brian Bustamante. [address], [address], [place], [place], [address] , [place]. tel:[phone] Referring Provider: Gissel Banks [address], [place], [place], [address]. tel:[phone] OFFICE/OUTPA TIENT VISIT, [facility], [address], [place], [place], [address], [place] tel:[phone] [facility] rash1 (chief complaint) Allergic contact dermatitis due to plants, except food Aug- 0 Brian Bustamante. [address], [address], [place], [place], [address] , [place]. [phone] Referring Provider: Gissel Banks [address], [place], [place], [address]. tel:[phone] OFFICE/OUTPA TIENT VISIT, [facility], [address], [place], [place], [address], tel:[phone] [facility] Medicine thyroid1 (chief complaint) ferritin1 (chief complaint) IgA (chief complaint) fatigue1 (chief complaint) GoiterDisorder of iron metabolism, unspecifiedVitamin D deficiency, unspecifiedRaised level of immunoglobulinAnemi aH. pylori as the cause of diseases classified elsewhereFatigue 0 Brian Bustamante. [address] [facility] [place], [place], [address] , . tel:[phone] Referring Provider: Gissel Banks [place], [address]. tel:[phone] PREV VISIT, NEW, AGE 18-39 [facility], [address] [place] [address] [facility] [place], [address], tel:[phone] [facility] PHysical (chief complaint) Encntr for general adult medical exam w/o abnormal findings 0 Brian Bustamante. [address], [facility] [address], [place], [place], [address] , [place]. tel:[phone] Referring Provider: Robby Torres [address] [place] [address], [id number]. tel:[phone] Family History Family Member Type Diagnosis Age [...] BIOPSY ordered Referral Referred To: Joe Fontana [id number] [facility]
[address] [place], [place] [id number] Ordered: Referrals: Allopathic & Osteopathic Physicians : [...] keira with endo fatigue1 Pt has mild body component engineer mark fatigue Pt had sleep study done which was negative for sleep apnea ankle pain1 Pt was at [employer] round and she stepped on gravel which [...]
--- OUTSIDE RECORDS SUMMARY | 2024-11-05 06:26 | XMS_ITS | Clinical Summary ---
Author Organization [facility] Address [address] [place] [address] Care Team Providers Care Reading Aide Name Role Phone Scooter White DO Primary Care Provider [phone] [facility],non-owned Affiliates and Associated Physician Practices is amultiple site organization consisting of ambulatory clinics and hospital sitesin [place], [place] and [place]. This disclosure is being madepursuant to the Care Everywhere program and may not contain all information available regarding this patient. Last updated 18.[facility] Allergies Active Allergy Reactions Criticality Noted Date [...] Type Department Care Team Description 10/28/2024 Telephone [facility] Maternal & Care [address] [place], [place] [id number] Silvina León Appointment 09/24/2024 1:00 PM CDT - 09/24/2024 11:59 PM CDT Hospital Encounter [facility] [address] [place] [address] Derick Mcclendon MD CURRICULUM AND INSTRUCTION DIRECTOR Discharge Disposition: Home or Self Care 08/27/2024 12:58 PM CDT - 08/27/2024 11:59 PM CDT Hospital Encounter [facility] [address] [place] [address] Christiano Tristan MD Discharge Disposition: Home or [...] on file Legal Sex Female 1:08 PM STAFF READINESS OFFICER Gender Identity Not on file Sexual Orientation [...] (HCC) Dichorionic diamniotic twin in second trimester ([facility]) 28 weeks gestation of ([facility]) Supervision of high risk in second trimester ([facility]) Obesity affecting in second trimester, unspecified obesity type ([facility]) Encounter for follow-up ultrasound of anatomy ([facility]) Encounter for ultrasound to assess growth ([facility]) SONOGRAM - COMPLETE Routine 08/27/2024 1 2:52 PM CDT Dichorionic diamniotic twin in second trimester ([facility]) History of pre-eclampsia in prior , currently ([facility]) 24 weeks gestation of ([facility]) Supervision of high risk in second trimester ([facility]) from Last 3 Months Results * SONOGRAM - COMPLETE (09/24/2024 1:09 PM CDT) Only the most recent of2 resultswithin the time period is included. Linked Results Indication ======== DA/DC Twins Incomplete Anatomy Screen x2 History of Preeclampsia, Obesity in , Class II History ====== OB History 4. Para 3 [id number] 1. live 2011. Gest. age 41 w [...] 2 lb 14 oz EFW by Hadlock ([id number]) EFW discordance 4.6 % appropriate Fetus B: Biometry BPD 69.2 mm 27w 6d 42% Hadlock HC 260.6 mm 28w 2d 39% Hadlock AC 252.3 mm 29w 3d 88% Hadlock Femur 51.1 mm 27w 3d 25% Hadlock Humerus 48.6 mm 28w 4d 68% Robinson HC / AC 1.03 Weight Calculation: EFW 1,242 g 69% Hadlock EFW (lb,oz) 2 lb 12 oz EFW by Hadlock ([id number]) EFW discordance 4.6 % appropriate Fetus A: [...] Thorax RVOT view. LVOT view. 3-vessel view. 9-xqdbhg-sbaddew view. Situs. Bicaval view. Ductal arch view. [...] view. RVOT view. LVOT view. 3-vessel view. 7-kfsrsv-amlpars view. Situs. Aortic arch view. Bicaval view. [...] and begin weekly testing Coding ====== Procedures [id number]: US Preg Uterus Follow Up. x2 Timecros PACS Anatomical Region Laterality Modality Other 09/24/2024 1:09 PM CDT R Bert Garcia MD [facility] ORDERABLES Edited Result - Final from Last 3 Months Insurance [employer] Member Subscriber Plan / Payer (Ef fective 2021-Present) Name:Yessica Mo Relation to Subscriber:Spouse Name:SOLO MO Date of :1987 (Home) Address: [address] [place] [address] Payer ID:[id number] (NAIC) Type:PPO Address: [place] [phone] [place] [address] Care Teams Reading Aide Relationship Specialty Start Date End Date Scooter White DO PCP - General 03/16/22
--- OUTSIDE RECORDS SUMMARY | 2024-11-05 06:26 | XMS_ITS | Encounter Summary ---
Author Organization [facility] Address [address] [place] [address] Phone Care Team Providers Care Utility Repairer Name Role Phone Manda Singh MD Unavailable [phone] Robby Torres Primary Care Provider [phone] Scooter White DO Primary Care Provider Malik Cates MD Unavailable Ulices Marino MD Unavailable Yon Gutierrez MD Primary Care Provider Georgina Fontenot APRN, [facility] Unavailable [phone] Encounter Details Date Type Department Care Team (Late st Contact Info) Description 03/09/2020 Transcribe Orders [facility] Preop/Pacu II [address] [place] [address] Walter Blake MD [address] [place] [address] Preop testing (Primary Dx) Social History Tobacco [...] COVID-19? Unable to assess 03/10/2020 1:32 PM SENIOR PROCUREMENT MANAGER documented as of this encounter Plan of Treatment Not on file documented as of this encounter Visit Diagnoses Diagnosis Preop testing- Primary Preoperative examination, unspecified documented in this encounter Additional Health Concerns Infection Onset Date Last Indicated Resolved Time COVID - 19 03/10/2020 03/10/2020 03/16/2020 11:4 0 AM SENIOR PROCUREMENT MANAGER Assessment Noted Time PHQ-9 Depression Total Score: 0 02/11/20 20 12:57 PM CDT documented as of this encounter Care Teams Utility Repairer Relationship Specialty Start Date End Date Robby Torres [address] [facility] [place] [address] PCP - General Family Medicine 02/11/20 03/16/21 Scooter White DO [facility] [place] [address] PCP - General Internal Medicine 03/17/21 06/22/23 Yon Gutierrez MD [address] [facility] [address] [place] [address] PCP - General Family Medicine 06/23/23 Manda Singh MD Obstetrics & Gynecology 02/11/20 Malik Cates MD #2 [facility] [address] [place] [address] Consulting Physician Endocrinology 12/13/21 Ulices Marino MD [address] [address] Consulting Physician Colon and Rectal Surgery 07/06/22 Georgina Fontenot APRN, [facility]P #[address] [place] [address] Nurse Practitioner Advanced Practice Nurse 09/25/24 documented as of this encounter
--- OUTSIDE RECORDS SUMMARY | 2024-11-05 06:26 | XMS_ITS | Encounter Summary ---
Author Organization [facility] Address [address] [place] [address] Care Team Providers Care Tafe Lecturer Name Role Phone Scooter White DO Primary Care Provider Encounter Details Date Type Department Care Team (Late st Contact Info) Description 11/06/2018 Lab Requisition [facility] Care Pathology Lab [address] [place] [address] Cindi Herrera MD [address] [place] [address] Enlarged lymph nodes Social History Tobacco Use Types Packs/Day Years Used Date Smoking Tobacco: Never Smokeless Tobacco: Never Alcohol Use Standard Drinks/Week Comments No 0 (1 standard drink = 0.6 oz pur e alcohol) Comments No Sex and Gender Information Value Date Recorded Sex Assigned at Not on file Legal Sex Female 1:08 PM FACING END 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 - See interpretation. 9 5:33 PM [facility] at 1733 CDT Flow Cytometry [...] cytometry specimen is reviewed for quality assurance assistant purposes. In summary, the left cervical lymph node specimen shows no evidence of a non-Hodgkin lymphoma. Correlation with additional clinical information and the concurrent biopsy specimen is required. KR 9 5:33 PM [facility] Flow Cytometry Results Differential Result Comment Flow Cell Count /uL [id number] Total Viability % 86.0 Lymphocytes % 97 Dim CD45 Region % 0 Monocytes % 1 Granulocytes % 1 9 5:33 PM [facility] Reason for test Enlarged lymph nodes 785.6 9 5:33 PM [facility] Client Specimen ID # [id number] 9 5:33 PM [facility] Number of markers 16 were performed. A Flow CD3 A Flow CD10 A Flow CD20 A Flow CD23 A Flow CD2 A Flow CD4 A Flow CD1a A Flow CD5 A Flow CD19 A Flow CD34 A Flow CD45 A Flow CD7 A Flow CD8 A Flow CD30 A Ho-Ho-Kus+CD19+ A Lambda+CD19+ 9 5:33 PM [facility] Disclaimer Test performed at [facility], [address] [place], [place], [address]. *The established laboratory minimum viability is 70%. [...] complexity clinical testing. 9 5:33 PM CDT [facility] PATH[facility] Embedded Images 9 5:33 PM CDT [facility] Pathology/Cytolo gy ENTIRE CERVICAL LYMPH NODE / Unknown 11/05/2018 11:02 AM CDT 11/06/2018 2:01 PM CDT Cindi Herrera MD LAB - PATHOLOGY/CYTOLOGY ORDERA BLE Final Result [facility] [address] [facility] [place] [address], [facility] [phone] documented in this encounter Visit Diagnoses Diagnosis Enlarged lymph nodes Enlargement of lymph nodes documented in this encounter Care Teams Tafe Lecturer Relationship Specialty Start Date End Date Scooter White DO PCP - General 03/16/22 documented as of this encounter
--- OUTSIDE RECORDS SUMMARY | 2024-11-05 06:26 | XMS_ITS | Encounter Summary ---
Author Organization [facility] Address [address] [place] [address] Phone Care Team Providers Care Excel Vba Developer Name Role Phone Manda Singh MD Unavailable [phone] Robby Torres Primary Care Provider [phone] Scooter White DO Primary Care Provider Malik Cates MD Unavailable Ulices Marino MD Unavailable Yon Gutierrez MD Primary Care Provider Georgina Fontenot APRN, [facility] Unavailable [phone] Encounter Details Date Type Department Care Team (Late st Contact Info) Description 04/09/2020 Telephone [facility] [address] [address] [address] Saud Dalton MD [address] [place] [phone] Social History Tobacco Use Types Packs/Day [...] COVID-19? No / Unsure 03/20/2020 6:06 AM FRONT DESK LEAD documented as of this encounter Miscellaneous Notes * Telephone Encounter - Mahnaz Alaniz - 04/09/2020 2:50 PM CST Patient no showed her appointment, left voice message to call the office to reschedule. Sent out a no show letter. T DESK LEAD documented in this encounter Plan of Treatment Not on file documented as of this encounter Visit Diagnoses Not on filedocumented in this encounter Additional Health Concerns Assessment Noted Time PHQ-9 Depression Total Score: 0 02/11/20 20 12:57 PM CDT documented as of this encounter Care Teams Excel Vba Developer Relationship Specialty Start Date End Date Robby Torres [address] [place] [address] PCP - General Family Medicine 02/11/20 03/16/21 Scooter White DO [address] [place] [address] [place] [address] PCP - General Internal Medicine 03/17/21 06/22/23 Yon Gutierrez MD [address] [place] [address] [address] PCP - General Family Medicine 06/23/23 Manda Singh MD Obstetrics & Gynecology 02/11/20 Malik Cates MD #[address] [address] Consulting Physician Endocrinology 12/13/21 Ulices Marino MD #[address] [address] Consulting Physician Colon and Rectal Surgery 07/06/22 Georgina Fontenot APRN, MATERIAL FLOW ENGINEER [address] [place] [address] Nurse Practitioner Advanced Practice Nurse 09/25/24 documented as of this encounter
--- OUTSIDE RECORDS SUMMARY | 2024-11-05 06:26 | XMS_ITS | Clinical Summary ---
Author Organization [facility] Address [address] [facility], [facility] [address] [place] [address] Phone Care Team Providers Care Farm Assistant Name Role Phone Manda Singh MD Unavailable [phone] Malik Cates MD Unavailable Ulices Marino MD Unavailable Yon Gutierrez MD Primary Care Provider Georgina Fontenot KING MAKER, RADIOLOGIC THERAPIST Unavailable [phone] Allergies Active Allergy Reactions Criticality Noted Date [...] Transcribe Orders [facility] [address] [place] [address] Provider, Not On File Low back pain, [...] 97.5 kg (215 lb) 04/19/2023 8:07 AM NEON MOLDER Height 165.1 cm (5' 5) 04/19/2023 8:07 AM NEON MOLDER Body Mass Index 35.78 04/19/2023 8:07 AM NEON MOLDER Plan of Treatment Health Maintenance Due Date [...] this topic Medical Devices Implanted Type Area Warper Tender Device Identifier Shelf Expiration Date Model / Serial / Lot Tube Ventilation 5mm Carey Triune - [id number] Implanted:Qty: 1 on 11/05/2018 [facility] IMPLANT Left: Ear [employer] 04/06/2020 510-122 / 510-122 / [id number] Description:Ear tubes came f rom the same package Tube Ventilation 5mm Carey Triune - [id number] Implanted:Qty: 1 on 11/05/2018 by [facility] IMPLANT Right: Ear [employer] 04/06/2020 510-122 / 510-122 / [id number] Description:Ear tubes came f rom the same package Insurance * Guarantor: [facility] Account Type Relation to Patient Date of Phone Billing Address Institutional Other [address] [place] [address] Care Teams Farm Assistant Relationship Specialty Start Date End Date Yon Gutierrez MD [address] [address] PCP - General Family Medicine 06/23/23 Manda Singh MD Obstetrics & Gynecology 02/11/20 Malik Cates MD #[address] [address] Consulting Physician Endocrinology 12/13/21 Ulices Marino MD #[address] [address] Consulting Physician Colon and Rectal Surgery 07/06/22 Georgina Fontenot, KING MAKER, RADIOLOGIC THERAPIST [address] [place] [address] Nurse Practitioner Advanced Practice Nurse 09/25/24
--- OUTSIDE RECORDS SUMMARY | 2024-11-05 06:26 | XMS_ITS | Encounter Summary ---
Author Organization [facility] Address [address] [place] [address] Phone Care Team Providers Care Hose Wrapper Name Role Phone Manda Singh MD Unavailable Scooter White DO Primary Care Provider Malik Cates MD Unavailable Ulices Marino MD Unavailable Yon Gutierrez MD Primary Care Provider Georgina Fontenot APRN, SHELL PLATER Unavailable [phone] Encounter Details Date Type Department Care Team (Late st Contact Info) Description 07/26/2021 [facility] [address] [place] [address] Edita Garza, TRUNG, SENIOR JAVA ARCHITECT [address] [place] [address] Encounter for pre-employment examination Social [...] >=1.1 AI 07/26/2021 10:00 PM CDT [facility] Blood No Phlebotomy Charged / Unknown 07/26/2021 9:00 AM CDT 07/26/2021 2:15 PM CDT Narrative [facility] - 07/26/2021 10:00 PM CDT <= 0.8 Negative. No detectable VZV IgG antibody. 0.9 - 1.0 Equivocal >=1.1 Positive Antibody testing was performed by multiplex flow immunoassay on the BioPlex platform. Edita L Behrends COIN COLLECTOR, SENIOR JAVA ARCHITECT IMMUNOLOGY ORDERABL ES Final Result Performing Organization Address [facility] de Phone Number [facility] [address] [place] [address], [place] * (ABNORMAL) RUBEOLA (MEASLES) IGG (07/26/2021 9:00 AM CDT) MEASLES AB IGG 0.7(L) >=1.1 AI 07/26/2021 10:00 PM CDT [facility] Blood No Phlebotomy Charged / Unknown 07/26/2021 9:00 AM CDT 07/26/2021 2:15 PM CDT Narrative [facility] - 07/26/2021 10:00 PM CDT <= 0.8 Negative. No detectable Measles IgG antibody. 0.9 - 1.0 Equivocal >=1.1 Positive Antibody testing was performed by multiplex flow immunoassay on the BioPlex platform. Edita L Behrends COIN COLLECTOR, SENIOR JAVA ARCHITECT IMMUNOLOGY ORDERABL ES Final Result Performing Organization Address [facility] de Phone Number [facility] [address] [place] [address], [place] * RUBELLA IMMUNITY IGG (07/26/2021 9:00 AM CDT) [facility] Immune Immune, Invalid 07/26/2021 10:00 PM CDT [facility] Blood No Phlebotomy Charged / Unknown 07/26/2021 9:00 AM CDT 07/26/2021 2:15 PM CDT Narrative [facility] - 07/26/2021 10:00 PM CDT Antibody testing was performed by multiplex flow immunoassay on the BioPlex platform. us Edita Garza COIN COLLECTOR, SENIOR JAVA ARCHITECT CHEMISTRY ORDERABLE S Final Result Performing Organization Address [facility] Co de Phone Number [facility] [address] [place] [address], [place] * MUMPS IGG (07/26/2021 9:00 AM CDT) Mumps Ab IgG 1.2 >=1.1 AI 07/26/2021 10:00 PM CDT [facility] Blood No Phlebotomy Charged / Unknown 07/26/2021 9:00 AM CDT 07/26/2021 2:15 PM CDT Narrative [facility] - 07/26/2021 10:00 PM CDT <= 0.8 Negative. No detectable Mumps IgG antibody. 0.9 - 1.0 Equivocal >=1.1 Positive Antibody testing was performed by multiplex flow immunoassay on the BioPlex platform. us Edita Garza COIN COLLECTOR, SENIOR JAVA ARCHITECT IMMUNOLOGY ORDERABL ES Final Result Performing Organization Address [facility] Co de Phone Number [facility] [address] [place] [address], [place] * QUANTIFERON-TB GOLD PLUS (07/26/2021 9:00 AM CDT) NIL CONTROL 0.04 <8.01 IU/mL 07/28/2021 1:01 PM CDT [facility] TB ANTIGEN 1 0.00 <0.35 IU/mL 07/28/2021 1:01 PM CDT [facility] TB ANTIGEN 2 0.00 <0.35 IU/mL 07/28/2021 1:01 PM CDT [facility] MITOGEN CONTROL 9.64 >0.49 IU/mL 07/29/19 1:01 PM CDT [facility] INTEPRETATION TB NEGATIVE NEGATIVE, NEGATIVE (TB antigen response less than 25% of internal negative control value) 07/28/2021 1:01 PM CDT [facility] Comment:No immune response t o Mycobacterium tuberculosis antigens was noted. M. tuberculosis infection unlikely. Blood No Phlebotomy Charged / Unknown 07/26/2021 9:00 AM CDT 07/26/2021 2:15 PM CDT Narrative [facility] - 07/28/2021 1:01 PM CDT A [...] immunocompromised individuals. https://www.cdc.gov/tb/publications/guidelines/testing.htm us Edita L Behrends COIN COLLECTOR, SENIOR JAVA ARCHITECT IMMUNOLOGY ORDERABL ES Final Result Performing Organization Address [facility] Co de Phone Number [facility] [address] [place] [address], [place] * HEPATITIS B SURFACE ANTIBODY (HBSAB) (07/26/2021 9:00 AM CDT) HEPATITIS B SURFACE ANTIBODY 8.33 mIU/mL [facility] ARCH [id number] B 07/27/2021 12:02 AM CDT [facility] Comment: Grayzone Range: >=8.00 to <=12.00 The immune status of the individual should be further assessed considering other factors, such as clinical status, follow-up testing, associated risk factors and the use of additional diagnostic information. Blood No Phlebotomy Charged / Unknown 07/26/2021 9:00 AM CDT 07/26/2021 2:15 PM CDT us Edita Garza COIN COLLECTOR, SENIOR JAVA ARCHITECT CHEMISTRY ORDERABLE S Final Result Performing Organization Address [facility] Co de Phone Number [facility] [address] [place] [address], [place] documented in this encounter Visit Diagnoses Diagnosis Encounter for pre-employment examination Health examination of defined subpopulation documented in this encounter Additional Health Concerns Assessment Noted Time PHQ-9 Depression Total Score: 0 02/11/20 20 12:57 PM CDT documented as of this encounter Care Teams Hose Wrapper Relationship Specialty Start Date End Date Scooter White DO [address] [place] [address] [place] [address] PCP - General Internal Medicine 03/17/21 06/22/23 Yon Gutierrez MD [address] [place] [address] [address] PCP - General Family Medicine 06/23/23 Manda Singh MD Obstetrics & Gynecology 02/11/20 Malik Cates MD #[address] [address] Consulting Physician Endocrinology 12/13/21 Ulices Marino MD #[address] [address] Consulting Physician Colon and Rectal Surgery 07/06/22 Georgina Fontenot APRN, SHELL PLATER [address] [place] [address] Nurse Practitioner Advanced Practice Nurse 09/25/24 documented as of this encounter
--- OUTSIDE RECORDS SUMMARY | 2024-11-05 06:27 | XMS_ITS | Continuity of Care Document ---
Author Organization [facility] Address [address] [place] [address] [address] [place] [address] Phone Care Team Providers Care Human Resources Director Name Role Phone Carol OD OD, [...] - Active Procedures Procedure Date OFFICE/OUTPATIENT VISIT, [facility] Comp cont lens eval No Charge Visit N/C Glasses Check Advance Directives Directive Yes / No Effective Date File Name No Information Encounters Encounter Description Practice Location Reason(s) For Visit Diagnoses Date Provider Providers Copied on Encounter [facility], [address] [place] [address] [address], [place], [place], [id number], tel:[phone] OPH CONSULT KENTRELL LOPEZ No Information 3 Carol OD Georgina. [address] [facility], [address], [place], [place], [id number], [place]. tel:[phone] Referring Provider: Georgina Medina OD, [address] [facility] [address], [place], [address] . tel:[phone] OFFICE/OUTPA TIENT VISIT, [facility], [address] [place] [address], [id number], tel:[phone] OPH CONSULT KENTRELL LOPEZ blurry vision (chief complaint) dry eye (chief complaint) Krystin's thyroiditisMyo roger, bilateralTear film insufficiency of bilateral lacrimal glandsOther vitreous opacities, bilateralCorne al neovasculariza tion of both eyes 2 Derheimer OD Georgina. [address], [address] [place] [address], [id number], [place]. tel:[phone] Referring Provider: Scooter White, [address], [place], [address]. tel:[phone] [facility], [address] [place] [address], [id number], tel:[phone] [facility] KENTRELL LOPEZ No Information 6 Derheimer OD Georgina. [address], [address] [place] [address], [id number], [place]. tel:[phone] Referring Provider: Georgina Medina OD, [address], [place], [address] . tel:[phone] [facility], [address] [place] [address], [id number], tel:[phone] OPH CONSULT KENTRELL LOPEZ blurry vision (chief complaint) Myopia, bilateral 6 Derheimer OD Georgina. [address], [place], [place], [id number], [place]. tel:[phone] Referring Provider: Georgina Medina OD, [address], [place], [address] . tel:[phone] [facility], [address] [place] [address], [id number], tel:[phone] OPH CONSULT KENTRELL LOPEZ No Information 1 Beth Cohenl. [address], [place], [place], [id number], [place]. tel:[phone] Family History Family Member Type Diagnosis Age [...]
--- OUTSIDE RECORDS SUMMARY | 2024-11-05 06:27 | XMS_ITS | Continuity of Care Document ---
Author Organization [facility] Address [address] [place] [address] [place] [address] Phone Care Team Providers Care Barrel Filler Name Role Phone Robby Torres MD Unavailable [...] Diagnoses Date Provider Providers Copied on Encounter [facility], [address] [facility] [place], [id number], [place] tel:[phone] [facility] No Information 1 Brian Bustamante. [address], [place], [place], [address] , [place]. tel:[phone] [facility], [address], [place], [place], [address], [place] tel:[phone] [facility] No Information 0 Brian Bustamante. [address], [place], [place], [address] , [place]. tel:[phone] OFFICE/OUTPA TIENT VISIT, [facility], [address], [place], [place], [id number], [place] tel:[phone] [facility] anxiety1 (chief complaint) Generalized Anxiety DisorderHypothyroid ism 0 Brian Bustamante. [address], [place], [place], [address] , [place]. tel:[phone] Referring Provider: Robby Torres [address], [place], [place], [address]. tel:[phone] OFFICE/OUTPA TIENT VISIT, [facility], [address], [place], [place], [address], [place] tel:[phone] [facility] anxiety1 (chief complaint) Generalized Anxiety DisorderGoiter 0 Brian Bustamante. [address], [place], [place], [address] , [place]. tel:[phone] Referring Provider: Robby Torres [address], [place], [place], [address]. tel:[phone] OFFICE/OUTPA TIENT VISIT, [facility], [address], [place], [place], [address], [place] tel:[phone] [facility] thyroid nodule1 (chief complaint) anxiety1 (chief complaint) GoiterGeneralized Anxiety Disorder 0 Brian Menendez [address], [place], [place], [address] , [place]. tel:[phone] Referring Provider: Gissel Banks [address], [place], [place], [id number]. tel:[phone] OFFICE/OUTPA TIENT VISIT, [facility], [address], [place], [place], [address], [place] tel:[phone] [facility] anxiety1 (chief complaint) iron1 (chief complaint) thyroid1 (chief complaint) Disorder of iron metabolism, unspecifiedGoiterGe neralized Anxiety Disorder Lonnie-0 0 Brian Bustamante. [address], [place], [place], [address] , [place]. [phone] Referring Provider: Gissel Banks [address], [place], [place], [address]. tel:[phone] OFFICE/OUTPA TIENT VISIT, [facility], [address], [place], [place], [address], [place] tel:[phone] [facility] ankle pain1 (chief complaint) fatigue1 (chief complaint) thyroid1 (chief complaint) anemia1 (chief complaint) Pain in right ankleFatigueAnemiaG oiter 0 Brian Bustamante. [address], [place], [place], [address] , [place]. tel:[phone] Referring Provider: Gissel Banks [address], [place], [place], [address]. tel:[phone] OFFICE/OUTPA TIENT VISIT, [facility], [address], [place], [place], [address], [place] tel:[phone] [facility] rash1 (chief complaint) Allergic contact dermatitis due to plants, except food Aug- 0 Brian Bustamante. [address], [place], [place], [address] , [place]. [phone] Referring Provider: Gissel Banks [address], [place], [place], [address]. tel:[phone] OFFICE/OUTPA TIENT VISIT, [facility], [address], [place], [place], [address], tel:[phone] [facility] Medicine thyroid1 (chief complaint) ferritin1 (chief complaint) IgA (chief complaint) fatigue1 (chief complaint) GoiterDisorder of iron metabolism, unspecifiedVitamin D deficiency, unspecifiedRaised level of immunoglobulinAnemi aH. pylori as the cause of diseases classified elsewhereFatigue 0 Brian Bustamante. [address] [facility] [place], [address] , . tel:[phone] Referring Provider: Gissel Banks [place], [id number]. tel:[phone] PREV VISIT, NEW, AGE 18-39 [facility], [address] [place] [address] [address] [place], [place], [address], tel:[phone] [facility] PHysical (chief complaint) Encntr for general adult medical exam w/o abnormal findings 0 Brian Bustamante. [address], [facility] [address], [place], [place], [address] , [place]. tel:[phone] Referring Provider: Robby Torres [address] [place] [address], [id number]. tel:[phone] Family History Family Member Type Diagnosis Age [...] Referral Referred To: Jean Carlos BolañosJoe silva [address] [facility]
[address] [place], [place] [address] Ordered: Referrals: Allopathic & Osteopathic Physicians : [...] any dysphagia ankle pain1 Pt was at [place] and she stepped on gravel [...] or swelling . 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
[2024-11-05] MEDS: BETAMETHASONE SOD PHOS/ACETATE 30 MG/5 ML VIAL 12 MG IM (06:39)
== END 2024-11-05 06:21 | disposition home or self-care (01) ==
LOC: ANHOBOP 06:25
PROVIDERS: Visit Provider Advanced Practice Midwife
DX: O62.4 Hypertonic, incoordinate, and prolonged uterine contractions (principal); Z3A.00 Weeks of gestation of pregnancy not specified
CPT/HCPCS: 96372; J0702

== ENCOUNTER 2024-11-09 00:20 | Outpatient (CLI) | payer OTHER, SELFPAY ==
[2024-11-09] VITALS (8 sets, daily range): BP systolic 140–152; BP diastolic 79–92; PULSE 78–89; TEMP 36.8
--- OUTSIDE RECORDS SUMMARY | 2024-11-09 00:38 | XMS_ITS | Encounter Summary ---
Author Organization [facility] Address [address] [place] [address] Phone Care Team Providers Care Practice Lead Name Role Phone Manda Singh MD Unavailable [phone] Scooter White DO Primary Care Provider Malik Cates MD Unavailable Ulices Marino MD Unavailable Yon Gutierrez MD Primary Care Provider Georgina Fontenot APRN, OPERATOR SPECIALIST COMMUNICATIONS Unavailable [phone] Encounter Details Date Type Department Care Team (Late st Contact Info) Description 07/26/2021 Lab Requisition [facility] [address] [place] [address] Edita Garza, TRUNG, DESK REPORTER [address] [place] [address] Encounter for pre-employment examination Social [...] >=1.1 AI 07/26/2021 10:00 PM CDT [facility] Blood No Phlebotomy Charged / Unknown 07/26/2021 9:00 AM CDT 07/26/2021 2:15 PM CDT Narrative [facility] - 07/26/2021 10:00 PM CDT <= 0.8 Negative. No detectable VZV IgG antibody. 0.9 - 1.0 Equivocal >=1.1 Positive Antibody testing was performed by multiplex flow immunoassay on the BioPlex platform. Edita L Behrends MUD CAR WORKER, DESK REPORTER IMMUNOLOGY ORDERABL ES Final Result Performing Organization Address [facility] de Phone Number [facility] [address] [place] [address], [place] * (ABNORMAL) RUBEOLA (MEASLES) IGG (07/26/2021 9:00 AM CDT) MEASLES AB IGG 0.7(L) >=1.1 AI 07/26/2021 10:00 PM CDT [facility] Blood No Phlebotomy Charged / Unknown 07/26/2021 9:00 AM CDT 07/26/2021 2:15 PM CDT Narrative [facility] - 07/26/2021 10:00 PM CDT <= 0.8 Negative. No detectable Measles IgG antibody. 0.9 - 1.0 Equivocal >=1.1 Positive Antibody testing was performed by multiplex flow immunoassay on the BioPlex platform. Edita L Behrends MUD CAR WORKER, DESK REPORTER IMMUNOLOGY ORDERABL ES Final Result Performing Organization Address [facility] de Phone Number [facility] [address] [place] [address], [place] * RUBELLA IMMUNITY IGG (07/26/2021 9:00 AM CDT) RUBELLA IMMUNITY Immune Immune, Invalid 07/26/2021 10:00 PM CDT [facility] Blood No Phlebotomy Charged / Unknown 07/26/2021 9:00 AM CDT 07/26/2021 2:15 PM CDT Narrative [facility] - 07/26/2021 10:00 PM CDT Antibody testing was performed by multiplex flow immunoassay on the BioPlex platform. us Edita Garza MUD CAR WORKER, DESK REPORTER CHEMISTRY ORDERABLE S Final Result Performing Organization Address [facility] Co de Phone Number [facility] [address] [place] [address], [place] * MUMPS IGG (07/26/2021 9:00 AM CDT) Mumps Ab IgG 1.2 >=1.1 AI 07/26/2021 10:00 PM CDT [facility] Blood No Phlebotomy Charged / Unknown 07/26/2021 9:00 AM CDT 07/26/2021 2:15 PM CDT Narrative [facility] - 07/26/2021 10:00 PM CDT <= 0.8 Negative. No detectable Mumps IgG antibody. 0.9 - 1.0 Equivocal >=1.1 Positive Antibody testing was performed by multiplex flow immunoassay on the BioPlex platform. us Edita Garza MUD CAR WORKER, DESK REPORTER IMMUNOLOGY ORDERABL ES Final Result Performing Organization Address [facility] Co de Phone Number [facility] [address] [place] [address], [place] * QUANTIFERON-TB GOLD PLUS (07/26/2021 9:00 AM CDT) NIL CONTROL 0.04 <8.01 IU/mL 07/28/2021 1:01 PM CDT [facility] TB ANTIGEN 1 0.00 <0.35 IU/mL 07/28/2021 1:01 PM CDT [facility] TB ANTIGEN 2 0.00 <0.35 IU/mL 07/28/2021 1:01 PM CDT [facility] MITOGEN CONTROL 9.64 >0.49 IU/mL 07/29/19 1:01 PM CDT [facility] INTEPRETATION TB NEGATIVE NEGATIVE, NEGATIVE (TB antigen response less than 25% of internal negative control value) 07/28/2021 1:01 PM CDT [facility] Comment:No immune response t o Mycobacterium tuberculosis antigens was noted. M. tuberculosis infection unlikely. Blood No Phlebotomy Charged / Unknown 07/26/2021 9:00 AM CDT 07/26/2021 2:15 PM CDT Narrative [facility] - 07/28/2021 1:01 PM CDT A POSITIVE [...] immunocompromised individuals. https://www.cdc.gov/tb/publications/guidelines/testing.htm us Edita L Behrends MUD CAR WORKER, DESK REPORTER IMMUNOLOGY ORDERABL ES Final Result Performing Organization Address [facility] Co de Phone Number [facility] [address] [place] [address], [place] * HEPATITIS B SURFACE ANTIBODY (HBSAB) (07/26/2021 9:00 AM CDT) HEPATITIS B SURFACE ANTIBODY 8.33 mIU/mL [facility] ARCH [id number] B 07/27/2021 12:02 AM CDT [facility] Comment: Grayzone Range: >=8.00 to <=12.00 The immune status of the individual should be further assessed considering other factors, such as clinical status, follow-up testing, associated risk factors and the use of additional diagnostic information. Blood No Phlebotomy Charged / Unknown 07/26/2021 9:00 AM CDT 07/26/2021 2:15 PM CDT us Edita Garza MUD CAR WORKER, DESK REPORTER CHEMISTRY ORDERABLE S Final Result Performing Organization Address [facility] Co de Phone Number [facility] [address] [place] [address], [place] documented in this encounter Visit Diagnoses Diagnosis Encounter for pre-employment examination Health examination of defined subpopulation documented in this encounter Additional Health Concerns Assessment Noted Time PHQ-9 Depression Total Score: 0 02/11/20 20 12:57 PM CDT documented as of this encounter Care Teams Practice Lead Relationship Specialty Start Date End Date Scooter White DO [address] [place] [address] [place] [address] PCP - General Internal Medicine 03/17/21 06/22/23 Yon Gutierrez MD [address] [place] [address] [address] PCP - General Family Medicine 06/23/23 Manda Singh MD Obstetrics & Gynecology 02/11/20 Malik Cates MD #[address] [address] Consulting Physician Endocrinology 12/13/21 Ulices Marino MD #[address] [address] Consulting Physician Colon and Rectal Surgery 07/06/22 Georgina Fontenot APRN, OPERATOR SPECIALIST COMMUNICATIONS [address] [place] [address] Nurse Practitioner Advanced Practice Nurse 09/25/24 documented as of this encounter
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
--- OUTSIDE RECORDS SUMMARY | 2024-11-09 00:38 | XMS_ITS | Encounter Summary ---
Author Organization [facility] Address [address] [place] [address] Phone Care Team Providers Care Metal Furniture Assembler Name Role Phone Manda Singh MD Unavailable [phone] Robby Torres Primary Care Provider [phone] Scootre White DO Primary Care Provider Malik Cates MD Unavailable Ulices Marino MD Unavailable Yon Gutierrez MD Primary Care Provider Georgina Fontenot APRN, [facility] Unavailable [phone] Encounter Details Date Type Department Care Team (Late st Contact Info) Description 04/09/2020 Telephone [facility] [address] [address] [address] Saud Dalton MD [address] [place] [address] Social History Tobacco Use Types Packs/Day [...] COVID-19? No / Unsure 03/20/2020 6:06 AM AWNING MAKER AND INSTALLER documented as of this encounter Miscellaneous Notes * Telephone Encounter - Mahnaz Alaniz - 04/09/2020 2:50 PM CST Patient no showed her appointment, left voice message to call the office to reschedule. Sent out a no show letter. NG MAKER AND INSTALLER documented in this encounter Plan of Treatment Not on file documented as of this encounter Visit Diagnoses Not on filedocumented in this encounter Additional Health Concerns Assessment Noted Time PHQ-9 Depression Total Score: 0 02/11/20 20 12:57 PM CDT documented as of this encounter Care Teams Metal Furniture Assembler Relationship Specialty Start Date End Date Robby Torres [address] [place] [address] PCP - General Family Medicine 02/11/20 03/16/21 Scooter White DO [address] [place] [address] [place] [address] PCP - General Internal Medicine 03/17/21 06/22/23 Yon Gutierrez MD [address] [place] [address] [address] PCP - General Family Medicine 06/23/23 Manda Singh MD Obstetrics & Gynecology 02/11/20 Malik Cates MD #[address] [address] Consulting Physician Endocrinology 12/13/21 Ulices Marino MD #[address] [address] Consulting Physician Colon and Rectal Surgery 07/06/22 Georgina Fontenot APRN, PLASTER AND STUCCO WORKER [address] [place] [address] Nurse Practitioner Advanced Practice Nurse 09/25/24 documented as of this encounter
--- OUTSIDE RECORDS SUMMARY | 2024-11-09 00:38 | XMS_ITS | Continuity of Care Document ---
Author Organization [facility] Address [address] [place] [address] [address] [place] [address] Phone Care Team Providers Care Captain Assistant Name Role Phone Carol OD OD, Georgina [...] - Active Procedures Procedure Date OFFICE/OUTPATIENT VISIT, [facility] Comp cont lens eval No Charge Visit N/C Glasses Check Advance Directives Directive Yes / No Effective Date File Name No Information Encounters Encounter Description Practice Location Reason(s) For Visit Diagnoses Date Provider Providers Copied on Encounter [facility], [address] [place] [address] [address], [place], [place], [id number], tel:[phone] OPH CONSULT KENTRELL LOPEZ No Information 3 Carol OD Georgina. [address] [facility], [address], [place], [place], [id number], [place]. tel:[phone] Referring Provider: Georgina Medina OD, [address] [facility] [address], [place], [address] . tel:[phone] OFFICE/OUTPA TIENT VISIT, [facility], [address] [place] [address], [id number], tel:[phone] OPH CONSULT KENTRELL LOPEZ blurry vision (chief complaint) dry eye (chief complaint) Krystin's thyroiditisMyo roger, bilateralTear film insufficiency of bilateral lacrimal glandsOther vitreous opacities, bilateralCorne al neovasculariza tion of both eyes 2 Derheimer OD Georgina. [address], [address] [place] [address], [id number], [place]. tel:[phone] Referring Provider: Scooter White, [address], [place], [address]. tel:[phone] [facility], [address] [place] [address], [id number], tel:[phone] Optical Services KENTRELL LOPEZ No Information 6 Derheimer OD Georgina. [address], [address] [place] [address], [id number], [place]. tel:[phone] Referring Provider: Georgina Medina OD, [address], [place], [address] . tel:[phone] [facility], [address] [place] [address], [id number], tel:[phone] OPH CONSULT KENTRELL LOPEZ blurry vision (chief complaint) Myopia, bilateral 6 Derheimer OD Georgina. [address], [address], [place], [place], [id number], [place]. tel:[phone] Referring Provider: Georgina Medina OD, [address], [place], [address] . tel:[phone] [facility], [address] [place] [address], [id number], tel:[phone] OPH CONSULT KENTRELL LOPEZ No Information 1 Beth Cohenl. [address], [address], [place], [place], [id number], [place]. tel:[phone] Family History Family Member Type Diagnosis Age [...]
--- OUTSIDE RECORDS SUMMARY | 2024-11-09 00:38 | XMS_ITS | Clinical Summary ---
Author Organization [facility] Address [address] [facility], [facility] [address] [place] [address] Phone Care Team Providers Care Turret Lathe Tender Name Role Phone Manda Singh MD Unavailable [phone] Malik Cates MD Unavailable Ulices Marino MD Unavailable Yon Gutierrez MD Primary Care Provider Georgina Fontenot LOGISTICS LEAD, CRANK HAND Unavailable [phone] Allergies Active Allergy Reactions Criticality Noted Date [...] Transcribe Orders [facility] [address] [place] [address] Provider, Not On File Low back pain, [...] 97.5 kg (215 lb) 04/19/2023 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 Height 165.1 cm (5' 5) 04/19/2023 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 Body Mass Index 35.78 04/19/2023 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 Plan of Treatment Health Maintenance Due Date [...] this topic Medical Devices Implanted Type Area Soft Boarder Device Identifier Shelf Expiration Date Model / Serial / Lot Tube Ventilation 5mm Carey Triune - [id number] Implanted:Qty: 1 on 11/05/2018 by [facility] Left: Ear [employer] 04/06/2020 510-122 / 510-122 / [id number] Description:Ear tubes came f rom the same package Tube Ventilation 5mm Carey Triune - [id number] Implanted:Qty: 1 on 11/05/2018 by Jordon Deng MD at [facility] IMPL[facility] Right: Ear [employer] 04/06/2020 510-122 / 510-122 / [id number] Description:Ear tubes came f rom the same package Insurance * Guarantor: [facility] Account Type Relation to Patient Date of Phone Billing Address Institutional Other [address] [place] [address] Care Teams Turret Lathe Tender Relationship Specialty Start Date End Date Yon Gutierrez MD [address] [address] PCP - General Family Medicine 06/23/23 Manda Singh MD Obstetrics & Gynecology 02/11/20 Malik Cates MD #[address] [address] Consulting Physician Endocrinology 12/13/21 Ulices Marino MD #[address] [address] Consulting Physician Colon and Rectal Surgery 07/06/22 Georgina Fontenot, LOGISTICS LEAD, CRANK HAND [address] [place] [address] Nurse Practitioner Advanced Practice Nurse 09/25/24
--- OUTSIDE RECORDS SUMMARY | 2024-11-09 00:38 | XMS_ITS | Encounter Summary ---
Author Organization [facility] Address [address] [facility] [place] [address] Phone Care Team Providers Care Middle School Librarian Name Role Phone Manda Singh MD Unavailable [phone] Robby Torres Primary Care Provider [phone] Scooter White DO Primary Care Provider Malik Cates MD Unavailable Ulices Marino MD Unavailable Yon Gutierrez MD Primary Care Provider Georgina Fontenot APRN, [facility] Unavailable [phone] Encounter Details Date Type Department Care Team (Late st Contact Info) Description 03/09/2020 [facility] [address] [place] [address] Walter Blake MD [address] [place] [address] Preop testing (Primary Dx) Social History Tobacco [...] COVID-19? 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 documented as of this encounter Plan of Treatment Not on file documented as of this encounter Visit Diagnoses Diagnosis Preop testing- Primary Preoperative examination, unspecified documented in this encounter Additional Health Concerns Infection Onset Date Last Indicated Resolved Time COVID - 19 03/10/2020 03/10/2020 03/16/2020 11:4 0 AM STITCHING MACHINE OPERATOR Assessment Noted Time PHQ-9 Depression Total Score: 0 02/11/20 20 12:57 PM CDT documented as of this encounter Care Teams Middle School Librarian Relationship Specialty Start Date End Date Robby Torres [address] [facility] [place] [address] PCP - General Family Medicine 02/11/20 03/16/21 Scooter White DO [facility] [place] [address] PCP - General Internal Medicine 03/17/21 06/22/23 Yon Gutierrez MD 2 [facility] , [facility] [address] [place] [address] PCP - General Family Medicine 06/23/23 Manda Singh MD Obstetrics & Gynecology 02/11/20 Malik Cates MD #2 [facility] [address] [place] [address] Consulting Physician Endocrinology 12/13/21 Ulices Marino MD #[address] [address] Consulting Physician Colon and Rectal Surgery 07/06/22 Georgina Fontenot APRN, HUMAN RESOURCES ASSOCIATE [address] [place] [address] Nurse Practitioner Advanced Practice Nurse 09/25/24 documented as of this encounter
--- OUTSIDE RECORDS SUMMARY | 2024-11-09 00:38 | XMS_ITS | Clinical Summary ---
Author Organization [facility] Address [address] [place] [address] Care Team Providers Care Outpatient Interviewing Clerk Name Role Phone Scooter White DO Primary Care Provider [phone] Source Comments [facility],non-owned Affiliates and Associated Physician Practices is amultiple site organization consisting of ambulatory clinics and hospital sitesin [place], [place], [place] and [place]. This disclosure is being madepursuant to the Care Everywhere program and may not contain all information available regarding this patient. Last updated 18.[facility] Allergies Active Allergy Reactions Criticality Noted Date [...] Type Department Care Team Description 10/28/2024 Telephone [facility] [address] [place], [place] [address] Silvina León Appointment 09/24/2024 1:00 PM CDT - 09/24/2024 11:59 PM CDT Hospital Encounter [facility] [address] [place] [id number] Derick Mcclendon MD ENGINEER CHIEF Discharge Disposition: Home or Self Care 08/27/2024 12:58 PM CDT - 08/27/2024 11:59 PM CDT Hospital Encounter [facility] [address] [place] [id number] Christiano Tristan MD Discharge Disposition: Home or [...] on file 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 Gender Identity Not on file Sexual Orientation [...] (HCC) Dichorionic diamniotic twin in second trimester ([facility]) 28 weeks gestation of ([facility]) Supervision of high risk in second trimester ([facility]) Obesity affecting in second trimester, unspecified obesity type ([facility]) Encounter for follow-up ultrasound of anatomy ([facility]) Encounter for ultrasound to assess growth ([facility]) SONOGRAM - COMPLETE Routine 08/27/2024 1 2:52 PM CDT Dichorionic diamniotic twin in second trimester ([facility]) History of pre-eclampsia in prior , currently ([facility]) 24 weeks gestation of ([facility]) Supervision of high risk in second trimester ([facility]) from Last 3 Months Results * SONOGRAM - COMPLETE (09/24/2024 1:09 PM CDT) Only the most recent of2 resultswithin the time period is included. Linked Results Indication ======== DA/DC Twins Incomplete Anatomy Screen x2 History of Preeclampsia, Obesity in , Class II History ====== OB History 4. Para 3 [id number] 1. live 2011. Gest. age 41 w [...] 2 lb 14 oz EFW by Hadlock ([id number]-FL) EFW discordance 4.6 % appropriate Fetus B: Biometry BPD 69.2 mm 27w 6d 42% Hadlock HC 260.6 mm 28w 2d 39% Hadlock AC 252.3 mm 29w 3d 88% Hadlock Femur 51.1 mm 27w 3d 25% Hadlock Humerus 48.6 mm 28w 4d 68% Robinson HC / AC 1.03 Weight Calculation: EFW 1,242 g 69% Hadlock EFW (lb,oz) 2 lb 12 oz EFW by Hadlock ([id number]-FL) EFW discordance 4.6 % appropriate Fetus A: [...] Thorax RVOT view. LVOT view. 3-vessel view. 7-idelnx-cducalm view. Situs. Bicaval view. Ductal arch view. [...] view. RVOT view. LVOT view. 3-vessel view. 2-tizfbr-yhccghp view. Situs. Aortic arch view. Bicaval view. [...] and begin weekly testing Coding ====== Procedures [id number]: US Preg Uterus Follow Up. x2 [employer] Mobile PACS Anatomical Region Laterality Modality Other 09/24/2024 1:09 PM CDT R Bert Garcia MD [facility] ORDERABLES Edited Result - Final from Last 3 Months Insurance HEALTH [employer] CARE Member Subscriber Plan / Payer (Ef fective 2021-Present) Name:Yessica Mo Relation to Subscriber:Spouse Name:SOLO MO Date of :1987 (Home) Address: [address] [place] [address] Payer ID:[id number] (NAIC) Type:PPO Address: [place] [id number] [place] [address] Care Teams Outpatient Interviewing Clerk Relationship Specialty Start Date End Date Scooter White DO PCP - General 03/16/22
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
--- OUTSIDE RECORDS SUMMARY | 2024-11-09 00:38 | XMS_ITS | Encounter Summary ---
Author Organization [facility] Address [address] [place] [address] Care Team Providers Care Marketing Program Manager Name Role Phone Scooter White DO Primary Care Provider Encounter Details Date Type Department Care Team (Late st Contact Info) Description 11/06/2018 Lab Requisition [facility] Care Pathology Lab [address] [place] [address] Cindi Herrera MD [address] [place] [address] Enlarged lymph nodes Social History Tobacco Use Types Packs/Day Years Used Date Smoking Tobacco: Never Smokeless Tobacco: Never Alcohol Use Standard Drinks/Week Comments No 0 (1 standard drink = 0.6 oz pur e alcohol) Comments No Sex and Gender Information Value Date Recorded Sex Assigned at Not on file 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 - See interpretation. 9 5:33 PM [facility] PATHOLOGY LAB at 1733 CDT Flow [...] cytometry specimen is reviewed for quality control microbiology supervisor purposes. In summary, the left cervical lymph node specimen shows no evidence of a non-Hodgkin lymphoma. Correlation with additional clinical information and the concurrent biopsy specimen is required. KR 9 5:33 PM [facility] Flow Cytometry Results Differential Result Comment Flow Cell Count /uL [id number] Total Viability % 86.0 Lymphocytes % 97 Dim CD45 Region % 0 Monocytes % 1 Granulocytes % 1 9 5:33 PM [facility] Reason for test Enlarged lymph nodes 785.6 9 5:33 PM [facility] Client Specimen ID # [id number] 9 5:33 PM [facility] Number of markers 16 were performed. A Flow CD3 A Flow CD10 A Flow CD20 A Flow CD23 A Flow CD2 A Flow CD4 A Flow CD1a A Flow CD5 A Flow CD19 A Flow CD34 A Flow CD45 A Flow CD7 A Flow CD8 A Flow CD30 A Forada+CD19+ A Lambda+CD19+ 9 5:33 PM [facility] Disclaimer Test performed at [facility], [address] [place], [place], [address]. *The established laboratory minimum viability is 70%. [...] - PATHOLOGY/CYTOLOGY ORDERA BLE Final Result [facility] PATHOLOGY LAB [address] [facility] [place] [address], [facility] [phone] documented in this encounter Visit Diagnoses Diagnosis Enlarged lymph nodes Enlargement of lymph nodes documented in this encounter Care Teams Marketing Program Manager Relationship Specialty Start Date End Date Scooter White DO PCP - General 03/16/22 documented as of this encounter
--- OUTSIDE RECORDS SUMMARY | 2024-11-09 00:38 | XMS_ITS | Continuity of Care Document ---
Author Organization [facility] Address [address] [facility] [place] [address] Phone Care Team Providers Care Foot Doctor Name Role Phone Robby Torres MD Unavailable [...] Diagnoses Date Provider Providers Copied on Encounter [facility], [address] [facility] [place], [id number], [place] tel:[phone] [facility] No Information 1 Brian Bustamante. [address], [place], [place], [address] , [place]. tel:[phone] [facility], [address], [place], [place], [address], [place] tel:[phone] [facility] No Information 0 Brian Bustamante. [address], [place], [place], [address] , [place]. tel:[phone] OFFICE/OUTPA TIENT VISIT, [facility], [address], [place], [place], [address], [place] tel:[phone] [facility] anxiety1 (chief complaint) Generalized Anxiety DisorderHypothyroid ism 0 Brian Bustamante. [address], [place], [place], [address] , [place]. tel:[phone] Referring Provider: Robby Torres [address], [place], [place], [id number]. tel:[phone] OFFICE/OUTPA TIENT VISIT, [facility], [address], [place], [place], [address], [place] tel:[phone] [facility] anxiety1 (chief complaint) Generalized Anxiety DisorderGoiter 0 Brian Bustamante. [address], [place], [place], [address] , [place]. tel:[phone] Referring Provider: Robby Torres [address], [place], [place], [address]. tel:[phone] OFFICE/OUTPA TIENT VISIT, [facility], [address], [place], [place], [address], [place] tel:[phone] [facility] thyroid nodule1 (chief complaint) anxiety1 (chief complaint) GoiterGeneralized Anxiety Disorder 0 Brian Menendez [address], [place], [place], [address] , [place]. tel:[phone] Referring Provider: Gissel Banks [address], [place], [place], [address]. tel:[phone] OFFICE/OUTPA TIENT VISIT, [facility], [address], [place], [place], [address], [place] tel:[phone] [facility] anxiety1 (chief complaint) iron1 (chief complaint) thyroid1 (chief complaint) Disorder of iron metabolism, unspecifiedGoiterGe neralized Anxiety Disorder Lonnie-0 0 Brian Bustamante. [address], [place], [place], [address] , [place]. [phone] Referring Provider: Gissel Banks [address], [place], [place], [address]. tel:[phone] OFFICE/OUTPA TIENT VISIT, [facility], [address], [place], [place], [address], [place] tel:[phone] [facility] ankle pain1 (chief complaint) fatigue1 (chief complaint) thyroid1 (chief complaint) anemia1 (chief complaint) Pain in right ankleFatigueAnemiaG oiter 0 Brian Bustamante. [address], [place], [place], [address] , [place]. tel:[phone] Referring Provider: Gissel Banks [address], [place], [place], [address]. tel:[phone] OFFICE/OUTPA TIENT VISIT, [facility], [address], [place], [place], [address], [place] tel:[phone] [facility] rash1 (chief complaint) Allergic contact dermatitis due to plants, except food Aug- 0 Brian Bustamante. [address], [place], [place], [address] , [place]. [phone] Referring Provider: Gissel Banks [address], [place], [place], [address]. tel:[phone] OFFICE/OUTPA TIENT VISIT, [facility], [address], [place], [place], [address], tel:[phone] [facility] Medicine thyroid1 (chief complaint) ferritin1 (chief complaint) IgA (chief complaint) fatigue1 (chief complaint) GoiterDisorder of iron metabolism, unspecifiedVitamin D deficiency, unspecifiedRaised level of immunoglobulinAnemi aH. pylori as the cause of diseases classified elsewhereFatigue 0 Brian Bustamante. [address] [facility] [place], [address] , . tel:[phone] Referring Provider: Gissel Banks [place], [address]. tel:[phone] PREV VISIT, NEW, AGE 18-39 [facility], [address] [place] [address] [place], [place], [address], tel:[phone] [facility] PHysical (chief complaint) Encntr for general adult medical exam w/o abnormal findings 0 Brian Bustaamnte. [address], [facility] [address], [place], [place], [address] , [place]. tel:[phone] Referring Provider: Robby Torres [address] [place] [address], [id number]. tel:[phone] Family History Family Member Type Diagnosis Age At Onset Brother Problem Alive and well Father Problem (finding) Alive and well Mother Problem (finding) Thyroid disorder Payers Payer name Insurance type Covered constitution [...] BIOPSY ordered Referral Referred To: Joe Fontana [address] [facility]
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
--- OUTSIDE RECORDS SUMMARY | 2024-11-09 00:39 | XMS_ITS | Data Portability ---
Author Organization [facility] Address [address] [place] [address] Care Team Providers Care Financial Accounting Manager Name Role Phone [facility] EDUIN HAMMONDS Dewaterer Operator JILLIAN LAO Primary Care Provider [phone] Assessment Encounter Date Assessment Date Assessment LastModified by Organization Details LastModified Time 11/06/2024 11/06/2024 Patient is ___33 weeks . Discussed plan. Not available 11/06/2024 15:50:14 11/06/2024 11/06/2024 Pt her for NST - CHTN/TWINS [email or web address] Not available 11/06/2024 17:21:20 Plan of Treatment Reminders Order Date Submit [...] recorde d. Surgeries None recorde d. Imaging non-str ess test 2024 025 [place], [facility] [address], [place], [address], 11/07/2024 07:45:10 US, obstetr ic, biophys ical profile + non-str ess test 2024 025 [facility], [facility] [address], [place], [address], 11/06/2024 17:48:20 US, obstetr ic, biophys ical profile + non-str ess test 2024 025 [facility] [address], [place], [address], 11/06/2024 17:48:32 US, obstetr ic, biophys ical profile + non-str ess test 2024 025 [email or web address] [place], [place], [address], 10/31/2024 22:54:00 US, obstetr ic, biophys ical profile + non-str ess test 2024 025 [email or web address] [place], [address], [place], [address], 10/31/2024 22:54:00 Medication Orders None recorde d. Patient TargetsNo targets recorded. Patient InstructionsNo instructions recorded. Reason for Referral None Reported. Results Created Date Observation Date Name Description Value Unit Range Abnormal Flag Note LastModifiedBy Organization Detail LastModifiedTime 10/10/19 25 10/09/2024 US, ayo tric, limit ed No observ ation record ed. [facility] [address], [place], [address], 10/09/2024 17:38:41 10/10/1910/09/2024 US, obste tric, follo w-up No observ ation record ed. [facility] [address], [place], [address], 10/09/2024 17:38:53 10/10/1910/09/2024 US, obste tric, follo w-up No observ ation record ed. [email or web address] [address] [facility] [place], [address], 10/14/2024 10:19:44 10/23/1910/22/2024 US, obste tric, follo w-up No observ ation record ed. [email or web address] [place] [address], [place], [address], 10/22/2024 17:16:15 10/23/1910/22/2024 US, obste tric, follo w-up No observ ation record ed. [email or web address] [place] [address], [place], [address], 10/22/2024 17:16:31 10/23/19 25 10/22/2024 US, obste tric, follo w-up No observ ation record ed. LANA [address], [place], [address], 10/29/2024 21:52:03 10/27/19 25 10/23/2024 non-s tress test No observ ation record ed. [email or web address] [place] [address], [place], [address], 10/26/2024 08:57:06 10/29/19 25 10/23/2024 non-s tress test No observ ation record ed. [email or web address] [place] [address], [place], [address], 10/28/2024 11:44:35 10/31/19 25 10/30/2024 US, obste tric, bioph ysica l profi le + non-s tress test No observ ation record ed. [email or web address] [place] [address], [place], [address], 10/30/2024 13:28:58 10/31/19 25 10/30/2024 US, obste tric, bioph ysica l profi le + non-s tress test No observ ation record ed. [email or web address] [place] [address], [place], [address], 10/30/2024 13:29:11 10/31/19 25 10/30/2024 US, obste tric, follo w-up No observ ation record ed. [email or web address] [address], [place], [address], 10/31/2024 18:00:31 11/07/19 25 11/06/2024 US, obste tric, bioph ysica l profi le + non-s tress test No observ ation record ed. [email or web address] [place] [address], [place], [address], 11/06/2024 17:48:20 11/07/19 25 11/06/2024 US, obste tric, bioph ysica l profi le + non-s tress test No observ ation record ed. [email or web address] [place] [address], [place], [address], 11/06/2024 17:48:32 11/07/19 25 11/06/2024 non-s tress test No observ ation record ed. [place] [address], [place], [address], 11/06/2024 17:22:40 11/07/19 25 11/06/2024 US, obste tric, bioph ysica l profi le + non-s tress test No observ ation record ed. [email or web address] [address], [place], [address], 11/06/2024 17:58:10 Result Notes None recorded. Problems Name Problem SNOMED Code Status Onset Date Resolution Date Notes Provider Name and Address Organization Details Recorded Time Pregnanc y 15639463 Completed 202106/09/2022 Kenyetta moreno, [facility] 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 3 15:14:45 Hypothyr oidism 35063242 Completed Eli Bohnenstieh l null, [facility] 3 15:14:45 Antenata l care: history of infertil ity 163569099 Completed Eli Bohnenstieh l null, [facility] 3 15:14:46 Group B Streptoc occus carrier 2646734030 103 Completed bacteriu berta Eli Bohnenstieh l null, [facility] 3 15:14:45 Maternal obesity complica ting pregnanc y, childbir th and the puerperi um, antepart um 8029987081 07 Completed BMI 39- ante testing at 37w Eli alvarado [facility], [facility] 3 15:14:46 Chronic hyperten allison in obstetri c context 9574348 Completed procardi a , baseline labs, ASA Eli alvarado [facility] 3 15:14:46 Placenta circumva llata 2838738 Completed Serial growth u/s Eli alvarado [facility], [facility] 3 15:14:45 Pre-ecla mpsia 603070916 Completed Eli alvarado [facility] 3 15:14:45 Abnormal cervical Papanico laou smear 806008093 Active 2023 3 lgsil HPV high risk 1 ascus HPV high risk Kenyetta Solano [facility], [facility] 4 11:59:57 Herpes simplex 92336194 Active 2024 Kenyetta Solano [facility], [facility] 5 16:40:53 Human papillom a virus infectio n 685930402 Active 2024 Kenyetta Solano [facility], [facility] 5 16:40:59 Endometr iosis (clinica l) 550877995 Active 2024 Kenyetta Solano [facility], [facility] 5 16:41:22 Pregnanc y 99858948 Active 2024 Kenyetta Solano [facility], [facility] 5 16:03:06 Twin pregnanc y 98581222 Active 38 wk delivery antenata l testing @ 32wks per MFM Schedule d rpt 08/27 us ONLY Tabatha moreno, [facility] 5 12:20:16 Antenata l care: history of infertil ity 681798849 Active Peter Bryant CNM [address], [place], [address], [facility] 5 13:48:37 Past pregnanc y history of pre-ecla mpsia 6264640046 59739 Active bASA x2 Tabatha moreno, [facility] 5 17:10:40 Large for gestatio n age fetus 715613113 Active less then 30 sec shoulder dystocia Peter Bryant CNM [address], [place], [address], [facility] 5 13:51:09 Past pregnanc y history of shoulder dystocia 185316925 Active Peter Bryant CNM [address], [place], [address], [facility] 5 13:52:04 Chronic hyperten allison in obstetri c context 8661272 Active Peter Bryant CNM [address], [place], [address], [facility] 5 13:52:55 Palpitat ions 19789776 Active Holter monitor faxed to [facility] Tbaatha moreno, [facility] 5 14:05:23 Palpitat ions 37575601 Active Holter monitor faxed to [facility] Tabatha moreno, [facility] 5 14:05:23 Migraine 47365825 Active amadoru irene, Excedrin tension, edita Flanagan null, [facility] 17:11:50 Migraine 58556622 Active amadoru m, Excedrin tension, gloriaatrip deepti Flanagan null, [facility] 5 17:11:50 Glucose toleranc e test outside referenc e range 618055881 Active 2024 5 checking blood sugars for 2 week instead for doing 3 hour Kenyetta Solano null, [facility] 17:53:21 Glucose toleranc e test outside referenc e range 537232699 Active 2024 5 checking blood sugars for 2 week instead for doing 3 hour Kenyettaelif Solano null, [facility] 5 17:53:21 Gestatio nal diabetes mellitus 95143973 Active 2024 Kenyetta Solano null, [facility] 5 11:47:25 Gestatio nal diabetes mellitus 47470040 Active 2024 Kenyetta Solano null, [facility] 5 11:47:25 Finding of general energy 100543490 Completed 201807/28/2020 Fatigue; Recorded Elsewher e: No Locat ion: Sakshiyumiko mickey [facility] S ource: EHR Donor Support Technician mark: N Practi ce ID: [id number] Emmanuel lable Time: 10:45:00 AM Messi Garcia MD [address], [place], [address], [facility] 1 15:00:00 Acute vaginiti s 61446244 Completed 201807/28/2020 Vaginiti s;Record ed Elsewher e: No Locat ion: Chaya arevalo [facility] S ource: EHR Donor Support Technician mark: N Practi ce ID: [id number] Emmanuel lable Time: 10:45:00 AM Messi Garcia MD [address], [place], [address], [facility] 15:00:04 Removal of intraute rine device Completed 201807/28/2020 Encounte r for removal of IUD;Earl rded Elsewher e: No Locat ion: Chaya arevalo [facility] S ource: EHR Donor Support Technician mark: N Amanda ce ID: 0001 Emmanuel lable Time: 10:45:00 AM Messi Garcia MD [address], [place], [address], [facility] 15:00:08 Problem Notes None recorded. Procedures Surgical History Date Name Laterality Status Provider Name and Address Organization Details Recorded Time 024 Laparoscopy completed Kenyetta [facility] 05/10/2024 16:42:07 024 Date of Last Pap Smear completed [facility] 08/16/2023 12:00:08 024 procedure on ear completed Kenyetta [facility] 08/16/2023 12:01:09 023 Colposcopy completed Peter Bryant CNM [address], [place], [address], [facility] 06/15/2022 16:59:00 023 Colposcopy completed Kenyetta [facility] 06/15/2022 16:38:21 023 [facility] 16:38:49 022 intrauterine artificial insemination completed Kenyetta [facility] 06/26/2021 09:20:58 021 intrauterine artificial insemination completed [facility] 06/17/2021 12:15:01 021 intrauterine artificial insemination completed [facility] 06/17/2021 12:14:55 021 intrauterine artificial insemination completed [facility] 06/17/2021 12:14:45 021 intrauterine artificial insemination completed [facility] 06/17/2021 12:14:39 021 LAPAROSCOPY, DIAGNOSTIC (SURG) completed [facility] 08/19/2020 14:04:[address] [facility] 10/01/2020 16:23:[address] [facility] 01/22/2021 10:59:09 019 procedure on neck completed [facility] 12/25/2019 11:25:51 [address] [facility] 12/25/2019 11:24:[address] [facility] 07/16/2021 17:21:[address] [facility] 12/25/2019 11:24:44 Imaging Results None recorded. Procedure Notes None recorded. Medical Equipment None Reported. Allergies Allergen ID Allergen Name Allergen Category Reaction Reaction Severity Criticality Documentation Date Start Date Code Code System Note Provider Name and Address Organization Details Recorded Time 76868 prednison e medicatio n hives Not available Not available 07/03/2024 8640 RxNorm Peter Bryant CNM [address], [place], [address] , [facility] 5 09:52:22 Medications Name Sig Start [...] Pregnyl 10,000 unit intramusc ular solution Inject 94302 units every day by intramus cular route [...] phen 300 mg-codein e 30 mg tablet 11/06 completed Not Available Not Available Not Available [...] jose antonio Cevallos e: Yes [facility] By: [email or web address] z Encoun ter [...] Plus 1.1 % dental paste USE DIRECTED 11/06 completed Not Available Not Available Not Available OneTouch Verio Flex Meter USE TO CHECK BLOOD SUGAR FASTING IN THE MORNING AND 1 HOUR AFTER EACH MEAL FOUR TIMES DAILY active Not Available Not Available No t Available Novarel 5,000 unit intramusc ular solution Inject 2 units by intramus cular route. 06/26 completed PATIENT GIVEN (2) NOVAREL VAIL INJECTIO N INTO RIGHT HIP LOT [id number] EXP 12/2021 Not Available Not Available Not [...] Body mass index (BMI) Body height Systolic And Diastolic Provider Name and Address Organization Details Last Updated DateTime 10/30/2024 169413.98 g 41.5 kg/m2 161.29 cm 115/84 mm[Hg] Eula Barnes [facility] 10/30/2024 14:01:03 Date Recorded Body weight Systolic And Diastolic Provider Name and Address Organization Details Last Updated DateTime 11/06/2024 663570.72564 g 133/87 mm[Hg] Sun Babcock [facility] 11/06/2024 15:35:27 Social History Question Answer Notes LastModified by Organizat ion Details LastModified Time Tobacco Smoking Status Never Smoker [facility] 06/15/2022 15:31:26 Do You Have An Advance Directive? No Information n ot available 07/28/2020 If You Are , What Was Your Level Of Alcohol Consumption Prior To ? None [email or web address] Information not available 06/15/2022 Are You Blind [...] Type Of Diet Are You Following? REGULAR [email or web address] Information n ot available 08/19/2020 What Is The Highest Grade Or Level Of School You Have Completed Or The Highest Degree You Have Received? [id number] Information not available 07/28/2020 Are There Any Guns Present In Your Home? No Information not available 07/28/2020 What Was The Date Of Your Most Recent Tobacco Screening? 10/23/2024 [email or web address] Information not available 10/23/2024 Have You Ever Been Counseled For Unhealthy Alcohol Use? No [email or web address] Information not available 06/15/2022 Do You Use Protection During Sex? No Information not available 07/28/2020 Do You Use Your Seat Belt Or Car Seat Routinely? Yes Information not available 07/28/2020 Do You Have Smoke And Carbon Monoxide Detectors In Your Home? Yes Information not available 07/28/2020 How Much Tobacco Do You Smoke? No [email or web address] Information not available 12/25/2019 Do You Use Sunscreen Routinely? Yes Information not available 07/28/2020 Have You Used IV Drugs? No Information not available 07/28/2020 Do You Have Difficulty Walking Or Climbing Stairs? No [email or web address] Information not available 06/15/2022 Sex: Unknown Functional Status Question Answer Note LastModified by Organizat ion Details LastModified Time Do you use any illicit or recreational drugs? No Information not available 07/28/2020 Do you or have you ever used any other forms of tobacco or nicotine? No [email or web address] Information not available 06/15/2022 What is your level of alcohol consumption? Occasional [email or web address] Information not available 12/25/2019 Do you or have you ever used smokeless tobacco? Never used smokeless tobacco [email or web address] Information not available 06/15/2022 Are you able to walk? YESWOREST [email or web address] Information not available 08/19/2020 Are you able to care for yourself? 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 No Information not available 06/15/2022 Do you or have you ever used e-cigarettes or vape? Never used electronic cigarettes [email or web address] Information not available 06/15/2022 What is your exercise level? Occasional [email or web address] Information not available 12/25/2019 Mental Status Question Answer Note LastModified by Organization D etails LastModified Time Do you feel stressed (tense, restless, nervous, or anxious, or unable to sleep at night)? [id number] [email or web address] Information not available 08/19/2020 Family History Relationship Description Onset Age of this Age Resolved Age Notes LastModified by Organization Details LastModified Time Maternal Grandmother Disorder of thyroid gland [email or web address] Not available 01/26 16:14:56 Mother Female infertility [email or web address] Not available 08/2024 13:51:15 Mother Disorder of thyroid gland [email or web address] Not available 01/26 16:14:56 Father Malignant tumor of pancreas [email or web address] Not available 2024 13:51:15 Brother Malignant neoplasm of prostate Not available 2024 13:51:15 Paternal Grandmother Malignant tumor of breast [email or web address] Not available 01/26 16:14:56 Paternal Grandmother Malignant neoplasm of lung [email or web address] Not available 01/26 16:14:56 Medical History Condition Response Other Y Blood Transfusion N Dermatologic Disorders N Gestational Diabetes Y Anxiety Disorder Y Autoimmune disease N Arthritis [...] SNOMED-CT Code Diagnosis ICD10 Code Diagnosis Note [id number] [facility] [address],[facility] [place] [address] 12/25/2019 10:57:08 12/25/2019 12:38:39 Breast infection 241182292 N61.0 Trying to conceive 67907 9001 Z31.9 [id number] Messi Garcia MD [place] [address] [address] 06/30/2020 12:07:39 06/30/2020 12:55:49 Pain in pelvis 72186825 R10.2 [id number] Messi Garcia MD [place] [address] [address] 07/02/2020 12:31:33 07/02/2020 16:54:32 Pain in pelvis 67970809 R10.2 This patient is a 25-year-ol d [...] informed consent process. To check fallopian tubes. [id number] MD Rhina Zheng [address] [address] 07/23/2020 10:07:53 07/23/2020 10:09:56 [id number] MD Rhina Zheng [address] [address] 07/28/2020 13:53:59 07/28/2020 15:27:02 Chest pain 48020173 R07.9 this patient is 25-year-ol d female [...] this patient s visit, including available hand money market dealer upon arrive, temperatur e check and being asked a series of screening questions. All staff wore face coverings during this encounter, as well as provided additional cleaning and sanitizing of all surfaces, including countertop s, pens, chairs, door handles, light switches, etc, prior to and following the patient s visit. [id number] Messi Garcia MD [place] [address] [address] 08/04/2020 14:07:07 08/04/2020 14:50:37 Abnormal uterine bleeding 7149203742 9100 N93.9 this patient is a 25-year-ol [...] ovulation [place]. [id number] [facility] [address] [address] 08/19/2020 13:46:09 08/19/2020 15:50:34 Trying to conceive 902797728 Z31.9 [id number] Messi Garcia MD [place] [address] [address] 09/02/2020 11:05:51 09/02/2020 12:44:09 Female infertility 6065527 N97.9 [id number] Peter Bryant [facility] [address] [address] 09/04/2020 08:09:36 09/04/2020 09:29:50 Artificial insemination 49906153 Z31.83 [id number] Peter Bryant [facility] [address] [address] 09/03/2020 18:20:49 09/03/2020 22:54:04 Trying to conceive 552113445 Z31.9 60150 Messi Garcia MD [place] [address],[place] [address] 09/09/2020 17:51:09 09/09/2020 18:07:37 Pain in pelvis 57613457 R10.2 This patient is a 25-year-ol d [...] informed consent process. To check fallopian tubes. [id number] Messi Garcia MD [place] [address],[facility] [place] [address] 09/22/2020 16:45:48 09/22/2020 17:17:04 Pain in pelvis 82482201 R10.2 This patient is a 25-year-ol d [...] informed consent process. To check fallopian tubes. [id number] Messi Garcia MD [place] [address],[place] [address] 10/01/2020 14:59:50 10/01/2020 15:16:34 Female infertility 6606544 N97.9 10575 Peter Bryant CNM [place] [address],[place] [address] 10/01/2020 16:21:54 10/01/2020 16:27:38 Trying to conceive 529667048 Z31.9 [id number] [facility] [address] [address] 10/02/2020 08:19:49 10/02/2020 09:46:38 Artificial insemination 94969646 Z31.83 [id number] Messi Garcia MD [place] [address],[place] [address] 10/14/2020 15:52:51 10/14/2020 16:51:20 Pain in pelvis 03777542 R10.2 This patient is a 25-year-ol d [...] informed consent process. To check fallopian tubes. [id number] Peter Bryant CNM [place] [address],[facility] [place] [address] 10/21/2020 17:06:20 10/21/2020 17:33:05 Hypothyroidism 87941648 E03.9 check labs, will adjust meds if needed [id number] Messi Garcia MD [place] [address] [address] 11/30/2020 13:48:01 11/30/2020 13:52:51 Pain in pelvis 25027432 R10.2 This patient is a 25-year-ol d [...] informed consent process. To check fallopian tubes. [id number] Messi Garcia MD [place] [address],[facility] [place] [address] 12/01/2020 14:00:56 12/01/2020 15:31:30 Pain in pelvis 07238610 R10.2 this patient is a 25-year-ol d [...] face-to-fa ce discussing this very complex topic. [id number] Peter Bryant CNM [place] [address],[place] [address] 01/22/2021 09:15:38 01/22/2021 10:35:42 Female infertility 8970304 N97.9 Gynecologi c examination 28025879 Z01.419 [id number] Messi Garcia MD [place] [address],[place] [address] 02/09/2021 09:19:46 02/09/2021 10:04:48 Female infertility 6052878 N97.9 [id number] Peter Bryant [place] [address] [address] 02/09/2021 14:29:50 02/09/2021 16:50:58 Trying to conceive 677371939 Z31.9 57525 [facility] [address] [address] 02/10/2021 09:41:42 02/10/2021 10:12:15 Female infertility 0165922 N97.9 Artificial insemination 69652884 Z31.83 [id number] Messi Garcia MD [place] [address],[place] [address] 04/28/2021 14:43:43 04/28/2021 15:19:59 Female infertility 4120550 N97.9 [id number] Peter Bryant CNM [place] [address],[place] [address] 04/28/2021 18:59:10 04/29/2021 09:31:07 Trying to conceive 673057832 Z31.9 [id number] Peter ArevaloDwight Manny, [facility] [address],[place] [address] 04/29/2021 09:31:15 04/29/2021 10:19:12 Artificial insemination 81437093 Z31.83 [id number] Nalini Salomon , [facility] [address],[place] [address] 05/25/2021 11:53:11 05/25/2021 16:54:31 Reduced libido 4610775 R68.82 Today we discussed trial of Wellbutrin [...] this patient s visit, including available hand money market dealer upon arrive, temperatur e check and being asked a series of screening questions. All staff wore face coverings during this encounter, as well as provided additional cleaning and sanitizing of all surfaces, including countertop s, pens, chairs, door handles, light switches, etc, prior to and following the patient s visit. [id number] Messi Garcia MD [place] [address],[place] [address] 06/22/2021 14:38:59 06/23/2021 09:16:44 Body mass index 30+ - obesity 033895521 Z68.37 This patient is a 26-year-ol d [...] on the dietitian schedule. Gynecologi c examination 81317150 Z01.419 Abnormal u terine bleeding 8172832064 9100 N93.9 [id number] Messi Garcia MD [place] [address],[place] [address] 06/25/2021 09:04:11 06/25/2021 09:23:27 Female infertility 0467587 N97.9 [id number] [facility] [address],[place] [address] 1 06/25/2021 18:38:25 06/26/2021 09:09:27 Trying to conceive 942589170 Z31.9 [id number] [facility] [address],[place] [address] 1 06/26/2021 09:13:57 07/01/2021 15:54:18 Artificial insemination 75630621 Z31.83 [id number] MD Rhina Zheng [address],[place] [address] 1 07/27/2021 17:11:55 07/27/2021 18:06:16 Uncertain viability of 503217575 O36.80X0 Z3A.01 [id number] MD Rhina Zheng [address],[place] [address] 1 08/05/2021 09:17:05 08/05/2021 10:16:25 Abdominal pain in early 931519202 Z33.1 Z3A.01 [id number] Messi Garcia MD [facility] [address],[place] [address] 1 08/18/2021 10:17:54 08/18/2021 11:20:00 [id number] Peter Bryant [facility] [address],[place] [address] 1 08/18/2021 10:18:19 08/19/2021 12:30:57 Amenorrhea 18922958 Z31.89 Z31.83 [id number] Pretty Cotton MD [facility] [address],[place] [address] 1 09/10/2021 14:50:18 09/10/2021 15:34:33 screening 740805938 Z36.82 [id number] MD Rhina Sanchez [address],[place] [address] 1 09/10/2021 14:50:57 09/13/2021 15:22:01 Routine care 247169553 Z34.91 care: history of infertility 809285222 O09.[address] reptococcus carrier 6451048148 103 Z22.330 Hypothyroidism 37078212 E03.9 Maternal o besity complicating , childbirth and the puerperium, antepartum 3409856417 07 O99.211 [id number] MD Rhina Sanchez [address],[place] [address] 1 09/27/2021 17:43:48 09/28/2021 10:23:00 Chronic hypertension complicating AND/OR reason for care during 27986003 O16.9 [id number] MD Rhina Sanchez [address],[place] [address] 1 10/08/2021 14:49:27 10/08/2021 16:16:40 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 8332882 O16.9 care: history of infertility 377627070 O09.01 Hypothyroidism 12642187 E03.9 [id number] Messi Garcia MD [facility] [address],[place] [address] 1 11/03/2021 16:29:49 11/03/2021 18:37:35 screening 662530891 Z36.3 Z3A.20 [id number] Peter Bryant [facility] [address],[place] [address] 1 11/03/2021 16:30:15 11/03/2021 18:37:10 Routine care 101689429 Z34.91 Anxiety 71871102 F41.9 [id number] Messi Garcia MD [facility] [address],[place] [address] 1 12/03/2021 15:10:07 12/03/2021 16:20:49 Hypothyroidism 60283870 E03.9 [id number] Messi Garcia MD [facility] [address],[place] [address] 1 12/03/2021 15:10:54 12/03/2021 17:08:45 Placenta circumvallata 3085191 O43.112 Z36.2 Z3A.24 [id number] Messi Garcia MD [facility] [address],[place] [address] 1 12/29/2021 15:21:10 12/29/2021 16:01:38 Placenta circumvallata 0567658 O43.113 O10.013 O99.213 Z3A.28 [id number] Peter Bryant [facility] [address],[place] [address] 12/29/2021 15:22:44 12/29/2021 17:01:50 Routine care 347736073 Z34.91 - induced hypertension 66538377 O13.9 [id number] Messi Garcia MD [facility] [address],[place] [address] 1 01/13/2022 13:47:29 01/13/2022 14:39:17 Medical examination for suspected condition 712553064 Z03.79 [id number] Messi Garcia MD [facility] [address],[place] [address] 1 01/13/2022 13:47:50 01/13/2022 15:53:18 Routine care 261279472 Z34.83 [id number] Pretty Cotton MD [facility] [address],[place] [address] 1 01/17/2022 16:24:29 01/17/2022 18:16:59 Threatened premature labor - not delivered 670766588 O47.9 [id number] Pretty Cotton MD [facility] [address],[place] [address] 1 01/17/2022 16:35:15 01/19/2022 15:28:55 Threatened premature labor - not delivered 259261133 O47.9 [id number] Messi Garcia MD [facility] [address],[place] [address] 1 01/26/2022 14:52:57 01/26/2022 15:27:45 Chronic hypertension complicating AND/OR reason for care during 36795295 O16.9 [id number] Messi Garcia MD [facility] [address],[place] [address] 1 01/26/2022 14:54:57 01/26/2022 16:22:26 Placenta circumvallata 9641641 O43.113 Z3A.32 O10.013 [id number] [facility] [address],[place] [address] 1 01/26/2022 14:55:32 01/26/2022 16:39:21 Routine care 110361759 Z34.91 [id number] Messi Garcia MD [facility] [address],[place] [address] 1 02/02/2022 16:59:59 02/02/2022 17:58:36 Maternal obesity complicating , childbirth and the puerperium, antepartum 8810274261 07 O99.213 [id number] Messi Garcia MD [facility] [address],[place] [address] 1 02/02/2022 17:00:19 02/02/2022 18:17:03 Chronic hypertension complicating AND/OR reason for care during 80728047 O10.013 Z3A.33 [id number] Peter Bryant [facility] [address],[place] [address] 1 02/02/2022 17:00:45 02/02/2022 18:50:24 Routine care 537994249 Z34.91 [id number] Messi Garcia MD [facility] [address],[place] [address] 1 02/09/2022 16:53:15 02/09/2022 17:49:24 Maternal obesity complicating , childbirth and the puerperium, antepartum 6765248899 07 O99.213 [id number] Messi Garcia MD [facility] [address],[place] [address] 1 02/09/2022 16:53:36 02/09/2022 18:15:36 Chronic hypertension complicating AND/OR reason for care during 21333328 O10.013 O99.213 Z3A.34 [id number] Peter Bryant [facility] [address],[place] [address] 1 02/09/2022 16:54:04 02/09/2022 18:25:27 Routine care 836464941 Z34.91 [id number] Messi Garcia MD [facility] [address],[place] [address] 1 02/16/2022 17:00:10 02/16/2022 17:56:48 Chronic hypertension complicating AND/OR reason for care during 78061451 O10.013 O99.213 Z3A.34 [id number] Messi Garcia MD [facility] [address],[place] [address] 1 02/16/2022 17:00:39 02/16/2022 18:07:43 Chronic hypertension complicating AND/OR reason for care during 15623386 O10.013 Z3A.35 O99.213 [id number] Peter Bryant [facility] [address],[place] [address] 1 02/16/2022 17:01:03 02/16/2022 18:20:17 Routine care 673599230 Z34.91 [id number] Messi Garcia MD [facility] [address],[place] [address] 1 02/18/2022 15:23:24 02/18/2022 15:53:12 Reduced movement 605229668 O36.8199 [id number] Peter Bryant [facility] [address],[place] [address] 1 02/23/2022 16:45:10 02/23/2022 18:18:35 Routine care 076890357 Z34.91 Large for gestation age fetus 789780345 O36.63X0 [id number] Messi Garcia MD [facility] [address],[place] [address] 1 02/23/2022 16:42:55 02/23/2022 17:12:22 Chronic hypertension complicating AND/OR reason for care during 45790776 O10.013 Z3A.35 O99.213 [id number] Messi Garcia MD [facility] [address],[place] [address] 1 02/23/2022 16:43:28 02/23/2022 17:56:35 Chronic hypertension complicating AND/OR reason for care during 11233324 O10.013 O99.213 Z3A.36 [id number] Pretty Cotton MD [facility] [address],[place] [address] 1 03/16/2022 14:15:55 03/17/2022 16:13:50 Pain in pelvis 32718929 R10.2 [id number] Messi Garcia MD [facility] [address] [address] 1 03/17/2022 13:34:56 03/17/2022 14:02:57 Pain in pelvis 34551596 R10.2 this patient is a 25-year-ol d [...] face-to-fa ce discussing this very complex topic. [id number] Messi Garcia MD [facility] [address] [address] 03/17/2022 13:35:31 03/18/2022 13:49:15 Pain in pelvis 19987016 R10.2 patient is a 27-year-ol d female [...] We spent over 20 minutes face-to-fa ce. [id number] Peter Bryant CNM [facility] [address] [address] 04/08/2022 10:24:45 04/08/2022 11:04:13 care 192382901 Z39.2 [id number] Peter Bryant [facility] [address],[facility] [place] [address] 1 05/27/2022 10:52:23 05/27/2022 11:29:50 Screening procedure 00867509 Z13.9 Gynecologi c examination 71185345 Z01.419 [id number] Peter Bryant [facility] [address],[facility] [place] [address] 1 06/15/2022 15:17:03 06/15/2022 17:00:46 Screening procedure 57794266 Z13.9 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 restart lexapro, to ed if any suicidal thoughts, reviewed se risks and benefits f/u 6 week med check if unavailabl e can do by phone Low grade squamous intraepithelial lesion on cervical Papanicolaou smear 0234597547 9105 R87.612 f/u pending pathology [id number] Peter Bryant [facility] [address],[place] [address] 1 08/16/2023 11:38:58 08/16/2023 13:55:15 Pain in pelvis 35554004 R10.2 also start pelvic floor pT Gynecologi c examination 30131867 Z01.419 [id number] Messi Garcia MD [facility] [address],[place] [address] 1 08/22/2023 11:28:17 08/22/2023 12:06:29 Pain in pelvis 58652750 R10.2 patient is a 27-year-ol d female [...] We spent over 20 minutes face-to-fa ce. [id number] Messi Garcia MD [facility] [address],[place] [address] 1 04/23/2024 09:16:05 04/23/2024 10:09:58 screening 870644744 Z36.87 O30.049 Z3A.01 [id number] Messi Garcia MD [facility] [address],[place] [address] 1 05/10/2024 15:16:46 05/10/2024 16:01:31 [id number] [facility] [address],[place] [address] 1 05/10/2024 15:17:03 05/10/2024 16:51:44 Amenorrhea 13931000 Z31.89 Z31.83 Dichorioni c diamniotic twin 632346901 O30.049 reviewed US plan us at 12 weeksnipt at 10 weeks with labsawait pap until pp visitrevie wed precaution s and educationh x preeclamps ia without severe features last [id number] Messi Garcia MD [facility] [address],[place] [address] 1 05/21/2024 11:09:17 05/21/2024 12:05:12 Threatened miscarriage 32479101 O20.0 O30.041 Z3A.09 [id number] Messi Garcia MD [facility] [address],[place] [address] 1 05/23/2024 17:26:08 05/24/2024 10:31:39 Threatened miscarriage 75431828 O20.0 O30.041 Z3A.09 [id number] Messi Garcia MD [facility] [address],[place] [address] 1 05/23/2024 18:31:17 05/24/2024 10:33:13 Pain in pelvis 22281876 R10.2 this patient is a 29-year-ol d [...] is to contact us if pain worsens. [id number] Messi Garcia MD [facility] [address],[place] [address] 1 05/29/2024 10:21:34 05/29/2024 11:12:31 condition affecting obstetrical care of mother 885647984 O36.8910 Z3A.10 [id number] Messi Garcia MD [facility] [address],[place] [address] 1 06/03/2024 16:41:37 06/04/2024 14:32:45 screening 043955745 Z36.82 Z3A.11 [id number] [facility] [address],[place] [address] 1 06/05/2024 14:45:02 06/06/2024 16:44:18 Nausea and vomiting 93193640 R11.2 Migraine 32283559 G43.90 9 Routine an tenatal care 387622162 Z34.91 Twin 09435590 O30.009 [id number] Messi Garcia MD [facility] [address],[place] [address] 1 06/12/2024 17:23:11 06/12/2024 18:08:31 Medical examination for suspected condition 912312278 Z03.72 Z3A.12 [id number] Messi Garcia MD [facility] [address],[place] [address] 1 07/01/2024 16:17:41 07/01/2024 17:36:13 Dichorionic diamniotic twin 431553461 O30.042 Z3A.15 [id number] Peter Bryant CNM [facility] [address],[place] [address] 1 07/03/2024 09:17:02 07/03/2024 09:55:31 Gestation period, 15 weeks 4761631 Z3A.15 [id number] ALEC WILKINSON MD [facility] [address],[place] [address] 1 07/08/2024 10:41:29 07/08/2024 11:38:56 Pruritic rash 26278789 L28.2 Dichorioni c diamniotic twin 375158789 O30.049 Chronic hy pertension complicating AND/OR reason for care during 67222979 O16.9 Gestation period, 16 weeks 49676267 Z3A.16 [id number] Messi Garcia MD [facility] [address],[place] [address] 1 07/12/2024 10:38:28 07/12/2024 11:50:01 [id number] Peter Bryant CNM [facility] [address],[place] [address] 1 07/31/2024 16:35:21 08/01/2024 09:45:58 Gestation period, 19 weeks 38066485 Z3A.19 Dichorioni c diamniotic twin 360085126 O30.049 Gastroesop hageal reflux disease 073590276 K21.9 [id number] Peter Bryant CNM [facility] [address],[place] [address] 1 08/09/2024 12:12:22 08/09/2024 14:11:25 Pain in pelvis 98810762 R10.2 start physical therapy [id number] Messi Garcia MD [facility] [address],[place] [address] 1 08/22/2024 12:06:07 08/22/2024 13:36:01 Dichorionic diamniotic twin 686267290 O30.042 O36.8120 Z3A.23 [id number] Peter Bryant CNM [facility] [address],[place] [address] 1 08/28/2024 14:16:16 08/30/2024 10:02:02 [id number] Peter Bryant CNM [facility] [address],[place] [address] 1 08/29/2024 09:57:22 08/30/2024 10:26:31 Gestation period, 24 weeks 867851813 Z3A.24 [id number] Messi Garcia MD [facility] [address],[place] [address] 1 09/18/2024 11:30:12 09/18/2024 12:33:22 Dichorionic diamniotic twin 096664122 O30.042 O99.891 Z3A.26 [id number] Peter Bryant [facility] [address],[place] [address] 1 09/27/2024 14:05:42 09/27/2024 14:47:06 Gestation period, 28 weeks 27747832 Z3A.28 [id number] Messi Garcia MD [facility] [address],[place] [address] 1 10/09/2024 13:51:09 10/09/2024 15:10:27 Dichorionic diamniotic twin 037302798 O30.043 O32.1XX2 Z36.2 Z3A.29 [id number] Peter Bryant [facility] [address],[place] [address] 1 10/09/2024 13:51:24 10/09/2024 16:46:13 Gestation period, 29 weeks 76687036 Z3A.29 [id number] Messi Garcia MD [facility] [address],[place] [address] 1 10/22/2024 11:49:29 10/22/2024 13:06:50 Dichorionic diamniotic twin 802683038 O30.043 O24.410 O13.3 Z3A.31 [id number] Peter Bryant [facility] [address],[place] [address] 1 10/23/2024 14:57:19 10/27/2024 19:34:15 Twin 28290548 O30.009 [id number] Peter Bryant [facility] [address],[place] [address] 1 10/23/2024 14:57:44 10/23/2024 16:42:04 Gestation period, 31 weeks 45455471 Z3A.31 [id number] Messi Garcia MD [facility] [address],[place] [address] 1 10/30/2024 11:49:15 10/30/2024 12:53:32 Dichorionic diamniotic twin 038118757 O30.043 O24.410 O16.3 Z3A.32 [id number] Peter Bryant [facility] [address],[place] [address] 1 10/30/2024 11:49:41 10/30/2024 13:44:54 Gestation period, 32 weeks 9413240 Z3A.32 [id number] Messi Garcia MD [facility] [address],[place] [address] 1 11/06/2024 14:02:15 11/06/2024 15:08:32 Dichorionic diamniotic twin 481906547 O30.043 O24.414 O24.410 [id number] ALEC WILKINSON MD [facility] [address],[place] [address] 1 11/06/2024 14:02:26 11/06/2024 17:33:51 Chronic hypertension complicating AND/OR reason for care during 70848133 O10.919 [id number] Peter Bryant [facility] [address],[place] [address] 1 11/06/2024 14:02:37 11/06/2024 16:26:16 Gestation period, 33 weeks 99596836 Z3A.33 Dichorioni c diamniotic twin 684993896 O30.043 Health Concerns Section Related Observation LastModified by Organization Detai ls LastModified Time None Recorded Concern Status LastModified by Organization Details LastModified Time None Recorded Advance Directives Directive N: Payers Insurance Date Sequence Insurance Name Policy Number Policy Steele Covered Member ID Steele Member ID Guarantor Name 05/10/2024 2 [facility] Chjc Xbb [id number] Yessica Mast Corzine 05/18/2021 1 [facility] [id number] Luis Antonio Rowe Corzine [id number] Yessica Mast Corzine 06/15/2022 *SELF PAY* Me kartik Mast Corzine 08/31/2020 2 [facility] Luis Antonio Corzine [id number] Yessica Irene Corzine 08/31/2020 3 [facility] Jospeh Corzine [id number] Yessica Irene Corzine 09/04/2020 2 [facility] Luis Antonio Corzine [id number] Yessica Irene Corzine 09/23/2020 2 [facility] Jospeph Corzine [id number] Yessica Irene Corzine 11/05/2024 1 [facility] [id number] Luis Antonio A Corzine [id number] Yessica Irene Corzine 05/10/2024 3 [facility] [id number] Vxbn FB BC [id number] Yessica Mast Corzine OBGyn Episode Ob Episode Information Episode Created Date Number of Fetuses Patient Bloodtype Patient rh Status Prepregnancy Weight lbs Domestic Partner Domestic Partner Phone Father Name Order Entry Administrator Status 12/25/19 1 CLOSED Fetus Data First Name Last [...] Domestic Partner Phone Father Name Order Entry Administrator Status 12/25/19 20 1 CLOSED Fetus Data [...] Domestic Partner Phone Father Name Order Entry Administrator Status 09/11/19 22 1 A Positive 221 CLOSED Fetus Data First Name Last Name Admitted to NICU Weight (g) Sex Living Outcome Pediatric Complications Fetus ID Race Codes Race Delivery Type 4224.07 55 M true Full Term [id number] Vaginal Delivery Problems Problem Notes TSH WNL/A+/Ha1c/CBC WNL Problem Name Start Date End Date Resolution Snomed Code Not e Hypothyroidism 87569606 care: history of infertility 149529894 Group B Streptococcus carrier 5964826782690 bacteriuria Maternal obesity complicating , childbirth and the puerperium, antepartum 661841364897 BMI 39- ante testing at 37w 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 8091005 maia ellsworth , baseline labs, ASA Placenta circumvallata 0353233 Serial growth u/s Pre-eclampsia 456994238 Darren Calculation Initial Darren Date Initial Exam [...] Date Ultra Sound Latest Days Gestation 0 [email or web address] 09/13/2021 03/23/20 22 0 Pre-erick Flowsheet Flowsheet Date 09/10/2021 Mckinney Score Blood Edema Fundus Height Fundus Units Glucose Ketones Leukocytes Nitrite Labor Signs Protein Cervic Dilation Cervic Effacement Cervic Station neg none Type Weight in lbs Pre/Post Dialysis Refused Weight 225.805016774016 BP Diastolic BP Location Tested BP Systolic [...] Weight in lbs Pre/Post Dialysis Refused Weight 226.897220142405 BP Diastolic BP Location Tested BP Systolic [...] Weight in lbs Pre/Post Dialysis Refused Weight 224.815189922629 BP Diastolic BP Location Tested BP Systolic [...] Weight in lbs Pre/Post Dialysis Refused Weight 230.948966448381 BP Diastolic BP Location Tested BP Systolic [...] Weight in lbs Pre/Post Dialysis Refused Weight 234.442795458407 BP Diastolic BP Location Tested BP Systolic [...] Weight in lbs Pre/Post Dialysis Refused Weight 235.271246534965 BP Diastolic BP Location Tested BP Systolic [...] Weight in lbs Pre/Post Dialysis Refused Weight 239.468074127346 BP Diastolic BP Location Tested BP Systolic [...] Weight in lbs Pre/Post Dialysis Refused Weight 240.291317061845 BP Diastolic BP Location Tested BP Systolic [...] Weight in lbs Pre/Post Dialysis Refused Weight 242.381932403058 BP Diastolic BP Location Tested BP Systolic [...] Weight in lbs Pre/Post Dialysis Refused Weight 243.764340539141 BP Diastolic BP Location Tested BP Systolic [...] Weight in lbs Pre/Post Dialysis Refused Weight 242.592747982135 BP Diastolic BP Location Tested BP Systolic [...] Weight in lbs Pre/Post Dialysis Refused Weight 246.696109908679 BP Diastolic BP Location Tested BP Systolic [...] Weight in lbs Pre/Post Dialysis Refused Weight 246.739312230875 BP Diastolic BP Location Tested BP Systolic [...] Weight in lbs Pre/Post Dialysis Refused Weight 211.376659394340 BP Diastolic BP Location Tested BP Systolic [...] Weight in lbs Pre/Post Dialysis Refused Weight 211.842423193600 BP Diastolic BP Location Tested BP Systolic BP Type 86 L arm 126 sitting Fetus Heart Rate Present Fetus Movement Comments Flowsheet Date 04/08/2022 Mckinney Score Blood Edema Fundus Height Fundus Units Glucose Ketones Leukocytes Nitrite Labor Signs Protein Cervic Dilation Cervic Effacement Cervic Station Type Weight in lbs Pre/Post Dialysis Refused Weight 212.58864444584 BP Diastolic BP Location Tested BP Systolic BP Type 84 134 Fetus Heart Rate Present Fetus Movement Comments Flowsheet Date 05/27/2022 Mckinney Score Blood Edema Fundus Height Fundus Units Glucose Ketones Leukocytes Nitrite Labor Signs Protein Cervic Dilation Cervic Effacement Cervic Station Type Weight in lbs Pre/Post Dialysis Refused Weight 221.558226930451 BP Diastolic BP Location Tested BP Systolic [...] Estim ated Date of Delivery false Thalassemia (Japanese, Vietnamese, Mediterranean, Or Background): MCV < 80 false Neural Tube Defect (Meningomyelocele, Spina Bifi da, Or Anencephaly) false Congenital Heart Defect false Down Syndrome false Curt-Sachs (eg, Buddhism, Cajun, Stateless-[place]) f alse Yung Disease false Sickle Cell Disease Or Trait () false Hemophilia Or Other Blood Disorders false Muscular Dystrophy false Cystic Fibrosis false [place] Chorea false Intellectual Disability/Autism false If Yes, [...] d Regional-Ep idural 37 false Peter Bryant NILSONIrene Maternal obesity, Gbs+ and pre eclampsia w/o severe features Discharge Information Feeding Method Contraceptive Method Maternal HG B and HCT Levels Breast Ob Episode Information Episode Created Date Number of Fetuses Patient Bloodtype Patient rh Status Prepregnancy Weight lbs Domestic Partner Domestic Partner Phone Father Name Order Entry Administrator Status 06/05/19 25 2 A Positive 198 Gabriel Mo OPEN Fetus Data First Name Last Name Admitted to NICU Weight (g) Sex Living Outcome Pediatric Complications Fetus ID Race Codes Race Delivery Type 43519 [id number] Problems Problem Notes Anatomy with MFM - 07/31/24 1 300 [facility] MF U/S & OV [facility] M[facility] 08/27/24 US only 1:00PM Problem Name Start Date End Date Resolution Snomed Code Not e care: history of infertility 463100084 Past history of shoulder dystocia 191940019 Large for gestation age fetus 418158871 less then 30 se c shoulder dystocia Past history of pre-eclampsia 860877015083296 bASA x2 Migraine 55454194 magnesium, Excedrin tension, sumatriptan 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 8243476 Palpitations 86637015 Holter monitor faxed to [facility] 07/29 Gestational diabetes mellitus 10/10/2024 71103976 Glucose tolerance test outside reference range 10/01/2024 356462073 10/01/2024 ecking blood sugars for 2 week instead for doing 3 hour Twin 01468547 38 wk deliveryantenatal testing @ 32wks per [facility] Scheduled rpt 08/27 us ONLY Darren Calculation [...] Weight in lbs Pre/Post Dialysis Refused Weight 207.688591439974 BP Diastolic BP Location Tested BP Systolic [...] disability paperwork. will plan on referral to [facility] for anatomy and history of HTN/preeclampsia, [...] Type Weight in lbs Pre/Post Dialysis Refused 214.963655208363 BP Diastolic BP Location Tested BP Systolic [...] Weight in lbs Pre/Post Dialysis Refused Weight 216.134328131112 BP Diastolic BP Location Tested BP Systolic [...] No bleeding. Will send for anatomy at [facility]. Will measure for belly band today due [...] Type Weight in lbs Pre/Post Dialysis Refused 220.233955633255 BP Diastolic BP Location Tested BP Systolic BP Type 92 152 53 114 Fetus Heart Rate Present Fetus Movement A Yes B Yes Comments Patient is having headaches, pain, contractions, swelling, Had elevated heart rate over the weekend and get heart moniter on , 08/08/24. saw [facility] this morning rec 2 bASA, will rpt anatomy in 4 weeks, precautions and education f/u 4 weeks Flowsheet Date 08/09/2024 Mckinney Score Blood Edema Fundus Height Fundus Units Glucose Ketones Leukocytes Nitrite Labor Signs Protein Cervic Dilation Cervic Effacement Cervic Station neg none none neg Type Weight in lbs Pre/Post Dialysis Refused 227.757815998390 BP Diastolic BP Location Tested BP Systolic [...] Weight in lbs Pre/Post Dialysis Refused Weight 229.538568623275 BP Diastolic BP Location Tested BP Systolic BP Type 89 133 Fetus Heart Rate Present Fetus Movement A Yes B Yes Comments Patient is having pressure, contractions and swelling. Flowsheet Date 08/29/2024 Mckinney Score Blood Edema Fundus Height Fundus Units Glucose Ketones Leukocytes Nitrite Labor Signs Protein Cervic Dilation Cervic Effacement Cervic Station Type Weight in lbs Pre/Post Dialysis Refused 232.30022692241 BP Diastolic BP Location Tested BP Systolic [...] Type Weight in lbs Pre/Post Dialysis Refused [id number] BP Diastolic BP Location Tested BP Systolic [...] Type Weight in lbs Pre/Post Dialysis Refused [id number] BP Diastolic BP Location Tested BP Systolic BP Type 87 138 Fetus Heart Rate Present Fetus Movement A Yes B Yes Comments Patient is having pain and c ontractions and swelling. 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 for tub chucker referral to fiordal[facility], eduction and precautions f/u [...] Weight in lbs Pre/Post Dialysis Refused Weight [id number] BP Diastolic BP Location Tested BP Systolic BP Type 82 125 Fetus Heart Rate Present Fetus Movement Comments Flowsheet Date 10/23/2024 Mckinney Score Blood Edema Fundus Height Fundus Units Glucose Ketones Leukocytes Nitrite Labor Signs Protein Cervic Dilation Cervic Effacement Cervic Station neg trace Type Weight in lbs Pre/Post Dialysis Refused [id number] BP Diastolic BP Location Tested BP Systolic [...] ld for evaluation not fee ling well Flowsheet Date 11/06/2024 Mckinney Score Blood Edema Fundus Height Fundus Units Glucose Ketones Leukocytes Nitrite Labor Signs Protein Cervic Dilation Cervic Effacement Cervic Station Type Weight in lbs Pre/Post Dialysis Refused BP Diastolic BP Location Tested BP Systolic BP Type Fetus Heart Rate Present Fetus Movement Comments Flowsheet Date 11/06/2024 Mckinney Score Blood Edema Fundus Height Fundus Units Glucose Ketones Leukocytes Nitrite Labor Signs Protein Cervic Dilation Cervic Effacement Cervic Station Type Weight in lbs Pre/Post Dialysis Refused BP Diastolic BP Location Tested BP Systolic BP Type Fetus Heart Rate Present Fetus Movement Comments Flowsheet Date 11/06/2024 Mckinney Score Blood Edema Fundus Height Fundus Units Glucose Ketones Leukocytes Nitrite Labor Signs Protein Cervic Dilation Cervic Effacement Cervic Station Type Weight in lbs Pre/Post Dialysis Refused [id number] BP Diastolic BP Location Tested BP Systolic BP Type 87 L arm 133 sitting Fetus Heart Rate Present Fetus Movement A Yes B Yes Comments reviewed US, discussed PTL, taking procardia xl daily and procardia 10 mg at hs for breakthrough, discussed with dr. wilkinson, plan 37 week IOL if doesn't deliver prior for chronic hTN controlled on medication education and precautions f/u 1 week Menstrual History Last Menstrual Date Menses Monthly On Bcp Conception Prior Menses Frequency Hcg Plus Date Menarche Onset Age Delivery Information Delivery Date Delivery Type Labor Anesthesia Weeks Gestation Incision Type Labor Labor Length Hrs Delivered By Post Complications Tubal Sterilization Discharge Date Comments Discharge Information Feeding Method Contraceptive Method Maternal HG B and HCT Levels
--- OUTSIDE RECORDS SUMMARY | 2024-11-09 00:39 | XMS_ITS | Data Portability ---
Author Organization [facility] [place] Address [address] [place] [address] Care Team Providers Care Equal Opportunity Officer Name Role Phone ZO MORA OTHER Assessment [...] auto diff 2018 019 [facility], [address] [address], [place], [address], 9 06:40:13 ferritin, serum or plasma 2018 019 [facility], [address] [facility] [address], [place], [address], 9 06:40:14 iron + total iron-bindin g capacity (TIBC), serum 2018 019 [facility], [address] [place] [address] 2, [place], [address], 9 06:40:14 HIV 1+2 AB + HIV 1 p24 Ag, qualitative immunoassay , serum 2018 019 [facility], [address], [place], [address], 9 07:12:01 HBsAg (hepatitis B surface Ag), EIA, serum 2018 019 [facility], [address], [place], [address], 9 07:12:02 hepatitis C Ab, signal-to-c utoff, serum or plasma 2018 019 [facility], [address], [place], [address], 9 07:12:01 RPR (rapid plasma reagin), serum 2018 019 [facility], [address], [place], [address], 9 07:12:00 hsv (1+2) igg Ab, serum 2018 019 [facility], [address] [facility], [place], [address], 9 07:12:00 CBC w/ auto diff 2018 019 [facility], [address] [facility], [place], [address], 9 07:11:59 Referral general surgeon referral 2018 019 LANA Moralez MD, [address] [facility] , [facility] [address], [place], [address], 9 12:38:24 ENT referral - Saw Dr. Mora --- need a second opinion. 2018 019 [facility], [facility] [address], [place], [address], 9 17:55:21 Procedures None recorded. Surgeries None recorded. Imaging None recorded. Medication Orders ferrous sulfate 325 mg (65 mg iron) tablet [address] [facility] [address] [facility], [address] [place] [address], [address], 9 11:26:58 Mucinex 600 mg tablet, extended release [address] [facility], [address] [place] [address], [address], 9 00:24:12 ferrous sulfate 325 mg (65 mg iron) tablet [address] [facility], [address] [place] [address], [address], 9 12:48:40 Tessalon Perles 100 mg capsule [address] [facility], [address] [place] [address], [address], 9 00:24:06 Patient TargetsNo targets recorded. Patient Instructions Encounter Date Encounter Id Patient Instructions Last Modified By Organization Details Last Modified Time 07/27/2018 [id number] upper respirator y infection (cold): care instructions critical access Not available 07/27/2018 13:23:41 08/29/2018 [id number] hemorrhoids: car e instructions Not available 08/29/2018 16:13:52 anemia: care instructions Not available 08/29/2018 18:08:26 09/05/2018 [id number] Acute Sinusitis: Care Instructions Not available 09/05/2018 12:48:40 11/13/2018 [id number] hemorrhoids: car e instructions critical access Not available 11/27/2018 00:17:15 02/13/2019 [id number] dizziness: care instructions critical access Not available 02/13/2019 11:26:58 electrocardiogra m interpretation* ATHENAFAX Not available 03/13/2019 15:05:29 Reason for Referral ENT Referral for Cervical ly mphadenopathy Saw Dr. Mora --- need a second opinion. Referring Physician: Lucero Sandoval, Family Medicine, Encounter Date: 07/27/2018 General Surgeon Referral for Hemorrhoids Referring Physician: Ricardo Ramirez, [employer], Encounter Date: 08/29/2018 Results Created Date Observation Date Name Description Value Unit Range Abnormal Flag Note LastModifiedBy Organization Detail LastModifiedTime 07/04/19 19 07/05/2018 TSH + free T4, serum TSH 3.080 uIU/m L 0.450- 4.500 Not Available [facility] ([facility]) [address] [place], [address], 07/05/2018 09:23:03 07/04/19 19 07/05/2018 TSH + free T4, serum T4,free(dire ct) 1.06 NG/dL 0.82-1 .77 Not Available [facility] ([facility]) [address] [place], [address], 07/05/2018 09:23:03 07/04/19 19 07/04/2018 CBC w/ auto diff WBC 7.2 x10e3 /uL 3.4-10 .8 Not Available [facility] ([facility]) [address] [place], [address], 07/05/2018 09:23:03 07/04/19 19 07/04/2018 CBC w/ auto diff RBC 4.87 x10e6 /uL 3.77-5 .28 Not Available [facility] ([facility]) [address] [place], [address], 07/05/2018 09:23:03 07/04/19 19 07/04/2018 CBC w/ auto diff hemoglobin 11.5 g/dL 11.1-1 5.9 Not Available [facility] ([facility]) [address] [place], [address], 07/05/2018 09:23:03 07/04/19 19 07/04/2018 CBC w/ auto diff hematocrit 36.2 % 34.0-4 6.6 Not Available [facility] ([facility]) [address] [place], [address], 07/05/2018 09:23:03 07/04/19 19 07/04/2018 CBC w/ auto diff MCV 74 fL 79-97 below low normal Not Available [facility] ([facility]) [address] [place], [address], 07/05/2018 09:23:03 07/04/19 19 07/04/2018 CBC w/ auto diff MCH 23.6 pg 26.6-3 3.0 below low normal Not Available [facility] ([facility]) [address] [place], [address], 07/05/2018 09:23:03 07/04/19 19 07/04/2018 CBC w/ auto diff MCHC 31.8 g/dL 31.5-3 5.7 Not Available [facility] ([facility]) [address] [place], [address], 07/05/2018 09:23:03 07/04/19 19 07/04/2018 CBC w/ auto diff RDW 16.0 % 12.3-1 5.4 above high normal Not Available [facility] ([facility]) [address] [place], [address], 07/05/2018 09:23:03 07/04/19 19 07/04/2018 CBC w/ auto diff platelets 480 x10e3 /uL 150-37 9 above high normal Not Available [facility] ([facility]) [address] [place], [address], 07/05/2018 09:23:03 07/04/19 19 07/04/2018 CBC w/ auto diff neutrophils 64 % not estab. Not Available [facility] ([facility]) [address] [place], [address], 07/05/2018 09:23:03 07/04/19 19 07/04/2018 CBC w/ auto diff lymphs 28 % not estab. Not Available [facility] ([facility]) [address] [facility], [place], [address], 07/05/2018 09:23:03 07/04/19 19 07/04/2018 CBC w/ auto diff monocytes 6 % not estab. Not Available [facility] ([facility]) [address] [facility], [place], [address], 07/05/2018 09:23:03 07/04/19 19 07/04/2018 CBC w/ auto diff eos 1 % not estab. Not Available [facility] ([facility]) [address] [place], [address], 07/05/2018 09:23:03 07/04/19 19 07/04/2018 CBC w/ auto diff basos 1 % not estab. Not Available [facility] ([facility]) [address] [facility], [place], [address], 07/05/2018 09:23:03 07/04/19 19 07/04/2018 CBC w/ auto diff immature cells FASHION DIRECTOR Not Available [facility] ([facility]) [address] [facility], [place], [address], 07/05/2018 09:23:03 07/04/19 19 07/04/2018 CBC w/ auto diff neutrophils (absolute) 4.6 x10e3 /uL 1.4-7. 0 Not Available [facility] ([facility]) [address] [place], [address], 07/05/2018 09:23:03 07/04/19 19 07/04/2018 CBC w/ auto diff lymphs (absolute) 2.0 x10e3 /uL 0.7-3. 1 Not Available [facility] ([facility]) [address] [place], [address], 07/05/2018 09:23:03 07/04/19 19 07/04/2018 CBC w/ auto diff monocytes(ab solute) 0.5 x10e3 /uL 0.1-0. 9 Not Available [facility] ([facility]) [address] [facility], [place], [address], 07/05/2018 09:23:03 07/04/19 19 07/04/2018 CBC w/ auto diff eos (absolute) 0.1 x10e3 /uL 0.0-0. 4 Not Available [facility] ([facility]) [address] [facility], [place], [address], 07/05/2018 09:23:03 07/04/19 19 07/04/2018 CBC w/ auto diff baso (absolute) 0.1 x10e3 /uL 0.0-0. 2 Not Available [facility] ([facility]) [address] [facility], [place], [address], 07/05/2018 09:23:03 07/04/19 19 07/04/2018 CBC w/ auto diff immature granulocytes 0 % not estab. Not Available [facility] ([facility]) [address] [facility], [place], [address], 07/05/2018 09:23:03 07/04/19 19 07/04/2018 CBC w/ auto diff immature grans (abs) 0.0 x10e3 /uL 0.0-0. 1 Not Available [facility] ([facility]) [address] [facility], [place], [address], 07/05/2018 09:23:03 07/04/19 19 07/04/2018 CBC w/ auto diff NRBC FASHION DIRECTOR Not Available [facility] ([facility]) [address] [place], [address], 07/05/2018 09:23:03 07/04/19 19 07/04/2018 CBC w/ auto diff hematology comments: FASHION DIRECTOR Not Available [facility] ([facility]) [address] [facility], [place], [address], 07/05/2018 09:23:03 07/04/19 19 07/05/2018 CMP, serum or plasm a glucose 90 mg/dL 65-99 Not Available [facility] ([facility]) [address] [place], [address], 07/05/2018 09:23:04 07/04/19 19 07/05/2018 CMP, serum or plasm a BUN 9 mg/dL 6-20 Not Available [facility] ([facility]) [address] [place], [address], 07/05/2018 09:23:04 07/04/19 19 07/05/2018 CMP, serum or plasm a creatinine 0.66 mg/dL 0.57-1 .00 Not Available [facility] ([facility]) [address] [place], [address], 07/05/2018 09:23:04 07/04/19 19 07/05/2018 CMP, serum or plasm a eGFR if nonafricn AM 123 mL/mi n/1.7 3 >59 Not Available [facility] ([facility]) [address] [place], [address], 07/05/2018 09:23:04 07/04/19 19 07/05/2018 CMP, serum or plasm a eGFR if africn AM 142 mL/mi n/1.7 3 >59 Not Available [facility] ([facility]) [address] [place], [address], 07/05/2018 09:23:04 07/04/19 19 07/05/2018 CMP, serum or plasm a BUN/creatini ne ratio 14 9-23 Not Available [facility] ([facility]) [address] [place], [address], 07/05/2018 09:23:04 07/04/19 19 07/05/2018 CMP, serum or plasm a sodium 139 mmol/ L 134-14 4 Not Available [facility] ([facility]) [address] [place], [address], 07/05/2018 09:23:04 07/04/1907/05/2018 CMP, serum or plasm a potassium 4.4 mmol/ L 3.5-5. 2 Not Available [facility] ([facility]) [address] [place], [address], 07/05/2018 09:23:04 07/04/1907/05/2018 CMP, serum or plasm a chloride 102 mmol/ L 96-106 Not Available [facility] ([facility]) [address] [place], [address], 07/05/2018 09:23:04 07/04/1907/05/2018 CMP, serum or plasm a carbon dioxide, total 23 mmol/ L 20-29 Not Available [facility] ([facility]) [address] [place], [address], 07/05/2018 09:23:04 07/04/1907/05/2018 CMP, serum or plasm a calcium 9.7 mg/dL 8.7-10 .2 Not Available [facility] ([facility]) [address] [place], [address], 07/05/2018 09:23:04 07/04/19 19 07/05/2018 CMP, serum or plasm a protein, total 8.1 g/dL 6.0-8. 5 Not Available [facility] ([facility]) [address] [place], [address], 07/05/2018 09:23:04 07/04/1907/05/2018 CMP, serum or plasm a albumin 4.6 g/dL 3.5-5. 5 Not Available [facility] ([facility]) [address] [place], [address], 07/05/2018 09:23:04 07/04/1907/05/2018 CMP, serum or plasm a globulin, total 3.5 g/dL 1.5-4. 5 Not Available [facility] ([facility]) [address] [place], [address], 07/05/2018 09:23:04 07/04/1907/05/2018 CMP, serum or plasm a A/G ratio 1.3 1.2-2. 2 Not Available [facility] ([facility]) [address] [place], [address], 07/05/2018 09:23:04 07/04/1907/05/2018 CMP, serum or plasm a bilirubin, total 0.3 mg/dL 0.0-1. 2 Not Available [facility] ([facility]) [address] [place], [address], 07/05/2018 09:23:04 07/04/1907/05/2018 CMP, serum or plasm a alkaline phosphatase 68 IU/L 39-117 Not Available [facility]) [address] [place], [address], 07/05/2018 09:23:04 07/04/1907/05/2018 CMP, serum or plasm a AST (SGOT) 20 IU/L 0-40 Not Available [facility] ([facility]) [address] [place], [address], 07/05/2018 09:23:04 07/04/1907/05/2018 CMP, serum or plasm a ALT (SGPT) 15 IU/L 0-32 Not Available [facility] ([facility]) [address] [place], [address], 07/05/2018 09:23:04 07/04/1907/05/2018 cytom egalo virus (cmv) igg+i gm Ab, serum cytomegalovi yung (CMV) Ab, IgG <0.60 U/mL 0.00-0 .59 Negat hayde <0.60 Equiv ocal 0.60 - 0.69 Posit hayde >0.69 Not Available [facility] ([facility]) [address] [facility], [place], [address], 07/05/2018 09:23:04 07/04/19 19 07/05/2018 cytom egalo virus (cmv) igg+i gm Ab, serum cytomegalovi yung (CMV) Ab, IgM <30.0 AU/mL 0.0-29 .9 Negat hadye <30.0 Equiv ocal 30.0 - 34.9 Posit hayde >34.9 A posit hayde resul t is gener ally indic ative of acute infec tion, react ivati on or persi stent IgM produ ction . Not Available [facility] ([facility]) [address] [facility], [place], [address], 07/05/2018 09:23:04 07/04/1907/05/2018 RPR (rapi d plasm a reagi n), serum RPR Non Reacti ve non reacti ve Not Available [facility] ([facility]) [address] [facility], [place], [address], 07/05/2018 09:23:05 07/04/1907/05/2018 heter ophil e Ab, quali tativ e latex agglu tinat ion, serum mono qual w/rflx qn Negati ve negati ve The sensi tivit y of Heter ophil e antib srinivasan testi ng is 80-90 %. Epste in [place] IgM testi ng offer s highe r sensi tivit y. Not Available [facility] ([facility]) [address] [facility], [place], [address], 07/05/2018 09:23:06 08/30/1908/30/2018 CBC w/ auto diff WBC 7.4 x10e3 /uL 3.4-10 .8 Not Available [facility] ([facility]) [address] [place], [address], 08/30/2018 07:11:59 08/30/19 19 08/30/2018 CBC w/ auto diff RBC 4.51 x10e6 /uL 3.77-5 .28 Not Available [facility] ([facility]) [address] [place], [address], 08/30/2018 07:11:59 08/30/19 19 08/30/2018 CBC w/ auto diff hemoglobin 11.0 g/dL 11.1-1 5.9 below low normal Not Available [facility] ([facility]) [address] [place], [address], 08/30/2018 07:11:59 08/30/1908/30/2018 CBC w/ auto diff hematocrit 34.2 % 34.0-4 6.6 Not Available [facility] ([facility]) [address] [place], [address], 08/30/2018 07:11:59 08/30/19 19 08/30/2018 CBC w/ auto diff MCV 76 fL 79-97 below low normal Not Available [facility] ([facility]) [address] [place], [address], 08/30/2018 07:11:59 08/30/19 19 08/30/2018 CBC w/ auto diff MCH 24.4 pg 26.6-3 3.0 below low normal Not Available [facility] ([facility]) [address] [place], [address], 08/30/2018 07:11:59 08/30/1908/30/2018 CBC w/ auto diff MCHC 32.2 g/dL 31.5-3 5.7 Not Available [facility] ([facility]) [address] [place], [address], 08/30/2018 07:11:59 08/30/19 19 08/30/2018 CBC w/ auto diff RDW 15.6 % 12.3-1 5.4 above high normal Not Available [facility] ([facility]) [address] [facility], [place], [address], 08/30/2018 07:11:59 08/30/19 19 08/30/2018 CBC w/ auto diff platelets 389 x10e3 /uL 150-37 9 above high normal Not Available [facility] ([facility]) [address] [facility], [place], [address], 08/30/2018 07:11:59 08/30/19 19 08/30/2018 CBC w/ auto diff neutrophils 59 % not estab. Not Available [facility] ([facility]) [address] [facility], [place], [address], 08/30/2018 07:11:59 08/30/19 19 08/30/2018 CBC w/ auto diff lymphs 31 % not estab. Not Available [facility] ([facility]) [address] [facility], [place], [address], 08/30/2018 07:11:59 08/30/19 19 08/30/2018 CBC w/ auto diff monocytes 8 % not estab. Not Available [facility] ([facility]) [address] [facility], [place], [address], 08/30/2018 07:11:59 08/30/19 19 08/30/2018 CBC w/ auto diff eos 1 % not estab. Not Available [facility] ([facility]) [address] [facility], [place], [address], 08/30/2018 07:11:59 08/30/1908/30/2018 CBC w/ auto diff basos 1 % not estab. Not Available [facility] ([facility]) [address] [facility], [place], [address], 08/30/2018 07:11:59 08/30/1908/30/2018 CBC w/ auto diff immature cells FASHION DIRECTOR Not Available [facility] ([facility]) [address] [facility], [place], [address], 08/30/2018 07:11:59 08/30/19 19 08/30/2018 CBC w/ auto diff neutrophils (absolute) 4.4 x10e3 /uL 1.4-7. 0 Not Available [facility] ([facility]) [address] [place], [address], 08/30/2018 07:11:59 08/30/1908/30/2018 CBC w/ auto diff lymphs (absolute) 2.3 x10e3 /uL 0.7-3. 1 Not Available [facility] ([facility]) [address] [place], [address], 08/30/2018 07:11:59 08/30/1908/30/2018 CBC w/ auto diff monocytes(ab solute) 0.6 x10e3 /uL 0.1-0. 9 Not Available [facility] ([facility]) [address] [place], [address], 08/30/2018 07:11:59 08/30/1908/30/2018 CBC w/ auto diff eos (absolute) 0.1 x10e3 /uL 0.0-0. 4 Not Available [facility] ([facility]) [address] [place], [address], 08/30/2018 07:11:59 08/30/1908/30/2018 CBC w/ auto diff baso (absolute) 0.0 x10e3 /uL 0.0-0. 2 Not Available [facility] ([facility]) [address] [place], [address], 08/30/2018 07:11:59 08/30/1908/30/2018 CBC w/ auto diff immature granulocytes 0 % not estab. Not Available [facility] ([facility]) [address] [place], [address], 08/30/2018 07:11:59 08/30/1908/30/2018 CBC w/ auto diff immature grans (abs) 0.0 x10e3 /uL 0.0-0. 1 Not Available [facility] ([facility]) [address] [facility], [place], [address], 08/30/2018 07:11:59 08/30/1908/30/2018 CBC w/ auto diff NRBC FASHION DIRECTOR Not Available [facility] ([facility]) [address] [facility], [place], [address], 08/30/2018 07:11:59 08/30/1908/30/2018 CBC w/ auto diff hematology comments: FASHION DIRECTOR Not Available [facility] ([facility]) [address] [facility], [place], [address], 08/30/2018 07:11:59 08/30/1908/30/2018 hsv (1+2) igg Ab, [...] willy to HSV-1 . Not Available [facility] ([facility]) [address] [facility], [place], [address], 08/30/2018 07:12:00 08/30/1908/30/2018 hsv (1+2) igg Ab, [...] willy to HSV-2 . Not Available [facility] ([facility]) [address] [facility], [place], [address], 08/30/2018 07:12:00 08/30/19 19 08/30/2018 RPR (rapi d plasm a reagi n), serum RPR Non Reacti ve non reacti ve Not Available [facility] ([facility]) [address] [facility], [place], [address], 08/30/2018 07:12:00 08/30/1908/30/2018 HIV 1+2 AB + HIV 1 p24 Ag, quali tativ e immun oassa y, serum HIV screen 4TH generation wrfx Non Reacti ve non reacti ve Not Available [facility] ([facility]) [address] [facility], [place], [address], 08/30/2018 07:12:01 08/30/19 19 08/30/2018 hepat itis C Ab, signa l-to- cutof f, serum or plasm a HCV Ab <0.1 s/co_ ratio 0.0-0. 9 Not Available [facility] ([facility]) [address] [facility], [place], [address], 08/30/2018 07:12:01 08/30/1908/30/2018 hepat itis C Ab, signa l-to- cutof f, serum or plasm a comment: Commen t Non react hayde HCV antib srinivasan scree n is consi stent with no HCV infec tion, unles s recen t infec tion is suspe cted or other evide nce exist s to indic ate HCV infec tion. Not Available [facility] ([facility]) [address] [facility], [place], [address], 08/30/2018 07:12:01 08/30/1908/30/2018 HBsAg (hepa titis B surfa ce Ag), EIA, serum HBsAg screen Negati ve negati ve Not Available [facility] ([facility]) [address] [facility], [place], [address], 08/30/2018 07:12:02 02/14/2002/14/2019 CBC w/ auto diff WBC 7.5 x10e3 /uL 3.4-10 .8 Not Available [facility] ([facility]) [address] [facility], [place], [address], 02/14/2019 06:40:13 02/14/2002/14/2019 CBC w/ auto diff RBC 4.34 x10e6 /uL 3.77-5 .28 Not Available [facility] ([facility]) [address] [facility], [place], [address], 02/14/2019 06:40:13 02/14/2002/14/2019 CBC w/ auto diff hemoglobin 11.1 g/dL 11.1-1 5.9 Not Available [facility] ([facility]) [address] [facility], [place], [address], 02/14/2019 06:40:13 02/14/2002/14/2019 CBC w/ auto diff hematocrit 34.2 % 34.0-4 6.6 Not Available [facility] ([facility]) [address] [facility], [place], [address], 02/14/2019 06:40:13 02/14/2002/14/2019 CBC w/ auto diff MCV 79 fL 79-97 Not Available [facility] ([facility]) [address] [facility], [place], [address], 02/14/2019 06:40:13 02/14/2002/14/2019 CBC w/ auto diff MCH 25.6 pg 26.6-3 3.0 below low normal Not Available [facility] ([facility]) [address] [facility], [place], [address], 02/14/2019 06:40:13 02/14/2002/14/2019 CBC w/ auto diff MCHC 32.5 g/dL 31.5-3 5.7 Not Available [facility] ([facility]) [address] [facility], [place], [address], 02/14/2019 06:40:13 02/14/2002/14/2019 CBC w/ auto diff RDW 15.0 % 12.3-1 5.4 Not Available [facility] ([facility]) [address] [facility], [place], [address], 02/14/2019 06:40:13 02/14/2002/14/2019 CBC w/ auto diff platelets 372 x10e3 /uL 150-45 0 Not Available [facility] ([facility]) [address] [facility], [place], [address], 02/14/2019 06:40:13 02/14/2002/14/2019 CBC w/ auto diff neutrophils 61 % not estab. Not Available [facility] ([facility]) [address] [facility], [place], [address], 02/14/2019 06:40:13 02/14/2002/14/2019 CBC w/ auto diff lymphs 28 % not estab. Not Available [facility] ([facility]) [address] [facility], [place], [address], 02/14/2019 06:40:13 02/14/2002/14/2019 CBC w/ auto diff monocytes 8 % not estab. Not Available [facility] ([facility]) [address] [facility], [place], [address], 02/14/2019 06:40:13 02/14/2002/14/2019 CBC w/ auto diff eos 2 % not estab. Not Available [facility] ([facility]) [address] [facility], [place], [address], 02/14/2019 06:40:13 02/14/2002/14/2019 CBC w/ auto diff basos 1 % not estab. Not Available [facility] ([facility]) [address] [facility], [place], [address], 02/14/2019 06:40:13 02/14/2002/14/2019 CBC w/ auto diff immature cells FASHION DIRECTOR Not Available [facility] ([facility]) [address] [facility], [place], [address], 02/14/2019 06:40:13 02/14/2002/14/2019 CBC w/ auto diff neutrophils (absolute) 4.7 x10e3 /uL 1.4-7. 0 Not Available [facility] ([facility]) [address] [facility], [place], [address], 02/14/2019 06:40:13 02/14/2002/14/2019 CBC w/ auto diff lymphs (absolute) 2.1 x10e3 /uL 0.7-3. 1 Not Available [facility] ([facility]) [address] [facility], [place], [address], 02/14/2019 06:40:13 02/14/2002/14/2019 CBC w/ auto diff monocytes(ab solute) 0.6 x10e3 /uL 0.1-0. 9 Not Available [facility] ([facility]) [address] [facility], [place], [address], 02/14/2019 06:40:13 02/14/2002/14/2019 CBC w/ auto diff eos (absolute) 0.1 x10e3 /uL 0.0-0. 4 Not Available [facility] ([facility]) [address] [place], [address], 02/14/2019 06:40:13 02/14/2002/14/2019 CBC w/ auto diff baso (absolute) 0.0 x10e3 /uL 0.0-0. 2 Not Available [facility] ([facility]) [address] [facility], [place], [address], 02/14/2019 06:40:13 02/14/2002/14/2019 CBC w/ auto diff immature granulocytes 0 % not estab. Not Available [facility] ([facility]) [address] [facility], [place], [address], 02/14/2019 06:40:13 02/14/2002/14/2019 CBC w/ auto diff immature grans (abs) 0.0 x10e3 /uL 0.0-0. 1 Not Available [facility] ([facility]) [address] [place] [address], [place], [address], 02/14/2019 06:40:13 02/14/2002/14/2019 CBC w/ auto diff NRBC FASHION DIRECTOR Not Available [facility] ([facility]) [address] [place] [address], [place], [address], 02/14/2019 06:40:13 02/14/2002/14/2019 CBC w/ auto diff hematology comments: FASHION DIRECTOR Not Available [facility] ([facility]) [address] [facility], [place], [address], 02/14/2019 06:40:13 02/14/2002/14/2019 iron + total iron- leta ng capac ity (TIBC ), serum iron bind.cap.(TI BC) 353 ug/dL 250-45 0 Not Available [facility] ([facility]) [address] [place], [address], 02/14/2019 06:40:14 02/14/2002/14/2019 iron + total iron- leta ng capac ity (TIBC ), serum UIBC 336 ug/dL 131-42 5 Not Available [facility] ([facility]) [address] [place] [address], [address], 02/14/2019 06:40:14 02/14/2002/14/2019 iron + total iron- leta ng capac ity (TIBC ), serum iron 17 ug/dL 27-159 below low normal Not Available [facility] ([facility]) [address] [facility], [place], [address], 02/14/2019 06:40:14 02/14/20 19 02/14/2019 iron + total iron- leta ng capac ity (TIBC ), serum iron saturation 5 % 15-55 alert low Not Available [facility] ([facility]) [address] [facility], [place], [address], 02/14/2019 06:40:14 02/14/2002/14/2019 cristina tin, serum or plasm a ferritin, serum 7 NG/mL 15-150 below low normal Not Available [facility] ([facility]) [address] [facility], [place], [address], 02/14/2019 06:40:14 07/04/19 19 07/04/2018 XR, chest No observ ation record ed. [email or web address] [address] [place], [address], 07/06/2018 16:35:07 08/16/19 19 08/09/2018 CT, neck, soft tissu e, w/ contr ast No observ ation record ed. [address] [place], [address], 11/27/2018 00:09:00 08/17/19 19 08/16/2018 CT, sinus es, w/o contr ast No observ ation record ed. [address] [place], [address], 08/16/2018 13:21:28 Result Notes None recorded. 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 Active 2018 [facility] New 9 11:15:19 Upper respirat ory infectio n 30504791 Completed 201811/13/2018 [place], [place] [facility] 9 11:05:53 Mean corpuscu lar volume below referenc e range 759112064 Active 2018 [place] [facility] 9 12:49:50 Acute sinusiti s 26728711 Completed 201811/13/2018 [place] [facility] 9 11:05:49 History of Helicoba cter pylori infectio n 01030201926 966714 Active 2018 GI [place] [facility] 9 00:05:39 Chronic gastriti s 8663921 Active 2018 EGD - H pylori, GI [place] [facility] 9 00:06:03 Hemorrho ids 83915502 Active 2018 Gen sx planning for hemorrho idectomy [place] [facility] 9 00:06:27 Dizzines s 013362644 Active 2018 [place] [facility] 9 11:29:10 Infectiv e vaginiti s 259555582 Active Radha [place] [facility] 6 11:25:47 Infectiv e vaginiti s 152013882 Completed Shahrzad Barrera [place] [facility] 5 09:18:25 Maternal care for diminish ed movement s Active Radha [place] [facility] 6 11:25:47 Maternal care for diminish ed movement s Completed Shahrzad Barrera [place] [facility] 5 09:18:25 Breastfe eding painful 937527047 Active Radha Lay[place] [facility] 6 11:25:47 Pain in pelvis 95225789 Active Rad[place] [facility] 6 11:25:47 Vaginal discharg e 949309361 Active white Radha moreno, [facility] 6 11:25:47 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 Procedures Surgical History Date Name Laterality Status Provider Name and Address Organization Details Recorded Time 05/08/19 16 Cholecystectomy completed Radha Garcia [facility] 11/03/2015 11:25:48 01/15/20 15 IUD Insertion completed Ricardo Box [facility] 01/14/2015 12:23:57 04/18/20 12 Date of Last Pap Smear completed Mily Parsons MA [facility] 05/06/2014 16:14:24 05/08/19 10 Appendectomy completed Maida Do MA [facility] 06/17/2014 11:12:04 Imaging Results None recorded. [...] Body temperature Respiratory rate Heart rate Systolic And Diastolic Provider Name and Address Organization Details Last Updated DateTime 9 162.56 cm 36.7 kg/m2 19340.0 4 g 97.9 [degF] 16 /min 76 /min 124/86 mm[Hg] Jenelle Groves [place] - [facility] 9 12:24:37 Date Recorded Body height Body mass index (BMI) Body weight Systolic And Diastolic Provider Name and Address Organization Details Last Updated DateTime 08/29/2018 162.56 cm 36.2 kg/m2 89916.99 g 130/94 mm[Hg] Shahrzad Barrera MA [facility] 08/29/2018 11:38:34 Date Recorded Body height Body mass index (BMI) Body weight Body temperature Heart rate Respiratory rate Systolic And Diastolic Provider Name and Address Organization Details Last Updated DateTime 9 162.56 cm 36 kg/m2 86098.6 1 g 98.3 [degF] 84 /min 20 /min 132/84 mm[Hg] Jenelle Groves MA [facility] 9 12:15:41 Date Recorded Body height Body mass index (BMI) Body weight Body temperature Heart rate Respiratory rate Systolic And Diastolic Provider Name and Address Organization Details Last Updated DateTime 9 162.56 cm 35.5 kg/m2 41877.9 7 g 98.3 [degF] 70 /min 18 /min 130/80 mm[Hg] Jenelle Groves MA [facility] 9 10:43:45 Date Recorded Body height Body mass index (BMI) Body weight Heart rate Respiratory rate Body temperature Systolic And Diastolic Provider Name and Address Organization Details Last Updated DateTime 9 162.56 cm 36.3 kg/m2 29854.7 9 g 86 /min 20 /min 98.3 [degF] 130/82 mm[Hg] Jenelle Groves MA [facility] 9 11:02:19 Social History Question Answer Notes LastModified by Organizat ion Details LastModified Time Tobacco Smoking Status Never Smoker Maida Do MA [facility] 06/17/2014 11:12:04 Do You Have An Advance [...] Live Alone Or With Others? With Others robin Information not available 06/17/2014 Marital Status [place] [address] Informatio n not available 06/17/2014 What Was [...] or Bladder Problems N Lung Disease N Depression N GI Problems N Acne N Breast Problem N Eating [...] SNOMED-CT Code Diagnosis ICD10 Code Diagnosis Note [id number] MD Lalo Weaver ([facility]) [address] [place] [address] 05/06/2014 15:15:04 05/07/2014 13:43:54 [id number] test positive [id number] Joan Blas [facility] Lalo Husain ([facility]) [address] [place] [address] 05/22/2014 14:23:39 05/22/2014 15:25:47 [id number] MD Lalo Roldan ([facility]) [address] [place] [address] 06/17/2014 10:44:30 06/17/2014 15:08:09 [id number] MD Lalo Roldan ([facility]) [address] [place] [address] 07/15/2014 10:26:03 07/16/2014 09:23:26 Normal [id number] MD Lalo Weaver ([facility] [address] [place] [address] 08/12/2014 09:35:12 08/12/2014 12:42:08 Normal [id number] MD Lalo Weaver ([facility]) [address] [place] [address] 08/26/2014 11:56:11 08/27/2014 16:10:13 [id number] MD Lalo Weaver ([facility]) [address] [place] [address] 09/09/2014 14:42:01 09/09/2014 15:30:17 [id number] MD Lalo Weaver ([facility]) [address] [place] [address] 09/23/2014 09:49:09 09/23/2014 15:23:49 [id number] MD Lalo Weaver ([facility]) [address] [place] [address] 10/07/2014 10:59:01 10/07/2014 11:38:07 [id number] MD Lalo Weaver ([facility]) [address] [place] [address] 10/21/2014 09:36:51 10/23/2014 12:51:20 [id number] MD Lalo Weaver ([facility]) [address] [place] [address] 11/04/2014 09:43:59 11/04/2014 14:45:01 [id number] Normal [id number] MD Lalo Weaver ([facility]) [address] [place] [address] 11/11/2014 11:18:25 11/11/2014 14:54:02 [id number] Maternal c are for diminished movements [id number] MD Lalo Weaver ([facility]) [address] [place] [address] 11/18/2014 10:46:59 11/18/2014 11:58:55 [id number] MD Lalo Weaver ([facility]) [address] [place] [address] 11/24/2014 08:49:50 11/24/2014 10:29:51 [id number] MD Lalo Weaver ([facility]) [address] [place] [address] 12/24/2014 09:05:47 12/24/2014 12:04:57 care [id number] MD Lalo Weaver ([facility]) [address] [place] [address] 01/14/2015 11:47:27 01/14/2015 12:33:02 care [id number] Uses contraception [id number] MD Lalo Weaver Womens ([facility] [address] [place] [address] 01/19/2015 15:46:51 01/20/2015 09:49:17 IUD check 973648720 [id number] MD Lalo Weaver [facility]ens ([facility] [address] [place] [address] 02/11/2015 10:38:39 02/18/2015 18:08:10 IUD check 991007362 Z30.431 [id number] Joan Blas [facility] Lalo Womenjavi ([facility] [address] [place] [address] 11/03/2015 11:00:12 11/03/2015 14:33:42 detection examination 50413788 Z32.00 IUD check 899911108 Z30. 392 [id number] MD Lalo HURTADO 14 IM [address] [facility] [place] [address] 07/04/2018 09:50:09 07/04/2018 16:26:43 Cervical lymphadenopathy 487427485 R59.0 Had a cough since 02/2018, on and off No traveling. No cat. Weight stable overall. Fatigue - despite sleeping. No dental issues. No focal weakness. Sweaty at times. Irregular periods. Neuro intact. ENT will do US +/- biopsy soon. Labs. Check for mono, syphilis, CMV, CXR. RTC 3mo Disorder o f thyroid gland 90625687 E07.9 Had a cough since 02/2018, on and off. Check TSH [id number] MD Lalo HURTADO [address] IM [address] [place] [address] 07/27/2018 12:09:33 07/31/2018 15:49:44 Cervical lymphadenopathy 394128157 R59.0 Had a cough since 02/2018, on [...] second ENT opinion. Upper resp iratory infection 70513507 J06.9 Strept and Flu negative. Exam unremarkab le. Conservati ve management . [id number] MD Lalo Chambers 14 OB [address] [place] [address] 08/29/2018 11:23:12 08/30/2018 09:21:21 Gynecologic examination 28092398 Z01.419 CBE and pelvic exam performedP t is on her menstrual cycle, will RTC for pap smear Venereal d isease screening 488287647 Z11.3 Anemia 117354129 D64.9 Hemorrhoids 21108626 K64 .9 [id number] MD Lalo HURTADO [address] IM [address] [place] [address] 09/05/2018 12:08:49 09/06/2018 10:44:23 Acute sinusitis 79527248 J01.90 4 days, worsening coughs, chest congestion . Exam sinusitis. Already on antihistam althea, PPI, Augmentin with ENT. Try home Flonase, add mucinex. Mean corpu scular volume below reference range 095640365 R71.8 MCV still low with Application Technical Designer. Heavy periods on paraguard with manager solution , still heavy. FeS - taking two tab now. Inc to three - RTC 2mo for ferritin check. [id number] MD Lalo HURTADO [address] IM [address] [place] [address] 11/13/2018 10:37:12 11/27/2018 11:36:00 Cervical lymphadenopathy 327306362 R59.0 06/2018: Had a cough since 02/2018, [...] done biopsy - result benign. Chronic gastritis 068212 9 K29.50 Followed by GI.Chronic gastritic, H pylori infection - pt was treated. Per pt, her esophagus was also dilated. Hemorrhoids 06317804 K64 .9 Followed by Gen sx - candidate for hemorrhoid ectomy. History of Helicobacter pylori infection 1140163583 7093510 Z86.19 Followed by GI - treated [id number] MD Lalo HURTADO 14 IM [address] [facility] [address] [place] [address] 02/13/2019 10:52:03 02/14/2019 08:35:16 Dizziness 087393681 R42 Thyroid was low with Application Technical Designer recently - pt will be rechecked by [...] ID Guarantor Name 09/05/2018 1 [place] Yessica Young [id number] Yessica Mo 01/08/2019 1 [facility] (MEDICAID HMO) [facility] Yessica Young [id number] Yessica Mo 03/12/2019 2 [place] Yessica Young [id number] Yessica Mo 11/30/2020 1 [place] [id number] Luis Antonio Mo [id number] Yessica Mo 01/19/2015 1 [place] Yessica Young [id number] Yessica Mo 11/03/2015 1 [facility] (MEDICAID HMO) [id number] Yessica Young [id number] Yessica Mo 06/19/2018 1 *SELF PAY* Me kartik Mo 01/08/2019 SLIDING FEE SCHEDULE - DISCOUNT Yessica Mo Notes Date Note Type Note Provider Name [...] LN - pt wants a second opinion Lucero moreno, [place] - [facility] 07/31/2018 15:32:25 08/29/2018 text/html Annual GYNReport [...] PMDD Ricardo Ramirez MD Attn: Accounting,[address] [place], [address], [facility] 08/29/2018 16:15:04 09/05/2018 text/html 23yo female is h ere for coughs. Coughs Congested chest 4 days of increase Wheeze Sore throat No fever, chills, muscle ache Saw ENT - on Tessalon perles, Augmentin for 1mo, Probiotic, Omeprazole She is on Minerva and Benadryl Lucero morenoDIONNE SIJazmyn 09/05/2018 12:50:10 11/13/2018 text/html 23yo female is [...] Gen sx Was planning for hemorrhoidectomy Lucero morenoDIONNE SI 11/27/2018 00:24:29 02/13/2019 text/html 24yo female is h ere for dizziness. 1.5moIUD removed 01/2019. Not helpful with heavy period and pt planning for . 7 days - heavy first 2-3 days, 1 pad per hour. Taking FeS 325mg TID at least since 09/2018 was with positional change, now even with standing / at rest Not a/w with meals Denies room spinning. Lucero VacaDIONNE meneses SIJazmyn 02/13/2019 11:29:52 OBGyn Episode Ob Episode Information Episode Created Date Number of Fetuses Patient Bloodtype Patient rh Status Prepregnancy Weight lbs Domestic Partner Domestic Partner Phone Father Name Drill Grinder Status 05/06/20 14 1 A Positive Luis Antonio Mo CLOSED Fetus Data First Name Last Name Admitted to NICU Weight (g) Sex Living Outcome Pediatric Complications Fetus ID Race Codes Race Delivery Type CHASITY ESCAMILLA false 4309.12 4 F Full Term 5386 2106-3 White Vaginal Problems Problem Notes Problem Name Start Date End Date Resolution Snomed Code Not e Infective vaginitis 488328666 Maternal care for diminished movements 190887646 Darren Calculation Initial Darren Date Initial Exam [...] Type Weight in lbs Pre/Post Dialysis Refused 203.404777040209 BP Diastolic BP Location Tested BP Systolic BP Type 64 L arm 118 sitting Fetus Heart Rate Present Fetus Movement Comments Flowsheet Date 05/22/2014 Mckinney Score Blood Edema Fundus Height Fundus Units Glucose Ketones Leukocytes Nitrite Labor Signs Protein Cervic Dilation Cervic Effacement Cervic Station neg none none negative neg Type Weight in lbs Pre/Post Dialysis Refused 198.084157123961 BP Diastolic BP Location Tested BP Systolic [...] Type Weight in lbs Pre/Post Dialysis Refused 164.14199979404 BP Diastolic BP Location Tested BP Systolic [...] Type Weight in lbs Pre/Post Dialysis Refused 201.590883349861 BP Diastolic BP Location Tested BP Systolic [...] Type Weight in lbs Pre/Post Dialysis Refused 203.64905376674 BP Diastolic BP Location Tested BP Systolic BP Type 68 128 Fetus Heart Rate Present A 142 Present Fetus Movement A Yes Comments 28 weeks today Flowsheet Date 08/26/2014 Mckinney Score Blood Edema Fundus Height Fundus Units Glucose Ketones Leukocytes Nitrite Labor Signs Protein Cervic Dilation Cervic Effacement Cervic Station 26 cm none Type Weight in lbs Pre/Post Dialysis Refused 203.51215419646 BP Diastolic BP Location Tested BP Systolic BP Type 74 L arm 122 sitting Fetus Heart Rate Present A 146 Present Fetus Movement A Yes Comments Flowsheet Date 09/09/2014 Mckinney Score Blood Edema Fundus Height Fundus Units Glucose Ketones Leukocytes Nitrite Labor Signs Protein Cervic Dilation Cervic Effacement Cervic Station 30 cm none Type Weight in lbs Pre/Post Dialysis Refused 206.692152883815 BP Diastolic BP Location Tested BP Systolic BP Type 60 L arm 120 sitting Fetus Heart Rate Present A 154 Present Fetus Movement A Yes Comments Flowsheet Date 09/23/2014 Mckinney Score Blood Edema Fundus Height Fundus Units Glucose Ketones Leukocytes Nitrite Labor Signs Protein Cervic Dilation Cervic Effacement Cervic Station 32 cm none Type Weight in lbs Pre/Post Dialysis Refused 205.238518734350 BP Diastolic BP Location Tested BP Systolic BP Type 68 110 Fetus Heart Rate Present A 155 Fetus Movement A Yes Comments Flowsheet Date 10/07/2014 Mckinney Score Blood Edema Fundus Height Fundus Units Glucose Ketones Leukocytes Nitrite Labor Signs Protein Cervic Dilation Cervic Effacement Cervic Station none Type Weight in lbs Pre/Post Dialysis Refused 208.250574686963 BP Diastolic BP Location Tested BP Systolic BP Type 78 110 sitting Fetus Heart Rate Present A 154 Fetus Movement A Yes Comments growth scan ordered Flowsheet Date 10/21/2014 Mckinney Score Blood Edema Fundus Height Fundus Units Glucose Ketones Leukocytes Nitrite Labor Signs Protein Cervic Dilation Cervic Effacement Cervic Station 37 cm none Type Weight in lbs Pre/Post Dialysis Refused 213.084670153932 BP Diastolic BP Location Tested BP Systolic BP Type 72 118 sitting Fetus Heart Rate Present A 140 Present Fetus Movement A Yes Comments gbs today. Flowsheet Date 11/04/2014 Mckinney Score Blood Edema Fundus Height Fundus Units Glucose Ketones Leukocytes Nitrite Labor Signs Protein Cervic Dilation Cervic Effacement Cervic Station 37 cm none Type Weight in lbs Pre/Post Dialysis Refused 216.490967005970 BP Diastolic BP Location Tested BP Systolic [...] Type Weight in lbs Pre/Post Dialysis Refused 217.574510510303 BP Diastolic BP Location Tested BP Systolic [...] Type Weight in lbs Pre/Post Dialysis Refused 221.138823469882 BP Diastolic BP Location Tested BP Systolic [...] Type Weight in lbs Pre/Post Dialysis Refused 223.237914404903 BP Diastolic BP Location Tested BP Systolic [...] At Estimated Date of Delivery false Thalassemia (Kuwaiti, Japanese, Mediterranean, Or Background): MCV < 80 false Neural Tube Defect (Meningom yelocele, Spina Bifida, Or Anencephaly) false Congenital Heart Defect false Down Syndrome false Curt-Sachs (eg, Tenriism, Cajun , Armenian-Sao Tomean) false Yung Disease false Sickle Cell Disease Or Trait () false Hemophilia Or Other Blood Disorders false Muscular Dystrophy false Cystic Fibrosis false Mathews's Chorea false Mental Retardation/Autism false Other Inherited [...] Domestic Partner Domestic Partner Phone Father Name Drill Grinder Status 06/17/19 15 1 CLOSED Fetus Data First Name Last Name Admitted to NICU Weight (g) Sex Living Outcome Pediatric Complications Fetus ID Race Codes Race Delivery Type 3515.33 8 F Full Term [address] Vaginal Darren Calculation Initial Darren Date Initial [...]
[2024-11-09 00:50] LABS: Hematocrit 30.2 % (37.0-47.0); Hemoglobin 10.1 g/dL (12.0-15.0); Immature Granulocyte Percent A 0.7 % (0-0.5); Lymphocytes Absolute Auto 1.85 K/mm3 (0.9-3.2); Mean Corpuscular HGB Conc 33.4 g/dl (32-36); Mean Corpuscular Hemoglobin 28.7 pg (26-34); Mean Corpuscular Volume 85.8 fl (80-100); Nucleated Red Blood Cells Absolute Auto 0.000 K/mm3 (0.0-0.012); Nucleated Red Blood Cells Perc 0.0 % (0.0-0.2); Platelet Count Result 262 k/mm3 (150-375); Red Blood Count 3.52 M/mm3 (4.2-5.4); White Blood Count 13.5 K/mm3 (4.5-10.0)
[2024-11-09 00:57] LABS: Add Urine Microscopic? NO; Appearance Urine Clear (Clear); Glucose Urine UA Negative (Negative); Leukocyte Esterase Ur Negative LEU/UL (Negative); Nitrate Urine Negative (Negative); Non Pathogenic Casts 0-2; Specific Grav Ur 1.007 (1.001-1.035)
[2024-11-09 00:58] LABS: Alanine Aminotransferase 14 U/L (6-35); Albumin Level 3.2 g/dL (3.5-5.1); Alkaline Phosphatase 107 U/L (38-126); Anion Gap 5 mmol/L (4-12); Aspartate Amino Transferase 23 U/L (14-36); Bilirubin,Total 0.3 mg/dL (0.2-1.3); Blood Urea Nitrogen 6 mg/dL (7-17); Calcium 9.2 mg/dL (8.4-10.2); Carbon Dioxide 21 mmol/L (22-30); Chloride 108 mmol/L (98-107); Estimated Glomerular Filt Rate > 60; Glucose 99 mg/dL (65-110); Potassium 3.9 mmol/L (3.4-5.0); Sodium 134 mmol/L (137-145); Total Protein 6.3 g/dL (6.3-8.2); Uric Acid 4.6 mg/dL (2.5-7.5)
[2024-11-09 00:59] LABS: Total Protein Urine Random 11 mg/dL; Ur Ttl Prot Creatinine Ratio 0.29 mg/mg (0-0.20)
--- NOTE | 2024-11-09 01:54 | PC.NURSE ---
Call placed to Dr. Moser, discussed pt c/o swelling for 3 days, headache, lightheadness, dizziness, vision changes, FHRs, Ctx, Vitals, Labs. Pt requesting medication for headache. Order for Reglan PO 10 mg x1 and when pt gets home have her take benadryl. ORder to discharge pt home.
[2024-11-09] MEDS: METOCLOPRAMIDE HCL 10 MG TABLET PO (02:02)
--- NOTE | 2024-11-09 02:05 | PC.NURSE ---
Pt discharged home undelivered in stable condition per order from Dr. Moser. Discharge instructions explained to pt, pt stated understanding, all questions and concerns answered. Pt ambulated out of department with all belongings.
== END 2024-11-09 02:05 | disposition home or self-care (01) ==
LOC: ANHOBOP 00:37 → ANHLDR 00:39
PROVIDERS: Obstetrics & Gynecology; Visit Provider Advanced Practice Midwife
DX: O13.9 Gestational [pregnancy-induced] hypertension without significant proteinuria, unspecified trimester (principal); Z3A.00 Weeks of gestation of pregnancy not specified
CPT/HCPCS: 36415; 59025; 80053; 81003; 82570; 84156; 84550; 85025; 99199; A9270

== ENCOUNTER 2024-11-11 21:19 | Inpatient (IN) | payer OTHER, SELFPAY ==
[2024-11-11] VITALS (22 sets, daily range): BP systolic 125–140; BP diastolic 82–92; PULSE 104–117; TEMP 37.4; O2SAT 98–100; BMI 41.8
--- OUTSIDE RECORDS SUMMARY | 2024-11-11 22:28 | XMS_ITS | Encounter Summary ---
Author Organization [facility] Address [address] [place] [address] Phone Care Team Providers Care Contract Project Manager Name Role Phone Manda Singh MD Unavailable [phone] Robby Torres Primary Care Provider [phone] Scooter White DO Primary Care Provider Malik Cates MD Unavailable Ulices Marino MD Unavailable Yon Gutierrez MD Primary Care Provider Georgina Fontenot APRN, [facility] Unavailable [phone] Encounter Details Date Type Department Care Team (Late st Contact Info) Description 04/09/2020 Telephone [facility] [address] [address] [address] Saud Dalton MD [address] [place] [phone] Social History Tobacco Use Types Packs/Day [...] COVID-19? No / Unsure 03/20/2020 6:06 AM ORGAN PIPE FINISHER documented as of this encounter Miscellaneous Notes * Telephone Encounter - Mahnaz Alaniz - 04/09/2020 2:50 PM CST Patient no showed her appointment, left voice message to call the office to reschedule. Sent out a no show letter. N PIPE FINISHER documented in this encounter Plan of Treatment Not on file documented as of this encounter Visit Diagnoses Not on filedocumented in this encounter Additional Health Concerns Assessment Noted Time PHQ-9 Depression Total Score: 0 02/11/20 20 12:57 PM CDT documented as of this encounter Care Teams Contract Project Manager Relationship Specialty Start Date End Date Robby Torres [address] [place] [address] PCP - General Family Medicine 02/11/20 03/16/21 Scooter White DO [address] [place] [address] [place] [address] PCP - General Internal Medicine 03/17/21 06/22/23 Yon Gutierrez MD [address] [place] [address] [address] PCP - General Family Medicine 06/23/23 Manda Singh MD Obstetrics & Gynecology 02/11/20 Malik Cates MD #[address] [address] Consulting Physician Endocrinology 12/13/21 Ulices Marino MD #[address] [address] Consulting Physician Colon and Rectal Surgery 07/06/22 Georgina Fontenot APRN, SALES PRODUCT SPECIALIST [address] [place] [address] Nurse Practitioner Advanced Practice Nurse 09/25/24 documented as of this encounter
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
--- OUTSIDE RECORDS SUMMARY | 2024-11-11 22:28 | XMS_ITS | Encounter Summary ---
Author Organization [facility] Address [address] [place] [address] Phone Care Team Providers Care Principal Cyber Engineer Name Role Phone Manda Singh MD Unavailable [phone] Scooter White DO Primary Care Provider Malik Cates MD Unavailable Ulices Marino MD Unavailable Yon Gutierrez MD Primary Care Provider Georgina Fontenot APRN, BLADE WORKER Unavailable [phone] Encounter Details Date Type Department Care Team (Late st Contact Info) Description 07/26/2021 [facility] [address] [place] [address] Edita Garza, TRUNG, SCREEN MACHINE OPERATOR [address] [place] [address] Encounter for pre-employment examination Social [...] >=1.1 AI 07/26/2021 10:00 PM CDT [facility] Blood No Phlebotomy Charged / Unknown 07/26/2021 9:00 AM CDT 07/26/2021 2:15 PM CDT Narrative [facility] - 07/26/2021 10:00 PM CDT <= 0.8 Negative. No detectable VZV IgG antibody. 0.9 - 1.0 Equivocal >=1.1 Positive Antibody testing was performed by multiplex flow immunoassay on the BioPlex platform. Edita L [employer] INSIDE SALES ENGINEER, SCREEN MACHINE OPERATOR IMMUNOLOGY ORDERABL ES Final Result Performing Organization Address [facility] de Phone Number [facility] [address] [place] [address], [place] * (ABNORMAL) RUBEOLA (MEASLES) IGG (07/26/2021 9:00 AM CDT) MEASLES AB IGG 0.7(L) >=1.1 AI 07/26/2021 10:00 PM CDT [facility] Blood No Phlebotomy Charged / Unknown 07/26/2021 9:00 AM CDT 07/26/2021 2:15 PM CDT Narrative [facility] - 07/26/2021 10:00 PM CDT <= 0.8 Negative. No detectable Measles IgG antibody. 0.9 - 1.0 Equivocal >=1.1 Positive Antibody testing was performed by multiplex flow immunoassay on the BioPlex platform. Ed[employer] INSIDE SALES ENGINEER, SCREEN MACHINE OPERATOR IMMUNOLOGY ORDERABL ES Final Result Performing Organization Address [facility] de Phone Number [facility] [address] [place] [address], [place] * RUBELLA IMMUNITY IGG (07/26/2021 9:00 AM CDT) RUBELLA IMMUNITY Immune Immune, Invalid 07/26/2021 10:00 PM CDT [facility] Blood No Phlebotomy Charged / Unknown 07/26/2021 9:00 AM CDT 07/26/2021 2:15 PM CDT Narrative [facility] - 07/26/2021 10:00 PM CDT Antibody testing was performed by multiplex flow immunoassay on the BioPlex platform. us Edita Garza INSIDE SALES ENGINEER, SCREEN MACHINE OPERATOR CHEMISTRY ORDERABLE S Final Result Performing Organization Address [facility] Co de Phone Number [facility] [address] [place] [address], [place] * MUMPS IGG (07/26/2021 9:00 AM CDT) Mumps Ab IgG 1.2 >=1.1 AI 07/26/2021 10:00 PM CDT [facility] Blood No Phlebotomy Charged / Unknown 07/26/2021 9:00 AM CDT 07/26/2021 2:15 PM CDT Narrative [facility] - 07/26/2021 10:00 PM CDT <= 0.8 Negative. No detectable Mumps IgG antibody. 0.9 - 1.0 Equivocal >=1.1 Positive Antibody testing was performed by multiplex flow immunoassay on the BioPlex platform. us Edita Garza INSIDE SALES ENGINEER, SCREEN MACHINE OPERATOR IMMUNOLOGY ORDERABL ES Final Result Performing Organization Address [facility] Co de Phone Number [facility] [address] [place] [address], [place] * QUANTIFERON-TB GOLD PLUS (07/26/2021 9:00 AM CDT) NIL CONTROL 0.04 <8.01 IU/mL 07/28/2021 1:01 PM CDT [facility] TB ANTIGEN 1 0.00 <0.35 IU/mL 07/28/2021 1:01 PM CDT [facility] TB ANTIGEN 2 0.00 <0.35 IU/mL 07/28/2021 1:01 PM CDT [facility] MITOGEN CONTROL 9.64 >0.49 IU/mL 07/29/19 1:01 PM CDT [facility] INTEPRETATION TB NEGATIVE NEGATIVE, NEGATIVE (TB antigen response less than 25% of internal negative control value) 07/28/2021 1:01 PM CDT [facility] Comment:No immune response t o Mycobacterium tuberculosis antigens was noted. M. tuberculosis infection unlikely. Blood No Phlebotomy Charged / Unknown 07/26/2021 9:00 AM CDT 07/26/2021 2:15 PM CDT Narrative [facility] - 07/28/2021 1:01 PM CDT [...] immunocompromised individuals. https://www.cdc.gov/tb/publications/guidelines/testing.htm us Edita L [employer] INSIDE SALES ENGINEER, SCREEN MACHINE OPERATOR IMMUNOLOGY ORDERABL ES Final Result Performing Organization Address [facility] Co de Phone Number [facility] [address] [place] [address], [place] * HEPATITIS B SURFACE ANTIBODY (HBSAB) (07/26/2021 9:00 AM CDT) HEPATITIS B SURFACE ANTIBODY 8.33 mIU/mL [facility] ARCH [id number] 07/27/2021 12:02 AM CDT [facility] Comment: Grayzone Range: >=8.00 to <=12.00 The immune status of the individual should be further assessed considering other factors, such as clinical status, follow-up testing, associated risk factors and the use of additional diagnostic information. Blood No Phlebotomy Charged / Unknown 07/26/2021 9:00 AM CDT 07/26/2021 2:15 PM CDT us Edita Garza INSIDE SALES ENGINEER, SCREEN MACHINE OPERATOR CHEMISTRY ORDERABLE S Final Result Performing Organization Address [facility] Co de Phone Number [facility] [address] [place] [address], [place] documented in this encounter Visit Diagnoses Diagnosis Encounter for pre-employment examination Health examination of defined subpopulation documented in this encounter Additional Health Concerns Assessment Noted Time PHQ-9 Depression Total Score: 0 02/11/20 20 12:57 PM CDT documented as of this encounter Care Teams Principal Cyber Engineer Relationship Specialty Start Date End Date Scooter White DO [address] [place] [address] [place] [address] PCP - General Internal Medicine 03/17/21 06/22/23 Yon Gtuierrez MD [address] [place] [address] [address] PCP - General Family Medicine 06/23/23 Manda Singh MD Obstetrics & Gynecology 02/11/20 Malik Cates MD #[address] [address] Consulting Physician Endocrinology 12/13/21 Ulices Marino MD #[address] [address] Consulting Physician Colon and Rectal Surgery 07/06/22 Georgina Fontenot APRN, BLADE WORKER [address] [place] [address] Nurse Practitioner Advanced Practice Nurse 09/25/24 documented as of this encounter
--- OUTSIDE RECORDS SUMMARY | 2024-11-11 22:28 | XMS_ITS | Continuity of Care Document ---
Author Organization [facility] Address [address] [place] [address] [place] [address] Phone Care Team Providers Care Computer Instructor Name Role Phone Robby Torres MD [...] Diagnoses Date Provider Providers Copied on Encounter [facility], [address] [facility] [place], [place], [id number], [place] tel:[phone] [facility] No Information 1 Brian Bustamante. [address], [address], [place], [place], [address] , [place]. tel:[phone] [facility], [address], [place], [place], [address], [place] tel:[phone] [facility] No Information 0 Brian Bustamante. [address], [address], [place], [place], [address] , [place]. tel:[phone] OFFICE/OUTPA TIENT VISIT, [facility], [address], [place], [place], [address], [place] tel:[phone] [facility] anxiety1 (chief complaint) Generalized Anxiety DisorderHypothyroid ism 0 Brian Bustamante. [address], [address], [place], [place], [address] , [place]. tel:[phone] Referring Provider: Robby Torres [address], [place], [place], [address]. tel:[phone] OFFICE/OUTPA TIENT VISIT, [facility], [address], [place], [place], [address], [place] tel:[phone] [facility] anxiety1 (chief complaint) Generalized Anxiety DisorderGoiter 0 Brian Bustamante. [address], [place], [place], [address] , [place]. tel:[phone] Referring Provider: Robby Torres [address], [place], [place], [address]. tel:[phone] OFFICE/OUTPA TIENT VISIT, [facility], [address], [place], [place], [address], [place] tel:[phone] [facility] thyroid nodule1 (chief complaint) anxiety1 (chief complaint) GoiterGeneralized Anxiety Disorder 0 Brian Menendez [address], [address], [place], [place], [address] , [place]. tel:[phone] Referring Provider: Gissel Banks [address], [place], [place], [address]. tel:[phone] OFFICE/OUTPA TIENT VISIT, [facility], [address], [place], [place], [address], [place] tel:[phone] [facility] anxiety1 (chief complaint) iron1 (chief complaint) thyroid1 (chief complaint) Disorder of iron metabolism, unspecifiedGoiterGe neralized Anxiety Disorder Lonnie-0 0 Brian Bustamante. [address], [address], [place], [place], [address] , [place]. [phone] Referring Provider: Gissel Banks [address], [place], [place], [address]. tel:[phone] OFFICE/OUTPA TIENT VISIT, [facility], [address], [place], [place], [address], [place] tel:[phone] [facility] ankle pain1 (chief complaint) fatigue1 (chief complaint) thyroid1 (chief complaint) anemia1 (chief complaint) Pain in right ankleFatigueAnemiaG oiter 0 Brian Bustamante. [address], [address], [place], [place], [address] , [place]. tel:[phone] Referring Provider: Gissel Banks [address], [place], [place], [address]. tel:[phone] OFFICE/OUTPA TIENT VISIT, [facility], [address], [place], [place], [address], [place] tel:[phone] [facility] rash1 (chief complaint) Allergic contact dermatitis due to plants, except food Aug- 0 Brian Bustamante. [address], [address], [place], [place], [address] , [place]. [phone] Referring Provider: Gissel Banks [address], [place], [place], [address]. tel:[phone] OFFICE/OUTPA TIENT VISIT, [facility], [address], [place], [place], [address], tel:[phone] [facility] thyroid1 (chief complaint) ferritin1 (chief complaint) IgA (chief complaint) fatigue1 (chief complaint) GoiterDisorder of iron metabolism, unspecifiedVitamin D deficiency, unspecifiedRaised level of immunoglobulinAnemi aH. pylori as the cause of diseases classified elsewhereFatigue 0 Brian Bustamante. [address] [facility] [place], [address] , . tel:[phone] Referring Provider: Gissel Banks [place], [place], [address]. tel:[phone] PREV VISIT, NEW, AGE 18-39 [facility], [address] [place] [address] [employer] [place], [place], [address], tel:[phone] [facility] PHysical (chief complaint) Encntr for general adult medical exam w/o abnormal findings 0 Brian Bustamante. [address], [facility] [address], [place], [place], [address] , [place]. tel:[phone] Referring Provider: Robby Torres [address] [place] [address], [id number]. tel:[phone] Family History Family Member Type Diagnosis Age [...] Referral Referred To: Jean Carlos BolañosJoe silva [address] [facility]
[address] [place], [place] [id number] Ordered: Referrals: Allopathic & Osteopathic Physicians : [...] any dysphagia ankle pain1 Pt was at [place] [employer] and she stepped on gravel [...] or swelling . 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
--- OUTSIDE RECORDS SUMMARY | 2024-11-11 22:28 | XMS_ITS | Continuity of Care Document ---
Author Organization [facility] Address [address] [place] [address] [address] [place] [address] Phone Care Team Providers Care Animal Humane Agent Supervisor Name Role Phone Carol OD OD, Georgina [...] - Active Procedures Procedure Date OFFICE/OUTPATIENT VISIT, [facility] Comp cont lens eval No Charge Visit N/C Glasses Check Advance Directives Directive Yes / No Effective Date File Name No Information Encounters Encounter Description Practice Location Reason(s) For Visit Diagnoses Date Provider Providers Copied on Encounter [facility], [address] [place] [address] [address], [place], [place], [id number], tel:[phone] [facility]SULT [facility]OPE[facility] No Information 3 Carol OD Georgina. [address] [facility], [address], [place], [place], [address], [place]. tel:[phone] Referring Provider: Georgina Medina OD, [address] [facility] [address], [place], [address] . tel:[phone] OFFICE/OUTPA TIENT VISIT, [facility], [address] [place] [address], [id number], tel:[phone] O[facility] CONSULT [facility]OPEZ blurry vision (chief complaint) dry eye (chief complaint) Krystin's thyroiditisMyo roger, bilateralTear film insufficiency of bilateral lacrimal glandsOther vitreous opacities, bilateralCorne al neovasculariza tion of both eyes 2 Derheimer OD Georgina. [address], [address] [place] [address], [id number], [place]. tel:[phone] Referring Provider: Scooter White, [address], [place], [address]. tel:[phone] [facility], [address] [place] [address], [id number], tel:[phone] [facility] KENTRELL LOPEZ No Information 6 Derheimer OD Georgina. [address], [address] [place] [address], [id number], [place]. tel:[phone] Referring Provider: Georgina Medina OD, [address], [place], [address] . tel:[phone] [facility], [address] [place] [address], [id number], tel:[phone] OPH CONSULT KENTRELL LOPEZ blurry vision (chief complaint) Myopia, bilateral 6 Derheimer OD Georgina. [address], [place], [place], [address], [place]. tel:[phone] Referring Provider: Georgina Medina OD, [address], [place], [address] . tel:[phone] [facility], [address] [place] [address], [id number], tel:[phone] OPH CONSULT [facility]OPE[facility] No Information 1 Beth Cohenl. [address], [address], [place], [place], [address], [place]. tel:[phone] Family History Family Member Type Diagnosis Age [...]
--- OUTSIDE RECORDS SUMMARY | 2024-11-11 22:28 | XMS_ITS | Clinical Summary ---
Author Organization [facility] Address [address] [place] [address] Care Team Providers Care Pipe Inspector Name Role Phone Scooter White DO Primary Care Provider [phone] Source Comments [facility],non-owned Affiliates and Associated Physician Practices is amultiple site organization consisting of ambulatory clinics and hospital sitesin [place], [place], [place] and [place]. This disclosure is being madepursuant to the Care Everywhere program and may not contain all information available regarding this patient. Last updated 18.[facility] Allergies Active Allergy Reactions Criticality Noted Date [...] Type Department Care Team Description 10/28/2024 Telephone [facility] [address] [place], [place] [id number] Silvina León Appointment 09/24/2024 1:00 PM CDT - 09/24/2024 11:59 PM CDT Hospital Encounter [facility] [address] [place] [address] Derick Mcclendon MD ZINC PLATE GRAINER Discharge Disposition: Home or Self Care 08/27/2024 12:58 PM CDT - 08/27/2024 11:59 PM CDT Hospital Encounter [facility] [address] [place] [address] Christiano Tristan MD Discharge Disposition: Home or [...] on file Legal Sex Female 1:08 PM QUALITY ASSURANCE MONITOR FINAL Gender Identity Not on file Sexual Orientation [...] (HCC) Dichorionic diamniotic twin in second trimester ([facility]) 28 weeks gestation of ([facility]) Supervision of high risk in second trimester ([facility]) Obesity affecting in second trimester, unspecified obesity type ([facility]) Encounter for follow-up ultrasound of anatomy ([facility]) Encounter for ultrasound to assess growth ([facility]) SONOGRAM - COMPLETE Routine 08/27/2024 1 2:52 PM CDT Dichorionic diamniotic twin in second trimester ([facility]) History of pre-eclampsia in prior , currently ([facility]) 24 weeks gestation of ([facility]) Supervision of high risk in second trimester ([facility]) from Last 3 Months Results * SONOGRAM - COMPLETE (09/24/2024 1:09 PM CDT) Only the most recent of2 resultswithin the time period is included. Linked Results Indication ======== DA/DC Twins Incomplete Anatomy Screen x2 History of Preeclampsia, Obesity in , Class II History ====== OB History 4. Para 3 [id number] 1. live 2011. Gest. age 41 w [...] 2 lb 14 oz EFW by Hadlock ([id number]) EFW discordance 4.6 % appropriate Fetus B: Biometry BPD 69.2 mm 27w 6d 42% Hadlock HC 260.6 mm 28w 2d 39% Hadlock AC 252.3 mm 29w 3d 88% Hadlock Femur 51.1 mm 27w 3d 25% Hadlock Humerus 48.6 mm 28w 4d 68% Robinson HC / AC 1.03 Weight Calculation: EFW 1,242 g 69% Hadlock EFW (lb,oz) 2 lb 12 oz EFW by Hadlock (TVP-VQ-ZA-FL) EFW discordance 4.6 % appropriate Fetus A: [...] Thorax RVOT view. LVOT view. 3-vessel view. 1-wrjimb-tbxmqzp view. Situs. Bicaval view. Ductal arch view. [...] view. RVOT view. LVOT view. 3-vessel view. 1-yqltvj-dbdhvjd view. Situs. Aortic arch view. Bicaval view. [...] and begin weekly testing Coding ====== Procedures 34930: US Preg Uterus Follow Up. x2 [employer] PACS Anatomical Region Laterality Modality Other 09/24/2024 1:09 PM CDT R Bert Garcia MD [facility] ORDERABLES Edited Result - Final from Last 3 Months Insurance HE[employer] CARE Member Subscriber Plan / Payer (Ef fective 2021-Present) Name:Yessica Mo Relation to Subscriber:Spouse Name:SOLO MO Date of :1987 (Home) Address: [address] [place] [address] Payer ID:[id number] (NAIC) Type:PPO Address: [place] [id number] [place] [address] Care Teams Pipe Inspector Relationship Specialty Start Date End Date Scooter White DO PCP - General 03/16/22
--- OUTSIDE RECORDS SUMMARY | 2024-11-11 22:28 | XMS_ITS | Clinical Summary ---
Author Organization [facility] Address [address] [facility] 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 Height 165.1 cm (5' 5) 04/19/2023 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 Body Mass Index 35.78 04/19/2023 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 Plan of Treatment Health Maintenance Due Date Last Done Comments Hepatitis C Virus (HCV) Screening 1993 Human Papillomavirus (HPV) Immunization (1 - 3-dose series) 01/07/2008 Pap Smear 2014 Hepatitis B Immunization (2 of 3 - 19+ 3-dose series) 11/11/2019 10/14/2019 Cervical Cancer Screening (CCS) 2023 HPV/Cotest 2023 SARS-COV-2 Immunization (3 - 2023- season) 2024 08/06/2021, 07/16/2021 Influenza Immunization (#1) 01/06/202501/06, 01/24/2020, 01/24/2020 Td Immunization Every 10 Yea [...] this topic Medical Devices Implanted Type Area Sheet Metal Production Worker Device Identifier Shelf Expiration Date Model / Serial / Lot Tube Ventilation 5mm Carey Triune - [id number] Implanted:Qty: 1 on 11/05/2018 by Jordon Deng MD at [facility] IMPLANT Left: Ear [employer] 04/06/2020 510-122 / 510-122 / [id number] Description:Ear tubes came f rom the same package Tube Ventilation 5mm Carey Triune - [id number] Implanted:Qty: 1 on 11/05/2018 by Jordon Deng MD at [facility] IMPLANT Right: Ear [employer] 04/06/2020 510-122 / 510-122 / [id number] Description:Ear tubes came f rom the same package Insurance * Guarantor: [facility] Account Type Relation to Patient Date of Phone Billing Address Institutional Other [address] [place] [address] Care Teams Sleeve Separator Relationship Specialty Start Date End Date Yon Gutierrez MD [address] [address] PCP - General Family Medicine 06/23/23 Manda Singh MD Obstetrics & Gynecology 02/11/20 Malik Cates MD [address] [address] Consulting Physician Endocrinology 12/13/21 Ulices Marino MD #[address] [address] Consulting Physician Colon and Rectal Surgery 07/06/22 Georgina Fontenot, COMMUNITY DEVELOPMENT WORKER, SCRAPER HAND [address] [place] [address] Nurse Practitioner Advanced Practice Nurse 09/25/24
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
--- OUTSIDE RECORDS SUMMARY | 2024-11-11 22:28 | XMS_ITS | Encounter Summary ---
Author Organization [facility] Address [address] [place] [address] Phone Care Team Providers Care Ticket Speculator Name Role Phone Manda Singh MD Unavailable [phone] Robby Torres Primary Care Provider [phone] Scooter White DO Primary Care Provider Malik Cates MD Unavailable Ulices Marino MD Unavailable Yon Gutierrez MD Primary Care Provider Georgina Fontenot APRN, [facility] Unavailable [phone] Encounter Details Date Type Department Care Team (Late st Contact Info) Description 03/09/2020 [facility] [address] [place] [address] Walter Blake MD [address] [place] [address] Preop testing (Primary Dx) Social History Tobacco [...] COVID-19? Unable to assess 03/10/2020 1:32 PM MANAGER FOOD BEVERAGE documented as of this encounter Plan of Treatment Not on file documented as of this encounter Visit Diagnoses Diagnosis Preop testing- Primary Preoperative examination, unspecified documented in this encounter Additional Health Concerns Infection Onset Date Last Indicated Resolved Time COVID - 19 03/10/2020 03/10/2020 03/16/2020 11:4 0 AM MANAGER FOOD BEVERAGE Assessment Noted Time PHQ-9 Depression Total Score: 0 02/11/20 20 12:57 PM CDT documented as of this encounter Care Teams Ticket Speculator Relationship Specialty Start Date End Date Robby Torres [address] [facility] [place] [address] PCP - General Family Medicine 02/11/20 03/16/21 Scooter White DO [facility] [facility] [place] [address] PCP - General Internal Medicine 03/17/21 06/22/23 Yon Gutierrez MD [address] [facility] [address] [place] [address] PCP - General Family Medicine 06/23/23 Manda Singh MD Obstetrics & Gynecology 02/11/20 Malik Cates MD [address]2 [facility] [address] [place] [address] Consulting Physician Endocrinology 12/13/21 Ulices Marino MD [address] [address] Consulting Physician Colon and Rectal Surgery 07/06/22 Georgina Fontenot APRN, WHEAT INSPECTOR [address] [place] [address] Nurse Practitioner Advanced Practice Nurse 09/25/24 documented as of this encounter
--- OUTSIDE RECORDS SUMMARY | 2024-11-11 22:28 | XMS_ITS | Encounter Summary ---
Author Organization [facility] Address [address] [place] [address] Care Team Providers Care Multiple Drum Sander Name Role Phone Scooter White DO Primary Care Provider Encounter Details Date Type Department Care Team (Late st Contact Info) Description 11/06/2018 Lab Requisition [facility] Care Pathology Lab [address] [place] [address] Cinid Herrera MD [address] [place] [address] Enlarged lymph nodes Social History Tobacco Use Types Packs/Day Years Used Date Smoking Tobacco: Never Smokeless Tobacco: Never Alcohol Use Standard Drinks/Week Comments No 0 (1 standard drink = 0.6 oz pur e alcohol) Comments No Sex and Gender Information Value Date Recorded Sex Assigned at Not on file Legal Sex Female 1:08 PM SOLAR SALES MANAGER Gender Identity Not on file Sexual [...] AM CDT) Case Report Flow Cytometry Case: [id number] Authorizing Provider: Cindi Herrera MD Collected: 11/05/2018 11:02 AM Pathologist: Alexa Weinberg MD Received: 11/06/2018 02:01 PM Specimen: Cervical Lymph Node , Left 9 5:33 PM T [facility] PATHOLOGY LAB Final Diagnosis Lymph node, left cervical, flow cytometric immunophenotypic analysis: - No evidence of non-Hodgkin lymphoma. - See interpretation. 9 5:33 PM [facility] at 1733 CDT Flow Cytometry [...] the flow cytometry specimen is reviewed for head of quality purposes. In summary, the left cervical lymph node specimen shows no evidence of a non-Hodgkin lymphoma. Correlation with additional clinical information and the concurrent biopsy specimen is required. KR 9 5:33 PM [facility] Flow Cytometry Results Differential Result Comment Flow Cell Count /uL [id number] Total Viability % 86.0 Lymphocytes % 97 Dim CD45 Region % 0 Monocytes % 1 Granulocytes % 1 9 5:33 PM [facility] Reason for test Enlarged lymph nodes 785.6 9 5:33 PM [facility] Client Specimen ID # [id number] 9 5:33 PM [facility] Number of markers 16 were performed. A Flow CD3 A Flow CD10 A Flow CD20 A Flow CD23 A Flow CD2 A Flow CD4 A Flow CD1a A Flow CD5 A Flow CD19 A Flow CD34 A Flow CD45 A Flow CD7 A Flow CD8 A Flow CD30 A Gallant+CD19+ A Lambda+CD19+ 9 5:33 PM [facility] Disclaimer Test performed at [facility], [address] [place], [place], [address]. *The established laboratory minimum viability is 70%. [...] testing. 9 5:33 PM CDT [facility] Embedded Images 9 5:33 PM CD[address] [facility] Pathology/Cytolo gy ENTIRE CERVICAL LYMPH NODE / Unknown 11/05/2018 11:02 AM CDT 11/06/2018 2:01 PM CDT Cindi Herrera MD LAB - PATHOLOGY/CYTOLOGY ORDERA BLE Final Result [facility] [address] [facility] [place] [address], [facility] [phone] documented in this encounter Visit Diagnoses Diagnosis Enlarged lymph nodes Enlargement of lymph nodes documented in this encounter Care Teams Multiple Drum Sander Relationship Specialty Start Date End Date Scooter White DO PCP - General 03/16/22 documented as of this encounter
--- NOTE | 2024-11-11 22:48 | LDADM ---
This patient, Yessica Mo, was admitted to Labor/Delivery/Recovery 102 on 11/11/24 at 21:19. Plans for labor, pain management and were discussed with patient. Patient/family oriented to hospital policies and general routines including ID bracelet, bed and alarms, visiting hours, pain management, procedures, bathroom and other care routines, personal items, smoking policy, room service/diet and guest tray routines, security routines, and visiting hours. Patient/Family are encouraged to report perceived risks to care and to ask questions if they do not understand what they are told or what they should do. See [facility] for further documentation.
[2024-11-11 23:04] LABS: Hematocrit 34.6 % (37.0-47.0); Hemoglobin 11.4 g/dL (12.0-15.0); Immature Granulocyte Percent A 0.7 % (0-0.5); Lymphocytes Absolute Auto 1.86 K/mm3 (0.9-3.2); Mean Corpuscular HGB Conc 32.9 g/dl (32-36); Mean Corpuscular Hemoglobin 28.1 pg (26-34); Mean Corpuscular Volume 85.2 fl (80-100); Nucleated Red Blood Cells Absolute Auto 0.000 K/mm3 (0.0-0.012); Nucleated Red Blood Cells Perc 0.0 % (0.0-0.2); Platelet Count Result 286 k/mm3 (150-375); Red Blood Count 4.06 M/mm3 (4.2-5.4); White Blood Count 11.3 K/mm3 (4.5-10.0)
[2024-11-11 23:18] LABS: Alanine Aminotransferase 14 U/L (6-35); Albumin Level 3.6 g/dL (3.5-5.1); Alkaline Phosphatase 141 U/L (38-126); Anion Gap 7 mmol/L (4-12); Aspartate Amino Transferase 26 U/L (14-36); Bilirubin,Total 0.6 mg/dL (0.2-1.3); Blood Urea Nitrogen 5 mg/dL (7-17); Calcium 8.5 mg/dL (8.4-10.2); Carbon Dioxide 21 mmol/L (22-30); Chloride 106 mmol/L (98-107); Estimated CRCL calculation 192 ml/min; Estimated Glomerular Filt Rate > 60; Glucose 85 mg/dL (65-110); Potassium 3.7 mmol/L (3.4-5.0); Sodium 134 mmol/L (137-145); Total Protein 6.9 g/dL (6.3-8.2); Uric Acid 4.8 mg/dL (2.5-7.5)
[2024-11-11 23:58] LABS: Syphilis IgG/IgM Antibody Non-Reactive (Nonreactive)
[2024-11-12] VITALS (31 sets, daily range): BP systolic 130–138; BP diastolic 81–92; PULSE 79–114; TEMP 36.9–37.3; O2SAT 94–100
--- NOTE | 2024-11-12 07:46 | PM.IMHP ---
H&P: [facility] History of Present Illness Date/Time: 11/12/24 07:46 Chief Complaint: pt admitted for observation for contractions. pt is 34.5 week with di/di twins. overnight contractions slowed and pt was able to rest. currently on procardia 60mg XL daily and 10 mg procardia prn. coplicated by chroic hypertension, diet controlled GDM, migraine. history of LGA in last with a shoulder dystocia. Review of Systems Review of Systems: All systems reviewed & are unremarkable except as noted in HPI and below PMFSH Past Medical History Medical History HTN (hypertension) Hx of hemorrhoids Wears glasses History of adverse reaction to anesthesia GERD (gastroesophageal reflux disease) Acute hemorrhoid Anxiety Hypothyroid Surgical History Surgical History History of ovarian cystectomy H/O tubal ligation History of lumpectomy Hx of cholecystectomy History of appendectomy Family History Family History Father Hypertension Mother Alcoholism Thyroid disorder Grandparent Breast cancer Hypertension Thyroid disorder Lung cancer Social History Social History Smoking status: Never smoker Substance use: never Substance use type: does not use Do You Feel Safe in your Home?: Yes Lack of Transportation: No Lack of Food: Never True Current Housing: I Have Housing Concerned About Future Housing: No Difficulty Paying Gas/Electric Bills: No Difficulty Paying for Meds: No Currently Unemployed: No Education: Associate Degree Difficulty w/ Childcare or Family Care: No Living arrangements: with family Gender identity (if verbalized by the patient): Female Spiritual care concerns: No Meds Home Medications and Allergies Home Medications ?Medication ?Instructions ?Recorded ?Confirmed ?Type pantoprazole 40 mg tablet,delayed mg PO 08/08/24 History release cyclobenzaprine 5 mg tablet mg 10/31/24 History vit 115-iron fum 29 mg 1 tablet PO DAILY 10/31/24 11/11/24 History iron-folic acid 1 mg-dss 25 mg tablet nifedipine 10 mg capsule 10 mg PO Q6H PRN contractions #60 11/03/24 11/11/24 Rx caps nifedipine 60 mg tablet,extended 60 mg PO DAILY 11/11/24 11/11/24 History release 24 hr Allergies Allergy/AdvReac Type Severity Reaction Status Date / Time prednisone Allergy Intermediate Hives Verified 11/11/24 22:01 Vital Signs Vital Signs - 24 hr 11/11/24 21:47 11/11/24 22:00 11/11/24 22:28 Temperature 37.4 C 37.4 C Pulse Rate Blood Pressure Pulse Oximetry 99 11/11/24 22:31 11/11/24 22:33 11/11/24 22:38 Temperature Pulse Rate 114 H Blood Pressure 125/92 H Pulse Oximetry 98 99 11/11/24 22:43 11/11/24 22:48 11/11/24 22:53 Temperature Pulse Rate Blood Pressure Pulse Oximetry 100 100 99 11/11/24 22:58 11/11/24 23:01 11/11/24 23:07 Temperature Pulse Rate 117 H Blood Pressure 136/92 H Pulse Oximetry 99 100 11/11/24 23:12 11/11/24 23:17 11/11/24 23:22 Temperature Pulse Rate Blood Pressure Pulse Oximetry 100 100 99 11/11/24 23:27 11/11/24 23:31 11/11/24 23:32 Temperature Pulse Rate 112 H Blood Pressure 140/82 Pulse Oximetry 100 99 11/11/24 23:37 11/11/24 23:49 11/11/24 23:54 Temperature Pulse Rate Blood Pressure Pulse Oximetry 100 98 98 11/11/24 23:59 11/12/24 00:00 11/12/24 00:01 Temperature 37.3 C Pulse Rate 111 H Blood Pressure 130/88 Pulse Oximetry 98 11/12/24 00:04 11/12/24 00:09 11/12/24 00:13 Temperature Pulse Rate Blood Pressure Pulse Oximetry 99 98 99 11/12/24 00:18 11/12/24 00:23 11/12/24 00:28 Temperature Pulse Rate Blood Pressure Pulse Oximetry 99 98 98 11/12/24 00:31 11/12/24 00:33 11/12/24 00:38 Temperature Pulse Rate 113 H Blood Pressure 133/89 Pulse Oximetry 100 98 11/12/24 03:06 11/12/24 03:11 11/12/24 03:16 Temperature Pulse Rate Blood Pressure Pulse Oximetry 99 99 96 11/12/24 03:21 11/12/24 03:26 11/12/24 03:31 Temperature Pulse Rate Blood Pressure Pulse Oximetry 96 99 98 11/12/24 03:36 11/12/24 03:41 11/12/24 03:46 Temperature Pulse Rate Blood Pressure Pulse Oximetry 98 95 99 11/12/24 03:51 11/12/24 03:56 11/12/24 04:00 Temperature 36.9 C Pulse Rate Blood Pressure Pulse Oximetry 94 98 11/12/24 04:01 11/12/24 04:06 11/12/24 04:11 Temperature Pulse Rate 110 H Blood Pressure 133/92 H Pulse Oximetry 97 98 100 11/12/24 04:16 11/12/24 04:21 11/12/24 06:00 Temperature 37.0 C Pulse Rate Blood Pressure Pulse Oximetry 97 98 11/12/24 07:35 11/12/24 07:37 Temperature 37.1 C Pulse Rate 100 Blood Pressure 138/81 Pulse Oximetry Exam Const: General: cooperative, healthy appearing and comfortable Chest: Chest palpation & inspection: normal inspection of the chest Resp: Effort & Inspection: normal respiratory effort Cardio: Rate: regular rate GI: Other: gravid Back/Spine/Pelvis: Back: no CVA tenderness Neuro: General: patient oriented x3 H&P: Results Labs Labs: Short CBC 11/11/24 Range/Units 22:57 WBC 11.3 H (4.5-10.0) K/mm3 Hgb 11.4 L (12.0-15.0) g/dL Hct 34.6 L (37.0-47.0) % Plt Count 286 (150-375) k/mm3 BMP 11/11/24 22:57 Sodium 134 L Potassium 3.7 Chloride 106 Carbon Dioxide 21 L BUN 5 L Creatinine 0.44 L Glucose 85 Calcium 8.5 Liver Function 11/11/24 Range/Units 22:57 Total Bilirubin 0.6 (0.2-1.3) mg/dL AST 26 (14-36) U/L ALT 14 (6-35) U/L Alkaline Phosphatase 141 H (38-126) U/L Albumin 3.6 (3.5-5.1) g/dL Assessment and Plan Assessment and plan (1) Dichorionic diamniotic twin gestation: Code(s): O30.049 - Twin , dichorionic/diamniotic, unspecified trimester Status: Acute Assessment and Plan: contractions. plan to d/c home, precautions reviewed. FHR category x 2 co-managing with dr. redding (2) Irregular contractions: Code(s): O47.9 - False labor, unspecified Status: Acute
--- NOTE | 2024-11-12 08:01 | P.PNOB_ITS ---
OB - Triage/Final Diagnosis Visit Information Date of evaluation: 11/11/24 Reason for evaluation: threatened labor Comments/Additional reasons for admission: I have assessed the risk for this patient, Yessica Mo, and determined that she would benefit from observation care. Evaluation Laboratory results: Laboratory Tests 11/11/24 11/12/24 11/12/24 22:57 02:49 07:33 WBC 11.3 H RBC 4.06 L Hgb 11.4 L Hct 34.6 L MCV 85.2 MCH 28.1 MCHC 32.9 RDW 12.4 Plt Count 286 MPV 10.3 Immature Gran % (Auto) 0.7 H Neut % (Auto) 74.3 H Lymph % (Auto) 16.5 L [place] % (Auto) 7.4 Eos % (Auto) 0.6 Baso % (Auto) 0.5 Lymph # (Auto) 1.86 [place] # (Auto) 0.8 H Eos # (Auto) 0.1 Baso # (Auto) 0.1 Abs Immat Gran (auto) 0.08 H Absolute Neuts (auto) 8.4 H Absolute Nucleated RBC 0.000 Nucleated RBC % 0.0 Sodium 134 L Potassium 3.7 Chloride 106 Carbon Dioxide 21 L Anion Gap 7 BUN 5 L Creatinine 0.44 L Estim Creat Clear Calc 192 Estimated GFR > 60 Glucose 85 POC Capillary Glucose 83 86 Uric Acid 4.8 Calcium 8.5 Total Bilirubin 0.6 AST 26 ALT 14 Alkaline Phosphatase 141 H Total Protein 6.9 Albumin 3.6 Syphilis IgG/IgM Ab Non-reactive Blood Type A Positive Antibody Screen Negative Vital signs: Vital Signs - 24 hr 11/11/24 21:47 11/11/24 22:00 11/11/24 22:28 Temperature 37.4 C 37.4 C Pulse Rate Blood Pressure Pulse Oximetry 99 11/11/24 22:31 11/11/24 22:33 11/11/24 22:38 Temperature Pulse Rate 114 H Blood Pressure 125/92 H Pulse Oximetry 98 99 11/11/24 22:43 11/11/24 22:48 11/11/24 22:53 Temperature Pulse Rate Blood Pressure Pulse Oximetry 100 100 99 11/11/24 22:58 11/11/24 23:01 11/11/24 23:07 Temperature Pulse Rate 117 H Blood Pressure 136/92 H Pulse Oximetry 99 100 11/11/24 23:12 11/11/24 23:17 11/11/24 23:22 Temperature Pulse Rate Blood Pressure Pulse Oximetry 100 100 99 11/11/24 23:27 11/11/24 23:31 11/11/24 23:32 Temperature Pulse Rate 112 H Blood Pressure 140/82 Pulse Oximetry 100 99 11/11/24 23:37 11/11/24 23:49 11/11/24 23:54 Temperature Pulse Rate Blood Pressure Pulse Oximetry 100 98 98 11/11/24 23:59 11/12/24 00:00 11/12/24 00:01 Temperature 37.3 C Pulse Rate 111 H Blood Pressure 130/88 Pulse Oximetry 98 11/12/24 00:04 11/12/24 00:09 11/12/24 00:13 Temperature Pulse Rate Blood Pressure Pulse Oximetry 99 98 99 11/12/24 00:18 11/12/24 00:23 11/12/24 00:28 Temperature Pulse Rate Blood Pressure Pulse Oximetry 99 98 98 11/12/24 00:31 11/12/24 00:33 11/12/24 00:38 Temperature Pulse Rate 113 H Blood Pressure 133/89 Pulse Oximetry 100 98 11/12/24 03:06 11/12/24 03:11 11/12/24 03:16 Temperature Pulse Rate Blood Pressure Pulse Oximetry 99 99 96 11/12/24 03:21 11/12/24 03:26 11/12/24 03:31 Temperature Pulse Rate Blood Pressure Pulse Oximetry 96 99 98 11/12/24 03:36 11/12/24 03:41 11/12/24 03:46 Temperature Pulse Rate Blood Pressure Pulse Oximetry 98 95 99 11/12/24 03:51 11/12/24 03:56 11/12/24 04:00 Temperature 36.9 C Pulse Rate Blood Pressure Pulse Oximetry 94 98 11/12/24 04:01 11/12/24 04:06 11/12/24 04:11 Temperature Pulse Rate 110 H Blood Pressure 133/92 H Pulse Oximetry 97 98 100 11/12/24 04:16 11/12/24 04:21 11/12/24 06:00 Temperature 37.0 C Pulse Rate Blood Pressure Pulse Oximetry 97 98 11/12/24 07:35 11/12/24 07:37 Temperature 37.1 C Pulse Rate 100 Blood Pressure 138/81 Pulse Oximetry
--- NOTE | 2024-11-17 10:34 | P.DS_ITS ---
DS: Admitting Diagnosis Discharge Date 11/12/24 Admitting Diagnosis contractions OB - DS: Summary OB Procedures : None OB Procedures Intrapartum: Other (undelivered) OB Procedures: : None Time Spent with Patient Time attestation: Total time spent providing and/or coordinating discharge services: Discharge Plan Discharge Consulting providers: Cindi Bryant Discharging Clinician: Cindi Bryant Patient Disposition: Home Activity: as tolerated Diet: gestational diabetic Discharge Instructions: OB ANTEPARTUM DISCHARGE INSTRUCTIONS This information is given to help you properly care for yourself at home after your discharge from the hospital. Follow these instructions until your doctor tells you otherwise. DIET: Eat Three Well Balanced Meals per Day Drink at Least Eight 8-Ounce Glasses of Caffeine-Free Beverages Daily Additional Diet Instructions: ACTIVITY: As Tolerated Increase Periods of Rest Additional Activity Instructions: RETURN TO LABOR AND DELIVERY IF YOU HAVE: Any Change In Baby's Normal Movement Pattern Any Leakage of Fluid Contractions 3-5 Minutes Apart with Increasing Intensity Vaginal Bleeding Additional Reasons to Return to Labor and Delivery: Contractions may feel like abdominal pain, tightening, cramping, pressure, back ache, or thigh ache. OTHER INSTRUCTIONS: FOLLOW-UP CARE: Keep Next Scheduled Appointment To see in/on Valuables released to patient or family? Medications from home returned to patient? I Acknowledge Receipt of and Understand the Above Instructions IF YOU HAVE ANY QUESTIONS REGARDING THESE INSTRUCTIONS, PLEASE CALL [phone]. IF PROBLEMS ARISE, CALL YOUR PROVIDER. IF EMERGENCY CARE IS NEEDED, [facility]S EMERGENCY ROOM IS AVAILABLE 24 HOURS A DAY. Patient Language: Israeli Stand Alone Forms: General Discharge Information Follow-up/Referrals: Cindi Bryant CNM [Certified Nurse Financial Examiner] - Discharge Medications: Continued pantoprazole 40 mg tablet,delayed release (DR/EC) 40 mg PO Q12H cyclobenzaprine 5 mg tablet 5 mg PO Q12H PNV 115-iron bhv-pxllq-yun 29 mg iron- 1 mg-25 mg tablet 1 tablet PO DAILY nifedipine 10 mg capsule 10 mg PO Q6H PRN (Reason: contractions) Qty: 60 0RF nifedipine 60 mg tablet extended release 24hr 60 mg PO DAILY No Action aspirin 81 mg tablet,chewable 81 mg PO DAILY Date of admission: 11/11/24 21:19 Primary Care Provider: PHYSICIAN,TRACK MACHINE OPERATOR REPAIRER Admitting Provider: Messi Garcia Attending physician on admission: Messi Garcia Condition: Stable
== END 2024-11-12 07:50 | disposition home or self-care (01) | DRG 832 ==
PROVIDERS: Advanced Practice Midwife; Admitting Provider Obstetrics & Gynecology; Visit Provider Obstetrics & Gynecology
DX: O60.03 Preterm labor without delivery, third trimester (principal); O10.913 Unspecified pre-existing hypertension complicating pregnancy, third trimester; Z3A.34 34 weeks gestation of pregnancy; O30.043 Twin pregnancy, dichorionic/diamniotic, third trimester; O99.613 Diseases of the digestive system complicating pregnancy, third trimester; O99.283 Endocrine, nutritional and metabolic diseases complicating pregnancy, third trimester; E03.9 Hypothyroidism, unspecified; O24.410 Gestational diabetes mellitus in pregnancy, diet controlled; K21.9 Gastro-esophageal reflux disease without esophagitis
CPT/HCPCS: 36415; 59025; 80053; 81003; 82570; 82948; 84156; 84550; 85025; 86593; 86850; 86900; 86901; 99199; A9270; G0378; G0379; J2795

== ENCOUNTER 2024-11-12 19:14 | Observation (INO) | payer OTHER, SELFPAY ==
[2024-11-12 19:46] VITALS: PULSE 97; O2SAT 100
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
--- NOTE | 2024-11-12 19:50 | PC.NURSE ---
1920- Patient arrives to OB unit with complaints of contractions. Patient is a and currently is with twins. Patient has CHTN and GDM this . Patient states the contractions started to get painful an hour ago when she was eating dinner. Patient states she does not know how frequent the contractions are or how long they are lasting because they have been happening all day, so she did not time them. Patient denies vaginal bleeding or leaking of fluid. Patient has positive movement. Patient states she took her PRN dose of procardia an hour and a half ago. Patient denies any other complaints at this time. 1931- RN notified Shabnam Bryant CNM of patient arrival and patient complaints. RN notified CNM of cervical exam that is unchanged since patient left this morning. CNM gave orders to offer the patient to do an NST and the patient can be d/c or the patient can stay for a few hours if she would like to see if any change is made. 1939- RN at bedside discussing plan of care with patient. RN gave patient both options, patient states she would like to go home at this time.
--- OUTSIDE RECORDS SUMMARY | 2024-11-12 19:50 | XMS_ITS | Encounter Summary ---
Author Organization [facility] Address [address] [place] [address] Phone Care Team Providers Care Back Filler Operator Name Role Phone Manda Singh MD Unavailable [phone] Robby Torres Primary Care Provider [phone] Scooter White DO Primary Care Provider Malik Cates MD Unavailable Ulices Marino MD Unavailable Yon Gutierrez MD Primary Care Provider Georgina Fontenot APRN, [facility] Unavailable [phone] Encounter Details Date Type Department Care Team (Late st Contact Info) Description 04/09/2020 Telephone [facility] [address] [address] [address] Saud Dalton MD [address] [place] [phone] Social History Tobacco Use Types Packs/Day [...] COVID-19? No / Unsure 03/20/2020 6:06 AM CHIEF DIETITIAN documented as of this encounter Miscellaneous Notes * Telephone Encounter - Mahnaz Alaniz - 04/09/2020 2:50 PM CST Patient no showed her appointment, left voice message to call the office to reschedule. Sent out a no show letter. F DIETITIAN documented in this encounter Plan of Treatment Not on file documented as of this encounter Visit Diagnoses Not on filedocumented in this encounter Additional Health Concerns Assessment Noted Time PHQ-9 Depression Total Score: 0 02/11/20 20 12:57 PM CDT documented as of this encounter Care Teams Back Filler Operator Relationship Specialty Start Date End Date Robby Torres [address] [place] [address] PCP - General Family Medicine 02/11/20 03/16/21 Scooter White DO [address] [place] [address] [place] [address] PCP - General Internal Medicine 03/17/21 06/22/23 Yon Gutierrez MD [address] [place] [address] [address] PCP - General Family Medicine 06/23/23 Manda Singh MD Obstetrics & Gynecology 02/11/20 Malik Cates MD [address] [id number] Consulting Physician Endocrinology 12/13/21 Ulices Marino MD [address] [address] Consulting Physician Colon and Rectal Surgery 07/06/22 Georgina Fontenot APRN, WR[employer]PER OFF [address] [place] [address] Nurse Practitioner Advanced Practice Nurse 09/25/24 documented as of this encounter
--- OUTSIDE RECORDS SUMMARY | 2024-11-12 19:50 | XMS_ITS | Encounter Summary ---
Author Organization [facility] Address [address] [place] [address] Care Team Providers Care Truck Sales Manager Name Role Phone Scooter White DO Primary Care Provider [phone] Encounter Details Date Type Department Care Team (Late st Contact Info) Description 11/06/2018 Lab Requisition [facility] Care Pathology Lab [address] [place] [address] Cindi Herrera MD [address] [place] [address] Enlarged lymph nodes Social History Tobacco Use Types Packs/Day Years Used Date Smoking Tobacco: Never Smokeless Tobacco: Never Alcohol Use Standard Drinks/Week Comments No 0 (1 standard drink = 0.6 oz pur e alcohol) Comments No Sex and Gender Information Value Date Recorded Sex Assigned at Not on file Legal Sex Female 1:08 PM PLATE 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 - See interpretation. 9 5:33 PM [facility] at 1733 CDT Flow [...] specimen is required. KR 9 5:33 PM [facility] Flow Cytometry Results Differential Result Comment Flow Cell Count /uL [id number] Total Viability % 86.0 Lymphocytes % 97 Dim CD45 Region % 0 Monocytes % 1 Granulocytes % 1 9 5:33 PM [facility] Reason for test Enlarged lymph nodes 785.6 9 5:33 PM [facility] Client Specimen ID # [id number] 9 5:33 PM [facility] Number of markers 16 were performed. A Flow CD3 A Flow CD10 A Flow CD20 A Flow CD23 A Flow CD2 A Flow CD4 A Flow CD1a A Flow CD5 A Flow CD19 A Flow CD34 A Flow CD45 A Flow CD7 A Flow CD8 A Flow CD30 A [place]+CD19+ A Lambda+CD19+ 9 5:33 PM [facility] Disclaimer Test performed at [facility], [address] [place], [place], [address]. *The established laboratory minimum viability is 70%. [...] complexity clinical testing. 9 5:33 PM CDT [facility] Embedded Images 9 5:33 PM CDT [facility] Pathology/Cytolo gy ENTIRE CERVICAL LYMPH NODE / Unknown 11/05/2018 11:02 AM CDT 11/06/2018 2:01 PM CDT Cindi Herrera MD LAB - PATHOLOGY/CYTOLOGY ORDERA BLE Final Result [facility] [address] [facility] [place] [address], [facility] [phone] documented in this encounter Visit Diagnoses Diagnosis Enlarged lymph nodes Enlargement of lymph nodes documented in this encounter Care Teams Truck Sales Manager Relationship Specialty Start Date End Date Scooter White DO PCP - General 03/16/22 documented as of this encounter
--- OUTSIDE RECORDS SUMMARY | 2024-11-12 19:50 | XMS_ITS | Continuity of Care Document ---
Author Organization [facility] Address [address] [address] [place] [address] Phone Care Team Providers Care Cotton Wringer Name Role Phone Robby Torres MD Unavailable [...] Diagnoses Date Provider Providers Copied on Encounter [facility], [address] [facility] [address] [place], [id number], [place] tel:[phone] [facility] No Information 1 Brian Bustamante. [address], [place], [place], [address] , [place]. tel:[phone] [facility], [address], [place], [place], [address], [place] tel:[phone] [facility] No Information 0 Brian Bustamante. [address], [place], [place], [address] , [place]. tel:[phone] OFFICE/OUTPA TIENT VISIT, [facility], [address], [place], [place], [address], [place] tel:[phone] [facility] anxiety1 (chief complaint) Generalized Anxiety DisorderHypothyroid ism 0 Brian Bustamante. [address], [place], [place], [address] , [place]. tel:[phone] Referring Provider: Robby Torres [address], [place], [place], [address]. tel:[phone] OFFICE/OUTPA TIENT VISIT, [facility], [address], [place], [place], [address], [place] tel:[phone] [facility] anxiety1 (chief complaint) Generalized Anxiety DisorderGoiter 0 Brian Bustamante. [address], [place], [place], [address] , [place]. tel:[phone] Referring Provider: Robby Torres [address], [place], [place], [address]. tel:[phone] OFFICE/OUTPA TIENT VISIT, [facility], [address], [place], [place], [address], [place] tel:[phone] [facility] thyroid nodule1 (chief complaint) anxiety1 (chief complaint) GoiterGeneralized Anxiety Disorder 0 Brian Menendez [address], [place], [place], [address] , [place]. tel:[phone] Referring Provider: Gissel Banks [address], [place], [place], [address]. tel:[phone] OFFICE/OUTPA TIENT VISIT, [facility], [address], [place], [place], [address], [place] tel:[phone] [facility] anxiety1 (chief complaint) iron1 (chief complaint) thyroid1 (chief complaint) Disorder of iron metabolism, unspecifiedGoiterGe neralized Anxiety Disorder Lonnie-0 0 Brian Bustamante. [address], [place], [place], [address] , [place]. [phone] Referring Provider: Gissel Banks [address], [place], [place], [address]. tel:[phone] OFFICE/OUTPA TIENT VISIT, [facility], [address], [place], [place], [address], [place] tel:[phone] [facility] ankle pain1 (chief complaint) fatigue1 (chief complaint) thyroid1 (chief complaint) anemia1 (chief complaint) Pain in right ankleFatigueAnemiaG oiter 0 Brian Bustamante. [address], [place], [place], [address] , [place]. tel:[phone] Referring Provider: Gissel Banks [address], [place], [place], [address]. tel:[phone] OFFICE/OUTPA TIENT VISIT, [facility], [address], [place], [place], [address], [place] tel:[phone] [facility] rash1 (chief complaint) Allergic contact dermatitis due to plants, except food Aug- 0 Brian Bustamante. [address], [place], [place], [address] , [place]. [phone] Referring Provider: Gissel Banks [address], [place], [place], [address]. tel:[phone] OFFICE/OUTPA TIENT VISIT, [facility], [address], [place], [place], [address], tel:[phone] [facility] Medicine thyroid1 (chief complaint) ferritin1 (chief complaint) IgA (chief complaint) fatigue1 (chief complaint) GoiterDisorder of iron metabolism, unspecifiedVitamin D deficiency, unspecifiedRaised level of immunoglobulinAnemi aH. pylori as the cause of diseases classified elsewhereFatigue 0 Brian Bustamante. [address] [facility] [place], [address] , . tel:[phone] Referring Provider: Gissel Banks [place], [address]. tel:[phone] PREV VISIT, NEW, AGE 18-39 [facility], [address] [place] [address] [employer] [place], [address], tel:[phone] [facility] PHysical (chief complaint) Encntr for general adult medical exam w/o abnormal findings 0 Brian Bustamante. [address], [facility] [address], [place], [place], [address] , [place]. tel:[phone] Referring Provider: Robby Torres [address] [place] [address], [id number]. tel:[phone] Family History Family Member Type Diagnosis Age [...] Referral Referred To: Jean Carlos BolañosJoe silva [address] [facility]
[address] [place], [place] [address] Ordered: Referrals: Allopathic & Osteopathic Physicians : [...] any dysphagia ankle pain1 Pt was at [place] and she stepped on gravel [...] or swelling . fatigue1 Pt has mild can solderer mark fatigue Pt had sleep study done [...]
--- OUTSIDE RECORDS SUMMARY | 2024-11-12 19:50 | XMS_ITS | Continuity of Care Document ---
Author Organization [facility] Address [address] [place] [address] [address] [place] [address] Phone Care Team Providers Care Whipped Topping Finisher Name Role Phone Carol OD OD, Georgina [...] - Active Procedures Procedure Date OFFICE/OUTPATIENT VISIT, [facility] Comp cont lens eval No Charge Visit N/C Glasses Check Advance Directives Directive Yes / No Effective Date File Name No Information Encounters Encounter Description Practice Location Reason(s) For Visit Diagnoses Date Provider Providers Copied on Encounter [facility], [address] [place] [address] [address], [place], [place], [address], tel:[phone] [facility] No Information 3 Carol OD Georgina. [address], [place], [place], [address], [place]. tel:[phone] Referring Provider: Georgina Medina OD, [address], [place], [address] . tel:[phone] OFFICE/OUTPA TIENT VISIT, [facility], [address] [place] [address], [id number], tel:[phone] [facility] blurry vision (chief complaint) dry eye (chief complaint) Krystin's thyroiditisMyo roger, bilateralTear film insufficiency of bilateral lacrimal glandsOther vitreous opacities, bilateralCorne al neovasculariza tion of both eyes 2 Derheimer OD Georgina. [address], [address] [place] [address], [id number], [place]. tel:[phone] Referring Provider: Scooter White, [address], [place], [address]. tel:[phone] [facility], [address] [place] [address], [id number], tel:[phone] [facility] No Information 6 Derheimer OD Georgina. [address], [address] [place] [address], [id number], [place]. tel:[phone] Referring Provider: Georgina Medina OD, [address], [place], [address] . tel:[phone] [facility], [address] [place] [address], [id number], tel:[phone] [facility] blurry vision (chief complaint) Myopia, bilateral 6 Derheimer OD Georgina. [address], [place], [place], [address], [place]. tel:[phone] Referring Provider: Georgina Medina OD, [address], [place], [address] . tel:[phone] [facility], [address] [place] [address], [id number], tel:[phone] [facility] No Information 1 Beth Cohenl. [address], [place], [place], [address], [place]. tel:[phone] Family History Family Member Type Diagnosis Age [...]
--- OUTSIDE RECORDS SUMMARY | 2024-11-12 19:50 | XMS_ITS | Clinical Summary ---
Author Organization [facility] Address [address] [place] [address] Care Team Providers Care Weld Fitter Name Role Phone Scooter White DO Primary Care Provider [phone] Source Comments [facility],non-owned Affiliates and Associated Physician Practices is amultiple site organization consisting of ambulatory clinics and hospital sitesin [place], [place], [place] and [place]. This disclosure is being madepursuant to the Care Everywhere program and may not contain all information available regarding this patient. Last updated 18.[facility] Allergies Active Allergy Reactions Criticality Noted Date [...] Department Care Team Description 10/28/2024 Telephone [facility] [address] [place], [place] [address] Silvina León Appointment 09/24/2024 1:00 PM CDT - 09/24/2024 11:59 PM CDT Hospital Encounter [facility] [address] [place] [address] Derick Mcclendon MD DOLL WIGS HACKLER Discharge Disposition: Home or Self Care 08/27/2024 12:58 PM CDT - 08/27/2024 11:59 PM CDT Hospital Encounter [facility] [address] [place] [address] Christiano Tristan MD Discharge Disposition: Home or [...] on file Legal Sex 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) 28 weeks gestation of ([facility]) Supervision of high risk in second trimester ([facility]) Obesity affecting in second trimester, unspecified obesity type ([facility]) Encounter for follow-up ultrasound of anatomy ([facility]) Encounter for ultrasound to assess growth ([facility]) SONOGRAM - COMPLETE Routine 08/27/2024 1 2:52 PM CDT Dichorionic diamniotic twin in second trimester ([facility]) History of pre-eclampsia in prior , currently ([facility]) 24 weeks gestation of ([facility]) Supervision of high risk in second trimester ([facility]) from Last 3 Months Results * SONOGRAM - COMPLETE (09/24/2024 1:09 PM CDT) Only the most recent of2 resultswithin the time period is included. Linked Results Indication ======== DA/DC Twins Incomplete Anatomy Screen x2 History of Preeclampsia, Obesity in , Class II History ====== OB History 4. Para 3 [id number] 1. live 2011. Gest. age 41 w [...] 2 lb 14 oz EFW by Hadlock ([id number]) EFW discordance 4.6 % appropriate Fetus B: Biometry BPD 69.2 mm 27w 6d 42% Hadlock HC 260.6 mm 28w 2d 39% Hadlock AC 252.3 mm 29w 3d 88% Hadlock Femur 51.1 mm 27w 3d 25% Hadlock Humerus 48.6 mm 28w 4d 68% Robinson HC / AC 1.03 Weight Calculation: EFW 1,242 g 69% Hadlock EFW (lb,oz) 2 lb 12 oz EFW by Hadlock ([id number]) EFW discordance 4.6 % appropriate Fetus A: [...] Thorax RVOT view. LVOT view. 3-vessel view. 3-xxtgrw-xemdmwh view. Situs. Bicaval view. Ductal arch view. [...] view. RVOT view. LVOT view. 3-vessel view. 2-dnrytc-gobegbz view. Situs. Aortic arch view. Bicaval view. [...] and begin weekly testing Coding ====== Procedures [id number]: [place] Preg Uterus Follow Up. x2 [employer] PACS Anatomical Region Laterality Modality Other 09/24/2024 1:09 PM CDT R Bert Garcia MD [facility] ORDERABLES Edited Result - Final from Last 3 Months Insurance HEALTH [employer] CARE Member Subscriber Plan / Payer (Ef fective 2021-Present) Name:Yessica Mo Relation to Subscriber:Spouse Name:SLOO MO Date of :1987 (Home) Address: [address] [place] [address] Payer ID:[id number] (NAIC) Type:PPO Address: [place] [id number] [place] [address] Care Teams Weld Fitter Relationship Specialty Start Date End Date Scooter White DO PCP - General 03/16/22
--- OUTSIDE RECORDS SUMMARY | 2024-11-12 19:50 | XMS_ITS | Encounter Summary ---
Author Organization [facility] Address [address] [place] [address] Phone Care Team Providers Care Cement And Concrete Plant Worker Name Role Phone Manda Singh MD Unavailable [phone] Scooter White DO Primary Care Provider Malik Cates MD Unavailable Ulices Marino MD Unavailable Yon Gutierrez MD Primary Care Provider Georgina Fontenot APRN, [facility] Unavailable [phone] Encounter Details Date Type Department Care Team (Late st Contact Info) Description 07/26/2021 [facility] [address] [place] [address] Edita Garza, TRUNG, FLYING II INSTRUCTOR [address] [place] [address] Encounter for pre-employment examination Social [...] >=1.1 AI 07/26/2021 10:00 PM CDT [facility] Blood No Phlebotomy Charged / Unknown 07/26/2021 9:00 AM CDT 07/26/2021 2:15 PM CDT Narrative [facility] - 07/26/2021 10:00 PM CDT <= 0.8 Negative. No detectable VZV IgG antibody. 0.9 - 1.0 Equivocal >=1.1 Positive Antibody testing was performed by multiplex flow immunoassay on the BioPlex platform. Edita L Behrends WET PROCESS ASSISTANT HEAD MILLER, FLYING II INSTRUCTOR IMMUNOLOGY ORDERABL ES Final Result Performing Organization Address [facility] de Phone Number [facility] [address] [place] [address], [place] * (ABNORMAL) RUBEOLA (MEASLES) IGG (07/26/2021 9:00 AM CDT) MEASLES AB IGG 0.7(L) >=1.1 AI 07/26/2021 10:00 PM CDT [facility] Blood No Phlebotomy Charged / Unknown 07/26/2021 9:00 AM CDT 07/26/2021 2:15 PM CDT Narrative [facility] - 07/26/2021 10:00 PM CDT <= 0.8 Negative. No detectable Measles IgG antibody. 0.9 - 1.0 Equivocal >=1.1 Positive Antibody testing was performed by multiplex flow immunoassay on the BioPlex platform. Edita L Behrends WET PROCESS ASSISTANT HEAD MILLER, FLYING II INSTRUCTOR IMMUNOLOGY ORDERABL ES Final Result Performing Organization Address [facility] de Phone Number [facility] [address] [place] [address], [place] * RUBELLA IMMUNITY IGG (07/26/2021 9:00 AM CDT) RUBELLA IMMUNITY Immune Immune, Invalid 07/26/2021 10:00 PM CDT [facility] Blood No Phlebotomy Charged / Unknown 07/26/2021 9:00 AM CDT 07/26/2021 2:15 PM CDT Narrative [facility] - 07/26/2021 10:00 PM CDT Antibody testing was performed by multiplex flow immunoassay on the BioPlex platform. us Edita Garza WET PROCESS ASSISTANT HEAD MILLER, FLYING II INSTRUCTOR CHEMISTRY ORDERABLE S Final Result Performing Organization Address [facility] Co de Phone Number [facility] [address] [place] [address], [place] * MUMPS IGG (07/26/2021 9:00 AM CDT) Mumps Ab IgG 1.2 >=1.1 AI 07/26/2021 10:00 PM CDT [facility] Blood No Phlebotomy Charged / Unknown 07/26/2021 9:00 AM CDT 07/26/2021 2:15 PM CDT Narrative [facility] - 07/26/2021 10:00 PM CDT <= 0.8 Negative. No detectable Mumps IgG antibody. 0.9 - 1.0 Equivocal >=1.1 Positive Antibody testing was performed by multiplex flow immunoassay on the BioPlex platform. us Edita Garza WET PROCESS ASSISTANT HEAD MILLER, FLYING II INSTRUCTOR IMMUNOLOGY ORDERABL ES Final Result Performing Organization Address [facility] Co de Phone Number [facility] [address] [place] [address], [place] * QUANTIFERON-TB GOLD PLUS (07/26/2021 9:00 AM CDT) NIL CONTROL 0.04 <8.01 IU/mL 07/28/2021 1:01 PM CDT [facility] TB ANTIGEN 1 0.00 <0.35 IU/mL 07/28/2021 1:01 PM CDT [facility] TB ANTIGEN 2 0.00 <0.35 IU/mL 07/28/2021 1:01 PM CDT [facility] MITOGEN CONTROL 9.64 >0.49 IU/mL 07/29/19 1:01 PM CDT [facility] INTEPRETATION TB NEGATIVE NEGATIVE, NEGATIVE (TB antigen response less than 25% of internal negative control value) 07/28/2021 1:01 PM CDT [facility] Comment:No immune response t o Mycobacterium tuberculosis antigens was noted. M. tuberculosis infection unlikely. Blood No Phlebotomy Charged / Unknown 07/26/2021 9:00 AM CDT 07/26/2021 2:15 PM CDT Narrative [facility] - 07/28/2021 1:01 PM CDT [...] immunocompromised individuals. https://www.cdc.gov/tb/publications/guidelines/testing.htm us Edita L Behrends WET PROCESS ASSISTANT HEAD MILLER, FLYING II INSTRUCTOR IMMUNOLOGY ORDERABL ES Final Result Performing Organization Address [facility] Co de Phone Number [facility] [address] [place] [address], [place] * HEPATITIS B SURFACE ANTIBODY (HBSAB) (07/26/2021 9:00 AM CDT) HEPATITIS B SURFACE ANTIBODY 8.33 mIU/mL [facility] ARCH [id number] B 07/27/2021 12:02 AM CDT [facility] Comment: Grayzone Range: >=8.00 to <=12.00 The immune status of the individual should be further assessed considering other factors, such as clinical status, follow-up testing, associated risk factors and the use of additional diagnostic information. Blood No Phlebotomy Charged / Unknown 07/26/2021 9:00 AM CDT 07/26/2021 2:15 PM CDT us Edita Garza WET PROCESS ASSISTANT HEAD MILLER, FLYING II INSTRUCTOR CHEMISTRY ORDERABLE S Final Result Performing Organization Address [facility] Co de Phone Number [facility] [address] [place] [address], [place] documented in this encounter Visit Diagnoses Diagnosis Encounter for pre-employment examination Health examination of defined subpopulation documented in this encounter Additional Health Concerns Assessment Noted Time PHQ-9 Depression Total Score: 0 02/11/20 20 12:57 PM CDT documented as of this encounter Care Teams Cement And Concrete Plant Worker Relationship Specialty Start Date End Date Scooter White DO [address] [place] [address] [place] [address] PCP - General Internal Medicine 03/17/21 06/22/23 Yon Gutierrez MD [address] [place] [address] [address] PCP - General Family Medicine 06/23/23 Manda Singh MD Obstetrics & Gynecology 02/11/20 Malik Cates MD [address] [address] Consulting Physician Endocrinology 12/13/21 Ulices Marino MD [address] [address] Consulting Physician Colon and Rectal Surgery 07/06/22 Georgina Fontenot APRN, [facility] [address] [place] [address] Nurse Practitioner Advanced Practice Nurse 09/25/24 documented as of this encounter
--- OUTSIDE RECORDS SUMMARY | 2024-11-12 19:50 | XMS_ITS | Encounter Summary ---
Author Organization [facility] Address [address] [place] [address] Phone Care Team Providers Care Waste Paper Hammermill Operator Name Role Phone Manda Singh MD Unavailable [phone] Robby Torres Primary Care Provider [phone] Scooter White DO Primary Care Provider Malik Cates MD Unavailable Ulices Marino MD Unavailable Yon Gutierrez MD Primary Care Provider Georgina Fontenot APRN, [facility] Unavailable [phone] Encounter Details Date Type Department Care Team (Late st Contact Info) Description 03/09/2020 [facility] [address] [place] [address] Walter Blake MD [address] [place] [address] Preop testing (Primary Dx) Social History Tobacco [...] Unable to assess 03/10/2020 1:32 PM MANAGER OF ORGANIZATIONAL DEVELOPMENT documented as of this encounter Plan of Treatment Not on file documented as of this encounter Visit Diagnoses Diagnosis Preop testing- Primary Preoperative examination, unspecified documented in this encounter Additional Health Concerns Infection Onset Date Last Indicated Resolved Time COVID - 19 03/10/2020 03/10/2020 03/16/2020 11:4 0 AM MANAGER OF ORGANIZATIONAL DEVELOPMENT Assessment Noted Time PHQ-9 Depression Total Score: 0 02/11/20 20 12:57 PM CDT documented as of this encounter Care Teams Waste Paper Hammermill Operator Relationship Specialty Start Date End Date Robby Torres [address] [place] [address] PCP - General Family Medicine 02/11/20 03/16/21 Scooter White DO [facility] [place] [address] PCP - General Internal Medicine 03/17/21 06/22/23 Yon Gutierrez MD [address] [facility] , [facility] [address] [place] [address] PCP - General Family Medicine 06/23/23 Manda Singh MD Obstetrics & Gynecology 02/11/20 Malik Cates MD [address]2 [facility] [address] [place] [address] Consulting Physician Endocrinology 12/13/21 Ulices Marino MD [address] [address] Consulting Physician Colon and Rectal Surgery 07/06/22 Georgina Fontenot APRN, ELECTRO MECHANICAL ENGINEER [address] [place] [address] Nurse Practitioner Advanced Practice Nurse 09/25/24 documented as of this encounter
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
--- OUTSIDE RECORDS SUMMARY | 2024-11-12 19:50 | XMS_ITS | Clinical Summary ---
Author Organization 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 Goiter 12/14/2020 Class 2 obesity due [...] Transcribe Orders [facility] [address] [place] [address] Provider, Not On File Low back pain, [...] 97.5 kg (215 lb) 04/19/2023 8:07 AM STUFFING MACHINE OPERATOR Height 165.1 cm (5' 5) 04/19/2023 8:07 AM STUFFING MACHINE OPERATOR Body Mass Index 35.78 04/19/2023 8:07 AM STUFFING MACHINE OPERATOR Plan of Treatment Health Maintenance [...] this topic Medical Devices Implanted Type Area Relocation Services Specialist Device Identifier Shelf Expiration Date Model / Serial / Lot Tube Ventilation 5mm Carey Triune - [id number] Implanted:Qty: 1 on 11/05/2018 by Jordon Deng MD at [facility] IMPLANT Left: Ear [employer] 04/06/2020 510-122 / [id number] / [id number] Description:Ear tubes came f rom the same package Tube Ventilation 5mm Carey Triune - [id number] Implanted:Qty: 1 on 11/05/2018 by Jordon Deng MD at [facility] IMPLANT Right: Ear [employer] 04/06/2020 510-122 / 510-122 / [id number] Description:Ear tubes came f rom the same package Insurance * Guarantor: [facility] Account Type Relation to Patient Date of Phone Billing Address Institutional Other [address] [place] [address] Care Teams Staff Analyst Relationship Specialty Start Date End Date Yon Gutierrez MD [address] [address] PCP - General Family Medicine 06/23/23 Manda Singh MD Obstetrics & Gynecology 02/11/20 Malik Cates MD [address] [address] Consulting Physician Endocrinology 12/13/21 Ulices Marino MD [address] [address] Consulting Physician Colon and Rectal Surgery 07/06/22 Georgina Fontenot, ACTIVITY ASSISTANT, [employer]LISM INTERNSH[employer] [address] [place] [address] Nurse Practitioner Advanced Practice Nurse 09/25/24
[2024-11-12 19:51] VITALS: PULSE 102; O2SAT 100
[2024-11-12 19:55] VITALS: BMI 41.1
[2024-11-12 19:56] VITALS: PULSE 93; O2SAT 99
--- NOTE | 2024-11-12 19:56 | OBADM ---
This patient, Yessica Mo, admitted to the OB room Labor/Delivery/Recovery 102 for observation. Patient/family oriented to hospital policies and general routines including ID bracelet, bed and alarms, visiting hours, pain management, procedures, bathroom and other care routines, personal items, smoking policy, room service/diet, and visiting hours. Patient/Family are encouraged to report perceived risks to care and to ask questions if they do not understand what they are told or what they should do.
[2024-11-12 20:01] VITALS: BP 130/80; PULSE 108; PULSE 97; O2SAT 97
[2024-11-12 20:06] VITALS: PULSE 92; O2SAT 99
[2024-11-12 20:11] VITALS: PULSE 120; O2SAT 100
--- NOTE | 2024-11-13 07:34 | PM.OBTRLD ---
OB - Triage/Final Diagnosis Visit Information Date of evaluation: 11/12/24 Reason for evaluation: threatened labor Comments/Additional reasons for admission: I have assessed the risk for this patient, Yessica Mo, and determined that she would benefit from observation care. Evaluation Vital signs: Vital Signs - 24 hr 11/12/24 19:46 11/12/24 19:51 11/12/24 19:56 Pulse Rate Blood Pressure Pulse Oximetry 100 100 99 11/12/24 20:01 11/12/24 20:06 11/12/24 20:11 Pulse Rate 97 Blood Pressure 130/80 Pulse Oximetry 97 99 100
== END 2024-11-12 20:22 | disposition home or self-care (01) ==
PROVIDERS: Admitting Provider Obstetrics & Gynecology; Referring Provider Advanced Practice Midwife; Visit Provider Obstetrics & Gynecology
DX: O47.03 False labor before 37 completed weeks of gestation, third trimester (principal); Z3A.34 34 weeks gestation of pregnancy
CPT/HCPCS: G0378; G0379

== ENCOUNTER 2024-11-13 05:53 | Outpatient (CLI) | payer OTHER, SELFPAY ==
--- OUTSIDE RECORDS SUMMARY | 2024-11-13 06:32 | XMS_ITS | Continuity of Care Document ---
Author Organization [facility] Address [address] [place] [address] [address] [place] [address] Phone Care Team Providers Care Director Advertising Name Role Phone Carol OD OD, Georgina [...] - Active Procedures Procedure Date OFFICE/OUTPATIENT VISIT, [facility] Comp cont lens eval No Charge Visit N/C Glasses Check Advance Directives Directive Yes / No Effective Date File Name No Information Encounters Encounter Description Practice Location Reason(s) For Visit Diagnoses Date Provider Providers Copied on Encounter [facility], [address] [place] [address] [address], [place], [place], [id number], tel:[phone] OPH CONSULT KENTRELL LOPEZ No Information 3 Carol OD Georgina. [address] [facility], [address], [place], [place], [id number], [place]. tel:[phone] Referring Provider: Georgina Medina OD, [address] [facility] [address], [place], [address] . tel:[phone] OFFICE/OUTPA TIENT VISIT, [facility], [address] [place] [address], [id number], tel:[phone] OPH CONSULT KENTRELL LOPEZ blurry vision (chief complaint) dry eye (chief complaint) Krystin's thyroiditisMyo roger, bilateralTear film insufficiency of bilateral lacrimal glandsOther vitreous opacities, bilateralCorne al neovasculariza tion of both eyes 2 Derheimer OD Georgina. [address], [address] [place] [address], [id number], [place]. tel:[phone] Referring Provider: Scooter White, [address], [place], [address]. tel:[phone] [facility], [address] [place] [address], [id number], tel:[phone] [facility] Services KENTRELL LOPEZ No Information 6 Derheimer OD Georgina. [address], [address] [place] [address], [id number], [place]. tel:[phone] Referring Provider: Georgina Medina OD, [address], [place], [address] . tel:[phone] [facility], [address] [place] [address], [id number], tel:[phone] OPH CONSULT KENTRELL LOPEZ blurry vision (chief complaint) Myopia, bilateral 6 Derheimer OD Georgina. [address], [place], [place], [id number], [place]. tel:[phone] Referring Provider: Georgina Medina OD, [address], [place], [address] . tel:[phone] [facility], [address] [place] [address], [id number], tel:[phone] OPH CONSULT KENTRELL LOPEZ No Information 1 Beth Cohenl. [address], [place], [place], [id number], [place]. tel:[phone] Family History Family Member Type Diagnosis Age [...]
--- OUTSIDE RECORDS SUMMARY | 2024-11-13 06:32 | XMS_ITS | Encounter Summary ---
Author Organization [facility] Address [address] [place] [address] Care Team Providers Care Salesperson Children'S Shoes Name Role Phone Scooter White DO Primary Care Provider [phone] Encounter Details Date Type Department Care Team (Late st Contact Info) Description 11/06/2018 Lab Requisition [facility] Care Pathology Lab [address] [place] [address] Cindi Herrera MD [address] [place] [address] Enlarged lymph nodes Social History Tobacco Use Types Packs/Day Years Used Date Smoking Tobacco: Never Smokeless Tobacco: Never Alcohol Use Standard Drinks/Week Comments No 0 (1 standard drink = 0.6 oz pur e alcohol) Comments No Sex and Gender Information Value Date Recorded Sex Assigned at Not on file Legal Sex Female 1:08 PM HEAD HOLDER Gender Identity Not on file Sexual Orientation [...] AM CDT) Case Report Flow Cytometry Case: [id number] Authorizing Provider: Cindi Herrera MD Collected: 11/05/2018 11:02 AM Pathologist: Alexa Weinberg MD Received: 11/06/2018 02:01 PM Specimen: Cervical Lymph Node , Left 9 5:33 PM T [facility] PATH[facility] Final Diagnosis Lymph node, left cervical, flow cytometric immunophenotypic analysis: - No evidence of non-Hodgkin lymphoma. - See interpretation. 9 5:33 PM [facility] at 1733 CDT Flow Cytometry [...] cytometry specimen is reviewed for quality compliance coordinator purposes. In summary, the left cervical lymph node specimen shows no evidence of a non-Hodgkin lymphoma. Correlation with additional clinical information and the concurrent biopsy specimen is required. KR 9 5:33 PM [facility] Flow Cytometry Results Differential Result Comment Flow Cell Count /uL [id number] Total Viability % 86.0 Lymphocytes % 97 Dim CD45 Region % 0 Monocytes % 1 Granulocytes % 1 9 5:33 PM [facility] Reason for test Enlarged lymph nodes 785.6 9 5:33 PM [facility] Client Specimen ID # [id number] 9 5:33 PM [facility] Number of markers 16 were performed. A Flow CD3 A Flow CD10 A Flow CD20 A Flow CD23 A Flow CD2 A Flow CD4 A Flow CD1a A Flow CD5 A Flow CD19 A Flow CD34 A Flow CD45 A Flow CD7 A Flow CD8 A Flow CD30 A [place]+CD19+ A Lambda+CD19+ 9 5:33 PM [facility] Disclaimer Test performed at [facility], [address] [place], [place], [address]. *The established laboratory minimum viability is 70%. [...] LAB - PATHOLOGY/CYTOLOGY ORDERA BLE Final Result [facility] [address] [facility] [place] [address], [facility] [phone] documented in this encounter Visit Diagnoses Diagnosis Enlarged lymph nodes Enlargement of lymph nodes documented in this encounter Care Teams Salesperson Children[employer]S Sh[employer] Relationship Specialty Start Date End Date Scooter White DO PCP - General 03/16/22 documented as of this encounter
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
--- OUTSIDE RECORDS SUMMARY | 2024-11-13 06:32 | XMS_ITS | Clinical Summary ---
Author Organization [facility] [employer] Address [address] [place] [address] Care Team Providers Care Truck Body Builder Apprentice Name Role Phone Scooter White DO Primary Care Provider [phone] Source Comments [facility],non-owned Affiliates and Associated Physician Practices is amultiple site organization consisting of ambulatory clinics and hospital sitesin [place], [place], [place] and [place]. This disclosure is being madepursuant to the Care Everywhere program and may not contain all information available regarding this patient. Last updated 18.[facility] [employer] Allergies Active Allergy Reactions Criticality Noted Date [...] Care Team Description 10/28/2024 Telephone [facility] [address] [place], [place] [id number] Silvina León Appointment 09/24/2024 1:00 PM CDT - 09/24/2024 11:59 PM CDT Hospital Encounter [facility] [address] [place] [address] Derick Mcclendon MD CARGO VESSEL STEWARDESS Discharge Disposition: Home or Self Care 08/27/2024 12:58 PM CDT - 08/27/2024 11:59 PM CDT Hospital Encounter [facility] [address] [place] [address] Christiano Tristan MD Discharge Disposition: Home or [...] on file Legal Sex Female 1:08 PM GOLF CART MECHANIC Gender Identity Not on file Sexual Orientation [...] (HCC) Dichorionic diamniotic twin in second trimester ([facility]) 28 weeks gestation of ([facility]) Supervision of high risk in second trimester ([facility]) Obesity affecting in second trimester, unspecified obesity type ([facility]) Encounter for follow-up ultrasound of anatomy ([facility]) Encounter for ultrasound to assess growth ([facility]) SONOGRAM - COMPLETE Routine 08/27/2024 1 2:52 PM CDT Dichorionic diamniotic twin in second trimester ([facility]) History of pre-eclampsia in prior , currently ([facility]) 24 weeks gestation of ([facility]) Supervision of high risk in second trimester ([facility]) from Last 3 Months Results * SONOGRAM - COMPLETE (09/24/2024 1:09 PM CDT) Only the most recent of2 resultswithin the time period is included. Linked Results Indication ======== DA/DC Twins Incomplete Anatomy Screen x2 History of Preeclampsia, Obesity in , Class II History ====== OB History 4. Para 3 [id number] 1. live 2011. Gest. age 39 w [...] 2 lb 14 oz EFW by Hadlock (CSC-CM-PA-FL) EFW discordance 4.6 % appropriate Fetus B: Biometry BPD 69.2 mm 27w 6d 42% Hadlock HC 260.6 mm 28w 2d 39% Hadlock AC 252.3 mm 29w 3d 88% Hadlock Femur 51.1 mm 27w 3d 25% Hadlock Humerus 48.6 mm 28w 4d 68% Robinson HC / AC 1.03 Weight Calculation: EFW 1,242 g 69% Hadlock EFW (lb,oz) 2 lb 12 oz EFW by Hadlock (ZDY-AV-OE-FL) EFW discordance 4.6 % appropriate Fetus A: [...] Thorax RVOT view. LVOT view. 3-vessel view. 1-wieewz-wcqdxnz view. Situs. Bicaval view. Ductal arch view. [...] view. RVOT view. LVOT view. 3-vessel view. 8-cdpkir-ekaable view. Situs. Aortic arch view. Bicaval view. [...] and begin weekly testing Coding ====== Procedures [id number]: US Preg Uterus Follow Up. x2 Vantageous PACS Anatomical Region Laterality Modality Other 09/24/2024 1:09 PM CDT R Bert Garcia MD [facility] ORDERABLES Edited Result - Final from Last 3 Months Insurance HEALTH C[employer] CARE Member Subscriber Plan / Payer (Ef fective 2021-Present) Name:Yessica Mo Relation to Subscriber:Spouse Name:SOLO MO Date of :1987 (Home) Address: [address] [place] [address] Payer ID:[id number] (NAIC) Type:PPO Address: [place] [id number] [place] [address] Care Teams Truck Body Builder Apprentice Relationship Specialty Start Date End Date Scooter White DO PCP - General 03/16/22
--- OUTSIDE RECORDS SUMMARY | 2024-11-13 06:32 | XMS_ITS | Clinical Summary ---
Author Organization [facility] [employer] [facility] Address [address] [facility] [address] [place] [address] Phone Care Team Providers Care Hydroelectric Operator Name Role Phone Manda Singh MD Unavailable [phone] Malik Cates MD Unavailable Ulices Marino MD Unavailable Yon Gutierrez MD Primary Care Provider Georgina Fontenot EVP [employer] SALES, [employer] EQUIPMENT OPERATOR Unavailable [phone] Allergies Active Allergy Reactions Criticality Noted Date [...] Transcribe Orders [facility] [address] [place] [address] Provider, Not On File Low back pain, [...] 97.5 kg (215 lb) 04/19/2023 8:07 AM PAYROLL SECRETARY Height 165.1 cm (5' 5) 04/19/2023 8:07 AM PAYROLL SECRETARY Body Mass Index 35.78 04/19/2023 8:07 AM PAYROLL SECRETARY Plan of Treatment Health Maintenance Due Date [...] this topic Medical Devices Implanted Type Area Mortgage Processing Clerk Device Identifier Shelf Expiration Date Model / Serial / Lot Tube Ventilation 5mm Carey Triune - [id number] Implanted:Qty: 1 on 11/05/2018 by Jordon Deng MD [facility] IMPLANT Left: Ear [employer] 04/06/2020 510-122 / [id number] / [id number] Description:Ear tubes came f rom the same package Tube Ventilation 5mm Carey Triune - [id number] Implanted:Qty: 1 on 11/05/2018 by Jordon Deng MD at [facility] IMPLANT Right: Ear [employer] 04/06/2020 510-122 / 510-122 / [id number] Description:Ear tubes came f rom the same package Insurance * Guarantor: [facility] Account Type Relation to Patient Date of Phone Billing Address Institutional Other [address] [place] [address] Care Teams Hydroelectric Operator Relationship Specialty Start Date End Date Yon Gutierrez MD [address] [address] PCP - General Family Medicine 06/23/23 Manda Singh MD Obstetrics & Gynecology 02/11/20 Malik Cates MD [address] [address] Consulting Physician Endocrinology 12/13/21 Ulices Marino MD [address] [address] Consulting Physician Colon and Rectal Surgery 07/06/22 Georgina Fontenot, EVP [employer] M[employer] SALES, LONGSHORE EQUIPMENT OPERATOR [address] [place] [address] Nurse Practitioner Advanced Practice Nurse 09/25/24
--- OUTSIDE RECORDS SUMMARY | 2024-11-13 06:32 | XMS_ITS | Encounter Summary ---
Author Organization [facility] Address [address] [place] [address] Phone Care Team Providers Care Farm Management Supervisor Name Role Phone Manda Singh MD Unavailable [phone] Scooter White DO Primary Care Provider Malik Cates MD Unavailable Ulices Marino MD Unavailable Yon Gutierrez MD Primary Care Provider Georgina Fontenot APRN, MACHINIST/MACHINE BUILDER Unavailable [phone] Encounter Details Date Type Department Care Team (Late st Contact Info) Description 07/26/2021 Lab [facility] [address] [place] [address] Edita Garza, TRUNG, ENGINEERING GEOLOGIST [address] [place] [address] Encounter for pre-employment examination Social [...] AI 07/26/2021 10:00 PM CDT [facility] Blood No Phlebotomy Charged / Unknown 07/26/2021 9:00 AM CDT 07/26/2021 2:15 PM CDT Narrative [facility] - 07/26/2021 10:00 PM CDT <= 0.8 Negative. No detectable VZV IgG antibody. 0.9 - 1.0 Equivocal >=1.1 Positive Antibody testing was performed by multiplex flow immunoassay on the BioPlex platform. Edita L Behrends SPRING TACKER, ENGINEERING GEOLOGIST IMMUNOLOGY ORDERABL ES Final Result Performing Organization Address [facility] de Phone Number [facility] [address] [place] [address], [place] * (ABNORMAL) RUBEOLA (MEASLES) IGG (07/26/2021 9:00 AM CDT) MEASLES AB IGG 0.7(L) >=1.1 AI 07/26/2021 10:00 PM CDT [facility] Blood No Phlebotomy Charged / Unknown 07/26/2021 9:00 AM CDT 07/26/2021 2:15 PM CDT Narrative [facility] - 07/26/2021 10:00 PM CDT <= 0.8 Negative. No detectable Measles IgG antibody. 0.9 - 1.0 Equivocal >=1.1 Positive Antibody testing was performed by multiplex flow immunoassay on the BioPlex platform. Edita L Behrends SPRING TACKER, ENGINEERING GEOLOGIST IMMUNOLOGY ORDERABL ES Final Result Performing Organization Address [facility] de Phone Number [facility] [address] [place] [address], [place] * RUBELLA IMMUNITY IGG (07/26/2021 9:00 AM CDT) [facility] Immune Immune, Invalid 07/26/2021 10:00 PM CDT [facility] Blood No Phlebotomy Charged / Unknown 07/26/2021 9:00 AM CDT 07/26/2021 2:15 PM CDT Narrative [facility] - 07/26/2021 10:00 PM CDT Antibody testing was performed by multiplex flow immunoassay on the BioPlex platform. us Edita Garza SPRING TACKER, ENGINEERING GEOLOGIST CHEMISTRY ORDERABLE S Final Result Performing Organization Address [facility] Co de Phone Number [facility] [address] [place] [address], [place] * MUMPS IGG (07/26/2021 9:00 AM CDT) Mumps Ab IgG 1.2 >=1.1 AI 07/26/2021 10:00 PM CDT [facility] Blood No Phlebotomy Charged / Unknown 07/26/2021 9:00 AM CDT 07/26/2021 2:15 PM CDT Narrative [facility] - 07/26/2021 10:00 PM CDT <= 0.8 Negative. No detectable Mumps IgG antibody. 0.9 - 1.0 Equivocal >=1.1 Positive Antibody testing was performed by multiplex flow immunoassay on the BioPlex platform. us Edita Garza SPRING TACKER, ENGINEERING GEOLOGIST IMMUNOLOGY ORDERABL ES Final Result Performing Organization Address [facility] Co de Phone Number [facility] [address] [place] [address], [place] * QUANTIFERON-TB GOLD PLUS (07/26/2021 9:00 AM CDT) NIL CONTROL 0.04 <8.01 IU/mL 07/28/2021 1:01 PM CDT [facility] TB ANTIGEN 1 0.00 <0.35 IU/mL 07/28/2021 1:01 PM CDT [facility] TB ANTIGEN 2 0.00 <0.35 IU/mL 07/28/2021 1:01 PM CDT [facility] MITOGEN CONTROL 9.64 >0.49 IU/mL 07/29/19 1:01 PM CDT [facility] INTEPRETATION TB NEGATIVE NEGATIVE, NEGATIVE (TB antigen response less than 25% of internal negative control value) 07/28/2021 1:01 PM CDT [facility] Comment:No immune response t o Mycobacterium tuberculosis antigens was noted. M. tuberculosis infection unlikely. Blood No Phlebotomy Charged / Unknown 07/26/2021 9:00 AM CDT 07/26/2021 2:15 PM CDT Narrative [facility] - 07/28/2021 1:01 PM CDT [...] immunocompromised individuals. https://www.cdc.gov/tb/publications/guidelines/testing.htm us Edita L Behrends SPRING TACKER, ENGINEERING GEOLOGIST IMMUNOLOGY ORDERABL ES Final Result Performing Organization Address [facility] Co de Phone Number [facility] [address] [place] [address], [place] * HEPATITIS B SURFACE ANTIBODY (HBSAB) (07/26/2021 9:00 AM CDT) HEPATITIS B SURFACE ANTIBODY 8.33 mIU/mL [facility] ARCH [id number] B 07/27/2021 12:02 AM CDT [facility] Comment: Grayzone Range: >=8.00 to <=12.00 The immune status of the individual should be further assessed considering other factors, such as clinical status, follow-up testing, associated risk factors and the use of additional diagnostic information. Blood No Phlebotomy Charged / Unknown 07/26/2021 9:00 AM CDT 07/26/2021 2:15 PM CDT us Edita Garza SPRING TACKER, ENGINEERING GEOLOGIST CHEMISTRY ORDERABLE S Final Result Performing Organization Address [facility] Co de Phone Number [facility] [address] [place] [address], [place] documented in this encounter Visit Diagnoses Diagnosis Encounter for pre-employment examination Health examination of defined subpopulation documented in this encounter Additional Health Concerns Assessment Noted Time PHQ-9 Depression Total Score: 0 02/11/20 20 12:57 PM CDT documented as of this encounter Care Teams Farm Management Supervisor Relationship Specialty Start Date End Date Scooter White DO [address] [place] [address] [place] [address] PCP - General Internal Medicine 03/17/21 06/22/23 Yon Gutierrez MD [address] [place] [address] [address] PCP - General Family Medicine 06/23/23 Manda Singh MD Obstetrics & Gynecology 02/11/20 Malik Cates MD #[address] [address] Consulting Physician Endocrinology 12/13/21 Ulices Marino MD #[address] [address] Consulting Physician Colon and Rectal Surgery 07/06/22 Georgina Fontenot APRN, MACHINIST/MACHINE BUILDER [address] [place] [address] Nurse Practitioner Advanced Practice Nurse 09/25/24 documented as of this encounter
--- OUTSIDE RECORDS SUMMARY | 2024-11-13 06:32 | XMS_ITS | Encounter Summary ---
Author Organization [facility] Address [address] [place] [address] Phone Care Team Providers Care Sales Service Promoter Name Role Phone Manda Singh MD Unavailable [phone] Robby Torres Primary Care Provider [phone] Scooter White DO Primary Care Provider Malik Cates MD Unavailable Ulices Marino MD Unavailable Yon Gutierrez MD Primary Care Provider Georgina Fontenot APRN, [facility] Unavailable [phone] Encounter Details Date Type Department Care Team (Late st Contact Info) Description 04/09/2020 Telephone [facility] [address] [address] [address] Saud Dalton MD [address] [place] [address] Social History Tobacco Use Types Packs/Day [...] COVID-19? 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 Sent out a no show letter. ETARIAL TEACHER documented in this encounter Plan of Treatment Not on file documented as of this encounter Visit Diagnoses Not on filedocumented in this encounter Additional Health Concerns Assessment Noted Time PHQ-9 Depression Total Score: 0 02/11/20 20 12:57 PM CDT documented as of this encounter Care Teams Sales Service Promoter Relationship Specialty Start Date End Date Robby Torres [address] [place] [address] PCP - General Family Medicine 02/11/20 03/16/21 Scooter White DO [address] [place] [address] [place] [address] PCP - General Internal Medicine 03/17/21 06/22/23 Yon Gutierrez MD [address] [place] [address] [address] PCP - General Family Medicine 06/23/23 Manda Singh MD Obstetrics & Gynecology 02/11/20 Malik Cates MD #[address] [address] Consulting Physician Endocrinology 12/13/21 Ulices Marino MD #[address] [address] Consulting Physician Colon and Rectal Surgery 07/06/22 Georgina Fontenot APRN, ASSOCIATE PROFESSOR OF ART [address] [place] [address] Nurse Practitioner Advanced Practice Nurse 09/25/24 documented as of this encounter
--- OUTSIDE RECORDS SUMMARY | 2024-11-13 06:32 | XMS_ITS | Encounter Summary ---
Author Organization [facility] Address [address] [place] [address] Phone Care Team Providers Care Precipitate Washer Name Role Phone Manda Singh MD Unavailable [phone] Robby Torres Primary Care Provider [phone] Scooter White DO Primary Care Provider Malik Cates MD Unavailable Ulices Marino MD Unavailable Yon Gutierrez MD Primary Care Provider Georgina Fontenot APRN, [facility] Unavailable [phone] Encounter Details Date Type Department Care Team (Late st Contact Info) Description 03/09/2020 [facility] [address] [place] [address] Walter Blake MD [address] [place] [address] Preop testing (Primary Dx) Social History Tobacco [...] COVID-19? 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 documented as of this encounter Plan of Treatment Not on file documented as of this encounter Visit Diagnoses Diagnosis Preop testing- Primary Preoperative examination, unspecified documented in this encounter Additional Health Concerns Infection Onset Date Last Indicated Resolved Time COVID - 19 03/10/2020 03/10/2020 03/16/2020 11:4 0 AM CIVIL ENGINEERING SPECIALIST Assessment Noted Time PHQ-9 Depression Total Score: 0 02/11/20 20 12:57 PM CDT documented as of this encounter Care Teams Precipitate Washer Relationship Specialty Start Date End Date Robby Torres [address] [place] [address] PCP - General Family Medicine 02/11/20 03/16/21 Scooter White DO [facility] [place] [address] PCP - General Internal Medicine 03/17/21 06/22/23 Yon Gutierrez MD 2 [facility] [address] [place] [address] PCP - General Family Medicine 06/23/23 Manda Singh MD Obstetrics & Gynecology 02/11/20 Malik Cates MD [address]2 [facility] [address] [place] [address] Consulting Physician Endocrinology 12/13/21 Ulices Marino MD [address] [address] Consulting Physician Colon and Rectal Surgery 07/06/22 Georgina Fontenot APRN, REGISTERED CLINICAL DIETITIAN [address] [place] [address] Nurse Practitioner Advanced Practice Nurse 09/25/24 documented as of this encounter
--- OUTSIDE RECORDS SUMMARY | 2024-11-13 06:33 | XMS_ITS | Continuity of Care Document ---
Author Organization [facility] Address [address] [facility] [place] [address] Phone Care Team Providers Care Extended Day Teacher Name Role Phone Robby Torres MD Unavailable [...] Diagnoses Date Provider Providers Copied on Encounter [facility], [address] [facility] [place], [address], [place] tel:[phone] [facility] No Information 1 Brian Bustamante. [address], [address], [place], [place], [address] , [place]. tel:[phone] [facility], [address], [place], [place], [address], [place] tel:[phone] [facility] No Information 0 Brian Bustamante. [address], [address], [place], [place], [address] , [place]. tel:[phone] OFFICE/OUTPA TIENT VISIT, [facility], [address], [place], [place], [address], [place] tel:[phone] [facility] anxiety1 (chief complaint) Generalized Anxiety DisorderHypothyroid ism 0 Brian Bustamante. [address], [address], [place], [place], [address] , [place]. tel:[phone] Referring Provider: Robby Torres [address], [place], [place], [address]. tel:[phone] OFFICE/OUTPA TIENT VISIT, [facility], [address], [place], [place], [address], [place] tel:[phone] [facility] anxiety1 (chief complaint) Generalized Anxiety DisorderGoiter 0 Brian Bustamante. [address], [place], [place], [address] , [place]. tel:[phone] Referring Provider: Robby Torres [address], [place], [place], [address]. tel:[phone] OFFICE/OUTPA TIENT VISIT, [facility], [address], [place], [place], [address], [place] tel:[phone] [facility] thyroid nodule1 (chief complaint) anxiety1 (chief complaint) GoiterGeneralized Anxiety Disorder 0 Brian Menendez [address], [address], [place], [place], [address] , [place]. tel:[phone] Referring Provider: Gissel Banks [address], [place], [place], [address]. tel:[phone] OFFICE/OUTPA TIENT VISIT, [facility], [address], [place], [place], [address], [place] tel:[phone] [facility] anxiety1 (chief complaint) iron1 (chief complaint) thyroid1 (chief complaint) Disorder of iron metabolism, unspecifiedGoiterGe neralized Anxiety Disorder Lonnie-0 0 Brian Bustamante. [address], [place], [place], [address] , [place]. [phone] Referring Provider: Gissel Banks [address], [place], [place], [address]. tel:[phone] OFFICE/OUTPA TIENT VISIT, [facility], [address], [place], [place], [address], [place] tel:[phone] [facility] ankle pain1 (chief complaint) fatigue1 (chief complaint) thyroid1 (chief complaint) anemia1 (chief complaint) Pain in right ankleFatigueAnemiaG oiter 0 Brian Bustamante. [address], [place], [place], [address] , [place]. tel:[phone] Referring Provider: Gissel Banks [address], [place], [place], [address]. tel:[phone] OFFICE/OUTPA TIENT VISIT, [facility], [address], [place], [place], [address], [place] tel:[phone] [facility] rash1 (chief complaint) Allergic contact dermatitis due to plants, except food Aug- 0 Brian Bustamante. [address], [place], [place], [address] , [place]. tel: [phone] Referring Provider: Gissel Banks [address], [place], [place], [address]. tel:[phone] OFFICE/OUTPA TIENT VISIT, [facility], [address], [place], [place], [address], tel:[phone] [facility] Medicine thyroid1 (chief complaint) ferritin1 (chief complaint) IgA (chief complaint) fatigue1 (chief complaint) GoiterDisorder of iron metabolism, unspecifiedVitamin D deficiency, unspecifiedRaised level of immunoglobulinAnemi aH. pylori as the cause of diseases classified elsewhereFatigue 0 Brian Bustamante. [address] [facility] [place], [address] , . tel:[phone] Referring Provider: Gissel Banks [place], [place], [address]. tel:[phone] PREV VISIT, NEW, AGE 18-39 [facility], [address] [place] [address] [facility] [place], [address], tel:[phone] [facility] PHysical (chief complaint) Encntr for general adult medical exam w/o abnormal findings 0 Brian Bustamante. [address], [facility] [address], [place], [place], [address] , [place]. tel:[phone] Referring Provider: Robby Torres [address] [place] [address], [id number]. tel:[phone] Family History Family Member Type Diagnosis Age [...] BIOPSY ordered Referral Referred To: Joe Fontana [id number] [facility]
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
--- OUTSIDE RECORDS SUMMARY | 2024-11-13 06:33 | XMS_ITS | Data Portability ---
Author Organization [facility] Address [address] [facility] [place] [address] Care Team Providers Care Poultry Vaccinator Name Role Phone ZO MORA OTHER [phone] Assessment Encounter Date Assessment Date Assessment LastModified [...] auto diff 2018 019 [facility], [address] [address], [place], [address], 9 06:40:13 ferritin, serum or plasma 2018 019 [facility], [address] [facility] [address], [place], [address], 9 06:40:14 iron + total iron-bindin g capacity (TIBC), serum 2018 019 [facility], [address] [place] [address] 2, [place], [address], 9 06:40:14 HIV 1+2 AB + HIV 1 p24 Ag, qualitative immunoassay , serum 2018 019 [facility], [address], [place], [address], 9 07:12:01 HBsAg (hepatitis B surface Ag), EIA, serum 2018 019 [facility], [address], [place], [address], 9 07:12:02 hepatitis C Ab, signal-to-c utoff, serum or plasma 2018 019 [facility], [address], [place], [address], 9 07:12:01 RPR (rapid plasma reagin), serum 2018 019 [facility], [address], [place], [address], 9 07:12:00 hsv (1+2) igg Ab, serum 2018 019 [facility], [address] [facility], [place], [address], 9 07:12:00 CBC w/ auto diff 2018 019 [facility], [address] [facility], [place], [address], 9 07:11:59 Referral general surgeon referral 2018 019 LANA Moralez MD, [address] [facility] , [facility] [address], [place], [address], 9 12:38:24 ENT referral - Saw Dr. Mora --- need a second opinion. 2018 019 [facility], [facility] [address], [place], [address], 9 17:55:21 Procedures None recorded. Surgeries None recorded. Imaging None recorded. Medication Orders ferrous sulfate 325 mg (65 mg iron) tablet [address] [facility], [address] [place] [address], [address], 9 11:26:58 Mucinex 600 mg tablet, extended release [address] [facility] [address] [facility], [address] [place] [address], [address], 9 00:24:12 ferrous sulfate 325 mg (65 mg iron) tablet [address] [facility] [address] [facility], [address] [place] [address], [address], 9 12:48:40 Tessalon Perles 100 mg capsule [address] [facility] [address] [facility], [address] [place] [address], [address], 9 00:24:06 Patient TargetsNo targets recorded. Patient Instructions Encounter Date Encounter Id Patient Instructions Last Modified By Organization Details Last Modified Time 07/27/2018 [id number] upper respirator y infection (cold): care instructions [facility] Not available 07/27/2018 13:23:41 08/29/2018 [id number] hemorrhoids: car e instructions Not available 08/29/2018 16:13:52 anemia: care instructions Not available 08/29/2018 18:08:26 09/05/2018 [id number] Acute Sinusitis: Care Instructions Not available 09/05/2018 12:48:40 11/13/2018 [id number] hemorrhoids: car e instructions [facility] Not available 11/27/2018 00:17:15 02/13/2019 [id number] dizziness: care instructions [facility] Not available 02/13/2019 11:26:58 electrocardiogra m interpretation* [facility] Not available 03/13/2019 15:05:29 Reason for Referral ENT Referral for Cervical ly mphadenopathy Saw Dr. Mora --- need a second opinion. Referring Physician: Lucero Sandoval, Family Medicine, Encounter Date: 07/27/2018 General Surgeon Referral for Hemorrhoids Referring Physician: Ricardo Ramirez, ROLL PLUGGER, Encounter Date: 08/29/2018 Results Created Date Observation Date Name Description Value Unit Range Abnormal Flag Note LastModifiedBy Organization Detail LastModifiedTime 07/04/19 19 07/05/2018 TSH + free T4, serum TSH 3.080 uIU/m L 0.450- 4.500 Not Available [facility] ([facility]) [address] [place], [address], 07/05/2018 09:23:03 07/04/19 19 07/05/2018 TSH + free T4, serum T4,free(dire ct) 1.06 NG/dL 0.82-1 .77 Not Available [facility] ([facility]) [address] [place], [address], 07/05/2018 09:23:03 07/04/19 19 07/04/2018 CBC w/ auto diff WBC 7.2 x10e3 /uL 3.4-10 .8 Not Available [facility] ([facility]) [address] [place], [address], 07/05/2018 09:23:03 07/04/19 19 07/04/2018 CBC w/ auto diff RBC 4.87 x10e6 /uL 3.77-5 .28 Not Available [facility] ([facility]) [address] [place], [address], 07/05/2018 09:23:03 07/04/19 19 07/04/2018 CBC w/ auto diff hemoglobin 11.5 g/dL 11.1-1 5.9 Not Available [facility] ([facility]) [address] [place], [address], 07/05/2018 09:23:03 07/04/19 19 07/04/2018 CBC w/ auto diff hematocrit 36.2 % 34.0-4 6.6 Not Available [facility] ([facility]) [address] [facility] [place], [address], 07/05/2018 09:23:03 07/04/19 19 07/04/2018 CBC w/ auto diff MCV 74 fL 79-97 below low normal Not Available [facility] ([facility]) [address] [facility] [place], [address], 07/05/2018 09:23:03 07/04/19 19 07/04/2018 CBC w/ auto diff MCH 23.6 pg 26.6-3 3.0 below low normal Not Available [facility] ([facility]) [address] [facility] [place], [address], 07/05/2018 09:23:03 07/04/19 19 07/04/2018 CBC w/ auto diff MCHC 31.8 g/dL 31.5-3 5.7 Not Available [facility] ([facility]) [address] [facility] [place], [address], 07/05/2018 09:23:03 07/04/19 19 07/04/2018 CBC w/ auto diff RDW 16.0 % 12.3-1 5.4 above high normal Not Available [facility] ([facility]) [address] [facility] [place], [address], 07/05/2018 09:23:03 07/04/19 19 07/04/2018 CBC w/ auto diff platelets 480 x10e3 /uL 150-37 9 above high normal Not Available [facility] ([facility]) [address] [facility] [place], [address], 07/05/2018 09:23:03 07/04/19 19 07/04/2018 CBC w/ auto diff neutrophils 64 % not estab. Not Available [facility] ([facility]) [address] [facility] [place], [address], 07/05/2018 09:23:03 07/04/19 19 07/04/2018 CBC w/ auto diff lymphs 28 % not estab. Not Available [facility] ([facility]) [address] [facility], [place], [address], 07/05/2018 09:23:03 07/04/19 19 07/04/2018 CBC w/ auto diff monocytes 6 % not estab. Not Available [facility] ([facility]) [address] [facility], [place], [address], 07/05/2018 09:23:03 07/04/19 19 07/04/2018 CBC w/ auto diff eos 1 % not estab. Not Available [facility] ([facility]) [address] [place], [address], 07/05/2018 09:23:03 07/04/19 19 07/04/2018 CBC w/ auto diff basos 1 % not estab. Not Available [facility] ([facility]) [address] [facility], [place], [address], 07/05/2018 09:23:03 07/04/19 19 07/04/2018 CBC w/ auto diff immature cells CORE DRILL OPERATOR HELPER Not Available [facility]) [address] [facility], [place], [address], 07/05/2018 09:23:03 07/04/19 19 07/04/2018 CBC w/ auto diff neutrophils (absolute) 4.6 x10e3 /uL 1.4-7. 0 Not Available [facility] ([facility]) [address] [place], [address], 07/05/2018 09:23:03 07/04/19 19 07/04/2018 CBC w/ auto diff lymphs (absolute) 2.0 x10e3 /uL 0.7-3. 1 Not Available [facility] ([facility]) [address] [place], [address], 07/05/2018 09:23:03 07/04/19 19 07/04/2018 CBC w/ auto diff monocytes(ab solute) 0.5 x10e3 /uL 0.1-0. 9 Not Available [facility] ([facility]) [address] [facility], [place], [address], 07/05/2018 09:23:03 07/04/19 19 07/04/2018 CBC w/ auto diff eos (absolute) 0.1 x10e3 /uL 0.0-0. 4 Not Available [facility] ([facility]) [address] [facility], [place], [address], 07/05/2018 09:23:03 07/04/19 19 07/04/2018 CBC w/ auto diff baso (absolute) 0.1 x10e3 /uL 0.0-0. 2 Not Available [facility] ([facility]) [address] [facility], [place], [address], 07/05/2018 09:23:03 07/04/19 19 07/04/2018 CBC w/ auto diff immature granulocytes 0 % not estab. Not Available [facility] ([facility]) [address] [facility], [place], [address], 07/05/2018 09:23:03 07/04/19 19 07/04/2018 CBC w/ auto diff immature grans (abs) 0.0 x10e3 /uL 0.0-0. 1 Not Available [facility] ([facility]) [address] [facility], [place], [address], 07/05/2018 09:23:03 07/04/19 19 07/04/2018 CBC w/ auto diff NRBC CORE DRILL OPERATOR HELPER Not Available [facility] ([facility]) [address] [place], [address], 07/05/2018 09:23:03 07/04/19 19 07/04/2018 CBC w/ auto diff hematology comments: CORE DRILL OPERATOR HELPER Not Available [facility]) [address] [facility], [place], [address], 07/05/2018 09:23:03 07/04/19 19 07/05/2018 CMP, serum or plasm a glucose 90 mg/dL 65-99 Not Available [facility] ([facility]) [address] [place], [address], 07/05/2018 09:23:04 07/04/19 19 07/05/2018 CMP, serum or plasm a BUN 9 mg/dL 6-20 Not Available [facility] ([facility]) [address] [place], [address], 07/05/2018 09:23:04 07/04/19 19 07/05/2018 CMP, serum or plasm a creatinine 0.66 mg/dL 0.57-1 .00 Not Available [facility] ([facility]) [address] [place], [address], 07/05/2018 09:23:04 07/04/19 19 07/05/2018 CMP, serum or plasm a eGFR if nonafricn AM 123 mL/mi n/1.7 3 >59 Not Available [facility] ([facility]) [address] [place], [address], 07/05/2018 09:23:04 07/04/19 19 07/05/2018 CMP, serum or plasm a eGFR if africn AM 142 mL/mi n/1.7 3 >59 Not Available [facility] ([facility]) [address] [place], [address], 07/05/2018 09:23:04 07/04/19 19 07/05/2018 CMP, serum or plasm a BUN/creatini ne ratio 14 9-23 Not Available [facility] ([facility]) [address] [place], [address], 07/05/2018 09:23:04 07/04/19 19 07/05/2018 CMP, serum or plasm a sodium 139 mmol/ L 134-14 4 Not Available [facility] ([facility]) [address] [place], [address], 07/05/2018 09:23:04 07/04/1907/05/2018 CMP, serum or plasm a potassium 4.4 mmol/ L 3.5-5. 2 Not Available [facility] ([facility] [address] [facility] [place], [address], 07/05/2018 09:23:04 07/04/1907/05/2018 CMP, serum or plasm a chloride 102 mmol/ L 96-106 Not Available [facility] ([facility] [address] [facility] [place], [address], 07/05/2018 09:23:04 07/04/1907/05/2018 CMP, serum or plasm a carbon dioxide, total 23 mmol/ L 20-29 Not Available [facility] ([facility]) [address] [facility] [place], [address], 07/05/2018 09:23:04 07/04/1907/05/2018 CMP, serum or plasm a calcium 9.7 mg/dL 8.7-10 .2 Not Available [facility] ([facility]) [address] [facility] [place], [address], 07/05/2018 09:23:04 07/04/19 19 07/05/2018 CMP, serum or plasm a protein, total 8.1 g/dL 6.0-8. 5 Not Available [facility] ([facility]) [address] [facility] [place], [address], 07/05/2018 09:23:04 07/04/1907/05/2018 CMP, serum or plasm a albumin 4.6 g/dL 3.5-5. 5 Not Available [facility] ([facility] [address] [facility] [place], [address], 07/05/2018 09:23:04 07/04/1907/05/2018 CMP, serum or plasm a globulin, total 3.5 g/dL 1.5-4. 5 Not Available [facility] ([facility]) [address] [facility] [place], [address], 07/05/2018 09:23:04 07/04/1907/05/2018 CMP, serum or plasm a A/G ratio 1.3 1.2-2. 2 Not Available [facility] ([facility]) [address] [facility] [place], [address], 07/05/2018 09:23:04 07/04/1907/05/2018 CMP, serum or plasm a bilirubin, total 0.3 mg/dL 0.0-1. 2 Not Available [facility] ([facility]) [address] [facility] [place], [address], 07/05/2018 09:23:04 07/04/1907/05/2018 CMP, serum or plasm a alkaline phosphatase 68 IU/L 39-117 Not Available [facility] [address] [facility] [place], [address], 07/05/2018 09:23:04 07/04/1907/05/2018 CMP, serum or plasm a AST (SGOT) 20 IU/L 0-40 Not Available [facility] ([facility]) [address] [facility] [place], [address], 07/05/2018 09:23:04 07/04/1907/05/2018 CMP, serum or plasm a ALT (SGPT) 15 IU/L 0-32 Not Available [facility] ([facility]) [address] [facility] [place], [address], 07/05/2018 09:23:04 07/04/1907/05/2018 cytom egalo virus (cmv) igg+i gm Ab, serum cytomegalovi yung (CMV) Ab, IgG <0.60 U/mL 0.00-0 .59 Negat hayde <0.60 Equiv ocal 0.60 - 0.69 Posit hayde >0.69 Not Available [facility] ([facility]) [address] [facility], [place], [address], 07/05/2018 09:23:04 07/04/19 19 07/05/2018 cytom egalo virus (cmv) igg+i gm Ab, serum cytomegalovi yung (CMV) Ab, IgM <30.0 AU/mL 0.0-29 .9 Negat hayde <30.0 Equiv ocal 30.0 - 34.9 Posit hayde >34.9 A posit hayde resul t is gener ally indic ative of acute infec tion, react ivati on or persi stent IgM produ ction . Not Available [facility] ([facility]) [address] [facility], [place], [address], 07/05/2018 09:23:04 07/04/1907/05/2018 RPR (rapi d plasm a reagi n), serum RPR Non Reacti ve non reacti ve Not Available [facility] ([facility]) [address] [facility], [place], [address], 07/05/2018 09:23:05 07/04/1907/05/2018 heter ophil e Ab, quali tativ e latex agglu tinat ion, serum mono qual w/rflx qn Negati ve negati ve The sensi tivit y of Heter ophil e antib srinivasan testi ng is 80-90 %. Epste in [place] IgM testi ng offer s highe r sensi tivit y. Not Available [facility] ([facility]) [address] [facility], [place], [address], 07/05/2018 09:23:06 08/30/1908/30/2018 CBC w/ auto diff WBC 7.4 x10e3 /uL 3.4-10 .8 Not Available [facility] ([facility]) [address] [place], [address], 08/30/2018 07:11:59 08/30/19 19 08/30/2018 CBC w/ auto diff RBC 4.51 x10e6 /uL 3.77-5 .28 Not Available [facility] ([facility]) [address] [place], [address], 08/30/2018 07:11:59 08/30/19 19 08/30/2018 CBC w/ auto diff hemoglobin 11.0 g/dL 11.1-1 5.9 below low normal Not Available [facility] ([facility]) [address] [place], [address], 08/30/2018 07:11:59 08/30/1908/30/2018 CBC w/ auto diff hematocrit 34.2 % 34.0-4 6.6 Not Available [facility] ([facility]) [address] [place], [address], 08/30/2018 07:11:59 08/30/19 19 08/30/2018 CBC w/ auto diff MCV 76 fL 79-97 below low normal Not Available [facility] ([facility]) [address] [place], [address], 08/30/2018 07:11:59 08/30/19 19 08/30/2018 CBC w/ auto diff MCH 24.4 pg 26.6-3 3.0 below low normal Not Available [facility] ([facility]) [address] [place], [address], 08/30/2018 07:11:59 08/30/1908/30/2018 CBC w/ auto diff MCHC 32.2 g/dL 31.5-3 5.7 Not Available [facility] ([facility]) [address] [place], [address], 08/30/2018 07:11:59 08/30/19 19 08/30/2018 CBC w/ auto diff RDW 15.6 % 12.3-1 5.4 above high normal Not Available [facility] ([facility]) [address] [facility], [place], [address], 08/30/2018 07:11:59 08/30/19 19 08/30/2018 CBC w/ auto diff platelets 389 x10e3 /uL 150-37 9 above high normal Not Available [facility] ([facility]) [address] [facility], [place], [address], 08/30/2018 07:11:59 08/30/19 19 08/30/2018 CBC w/ auto diff neutrophils 59 % not estab. Not Available [facility] ([facility]) [address] [facility], [place], [address], 08/30/2018 07:11:59 08/30/19 19 08/30/2018 CBC w/ auto diff lymphs 31 % not estab. Not Available [facility] ([facility]) [address] [facility], [place], [address], 08/30/2018 07:11:59 08/30/19 19 08/30/2018 CBC w/ auto diff monocytes 8 % not estab. Not Available [facility] ([facility]) [address] [facility], [place], [address], 08/30/2018 07:11:59 08/30/19 19 08/30/2018 CBC w/ auto diff eos 1 % not estab. Not Available [facility] ([facility]) [address] [facility], [place], [address], 08/30/2018 07:11:59 08/30/1908/30/2018 CBC w/ auto diff basos 1 % not estab. Not Available [facility] ([facility]) [address] [facility], [place], [address], 08/30/2018 07:11:59 08/30/1908/30/2018 CBC w/ auto diff immature cells CORE DRILL OPERATOR HELPER Not Available [facility] ([facility]) [address] [facility], [place], [address], 08/30/2018 07:11:59 08/30/19 19 08/30/2018 CBC w/ auto diff neutrophils (absolute) 4.4 x10e3 /uL 1.4-7. 0 Not Available [facility] ([facility]) [address] [place], [address], 08/30/2018 07:11:59 08/30/1908/30/2018 CBC w/ auto diff lymphs (absolute) 2.3 x10e3 /uL 0.7-3. 1 Not Available [facility] ([facility]) [address] [place], [address], 08/30/2018 07:11:59 08/30/1908/30/2018 CBC w/ auto diff monocytes(ab solute) 0.6 x10e3 /uL 0.1-0. 9 Not Available [facility] ([facility]) [address] [place], [address], 08/30/2018 07:11:59 08/30/1908/30/2018 CBC w/ auto diff eos (absolute) 0.1 x10e3 /uL 0.0-0. 4 Not Available [facility] ([facility]) [address] [place], [address], 08/30/2018 07:11:59 08/30/1908/30/2018 CBC w/ auto diff baso (absolute) 0.0 x10e3 /uL 0.0-0. 2 Not Available [facility] ([facility]) [address] [place], [address], 08/30/2018 07:11:59 08/30/1908/30/2018 CBC w/ auto diff immature granulocytes 0 % not estab. Not Available [facility] ([facility]) [address] [place], [address], 08/30/2018 07:11:59 08/30/1908/30/2018 CBC w/ auto diff immature grans (abs) 0.0 x10e3 /uL 0.0-0. 1 Not Available [facility] ([facility]) [address] [facility], [place], [address], 08/30/2018 07:11:59 08/30/1908/30/2018 CBC w/ auto diff NRBC CORE DRILL OPERATOR HELPER Not Available [facility] ([facility]) [address] [facility], [place], [address], 08/30/2018 07:11:59 08/30/1908/30/2018 CBC w/ auto diff hematology comments: CORE DRILL OPERATOR HELPER Not Available [facility] ([facility]) [address] [facility], [place], [address], 08/30/2018 07:11:59 08/30/1908/30/2018 hsv (1+2) igg Ab, [...] willy to HSV-1 . Not Available [facility] ([facility]) [address] [facility], [place], [address], 08/30/2018 07:12:00 08/30/1908/30/2018 hsv (1+2) igg Ab, [...] willy to HSV-2 . Not Available [facility] ([facility]) [address] [facility], [place], [address], 08/30/2018 07:12:00 08/30/19 19 08/30/2018 RPR (rapi d plasm a reagi n), serum RPR Non Reacti ve non reacti ve Not Available [facility] ([facility]) [address] [facility], [place], [address], 08/30/2018 07:12:00 08/30/1908/30/2018 HIV 1+2 AB + HIV 1 p24 Ag, quali tativ e immun oassa y, serum HIV screen 4TH generation wrfx Non Reacti ve non reacti ve Not Available [facility] ([facility]) [address] [facility], [place], [address], 08/30/2018 07:12:01 08/30/19 19 08/30/2018 hepat itis C Ab, signa l-to- cutof f, serum or plasm a HCV Ab <0.1 s/co_ ratio 0.0-0. 9 Not Available [facility] ([facility]) [address] [facility], [place], [address], 08/30/2018 07:12:01 08/30/1908/30/2018 hepat itis C Ab, signa l-to- cutof f, serum or plasm a comment: Commen t Non react hayde HCV antib srinivasan scree n is consi stent with no HCV infec tion, unles s recen t infec tion is suspe cted or other evide nce exist s to indic ate HCV infec tion. Not Available [facility] ([facility]) [address] [facility], [place], [address], 08/30/2018 07:12:01 08/30/1908/30/2018 HBsAg (hepa titis B surfa ce Ag), EIA, serum HBsAg screen Negati ve negati ve Not Available [facility] ([facility]) [address] [facility], [place], [address], 08/30/2018 07:12:02 02/14/2002/14/2019 CBC w/ auto diff WBC 7.5 x10e3 /uL 3.4-10 .8 Not Available [facility] ([facility]) [address] [facility], [place], [address], 02/14/2019 06:40:13 02/14/2002/14/2019 CBC w/ auto diff RBC 4.34 x10e6 /uL 3.77-5 .28 Not Available [facility] ([facility]) [address] [facility], [place], [address], 02/14/2019 06:40:13 02/14/2002/14/2019 CBC w/ auto diff hemoglobin 11.1 g/dL 11.1-1 5.9 Not Available [facility] ([facility]) [address] [facility], [place], [address], 02/14/2019 06:40:13 02/14/2002/14/2019 CBC w/ auto diff hematocrit 34.2 % 34.0-4 6.6 Not Available [facility] ([facility]) [address] [facility], [place], [address], 02/14/2019 06:40:13 02/14/2002/14/2019 CBC w/ auto diff MCV 79 fL 79-97 Not Available [facility] ([facility]) [address] [facility], [place], [address], 02/14/2019 06:40:13 02/14/2002/14/2019 CBC w/ auto diff MCH 25.6 pg 26.6-3 3.0 below low normal Not Available [facility] ([facility]) [address] [facility], [place], [address], 02/14/2019 06:40:13 02/14/2002/14/2019 CBC w/ auto diff MCHC 32.5 g/dL 31.5-3 5.7 Not Available [facility] ([facility]) [address] [facility], [place], [address], 02/14/2019 06:40:13 02/14/2002/14/2019 CBC w/ auto diff RDW 15.0 % 12.3-1 5.4 Not Available [facility] ([facility]) [address] [facility], [place], [address], 02/14/2019 06:40:13 02/14/2002/14/2019 CBC w/ auto diff platelets 372 x10e3 /uL 150-45 0 Not Available [facility] ([facility]) [address] [facility], [place], [address], 02/14/2019 06:40:13 02/14/2002/14/2019 CBC w/ auto diff neutrophils 61 % not estab. Not Available [facility] ([facility]) [address] [facility], [place], [address], 02/14/2019 06:40:13 02/14/2002/14/2019 CBC w/ auto diff lymphs 28 % not estab. Not Available [facility] ([facility]) [address] [facility], [place], [address], 02/14/2019 06:40:13 02/14/2002/14/2019 CBC w/ auto diff monocytes 8 % not estab. Not Available [facility] ([facility]) [address] [facility], [place], [address], 02/14/2019 06:40:13 02/14/2002/14/2019 CBC w/ auto diff eos 2 % not estab. Not Available [facility] ([facility]) [address] [facility], [place], [address], 02/14/2019 06:40:13 02/14/2002/14/2019 CBC w/ auto diff basos 1 % not estab. Not Available [facility] ([facility]) [address] [facility], [place], [address], 02/14/2019 06:40:13 02/14/2002/14/2019 CBC w/ auto diff immature cells CORE DRILL OPERATOR HELPER Not Available [facility] ([facility]) [address] [facility], [place], [address], 02/14/2019 06:40:13 02/14/2002/14/2019 CBC w/ auto diff neutrophils (absolute) 4.7 x10e3 /uL 1.4-7. 0 Not Available [facility] ([facility]) [address] [facility], [place], [address], 02/14/2019 06:40:13 02/14/2002/14/2019 CBC w/ auto diff lymphs (absolute) 2.1 x10e3 /uL 0.7-3. 1 Not Available [facility] ([facility]) [address] [facility], [place], [address], 02/14/2019 06:40:13 02/14/2002/14/2019 CBC w/ auto diff monocytes(ab solute) 0.6 x10e3 /uL 0.1-0. 9 Not Available [facility] ([facility]) [address] [facility], [place], [address], 02/14/2019 06:40:13 02/14/2002/14/2019 CBC w/ auto diff eos (absolute) 0.1 x10e3 /uL 0.0-0. 4 Not Available [facility] ([facility]) [address] [place], [address], 02/14/2019 06:40:13 02/14/2002/14/2019 CBC w/ auto diff baso (absolute) 0.0 x10e3 /uL 0.0-0. 2 Not Available [facility] ([facility]) [address] [facility], [place], [address], 02/14/2019 06:40:13 02/14/2002/14/2019 CBC w/ auto diff immature granulocytes 0 % not estab. Not Available [facility] ([facility]) [address] [facility], [place], [address], 02/14/2019 06:40:13 02/14/2002/14/2019 CBC w/ auto diff immature grans (abs) 0.0 x10e3 /uL 0.0-0. 1 Not Available [facility] ([facility]) [address] [place] [address], [place], [address], 02/14/2019 06:40:13 02/14/2002/14/2019 CBC w/ auto diff NRBC CORE DRILL OPERATOR HELPER Not Available [facility] ([facility]) [address] [place] [address], [place], [address], 02/14/2019 06:40:13 02/14/2002/14/2019 CBC w/ auto diff hematology comments: CORE DRILL OPERATOR HELPER Not Available [facility] ([facility]) [address] [facility], [place], [address], 02/14/2019 06:40:13 02/14/2002/14/2019 iron + total iron- leta ng capac ity (TIBC ), serum iron bind.cap.(TI BC) 353 ug/dL 250-45 0 Not Available [facility] ([facility]) [address] [place], [address], 02/14/2019 06:40:14 02/14/2002/14/2019 iron + total iron- leta ng capac ity (TIBC ), serum UIBC 336 ug/dL 131-42 5 Not Available [facility] ([facility]) [address] [place] [address], [address], 02/14/2019 06:40:14 02/14/2002/14/2019 iron + total iron- leta ng capac ity (TIBC ), serum iron 17 ug/dL 27-159 below low normal Not Available [facility] ([facility]) [address] [facility], [place], [address], 02/14/2019 06:40:14 02/14/20 19 02/14/2019 iron + total iron- leta ng capac ity (TIBC ), serum iron saturation 5 % 15-55 alert low Not Available [facility] ([facility]) [address] [facility], [place], [address], 02/14/2019 06:40:14 02/14/2002/14/2019 cristina tin, serum or plasm a ferritin, serum 7 NG/mL 15-150 below low normal Not Available [facility] ([facility]) [address] [facility], [place], [address], 02/14/2019 06:40:14 07/04/19 19 07/04/2018 XR, chest No observ ation record ed. [email or web address] [address] [place], [address], 07/06/2018 16:35:07 08/16/19 19 08/09/2018 CT, neck, soft tissu e, w/ contr ast No observ ation record ed. [address] [place], [address], 11/27/2018 00:09:00 08/17/19 19 08/16/2018 CT, sinus es, w/o contr ast No observ ation record ed. [address] [place], [address], 08/16/2018 13:21:28 Result Notes None recorded. Problems Name Problem SNOMED Code Status Onset Date Resolution Date Notes Provider Name and Address Organization Details Recorded Time Disorder of thyroid gland 59025378 Completed 201811/26/2018 [facility] New 9 00:12:22 Cervical lymphade nopathy 213294542 Active 2018 [facility] 9 11:15:19 Upper respirat ory infectio n 49778969 Completed 201811/13/2018 [place], [place] - [facility] 9 11:05:53 Mean corpuscu lar volume below referenc e range 599545180 Active 2018 [place] [facility] 9 12:49:50 Acute sinusiti s 56123829 Completed 201811/13/2018 [place] [facility] 9 11:05:49 History of Helicoba cter pylori infectio n 26568311696 972257 Active 2018 GI [place] [facility] 9 00:05:39 Chronic gastriti s 5011130 Active 2018 EGD - H pylori, GI [place] [facility] 9 00:06:03 Hemorrho ids 05009899 Active 2018 Gen sx planning for hemorrho idectomy [place] [facility] 9 00:06:27 Dizzines s 691323303 Active 2018 [place] [facility] 9 11:29:10 Infectiv e vaginiti s 975803152 Active Radha Garcia null[place] [facility] 6 11:25:47 Infectiv e vaginiti s 230887473 Completed Shahrzad Barrera [place] [facility] 5 09:18:25 Maternal care for diminish ed movement s Active Radha [place] [facility] 6 11:25:47 Maternal care for diminish ed movement s Completed Shahrzad Barrera [place] [facility] 5 09:18:25 Breastfe eding painful 754090934 Active Radha Lay[place] [facility] 6 11:25:47 Pain in pelvis 32455673 Active Radha [place] [facility] 6 11:25:47 Vaginal discharg e 861855501 Active white Radha moreno, [facility] 6 11:25:47 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 Procedures Surgical History Date Name Laterality Status Provider Name and Address Organization Details Recorded Time 05/08/19 16 Cholecystectomy completed Radha Garcia [facility] 11/03/2015 11:25:48 01/15/20 15 IUD Insertion completed Ricardo Box [facility] 01/14/2015 12:23:57 04/18/20 12 Date of Last Pap Smear completed Mily Parsons MA [facility] 05/06/2014 16:14:24 05/08/19 10 Appendectomy completed Maida Do MA [facility] 06/17/2014 11:12:04 Imaging Results None recorded. Procedure [...] Updated DateTime 9 162.56 cm 36.7 kg/m2 72581.0 4 g 97.9 [degF] 16 /min 76 /min 124/86 mm[Hg] Jenelle Groves [place] - [facility] 9 12:24:37 Date Recorded Body height Body mass index (BMI) Body weight Systolic And Diastolic Provider Name and Address Organization Details Last Updated DateTime 08/29/2018 162.56 cm 36.2 kg/m2 31940.99 g 130/94 mm[Hg] Shahrzad Barrera MA [facility] 08/29/2018 11:38:34 Date Recorded Body height Body mass index (BMI) Body weight Body temperature Heart rate Respiratory rate Systolic And Diastolic Provider Name and Address Organization Details Last Updated DateTime 9 162.56 cm 36 kg/m2 46550.6 1 g 98.3 [degF] 84 /min 20 /min 132/84 mm[Hg] Jenelle Groves MA [facility] 9 12:15:41 Date Recorded Body height Body mass index (BMI) Body weight Body temperature Heart rate Respiratory rate Systolic And Diastolic Provider Name and Address Organization Details Last Updated DateTime 9 162.56 cm 35.5 kg/m2 16661.9 7 g 98.3 [degF] 70 /min 18 /min 130/80 mm[Hg] Jenelle Groves MA [facility] 9 10:43:45 Date Recorded Body height Body mass index (BMI) Body weight Heart rate Respiratory rate Body temperature Systolic And Diastolic Provider Name and Address Organization Details Last Updated DateTime 9 162.56 cm 36.3 kg/m2 23915.7 9 g 86 /min 20 /min 98.3 [degF] 130/82 mm[Hg] Jenelle Groves MA [facility] 9 11:02:19 Social History Question Answer Notes LastModified by Organizat ion Details LastModified Time Tobacco Smoking Status Never Smoker Maida Do MA [facility] 06/17/2014 11:12:04 Do You Have An Advance [...] Information not available 06/17/2014 Marital [place] [id number] Informatio n not available 06/17/2014 What Was [...] Problems N Other N Breast Cancer N Kidney or Bladder Problems N Thyroid Problems N Lung Disease N Depression N GI Problems N Acne N Eating Disorder N Breast Problem N Anemia N Anesthesia Complications N Headaches/Migraines N Anxiety Disorder N Ovarian Cancer N Diabetes N Blood Transfusions N Arthritis N Infertility N Polyps N Acid Reflux (GERD) N Cancer N [...] SNOMED-CT Code Diagnosis ICD10 Code Diagnosis Note [id number] MD Lalo Weaver ([facility]) [address] [facility] [place] [address] 05/06/2014 15:15:04 05/07/2014 13:43:54 47405024 test positive [id number] Joan Blas [facility] Lalo Husain ([facility]) [address] [facility] [place] [address] 05/22/2014 14:23:39 05/22/2014 15:25:47 [id number] MD Lalo Roldan ([facility]) [address] [facility] [place] [address] 06/17/2014 10:44:30 06/17/2014 15:08:09 [id number] MD Lalo Roldan ([facility]) [address] [facility] [place] [address] 07/15/2014 10:26:03 07/16/2014 09:23:26 Normal 49628051 [id number] MD Lalo Weaver ([facility] 122) [address] [facility] [place] [address] 08/12/2014 09:35:12 08/12/2014 12:42:08 Normal [id number] MD Lalo Weaver ([facility]) [address] [facility] [place] [address] 08/26/2014 11:56:11 08/27/2014 16:10:13 [id number] MD Lalo Weaver ([facility]) [address] [facility] [place] [address] 09/09/2014 14:42:01 09/09/2014 15:30:17 [id number] MD Lalo Weaver ([facility]) [address] [facility] [place] [address] 09/23/2014 09:49:09 09/23/2014 15:23:49 [id number] MD Lalo Weaver ([facility]) [address] [facility] [place] [address] 10/07/2014 10:59:01 10/07/2014 11:38:07 [id number] MD Lalo Weaver ([facility]) [address] [facility] [place] [address] 10/21/2014 09:36:51 10/23/2014 12:51:20 [id number] MD Lalo Weaver ([facility]) [address] [place] [address] 11/04/2014 09:43:59 11/04/2014 14:45:01 [id number] Normal [id number] MD Lalo Weaver ([facility]) [address] [facility] [place] [address] 11/11/2014 11:18:25 11/11/2014 14:54:02 [id number] Maternal c are for diminished movements [id number] MD Lalo Weaver ([facility]) [address] [facility] [place] [address] 11/18/2014 10:46:59 11/18/2014 11:58:55 [id number] MD Lalo Weaver ([facility]) [address] [place] [address] 11/24/2014 08:49:50 11/24/2014 10:29:51 [id number] MD Lalo Weaver ([facility]) [address] [place] [address] 12/24/2014 09:05:47 12/24/2014 12:04:57 care [id number] MD Lalo Weaver ([facility]) [address] [facility] [place] [address] 01/14/2015 11:47:27 01/14/2015 12:33:02 care [id number] Uses contraception [id number] MD Lalo Weaver Womens ([facility] 122) [address] [facility] [place] [address] 01/19/2015 15:46:51 01/20/2015 09:49:17 IUD check 726094584 [id number] MD Lalo Weaver Womens ([facility] 122) [address] [facility] [place] [address] 02/11/2015 10:38:39 02/18/2015 18:08:10 IUD check 159827429 Z30.431 [id number] Joan Blas [facility] Lalo Womenjavi ([facility] 122) [address] [facility] [place] [address] 11/03/2015 11:00:12 11/03/2015 14:33:42 detection examination 61741059 Z32.00 IUD check 339941389 Z30. 721 [id number] MD Lalo HURTADO 14 IM [address] [facility] [place] [address] 07/04/2018 09:50:09 07/04/2018 16:26:43 Cervical lymphadenopathy 908840249 R59.0 Had a cough since 02/2018, on and off No traveling. No cat. Weight stable overall. Fatigue - despite sleeping. No dental issues. No focal weakness. Sweaty at times. Irregular periods. Neuro intact. ENT will do US +/- biopsy soon. Labs. Check for mono, syphilis, CMV, CXR. RTC 3mo Disorder o f thyroid gland 67323431 E07.9 Had a cough since 02/2018, on and off. Check TSH [id number] MD Lalo HURTADO 14 IM [address] [facility] [place] [address] 07/27/2018 12:09:33 07/31/2018 15:49:44 Cervical lymphadenopathy 774987829 R59.0 Had a cough since 02/2018, on [...] second ENT opinion. Upper resp iratory infection 21650727 J06.9 Strept and Flu negative. Exam unremarkab le. Conservati ve management . [id number] MD Lalo Chambers 14 OB [address] [facility] [place] [address] 08/29/2018 11:23:12 08/30/2018 09:21:21 Gynecologic examination 21850042 Z01.419 CBE and pelvic exam performedP t is on her menstrual cycle, will RTC for pap smear Venereal d isease screening 089612705 Z11.3 Anemia 010306513 D64.9 Hemorrhoids 43356754 K64 .9 [id number] MD Lalo HURTADO 14 IM [address] [facility] [place] [address] 09/05/2018 12:08:49 09/06/2018 10:44:23 Acute sinusitis 01700689 J01.90 4 days, worsening coughs, chest congestion . Exam sinusitis. Already on antihistam althea, PPI, Augmentin with ENT. Try home Flonase, add mucinex. Mean corpu scular volume below reference range 678852521 R71.8 MCV still low with Button Riveter. Heavy periods on paraguard with physician gynecologist , still heavy. FeS - taking two tab now. Inc to three - RTC 2mo for ferritin check. [id number] MD Lalo HURTADO 14 IM [address] [facility] [place] [address] 11/13/2018 10:37:12 11/27/2018 11:36:00 Cervical lymphadenopathy 791691075 R59.0 06/2018: Had a cough since 02/2018, [...] done biopsy - result benign. Chronic gastritis 564132 9 K29.50 Followed by GI.Chronic gastritic, H pylori infection - pt was treated. Per pt, her esophagus was also dilated. Hemorrhoids 66174686 K64 .9 Followed by Gen sx - candidate for hemorrhoid ectomy. History of Helicobacter pylori infection 2998810912 [id number] Z86.19 Followed by GI - treated [id number] MD Lalo HURTADO 14 IM [address] [facility] [address] [place] [address] 02/13/2019 10:52:03 02/14/2019 08:35:16 Dizziness 026782813 R42 Thyroid was low with Button Riveter recently - pt will be rechecked by [...] ID Guarantor Name 09/05/2018 1 [place] Yessica Yuong [id number] Yessica Mo 01/08/2019 1 [facility] (MEDICAID HMO) [facility] Yessica Young [id number] Yessica Mo 03/12/2019 2 [place] Yessica Young [id number] Yessica Mo 11/30/2020 1 [place] [id number] Luis Antonio Mo [id number] Yessica Mo 01/19/2015 1 [place] Yessica Young [id number] Yessica Mo 11/03/2015 1 [facility] (MEDICAID HMO) [id number] Yessica Young [id number] Yessica Mo 06/19/2018 1 *SELF PAY* Me [...] pt wants a second opinion [place], [place] - [facility] 07/31/2018 15:32:25 08/29/2018 text/html Annual GYNReport ed [...] PMDD Ricardo Ramirez MD Attn: Accounting,[address] [place], [address], [facility] 08/29/2018 16:15:04 09/05/2018 text/html 23yo female is [...] Domestic Partner Domestic Partner Phone Father Name Appian Developer Status 05/06/20 14 1 A Positive Luis Antonio Mo CLOSED Fetus Data First Name Last Name Admitted to NICU Weight (g) Sex Living Outcome Pediatric Complications Fetus ID Race Codes Race Delivery Type CHASITY ESCAMILLA false 4309.12 4 F Full Term 5386 2106-3 White Vaginal Problems Problem Notes Problem Name Start Date End Date Resolution Snomed Code Not e Infective vaginitis 971091984 Maternal care for diminished movements 966328397 Darren Calculation Initial Darren Date Initial Exam [...] Type Weight in lbs Pre/Post Dialysis Refused 203.521635274513 BP Diastolic BP Location Tested BP Systolic BP Type 64 L arm 118 sitting Fetus Heart Rate Present Fetus Movement Comments Flowsheet Date 05/22/2014 Mckinney Score Blood Edema Fundus Height Fundus Units Glucose Ketones Leukocytes Nitrite Labor Signs Protein Cervic Dilation Cervic Effacement Cervic Station neg none none negative neg Type Weight in lbs Pre/Post Dialysis Refused 198.941721302300 BP Diastolic BP Location Tested BP Systolic [...] Type Weight in lbs Pre/Post Dialysis Refused 164.72664510048 BP Diastolic BP Location Tested BP Systolic [...] Type Weight in lbs Pre/Post Dialysis Refused 201.348775239523 BP Diastolic BP Location Tested BP Systolic [...] Type Weight in lbs Pre/Post Dialysis Refused 203.55684825640 BP Diastolic BP Location Tested BP Systolic BP Type 68 128 Fetus Heart Rate Present A 142 Present Fetus Movement A Yes Comments 28 weeks today Flowsheet Date 08/26/2014 Mckinney Score Blood Edema Fundus Height Fundus Units Glucose Ketones Leukocytes Nitrite Labor Signs Protein Cervic Dilation Cervic Effacement Cervic Station 26 cm none Type Weight in lbs Pre/Post Dialysis Refused 203.54600735468 BP Diastolic BP Location Tested BP Systolic BP Type 74 L arm 122 sitting Fetus Heart Rate Present A 146 Present Fetus Movement A Yes Comments Flowsheet Date 09/09/2014 Mckinney Score Blood Edema Fundus Height Fundus Units Glucose Ketones Leukocytes Nitrite Labor Signs Protein Cervic Dilation Cervic Effacement Cervic Station 30 cm none Type Weight in lbs Pre/Post Dialysis Refused 206.857051493452 BP Diastolic BP Location Tested BP Systolic BP Type 60 L arm 120 sitting Fetus Heart Rate Present A 154 Present Fetus Movement A Yes Comments Flowsheet Date 09/23/2014 Mckinney Score Blood Edema Fundus Height Fundus Units Glucose Ketones Leukocytes Nitrite Labor Signs Protein Cervic Dilation Cervic Effacement Cervic Station 32 cm none Type Weight in lbs Pre/Post Dialysis Refused 205.836041655571 BP Diastolic BP Location Tested BP Systolic BP Type 68 110 Fetus Heart Rate Present A 155 Fetus Movement A Yes Comments Flowsheet Date 10/07/2014 Mckinney Score Blood Edema Fundus Height Fundus Units Glucose Ketones Leukocytes Nitrite Labor Signs Protein Cervic Dilation Cervic Effacement Cervic Station none Type Weight in lbs Pre/Post Dialysis Refused 208.259577470993 BP Diastolic BP Location Tested BP Systolic BP Type 78 110 sitting Fetus Heart Rate Present A 154 Fetus Movement A Yes Comments growth scan ordered Flowsheet Date 10/21/2014 Mckinney Score Blood Edema Fundus Height Fundus Units Glucose Ketones Leukocytes Nitrite Labor Signs Protein Cervic Dilation Cervic Effacement Cervic Station 37 cm none Type Weight in lbs Pre/Post Dialysis Refused 213.242461038533 BP Diastolic BP Location Tested BP Systolic BP Type 72 118 sitting Fetus Heart Rate Present A 140 Present Fetus Movement A Yes Comments gbs today. Flowsheet Date 11/04/2014 Mckinney Score Blood Edema Fundus Height Fundus Units Glucose Ketones Leukocytes Nitrite Labor Signs Protein Cervic Dilation Cervic Effacement Cervic Station 37 cm none Type Weight in lbs Pre/Post Dialysis Refused 216.549160409712 BP Diastolic BP Location Tested BP Systolic [...] Type Weight in lbs Pre/Post Dialysis Refused 217.256124137082 BP Diastolic BP Location Tested BP Systolic [...] Type Weight in lbs Pre/Post Dialysis Refused 221.424007583354 BP Diastolic BP Location Tested BP Systolic [...] Type Weight in lbs Pre/Post Dialysis Refused 223.790881245276 BP Diastolic BP Location Tested BP Systolic [...] At Estimated Date of Delivery false Thalassemia (Bermudian, Azeri, Mediterranean, Or Background): MCV < 80 false Neural Tube Defect (Meningom yelocele, Spina Bifida, Or Anencephaly) false Congenital Heart Defect false Down Syndrome false Curt-Sachs (eg, Latter-Day, Cajun , Honduran-East Timorese) false Yung Disease false Sickle Cell Disease Or Trait () false Hemophilia Or Other Blood Disorders false Muscular Dystrophy false Cystic Fibrosis false Edgewood's Chorea false Mental Retardation/Autism false Other Inherited [...] Domestic Partner Domestic Partner Phone Father Name Appian Developer Status 06/17/19 15 1 CLOSED Fetus Data First Name Last Name Admitted to NICU Weight (g) Sex Living Outcome Pediatric Complications Fetus ID Race Codes Race Delivery Type 3515.33 8 F Full Term [id number] Vaginal Darren Calculation Initial Darren Date Initial [...]
--- OUTSIDE RECORDS SUMMARY | 2024-11-13 06:33 | XMS_ITS | Data Portability ---
Author Organization [facility] Address [address] [place] [address] Care Team Providers Care Speech Teacher Name Role Phone [facility] [employer] Courtesy Clerk [phone] JILLIAN LAO Primary Care Provider Assessment Encounter Date Assessment Date Assessment LastModified by Organization Details LastModified Time 11/06/2024 11/06/2024 Patient is ___33 weeks . Discussed plan. Not available 11/06/2024 15:50:14 11/06/2024 11/06/2024 Pt her for NST - CHTN/TWINS [email or web address] Not available 11/06/2024 17:21:20 Plan of Treatment [...] d. Imaging non-str ess test 2024 025 [email or web address] [place], [facility] [address], [place], [address], 11/07/2024 07:45:10 US, obstetr ic, biophys ical profile + non-str ess test 2024 025 [facility], [facility] [address], [place], [address], 11/06/2024 17:48:20 US, obstetr ic, biophys ical profile + non-str ess test 2024 025 [facility] [address], [place], [address], 11/06/2024 17:48:32 US, obstetr ic, biophys ical profile + non-str ess test 2024 025 [email or web address] [place], [place], [address], 10/31/2024 22:54:00 US, obstetr ic, biophys ical profile + non-str ess test 2024 025 [email or web address] [place], [address], [place], [address], 10/31/2024 22:54:00 Medication Orders None recorde d. Patient TargetsNo targets recorded. Patient InstructionsNo instructions recorded. Reason for Referral None Reported. Results Created Date Observation Date Name Description Value Unit Range Abnormal Flag Note LastModifiedBy Organization Detail LastModifiedTime 10/10/19 25 10/09/2024 US, ayo tric, limit ed No observ ation record ed. [facility] [address], [place], [address], 10/09/2024 17:38:41 10/10/1910/09/2024 US, obste tric, follo w-up No observ ation record ed. [facility] [address], [place], [address], 10/09/2024 17:38:53 10/10/1910/09/2024 US, obste tric, follo w-up No observ ation record ed. [email or web address] [address] [facility], [place], [address], 10/14/2024 10:19:44 10/23/1910/22/2024 US, obste tric, follo w-up No observ ation record ed. [email or web address] [place] [address], [place], [address], 10/22/2024 17:16:15 10/23/1910/22/2024 US, obste tric, follo w-up No observ ation record ed. [email or web address] [place] [address], [place], [address], 10/22/2024 17:16:31 10/23/19 25 10/22/2024 US, obste tric, follo w-up No observ ation record ed. LANA [address], [place], [address], 10/29/2024 21:52:03 10/27/19 25 10/23/2024 non-s tress test No observ ation record ed. [email or web address] [place] [address], [place], [address], 10/26/2024 08:57:06 10/29/19 25 10/23/2024 non-s tress test No observ ation record ed. [email or web address] [place] [address], [place], [address], 10/28/2024 11:44:35 10/31/19 25 10/30/2024 US, obste tric, bioph ysica l profi le + non-s tress test No observ ation record ed. [email or web address] [place] [address], [place], [address], 10/30/2024 13:28:58 10/31/19 25 10/30/2024 US, obste tric, bioph ysica l profi le + non-s tress test No observ ation record ed. [email or web address] [place] [address], [place], [address], 10/30/2024 13:29:11 10/31/19 25 10/30/2024 US, obste tric, follo w-up No observ ation record ed. [email or web address] [address], [place], [address], 10/31/2024 18:00:31 11/07/19 25 11/06/2024 US, obste tric, bioph ysica l profi le + non-s tress test No observ ation record ed. [email or web address] [place] [address], [place], [address], 11/06/2024 17:48:20 11/07/19 25 11/06/2024 US, obste tric, bioph ysica l profi le + non-s tress test No observ ation record ed. [email or web address] [place] [address], [place], [address], 11/06/2024 17:48:32 11/07/19 25 11/06/2024 non-s tress test No observ ation record ed. [email or web address] [place] [address], [place], [address], 11/06/2024 17:22:40 11/07/19 25 11/06/2024 US, obste tric, bioph ysica l profi le + non-s tress test No observ ation record ed. [email or web address] [address], [place], [address], 11/11/2024 12:03:01 11/10/19 25 11/09/2024 imagi ng/di agnos tic resul t No observ ation record ed. [address], [place], [address], 11/11/2024 17:42:12 11/13/19 25 11/12/2024 imagi ng/di agnos tic resul t No observ ation record ed. [address] [facility], [place], [address], 11/12/2024 21:38:41 Result Notes None recorded. Problems Name Problem SNOMED Code Status Onset Date Resolution Date Notes Provider Name and Address Organization Details Recorded Time Pregnanc y 39449253 Completed 202106/09/2022 Kenyetta moreno, [facility] 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 3 15:14:45 Hypothyr oidism 28067078 Completed Eli Brizuela l [facility], [facility] 3 15:14:45 Antenata l care: history of infertil ity 784159329 Completed Eli Brizuela l [facility], [facility] 3 15:14:46 Group B Streptoc occus carrier 4172159863 103 Completed bacteriu berta Elikristin alvarado [facility], [facility] 3 15:14:45 Maternal obesity complica ting pregnanc y, childbir th and the puerperi um, antepart um 9772534042 07 Completed BMI 39- ante testing at 37w Eli alvarado [facility], [facility] 3 15:14:46 Chronic hyperten allison in obstetri c context 2681640 Completed procardi a , baseline labs, ASA Eli alvarado [facility] 3 15:14:46 Placenta circumva llata 8142183 Completed Serial growth u/s Eli alvarado [facility] 3 15:14:45 Pre-ecla mpsia 637860370 Completed Eli alvarado [facility] 3 15:14:45 Abnormal cervical Papanico laou smear 912870739 Active 2023 3 lgsil HPV high risk 1 ascus HPV high risk Kenyetta moreno, [facility] 4 11:59:57 Herpes simplex 31594305 Active 2024 Kenyetta Solano [facility], [facility] 5 16:40:53 Human papillom a virus infectio n 382285572 Active 2024 Kenyetta Russ moreno, [facility] 5 16:40:59 Endometr iosis (clinica l) 554124093 Active 2024 Kenyetta Rocamaurice moreno, [facility] 5 16:41:22 Pregnanc y 17015548 Active 2024 Kenyetta Solano null, [facility] 5 16:03:06 Twin pregnanc y 06708388 Active 38 wk delivery antenata l testing @ 32wks per [facility] Schedule d rpt 08/27 ONLY Tabatha moreno, [facility] 5 12:20:16 Antenata l care: history of infertil ity 481401989 Active Peter Bryant CNM [address], [place], [address], [facility] 5 13:48:37 Past pregnanc y history of pre-ecla mpsia 4106192193 97682 Active Isaiah Liuie Panhcito [facility], [facility] 5 17:10:40 Large for gestatio n age fetus 280893033 Active less then 30 sec shoulder dystocia Peter Bryant CNM [address], [place], [address], [facility] 5 13:51:09 Past pregnanc y history of shoulder dystocia 707175943 Active Peter Bryant CNM [address], [place], [address], [facility] 5 13:52:04 Chronic hyperten allison in obstetri c context 0792257 Active Peter Bryant CNM [address], [place], [address], [facility] 5 13:52:55 Palpitat ions 67598576 Active Holter monitor faxed to [facility] 07/29 Tabatha moreno, [facility] 5 14:05:23 Palpitat ions 97070459 Active Holter monitor faxed to [facility] 07/29 Tabatha moreno, [facility] 5 14:05:23 Migraine 06755320 Active magnesiu m, Excedrin tension, sumatrip tatum Tabatha Flanagan null, [facility] 5 17:11:50 Migraine 79453247 Active magnesiu m, Excedrin tension, sumatrip tatum Tabatha Flanagan null, [facility] 5 17:11:50 Glucose toleranc e test outside referenc e range 042511809 Active 2024 5 checking blood sugars for 2 week instead for doing 3 hour Kenyetta moreno, [facility] 5 17:53:21 Glucose toleranc e test outside referenc e range 631254845 Active 2024 5 checking blood sugars for 2 week instead for doing 3 hour Kenyetta moreno, [facility] 5 17:53:21 Gestatio nal diabetes mellitus 68021904 Active 2024 Kenyetta Solano [facility], [facility] 5 11:47:25 Gestatio nal diabetes mellitus 43886704 Active 2024 Kenyetta moreno, [facility] 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 15:00:00 Acute vaginiti s 39953933 Completed 201807/28/2020 Vaginiti s;Record ed Elsewher e: No Locat ion: Sakshiyumiko arevalo [facility] S ource: EHR [employer] Worker mark: N Practi ce ID: [id number] Emmanuel lable Time: 10:45:00 AM Messi Garcia MD [address], [place], [address], [facility] 15:00:04 Removal of intraute rine device Completed 201807/28/2020 Encounte r for removal of IUD;Eral rded Elsewher e: No Locat ion: Sakshiyumiko arevalo [facility] S ource: EHR Rice [employer] Worker mark: N Practi ce ID: 0001 Emmanuel lable Time: 10:45:00 AM Messi Garcia MD [address], [place], [address], [facility] 15:00:08 Problem Notes None recorded. Procedures Surgical History Date Name Laterality Status Provider Name and Address Organization Details Recorded Time 024 [facility] 16:42:07 024 Date of Last Pap Smear [facility]/16/2023 12:00:08 024 procedure on ear completed Kenyettaelif Solano [facility] 08/16/2023 12:01:09 023 Colposcopy completed Peter Bryant CNM [address], [place], [address], [facility] 06/15/2022 16:59:00 023 [facility] 06/15/2022 16:38:21 023 Colposcopy completed Kenyetta [facility] 06/15/2022 16:38:49 022 intrauterine artificial insemination completed [facility] 06/26/2021 09:20:58 021 intrauterine artificial insemination completed [facility] 06/17/2021 12:15:01 021 intrauterine artificial insemination completed [facility] 06/17/2021 12:14:55 021 intrauterine artificial insemination completed [facility] 06/17/2021 12:14:45 021 intrauterine artificial insemination completed [facility] 06/17/2021 12:14:39 021 LAPAROSCOPY, DIAGNOSTIC (SURG) completed [facility] 08/19/2020 14:04:12 020 completed [facility] 10/01/2020 16:23:53 020 Colonoscopy completed [facility] 01/22/2021 10:59:09 019 procedure on neck completed [facility] 12/25/2019 11:25:51 019 hemorrhoidectomy completed [facility] 12/25/2019 11:24:57 016 cholecystectomy completed [facility] 07/16/2021 17:21:15 010 Appendectomy completed Kenyetta Solano [facility] 12/25/2019 11:24:44 Imaging Results None recorded. Procedure Notes None recorded. Medical Equipment None Reported. Allergies Allergen ID Allergen Name Allergen Category Reaction Reaction Severity Criticality Documentation Date Start Date Code Code System Note Provider Name and Address Organization Details Recorded Time 39758 prednison e medicatio n hives Not available Not available 07/03/2024 8640 RxNorm Peter Bryant, NILSON [address], [place], [address] [place] [address], P[facility] 09:52:22 Medications Name Sig Start Date [...] Pregnyl 10,000 unit intramusc ular solution Inject 01061 units every day by intramus cular route [...] completed Not Available Not Available Not Available nifedipin e ER 60 mg tablet,ex tended release 24 hr TAKE 1 TABLET BY MOUTH EVERY DAY active Not Available Not Available No t Available nifedipin e 10 mg capsule TAKE 1 CAPSULE BY MOUTH EVERY 6 HOURS NEEDED FOR CONTRACT IONS active Not Available Not Available No t Available ciproflox acin 0.3 % eye drops [...] 1 tablet every day by oral route. 03/162 completed Not Available Not Available Not Available [...] route every day 07/02 completed [facility] L[facility] tion: [facility] odify By: [email or web address] z Encoun ter [...] VAIL INJECTIO N INTO RIGHT HIP LOT [id number] EXP 12/2021 Not Available Not Available Not [...] Address Organization Details Last Updated DateTime 10/30/2024 423862.98 g 41.5 kg/m2 161.29 cm 115/84 mm[Hg] Eula Barnes [facility] 10/30/2024 14:01:03 Date Recorded Body weight Systolic And Diastolic Provider Name and Address Organization Details Last Updated DateTime 11/06/2024 239730.70553 g 133/87 mm[Hg] Sun Babcock [facility] 11/06/2024 15:35:27 Social History Question Answer Notes LastModified by Organizat ion Details LastModified Time Tobacco Smoking Status Never Smoker Althea Ezio [facility] 06/15/2022 15:31:26 Do You Have An Advance Directive? No Information n ot available 07/28/2020 If You Are , What Was Your Level Of Alcohol Consumption Prior To ? None [email or web address] Information not available 06/15/2022 Are You Blind [...] Type Of Diet Are You Following? REGULAR [email or web address] Information n ot available 08/19/2020 What Is The Highest Grade Or Level Of School You Have Completed Or The Highest Degree You Have Received? [id number] Information not available 07/28/2020 Are There Any Guns Present In Your Home? No Information not available 07/28/2020 What Was The Date Of Your Most Recent Tobacco Screening? 10/23/2024 [email or web address] Information not available 10/23/2024 Have You Ever [...] How Much Tobacco Do You Smoke? No [email or web address] Information not available 12/25/2019 Do You Use Sunscreen Routinely? Yes Information not available 07/28/2020 Have You Used IV Drugs? No Information not available 07/28/2020 Do You Have Difficulty Walking Or Climbing Stairs? No Information not available 06/15/2022 Sex: Unknown Functional Status Question Answer Note LastModified by Organizat ion Details LastModified Time Do you use any illicit or recreational drugs? No Information not available 07/28/2020 Do you or have you ever used any other forms of tobacco or nicotine? No [email or web address] Information not available 06/15/2022 What is your level of alcohol consumption? Occasional Information not available 12/25/2019 Do you or have you ever used smokeless tobacco? Never used smokeless tobacco [email or web address] Information not available 06/15/2022 Are you able to walk? YESWOREST [email or web address] Information not available 08/19/2020 Are you able to care for yourself? 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 No Information not available 06/15/2022 Do you or have you ever used e-cigarettes or vape? Never used electronic cigarettes [email or web address] Information not available 06/15/2022 What is your exercise level? Occasional Information not available 12/25/2019 Mental Status Question Answer Note LastModified by Organization D etails LastModified Time Do you feel stressed (tense, restless, nervous, or anxious, or unable to sleep at night)? [id number] [email or web address] Information not available 08/19/2020 Family History Relationship Description Onset Age of this Age Resolved Age Notes LastModified by Organization Details LastModified Time Maternal Grandmother Disorder of thyroid gland Not available 01/26 16:14:56 Mother Female infertility [email or web address] Not available 08/2024 13:51:15 Mother Disorder of thyroid gland [email or web address] Not available 01/26 16:14:56 Father Malignant tumor of pancreas [email or web address] Not available 2024 13:51:15 Brother Malignant neoplasm of prostate [email or web address] Not available 2024 13:51:15 Paternal Grandmother Malignant tumor of breast [email or web address] Not available 01/26 16:14:56 Paternal Grandmother Malignant neoplasm of lung [email or web address] Not available 01/26 16:14:56 Medical History Condition Response Allergies (Food, seasonal, environmental ) N Other Y Blood Transfusion N Drug/Latex Allergies/Reactions N Breast Cancer N Dermatologic Disorders N Lung Disease N [...] SNOMED-CT Code Diagnosis ICD10 Code Diagnosis Note [id number] Peter Bryant CNM [place] [address] [address] 12/25/2019 10:57:08 12/25/2019 12:38:39 Breast infection 967968341 N61.0 Trying to conceive 53859 9001 Z31.9 [id number] Messi Garcia MD [place] [address],[place] [address] 06/30/2020 12:07:39 06/30/2020 12:55:49 Pain in pelvis 96896292 R10.2 [id number] Messi Garcia MD [place] [address],[place] [address] 07/02/2020 12:31:33 07/02/2020 16:54:32 Pain in pelvis 85488696 R10.2 This patient is a 25-year-ol d [...] informed consent process. To check fallopian tubes. [id number] Messi Garcia MD [place] [address],[place] [address] 07/23/2020 10:07:53 07/23/2020 10:09:56 [id number] Messi Garcia MD [place] [address],[place] [address] 07/28/2020 13:53:59 07/28/2020 15:27:02 Chest pain 76089311 R07.9 this patient is 25-year-ol d female [...] this patient s visit, including available hand senior android developer upon arrive, temperatur e check and being asked a series of screening questions. All staff wore face coverings during this encounter, as well as provided additional cleaning and sanitizing of all surfaces, including countertop s, pens, chairs, door handles, light switches, etc, prior to and following the patient s visit. [id number] Messi Garcia MD [place] [address],[facility] [[email or web address] [place] [address] 08/04/2020 14:07:07 08/04/2020 14:50:37 Abnormal uterine bleeding 5495912371 9100 N93.9 this patient is a 25-year-ol [...] ovulation [place]. [id number] Peter Bryant CNM [place] [address],[facility] [[email or web address] [place] [address] 08/19/2020 13:46:09 08/19/2020 15:50:34 Trying to conceive 730798825 Z31.9 [id number] Messi Garcia MD [place] [address],[facility] [[email or web address] [place] [address] 09/02/2020 11:05:51 09/02/2020 12:44:09 Female infertility 7680652 N97.9 [id number] Peter Bryant CNM [place] [address],[facility] [[email or web address] [place] [address] 09/04/2020 08:09:36 09/04/2020 09:29:50 Artificial insemination 87498865 Z31.83 [id number] Peter Bryant CNM [place] [address] [address] 09/03/2020 18:20:49 09/03/2020 22:54:04 Trying to conceive 839853456 Z31.9 [id number] Messi Garcia MD [place] [address],[place] [address] 09/09/2020 17:51:09 09/09/2020 18:07:37 Pain in pelvis 93849502 R10.2 This patient is a 25-year-ol d [...] informed consent process. To check fallopian tubes. [id number] Messi Garcia MD [place] [address],[place] [address] 09/22/2020 16:45:48 09/22/2020 17:17:04 Pain in pelvis 46825548 R10.2 This patient is a 25-year-ol d [...] informed consent process. To check fallopian tubes. [id number] Messi Garcia MD [place] [address],[place] [address] 10/01/2020 14:59:50 10/01/2020 15:16:34 Female infertility 0731816 N97.9 [id number] Peter Bryant CNM [place] [address],[place] [address] 10/01/2020 16:21:54 10/01/2020 16:27:38 Trying to conceive 911152540 Z31.9 [id number] [facility] [address],[place] [address] 10/02/2020 08:19:49 10/02/2020 09:46:38 Artificial insemination 72853355 Z31.83 [id number] Messi Garcia MD [place] [address],[place] [address] 10/14/2020 15:52:51 10/14/2020 16:51:20 Pain in pelvis 46361130 R10.2 This patient is a 25-year-ol d [...] informed consent process. To check fallopian tubes. 13822 [place] [address],[place] [address] 10/21/2020 17:06:20 10/21/2020 17:33:05 Hypothyroidism 24187660 E03.9 check labs, will adjust meds if needed [id number] Messi Garcia MD [place] [address],[place] [address] 11/30/2020 13:48:01 11/30/2020 13:52:51 Pain in pelvis 11276666 R10.2 This patient is a 25-year-ol d [...] informed consent process. To check fallopian tubes. [id number] Messi Garcia MD [place] [address],[place] [address] 12/01/2020 14:00:56 12/01/2020 15:31:30 Pain in pelvis 21979586 R10.2 this patient is a 25-year-ol d [...] face-to-fa ce discussing this very complex topic. [id number] Peter Bryant CNM [place] [address],[place] [address] 01/22/2021 09:15:38 01/22/2021 10:35:42 Female infertility 0895708 N97.9 Gynecologi c examination 49503017 Z01.419 [id number] Mesis Garcia MD [place] [address],[place] [address] 02/09/2021 09:19:46 02/09/2021 10:04:48 Female infertility 2096948 N97.9 [id number] Peter Bryant CNM [place] [address],[place] [address] 02/09/2021 14:29:50 02/09/2021 16:50:58 Trying to conceive 602053452 Z31.9 [id number] Peter Bryant [facility] [address],[place] [address] 02/10/2021 09:41:42 02/10/2021 10:12:15 Female infertility 1061925 N97.9 Artificial insemination 28709716 Z31.83 [id number] Messi Garcia MD [place] [address],[place] [address] 04/28/2021 14:43:43 04/28/2021 15:19:59 Female infertility 3742434 N97.9 [id number] Peter Bryant [facility] [address],[place] [address] 04/28/2021 18:59:10 04/29/2021 09:31:07 Trying to conceive 997206973 Z31.9 [id number] Peter Bryant [facility] [address],[place] [address] 04/29/2021 09:31:15 04/29/2021 10:19:12 Artificial insemination 55242099 Z31.83 [id number] Nalini Salomon [facility] [address],[place] [address] 05/25/2021 11:53:11 05/25/2021 16:54:31 Reduced libido 9929980 R68.82 Today we discussed trial of Wellbutrin [...] this patient s visit, including available hand senior android developer upon arrive, temperatur e check and being asked a series of screening questions. All staff wore face coverings during this encounter, as well as provided additional cleaning and sanitizing of all surfaces, including countertop s, pens, chairs, door handles, light switches, etc, prior to and following the patient s visit. [id number] Messi Garcia MD [place] [address],[facility] [[email or web address] [place] [address] 06/22/2021 14:38:59 06/23/2021 09:16:44 Body mass index 30+ - obesity 584159593 Z68.37 This patient is a 26-year-ol d [...] on the dietitian schedule. Gynecologi c examination 58624011 Z01.419 Abnormal u terine bleeding 3623067353 9100 N93.9 [id number] Messi Garcia MD [place] [address] [address] 06/25/2021 09:04:11 06/25/2021 09:23:27 Female infertility 4295418 N97.9 [id number] Peter Bryant CNM [facility] [address] [address] 06/25/2021 18:38:25 06/26/2021 09:09:27 Trying to conceive [id number] Z31.9 [id number] Peter Bryant [facility] [address],[place] [address] 06/26/2021 09:13:57 07/01/2021 15:54:18 Artificial insemination 14565013 Z31.83 [id number] Messi Garcia MD [facility] [address],[place] [address] 1 07/27/2021 17:11:55 07/27/2021 18:06:16 Uncertain viability of 646632112 O36.80X0 Z3A.01 [id number] Messi Garcia MD [facility] [address],[place] [address] 1 08/05/2021 09:17:05 08/05/2021 10:16:25 Abdominal pain in early 335226264 Z33.1 Z3A.01 [id number] Messi Garcia MD [facility] [address],[place] [address] 1 08/18/2021 10:17:54 08/18/2021 11:20:00 [id number] Peter Bryant [facility] [address],[place] [address] 1 08/18/2021 10:18:19 08/19/2021 12:30:57 Amenorrhea 26606358 Z31.89 Z31.83 [id number] Pretty Cotton MD [facility] [address],[place] [address] 1 09/10/2021 14:50:18 09/10/2021 15:34:33 screening 239279972 Z36.82 [id number] Pretty Cotton MD [facility] [address] [place] [address] 1 09/10/2021 14:50:57 09/13/2021 15:22:01 Routine care 582272690 Z34.91 care: history of infertility 571534228 O09.[address] reptococcus carrier 1908153932 103 Z22.330 Hypothyroidism 15751325 E03.9 Maternal o besity complicating , childbirth and the puerperium, antepartum 5910015487 07 O99.211 [id number] Pretty Cotton MD [facility] [address],[place] [address] 1 09/27/2021 17:43:48 09/28/2021 10:23:00 Chronic hypertension complicating AND/OR reason for care during 09301088 O16.9 [id number] Pretty Cotton MD [facility] [address],[place] [address] 1 10/08/2021 14:49:27 10/08/2021 16:16:40 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 2200576 O16.9 care: history of infertility 003567614 O09.01 Hypothyroidism 34282559 E03.9 [id number] Messi Garcia MD [facility] [address],[place] [address] 1 11/03/2021 16:29:49 11/03/2021 18:37:35 screening 652705819 Z36.3 Z3A.20 [id number] Peter Bryant [facility] [address],[place] [address] 1 11/03/2021 16:30:15 11/03/2021 18:37:10 Routine care 195620942 Z34.91 Anxiety 84457765 F41.9 [id number] Messi Garcia MD [facility] [address],[place] [address] 1 12/03/2021 15:10:07 12/03/2021 16:20:49 Hypothyroidism 95522074 E03.9 [id number] Messi Garcia MD [facility] [address] [place] [address] 1 12/03/2021 15:10:54 12/03/2021 17:08:45 Placenta circumvallata 9213460 O43.112 Z36.2 Z3A.24 [id number] Messi Garcia MD [facility] [address],[place] [address] 1 12/29/2021 15:21:10 12/29/2021 16:01:38 Placenta circumvallata 3328614 O43.113 O10.013 O99.213 Z3A.28 [id number] [facility] [address],[place] [address] 1 12/29/2021 15:22:44 12/29/2021 17:01:50 Routine care 714509667 Z34.91 - induced hypertension 27378310 O13.9 [id number] Messi Garcia MD [facility] [address],[place] [address] 01/13/2022 13:47:29 01/13/2022 14:39:17 Medical examination for suspected condition 541619007 Z03.79 [id number] Messi Garcia MD [facility] [address],[place] [address] 1 01/13/2022 13:47:50 01/13/2022 15:53:18 Routine care 751886928 Z34.83 [id number] Pretty Cotton MD [facility] [address],[place] [address] 1 01/17/2022 16:24:29 01/17/2022 18:16:59 Threatened premature labor - not delivered 478782746 O47.9 [id number] Pretty Cotton MD [facility] [address],[place] [address] 1 01/17/2022 16:35:15 01/19/2022 15:28:55 Threatened premature labor - not delivered 812866577 O47.9 [id number] Messi Garcia MD [facility] [address],[place] [address] 1 01/26/2022 14:52:57 01/26/2022 15:27:45 Chronic hypertension complicating AND/OR reason for care during 97354832 O16.9 [id number] Messi Garcia MD [facility] [address],[place] [address] 1 01/26/2022 14:54:57 01/26/2022 16:22:26 Placenta circumvallata 0358298 O43.113 Z3A.32 O10.013 [id number] [facility] [address],[place] [address] 1 01/26/2022 14:55:32 01/26/2022 16:39:21 Routine care 298245133 Z34.91 [id number] Messi Garcia MD [facility] [address],[place] [address] 1 02/02/2022 16:59:59 02/02/2022 17:58:36 Maternal obesity complicating , childbirth and the puerperium, antepartum 0295557248 07 O99.213 [id number] Messi Garcia MD [facility] [address],[place] [address] 1 02/02/2022 17:00:19 02/02/2022 18:17:03 Chronic hypertension complicating AND/OR reason for care during 05227840 O10.013 Z3A.33 [id number] [facility] [address],[place] [address] 1 02/02/2022 17:00:45 02/02/2022 18:50:24 Routine care 353525427 Z34.91 [id number] Messi Garcia MD [facility] [address],[place] [address] 1 02/09/2022 16:53:15 02/09/2022 17:49:24 Maternal obesity complicating , childbirth and the puerperium, antepartum 1976288341 07 O99.213 [id number] Messi Garcia MD [facility] [address],[place] [address] 1 02/09/2022 16:53:36 02/09/2022 18:15:36 Chronic hypertension complicating AND/OR reason for care during 75400554 O10.013 O99.213 Z3A.34 [id number] [facility] [address],[place] [address] 1 02/09/2022 16:54:04 02/09/2022 18:25:27 Routine care 043003832 Z34.91 [id number] Messi Garcia MD [facility] [address],[place] [address] 1 02/16/2022 17:00:10 02/16/2022 17:56:48 Chronic hypertension complicating AND/OR reason for care during 97955888 O10.013 O99.213 Z3A.34 [id number] MD Rhina Zheng [address],[place] [address] 1 02/16/2022 17:00:39 02/16/2022 18:07:43 Chronic hypertension complicating AND/OR reason for care during 30366895 O10.013 Z3A.35 O99.213 [id number] Peter Bryant CNM [facility] [address],[place] [address] 1 02/16/2022 17:01:03 02/16/2022 18:20:17 Routine care 933604711 Z34.91 [id number] Messi Garcia MD [facility] [address],[place] [address] 1 02/18/2022 15:23:24 02/18/2022 15:53:12 Reduced movement 768152736 O36.8199 [id number] [facility] [address],[place] [address] 1 02/23/2022 16:45:10 02/23/2022 18:18:35 Routine care 510247402 Z34.91 Large for gestation age fetus 577495802 O36.63X0 [id number] Messi Garcia MD [facility] [address],[place] [address] 1 02/23/2022 16:42:55 02/23/2022 17:12:22 Chronic hypertension complicating AND/OR reason for care during 37729330 O10.013 Z3A.35 O99.213 [id number] Messi Garcia MD [facility] [address],[place] [address] 1 02/23/2022 16:43:28 02/23/2022 17:56:35 Chronic hypertension complicating AND/OR reason for care during 21092149 O10.013 O99.213 Z3A.36 [id number] Pretty Cotton MD [facility] [address],[place] [address] 1 03/16/2022 14:15:55 03/17/2022 16:13:50 Pain in pelvis 60398720 R10.2 [id number] Messi Garcia MD [facility] [address],[place] [address] 1 03/17/2022 13:34:56 03/17/2022 14:02:57 Pain in pelvis 48062584 R10.2 this patient is a 25-year-ol d [...] face-to-fa ce discussing this very complex topic. [id number] Messi Garcia MD [facility] [address],[place] [address] 1 03/17/2022 13:35:31 03/18/2022 13:49:15 Pain in pelvis 26333253 R10.2 patient is a 27-year-ol d female [...] We spent over 20 minutes face-to-fa ce. 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 restart lexapro, to ed if any suicidal thoughts, reviewed se risks and benefits f/u 6 week med check if unavailabl e can do by phone Low grade squamous intraepithelial lesion on cervical Papanicolaou smear 2617439886 9105 R87.612 f/u pending pathology [id number] Peter Bryant [facility] [address],[place] [address] 1 08/16/2023 11:38:58 08/16/2023 13:55:15 Pain in pelvis 86135413 R10.2 also start pelvic floor pT Gynecologi c examination 07594596 Z01.419 [id number] Messi Garcia MD [facility] [address],[place] [address] 1 08/22/2023 11:28:17 08/22/2023 12:06:29 Pain in pelvis 15645036 R10.2 patient is a 27-year-ol d female [...] We spent over 20 minutes face-to-fa ce. [id number] Messi Garcia MD [facility] [address],[place] [address] 1 04/23/2024 09:16:05 04/23/2024 10:09:58 screening 094322086 Z36.87 O30.049 Z3A.01 [id number] Messi Garcia MD [facility] [address],[place] [address] 1 05/10/2024 15:16:46 05/10/2024 16:01:31 [id number] Peter Bryant [facility] [address],[place] [address] 1 05/10/2024 15:17:03 05/10/2024 16:51:44 Amenorrhea 09969985 Z31.89 Z31.83 Dichorioni c diamniotic twin 237718530 O30.049 reviewed US plan us at 12 weeksnipt at 10 weeks with labsawait pap until pp visitrevie wed precaution s and educationh x preeclamps ia without severe features last [id number] Messi Garcia MD [facility] [address],[place] [address] 1 05/21/2024 11:09:17 05/21/2024 12:05:12 Threatened miscarriage 87650006 O20.0 O30.041 Z3A.09 899007 Messi Garcia MD [facility] [address],[place] [address] 1 05/23/2024 17:26:08 05/24/2024 10:31:39 Threatened miscarriage 28836896 O20.0 O30.041 Z3A.09 [id number] Messi Garcia MD [facility] [address],[place] [address] 1 05/23/2024 18:31:17 05/24/2024 10:33:13 Pain in pelvis 77512624 R10.2 this patient is a 29-year-ol d [...] is to contact us if pain worsens. [id number] Messi Garcia MD [facility] [address],[place] [address] 1 05/29/2024 10:21:34 05/29/2024 11:12:31 condition affecting obstetrical care of mother 545813256 O36.8910 Z3A.10 [id number] Messi Garcia MD [facility] [address],[place] [address] 1 06/03/2024 16:41:37 06/04/2024 14:32:45 screening 240806860 Z36.82 Z3A.11 [id number] [facility] [address],[place] [address] 1 06/05/2024 14:45:02 06/06/2024 16:44:18 Nausea and vomiting 13785232 R11.2 Migraine 25397837 G43.90 9 Routine an tenatal care 532159710 Z34.91 Twin 55392266 O30.009 [id number] Messi Garcia MD [facility] [address],[place] [address] 1 06/12/2024 17:23:11 06/12/2024 18:08:31 Medical examination for suspected condition 657731287 Z03.72 Z3A.12 [id number] Messi Garcia MD [facility] [address],[place] [address] 1 07/01/2024 16:17:41 07/01/2024 17:36:13 Dichorionic diamniotic twin 404647052 O30.042 Z3A.15 [id number] [facility] [address],[place] [address] 1 07/03/2024 09:17:02 07/03/2024 09:55:31 Gestation period, 15 weeks 0345212 Z3A.15 [id number] ALEC WILKINSON MD [facility] [address],[place] [address] 07/08/2024 10:41:29 07/08/2024 11:38:56 Pruritic rash 23298937 L28.2 Dichorioni c diamniotic twin 809099174 O30.049 Chronic hy pertension complicating AND/OR reason for care during 46868533 O16.9 Gestation period, 16 weeks 19096225 Z3A.16 [id number] Messi Garcia MD [facility] [address],[place] [address] 1 07/12/2024 10:38:28 07/12/2024 11:50:01 [id number] [facility] [address],[place] [address] 1 07/31/2024 16:35:21 08/01/2024 09:45:58 Gestation period, 19 weeks 81519955 Z3A.19 Dichorioni c diamniotic twin 601939218 O30.049 Gastroesop hageal reflux disease 833875684 K21.9 [id number] [facility] [address],[place] [address] 1 08/09/2024 12:12:22 08/09/2024 14:11:25 Pain in pelvis 01680424 R10.2 start physical therapy [id number] Messi Garcia MD [facility] [address],[place] [address] 1 08/22/2024 12:06:07 08/22/2024 13:36:01 Dichorionic diamniotic twin 240329502 O30.042 O36.8120 Z3A.23 [id number] Peter Bryant [facility] [address],[place] [address] 1 08/28/2024 14:16:16 08/30/2024 10:02:02 [id number] Peter Bryant [facility] [address],[place] [address] 1 08/29/2024 09:57:22 08/30/2024 10:26:31 Gestation period, 24 weeks 321785282 Z3A.24 [id number] Messi Garcia MD [facility] [address],[place] [address] 1 09/18/2024 11:30:12 09/18/2024 12:33:22 Dichorionic diamniotic twin 966314161 O30.042 O99.891 Z3A.26 [id number] Peter Bryant [facility] [address],[place] [address] 1 09/27/2024 14:05:42 09/27/2024 14:47:06 Gestation period, 28 weeks 40424347 Z3A.28 [id number] Messi Garcia MD [facility] [address],[place] [address] 1 10/09/2024 13:51:09 10/09/2024 15:10:27 Dichorionic diamniotic twin 244462899 O30.043 O32.1XX2 Z36.2 Z3A.29 [id number] [facility] [address],[place] [address] 1 10/09/2024 13:51:24 10/09/2024 16:46:13 Gestation period, 29 weeks 26990383 Z3A.29 [id number] Messi Garcia MD [facility] [address],[place] [address] 1 10/22/2024 11:49:29 10/22/2024 13:06:50 Dichorionic diamniotic twin 867061389 O30.043 O24.410 O13.3 Z3A.31 [id number] Peter Bryant [facility] [address],[place] [address] 10/23/2024 14:57:19 10/27/2024 19:34:15 Twin 52116075 O30.009 [id number] Peter Bryant [facility] [address],[place] [address] 1 10/23/2024 14:57:44 10/23/2024 16:42:04 Gestation period, 31 weeks 96285437 Z3A.31 [id number] Messi Garcia MD [facility] [address],[place] [address] 1 10/30/2024 11:49:15 10/30/2024 12:53:32 Dichorionic diamniotic twin 715296532 O30.043 O24.410 O16.3 Z3A.32 [id number] Peter Bryant [facility] [address],[place] [address] 1 10/30/2024 11:49:41 10/30/2024 13:44:54 Gestation period, 32 weeks 1181108 Z3A.32 [id number] Messi Garcia MD [facility] [address],[place] [address] 1 11/06/2024 14:02:15 11/06/2024 15:08:32 Dichorionic diamniotic twin 380484194 O30.043 O24.414 O24.410 [id number] ALEC WILKINSON MD [facility] [address],[place] [address] 1 11/06/2024 14:02:26 11/06/2024 17:33:51 Chronic hypertension complicating AND/OR reason for care during 23848700 O10.919 [id number] Peter Bryant[facility] [address] [address] 11/06/2024 14:02:37 11/06/2024 16:26:16 Gestation period, 33 weeks 61973115 Z3A.33 Dichorioni c diamniotic twin 746547690 O30.043 Health Concerns Section Related Observation LastModified by Organization Detai ls LastModified Time None Recorded Concern Status LastModified by Organization Details LastModified Time None Recorded Advance Directives Directive N: Payers Insurance Date Sequence Insurance Name Policy Number Policy Steele Covered Member ID Steele Member ID Guarantor Name 05/10/2024 2 [facility] Chjc Xbb [id number] Yessica M Corzine 05/18/2021 1 [facility] [id number] Luis Antonio A Corzine [id number] Yessica M Corzine 06/15/2022 *SELF PAY* Me kartik M Corzine 08/31/2020 2 [facility] Luis Antonio Corzine [id number] Yessica M Corzine 08/31/2020 3 [facility] Jospeh Corzine [id number] Yessica M Corzine 09/04/2020 2 [facility] Luis Antonio Corzine [id number] Yessica M Corzine 09/23/2020 2 [facility] Jospeph Corzine [id number] Yessica M Corzine 11/11/2024 1 [facility] [id number] Luis Antonio A Corzine [id number] Yessica M Corzine 05/10/2024 3 [facility] [id number] Vxbn FB BC [id number] Yessica M Corzine OBGyn Episode Ob Episode Information Episode Created Date Number of Fetuses Patient Bloodtype Patient rh Status Prepregnancy Weight lbs Domestic Partner Domestic Partner Phone Father Name Hospice Clinical Marketer Status 12/25/19 20 1 CLOSED Fetus Data [...] Domestic Partner Domestic Partner Phone Father Name Hospice Clinical Marketer Status 12/25/19 20 1 CLOSED Fetus Data [...] Domestic Partner Domestic Partner Phone Father Name Hospice Clinical Marketer Status 09/11/19 22 1 A Positive 221 CLOSED Fetus Data First Name Last Name Admitted to NICU Weight (g) Sex Living Outcome Pediatric Complications Fetus ID Race Codes Race Delivery Type 4224.07 55 M true Full Term [id number] Vaginal Delivery Problems Problem Notes TSH WNL/A+/Ha1c/CBC WNL Problem Name Start Date End Date Resolution Snomed Code Not e Hypothyroidism 60014030 care: history of infertility 402089577 Group B Streptococcus carrier 3902865796254 bacteriuria Maternal obesity complicating , childbirth and the puerperium, antepartum 826740291246 BMI 39- ante testing at 37w 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 7839969 maia ellsworth , baseline labs, ASA Placenta circumvallata 4271532 Serial growth u/s Pre-eclampsia 383154924 Darren Calculation Initial Darren Date Initial Exam [...] Date Ultra Sound Latest Days Gestation 0 [email or web address] 09/13/2021 03/23/20 22 0 Pre- Flowsheet Flowsheet Date 09/10/2021 Mckinney Score Blood Edema Fundus Height Fundus Units Glucose Ketones Leukocytes Nitrite Labor Signs Protein Cervic Dilation Cervic Effacement Cervic Station neg none Type Weight in lbs Pre/Post Dialysis Refused Weight 225.353052594901 BP Diastolic BP Location Tested BP Systolic [...] Weight in lbs Pre/Post Dialysis Refused Weight 226.574927615834 BP Diastolic BP Location Tested BP Systolic [...] Weight in lbs Pre/Post Dialysis Refused Weight 224.855942359642 BP Diastolic BP Location Tested BP Systolic [...] Weight in lbs Pre/Post Dialysis Refused Weight 230.061847970151 BP Diastolic BP Location Tested BP Systolic [...] Weight in lbs Pre/Post Dialysis Refused Weight 234.387755021735 BP Diastolic BP Location Tested BP Systolic [...] Weight in lbs Pre/Post Dialysis Refused Weight 235.709019497430 BP Diastolic BP Location Tested BP Systolic [...] Weight in lbs Pre/Post Dialysis Refused Weight 239.490029553514 BP Diastolic BP Location Tested BP Systolic [...] Weight in lbs Pre/Post Dialysis Refused Weight 240.349262311008 BP Diastolic BP Location Tested BP Systolic [...] Weight in lbs Pre/Post Dialysis Refused Weight 242.790141920120 BP Diastolic BP Location Tested BP Systolic [...] Weight in lbs Pre/Post Dialysis Refused Weight 243.929540997234 BP Diastolic BP Location Tested BP Systolic [...] Weight in lbs Pre/Post Dialysis Refused Weight 242.694305094974 BP Diastolic BP Location Tested BP Systolic [...] Weight in lbs Pre/Post Dialysis Refused Weight 246.465694490106 BP Diastolic BP Location Tested BP Systolic [...] Weight in lbs Pre/Post Dialysis Refused Weight 246.898620259498 BP Diastolic BP Location Tested BP Systolic [...] Weight in lbs Pre/Post Dialysis Refused Weight 211.816338801187 BP Diastolic BP Location Tested BP Systolic [...] Weight in lbs Pre/Post Dialysis Refused Weight 211.001650863299 BP Diastolic BP Location Tested BP Systolic BP Type 86 L arm 126 sitting Fetus Heart Rate Present Fetus Movement Comments Flowsheet Date 04/08/2022 Mckinney Score Blood Edema Fundus Height Fundus Units Glucose Ketones Leukocytes Nitrite Labor Signs Protein Cervic Dilation Cervic Effacement Cervic Station Type Weight in lbs Pre/Post Dialysis Refused Weight 212.14360539247 BP Diastolic BP Location Tested BP Systolic BP Type 84 134 Fetus Heart Rate Present Fetus Movement Comments Flowsheet Date 05/27/2022 Mckinney Score Blood Edema Fundus Height Fundus Units Glucose Ketones Leukocytes Nitrite Labor Signs Protein Cervic Dilation Cervic Effacement Cervic Station Type Weight in lbs Pre/Post Dialysis Refused Weight 221.727766571927 BP Diastolic BP Location Tested BP Systolic [...] Estim ated Date of Delivery false Thalassemia (Romanian, Citizen Of [place], Mediterranean, Or Background): MCV < 80 false Neural Tube Defect (Meningomyelocele, Spina Bifi da, Or Anencephaly) false Congenital Heart Defect false Down Syndrome false Curt-Sachs (eg, Mandaen, Cajun, Tamazight-Daggett) f alse Yung Disease false Sickle Cell [...] 2 Induce d Regional-Ep idural 37 false MannyPaulieah DUNIA Maternal obesity, Gbs+ and pre eclampsia w/o severe features Discharge Information Feeding Method Contraceptive Method Maternal HG B and HCT Levels Breast Ob Episode Information Episode Created Date Number of Fetuses Patient Bloodtype Patient rh Status Prepregnancy Weight lbs Domestic Partner Domestic Partner Phone Father Name Hospice Clinical Marketer Status 06/05/19 25 2 A Positive 198 Gabriel Craigharvey OPEN Fetus Data First Name Last Name Admitted to NICU Weight (g) Sex Living Outcome Pediatric Complications Fetus ID Race Codes Race Delivery Type [id number] Problems Problem Notes Anatomy with MFM - 07/31/24 1 300 [facility] MF U/S & OV [facility] MFM 08/27/24 US only 1:00PM Problem Name Start Date End Date Resolution Snomed Code Not e care: history of infertility 075436739 Past history of shoulder dystocia 093140860 Large for gestation age fetus 410019844 less then 30 se c shoulder dystocia Past history of pre-eclampsia 104990425953291 bASA x2 Migraine 46149655 magnesium, Excedrin tension, sumatriptan 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 6543597 Palpitations 50855016 Holter monitor faxed to [facility] 07/29 Gestational diabetes mellitus 10/10/2024 03221694 Glucose tolerance test outside reference range 10/01/2024 774953928 10/01/2024 ecking blood sugars for 2 week instead for doing 3 hour Twin 60586996 38 wk deliveryantenatal testing @ 32wks per [facility] Scheduled rpt 08/27 us ONLY Darren Calculation Initial Darren Date Initial Exam Date Initial Exam Provider Initial Ultrasound Date Last Menstrual Period Date Ultra Sound Weeks Gestation 12/19/2024 04/23/2024 peter manny 04/23/2024 5 Eighteen To Twenty Week Darren [...] Weight in lbs Pre/Post Dialysis Refused Weight 207.583959681982 BP Diastolic BP Location Tested BP Systolic [...] disability paperwork. will plan on referral to [facility] for anatomy and history of [...] Type Weight in lbs Pre/Post Dialysis Refused 214.421596169047 BP Diastolic BP Location Tested BP Systolic [...] Weight in lbs Pre/Post Dialysis Refused Weight 216.813038668310 BP Diastolic BP Location Tested BP Systolic [...] No bleeding. Will send for anatomy at [facility]. Will measure for belly band today [...] Type Weight in lbs Pre/Post Dialysis Refused 220.017139619873 BP Diastolic BP Location Tested BP Systolic [...] Type Weight in lbs Pre/Post Dialysis Refused 227.879771543858 BP Diastolic BP Location Tested BP Systolic [...] Weight in lbs Pre/Post Dialysis Refused Weight 229.673580209011 BP Diastolic BP Location Tested BP Systolic BP Type 89 133 Fetus Heart Rate Present Fetus Movement A Yes B Yes Comments Patient is having pressure, contractions and swelling. Flowsheet Date 08/29/2024 Mckinney Score Blood Edema Fundus Height Fundus Units Glucose Ketones Leukocytes Nitrite Labor Signs Protein Cervic Dilation Cervic Effacement Cervic Station Type Weight in lbs Pre/Post Dialysis Refused 232.79945562669 BP Diastolic BP Location Tested BP Systolic [...] Type Weight in lbs Pre/Post Dialysis Refused 236.295101090196 BP Diastolic BP Location Tested BP Systolic [...] Type Weight in lbs Pre/Post Dialysis Refused 234.368427386593 BP Diastolic BP Location Tested BP Systolic BP Type 87 138 Fetus Heart Rate Present Fetus Movement A Yes B Yes Comments Patient is having pain and c ontractions and swelling. 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 for cycle analyst referral to fiordaliza, eduction and precautions f/u [...] Weight in lbs Pre/Post Dialysis Refused Weight 241.738118606945 BP Diastolic BP Location Tested BP Systolic BP Type 82 125 Fetus Heart Rate Present Fetus Movement Comments Flowsheet Date 10/23/2024 Mckinney Score Blood Edema Fundus Height Fundus Units Glucose Ketones Leukocytes Nitrite Labor Signs Protein Cervic Dilation Cervic Effacement Cervic Station neg trace Type Weight in lbs Pre/Post Dialysis Refused 241.01051896295 BP Diastolic BP Location Tested BP Systolic [...] Type Weight in lbs Pre/Post Dialysis Refused 248.150133383157 BP Diastolic BP Location Tested BP Systolic [...]
[2024-11-13 06:34] VITALS: BP 132/78; PULSE 97
[2024-11-13 06:47] LABS: OBXCEM ROM Plus Negative (Negative)
== END 2024-11-13 06:30 | disposition home or self-care (01) ==
LOC: ANHOBOP 06:30 → ANHLDR 06:32
PROVIDERS: Visit Provider Advanced Practice Midwife
DX: O42.90 Premature rupture of membranes, unspecified as to length of time between rupture and onset of labor, unspecified weeks of gestation (principal); Z3A.00 Weeks of gestation of pregnancy not specified
CPT/HCPCS: 59025; 84112

== ENCOUNTER 2024-11-14 14:43 | Observation (INO) | payer OTHER, SELFPAY ==
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
--- OUTSIDE RECORDS SUMMARY | 2024-11-14 16:34 | XMS_ITS | Clinical Summary ---
Author Organization [facility] Address [address] [facility] [address] [place] [address] Phone Care Team Providers Care Automotive Tire Worker Name Role Phone Manda Singh MD Unavailable [phone] Malik Cates MD Unavailable Ulices Marino MD Unavailable Yon Gutierrez MD Primary Care Provider Georgina Fnotenot QUALITY CONTROL DIRECTOR, DIGITAL COMPUTER OPERATOR Unavailable [phone] Allergies Active Allergy Reactions Criticality Noted Date [...] Transcribe Orders [facility] [address] [place] [address] Provider, Not On File Low back pain, [...] 97.5 kg (215 lb) 04/19/2023 8:07 AM RACEBOOK WRITER Height 165.1 cm (5' 5) 04/19/2023 8:07 AM RACEBOOK WRITER Body Mass Index 35.78 04/19/2023 8:07 AM RACEBOOK WRITER Plan of Treatment Health Maintenance Due Date [...] this topic Medical Devices Implanted Type Area Custom Applicator Device Identifier Shelf Expiration Date Model / Serial / Lot Tube Ventilation 5mm Caery Triune - [id number] Implanted:Qty: 1 on 11/05/2018 by [facility]eng [facility] at [facility] IMPLANT Left: Ear [employer] 04/06/2020 510-122 / [id number] / [id number] Description:Ear tubes came f rom the same package Tube Ventilation 5mm Carey Triune - [id number] Implanted:Qty: 1 on 11/05/2018 by Jordon Deng MD at [facility] IMPLANT Right: Ear [employer] 04/06/2020 510-122 / 510-122 / [id number] Description:Ear tubes came f rom the same package Insurance * Guarantor: [facility] Account Type Relation to Patient Date of Phone Billing Address Institutional Other [address] [place] [address] Care Teams Automotive Tire Worker Relationship Specialty Start Date End Date Yon Gutierrez MD [address] [address] PCP - General Family Medicine 06/23/23 Manda Singh MD Obstetrics & Gynecology 02/11/20 Malik Cates MD [address] [address] Consulting Physician Endocrinology 12/13/21 Ulices Marino MD [address] [address] Consulting Physician Colon and Rectal Surgery 07/06/22 Georgina Fontenot, QUALITY CONTROL DIRECTOR, DIGITAL COMPUTER OPERATOR [address] [place] [address] Nurse Practitioner Advanced Practice Nurse 09/25/24
--- OUTSIDE RECORDS SUMMARY | 2024-11-14 16:34 | XMS_ITS | Continuity of Care Document ---
Author Organization [facility] Address [address] [place] [address] [address] [place] [address] Phone Care Team Providers Care Administrative Assistant Name Role Phone Carol OD OD, [...] - Active Procedures Procedure Date OFFICE/OUTPATIENT VISIT, [facility] Comp cont lens eval No Charge Visit N/C Glasses Check Advance Directives Directive Yes / No Effective Date File Name No Information Encounters Encounter Description Practice Location Reason(s) For Visit Diagnoses Date Provider Providers Copied on Encounter [facility], [address] [place] [address] [address], [place], [place], [id number], tel:[phone] O[facility] CONSULT KENTRELL LOPEZ No Information 3 Carol OD Georgina. [address] [facility] [address], [address], [place], [place], [id number], [place]. tel:[phone] Referring Provider: Georgina Medina OD, [address], [place], [address] . tel:[phone] OFFICE/OUTPA TIENT VISIT, [facility], [address] [place] [address], [id number], tel:[phone] OPH CONSULT KENTRELL LOPEZ blurry vision (chief complaint) dry eye (chief complaint) Krystin's thyroiditisMyo roger, bilateralTear film insufficiency of bilateral lacrimal glandsOther vitreous opacities, bilateralCorne al neovasculariza tion of both eyes 2 Derheimer OD Georgina. [address], [address] [place] [address], [id number], [place]. tel:[phone] Referring Provider: Scooter Wihte, [address], [place], [address]. tel:[phone] [facility], [address] [place] [address], [id number], tel:[phone] [facility] KENTRELL LOPEZ No Information 6 Derheimer OD Georgina. [address], [address] [place] [address], [id number], [place]. tel:[phone] Referring Provider: Georgina Medina OD, [address], [place], [address] . tel:[phone] [facility], [address] [place] [address], [id number], tel:[phone] OPH CONSULT KENTRE[facility] LOPEZ blurry vision (chief complaint) Myopia, bilateral 6 Derheimer OD Georgina. [address], [place], [place], [id number], [place]. tel:[phone] Referring Provider: Georgina Medina OD, [address], [place], [address] . tel:[phone] [facility], [address] [place] [address], [id number], tel:[phone] OPH CONSULT KENTRELL LOPEZ No Information 1 Beth Cohenl. [address], [place], [place], [id number], [place]. tel:[phone] Family History Family Member Type Diagnosis Age [...] bilateral lacrimal glands Impression/Plan Related to Christa alod's thyroiditis Impression/Plan Related to Corne al neovascularization [...]
--- OUTSIDE RECORDS SUMMARY | 2024-11-14 16:35 | XMS_ITS | Clinical Summary ---
Author Organization [facility] Address [address] [place] [address] Care Team Providers Care Mainspring Reverse Winder Name Role Phone Scooter White DO Primary Care Provider [phone] Source Comments [facility],non-owned Affiliates and Associated Physician Practices is amultiple site organization consisting of ambulatory clinics and hospital sitesin [place], [place], [place] and [place]. This disclosure is being madepursuant to the Care Everywhere program and may not contain all information available regarding this patient. Last updated 18.[facility] Allergies Active Allergy Reactions Criticality Noted Date [...] Care Team Description 10/28/2024 Telephone [facility] [address] [place], [place] [address] Silvina León Appointment 09/24/2024 1:00 PM CDT - 09/24/2024 11:59 PM CDT Hospital Encounter [facility] [address] [place] [address] Derick Mcclendon MD HEAVY EQUIPMENT OPERATOR Discharge Disposition: Home or Self Care 08/27/2024 12:58 PM CDT - 08/27/2024 11:59 PM CDT Hospital Encounter [facility] [address] [place] [address] Christiano Tristan MD Discharge Disposition: Home or [...] on file Legal Sex Female 1:08 PM DRUM SAW OPERATOR Gender Identity Not on file Sexual [...] diamniotic twin in second trimester ([facility]) 28 weeks gestation of ([facility]) Supervision of high risk in second trimester ([facility]) Obesity affecting in second trimester, unspecified obesity type ([facility]) Encounter for follow-up ultrasound of anatomy ([facility]) Encounter for ultrasound to assess growth ([facility]) SONOGRAM - COMPLETE Routine 08/27/2024 1 2:52 PM CDT Dichorionic diamniotic twin in second trimester ([facility]) History of pre-eclampsia in prior , currently ([facility]) 24 weeks gestation of ([facility]) Supervision of high risk in second trimester ([facility]) from Last 3 Months Results * SONOGRAM - COMPLETE (09/24/2024 1:09 PM CDT) Only the most recent of2 resultswithin the time period is included. Linked Results Indication ======== DA/DC Twins Incomplete Anatomy Screen x2 History of Preeclampsia, Obesity in , Class II History ====== OB History 4. Para 3 [id number] 1. live 2011. Gest. age 41 w [...] 2 lb 14 oz EFW by Hadlock ([id number]-EO-WW-FL) EFW discordance 4.6 % appropriate Fetus B: Biometry BPD 69.2 mm 27w 6d 42% Hadlock HC 260.6 mm 28w 2d 39% Hadlock AC 252.3 mm 29w 3d 88% Hadlock Femur 51.1 mm 27w 3d 25% Hadlock Humerus 48.6 mm 28w 4d 68% Robinson HC / AC 1.03 Weight Calculation: EFW 1,242 g 69% Hadlock EFW (lb,oz) 2 lb 12 oz EFW by Hadlock (NTX-RA-TG-FL) EFW discordance 4.6 % appropriate Fetus A: [...] Thorax RVOT view. LVOT view. 3-vessel view. 0-xlkvyo-wmislmc view. Situs. Bicaval view. Ductal arch view. [...] view. RVOT view. LVOT view. 3-vessel view. 9-lzrlwa-peqrijv view. Situs. Aortic arch view. Bicaval view. [...] and begin weekly testing Coding ====== Procedures [id number]: US Preg Uterus Follow Up. x2 Credorax PACS Anatomical Region Laterality Modality Other 09/24/2024 1:09 PM CDT R Bert Garcia MD [facility] ORDERABLES Edited Result - Final from Last 3 Months Insurance [employer] CARE Member Subscriber Plan / Payer (Ef fective 2021-Present) Name:Yessica Mo Relation to Subscriber:Spouse Name:SOLO [place] Date of :1987 (Home) Address: [address] [place] [address] Payer ID:[id number] (NAIC) Type:PPO Address: [place] [id number] [place] [address] Care Teams Mainspring Reverse Winder Relationship Specialty Start Date End Date Scooter White DO PCP - General 03/16/22
--- OUTSIDE RECORDS SUMMARY | 2024-11-14 16:35 | XMS_ITS | Continuity of Care Document ---
Author Organization 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 Discussed plan. Not available 11/13/2024 15:59:16 Plan of Treatment Reminders Order Date Submit [...] available OB ROUTINE 2024 02:30P M Peter Palmetto, CNM Not available Not available Not available U/S OB BPP 2024 01:00P M ULTRASOUND Not available Not available Not available NST 2024 02:00P M NST SCHEDULE Not available Not available Not available OB ROUTINE 2024 02:30P M Peter GiordanoDUNIA harry Not available Not available Not available Lab None recorde d. Referral None recorde d. Procedures None recorde d. Surgeries None recorde d. Imaging None recorde d. Medication Orders None recorde d. Patient TargetsNo targets recorded. Patient InstructionsNo instructions recorded. Reason for Referral None Reported. Results Created Date Observation Date Name Description Value Unit Range Abnormal Flag Note LastModifiedBy Organization Detail LastModifiedTime 06/12/1906/12/2024 US, obste tric, limit ed No observ ation record ed. [email or web address] [place] [address], [place], [address], 06/12/2024 18:21:33 06/12/19 25 06/12/2024 US, obste tric, follo w-up No observ ation record ed. [email or web address] [address], [place], [address], 06/13/2024 18:51:30 07/01/19 25 07/01/2024 US, obste tric, limit ed No observ ation record ed. [email or web address] [place] [address], [place], [address], 07/01/2024 18:30:39 07/01/19 25 07/01/2024 US, obste tric, follo w-up No observ ation record ed. [address], [place], [address], 07/02/2024 23:15:06 07/13/19 25 07/12/2024 US, obste tric, limit ed No observ ation record ed. [email or web address] [address], [place], [address], 07/12/2024 17:50:02 08/09/19 25 08/08/2024 XR, chest , 1 view No observ ation record ed. [place] [id number] [facility] [address] [facility], [place], [address], 08/12/2024 15:18:19 08/10/19 25 07/31/2024 US, obste tric, follo w-up No observ ation record ed. [email or web address] [facility] [address] [place], [address], 08/20/2024 12:19:45 08/10/19 25 07/31/2024 US, obste tric, follo w-up No observ ation record ed. [email or web address] [facility] [address] [place], [address], 08/12/2024 22:49:50 08/20/19 25 08/08/2024 ilya r monit or No observ ation record ed. [place] [address], [place], [address], 08/21/2024 11:36:44 08/20/19 25 08/08/2024 ilya r monit or No observ ation record ed. [facility] ([facility] [address] [place] [address], [address], 08/28/2024 13:01:57 08/23/19 25 08/22/2024 US, obste tric, follo w-up No observ ation record ed. [email or web address] [address], [place], [address], 08/27/2024 13:26:37 08/23/19 25 08/22/2024 US, obste tric, limit ed No observ ation record ed. [email or web address] [address], [place], [address], 08/22/2024 13:56:22 08/23/19 25 08/22/2024 US, obste tric, limit ed No observ ation record ed. [email or web address] [address], [place], [address], 08/28/2024 22:09:02 08/28/19 25 08/27/2024 US, kidne y No observ ation record ed. [address] [facility] [address], [place], [address], 08/28/2024 18:26:00 08/28/19 25 08/27/2024 US, obste tric, follo w-up No observ ation record ed. [address] [facility] [address] [place], [address], 09/10/2024 06:50:18 08/28/19 25 08/27/2024 US, obste tric, follo w-up No observ ation record ed. [address] [facility] [address] [place], [address], 08/28/2024 18:26:00 09/04/19 25 09/03/2024 non-s tress test No observ ation record ed. [address] [facility] [address] [place] [address], [address], 09/16/2024 09:45:28 09/19/19 25 09/18/2024 US, obste tric, limit ed No observ ation record ed. [email or web address] [place] [address] [facility] [address], [place], [address], 09/18/2024 18:16:30 09/19/19 25 09/18/2024 US, obste tric, follo w-up No observ ation record ed. [email or web address] [address], [place], [address], 09/19/2024 14:32:58 09/25/19 25 09/24/2024 US, obste tric, follo w-up No observ ation record ed. [email or web address] [facility] [address] [place], [address], 09/25/2024 11:31:18 09/25/19 25 09/24/2024 US, obste tric, follo w-up No observ ation record ed. [email or web address] [facility] [address] [place], [address], 10/10/2024 11:06:25 10/10/19 25 10/09/2024 US, obste tric, limit ed No observ ation record ed. [facility] [address], [place], [address], 10/09/2024 17:38:41 10/10/19 25 10/09/2024 US, obste tric, follo w-up No observ ation record ed. [facility] [address], [place], [address], 10/09/2024 17:38:53 10/10/19 25 10/09/2024 US, obste tric, follo w-up No observ ation record ed. [address] [facility], [place], [address], 10/14/2024 10:19:44 10/23/19 25 10/22/2024 US, obste tric, follo w-up No observ ation record ed. [email or web address] [place] [address], [place], [address], 10/22/2024 17:16:15 10/23/19 25 10/22/2024 US, obste tric, follo w-up No observ ation record ed. [email or web address] [place] [address], [place], [address], 10/22/2024 17:16:31 10/23/1910/22/2024 US, obste tric, follo w-up No observ ation record ed. LANA [address], [place], [address], 10/29/2024 21:52:03 10/27/19 25 10/23/2024 non-s tress test No observ ation record ed. [email or web address] [place] [address], [place], [address], 10/26/2024 08:57:06 10/29/19 25 10/23/2024 non-s tress test No observ ation record ed. [email or web address] [place] [address], [place], [address], 10/28/2024 11:44:35 10/31/19 25 10/30/2024 US, obstmickey tric, bioph ysica l profi le + non-s tress test No observ ation record ed. [email or web address] [place] [address], [place], [address], 10/30/2024 13:28:58 10/31/19 25 10/30/2024 US, obstmickey tric, bioph ysica l profi le + non-s tress test No observ ation record ed. [email or web address] [place] [address], [place], [address], 10/30/2024 13:29:11 10/31/19 25 10/30/2024 US, obste tric, follo w-up No observ ation record ed. [address], [place], [address], 10/31/2024 18:00:31 11/07/19 25 11/06/2024 US, obste tric, bioph ysica l profi le + non-s tress test No observ ation record ed. [email or web address] [place] [address], [place], [address], 11/06/2024 17:48:20 11/07/19 25 11/06/2024 US, obste tric, bioph ysica l profi le + non-s tress test No observ ation record ed. [email or web address] [place] [address], [place], [address], 11/06/2024 17:48:32 11/07/19 25 11/06/2024 non-s tress test No observ ation record ed. [email or web address] [place] [address], [place], [address], 11/06/2024 17:22:40 11/07/19 25 11/06/2024 US, obste tric, bioph ysica l profi le + non-s tress test No observ ation record ed. [email or web address] [address], [place], [address], 11/11/2024 12:03:01 11/10/19 25 11/09/2024 imagi ng/di agnos tic resul t No observ ation record ed. [address], [place], [address], 11/11/2024 17:42:12 11/13/19 25 11/12/2024 non-s tress test No observ ation record ed. [email or web address] [place] [address], [place], [address], 11/14/2024 14:47:58 11/14/19 25 11/13/2024 non-s tress test No observ ation record ed. [email or web address] [place] [address], [place], [address], 11/14/2024 14:45:58 11/14/19 25 11/13/2024 US, obste tric, follo w-up No observ ation record ed. [email or web address] [place] [address], [place], [address], 11/13/2024 18:14:47 11/14/19 25 11/13/2024 US, obste tric, bioph ysica l profi le + non-s tress test No observ ation record ed. [email or web address] [place] [address], [place], [address], 11/13/2024 18:14:56 11/14/19 25 11/13/2024 US, obste tric, bioph ysica l profi le + non-s tress test No observ ation record ed. [email or web address] [place] [address], [place], [address], 11/13/2024 18:15:06 11/14/19 25 11/13/2024 US, obste tric, follo w-up No observ ation record ed. [email or web address] [place] [address], [place], [address], 11/13/2024 18:15:15 11/14/19 25 11/13/2024 non-s tress test No observ ation record ed. [email or web address] [place] [address], [place], [address], 11/13/2024 15:40:45 11/14/19 25 11/13/2024 US, obste tric, follo w-up No observ ation record ed. LANA [address], [place], [address], 11/14/2024 16:09:55 Result Notes None recorded. Problems Name Problem SNOMED Code Status Onset Date Resolution Date Notes Provider Name and Address Organization Details Recorded Time Pregnanc y 12774595 Completed 202106/09/2022 Kenyetta Solano null, [facility] 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 15:14:45 Hypothyr oidism 10056258 Completed Eli Brizuela l [facility] 3 15:14:45 Antenata l care: history of infertil ity 865138810 Completed Eli Brizuela l [facility] 3 15:14:46 Group B Streptoc occus carrier 4697487578 103 Completed bacteriu berta Eli Chata alvarado [facility] 3 15:14:45 Maternal obesity complica ting pregnanc y, childbir th and the puerperi um, antepart um 3895873671 07 Completed BMI 39- ante testing at 37w Elikristin alvarado [facility] 3 15:14:46 Chronic hyperten allison in obstetri c context 0476641 Completed procardi a , baseline labs, ASA Eli alvarado [facility] 3 15:14:46 Placenta circumva llata 6170929 Completed Serial growth u/s Eli Brizuela l [facility] 3 15:14:45 Pre-ecla mpsia 123993925 Completed Eli alvarado [facility] 3 15:14:45 Abnormal cervical Papanico laou smear 463522993 Active 2023 3 lgsil HPV high risk 1 ascus HPV high risk Kenyetta Solano [facility], [facility] 4 11:59:57 Herpes simplex 82348284 Active 2024 Kenyetta Solano tiffanie, [facility] 5 16:40:53 Human papillom a virus infectio n 517352542 Active 2024 Kenyetta Solano tiffanie, [facility] 5 16:40:59 Endometr iosis (clinica l) 409221826 Active 2024 Kenyetta Solano [facility], [facility] 5 16:41:22 Pregnanc y 20298125 Active 2024 Kenyetta Solano [facility], [facility] 5 16:03:06 Twin pregnanc y 14904239 Active 38 wk delivery antenata l testing @ 32wks per [facility] Schedule d rpt 08/27 ONLY Tabatha moreno, [facility] 5 12:20:16 Antenata l care: history of infertil ity 874976583 Active Peter Bryant CNM [address], [place], [address], [facility] 5 13:48:37 Past pregnanc y history of pre-ecla mpsia 7887801622 70244 Active bASA x2 Tabatha Flanagan [facility], [facility] 5 17:10:40 Large for gestatio n age fetus 501669563 Active less then 30 sec shoulder dystocia Peter Bryant CNM [address], [place], [address], [facility] 5 13:51:09 Past pregnanc y history of shoulder dystocia 250503432 Active Peter Bryant CNM [address], [place], [address], [place] [facility] 5 13:52:04 Chronic hyperten allison in obstetri c context 8689740 Active Peter Bryant, NILSON [address], [place], [address], [facility] 5 13:52:55 Palpitat ions 53129197 Active Holter monitor faxed to [facility] Cardiol[facility] gy 07/29 Tabatha Green null, [facility] 5 14:05:23 Palpitat ions 77518836 Active Holter monitor faxed to [facility] 07/29 Tabatha Green null, [facility] 5 14:05:23 Migraine 23976147 Active magnesiu m, Excedrin tension, sumatrip tatum Tabatha Green null, [facility] 17:11:50 Migraine 09662838 Active magnesiu m, Excedrin tension, sumatrip tatum Tabatha Green null, [facility] 5 17:11:50 Glucose toleranc e test outside referenc e range 518953385 Active 2024 checking blood sugars for 2 week instead for doing 3 hour Kenyetta moreno, [facility] 17:53:21 Glucose toleranc e test outside referenc e range 495422751 Active 2024 checking blood sugars for 2 week instead for doing 3 hour Kenyetta Solano [facility], [facility] 17:53:21 Gestatio nal diabetes mellitus 54204879 Active 2024 Kenyetta moreno, [facility] 5 11:47:25 Gestatio nal diabetes mellitus 11256369 Active 2024 Kenyetta moreno, [facility] 5 11:47:25 Finding of general energy 312465774 Completed 201807/28/2020 Fatigue; Recorded Elsewher e: No Locat ion: Chaya arevalo [facility] S ource: EHR Lobby Attendant mark: N Practi ce ID: [id number] Emmanuel lable Time: 10:45:00 AM Messi Garcia MD [address], [place], [address], [facility] 15:00:00 Acute vaginiti s 99121920 Completed 201807/28/2020 Vaginiti s;Record ed Elsewher e: No Locat ion: Chaya arevalo [facility] S ource: EHR Lobby Attendant mark: N Practi ce ID: [id number] Emmanuel lable Time: 10:45:00 AM Messi Garcia MD [address], [place], [address], [facility] 15:00:04 Removal of intraute rine device Completed 201807/28/2020 Encounte r for removal of IUD;Earl rded Elsewher e: No [facility] E[facility] Lobby Attendant mark: N Practi ce ID: 0001 Emmanuel lable Time: 10:45:00 AM Messi Garcia MD [address], [place], [address], [facility] 15:00:08 Problem Notes None recorded. Procedures Surgical History Date Name Laterality Status Provider Name and Address Organization Details Recorded Time Laparoscopy completed Kenyetta Solano [facility] 05/10/2024 16:42:07 Date of Last Pap Smear completed Kenyetta Soalno [facility] 08/16/2023 12:00:08 024 procedure on ear completed Kenyetta [facility] 08/16/2023 12:01:09 023 Colposcopy completed Peter Bryant CNM [address], [place], [address], [facility] 06/15/2022 16:59:00 023 Colposcopy completed [facility] 06/15/2022 16:38:21 023 Colposcopy completed [facility] 06/15/2022 16:38:49 022 intrauterine artificial insemination completed [facility] 06/26/2021 09:20:58 021 intrauterine artificial insemination completed [facility] 06/17/2021 12:15:01 021 intrauterine artificial insemination completed [facility] 06/17/2021 12:14:55 021 intrauterine artificial insemination completed [facility] 06/17/2021 12:14:45 021 intrauterine artificial insemination completed [facility] 06/17/2021 12:14:39 021 LAPAROSCOPY, DIAGNOSTIC (SURG) completed [facility] 08/19/2020 14:04:12 020 completed [facility] 10/01/2020 16:23:53 020 Colonoscopy completed [facility] 01/22/2021 10:59:09 019 procedure on neck completed [facility] 12/25/2019 11:25:51 019 hemorrhoidectomy completed [facility] 12/25/2019 11:24:57 016 cholecystectomy completed [facility] 07/16/2021 17:21:15 010 Appendectomy completed [facility] 12/25/2019 11:24:44 Imaging Results None recorded. Procedure Notes None recorded. Medical Equipment None Reported. Allergies Allergen ID Allergen Name Allergen Category Reaction Reaction Severity Criticality Documentation Date Start Date Code Code System Note Provider Name and Address Organization Details Recorded Time 29225 prednison e medicatio n hives Not available Not available 07/03/2024 8640 RxNorm Peter Bryant, DUNIA [address], [place], [address] [place] [address], [facility] 09:52:22 Medications Name Sig Start Date [...] Pregnyl 10,000 unit intramusc ular solution Inject 89546 units every day by intramus cular route [...] Prescrib ed Ban e: Yes Loca tion: [facility] odify By: [email or web address] z Encoun ter DateTime [...] completed Not Available Not Available Not Available butjazzy alvarado-acetkathia nophen-ca ffeine 50 mg-300 mg-40 mg capsule [...] VAIL INJECTIO N INTO RIGHT HIP LOT [id number] EXP 12/2021 Not Available Not Available Not [...] Not Available Vitals Date Recorded Body weight Systolic And Diastolic Provider Name and Address Organization Details Last Updated DateTime 11/13/2024 195790.68442 g 127/89 mm[Hg] Sun Babcock [facility] 11/13/2024 15:38:06 Social History Question Answer Notes LastModified by Organizat ion Details LastModified Time Tobacco Smoking Status Never Smoker Althea Hloguin [facility] 06/15/2022 15:31:26 Do You Have An Advance Directive? No Information n ot available 07/28/2020 If You Are , What Was Your Level Of Alcohol Consumption Prior To ? None [email or web address] Information not available 06/15/2022 Are You Blind [...] Type Of Diet Are You Following? REGULAR [email or web address] Information n ot available 08/19/2020 What Is The Highest Grade Or Level Of School You Have Completed Or The Highest Degree You Have Received? [id number] Information not available 07/28/2020 Are There Any Guns Present In Your Home? No Information not available 07/28/2020 What Was The Date Of Your Most Recent Tobacco Screening? 10/23/2024 [email or web address] Information not available 10/23/2024 Have You Ever Been Counseled For Unhealthy Alcohol Use? No [email or web address] Information not available 06/15/2022 Do You Use Protection During Sex? No Information not available 07/28/2020 Do You Use Your Seat Belt Or Car Seat Routinely? Yes Information not available 07/28/2020 Do You Have Smoke And Carbon Monoxide Detectors In Your Home? Yes Information not available 07/28/2020 How Much Tobacco Do You Smoke? No [email or web address] Information not available 12/25/2019 Do You Use Sunscreen Routinely? Yes Information not available 07/28/2020 Have You Used IV Drugs? No Information not available 07/28/2020 Do You Have Difficulty Walking Or Climbing Stairs? No [email or web address] Information not available 06/15/2022 Sex: Unknown Functional Status Question Answer Note LastModified by Organizat ion Details LastModified Time Do you use any illicit or recreational drugs? No Information not available 07/28/2020 Do you or have you ever used any other forms of tobacco or nicotine? No Information not available 06/15/2022 What is your level of alcohol consumption? Occasional [email or web address] Information not available 12/25/2019 Do you or have you ever used smokeless tobacco? Never used smokeless tobacco [email or web address] Information not available 06/15/2022 Are you able to walk? YESWOREST [email or web address] Information not available 08/19/2020 Are you able to care for yourself? 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 No [email or web address] Information not available 06/15/2022 Do you or have you ever used e-cigarettes or vape? Never used electronic cigarettes [email or web address] Information not available 06/15/2022 What is your exercise level? Occasional [email or web address] Information not available 12/25/2019 Mental Status Question Answer Note LastModified by Organization D etails LastModified Time Do you feel stressed (tense, restless, nervous, or anxious, or unable to sleep at night)? [id number] [email or web address] Information not available 08/19/2020 Family History Relationship Description Onset Age of this Age Resolved Age Notes LastModified by Organization Details LastModified Time Maternal Grandmother Disorder of thyroid gland [email or web address] Not available 01/26 16:14:56 Mother Female infertility [email or web address] Not available 08/2024 13:51:15 Mother Disorder of thyroid gland [email or web address] Not available 01/26 16:14:56 Father Malignant tumor of pancreas Not available 2024 13:51:15 Brother Malignant neoplasm of prostate [email or web address] Not available 2024 13:51:15 Paternal Grandmother Malignant tumor of breast [email or web address] Not available 01/26 16:14:56 Paternal Grandmother Malignant neoplasm of lung [email or web address] Not available 01/26 16:14:56 Medical History Condition [...] SNOMED-CT Code Diagnosis ICD10 Code Diagnosis Note [id number] Messi Garcia MD [place] [address] [address] 10/22/2024 11:49:29 10/22/2024 13:06:50 Dichorionic diamniotic twin 087852374 O30.043 O24.410 O13.3 Z3A.31 [id number] [facility] [address],[place] [address] 10/23/2024 14:57:19 10/27/2024 19:34:15 Twin [id number] O30.009 [id number] Peter Bryant [facility] [address],[place] [address] 10/23/2024 14:57:44 10/23/2024 16:42:04 Gestation period, 31 weeks 81936607 Z3A.31 [id number] Messi Garcia MD [facility] [address],[place] [address] 10/30/2024 11:49:15 10/30/2024 12:53:32 Dichorionic diamniotic twin 601423987 O30.043 O24.410 O16.3 Z3A.32 [id number] [facility] [address],[place] [address] 10/30/2024 11:49:41 10/30/2024 13:44:54 Gestation period, 32 weeks 3111955 Z3A.32 [id number] Messi Garcia MD [facility] [address],[place] [address] 11/06/2024 14:02:15 11/06/2024 15:08:32 Dichorionic diamniotic twin 185751689 O30.043 O24.414 O24.410 [id number] ALEC WILKINSON MD [facility] [address],[place] [address] 11/06/2024 14:02:26 11/06/2024 17:33:51 Chronic hypertension complicating AND/OR reason for care during 75805365 O10.919 [id number] [facility] [address],[place] [address] 11/06/2024 14:02:37 11/06/2024 16:26:16 Gestation period, 33 weeks 68909249 Z3A.33 Dichorioni c diamniotic twin 495377907 O30.043 [id number] Messi Garcia MD [place] [address],[place] [address] 11/13/2024 13:58:59 11/13/2024 15:10:18 Dichorionic diamniotic twin 497526752 O30.043 O24.410 O16.3 O99.213 Z3A.34 [id number] Peter Bryant [facility] [address],[place] [address] 11/13/2024 13:59:12 11/13/2024 15:41:29 Chronic hypertension complicating AND/OR reason for care during 50665868 O10.919 [id number] Peter Bryant [facility] [address],[place] [address] 11/13/2024 13:59:25 11/13/2024 16:05:11 Gestation period, 34 weeks 50101793 Z3A.34 Health Concerns Section Related Observation LastModified by Organization Detai ls LastModified Time None Recorded Concern Status LastModified by Organization Details LastModified Time None Recorded Payers Encounter Date Sequence Insurance Name Policy Number Policy Steele Covered Member ID Steele Member ID Guarantor Name 11/13/2024 1 [facility] [id number] Luis Antonio Mo [id number] Yessica Mo OBGyn Episode Ob Episode Information Episode Created Date Number of Fetuses Patient Bloodtype Patient rh Status Prepregnancy Weight lbs Domestic Partner Domestic Partner Phone Father Name Drafting Clerk Status 06/05/19 25 2 A Positive 198 Gabriel Mo OPEN Fetus Data First Name Last Name Admitted to NICU Weight (g) Sex Living Outcome Pediatric Complications Fetus ID Race Codes Race Delivery Type [id number] Problems Problem Notes Anatomy with MFM - 07/31/24 1 300 [facility] U/S & OV [facility] 08/27/24 US only 1:00PM Problem Name Start Date End Date Resolution Snomed Code Not e care: history of infertility [id number] Past history of shoulder dystocia [id number] Large for gestation age fetus [id number] less then 30 se c shoulder dystocia Past history of pre-eclampsia [id number] bASA x2 Migraine 73384282 magnesium, Excedrin tension, sumatriptan 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 [id number] Palpitations [id number] Holter monitor faxed to [facility] 07/29 Gestational diabetes mellitus 10/10/2024 61101595 Glucose tolerance test outside reference range 10/01/2024 [id number] 10/01/2024 ecking blood sugars for 2 week instead for doing 3 hour Twin 08595170 38 wk deliveryantenatal testing @ 32wks per [facility] Scheduled rpt 08/27 us ONLY Darren [...] Weight in lbs Pre/Post Dialysis Refused Weight 207.101386190993 BP Diastolic BP Location Tested BP Systolic [...] disability paperwork. will plan on referral to [facility] for anatomy and history of HTN/preeclampsia, [...] Type Weight in lbs Pre/Post Dialysis Refused 214.470840701679 BP Diastolic BP Location Tested BP Systolic [...] Weight in lbs Pre/Post Dialysis Refused Weight 216.563129145731 BP Diastolic BP Location Tested BP Systolic [...] No bleeding. Will send for anatomy at [facility]. Will measure for belly band today [...] Type Weight in lbs Pre/Post Dialysis Refused 220.831730684186 BP Diastolic BP Location Tested BP Systolic [...] Type Weight in lbs Pre/Post Dialysis Refused 227.777735389462 BP Diastolic BP Location Tested BP Systolic [...] Weight in lbs Pre/Post Dialysis Refused Weight 229.453034454492 BP Diastolic BP Location Tested BP Systolic BP Type 89 133 Fetus Heart Rate Present Fetus Movement A Yes B Yes Comments Patient is having pressure, contractions and swelling. Flowsheet Date 08/29/2024 Mckinney Score Blood Edema Fundus Height Fundus Units Glucose Ketones Leukocytes Nitrite Labor Signs Protein Cervic Dilation Cervic Effacement Cervic Station Type Weight in lbs Pre/Post Dialysis Refused 232.93085621436 BP Diastolic BP Location Tested BP Systolic [...] Type Weight in lbs Pre/Post Dialysis Refused 236.718911162663 BP Diastolic BP Location Tested BP Systolic [...] Type Weight in lbs Pre/Post Dialysis Refused 234.648229949529 BP Diastolic BP Location Tested BP Systolic BP Type 87 138 Fetus Heart Rate Present Fetus Movement A Yes B Yes Comments Patient is having pain and c ontractions and swelling. 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 for manager sql referral to [facility], eduction and precautions f/u [...] Weight in lbs Pre/Post Dialysis Refused Weight 241.364083341937 BP Diastolic BP Location Tested BP Systolic BP Type 82 125 Fetus Heart Rate Present Fetus Movement Comments Flowsheet Date 10/23/2024 Mckinney Score Blood Edema Fundus Height Fundus Units Glucose Ketones Leukocytes Nitrite Labor Signs Protein Cervic Dilation Cervic Effacement Cervic Station neg trace Type Weight in lbs Pre/Post Dialysis Refused 241.86853924602 BP Diastolic BP Location Tested BP Systolic [...] Type Weight in lbs Pre/Post Dialysis Refused 248.653559457216 BP Diastolic BP Location Tested BP Systolic [...] medication education and precautions f/u 1 week Flowsheet Date 11/13/2024 Mckinney Score Blood Edema Fundus Height Fundus Units Glucose Ketones Leukocytes Nitrite Labor Signs Protein Cervic Dilation Cervic Effacement Cervic Station Type Weight in lbs Pre/Post Dialysis Refused BP Diastolic BP Location Tested BP Systolic BP Type Fetus Heart Rate Present Fetus Movement Comments Flowsheet Date 11/13/2024 Mckinney Score Blood Edema Fundus Height Fundus Units Glucose Ketones Leukocytes Nitrite Labor Signs Protein Cervic Dilation Cervic Effacement Cervic Station Type Weight in lbs Pre/Post Dialysis Refused BP Diastolic BP Location Tested BP Systolic BP Type Fetus Heart Rate Present Fetus Movement Comments Flowsheet Date 11/13/2024 Mckinney Score Blood Edema Fundus Height Fundus Units Glucose Ketones Leukocytes Nitrite Labor Signs Protein Cervic Dilation Cervic Effacement Cervic Station Type Weight in lbs Pre/Post Dialysis Refused 238.743712518775 BP Diastolic BP Location Tested BP Systolic BP Type 89 L arm 127 sitting Fetus Heart Rate Present Fetus Movement A Yes B Yes Comments NST R x 2, +FM uncomofortabl e, precautions and education f/u one weekcervix 4cm soft -3 efw 75%, baby b 58% continue meds until IOL Menstrual History Last Menstrual Date Menses Monthly On Bcp Conception Prior Menses Frequency Hcg Plus Date Menarche Onset Age Delivery Information Delivery Date Delivery Type Labor Anesthesia Weeks Gestation Incision Type Labor Labor Length Hrs Delivered By Post Complications Tubal Sterilization Discharge Date Comments Discharge Information Feeding Method Contraceptive Method Maternal HG B and HCT Levels
--- OUTSIDE RECORDS SUMMARY | 2024-11-14 16:35 | XMS_ITS | Encounter Summary ---
Author Organization [facility] Address [address] [place] [address] Phone Care Team Providers Care Elevator Repairer Apprentice Name Role Phone Manda Singh MD Unavailable [phone] Robby Torres Primary Care Provider [phone] Scooter White DO Primary Care Provider Malik Cates MD Unavailable Ulices Marino MD Unavailable Yon Gutierrez MD Primary Care Provider Georgina Fontenot APRN, [facility] Unavailable [phone] Encounter Details Date Type Department Care Team (Late st Contact Info) Description 04/09/2020 Telephone [facility] [address] [address] [address] Saud Dalton MD [address] [place] [phone] Social History Tobacco Use Types Packs/Day [...] COVID-19? No / Unsure 03/20/2020 6:06 AM RN TRANSPLANT documented as of this encounter Miscellaneous Notes * Telephone Encounter - Mahnaz Alaniz - 04/09/2020 2:50 PM CST Patient no showed her appointment, left voice message to call the office to reschedule. Sent out a no show letter. TRANSPLANT documented in this encounter Plan of Treatment Not on file documented as of this encounter Visit Diagnoses Not on filedocumented in this encounter Additional Health Concerns Assessment Noted Time PHQ-9 Depression Total Score: 0 02/11/20 20 12:57 PM CDT documented as of this encounter Care Teams Elevator Repairer Apprentice Relationship Specialty Start Date End Date Robby Torres [address] [place] [address] PCP - General Family Medicine 02/11/20 03/16/21 Scooter White DO [address] [place] [address] [place] [address] PCP - General Internal Medicine 03/17/21 06/22/23 Yon Gutierrez MD [address] [place] [address] [address] PCP - General Family Medicine 06/23/23 Manda Singh MD Obstetrics & Gynecology 02/11/20 Malik Cates MD #[address] [address] Consulting Physician Endocrinology 12/13/21 Uilces Marino MD #[address] [address] Consulting Physician Colon and Rectal Surgery 07/06/22 Georgina Fontenot APRN, LOADING DOCK HAND [address] [place] [address] Nurse Practitioner Advanced Practice Nurse 09/25/24 documented as of this encounter
--- OUTSIDE RECORDS SUMMARY | 2024-11-14 16:35 | XMS_ITS | Encounter Summary ---
Author Organization [facility] Address [address] [place] [address] Phone Care Team Providers Care Integrated Circuit Design Engineer Name Role Phone Manda Singh MD Unavailable [phone] Scooter White DO Primary Care Provider Malik Cates MD Unavailable Ulices Marino MD Unavailable Yon Gutierrez MD Primary Care Provider Georgina Fontenot APRN, FACTORY MAINTENANCE TECHNICIAN Unavailable [phone] Encounter Details Date Type Department Care Team (Late st Contact Info) Description 07/26/[address] [facility] [address] [place] [address] Edita Garza, TRUNG, RETAIL PROJECT MERCHANDISER [address] [place] [address] Encounter for pre-employment examination Social [...] >=1.1 AI 07/26/2021 10:00 PM CDT [facility] Blood No Phlebotomy Charged / Unknown 07/26/2021 9:00 AM CDT 07/26/2021 2:15 PM CDT Narrative [facility] - 07/26/2021 10:00 PM CDT <= 0.8 Negative. No detectable VZV IgG antibody. 0.9 - 1.0 Equivocal >=1.1 Positive Antibody testing was performed by multiplex flow immunoassay on the BioPlex platform. Edita L Behrends STAMP MAKER, RETAIL PROJECT MERCHANDISER IMMUNOLOGY ORDERABL ES Final Result Performing Organization Address [facility] de Phone Number [facility] [address] [place] [address], [place] * (ABNORMAL) RUBEOLA (MEASLES) IGG (07/26/2021 9:00 AM CDT) MEASLES AB IGG 0.7(L) >=1.1 AI 07/26/2021 10:00 PM CDT [facility] Blood No Phlebotomy Charged / Unknown 07/26/2021 9:00 AM CDT 07/26/2021 2:15 PM CDT Narrative [facility] - 07/26/2021 10:00 PM CDT <= 0.8 Negative. No detectable Measles IgG antibody. 0.9 - 1.0 Equivocal >=1.1 Positive Antibody testing was performed by multiplex flow immunoassay on the BioPlex platform. Edita L Behrends STAMP MAKER, RETAIL PROJECT MERCHANDISER IMMUNOLOGY ORDERABL ES Final Result Performing Organization Address [facility] de Phone Number [facility] [address] [place] [address], [place] * RUBELLA IMMUNITY IGG (07/26/2021 9:00 AM CDT) RUBELLA IMMUNITY Immune Immune, Invalid 07/26/2021 10:00 PM CDT [facility] Blood No Phlebotomy Charged / Unknown 07/26/2021 9:00 AM CDT 07/26/2021 2:15 PM CDT Narrative [facility] - 07/26/2021 10:00 PM CDT Antibody testing was performed by multiplex flow immunoassay on the BioPlex platform. us Edita Garza STAMP MAKER, RETAIL PROJECT MERCHANDISER CHEMISTRY ORDERABLE S Final Result Performing Organization Address [facility] Co de Phone Number [facility] [address] [place] [address], [place] * MUMPS IGG (07/26/2021 9:00 AM CDT) Mumps Ab IgG 1.2 >=1.1 AI 07/26/2021 10:00 PM CDT [facility] Blood No Phlebotomy Charged / Unknown 07/26/2021 9:00 AM CDT 07/26/2021 2:15 PM CDT Narrative [facility] - 07/26/2021 10:00 PM CDT <= 0.8 Negative. No detectable Mumps IgG antibody. 0.9 - 1.0 Equivocal >=1.1 Positive Antibody testing was performed by multiplex flow immunoassay on the BioPlex platform. us Edita Garza STAMP MAKER, RETAIL PROJECT MERCHANDISER IMMUNOLOGY ORDERABL ES Final Result Performing Organization Address [facility] Co de Phone Number [facility] [address] [place] [address], [place] * QUANTIFERON-TB GOLD PLUS (07/26/2021 9:00 AM CDT) NIL CONTROL 0.04 <8.01 IU/mL 07/28/2021 1:01 PM CDT [facility] TB ANTIGEN 1 0.00 <0.35 IU/mL 07/28/2021 1:01 PM CDT [facility] TB ANTIGEN 2 0.00 <0.35 IU/mL 07/28/2021 1:01 PM CDT [facility] MITOGEN CONTROL 9.64 >0.49 IU/mL 07/29/19 1:01 PM CDT [facility] INTEPRETATION TB NEGATIVE NEGATIVE, NEGATIVE (TB antigen response less than 25% of internal negative control value) 07/28/2021 1:01 PM CDT [facility] Comment:No immune response t o Mycobacterium tuberculosis antigens was noted. M. tuberculosis infection unlikely. Blood No Phlebotomy Charged / Unknown 07/26/2021 9:00 AM CDT 07/26/2021 2:15 PM CDT Narrative [facility] - 07/28/2021 1:01 PM CDT A POSITIVE [...] immunocompromised individuals. https://www.cdc.gov/tb/publications/guidelines/testing.htm us Edita L Behrends STAMP MAKER, RETAIL PROJECT MERCHANDISER IMMUNOLOGY ORDERABL ES Final Result Performing Organization Address [facility] Co de Phone Number [facility] [address] [place] [address], [place] * HEPATITIS B SURFACE ANTIBODY (HBSAB) (07/26/2021 9:00 AM CDT) HEPATITIS B SURFACE ANTIBODY 8.33 mIU/mL [facility] [id number] B 07/27/2021 12:02 AM CDT [facility] Comment: Grayzone Range: >=8.00 to <=12.00 The immune status of the individual should be further assessed considering other factors, such as clinical status, follow-up testing, associated risk factors and the use of additional diagnostic information. Blood No Phlebotomy Charged / Unknown 07/26/2021 9:00 AM CDT 07/26/2021 2:15 PM CDT us Edita Garza STAMP MAKER, RETAIL PROJECT MERCHANDISER CHEMISTRY ORDERABLE S Final Result Performing Organization Address [facility] Co de Phone Number [facility] [address] [place] [address], [place] documented in this encounter Visit Diagnoses Diagnosis Encounter for pre-employment examination Health examination of defined subpopulation documented in this encounter Additional Health Concerns Assessment Noted Time PHQ-9 Depression Total Score: 0 02/11/20 20 12:57 PM CDT documented as of this encounter Care Teams Integrated Circuit Design Engineer Relationship Specialty Start Date End Date Scooter White DO [address] [place] [address] [place] [address] PCP - General Internal Medicine 03/17/21 06/22/23 Yon Gutierrez MD [address] [place] [address] [address] PCP - General Family Medicine 06/23/23 Manda Singh MD Obstetrics & Gynecology 02/11/20 Malik Cates MD #[address] [address] Consulting Physician Endocrinology 12/13/21 Ulices Marino MD #[address] [address] Consulting Physician Colon and Rectal Surgery 07/06/22 Georgina Fontenot APRN, FACTORY MAINTENANCE TECHNICIAN [address] [place] [address] Nurse Practitioner Advanced Practice Nurse 09/25/24 documented as of this encounter
--- OUTSIDE RECORDS SUMMARY | 2024-11-14 16:35 | XMS_ITS | Encounter Summary ---
Author Organization [facility] Address [address] [place] [address] Phone Care Team Providers Care Bank Compliance Officer Name Role Phone Manda Singh MD Unavailable Robby Torres Primary Care Provider [phone] Scooter White DO Primary Care Provider Malik Cates MD Unavailable Ulices Marino MD Unavailable Yon Gutierrez MD Primary Care Provider Georgina Fontenot APRN, [facility] Unavailable [phone] Encounter Details Date Type Department Care Team (Late st Contact Info) Description 03/09/2020 [facility]cribe [facility] [address] [place] [address] Walter Blake MD [address] [place] [address] Preop testing (Primary Dx) Social History Tobacco [...] COVID-19? Unable to assess 03/10/2020 1:32 PM CAR GREASER documented as of this encounter Plan of Treatment Not on file documented as of this encounter Visit Diagnoses Diagnosis Preop testing- Primary Preoperative examination, unspecified documented in this encounter Additional Health Concerns Infection Onset Date Last Indicated Resolved Time COVID - 19 03/10/2020 03/10/2020 03/16/2020 11:4 0 AM CAR GREASER Assessment Noted Time PHQ-9 Depression Total Score: 0 02/11/20 20 12:57 PM CDT documented as of this encounter Care Teams Bank Compliance Officer Relationship Specialty Start Date End Date Robby Torres [address] [place] [address] PCP - General Family Medicine 02/11/20 03/16/21 Scooter White DO [facility] [place] [address] PCP - General Internal Medicine 03/17/21 06/22/23 Yon Gutierrez MD 2 [facility] , [facility] [address] [place] [address] PCP - General Family Medicine 06/23/23 Manda Singh MD Obstetrics & Gynecology 02/11/20 Malik Cates MD [address]2 [facility] [address] [place] [address] Consulting Physician Endocrinology 12/13/21 Ulices Marino MD [address] [address] Consulting Physician Colon and Rectal Surgery 07/06/22 Georgina Fontenot APRN, HAM PUMPER [address] [place] [address] Nurse Practitioner Advanced Practice Nurse 09/25/24 documented as of this encounter
--- OUTSIDE RECORDS SUMMARY | 2024-11-14 16:35 | XMS_ITS | Data Portability ---
Author Organization 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 [...] d. Imaging non-str ess test 2024 025 [facility], [address], [address], [place], [address], 11/13/2024 15:42:04 US, obstetr ic, follow- up [address] [facility], [address], [place], [address], 11/13/2024 17:23:13 US, obstetr ic, biophys ical profile + non-str ess test [address] [facility], [address], [place], [address], 11/13/2024 18:14:56 US, obstetr ic, biophys ical profile + non-str ess test 2024 025 [facility], [address], [address], [place], [address], 11/13/2024 18:15:01 US, obstetr ic, follow- up [address] [facility], [address], [place], [address], 11/13/2024 17:22:48 non-str ess test 2024 025 [email or web address] [facility], [address], [place], [address], 11/07/2024 07:45:10 US, obstetr ic, biophys ical profile + non-str ess test [address] [facility], [place], [address], 11/06/2024 17:48:20 US, [facility] ic, biophys ical profile + non-str ess test [address] [facility], [address], [place], [address], 11/06/2024 17:48:32 Medication Orders None recorde d. Patient TargetsNo targets recorded. Patient InstructionsNo instructions recorded. Reason for Referral None Reported. Results Created Date Observation Date Name Description Value Unit Range Abnormal Flag Note LastModifiedBy Organization Detail LastModifiedTime 10/10/19 25 10/09/2024 US, ayo holley, limit ed No observ ation record ed. [facility] [address], [place], [address], 10/09/2024 17:38:41 10/10/19 25 10/09/2024 US, ayo tric, follo w-up No observ ation record ed. [facility] [address], [place], [address], 10/09/2024 17:38:53 10/10/19 25 10/09/2024 US, ayo tric, follo w-up No observ ation record ed. [email or web address] [address], [place], [address], 10/14/2024 10:19:44 10/23/19 25 10/22/2024 US, obstmickey tric, follo w-up No observ ation record ed. [email or web address] [facility] [address], [place], [address], 10/22/2024 17:16:15 10/23/1910/22/2024 US, obstmickey tric, follo w-up No observ ation record ed. [email or web address] [facility] [address], [place], [address], 10/22/2024 17:16:31 10/23/19 25 10/22/2024 US, ayo holley, follo w-up No observ ation record ed. LANA [address], [place], [address], 10/29/2024 21:52:03 10/27/19 25 10/23/2024 non-s tress test No observ ation record ed. [email or web address] [facility] [address], [place], [address], 10/26/2024 08:57:06 10/29/19 25 10/23/2024 non-s tress test No observ ation record ed. [facility] [address], [place], [address], 10/28/2024 11:44:35 10/31/19 25 10/30/2024 US, ayo holley, bioph ysica l profi le + non-s tress test No observ ation record ed. [email or web address] [facility] [address], [place], [address], 10/30/2024 13:28:58 10/31/19 25 10/30/2024 US, ayo holley, bioph ysica l profi le + non-s tress test No observ ation record ed. [email or web address] [facility] [address], [place], [address], 10/30/2024 13:29:11 10/31/1930 1010/30/2024 US, obste tric, follo w-up No observ ation record ed. [email or web address] [address], [place], [address], 10/31/2024 18:00:31 11/07/19 25 11/06/2024 US, obste tric, bioph ysica l profi le + non-s tress test No observ ation record ed. [email or web address] [facility] [address], [place], [address], 11/06/2024 17:48:20 11/07/19 25 11/06/2024 US, obste tric, bioph ysica l profi le + non-s tress test No observ ation record ed. [email or web address] [facility] [address], [place], [address], 11/06/2024 17:48:32 11/07/19 25 11/06/2024 non-s tress test No observ ation record ed. [email or web address] [facility] [address], [place], [address], 11/06/2024 17:22:40 11/07/19 25 11/06/2024 US, obste tric, bioph ysica l profi le + non-s tress test No observ ation record ed. [email or web address] [address], [place], [address], 11/11/2024 12:03:01 11/10/19 25 11/09/2024 imagi ng/di agnos tic resul t No observ ation record ed. [address], [place], [address], 11/11/2024 17:42:12 11/13/19 25 11/12/2024 non-s tress test No observ ation record ed. [email or web address] [facility] [address], [place], [address], 11/14/2024 14:47:58 11/14/19 25 11/13/2024 non-s tress test No observ ation record ed. [email or web address] [facility] [address], [place], [address], 11/14/2024 14:45:58 11/14/19 25 11/13/2024 US, obste tric, follo w-up No observ ation record ed. [email or web address] [facility] [address], [place], [address], 11/13/2024 18:14:47 11/14/19 25 11/13/2024 US, obste tric, bioph ysica l profi le + non-s tress test No observ ation record ed. [email or web address] [facility] [address], [place], [address], 11/13/2024 18:14:56 11/14/19 25 11/13/2024 US, obste tric, bioph ysica l profi le + non-s tress test No observ ation record ed. [email or web address] [facility] [address], [place], [address], 11/13/2024 18:15:06 11/14/1911/13/2024 US, obste tric, follo w-up No observ ation record ed. [email or web address] [facility] [address], [place], [address], 11/13/2024 18:15:15 11/14/1911/13/2024 non-s tress test No observ ation record ed. [email or web address] [facility] [address], [place], [address], 11/13/2024 15:40:45 11/14/19 25 11/13/2024 US, obste tric, follo w-up No observ ation record ed. LANA [address], [place], [address], 11/14/2024 16:09:55 Result Notes None recorded. Problems Name Problem SNOMED Code Status Onset Date Resolution Date Notes Provider Name and Address Organization Details Recorded Time Pregnanc y 13957638 Completed 202106/09/2022 Kenyetta Solano null, [facility] 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 3 15:14:45 Hypothyr oidism 07044654 Completed [facility] 15:14[facility]45 Antenata l care: history of infertil ity 015722231 Completed Eli Carlosnenstieh l null, [facility] 3 15:14:46 Group B Streptoc occus carrier 7959964612 103 Completed bacteriu berta Eli Scottnstieh l null, [facility] 3 15:14:45 Maternal obesity complica ting pregnanc y, childbir th and the puerperi um, antepart um 0927387544 07 Completed BMI 39- ante testing at 37w Elikristin Chaveznstieh l [facility], [facility] 3 15:14:46 Chronic hyperten allison in obstetri c context 7968807 Completed procardi a , baseline labs, ASA Eli Scottnstieh l [facility] 3 15:14:46 Placenta circumva llata 6458595 Completed Serial growth u/s Eli Chaveznstieh l null, [facility] 3 15:14:45 Pre-ecla mpsia 605229503 Completed Eli Gonzalezharveyanniejoselynluisa alvarado null, [facility] 3 15:14:45 Abnormal cervical Papanico laou smear 448744719 Active 2023 3 lgsil HPV high risk 1 ascus HPV high risk Kenyetta Russ null, [facility] 4 11:59:57 Herpes simplex 50130667 Active 2024 Kenyetta Solano null, [facility] 5 16:40:53 Human papillom a virus infectio n 556137569 Active 2024 Kenyetta Solano null, [facility] 5 16:40:59 Endometr iosis (clinica l) 459375503 Active 2024 Kenyetta Solano null, [facility] 5 16:41:22 Pregnanc y 80233324 Active 2024 Kenyetta Solano [facility], [facility] 5 16:03:06 Twin pregnanc y 51803721 Active 38 wk delivery antenata l testing @ 32wks per [facility] Schedule d rpt 08/27 us ONLY Tabatha Flanagan null, [facility] 5 12:20:16 Antenata l care: history of infertil ity 664153471 Active Peter Bryant, DUN[place] [address], [place], [address], [place] [facility] 5 13:48:37 Past pregnanc y history of pre-ecla mpsia 6730503487 16342 Active bASA x2 Tabatha Flanagan null, [facility] 5 17:10:40 Large for gestatio n age fetus 193791634 Active less then 30 sec shoulder dystocia Peter Bryant CNM [address], [place], [address], [facility] 5 13:51:09 Past pregnanc y history of shoulder dystocia 596594966 Active Peter Bryant CNM [address], [place], [address], [facility] 5 13:52:04 Chronic hyperten allison in obstetri c context 8878978 Active Peter Bryant CNM [address], [place], [address], [facility] 5 13:52:55 Palpitat ions 06422394 Active Holter monitor faxed to [facility] nt Cardiolo gy 07/29 Tabatha Flanagan null, [facility] 5 14:05:23 Palpitat ions 90507438 Active Holter monitor faxed to [facility] nt Cardiolo gy 324 Tabatha Green null, [facility] 5 14:05:23 Migraine 10164277 Active magnesiu m, Excedrin tension, sumatrip tatum Tabatha Green null, [facility] 5 17:11:50 Migraine 10090160 Active magnesiu m, Excedrin tension, sumatrip tatum Tabatha Green null, [facility] 5 17:11:50 Glucose toleranc e test outside referenc e range 800760731 Active 2024 5 checking blood sugars for 2 week instead for doing 3 hour Kenyetta Solano null, [facility] 17:53:21 Glucose toleranc e test outside referenc e range 438586897 Active 2024 5 checking blood sugars for 2 week instead for doing 3 hour Kenyetta moreno, [facility] 5 17:53:21 Gestatio nal diabetes mellitus 98862655 Active 2024 Kenyetta moreno, [facility] 5 11:47:25 Gestatio nal diabetes mellitus 37387955 Active 2024 Kenyetta moreno, [facility] 5 11:47:25 Finding of general energy 153485744 Completed 201807/28/2020 Fatigue; Recorded Elsewher e: No Locat ion: Chaya arevalo [facility] S ource: EHR Territory Representative mark: N Practi ce ID: [id number] Emmanuel lable Time: 10:45:00 AM Messi Garcia MD [address], [place], [address], [facility] 1 15:00:00 Acute vaginiti s 46896606 Completed 201807/28/2020 Vaginiti s;Record ed Elsewher e: No Locat ion: Chaya arevalo [facility] S ource: EHR Territory Representative mark: N Practi ce ID: [id number] Emmanuel lable Time: 10:45:00 AM Messi Garcia MD [address], [place], [address], [facility] 1 15:00:04 Removal of intraute rine device Completed 201807/28/2020 Encounte r for removal of IUD;Earl rded Elsewher e: No [facility] S ource: EHR Territory Representative mark: N Practi ce ID: [id number] Emmanuel lable Time: 10:45:00 AM Messi Garcia MD [address], [place], [address], [facility] 1 15:00:08 Problem Notes None recorded. Procedures Surgical History Date Name Laterality Status Provider Name and Address Organization Details Recorded Time 024 Laparoscopy completed [facility] 05/10/2024 16:42:07 024 Date of Last Pap Smear completed [facility] 08/16/2023 12:00:08 024 procedure on ear completed [facility] 08/16/2023 12:01:09 023 Colposcopy completed Peter Bryant CNM [address], [place], [address], [facility] 06/15/2022 16:59:00 023 Colposcopy completed [facility] 06/15/2022 16:38:21 023 Colposcopy completed [facility] 06/15/2022 16:38:49 022 intrauterine artificial insemination completed [facility] 06/26/2021 09:20:58 021 intrauterine artificial insemination completed [facility] 06/17/2021 12:15:01 021 intrauterine artificial insemination completed [facility] 06/17/2021 12:14:55 021 intrauterine artificial insemination completed [facility] 06/17/2021 12:14:45 021 intrauterine artificial insemination completed [facility] 06/17/2021 12:14:39 021 LAPAROSCOPY, DIAGNOSTIC (SURG) completed [facility] 08/19/2020 14:04:12 020 completed [facility] 10/01/2020 16:23:53 020 Colonoscopy completed [facility] 01/22/2021 10:59:09 019 procedure on neck completed [facility] 12/25/2019 11:25:51 019 hemorrhoidectomy completed [facility] 12/25/2019 11:24:57 016 cholecystectomy completed [facility] 07/16/2021 17:21:15 010 Appendectomy completed [facility] 12/25/2019 11:24:44 Imaging Results None recorded. Procedure Notes None recorded. Medical Equipment None Reported. Allergies Allergen ID Allergen Name Allergen Category Reaction Reaction Severity Criticality Documentation Date Start Date Code Code System Note Provider Name and Address Organization Details Recorded Time 42010 prednison e medicatio n hives Not available Not available 07/03/2024 8640 RxNorm Peter Bryant CNM [address], [place], [address] [place] [address], [facility] 5 09:52:22 Medications Name Sig Start [...] Pregnyl 10,000 unit intramusc ular solution Inject 08116 units every day by intramus cular route [...] jose antonio Cevallos e: Yes Loca tion: [facility] odify By: [email or web address] z Encoun ter DateTime [...] Not Availa ble Not Available Effexor XR 03/23 /2021 completed Not Available Not Available Not Available [...] VAIL INJECTIO N INTO RIGHT HIP LOT [id number] EXP 12/2021 Not Available Not Available Not [...] Address Organization Details Last Updated DateTime 11/06/2024 766749.43414 g 133/87 mm[Hg] Sun Aquinoer [facility] 11/06/2024 15:35:27 Date Recorded Body weight Systolic And Diastolic Provider Name and Address Organization Details Last Updated DateTime 11/13/2024 860801.06505 g 127/89 mm[Hg] Sun Sadiq [facility] 11/13/2024 15:38:06 Social History Question Answer Notes LastModified by Organizat ion Details LastModified Time Tobacco Smoking Status Never Smoker Althea Holguin tiffanie, [facility] 06/15/2022 15:31:26 Do You Have An Advance Directive? No Information n ot available 07/28/2020 If You Are , What Was Your Level Of Alcohol Consumption Prior To ? None [email or web address] Information not available 06/15/2022 Are You Blind [...] Type Of Diet Are You Following? REGULAR [email or web address] Information n ot available 08/19/2020 What Is The Highest Grade Or Level Of School You Have Completed Or The Highest Degree You Have Received? [id number] Information not available 07/28/2020 Are There Any Guns Present In Your Home? No Information not available 07/28/2020 What Was The Date Of Your Most Recent Tobacco Screening? 10/23/2024 [email or web address] Information not available 10/23/2024 Have You Ever Been Counseled For Unhealthy Alcohol Use? No [email or web address] Information not available 06/15/2022 Do You Use Protection During Sex? No Information not available 07/28/2020 Do You Use Your Seat Belt Or Car Seat Routinely? Yes Information not available 07/28/2020 Do You Have Smoke And Carbon Monoxide Detectors In Your Home? Yes Information not available 07/28/2020 How Much Tobacco Do You Smoke? No [email or web address] Information not available 12/25/2019 Do You Use [...] is your level of alcohol consumption? Occasional [email or web address] Information not available 12/25/2019 Do you or have you ever used smokeless tobacco? Never used smokeless tobacco [email or web address] Information not available 06/15/2022 Are you able to walk? YESWOREST [email or web address] Information not available 08/19/2020 Are you able to care for yourself? 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 No [email or web address] Information not available 06/15/2022 Do you or have you ever used e-cigarettes or vape? Never used electronic cigarettes [email or web address] Information not available 06/15/2022 What is your exercise level? Occasional [email or web address] Information not available 12/25/2019 Mental Status Question Answer Note LastModified by Organization D etails LastModified Time Do you feel stressed (tense, restless, nervous, or anxious, or unable to sleep at night)? [id number] [email or web address] Information not available 08/19/2020 Family History Relationship Description Onset Age of this Age Resolved Age Notes LastModified by Organization Details LastModified Time Maternal Grandmother Disorder of thyroid gland [email or web address] Not available 01/26 16:14:56 Mother Female infertility [email or web address] Not available 08/2024 13:51:15 Mother Disorder of thyroid gland [email or web address] Not available 01/26 16:14:56 Father Malignant tumor of pancreas [email or web address] Not available 2024 13:51:15 Brother Malignant neoplasm of prostate [email or web address] Not available 2024 13:51:15 Paternal Grandmother Malignant tumor of breast Not available 01/26 16:14:56 Paternal Grandmother Malignant neoplasm of lung [email or web address] Not available 01/26 16:14:56 Medical History Condition [...] SNOMED-CT Code Diagnosis ICD10 Code Diagnosis Note [id number] Peter Bryant CNM [facility] [address],[place] [address] 12/25/2019 10:57:08 12/25/2019 12:38:39 Breast infection 390681854 N61.0 Trying to conceive 54063 9001 Z31.9 [id number] Messi Garcia MD [facility] [address],[place] [address] 06/30/2020 12:07:39 06/30/2020 12:55:49 Pain in pelvis 61834711 R10.2 [id number] Messi Garcia MD [facility] [address],[place] [address] 07/02/2020 12:31:33 07/02/2020 16:54:32 Pain in pelvis 14459135 R10.2 This patient is a 25-year-ol d [...] informed consent process. To check fallopian tubes. [id number] Messi Garcia MD [facility] [address],[place] [address] 07/23/2020 10:07:53 07/23/2020 10:09:56 [id number] Messi Garcia MD [facility] [address],[place] [address] 07/28/2020 13:53:59 07/28/2020 15:27:02 Chest pain 13904467 R07.9 this patient is 25-year-ol d female [...] this patient s visit, including available hand harvester operator upon arrive, temperatur e check and being asked a series of screening questions. All staff wore face coverings during this encounter, as well as provided additional cleaning and sanitizing of all surfaces, including countertop s, pens, chairs, door handles, light switches, etc, prior to and following the patient s visit. [id number] Messi Garcia MD [facility] [address] [address] 08/04/2020 14:07:07 08/04/2020 14:50:37 Abnormal uterine bleeding 5477266704 9100 N93.9 this patient is a 25-year-ol [...] ovulation [place]. [id number] Peter Bryant CNM [facility] [address] [address] 08/19/2020 13:46:09 08/19/2020 15:50:34 Trying to conceive 659893406 Z31.9 [id number] Messi Garcia MD [facility] [address],[place] [address] 09/02/2020 11:05:51 09/02/2020 12:44:09 Female infertility 2784853 N97.9 [id number] Peter Byrant [facility] [address],[place] [address] 09/04/2020 08:09:36 09/04/2020 09:29:50 Artificial insemination 59186098 Z31.83 [id number] Peter Bryant [facility] [address],[place] [address] 09/03/2020 18:20:49 09/03/2020 22:54:04 Trying to conceive 840507984 Z31.9 [id number] Messi Garcia MD [facility] [address],[place] [address] 09/09/2020 17:51:09 09/09/2020 18:07:37 Pain in pelvis 29406219 R10.2 This patient is a 25-year-ol d [...] informed consent process. To check fallopian tubes. [id number] Messi Garcia MD [facility] [address],[place] [address] 09/22/2020 16:45:48 09/22/2020 17:17:04 Pain in pelvis 53256957 R10.2 This patient is a 25-year-ol d [...] informed consent process. To check fallopian tubes. [id number] Messi Garcia MD [facility] [address],[place] [address] 10/01/2020 14:59:50 10/01/2020 15:16:34 Female infertility 4332700 N97.9 [id number] Peter Bryant [facility] [address],[place] [address] 10/01/2020 16:21:54 10/01/2020 16:27:38 Trying to conceive 135807374 Z31.9 [id number] Peter Bryant [place] [address],[place] [address] 10/02/2020 08:19:49 10/02/2020 09:46:38 Artificial insemination 54356609 Z31.83 [id number] Messi Garcia MD [facility] [address],[place] [address] 10/14/2020 15:52:51 10/14/2020 16:51:20 Pain in pelvis 09833350 R10.2 This patient is a 25-year-ol d [...] informed consent process. To check fallopian tubes. [id number] Peter Bryant CNM [facility] [address],[place] [address] 10/21/2020 17:06:20 10/21/2020 17:33:05 Hypothyroidism 56993814 E03.9 check labs, will adjust meds if needed [id number] Messi Garcia MD [facility] [address] [address] 11/30/2020 13:48:01 11/30/2020 13:52:51 Pain in pelvis 05566024 R10.2 This patient is a 25-year-ol d [...] informed consent process. To check fallopian tubes. [id number] Messi Garcia MD [facility] [address] [address] 12/01/2020 14:00:56 12/01/2020 15:31:30 Pain in pelvis 74455231 R10.2 this patient is a 25-year-ol d [...] face-to-fa ce discussing this very complex topic. [id number] Peter Bryant CNM [facility] [address] [address] 01/22/2021 09:15:38 01/22/2021 10:35:42 Female infertility 5809228 N97.9 Gynecologi c examination 71979528 Z01.419 [id number] Messi Garcia MD [facility] [address],[place] [address] 02/09/2021 09:19:46 02/09/2021 10:04:48 Female infertility 0342582 N97.9 [id number] Peter Bryant [facility] [address],[place] [address] 02/09/2021 14:29:50 02/09/2021 16:50:58 Trying to conceive 355706770 Z31.9 [id number] Peter Bryant [facility] [address],[place] [address] 02/10/2021 09:41:42 02/10/2021 10:12:15 Female infertility 2355145 N97.9 Artificial insemination 21732992 Z31.83 [id number] Messi Garcia MD [facility] [address],[place] [address] 04/28/2021 14:43:43 04/28/2021 15:19:59 Female infertility 0707340 N97.9 [id number] Peter Bryant [facility] [address],[place] [address] 04/28/2021 18:59:10 04/29/2021 09:31:07 Trying to conceive 820687862 Z31.9 [id number] Peter Bryant [facility] 2016 [address],[place] [address] 04/29/2021 09:31:15 04/29/2021 10:19:12 Artificial insemination [id number] Z31.83 [id number] [facility] [address],[place] [address] 05/25/2021 11:53:11 05/25/2021 16:54:31 Reduced libido 6693750 R68.82 Today we discussed trial of Wellbutrin [...] this patient s visit, including available hand harvester operator upon arrive, temperatur e check and being asked a series of screening questions. All staff wore face coverings during this encounter, as well as provided additional cleaning and sanitizing of all surfaces, including countertop s, pens, chairs, door handles, light switches, etc, prior to and following the patient s visit. [id number] Messi Garcia MD [facility] [address] [address] 06/22/2021 14:38:59 06/23/2021 09:16:44 Body mass index 30+ - obesity 649569943 Z68.37 This patient is a 26-year-ol d [...] on the dietitian schedule. Gynecologi c examination 58194954 Z01.419 Abnormal u terine bleeding 9069136287 9100 N93.9 [id number] Messi Garcia MD [facility] [address],[place] [address] 06/25/2021 09:04:11 06/25/2021 09:23:27 Female infertility 3983777 N97.9 [id number] [facility] [address],[place] [address] 06/25/2021 18:38:25 06/26/2021 09:09:27 Trying to conceive 038890684 Z31.9 23874 [facility] [address],[place] [address] 06/26/2021 09:13:57 07/01/2021 15:54:18 Artificial insemination 95180468 Z31.83 [id number] Messi Garcia MD [facility] [address],[place] [address] 1 07/27/2021 17:11:55 07/27/2021 18:06:16 Uncertain viability of 983313105 O36.80X0 Z3A.01 39029 Msesi Garcia MD [facility] [address],[place] [address] 1 08/05/2021 09:17:05 08/05/2021 10:16:25 Abdominal pain in early 815283343 Z33.1 Z3A.01 [id number] Messi Garcia MD [facility] [address],[place] [address] 1 08/18/2021 10:17:54 08/18/2021 11:20:00 [id number] [facility] [address],[place] [address] 1 08/18/2021 10:18:19 08/19/2021 12:30:57 Amenorrhea 05971179 Z31.89 Z31.83 [id number] Pretty Cotton MD [facility] [address],[place] [address] 09/10/2021 14:50:18 09/10/2021 15:34:33 screening 945236629 Z36.82 [id number] Pretty Cotton MD [facility] [address],[place] [address] 1 09/10/2021 14:50:57 09/13/2021 15:22:01 Routine care 098034875 Z34.91 care: history of infertility 185657334 O09.[address] reptococcus carrier 9143416223 103 Z22.330 Hypothyroidism 65922495 E03.9 Maternal o besity complicating , childbirth and the puerperium, antepartum 5150645643 07 O99.211 [id number] Pretty Cotton MD [facility] [address],[place] [address] 1 09/27/2021 17:43:48 09/28/2021 10:23:00 Chronic hypertension complicating AND/OR reason for care during 05650936 O16.9 [id number] Pretty Cotton MD [facility] [address],[place] [address] 1 10/08/2021 14:49:27 10/08/2021 16:16:40 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 6385514 O16.9 care: history of infertility 363473855 O09.01 Hypothyroidism 35950317 E03.9 [id number] Messi Garcia MD [facility] [address],[place] [address] 1 11/03/2021 16:29:49 11/03/2021 18:37:35 screening 813794324 Z36.3 Z3A.20 [id number] [facility] [address],[place] [address] 11/03/2021 16:30:15 11/03/2021 18:37:10 Routine care 112190943 Z34.91 Anxiety 35278926 F41.9 [id number] Messi Garcia MD [facility] [address],[place] [address] 12/03/2021 15:10:07 12/03/2021 16:20:49 Hypothyroidism 81899187 E03.9 [id number] MD Rhnia Zheng [address],[place] [address] 1 12/03/2021 15:10:54 12/03/2021 17:08:45 Placenta circumvallata 9727255 O43.112 Z36.2 Z3A.24 [id number] MD Rhina Zheng [address],[place] [address] 1 12/29/2021 15:21:10 12/29/2021 16:01:38 Placenta circumvallata 0435384 O43.113 O10.013 O99.213 Z3A.28 [id number] Peter Bryant [facility] [address],[place] [address] 1 12/29/2021 15:22:44 12/29/2021 17:01:50 Routine care 768440966 Z34.91 - induced hypertension 66145361 O13.9 [id number] Messi Garcia MD [facility] [address],[place] [address] 01/13/2022 13:47:29 01/13/2022 14:39:17 Medical examination for suspected condition 943545398 Z03.79 [id number] Messi Garcia MD [facility] [address],[place] [address] 01/13/2022 13:47:50 01/13/2022 15:53:18 Routine care 183510369 Z34.83 [id number] MD Rhina Sanchez [address],[place] [address] 01/17/2022 16:24:29 01/17/2022 18:16:59 Threatened premature labor - not delivered 936386920 O47.9 [id number] Pretty Cotton MD [facility] [address],[place] [address] 01/17/2022 16:35:15 01/19/2022 15:28:55 Threatened premature labor - not delivered 352916831 O47.9 [id number] Messi Garcia MD [facility] [address],[place] [address] 1 01/26/2022 14:52:57 01/26/2022 15:27:45 Chronic hypertension complicating AND/OR reason for care during 21184644 O16.9 [id number] Messi Garcia MD [facility] [address],[place] [address] 1 01/26/2022 14:54:57 01/26/2022 16:22:26 Placenta circumvallata 6857334 O43.113 Z3A.32 O10.013 [id number] [facility] [address],[place] [address] 01/26/2022 14:55:32 01/26/2022 16:39:21 Routine care 253340478 Z34.91 [id number] Messi Garcia MD [facility] [address],[place] [address] 1 02/02/2022 16:59:59 02/02/2022 17:58:36 Maternal obesity complicating , childbirth and the puerperium, antepartum 0312112146 07 O99.213 [id number] Messi Garcia MD [facility] [address],[place] [address] 1 02/02/2022 17:00:19 02/02/2022 18:17:03 Chronic hypertension complicating AND/OR reason for care during 27028551 O10.013 Z3A.33 520473 [facility] [address],[place] [address] 02/02/2022 17:00:45 02/02/2022 18:50:24 Routine care 694047389 Z34.91 [id number] Messi Garcia MD [facility] [address],[place] [address] 1 02/09/2022 16:53:15 02/09/2022 17:49:24 Maternal obesity complicating , childbirth and the puerperium, antepartum 1723338501 07 O99.213 [id number] Messi Garcia MD [facility] [address],[place] [address] 1 02/09/2022 16:53:36 02/09/2022 18:15:36 Chronic hypertension complicating AND/OR reason for care during 73932457 O10.013 O99.213 Z3A.34 [id number] Peter Bryant [facility] [address],[place] [address] 02/09/2022 16:54:04 02/09/2022 18:25:27 Routine care 315758546 Z34.91 [id number] Messi Garcia MD [facility] [address],[place] [address] 1 02/16/2022 17:00:10 02/16/2022 17:56:48 Chronic hypertension complicating AND/OR reason for care during 12350300 O10.013 O99.213 Z3A.34 [id number] Messi Garcia MD [facility] [address],[place] [address] 02/16/2022 17:00:39 02/16/2022 18:07:43 Chronic hypertension complicating AND/OR reason for care during 69849347 O10.013 Z3A.35 O99.213 [id number] Peter Bryant [facility] [address],[place] [address] 02/16/2022 17:01:03 02/16/2022 18:20:17 Routine care 587484915 Z34.91 [id number] Messi Garcia MD [facility] [address],[place] [address] 02/18/2022 15:23:24 02/18/2022 15:53:12 Reduced movement 123900081 O36.8199 [id number] [facility] [address],[place] [address] 02/23/2022 16:45:10 02/23/2022 18:18:35 Routine care 693567881 Z34.91 Large for gestation age fetus 021682811 O36.63X0 [id number] Messi Garcia MD [facility] [address],[place] [address] 1 02/23/2022 16:42:55 02/23/2022 17:12:22 Chronic hypertension complicating AND/OR reason for care during 93769438 O10.013 Z3A.35 O99.213 [id number] Messi Garcia MD [facility] [address],[place] [address] 1 02/23/2022 16:43:28 02/23/2022 17:56:35 Chronic hypertension complicating AND/OR reason for care during 81356484 O10.013 O99.213 Z3A.36 [id number] Pretty Cotton MD [facility] [address],[place] [address] 03/16/2022 14:15:55 03/17/2022 16:13:50 Pain in pelvis 61212078 R10.2 [id number] Messi Garcia MD [facility] [address],[place] [address] 1 03/17/2022 13:34:56 03/17/2022 14:02:57 Pain in pelvis 64114567 R10.2 this patient is a 25-year-ol d [...] face-to-fa ce discussing this very complex topic. [id number] Messi Garcia MD [facility] [address],[place] [address] 03/17/2022 13:35:31 03/18/2022 13:49:15 Pain in pelvis 03620460 R10.2 patient is a 27-year-ol d female [...] We spent over 20 minutes face-to-fa ce. 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 restart lexapro, to ed if any suicidal thoughts, reviewed se risks and benefits f/u 6 week med check if unavailabl e can do by phone Low grade squamous intraepithelial lesion on cervical Papanicolaou smear 9984648668 9105 R87.612 f/u pending pathology [id number] Peter Bryant CNM [facility] [address],[place] [address] 08/16/2023 11:38:58 08/16/2023 13:55:15 Pain in pelvis 11244516 R10.2 also start pelvic floor pT Gynecologi c examination 19363025 Z01.419 [id number] Messi Garcia MD [facility] [address],[place] [address] 08/22/2023 11:28:17 08/22/2023 12:06:29 Pain in pelvis 56241764 R10.2 patient is a 27-year-ol d female [...] We spent over 20 minutes face-to-fa ce. [id number] Messi Garcia MD [facility] [address],[place] [address] 04/23/2024 09:16:05 04/23/2024 10:09:58 screening 934023173 Z36.87 O30.049 Z3A.01 [id number] Messi Garcia MD [facility] [address],[place] [address] 1 05/10/2024 15:16:46 05/10/2024 16:01:31 [id number] Peter Bryant CNM [facility] [address],[place] [address] 1 05/10/2024 15:17:03 05/10/2024 16:51:44 Amenorrhea 21356047 Z31.89 Z31.83 Dichorioni c diamniotic twin 203037757 O30.049 reviewed US plan us at 12 weeksnipt at 10 weeks with labsawait pap until pp visitrevie wed precaution s and educationh x preeclamps ia without severe features last [id number] Messi Garcia MD [facility] [address] [address] 1 05/21/2024 11:09:17 05/21/2024 12:05:12 Threatened miscarriage 82085557 O20.0 O30.041 Z3A.09 [id number] Messi Garcia MD [facility] [address],[place] [address] 05/23/2024 17:26:08 05/24/2024 10:31:39 Threatened miscarriage 91593267 O20.0 O30.041 Z3A.09 [id number] Messi Garcia MD [facility] [address],[place] [address] 1 05/23/2024 18:31:17 05/24/2024 10:33:13 Pain in pelvis 42954247 R10.2 this patient is a 29-year-ol d [...] is to contact us if pain worsens. [id number] Messi Garcia MD [facility] [address] [address] 1 05/29/2024 10:21:34 05/29/2024 11:12:31 condition affecting obstetrical care of mother 060435676 O36.8910 Z3A.10 [id number] Messi Garcia MD [facility] [address] [address] 06/03/2024 16:41:37 06/04/2024 14:32:45 screening 601969238 Z36.82 Z3A.11 [id number] Peter Bryant CNM [facility] [address],[place] [address] 1 06/05/2024 14:45:02 06/06/2024 16:44:18 Nausea and vomiting 67822844 R11.2 Migraine 95746288 G43.90 9 Routine an tenatal care 298420250 Z34.91 Twin 61398475 O30.009 [id number] Messi Garcia MD [facility] [address],[place] [address] 06/12/2024 17:23:11 06/12/2024 18:08:31 Medical examination for suspected condition 857284885 Z03.72 Z3A.12 [id number] Messi Garcia MD [facility] [address],[place] [address] 07/01/2024 16:17:41 07/01/2024 17:36:13 Dichorionic diamniotic twin 089841729 O30.042 Z3A.15 [id number] [facility] [address],[place] [address] 07/03/2024 09:17:02 07/03/2024 09:55:31 Gestation period, 15 weeks 0990919 Z3A.15 [id number] ALEC WILKINSON MD [facility] [address],[place] [address] 07/08/2024 10:41:29 07/08/2024 11:38:56 Pruritic rash 43112975 L28.2 Dichorioni c diamniotic twin 294919011 O30.049 Chronic hy pertension complicating AND/OR reason for care during 35464665 O16.9 Gestation period, 16 weeks 20870674 Z3A.16 [id number] Messi Garcia MD [facility] [address],[place] [address] 1 07/12/2024 10:38:28 07/12/2024 11:50:01 [id number] Peter Bryant CNM [facility] [address],[place] [address] 1 07/31/2024 16:35:21 08/01/2024 09:45:58 Gestation period, 19 weeks 40152023 Z3A.19 Dichorioni c diamniotic twin 693618320 O30.049 Gastroesop hageal reflux disease 210565488 K21.9 [id number] Peter Bryant [facility] [address],[place] [address] 08/09/2024 12:12:22 08/09/2024 14:11:25 Pain in pelvis 26081254 R10.2 start physical therapy [id number] Messi Garcia MD [facility] [address],[place] [address] 1 08/22/2024 12:06:07 08/22/2024 13:36:01 Dichorionic diamniotic twin 376883085 O30.042 O36.8120 Z3A.23 [id number] Peter Bryant [facility] [address],[place] [address] 08/28/2024 14:16:16 08/30/2024 10:02:02 [id number] Peter Bryant [facility] [address],[place] [address] 1 08/29/2024 09:57:22 08/30/2024 10:26:31 Gestation period, 24 weeks 714470706 Z3A.24 [id number] Messi Garcia MD [facility] [address],[place] [address] 09/18/2024 11:30:12 09/18/2024 12:33:22 Dichorionic diamniotic twin 475913427 O30.042 O99.891 Z3A.26 [id number] Peter Bryant [facility] [address],[place] [address] 09/27/2024 14:05:42 09/27/2024 14:47:06 Gestation period, 28 weeks 55444542 Z3A.28 [id number] Messi Garcia MD [facility] [address],[place] [address] 1 10/09/2024 13:51:09 10/09/2024 15:10:27 Dichorionic diamniotic twin 323816941 O30.043 O32.1XX2 Z36.2 Z3A.29 [id number] Peter Bryant [facility] [address],[place] [address] 10/09/2024 13:51:24 10/09/2024 16:46:13 Gestation period, 29 weeks 87936012 Z3A.29 [id number] Messi Garcia MD [facility] [address],[place] [address] 10/22/2024 11:49:29 10/22/2024 13:06:50 Dichorionic diamniotic twin 219437641 O30.043 O24.410 O13.3 Z3A.31 [id number] Peter Bryant [facility] [address],[place] [address] 1 10/23/2024 14:57:19 10/27/2024 19:34:15 Twin 33962952 O30.009 [id number] [facility] [address],[place] [address] 10/23/2024 14:57:44 10/23/2024 16:42:04 Gestation period, 31 weeks 21691272 Z3A.31 [id number] Messi Garcia MD [facility] [address],[place] [address] 10/30/2024 11:49:15 10/30/2024 12:53:32 Dichorionic diamniotic twin 571197987 O30.043 O24.410 O16.3 Z3A.32 [id number] [facility] [address],[place] [address] 10/30/2024 11:49:41 10/30/2024 13:44:54 Gestation period, 32 weeks 5757879 Z3A.32 [id number] Messi Garcia MD [facility] [address],[place] [address] 1 11/06/2024 14:02:15 11/06/2024 15:08:32 Dichorionic diamniotic twin 177907769 O30.043 O24.414 O24.410 [id number] ALEC WILKINSON MD [facility] [address],[place] [address] 1 11/06/2024 14:02:26 11/06/2024 17:33:51 Chronic hypertension complicating AND/OR reason for care during 92459597 O10.919 [id number] Peter Bryant [facility] [address],[place] [address] 11/06/2024 14:02:37 11/06/2024 16:26:16 Gestation period, 33 weeks 47703232 Z3A.33 Dichorioni c diamniotic twin 566080131 O30.043 [id number] Messi Garcia MD [facility] [address],[place] [address] 11/13/2024 13:58:59 11/13/2024 15:10:18 Dichorionic diamniotic twin 445992732 O30.043 O24.410 O16.3 O99.213 Z3A.34 [id number] [facility] [address],[place] [address] 11/13/2024 13:59:12 11/13/2024 15:41:29 Chronic hypertension complicating AND/OR reason for care during 26427224 O10.919 [id number] [facility] [address],[place] [address] 11/13/2024 13:59:25 11/13/2024 16:05:11 Gestation period, 34 weeks 72764801 Z3A.34 Health Concerns Section Related Observation LastModified by Organization Detai ls LastModified Time None Recorded Concern Status LastModified by Organization Details LastModified Time None Recorded Advance Directives Directive N: Payers Insurance Date Sequence Insurance Name Policy Number Policy Steele Covered Member ID Steele Member ID Guarantor Name 05/10/2024 2 [facility] Chjc Xbb [id number] Yessica M Corzine 05/18/2021 1 [facility] [id number] Luis Antonio A Corzine [id number] Yessica M Corzine 06/15/2022 *SELF PAY* Me kartik M Corzine 08/31/2020 2 [facility] Luis Antonio Corzine [id number] Yessica M Corzine 08/31/2020 3 [facility] Jospeh Corzine [id number] Yessica M Corzine 09/04/2020 2 [facility] Luis Antonio Corzine [id number] Yessica M Corzine 09/23/2020 2 [facility] Jospeph Corzine [id number] Yessica M Corzine 11/11/2024 1 [facility] [id number] Luis Antonio A Corzine [id number] Yessica M Corzine 05/10/2024 3 [facility] [id number] FB [id number] Yessica M Corzine OBGyn Episode Ob Episode Information Episode Created Date Number of Fetuses Patient Bloodtype Patient rh Status Prepregnancy Weight lbs Domestic Partner Domestic Partner Phone Father Name Executive Receptionist Status 12/25/19 20 1 CLOSED Fetus Data [...] Domestic Partner Domestic Partner Phone Father Name Executive Receptionist Status 12/25/19 20 1 CLOSED Fetus Data [...] Domestic Partner Domestic Partner Phone Father Name Executive Receptionist Status 09/11/19 22 1 A Positive 221 CLOSED Fetus Data First Name Last Name Admitted to NICU Weight (g) Sex Living Outcome Pediatric Complications Fetus ID Race Codes Race Delivery Type 4224.07 55 M true Full Term [id number] Vaginal Delivery Problems Problem Notes TSH WNL/A+/Ha1c/CBC WNL Problem Name Start Date End Date Resolution Snomed Code Not e Hypothyroidism 95208175 care: history of infertility 088117313 Group B Streptococcus carrier 2526770630043 bacteriuria Maternal obesity complicating , childbirth and the puerperium, antepartum 495419683999 BMI 39- ante testing at 37w 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 9809145 maia ellsworth , baseline labs, ASA Placenta circumvallata 2808722 Serial growth u/s Pre-eclampsia 195376042 Darren Calculation Initial Darren Date Initial Exam [...] Date Ultra Sound Latest Days Gestation 0 [email or web address] 09/13/2021 03/23/20 22 0 Pre- Flowsheet Flowsheet Date 09/10/2021 Mckinney Score Blood Edema Fundus Height Fundus Units Glucose Ketones Leukocytes Nitrite Labor Signs Protein Cervic Dilation Cervic Effacement Cervic Station neg none Type Weight in lbs Pre/Post Dialysis Refused Weight 225.053612638962 BP Diastolic BP Location Tested BP Systolic [...] Weight in lbs Pre/Post Dialysis Refused Weight 226.138360926990 BP Diastolic BP Location Tested BP Systolic [...] Weight in lbs Pre/Post Dialysis Refused Weight 224.180193804169 BP Diastolic BP Location Tested BP Systolic [...] Weight in lbs Pre/Post Dialysis Refused Weight 230.623882338247 BP Diastolic BP Location Tested BP Systolic [...] Weight in lbs Pre/Post Dialysis Refused Weight 234.101400914485 BP Diastolic BP Location Tested BP Systolic [...] Weight in lbs Pre/Post Dialysis Refused Weight 235.793674244403 BP Diastolic BP Location Tested BP Systolic [...] Weight in lbs Pre/Post Dialysis Refused Weight 239.123630006522 BP Diastolic BP Location Tested BP Systolic [...] Weight in lbs Pre/Post Dialysis Refused Weight 240.028543473071 BP Diastolic BP Location Tested BP Systolic [...] Weight in lbs Pre/Post Dialysis Refused Weight 242.495776539986 BP Diastolic BP Location Tested BP Systolic [...] Weight in lbs Pre/Post Dialysis Refused Weight 243.104920225761 BP Diastolic BP Location Tested BP Systolic [...] Weight in lbs Pre/Post Dialysis Refused Weight 242.568620357640 BP Diastolic BP Location Tested BP Systolic [...] Weight in lbs Pre/Post Dialysis Refused Weight 246.590052697962 BP Diastolic BP Location Tested BP Systolic BP Type 92 146 90 160 Fetus Heart Rate Present Fetus Movement A Decreased Comments patient is having pain, cont ractions, heartburn and swelling. bp elevated nst nr, bpp /, decreased movement to ld for labs and [...] Weight in lbs Pre/Post Dialysis Refused Weight 246.373727548592 BP Diastolic BP Location Tested BP Systolic [...] Weight in lbs Pre/Post Dialysis Refused Weight 211.671769894389 BP Diastolic BP Location Tested BP Systolic [...] Weight in lbs Pre/Post Dialysis Refused Weight 211.948074187247 BP Diastolic BP Location Tested BP Systolic BP Type 86 L arm 126 sitting Fetus Heart Rate Present Fetus Movement Comments Flowsheet Date 04/08/2022 Mckinney Score Blood Edema Fundus Height Fundus Units Glucose Ketones Leukocytes Nitrite Labor Signs Protein Cervic Dilation Cervic Effacement Cervic Station Type Weight in lbs Pre/Post Dialysis Refused Weight 212.20036194361 BP Diastolic BP Location Tested BP Systolic BP Type 84 134 Fetus Heart Rate Present Fetus Movement Comments Flowsheet Date 05/27/2022 Mckinney Score Blood Edema Fundus Height Fundus Units Glucose Ketones Leukocytes Nitrite Labor Signs Protein Cervic Dilation Cervic Effacement Cervic Station Type Weight in lbs Pre/Post Dialysis Refused Weight 221.617099657742 BP Diastolic BP Location Tested BP Systolic [...] Estim ated Date of Delivery false Thalassemia (South Korean, Armenian, Mediterranean, Or Background): MCV < 80 false Neural Tube Defect (Meningomyelocele, Spina Bifi da, Or Anencephaly) false Congenital Heart Defect false Down Syndrome false Curt-Sachs (eg, Scientology, Cajun, Amharic-[place]) f alse Yung Disease false Sickle Cell Disease Or Trait () false Hemophilia Or Other Blood Disorders false Muscular Dystrophy false Cystic Fibrosis false Davenport's Chorea false Intellectual Disability/Autism false If Yes, [...] d Regional-Ep idural 37 false Peter Bryant CNM Maternal obesity, Gbs+ and pre eclampsia w/o severe features Discharge Information Feeding Method Contraceptive Method Maternal HG B and HCT Levels Breast Ob Episode Information Episode Created Date Number of Fetuses Patient Bloodtype Patient rh Status Prepregnancy Weight lbs Domestic Partner Domestic Partner Phone Father Name Executive Receptionist Status 06/05/19 25 2 A Positive 198 Gabriel Mo OPEN Fetus Data First Name Last Name Admitted to NICU Weight (g) Sex Living Outcome Pediatric Complications Fetus ID Race Codes Race Delivery Type [id number] Problems Problem Notes Anatomy with MFM - 07/31/24 1 300 [facility] U/S & OV [facility] 08/27/24 US only 1:00PM Problem Name Start Date End Date Resolution Snomed Code Not e care: history of infertility [id number] Past history of shoulder dystocia [id number] Large for gestation age fetus [id number] less then 30 se c shoulder dystocia Past history of pre-eclampsia [id number] bASA x2 Migraine [id number] magnesium, Excedrin tension, sumatriptan 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 [id number] Palpitations [id number] Holter monitor faxed to [facility] 07/29 Gestational diabetes mellitus 10/10/2024 [id number] Glucose tolerance test outside reference range 10/01/2024 [id number] 10/01/2024 ch ecking blood sugars for 2 week instead for doing 3 hour Twin [id number] 38 wk deliveryantenatal testing @ 32wks per [facility] Scheduled rpt 08/27 us ONLY Darren [...] Weight in lbs Pre/Post Dialysis Refused Weight 207.417279520027 BP Diastolic BP Location Tested BP Systolic [...] disability paperwork. will plan on referral to [facility] for anatomy and history of HTN/preeclampsia, [...] Present Fetus Movement Comments Flowsheet Date 07/01/2024 Cmkinney Score Blood Edema Fundus Height Fundus Units [...] Type Weight in lbs Pre/Post Dialysis Refused 214.120372409824 BP Diastolic BP Location Tested BP Systolic [...] Weight in lbs Pre/Post Dialysis Refused Weight 216.450535198707 BP Diastolic BP Location Tested BP Systolic [...] No bleeding. Will send for anatomy at [facility]. Will measure for belly band today [...] Type Weight in lbs Pre/Post Dialysis Refused 220.950764705593 BP Diastolic BP Location Tested BP Systolic BP Type 92 152 53 114 Fetus Heart Rate Present Fetus Movement A Yes B Yes Comments Patient is having headaches, pain, contractions, swelling, Had elevated heart rate over the weekend and get heart moniter on , 08/08/24. saw [facility] this morning rec 2 bASA, will rpt anatomy in 4 weeks, precautions and education f/u 4 weeks Flowsheet Date 08/09/2024 Mckinney Score Blood Edema Fundus Height Fundus Units Glucose Ketones Leukocytes Nitrite Labor Signs Protein Cervic Dilation Cervic Effacement Cervic Station neg none none neg Type Weight in lbs Pre/Post Dialysis Refused 227.198043252624 BP Diastolic BP Location Tested BP Systolic [...] Weight in lbs Pre/Post Dialysis Refused Weight 229.284656221566 BP Diastolic BP Location Tested BP Systolic BP Type 89 133 Fetus Heart Rate Present Fetus Movement A Yes B Yes Comments Patient is having pressure, contractions and swelling. Flowsheet Date 08/29/2024 Mckinney Score Blood Edema Fundus Height Fundus Units Glucose Ketones Leukocytes Nitrite Labor Signs Protein Cervic Dilation Cervic Effacement Cervic Station Type Weight in lbs Pre/Post Dialysis Refused 232.03325963930 BP Diastolic BP Location Tested BP Systolic [...] Type Weight in lbs Pre/Post Dialysis Refused 236.728154893185 BP Diastolic BP Location Tested BP Systolic [...] Type Weight in lbs Pre/Post Dialysis Refused 234.454491507005 BP Diastolic BP Location Tested BP Systolic BP Type 87 138 Fetus Heart Rate Present Fetus Movement A Yes B Yes Comments Patient is having pain and c ontractions and swelling. 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 for flag maker referral to [facility], eduction and precautions f/u [...] Weight in lbs Pre/Post Dialysis Refused Weight 241.324873639406 BP Diastolic BP Location Tested BP Systolic BP Type 82 125 Fetus Heart Rate Present Fetus Movement Comments Flowsheet Date 10/23/2024 Mckinney Score Blood Edema Fundus Height Fundus Units Glucose Ketones Leukocytes Nitrite Labor Signs Protein Cervic Dilation Cervic Effacement Cervic Station neg trace Type Weight in lbs Pre/Post Dialysis Refused 241.66426768518 BP Diastolic BP Location Tested BP Systolic [...] Type Weight in lbs Pre/Post Dialysis Refused 248.691985788756 BP Diastolic BP Location Tested BP Systolic [...] Type Weight in lbs Pre/Post Dialysis Refused 238.749607837667 BP Diastolic BP Location Tested BP Systolic [...]
--- OUTSIDE RECORDS SUMMARY | 2024-11-14 16:35 | XMS_ITS | Encounter Summary ---
Author Organization [facility] Address [address] [place] [address] Care Team Providers Care Doubling Machine Operator Name Role Phone Scooter White DO Primary Care Provider Encounter Details Date Type Department Care Team (Late st Contact Info) Description 11/06/2018 Lab Requisition [facility] Care Pathology Lab [address] [place] [address] Cindi Herrera MD [address] [place] [address] Enlarged lymph nodes Social History Tobacco Use Types Packs/Day Years Used Date Smoking Tobacco: Never Smokeless Tobacco: Never Alcohol Use Standard Drinks/Week Comments No 0 (1 standard drink = 0.6 oz pur e alcohol) Comments No Sex and Gender Information Value Date Recorded Sex Assigned at Not on file Legal Sex Female 1:08 PM MEDIA RELATIONS INTERN Gender Identity Not on file Sexual Orientation [...] AM CDT) Case Report Flow Cytometry Case: [id number] Authorizing Provider: Cindi Herrera MD Collected: 11/05/2018 11:02 AM Pathologist: Alexa Weinberg MD Received: 11/06/2018 02:01 PM Specimen: Cervical Lymph Node , Left 9 5:33 PM T [facility] PATHOLOGY LAB Final Diagnosis Lymph node, left cervical, flow cytometric immunophenotypic analysis: - No evidence of non-Hodgkin lymphoma. - See interpretation. 9 5:33 PM [facility] PATHOLOGY LAB at 1733 CDT Flow Cytometry [...] cytometry specimen is reviewed for quality control representative purposes. In summary, the left cervical lymph node specimen shows no evidence of a non-Hodgkin lymphoma. Correlation with additional clinical information and the concurrent biopsy specimen is required. KR 9 5:33 PM [facility] PATHOLOGY LAB Flow Cytometry Results Differential Result Comment Flow Cell Count /uL [id number] Total Viability % 86.0 Lymphocytes % 97 Dim CD45 Region % 0 Monocytes % 1 Granulocytes % 1 9 5:33 PM [facility] PATHOLOGY LAB Reason for test Enlarged lymph nodes 785.6 9 5:33 PM [facility] PATHOLOGY LAB Client Specimen ID # [id number] 9 5:33 PM [facility] PATHOLOGY LAB Number of markers 16 were performed. A Flow CD3 A Flow CD10 A Flow CD20 A Flow CD23 A Flow CD2 A Flow CD4 A Flow CD1a A Flow CD5 A Flow CD19 A Flow CD34 A Flow CD45 A Flow CD7 A Flow CD8 A Flow CD30 A [place]+CD19+ A Lambda+CD19+ 9 5:33 PM [facility] PATHOLOGY LAB Disclaimer Test performed at [facility], [address] [place], [place], [address]. *The established laboratory minimum viability is 70%. [...] complexity clinical testing. 9 5:33 PM CDT [facility] PATHOLOGY LAB Embedded Images 9 5:33 PM CDT [facility] PATHOLOGY LAB Pathology/Cytolo gy ENTIRE CERVICAL LYMPH NODE / Unknown 11/05/2018 11:02 AM CDT 11/06/2018 2:01 PM CDT Cindi Herrera MD LAB - PATHOLOGY/CYTOLOGY ORDERA BLE Final Result [facility] PATHOLOGY LAB [address] [facility] [place] [address], [facility] [phone] documented in this encounter Visit Diagnoses Diagnosis Enlarged lymph nodes Enlargement of lymph nodes documented in this encounter Care Teams Doubling Machine Operator Relationship Specialty Start Date End Date Scooter White DO PCP - General 03/16/22 documented as of this encounter
--- OUTSIDE RECORDS SUMMARY | 2024-11-14 16:35 | XMS_ITS | Continuity of Care Document ---
Author Organization [facility] Address [address] [place] [address] [place] [address] Phone Care Team Providers Care Special Machine Stitcher Name Role Phone Robby Torres MD Unavailable [...] Diagnoses Date Provider Providers Copied on Encounter [facility], [address] [facility] [place], [id number], [place] tel:[phone] [facility] No Information 1 Brian Bustamante. [address], [place], [place], [address] , [place]. tel:[phone] [facility], [address], [place], [place], [address], [place] tel:[phone] [facility] No Information 0 Brian Bustamante. [address], [place], [place], [address] , [place]. tel:[phone] OFFICE/OUTPA TIENT VISIT, [facility], [address], [place], [place], [address], [place] tel:[phone] [facility] anxiety1 (chief complaint) Generalized Anxiety DisorderHypothyroid ism 0 Brian Bustamante. [address], [address], [place], [place], [address] , [place]. tel:[phone] Referring Provider: Robby Torres [address], [place], [place], [address]. tel:[phone] OFFICE/OUTPA TIENT VISIT, [facility], [address], [place], [place], [address], [place] tel:[phone] [facility] anxiety1 (chief complaint) Generalized Anxiety DisorderGoiter 0 Brian Bustamante. [address], [address], [place], [place], [address] , [place]. tel:[phone] Referring Provider: Robby Torres [address], [place], [place], [address]. tel:[phone] OFFICE/OUTPA TIENT VISIT, [facility], [address], [place], [place], [address], [place] tel:[phone] [facility] thyroid nodule1 (chief complaint) anxiety1 (chief complaint) GoiterGeneralized Anxiety Disorder 0 Brian Menendez [address], [place], [place], [address] , [place]. tel:[phone] Referring Provider: Gissel Banks [address], [place], [place], [address]. tel:[phone] OFFICE/OUTPA TIENT VISIT, [facility], [address], [place], [place], [address], [place] tel:[phone] [facility] anxiety1 (chief complaint) iron1 (chief complaint) thyroid1 (chief complaint) Disorder of iron metabolism, unspecifiedGoiterGe neralized Anxiety Disorder Lonnie-0 0 Brian Bustamante. [address], [place], [place], [address] , [place]. [phone] Referring Provider: Gissel Banks [address], [place], [place], [address]. tel:[phone] OFFICE/OUTPA TIENT VISIT, [facility], [address], [place], [place], [address], [place] tel:[phone] [facility] ankle pain1 (chief complaint) fatigue1 (chief complaint) thyroid1 (chief complaint) anemia1 (chief complaint) Pain in right ankleFatigueAnemiaG oiter 0 Brian Bustamante. [address], [place], [place], [address] , [place]. tel:[phone] Referring Provider: Gissel Banks [address], [place], [place], [address]. tel:[phone] OFFICE/OUTPA TIENT VISIT, [facility], [address], [place], [place], [address], [place] tel:[phone] [facility] rash1 (chief complaint) Allergic contact dermatitis due to plants, except food Aug- 0 Brian Bustamante. [address], [place], [place], [address] , [place]. [phone] Referring Provider: Gissel Banks [address], [place], [place], [address]. tel:[phone] OFFICE/OUTPA TIENT VISIT, [facility], [address], [place], [place], [address], tel:[phone] [facility] Medicine thyroid1 (chief complaint) ferritin1 (chief complaint) IgA (chief complaint) fatigue1 (chief complaint) GoiterDisorder of iron metabolism, unspecifiedVitamin D deficiency, unspecifiedRaised level of immunoglobulinAnemi aH. pylori as the cause of diseases classified elsewhereFatigue 0 Brian Bustamante. [address] [facility] [place], [address] , . tel:[phone] Referring Provider: Gissel Banks [place], [place], [address]. tel:[phone] PREV VISIT, NEW, AGE 18-39 [facility], [address] [place] [address] [employer] [place], [place], [address], tel:[phone] [facility] PHysical (chief complaint) Encntr for general adult medical exam w/o abnormal findings 0 Brian Bustamante. [address], [facility], [place], [place], [address] , [place]. tel:[phone] Referring Provider: Robby Torres [address] [place] [address], [id number]. tel:[phone] Family History Family Member Type Diagnosis Age [...] Referral Referred To: Jean Carlos BolañosJoe silva [address] [facility]
[address] [place], [place] [id number] Ordered: Referrals: Allopathic & Osteopathic Physicians : [...] any dysphagia ankle pain1 Pt was at [employer] and she stepped on gravel [...] or swelling . 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
--- OUTSIDE RECORDS SUMMARY | 2024-11-14 16:36 | XMS_ITS | Continuity of Care Document ---
Author Organization [facility] Address [address] [place] [address] Care Team Providers Care Caustic Pump Operator Name Role Phone [facility] EDUIN HAMMONDS Custom Protection Officer [phone] JILLIAN LAO Primary Care Provider Assessment No assessment recorded. Plan of Treatment Reminders Order Date Submit [...] d. Imaging non-str ess test 2024 025 [email or web address] [address], [address], [place], [address], 11/13/2024 15:42:04 Medication Orders None recorde d. Patient TargetsNo targets recorded. Patient InstructionsNo instructions recorded. Reason for Referral None Reported. Results Created Date Observation Date Name Description Value Unit Range Abnormal Flag Note LastModifiedBy Organization Detail LastModifiedTime 06/12/1906/12/2024 US, obste tric, limit ed No observ ation record ed. [email or web address] [place] [address], [place], [address], 06/12/2024 18:21:33 06/12/19 25 06/12/2024 US, obste tric, follo w-up No observ ation record ed. [email or web address] [address], [place], [address], 06/13/2024 18:51:30 07/01/19 25 07/01/2024 US, obste tric, limit ed No observ ation record ed. [email or web address] [place] [address], [place], [address], 07/01/2024 18:30:39 07/01/19 25 07/01/2024 US, obste tric, follo w-up No observ ation record ed. [address], [place], [address], 07/02/2024 23:15:06 07/13/19 25 07/12/2024 US, obste tric, limit ed No observ ation record ed. [address], [place], [address], 07/12/2024 17:50:02 08/09/19 25 08/08/2024 XR, chest , 1 view No observ ation record ed. [address] [facility] [address] [facility], [place], [address], 08/12/2024 15:18:19 08/10/19 25 07/31/2024 US, obste tric, follo w-up No observ ation record ed. [facility] [address] [place], [address], 08/20/2024 12:19:45 08/10/19 25 07/31/2024 US, obste tric, follo w-up No observ ation record ed. [email or web address] [facility] [place] [address] [place], [address], 08/12/2024 22:49:50 08/20/19 25 08/08/2024 ilya r monit or No observ ation record ed. [facility] [address] [address], [place], [address], 08/21/2024 11:36:44 08/20/19 25 08/08/2024 ilya r monit or No observ ation record ed. [facility] (Pulmonary) [facility] [address], [address], 08/28/2024 13:01:57 08/23/19 25 08/22/2024 US, obste tric, follo w-up No observ ation record ed. [email or web address] [address], [place], [address], 08/27/2024 13:26:37 08/23/19 25 08/22/2024 US, obste tric, limit ed No observ ation record ed. ervin [place] [address], [place], [address], 08/22/2024 13:56:22 08/23/19 25 08/22/2024 US, obste tric, limit ed No observ ation record ed. [email or web address] [address], [place], [address], 08/28/2024 22:09:02 08/28/19 25 08/27/2024 US, kidne y No observ ation record ed. [address] [facility] [address], [place], [address], 08/28/2024 18:26:00 08/28/19 25 08/27/2024 US, obste tric, follo w-up No observ ation record ed. [address] [facility] [address] [place], [address], 09/10/2024 06:50:18 08/28/19 25 08/27/2024 US, obste tric, follo w-up No observ ation record ed. [address] [facility] [address] [place], [address], 08/28/2024 18:26:00 09/04/19 25 09/03/2024 non-s tress test No observ ation record ed. [address] [facility] [address], [place], [address], 09/16/2024 09:45:28 09/19/19 25 09/18/2024 US, obste tric, limit ed No observ ation record ed. [email or web address] [place] [address] [facility] [address] [place], [address], 09/18/2024 18:16:30 09/19/19 25 09/18/2024 US, obste tric, follo w-up No observ ation record ed. [email or web address] [address], [place], [address], 09/19/2024 14:32:58 09/25/19 25 09/24/2024 US, obste tric, follo w-up No observ ation record ed. [email or web address] [facility] [address] [place], [address], 09/25/2024 11:31:18 09/25/19 25 09/24/2024 US, obste tric, follo w-up No observ ation record ed. [email or web address] [facility] [address] [place], [address], 10/10/2024 11:06:25 10/10/19 25 10/09/2024 US, obste tric, limit ed No observ ation record ed. ervin [place] [address], [place], [address], 10/09/2024 17:38:41 10/10/19 25 10/09/2024 US, obste tric, follo w-up No observ ation record ed. [facility] [address], [place], [address], 10/09/2024 17:38:53 10/10/19 25 10/09/2024 US, obste tric, follo w-up No observ ation record ed. [email or web address] [address], [place], [address], 10/14/2024 10:19:44 10/23/19 25 10/22/2024 US, obste tric, follo w-up No observ ation record ed. [email or web address] [place] [address], [place], [address], 10/22/2024 17:16:15 10/23/19 25 10/22/2024 US, obste tric, follo w-up No observ ation record ed. [email or web address] [place] [address], [place], [address], 10/22/2024 17:16:31 10/23/1910/22/2024 US, obste tric, follo w-up No observ ation record ed. LANA [address], [place], [address], 10/29/2024 21:52:03 10/27/1910/23/2024 non-s tress test No observ ation record ed. [email or web address] [place] [address], [place], [address], 10/26/2024 08:57:06 10/29/19 25 10/23/2024 non-s tress test No observ ation record ed. [email or web address] [place] [address], [place], [address], 10/28/2024 11:44:35 10/31/19 25 10/30/2024 , obste tric, bioph ysica l profi le + non-s tress test No observ ation record ed. [email or web address] [place] [address], [place], [address], 10/30/2024 13:28:58 10/31/19 25 10/30/2024 US, obste tric, bioph ysica l profi le + non-s tress test No observ ation record ed. [email or web address] [place] [address], [place], [address], 10/30/2024 13:29:11 10/31/19 25 10/30/2024 US, obste tric, follo w-up No observ ation record ed. [email or web address] [address], [place], [address], 10/31/2024 18:00:31 11/07/1911/06/2024 US, obste tric, bioph ysica l profi le + non-s tress test No observ ation record ed. [email or web address] [place] [address], [place], [address], 11/06/2024 17:48:20 11/07/19 25 11/06/2024 US, obste tric, bioph ysica l profi le + non-s tress test No observ ation record ed. [email or web address] [place] [address], [place], [address], 11/06/2024 17:48:32 11/07/19 25 11/06/2024 non-s tress test No observ ation record ed. [address] [address], [place], [address], 11/06/2024 17:22:40 11/07/19 25 11/06/2024 US, obste tric, bioph ysica l profi le + non-s tress test No observ ation record ed. [email or web address] [address] [facility], [place], [address], 11/11/2024 12:03:01 11/10/19 25 11/09/2024 imagi ng/di agnos tic resul t No observ ation record ed. [address], [place], [address], 11/11/2024 17:42:12 11/13/19 25 11/12/2024 non-s tress test No observ ation record ed. [email or web address] [address] [address], [place], [address], 11/14/2024 14:47:58 11/14/19 25 11/13/2024 non-s tress test No observ ation record ed. [email or web address] [address] [address], [place], [address], 11/14/2024 14:45:58 11/14/1911/13/2024 US, obste tric, follo w-up No observ ation record ed. [email or web address]30 [address] [address], [place], [address], 11/13/2024 18:14:47 11/14/1911/13/2024 US, obste tric, bioph ysica l profi le + non-s tress test No observ ation record ed. [facility]30 [address] [address], [place], [address], 11/13/2024 18:14:56 11/14/1911/13/2024 US, obste tric, bioph ysica l profi le + non-s tress test No observ ation record ed. [facility]30 [address] [address], [place], [address], 11/13/2024 18:15:06 11/14/1911/13/2024 US, obste tric, follo w-up No observ ation record ed. [facility]30 [address] [address], [place], [address], 11/13/2024 18:15:15 11/14/1911/13/2024 non-s tress test No observ ation record ed. [email or web address] [place] [address], [place], [address], 11/13/2024 15:40:45 11/14/1911/13/2024 US, obste tric, follo w-up No observ ation record ed. LANA [address], [place], [address], 11/14/2024 16:09:55 Result Notes None recorded. Problems Name Problem SNOMED Code Status Onset Date Resolution Date Notes Provider Name and Address Organization Details Recorded Time Pregnanc y 35041099 Completed 202106/09/2022 Kenyetta Solano [facility], [facility] 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 3 15:14:45 Hypothyr oidism 99452594 Completed Eli Brizuela l [facility], [facility] 3 15:14:45 Antenata l care: history of infertil ity 637357350 Completed Eli Brizuela l [facility] 3 15:14:46 Group B Streptoc occus carrier 2206832727 103 Completed bacteriu berta Eli Chata l [facility] 3 15:14:45 Maternal obesity complica ting pregnanc y, childbir th and the puerperi um, antepart um 3762248920 07 Completed BMI 39- ante testing at 37w Eli alvarado [facility] 3 15:14:46 Chronic hyperten allison in obstetri c context 2645189 Completed procardi a , baseline labs, ASA Eli alvarado [facility] 3 15:14:46 Placenta circumva llata 8429627 Completed Serial growth u/s Eli Brizuela l [facility] 3 15:14:45 Pre-ecla mpsia 866058345 Completed Eli Brizuela l [facility] 3 15:14:45 Abnormal cervical Papanico laou smear 977618833 Active 2023 3 lgsil HPV high risk 1 ascus HPV high risk Kenyetta Solano [facility], [facility] 4 11:59:57 Herpes simplex 85034806 Active 2024 Kenyetta Solano null, [facility] 5 16:40:53 Human papillom a virus infectio n 191373286 Active 2024 Kenyetta Solano null, [facility] 5 16:40:59 Endometr iosis (clinica l) 550497044 Active 2024 Kenyetta Russ null, [facility] 5 16:41:22 Pregnanc y 62459149 Active 2024 Kenyetta moreno, [facility] 5 16:03:06 Twin pregnanc y 47363835 Active 38 wk delivery antenata l testing @ 32wks per [facility] Schedule d rpt 08/27 ONLY Tabatha moreno, [facility] 5 12:20:16 Antenata l care: history of infertil ity 122991581 Active Peter Bryant CNM [address], [place], [address], [facility] 5 13:48:37 Past pregnanc y history of pre-ecla mpsia 1610543081 14816 Active bASA x2 Tabatha Flanagan null, [facility] 5 17:10:40 Large for gestatio n age fetus 635441312 Active less then 30 sec shoulder dystocia Peter Bryant CNM [address], [place], [address], [facility] 5 13:51:09 Past pregnanc y history of shoulder dystocia 546309267 Active Peter Bryant CNM [address], [place], [address], [place] [facility] 5 13:52:04 Chronic hyperten allison in obstetri c context 2719851 Active Peter Bryant CNM [address], [place], [address], [place] [facility] 5 13:52:55 Palpitat ions 36511454 Active Holter monitor faxed to [facility] 07/29 Tabatha Green null, [facility] 5 14:05:23 Palpitat ions 85234939 Active Holter monitor faxed to [facility] 07/29 Tabatha Green null, [facility] 5 14:05:23 Migraine 90498297 Active magnesiu m, Excedrin tension, sumatrip tatum Tabatha Green null, [facility] 5 17:11:50 Migraine 89245861 Active magnesiu m, Excedrin tension, sumatrip tatum Tabatha Green null, [facility] 5 17:11:50 Glucose toleranc e test outside referenc e range 717630104 Active 2024 checking blood sugars for 2 week instead for doing 3 hour Kenyetta moreno, [facility] 17:53:21 Glucose toleranc e test outside referenc e range 643835629 Active 2024 checking blood sugars for 2 week instead for doing 3 hour Kenyetta moreno, [facility] 5 17:53:21 Gestatio nal diabetes mellitus 66349715 Active 2024 Kenyetta moreno, [facility] 5 11:47:25 Gestatio nal diabetes mellitus 90587916 Active 2024 [facility] 11:47:25 Finding of general energy 840375436 Completed 201807/28/2020 Fatigue; Recorded Elsewher e: No Locat ion: Chaya arevalo [facility] S ource: EHR Plastic Sheets Supervisor mark: N Gretelti ce ID: [id number] Emmanuel lable Time: 10:45:00 AM Messi Garcia MD [address], [place], [address], [facility] 15:00:00 Acute vaginiti s 88534677 Completed 201807/28/2020 Vaginiti s;Record ed Elsewher e: No Locat ion: Chaya arevalo [facility] S ource: EHR Plastic Sheets Supervisor mark: N Gretelti ce ID: [id number] Emmanuel lable Time: 10:45:00 AM Messi Garcia MD [address], [place], [address], [facility] 1 15:00:04 Removal of intraute rine device Completed 201807/28/2020 Encounte r for removal of IUD;Earl rded Elsewher e: No Locat ion: [facility] S ource: EHR Plastic Sheets Supervisor mark: N Amanda ce ID: 0001 Emmanuel lable Time: 10:45:00 AM Messi Garcia MD [address], [place], [address], [facility] 15:00:08 Problem Notes None recorded. Procedures Surgical History Date Name Laterality Status Provider Name and Address Organization Details Recorded Time Laparoscopy completed Kenyetta Solano [facility] 05/10/2024 16:42:07 Date of Last Pap Smear completed Kenyetta Solano [facility] 08/16/2023 12:00:08 024 procedure on ear completed Kenyetta [facility] 08/16/2023 12:01:09 023 Colposcopy completed Peter Bryant CNM [address], [place], [address], [facility] 06/15/2022 16:59:00 023 Colposcopy completed [facility] 06/15/2022 16:38:21 023 Colposcopy completed [facility] 06/15/2022 16:38:49 022 intrauterine artificial insemination completed [facility] 06/26/2021 09:20:58 021 intrauterine artificial insemination completed [facility] 06/17/2021 12:15:01 021 intrauterine artificial insemination completed [facility] 06/17/2021 12:14:55 021 intrauterine artificial insemination completed [facility] 06/17/2021 12:14:45 021 intrauterine artificial insemination completed [facility] 06/17/2021 12:14:39 021 LAPAROSCOPY, DIAGNOSTIC (SURG) completed [facility] 08/19/2020 14:04:12 020 completed [facility] 10/01/2020 16:23:53 020 Colonoscopy completed [facility] 01/22/2021 10:59:09 019 procedure on neck completed [facility] 12/25/2019 11:25:51 019 hemorrhoidectomy completed [facility] 12/25/2019 11:24:57 016 cholecystectomy completed [facility] 07/16/2021 17:21:15 010 Appendectomy completed [facility] 12/25/2019 11:24:44 Imaging Results None recorded. Procedure Notes None recorded. Medical Equipment None Reported. Allergies Allergen ID Allergen Name Allergen Category Reaction Reaction Severity Criticality Documentation Date Start Date Code Code System Note Provider Name and Address Organization Details Recorded Time 75674 prednison e medicatio n hives Not available Not available 07/03/2024 8640 RxNorm Peter Bryant, NILSON [address], [place], [address] [place] [address], P[facility] 09:52:22 Medications Name Sig Start Date [...] Pregnyl 10,000 unit intramusc ular solution Inject 06983 units every day by intramus cular route [...] Elsewher e: Yes Loca tion: [facility] odify By: [email or web address] z Encoun ter DateTime [...] completed Not Available Not Available Not Available butallevon l-acetami nophen-ca ffeine 50 mg-300 mg-40 mg [...] VAIL INJECTIO N INTO RIGHT HIP LOT [id number] EXP 12/2021 Not Available Not Available Not [...] Address Organization Details Last Updated DateTime 11/13/2024 765007.52868 g 127/89 mm[Hg] Sun Babcock [facility] 11/13/2024 15:38:06 Social History Question Answer Notes LastModified by Organizat ion Details LastModified Time Tobacco Smoking Status Never Smoker Althea Holguin [facility] 06/15/2022 15:31:26 Do You Have An Advance Directive? No Information n ot available 07/28/2020 If You Are , What Was Your Level Of Alcohol Consumption Prior To ? None [email or web address] Information not available 06/15/2022 Are You Blind [...] Type Of Diet Are You Following? REGULAR [email or web address] Information n ot available 08/19/2020 What Is The Highest Grade Or Level Of School You Have Completed Or The Highest Degree You Have Received? [id number] Information not available 07/28/2020 Are There Any Guns Present In Your Home? No Information not available 07/28/2020 What Was The Date Of Your Most Recent Tobacco Screening? 10/23/2024 [email or web address] Information not available 10/23/2024 Have You Ever [...] How Much Tobacco Do You Smoke? No [email or web address] Information not available 12/25/2019 Do You Use Sunscreen Routinely? Yes Information not available 07/28/2020 Have You Used IV Drugs? No Information not available 07/28/2020 Do You Have Difficulty Walking Or Climbing Stairs? No [email or web address] Information not available 06/15/2022 Sex: Unknown Functional Status Question Answer Note LastModified by Organizat ion Details LastModified Time Do you use any illicit or recreational drugs? No Information not available 07/28/2020 Do you or have you ever used any other forms of tobacco or nicotine? No [email or web address] Information not available 06/15/2022 What is your level of alcohol consumption? Occasional Information not available 12/25/2019 Do you or have you ever used smokeless tobacco? Never used smokeless tobacco Information not available 06/15/2022 Are you able to walk? YESWOREST [email or web address] Information not available 08/19/2020 Are you able to care for yourself? Yes [email or web address] Information not available 06/15/2022 What is your occupation? [employer] Information not available 07/28/2020 Do you have difficulty dressing or bathing? No [email or web address] Information not available 06/15/2022 Do you or have you ever used e-cigarettes or vape? Never used electronic cigarettes [email or web address] Information not available 06/15/2022 What is your exercise level? Occasional [email or web address] Information not available 12/25/2019 Mental Status Question Answer Note LastModified by Organization D etails LastModified Time Do you feel stressed (tense, restless, nervous, or anxious, or unable to sleep at night)? [id number] Information not available 08/19/2020 Family History Relationship Description Onset Age of this Age Resolved Age Notes LastModified by Organization Details LastModified Time Maternal Grandmother Disorder of thyroid gland Not available 01/26 16:14:56 Mother Female infertility [email or web address] Not available 08/2024 13:51:15 Mother Disorder of thyroid gland [email or web address] Not available 01/26 16:14:56 Father Malignant tumor of pancreas Not available 2024 13:51:15 Brother Malignant neoplasm of prostate Not available 2024 13:51:15 Paternal Grandmother Malignant tumor of breast [email or web address] Not available 01/26 16:14:56 Paternal Grandmother Malignant neoplasm of lung [email or web address] Not available 01/26 16:14:56 Medical History Condition [...] SNOMED-CT Code Diagnosis ICD10 Code Diagnosis Note [id number] Messi Garcia MD [place] [address] [address] 10/22/2024 11:49:29 10/22/2024 13:06:50 Dichorionic diamniotic twin 569232949 O30.043 O24.410 O13.3 Z3A.31 [id number] [facility] [address],[place] [address] 10/23/2024 14:57:19 10/27/2024 19:34:15 Twin 93803687 O30.009 [id number] [facility] [address],[place] [address] 10/23/2024 14:57:44 10/23/2024 16:42:04 Gestation period, 31 weeks 37129844 Z3A.31 [id number] Messi Garcia MD [place] [address],[place] [address] 10/30/2024 11:49:15 10/30/2024 12:53:32 Dichorionic diamniotic twin 493987987 O30.043 O24.410 O16.3 Z3A.32 [id number] Peter Bryant [facility] [address],[place] [address] 10/30/2024 11:49:41 10/30/2024 13:44:54 Gestation period, 32 weeks 0779361 Z3A.32 [id number] Messi Garcia MD [place] [address],[place] [address] 11/06/2024 14:02:15 11/06/2024 15:08:32 Dichorionic diamniotic twin 636188210 O30.043 O24.414 O24.410 [id number] ALEC WILKINSON MD [place] [address],[place] [address] 11/06/2024 14:02:26 11/06/2024 17:33:51 Chronic hypertension complicating AND/OR reason for care during 37860010 O10.919 [id number] [facility] [address],[place] [address] 11/06/2024 14:02:37 11/06/2024 16:26:16 Gestation period, 33 weeks 08545928 Z3A.33 Dichorioni c diamniotic twin 224930715 O30.043 [id number] Messi Garcia MD [place] [address],[place] [address] 11/13/2024 13:58:59 11/13/2024 15:10:18 Dichorionic diamniotic twin 773334751 O30.043 O24.410 O16.3 O99.213 Z3A.34 [id number] [facility] [address],[place] [address] 11/13/2024 13:59:12 11/13/2024 15:41:29 Chronic hypertension complicating AND/OR reason for care during 02194938 O10.919 [id number] Peter Bryant [facility] [address],[place] [address] 11/13/2024 13:59:25 11/13/2024 16:05:11 Gestation period, 34 weeks 59062376 Z3A.34 Health Concerns Section Related Observation LastModified by Organization Detai ls LastModified Time None Recorded Concern Status LastModified by Organization Details LastModified Time None Recorded Payers Encounter Date Sequence Insurance Name Policy Number Policy Steele Covered Member ID Steele Member ID Guarantor Name 11/13/2024 1 [facility] [id number] Luis Antonio Mo [id number] Yessica Mo OBGyn Episode Ob Episode Information Episode Created Date Number of Fetuses Patient Bloodtype Patient rh Status Prepregnancy Weight lbs Domestic Partner Domestic Partner Phone Father Name Chemistry Quality Control Analyst Status 06/05/19 25 2 A Positive 198 Gabriel Mo OPEN Fetus Data First Name Last Name Admitted to NICU Weight (g) Sex Living Outcome Pediatric Complications Fetus ID Race Codes Race Delivery Type [id number] Problems Problem Notes Anatomy with MFM - 07/31/24 1 300 [facility] U/S & OV [facility] 08/27/24 US only 1:00PM Problem Name Start Date End Date Resolution Snomed Code Not e care: history of infertility 016453034 Past history of shoulder dystocia 271676628 Large for gestation age fetus 719045660 less then 30 se c shoulder dystocia Past history of pre-eclampsia 337883104067553 bASA x2 Migraine 07412258 magnesium, Excedrin tension, sumatriptan 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 7050824 Palpitations 48886873 Holter monitor faxed to [facility] 07/29 Gestational diabetes mellitus 10/10/2024 [id number] Glucose tolerance test outside reference range 10/01/2024 [id number] 10/01/2024 ecking blood sugars for 2 week instead for doing 3 hour Twin [id number] 38 wk deliveryantenatal testing @ 32wks per [facility] Scheduled rpt 08/27 us ONLY [...] Weight in lbs Pre/Post Dialysis Refused Weight 207.201630416985 BP Diastolic BP Location Tested BP Systolic [...] disability paperwork. will plan on referral to [facility] for anatomy and history of HTN/preeclampsia, twin [...] Type Weight in lbs Pre/Post Dialysis Refused 214.490561676985 BP Diastolic BP Location Tested BP Systolic [...] Weight in lbs Pre/Post Dialysis Refused Weight 216.331921095913 BP Diastolic BP Location Tested BP Systolic [...] No bleeding. Will send for anatomy at [facility]. Will measure for belly band [...] Type Weight in lbs Pre/Post Dialysis Refused 220.583646635433 BP Diastolic BP Location Tested BP Systolic [...] Type Weight in lbs Pre/Post Dialysis Refused 227.583305366116 BP Diastolic BP Location Tested BP Systolic [...] Weight in lbs Pre/Post Dialysis Refused Weight 229.619415860019 BP Diastolic BP Location Tested BP Systolic BP Type 89 133 Fetus Heart Rate Present Fetus Movement A Yes B Yes Comments Patient is having pressure, contractions and swelling. Flowsheet Date 08/29/2024 Mckinney Score Blood Edema Fundus Height Fundus Units Glucose Ketones Leukocytes Nitrite Labor Signs Protein Cervic Dilation Cervic Effacement Cervic Station Type Weight in lbs Pre/Post Dialysis Refused 232.43074506992 BP Diastolic BP Location Tested BP Systolic [...] Type Weight in lbs Pre/Post Dialysis Refused 236.706498240177 BP Diastolic BP Location Tested BP Systolic [...] Type Weight in lbs Pre/Post Dialysis Refused 234.412639459538 BP Diastolic BP Location Tested BP Systolic BP Type 87 138 Fetus Heart Rate Present Fetus Movement A Yes B Yes Comments Patient is having pain and c ontractions and swelling. 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 for education general manager referral to [facility], eduction and precautions f/u [...] Weight in lbs Pre/Post Dialysis Refused Weight 241.432188184773 BP Diastolic BP Location Tested BP Systolic BP Type 82 125 Fetus Heart Rate Present Fetus Movement Comments Flowsheet Date 10/23/2024 Cmkinney Score Blood Edema Fundus Height Fundus Units Glucose Ketones Leukocytes Nitrite Labor Signs Protein Cervic Dilation Cervic Effacement Cervic Station neg trace Type Weight in lbs Pre/Post Dialysis Refused 241.72470248510 BP Diastolic BP Location Tested BP Systolic [...] Type Weight in lbs Pre/Post Dialysis Refused 248.660258938195 BP Diastolic BP Location Tested BP Systolic [...] Type Weight in lbs Pre/Post Dialysis Refused 238.852503815917 BP Diastolic BP Location Tested BP Systolic [...]
--- OUTSIDE RECORDS SUMMARY | 2024-11-14 16:36 | XMS_ITS | Continuity of Care Document ---
Author Organization [facility] Address [address] [place] [address] Care Team Providers Care Industrial Tractor Driver Name Role Phone [facility] EDUIN HAMMONDS Data Communications Technician [phone] JILLIAN LAO Primary Care Provider Assessment No [...] None recorde d. Imaging US, obstetr ic, follow- up 2024 025 [facility], [address], [place], [address], 11/13/2024 17:23:13 US, obstetr ic, biophys ical profile + non-str ess test 2024 025 [facility], [address], [place], [address], 11/13/2024 18:14:56 US, obstetr ic, biophys ical profile + non-str ess test [facility]24 [email or web address] [address], [address], [place], [address], 11/13/2024 18:15:01 US, obstetr ic, follow- up 2024 025 [facility], [address], [place], [address], 11/13/2024 17:22:48 Medication Orders None recorde d. Patient TargetsNo targets recorded. Patient InstructionsNo instructions recorded. Reason for Referral None Reported. Results Created Date Observation Date Name Description Value Unit Range Abnormal Flag Note LastModifiedBy Organization Detail LastModifiedTime 06/12/1906/12/2024 US, obste tric, limit ed No observ ation record ed. [email or web address] [facility] [address], [place], [address], 06/12/2024 18:21:33 06/12/19 25 06/12/2024 US, obste tric, follo w-up No observ ation record ed. [address], [place], [address], 06/13/2024 18:51:30 07/01/19 25 07/01/2024 US, obste tric, limit ed No observ ation record ed. [email or web address] [facility] [address], [place], [address], 07/01/2024 18:30:39 07/01/19 25 07/01/2024 US, obste tric, follo w-up No observ ation record ed. [email or web address] [address], [place], [address], 07/02/2024 23:15:06 07/13/19 25 07/12/2024 US, obste tric, limit ed No observ ation record ed. [email or web address] [address], [place], [address], 07/12/2024 17:50:02 08/09/19 25 08/08/2024 XR, chest , 1 view No observ ation record ed. [address], [place], [address], 08/12/2024 15:18:19 08/10/19 25 07/31/2024 US, obste tric, follo w-up No observ ation record ed. [email or web address] [facility] [place], [address], 08/20/2024 12:19:45 08/10/19 25 07/31/2024 US, obste tric, follo w-up No observ ation record ed. [email or web address] [facility] [address] [place], [address], 08/12/2024 22:49:50 08/20/19 25 08/08/2024 ilya r monit or No observ ation record ed. [place] [address] [facility] [address], [place], [address], 08/21/2024 11:36:44 08/20/19 25 08/08/2024 ilya r monit or No observ ation record ed. [facility] [address] [facility] [address], [place], [address], 08/28/2024 13:01:57 08/23/19 25 08/22/2024 US, obste tric, follo w-up No observ ation record ed. [email or web address] [address], [place], [address], 08/27/2024 13:26:37 08/23/19 25 08/22/2024 US, obste tric, limit ed No observ ation record ed. [facility] [address], [place], [address], 08/22/2024 13:56:22 08/23/19 25 08/22/2024 US, obste tric, limit ed No observ ation record ed. [email or web address] [address], [place], [address], 08/28/2024 22:09:02 08/28/19 25 08/27/2024 US, kidne y No observ ation record ed. [place] [address], [place], [address], 08/28/2024 18:26:00 08/28/19 25 08/27/2024 US, obste tric, follo w-up No observ ation record ed. [address] [facility] [address] [place], [address], 09/10/2024 06:50:18 08/28/19 25 08/27/2024 US, obste tric, follo w-up No observ ation record ed. [address] [facility] [address] [place], [address], 08/28/2024 18:26:00 09/04/19 25 09/03/2024 non-s tress test No observ ation record ed. [address] [facility] [address], [place], [address], 09/16/2024 09:45:28 09/19/19 25 09/18/2024 US, obste tric, limit ed No observ ation record ed. [email or web address] [facility] [address], [place], [address], 09/18/2024 18:16:30 09/19/19 25 09/18/2024 US, obste tric, follo w-up No observ ation record ed. [email or web address] [address], [place], [address], 09/19/2024 14:32:58 09/25/19 25 09/24/2024 US, obste tric, follo w-up No observ ation record ed. [email or web address] [facility] [address] [place], [address], 09/25/2024 11:31:18 09/25/19 25 09/24/2024 US, obste tric, follo w-up No observ ation record ed. [email or web address] [facility] [address] [place], [address], 10/10/2024 11:06:25 10/10/19 25 10/09/2024 US, obste tric, limit ed No observ ation record ed. [email or web address] [address], [place], [address], 10/09/2024 17:38:41 10/10/19 25 10/09/2024 US, obste tric, follo w-up No observ ation record ed. ervin [facility] [address], [place], [address], 10/09/2024 17:38:53 10/10/1910/09/2024 US, obste tric, follo w-up No observ ation record ed. [email or web address] [address], [place], [address], 10/14/2024 10:19:44 10/23/19 25 10/22/2024 US, obste tric, follo w-up No observ ation record ed. [email or web address] [facility] [address], [place], [address], 10/22/2024 17:16:15 10/23/1910/22/2024 US, obste tric, follo w-up No observ ation record ed. [email or web address] [facility] [address], [place], [address], 10/22/2024 17:16:31 10/23/19 25 10/22/2024 US, obste tric, follo w-up No observ ation record ed. LANA [address] [facility], [place], [address], 10/29/2024 21:52:03 10/27/19 25 10/23/2024 non-s tress test No observ ation record ed. [email or web address] [facility] [address], [place], [address], 10/26/2024 08:57:06 10/29/1910/23/2024 non-s tress test No observ ation record ed. [email or web address] [facility] [address], [place], [address], 10/28/2024 11:44:35 10/31/19 25 10/30/2024 US, obste tric, bioph ysica l profi le + non-s tress test No observ ation record ed. [email or web address] [facility] [address], [place], [address], 10/30/2024 13:28:58 10/31/19 25 10/30/2024 US, obste tric, bioph ysica l profi le + non-s tress test No observ ation record ed. [email or web address] [facility] [address], [place], [address], 10/30/2024 13:29:11 10/31/19 25 10/30/2024 US, obste tric, follo w-up No observ ation record ed. [email or web address] [address], [place], [address], 10/31/2024 18:00:31 11/07/19 25 11/06/2024 US, obste tric, bioph ysica l profi le + non-s tress test No observ ation record ed. [email or web address] [facility] [address], [place], [address], 11/06/2024 17:48:20 11/07/19 25 11/06/2024 US, obste tric, bioph ysica l profi le + non-s tress test No observ ation record ed. [email or web address] [facility] [address], [place], [address], 11/06/2024 17:48:32 11/07/19 25 11/06/2024 non-s tress test No observ ation record ed. [facility] [address], [place], [address], 11/06/2024 17:22:40 11/07/19 25 11/06/2024 US, obste tric, bioph ysica l profi le + non-s tress test No observ ation record ed. [email or web address] [address], [place], [address], 11/11/2024 12:03:01 11/10/1911/09/2024 imagi ng/di agnos tic resul t No observ ation record ed. [place] [id number], [place], [address], 11/11/2024 17:42:12 11/13/19 25 11/12/2024 non-s tress test No observ ation record ed. [email or web address] [place] [address] [address], [place], [address], 11/14/2024 14:47:58 11/14/1911/13/2024 non-s tress test No observ ation record ed. [email or web address] [place] [address] [address], [place], [address], 11/14/2024 14:45:58 11/14/19 25 11/13/2024 US, obste tric, follo w-up No observ ation record ed. [email or web address] [facility] [address], [place], [address], 11/13/2024 18:14:47 11/14/19 25 11/13/2024 US, obste tric, bioph ysica l profi le + non-s tress test No observ ation record ed. [email or web address] [facility] [address], [place], [address], 11/13/2024 18:14:56 11/14/19 25 11/13/2024 US, obste tric, bioph ysica l profi le + non-s tress test No observ ation record ed. [email or web address] [facility] [address], [place], [address], 11/13/2024 18:15:06 11/14/19 25 11/13/2024 US, obste tric, follo w-up No observ ation record ed. [email or web address] [facility] [address], [place], [address], 11/13/2024 18:15:15 11/14/19 25 11/13/2024 non-s tress test No observ ation record ed. [email or web address] [facility] [address], [place], [address], 11/13/2024 15:40:45 11/14/1911/13/2024 US, obste tric, follo w-up No observ ation record ed. LANA [address], [place], [address], 11/14/2024 16:09:55 Result Notes None recorded. Problems Name Problem SNOMED Code Status Onset Date Resolution Date Notes Provider Name and Address Organization Details Recorded Time Pregnanc y 82523129 Completed 202106/09/2022 Kenyetta Solano null, [facility] 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 3 15:14:45 Hypothyr oidism 53551224 Completed Eli Bohnenstieh l null, [facility] 3 15:14:45 Antenata l care: history of infertil ity 590385435 Completed Eli Bohnenstieh l null, [facility] 3 15:14:46 Group B Streptoc occus carrier 8494430434 103 Completed bacteriu berta Eli Bohnenstieh l null, [facility] 3 15:14:45 Maternal obesity complica ting pregnanc y, childbir th and the puerperi um, antepart um 5600855665 07 Completed BMI 39- ante testing at 37w Eli Bohnenstieh l null, [facility] 3 15:14:46 Chronic hyperten allison in obstetri c context 0601690 Completed procardi a , baseline labs, ASA Eli alvarado null, [facility] 3 15:14:46 Placenta circumva llata 5353864 Completed Serial growth u/s Eli alvarado null, [facility] 3 15:14:45 Pre-ecla mpsia 491708014 Completed Eli alvarado [facility], [facility] 3 15:14:45 Abnormal cervical Papanico laou smear 797075593 Active 2023 3 lgsil HPV high risk 1 ascus HPV high risk Kenyetta Solano [facility], [facility] 4 11:59:57 Herpes simplex 08083223 Active 2024 Kenyetta Solano [facility], [facility] 5 16:40:53 Human papillom a virus infectio n 607292795 Active 2024 Kenyetta Solano [facility], [facility] 5 16:40:59 Endometr iosis (clinica l) 376446736 Active 2024 Kenyetta Solaon [facility], [facility] 5 16:41:22 Pregnanc y 46005683 Active 2024 Kenyetta Solano [facility], [facility] 5 16:03:06 Twin pregnanc y 02762401 Active 38 wk delivery antenata l testing @ 32wks per [facility] Schedule d rpt 08/27 us ONLY Tabatha Flanagan null, [facility] 5 12:20:16 Antenata l care: history of infertil ity 323437249 Active Peter Bryant CNM [address], [place], [address], [facility] 5 13:48:37 Past pregnanc y history of pre-ecla mpsia 3495344810 20535 Active bASA x2 Tabatha moreno, [facility] 5 17:10:40 Large for gestatio n age fetus 438515973 Active less then 30 sec shoulder dystocia Peter Bryant CNM [address], [place], [address], [facility] 5 13:51:09 Past pregnanc y history of shoulder dystocia 149125183 Active Peter Bryant CNM [address], [place], [address], [facility] 5 13:52:04 Chronic hyperten allison in obstetri c context 7359561 Active Peter Bryant CNM [address], [place], [address], [facility] 5 13:52:55 Palpitat ions 73995535 Active Holter monitor faxed to [facility] nt Cardiol[facility] 324 Tabatha moreno, [facility] 5 14:05:23 Palpitat ions 67641225 Active Holter monitor faxed to [facility] nt Cardiolo gy 324 Tabatha moreno, [facility] 5 14:05:23 Migraine 57114367 Active magnesiu m, Excedrin tension, sumatrip tatum Tabatha moreno, [facility] 5 17:11:50 Migraine 23234377 Active magnesiu m, Excedrin tension, sumatrip tatum Tabatha Flanagan null, [facility] 5 17:11:50 Glucose toleranc e test outside referenc e range 618407220 Active 2024 5 checking blood sugars for 2 week instead for doing 3 hour Kenyetta Solano [facility], [facility] 5 17:53:21 Glucose toleranc e test outside referenc e range 003064584 Active 2024 5 checking blood sugars for 2 week instead for doing 3 hour Kenyetta Solano [facility], [facility] 5 17:53:21 Gestatio nal diabetes mellitus 14493865 Active 2024 Kenyetta Solano null, [facility] 5 11:47:25 Gestatio nal diabetes mellitus 96115374 Active 2024 Kenyetta Solano [facility], [facility] 5 11:47:25 Finding of general energy 675806999 Completed 201807/28/2020 Fatigue; Recorded Elsewher e: No Locat ion: Chaya arevalo [facility] S ource: EHR Tank Builder Helper mark: N Gretelti ce ID: [email or web address] Emmanuel lable Time: 10:45:00 AM Messi Garcia MD [address], [place], [address], [facility] 1 15:00:00 Acute vaginiti s 60905887 Completed 201807/28/2020 Vaginiti s;Record ed Elsewher e: No Locat ion: Chaya arevalo [facility] S ource: EHR Tank Builder Helper mark: N Practi ce ID: [id number] Emmanuel lable Time: 10:45:00 AM Messi Garcia MD [address], [place], [address], [facility] 1 15:00:04 Removal of intraute rine device Completed 201807/28/2020 Encounte r for removal of IUD;Earl rded Elsewher e: No Locat ion: Chaya arevalo [facility] S ource: EHR Tank Builder Helper mark: N Amanda ce ID: [id number] Emmanuel lable Time: 10:45:00 AM Messi Garcia MD [address], [place], [address], [facility] 15:00:08 Problem Notes None recorded. Procedures Surgical History Date Name Laterality Status Provider Name and Address Organization Details Recorded Time 024 Laparoscopy completed [facility] 05/10/2024 16:42:07 024 Date of Last Pap Smear completed [facility] 08/16/2023 12:00:08 024 procedure on ear completed [facility] 08/16/2023 12:01:09 023 Colposcopy completed Peter Bryant CNM [address], [place], [address], [facility] 06/15/2022 16:59:00 023 Colposcopy completed Kenyetta [facility] 06/15/2022 16:38:21 023 [facility] 16:38:49 022 intrauterine artificial insemination completed Kenyetta [facility] 06/26/2021 09:20:58 021 intrauterine artificial insemination completed [facility] 06/17/2021 12:15:01 021 intrauterine artificial insemination completed Kenyetta [facility] 06/17/2021 12:14:55 021 intrauterine artificial insemination completed [facility] 06/17/2021 12:14:45 021 intrauterine artificial insemination completed [facility] 06/17/2021 12:14:39 021 LAPAROSCOPY, DIAGNOSTIC (SURG) completed [facility] 08/19/2020 14:04:12 020 completed [facility] 10/01/2020 16:23:53 020 Colonoscopy completed [facility] 01/22/2021 10:59:09 019 procedure on neck completed [facility] 12/25/2019 11:25:51 019 hemorrhoidectomy completed [facility] 12/25/2019 11:24:57 016 cholecystectomy completed [facility] 07/16/2021 17:21:15 010 Appendectomy completed [facility] 12/25/2019 11:24:44 Imaging Results None recorded. Procedure Notes None recorded. Medical Equipment None Reported. Allergies Allergen ID Allergen Name Allergen Category Reaction Reaction Severity Criticality Documentation Date Start Date Code Code System Note Provider Name and Address Organization Details Recorded Time 40789 prednison e medicatio n hives Not available Not available 07/03/2024 8685 RxNorm Peter Bryant CNM [address], [place], [address] , [facility] 09:52:22 Medications Name Sig Start Date [...] Pregnyl 10,000 unit intramusc ular solution Inject 39767 units every day by intramus cular route [...] 6 HOURS NEEDED FOR ITCHING AND RASH 12/26 /2024 completed Not Available Not Available Not Available [...] jose antonio Cevallos e: Yes Loca tion: [facility] odify By: [email or web address] z Encoun ter DateTime : 01/19/20 19 10:45:00 AM Not Available Not Available Not [...] cular route. 06/26 completed PATIENT GIVEN (2) NOVBURAK THOMAS INJECTIO N INTO RIGHT HIP LOT [id number] EXP 12/2021 Not Available Not Available Not [...] Address Organization Details Last Updated DateTime 11/13/2024 744206.54978 g 127/89 mm[Hg] Sun Babcock [facility] 11/13/2024 15:38:06 Social History Question Answer Notes LastModified by Organizat ion Details LastModified Time Tobacco Smoking Status Never Smoker Althea Holguin tiffanie, [facility] 06/15/2022 15:31:26 Do You Have An Advance Directive? No Information n ot available 07/28/2020 If You Are , What Was Your Level Of Alcohol Consumption Prior To ? None [email or web address] Information not available 06/15/2022 Are You Blind [...] Type Of Diet Are You Following? REGULAR [email or web address] Information n ot available 08/19/2020 What Is The Highest Grade Or Level Of School You Have Completed Or The Highest Degree You Have Received? [id number] Information not available 07/28/2020 Are There Any Guns Present In Your Home? No Information not available 07/28/2020 What Was The Date Of Your Most Recent Tobacco Screening? 10/23/2024 [email or web address] Information not available 10/23/2024 Have You Ever [...] Have Difficulty Walking Or Climbing Stairs? No [email or web address] Information not available 06/15/2022 Sex: Unknown Functional Status Question Answer Note LastModified by Organizat ion Details LastModified Time Do you use any illicit or recreational drugs? No Information not available 07/28/2020 Do you or have you ever used any other forms of tobacco or nicotine? No [email or web address] Information not available 06/15/2022 What is your level of alcohol consumption? Occasional [email or web address] Information not available 12/25/2019 Do you or have you ever used smokeless tobacco? Never used smokeless tobacco Information not available 06/15/2022 Are you able to walk? YESWOREST [email or web address] Information not available 08/19/2020 Are you able to care for yourself? Yes Information not available 06/15/2022 What is your occupation? [employer] Information not available 07/28/2020 Do you have difficulty dressing or bathing? No [email or web address] Information not available 06/15/2022 Do you or have you ever used e-cigarettes or vape? Never used electronic cigarettes Information not available 06/15/2022 What is your exercise level? Occasional [email or web address] Information not available 12/25/2019 Mental Status Question Answer Note LastModified by Organization D etails LastModified Time Do you feel stressed (tense, restless, nervous, or anxious, or unable to sleep at night)? [id number] [email or web address] Information not available 08/19/2020 Family History Relationship Description Onset Age of this Age Resolved Age Notes LastModified by Organization Details LastModified Time Maternal Grandmother Disorder of thyroid gland [email or web address] Not available 01/26 16:14:56 Mother Female infertility [email or web address] Not available 08/2024 13:51:15 Mother Disorder of thyroid gland [email or web address] Not available 01/26 16:14:56 Father Malignant tumor of pancreas [email or web address] Not available 2024 13:51:15 Brother Malignant neoplasm of prostate [email or web address] Not available 2024 13:51:15 Paternal Grandmother Malignant tumor of breast [email or web address] Not available 01/26 16:14:56 Paternal Grandmother Malignant neoplasm of lung [email or web address] Not available 01/26 16:14:56 Medical History Condition [...] SNOMED-CT Code Diagnosis ICD10 Code Diagnosis Note [id number] Messi Garcia MD [facility] [address],[place] [address] 10/22/2024 11:49:29 10/22/2024 13:06:50 Dichorionic diamniotic twin 640632674 O30.043 O24.410 O13.3 Z3A.31 [id number] Peter Bryant [facility] [address],[place] [address] 10/23/2024 14:57:19 10/27/2024 19:34:15 Twin 63779826 O30.009 100537 [facility] [address],[place] [address] 10/23/2024 14:57:44 10/23/2024 16:42:04 Gestation period, 31 weeks 13835663 Z3A.31 [id number] Messi Garcia MD [facility] [address],[place] [address] 10/30/2024 11:49:15 10/30/2024 12:53:32 Dichorionic diamniotic twin 370928607 O30.043 O24.410 O16.3 Z3A.32 [id number] [facility] [address],[place] [address] 10/30/2024 11:49:41 10/30/2024 13:44:54 Gestation period, 32 weeks 4266709 Z3A.32 [id number] Messi Garcia MD [facility] [address],[place] [address] 11/06/2024 14:02:15 11/06/2024 15:08:32 Dichorionic diamniotic twin 108410988 O30.043 O24.414 O24.410 [id number] ALEC WILKINSON MD [facility] [address],[place] [address] 11/06/2024 14:02:26 11/06/2024 17:33:51 Chronic hypertension complicating AND/OR reason for care during 06740263 O10.919 [id number] [facility] [address],[place] [address] 11/06/2024 14:02:37 11/06/2024 16:26:16 Gestation period, 33 weeks 78310653 Z3A.33 Dichorioni c diamniotic twin 114876851 O30.043 [id number] Messi Garcia MD [facility] [address],[place] [address] 11/13/2024 13:58:59 11/13/2024 15:10:18 Dichorionic diamniotic twin 854955311 O30.043 O24.410 O16.3 O99.213 Z3A.34 [id number] [facility] [address],[place] [address] 11/13/2024 13:59:12 11/13/2024 15:41:29 Chronic hypertension complicating AND/OR reason for care during 17863550 O10.919 [id number] [facility] [address],[place] [address] 11/13/2024 13:59:25 11/13/2024 16:05:11 Gestation period, 34 weeks 82229394 Z3A.34 Health Concerns Section Related Observation LastModified by Organization Detai ls LastModified Time None Recorded Concern Status LastModified by Organization Details LastModified Time None Recorded Payers Encounter Date Sequence Insurance Name Policy Number Policy Steele Covered Member ID Steele Member ID Guarantor Name 11/13/2024 1 [facility] [id number] Luis Antonio Mo [id number] Yessica Jallohcoleen OBGyn Episode Ob Episode Information Episode Created Date Number of Fetuses Patient Bloodtype Patient rh Status Prepregnancy Weight lbs Domestic Partner Domestic Partner Phone Father Name Sisal Operator Status 06/05/19 25 2 A Positive 198 Gabriel Mo OPEN Fetus Data First Name Last Name Admitted to NICU Weight (g) Sex Living Outcome Pediatric Complications Fetus ID Race Codes Race Delivery Type [id number] Problems Problem Notes Anatomy with [facility] - 07/31/24 1 300 [facility] U/S & OV [facility] 08/27/24 US only 1:00PM Problem Name Start Date End Date Resolution Snomed Code Not e care: history of infertility 182945993 Past history of shoulder dystocia 871832608 Large for gestation age fetus 255451587 less then 30 se c shoulder dystocia Past history of pre-eclampsia 237649755750394 bASA x2 Migraine 38916044 magnesium, Excedrin tension, sumatriptan 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 5123721 Palpitations 36273533 Holter monitor faxed to [facility] 07/29 Gestational diabetes mellitus 10/10/2024 [id number] Glucose tolerance test outside reference range 10/01/2024 [id number] 10/01/2024 ecking blood sugars for 2 week instead for doing 3 hour Twin [id number] 38 wk deliveryantenatal testing @ 32wks per MF Scheduled rpt 08/27 us ONLY Darren Calculation [...] Weight in lbs Pre/Post Dialysis Refused Weight 207.332298654567 BP Diastolic BP Location Tested BP Systolic [...] disability paperwork. will plan on referral to [facility] for anatomy and history of HTN/preeclampsia, [...] Type Weight in lbs Pre/Post Dialysis Refused 214.715108802344 BP Diastolic BP Location Tested BP Systolic [...] Weight in lbs Pre/Post Dialysis Refused Weight 216.883825473103 BP Diastolic BP Location Tested BP Systolic [...] No bleeding. Will send for anatomy at [facility]. Will measure for belly band today due [...] Type Weight in lbs Pre/Post Dialysis Refused 220.063257633492 BP Diastolic BP Location Tested BP Systolic [...] Type Weight in lbs Pre/Post Dialysis Refused 227.255214248655 BP Diastolic BP Location Tested BP Systolic BP Type 70 119 Fetus Heart Rate Present A 145 B 147 Fetus Movement A Yes B Yes Comments Patient is having contractio ns. shortness of breathe, pressure and pain in pelvic area, and right leg numbness. discussed PT, low activity, +FM, has f/u with [facility], reviewed ED records Flowsheet Date 08/22/2024 Mckinney [...] Weight in lbs Pre/Post Dialysis Refused Weight 229.989910105727 BP Diastolic BP Location Tested BP Systolic BP Type 89 133 Fetus Heart Rate Present Fetus Movement A Yes B Yes Comments Patient is having pressure, contractions and swelling. Flowsheet Date 08/29/2024 Mckinney Score Blood Edema Fundus Height Fundus Units Glucose Ketones Leukocytes Nitrite Labor Signs Protein Cervic Dilation Cervic Effacement Cervic Station Type Weight in lbs Pre/Post Dialysis Refused 232.49292849612 BP Diastolic BP Location Tested BP Systolic [...] Type Weight in lbs Pre/Post Dialysis Refused 236.659047903223 BP Diastolic BP Location Tested BP Systolic [...] Type Weight in lbs Pre/Post Dialysis Refused 234.765946564779 BP Diastolic BP Location Tested BP Systolic BP Type 87 138 Fetus Heart Rate Present Fetus Movement A Yes B Yes Comments Patient is having pain and c ontractions and swelling. 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 referral to [facility], eduction and precautions f/u [...] Weight in lbs Pre/Post Dialysis Refused Weight 241.407615514791 BP Diastolic BP Location Tested BP Systolic BP Type 82 125 Fetus Heart Rate Present Fetus Movement Comments Flowsheet Date 10/23/2024 Mckinney Score Blood Edema Fundus Height Fundus Units Glucose Ketones Leukocytes Nitrite Labor Signs Protein Cervic Dilation Cervic Effacement Cervic Station neg trace Type Weight in lbs Pre/Post Dialysis Refused 241.61006255553 BP Diastolic BP Location Tested BP Systolic [...] Type Weight in lbs Pre/Post Dialysis Refused 248.841835797808 BP Diastolic BP Location Tested BP Systolic [...] Type Weight in lbs Pre/Post Dialysis Refused 238.322378948335 BP Diastolic BP Location Tested BP Systolic [...]
--- OUTSIDE RECORDS SUMMARY | 2024-11-14 16:36 | XMS_ITS | Data Portability ---
Author Organization [facility] [place] [facility] Address [address] [place] [address] Care Team Providers Care Cupola Repairer Name Role Phone ZO MORA OTHER [phone] Assessment Encounter Date Assessment Date Assessment LastModified [...] auto diff 2018 019 [facility], [address] [address], [place], [address], 9 06:40:13 ferritin, serum or plasma 2018 019 [facility], [address] [facility] [address], [place], [address], 9 06:40:14 iron + total iron-bindin g capacity (TIBC), serum 2018 019 [facility], [address] [place] [address] 2, [place], [address], 9 06:40:14 HIV 1+2 AB + HIV 1 p24 Ag, qualitative immunoassay , serum 2018 019 [facility], [address], [place], [address], 9 07:12:01 HBsAg (hepatitis B surface Ag), EIA, serum 2018 019 [facility], [address], [place], [address], 9 07:12:02 hepatitis C Ab, signal-to-c utoff, serum or plasma 2018 019 [facility], [address], [place], [address], 9 07:12:01 RPR (rapid plasma reagin), serum 2018 019 [facility], [address], [place], [address], 9 07:12:00 hsv (1+2) igg Ab, serum 2018 019 [facility], [address] [facility], [place], [address], 9 07:12:00 CBC w/ auto diff 2018 019 [facility], [address] [facility], [place], [address], 9 07:11:59 Referral general surgeon referral 2018 019 LANA Moralez MD, [address] [facility] , [facility] [address], [place], [address], 9 12:38:24 ENT referral - Saw Dr. Mora --- need a second opinion. 2018 019 [facility], 2 [facility], [address], [place], [address], 9 17:55:21 Procedures None recorded. Surgeries None recorded. Imaging None recorded. Medication Orders ferrous sulfate 325 mg (65 mg iron) tablet [address] [facility], [address] [place] [address], [address], 9 11:26:58 Mucinex 600 mg tablet, extended release [address] [facility] [address] [facility], [address] [place] [address], [address], 9 00:24:12 ferrous sulfate 325 mg (65 mg iron) tablet [address] [facility] [address] [facility], [address] [place] [address], [address], 9 12:48:40 Tessalon Perles 100 mg capsule [address] [facility] [address] [facility], [address] [place] [address], [address], 9 00:24:06 Patient TargetsNo targets recorded. Patient Instructions Encounter Date Encounter Id Patient Instructions Last Modified By Organization Details Last Modified Time 07/27/2018 [id number] upper respirator y infection (cold): care instructions [facility] Not available 07/27/2018 13:23:41 08/29/2018 [id number] hemorrhoids: car e instructions Not available 08/29/2018 16:13:52 anemia: care instructions Not available 08/29/2018 18:08:26 09/05/2018 [id number] Acute Sinusitis: Care Instructions Not available 09/05/2018 12:48:40 11/13/2018 [id number] hemorrhoids: car e instructions [facility] Not available 11/27/2018 00:17:15 02/13/2019 [id number] dizziness: care instructions [facility] Not available 02/13/2019 11:26:58 electrocardiogra m interpretation* [facility] Not available 03/13/2019 15:05:29 Reason for Referral ENT Referral for Cervical ly mphadenopathy Saw Dr. Mora --- need a second opinion. Referring Physician: Lucero Sandoval, Family Medicine, Encounter Date: 07/27/2018 General Surgeon Referral for Hemorrhoids Referring Physician: Ricardo Ramirez, ASSISTANT PRESS OPERATOR OFFSET, Encounter Date: 08/29/2018 Results Created Date Observation Date Name Description Value Unit Range Abnormal Flag Note LastModifiedBy Organization Detail LastModifiedTime 07/04/19 19 07/05/2018 TSH + free T4, serum TSH 3.080 uIU/m L 0.450- 4.500 Not Available [facility] ([facility]) [address] [place], [address], 07/05/2018 09:23:03 07/04/19 19 07/05/2018 TSH + free T4, serum T4,free(dire ct) 1.06 NG/dL 0.82-1 .77 Not Available [facility] ([facility]) [address] [place], [address], 07/05/2018 09:23:03 07/04/19 19 07/04/2018 CBC w/ auto diff WBC 7.2 x10e3 /uL 3.4-10 .8 Not Available [facility] ([facility]) [address] [place], [address], 07/05/2018 09:23:03 07/04/19 19 07/04/2018 CBC w/ auto diff RBC 4.87 x10e6 /uL 3.77-5 .28 Not Available [facility] ([facility]) [address] [place], [address], 07/05/2018 09:23:03 07/04/19 19 07/04/2018 CBC w/ auto diff hemoglobin 11.5 g/dL 11.1-1 5.9 Not Available [facility] ([facility]) [address] [place], [address], 07/05/2018 09:23:03 07/04/19 19 07/04/2018 CBC w/ auto diff hematocrit 36.2 % 34.0-4 6.6 Not Available [facility] ([facility]) [address] [facility] [place], [address], 07/05/2018 09:23:03 07/04/19 19 07/04/2018 CBC w/ auto diff MCV 74 fL 79-97 below low normal Not Available [facility] ([facility]) [address] [facility] [place], [address], 07/05/2018 09:23:03 07/04/19 19 07/04/2018 CBC w/ auto diff MCH 23.6 pg 26.6-3 3.0 below low normal Not Available [facility] ([facility]) [address] [facility] [place], [address], 07/05/2018 09:23:03 07/04/19 19 07/04/2018 CBC w/ auto diff MCHC 31.8 g/dL 31.5-3 5.7 Not Available [facility] ([facility]) [address] [facility] [place], [address], 07/05/2018 09:23:03 07/04/19 19 07/04/2018 CBC w/ auto diff RDW 16.0 % 12.3-1 5.4 above high normal Not Available [facility] ([facility]) [address] [facility] [place], [address], 07/05/2018 09:23:03 07/04/19 19 07/04/2018 CBC w/ auto diff platelets 480 x10e3 /uL 150-37 9 above high normal Not Available [facility] ([facility]) [address] [facility] [place], [address], 07/05/2018 09:23:03 07/04/19 19 07/04/2018 CBC w/ auto diff neutrophils 64 % not estab. Not Available [facility] ([facility]) [address] [facility] [place], [address], 07/05/2018 09:23:03 07/04/19 19 07/04/2018 CBC w/ auto diff lymphs 28 % not estab. Not Available [facility] ([facility]) [address] [facility], [place], [address], 07/05/2018 09:23:03 07/04/19 19 07/04/2018 CBC w/ auto diff monocytes 6 % not estab. Not Available [facility] ([facility]) [address] [facility], [place], [address], 07/05/2018 09:23:03 07/04/19 19 07/04/2018 CBC w/ auto diff eos 1 % not estab. Not Available [facility] ([facility]) [address] [place], [address], 07/05/2018 09:23:03 07/04/19 19 07/04/2018 CBC w/ auto diff basos 1 % not estab. Not Available [facility] ([facility]) [address] [facility], [place], [address], 07/05/2018 09:23:03 07/04/19 19 07/04/2018 CBC w/ auto diff immature cells LEVI MAKER Not Available [facility] ([facility]) [address] [facility], [place], [address], 07/05/2018 09:23:03 07/04/19 19 07/04/2018 CBC w/ auto diff neutrophils (absolute) 4.6 x10e3 /uL 1.4-7. 0 Not Available [facility] ([facility]) [address] [place], [address], 07/05/2018 09:23:03 07/04/19 19 07/04/2018 CBC w/ auto diff lymphs (absolute) 2.0 x10e3 /uL 0.7-3. 1 Not Available [facility] ([facility]) [address] [place], [address], 07/05/2018 09:23:03 07/04/19 19 07/04/2018 CBC w/ auto diff monocytes(ab solute) 0.5 x10e3 /uL 0.1-0. 9 Not Available [facility] ([facility]) [address] [facility], [place], [address], 07/05/2018 09:23:03 07/04/19 19 07/04/2018 CBC w/ auto diff eos (absolute) 0.1 x10e3 /uL 0.0-0. 4 Not Available [facility] ([facility]) [address] [facility], [place], [address], 07/05/2018 09:23:03 07/04/19 19 07/04/2018 CBC w/ auto diff baso (absolute) 0.1 x10e3 /uL 0.0-0. 2 Not Available [facility] ([facility]) [address] [facility], [place], [address], 07/05/2018 09:23:03 07/04/19 19 07/04/2018 CBC w/ auto diff immature granulocytes 0 % not estab. Not Available [facility] ([facility]) [address] [facility], [place], [address], 07/05/2018 09:23:03 07/04/19 19 07/04/2018 CBC w/ auto diff immature grans (abs) 0.0 x10e3 /uL 0.0-0. 1 Not Available [facility] ([facility]) [address] [facility], [place], [address], 07/05/2018 09:23:03 07/04/19 19 07/04/2018 CBC w/ auto diff NRBC LEVI MAKER Not Available [facility] ([facility]) [address] [place], [address], 07/05/2018 09:23:03 07/04/19 19 07/04/2018 CBC w/ auto diff hematology comments: LEVI MAKER Not Available [facility] ([facility]) [address] [facility], [place], [address], 07/05/2018 09:23:03 07/04/19 19 07/05/2018 CMP, serum or plasm a glucose 90 mg/dL 65-99 Not Available [facility] ([facility]) [address] [place], [address], 07/05/2018 09:23:04 07/04/19 19 07/05/2018 CMP, serum or plasm a BUN 9 mg/dL 6-20 Not Available [facility] ([facility]) [address] [place], [address], 07/05/2018 09:23:04 07/04/19 19 07/05/2018 CMP, serum or plasm a creatinine 0.66 mg/dL 0.57-1 .00 Not Available [facility] ([facility]) [address] [place], [address], 07/05/2018 09:23:04 07/04/19 19 07/05/2018 CMP, serum or plasm a eGFR if nonafricn AM 123 mL/mi n/1.7 3 >59 Not Available [facility] ([facility]) [address] [place], [address], 07/05/2018 09:23:04 07/04/19 19 07/05/2018 CMP, serum or plasm a eGFR if africn AM 142 mL/mi n/1.7 3 >59 Not Available [facility] ([facility]) [address] [place], [address], 07/05/2018 09:23:04 07/04/19 19 07/05/2018 CMP, serum or plasm a BUN/creatini ne ratio 14 9-23 Not Available [facility] ([facility]) [address] [place], [address], 07/05/2018 09:23:04 07/04/19 19 07/05/2018 CMP, serum or plasm a sodium 139 mmol/ L 134-14 4 Not Available [facility] ([facility]) [address] [place], [address], 07/05/2018 09:23:04 07/04/1907/05/2018 CMP, serum or plasm a potassium 4.4 mmol/ L 3.5-5. 2 Not Available [facility] ([facility]) [address] [place], [address], 07/05/2018 09:23:04 07/04/1907/05/2018 CMP, serum or plasm a chloride 102 mmol/ L 96-106 Not Available [facility] ([facility]) [address] [place], [address], 07/05/2018 09:23:04 07/04/1907/05/2018 CMP, serum or plasm a carbon dioxide, total 23 mmol/ L 20-29 Not Available [facility] ([facility]) [address] [facility] [place], [address], 07/05/2018 09:23:04 07/04/1907/05/2018 CMP, serum or plasm a calcium 9.7 mg/dL 8.7-10 .2 Not Available [facility] ([facility]) [address] [facility], [address], 07/05/2018 09:23:04 07/04/19 19 07/05/2018 CMP, serum or plasm a protein, total 8.1 g/dL 6.0-8. 5 Not Available [facility] ([facility]) [address] [place], [address], 07/05/2018 09:23:04 07/04/1907/05/2018 CMP, serum or plasm a albumin 4.6 g/dL 3.5-5. 5 Not Available [facility] ([facility]) [address] [place], [address], 07/05/2018 09:23:04 07/04/1907/05/2018 CMP, serum or plasm a globulin, total 3.5 g/dL 1.5-4. 5 Not Available [facility] ([facility]) [address] [facility] [place], [address], 07/05/2018 09:23:04 07/04/1907/05/2018 CMP, serum or plasm a A/G ratio 1.3 1.2-2. 2 Not Available [facility] ([facility]) [address] [facility] [place], [address], 07/05/2018 09:23:04 07/04/1907/05/2018 CMP, serum or plasm a bilirubin, total 0.3 mg/dL 0.0-1. 2 Not Available [facility] ([facility]) [address] [facility] [place], [address], 07/05/2018 09:23:04 07/04/1907/05/2018 CMP, serum or plasm a alkaline phosphatase 68 IU/L 39-117 Not Available [facility]) [address] [facility] [place], [address], 07/05/2018 09:23:04 07/04/1907/05/2018 CMP, serum or plasm a AST (SGOT) 20 IU/L 0-40 Not Available [facility] ([facility]) [address] [facility] [place], [address], 07/05/2018 09:23:04 07/04/1907/05/2018 CMP, serum or plasm a ALT (SGPT) 15 IU/L 0-32 Not Available [facility] ([facility]) [address] [facility] [place], [address], 07/05/2018 09:23:04 07/04/1907/05/2018 cytom egalo virus (cmv) igg+i gm Ab, serum cytomegalovi yung (CMV) Ab, IgG <0.60 U/mL 0.00-0 .59 Negat hayde <0.60 Equiv ocal 0.60 - 0.69 Posit hayde >0.69 Not Available [facility] ([facility]) [address] [facility], [place], [address], 07/05/2018 09:23:04 07/04/19 19 07/05/2018 cytom egalo virus (cmv) igg+i gm Ab, serum cytomegalovi yung (CMV) Ab, IgM <30.0 AU/mL 0.0-29 .9 Negat hayde <30.0 Equiv ocal 30.0 - 34.9 Posit hayde >34.9 A posit hayde resul t is gener ally indic ative of acute infec tion, react ivati on or persi stent IgM produ ction . Not Available [facility] ([facility]) [address] [facility], [place], [address], 07/05/2018 09:23:04 07/04/1907/05/2018 RPR (rapi d plasm a reagi n), serum RPR Non Reacti ve non reacti ve Not Available [facility] ([facility]) [address] [facility], [place], [address], 07/05/2018 09:23:05 07/04/1907/05/2018 heter ophil e Ab, quali tativ e latex agglu tinat ion, serum mono qual w/rflx qn Negati ve negati ve The sensi tivit y of Heter ophil e antib srinivasan testi ng is 80-90 %. Epste in [place] IgM testi ng offer s highe r sensi tivit y. Not Available [facility] ([facility]) [address] [facility], [place], [address], 07/05/2018 09:23:06 08/30/1908/30/2018 CBC w/ auto diff WBC 7.4 x10e3 /uL 3.4-10 .8 Not Available [facility] ([facility]) [address] [place], [address], 08/30/2018 07:11:59 08/30/19 19 08/30/2018 CBC w/ auto diff RBC 4.51 x10e6 /uL 3.77-5 .28 Not Available [facility] ([facility]) [address] [place], [address], 08/30/2018 07:11:59 08/30/19 19 08/30/2018 CBC w/ auto diff hemoglobin 11.0 g/dL 11.1-1 5.9 below low normal Not Available [facility] ([facility]) [address] [place], [address], 08/30/2018 07:11:59 08/30/1908/30/2018 CBC w/ auto diff hematocrit 34.2 % 34.0-4 6.6 Not Available [facility] ([facility]) [address] [place], [address], 08/30/2018 07:11:59 08/30/19 19 08/30/2018 CBC w/ auto diff MCV 76 fL 79-97 below low normal Not Available [facility] ([facility]) [address] [place], [address], 08/30/2018 07:11:59 08/30/19 19 08/30/2018 CBC w/ auto diff MCH 24.4 pg 26.6-3 3.0 below low normal Not Available [facility] ([facility]) [address] [place], [address], 08/30/2018 07:11:59 08/30/1908/30/2018 CBC w/ auto diff MCHC 32.2 g/dL 31.5-3 5.7 Not Available [facility] ([facility]) [address] [place], [address], 08/30/2018 07:11:59 08/30/19 19 08/30/2018 CBC w/ auto diff RDW 15.6 % 12.3-1 5.4 above high normal Not Available [facility] ([facility]) [address] [facility], [place], [address], 08/30/2018 07:11:59 08/30/19 19 08/30/2018 CBC w/ auto diff platelets 389 x10e3 /uL 150-37 9 above high normal Not Available [facility] ([facility]) [address] [facility], [place], [address], 08/30/2018 07:11:59 08/30/19 19 08/30/2018 CBC w/ auto diff neutrophils 59 % not estab. Not Available [facility] ([facility]) [address] [facility], [place], [address], 08/30/2018 07:11:59 08/30/19 19 08/30/2018 CBC w/ auto diff lymphs 31 % not estab. Not Available [facility] ([facility]) [address] [facility], [place], [address], 08/30/2018 07:11:59 08/30/19 19 08/30/2018 CBC w/ auto diff monocytes 8 % not estab. Not Available [facility] ([facility]) [address] [facility], [place], [address], 08/30/2018 07:11:59 08/30/19 19 08/30/2018 CBC w/ auto diff eos 1 % not estab. Not Available [facility] ([facility]) [address] [facility], [place], [address], 08/30/2018 07:11:59 08/30/1908/30/2018 CBC w/ auto diff basos 1 % not estab. Not Available [facility] ([facility]) [address] [facility], [place], [address], 08/30/2018 07:11:59 08/30/1908/30/2018 CBC w/ auto diff immature cells LEVI MAKER Not Available [facility] ([facility]) [address] [facility], [place], [address], 08/30/2018 07:11:59 08/30/19 19 08/30/2018 CBC w/ auto diff neutrophils (absolute) 4.4 x10e3 /uL 1.4-7. 0 Not Available [facility] ([facility]) [address] [place], [address], 08/30/2018 07:11:59 08/30/1908/30/2018 CBC w/ auto diff lymphs (absolute) 2.3 x10e3 /uL 0.7-3. 1 Not Available [facility] ([facility]) [address] [place], [address], 08/30/2018 07:11:59 08/30/1908/30/2018 CBC w/ auto diff monocytes(ab solute) 0.6 x10e3 /uL 0.1-0. 9 Not Available [facility] ([facility]) [address] [place], [address], 08/30/2018 07:11:59 08/30/1908/30/2018 CBC w/ auto diff eos (absolute) 0.1 x10e3 /uL 0.0-0. 4 Not Available [facility] ([facility]) [address] [place], [address], 08/30/2018 07:11:59 08/30/1908/30/2018 CBC w/ auto diff baso (absolute) 0.0 x10e3 /uL 0.0-0. 2 Not Available [facility] ([facility]) [address] [place], [address], 08/30/2018 07:11:59 08/30/1908/30/2018 CBC w/ auto diff immature granulocytes 0 % not estab. Not Available [facility] ([facility]) [address] [place], [address], 08/30/2018 07:11:59 08/30/1908/30/2018 CBC w/ auto diff immature grans (abs) 0.0 x10e3 /uL 0.0-0. 1 Not Available [facility] ([facility]) [address] [facility], [place], [address], 08/30/2018 07:11:59 08/30/1908/30/2018 CBC w/ auto diff NRBC LEVI MAKER Not Available [facility] ([facility]) [address] [facility], [place], [address], 08/30/2018 07:11:59 08/30/1908/30/2018 CBC w/ auto diff hematology comments: LEVI MAKER Not Available [facility] ([facility]) [address] [facility], [place], [address], 08/30/2018 07:11:59 08/30/1908/30/2018 hsv (1+2) igg Ab, [...] willy to HSV-1 . Not Available [facility] ([facility]) [address] [facility], [place], [address], 08/30/2018 07:12:00 08/30/1908/30/2018 hsv (1+2) igg Ab, [...] to HSV-2 . Not Available [facility] ([facility]) [address] [facility], [place], [address], 08/30/2018 07:12:00 08/30/19 19 08/30/2018 RPR (rapi d plasm a reagi n), serum RPR Non Reacti ve non reacti ve Not Available [facility] ([facility]) [address] [facility], [place], [address], 08/30/2018 07:12:00 08/30/1908/30/2018 HIV 1+2 AB + HIV 1 p24 Ag, quali tativ e immun oassa y, serum HIV screen 4TH generation wrfx Non Reacti ve non reacti ve Not Available [facility] ([facility]) [address] [facility], [place], [address], 08/30/2018 07:12:01 08/30/19 19 08/30/2018 hepat itis C Ab, signa l-to- cutof f, serum or plasm a HCV Ab <0.1 s/co_ ratio 0.0-0. 9 Not Available [facility] ([facility]) [address] [facility], [place], [address], 08/30/2018 07:12:01 08/30/1908/30/2018 hepat itis C Ab, signa l-to- cutof f, serum or plasm a comment: Commen t Non react hayde HCV antib srinivasan scree n is consi stent with no HCV infec tion, unles s recen t infec tion is suspe cted or other evide nce exist s to indic ate HCV infec tion. Not Available [facility] ([facility]) [address] [facility], [place], [address], 08/30/2018 07:12:01 08/30/1908/30/2018 HBsAg (hepa titis B surfa ce Ag), EIA, serum HBsAg screen Negati ve negati ve Not Available [facility] ([facility]) [address] [facility], [place], [address], 08/30/2018 07:12:02 02/14/2002/14/2019 CBC w/ auto diff WBC 7.5 x10e3 /uL 3.4-10 .8 Not Available [facility] ([facility]) [address] [facility], [place], [address], 02/14/2019 06:40:13 02/14/2002/14/2019 CBC w/ auto diff RBC 4.34 x10e6 /uL 3.77-5 .28 Not Available [facility] ([facility]) [address] [facility], [place], [address], 02/14/2019 06:40:13 02/14/2002/14/2019 CBC w/ auto diff hemoglobin 11.1 g/dL 11.1-1 5.9 Not Available [facility] ([facility]) [address] [facility], [place], [address], 02/14/2019 06:40:13 02/14/2002/14/2019 CBC w/ auto diff hematocrit 34.2 % 34.0-4 6.6 Not Available [facility] ([facility]) [address] [facility], [place], [address], 02/14/2019 06:40:13 02/14/2002/14/2019 CBC w/ auto diff MCV 79 fL 79-97 Not Available [facility] ([facility]) [address] [facility], [place], [address], 02/14/2019 06:40:13 02/14/2002/14/2019 CBC w/ auto diff MCH 25.6 pg 26.6-3 3.0 below low normal Not Available [facility] ([facility]) [address] [facility], [place], [address], 02/14/2019 06:40:13 02/14/2002/14/2019 CBC w/ auto diff MCHC 32.5 g/dL 31.5-3 5.7 Not Available [facility] ([facility]) [address] [facility], [place], [address], 02/14/2019 06:40:13 02/14/2002/14/2019 CBC w/ auto diff RDW 15.0 % 12.3-1 5.4 Not Available [facility] ([facility]) [address] [facility], [place], [address], 02/14/2019 06:40:13 02/14/2002/14/2019 CBC w/ auto diff platelets 372 x10e3 /uL 150-45 0 Not Available [facility] ([facility]) [address] [facility], [place], [address], 02/14/2019 06:40:13 02/14/2002/14/2019 CBC w/ auto diff neutrophils 61 % not estab. Not Available [facility] ([facility]) [address] [facility], [place], [address], 02/14/2019 06:40:13 02/14/2002/14/2019 CBC w/ auto diff lymphs 28 % not estab. Not Available [facility] ([facility]) [address] [facility], [place], [address], 02/14/2019 06:40:13 02/14/2002/14/2019 CBC w/ auto diff monocytes 8 % not estab. Not Available [facility] ([facility]) [address] [facility], [place], [address], 02/14/2019 06:40:13 02/14/2002/14/2019 CBC w/ auto diff eos 2 % not estab. Not Available [facility] ([facility]) [address] [facility], [place], [address], 02/14/2019 06:40:13 02/14/2002/14/2019 CBC w/ auto diff basos 1 % not estab. Not Available [facility] ([facility]) [address] [facility], [place], [address], 02/14/2019 06:40:13 02/14/2002/14/2019 CBC w/ auto diff immature cells LEVI MAKER Not Available [facility] ([facility]) [address] [facility], [place], [address], 02/14/2019 06:40:13 02/14/2002/14/2019 CBC w/ auto diff neutrophils (absolute) 4.7 x10e3 /uL 1.4-7. 0 Not Available [facility] ([facility]) [address] [facility], [place], [address], 02/14/2019 06:40:13 02/14/2002/14/2019 CBC w/ auto diff lymphs (absolute) 2.1 x10e3 /uL 0.7-3. 1 Not Available [facility] ([facility]) [address] [facility], [place], [address], 02/14/2019 06:40:13 02/14/2002/14/2019 CBC w/ auto diff monocytes(ab solute) 0.6 x10e3 /uL 0.1-0. 9 Not Available [facility] ([facility]) [address] [facility], [place], [address], 02/14/2019 06:40:13 02/14/2002/14/2019 CBC w/ auto diff eos (absolute) 0.1 x10e3 /uL 0.0-0. 4 Not Available [facility] ([facility]) [address] [place], [address], 02/14/2019 06:40:13 02/14/2002/14/2019 CBC w/ auto diff baso (absolute) 0.0 x10e3 /uL 0.0-0. 2 Not Available [facility] ([facility]) [address] [facility], [place], [address], 02/14/2019 06:40:13 02/14/2002/14/2019 CBC w/ auto diff immature granulocytes 0 % not estab. Not Available [facility] ([facility] [facility]) [address] [facility], [place], [address], 02/14/2019 06:40:13 02/14/2002/14/2019 CBC w/ auto diff immature grans (abs) 0.0 x10e3 /uL 0.0-0. 1 Not Available [facility] ([facility]) [address] [place] [address], [place], [address], 02/14/2019 06:40:13 02/14/2002/14/2019 CBC w/ auto diff NRBC LEVI MAKER Not Available [facility] ([facility]) [address] [place] [address], [place], [address], 02/14/2019 06:40:13 02/14/2002/14/2019 CBC w/ auto diff hematology comments: LEVI MAKER Not Available [facility] ([facility]) [address] [facility], [place], [address], 02/14/2019 06:40:13 02/14/2002/14/2019 iron + total iron- leta ng capac ity (TIBC ), serum iron bind.cap.(TI BC) 353 ug/dL 250-45 0 Not Available [facility] ([facility]) [address] [place], [address], 02/14/2019 06:40:14 02/14/2002/14/2019 iron + total iron- leta ng capac ity (TIBC ), serum UIBC 336 ug/dL 131-42 5 Not Available [facility] ([facility]) [address] [place] [address], [address], 02/14/2019 06:40:14 02/14/2002/14/2019 iron + total iron- leta ng capac ity (TIBC ), serum iron 17 ug/dL 27-159 below low normal Not Available [facility] ([facility]) [address] [facility], [place], [address], 02/14/2019 06:40:14 02/14/20 19 02/14/2019 iron + total iron- leta ng capac ity (TIBC ), serum iron saturation 5 % 15-55 alert low Not Available [facility] ([facility]) [address] [facility], [place], [address], 02/14/2019 06:40:14 02/14/2002/14/2019 cristina tin, serum or plasm a ferritin, serum 7 NG/mL 15-150 below low normal Not Available [facility] ([facility]) [address] [facility], [place], [address], 02/14/2019 06:40:14 07/04/19 19 07/04/2018 XR, chest No observ ation record ed. [email or web address] [address] [place], [address], 07/06/2018 16:35:07 08/16/19 19 08/09/2018 CT, neck, soft tissu e, w/ contr ast No observ ation record ed. [address] [place], [address], 11/27/2018 00:09:00 08/17/19 19 08/16/2018 CT, sinus es, w/o contr ast No observ ation record ed. [address] [place], [address], 08/16/2018 13:21:28 Result Notes None recorded. Problems Name Problem SNOMED Code Status Onset Date Resolution Date Notes Provider Name and Address Organization Details Recorded Time Disorder of thyroid gland 57741513 Completed 201811/26/2018 DIONNE New 9 00:12:22 Cervical lymphade nopathy 770404222 Active 2018 DIONNE New 9 11:15:19 Upper respirat ory infectio n 23916654 Completed 201811/13/2018 [place] [facility] 9 11:05:53 Mean corpuscu lar volume below referenc e range 833609270 Active 2018 [place] [facility] 9 12:49:50 Acute sinusiti s 49198967 Completed 201811/13/2018 [place] [facility] 9 11:05:49 History of Helicoba cter pylori infectio n 18333086619 187657 Active 2018 GI [place] [facility] 9 00:05:39 Chronic gastriti s 1320163 Active 2018 EGD - H pylori, GI [place] [facility] 9 00:06:03 Hemorrho ids 73143873 Active 2018 Gen sx planning for hemorrho idectomy [place] [facility] 9 00:06:27 Dizzines s 645868172 Active 2018 [place] [facility] 9 11:29:10 Infectiv e vaginiti s 208797158 Active Radha Garcia [place] [facility] 6 11:25:47 Infectiv e vaginiti s 898672997 Completed Shahrzad Barrera [place] [facility] 5 09:18:25 Maternal care for diminish ed movement s Active Radha [place] [facility] 6 11:25:47 Maternal care for diminish ed movement s Completed Shahrzad Barrera [place] [facility] 5 09:18:25 Breastfe eding painful 784618001 Active Radha Lay[place] [facility] 6 11:25:47 Pain in pelvis 16332150 Active Radha [place] [facility] 6 11:25:47 Vaginal discharg e 898741509 Active white Radha moreno, [facility] 6 11:25:47 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 Procedures Surgical History Date Name Laterality Status Provider Name and Address Organization Details Recorded Time 05/08/19 16 Cholecystectomy completed Radha Garcia [facility] 11/03/2015 11:25:48 01/15/20 15 IUD Insertion completed Ricardo Box [facility] 01/14/2015 12:23:57 04/18/20 12 Date of Last Pap Smear completed Mily Parsons MA [facility] 05/06/2014 16:14:24 05/08/19 10 Appendectomy completed Maida Do MA [facility] 06/17/2014 11:12:04 Imaging Results None recorded. [...] Updated DateTime 9 162.56 cm 36.7 kg/m2 53075.0 4 g 97.9 [degF] 16 /min 76 /min 124/86 mm[Hg] Jenelle Groves [place] - [facility] 9 12:24:37 Date Recorded Body height Body mass index (BMI) Body weight Systolic And Diastolic Provider Name and Address Organization Details Last Updated DateTime 08/29/2018 162.56 cm 36.2 kg/m2 62781.99 g 130/94 mm[Hg] Shahrzad Barrera MA [facility] 08/29/2018 11:38:34 Date Recorded Body height Body mass index (BMI) Body weight Body temperature Heart rate Respiratory rate Systolic And Diastolic Provider Name and Address Organization Details Last Updated DateTime 9 162.56 cm 36 kg/m2 40688.6 1 g 98.3 [degF] 84 /min 20 /min 132/84 mm[Hg] Jenelle Groves MA [facility] 9 12:15:41 Date Recorded Body height Body mass index (BMI) Body weight Body temperature Heart rate Respiratory rate Systolic And Diastolic Provider Name and Address Organization Details Last Updated DateTime 9 162.56 cm 35.5 kg/m2 69784.9 7 g 98.3 [degF] 70 /min 18 /min 130/80 mm[Hg] Jenelle Groves MA [facility] 9 10:43:45 Date Recorded Body height Body mass index (BMI) Body weight Heart rate Respiratory rate Body temperature Systolic And Diastolic Provider Name and Address Organization Details Last Updated DateTime 9 162.56 cm 36.3 kg/m2 21494.7 9 g 86 /min 20 /min 98.3 [degF] 130/82 mm[Hg] Jenelle Groves MA [facility] 9 11:02:19 Social History Question Answer Notes LastModified by Organizat ion Details LastModified Time Tobacco Smoking Status Never Smoker Maida Do MA [facility] 06/17/2014 11:12:04 Do You Have An [...] Information not available 06/17/2014 Marital Status [place] [address] Informatio n not available 06/17/2014 What Was [...] or Bladder Problems N Thyroid Problems N Depression N Lung Disease N GI Problems N Acne N Breast [...] SNOMED-CT Code Diagnosis ICD10 Code Diagnosis Note [id number] MD L[place] Weaver ([facility]) [address] [facility] [place] [address] 05/06/2014 15:15:04 05/07/2014 13:43:54 65019420 test positive [id number] Joan Blas [facility] Lalo Husain ([facility]) [address] [facility] [place] [address] 05/22/2014 14:23:39 05/22/2014 15:25:47 [id number] MD Lalo Roldan ([facility]) [address] [facility] [place] [address] 06/17/2014 10:44:30 06/17/2014 15:08:09 [id number] MD Lalo Roldan ([facility]) [address] [facility] [place] [address] 07/15/2014 10:26:03 07/16/2014 09:23:26 Normal 75866074 [id number] MD Lalo Weaver ([facility] 122) [address] [facility] [place] [address] 08/12/2014 09:35:12 08/12/2014 12:42:08 Normal [id number] MD Lalo Weaver ([facility]) [address] [facility] [place] [address] 08/26/2014 11:56:11 08/27/2014 16:10:13 [id number] MD Lalo Weaver ([facility]) [address] [facility] [place] [address] 09/09/2014 14:42:01 09/09/2014 15:30:17 [id number] MD Lalo Weaver ([facility]) [address] [facility] [place] [address] 09/23/2014 09:49:09 09/23/2014 15:23:49 [id number] MD Lalo Weaver ([facility]) [address] [facility] [place] [address] 10/07/2014 10:59:01 10/07/2014 11:38:07 [id number] MD Lalo Weaver ([facility]) [address] [facility] [place] [address] 10/21/2014 09:36:51 10/23/2014 12:51:20 [id number] MD Lalo Weaver ([facility]) [address] [place] [address] 11/04/2014 09:43:59 11/04/2014 14:45:01 [id number] Normal [id number] MD Lalo Weaver ([facility]) [address] [facility] [place] [address] 11/11/2014 11:18:25 11/11/2014 14:54:02 [id number] Maternal c are for diminished movements [id number] MD Lalo Weaver ([facility]) [address] [facility] [place] [address] 11/18/2014 10:46:59 11/18/2014 11:58:55 [id number] MD Lalo Weaver ([facility]) [address] [place] [address] 11/24/2014 08:49:50 11/24/2014 10:29:51 [id number] MD Lalo Weaver ([facility]) [address] [place] [address] 12/24/2014 09:05:47 12/24/2014 12:04:57 care [id number] MD Lalo Weaver ([facility]) [address] [facility] [place] [address] 01/14/2015 11:47:27 01/14/2015 12:33:02 care [id number] Uses contraception 67047774 [id number] MD Lalo Weaver Womens ([facility] 122) [address] [facility] [place] [address] 01/19/2015 15:46:51 01/20/2015 09:49:17 IUD check 958967623 [id number] MD Lalo Weaver Womens ([facility] 122) [address] [facility] [place] [address] 02/11/2015 10:38:39 02/18/2015 18:08:10 IUD check 681032538 Z30.431 [id number] Joan Blas [facility] Lalo Womenjavi ([facility] 122) [address] [facility] [place] [address] 11/03/2015 11:00:12 11/03/2015 14:33:42 detection examination 08774213 Z32.00 IUD check 702219513 Z30. 736 [id number] MD Lalo HURTADO 14 IM [address] [facility] [place] [address] 07/04/2018 09:50:09 07/04/2018 16:26:43 Cervical lymphadenopathy 867722954 R59.0 Had a cough since 02/2018, on and off No traveling. No cat. Weight stable overall. Fatigue - despite sleeping. No dental issues. No focal weakness. Sweaty at times. Irregular periods. Neuro intact. ENT will do US +/- biopsy soon. Labs. Check for mono, syphilis, CMV, CXR. RTC 3mo Disorder o f thyroid gland 98707063 E07.9 Had a cough since 02/2018, on and off. Check TSH [id number] MD Lalo HURTADO 14 IM [address] [facility] [place] [address] 07/27/2018 12:09:33 07/31/2018 15:49:44 Cervical lymphadenopathy 134842853 R59.0 Had a cough since 02/2018, on [...] second ENT opinion. Upper resp iratory infection 31514508 J06.9 Strept and Flu negative. Exam unremarkab le. Conservati ve management . [id number] MD Lalo Chambers 14 OB [address] [facility] [place] [address] 08/29/2018 11:23:12 08/30/2018 09:21:21 Gynecologic examination 03812166 Z01.419 CBE and pelvic exam performedP t is on her menstrual cycle, will RTC for pap smear Venereal d isease screening 390246423 Z11.3 Anemia 593688289 D64.9 Hemorrhoids 86609686 K64 .9 [id number] MD Lalo HURTADO 14 IM [address] [facility] [place] [address] 09/05/2018 12:08:49 09/06/2018 10:44:23 Acute sinusitis 50386416 J01.90 4 days, worsening coughs, chest congestion . Exam sinusitis. Already on antihistam althea, PPI, Augmentin with ENT. Try home Flonase, add mucinex. Mean corpu scular volume below reference range 902969638 R71.8 MCV still low with Plate Washer. Heavy periods on paraguard with obstetrics gyn , still heavy. FeS - taking two tab now. Inc to three - RTC 2mo for ferritin check. [id number] MD Lalo HURTADO 14 IM [address] [facility] [place] [address] 11/13/2018 10:37:12 11/27/2018 11:36:00 Cervical lymphadenopathy 878154446 R59.0 06/2018: Had a cough since 02/2018, [...] done biopsy - result benign. Chronic gastritis 401376 9 K29.50 Followed by GI.Chronic gastritic, H pylori infection - pt was treated. Per pt, her esophagus was also dilated. Hemorrhoids 44636665 K64 .9 Followed by Gen sx - candidate for hemorrhoid ectomy. History of Helicobacter pylori infection 3034597310 [id number] Z86.19 Followed by GI - treated [id number] MD Lalo HURTADO 14 IM [address] [facility] [address] [place] [address] 02/13/2019 10:52:03 02/14/2019 08:35:16 Dizziness 974552037 R42 Thyroid was low with Plate Washer recently - pt will be rechecked by [...] ID Guarantor Name 09/05/2018 1 [place] [employer] Yessica Young [id number] Yessica Mo 01/08/2019 1 [facility] (MEDICAID HMO) [facility] Yessica Young [id number] Yessica Mo 03/12/2019 2 [place] Yessica Young [id number] Yessica Mo 11/30/2020 1 [place] [id number] Luis Antonio Mo [id number] Yessica Mo 01/19/2015 1 [place] Yessica Young [id number] Yessica Mo 11/03/2015 1 [facility] (MEDICAID HMO) [id number] Yessica Young [id number] Yessica Mo 06/19/2018 1 *SELF PAY* Me [...] pt wants a second opinion Lucero [place], [place] [facility] 07/31/2018 15:32:25 08/29/2018 text/html Annual GYNReport ed [...] PMDD Ricardo Ramirez MD Attn: Accounting,[address] [place], [address], [facility] 08/29/2018 16:15:04 09/05/2018 text/html 23yo female is [...] a/w with meals Denies room spinning. Lucero VaacDIONNE meneses SIJazmyn 02/13/2019 11:29:52 OBGyn Episode Ob Episode Information Episode Created Date Number of Fetuses Patient Bloodtype Patient rh Status Prepregnancy Weight lbs Domestic Partner Domestic Partner Phone Father Name Entertainment Musician Status 05/06/20 14 1 A Positive Luis Antonio Mo CLOSED Fetus Data First Name Last Name Admitted to NICU Weight (g) Sex Living Outcome Pediatric Complications Fetus ID Race Codes Race Delivery Type CHASITY ESCAMILLA false 4309.12 4 F Full Term 5386 2106-3 White Vaginal Problems Problem Notes Problem Name Start Date End Date Resolution Snomed Code Not e Infective vaginitis 149565798 Maternal care for diminished movements 606574435 Darren Calculation Initial Darren Date Initial Exam [...] Type Weight in lbs Pre/Post Dialysis Refused 203.058018224079 BP Diastolic BP Location Tested BP Systolic BP Type 64 L arm 118 sitting Fetus Heart Rate Present Fetus Movement Comments Flowsheet Date 05/22/2014 Mckinney Score Blood Edema Fundus Height Fundus Units Glucose Ketones Leukocytes Nitrite Labor Signs Protein Cervic Dilation Cervic Effacement Cervic Station neg none none negative neg Type Weight in lbs Pre/Post Dialysis Refused 198.793288696903 BP Diastolic BP Location Tested BP Systolic [...] Type Weight in lbs Pre/Post Dialysis Refused 164.19942147305 BP Diastolic BP Location Tested BP Systolic [...] Type Weight in lbs Pre/Post Dialysis Refused 201.028109687482 BP Diastolic BP Location Tested BP Systolic [...] Type Weight in lbs Pre/Post Dialysis Refused 203.68208195143 BP Diastolic BP Location Tested BP Systolic BP Type 68 128 Fetus Heart Rate Present A 142 Present Fetus Movement A Yes Comments 28 weeks today Flowsheet Date 08/26/2014 Mckinney Score Blood Edema Fundus Height Fundus Units Glucose Ketones Leukocytes Nitrite Labor Signs Protein Cervic Dilation Cervic Effacement Cervic Station 26 cm none Type Weight in lbs Pre/Post Dialysis Refused 203.51702033674 BP Diastolic BP Location Tested BP Systolic BP Type 74 L arm 122 sitting Fetus Heart Rate Present A 146 Present Fetus Movement A Yes Comments Flowsheet Date 09/09/2014 Mckinney Score Blood Edema Fundus Height Fundus Units Glucose Ketones Leukocytes Nitrite Labor Signs Protein Cervic Dilation Cervic Effacement Cervic Station 30 cm none Type Weight in lbs Pre/Post Dialysis Refused 206.399344102013 BP Diastolic BP Location Tested BP Systolic BP Type 60 L arm 120 sitting Fetus Heart Rate Present A 154 Present Fetus Movement A Yes Comments Flowsheet Date 09/23/2014 Mckinney Score Blood Edema Fundus Height Fundus Units Glucose Ketones Leukocytes Nitrite Labor Signs Protein Cervic Dilation Cervic Effacement Cervic Station 32 cm none Type Weight in lbs Pre/Post Dialysis Refused 205.952219563908 BP Diastolic BP Location Tested BP Systolic BP Type 68 110 Fetus Heart Rate Present A 155 Fetus Movement A Yes Comments Flowsheet Date 10/07/2014 Mckinney Score Blood Edema Fundus Height Fundus Units Glucose Ketones Leukocytes Nitrite Labor Signs Protein Cervic Dilation Cervic Effacement Cervic Station none Type Weight in lbs Pre/Post Dialysis Refused 208.485444079821 BP Diastolic BP Location Tested BP Systolic BP Type 78 110 sitting Fetus Heart Rate Present A 154 Fetus Movement A Yes Comments growth scan ordered Flowsheet Date 10/21/2014 Mckinney Score Blood Edema Fundus Height Fundus Units Glucose Ketones Leukocytes Nitrite Labor Signs Protein Cervic Dilation Cervic Effacement Cervic Station 37 cm none Type Weight in lbs Pre/Post Dialysis Refused 213.384304456276 BP Diastolic BP Location Tested BP Systolic BP Type 72 118 sitting Fetus Heart Rate Present A 140 Present Fetus Movement A Yes Comments gbs today. Flowsheet Date 11/04/2014 Mckinney Score Blood Edema Fundus Height Fundus Units Glucose Ketones Leukocytes Nitrite Labor Signs Protein Cervic Dilation Cervic Effacement Cervic Station 37 cm none Type Weight in lbs Pre/Post Dialysis Refused 216.572897039047 BP Diastolic BP Location Tested BP Systolic [...] Type Weight in lbs Pre/Post Dialysis Refused 217.491086416361 BP Diastolic BP Location Tested BP Systolic [...] Type Weight in lbs Pre/Post Dialysis Refused 221.630030944004 BP Diastolic BP Location Tested BP Systolic [...] Type Weight in lbs Pre/Post Dialysis Refused 223.096496202224 BP Diastolic BP Location Tested BP Systolic [...] At Estimated Date of Delivery false Thalassemia (Greek, Croatian, Mediterranean, Or Background): MCV < 80 false Neural Tube Defect (Meningom yelocele, Spina Bifida, Or Anencephaly) false Congenital Heart Defect false Down Syndrome false Curt-Sachs (eg, Gnosticism, Cajun , North Korean-Noble) false Yung Disease false Sickle Cell Disease [...] Domestic Partner Domestic Partner Phone Father Name Entertainment Musician Status 06/17/19 15 1 CLOSED Fetus Data First Name Last Name Admitted to NICU Weight (g) Sex Living Outcome Pediatric Complications Fetus ID Race Codes Race Delivery Type 3515.33 8 F Full Term [id number] Vaginal Darren Calculation Initial Darren Date Initial [...]
--- NOTE | 2024-11-14 18:06 | LDADM ---
This patient, Yessica Mo, was admitted to Labor/Delivery/Recovery 102 on 11/14/24 at 14:43. Plans for labor, pain management and were discussed with patient. Patient/family oriented to hospital policies and general routines including ID bracelet, bed and alarms, visiting hours, pain management, procedures, bathroom and other care routines, personal items, smoking policy, room service/diet and guest tray routines, security routines, and visiting hours. Patient/Family are encouraged to report perceived risks to care and to ask questions if they do not understand what they are told or what they should do. See OBIX for further documentation.
--- NOTE | 2024-11-14 18:29 | PC.NURSE ---
1623 called Cindi Bryant to report pt. SVE. Pt did not make cervical change. Orders received from CNM to discharge pt. home.
--- NOTE | 2024-11-17 10:37 | PM.OBTRLD ---
OB - Triage/Final Diagnosis Visit Information Date of evaluation: 11/14/24 Reason for evaluation: threatened labor Comments/Additional reasons for admission: I have assessed the risk for this patient, Yessica Mo, and determined that she would benefit from observation care.
== END 2024-11-14 16:38 | disposition home or self-care (01) ==
PROVIDERS: Admitting Provider Obstetrics & Gynecology; Visit Provider Obstetrics & Gynecology
DX: O47.9 False labor, unspecified (principal); Z3A.35 35 weeks gestation of pregnancy
CPT/HCPCS: G0378; G0379

== ENCOUNTER 2024-11-16 08:17 | Observation (INO) | payer OTHER, SELFPAY ==
[2024-11-16] VITALS (11 sets, daily range): BP systolic 117–147; BP diastolic 63–97; PULSE 91–120; BMI 39.6
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
--- OUTSIDE RECORDS SUMMARY | 2024-11-16 09:16 | XMS_ITS | Clinical Summary ---
Author Organization [facility] Address [address] [facility], [facility] [address] [place] [address] Phone Care Team Providers Care Nursery Helper Name Role Phone Manda Singh MD Unavailable [phone] Malik Cates MD Unavailable Ulices Marino MD Unavailable Yon Gutierrez MD Primary Care Provider Georgina Fontenot CHASER APPRENTICE, FOREST WORKER Unavailable [phone] Allergies Active Allergy Reactions Criticality Noted Date [...] Transcribe Orders [facility] [address] [place] [address] Provider, Not On File Low back pain, [...] 97.5 kg (215 lb) 04/19/2023 8:07 AM ACID PUMPER Height 165.1 cm (5' 5) 04/19/2023 8:07 AM ACID PUMPER Body Mass Index 35.78 04/19/2023 8:07 AM ACID PUMPER Plan of Treatment Health Maintenance Due Date [...] this topic Medical Devices Implanted Type Area Warp Placer Device Identifier Shelf Expiration Date Model / Serial / Lot Tube Ventilation 5mm Carey Triune - [id number] Implanted:Qty: 1 on 11/05/2018 by Jordon Deng MD at [facility] IMPLANT Left: Ear [employer] 04/06/2020 510-122 / [id number] / [id number] Description:Ear tubes came f rom the same package Tube Ventilation 5mm Carey Triune - [id number] Implanted:Qty: 1 on 11/05/2018 by Jordon Deng MD at [facility] IMPLANT Right: Ear [employer] 04/06/2020 510-122 / [id number] / [id number] Description:Ear tubes came f rom the same package Insurance * Guarantor: [facility] Account Type Relation to Patient Date of Phone Billing Address Institutional Other [address] [place] [address] Care Teams Nursery Helper Relationship Specialty Start Date End Date Yon Gutierrez MD [address] [address] PCP - General Family Medicine 06/23/23 Manda Singh MD Obstetrics & Gynecology 02/11/20 Malik Cates MD [address] [address] Consulting Physician Endocrinology 12/13/21 Ulices Marino MD [address] [address] Consulting Physician Colon and Rectal Surgery 07/06/22 Georgina Fontenot, CHASER APPRENTICE, FOREST WORKER [address] [place] [address] Nurse Practitioner Advanced Practice Nurse 09/25/24
--- OUTSIDE RECORDS SUMMARY | 2024-11-16 09:16 | XMS_ITS | Encounter Summary ---
Author Organization [facility] Address [address] [place] [address] Phone Care Team Providers Care Tar Kettle Runner Name Role Phone Manda Singh MD Unavailable [phone] Robby Torres Primary Care Provider [phone] Scooter White DO Primary Care Provider Malik Cates MD Unavailable Ulices Marino MD Unavailable Yon Gutierrez MD Primary Care Provider Georgina Fontenot APRN, [facility] Unavailable [phone] Encounter Details Date Type Department Care Team (Late st Contact Info) Description 04/09/2020 Telephone [facility] [address] [address] Saud Dalton MD [address] [place] [address] Social History Tobacco Use Types Packs/Day [...] COVID-19? No / Unsure 03/20/2020 6:06 AM CASING SPLITTER documented as of this encounter Miscellaneous Notes * Telephone Encounter - Mahnaz Alaniz - 04/09/2020 2:50 PM CST Patient no showed her appointment, left voice message to call the office to reschedule. Sent out a no show letter. NG SPLITTER documented in this encounter Plan of Treatment Not on file documented as of this encounter Visit Diagnoses Not on filedocumented in this encounter Additional Health Concerns Assessment Noted Time PHQ-9 Depression Total Score: 0 02/11/20 20 12:57 PM CDT documented as of this encounter Care Teams Tar Kettle Runner Relationship Specialty Start Date End Date Robby Torres [address] [place] [address] PCP - General Family Medicine 02/11/20 03/16/21 Scooter White DO [address] [place] [address] [place] [address] PCP - General Internal Medicine 03/17/21 06/22/23 Yon Gutierrez MD [address] [place] [address] [address] PCP - General Family Medicine 06/23/23 Manda Singh MD Obstetrics & Gynecology 02/11/20 Malik Cates MD [address] [address] Consulting Physician Endocrinology 12/13/21 Ulices Marino MD #[address] [address] Consulting Physician Colon and Rectal Surgery 07/06/22 Georgina Fontenot APRN, WATER RESTORATION TECHNICIAN [address] [place] [address] Nurse Practitioner Advanced Practice Nurse 09/25/24 documented as of this encounter
--- OUTSIDE RECORDS SUMMARY | 2024-11-16 09:16 | XMS_ITS | Encounter Summary ---
Author Organization [facility] Address [address] [place] [address] Phone Care Team Providers Care Machine Trimmer Name Role Phone Manda Singh MD Unavailable [phone] Scooter White DO Primary Care Provider Malik Cates MD Unavailable Ulices Marino MD Unavailable Yon Gutierrez MD Primary Care Provider Georgina Fontenot APRN, MARKETING AND OUTREACH COORDINATOR Unavailable [phone] Encounter Details Date Type Department Care Team (Late st Contact Info) Description 07/26/2021 [facility] [address] [place] [address] Edita Garza, TRUNG, AVIATION TECHNICAL SYSTEMS SPECIALIST [address] [place] [address] Encounter for pre-employment examination Social [...] >=1.1 AI 07/26/2021 10:00 PM CDT [facility] Blood No Phlebotomy Charged / Unknown 07/26/2021 9:00 AM CDT 07/26/2021 2:15 PM CDT Narrative [facility] - 07/26/2021 10:00 PM CDT <= 0.8 Negative. No detectable VZV IgG antibody. 0.9 - 1.0 Equivocal >=1.1 Positive Antibody testing was performed by multiplex flow immunoassay on the BioPlex platform. Edita L Behrends PROFESSIONAL SHOPPER, AVIATION TECHNICAL SYSTEMS SPECIALIST IMMUNOLOGY ORDERABL ES Final Result Performing Organization Address [facility] de Phone Number [facility] [address] [place] [address], [place] * (ABNORMAL) RUBEOLA (MEASLES) IGG (07/26/2021 9:00 AM CDT) MEASLES AB IGG 0.7(L) >=1.1 AI 07/26/2021 10:00 PM CDT [facility] Blood No Phlebotomy Charged / Unknown 07/26/2021 9:00 AM CDT 07/26/2021 2:15 PM CDT Narrative [facility] - 07/26/2021 10:00 PM CDT <= 0.8 Negative. No detectable Measles IgG antibody. 0.9 - 1.0 Equivocal >=1.1 Positive Antibody testing was performed by multiplex flow immunoassay on the BioPlex platform. Edita L Behrends PROFESSIONAL SHOPPER, AVIATION TECHNICAL SYSTEMS SPECIALIST IMMUNOLOGY ORDERABL ES Final Result Performing Organization Address [facility] de Phone Number [facility] [address] [place] [address], [place] * RUBELLA IMMUNITY IGG (07/26/2021 9:00 AM CDT) RUBELLA IMMUNITY Immune Immune, Invalid 07/26/2021 10:00 PM CDT [facility] Blood No Phlebotomy Charged / Unknown 07/26/2021 9:00 AM CDT 07/26/2021 2:15 PM CDT Narrative [facility] - 07/26/2021 10:00 PM CDT Antibody testing was performed by multiplex flow immunoassay on the BioPlex platform. us Edita Garza PROFESSIONAL SHOPPER, AVIATION TECHNICAL SYSTEMS SPECIALIST CHEMISTRY ORDERABLE S Final Result Performing Organization Address [facility] Co de Phone Number [facility] [address] [place] [address], [place] * MUMPS IGG (07/26/2021 9:00 AM CDT) Mumps Ab IgG 1.2 >=1.1 AI 07/26/2021 10:00 PM CDT [facility] Blood No Phlebotomy Charged / Unknown 07/26/2021 9:00 AM CDT 07/26/2021 2:15 PM CDT Narrative [facility] - 07/26/2021 10:00 PM CDT <= 0.8 Negative. No detectable Mumps IgG antibody. 0.9 - 1.0 Equivocal >=1.1 Positive Antibody testing was performed by multiplex flow immunoassay on the BioPlex platform. us Edita Garza PROFESSIONAL SHOPPER, AVIATION TECHNICAL SYSTEMS SPECIALIST IMMUNOLOGY ORDERABL ES Final Result Performing Organization Address [facility] Co de Phone Number [facility] [address] [place] [address], [place] * QUANTIFERON-TB GOLD PLUS (07/26/2021 9:00 AM CDT) NIL CONTROL 0.04 <8.01 IU/mL 07/28/2021 1:01 PM CDT [facility] TB ANTIGEN 1 0.00 <0.35 IU/mL 07/28/2021 1:01 PM CDT [facility] TB ANTIGEN 2 0.00 <0.35 IU/mL 07/28/2021 1:01 PM CDT [facility] MITOGEN CONTROL 9.64 >0.49 IU/mL 07/29/19 1:01 PM CDT [facility] INTEPRETATION TB NEGATIVE NEGATIVE, NEGATIVE (TB antigen response less than 25% of internal negative control value) 07/28/2021 1:01 PM CDT [facility] Comment:No immune response t o Mycobacterium tuberculosis antigens was noted. M. tuberculosis infection unlikely. Blood No Phlebotomy Charged / Unknown 07/26/2021 9:00 AM CDT 07/26/2021 2:15 PM CDT Narrative [facility] - 07/28/2021 1:01 PM CDT [...] immunocompromised individuals. https://www.cdc.gov/tb/publications/guidelines/testing.htm us Edita L Behrends PROFESSIONAL SHOPPER, AVIATION TECHNICAL SYSTEMS SPECIALIST IMMUNOLOGY ORDERABL ES Final Result Performing Organization Address [facility] Co de Phone Number [facility] [address] [place] [address], [place] * HEPATITIS B SURFACE ANTIBODY (HBSAB) (07/26/2021 9:00 AM CDT) HEPATITIS B SURFACE ANTIBODY 8.33 mIU/mL [facility] ARCH [id number] B 07/27/2021 12:02 AM CDT [facility] Comment: Grayzone Range: >=8.00 to <=12.00 The immune status of the individual should be further assessed considering other factors, such as clinical status, follow-up testing, associated risk factors and the use of additional diagnostic information. Blood No Phlebotomy Charged / Unknown 07/26/2021 9:00 AM CDT 07/26/2021 2:15 PM CDT us Edita Garza PROFESSIONAL SHOPPER, AVIATION TECHNICAL SYSTEMS SPECIALIST CHEMISTRY ORDERABLE S Final Result Performing Organization Address [facility] Co de Phone Number [facility] [address] [place] [address], [place] documented in this encounter Visit Diagnoses Diagnosis Encounter for pre-employment examination Health examination of defined subpopulation documented in this encounter Additional Health Concerns Assessment Noted Time PHQ-9 Depression Total Score: 0 02/11/20 20 12:57 PM CDT documented as of this encounter Care Teams Machine Trimmer Relationship Specialty Start Date End Date Scooter White DO [address] [place] [address] [place] [address] PCP - General Internal Medicine 03/17/21 06/22/23 Yon Gutierrez MD [address] [place] [address] [address] PCP - General Family Medicine 06/23/23 Manda Singh MD Obstetrics & Gynecology 02/11/20 Malik Cates MD #[address] [address] Consulting Physician Endocrinology 12/13/21 Ulices Marino MD #[address] [address] Consulting Physician Colon and Rectal Surgery 07/06/22 Georgina Fontenot APRN, MARKETING AND OUTREACH COORDINATOR [address] [place] [address] Nurse Practitioner Advanced Practice Nurse 09/25/24 documented as of this encounter
--- OUTSIDE RECORDS SUMMARY | 2024-11-16 09:16 | XMS_ITS | Clinical Summary ---
Author Organization [facility] Address [address] [place] [address] Care Team Providers Care Nickel Plater Name Role Phone Scooter White DO Primary Care Provider [phone] Source Comments [facility],non-owned Affiliates and Associated Physician Practices is amultiple site organization consisting of ambulatory clinics and hospital sitesin [place], [place], [place] and [place]. This disclosure is being madepursuant to the Care Everywhere program and may not contain all information available regarding this patient. Last updated 18.[facility] Allergies Active Allergy Reactions Criticality Noted Date [...] Type Department Care Team Description 10/28/2024 Telephone [facility] [address] [place], [place] [id number] Silvina León Appointment 09/24/2024 1:00 PM CDT - 09/24/2024 11:59 PM CDT Hospital Encounter [facility] [address] [place] [address] Derick Mcclendon MD BELL ATTENDANT Discharge Disposition: Home or Self Care 08/27/2024 12:58 PM CDT - 08/27/2024 11:59 PM CDT Hospital Encounter [facility] [address] [place] [address] Christiano Tristan MD Discharge Disposition: Home or [...] on file Legal Sex Female 1:08 PM HOSPICE/HOME HEALTH AIDE Gender Identity Not on file Sexual Orientation [...] 19+ 3-dose series) 01/07/2012 PAP SMEAR 2014 HPV VACCINE (1 - 3-dose SCDM series) 01/07/2020 COVID-19 VACCINE (3 - 2023-2 5 season) 2024 08/06/2021, 07/16/2021 DEPRESSION SCREENING 05/08/2024 OB-ONE HOUR GLUCOSE 09/08/2024 OB-TDAP CURRENT 09/15/2024 10/10/2019 OB-RHOGAM INJECTION 09/22/2024 OB-GROUP B STREP SCREEN 11/10/2024 INFLUENZA VACCINE (#1) 2025 01/24/2020 ZOSTER VACCINE (1 of 2) [...] (HCC) Dichorionic diamniotic twin in second trimester ([facility]) 28 weeks gestation of ([facility]) Supervision of high risk in second trimester ([facility]) Obesity affecting in second trimester, unspecified obesity type ([facility]) Encounter for follow-up ultrasound of anatomy ([facility]) Encounter for ultrasound to assess growth ([facility]) SONOGRAM - COMPLETE Routine 08/27/2024 1 2:52 PM CDT Dichorionic diamniotic twin in second trimester ([facility]) History of pre-eclampsia in prior , currently ([facility]) 24 weeks gestation of ([facility]) Supervision of high risk in second trimester ([facility]) from Last 3 Months Results * SONOGRAM - COMPLETE (09/24/2024 1:09 PM CDT) Only the most recent of2 resultswithin the time period is included. Linked Results Indication ======== DA/DC Twins Incomplete Anatomy Screen x2 History of Preeclampsia, Obesity in , Class II History ====== OB History 4. Para 3 [id number] 1. live 2011. Gest. age 41 w [...] 2 lb 14 oz EFW by Hadlock ([id number]) EFW discordance 4.6 % appropriate Fetus B: Biometry BPD 69.2 mm 27w 6d 42% Hadlock HC 260.6 mm 28w 2d 39% Hadlock AC 252.3 mm 29w 3d 88% Hadlock Femur 51.1 mm 27w 3d 25% Hadlock Humerus 48.6 mm 28w 4d 68% Robinson HC / AC 1.03 Weight Calculation: EFW 1,242 g 69% Hadlock EFW (lb,oz) 2 lb 12 oz EFW by Hadlock ([id number]) EFW discordance 4.6 % appropriate Fetus A: [...] Thorax RVOT view. LVOT view. 3-vessel view. 8-kuomox-hwtlrhw view. Situs. Bicaval view. Ductal arch view. [...] view. RVOT view. LVOT view. 3-vessel view. 3-isgkwe-teeqkaj view. Situs. Aortic arch view. Bicaval view. [...] and begin weekly testing Coding ====== Procedures [id number]: US Preg Uterus Follow Up. x2 [employer] PACS Anatomical Region Laterality Modality Other 09/24/2024 1:09 PM CDT R Bert Garcia MD [facility] ORDERABLES Edited Result - Final from Last 3 Months Insurance HEALTH CARE Care Teams Nickel Plater Relationship Specialty Start Date End Date Scooter White DO PCP - General 03/16/22
--- OUTSIDE RECORDS SUMMARY | 2024-11-16 09:16 | XMS_ITS | Encounter Summary ---
Author Organization [facility] Address [address] [place] [address] Care Team Providers Care Air Purifier Servicer Name Role Phone Scooter White DO Primary Care Provider Encounter Details Date Type Department Care Team (Late st Contact Info) Description 11/06/2018 Lab Requisition [facility] Care Pathology Lab [address] [place] [address] Cindi Herrera MD [address] [place] [address] Enlarged lymph nodes Social History Tobacco Use Types Packs/Day Years Used Date Smoking Tobacco: Never Smokeless Tobacco: Never Alcohol Use Standard Drinks/Week Comments No 0 (1 standard drink = 0.6 oz pur e alcohol) Comments No Sex and Gender Information Value Date Recorded Sex Assigned at Not on file Legal Sex Female 1:08 PM LACE FINISHER Gender Identity Not on file Sexual [...] AM CDT) Case Report Flow Cytometry Case: [id number] Authorizing Provider: Cindi Herrera MD Collected: 11/05/2018 11:02 AM Pathologist: Alexa Weinberg MD Received: 11/06/2018 02:01 PM Specimen: Cervical Lymph Node , Left 9 5:33 PM T [facility] PATHOLOGY [facility] Final Diagnosis Lymph node, left cervical, flow cytometric immunophenotypic analysis: - No evidence of non-Hodgkin lymphoma. - See interpretation. 9 5:33 PM [facility] PATHOLOGY [facility] at 1733 CDT [...] the flow cytometry specimen is reviewed for environmental quality analyst purposes. In summary, the left cervical lymph node specimen shows no evidence of a non-Hodgkin lymphoma. Correlation with additional clinical information and the concurrent biopsy specimen is required. KR 9 5:33 PM [facility] Flow Cytometry Results Differential Result Comment Flow Cell Count /uL [id number] Total Viability % 86.0 Lymphocytes % 97 Dim CD45 Region % 0 Monocytes % 1 Granulocytes % 1 9 5:33 PM [facility] Reason for test Enlarged lymph nodes 785.6 9 5:33 PM [facility] Client Specimen ID # [id number] 9 5:33 PM [facility] Number of markers 16 were performed. A Flow CD3 A Flow CD10 A Flow CD20 A Flow CD23 A Flow CD2 A Flow CD4 A Flow CD1a A Flow CD5 A Flow CD19 A Flow CD34 A Flow CD45 A Flow CD7 A Flow CD8 A Flow CD30 A Kell+CD19+ A Lambda+CD19+ 9 5:33 PM [facility] Disclaimer Test performed at [facility], [address] [place], [place], [address]. *The established laboratory minimum viability is 70%. [...] complexity clinical testing. 9 5:33 PM CDT [facility] Embedded Images 9 5:33 PM CDT [facility] Pathology/Cytolo gy ENTIRE CERVICAL LYMPH NODE / Unknown 11/05/2018 11:02 AM CDT 11/06/2018 2:01 PM CDT Cindi Herrera MD LAB - PATHOLOGY/CYTOLOGY ORDERA BLE Final Result [facility] PATH[facility] [address] [facility] [place] [address], [facility] [phone] documented in this encounter Visit Diagnoses Diagnosis Enlarged lymph nodes Enlargement of lymph nodes documented in this encounter Care Teams Air Purifier Servicer Relationship Specialty Start Date End Date Scooter White DO PCP - General 03/16/22 documented as of this encounter
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
--- OUTSIDE RECORDS SUMMARY | 2024-11-16 09:16 | XMS_ITS | Encounter Summary ---
Author Organization [facility] Address [address] [place] [address] Phone Care Team Providers Care Retail Advertising Sales Manager Name Role Phone Manda Singh MD Unavailable [phone] Robby Torres Primary Care Provider Scooter White DO Primary Care Provider Malik Cates MD Unavailable Ulices Marino MD Unavailable Yon Gutierrez MD Primary Care Provider Georgina Fontenot APRN, [facility] Unavailable [phone] Encounter Details Date Type Department Care Team (Late st Contact Info) Description 03/09/2020 [facility] [address] [place] [address] Walter Blake MD [address] [place] [address] Preop testing (Primary Dx) Social History Tobacco [...] COVID-19? Unable to assess 03/10/2020 1:32 PM MEDICAL MASSAGE THERAPIST documented as of this encounter Plan of Treatment Not on file documented as of this encounter Visit Diagnoses Diagnosis Preop testing- Primary Preoperative examination, unspecified documented in this encounter Additional Health Concerns Infection Onset Date Last Indicated Resolved Time COVID - 19 03/10/2020 03/10/2020 03/16/2020 11:4 0 AM MEDICAL MASSAGE THERAPIST Assessment Noted Time PHQ-9 Depression Total Score: 0 02/11/20 20 12:57 PM CDT documented as of this encounter Care Teams Retail Advertising Sales Manager Relationship Specialty Start Date End Date Robby Torres [address] [facility] [place] [address] PCP - General Family Medicine 02/11/20 03/16/21 Scooter White DO [facility] [facility] [place] [address] PCP - General Internal Medicine 03/17/21 06/22/23 Yon Gutierrez MD [address] [facility] , [facility] [address] [place] [address] PCP - General Family Medicine 06/23/23 Manda Singh MD Obstetrics & Gynecology 02/11/20 Malik Cates MD [address] [facility] [address] [place] [address] Consulting Physician Endocrinology 12/13/21 Ulices Marino MD [address] [address] Consulting Physician Colon and Rectal Surgery 07/06/22 Georgina Fontenot APRN, [employer] [address] [place] [address] Nurse Practitioner Advanced Practice Nurse 09/25/24 documented as of this encounter
--- OUTSIDE RECORDS SUMMARY | 2024-11-16 09:16 | XMS_ITS | Continuity of Care Document ---
Author Organization [facility] Address [address] [place] [address] [address] [place] [address] Phone Care Team Providers Care Ui Programmer Name Role Phone Carol OD OD, Georgina [...] Active Procedures Procedure Date OFFICE/OUTPATIENT VISIT, [facility] Comp cont lens eval No Charge Visit N/C Glasses Check Advance Directives Directive Yes / No Effective Date File Name No Information Encounters Encounter Description Practice Location Reason(s) For Visit Diagnoses Date Provider Providers Copied on Encounter [facility], [address] [place] [address] [address], [place], [place], [id number], tel:[phone] [facility] KENTRELL LOPEZ No Information 3 Carol OD Georgina. [address] [facility], [address], [place], [place], [id number], [place]. tel:[phone] Referring Provider: Georgina Medina OD, [address] [facility] [address], [place], [address] . tel:[phone] OFFICE/OUTPA TIENT VISIT, [facility], [address] [place] [address], [id number], tel:[phone] [facility]OPEZ blurry vision (chief complaint) dry eye (chief complaint) Krystin's thyroiditisMyo roger, bilateralTear film insufficiency of bilateral lacrimal glandsOther vitreous opacities, bilateralCorne al neovasculariza tion of both eyes 2 Derheimer OD Georgina. [address], [address] [place] [address], [id number], [place]. tel:[phone] Referring Provider: Scooter White, [address], [place], [address]. tel:[phone] [facility], [address] [place] [address], [id number], tel:[phone] [facility] KENTRELL LOPEZ No Information 6 Derheimer OD Georgina. [address], [address] [place] [address], [id number], [place]. tel:[phone] Referring Provider: Georgina Medina OD, [address], [place], [address] . tel:[phone] [facility], [address] [place] [address], [id number], tel:[phone] OPH CONSULT KENTRELL LOPEZ blurry vision (chief complaint) Myopia, bilateral 6 Derheimer OD Georgina. [address], [place], [place], [id number], [place]. tel:[phone] Referring Provider: Georgina Medina OD, [address], [place], [address] . tel:[phone] [facility], [address] [place] [address], [id number], tel:[phone] OPH CONSULT KENTRELL LOPEZ No Information 1 Beth Cohenl. [address], [place], [place], [id number], [place]. tel:[phone] Family History Family Member Type Diagnosis Age [...]
--- OUTSIDE RECORDS SUMMARY | 2024-11-16 09:17 | XMS_ITS | Data Portability ---
Author Organization [facility] Address [address] [place] [address] Care Team Providers Care Overlock Waistline Joiner Name Role Phone ZO MORA OTHER [phone] Assessment Encounter Date Assessment Date Assessment LastModified [...] auto diff 2018 019 [facility], [address] [address], [place], [address], 9 06:40:13 ferritin, serum or plasma 2018 019 [facility], [address] [facility] [address], [place], [address], 9 06:40:14 iron + total iron-bindin g capacity (TIBC), serum 2018 019 [facility], [address] [place] [address] 2, [place], [address], 9 06:40:14 HIV 1+2 AB + HIV 1 p24 Ag, qualitative immunoassay , serum 2018 019 [facility], [address], [place], [address], 9 07:12:01 HBsAg (hepatitis B surface Ag), EIA, serum 2018 019 [facility], [address], [place], [address], 9 07:12:02 hepatitis C Ab, signal-to-c utoff, serum or plasma 2018 019 [facility], [address], [place], [address], 9 07:12:01 RPR (rapid plasma reagin), serum 2018 019 [facility], [address], [place], [address], 9 07:12:00 hsv (1+2) igg Ab, serum 2018 019 [facility], [address] [facility], [place], [address], 9 07:12:00 CBC w/ auto diff 2018 019 [facility], [address] [facility], [place], [address], 9 07:11:59 Referral general surgeon referral 2018 019 LANA Moralez MD, [address] [facility] , [facility] [address], [place], [address], 9 12:38:24 ENT referral - Saw Dr. Mora --- need a second opinion. 2018 019 [facility], 2 [facility], [address], [place], [address], 9 17:55:21 Procedures None recorded. Surgeries None recorded. Imaging None recorded. Medication Orders ferrous sulfate 325 mg (65 mg iron) tablet [address] [facility] [address] [facility], [address] [place] [address], [address], 9 11:26:58 Mucinex 600 mg tablet, extended release [address] [facility] [address] [facility], [address] [place] [address], [address], 9 00:24:12 ferrous sulfate 325 mg (65 mg iron) tablet [address] [facility] [address] [facility], [address] [place] [address], [address], 9 12:48:40 Tessalon Perles 100 mg capsule [address] [facility], [address] [place] [address], [address], 9 00:24:06 Patient TargetsNo targets recorded. Patient Instructions Encounter Date Encounter Id Patient Instructions Last Modified By Organization Details Last Modified Time 07/27/2018 [id number] upper respirator y infection (cold): care instructions Not available 07/27/2018 13:23:41 08/29/2018 [id number] hemorrhoids: car e instructions Not available 08/29/2018 16:13:52 anemia: care instructions Not available 08/29/2018 18:08:26 09/05/2018 [id number] Acute Sinusitis: Care Instructions Not available 09/05/2018 12:48:40 11/13/2018 [id number] hemorrhoids: car e instructions Not available 11/27/2018 00:17:15 02/13/2019 [id number] dizziness: care instructions Not available 02/13/2019 11:26:58 electrocardiogra m interpretation* ATHENAFAX Not available 03/13/2019 15:05:29 Reason for Referral ENT Referral for Cervical ly mphadenopathy Saw Dr. Mora --- need a second opinion. Referring Physician: Lucero Sandoval, Family Medicine, Encounter Date: 07/27/2018 General Surgeon Referral for Hemorrhoids Referring Physician: Ricardo Ramirez, PHP [employer] DEV[employer]OPER, Encounter Date: 08/29/2018 Results Created Date Observation Date Name Description Value Unit Range Abnormal Flag Note LastModifiedBy Organization Detail LastModifiedTime 07/04/19 19 07/05/2018 TSH + free T4, serum TSH 3.080 uIU/m L 0.450- 4.500 Not Available [facility] ([facility]) [address] [place], [address], 07/05/2018 09:23:03 07/04/19 19 07/05/2018 TSH + free T4, serum T4,free(dire ct) 1.06 NG/dL 0.82-1 .77 Not Available [facility] ([facility]) [address] [place], [address], 07/05/2018 09:23:03 07/04/19 19 07/04/2018 CBC w/ auto diff WBC 7.2 x10e3 /uL 3.4-10 .8 Not Available [facility] ([facility]) [address] [place], [address], 07/05/2018 09:23:03 07/04/19 19 07/04/2018 CBC w/ auto diff RBC 4.87 x10e6 /uL 3.77-5 .28 Not Available [facility] ([facility]) [address] [place], [address], 07/05/2018 09:23:03 07/04/19 19 07/04/2018 CBC w/ auto diff hemoglobin 11.5 g/dL 11.1-1 5.9 Not Available [facility] ([facility]) [address] [place], [address], 07/05/2018 09:23:03 07/04/19 19 07/04/2018 CBC w/ auto diff hematocrit 36.2 % 34.0-4 6.6 Not Available [facility] ([facility]) [address] [place], [address], 07/05/2018 09:23:03 07/04/19 19 07/04/2018 CBC w/ auto diff MCV 74 fL 79-97 below low normal Not Available [facility] ([facility]) [address] [place], [address], 07/05/2018 09:23:03 07/04/19 19 07/04/2018 CBC w/ auto diff MCH 23.6 pg 26.6-3 3.0 below low normal Not Available [facility] ([facility]) [address] [place], [address], 07/05/2018 09:23:03 07/04/19 19 07/04/2018 CBC w/ auto diff MCHC 31.8 g/dL 31.5-3 5.7 Not Available [facility] ([facility]) [address] [place], [address], 07/05/2018 09:23:03 07/04/19 19 07/04/2018 CBC w/ auto diff RDW 16.0 % 12.3-1 5.4 above high normal Not Available [facility] ([facility]) [address] [place], [address], 07/05/2018 09:23:03 07/04/19 19 07/04/2018 CBC w/ auto diff platelets 480 x10e3 /uL 150-37 9 above high normal Not Available [facility] ([facility]) [address] [place], [address], 07/05/2018 09:23:03 07/04/19 19 07/04/2018 CBC w/ auto diff neutrophils 64 % not estab. Not Available [facility] ([facility]) [address] [place], [address], 07/05/2018 09:23:03 07/04/19 19 07/04/2018 CBC w/ auto diff lymphs 28 % not estab. Not Available [facility] ([facility]) [address], [place], [address], 07/05/2018 09:23:03 07/04/19 19 07/04/2018 CBC w/ auto diff monocytes 6 % not estab. Not Available [facility] ([facility]) [address], [place], [address], 07/05/2018 09:23:03 07/04/19 19 07/04/2018 CBC w/ auto diff eos 1 % not estab. Not Available [facility] ([facility]) [address] [place], [address], 07/05/2018 09:23:03 07/04/19 19 07/04/2018 CBC w/ auto diff basos 1 % not estab. Not Available [facility] ([facility]) [address], [place], [address], 07/05/2018 09:23:03 07/04/19 19 07/04/2018 CBC w/ auto diff immature cells SOLAR MECH[employer]ICAL ENGINEER Not Available [facility] ([facility]) [address], [place], [address], 07/05/2018 09:23:03 07/04/19 19 07/04/2018 CBC w/ auto diff neutrophils (absolute) 4.6 x10e3 /uL 1.4-7. 0 Not Available [facility] ([facility]) [address] [place], [address], 07/05/2018 09:23:03 07/04/19 19 07/04/2018 CBC w/ auto diff lymphs (absolute) 2.0 x10e3 /uL 0.7-3. 1 Not Available [facility] ([facility]) [address] [place], [address], 07/05/2018 09:23:03 07/04/19 19 07/04/2018 CBC w/ auto diff monocytes(ab solute) 0.5 x10e3 /uL 0.1-0. 9 Not Available [facility] ([facility]) [address], [place], [address], 07/05/2018 09:23:03 07/04/19 19 07/04/2018 CBC w/ auto diff eos (absolute) 0.1 x10e3 /uL 0.0-0. 4 Not Available [facility] ([facility]) [address], [place], [address], 07/05/2018 09:23:03 07/04/19 19 07/04/2018 CBC w/ auto diff baso (absolute) 0.1 x10e3 /uL 0.0-0. 2 Not Available [facility] ([facility]) [address], [place], [address], 07/05/2018 09:23:03 07/04/19 19 07/04/2018 CBC w/ auto diff immature granulocytes 0 % not estab. Not Available [facility] ([facility]) [address], [place], [address], 07/05/2018 09:23:03 07/04/19 19 07/04/2018 CBC w/ auto diff immature grans (abs) 0.0 x10e3 /uL 0.0-0. 1 Not Available [facility] ([facility]) [address], [place], [address], 07/05/2018 09:23:03 07/04/19 19 07/04/2018 CBC w/ auto diff NRBC SOLAR MECH[employer]ICAL ENGINEER Not Available [facility] ([facility]) [address] [place], [address], 07/05/2018 09:23:03 07/04/19 19 07/04/2018 CBC w/ auto diff hematology comments: SOLAR MECHANICAL ENGINEER Not Available [facility] ([facility]) [address], [place], [address], 07/05/2018 09:23:03 07/04/19 19 07/05/2018 CMP, serum or plasm a glucose 90 mg/dL 65-99 Not Available [facility] ([facility]) [address] [place], [address], 07/05/2018 09:23:04 07/04/19 19 07/05/2018 CMP, serum or plasm a BUN 9 mg/dL 6-20 Not Available [facility] ([facility]) [address] [place], [address], 07/05/2018 09:23:04 07/04/19 19 07/05/2018 CMP, serum or plasm a creatinine 0.66 mg/dL 0.57-1 .00 Not Available [facility] ([facility]) [address] [place], [address], 07/05/2018 09:23:04 07/04/19 19 07/05/2018 CMP, serum or plasm a eGFR if nonafricn AM 123 mL/mi n/1.7 3 >59 Not Available [facility] ([facility]) [address] [place], [address], 07/05/2018 09:23:04 07/04/19 19 07/05/2018 CMP, serum or plasm a eGFR if africn AM 142 mL/mi n/1.7 3 >59 Not Available [facility] ([facility]) [address] [place], [address], 07/05/2018 09:23:04 07/04/19 19 07/05/2018 CMP, serum or plasm a BUN/creatini ne ratio 14 9-23 Not Available [facility] ([facility]) [address] [place], [address], 07/05/2018 09:23:04 07/04/19 19 07/05/2018 CMP, serum or plasm a sodium 139 mmol/ L 134-14 4 Not Available [facility] ([facility]) [address] [place], [address], 07/05/2018 09:23:04 07/04/1907/05/2018 CMP, serum or plasm a potassium 4.4 mmol/ L 3.5-5. 2 Not Available [facility] ([facility]) [address] [place], [address], 07/05/2018 09:23:04 07/04/1907/05/2018 CMP, serum or plasm a chloride 102 mmol/ L 96-106 Not Available [facility] ([facility]) [address] [place], [address], 07/05/2018 09:23:04 07/04/1907/05/2018 CMP, serum or plasm a carbon dioxide, total 23 mmol/ L 20-29 Not Available [facility] ([facility]) [address] [place], [address], 07/05/2018 09:23:04 07/04/1907/05/2018 CMP, serum or plasm a calcium 9.7 mg/dL 8.7-10 .2 Not Available [facility] ([facility]) [address] [place], [address], 07/05/2018 09:23:04 07/04/19 19 07/05/2018 CMP, serum or plasm a protein, total 8.1 g/dL 6.0-8. 5 Not Available [facility] ([facility]) [address] [place], [address], 07/05/2018 09:23:04 07/04/1907/05/2018 CMP, serum or plasm a albumin 4.6 g/dL 3.5-5. 5 Not Available [facility] ([facility]) [address] [place], [address], 07/05/2018 09:23:04 07/04/1907/05/2018 CMP, serum or plasm a globulin, total 3.5 g/dL 1.5-4. 5 Not Available [facility] ([facility]) [address] [place], [address], 07/05/2018 09:23:04 07/04/1907/05/2018 CMP, serum or plasm a A/G ratio 1.3 1.2-2. 2 Not Available [facility] ([facility]) [address] [place], [address], 07/05/2018 09:23:04 07/04/1907/05/2018 CMP, serum or plasm a bilirubin, total 0.3 mg/dL 0.0-1. 2 Not Available [facility] ([facility]) [address] [place], [address], 07/05/2018 09:23:04 07/04/1907/05/2018 CMP, serum or plasm a alkaline phosphatase 68 IU/L 39-117 Not Available [facility] ([facility]) [address] [place], [address], 07/05/2018 09:23:04 07/04/1907/05/2018 CMP, serum or plasm a AST (SGOT) 20 IU/L 0-40 Not Available [facility] ([facility]) [address] [place], [address], 07/05/2018 09:23:04 07/04/1907/05/2018 CMP, serum or plasm a ALT (SGPT) 15 IU/L 0-32 Not Available [facility] ([facility]) [address] [place], [address], 07/05/2018 09:23:04 07/04/1907/05/2018 cytom egalo virus (cmv) igg+i gm Ab, serum cytomegalovi yung (CMV) Ab, IgG <0.60 U/mL 0.00-0 .59 Negat hayde <0.60 Equiv ocal 0.60 - 0.69 Posit hayde >0.69 Not Available [facility] ([facility]) [address], [place], [address], 07/05/2018 09:23:04 07/04/19 19 07/05/2018 cytom egalo virus (cmv) igg+i gm Ab, serum cytomegalovi yung (CMV) Ab, IgM <30.0 AU/mL 0.0-29 .9 Negat hayde <30.0 Equiv ocal 30.0 - 34.9 Posit hayde >34.9 A posit hayde resul t is gener ally indic ative of acute infec tion, react ivati on or persi stent IgM produ ction . Not Available [facility] ([facility]) [address], [place], [address], 07/05/2018 09:23:04 07/04/1907/05/2018 RPR (rapi d plasm a reagi n), serum RPR Non Reacti ve non reacti ve Not Available [facility] ([facility]) [address], [place], [address], 07/05/2018 09:23:05 07/04/1907/05/2018 heter ophil e Ab, quali tativ e latex agglu tinat ion, serum mono qual w/rflx qn Negati ve negati ve The sensi tivit y of Heter ophil e antib srinivasan testi ng is 80-90 %. Epste in [place] IgM testi ng offer s highe r sensi tivit y. Not Available [facility] ([facility]) [address], [place], [address], 07/05/2018 09:23:06 08/30/1908/30/2018 CBC w/ auto diff WBC 7.4 x10e3 /uL 3.4-10 .8 Not Available [facility] ([facility]) [address] [place], [address], 08/30/2018 07:11:59 08/30/19 19 08/30/2018 CBC w/ auto diff RBC 4.51 x10e6 /uL 3.77-5 .28 Not Available [facility] ([facility]) [address] [place], [address], 08/30/2018 07:11:59 08/30/19 19 08/30/2018 CBC w/ auto diff hemoglobin 11.0 g/dL 11.1-1 5.9 below low normal Not Available [facility] ([facility]) [address] [place], [address], 08/30/2018 07:11:59 08/30/1908/30/2018 CBC w/ auto diff hematocrit 34.2 % 34.0-4 6.6 Not Available [facility] ([facility]) [address] [place], [address], 08/30/2018 07:11:59 08/30/19 19 08/30/2018 CBC w/ auto diff MCV 76 fL 79-97 below low normal Not Available [facility] ([facility]) [address] [place], [address], 08/30/2018 07:11:59 08/30/19 19 08/30/2018 CBC w/ auto diff MCH 24.4 pg 26.6-3 3.0 below low normal Not Available [facility] ([facility]) [address] [place], [address], 08/30/2018 07:11:59 08/30/1908/30/2018 CBC w/ auto diff MCHC 32.2 g/dL 31.5-3 5.7 Not Available [facility] ([facility]) [address] [place], [address], 08/30/2018 07:11:59 08/30/19 19 08/30/2018 CBC w/ auto diff RDW 15.6 % 12.3-1 5.4 above high normal Not Available [facility] ([facility]) [address], [place], [address], 08/30/2018 07:11:59 08/30/19 19 08/30/2018 CBC w/ auto diff platelets 389 x10e3 /uL 150-37 9 above high normal Not Available [facility] ([facility]) [address], [place], [address], 08/30/2018 07:11:59 08/30/19 19 08/30/2018 CBC w/ auto diff neutrophils 59 % not estab. Not Available [facility] ([facility]) [address], [place], [address], 08/30/2018 07:11:59 08/30/19 19 08/30/2018 CBC w/ auto diff lymphs 31 % not estab. Not Available [facility] ([facility]) [address], [place], [address], 08/30/2018 07:11:59 08/30/19 19 08/30/2018 CBC w/ auto diff monocytes 8 % not estab. Not Available [facility] ([facility]) [address], [place], [address], 08/30/2018 07:11:59 08/30/19 19 08/30/2018 CBC w/ auto diff eos 1 % not estab. Not Available [facility] ([facility]) [address], [place], [address], 08/30/2018 07:11:59 08/30/1908/30/2018 CBC w/ auto diff basos 1 % not estab. Not Available [facility] ([facility]) [address], [place], [address], 08/30/2018 07:11:59 08/30/1908/30/2018 CBC w/ auto diff immature cells SOLAR MECHANICAL ENGINEER Not Available [facility] ([facility]) [address], [place], [address], 08/30/2018 07:11:59 08/30/19 19 08/30/2018 CBC w/ auto diff neutrophils (absolute) 4.4 x10e3 /uL 1.4-7. 0 Not Available [facility] ([facility]) [address] [place], [address], 08/30/2018 07:11:59 08/30/1908/30/2018 CBC w/ auto diff lymphs (absolute) 2.3 x10e3 /uL 0.7-3. 1 Not Available [facility] ([facility]) [address] [place], [address], 08/30/2018 07:11:59 08/30/1908/30/2018 CBC w/ auto diff monocytes(ab solute) 0.6 x10e3 /uL 0.1-0. 9 Not Available [facility] ([facility]) [address] [place], [address], 08/30/2018 07:11:59 08/30/1908/30/2018 CBC w/ auto diff eos (absolute) 0.1 x10e3 /uL 0.0-0. 4 Not Available [facility] ([facility]) [address] [place], [address], 08/30/2018 07:11:59 08/30/1908/30/2018 CBC w/ auto diff baso (absolute) 0.0 x10e3 /uL 0.0-0. 2 Not Available [facility] ([facility]) [address] [place], [address], 08/30/2018 07:11:59 08/30/1908/30/2018 CBC w/ auto diff immature granulocytes 0 % not estab. Not Available [facility] ([facility]) [address] [place], [address], 08/30/2018 07:11:59 08/30/1908/30/2018 CBC w/ auto diff immature grans (abs) 0.0 x10e3 /uL 0.0-0. 1 Not Available [facility] ([facility]) [address], [place], [address], 08/30/2018 07:11:59 08/30/1908/30/2018 CBC w/ auto diff NRBC SOLAR MECHANICAL ENGINEER Not Available [facility] ([facility]) [address], [place], [address], 08/30/2018 07:11:59 08/30/1908/30/2018 CBC w/ auto diff hematology comments: SOLAR MECHANICAL ENGINEER Not Available [facility] ([facility]) [address], [place], [address], 08/30/2018 07:11:59 08/30/1908/30/2018 hsv (1+2) igg Ab, [...] willy to HSV-1 . Not Available [facility] ([facility]) [address], [place], [address], 08/30/2018 07:12:00 08/30/1908/30/2018 hsv (1+2) igg Ab, [...] willy to HSV-2 . Not Available [facility] ([facility]) [address], [place], [address], 08/30/2018 07:12:00 08/30/19 19 08/30/2018 RPR (rapi d plasm a reagi n), serum RPR Non Reacti ve non reacti ve Not Available [facility] ([facility]) [address], [place], [address], 08/30/2018 07:12:00 08/30/1908/30/2018 HIV 1+2 AB + HIV 1 p24 Ag, quali tativ e immun oassa y, serum HIV screen 4TH generation wrfx Non Reacti ve non reacti ve Not Available [facility] ([facility]) [address], [place], [address], 08/30/2018 07:12:01 08/30/19 19 08/30/2018 hepat itis C Ab, signa l-to- cutof f, serum or plasm a HCV Ab <0.1 s/co_ ratio 0.0-0. 9 Not Available [facility] ([facility]) [address], [place], [address], 08/30/2018 07:12:01 08/30/1908/30/2018 hepat itis C Ab, signa l-to- cutof f, serum or plasm a comment: Commen t Non react hayde HCV antib srinivasan scree n is consi stent with no HCV infec tion, unles s recen t infec tion is suspe cted or other evide nce exist s to indic ate HCV infec tion. Not Available [facility] ([facility]) [address], [place], [address], 08/30/2018 07:12:01 08/30/1908/30/2018 HBsAg (hepa titis B surfa ce Ag), EIA, serum HBsAg screen Negati ve negati ve Not Available [facility] ([facility]) [address], [place], [address], 08/30/2018 07:12:02 02/14/2002/14/2019 CBC w/ auto diff WBC 7.5 x10e3 /uL 3.4-10 .8 Not Available [facility] ([facility]) [address], [place], [address], 02/14/2019 06:40:13 02/14/2002/14/2019 CBC w/ auto diff RBC 4.34 x10e6 /uL 3.77-5 .28 Not Available [facility] ([facility]) [address], [place], [address], 02/14/2019 06:40:13 02/14/2002/14/2019 CBC w/ auto diff hemoglobin 11.1 g/dL 11.1-1 5.9 Not Available [facility] ([facility]) [address], [place], [address], 02/14/2019 06:40:13 02/14/2002/14/2019 CBC w/ auto diff hematocrit 34.2 % 34.0-4 6.6 Not Available [facility] ([facility]) [address], [place], [address], 02/14/2019 06:40:13 02/14/2002/14/2019 CBC w/ auto diff MCV 79 fL 79-97 Not Available [facility] ([facility]) [address], [place], [address], 02/14/2019 06:40:13 02/14/2002/14/2019 CBC w/ auto diff MCH 25.6 pg 26.6-3 3.0 below low normal Not Available [facility] ([facility]) [address], [place], [address], 02/14/2019 06:40:13 02/14/2002/14/2019 CBC w/ auto diff MCHC 32.5 g/dL 31.5-3 5.7 Not Available [facility] ([facility]) [address], [place], [address], 02/14/2019 06:40:13 02/14/2002/14/2019 CBC w/ auto diff RDW 15.0 % 12.3-1 5.4 Not Available [facility] ([facility]) [address], [place], [address], 02/14/2019 06:40:13 02/14/2002/14/2019 CBC w/ auto diff platelets 372 x10e3 /uL 150-45 0 Not Available [facility] ([facility]) [address], [place], [address], 02/14/2019 06:40:13 02/14/2002/14/2019 CBC w/ auto diff neutrophils 61 % not estab. Not Available [facility] ([facility]) [address], [place], [address], 02/14/2019 06:40:13 02/14/2002/14/2019 CBC w/ auto diff lymphs 28 % not estab. Not Available [facility] ([facility]) [address], [place], [address], 02/14/2019 06:40:13 02/14/2002/14/2019 CBC w/ auto diff monocytes 8 % not estab. Not Available [facility] ([facility]) [address], [place], [address], 02/14/2019 06:40:13 02/14/2002/14/2019 CBC w/ auto diff eos 2 % not estab. Not Available [facility] ([facility]) [address], [place], [address], 02/14/2019 06:40:13 02/14/2002/14/2019 CBC w/ auto diff basos 1 % not estab. Not Available [facility] ([facility]) [address], [place], [address], 02/14/2019 06:40:13 02/14/2002/14/2019 CBC w/ auto diff immature cells SOLAR MECHANICAL ENGINEER Not Available [facility] ([facility]) [address], [place], [address], 02/14/2019 06:40:13 02/14/2002/14/2019 CBC w/ auto diff neutrophils (absolute) 4.7 x10e3 /uL 1.4-7. 0 Not Available [facility] ([facility]) [address], [place], [address], 02/14/2019 06:40:13 02/14/2002/14/2019 CBC w/ auto diff lymphs (absolute) 2.1 x10e3 /uL 0.7-3. 1 Not Available [facility] ([facility]) [address], [place], [address], 02/14/2019 06:40:13 02/14/2002/14/2019 CBC w/ auto diff monocytes(ab solute) 0.6 x10e3 /uL 0.1-0. 9 Not Available [facility] ([facility]) [address], [place], [address], 02/14/2019 06:40:13 02/14/2002/14/2019 CBC w/ auto diff eos (absolute) 0.1 x10e3 /uL 0.0-0. 4 Not Available [facility] ([facility]) [address] [place], [address], 02/14/2019 06:40:13 02/14/2002/14/2019 CBC w/ auto diff baso (absolute) 0.0 x10e3 /uL 0.0-0. 2 Not Available [facility] ([facility]) [address], [place], [address], 02/14/2019 06:40:13 02/14/2002/14/2019 CBC w/ auto diff immature granulocytes 0 % not estab. Not Available [facility] ([facility]) [address], [place], [address], 02/14/2019 06:40:13 02/14/2002/14/2019 CBC w/ auto diff immature grans (abs) 0.0 x10e3 /uL 0.0-0. 1 Not Available [facility] ([facility]) [address] [place] [address], [place], [address], 02/14/2019 06:40:13 02/14/2002/14/2019 CBC w/ auto diff NRBC [employer] Not Available [facility] ([facility]) [address] [place] [address], [place], [address], 02/14/2019 06:40:13 02/14/2002/14/2019 CBC w/ auto diff hematology comments: [employer] Not Available [facility] ([facility]) [address], [place], [address], 02/14/2019 06:40:13 02/14/2002/14/2019 iron + total iron- leta ng capac ity (TIBC ), serum iron bind.cap.(TI BC) 353 ug/dL 250-45 0 Not Available [facility] ([facility]) [address] [place], [address], 02/14/2019 06:40:14 02/14/2002/14/2019 iron + total iron- leta ng capac ity (TIBC ), serum UIBC 336 ug/dL 131-42 5 Not Available [facility] ([facility]) [address] [place] [address], [address], 02/14/2019 06:40:14 02/14/2002/14/2019 iron + total iron- leta ng capac ity (TIBC ), serum iron 17 ug/dL 27-159 below low normal Not Available [facility] ([facility]) [address], [place], [address], 02/14/2019 06:40:14 02/14/20 19 02/14/2019 iron + total iron- leta ng capac ity (TIBC ), serum iron saturation 5 % 15-55 alert low Not Available [facility] ([facility]) [address], [place], [address], 02/14/2019 06:40:14 02/14/2002/14/2019 cristina tin, serum or plasm a ferritin, serum 7 NG/mL 15-150 below low normal Not Available [facility] ([facility]) [address], [place], [address], 02/14/2019 06:40:14 07/04/19 19 07/04/2018 XR, chest No observ ation record ed. [email or web address] [address] [place], [address], 07/06/2018 16:35:07 08/16/19 19 08/09/2018 CT, neck, soft tissu e, w/ contr ast No observ ation record ed. [address] [place], [address], 11/27/2018 00:09:00 08/17/19 19 08/16/2018 CT, sinus es, w/o contr ast No observ ation record ed. [address] [place], [address], 08/16/2018 13:21:28 Result Notes None recorded. Problems Name Problem SNOMED Code Status Onset Date Resolution Date Notes Provider Name and Address Organization Details Recorded Time Disorder of thyroid gland 57117959 Completed 201811/26/2018 [facility] New 9 00:12:22 Cervical lymphade nopathy 436562033 Active 2018 [facility] New 9 11:15:19 Upper respirat ory infectio n 56637661 Completed 201811/13/2018 [place] [facility] 9 11:05:53 Mean corpuscu lar volume below referenc e range 431064420 Active 2018 [place] [facility] 9 12:49:50 Acute sinusiti s 78402871 Completed 201811/13/2018 [place] [facility] 9 11:05:49 History of Helicoba cter pylori infectio n 57475209645 550840 Active 2018 GI [place] [facility] 9 00:05:39 Chronic gastriti s 9760245 Active 2018 EGD - H pylori, GI [place] [facility] 9 00:06:03 Hemorrho ids 85944791 Active 2018 Gen sx planning for hemorrho idectomy [place] [facility] 9 00:06:27 Dizzines s 257721354 Active 2018 [place] [facility] 9 11:29:10 Infectiv e vaginiti s 289898221 Active Radha Garcia [place] [facility] 6 11:25:47 Infectiv e vaginiti s 087801718 Completed Shahrzad Barrera [place] [facility] 5 09:18:25 Maternal care for diminish ed movement s Active Radha [place] [facility] 6 11:25:47 Maternal care for diminish ed movement s Completed Shahrzad Barrera [place] [facility] 5 09:18:25 Breastfe eding painful 443278329 Active Radha [place] [facility] 6 11:25:47 Pain in pelvis 38681434 Active Radha [place] [facility] 6 11:25:47 Vaginal discharg e 392717967 Active white Radha moreno, [facility] 6 11:25:47 Herpes simplex type 1 infectio n 948258072 Active Valtrex at 36 weeks Radha moreno, [facility] 6 11:25:47 Problem Notes None recorded. Procedures Surgical History Date Name Laterality Status Provider Name and Address Organization Details Recorded Time 05/08/19 16 Cholecystectomy completed Radha Garcia [facility] 11/03/2015 11:25:48 01/15/20 15 IUD Insertion completed Ricardo Box [facility] 01/14/2015 12:23:57 04/18/20 12 Date of Last Pap Smear completed Mily Parsons MA [facility] 05/06/2014 16:14:24 05/08/19 10 Appendectomy completed Maida Do MA [facility] 06/17/2014 11:12:04 Imaging Results None recorded. Procedure [...] Updated DateTime 9 162.56 cm 36.7 kg/m2 95871.0 4 g 97.9 [degF] 16 /min 76 /min 124/86 mm[Hg] Jenelle Groves [place] [facility] 9 12:24:37 Date Recorded Body height Body mass index (BMI) Body weight Systolic And Diastolic Provider Name and Address Organization Details Last Updated DateTime 08/29/2018 162.56 cm 36.2 kg/m2 58452.99 g 130/94 mm[Hg] Shahrzad Barrera MA [facility] 08/29/2018 11:38:34 Date Recorded Body height Body mass index (BMI) Body weight Body temperature Heart rate Respiratory rate Systolic And Diastolic Provider Name and Address Organization Details Last Updated DateTime 9 162.56 cm 36 kg/m2 31147.6 1 g 98.3 [degF] 84 /min 20 /min 132/84 mm[Hg] Jenelle Groves MA [facility] 9 12:15:41 Date Recorded Body height Body mass index (BMI) Body weight Body temperature Heart rate Respiratory rate Systolic And Diastolic Provider Name and Address Organization Details Last Updated DateTime 9 162.56 cm 35.5 kg/m2 06162.9 7 g 98.3 [degF] 70 /min 18 /min 130/80 mm[Hg] Jenelle Groves MA [facility] 9 10:43:45 Date Recorded Body height Body mass index (BMI) Body weight Heart rate Respiratory rate Body temperature Systolic And Diastolic Provider Name and Address Organization Details Last Updated DateTime 9 162.56 cm 36.3 kg/m2 11797.7 9 g 86 /min 20 /min 98.3 [degF] 130/82 mm[Hg] Jenelle Groves MA [facility] 9 11:02:19 Social History Question Answer Notes LastModified by Organizat ion Details LastModified Time Tobacco Smoking Status Never Smoker Maida Do MA [facility] 06/17/2014 11:12:04 Do You Have An Advance [...] Information not available 06/17/2014 Marital Status [place] [address] Informatio n not available 06/17/2014 What Was [...] SNOMED-CT Code Diagnosis ICD10 Code Diagnosis Note [id number] MD L[place] Weaver ([facility]) [address] [facility] [place] [address] 05/06/2014 15:15:04 05/07/2014 13:43:54 46247040 test positive [id number] Joan Blas [facility] Lalo Husain ([facility]) [address] [facility] [place] [address] 05/22/2014 14:23:39 05/22/2014 15:25:47 [id number] MD Lalo Roldan ([facility]) [address] [facility] [place] [address] 06/17/2014 10:44:30 06/17/2014 15:08:09 [id number] MD Lalo Roldan ([facility]) [address] [facility] [place] [address] 07/15/2014 10:26:03 07/16/2014 09:23:26 Normal [id number] [id number] MD Lalo Weaver ([facility] 122) [address] [facility] [place] [address] 08/12/2014 09:35:12 08/12/2014 12:42:08 Normal [id number] MD Lalo Weaver ([facility]) [address] [facility] [place] [address] 08/26/2014 11:56:11 08/27/2014 16:10:13 [id number] MD Lalo Weaver ([facility]) [address] [facility] [place] [address] 09/09/2014 14:42:01 09/09/2014 15:30:17 [id number] MD Lalo Weaver ([facility]) [address] [facility] [place] [address] 09/23/2014 09:49:09 09/23/2014 15:23:49 [id number] MD Lalo Weaver ([facility]) [address] [facility] [place] [address] 10/07/2014 10:59:01 10/07/2014 11:38:07 [id number] MD Lalo Weaver ([facility]) [address] [facility] [place] [address] 10/21/2014 09:36:51 10/23/2014 12:51:20 [id number] MD Lalo Weaver ([facility]) [address] [place] [address] 11/04/2014 09:43:59 11/04/2014 14:45:01 [id number] Normal [id number] MD Lalo Weaver ([facility]) [address] [facility] [place] [address] 11/11/2014 11:18:25 11/11/2014 14:54:02 51103838 Maternal c are for diminished movements 805481421 [id number] MD Lalo Weaver ([facility]) [address] [facility] [place] [address] 11/18/2014 10:46:59 11/18/2014 11:58:55 [id number] MD Lalo Weaver ([facility]) [address] [place] [address] 11/24/2014 08:49:50 11/24/2014 10:29:51 [id number] MD Lalo Weaver ([facility]) [address] [place] [address] 12/24/2014 09:05:47 12/24/2014 12:04:57 care [id number] MD Lalo Weaver ([facility]) [address] [facility] [place] [address] 01/14/2015 11:47:27 01/14/2015 12:33:02 care [id number] Uses contraception [id number] MD Lalo Weaver Womens ([facility] 122) [address] [facility] [place] [address] 01/19/2015 15:46:51 01/20/2015 09:49:17 IUD check 730768173 [id number] MD Lalo Weaver Womens ([facility] 122) [address] [facility] [place] [address] 02/11/2015 10:38:39 02/18/2015 18:08:10 IUD check 545095273 Z30.431 [id number] Joan Blas [facility] Lalo Womenjavi ([facility] 122) [address] [facility] [place] [address] 11/03/2015 11:00:12 11/03/2015 14:33:42 detection examination 61748330 Z32.00 IUD check 891129560 Z30. 462 [id number] MD Lalo HURTADO 14 IM [address] [facility] [place] [address] 07/04/2018 09:50:09 07/04/2018 16:26:43 Cervical lymphadenopathy 737069041 R59.0 Had a cough since 02/2018, on and off No traveling. No cat. Weight stable overall. Fatigue - despite sleeping. No dental issues. No focal weakness. Sweaty at times. Irregular periods. Neuro intact. ENT will do US +/- biopsy soon. Labs. Check for mono, syphilis, CMV, CXR. RTC 3mo Disorder o f thyroid gland 92392590 E07.9 Had a cough since 02/2018, on and off. Check TSH [id number] MD Lalo HURTADO 14 IM [address] [facility] [place] [address] 07/27/2018 12:09:33 07/31/2018 15:49:44 Cervical lymphadenopathy 998822852 R59.0 Had a cough since 02/2018, on [...] second ENT opinion. Upper resp iratory infection 83287117 J06.9 Strept and Flu negative. Exam unremarkab le. Conservati ve management . [id number] MD Lalo Chambers 14 OB [address] [facility] [place] [address] 08/29/2018 11:23:12 08/30/2018 09:21:21 Gynecologic examination 45696679 Z01.419 CBE and pelvic exam performedP t is on her menstrual cycle, will RTC for pap smear Venereal d isease screening 236641535 Z11.3 Anemia 136142343 D64.9 Hemorrhoids 82785704 K64 .9 [id number] MD Lalo HURTADO 14 IM [address] [facility] [place] [address] 09/05/2018 12:08:49 09/06/2018 10:44:23 Acute sinusitis 94343937 J01.90 4 days, worsening coughs, chest congestion . Exam sinusitis. Already on antihistam althea, PPI, Augmentin with ENT. Try home Flonase, add mucinex. Mean corpu scular volume below reference range 074893991 R71.8 MCV still low with Gl Accountant. 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 FeS - taking two tab now. Inc to three - RTC 2mo for ferritin check. [id number] MD Lalo HURTADO 14 IM [address] [facility] [place] [address] 11/13/2018 10:37:12 11/27/2018 11:36:00 Cervical lymphadenopathy 632181739 R59.0 06/2018: Had a cough since 02/2018, [...] done biopsy - result benign. Chronic gastritis 291478 9 K29.50 Followed by GI.Chronic gastritic, H pylori infection - pt was treated. Per pt, her esophagus was also dilated. Hemorrhoids 46990869 K64 .9 Followed by Gen sx - candidate for hemorrhoid ectomy. History of Helicobacter pylori infection 6598800753 4551944 Z86.19 Followed by GI - treated [id number] MD Lalo HURTADO 14 IM [address] [facility] [address] [place] [address] 02/13/2019 10:52:03 02/14/2019 08:35:16 Dizziness 487669732 R42 Thyroid was low with Gl Accountant recently - pt will be rechecked by [...] ID Guarantor Name 09/05/2018 1 [place] [employer] Yessica Young [id number] Yessica Mo 01/08/2019 1 [facility] (MEDICAID HMO) [facility] Yessica Young [id number] Yessica Mo 03/12/2019 2 [place] Yessica Young [id number] Yessica Mo 11/30/2020 1 [place] [id number] Luis Antonio Mo [id number] Yessica Mo 01/19/2015 1 [place] Yessica Young [id number] Yessica Mo 11/03/2015 1 [facility] (MEDICAID HMO) [id number] Yessica Young [id number] Yessica Mo 06/19/2018 1 *SELF PAY* Me [...] pt wants a second opinion Lucero moreno, [place] - [facility] 07/31/2018 15:32:25 08/29/2018 text/html Annual GYNReport ed [...] PMDD Ricardo Ramirez MD Attn: Accounting,[address] [place], [address], [facility] 08/29/2018 16:15:04 09/05/2018 text/html 23yo female is [...] Domestic Partner Domestic Partner Phone Father Name Aircraft Restorer Status 05/06/20 14 1 A Positive Luis Antonio Mo CLOSED Fetus Data First Name Last Name Admitted to NICU Weight (g) Sex Living Outcome Pediatric Complications Fetus ID Race Codes Race Delivery Type CHASITY ESCAMILLA false 4309.12 4 F Full Term 5386 2106-3 White Vaginal Problems Problem Notes Problem Name Start Date End Date Resolution Snomed Code Not e Infective vaginitis 366180938 Maternal care for diminished movements 466062799 Darren Calculation Initial Darren Date Initial Exam [...] Type Weight in lbs Pre/Post Dialysis Refused 203.529919918295 BP Diastolic BP Location Tested BP Systolic BP Type 64 L arm 118 sitting Fetus Heart Rate Present Fetus Movement Comments Flowsheet Date 05/22/2014 Mckinney Score Blood Edema Fundus Height Fundus Units Glucose Ketones Leukocytes Nitrite Labor Signs Protein Cervic Dilation Cervic Effacement Cervic Station neg none none negative neg Type Weight in lbs Pre/Post Dialysis Refused 198.426470034695 BP Diastolic BP Location Tested BP Systolic [...] Type Weight in lbs Pre/Post Dialysis Refused 164.06741214688 BP Diastolic BP Location Tested BP Systolic [...] Type Weight in lbs Pre/Post Dialysis Refused 201.946236792420 BP Diastolic BP Location Tested BP Systolic [...] Type Weight in lbs Pre/Post Dialysis Refused 203.29770885330 BP Diastolic BP Location Tested BP Systolic BP Type 68 128 Fetus Heart Rate Present A 142 Present Fetus Movement A Yes Comments 28 weeks today Flowsheet Date 08/26/2014 Mckinney Score Blood Edema Fundus Height Fundus Units Glucose Ketones Leukocytes Nitrite Labor Signs Protein Cervic Dilation Cervic Effacement Cervic Station 26 cm none Type Weight in lbs Pre/Post Dialysis Refused 203.30300330810 BP Diastolic BP Location Tested BP Systolic BP Type 74 L arm 122 sitting Fetus Heart Rate Present A 146 Present Fetus Movement A Yes Comments Flowsheet Date 09/09/2014 Mckinney Score Blood Edema Fundus Height Fundus Units Glucose Ketones Leukocytes Nitrite Labor Signs Protein Cervic Dilation Cervic Effacement Cervic Station 30 cm none Type Weight in lbs Pre/Post Dialysis Refused 206.197753714531 BP Diastolic BP Location Tested BP Systolic BP Type 60 L arm 120 sitting Fetus Heart Rate Present A 154 Present Fetus Movement A Yes Comments Flowsheet Date 09/23/2014 Mckinney Score Blood Edema Fundus Height Fundus Units Glucose Ketones Leukocytes Nitrite Labor Signs Protein Cervic Dilation Cervic Effacement Cervic Station 32 cm none Type Weight in lbs Pre/Post Dialysis Refused 205.599266969861 BP Diastolic BP Location Tested BP Systolic BP Type 68 110 Fetus Heart Rate Present A 155 Fetus Movement A Yes Comments Flowsheet Date 10/07/2014 Mckinney Score Blood Edema Fundus Height Fundus Units Glucose Ketones Leukocytes Nitrite Labor Signs Protein Cervic Dilation Cervic Effacement Cervic Station none Type Weight in lbs Pre/Post Dialysis Refused 208.932419136681 BP Diastolic BP Location Tested BP Systolic BP Type 78 110 sitting Fetus Heart Rate Present A 154 Fetus Movement A Yes Comments growth scan ordered Flowsheet Date 10/21/2014 Mckinney Score Blood Edema Fundus Height Fundus Units Glucose Ketones Leukocytes Nitrite Labor Signs Protein Cervic Dilation Cervic Effacement Cervic Station 37 cm none Type Weight in lbs Pre/Post Dialysis Refused 213.352385895776 BP Diastolic BP Location Tested BP Systolic BP Type 72 118 sitting Fetus Heart Rate Present A 140 Present Fetus Movement A Yes Comments gbs today. Flowsheet Date 11/04/2014 Mckinney Score Blood Edema Fundus Height Fundus Units Glucose Ketones Leukocytes Nitrite Labor Signs Protein Cervic Dilation Cervic Effacement Cervic Station 37 cm none Type Weight in lbs Pre/Post Dialysis Refused 216.250974425259 BP Diastolic BP Location Tested BP Systolic [...] Type Weight in lbs Pre/Post Dialysis Refused 217.424299708788 BP Diastolic BP Location Tested BP Systolic [...] Type Weight in lbs Pre/Post Dialysis Refused 221.444680273372 BP Diastolic BP Location Tested BP Systolic [...] Type Weight in lbs Pre/Post Dialysis Refused 223.704694414236 BP Diastolic BP Location Tested BP Systolic [...] At Estimated Date of Delivery false Thalassemia (Colombian, Filipino, Mediterranean, Or Background): MCV < 80 false Neural Tube Defect (Meningom yelocele, Spina Bifida, Or Anencephaly) false Congenital Heart Defect false Down Syndrome false Curt-Sachs (eg, Hinduism, Cajun , [place] Citizen[place]) false Yung Disease false Sickle Cell Disease [...] Domestic Partner Domestic Partner Phone Father Name Aircraft Restorer Status 06/17/19 15 1 CLOSED Fetus Data First Name Last Name Admitted to NICU Weight (g) Sex Living Outcome Pediatric Complications Fetus ID Race Codes Race Delivery Type 3515.33 8 F Full Term [address] Vaginal Darren Calculation Initial Darren Date Initial [...]
--- OUTSIDE RECORDS SUMMARY | 2024-11-16 09:17 | XMS_ITS | Continuity of Care Document ---
Author Organization [facility] Address [address] [facility] [place] [address] Phone Care Team Providers Care Canal Superintendent Name Role Phone Robby Torres MD Unavailable [...] Diagnoses Date Provider Providers Copied on Encounter [facility], [address] [facility] [place], [address], [place] tel:[phone] [facility] No Information 1 Brian Bustamante. [address], [place], [place], [address] , [place]. tel:[phone] [facility], [address], [place], [place], [address], [place] tel:[phone] [facility] No Information 0 Brian Bustamante. [address], [place], [place], [address] , [place]. tel:[phone] OFFICE/OUTPA TIENT VISIT, [facility], [address], [place], [place], [address], [place] tel:[phone] [facility] anxiety1 (chief complaint) Generalized Anxiety DisorderHypothyroid ism 0 Brian Bustamante. [address], [place], [place], [address] , [place]. tel:[phone] Referring Provider: Robby Torres [address], [place], [place], [address]. tel:[phone] OFFICE/OUTPA TIENT VISIT, [facility], [address], [place], [place], [address], [place] tel:[phone] [facility] anxiety1 (chief complaint) Generalized Anxiety DisorderGoiter 0 Brian Bustamante. [address], [place], [place], [address] , [place]. tel:[phone] Referring Provider: Robby Torres [address], [place], [place], [address]. tel:[phone] OFFICE/OUTPA TIENT VISIT, [facility], [address], [place], [place], [address], [place] tel:[phone] [facility] thyroid nodule1 (chief complaint) anxiety1 (chief complaint) GoiterGeneralized Anxiety Disorder 0 Brian Menendez [address], [place], [place], [address] , [place]. tel:[phone] Referring Provider: Gissel Banks [address], [place], [place], [address]. tel:[phone] OFFICE/OUTPA TIENT VISIT, [facility], [address], [place], [place], [address], [place] tel:[phone] [facility] anxiety1 (chief complaint) iron1 (chief complaint) thyroid1 (chief complaint) Disorder of iron metabolism, unspecifiedGoiterGe neralized Anxiety Disorder Lonnie-0 0 Brian Bustamante. [address], [place], [place], [address] , [place]. [phone] Referring Provider: Gissel Banks [address], [place], [place], [address]. tel:[phone] OFFICE/OUTPA TIENT VISIT, [facility], [address], [place], [place], [address], [place] tel:[phone] [facility] ankle pain1 (chief complaint) fatigue1 (chief complaint) thyroid1 (chief complaint) anemia1 (chief complaint) Pain in right ankleFatigueAnemiaG oiter 0 Brian Bustamante. [address], [place], [place], [address] , [place]. tel:[phone] Referring Provider: Gissel Banks [address], [place], [place], [address]. tel:[phone] OFFICE/OUTPA TIENT VISIT, [facility], [address], [place], [place], [address], [place] tel:[phone] [facility] rash1 (chief complaint) Allergic contact dermatitis due to plants, except food Aug- 0 Brian Bustamante. [address], [place], [place], [address] , [place]. [phone] Referring Provider: Gissel Banks [address], [place], [place], [address]. tel:[phone] OFFICE/OUTPA TIENT VISIT, [facility], [address], [place], [place], [address], tel:[phone] [facility] Medicine thyroid1 (chief complaint) ferritin1 (chief complaint) IgA (chief complaint) fatigue1 (chief complaint) GoiterDisorder of iron metabolism, unspecifiedVitamin D deficiency, unspecifiedRaised level of immunoglobulinAnemi aH. pylori as the cause of diseases classified elsewhereFatigue 0 Brian Bustamante. [address] [facility] [place], [address] , . tel:[phone] Referring Provider: Gissel Banks [place], [place], [address]. tel:[phone] PREV VISIT, NEW, AGE 18-39 [facility], [address] [place] [address] [place], [place], [address], tel:[phone] [facility] PHysical (chief complaint) Encntr for general adult medical exam w/o abnormal findings 0 Brian Bustamante. [address], [facility] [address], [place], [place], [address] , [place]. tel:[phone] Referring Provider: Robby Torres [address] [place] [address], [id number]. tel:[phone] Family History Family Member Type Diagnosis Age [...] Referral Referred To: Jean Carlos BolañosJoe silva [address] [facility]
[address] [place], [place] [id number] Ordered: Referrals: Allopathic & Osteopathic Physicians : [...] any dysphagia ankle pain1 Pt was at [employer] and she stepped on gravel [...] or swelling . 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
--- OUTSIDE RECORDS SUMMARY | 2024-11-16 09:17 | XMS_ITS | Data Portability ---
Author Organization [facility] Address [address] [place] [address] Care Team Providers Care Automotive Dismantler Name Role Phone [facility] EDUIN HAMMONDS Aircraft Maintenance Technician [phone] JILLIAN LAO Primary Care Provider Assessment Encounter Date Assessment Date Assessment LastModified by Organization Details LastModified Time 11/06/2024 11/06/2024 Pt her for NST - CHTN/TWINS [email or web address] Not available 11/06/2024 17:21:20 11/13/2024 11/13/2024 Patient [...] d. Imaging non-str ess test [id number], [address], [place], [address], 11/15/2024 09:25:55 [place], obstetr ic, follow- up 2024 [address], [address], [place], [address], 11/14/2024 20:41:29 [place], obstetr ic, biophys ical profile + non-str ess test [id number], [address], [place], [address], 11/14/2024 20:41:29 US, obstetr ic, biophys ical profile + non-str ess test [id number], [address], [place], [address], 11/14/2024 20:41:29 [place], obstetr ic, follow- up [id number], [address], [place], [address], 11/14/2024 20:41:29 non-str ess test 2024 025 [email or web address] [address], [address], [place], [address], 11/07/2024 07:45:10 US, obstetr ic, biophys ical profile + non-str ess test 2024 025 [facility], [address], [place], [address], 11/06/2024 17:48:20 US, obstetr ic, biophys ical profile + non-str ess test 2024 025 [facility], [address], [place], [address], 11/06/2024 17:48:32 Medication Orders None recorde d. Patient TargetsNo targets recorded. Patient InstructionsNo instructions recorded. Reason for Referral None Reported. Results Created Date Observation Date Name Description Value Unit Range Abnormal Flag Note LastModifiedBy Organization Detail LastModifiedTime 10/10/19 25 10/09/2024 , ayo holley, limit ed No observ ation record ed. [facility] [address], [place], [address], 10/09/2024 17:38:41 10/10/19 25 10/09/2024 US, ayo tric, follo w-up No observ ation record ed. [facility] [address], [place], [address], 10/09/2024 17:38:53 10/10/19 25 10/09/2024 US, ayo tric, follo w-up No observ ation record ed. [email or web address] [address], [place], [address], 10/14/2024 10:19:44 10/23/19 25 10/22/2024 US, obstmickey tric, follo w-up No observ ation record ed. [email or web address] [place] [address], [place], [address], 10/22/2024 17:16:15 10/23/1910/22/2024 US, obste tric, follo w-up No observ ation record ed. [email or web address] [place] [address], [place], [address], 10/22/2024 17:16:31 10/23/19 25 10/22/2024 US, obstmickey holley, follo w-up No observ ation record ed. LANAROSAILA [address], [place], [address], 10/29/2024 21:52:03 10/27/19 25 10/23/2024 non-s tress test No observ ation record ed. [email or web address] [place] [address], [place], [address], 10/26/2024 08:57:06 10/29/19 25 10/23/2024 non-s tress test No observ ation record ed. [email or web address] [place] [address], [place], [address], 10/28/2024 11:44:35 10/31/19 25 10/30/2024 US, ayo holley, bioph ysica l profi le + non-s tress test No observ ation record ed. [email or web address] [place] [address], [place], [address], 10/30/2024 13:28:58 10/31/19 25 10/30/2024 US, ayo holley, bioph ysica l profi le + non-s tress test No observ ation record ed. [email or web address] [place] [address], [place], [address], 10/30/2024 13:29:11 10/31/19 25 10/30/2024 US, obste tric, follo w-up No observ ation record ed. [email or web address] [address], [place], [address], 10/31/2024 18:00:31 11/07/19 25 11/06/2024 US, obste tric, bioph ysica l profi le + non-s tress test No observ ation record ed. [email or web address] [place] [address], [place], [address], 11/06/2024 17:48:20 11/07/19 25 11/06/2024 US, obste tric, bioph ysica l profi le + non-s tress test No observ ation record ed. [email or web address] [place] [address], [place], [address], 11/06/2024 17:48:32 11/07/19 25 11/06/2024 non-s tress test No observ ation record ed. [place] [address], [place], [address], 11/06/2024 17:22:40 11/07/19 25 11/06/2024 US, obste tric, bioph ysica l profi le + non-s tress test No observ ation record ed. [email or web address] [address], [place], [address], 11/11/2024 12:03:01 11/10/19 25 11/09/2024 imagi ng/di agnos tic resul t No observ ation record ed. [address], [place], [address], 11/11/2024 17:42:12 11/13/19 25 11/12/2024 non-s tress test No observ ation record ed. [email or web address] [place] [address], [place], [address], 11/15/2024 21:56:01 11/14/1911/13/2024 non-s tress test No observ ation record ed. [place] [address], [place], [address], 11/14/2024 14:45:58 11/14/1911/13/2024 US, obste tric, follo w-up No observ ation record ed. [email or web address] [place] [address], [place], [address], 11/13/2024 18:14:47 11/14/19 25 11/13/2024 US, obste tric, bioph ysica l profi le + non-s tress test No observ ation record ed. [email or web address] [place] [address], [place], [address], 11/13/2024 18:14:56 11/14/1911/13/2024 US, obste tric, bioph ysica l profi le + non-s tress test No observ ation record ed. [email or web address] [place] [address], [place], [address], 11/13/2024 18:15:06 11/14/1911/13/2024 US, obste tric, follo w-up No observ ation record ed. [email or web address] [place] [address], [place], [address], 11/13/2024 18:15:15 11/14/1911/13/2024 non-s tress test No observ ation record ed. [email or web address] [place] [address], [place], [address], 11/13/2024 15:40:45 11/14/19 25 11/13/2024 US, obste tric, follo w-up No observ ation record ed. LANA [address], [place], [address], 11/14/2024 16:09:55 Result Notes None recorded. Problems Name Problem SNOMED Code Status Onset Date Resolution Date Notes Provider Name and Address Organization Details Recorded Time Pregnanc y 38216098 Completed 202106/09/2022 Kenyetta Solano null, [facility] 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 3 15:14:45 Hypothyr oidism 77137969 Completed Elikristin Chaveznstieh l [facility] 3 15:14:45 Antenata l care: history of infertil ity 895370203 Completed Eli Carlosnenstieh l [facility], [facility] 3 15:14:46 Group B Streptoc occus carrier 1144662979 103 Completed bacteriu berta Crane Scottnstieh l [facility], [facility] 3 15:14:45 Maternal obesity complica ting pregnanc y, childbir th and the puerperi um, antepart um 6869845750 07 Completed BMI 39- ante testing at 37w Elikristin Chaveznstieh l [facility], [facility] 3 15:14:46 Chronic hyperten allison in obstetri c context 3879572 Completed procardi a , baseline labs, ASA Eli Scottnstieh l [facility] 3 15:14:46 Placenta circumva llata 0988008 Completed Serial growth u/s Eli Chaveznstieh l null, [facility] 3 15:14:45 Pre-ecla mpsia 175357953 Completed Eli Gonzalezharveyanniejoselynluisa alvarado null, [facility] 3 15:14:45 Abnormal cervical Papanico laou smear 674259560 Active 2023 3 lgsil HPV high risk 1 ascus HPV high risk Kenyetta Solano null, [facility] 4 11:59:57 Herpes simplex 20587724 Active 2024 Kenyetta Solano null, [facility] 5 16:40:53 Human papillom a virus infectio n 624725357 Active 2024 Kenyetta Solano null, [facility] 5 16:40:59 Endometr iosis (clinica l) 613460792 Active 2024 Kenyetta Solano null, [facility] 5 16:41:22 Pregnanc y 37757556 Active 2024 Kenyetta Solano [facility], [facility] 5 16:03:06 Twin pregnanc y 54909051 Active 38 wk delivery antenata l testing @ 32wks per [facility] Schedule d rpt 08/27 ONLY Tabatha Flanagan null, [facility] 5 12:20:16 Antenata l care: history of infertil ity 425511605 Active Peter Bryant, [address], [place], [address], [place] [facility] 5 13:48:37 Past pregnanc y history of pre-ecla mpsia 2032759948 99658 Active bASA x2 Tabatha Flanagan null, [facility] 5 17:10:40 Large for gestatio n age fetus 358913449 Active less then 30 sec shoulder dystocia Peter Bryant CNM [address], [place], [address], [place] [facility] 5 13:51:09 Past pregnanc y history of shoulder dystocia 983999071 Active Peter Bryant CNM [address], [place], [address], [facility] 5 13:52:04 Chronic hyperten allison in obstetri c context 1212981 Active Peter Bryant CNM [address], [place], [address], [facility] 5 13:52:55 Palpitat ions 79274669 Active Holter monitor faxed to [facility] nt Cardiolo gy 07/29 Tabatha Flanagan null, [facility] 5 14:05:23 Palpitat ions 25962029 Active Holter monitor faxed to [facility] nt Cardiolo gy 3 Tbaatha Green null, [facility] 5 14:05:23 Migraine 83889956 Active magnesiu m, Excedrin tension, sumatrip tatum Tabatha Green null, [facility] 5 17:11:50 Migraine 15197340 Active magnesiu m, Excedrin tension, sumatrip tatum Tabatha Green null, [facility] 5 17:11:50 Glucose toleranc e test outside referenc e range 883940275 Active 2024 5 checking blood sugars for 2 week instead for doing 3 hour Kenyetta Solano null, [facility] 17:53:21 Glucose toleranc e test outside referenc e range 624081815 Active 2024 5 checking blood sugars for 2 week instead for doing 3 hour Kenyetta Solano tiffanie, [facility] 5 17:53:21 Gestatio nal diabetes mellitus 71891208 Active 2024 Kenyetta moreno, [facility] 5 11:47:25 Gestatio nal diabetes mellitus 55775805 Active 2024 Kenyetta moreno, [facility] 5 11:47:25 Finding of general energy 769270736 Completed 201807/28/2020 Fatigue; Recorded Elsewher e: No Locat ion: Chaya arevalo [facility] Administrative Assistant mark: N Practi ce ID: 0001 Emmanuel lable Time: 10:45:00 AM Messi Garcia MD [address], [place], [address], [facility] 15:00:00 Acute vaginiti s 80942396 Completed 201807/28/2020 Vaginiti s;Record ed Elsewher e: No Locat ion: Chaya arevalo [facility] Administrative Assistant mark: N Practi ce ID: 0001 Emmanuel lable Time: 10:45:00 AM Messi Garcia MD [address], [place], [address], [facility] 1 15:00:04 Removal of intraute rine device Completed 201807/28/2020 Encounte r for removal of IUD;Earl rded Elsewher e: No Locat ion: Chaya arevalo [facility] Administrative Assistant mark: N Practi ce ID: 0001 Emmanuel lable Time: 10:45:00 AM Messi Garcia MD [address], [place], [address], [facility] 1 15:00:08 Problem Notes None recorded. [...] Peter Bryant, DUNIA [address], [place], [address], [facility] 06/15/2022 16:59:00 023 Colposcopy completed [facility] [...] [facility] 08/19/2020 14:04:12 020 completed [facility] 10/01/2020 16:23:53 020 Colonoscopy completed [facility] 01/22/2021 10:59:09 019 procedure on neck completed [facility] 12/25/2019 11:25:51 019 hemorrhoidectomy completed [facility] 12/25/2019 11:24:57 016 cholecystectomy completed [facility] 07/16/2021 17:21:15 010 Appendectomy completed [facility] 12/25/2019 11:24:44 Imaging Results None recorded. Procedure Notes None recorded. Medical Equipment None Reported. Allergies Allergen ID Allergen Name Allergen Category Reaction Reaction Severity Criticality Documentation Date Start Date Code Code System Note Provider Name and Address Organization Details Recorded Time 59991 prednison e medicatio n hives Not available Not available 07/03/2024 8640 RxNorm Peter Bryant CNM [address], [place], [address] [place] [address], P.C[facility] 5 09:52:22 Medications Name Sig Start [...] Pregnyl 10,000 unit intramusc ular solution Inject 48236 units every day by intramus cular route [...] MOUTH EVERY 12 HOURS FOR 7 DAYS 02/08 /2023 completed Not Available Not Available Not Available [...] Prescrib ed Ban e: Yes Loca tion: [facility] M odify By: [email or web address] z Encoun ter DateTime [...] VAIL INJECTIO N INTO RIGHT HIP LOT [id number] EXP 12/2021 Not Available Not Available Not [...] Address Organization Details Last Updated DateTime 11/06/2024 979354.58481 g 133/87 mm[Hg] Sun Aquinoer [facility] 11/06/2024 15:35:27 Date Recorded Body weight Systolic And Diastolic Provider Name and Address Organization Details Last Updated DateTime 11/13/2024 260431.55404 g 127/89 mm[Hg] Sun Sadiq [facility] 11/13/2024 15:38:06 Social History Question Answer Notes LastModified by Organizat ion Details LastModified Time Tobacco Smoking Status Never Smoker Althea Holguin tiffanie, [facility] 06/15/2022 15:31:26 Do You Have An Advance Directive? No Information n ot available 07/28/2020 If You Are , What Was Your Level Of Alcohol Consumption Prior To ? None [email or web address] Information not available 06/15/2022 Are You Blind [...] Type Of Diet Are You Following? REGULAR [email or web address] Information n ot available 08/19/2020 What Is The Highest Grade Or Level Of School You Have Completed Or The Highest Degree You Have Received? [id number] Information not available 07/28/2020 Are There Any Guns Present In Your Home? No Information not available 07/28/2020 What Was The Date Of Your Most Recent Tobacco Screening? 10/23/2024 [email or web address] Information not available 10/23/2024 Have You Ever Been Counseled For Unhealthy Alcohol Use? No [email or web address] Information not available 06/15/2022 Do You Use Protection During Sex? No Information not available 07/28/2020 Do You Use Your Seat Belt Or Car Seat Routinely? Yes Information not available 07/28/2020 Do You Have Smoke And Carbon Monoxide Detectors In Your Home? Yes Information not available 07/28/2020 How Much Tobacco Do You Smoke? No [email or web address] Information not available 12/25/2019 Do You Use Sunscreen Routinely? Yes Information not available 07/28/2020 Have You Used IV Drugs? No Information not available 07/28/2020 Do You Have Difficulty Walking Or Climbing Stairs? No [email or web address] Information not available 06/15/2022 Sex: Unknown Functional Status Question Answer Note LastModified by Organizat ion Details LastModified Time Do you use any illicit or recreational drugs? No Information not available 07/28/2020 Do you or have you ever used any other forms of tobacco or nicotine? No [email or web address] Information not available 06/15/2022 What is your level of alcohol consumption? Occasional Information not available 12/25/2019 Do you or have you ever used smokeless tobacco? Never used smokeless tobacco [email or web address] Information not available 06/15/2022 Are you able to walk? YESWOREST [email or web address] Information not available 08/19/2020 Are you able to care for yourself? 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 No [email or web address] Information not available 06/15/2022 Do you or have you ever used e-cigarettes or vape? Never used electronic cigarettes Information not available 06/15/2022 What is your exercise level? Occasional [email or web address] Information not available 12/25/2019 Mental Status Question Answer Note LastModified by Organization D etails LastModified Time Do you feel stressed (tense, restless, nervous, or anxious, or unable to sleep at night)? [id number] [email or web address] Information not available 08/19/2020 Family History Relationship Description Onset Age of this Age Resolved Age Notes LastModified by Organization Details LastModified Time Maternal Grandmother Disorder of thyroid gland [email or web address] Not available 01/26 16:14:56 Mother Female infertility Not available 08/2024 13:51:15 Mother Disorder of thyroid gland [email or web address] Not available 01/26 16:14:56 Father Malignant tumor of pancreas [email or web address] Not available 2024 13:51:15 Brother Malignant neoplasm of prostate [email or web address] Not available 2024 13:51:15 Paternal Grandmother Malignant tumor of breast [email or web address] Not available 01/26 16:14:56 Paternal Grandmother Malignant neoplasm of lung [email or web address] Not available 01/26 16:14:56 Medical History Condition Response Allergies (Food, seasonal, environmental ) N Other Y Drug/Latex Allergies/Reactions N Blood Transfusion N Breast Cancer N Dermatologic Disorders N [...] SNOMED-CT Code Diagnosis ICD10 Code Diagnosis Note [id number] Peter Bryant CNM [place] [address],[place] [address] 12/25/2019 10:57:08 12/25/2019 12:38:39 Breast infection 763591280 N61.0 Trying to conceive 63476 9001 Z31.9 [id number] Messi Garcia MD [place] [address],[place] [address] 06/30/2020 12:07:39 06/30/2020 12:55:49 Pain in pelvis 29505061 R10.2 [id number] Messi Garcia MD [place] [address],[place] [address] 07/02/2020 12:31:33 07/02/2020 16:54:32 Pain in pelvis 62942363 R10.2 This patient is a 25-year-ol d [...] informed consent process. To check fallopian tubes. [id number] Messi Garcia MD [place] [address],[place] [address] 07/23/2020 10:07:53 07/23/2020 10:09:56 [id number] Messi Garcia MD [place] [address],[place] [address] 07/28/2020 13:53:59 07/28/2020 15:27:02 Chest pain 62662078 R07.9 this patient is 25-year-ol d female [...] this patient s visit, including available hand nsh teacher upon arrive, temperatur e check and being asked a series of screening questions. All staff wore face coverings during this encounter, as well as provided additional cleaning and sanitizing of all surfaces, including countertop s, pens, chairs, door handles, light switches, etc, prior to and following the patient s visit. [id number] Messi Garcia MD [place] [address] [address] 08/04/2020 14:07:07 08/04/2020 14:50:37 Abnormal uterine bleeding 2924661926 9100 N93.9 this patient is a 25-year-ol [...] ovulation induction [place]. [id number] Peter Bryant CNM [place] [address] [address] 08/19/2020 13:46:09 08/19/2020 15:50:34 Trying to conceive 298931530 Z31.9 [id number] Messi Garcia MD [place] [address],[place] [address] 09/02/2020 11:05:51 09/02/2020 12:44:09 Female infertility 3484370 N97.9 [id number] Peter Bryant [facility] [address],[place] [address] 09/04/2020 08:09:36 09/04/2020 09:29:50 Artificial insemination 38113973 Z31.83 [id number] Peter Bryant [facility] [address],[place] [address] 09/03/2020 18:20:49 09/03/2020 22:54:04 Trying to conceive 746055100 Z31.9 [id number] Messi Garcia MD [place] [address],[place] [address] 09/09/2020 17:51:09 09/09/2020 18:07:37 Pain in pelvis 00780562 R10.2 This patient is a 25-year-ol d [...] informed consent process. To check fallopian tubes. [id number] Messi Garcia MD [place] [address],[place] [address] 09/22/2020 16:45:48 09/22/2020 17:17:04 Pain in pelvis 85112799 R10.2 This patient is a 25-year-ol d [...] informed consent process. To check fallopian tubes. [id number] Messi Garcia MD [place] [address],[place] [address] 10/01/2020 14:59:50 10/01/2020 15:16:34 Female infertility 4342599 N97.9 [id number] Peter Bryant [facility] [address],[place] [address] 10/01/2020 16:21:54 10/01/2020 16:27:38 Trying to conceive 971631267 Z31.9 [id number] Peter Bryant [facility] [address],[place] [address] 10/02/2020 08:19:49 10/02/2020 09:46:38 Artificial insemination 87786425 Z31.83 [id number] Messi Garcia MD [place] [address],[place] [address] 10/14/2020 15:52:51 10/14/2020 16:51:20 Pain in pelvis 68048833 R10.2 This patient is a 25-year-ol d [...] informed consent process. To check fallopian tubes. [id number] Peter Bryant CNM [place] [address],[place] [address] 10/21/2020 17:06:20 10/21/2020 17:33:05 Hypothyroidism 26431367 E03.9 check labs, will adjust meds if needed [id number] Messi Garcia MD [place] [address] [address] 11/30/2020 13:48:01 11/30/2020 13:52:51 Pain in pelvis 18380022 R10.2 This patient is a 25-year-ol d [...] informed consent process. To check fallopian tubes. [id number] Messi Garcia MD [place] [address] [address] 12/01/2020 14:00:56 12/01/2020 15:31:30 Pain in pelvis 13570177 R10.2 this patient is a 25-year-ol d [...] face-to-fa ce discussing this very complex topic. [id number] Peter Bryant CNM [place] [address] [address] 01/22/2021 09:15:38 01/22/2021 10:35:42 Female infertility 0118739 N97.9 Gynecologi c examination 87219080 Z01.419 [id number] Messi Garcia MD [place] [address],[place] [address] 02/09/2021 09:19:46 02/09/2021 10:04:48 Female infertility 1335608 N97.9 [id number] Peter Bryant [facility] [address],[place] [address] 02/09/2021 14:29:50 02/09/2021 16:50:58 Trying to conceive 290456388 Z31.9 [id number] Peter Bryant [facility] [address],[place] [address] 02/10/2021 09:41:42 02/10/2021 10:12:15 Female infertility 1601867 N97.9 Artificial insemination 57019209 Z31.83 [id number] Messi Garcia MD [place] [address],[place] [address] 04/28/2021 14:43:43 04/28/2021 15:19:59 Female infertility 7679372 N97.9 [id number] Peter Bryant [facility] [address],[place] [address] 04/28/2021 18:59:10 04/29/2021 09:31:07 Trying to conceive 301247238 Z31.9 [id number] Peter Bryant [facility] [address],[place] [address] 04/29/2021 09:31:15 04/29/2021 10:19:12 Artificial insemination 47786647 Z31.83 [id number] [facility] [address],[place] [address] 05/25/2021 11:53:11 05/25/2021 16:54:31 Reduced libido 7318551 R68.82 Today we discussed trial of Wellbutrin [...] this patient s visit, including available hand nsh teacher upon arrive, temperatur e check and being asked a series of screening questions. All staff wore face coverings during this encounter, as well as provided additional cleaning and sanitizing of all surfaces, including countertop s, pens, chairs, door handles, light switches, etc, prior to and following the patient s visit. [id number] Messi Garcia MD [place] [address] [address] 06/22/2021 14:38:59 06/23/2021 09:16:44 Body mass index 30+ - obesity 263383041 Z68.37 This patient is a 26-year-ol d [...] on the dietitian schedule. Gynecologi c examination 66740819 Z01.419 Abnormal u terine bleeding 1431187599 9100 N93.9 [id number] Messi Garcia MD [place] [address],[place] [address] 06/25/2021 09:04:11 06/25/2021 09:23:27 Female infertility 0628329 N97.9 [id number] Peter Bryant [facility] [address],[place] [address] 06/25/2021 18:38:25 06/26/2021 09:09:27 Trying to conceive [id number] Z31.9 [id number] Peter Bryant [facility] [address],[place] [address] 06/26/2021 09:13:57 07/01/2021 15:54:18 Artificial insemination [id number] Z31.83 [id number] Messi Garcia MD [facility] [address],[place] [address] 07/27/2021 17:11:55 07/27/2021 18:06:16 Uncertain viability of 687101970 O36.80X0 Z3A.01 [id number] Messi Garcia MD [facility] [address],[place] [address] 1 08/05/2021 09:17:05 08/05/2021 10:16:25 Abdominal pain in early 121672598 Z33.1 Z3A.01 [id number] Messi Garcia MD [facility] [address],[place] [address] 1 08/18/2021 10:17:54 08/18/2021 11:20:00 [id number] [facility] [address],[place] [address] 08/18/2021 10:18:19 08/19/2021 12:30:57 Amenorrhea 36489248 Z31.89 Z31.83 [id number] Pretty Cotton MD [facility] [address],[place] [address] 1 09/10/2021 14:50:18 09/10/2021 15:34:33 screening 591753432 Z36.82 [id number] Pertty Cotton MD [facility] [address],[place] [address] 09/10/2021 14:50:57 09/13/2021 15:22:01 Routine care 929956268 Z34.91 care: history of infertility 058901425 O09.[address] reptococcus carrier 9926894278 103 Z22.330 Hypothyroidism 76142879 E03.9 Maternal o besity complicating , childbirth and the puerperium, antepartum 3272114063 07 O99.211 [id number] Pretty Cotton MD [facility] [address],[place] [address] 1 09/27/2021 17:43:48 09/28/2021 10:23:00 Chronic hypertension complicating AND/OR reason for care during 69271474 O16.9 [id number] Pretty Cotton MD [facility] [address],[place] [address] 1 10/08/2021 14:49:27 10/08/2021 16:16:40 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 2125167 O16.9 care: history of infertility 516499394 O09.01 Hypothyroidism 88326880 E03.9 [id number] Messi Garcia MD [facility] [address],[place] [address] 11/03/2021 16:29:49 11/03/2021 18:37:35 screening 419591468 Z36.3 Z3A.20 [id number] [facility] [address],[place] [address] 1 11/03/2021 16:30:15 11/03/2021 18:37:10 Routine care 982525284 Z34.91 Anxiety 18055672 F41.9 [id number] Messi Garcia MD [facility] [address],[place] [address] 12/03/2021 15:10:07 12/03/2021 16:20:49 Hypothyroidism 81499355 E03.9 [id number] MD Rhina Zheng [address],[place] [address] 1 12/03/2021 15:10:54 12/03/2021 17:08:45 Placenta circumvallata 6439490 O43.112 Z36.2 Z3A.24 [id number] MD Rhina Zheng [address],[place] [address] 12/29/2021 15:21:10 12/29/2021 16:01:38 Placenta circumvallata 6942861 O43.113 O10.013 O99.213 Z3A.28 [id number] Peter Bryant [facility] [address],[place] [address] 1 12/29/2021 15:22:44 12/29/2021 17:01:50 Routine care 791755217 Z34.91 - induced hypertension 88113619 O13.9 [id number] Messi Garcia MD [facility] [address],[place] [address] 01/13/2022 13:47:29 01/13/2022 14:39:17 Medical examination for suspected condition 544394170 Z03.79 [id number] Messi Garcia MD [facility] [address],[place] [address] 1 01/13/2022 13:47:50 01/13/2022 15:53:18 Routine care 415500776 Z34.83 [id number] MD Rhina Sanchez [address],[place] [address] 01/17/2022 16:24:29 01/17/2022 18:16:59 Threatened premature labor - not delivered 282130446 O47.9 [id number] Pretty Cotton MD [facility] [address],[place] [address] 1 01/17/2022 16:35:15 01/19/2022 15:28:55 Threatened premature labor - not delivered 754914068 O47.9 [id number] Messi Garcia MD [facility] [address],[place] [address] 1 01/26/2022 14:52:57 01/26/2022 15:27:45 Chronic hypertension complicating AND/OR reason for care during 91685210 O16.9 [id number] Messi Garcia MD [facility] [address],[place] [address] 1 01/26/2022 14:54:57 01/26/2022 16:22:26 Placenta circumvallata 1037485 O43.113 Z3A.32 O10.013 [id number] [facility] [address],[place] [address] 01/26/2022 14:55:32 01/26/2022 16:39:21 Routine care 819352108 Z34.91 [id number] Messi Garcia MD [facility] [address],[place] [address] 1 02/02/2022 16:59:59 02/02/2022 17:58:36 Maternal obesity complicating , childbirth and the puerperium, antepartum 2185939587 07 O99.213 [id number] Messi Garcia MD [facility] [address],[place] [address] 1 02/02/2022 17:00:19 02/02/2022 18:17:03 Chronic hypertension complicating AND/OR reason for care during 45731082 O10.013 Z3A.33 [id number] [facility] [address],[place] [address] 1 02/02/2022 17:00:45 02/02/2022 18:50:24 Routine care 982478980 Z34.91 [id number] Messi Garcia MD [facility] [address],[place] [address] 1 02/09/2022 16:53:15 02/09/2022 17:49:24 Maternal obesity complicating , childbirth and the puerperium, antepartum 0645344030 07 O99.213 [id number] Messi Garcia MD [facility] [address],[place] [address] 1 02/09/2022 16:53:36 02/09/2022 18:15:36 Chronic hypertension complicating AND/OR reason for care during 19077657 O10.013 O99.213 Z3A.34 [id number] Peter Bryant [facility] [address],[place] [address] 1 02/09/2022 16:54:04 02/09/2022 18:25:27 Routine care 602621120 Z34.91 [id number] Messi Garcia MD [facility] [address],[place] [address] 1 02/16/2022 17:00:10 02/16/2022 17:56:48 Chronic hypertension complicating AND/OR reason for care during 01865436 O10.013 O99.213 Z3A.34 [id number] Messi Garcia MD [facility] [address],[place] [address] 1 02/16/2022 17:00:39 02/16/2022 18:07:43 Chronic hypertension complicating AND/OR reason for care during 40426540 O10.013 Z3A.35 O99.213 [id number] Peter Bryant [facility] [address],[place] [address] 1 02/16/2022 17:01:03 02/16/2022 18:20:17 Routine care 142478540 Z34.91 [id number] Messi Garcia MD [facility] [address],[place] [address] 1 02/18/2022 15:23:24 02/18/2022 15:53:12 Reduced movement 160219772 O36.8199 [id number] [facility] [address],[place] [address] 1 02/23/2022 16:45:10 02/23/2022 18:18:35 Routine care 424061306 Z34.91 Large for gestation age fetus 551110360 O36.63X0 [id number] Messi Garcia MD [facility] [address],[place] [address] 1 02/23/2022 16:42:55 02/23/2022 17:12:22 Chronic hypertension complicating AND/OR reason for care during 20020151 O10.013 Z3A.35 O99.213 [id number] Messi Garcia MD [facility] [address],[place] [address] 1 02/23/2022 16:43:28 02/23/2022 17:56:35 Chronic hypertension complicating AND/OR reason for care during 62893062 O10.013 O99.213 Z3A.36 [id number] Pretty Cotton MD [facility] [address],[place] [address] 1 03/16/2022 14:15:55 03/17/2022 16:13:50 Pain in pelvis 45324080 R10.2 [id number] Messi Garcia MD [facility] [address],[place] [address] 1 03/17/2022 13:34:56 03/17/2022 14:02:57 Pain in pelvis 97634608 R10.2 this patient is a 25-year-ol d [...] face-to-fa ce discussing this very complex topic. [id number] Messi Garcia MD [facility] [address],[place] [address] 1 03/17/2022 13:35:31 03/18/2022 13:49:15 Pain in pelvis 05801610 R10.2 patient is a 27-year-ol d female [...] We spent over 20 minutes face-to-fa ce. 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 restart lexapro, to ed if any suicidal thoughts, reviewed se risks and benefits f/u 6 week med check if unavailabl e can do by phone Low grade squamous intraepithelial lesion on cervical Papanicolaou smear 5784633264 9105 R87.612 f/u pending pathology [id number] Peter Bryant CNM [facility] [address],[place] [address] 1 08/16/2023 11:38:58 08/16/2023 13:55:15 Pain in pelvis 49378437 R10.2 also start pelvic floor pT Gynecologi c examination 21184276 Z01.419 [id number] Messi Garcia MD [facility] [address],[place] [address] 1 08/22/2023 11:28:17 08/22/2023 12:06:29 Pain in pelvis 56925915 R10.2 patient is a 27-year-ol d female [...] We spent over 20 minutes face-to-fa ce. [id number] Messi Garcia MD [facility] [address],[place] [address] 04/23/2024 09:16:05 04/23/2024 10:09:58 screening 708303574 Z36.87 O30.049 Z3A.01 [id number] Messi Garcia MD [facility] [address],[place] [address] 1 05/10/2024 15:16:46 05/10/2024 16:01:31 [id number] Peter Bryant CNM [facility] [address],[place] [address] 1 05/10/2024 15:17:03 05/10/2024 16:51:44 Amenorrhea 53678931 Z31.89 Z31.83 Dichorioni c diamniotic twin 206346974 O30.049 reviewed US plan us at 12 weeksnipt at 10 weeks with labsawait pap until pp visitrevie wed precaution s and educationh x preeclamps ia without severe features last [id number] Messi Garcia MD [facility] [address] [address] 1 05/21/2024 11:09:17 05/21/2024 12:05:12 Threatened miscarriage 87468323 O20.0 O30.041 Z3A.09 [id number] Messi Garcia MD [facility] [address],[place] [address] 1 05/23/2024 17:26:08 05/24/2024 10:31:39 Threatened miscarriage 97632390 O20.0 O30.041 Z3A.09 [id number] Messi Garcia MD [facility] [address],[place] [address] 1 05/23/2024 18:31:17 05/24/2024 10:33:13 Pain in pelvis 24737789 R10.2 this patient is a 29-year-ol d [...] is to contact us if pain worsens. [id number] Messi Garcia MD [facility] [address] [address] 1 05/29/2024 10:21:34 05/29/2024 11:12:31 condition affecting obstetrical care of mother 847513727 O36.8910 Z3A.10 [id number] Messi Garcia MD [facility] [address] [address] 1 06/03/2024 16:41:37 06/04/2024 14:32:45 screening 979307984 Z36.82 Z3A.11 [id number] Peter Bryant CNM [facility] [address],[place] [address] 1 06/05/2024 14:45:02 06/06/2024 16:44:18 Nausea and vomiting 94234939 R11.2 Migraine 35589158 G43.90 9 Routine an tenatal care 664478930 Z34.91 Twin 65840301 O30.009 [id number] Messi Garcia MD [facility] [address],[place] [address] 06/12/2024 17:23:11 06/12/2024 18:08:31 Medical examination for suspected condition 929815944 Z03.72 Z3A.12 [id number] Messi Garcia MD [facility] [address],[place] [address] 1 07/01/2024 16:17:41 07/01/2024 17:36:13 Dichorionic diamniotic twin 476723863 O30.042 Z3A.15 [id number] Peter Bryant CNM [facility] [address],[place] [address] 1 07/03/2024 09:17:02 07/03/2024 09:55:31 Gestation period, 15 weeks 4665933 Z3A.15 [id number] ALEC WILKINSON MD [facility] [address],[place] [address] 07/08/2024 10:41:29 07/08/2024 11:38:56 Pruritic rash 50883144 L28.2 Dichorioni c diamniotic twin 693419194 O30.049 Chronic hy pertension complicating AND/OR reason for care during 51795345 O16.9 Gestation period, 16 weeks 05199278 Z3A.16 [id number] Messi Garcia MD [facility] [address],[place] [address] 1 07/12/2024 10:38:28 07/12/2024 11:50:01 [id number] Peter Bryant CNM [facility] [address],[place] [address] 1 07/31/2024 16:35:21 08/01/2024 09:45:58 Gestation period, 19 weeks 58174755 Z3A.19 Dichorioni c diamniotic twin 424667223 O30.049 Gastroesop hageal reflux disease 653991757 K21.9 [id number] Peter Bryant [facility] [address],[place] [address] 08/09/2024 12:12:22 08/09/2024 14:11:25 Pain in pelvis 42803454 R10.2 start physical therapy [id number] Messi Garcia MD [facility] [address],[place] [address] 1 08/22/2024 12:06:07 08/22/2024 13:36:01 Dichorionic diamniotic twin 125682802 O30.042 O36.8120 Z3A.23 [id number] Peter Bryant [facility] [address],[place] [address] 08/28/2024 14:16:16 08/30/2024 10:02:02 [id number] Peter Bryant [facility] [address],[place] [address] 1 08/29/2024 09:57:22 08/30/2024 10:26:31 Gestation period, 24 weeks 952666737 Z3A.24 [id number] Messi Garcia MD [facility] [address],[place] [address] 09/18/2024 11:30:12 09/18/2024 12:33:22 Dichorionic diamniotic twin 206075885 O30.042 O99.891 Z3A.26 [id number] Peter Bryant [facility] [address],[place] [address] 1 09/27/2024 14:05:42 09/27/2024 14:47:06 Gestation period, 28 weeks 95209099 Z3A.28 [id number] Messi Garcia MD [facility] [address],[place] [address] 1 10/09/2024 13:51:09 10/09/2024 15:10:27 Dichorionic diamniotic twin 533037934 O30.043 O32.1XX2 Z36.2 Z3A.29 [id number] Peter Bryant [facility] [address],[place] [address] 10/09/2024 13:51:24 10/09/2024 16:46:13 Gestation period, 29 weeks 05102969 Z3A.29 [id number] Messi Garcia MD [facility] [address],[place] [address] 1 10/22/2024 11:49:29 10/22/2024 13:06:50 Dichorionic diamniotic twin 950223019 O30.043 O24.410 O13.3 Z3A.31 [id number] Peter Bryant [facility] [address],[place] [address] 1 10/23/2024 14:57:19 10/27/2024 19:34:15 Twin 22694465 O30.009 [id number] [facility] [address],[place] [address] 10/23/2024 14:57:44 10/23/2024 16:42:04 Gestation period, 31 weeks 51348586 Z3A.31 [id number] Messi Garcia MD [facility] [address],[place] [address] 1 10/30/2024 11:49:15 10/30/2024 12:53:32 Dichorionic diamniotic twin 376300945 O30.043 O24.410 O16.3 Z3A.32 [id number] Peter Bryant [facility] [address],[place] [address] 1 10/30/2024 11:49:41 10/30/2024 13:44:54 Gestation period, 32 weeks 8486748 Z3A.32 [id number] Messi Garcia MD [facility] [address] 1 11/06/2024 14:02:15 11/06/2024 15:08:32 Dichorionic diamniotic twin 515491433 O30.043 O24.414 O24.410 [id number] ALEC WILKINSON MD [facility] [address],[place] [address] 1 11/06/2024 14:02:26 11/06/2024 17:33:51 Chronic hypertension complicating AND/OR reason for care during 15375393 O10.919 [id number] Peter Bryant [facility] [address],[place] [address] 1 11/06/2024 14:02:37 11/06/2024 16:26:16 Gestation period, 33 weeks 68083824 Z3A.33 Dichorioni c diamniotic twin 805377364 O30.043 [id number] Messi Garcia MD [facility] [address],[place] [address] 1 11/13/2024 13:58:59 11/13/2024 15:10:18 Dichorionic diamniotic twin 746234213 O30.043 O24.410 O16.3 O99.213 Z3A.34 [id number] [facility] [address],[place] [address] 11/13/2024 13:59:12 11/13/2024 15:41:29 Chronic hypertension complicating AND/OR reason for care during 83166764 O10.919 [id number] [facility] [address],[place] [address] 11/13/2024 13:59:25 11/13/2024 16:05:11 Gestation period, 34 weeks 83432285 Z3A.34 Health Concerns Section Related Observation LastModified by Organization Detai ls LastModified Time None Recorded Concern Status LastModified by Organization Details LastModified Time None Recorded Advance Directives Directive N: Payers Insurance Date Sequence Insurance Name Policy Number Policy Steele Covered Member ID Steele Member ID Guarantor Name 05/10/2024 2 [facility] Chjc Xbb [id number] Yessica M Corzine 05/18/2021 1 [facility] [id number] Luis Antonio A Corzine [id number] Yessica M Corzine 06/15/2022 *SELF PAY* Me kartik M Corzine 08/31/2020 2 [facility] Luis Antonio Corzine [id number] Yessica M Corzine 08/31/2020 3 [facility] Jospeh Corzine [id number] Yessica M Corzine 09/04/2020 2 [facility] Luis Antonio Corzine [id number] Yessica M Corzine 09/23/2020 2 [facility] Jospeph Corzine [id number] Yessica M Corzine 11/11/2024 1 [facility] [id number] Luis Antonio A Corzine [id number] Yessica M Corzine 05/10/2024 3 [facility] [id number] FB [id number] Yessica M Corzine OBGyn Episode Ob Episode Information Episode Created Date Number of Fetuses Patient Bloodtype Patient rh Status Prepregnancy Weight lbs Domestic Partner Domestic Partner Phone Father Name Neurophysiology Tech Status 12/25/19 20 1 CLOSED Fetus Data [...] Domestic Partner Domestic Partner Phone Father Name Neurophysiology Tech Status 12/25/19 20 1 CLOSED Fetus Data [...] Domestic Partner Domestic Partner Phone Father Name Neurophysiology Tech Status 09/11/19 22 1 A Positive 221 CLOSED Fetus Data First Name Last Name Admitted to NICU Weight (g) Sex Living Outcome Pediatric Complications Fetus ID Race Codes Race Delivery Type 4224.07 55 M true Full Term [id number] Vaginal Delivery Problems Problem Notes TSH WNL/A+/Ha1c/CBC WNL Problem Name Start Date End Date Resolution Snomed Code Not e Hypothyroidism 99986639 care: history of infertility 656933988 Group B Streptococcus carrier 8995651810844 bacteriuria Maternal obesity complicating , childbirth and the puerperium, antepartum 608627560931 BMI 39- ante testing at 37w 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 1749380 maia ellsworth , baseline labs, ASA Placenta circumvallata 5357544 Serial growth u/s Pre-eclampsia 558425014 Darren Calculation Initial Darren Date Initial Exam [...] Date Ultra Sound Latest Days Gestation 0 [email or web address] 09/13/2021 03/23/20 22 0 Pre- Flowsheet Flowsheet Date 09/10/2021 Mckinney Score Blood Edema Fundus Height Fundus Units Glucose Ketones Leukocytes Nitrite Labor Signs Protein Cervic Dilation Cervic Effacement Cervic Station neg none Type Weight in lbs Pre/Post Dialysis Refused Weight 225.389713043038 BP Diastolic BP Location Tested BP Systolic [...] Weight in lbs Pre/Post Dialysis Refused Weight 226.449884936657 BP Diastolic BP Location Tested BP Systolic [...] Weight in lbs Pre/Post Dialysis Refused Weight 224.209237252772 BP Diastolic BP Location Tested BP Systolic [...] Weight in lbs Pre/Post Dialysis Refused Weight 230.023627605632 BP Diastolic BP Location Tested BP Systolic [...] Weight in lbs Pre/Post Dialysis Refused Weight 234.230953127451 BP Diastolic BP Location Tested BP Systolic [...] Weight in lbs Pre/Post Dialysis Refused Weight 235.684158038370 BP Diastolic BP Location Tested BP Systolic BP Type 86 142 Fetus Heart Rate Present Fetus Movement A Yes Comments patient is having some pain, contractions, abdominal discomfort, swelling, heartburn. reviewed precautions growth efw 82% AC 94%, jeanine 22, rpt jeannie 2 weeks and growth in 4 weeks, [...] Weight in lbs Pre/Post Dialysis Refused Weight 239.363955112152 BP Diastolic BP Location Tested BP Systolic [...] Weight in lbs Pre/Post Dialysis Refused Weight 240.724512412327 BP Diastolic BP Location Tested BP Systolic [...] Weight in lbs Pre/Post Dialysis Refused Weight 242.555011718649 BP Diastolic BP Location Tested BP Systolic [...] Weight in lbs Pre/Post Dialysis Refused Weight 243.924942926595 BP Diastolic BP Location Tested BP Systolic [...] Weight in lbs Pre/Post Dialysis Refused Weight 242.972660580135 BP Diastolic BP Location Tested BP Systolic [...] Weight in lbs Pre/Post Dialysis Refused Weight 246.363547635055 BP Diastolic BP Location Tested BP Systolic [...] Weight in lbs Pre/Post Dialysis Refused Weight 246.794967715441 BP Diastolic BP Location Tested BP Systolic [...] Weight in lbs Pre/Post Dialysis Refused Weight 211.480267948125 BP Diastolic BP Location Tested BP Systolic [...] Weight in lbs Pre/Post Dialysis Refused Weight 211.719826546469 BP Diastolic BP Location Tested BP Systolic BP Type 86 L arm 126 sitting Fetus Heart Rate Present Fetus Movement Comments Flowsheet Date 04/08/2022 Mckinney Score Blood Edema Fundus Height Fundus Units Glucose Ketones Leukocytes Nitrite Labor Signs Protein Cervic Dilation Cervic Effacement Cervic Station Type Weight in lbs Pre/Post Dialysis Refused Weight 212.78177043677 BP Diastolic BP Location Tested BP Systolic BP Type 84 134 Fetus Heart Rate Present Fetus Movement Comments Flowsheet Date 05/27/2022 Mckinney Score Blood Edema Fundus Height Fundus Units Glucose Ketones Leukocytes Nitrite Labor Signs Protein Cervic Dilation Cervic Effacement Cervic Station Type Weight in lbs Pre/Post Dialysis Refused Weight 221.328709609785 BP Diastolic BP Location Tested BP Systolic [...] Estim ated Date of Delivery false Thalassemia (Tuvaluan, St Helenian, Mediterranean, Or Background): MCV < 80 false Neural Tube Defect (Meningomyelocele, Spina Bifi da, Or Anencephaly) false Congenital Heart Defect false Down Syndrome false Curt-Sachs (eg, Buddhism, Cajun, Guyanese-Ringgold) f alse Yung Disease false Sickle Cell [...] Domestic Partner Domestic Partner Phone Father Name Neurophysiology Tech Status 06/05/19 25 2 A Positive 198 Gabriel Mo OPEN Fetus Data First Name Last Name Admitted to NICU Weight (g) Sex Living Outcome Pediatric Complications Fetus ID Race Codes Race Delivery Type [id number] Problems Problem Notes Anatomy with MFM - 07/31/24 1 300 [facility] U/S & OV [facility] 08/27/24 US only 1:00PM Problem Name Start Date End Date Resolution Snomed Code Not e care: history of infertility 234588229 Past history of shoulder dystocia 122756270 Large for gestation age fetus 411052246 less then 30 se c shoulder dystocia Past history of pre-eclampsia 469638748877536 bASA x2 Migraine 24671288 magnesium, Excedrin tension, sumatriptan 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 2249268 Palpitations 92002521 Holter monitor faxed to [facility] 07/29 Gestational diabetes mellitus 10/10/2024 06387952 Glucose tolerance test outside reference range 10/01/2024 644680154 10/01/2024 ch ecking blood sugars for 2 week instead for doing 3 hour Twin 34296883 38 wk deliveryantenatal testing @ 32wks per [facility] Scheduled rpt 08/27 us ONLY [...] Weight in lbs Pre/Post Dialysis Refused Weight 207.603345544984 BP Diastolic BP Location Tested BP Systolic [...] disability paperwork. will plan on referral to [facility] for anatomy and history of HTN/preeclampsia, twin [...] Type Weight in lbs Pre/Post Dialysis Refused 214.048930071799 BP Diastolic BP Location Tested BP Systolic [...] Weight in lbs Pre/Post Dialysis Refused Weight 216.695526883639 BP Diastolic BP Location Tested BP Systolic [...] No bleeding. Will send for anatomy at [facility]. Will measure for belly band [...] Type Weight in lbs Pre/Post Dialysis Refused 220.876580914909 BP Diastolic BP Location Tested BP Systolic BP Type 92 152 53 114 Fetus Heart Rate Present Fetus Movement A Yes B Yes Comments Patient is having headaches, pain, contractions, swelling, Had elevated heart rate over the weekend and get heart moniter on , 08/08/24. saw [facility] this morning rec 2 bASA, will rpt anatomy in 4 weeks, precautions and education f/u 4 weeks Flowsheet Date 08/09/2024 Mckinney Score Blood Edema Fundus Height Fundus Units Glucose Ketones Leukocytes Nitrite Labor Signs Protein Cervic Dilation Cervic Effacement Cervic Station neg none none neg Type Weight in lbs Pre/Post Dialysis Refused 227.743846332727 BP Diastolic BP Location Tested BP Systolic [...] Weight in lbs Pre/Post Dialysis Refused Weight [id number] BP Diastolic BP Location Tested BP Systolic BP Type 89 133 Fetus Heart Rate Present Fetus Movement A Yes B Yes Comments Patient is having pressure, contractions and swelling. Flowsheet Date 08/29/2024 Mckinney Score Blood Edema Fundus Height Fundus Units Glucose Ketones Leukocytes Nitrite Labor Signs Protein Cervic Dilation Cervic Effacement Cervic Station Type Weight in lbs Pre/Post Dialysis Refused [id number] BP Diastolic BP Location Tested BP Systolic [...] Type Weight in lbs Pre/Post Dialysis Refused [id number] BP Diastolic BP Location Tested BP Systolic [...] Type Weight in lbs Pre/Post Dialysis Refused [id number] BP Diastolic BP Location Tested BP Systolic BP Type 87 138 Fetus Heart Rate Present Fetus Movement A Yes B Yes Comments Patient is having pain and c ontractions and swelling. 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 for public speaking professor referral to fiordaliza, eduction and precautions f/u [...] Weight in lbs Pre/Post Dialysis Refused Weight 241.736993074840 BP Diastolic BP Location Tested BP Systolic BP Type 82 125 Fetus Heart Rate Present Fetus Movement Comments Flowsheet Date 10/23/2024 Mckinney Score Blood Edema Fundus Height Fundus Units Glucose Ketones Leukocytes Nitrite Labor Signs Protein Cervic Dilation Cervic Effacement Cervic Station neg trace Type Weight in lbs Pre/Post Dialysis Refused 241.66873588618 BP Diastolic BP Location Tested BP Systolic [...] Type Weight in lbs Pre/Post Dialysis Refused 248.317675504503 BP Diastolic BP Location Tested BP Systolic [...] Type Weight in lbs Pre/Post Dialysis Refused 238.879129834242 BP Diastolic BP Location Tested BP Systolic [...]
[2024-11-16 09:54] LABS: Add Urine Microscopic? YES; Appearance Urine Clear (Clear); Glucose Urine UA Negative (Negative); Leukocyte Esterase Ur Trace LEU/UL (Negative); Nitrate Urine Negative (Negative); Non Pathogenic Casts 0-2; Specific Grav Ur 1.011 (1.001-1.035)
[2024-11-16] MEDS: LACTATED RINGERS 1,000 ML 999 ML IV CONT (11:39)
--- NOTE | 2024-11-20 07:40 | PM.OBTRLD ---
OB - Triage/Final Diagnosis Visit Information Date of evaluation: 11/16/24 Reason for evaluation: threatened labor Comments/Additional reasons for admission: I have assessed the risk for this patient, Yessica Mo, and determined that she would benefit from observation care. Evaluation Laboratory results: Laboratory Tests 11/16/24 09:37 Urine Color Yellow Urine Appearance Clear Urine pH 6.5 Ur Specific [place] 1.011 Urine Protein Negative Urine Glucose (UA) Negative Urine Ketones 1+ H Ur Blood (Man) Negative Urine Nitrate Negative Urine Bilirubin Negative Urine Urobilinogen 1.0 Ur Leukocyte Esterase Trace H Urine RBC 0-2 Urine WBC 0-5 Ur Squamous Epith Cells None seen Urine Bacteria None seen Urine Casts 0-2
== END 2024-11-16 14:25 | disposition home or self-care (01) ==
PROVIDERS: Advanced Practice Midwife; Admitting Provider Obstetrics & Gynecology; Visit Provider Obstetrics & Gynecology
DX: O47.03 False labor before 37 completed weeks of gestation, third trimester (principal); Z3A.35 35 weeks gestation of pregnancy
CPT/HCPCS: 81001; 87086; A9270; G0378; G0379; J7120

== ENCOUNTER 2024-11-17 21:20 | Observation (INO) | payer OTHER, SELFPAY ==
[2024-11-17 21:46] VITALS: BP 145/90; PULSE 111
--- OUTSIDE RECORDS SUMMARY | 2024-11-17 21:50 | XMS_ITS | Encounter Summary ---
Author Organization [facility] Address [address] [place] [address] Phone Care Team Providers Care Visiting Teacher Name Role Phone Manda Singh MD Unavailable [phone] Robby Torres Primary Care Provider [phone] Scooter White DO Primary Care Provider Malik Cates MD Unavailable Ulices Marino MD Unavailable Yon Gutierrez MD Primary Care Provider Georgina Fontenot APRN, [facility] Unavailable [phone] Encounter Details Date Type Department Care Team (Late st Contact Info) Description 03/09/2020 [facility] [address] [place] [address] Walter Blake MD #[address] [place] [address] Preop testing (Primary Dx) Social History Tobacco [...] COVID-19? Unable to assess 03/10/2020 1:32 PM ANIMAL NURSE documented as of this encounter Plan of Treatment Not on file documented as of this encounter Visit Diagnoses Diagnosis Preop testing- Primary Preoperative examination, unspecified documented in this encounter Additional Health Concerns Infection Onset Date Last Indicated Resolved Time COVID - 19 03/10/2020 03/10/2020 03/16/2020 11:4 0 AM ANIMAL NURSE Assessment Noted Time PHQ-9 Depression Total Score: 0 02/11/20 20 12:57 PM CDT documented as of this encounter Care Teams Visiting Teacher Relationship Specialty Start Date End Date Robby Torres [address] [facility] [place] [address] PCP - General Family Medicine 02/11/20 03/16/21 Scooter White DO [facility] [facility] [place] [address] PCP - General Internal Medicine 03/17/21 06/22/23 Yon Gutierrez MD [address] [facility] , [facility] [address] [place] [address] PCP - General Family Medicine 06/23/23 Manda Singh MD Obstetrics & Gynecology 02/11/20 Malik Cates MD #2 [facility] [address] [place] [address] Consulting Physician Endocrinology 12/13/21 Ulices Marino MD [address] [address] Consulting Physician Colon and Rectal Surgery 07/06/22 Georgina Fontenot APRN, PERIOPERATIVE MANAGER #[address] [place] [address] Nurse Practitioner Advanced Practice Nurse 09/25/24 documented as of this encounter
--- OUTSIDE RECORDS SUMMARY | 2024-11-17 21:50 | XMS_ITS | Clinical Summary ---
Author Organization [facility] Address [address] [place] [address] Care Team Providers Care Wrap Turner Name Role Phone Scooter White DO Primary Care Provider [phone] Source Comments [facility],non-owned Affiliates and Associated Physician Practices is amultiple site organization consisting of ambulatory clinics and hospital sitesin [place], [place], [place]. This disclosure is being madepursuant to the Care Everywhere program and may not contain all information available regarding this patient. Last updated 18.[facility] Allergies Active Allergy Reactions Criticality Noted Date [...] Type Department Care Team Description 10/28/2024 Telephone [facility] Maternal & Care [address] [place], [place] [id number] Silvina León Appointment 09/24/2024 1:00 PM CDT - 09/24/2024 11:59 PM CDT Hospital Encounter [facility] [address] [place] [address] Derick Mcclendon MD REGULATORY ADMINISTRATOR Discharge Disposition: Home or Self Care 08/27/2024 12:58 PM CDT - 08/27/2024 11:59 PM CDT Hospital Encounter [facility] [address] [place] [address] Christiano Tristan MD Discharge Disposition: Home or [...] on file Legal Sex Female 1:08 PM MEDICAL CLERICAL ASSISTANT Gender Identity Not on file Sexual Orientation [...] (HCC) Dichorionic diamniotic twin in second trimester ([facility]) 28 weeks gestation of ([facility]) Supervision of high risk in second trimester ([facility]) Obesity affecting in second trimester, unspecified obesity type ([facility]) Encounter for follow-up ultrasound of anatomy ([facility]) Encounter for ultrasound to assess growth ([facility]) SONOGRAM - COMPLETE Routine 08/27/2024 1 2:52 PM CDT Dichorionic diamniotic twin in second trimester ([facility]) History of pre-eclampsia in prior , currently ([facility]) 24 weeks gestation of ([facility]) Supervision of high risk in second trimester ([facility]) from Last 3 Months Results * SONOGRAM - COMPLETE (09/24/2024 1:09 PM CDT) Only the most recent of2 resultswithin the time period is included. Linked Results Indication ======== DA/DC Twins Incomplete Anatomy Screen x2 History of Preeclampsia, Obesity in , Class II History ====== OB History 4. Para 3 [id number] 1. live 2011. Gest. age 41 w [...] 2 lb 14 oz EFW by Hadlock (WOG-SU-WN-FL) EFW discordance 4.6 % appropriate Fetus B: Biometry BPD 69.2 mm 27w 6d 42% Hadlock HC 260.6 mm 28w 2d 39% Hadlock AC 252.3 mm 29w 3d 88% Hadlock Femur 51.1 mm 27w 3d 25% Hadlock Humerus 48.6 mm 28w 4d 68% Robinson HC / AC 1.03 Weight Calculation: EFW 1,242 g 69% Hadlock EFW (lb,oz) 2 lb 12 oz EFW by Hadlock (GFR-OC-XT-FL) EFW discordance 4.6 % appropriate Fetus A: [...] Thorax RVOT view. LVOT view. 3-vessel view. 5-bzwkkl-ahhcpwt view. Situs. Bicaval view. Ductal arch view. [...] view. RVOT view. LVOT view. 3-vessel view. 2-uawscn-kdrkkqx view. Situs. Aortic arch view. Bicaval view. [...] and begin weekly testing Coding ====== Procedures 59853: US Preg Uterus Follow Up. x2 PACS Anatomical Region Laterality Modality Other 09/24/2024 1:09 PM CDT R Bert Garcia MD [facility] ORDERABLES Edited Result - Final from Last 3 Months Insurance HEALTH CARE Care Teams Wrap Turner Relationship Specialty Start Date End Date Scooter White DO PCP - General 03/16/22
--- OUTSIDE RECORDS SUMMARY | 2024-11-17 21:50 | XMS_ITS | Continuity of Care Document ---
Author Organization [facility] Address [address] [facility] [place] [address] Phone Care Team Providers Care Analytical Clerk Name Role Phone Robby Torres MD Unavailable [...] Diagnoses Date Provider Providers Copied on Encounter [facility], [address] [facility] [place], [address], [place] tel:[phone] [facility] No Information 1 Brian Bustamante. [address], [place], [place], [address] , [place]. tel:[phone] [facility], [address], [place], [place], [address], [place] tel:[phone] [facility] No Information 0 Brian Bustamante. [address], [place], [place], [address] , [place]. tel:[phone] OFFICE/OUTPA TIENT VISIT, [facility], [address], [place], [place], [address], [place] tel:[phone] [facility] anxiety1 (chief complaint) Generalized Anxiety DisorderHypothyroid ism 0 Brian Bustamante. [address], [place], [place], [address] , [place]. tel:[phone] Referring Provider: Robby Torres [address], [place], [place], [address]. tel:[phone] OFFICE/OUTPA TIENT VISIT, [facility], [address], [place], [place], [address], [place] tel:[phone] [facility] anxiety1 (chief complaint) Generalized Anxiety DisorderGoiter 0 Brian Bustamante. [address], [place], [place], [address] , [place]. tel:[phone] Referring Provider: Robby Torres [address], [place], [place], [address]. tel:[phone] OFFICE/OUTPA TIENT VISIT, [facility], [address], [place], [place], [address], [place] tel:[phone] [facility] thyroid nodule1 (chief complaint) anxiety1 (chief complaint) GoiterGeneralized Anxiety Disorder 0 Brian Menendez [address], [place], [place], [address] , [place]. tel:[phone] Referring Provider: Gissel Banks [address], [place], [place], [address]. tel:[phone] OFFICE/OUTPA TIENT VISIT, [facility], [address], [place], [place], [address], [place] tel:[phone] [facility] anxiety1 (chief complaint) iron1 (chief complaint) thyroid1 (chief complaint) Disorder of iron metabolism, unspecifiedGoiterGe neralized Anxiety Disorder Lonnie-0 0 Brian Bustamante. [address], [place], [place], [address] , [place]. [phone] Referring Provider: Gissel Banks [address], [place], [place], [address]. tel:[phone] OFFICE/OUTPA TIENT VISIT, [facility], [address], [place], [place], [address], [place] tel:[phone] [facility] ankle pain1 (chief complaint) fatigue1 (chief complaint) thyroid1 (chief complaint) anemia1 (chief complaint) Pain in right ankleFatigueAnemiaG oiter 0 Brian Bustamante. [address], [place], [place], [address] , [place]. tel:[phone] Referring Provider: Gissel Banks [address], [place], [place], [address]. tel:[phone] OFFICE/OUTPA TIENT VISIT, [facility], [address], [place], [place], [address], [place] tel:[phone] [facility] rash1 (chief complaint) Allergic contact dermatitis due to plants, except food Aug- 0 Brian Bustamante. [address], [place], [place], [address] , [place]. [phone] Referring Provider: Gissel Banks [address], [place], [place], [address]. tel:[phone] OFFICE/OUTPA TIENT VISIT, [facility], [address], [place], [place], [address], tel:[phone] [facility] Medicine thyroid1 (chief complaint) ferritin1 (chief complaint) IgA (chief complaint) fatigue1 (chief complaint) GoiterDisorder of iron metabolism, unspecifiedVitamin D deficiency, unspecifiedRaised level of immunoglobulinAnemi aH. pylori as the cause of diseases classified elsewhereFatigue 0 Brian Bustamante. [address] [facility], [address] , . tel:[phone] Referring Provider: Gissel Banks [place], [address]. tel:[phone] PREV VISIT, NEW, AGE 18-39 [facility], [address] [place] [address] [place], [place], [address], tel:[phone] [facility] PHysical (chief complaint) Encntr for general adult medical exam w/o abnormal findings 0 Brian Bustamante. [address], [facility] [address], [place], [place], [address] , [place]. tel:[phone] Referring Provider: Robby Torres [address] [place] [address], [id number]. tel:[phone] Family History Family Member Type Diagnosis Age [...] Referral Referred To: Jean Carlos BolañosJoe silva [address] [facility]
[address] [place], [place] [address] Ordered: Referrals: Allopathic & Osteopathic Physicians : [...] any dysphagia ankle pain1 Pt was at [facility] and she stepped on gravel [...] or swelling . fatigue1 Pt has mild napkin band wrapper mark fatigue Pt had sleep study done [...]
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
--- OUTSIDE RECORDS SUMMARY | 2024-11-17 21:50 | XMS_ITS | Encounter Summary ---
Author Organization [facility] Address [address] [place] [address] Phone Care Team Providers Care Nail Galvanizer Name Role Phone Manda Singh MD Unavailable [phone] Scooter White DO Primary Care Provider Malik Cates MD Unavailable Ulices Marino MD Unavailable Yon Gutierrez MD Primary Care Provider Georgina Fontenot APRN, KELP CUTTER Unavailable [phone] Encounter Details Date Type Department Care Team (Late st Contact Info) Description 07/26/2021 [facility] [address] [place] [address] Edita Garza, TRUNG, MANAGEMENT TRAINEE PROGRAM STORES [address] [place] [address] Encounter for pre-employment examination Social [...] >=1.1 AI 07/26/2021 10:00 PM CDT [facility] Blood No Phlebotomy Charged / Unknown 07/26/2021 9:00 AM CDT 07/26/2021 2:15 PM CDT Narrative [facility] - 07/26/2021 10:00 PM CDT <= 0.8 Negative. No detectable VZV IgG antibody. 0.9 - 1.0 Equivocal >=1.1 Positive Antibody testing was performed by multiplex flow immunoassay on the BioPlex platform. Edita L Behrends TICKET MARKER, MANAGEMENT TRAINEE PROGRAM STORES IMMUNOLOGY ORDERABL ES Final Result Performing Organization Address [facility] de Phone Number [facility] [address] [place] [address], [place] * (ABNORMAL) RUBEOLA (MEASLES) IGG (07/26/2021 9:00 AM CDT) MEASLES AB IGG 0.7(L) >=1.1 AI 07/26/2021 10:00 PM CDT [facility] Blood No Phlebotomy Charged / Unknown 07/26/2021 9:00 AM CDT 07/26/2021 2:15 PM CDT Narrative [facility] - 07/26/2021 10:00 PM CDT <= 0.8 Negative. No detectable Measles IgG antibody. 0.9 - 1.0 Equivocal >=1.1 Positive Antibody testing was performed by multiplex flow immunoassay on the BioPlex platform. Edita L Behrends TICKET MARKER, MANAGEMENT TRAINEE PROGRAM STORES IMMUNOLOGY ORDERABL ES Final Result Performing Organization Address [facility] de Phone Number [facility] [address] [place] [address], [place] * RUBELLA IMMUNITY IGG (07/26/2021 9:00 AM CDT) RUBELLA IMMUNITY Immune Immune, Invalid 07/26/2021 10:00 PM CDT [facility] Blood No Phlebotomy Charged / Unknown 07/26/2021 9:00 AM CDT 07/26/2021 2:15 PM CDT Narrative [facility] - 07/26/2021 10:00 PM CDT Antibody testing was performed by multiplex flow immunoassay on the BioPlex platform. us Edita Garza TICKET MARKER, MANAGEMENT TRAINEE PROGRAM STORES CHEMISTRY ORDERABLE S Final Result Performing Organization Address [facility] Co de Phone Number [facility] [address] [place] [address], [place] * MUMPS IGG (07/26/2021 9:00 AM CDT) Mumps Ab IgG 1.2 >=1.1 AI 07/26/2021 10:00 PM CDT [facility] Blood No Phlebotomy Charged / Unknown 07/26/2021 9:00 AM CDT 07/26/2021 2:15 PM CDT Narrative [facility] - 07/26/2021 10:00 PM CDT <= 0.8 Negative. No detectable Mumps IgG antibody. 0.9 - 1.0 Equivocal >=1.1 Positive Antibody testing was performed by multiplex flow immunoassay on the BioPlex platform. us Edita Garza TICKET MARKER, MANAGEMENT TRAINEE PROGRAM STORES IMMUNOLOGY ORDERABL ES Final Result Performing Organization Address [facility] Co de Phone Number [facility] [address] [place] [address], [place] * QUANTIFERON-TB GOLD PLUS (07/26/2021 9:00 AM CDT) NIL CONTROL 0.04 <8.01 IU/mL 07/28/2021 1:01 PM CDT [facility] TB ANTIGEN 1 0.00 <0.35 IU/mL 07/28/2021 1:01 PM CDT [facility] TB ANTIGEN 2 0.00 <0.35 IU/mL 07/28/2021 1:01 PM CDT [facility] MITOGEN CONTROL 9.64 >0.49 IU/mL 07/29/19 1:01 PM CDT [facility] INTEPRETATION TB NEGATIVE NEGATIVE, NEGATIVE (TB antigen response less than 25% of internal negative control value) 07/28/2021 1:01 PM CDT [facility] Comment:No immune response t o Mycobacterium tuberculosis antigens was noted. M. tuberculosis infection unlikely. Blood No Phlebotomy Charged / Unknown 07/26/2021 9:00 AM CDT 07/26/2021 2:15 PM CDT Narrative [facility] - 07/28/2021 1:01 PM CDT A POSITIVE [...] immunocompromised individuals. https://www.cdc.gov/tb/publications/guidelines/testing.htm us Edita L Behrends TICKET MARKER, MANAGEMENT TRAINEE PROGRAM STORES IMMUNOLOGY ORDERABL ES Final Result Performing Organization Address [facility] Co de Phone Number [facility] [address] [place] [address], [place] * HEPATITIS B SURFACE ANTIBODY (HBSAB) (07/26/2021 9:00 AM CDT) HEPATITIS B SURFACE ANTIBODY 8.33 mIU/mL [facility] ARCH [id number] B 07/27/2021 12:02 AM CDT [facility] Comment: Grayzone Range: >=8.00 to <=12.00 The immune status of the individual should be further assessed considering other factors, such as clinical status, follow-up testing, associated risk factors and the use of additional diagnostic information. Blood No Phlebotomy Charged / Unknown 07/26/2021 9:00 AM CDT 07/26/2021 2:15 PM CDT us Edita Garza TICKET MARKER, MANAGEMENT TRAINEE PROGRAM STORES CHEMISTRY ORDERABLE S Final Result Performing Organization Address [facility] Co de Phone Number [facility] [address] [place] [address], [place] documented in this encounter Visit Diagnoses Diagnosis Encounter for pre-employment examination Health examination of defined subpopulation documented in this encounter Additional Health Concerns Assessment Noted Time PHQ-9 Depression Total Score: 0 02/11/20 20 12:57 PM CDT documented as of this encounter Care Teams Nail Galvanizer Relationship Specialty Start Date End Date Scooter White DO [address] [place] [address] [place] [address] PCP - General Internal Medicine 03/17/21 06/22/23 Yon Gutierrez MD [address] [place] [address] [address] PCP - General Family Medicine 06/23/23 Manda Singh MD Obstetrics & Gynecology 02/11/20 Malik Cates MD [address] [address] Consulting Physician Endocrinology 12/13/21 Ulices Marino MD [address] [address] Consulting Physician Colon and Rectal Surgery 07/06/22 Georgina Fontenot APRN, KELP CUTTER [address] [place] [address] Nurse Practitioner Advanced Practice Nurse 09/25/24 documented as of this encounter
--- OUTSIDE RECORDS SUMMARY | 2024-11-17 21:50 | XMS_ITS | Encounter Summary ---
Author Organization [facility] Address [address] [place] [address] Care Team Providers Care Milling Machine Tender Name Role Phone Scooter White DO Primary Care Provider Encounter Details Date Type Department Care Team (Late st Contact Info) Description 11/06/2018 Lab Requisition [facility] Care Pathology Lab [address] [place] [address] Cindi Herrera MD [address] [place] [address] Enlarged lymph nodes Social History Tobacco Use Types Packs/Day Years Used Date Smoking Tobacco: Never Smokeless Tobacco: Never Alcohol Use Standard Drinks/Week Comments No 0 (1 standard drink = 0.6 oz pur e alcohol) Comments No Sex and Gender Information Value Date Recorded Sex Assigned at Not on file Legal Sex Female 1:08 PM INSPECTOR FUEL HOSE Gender Identity Not on file Sexual Orientation [...] AM CDT) Case Report Flow Cytometry Case: [id number] Authorizing Provider: Cindi Herrera MD Collected: 11/05/2018 11:02 AM Pathologist: Alexa Weinberg MD Received: 11/06/2018 02:01 PM Specimen: Cervical Lymph Node , Left 9 5:33 PM T [facility] PATHOLOGY LAB Final Diagnosis Lymph node, left cervical, flow cytometric immunophenotypic analysis: - No evidence of non-Hodgkin lymphoma. - See interpretation. 9 5:33 PM [facility] PATHOLOGY LAB at 1733 CDT Flow Cytometry [...] the flow cytometry specimen is reviewed for production quality manager purposes. In summary, the left cervical lymph node specimen shows no evidence of a non-Hodgkin lymphoma. Correlation with additional clinical information and the concurrent biopsy specimen is required. KR 9 5:33 PM [facility] PATH[facility] Flow Cytometry Results Differential Result Comment Flow Cell Count /uL [id number] Total Viability % 86.0 Lymphocytes % 97 Dim CD45 Region % 0 Monocytes % 1 Granulocytes % 1 9 5:33 PM [facility] Reason for test Enlarged lymph nodes 785.6 9 5:33 PM [facility] Client Specimen ID # [id number] 9 5:33 PM [facility] Number of markers 16 were performed. A Flow CD3 A Flow CD10 A Flow CD20 A Flow CD23 A Flow CD2 A Flow CD4 A Flow CD1a A Flow CD5 A Flow CD19 A Flow CD34 A Flow CD45 A Flow CD7 A Flow CD8 A Flow CD30 A [place]+CD19+ A Lambda+CD19+ 9 5:33 PM [facility] PATH[facility] Disclaimer Test performed at [facility], [address] [place], [place], [address]. *The established laboratory minimum viability is 70%. [...] LAB - PATHOLOGY/CYTOLOGY ORDERA BLE Final Result [facility] PATHOLOGY LAB [address] [facility] [place] [address], [facility] [phone] documented in this encounter Visit Diagnoses Diagnosis Enlarged lymph nodes Enlargement of lymph nodes documented in this encounter Care Teams Milling Machine Tender Relationship Specialty Start Date End Date Scooter White DO PCP - General 03/16/22 documented as of this encounter
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
--- OUTSIDE RECORDS SUMMARY | 2024-11-17 21:50 | XMS_ITS | Clinical Summary ---
Author Organization [facility] Address [address] [address] [place] [address] Phone Care Team Providers Care Cottage Master Name Role Phone Manda Singh MD Unavailable [phone] Malik Cates MD Unavailable Ulices Marino MD Unavailable Yon Gutierrez MD Primary Care Provider Georgina Fontenot SCIENTIFIC GLASS BLOWER, HUMAN RESOURCES RECORDS CLERK Unavailable [phone] Allergies Active Allergy Reactions Criticality Noted Date [...] Transcribe Orders [facility] [address] [place] [address] Provider, Not On File Low back pain, [...] 97.5 kg (215 lb) 04/19/2023 8:07 AM SUPERVISOR SAMPLE Height 165.1 cm (5' 5) 04/19/2023 8:07 AM SUPERVISOR SAMPLE Body Mass Index 35.78 04/19/2023 8:07 AM SUPERVISOR SAMPLE Plan of Treatment Health Maintenance Due Date [...] topic Medical Devices Implanted Type Area Custom Motorcycle Painter Device Identifier Shelf Expiration Date Model / Serial / Lot Tube Ventilation 5mm Carey Triune - [id number] Implanted:Qty: 1 on 11/05/2018 by Jordon Deng MD at [facility] IMPLANT Left: Ear [employer] 04/06/2020 510-122 / [id number] / [id number] Description:Ear tubes came f rom the same package Tube Ventilation 5mm Carey Triune - [id number] Implanted:Qty: 1 on 11/05/2018 by Jordon Deng MD at [facility] IMPLANT Right: Ear [employer] 04/06/2020 510-122 / 510-122 / [id number] Description:Ear tubes came f rom the same package Insurance * Guarantor: [facility] Account Type Relation to Patient Date of Phone Billing Address Institutional Other [address] [place] [address] Care Teams Cottage Master Relationship Specialty Start Date End Date Yon Gutierrez MD [address] [address] PCP - General Family Medicine 06/23/23 Manda Singh MD Obstetrics & Gynecology 02/11/20 Malik Cates MD [address] [address] Consulting Physician Endocrinology 12/13/21 Ulices Marino MD #[address] [address] Consulting Physician Colon and Rectal Surgery 07/06/22 Georgina Fontenot, SCIENTIFIC GLASS BLOWER, HUMAN RESOURCES RECORDS CLERK [address] [place] [address] Nurse Practitioner Advanced Practice Nurse 09/25/24
--- OUTSIDE RECORDS SUMMARY | 2024-11-17 21:50 | XMS_ITS | Continuity of Care Document ---
Author Organization [facility] Address [address] [place] [address] [address] [place] [address] Phone Care Team Providers Care Geological Manager Name Role Phone Carol OD OD, Georgina [...] Providers Copied on Encounter [facility], [address] [place] [address] [address], [place], [place], [id number], tel:[phone] [facility] No Information 3 Carol OD Georgina. [address] [facility], [address], [place], [place], [id number], [place]. tel:[phone] Referring Provider: Georgina Medina OD, [address] [facility] [address], [place], [address] . tel:[phone] OFFICE/OUTPA TIENT VISIT, [facility], [address] [place] [address], [id number], tel:[phone] [facility] blurry vision (chief complaint) dry eye (chief complaint) Krystin's thyroiditisMyo roger, bilateralTear film insufficiency of bilateral lacrimal glandsOther vitreous opacities, bilateralCorne al neovasculariza tion of both eyes 2 Derheimer OD Georgina. [address], [address] [place] [address], [id number], [place]. tel:[phone] Referring Provider: Scooter White, [address], [place], [address]. tel:[phone] [facility], [address] [place] [address], [id number], tel:[phone] Optical Services KENTRELL LOPEZ No Information 6 Derheimer OD Georgina. [address], [address] [place] [address], [id number], [place]. tel:[phone] Referring Provider: Georgina Medina OD, [address], [place], [address] . tel:[phone] [facility], [address] [place] [address], [id number], tel:[phone] OPH CONSULT [facility]OPEZ blurry vision (chief complaint) Myopia, bilateral 6 Derheimer OD Georgina. [address], [place], [place], [id number], [place]. tel:[phone] Referring Provider: Georgina Medina OD, [address], [place], [address] . tel:[phone] [facility], [address] [place] [address], [id number], tel:[phone] OPH CONSULT [facility]OPE[facility] No Information 1 Beth Cohenl. [address], [address], [place], [place], [id number], [place]. tel:[phone] Family History Family Member Type Diagnosis Age [...]
--- OUTSIDE RECORDS SUMMARY | 2024-11-17 21:50 | XMS_ITS | Encounter Summary ---
Author Organization [facility] Address [address] [place] [address] Phone Care Team Providers Care Staff Developer Name Role Phone Manda Singh MD Unavailable [phone] Robby Torres Primary Care Provider [phone] Scooter White DO Primary Care Provider Malik Cates MD Unavailable Ulices Marino MD Unavailable Yon Gutierrez MD Primary Care Provider Georgina Fontenot APRN, [facility] Unavailable [phone] Encounter Details Date Type Department Care Team (Late st Contact Info) Description 04/09/2020 Telephone [facility] [address] [address] [address] Saud Dalton MD [address] [place] [address] Social History Tobacco Use Types Packs/Day [...] COVID-19? No / Unsure 03/20/2020 6:06 AM HIGH PRESSURE OPERATOR documented as of this encounter Miscellaneous Notes * Telephone Encounter - Mahnaz Alaniz - 04/09/2020 2:50 PM CST Patient no showed her appointment, left voice message to call the office to reschedule. Sent out a no show letter. PRESSURE OPERATOR documented in this encounter Plan of Treatment Not on file documented as of this encounter Visit Diagnoses Not on filedocumented in this encounter Additional Health Concerns Assessment Noted Time PHQ-9 Depression Total Score: 0 02/11/20 20 12:57 PM CDT documented as of this encounter Care Teams Staff Developer Relationship Specialty Start Date End Date Robby Torres [address] [place] [address] PCP - General Family Medicine 02/11/20 03/16/21 Scooter White DO [address] [place] [address] [place] [address] PCP - General Internal Medicine 03/17/21 06/22/23 Yon Gutierrez MD [address] [place] [address] [address] PCP - General Family Medicine 06/23/23 Manda Singh MD Obstetrics & Gynecology 02/11/20 Malik Cates MD #[address] [address] Consulting Physician Endocrinology 12/13/21 Ulices Marino MD #[address] [address] Consulting Physician Colon and Rectal Surgery 07/06/22 Georgina Fontenot APRN, NECKTIE MAKER [address] [place] [address] Nurse Practitioner Advanced Practice Nurse 09/25/24 documented as of this encounter
--- OUTSIDE RECORDS SUMMARY | 2024-11-17 21:51 | XMS_ITS | Data Portability ---
Author Organization [facility] Address [address] [place] [address] Care Team Providers Care Manager Travel Name Role Phone ZO MORA OTHER Assessment [...] auto diff 2018 019 [facility], [address] [address], [place], [address], 9 06:40:13 ferritin, serum or plasma 2018 019 [facility], [address] [facility] [address], [place], [address], 9 06:40:14 iron + total iron-bindin g capacity (TIBC), serum 2018 019 [facility], [address] [place] [address] 2, [place], [address], 9 06:40:14 HIV 1+2 AB + HIV 1 p24 Ag, qualitative immunoassay , serum 2018 019 [facility], [address], [place], [address], 9 07:12:01 HBsAg (hepatitis B surface Ag), EIA, serum 2018 019 [facility], [address], [place], [address], 9 07:12:02 hepatitis C Ab, signal-to-c utoff, serum or plasma 2018 019 [facility], [address], [place], [address], 9 07:12:01 RPR (rapid plasma reagin), serum 2018 019 [facility], [address], [place], [address], 9 07:12:00 hsv (1+2) igg Ab, serum 2018 019 [facility], [address] [facility], [address], [place], [address], 9 07:12:00 CBC w/ auto diff 2018 019 [facility], [address] [facility], [address], [place], [address], 9 07:11:59 Referral general surgeon referral 2018 019 LANA Moralez MD, [address] [facility] , [facility] [address], [place], [address], 9 12:38:24 ENT referral - Saw Dr. Mora --- need a second opinion. 2018 019 [facility], [address] [facility], [address], [place], [address], 9 17:55:21 Procedures None recorded. Surgeries None recorded. Imaging None recorded. Medication Orders ferrous sulfate 325 mg (65 mg iron) tablet [address] [facility], [address] [place] [address], [address], 9 11:26:58 Mucinex 600 mg tablet, extended release [address] [facility], [address] [place] [address], [address], 9 00:24:12 ferrous sulfate 325 mg (65 mg iron) tablet [address] [facility], [address] [place] [address], [address], 9 12:48:40 Tessalon Perles 100 mg capsule [address] [facility], [address] [place] [address], [address], 9 00:24:06 Patient TargetsNo targets recorded. Patient Instructions Encounter Date Encounter Id Patient Instructions Last Modified By Organization Details Last Modified Time 07/27/2018 [id number] upper respirator y infection (cold): care instructions [facility] Not available 07/27/2018 13:23:41 08/29/2018 [id number] hemorrhoids: car e instructions Not available 08/29/2018 16:13:52 anemia: care instructions Not available 08/29/2018 18:08:26 09/05/2018 [id number] Acute Sinusitis: Care Instructions Not available 09/05/2018 12:48:40 11/13/2018 [id number] hemorrhoids: car e instructions [facility] Not available 11/27/2018 00:17:15 02/13/2019 [id number] dizziness: care instructions [facility] Not available 02/13/2019 11:26:58 electrocardiogra m interpretation* [facility] Not available 03/13/2019 15:05:29 Reason for Referral ENT Referral for Cervical ly mphadenopathy Saw Dr. Mora --- need a second opinion. Referring Physician: Lucero Sandoval, Family Medicine, Encounter Date: 07/27/2018 General Surgeon Referral for Hemorrhoids Referring Physician: Ricardo Ramirez, BEHAVIORAL HEALTH CLINICIAN, Encounter Date: 08/29/2018 Results Created Date Observation Date Name Description Value Unit Range Abnormal Flag Note LastModifiedBy Organization Detail LastModifiedTime 07/04/19 19 07/05/2018 TSH + free T4, serum TSH 3.080 uIU/m L 0.450- 4.500 Not Available [facility] ([facility]) [address] [place], [address], 07/05/2018 09:23:03 07/04/19 19 07/05/2018 TSH + free T4, serum T4,free(dire ct) 1.06 NG/dL 0.82-1 .77 Not Available [facility] ([facility]) [address] [place], [address], 07/05/2018 09:23:03 07/04/19 19 07/04/2018 CBC w/ auto diff WBC 7.2 x10e3 /uL 3.4-10 .8 Not Available [facility] ([facility]) [address] [place], [address], 07/05/2018 09:23:03 07/04/19 19 07/04/2018 CBC w/ auto diff RBC 4.87 x10e6 /uL 3.77-5 .28 Not Available [facility] ([facility]) [address] [place], [address], 07/05/2018 09:23:03 07/04/19 19 07/04/2018 CBC w/ auto diff hemoglobin 11.5 g/dL 11.1-1 5.9 Not Available [facility] ([facility]) [address] [place], [address], 07/05/2018 09:23:03 07/04/19 19 07/04/2018 CBC w/ auto diff hematocrit 36.2 % 34.0-4 6.6 Not Available [facility] ([facility]) [address] [place], [address], 07/05/2018 09:23:03 07/04/19 19 07/04/2018 CBC w/ auto diff MCV 74 fL 79-97 below low normal Not Available [facility] ([facility]) [address] [place], [address], 07/05/2018 09:23:03 07/04/19 19 07/04/2018 CBC w/ auto diff MCH 23.6 pg 26.6-3 3.0 below low normal Not Available [facility] ([facility]) [address] [place], [address], 07/05/2018 09:23:03 07/04/19 19 07/04/2018 CBC w/ auto diff MCHC 31.8 g/dL 31.5-3 5.7 Not Available [facility] ([facility]) [address] [place], [address], 07/05/2018 09:23:03 07/04/19 19 07/04/2018 CBC w/ auto diff RDW 16.0 % 12.3-1 5.4 above high normal Not Available [facility] ([facility]) [address] [place], [address], 07/05/2018 09:23:03 07/04/19 19 07/04/2018 CBC w/ auto diff platelets 480 x10e3 /uL 150-37 9 above high normal Not Available [facility] ([facility]) [address] [place], [address], 07/05/2018 09:23:03 07/04/19 19 07/04/2018 CBC w/ auto diff neutrophils 64 % not estab. Not Available [facility] ([facility]) [address] [place], [address], 07/05/2018 09:23:03 07/04/19 19 07/04/2018 CBC w/ auto diff lymphs 28 % not estab. Not Available [facility] ([facility]) [address] [facility], [place], [address], 07/05/2018 09:23:03 07/04/19 19 07/04/2018 CBC w/ auto diff monocytes 6 % not estab. Not Available [facility] ([facility]) [address] [facility], [place], [address], 07/05/2018 09:23:03 07/04/19 19 07/04/2018 CBC w/ auto diff eos 1 % not estab. Not Available [facility] ([facility]) [address] [place], [address], 07/05/2018 09:23:03 07/04/19 19 07/04/2018 CBC w/ auto diff basos 1 % not estab. Not Available [facility] ([facility]) [address] [facility], [place], [address], 07/05/2018 09:23:03 07/04/19 19 07/04/2018 CBC w/ auto diff immature cells [employer] Not Available [facility] ([facility]) [address] [facility], [place], [address], 07/05/2018 09:23:03 07/04/19 19 07/04/2018 CBC w/ auto diff neutrophils (absolute) 4.6 x10e3 /uL 1.4-7. 0 Not Available [facility] ([facility]) [address] [place], [address], 07/05/2018 09:23:03 07/04/19 19 07/04/2018 CBC w/ auto diff lymphs (absolute) 2.0 x10e3 /uL 0.7-3. 1 Not Available [facility] ([facility]) [address] [place], [address], 07/05/2018 09:23:03 07/04/19 19 07/04/2018 CBC w/ auto diff monocytes(ab solute) 0.5 x10e3 /uL 0.1-0. 9 Not Available [facility] ([facility]) [address] [facility], [place], [address], 07/05/2018 09:23:03 07/04/19 19 07/04/2018 CBC w/ auto diff eos (absolute) 0.1 x10e3 /uL 0.0-0. 4 Not Available [facility] ([facility]) [address] [facility], [place], [address], 07/05/2018 09:23:03 07/04/19 19 07/04/2018 CBC w/ auto diff baso (absolute) 0.1 x10e3 /uL 0.0-0. 2 Not Available [facility] ([facility]) [address] [facility], [place], [address], 07/05/2018 09:23:03 07/04/19 19 07/04/2018 CBC w/ auto diff immature granulocytes 0 % not estab. Not Available [facility] ([facility]) [address] [facility], [place], [address], 07/05/2018 09:23:03 07/04/19 19 07/04/2018 CBC w/ auto diff immature grans (abs) 0.0 x10e3 /uL 0.0-0. 1 Not Available [facility] ([facility]) [address] [facility], [place], [address], 07/05/2018 09:23:03 07/04/19 19 07/04/2018 CBC w/ auto diff NRBC [employer] Not Available [facility] ([facility]) [address] [place], [address], 07/05/2018 09:23:03 07/04/19 19 07/04/2018 CBC w/ auto diff hematology comments: [employer]ER Not Available [facility] ([facility]) [address] [facility], [place], [address], 07/05/2018 09:23:03 07/04/19 19 07/05/2018 CMP, serum or plasm a glucose 90 mg/dL 65-99 Not Available [facility] ([facility]) [address] [place], [address], 07/05/2018 09:23:04 07/04/19 19 07/05/2018 CMP, serum or plasm a BUN 9 mg/dL 6-20 Not Available [facility] ([facility]) [address] [place], [address], 07/05/2018 09:23:04 07/04/19 19 07/05/2018 CMP, serum or plasm a creatinine 0.66 mg/dL 0.57-1 .00 Not Available [facility] ([facility]) [address] [place], [address], 07/05/2018 09:23:04 07/04/19 19 07/05/2018 CMP, serum or plasm a eGFR if nonafricn AM 123 mL/mi n/1.7 3 >59 Not Available [facility] ([facility]) [address] [place], [address], 07/05/2018 09:23:04 07/04/19 19 07/05/2018 CMP, serum or plasm a eGFR if africn AM 142 mL/mi n/1.7 3 >59 Not Available [facility] ([facility]) [address] [place], [address], 07/05/2018 09:23:04 07/04/19 19 07/05/2018 CMP, serum or plasm a BUN/creatini ne ratio 14 9-23 Not Available [facility] ([facility]) [address] [place], [address], 07/05/2018 09:23:04 07/04/19 19 07/05/2018 CMP, serum or plasm a sodium 139 mmol/ L 134-14 4 Not Available [facility] ([facility]) [address] [place], [address], 07/05/2018 09:23:04 07/04/1907/05/2018 CMP, serum or plasm a potassium 4.4 mmol/ L 3.5-5. 2 Not Available [facility] ([facility]) [address] [place], [address], 07/05/2018 09:23:04 07/04/1907/05/2018 CMP, serum or plasm a chloride 102 mmol/ L 96-106 Not Available [facility] ([facility]) [address] [place], [address], 07/05/2018 09:23:04 07/04/1907/05/2018 CMP, serum or plasm a carbon dioxide, total 23 mmol/ L 20-29 Not Available [facility] ([facility]) [address] [place], [address], 07/05/2018 09:23:04 07/04/1907/05/2018 CMP, serum or plasm a calcium 9.7 mg/dL 8.7-10 .2 Not Available [facility] ([facility]) [address] [place], [address], 07/05/2018 09:23:04 07/04/19 19 07/05/2018 CMP, serum or plasm a protein, total 8.1 g/dL 6.0-8. 5 Not Available [facility] ([facility]) [address] [place], [address], 07/05/2018 09:23:04 07/04/1907/05/2018 CMP, serum or plasm a albumin 4.6 g/dL 3.5-5. 5 Not Available [facility] ([facility]) [address] [place], [address], 07/05/2018 09:23:04 07/04/1907/05/2018 CMP, serum or plasm a globulin, total 3.5 g/dL 1.5-4. 5 Not Available [facility] ([facility]) [address] [place], [address], 07/05/2018 09:23:04 07/04/1907/05/2018 CMP, serum or plasm a A/G ratio 1.3 1.2-2. 2 Not Available [facility] ([facility]) [address] [place], [address], 07/05/2018 09:23:04 07/04/1907/05/2018 CMP, serum or plasm a bilirubin, total 0.3 mg/dL 0.0-1. 2 Not Available [facility] ([facility]) [address] [place], [address], 07/05/2018 09:23:04 07/04/1907/05/2018 CMP, serum or plasm a alkaline phosphatase 68 IU/L 39-117 Not Available [facility]) [address] [place], [address], 07/05/2018 09:23:04 07/04/1907/05/2018 CMP, serum or plasm a AST (SGOT) 20 IU/L 0-40 Not Available [facility] ([facility]) [address] [place], [address], 07/05/2018 09:23:04 07/04/1907/05/2018 CMP, serum or plasm a ALT (SGPT) 15 IU/L 0-32 Not Available [facility] ([facility]) [address] [place], [address], 07/05/2018 09:23:04 07/04/1907/05/2018 cytom egalo virus (cmv) igg+i gm Ab, serum cytomegalovi yung (CMV) Ab, IgG <0.60 U/mL 0.00-0 .59 Negat hayde <0.60 Equiv ocal 0.60 - 0.69 Posit hayde >0.69 Not Available [facility] ([facility]) [address] [facility], [place], [address], 07/05/2018 09:23:04 07/04/19 19 07/05/2018 cytom egalo virus (cmv) igg+i gm Ab, serum cytomegalovi yung (CMV) Ab, IgM <30.0 AU/mL 0.0-29 .9 Negat hayde <30.0 Equiv ocal 30.0 - 34.9 Posit hayde >34.9 A posit hayde resul t is gener ally indic ative of acute infec tion, react ivati on or persi stent IgM produ ction . Not Available [facility] ([facility]) [address] [facility], [place], [address], 07/05/2018 09:23:04 07/04/1907/05/2018 RPR (rapi d plasm a reagi n), serum RPR Non Reacti ve non reacti ve Not Available [facility] ([facility]) [address] [facility], [place], [address], 07/05/2018 09:23:05 07/04/1907/05/2018 heter ophil e Ab, quali tativ e latex agglu tinat ion, serum mono qual w/rflx qn Negati ve negati ve The sensi tivit y of Heter ophil e antib srinivasan testi ng is 80-90 %. Epste in [place] IgM testi ng offer s highe r sensi tivit y. Not Available [facility] ([facility]) [address] [facility], [place], [address], 07/05/2018 09:23:06 08/30/1908/30/2018 CBC w/ auto diff WBC 7.4 x10e3 /uL 3.4-10 .8 Not Available [facility] ([facility]) [address] [place], [address], 08/30/2018 07:11:59 08/30/19 19 08/30/2018 CBC w/ auto diff RBC 4.51 x10e6 /uL 3.77-5 .28 Not Available [facility] ([facility]) [address] [place], [address], 08/30/2018 07:11:59 08/30/19 19 08/30/2018 CBC w/ auto diff hemoglobin 11.0 g/dL 11.1-1 5.9 below low normal Not Available [facility] ([facility]) [address] [place], [address], 08/30/2018 07:11:59 08/30/1908/30/2018 CBC w/ auto diff hematocrit 34.2 % 34.0-4 6.6 Not Available [facility] ([facility]) [address] [place], [address], 08/30/2018 07:11:59 08/30/19 19 08/30/2018 CBC w/ auto diff MCV 76 fL 79-97 below low normal Not Available [facility] ([facility]) [address] [place], [address], 08/30/2018 07:11:59 08/30/19 19 08/30/2018 CBC w/ auto diff MCH 24.4 pg 26.6-3 3.0 below low normal Not Available [facility] ([facility]) [address] [place], [address], 08/30/2018 07:11:59 08/30/1908/30/2018 CBC w/ auto diff MCHC 32.2 g/dL 31.5-3 5.7 Not Available [facility] ([facility]) [address] [place], [address], 08/30/2018 07:11:59 08/30/19 19 08/30/2018 CBC w/ auto diff RDW 15.6 % 12.3-1 5.4 above high normal Not Available [facility] ([facility]) [address] [facility], [place], [address], 08/30/2018 07:11:59 08/30/19 19 08/30/2018 CBC w/ auto diff platelets 389 x10e3 /uL 150-37 9 above high normal Not Available [facility] ([facility]) [address] [facility], [place], [address], 08/30/2018 07:11:59 08/30/19 19 08/30/2018 CBC w/ auto diff neutrophils 59 % not estab. Not Available [facility] ([facility]) [address] [facility], [place], [address], 08/30/2018 07:11:59 08/30/19 19 08/30/2018 CBC w/ auto diff lymphs 31 % not estab. Not Available [facility] ([facility]) [address] [facility], [place], [address], 08/30/2018 07:11:59 08/30/19 19 08/30/2018 CBC w/ auto diff monocytes 8 % not estab. Not Available [facility] ([facility]) [address] [facility], [place], [address], 08/30/2018 07:11:59 08/30/19 19 08/30/2018 CBC w/ auto diff eos 1 % not estab. Not Available [facility] ([facility]) [address] [facility], [place], [address], 08/30/2018 07:11:59 08/30/1908/30/2018 CBC w/ auto diff basos 1 % not estab. Not Available [facility] ([facility]) [address] [facility], [place], [address], 08/30/2018 07:11:59 08/30/1908/30/2018 CBC w/ auto diff immature cells [employer]ISHER Not Available [facility] ([facility]) [address] [facility], [place], [address], 08/30/2018 07:11:59 08/30/19 19 08/30/2018 CBC w/ auto diff neutrophils (absolute) 4.4 x10e3 /uL 1.4-7. 0 Not Available [facility] ([facility]) [address] [place], [address], 08/30/2018 07:11:59 08/30/1908/30/2018 CBC w/ auto diff lymphs (absolute) 2.3 x10e3 /uL 0.7-3. 1 Not Available [facility] ([facility]) [address] [place], [address], 08/30/2018 07:11:59 08/30/1908/30/2018 CBC w/ auto diff monocytes(ab solute) 0.6 x10e3 /uL 0.1-0. 9 Not Available [facility] ([facility]) [address] [place], [address], 08/30/2018 07:11:59 08/30/1908/30/2018 CBC w/ auto diff eos (absolute) 0.1 x10e3 /uL 0.0-0. 4 Not Available [facility] ([facility]) [address] [place], [address], 08/30/2018 07:11:59 08/30/1908/30/2018 CBC w/ auto diff baso (absolute) 0.0 x10e3 /uL 0.0-0. 2 Not Available [facility] ([facility]) [address] [place], [address], 08/30/2018 07:11:59 08/30/1908/30/2018 CBC w/ auto diff immature granulocytes 0 % not estab. Not Available [facility] ([facility]) [address] [place], [address], 08/30/2018 07:11:59 08/30/1908/30/2018 CBC w/ auto diff immature grans (abs) 0.0 x10e3 /uL 0.0-0. 1 Not Available [facility] ([facility]) [address] [facility], [place], [address], 08/30/2018 07:11:59 08/30/1908/30/2018 CBC w/ auto diff NRBC [employer] Not Available [facility] ([facility]) [address] [facility], [place], [address], 08/30/2018 07:11:59 08/30/1908/30/2018 CBC w/ auto diff hematology comments: [employer]ISHER Not Available [facility] ([facility]) [address] [facility], [place], [address], 08/30/2018 07:11:59 08/30/1908/30/2018 hsv (1+2) igg Ab, [...] willy to HSV-1 . Not Available [facility] ([facility]) [address] [facility], [place], [address], 08/30/2018 07:12:00 08/30/1908/30/2018 hsv (1+2) igg Ab, [...] willy to HSV-2 . Not Available [facility] ([facility]) [address] [facility], [place], [address], 08/30/2018 07:12:00 08/30/19 19 08/30/2018 RPR (rapi d plasm a reagi n), serum RPR Non Reacti ve non reacti ve Not Available [facility] ([facility]) [address] [facility], [place], [address], 08/30/2018 07:12:00 08/30/1908/30/2018 HIV 1+2 AB + HIV 1 p24 Ag, quali tativ e immun oassa y, serum HIV screen 4TH generation wrfx Non Reacti ve non reacti ve Not Available [facility] ([facility]) [address] [facility], [place], [address], 08/30/2018 07:12:01 08/30/19 19 08/30/2018 hepat itis C Ab, signa l-to- cutof f, serum or plasm a HCV Ab <0.1 s/co_ ratio 0.0-0. 9 Not Available [facility] ([facility]) [address] [facility], [place], [address], 08/30/2018 07:12:01 08/30/1908/30/2018 hepat itis C Ab, signa l-to- cutof f, serum or plasm a comment: Commen t Non react hayde HCV antib srinivasan scree n is consi stent with no HCV infec tion, unles s recen t infec tion is suspe cted or other evide nce exist s to indic ate HCV infec tion. Not Available [facility] ([facility]) [address] [facility], [place], [address], 08/30/2018 07:12:01 08/30/1908/30/2018 HBsAg (hepa titis B surfa ce Ag), EIA, serum HBsAg screen Negati ve negati ve Not Available [facility] ([facility]) [address] [facility], [place], [address], 08/30/2018 07:12:02 02/14/2002/14/2019 CBC w/ auto diff WBC 7.5 x10e3 /uL 3.4-10 .8 Not Available [facility] ([facility]) [address] [facility], [place], [address], 02/14/2019 06:40:13 02/14/2002/14/2019 CBC w/ auto diff RBC 4.34 x10e6 /uL 3.77-5 .28 Not Available [facility] ([facility]) [address] [facility], [place], [address], 02/14/2019 06:40:13 02/14/2002/14/2019 CBC w/ auto diff hemoglobin 11.1 g/dL 11.1-1 5.9 Not Available [facility] ([facility]) [address] [facility], [place], [address], 02/14/2019 06:40:13 02/14/2002/14/2019 CBC w/ auto diff hematocrit 34.2 % 34.0-4 6.6 Not Available [facility] ([facility]) [address] [facility], [place], [address], 02/14/2019 06:40:13 02/14/2002/14/2019 CBC w/ auto diff MCV 79 fL 79-97 Not Available [facility] ([facility]) [address] [facility], [place], [address], 02/14/2019 06:40:13 02/14/2002/14/2019 CBC w/ auto diff MCH 25.6 pg 26.6-3 3.0 below low normal Not Available [facility] ([facility]) [address] [facility], [place], [address], 02/14/2019 06:40:13 02/14/2002/14/2019 CBC w/ auto diff MCHC 32.5 g/dL 31.5-3 5.7 Not Available [facility] ([facility]) [address] [facility], [place], [address], 02/14/2019 06:40:13 02/14/2002/14/2019 CBC w/ auto diff RDW 15.0 % 12.3-1 5.4 Not Available [facility] ([facility]) [address] [facility], [place], [address], 02/14/2019 06:40:13 02/14/2002/14/2019 CBC w/ auto diff platelets 372 x10e3 /uL 150-45 0 Not Available [facility] ([facility]) [address] [facility], [place], [address], 02/14/2019 06:40:13 02/14/2002/14/2019 CBC w/ auto diff neutrophils 61 % not estab. Not Available [facility] ([facility]) [address] [facility], [place], [address], 02/14/2019 06:40:13 02/14/2002/14/2019 CBC w/ auto diff lymphs 28 % not estab. Not Available [facility] ([facility]) [address] [facility], [place], [address], 02/14/2019 06:40:13 02/14/2002/14/2019 CBC w/ auto diff monocytes 8 % not estab. Not Available [facility] ([facility]) [address] [facility], [place], [address], 02/14/2019 06:40:13 02/14/2002/14/2019 CBC w/ auto diff eos 2 % not estab. Not Available [facility] ([facility]) [address] [facility], [place], [address], 02/14/2019 06:40:13 02/14/2002/14/2019 CBC w/ auto diff basos 1 % not estab. Not Available [facility] ([facility]) [address] [facility], [place], [address], 02/14/2019 06:40:13 02/14/2002/14/2019 CBC w/ auto diff immature cells [employer]ISHER Not Available [facility] ([facility]) [address] [facility], [place], [address], 02/14/2019 06:40:13 02/14/2002/14/2019 CBC w/ auto diff neutrophils (absolute) 4.7 x10e3 /uL 1.4-7. 0 Not Available [facility] ([facility]) [address] [facility], [place], [address], 02/14/2019 06:40:13 02/14/2002/14/2019 CBC w/ auto diff lymphs (absolute) 2.1 x10e3 /uL 0.7-3. 1 Not Available [facility] ([facility]) [address] [facility], [place], [address], 02/14/2019 06:40:13 02/14/2002/14/2019 CBC w/ auto diff monocytes(ab solute) 0.6 x10e3 /uL 0.1-0. 9 Not Available [facility] ([facility]) [address] [facility], [place], [address], 02/14/2019 06:40:13 02/14/2002/14/2019 CBC w/ auto diff eos (absolute) 0.1 x10e3 /uL 0.0-0. 4 Not Available [facility] ([facility]) [address] [place], [address], 02/14/2019 06:40:13 02/14/2002/14/2019 CBC w/ auto diff baso (absolute) 0.0 x10e3 /uL 0.0-0. 2 Not Available [facility] ([facility]) [address] [facility], [place], [address], 02/14/2019 06:40:13 02/14/2002/14/2019 CBC w/ auto diff immature granulocytes 0 % not estab. Not Available [facility] ([facility]) [address] [facility], [place], [address], 02/14/2019 06:40:13 02/14/2002/14/2019 CBC w/ auto diff immature grans (abs) 0.0 x10e3 /uL 0.0-0. 1 Not Available [facility] ([facility]) [address] [place] [address], [place], [address], 02/14/2019 06:40:13 02/14/2002/14/2019 CBC w/ auto diff NRBC [employer] Not Available [facility] ([facility]) [address] [place] [address], [place], [address], 02/14/2019 06:40:13 02/14/2002/14/2019 CBC w/ auto diff hematology comments: [employer]ISH[employer] Not Available [facility] ([facility]) [address] [facility], [place], [address], 02/14/2019 06:40:13 02/14/2002/14/2019 iron + total iron- leta ng capac ity (TIBC ), serum iron bind.cap.(TI BC) 353 ug/dL 250-45 0 Not Available [facility] ([facility]) [address] [place], [address], 02/14/2019 06:40:14 02/14/2002/14/2019 iron + total iron- leta ng capac ity (TIBC ), serum UIBC 336 ug/dL 131-42 5 Not Available [facility] ([facility]) [address] [place] [address], [address], 02/14/2019 06:40:14 02/14/2002/14/2019 iron + total iron- leta ng capac ity (TIBC ), serum iron 17 ug/dL 27-159 below low normal Not Available [facility] ([facility]) [address] [facility], [place], [address], 02/14/2019 06:40:14 02/14/20 19 02/14/2019 iron + total iron- leta ng capac ity (TIBC ), serum iron saturation 5 % 15-55 alert low Not Available [facility] ([facility]) [address] [facility], [place], [address], 02/14/2019 06:40:14 02/14/2002/14/2019 cristina tin, serum or plasm a ferritin, serum 7 NG/mL 15-150 below low normal Not Available [facility] ([facility]) [address] [facility], [place], [address], 02/14/2019 06:40:14 07/04/19 19 07/04/2018 XR, chest No observ ation record ed. [email or web address] [address] [place], [address], 07/06/2018 16:35:07 08/16/19 19 08/09/2018 CT, neck, soft tissu e, w/ contr ast No observ ation record ed. [address] [place], [address], 11/27/2018 00:09:00 08/17/19 19 08/16/2018 CT, sinus es, w/o contr ast No observ ation record ed. [address] [place], [address], 08/16/2018 13:21:28 Result Notes None recorded. Problems Name Problem SNOMED Code Status Onset Date Resolution Date Notes Provider Name and Address Organization Details Recorded Time Disorder of thyroid gland 75508223 Completed 201811/26/2018 [facility] New 9 00:12:22 Cervical lymphade nopathy 252486725 Active 2018 [facility] 9 11:15:19 Upper respirat ory infectio n 34365428 Completed 201811/13/2018 [place], [place] - [facility] 9 11:05:53 Mean corpuscu lar volume below referenc e range 755045339 Active 2018 [place] [facility] 9 12:49:50 Acute sinusiti s 76579217 Completed 201811/13/2018 [place] [facility] 9 11:05:49 History of Helicoba cter pylori infectio n 67603897550 018573 Active 2018 GI [place] [facility] 9 00:05:39 Chronic gastriti s 1381231 Active 2018 EGD - H pylori, GI [place] - [facility] 9 00:06:03 Hemorrho ids 26452338 Active 2018 Gen sx planning for hemorrho idectomy [place] - [facility] 9 00:06:27 Dizzines s 274818750 Active 2018 [place] [facility] 9 11:29:10 Infectiv e vaginiti s 497509588 Active Radha Garcia [place] [facility] 6 11:25:47 Infectiv e vaginiti s 094545566 Completed Shahrzad Barrera [place] [facility] 5 09:18:25 Maternal care for diminish ed movement s Active Radha [place] [facility] 6 11:25:47 Maternal care for diminish ed movement s Completed Shahrzad Barrera [place] [facility] 5 09:18:25 Breastfe eding painful 029388156 Active Radha Laymons [place] [facility] 6 11:25:47 Pain in pelvis 24532653 Active Radha [place] [facility] 6 11:25:47 Vaginal discharg e 775124648 Active white Radha moreno, [facility] 6 11:25:47 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 Procedures Surgical History Date Name Laterality Status Provider Name and Address Organization Details Recorded Time 05/08/19 16 Cholecystectomy completed Radha Garcia [facility] 11/03/2015 11:25:48 01/15/20 15 IUD Insertion completed Ricardo Box [facility] 01/14/2015 12:23:57 04/18/20 12 Date of Last Pap Smear completed Mily Parsons MA [facility] 05/06/2014 16:14:24 05/08/19 10 Appendectomy completed Maida Do MA [facility] 06/17/2014 11:12:04 Imaging Results None [...] Updated DateTime 9 162.56 cm 36.7 kg/m2 96636.0 4 g 97.9 [degF] 16 /min 76 /min 124/86 mm[Hg] Jenelle Groves [place] - [facility] 9 12:24:37 Date Recorded Body height Body mass index (BMI) Body weight Systolic And Diastolic Provider Name and Address Organization Details Last Updated DateTime 08/29/2018 162.56 cm 36.2 kg/m2 82922.99 g 130/94 mm[Hg] Shahrzad Barrera MA [facility] 08/29/2018 11:38:34 Date Recorded Body height Body mass index (BMI) Body weight Body temperature Heart rate Respiratory rate Systolic And Diastolic Provider Name and Address Organization Details Last Updated DateTime 9 162.56 cm 36 kg/m2 46628.6 1 g 98.3 [degF] 84 /min 20 /min 132/84 mm[Hg] Jenelle Groves MA [facility] 9 12:15:41 Date Recorded Body height Body mass index (BMI) Body weight Body temperature Heart rate Respiratory rate Systolic And Diastolic Provider Name and Address Organization Details Last Updated DateTime 9 162.56 cm 35.5 kg/m2 01735.9 7 g 98.3 [degF] 70 /min 18 /min 130/80 mm[Hg] Jenelle Groves MA [facility] 9 10:43:45 Date Recorded Body height Body mass index (BMI) Body weight Heart rate Respiratory rate Body temperature Systolic And Diastolic Provider Name and Address Organization Details Last Updated DateTime 9 162.56 cm 36.3 kg/m2 22279.7 9 g 86 /min 20 /min 98.3 [degF] 130/82 mm[Hg] Jenelle Groves MA [facility] 9 11:02:19 Social History Question [...] Information not available 06/17/2014 Marital Status [place] [address] Informatio n not available 06/17/2014 What Was [...] GI Problems N Depression N Acne N Breast Problem [...] SNOMED-CT Code Diagnosis ICD10 Code Diagnosis Note [id number] MD Lalo Weaver ([facility]) [address] [facility] [place] [address] 05/06/2014 15:15:04 05/07/2014 13:43:54 [id number] test positive [id number] Joan Blas [facility] Lalo Husain ([facility]) [address] [facility] [place] [address] 05/22/2014 14:23:39 05/22/2014 15:25:47 [id number] MD Lalo Roldan ([facility]) [address] [facility] [place] [address] 06/17/2014 10:44:30 06/17/2014 15:08:09 [id number] MD Lalo Roldan ([facility]) [address] [facility] [place] [address] 07/15/2014 10:26:03 07/16/2014 09:23:26 Normal [id number] MD Lalo Weaver ([facility] 122) [address] [facility] [place] [address] 08/12/2014 09:35:12 08/12/2014 12:42:08 Normal [id number] MD Lalo Weaver ([facility]) [address] [facility] [place] [address] 08/26/2014 11:56:11 08/27/2014 16:10:13 [id number] MD Lalo Weaver ([facility]) [address] [facility] [place] [address] 09/09/2014 14:42:01 09/09/2014 15:30:17 [id number] MD Lalo Weaver ([facility]) [address] [facility] [place] [address] 09/23/2014 09:49:09 09/23/2014 15:23:49 [id number] MD Lalo Weaver ([facility]) [address] [facility] [place] [address] 10/07/2014 10:59:01 10/07/2014 11:38:07 [id number] MD Lalo Weaver ([facility]) [address] [facility] [place] [address] 10/21/2014 09:36:51 10/23/2014 12:51:20 [id number] MD Lalo Weaver ([facility]) [address] [place] [address] 11/04/2014 09:43:59 11/04/2014 14:45:01 [id number] Normal [id number] MD Lalo Weaver ([facility]) [address] [facility] [place] [address] 11/11/2014 11:18:25 11/11/2014 14:54:02 [id number] Maternal c are for diminished movements 048380226 [id number] MD Lalo Weaver ([facility]) [address] [facility] [place] [address] 11/18/2014 10:46:59 11/18/2014 11:58:55 [id number] MD Lalo Weaver ([facility]) [address] [place] [address] 11/24/2014 08:49:50 11/24/2014 10:29:51 [id number] MD Lalo Weaver ([facility]) [address] [place] [address] 12/24/2014 09:05:47 12/24/2014 12:04:57 care [id number] MD Lalo Weaver ([facility]) [address] [facility] [place] [address] 01/14/2015 11:47:27 01/14/2015 12:33:02 care [id number] Uses contraception [id number] MD Lalo Weaver Womens ([facility] 122) [address] [facility] [place] [address] 01/19/2015 15:46:51 01/20/2015 09:49:17 IUD check 032846140 [id number] MD Lalo Weaver Womens ([facility] 122) [address] [facility] [place] [address] 02/11/2015 10:38:39 02/18/2015 18:08:10 IUD check 847032882 Z30.431 [id number] Joan Blas [facility] Lalo Womenjavi ([facility] 122) [address] [facility] [place] [address] 11/03/2015 11:00:12 11/03/2015 14:33:42 detection examination 27983254 Z32.00 IUD check 344040027 Z30. 016 [id number] MD Lalo HURTADO 14 IM [address] [facility] [place] [address] 07/04/2018 09:50:09 07/04/2018 16:26:43 Cervical lymphadenopathy 206629273 R59.0 Had a cough since 02/2018, on and off No traveling. No cat. Weight stable overall. Fatigue - despite sleeping. No dental issues. No focal weakness. Sweaty at times. Irregular periods. Neuro intact. ENT will do US +/- biopsy soon. Labs. Check for mono, syphilis, CMV, CXR. RTC 3mo Disorder o f thyroid gland 83797381 E07.9 Had a cough since 02/2018, on and off. Check TSH [id number] MD Lalo HURTADO 14 IM [address] [facility] [place] [address] 07/27/2018 12:09:33 07/31/2018 15:49:44 Cervical lymphadenopathy 632266813 R59.0 Had a cough since 02/2018, on [...] second ENT opinion. Upper resp iratory infection 71188341 J06.9 Strept and Flu negative. Exam unremarkab le. Conservati ve management . [id number] MD Lalo Chambers 14 OB [address] [facility] [place] [address] 08/29/2018 11:23:12 08/30/2018 09:21:21 Gynecologic examination 60209303 Z01.419 CBE and pelvic exam performedP t is on her menstrual cycle, will RTC for pap smear Venereal d isease screening 538869519 Z11.3 Anemia 268293105 D64.9 Hemorrhoids 16157843 K64 .9 [id number] MD Lalo HURTADO 14 IM [address] [facility] [place] [address] 09/05/2018 12:08:49 09/06/2018 10:44:23 Acute sinusitis 37465814 J01.90 4 days, worsening coughs, chest congestion . Exam sinusitis. Already on antihistam althea, PPI, Augmentin with ENT. Try home Flonase, add mucinex. Mean corpu scular volume below reference range 735244658 R71.8 MCV still low with [employer]. 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 FeS - taking two tab now. Inc to three - RTC 2mo for ferritin check. [id number] MD Lalo HURTADO 14 IM [address] [facility] [place] [address] 11/13/2018 10:37:12 11/27/2018 11:36:00 Cervical lymphadenopathy 479952491 R59.0 06/2018: Had a cough since 02/2018, [...] done biopsy - result benign. Chronic gastritis 704252 9 K29.50 Followed by GI.Chronic gastritic, H pylori infection - pt was treated. Per pt, her esophagus was also dilated. Hemorrhoids 79712161 K64 .9 Followed by Gen sx - candidate for hemorrhoid ectomy. History of Helicobacter pylori infection 4461456867 8458516 Z86.19 Followed by GI - treated [id number] MD Lalo HURTADO 14 IM [address] [facility] [address] [place] [address] 02/13/2019 10:52:03 02/14/2019 08:35:16 Dizziness 256237281 R42 Thyroid was low with Master [employer] recently - pt will be rechecked by [...] ID Guarantor Name 09/05/2018 1 [place] [employer] [place] [employer] Yessica Young [id number] Yessica Mo 01/08/2019 1 [facility] (MEDICAID HMO) [facility] Yessica Young [id number] Yessica Mo 03/12/2019 2 [place] Yessica Young [id number] Yessica Mo 11/30/2020 1 [place] [id number] Luis Antonio Mo [id number] Yessica Mo 01/19/2015 1 [place] [employer] [place] Yessica Young [id number] Yessica Mo 11/03/2015 1 [facility] (MEDICAID HMO) [id number] Yessica Young [id number] Yessica Mo 06/19/2018 1 *SELF PAY* Me [...] pt wants a second opinion Lucero [place], [place] - [facility] 07/31/2018 15:32:25 08/29/2018 text/html Annual GYNReport ed [...] PMDD Ricardo Ramirez MD Attn: Accounting,[address] [place], [address], [facility] 08/29/2018 [...] Domestic Partner Domestic Partner Phone Father Name Copper Miner Status 05/06/20 14 1 A Positive Luis Antonio Mo CLOSED Fetus Data First Name Last Name Admitted to NICU Weight (g) Sex Living Outcome Pediatric Complications Fetus ID Race Codes Race Delivery Type CHASITY ESCAMILLA false 4309.12 4 F Full Term [id number] [id number] White Vaginal Problems Problem Notes Problem Name Start Date End Date Resolution Snomed Code Not e Infective vaginitis 433507616 Maternal care for diminished movements 645595031 Darren Calculation Initial Darren Date Initial Exam [...] Type Weight in lbs Pre/Post Dialysis Refused 203.871982722933 BP Diastolic BP Location Tested BP Systolic BP Type 64 L arm 118 sitting Fetus Heart Rate Present Fetus Movement Comments Flowsheet Date 05/22/2014 Mckinney Score Blood Edema Fundus Height Fundus Units Glucose Ketones Leukocytes Nitrite Labor Signs Protein Cervic Dilation Cervic Effacement Cervic Station neg none none negative neg Type Weight in lbs Pre/Post Dialysis Refused 198.357752273340 BP Diastolic BP Location Tested BP Systolic [...] Type Weight in lbs Pre/Post Dialysis Refused 164.40171020827 BP Diastolic BP Location Tested BP Systolic [...] Type Weight in lbs Pre/Post Dialysis Refused 201.350503932067 BP Diastolic BP Location Tested BP Systolic [...] Type Weight in lbs Pre/Post Dialysis Refused 203.62201440600 BP Diastolic BP Location Tested BP Systolic BP Type 68 128 Fetus Heart Rate Present A 142 Present Fetus Movement A Yes Comments 28 weeks today Flowsheet Date 08/26/2014 Mckinney Score Blood Edema Fundus Height Fundus Units Glucose Ketones Leukocytes Nitrite Labor Signs Protein Cervic Dilation Cervic Effacement Cervic Station 26 cm none Type Weight in lbs Pre/Post Dialysis Refused 203.25573519047 BP Diastolic BP Location Tested BP Systolic BP Type 74 L arm 122 sitting Fetus Heart Rate Present A 146 Present Fetus Movement A Yes Comments Flowsheet Date 09/09/2014 Mckinney Score Blood Edema Fundus Height Fundus Units Glucose Ketones Leukocytes Nitrite Labor Signs Protein Cervic Dilation Cervic Effacement Cervic Station 30 cm none Type Weight in lbs Pre/Post Dialysis Refused 206.875935206046 BP Diastolic BP Location Tested BP Systolic BP Type 60 L arm 120 sitting Fetus Heart Rate Present A 154 Present Fetus Movement A Yes Comments Flowsheet Date 09/23/2014 Mckinney Score Blood Edema Fundus Height Fundus Units Glucose Ketones Leukocytes Nitrite Labor Signs Protein Cervic Dilation Cervic Effacement Cervic Station 32 cm none Type Weight in lbs Pre/Post Dialysis Refused 205.864717366397 BP Diastolic BP Location Tested BP Systolic BP Type 68 110 Fetus Heart Rate Present A 155 Fetus Movement A Yes Comments Flowsheet Date 10/07/2014 Mckinney Score Blood Edema Fundus Height Fundus Units Glucose Ketones Leukocytes Nitrite Labor Signs Protein Cervic Dilation Cervic Effacement Cervic Station none Type Weight in lbs Pre/Post Dialysis Refused 208.132298991804 BP Diastolic BP Location Tested BP Systolic BP Type 78 110 sitting Fetus Heart Rate Present A 154 Fetus Movement A Yes Comments growth scan ordered Flowsheet Date 10/21/2014 Mckinney Score Blood Edema Fundus Height Fundus Units Glucose Ketones Leukocytes Nitrite Labor Signs Protein Cervic Dilation Cervic Effacement Cervic Station 37 cm none Type Weight in lbs Pre/Post Dialysis Refused 213.375789820617 BP Diastolic BP Location Tested BP Systolic BP Type 72 118 sitting Fetus Heart Rate Present A 140 Present Fetus Movement A Yes Comments gbs today. Flowsheet Date 11/04/2014 Mckinney Score Blood Edema Fundus Height Fundus Units Glucose Ketones Leukocytes Nitrite Labor Signs Protein Cervic Dilation Cervic Effacement Cervic Station 37 cm none Type Weight in lbs Pre/Post Dialysis Refused 216.684423863376 BP Diastolic BP Location Tested BP Systolic [...] Type Weight in lbs Pre/Post Dialysis Refused 217.695647633997 BP Diastolic BP Location Tested BP Systolic [...] Type Weight in lbs Pre/Post Dialysis Refused 221.507551974804 BP Diastolic BP Location Tested BP Systolic [...] Type Weight in lbs Pre/Post Dialysis Refused 223.566292603137 BP Diastolic BP Location Tested BP Systolic [...] Estimated Date of Delivery false Thalassemia (Colombian, Rwandan, Mediterranean, Or Background): MCV < 80 false Neural Tube Defect (Meningom yelocele, Spina Bifida, Or Anencephaly) false Congenital Heart Defect false Down Syndrome false Curt-Sachs (eg, Sikhism, Cajun , [place]) false Yung Disease false Sickle Cell Disease [...] Domestic Partner Domestic Partner Phone Father Name Copper Miner Status 06/17/19 15 1 CLOSED Fetus Data First Name Last Name Admitted to NICU Weight (g) Sex Living Outcome Pediatric Complications Fetus ID Race Codes Race Delivery Type 3515.33 8 F Full Term [id number] Vaginal Darren Calculation Initial Darren Date Initial [...]
--- OUTSIDE RECORDS SUMMARY | 2024-11-17 21:51 | XMS_ITS | Data Portability ---
Author Organization [facility] Address [address] [place] [address] Care Team Providers Care Mineral Surveying Technician Name Role Phone [facility] EDUIN HAMMONDS Cargo Worker JILLIAN LAO Primary Care Provider [phone] Assessment Encounter Date Assessment Date Assessment LastModified [...] d. Imaging non-str ess test 2024 [email or web address], [address], [place], [address], 11/15/2024 09:25:55 [place], obstetr ic, follow- up [address], [address], [place], [address], 11/14/2024 20:41:29 [place], obstetr ic, biophys ical profile + non-str ess test [email or web address], [address], [place], [address], 11/14/2024 20:41:29 US, obstetr ic, biophys ical profile + non-str ess test [address], [address], [place], [address], 11/14/2024 20:41:29 US, obstetr ic, follow- up [id number], [address], [place], [address], 11/14/2024 20:41:29 non-str ess test 2024 025 [email or web address] [address], [address], [place], [address], 11/07/2024 07:45:10 US, obstetr ic, biophys ical profile + non-str ess test 2024 025 [facility], [address], [place], [address], 11/06/2024 17:48:20 US, obstetr ic, biophys ical profile + non-str ess test 2024 025 [facility], [address], [place], [address], 11/06/2024 17:48:32 Medication Orders None recorde d. Patient TargetsNo targets recorded. Patient InstructionsNo instructions recorded. Reason for Referral None Reported. Results Created Date Observation Date Name Description Value Unit Range Abnormal Flag Note LastModifiedBy Organization Detail LastModifiedTime 10/10/19 25 10/09/2024 , ayo holley, limit ed No observ ation record ed. [facility] [address], [place], [address], 10/09/2024 17:38:41 10/10/19 25 10/09/2024 US, ayo tric, follo w-up No observ ation record ed. [facility] [address], [place], [address], 10/09/2024 17:38:53 10/10/19 25 10/09/2024 US, ayo tric, follo w-up No observ ation record ed. [email or web address] [address], [place], [address], 10/14/2024 10:19:44 10/23/19 25 10/22/2024 US, obstmickey tric, follo w-up No observ ation record ed. [email or web address] [facility] [address], [place], [address], 10/22/2024 17:16:15 10/23/1910/22/2024 US, obste tric, follo w-up No observ ation record ed. [email or web address] [facility] [address], [place], [address], 10/22/2024 17:16:31 10/23/19 25 10/22/2024 US, obstmickey holley, follo w-up No observ ation record ed. LANAROSALIA [address], [place], [address], 10/29/2024 21:52:03 10/27/19 25 10/23/2024 non-s tress test No observ ation record ed. [email or web address] [facility] [address], [place], [address], 10/26/2024 08:57:06 10/29/19 25 10/23/2024 non-s tress test No observ ation record ed. [facility] [address], [place], [address], 10/28/2024 11:44:35 10/31/19 25 10/30/2024 US, ayo holley, bioph ysica l profi le + non-s tress test No observ ation record ed. [email or web address] [facility] [address], [place], [address], 10/30/2024 13:28:58 10/31/19 25 10/30/2024 US, ayo holley, bioph ysica l profi le + non-s tress test No observ ation record ed. [email or web address] [facility] [address], [place], [address], 10/30/2024 13:29:11 10/31/19 25 10/30/2024 US, obste tric, follo w-up No observ ation record ed. [email or web address] [address], [place], [address], 10/31/2024 18:00:31 11/07/19 25 11/06/2024 US, obste tric, bioph ysica l profi le + non-s tress test No observ ation record ed. [email or web address] [facility] [address], [place], [address], 11/06/2024 17:48:20 11/07/19 25 11/06/2024 US, obste tric, bioph ysica l profi le + non-s tress test No observ ation record ed. [email or web address] [facility] [address], [place], [address], 11/06/2024 17:48:32 11/07/19 25 11/06/2024 non-s tress test No observ ation record ed. [email or web address] [facility] [address], [place], [address], 11/06/2024 17:22:40 11/07/19 25 11/06/2024 US, obste tric, bioph ysica l profi le + non-s tress test No observ ation record ed. [email or web address] [address], [place], [address], 11/11/2024 12:03:01 11/10/19 25 11/09/2024 imagi ng/di agnos tic resul t No observ ation record ed. [address], [place], [address], 11/11/2024 17:42:12 11/13/19 25 11/12/2024 non-s tress test No observ ation record ed. [email or web address] [facility] [address], [place], [address], 11/15/2024 21:56:01 11/14/1911/13/2024 non-s tress test No observ ation record ed. [email or web address] [facility] [address], [place], [address], 11/14/2024 14:45:58 11/14/1911/13/2024 US, obste tric, follo w-up No observ ation record ed. [email or web address] [facility] [address], [place], [address], 11/13/2024 18:14:47 11/14/19 25 11/13/2024 US, obste tric, bioph ysica l profi le + non-s tress test No observ ation record ed. [email or web address] [facility] [address], [place], [address], 11/13/2024 18:14:56 11/14/1911/13/2024 US, obste tric, bioph ysica l profi le + non-s tress test No observ ation record ed. [email or web address] [facility] [address], [place], [address], 11/13/2024 18:15:06 11/14/1911/13/2024 US, obste tric, follo w-up No observ ation record ed. [email or web address] [facility] [address], [place], [address], 11/13/2024 18:15:15 11/14/1911/13/2024 non-s tress test No observ ation record ed. [email or web address] [facility] [address], [place], [address], 11/13/2024 15:40:45 11/14/19 25 11/13/2024 US, obste tric, follo w-up No observ ation record ed. LANA [address], [place], [address], 11/17/2024 13:32:08 Result Notes None recorded. Problems Name Problem SNOMED Code Status Onset Date Resolution Date Notes Provider Name and Address Organization Details Recorded Time Pregnanc y 15488916 Completed 202106/09/2022 Kenyetta Solano null, [facility] 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 3 15:14:45 Hypothyr oidism 51986917 Completed Elikristin Chaveznstieh l [facility] 3 15:14:45 Antenata l care: history of infertil ity 092370208 Completed Eli Carlosnenstieh l [facility], [facility] 3 15:14:46 Group B Streptoc occus carrier 6908456534 103 Completed bacteriu berta Charlotte Scottnstieh l null, [facility] 3 15:14:45 Maternal obesity complica ting pregnanc y, childbir th and the puerperi um, antepart um 8690475807 07 Completed BMI 39- ante testing at 37w Elikristin Chaveznstieh l [facility], [facility] 3 15:14:46 Chronic hyperten allison in obstetri c context 1544748 Completed procardi a , baseline labs, ASA Eli Scottnstieh l [facility] 3 15:14:46 Placenta circumva llata 3341447 Completed Serial growth u/s Eli Chaveznstieh l null, [facility] 3 15:14:45 Pre-ecla mpsia 648635468 Completed Eli Gonzalezharveyanniejoselynluisa alvarado null, [facility] 3 15:14:45 Abnormal cervical Papanico laou smear 790986120 Active 2023 3 lgsil HPV high risk 1 ascus HPV high risk Kenyetta Solano null, [facility] 4 11:59:57 Herpes simplex 58954211 Active 2024 Kenyetta Solano null, [facility] 5 16:40:53 Human papillom a virus infectio n 641964944 Active 2024 Kenyetta Solano null, [facility] 5 16:40:59 Endometr iosis (clinica l) 318325714 Active 2024 Kenyetta Solano null, [facility] 5 16:41:22 Pregnanc y 33052109 Active 2024 Kenyetta Solano [facility], [facility] 5 16:03:06 Twin pregnanc y 64958449 Active 38 wk delivery antenata l testing @ 32wks per [facility] Schedule d rpt 08/27 ONLY Tabatha Flanagan null, [facility] 5 12:20:16 Antenata l care: history of infertil ity 814903783 Active Peter Bryant, DUNIA [address], [place], [address], [place] [facility] 5 13:48:37 Past pregnanc y history of pre-ecla mpsia 6016914065 59695 Active bASA x2 Tabatha Flanagan null, [facility] 5 17:10:40 Large for gestatio n age fetus 849973874 Active less then 30 sec shoulder dystocia Peter Bryant CNM [address], [place], [address], [place] [facility] 5 13:51:09 Past pregnanc y history of shoulder dystocia 347751959 Active Peter Bryant CNM [address], [place], [address], [facility] 5 13:52:04 Chronic hyperten allison in obstetri c context 8606367 Active Peter Bryant CNM [address], [place], [address], [facility] 5 13:52:55 Palpitat ions 44478050 Active Holter monitor faxed to [facility] nt Cardiolo gy 07/29 Tabatha Flanagan null, [facility] 5 14:05:23 Palpitat ions 15815902 Active Holter monitor faxed to [facility] nt Cardiolo gy 3 Tabatha Green null, [facility] 5 14:05:23 Migraine 35691858 Active magnesiu m, Excedrin tension, sumatrip tatum Tabatha Green null, [facility] 5 17:11:50 Migraine 34190989 Active magnesiu m, Excedrin tension, sumatrip tatum Tabatha Green null, [facility] 5 17:11:50 Glucose toleranc e test outside referenc e range 941561364 Active 2024 5 checking blood sugars for 2 week instead for doing 3 hour Kenyetta Solano null, [facility] 17:53:21 Glucose toleranc e test outside referenc e range 844321146 Active 2024 5 checking blood sugars for 2 week instead for doing 3 hour Kenyetta Solano tiffanie, [facility] 5 17:53:21 Gestatio nal diabetes mellitus 25376910 Active 2024 Kenyetta moreno, [facility] 5 11:47:25 Gestatio nal diabetes mellitus 63083103 Active 2024 Kenyetta moreno, [facility] 5 11:47:25 Finding of general energy 889482822 Completed 201807/28/2020 Fatigue; Recorded Elsewher e: No Locat ion: Chaya arevalo [facility] S ource: EHR Circus Train Supervisor mark: N Practi ce ID: 0001 Emmanuel lable Time: 10:45:00 AM Messi Garcia MD [address], [place], [address], [facility] 15:00:00 Acute vaginiti s 69260659 Completed 201807/28/2020 Vaginiti s;Record ed Elsewher e: No Locat ion: Chaya arevalo [facility] S ource: EHR Circus Train Supervisor mark: N Practi ce ID: 0001 Emmanuel lable Time: 10:45:00 AM Messi Garcia MD [address], [place], [address], [facility] 1 15:00:04 Removal of intraute rine device Completed 201807/28/2020 Encounte r for removal of IUD;Earl rded Elsewher e: No Locat ion: Chaya arevalo [facility] S ource: EHR Circus Train Supervisor mark: N Practi ce ID: 0001 Emmanuel lable Time: 10:45:00 AM Messi Garcia MD [address], [place], [address], [facility] 1 15:00:08 Problem Notes None recorded. [...] Peter Bryant, DUNIA [address], [place], [address], [facility] 06/15/2022 16:59:00 023 Colposcopy completed [facility] 06/15/2022 16:38:21 023 Colposcopy completed [facility] 06/15/2022 16:38:49 022 intrauterine artificial insemination completed [facility] 06/26/2021 09:20:58 021 intrauterine artificial insemination completed [facility] 06/17/2021 12:15:01 021 intrauterine artificial insemination completed [facility] 06/17/2021 12:14:55 021 intrauterine [...] Name and Address Organization Details Recorded Time 74903 prednison e medicatio n hives Not available Not available 07/03/2024 8640 RxNorm Peter Bryant CNM [address], [place], [address] [place] [address], P[facility] 5 09:52:22 Medications Name Sig Start [...] Pregnyl 10,000 unit intramusc ular solution Inject 94557 units every day by intramus cular route [...] Prescrib ed Ban e: Yes Loca tion: [facility] M odify By: [email or web address] z Encoun [...] VAIL INJECTIO N INTO RIGHT HIP LOT [id number] EXP 12/2021 Not Available Not Available Not [...] Address Organization Details Last Updated DateTime 11/06/2024 245754.72887 g 133/87 mm[Hg] Sun Aquinoer [facility] 11/06/2024 15:35:27 Date Recorded Body weight Systolic And Diastolic Provider Name and Address Organization Details Last Updated DateTime 11/13/2024 938115.29443 g 127/89 mm[Hg] Sun Sadiq [facility] 11/13/2024 15:38:06 Social History Question Answer Notes LastModified by Organizat ion Details LastModified Time Tobacco Smoking Status Never Smoker Althea Holguin tiffanie, [facility] 06/15/2022 15:31:26 Do You Have An Advance Directive? No Information n ot available 07/28/2020 If You Are , What Was Your Level Of Alcohol Consumption Prior To ? None Information not available 06/15/2022 Are You Blind [...] Type Of Diet Are You Following? REGULAR [email or web address] Information n ot available 08/19/2020 What Is The Highest Grade Or Level Of School You Have Completed Or The Highest Degree You Have Received? [id number] Information not available 07/28/2020 Are There Any Guns Present In Your Home? No Information not available 07/28/2020 What Was The Date Of Your Most Recent Tobacco Screening? 10/23/2024 [email or web address] Information not available 10/23/2024 Have You Ever Been Counseled For Unhealthy Alcohol Use? No [email or web address] Information not available 06/15/2022 Do You Use Protection During Sex? No Information not available 07/28/2020 Do You Use Your Seat Belt Or Car Seat Routinely? Yes Information not available 07/28/2020 Do You Have Smoke And Carbon Monoxide Detectors In Your Home? Yes Information not available 07/28/2020 How Much Tobacco Do You Smoke? No [email or web address] Information not available 12/25/2019 Do You Use [...] other forms of tobacco or nicotine? No [email or web address] Information not available 06/15/2022 What is your level of alcohol consumption? Occasional Information not available 12/25/2019 Do you or have you ever used smokeless tobacco? Never used smokeless tobacco [email or web address] Information not available 06/15/2022 Are you able to walk? YESWOREST [email or web address] Information not available 08/19/2020 Are you able to care for yourself? Yes [email or web address] Information not available 06/15/2022 What is your occupation? [employer] Information not available 07/28/2020 Do you have difficulty dressing or bathing? No [email or web address] Information not available 06/15/2022 Do you or have you ever used e-cigarettes or vape? Never used electronic cigarettes [email or web address] Information not available 06/15/2022 What is your exercise level? Occasional [email or web address] Information not available 12/25/2019 Mental Status Question Answer Note LastModified by Organization D etails LastModified Time Do you feel stressed (tense, restless, nervous, or anxious, or unable to sleep at night)? [id number] [email or web address] Information not available 08/19/2020 Family History Relationship Description Onset Age of this Age Resolved Age Notes LastModified by Organization Details LastModified Time Maternal Grandmother Disorder of thyroid gland [email or web address] Not available 01/26 16:14:56 Mother Female infertility Not available 08/2024 13:51:15 Mother Disorder of thyroid gland [email or web address] Not available 01/26 16:14:56 Father Malignant tumor of pancreas [email or web address] Not available 2024 13:51:15 Brother Malignant neoplasm of prostate [email or web address] Not available 2024 13:51:15 Paternal Grandmother Malignant tumor of breast [email or web address] Not available 01/26 16:14:56 Paternal Grandmother Malignant neoplasm of lung [email or web address] Not available 01/26 16:14:56 Medical History Condition Response Allergies (Food, seasonal, environmental ) N Other Y Breast Cancer N Drug/Latex Allergies/Reactions N Blood Transfusion N Lung Disease N Dermatologic Disorders N [...] SNOMED-CT Code Diagnosis ICD10 Code Diagnosis Note [id number] Peter Bryant CNM [facility] [address] [address] 12/25/2019 10:57:08 12/25/2019 12:38:39 Breast infection 272733025 N61.0 Trying to conceive 48698 9001 Z31.9 [id number] Messi Garcia MD [facility] [address],[place] [address] 06/30/2020 12:07:39 06/30/2020 12:55:49 Pain in pelvis 95900179 R10.2 [id number] Messi Garcia MD [facility] [address],[place] [address] 07/02/2020 12:31:33 07/02/2020 16:54:32 Pain in pelvis 85802277 R10.2 This patient is a 25-year-ol d [...] informed consent process. To check fallopian tubes. [id number] Messi Garcia MD [facility] [address],[place] [address] 07/23/2020 10:07:53 07/23/2020 10:09:56 [id number] Messi Garcia MD [facility] [address],[place] [address] 07/28/2020 13:53:59 07/28/2020 15:27:02 Chest pain 81369189 R07.9 this patient is 25-year-ol d female [...] this patient s visit, including available hand director data upon arrive, temperatur e check and being asked a series of screening questions. All staff wore face coverings during this encounter, as well as provided additional cleaning and sanitizing of all surfaces, including countertop s, pens, chairs, door handles, light switches, etc, prior to and following the patient s visit. [id number] Messi Garcia MD [facility] [address] [address] 08/04/2020 14:07:07 08/04/2020 14:50:37 Abnormal uterine bleeding 5688908744 9100 N93.9 this patient is a 25-year-ol [...] ovulation [place]. [id number] Peter Bryant CNM [facility] [address] [address] 08/19/2020 13:46:09 08/19/2020 15:50:34 Trying to conceive 335202417 Z31.9 [id number] Messi Garcia MD [facility] [address],[place] [address] 09/02/2020 11:05:51 09/02/2020 12:44:09 Female infertility 9819763 N97.9 [id number] Peter Bryant [facility] [address],[place] [address] 09/04/2020 08:09:36 09/04/2020 09:29:50 Artificial insemination 78620300 Z31.83 [id number] Peter Bryant [facility] [address],[place] [address] 09/03/2020 18:20:49 09/03/2020 22:54:04 Trying to conceive 033494363 Z31.9 [id number] Messi Garcia MD [facility] [address] [address] 09/09/2020 17:51:09 09/09/2020 18:07:37 Pain in pelvis 58489482 R10.2 This patient is a 25-year-ol d [...] informed consent process. To check fallopian tubes. [id number] Messi Garcia MD [facility] [address],[place] [address] 09/22/2020 16:45:48 09/22/2020 17:17:04 Pain in pelvis 19952236 R10.2 This patient is a 25-year-ol d [...] informed consent process. To check fallopian tubes. [id number] Messi Garcia MD [facility] [address] [address] 10/01/2020 14:59:50 10/01/2020 15:16:34 Female infertility 1517781 N97.9 [id number] Peter Bryant [facility] [address],[place] [address] 10/01/2020 16:21:54 10/01/2020 16:27:38 Trying to conceive 576510327 Z31.9 [id number] Peter Bryant [facility] [address] [address] 10/02/2020 08:19:49 10/02/2020 09:46:38 Artificial insemination 03292818 Z31.83 [id number] Messi Garcia MD [facility] [address],[place] [address] 10/14/2020 15:52:51 10/14/2020 16:51:20 Pain in pelvis 87900568 R10.2 This patient is a 25-year-ol d [...] informed consent process. To check fallopian tubes. [id number] Peter Bryant CNM [facility] [address],[place] [address] 10/21/2020 17:06:20 10/21/2020 17:33:05 Hypothyroidism 78930253 E03.9 check labs, will adjust meds if needed [id number] Messi Garcia MD [facility] [address] [address] 11/30/2020 13:48:01 11/30/2020 13:52:51 Pain in pelvis 99819697 R10.2 This patient is a 25-year-ol d [...] informed consent process. To check fallopian tubes. [id number] Messi Garcia MD [facility] [address] [address] 12/01/2020 14:00:56 12/01/2020 15:31:30 Pain in pelvis 79439700 R10.2 this patient is a 25-year-ol d [...] face-to-fa ce discussing this very complex topic. [id number] Peter Bryant CNM [facility] [address] [address] 01/22/2021 09:15:38 01/22/2021 10:35:42 Female infertility 6119464 N97.9 Gynecologi c examination 08758845 Z01.419 [id number] Messi Garcia MD [facility] [address],[place] [address] 02/09/2021 09:19:46 02/09/2021 10:04:48 Female infertility 3772419 N97.9 [id number] Peter Bryant [facility] [address],[place] [address] 02/09/2021 14:29:50 02/09/2021 16:50:58 Trying to conceive 501887542 Z31.9 [id number] Peter Bryant [facility] [address],[place] [address] 02/10/2021 09:41:42 02/10/2021 10:12:15 Female infertility 0224051 N97.9 Artificial insemination 74401357 Z31.83 [id number] Messi Garcia MD [facility] [address] [address] 04/28/2021 14:43:43 04/28/2021 15:19:59 Female infertility 0349073 N97.9 [id number] Peter Bryant [facility] [address],[place] [address] 04/28/2021 18:59:10 04/29/2021 09:31:07 Trying to conceive 228514955 Z31.9 [id number] Peter Bryant [facility] [address],[place] [address] 04/29/2021 09:31:15 04/29/2021 10:19:12 Artificial insemination 54116240 Z31.83 [id number] [facility] [address] [address] 05/25/2021 11:53:11 05/25/2021 16:54:31 Reduced libido 2058775 R68.82 Today we discussed trial of Wellbutrin [...] this patient s visit, including available hand director data upon arrive, temperatur e check and being asked a series of screening questions. All staff wore face coverings during this encounter, as well as provided additional cleaning and sanitizing of all surfaces, including countertop s, pens, chairs, door handles, light switches, etc, prior to and following the patient s visit. [id number] Messi Garcia MD [facility] [address] [address] 06/22/2021 14:38:59 06/23/2021 09:16:44 Body mass index 30+ - obesity 945471805 Z68.37 This patient is a 26-year-ol d [...] on the dietitian schedule. Gynecologi c examination 31802513 Z01.419 Abnormal u terine bleeding 6420517675 9100 N93.9 [id number] Messi Garcia MD [facility] [address] [address] 06/25/2021 09:04:11 06/25/2021 09:23:27 Female infertility 0113001 N97.9 [id number] Peter Bryant [facility] [address] [address] 06/25/2021 18:38:25 06/26/2021 09:09:27 Trying to conceive 115218889 Z31.9 [id number] Peter Bryant [facility] [address],[place] [address] 06/26/2021 09:13:57 07/01/2021 15:54:18 Artificial insemination 29269956 Z31.83 [id number] Messi Garcia MD [facility] [address],[place] [address] 07/27/2021 17:11:55 07/27/2021 18:06:16 Uncertain viability of 632265612 O36.80X0 Z3A.01 [id number] Messi Garcia MD [facility] [address],[place] [address] 08/05/2021 09:17:05 08/05/2021 10:16:25 Abdominal pain in early [id number] Z33.1 Z3A.01 [id number] Messi Garcia MD [facility] [address],[place] [address] 08/18/2021 10:17:54 08/18/2021 11:20:00 [id number] [facility] [address],[place] [address] 08/18/2021 10:18:19 08/19/2021 12:30:57 Amenorrhea 38777181 Z31.89 Z31.83 [id number] Pretty Cotton MD [facility] [address],[place] [address] 09/10/2021 14:50:18 09/10/2021 15:34:33 screening 670747120 Z36.82 [id number] Pretty Cotton MD [facility] [address],[place] [address] 1 09/10/2021 14:50:57 09/13/2021 15:22:01 Routine care 181709883 Z34.91 care: history of infertility 103592171 O09.[address] reptococcus carrier 9603990908 103 Z22.330 Hypothyroidism 14305162 E03.9 Maternal o besity complicating , childbirth and the puerperium, antepartum 0101552903 07 O99.211 [id number] Pretty Cotton MD [facility] [address],[place] [address] 09/27/2021 17:43:48 09/28/2021 10:23:00 Chronic hypertension complicating AND/OR reason for care during 20277652 O16.9 [id number] Pretty Cotton MD [facility] [address],[place] [address] 1 10/08/2021 14:49:27 10/08/2021 16:16:40 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 9344897 O16.9 care: history of infertility 807150185 O09.01 Hypothyroidism 08719319 E03.9 [id number] Messi Garcia MD [facility] [address],[place] [address] 11/03/2021 16:29:49 11/03/2021 18:37:35 screening 065792638 Z36.3 Z3A.20 [id number] [facility] [address],[place] [address] 11/03/2021 16:30:15 11/03/2021 18:37:10 Routine care 856858845 Z34.91 Anxiety 93854605 F41.9 [id number] Messi Garcia MD [facility] [address],[place] [address] 1 12/03/2021 15:10:07 12/03/2021 16:20:49 Hypothyroidism 95768621 E03.9 [id number] MD Rhina Zheng [address],[place] [address] 12/03/2021 15:10:54 12/03/2021 17:08:45 Placenta circumvallata 8735744 O43.112 Z36.2 Z3A.24 [id number] MD Rhina Zheng [address],[place] [address] 1 12/29/2021 15:21:10 12/29/2021 16:01:38 Placenta circumvallata 8055502 O43.113 O10.013 O99.213 Z3A.28 [id number] Peter Bryant [facility] [address],[place] [address] 12/29/2021 15:22:44 12/29/2021 17:01:50 Routine care 411253482 Z34.91 - induced hypertension 94159120 O13.9 [id number] Messi Garcia MD [facility] [address],[place] [address] 01/13/2022 13:47:29 01/13/2022 14:39:17 Medical examination for suspected condition 972282241 Z03.79 [id number] Messi Garcia MD [facility] [address],[place] [address] 1 01/13/2022 13:47:50 01/13/2022 15:53:18 Routine care 632447533 Z34.83 [id number] MD Rhina Sanchez [address],[place] [address] 1 01/17/2022 16:24:29 01/17/2022 18:16:59 Threatened premature labor - not delivered 608983194 O47.9 [id number] Pretty Cotton MD [facility] [address],[place] [address] 1 01/17/2022 16:35:15 01/19/2022 15:28:55 Threatened premature labor - not delivered 960070844 O47.9 [id number] Messi Garcia MD [facility] [address],[place] [address] 1 01/26/2022 14:52:57 01/26/2022 15:27:45 Chronic hypertension complicating AND/OR reason for care during 27593809 O16.9 [id number] Messi Garcia MD [facility] [address],[place] [address] 1 01/26/2022 14:54:57 01/26/2022 16:22:26 Placenta circumvallata 4619675 O43.113 Z3A.32 O10.013 [id number] [facility] [address],[place] [address] 1 01/26/2022 14:55:32 01/26/2022 16:39:21 Routine care 075636069 Z34.91 [id number] Mesis Garcia MD [facility] [address],[place] [address] 1 02/02/2022 16:59:59 02/02/2022 17:58:36 Maternal obesity complicating , childbirth and the puerperium, antepartum 1847200186 07 O99.213 [id number] Messi Garcia MD [facility] [address],[place] [address] 02/02/2022 17:00:19 02/02/2022 18:17:03 Chronic hypertension complicating AND/OR reason for care during 66481405 O10.013 Z3A.33 [id number] [facility] [address],[place] [address] 02/02/2022 17:00:45 02/02/2022 18:50:24 Routine care 818524142 Z34.91 [id number] Messi Garcia MD [facility] [address],[place] [address] 1 02/09/2022 16:53:15 02/09/2022 17:49:24 Maternal obesity complicating , childbirth and the puerperium, antepartum 4366886751 07 O99.213 [id number] Messi Garcia MD [facility] [address],[place] [address] 1 02/09/2022 16:53:36 02/09/2022 18:15:36 Chronic hypertension complicating AND/OR reason for care during 55067995 O10.013 O99.213 Z3A.34 [id number] Peter Bryant [facility] [address],[place] [address] 02/09/2022 16:54:04 02/09/2022 18:25:27 Routine care 028188214 Z34.91 [id number] Messi Garcia MD [facility] [address],[place] [address] 02/16/2022 17:00:10 02/16/2022 17:56:48 Chronic hypertension complicating AND/OR reason for care during 40636647 O10.013 O99.213 Z3A.34 [id number] Messi Garcia MD [facility] [address],[place] [address] 1 02/16/2022 17:00:39 02/16/2022 18:07:43 Chronic hypertension complicating AND/OR reason for care during 17437202 O10.013 Z3A.35 O99.213 [id number] Peter Bryant [facility] [address],[place] [address] 1 02/16/2022 17:01:03 02/16/2022 18:20:17 Routine care 862590932 Z34.91 [id number] Messi Garcia MD [facility] [address],[place] [address] 1 02/18/2022 15:23:24 02/18/2022 15:53:12 Reduced movement 251209960 O36.8199 [id number] [facility] [address],[place] [address] 1 02/23/2022 16:45:10 02/23/2022 18:18:35 Routine care 806781820 Z34.91 Large for gestation age fetus 576265512 O36.63X0 [id number] Messi Garcia MD [facility] [address],[place] [address] 02/23/2022 16:42:55 02/23/2022 17:12:22 Chronic hypertension complicating AND/OR reason for care during 20421286 O10.013 Z3A.35 O99.213 [id number] Messi Garcia MD [facility] [address],[place] [address] 1 02/23/2022 16:43:28 02/23/2022 17:56:35 Chronic hypertension complicating AND/OR reason for care during 45658236 O10.013 O99.213 Z3A.36 [id number] Pretty Cotton MD [facility] [address],[place] [address] 03/16/2022 14:15:55 03/17/2022 16:13:50 Pain in pelvis 18573961 R10.2 [id number] Messi Garcia MD [facility] [address],[place] [address] 1 03/17/2022 13:34:56 03/17/2022 14:02:57 Pain in pelvis 53902896 R10.2 this patient is a 25-year-ol d [...] face-to-fa ce discussing this very complex topic. [id number] Messi Garcia MD [facility] [address],[place] [address] 03/17/2022 13:35:31 03/18/2022 13:49:15 Pain in pelvis 30878228 R10.2 patient is a 27-year-ol d female [...] We spent over 20 minutes face-to-fa ce. 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 restart lexapro, to ed if any suicidal thoughts, reviewed se risks and benefits f/u 6 week med check if unavailabl e can do by phone Low grade squamous intraepithelial lesion on cervical Papanicolaou smear 1516822664 9105 R87.612 f/u pending pathology [id number] Peter Bryant CNM [facility] [address],[place] [address] 1 08/16/2023 11:38:58 08/16/2023 13:55:15 Pain in pelvis 78010542 R10.2 also start pelvic floor pT Gynecologi c examination 79912342 Z01.419 [id number] Messi Garcia MD [facility] [address],[place] [address] 08/22/2023 11:28:17 08/22/2023 12:06:29 Pain in pelvis 84475683 R10.2 patient is a 27-year-ol d female [...] We spent over 20 minutes face-to-fa ce. [id number] Messi Garcia MD [facility] [address],[place] [address] 04/23/2024 09:16:05 04/23/2024 10:09:58 screening 107006936 Z36.87 O30.049 Z3A.01 [id number] Messi Garcia MD [facility] [address],[place] [address] 1 05/10/2024 15:16:46 05/10/2024 16:01:31 [id number] Peter Bryant CNM [facility] [address],[place] [address] 05/10/2024 15:17:03 05/10/2024 16:51:44 Amenorrhea 68206239 Z31.89 Z31.83 Dichorioni c diamniotic twin 271131265 O30.049 reviewed US plan us at 12 weeksnipt at 10 weeks with labsawait pap until pp visitrevie wed precaution s and educationh x preeclamps ia without severe features last [id number] Messi Garcia MD [facility] [address] [address] 05/21/2024 11:09:17 05/21/2024 12:05:12 Threatened miscarriage 93201223 O20.0 O30.041 Z3A.09 [id number] Messi Garcia MD [facility] [address],[place] [address] 1 05/23/2024 17:26:08 05/24/2024 10:31:39 Threatened miscarriage 09176352 O20.0 O30.041 Z3A.09 [id number] Messi Garcia MD [facility] [address],[place] [address] 1 05/23/2024 18:31:17 05/24/2024 10:33:13 Pain in pelvis 54174467 R10.2 this patient is a 29-year-ol d [...] is to contact us if pain worsens. [id number] Messi Garcia MD [facility] [address] [address] 05/29/2024 10:21:34 05/29/2024 11:12:31 condition affecting obstetrical care of mother 444186100 O36.8910 Z3A.10 [id number] Messi Garcia MD [facility] [address],[place] [address] 06/03/2024 16:41:37 06/04/2024 14:32:45 screening 269811065 Z36.82 Z3A.11 [id number] Peter Bryant CNM [facility] [address],[place] [address] 06/05/2024 14:45:02 06/06/2024 16:44:18 Nausea and vomiting 29260592 R11.2 Migraine 03609282 G43.90 9 Routine an tenatal care 198995569 Z34.91 Twin 56384986 O30.009 [id number] Messi Garcia MD [facility] [address],[place] [address] 06/12/2024 17:23:11 06/12/2024 18:08:31 Medical examination for suspected condition 075223767 Z03.72 Z3A.12 [id number] Messi Garcia MD [facility] [address],[place] [address] 07/01/2024 16:17:41 07/01/2024 17:36:13 Dichorionic diamniotic twin 711041223 O30.042 Z3A.15 [id number] Peter Bryant CNM [facility] [address],[place] [address] 07/03/2024 09:17:02 07/03/2024 09:55:31 Gestation period, 15 weeks 2184996 Z3A.15 [id number] ALEC WILKINSON MD [facility] [address],[place] [address] 1 07/08/2024 10:41:29 07/08/2024 11:38:56 Pruritic rash 56341796 L28.2 Dichorioni c diamniotic twin 808804551 O30.049 Chronic hy pertension complicating AND/OR reason for care during 46118647 O16.9 Gestation period, 16 weeks 12443069 Z3A.16 [id number] Messi Garcia MD [facility] [address],[place] [address] 1 07/12/2024 10:38:28 07/12/2024 11:50:01 [id number] Peter Bryant CNM [facility] [address],[place] [address] 1 07/31/2024 16:35:21 08/01/2024 09:45:58 Gestation period, 19 weeks 32658444 Z3A.19 Dichorioni c diamniotic twin 748342565 O30.049 Gastroesop hageal reflux disease 441913193 K21.9 [id number] Peter Bryant [facility] [address],[place] [address] 08/09/2024 12:12:22 08/09/2024 14:11:25 Pain in pelvis 84906466 R10.2 start physical therapy [id number] Messi Garcia MD [facility] [address],[place] [address] 1 08/22/2024 12:06:07 08/22/2024 13:36:01 Dichorionic diamniotic twin 087329291 O30.042 O36.8120 Z3A.23 [id number] Peter Bryant [facility] [address],[place] [address] 08/28/2024 14:16:16 08/30/2024 10:02:02 [id number] Peter Bryant [facility] [address],[place] [address] 08/29/2024 09:57:22 08/30/2024 10:26:31 Gestation period, 24 weeks 335241097 Z3A.24 [id number] Messi Garcia MD [facility] [address],[place] [address] 1 09/18/2024 11:30:12 09/18/2024 12:33:22 Dichorionic diamniotic twin 999750255 O30.042 O99.891 Z3A.26 [id number] Peter Bryant [facility] [address],[place] [address] 1 09/27/2024 14:05:42 09/27/2024 14:47:06 Gestation period, 28 weeks 98491775 Z3A.28 [id number] Messi Garcia MD [facility] [address],[place] [address] 1 10/09/2024 13:51:09 10/09/2024 15:10:27 Dichorionic diamniotic twin 729754165 O30.043 O32.1XX2 Z36.2 Z3A.29 [id number] Peter Bryant [facility] [address],[place] [address] 10/09/2024 13:51:24 10/09/2024 16:46:13 Gestation period, 29 weeks 40957948 Z3A.29 [id number] Messi Garcia MD [facility] [address],[place] [address] 10/22/2024 11:49:29 10/22/2024 13:06:50 Dichorionic diamniotic twin 223168323 O30.043 O24.410 O13.3 Z3A.31 [id number] Peter Bryant [facility] [address],[place] [address] 10/23/2024 14:57:19 10/27/2024 19:34:15 Twin 50688480 O30.009 [id number] [facility] [address],[place] [address] 1 10/23/2024 14:57:44 10/23/2024 16:42:04 Gestation period, 31 weeks 29342473 Z3A.31 [id number] Messi Garcia MD [facility] [address],[place] [address] 1 10/30/2024 11:49:15 10/30/2024 12:53:32 Dichorionic diamniotic twin 225562939 O30.043 O24.410 O16.3 Z3A.32 [id number] Peter Bryant [facility] [address],[place] [address] 10/30/2024 11:49:41 10/30/2024 13:44:54 Gestation period, 32 weeks 6184413 Z3A.32 [id number] Messi Garcia MD [facility] [address] 1 11/06/2024 14:02:15 11/06/2024 15:08:32 Dichorionic diamniotic twin 144209473 O30.043 O24.414 O24.410 [id number] ALEC WILKINSON MD [facility] [address],[place] [address] 11/06/2024 14:02:26 11/06/2024 17:33:51 Chronic hypertension complicating AND/OR reason for care during 76719326 O10.919 [id number] Peter Bryant [facility] [address],[place] [address] 11/06/2024 14:02:37 11/06/2024 16:26:16 Gestation period, 33 weeks 82637400 Z3A.33 Dichorioni c diamniotic twin 878216746 O30.043 [id number] Messi Garcia MD [facility] [address],[place] [address] 1 11/13/2024 13:58:59 11/13/2024 15:10:18 Dichorionic diamniotic twin 292984383 O30.043 O24.410 O16.3 O99.213 Z3A.34 [id number] [facility] [address],[place] [address] 1 11/13/2024 13:59:12 11/13/2024 15:41:29 Chronic hypertension complicating AND/OR reason for care during 49654952 O10.919 [id number] [facility] [address],[place] [address] 11/13/2024 13:59:25 11/13/2024 16:05:11 Gestation period, 34 weeks 66573588 Z3A.34 Health Concerns Section Related Observation LastModified by Organization Detai ls LastModified Time None Recorded Concern Status LastModified by Organization Details LastModified Time None Recorded Advance Directives Directive N: Payers Insurance Date Sequence Insurance Name Policy Number Policy Steele Covered Member ID Steele Member ID Guarantor Name 05/10/2024 2 [facility] Chjc Xbb [id number] Yessica M Corzine 05/18/2021 1 [facility] [id number] Luis Antonio A Corzine [id number] Yessica M Corzine 06/15/2022 *SELF PAY* Me kartik M Corzine 08/31/2020 2 [facility] Luis Antonio Corzine [id number] Yessica M Corzine 08/31/2020 3 [facility] Jospeh Corzine [id number] Yessica M Corzine 09/04/2020 2 [facility] Luis Antonio Corzine [id number] Yessica M Corzine 09/23/2020 2 [facility] Jospeph Corzine [id number] Yessica M Corzine 11/17/2024 1 [facility] [id number] Luis Antonio A Corzine [id number] Yessica M Corzine 05/10/2024 3 [facility] [id number] Vxbn FB BC [id number] Yessica M Corzine OBGyn Episode Ob Episode Information Episode Created Date Number of Fetuses Patient Bloodtype Patient rh Status Prepregnancy Weight lbs Domestic Partner Domestic Partner Phone Father Name Optimization Consultant Status 12/25/19 20 1 CLOSED Fetus Data [...] Domestic Partner Domestic Partner Phone Father Name Optimization Consultant Status 12/25/19 20 1 CLOSED Fetus Data [...] Domestic Partner Domestic Partner Phone Father Name Optimization Consultant Status 09/11/19 22 1 A Positive 221 CLOSED Fetus Data First Name Last Name Admitted to NICU Weight (g) Sex Living Outcome Pediatric Complications Fetus ID Race Codes Race Delivery Type 4224.07 55 M true Full Term [id number] Vaginal Delivery Problems Problem Notes TSH WNL/A+/Ha1c/CBC WNL Problem Name Start Date End Date Resolution Snomed Code Not e Hypothyroidism 27665230 care: history of infertility 999085980 Group B Streptococcus carrier 2692203726369 bacteriuria Maternal obesity complicating , childbirth and the puerperium, antepartum 503930720560 BMI 39- ante testing at 37w 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 1030338 maia ellsworth , baseline labs, ASA Placenta circumvallata 4746546 Serial growth u/s Pre-eclampsia 424086887 Darren Calculation Initial Darren Date Initial Exam [...] Date Ultra Sound Latest Days Gestation 0 [email or web address] 09/13/2021 03/23/20 22 0 Pre- Flowsheet Flowsheet Date 09/10/2021 Mckinney Score Blood Edema Fundus Height Fundus Units Glucose Ketones Leukocytes Nitrite Labor Signs Protein Cervic Dilation Cervic Effacement Cervic Station neg none Type Weight in lbs Pre/Post Dialysis Refused Weight 225.189065351486 BP Diastolic BP Location Tested BP Systolic [...] Weight in lbs Pre/Post Dialysis Refused Weight 226.504129888565 BP Diastolic BP Location Tested BP Systolic [...] Weight in lbs Pre/Post Dialysis Refused Weight 224.392404693891 BP Diastolic BP Location Tested BP Systolic [...] Weight in lbs Pre/Post Dialysis Refused Weight 230.320493174235 BP Diastolic BP Location Tested BP Systolic [...] Weight in lbs Pre/Post Dialysis Refused Weight 234.346226119104 BP Diastolic BP Location Tested BP Systolic [...] Weight in lbs Pre/Post Dialysis Refused Weight 235.633304231726 BP Diastolic BP Location Tested BP Systolic [...] Weight in lbs Pre/Post Dialysis Refused Weight 239.521412304115 BP Diastolic BP Location Tested BP Systolic [...] Weight in lbs Pre/Post Dialysis Refused Weight 240.126291460240 BP Diastolic BP Location Tested BP Systolic [...] Weight in lbs Pre/Post Dialysis Refused Weight 242.515574692732 BP Diastolic BP Location Tested BP Systolic [...] Weight in lbs Pre/Post Dialysis Refused Weight 243.961245277844 BP Diastolic BP Location Tested BP Systolic [...] Weight in lbs Pre/Post Dialysis Refused Weight 242.989568825502 BP Diastolic BP Location Tested BP Systolic [...] Weight in lbs Pre/Post Dialysis Refused Weight 246.184418312975 BP Diastolic BP Location Tested BP Systolic [...] Weight in lbs Pre/Post Dialysis Refused Weight 246.881940271970 BP Diastolic BP Location Tested BP Systolic [...] Weight in lbs Pre/Post Dialysis Refused Weight 211.769131173171 BP Diastolic BP Location Tested BP Systolic [...] Weight in lbs Pre/Post Dialysis Refused Weight 211.561255726352 BP Diastolic BP Location Tested BP Systolic BP Type 86 L arm 126 sitting Fetus Heart Rate Present Fetus Movement Comments Flowsheet Date 04/08/2022 Mckinney Score Blood Edema Fundus Height Fundus Units Glucose Ketones Leukocytes Nitrite Labor Signs Protein Cervic Dilation Cervic Effacement Cervic Station Type Weight in lbs Pre/Post Dialysis Refused Weight 212.53382719124 BP Diastolic BP Location Tested BP Systolic BP Type 84 134 Fetus Heart Rate Present Fetus Movement Comments Flowsheet Date 05/27/2022 Mckinney Score Blood Edema Fundus Height Fundus Units Glucose Ketones Leukocytes Nitrite Labor Signs Protein Cervic Dilation Cervic Effacement Cervic Station Type Weight in lbs Pre/Post Dialysis Refused Weight 221.537292102565 BP Diastolic BP Location Tested BP Systolic [...] Estim ated Date of Delivery false Thalassemia (Andorran, Icelandic, Mediterranean, Or Background): MCV < 80 false Neural Tube Defect (Meningomyelocele, Spina Bifi da, Or Anencephaly) false Congenital Heart Defect false Down Syndrome false Curt-Sachs (eg, Episcopalian, Cajun, Moroccan-[place]) f alse Yung Disease false Sickle Cell [...] Domestic Partner Domestic Partner Phone Father Name Optimization Consultant Status 06/05/19 25 2 A Positive 198 Gabriel Mo OPEN Fetus Data First Name Last Name Admitted to NICU Weight (g) Sex Living Outcome Pediatric Complications Fetus ID Race Codes Race Delivery Type [id number] Problems Problem Notes Anatomy with MFM - 07/31/24 1 300 [facility] U/S & OV [facility] MF 08/27/24 US only 1:00PM Problem Name Start Date End Date Resolution Snomed Code Not e care: history of infertility 383245898 Past history of shoulder dystocia 559380199 Large for gestation age fetus 942653862 less then 30 se c shoulder dystocia Past history of pre-eclampsia 660860062627896 bASA x2 Migraine 82068257 magnesium, Excedrin tension, sumatriptan 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 6099039 Palpitations 95491282 Holter monitor faxed to [facility] 07/29 Gestational diabetes mellitus 10/10/2024 71306893 Glucose tolerance test outside reference range 10/01/2024 219063289 10/01/2024 ch ecking blood sugars for 2 week instead for doing 3 hour Twin 12502115 38 wk deliveryantenatal testing @ 32wks per [facility] Scheduled rpt 08/27 us ONLY [...] Weight in lbs Pre/Post Dialysis Refused Weight 207.026188128154 BP Diastolic BP Location Tested BP Systolic [...] disability paperwork. will plan on referral to [facility] for anatomy and history of HTN/preeclampsia, [...] Type Weight in lbs Pre/Post Dialysis Refused 214.480495600116 BP Diastolic BP Location Tested BP Systolic [...] Weight in lbs Pre/Post Dialysis Refused Weight 216.857424829242 BP Diastolic BP Location Tested BP Systolic [...] No bleeding. Will send for anatomy at [facility]. Will measure for belly band [...] Type Weight in lbs Pre/Post Dialysis Refused 220.286779525160 BP Diastolic BP Location Tested BP Systolic BP Type 92 152 53 114 Fetus Heart Rate Present Fetus Movement A Yes B Yes Comments Patient is having headaches, pain, contractions, swelling, Had elevated heart rate over the weekend and get heart moniter on , 08/08/24. saw [facility] this morning rec 2 bASA, will rpt anatomy in 4 weeks, precautions and education f/u 4 weeks Flowsheet Date 08/09/2024 Mckinney Score Blood Edema Fundus Height Fundus Units Glucose Ketones Leukocytes Nitrite Labor Signs Protein Cervic Dilation Cervic Effacement Cervic Station neg none none neg Type Weight in lbs Pre/Post Dialysis Refused 227.121594605324 BP Diastolic BP Location Tested BP Systolic [...] Weight in lbs Pre/Post Dialysis Refused Weight 229.550469672697 BP Diastolic BP Location Tested BP Systolic BP Type 89 133 Fetus Heart Rate Present Fetus Movement A Yes B Yes Comments Patient is having pressure, contractions and swelling. Flowsheet Date 08/29/2024 Mckinney Score Blood Edema Fundus Height Fundus Units Glucose Ketones Leukocytes Nitrite Labor Signs Protein Cervic Dilation Cervic Effacement Cervic Station Type Weight in lbs Pre/Post Dialysis Refused 232.90225432769 BP Diastolic BP Location Tested BP Systolic [...] Type Weight in lbs Pre/Post Dialysis Refused 236.158491213249 BP Diastolic BP Location Tested BP Systolic [...] Type Weight in lbs Pre/Post Dialysis Refused 234.523054915107 BP Diastolic BP Location Tested BP Systolic BP Type 87 138 Fetus Heart Rate Present Fetus Movement A Yes B Yes Comments Patient is having pain and c ontractions and swelling. 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 [facility], eduction and precautions f/u [...] Weight in lbs Pre/Post Dialysis Refused Weight 241.027159823986 BP Diastolic BP Location Tested BP Systolic BP Type 82 125 Fetus Heart Rate Present Fetus Movement Comments Flowsheet Date 10/23/2024 Mckinney Score Blood Edema Fundus Height Fundus Units Glucose Ketones Leukocytes Nitrite Labor Signs Protein Cervic Dilation Cervic Effacement Cervic Station neg trace Type Weight in lbs Pre/Post Dialysis Refused [id number] BP Diastolic BP Location Tested BP Systolic [...] Type Weight in lbs Pre/Post Dialysis Refused 248.830025365623 BP Diastolic BP Location Tested BP Systolic BP Type 87 L arm 133 sitting Fetus Heart Rate Present Fetus Movement A Yes B Yes Comments reviewed US, discussed PTL, taking procardia xl daily and procardia 10 mg at hs for breakthrough, discussed with dr. wilkinsno, plan 37 week IOL if doesn't deliver [...] Type Weight in lbs Pre/Post Dialysis Refused 238.110017709481 BP Diastolic BP Location Tested BP Systolic [...]
[2024-11-17 21:58] VITALS: BMI 39.6
[2024-11-17 22:01] VITALS: BP 132/81; PULSE 99
[2024-11-17 22:16] VITALS: BP 143/99; PULSE 111
[2024-11-17 22:31] VITALS: BP 149/97; PULSE 99
--- NOTE | 2024-11-20 07:40 | PM.OBTRLD ---
OB - Triage/Final Diagnosis Visit Information Date of evaluation: 11/17/24 Reason for evaluation: threatened labor Comments/Additional reasons for admission: I have assessed the risk for this patient, Yessica Mo, and determined that she would benefit from observation care.
== END 2024-11-17 22:45 | disposition home or self-care (01) ==
PROVIDERS: Admitting Provider Obstetrics & Gynecology; Visit Provider Obstetrics & Gynecology
DX: O47.1 False labor at or after 37 completed weeks of gestation (principal); Z3A.35 35 weeks gestation of pregnancy
CPT/HCPCS: G0378; G0379

== ENCOUNTER 2024-11-19 22:11 | Observation (INO) | payer OTHER, SELFPAY ==
[2024-11-20] VITALS (80 sets, daily range): BP systolic 110–148; BP diastolic 52–88; PULSE 64–116; TEMP 36.6; O2SAT 94–100; BMI 39.2
--- OUTSIDE RECORDS SUMMARY | 2024-11-20 00:12 | XMS_ITS | Encounter Summary ---
Author Organization [facility] Address [address] [place] [address] Phone Care Team Providers Care Observer Electrical Prospecting Name Role Phone Manda Singh MD Unavailable [phone] Scooter White DO Primary Care Provider Malik Cates MD Unavailable Ulices Marino MD Unavailable Yon Gutierrez MD Primary Care Provider Georgina Fontenot APRN, [facility] Unavailable [phone] Encounter Details Date Type Department Care Team (Late st Contact Info) Description 07/26/2021 [facility] [address] [place] [address] Edita Garza, TRUNG, TRANSACTIONAL ATTORNEY [address] [place] [address] Encounter for pre-employment examination Social [...] >=1.1 AI 07/26/2021 10:00 PM CDT [facility] Blood No Phlebotomy Charged / Unknown 07/26/2021 9:00 AM CDT 07/26/2021 2:15 PM CDT Narrative [facility] - 07/26/2021 10:00 PM CDT <= 0.8 Negative. No detectable VZV IgG antibody. 0.9 - 1.0 Equivocal >=1.1 Positive Antibody testing was performed by multiplex flow immunoassay on the BioPlex platform. Edita L Behrends BLOOD TESTER FOWL, TRANSACTIONAL ATTORNEY IMMUNOLOGY ORDERABL ES Final Result Performing Organization Address [facility] de Phone Number [facility] [address] [place] [address], [place] * (ABNORMAL) RUBEOLA (MEASLES) IGG (07/26/2021 9:00 AM CDT) MEASLES AB IGG 0.7(L) >=1.1 AI 07/26/2021 10:00 PM CDT [facility] Blood No Phlebotomy Charged / Unknown 07/26/2021 9:00 AM CDT 07/26/2021 2:15 PM CDT Narrative [facility] - 07/26/2021 10:00 PM CDT <= 0.8 Negative. No detectable Measles IgG antibody. 0.9 - 1.0 Equivocal >=1.1 Positive Antibody testing was performed by multiplex flow immunoassay on the BioPlex platform. Edita L Behrends BLOOD TESTER FOWL, TRANSACTIONAL ATTORNEY IMMUNOLOGY ORDERABL ES Final Result Performing Organization Address [facility] de Phone Number [facility] [address] [place] [address], [place] * RUBELLA IMMUNITY IGG (07/26/2021 9:00 AM CDT) [facility]LLA IMMUNITY Immune Immune, Invalid 07/26/2021 10:00 PM CDT [facility] Blood No Phlebotomy Charged / Unknown 07/26/2021 9:00 AM CDT 07/26/2021 2:15 PM CDT Narrative [facility] - 07/26/2021 10:00 PM CDT Antibody testing was performed by multiplex flow immunoassay on the BioPlex platform. us Edita Garza BLOOD TESTER FOWL, TRANSACTIONAL ATTORNEY CHEMISTRY ORDERABLE S Final Result Performing Organization Address [facility] Co de Phone Number [facility] [address] [place] [address], [place] * MUMPS IGG (07/26/2021 9:00 AM CDT) Mumps Ab IgG 1.2 >=1.1 AI 07/26/2021 10:00 PM CDT [facility] Blood No Phlebotomy Charged / Unknown 07/26/2021 9:00 AM CDT 07/26/2021 2:15 PM CDT Narrative [facility] - 07/26/2021 10:00 PM CDT <= 0.8 Negative. No detectable Mumps IgG antibody. 0.9 - 1.0 Equivocal >=1.1 Positive Antibody testing was performed by multiplex flow immunoassay on the BioPlex platform. us Edita Garza BLOOD TESTER FOWL, TRANSACTIONAL ATTORNEY IMMUNOLOGY ORDERABL ES Final Result Performing Organization Address [facility] Co de Phone Number [facility] [address] [place] [address], [place] * QUANTIFERON-TB GOLD PLUS (07/26/2021 9:00 AM CDT) NIL CONTROL 0.04 <8.01 IU/mL 07/28/2021 1:01 PM CDT [facility] TB ANTIGEN 1 0.00 <0.35 IU/mL 07/28/2021 1:01 PM CDT [facility] TB ANTIGEN 2 0.00 <0.35 IU/mL 07/28/2021 1:01 PM CDT [facility] MITOGEN CONTROL 9.64 >0.49 IU/mL 07/29/19 1:01 PM CDT [facility] INTEPRETATION TB NEGATIVE NEGATIVE, NEGATIVE (TB antigen response less than 25% of internal negative control value) 07/28/2021 1:01 PM CDT [facility] Comment:No immune response t o Mycobacterium tuberculosis antigens was noted. M. tuberculosis infection unlikely. Blood No Phlebotomy Charged / Unknown 07/26/2021 9:00 AM CDT 07/26/2021 2:15 PM CDT Narrative [facility] - 07/28/2021 1:01 PM CDT A [...] immunocompromised individuals. https://www.cdc.gov/tb/publications/guidelines/testing.htm us Edita L Behrends BLOOD TESTER FOWL, TRANSACTIONAL ATTORNEY IMMUNOLOGY ORDERABL ES Final Result Performing Organization Address [facility] Co de Phone Number [facility] [address] [place] [address], [place] * HEPATITIS B SURFACE ANTIBODY (HBSAB) (07/26/2021 9:00 AM CDT) HEPATITIS B SURFACE ANTIBODY 8.33 mIU/mL [facility] ARCH [id number] 07/27/2021 12:02 AM CDT [facility] Comment: Grayzone Range: >=8.00 to <=12.00 The immune status of the individual should be further assessed considering other factors, such as clinical status, follow-up testing, associated risk factors and the use of additional diagnostic information. Blood No Phlebotomy Charged / Unknown 07/26/2021 9:00 AM CDT 07/26/2021 2:15 PM CDT us Edita Garza BLOOD TESTER FOWL, TRANSACTIONAL ATTORNEY CHEMISTRY ORDERABLE S Final Result Performing Organization Address [facility] Co de Phone Number [facility] [address] [place] [address], [place] documented in this encounter Visit Diagnoses Diagnosis Encounter for pre-employment examination Health examination of defined subpopulation documented in this encounter Additional Health Concerns Assessment Noted Time PHQ-9 Depression Total Score: 0 02/11/20 20 12:57 PM CDT documented as of this encounter Care Teams Observer Electrical Prospecting Relationship Specialty Start Date End Date Scooter White DO [address] [place] [address] [place] [address] PCP - General Internal Medicine 03/17/21 06/22/23 Yon Gutierrez MD [address] [place] [address] [address] PCP - General Family Medicine 06/23/23 Manda Singh MD Obstetrics & Gynecology 02/11/20 Malik Cates MD [address] [address] Consulting Physician Endocrinology 12/13/21 Ulices Marino MD [address] [address] Consulting Physician Colon and Rectal Surgery 07/06/22 Georgina Fontenot APRN, [facility] [address] [place] [address] Nurse Practitioner Advanced Practice Nurse 09/25/24 documented as of this encounter
--- OUTSIDE RECORDS SUMMARY | 2024-11-20 00:12 | XMS_ITS | Clinical Summary ---
Author Organization [facility] Address [address] [facility] [address] [place] [address] Phone Care Team Providers Care Punch Hand Name Role Phone Manda Singh MD Unavailable [phone] Malik Cates MD Unavailable Ulices Marino MD Unavailable Yon Gutierrez MD Primary Care Provider Georgina Fontenot ALARM TECHNICIAN, FAMILY SERVICES WORKER Unavailable [phone] Allergies Active Allergy Reactions Criticality Noted Date [...] 97.5 kg (215 lb) 04/19/2023 8:07 AM RESOLUTION REP Height 165.1 cm (5' 5) 04/19/2023 8:07 AM RESOLUTION REP Body Mass Index 35.78 04/19/2023 8:07 AM RESOLUTION REP Plan of Treatment Health Maintenance Due Date Last Done Comments Hepatitis C Virus (HCV) Screening 1993 Human Papillomavirus (HPV) Immunization (1 - 3-dose series) 01/07/2008 Pap Smear 2014 Hepatitis B Immunization (2 of 3 - 19+ 3-dose series) 11/11/2019 10/14/2019 Cervical Cancer Screening (CCS) 2023 HPV/Cotest 2023 SARS-COV-2 Immunization ( - season) 2024 08/06/2021, 07/16/2021 Influenza Immunization (#1) [...] this topic Medical Devices Implanted Type Area Gate Watchman Device Identifier Shelf Expiration Date Model / Serial / Lot Tube Ventilation 5mm Carey Triune - [id number] Implanted:Qty: 1 on 11/05/2018 by Jordon Deng MD at [facility] IMPLANT Left: Ear [employer] 04/06/2020 510-122 / [id number] / [id number] Description:Ear tubes came f rom the same package Tube Ventilation 5mm Carey Triune - [id number] Implanted:Qty: 1 on 11/05/2018 by Jordon Deng MD at [facility] IMPLANT Right: Ear [employer] 04/06/2020 510-122 / 510-122 / [id number] Description:Ear tubes came f rom the same package Insurance * Guarantor: [facility] Account Type Relation to Patient Date of Phone Billing Address Institutional Other [address] [place] [address] Care Teams Punch Hand Relationship Specialty Start Date End Date Yon Gutierrez MD [address] [address] PCP - General Family Medicine 06/23/23 Manda Singh MD Obstetrics & Gynecology 02/11/20 Malik Cates MD #[address] [id number] Consulting Physician Endocrinology 12/13/21 Ulices Marino MD [address] [address] Consulting Physician Colon and Rectal Surgery 07/06/22 Georgina Fontenot, ALARM TECHNICIAN, FAMILY SERVICES WORKER [address] [place] [address] Nurse Practitioner Advanced Practice Nurse 09/25/24
--- OUTSIDE RECORDS SUMMARY | 2024-11-20 00:12 | XMS_ITS | Encounter Summary ---
Author Organization [facility] Address [address] [place] [address] Care Team Providers Care Home Improvement Contractor Name Role Phone Scooter White DO Primary Care Provider [phone] Encounter Details Date Type Department Care Team (Late st Contact Info) Description 11/06/2018 Lab Requisition [facility] Care Pathology Lab [address] [place] [address] Cindi Herrera MD [address] [place] [address] Enlarged lymph nodes Social History Tobacco Use Types Packs/Day Years Used Date Smoking Tobacco: Never Smokeless Tobacco: Never Alcohol Use Standard Drinks/Week Comments No 0 (1 standard drink = 0.6 oz pur e alcohol) Comments No Sex and Gender Information Value Date Recorded Sex Assigned at Not on file Legal Sex Female 1:08 PM SLOOP CAPTAIN Gender Identity Not on file Sexual Orientation [...] AM CDT) Case Report Flow Cytometry Case: [id number] Authorizing Provider: Cindi Herrera MD Collected: 11/05/2018 11:02 AM Pathologist: Alexa Weinberg MD Received: 11/06/2018 02:01 PM Specimen: Cervical Lymph Node , Left 9 5:33 PM T [facility] PATHOLOGY LAB Final Diagnosis Lymph node, left cervical, flow cytometric immunophenotypic analysis: - No evidence of non-Hodgkin lymphoma. - See interpretation. 9 5:33 PM [facility] PATHOLOGY LAB at 1733 CDT Flow [...] required. KR 9 5:33 PM [facility] Flow Cytometry Results Differential Result Comment Flow Cell Count /uL [id number] Total Viability % 86.0 Lymphocytes % 97 Dim CD45 Region % 0 Monocytes % 1 Granulocytes % 1 9 5:33 PM [facility] Reason for test Enlarged lymph nodes 785.6 9 5:33 PM [facility] Client Specimen ID # [id number] 9 5:33 PM [facility] Number of markers 16 were performed. A Flow CD3 A Flow CD10 A Flow CD20 A Flow CD23 A Flow CD2 A Flow CD4 A Flow CD1a A Flow CD5 A Flow CD19 A Flow CD34 A Flow CD45 A Flow CD7 A Flow CD8 A Flow CD30 A [place]+CD19+ A Lambda+CD19+ 9 5:33 PM [facility] Disclaimer Test performed at [facility], [address] [place], [place], [address]. *The established laboratory minimum viability is 70%. [...] testing. 9 5:33 PM CDT [facility] PATHOLOGY LAB Embedded Images 9 5:33 PM CDT [facility] PATHOLOGY LAB Pathology/Cytolo gy ENTIRE CERVICAL LYMPH NODE / Unknown 11/05/2018 11:02 AM CDT 11/06/2018 2:01 PM CDT Cindi Herrera MD LAB - PATHOLOGY/CYTOLOGY ORDERA BLE Final Result [facility] PATHOLOGY LAB [address] [facility] [place] [address], [facility] [phone] documented in this encounter Visit Diagnoses Diagnosis Enlarged lymph nodes Enlargement of lymph nodes documented in this encounter Care Teams Home Improvement Contractor Relationship Specialty Start Date End Date Scooter White DO PCP - General 03/16/22 documented as of this encounter
--- OUTSIDE RECORDS SUMMARY | 2024-11-20 00:12 | XMS_ITS | Encounter Summary ---
Author Organization [facility] Address [address] [place] [address] Phone Care Team Providers Care Home Demonstration Agent Name Role Phone Manda Singh MD Unavailable [phone] Robby Torres Primary Care Provider [phone] Scooter White DO Primary Care Provider Malik Cates MD Unavailable Ulices Marino MD Unavailable Yon Gutierrez MD Primary Care Provider Georgina Fontenot APRN, [facility] Unavailable [phone] Encounter Details Date Type Department Care Team (Late st Contact Info) Description 03/09/2020 [facility] [address] [place] [address] Walter Blake MD [address] [place] [address] Preop testing (Primary Dx) Social History Tobacco [...] Unable to assess 03/10/2020 1:32 PM RESEARCH COMPLIANCE SPECIALIST documented as of this encounter Plan of Treatment Not on file documented as of this encounter Visit Diagnoses Diagnosis Preop testing- Primary Preoperative examination, unspecified documented in this encounter Additional Health Concerns Infection Onset Date Last Indicated Resolved Time COVID - 19 03/10/2020 03/10/2020 03/16/2020 11:4 0 AM RESEARCH COMPLIANCE SPECIALIST Assessment Noted Time PHQ-9 Depression Total Score: 0 02/11/20 20 12:57 PM CDT documented as of this encounter Care Teams Home Demonstration Agent Relationship Specialty Start Date End Date Robby Torres [address] [facility] [place] [address] PCP - General Family Medicine 02/11/20 03/16/21 Scooter White DO [facility] [place] [address] PCP - General Internal Medicine 03/17/21 06/22/23 Yon Gutierrez MD [address] [facility] , [facility] [address] [place] [address] PCP - General Family Medicine 06/23/23 Manda Singh MD Obstetrics & Gynecology 02/11/20 Malik Cates MD [address]2 [facility] [address] [place] [address] Consulting Physician Endocrinology 12/13/21 Ulices Marino MD [address] [address] Consulting Physician Colon and Rectal Surgery 07/06/22 Georgina Fontenot APRN, FAMILY PROGRAM SPECIALIST [address] [place] [address] Nurse Practitioner Advanced Practice Nurse 09/25/24 documented as of this encounter
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
--- OUTSIDE RECORDS SUMMARY | 2024-11-20 00:12 | XMS_ITS | Continuity of Care Document ---
Author Organization [facility] Address [address] [facility] [place] [address] Phone Care Team Providers Care Retail Planning Manager Name Role Phone Robby Torres MD [...] Diagnoses Date Provider Providers Copied on Encounter [facility], [address] [facility] [place], [id number], [place] tel:[phone] [facility] No Information 1 Brian Bustamante. [address], [address], [place], [place], [address] , [place]. tel:[phone] [facility], [address], [place], [place], [address], [place] tel:[phone] [facility] No Information 0 Brian Bustamante. [address], [address], [place], [place], [address] , [place]. tel:[phone] OFFICE/OUTPA TIENT VISIT, [facility], [address], [place], [place], [address], [place] tel:[phone] [facility] anxiety1 (chief complaint) Generalized Anxiety DisorderHypothyroid ism 0 Brian Bustamante. [address], [address], [place], [place], [address] , [place]. tel:[phone] Referring Provider: Robby Torres [address], [place], [place], [address]. tel:[phone] OFFICE/OUTPA TIENT VISIT, [facility], [address], [place], [place], [address], [place] tel:[phone] [facility] anxiety1 (chief complaint) Generalized Anxiety DisorderGoiter 0 Brian Bustamante. [address], [address], [place], [place], [address] , [place]. tel:[phone] Referring Provider: Robby Torres [address], [place], [place], [address]. tel:[phone] OFFICE/OUTPA TIENT VISIT, [facility], [address], [place], [place], [address], [place] tel:[phone] [facility] thyroid nodule1 (chief complaint) anxiety1 (chief complaint) GoiterGeneralized Anxiety Disorder 0 Brian Menendez [address], [address], [place], [place], [address] , [place]. tel:[phone] Referring Provider: Gissel Banks [address], [place], [place], [address]. tel:[phone] OFFICE/OUTPA TIENT VISIT, [facility], [address], [place], [place], [address], [place] tel:[phone] [facility] anxiety1 (chief complaint) iron1 (chief complaint) thyroid1 (chief complaint) Disorder of iron metabolism, unspecifiedGoiterGe neralized Anxiety Disorder Lonnie-0 0 Brian Bustamante. [address], [address], [place], [place], [address] , [place]. [phone] Referring Provider: Gissel Banks [address], [place], [place], [address]. tel:[phone] OFFICE/OUTPA TIENT VISIT, [facility], [address], [place], [place], [address], [place] tel:[phone] [facility] ankle pain1 (chief complaint) fatigue1 (chief complaint) thyroid1 (chief complaint) anemia1 (chief complaint) Pain in right ankleFatigueAnemiaG oiter 0 Brian Bustamante. [address], [place], [place], [address] , [place]. tel:[phone] Referring Provider: Gissel Banks [address], [place], [place], [address]. tel:[phone] OFFICE/OUTPA TIENT VISIT, [facility], [address], [place], [place], [address], [place] tel:[phone] [facility] rash1 (chief complaint) Allergic contact dermatitis due to plants, except food Aug- 0 Brian Bustamante. [address], [place], [place], [address] , [place]. [phone] Referring Provider: Gissel Banks [address], [place], [place], [address]. tel:[phone] OFFICE/OUTPA TIENT VISIT, [facility], [address], [place], [place], [address], tel:[phone] [facility] Medicine thyroid1 (chief complaint) ferritin1 (chief complaint) IgA (chief complaint) fatigue1 (chief complaint) GoiterDisorder of iron metabolism, unspecifiedVitamin D deficiency, unspecifiedRaised level of immunoglobulinAnemi aH. pylori as the cause of diseases classified elsewhereFatigue 0 Brian Bustamante. [address] [facility] [place], [address] , . tel:[phone] Referring Provider: Gissel Banks [place], [place], [address]. tel:[phone] PREV VISIT, NEW, AGE 18-39 [facility], [address] [place] [address] [facility] [place], [place], [address], tel:[phone] [facility] PHysical (chief complaint) Encntr for general adult medical exam w/o abnormal findings 0 Brian Bustamante. [address], [facility] [address], [place], [place], [address] , [place]. tel:[phone] Referring Provider: Robby Torres [address] [place] [address], [id number]. tel:[phone] Family History Family Member Type Diagnosis Age At Onset Brother Problem Alive and well Father Problem (finding) Alive and well Mother Problem (finding) Thyroid disorder Payers Payer name Insurance type Covered green [...] BIOPSY ordered Referral Referred To: Joe Fontana [address] [facility]
[address] [place], [place] [id number] Ordered: Referrals: Allopathic & Osteopathic Physicians : [...] keira with endo fatigue1 Pt has mild tap grinder mark fatigue Pt had sleep study done which was negative for sleep apnea ankle pain1 Pt was at [employer] round and she stepped on gravel which [...]
--- OUTSIDE RECORDS SUMMARY | 2024-11-20 00:12 | XMS_ITS | Continuity of Care Document ---
Author Organization [facility] Address [address] [place] [address] [address] [place] [address] Phone Care Team Providers Care Sawdust Machine Operator Name Role Phone Carol OD OD, [...] Active Procedures Procedure Date OFFICE/OUTPATIENT VISIT, [facility] Comp cont lens eval No Charge Visit N/C Glasses Check Advance Directives Directive Yes / No Effective Date File Name No Information Encounters Encounter Description Practice Location Reason(s) For Visit Diagnoses Date Provider Providers Copied on Encounter [facility], [address] [place] [address] [address], [place], [place], [address], tel:[phone] [facility] No Information 3 Carol OD Georgina. [address] [facility], [address], [place], [place], [address], [place]. tel:[phone] Referring Provider: Georgina Medina OD, [address] [facility] [address], [place], [address] . tel:[phone] OFFICE/OUTPA TIENT VISIT, [facility], [address] [place] [address], [id number], tel:[phone] [facility] blurry vision (chief complaint) dry eye (chief complaint) Krystin's thyroiditisMyo roger, bilateralTear film insufficiency of bilateral lacrimal glandsOther vitreous opacities, bilateralCorne al neovasculariza tion of both eyes 2 Derheimer OD Georgina. [address], [address] [place] [address], [id number], [place]. tel:[phone] Referring Provider: Scooter White, [address], [place], [address]. tel:[phone] [facility], [address] [place] [address], [id number], tel:[phone] [facility] KENTRELL LOPEZ No Information 6 Derheimer OD Georgina. [address], [address] [place] [address], [id number], [place]. tel:[phone] Referring Provider: Georgina Medina OD, [address], [place], [address] . tel:[phone] [facility], [address] [place] [address], [id number], tel:[phone] OPH CONSULT KENTRELL LOPEZ blurry vision (chief complaint) Myopia, bilateral 6 Derheimer OD Georgina. [address], [place], [place], [address], [place]. tel:[phone] Referring Provider: Georgina Medina OD, [address], [place], [address] . tel:[phone] [facility], [address] [place] [address], [id number], tel:[phone] [facility] No Information 1 Beth Cohenl. [address], [place], [place], [address], [place]. tel:[phone] Family History Family Member Type Diagnosis Age [...]
--- OUTSIDE RECORDS SUMMARY | 2024-11-20 00:12 | XMS_ITS | Clinical Summary ---
Author Organization [facility] Address [address] [place] [address] Care Team Providers Care Forest Fire Prevention Manager Name Role Phone Scooter White DO Primary Care Provider Source Comments [facility],non-owned Affiliates and Associated Physician Practices is amultiple site organization consisting of ambulatory clinics and hospital sitesin [place], [place], [place] and [place]. This disclosure is being madepursuant to the Care Everywhere program and may not contain all information available regarding this patient. Last updated 18.[facility] Allergies Active Allergy Reactions Criticality Noted Date [...] Type Department Care Team Description 10/28/2024 Telephone [facility] [address] [place], [place] [id number] Silvina León Appointment 09/24/2024 1:00 PM CDT - 09/24/2024 11:59 PM CDT Hospital Encounter [facility] [address] [place] [address] Derick Mcclendon MD [employer] ANALYST Discharge Disposition: Home or Self Care 08/27/2024 12:58 PM CDT - 08/27/2024 11:59 PM CDT Hospital Encounter [facility] [address] [place] [address] Christiano Tristan MD Discharge Disposition: Home or [...] on file Legal Sex Female 1:08 PM PACKAGE HANDLER Gender Identity Not on file Sexual [...] in second trimester ([facility]) 28 weeks gestation of ([facility]) Supervision of high risk in second trimester ([facility]) Obesity affecting in second trimester, unspecified obesity type ([facility]) Encounter for follow-up ultrasound of anatomy ([facility]) Encounter for ultrasound to assess growth ([facility]) SONOGRAM - COMPLETE Routine 08/27/2024 1 2:52 PM CDT Dichorionic diamniotic twin in second trimester ([facility]) History of pre-eclampsia in prior , currently ([facility]) 24 weeks gestation of ([facility]) Supervision of high risk in second trimester ([facility]) from Last 3 Months Results * SONOGRAM - COMPLETE (09/24/2024 1:09 PM CDT) Only the most recent of2 resultswithin the time period is included. Linked Results Indication ======== DA/DC Twins Incomplete Anatomy Screen x2 History of Preeclampsia, Obesity in , Class II History ====== OB History 4. Para 3 [id number] 1. live 2011. Gest. age 41 w [...] 2 lb 14 oz EFW by Hadlock (CEX-DU-YC-FL) EFW discordance 4.6 % appropriate Fetus B: Biometry BPD 69.2 mm 27w 6d 42% Hadlock HC 260.6 mm 28w 2d 39% Hadlock AC 252.3 mm 29w 3d 88% Hadlock Femur 51.1 mm 27w 3d 25% Hadlock Humerus 48.6 mm 28w 4d 68% Robinson HC / AC 1.03 Weight Calculation: EFW 1,242 g 69% Hadlock EFW (lb,oz) 2 lb 12 oz EFW by Hadlock (LBX-JM-WR-FL) EFW discordance 4.6 % appropriate Fetus A: [...] Thorax RVOT view. LVOT view. 3-vessel view. 2-utehtj-oewpdhi view. Situs. Bicaval view. Ductal arch view. [...] view. RVOT view. LVOT view. 3-vessel view. 9-jdgcbt-loknkmj view. Situs. Aortic arch view. Bicaval view. [...] and begin weekly testing Coding ====== Procedures 64045: [place] Preg Uterus Follow Up. x2 [employer] PACS Anatomical Region Laterality Modality Other 09/24/2024 1:09 PM CDT R Bert Garcia MD [facility] ORDERABLES Edited Result - Final from Last 3 Months Insurance HEALTH CARE Care Teams Forest Fire Prevention Manager Relationship Specialty Start Date End Date Scooter White DO PCP - General 03/16/22
--- OUTSIDE RECORDS SUMMARY | 2024-11-20 00:12 | XMS_ITS | Encounter Summary ---
Author Organization [facility] Address [address] [place] [address] Phone Care Team Providers Care Machine Heel Builder Name Role Phone Manda Singh MD Unavailable [phone] Robby Torres Primary Care Provider Scooter White DO Primary Care Provider Malik Cates MD Unavailable Ulices Marino MD Unavailable Yon Gutierrez MD Primary Care Provider Georgina Fontenot APRN, [facility] Unavailable [phone] Encounter Details Date Type Department Care Team (Late st Contact Info) Description 04/09/2020 Telephone [facility] [address] [address] [address] Saud Dalton MD [address] [place] [phone] Social History Tobacco Use Types Packs/Day [...] COVID-19? No / Unsure 03/20/2020 6:06 AM PADDOCK JUDGE documented as of this encounter Miscellaneous Notes * Telephone Encounter - Mahnaz Alaniz - 04/09/2020 2:50 PM CST Patient no showed her appointment, left voice message to call the office to reschedule. Sent out a no show letter. OCK JUDGE documented in this encounter Plan of Treatment Not on file documented as of this encounter Visit Diagnoses Not on filedocumented in this encounter Additional Health Concerns Assessment Noted Time PHQ-9 Depression Total Score: 0 02/11/20 20 12:57 PM CDT documented as of this encounter Care Teams Machine Heel Builder Relationship Specialty Start Date End Date Robby Torres [address] [place] [address] PCP - General Family Medicine 02/11/20 03/16/21 Scooter White DO [address] [place] [address] [place] [address] PCP - General Internal Medicine 03/17/21 06/22/23 Yon Gutierrez MD [address] [place] [address] [address] PCP - General Family Medicine 06/23/23 Manda Singh MD Obstetrics & Gynecology 02/11/20 Malik Cates MD #[address] [address] Consulting Physician Endocrinology 12/13/21 Ulices Marino MD #[address] [address] Consulting Physician Colon and Rectal Surgery 07/06/22 Georgina Fontenot APRN, [facility] [address] [place] [address] Nurse Practitioner Advanced Practice Nurse 09/25/24 documented as of this encounter
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
--- OUTSIDE RECORDS SUMMARY | 2024-11-20 00:13 | XMS_ITS | Data Portability ---
Author Organization [facility] Address [address] [place] [address] Care Team Providers Care Produce Specialist Name Role Phone ZO MORA OTHER [...] auto diff 2018 019 [facility], [address] [address], [place], [address], 9 06:40:13 ferritin, serum or plasma 2018 019 [facility], [address] [facility] [address], [place], [address], 9 06:40:14 iron + total iron-bindin g capacity (TIBC), serum 2018 019 [facility], [address] [place] [address] 2, [place], [address], 9 06:40:14 HIV 1+2 AB + HIV 1 p24 Ag, qualitative immunoassay , serum 2018 019 [facility], [address], [place], [address], 9 07:12:01 HBsAg (hepatitis B surface Ag), EIA, serum 2018 019 [facility], [address], [place], [address], 9 07:12:02 hepatitis C Ab, signal-to-c utoff, serum or plasma 2018 019 [facility], [address], [place], [address], 9 07:12:01 RPR (rapid plasma reagin), serum 2018 019 [facility], [address], [place], [address], 9 07:12:00 hsv (1+2) igg Ab, serum 2018 019 [facility], [address] [facility], [place], [address], 9 07:12:00 CBC w/ auto diff 2018 019 [facility], [address] [facility], [place], [address], 9 07:11:59 Referral general surgeon referral 2018 019 LANA Moralez MD, 4 [facility] , [facility] [address], [place], [address], 9 12:38:24 ENT referral - Saw Dr. Mora --- need a second opinion. 2018 019 [facility], 2 [facility], [address], [place], [address], 9 17:55:21 Procedures None recorded. Surgeries None recorded. Imaging None recorded. Medication Orders ferrous sulfate 325 mg (65 mg iron) tablet [address] [facility], [address] [place] [address], [address], 9 11:26:58 Mucinex 600 mg tablet, extended release [address] [facility] [address] [facility], [address] [place] [address], [address], 9 00:24:12 ferrous sulfate 325 mg (65 mg iron) tablet [address] [facility] [address] [facility], [address] [place] [address], [address], 9 12:48:40 Tessalon Perles 100 mg capsule [address] [facility], [address] [place] [address], [address], 9 00:24:06 Patient TargetsNo targets recorded. Patient Instructions Encounter Date Encounter Id Patient Instructions Last Modified By Organization Details Last Modified Time 07/27/2018 [id number] upper respirator y infection (cold): care instructions Not available 07/27/2018 13:23:41 08/29/2018 [id number] hemorrhoids: car e instructions Not available 08/29/2018 16:13:52 anemia: care instructions Not available 08/29/2018 18:08:26 09/05/2018 [id number] Acute Sinusitis: Care Instructions Not available 09/05/2018 12:48:40 11/13/2018 [id number] hemorrhoids: car e instructions Not available 11/27/2018 00:17:15 02/13/2019 [id number] dizziness: care instructions Not available 02/13/2019 11:26:58 electrocardiogra m interpretation* ATHENAFAX Not available 03/13/2019 15:05:29 Reason for Referral ENT Referral for Cervical ly mphadenopathy Saw Dr. Mora --- need a second opinion. Referring Physician: Lucero Sandoval, Family Medicine, Encounter Date: 07/27/2018 General Surgeon Referral for Hemorrhoids Referring Physician: Ricardo Ramirez, [employer], Encounter Date: 08/29/2018 Results Created Date Observation Date Name Description Value Unit Range Abnormal Flag Note LastModifiedBy Organization Detail LastModifiedTime 07/04/19 19 07/05/2018 TSH + free T4, serum TSH 3.080 uIU/m L 0.450- 4.500 Not Available [facility] ([facility]) [address] [place], [address], 07/05/2018 09:23:03 07/04/19 19 07/05/2018 TSH + free T4, serum T4,free(dire ct) 1.06 NG/dL 0.82-1 .77 Not Available [facility] ([facility]) [address] [place], [address], 07/05/2018 09:23:03 07/04/19 19 07/04/2018 CBC w/ auto diff WBC 7.2 x10e3 /uL 3.4-10 .8 Not Available [facility] ([facility]) [address] [place], [address], 07/05/2018 09:23:03 07/04/19 19 07/04/2018 CBC w/ auto diff RBC 4.87 x10e6 /uL 3.77-5 .28 Not Available [facility] ([facility]) [address] [place], [address], 07/05/2018 09:23:03 07/04/19 19 07/04/2018 CBC w/ auto diff hemoglobin 11.5 g/dL 11.1-1 5.9 Not Available [facility] ([facility]) [address] [place], [address], 07/05/2018 09:23:03 07/04/19 19 07/04/2018 CBC w/ auto diff hematocrit 36.2 % 34.0-4 6.6 Not Available [facility] ([facility]) [address] [facility] [place], [address], 07/05/2018 09:23:03 07/04/19 19 07/04/2018 CBC w/ auto diff MCV 74 fL 79-97 below low normal Not Available [facility] ([facility]) [address] [facility] [place], [address], 07/05/2018 09:23:03 07/04/19 19 07/04/2018 CBC w/ auto diff MCH 23.6 pg 26.6-3 3.0 below low normal Not Available [facility] ([facility]) [address] [facility] [place], [address], 07/05/2018 09:23:03 07/04/19 19 07/04/2018 CBC w/ auto diff MCHC 31.8 g/dL 31.5-3 5.7 Not Available [facility] ([facility]) [address] [facility] [place], [address], 07/05/2018 09:23:03 07/04/19 19 07/04/2018 CBC w/ auto diff RDW 16.0 % 12.3-1 5.4 above high normal Not Available [facility] ([facility]) [address] [facility] [place], [address], 07/05/2018 09:23:03 07/04/19 19 07/04/2018 CBC w/ auto diff platelets 480 x10e3 /uL 150-37 9 above high normal Not Available [facility] ([facility]) [address] [facility] [place], [address], 07/05/2018 09:23:03 07/04/19 19 07/04/2018 CBC w/ auto diff neutrophils 64 % not estab. Not Available [facility] ([facility]) [address] [facility] [place], [address], 07/05/2018 09:23:03 07/04/19 19 07/04/2018 CBC w/ auto diff lymphs 28 % not estab. Not Available [facility] ([facility]) [address] [facility] [place], [address], 07/05/2018 09:23:03 07/04/19 19 07/04/2018 CBC w/ auto diff monocytes 6 % not estab. Not Available [facility] ([facility]) [address] [facility] [place], [address], 07/05/2018 09:23:03 07/04/19 19 07/04/2018 CBC w/ auto diff eos 1 % not estab. Not Available [facility] ([facility]) [address] [place], [address], 07/05/2018 09:23:03 07/04/19 19 07/04/2018 CBC w/ auto diff basos 1 % not estab. Not Available [facility] ([facility]) [address] [facility], [place], [address], 07/05/2018 09:23:03 07/04/19 19 07/04/2018 CBC w/ auto diff immature cells FLEXIBLE NANNY Not Available [facility] ([facility]) [address] [facility] [place], [address], 07/05/2018 09:23:03 07/04/19 19 07/04/2018 CBC w/ auto diff neutrophils (absolute) 4.6 x10e3 /uL 1.4-7. 0 Not Available [facility] ([facility]) [address] [place], [address], 07/05/2018 09:23:03 07/04/19 19 07/04/2018 CBC w/ auto diff lymphs (absolute) 2.0 x10e3 /uL 0.7-3. 1 Not Available [facility] ([facility]) [address] [place], [address], 07/05/2018 09:23:03 07/04/19 19 07/04/2018 CBC w/ auto diff monocytes(ab solute) 0.5 x10e3 /uL 0.1-0. 9 Not Available [facility] ([facility]) [address] [facility] [place], [address], 07/05/2018 09:23:03 07/04/19 19 07/04/2018 CBC w/ auto diff eos (absolute) 0.1 x10e3 /uL 0.0-0. 4 Not Available [facility] ([facility]) [address] [facility] [place], [address], 07/05/2018 09:23:03 07/04/19 19 07/04/2018 CBC w/ auto diff baso (absolute) 0.1 x10e3 /uL 0.0-0. 2 Not Available [facility] ([facility]) [address] [facility] [place], [address], 07/05/2018 09:23:03 07/04/19 19 07/04/2018 CBC w/ auto diff immature granulocytes 0 % not estab. Not Available [facility] ([facility]) [address] [facility] [place], [address], 07/05/2018 09:23:03 07/04/19 19 07/04/2018 CBC w/ auto diff immature grans (abs) 0.0 x10e3 /uL 0.0-0. 1 Not Available [facility] ([facility]) [address] [facility] [place], [address], 07/05/2018 09:23:03 07/04/19 19 07/04/2018 CBC w/ auto diff NRBC FLEXIBLE NANNY Not Available [facility] ([facility]) [address] [place], [address], 07/05/2018 09:23:03 07/04/19 19 07/04/2018 CBC w/ auto diff hematology comments: FLEXIBLE NANNY Not Available [facility] ([facility]) [address] [facility] [place], [address], 07/05/2018 09:23:03 07/04/19 19 07/05/2018 CMP, serum or plasm a glucose 90 mg/dL 65-99 Not Available [facility] ([facility]) [address] [place], [address], 07/05/2018 09:23:04 07/04/19 19 07/05/2018 CMP, serum or plasm a BUN 9 mg/dL 6-20 Not Available [facility] ([facility]) [address] [place], [address], 07/05/2018 09:23:04 07/04/19 19 07/05/2018 CMP, serum or plasm a creatinine 0.66 mg/dL 0.57-1 .00 Not Available [facility] ([facility]) [address] [place], [address], 07/05/2018 09:23:04 07/04/19 19 07/05/2018 CMP, serum or plasm a eGFR if nonafricn AM 123 mL/mi n/1.7 3 >59 Not Available [facility] ([facility]) [address] [place], [address], 07/05/2018 09:23:04 07/04/19 19 07/05/2018 CMP, serum or plasm a eGFR if africn AM 142 mL/mi n/1.7 3 >59 Not Available [facility] ([facility]) [address] [place], [address], 07/05/2018 09:23:04 07/04/19 19 07/05/2018 CMP, serum or plasm a BUN/creatini ne ratio 14 9-23 Not Available [facility] ([facility]) [address] [place], [address], 07/05/2018 09:23:04 07/04/19 19 07/05/2018 CMP, serum or plasm a sodium 139 mmol/ L 134-14 4 Not Available [facility] ([facility]) [address] [place], [address], 07/05/2018 09:23:04 07/04/1907/05/2018 CMP, serum or plasm a potassium 4.4 mmol/ L 3.5-5. 2 Not Available [facility] ([facility]) [address] [facility] [place], [address], 07/05/2018 09:23:04 07/04/1907/05/2018 CMP, serum or plasm a chloride 102 mmol/ L 96-106 Not Available [facility] ([facility]) [address] [facility] [place], [address], 07/05/2018 09:23:04 07/04/1907/05/2018 CMP, serum or plasm a carbon dioxide, total 23 mmol/ L 20-29 Not Available [facility] ([facility]) [address] [facility] [place], [address], 07/05/2018 09:23:04 07/04/1907/05/2018 CMP, serum or plasm a calcium 9.7 mg/dL 8.7-10 .2 Not Available [facility] ([facility]) [address] [facility] [place], [address], 07/05/2018 09:23:04 07/04/19 19 07/05/2018 CMP, serum or plasm a protein, total 8.1 g/dL 6.0-8. 5 Not Available [facility] ([facility]) [address] [facility] [place], [address], 07/05/2018 09:23:04 07/04/1907/05/2018 CMP, serum or plasm a albumin 4.6 g/dL 3.5-5. 5 Not Available [facility] ([facility]) [address] [facility] [place], [address], 07/05/2018 09:23:04 07/04/1907/05/2018 CMP, serum or plasm a globulin, total 3.5 g/dL 1.5-4. 5 Not Available [facility] ([facility]) [address] [facility] [place], [address], 07/05/2018 09:23:04 07/04/1907/05/2018 CMP, serum or plasm a A/G ratio 1.3 1.2-2. 2 Not Available [facility] ([facility]) [address] [facility] [place], [address], 07/05/2018 09:23:04 07/04/1907/05/2018 CMP, serum or plasm a bilirubin, total 0.3 mg/dL 0.0-1. 2 Not Available [facility] ([facility]) [address] [facility] [place], [address], 07/05/2018 09:23:04 07/04/1907/05/2018 CMP, serum or plasm a alkaline phosphatase 68 IU/L 39-117 Not Available [facility] ([facility]) [address] [facility] [place], [address], 07/05/2018 09:23:04 07/04/1907/05/2018 CMP, serum or plasm a AST (SGOT) 20 IU/L 0-40 Not Available [facility] ([facility]) [address] [facility] [place], [address], 07/05/2018 09:23:04 07/04/1907/05/2018 CMP, serum or plasm a ALT (SGPT) 15 IU/L 0-32 Not Available [facility] ([facility]) [address] [facility] [place], [address], 07/05/2018 09:23:04 07/04/1907/05/2018 cytom egalo virus (cmv) igg+i gm Ab, serum cytomegalovi yung (CMV) Ab, IgG <0.60 U/mL 0.00-0 .59 Negat hayde <0.60 Equiv ocal 0.60 - 0.69 Posit hayde >0.69 Not Available [facility] ([facility]) [address] [facility] [place], [address], 07/05/2018 09:23:04 07/04/19 19 07/05/2018 cytom egalo virus (cmv) igg+i gm Ab, serum cytomegalovi yung (CMV) Ab, IgM <30.0 AU/mL 0.0-29 .9 Negat hayde <30.0 Equiv ocal 30.0 - 34.9 Posit hayde >34.9 A posit hayde resul t is gener ally indic ative of acute infec tion, react ivati on or persi stent IgM produ ction . Not Available [facility] ([facility]) [address] [facility] [place], [address], 07/05/2018 09:23:04 07/04/1907/05/2018 RPR (rapi d plasm a reagi n), serum RPR Non Reacti ve non reacti ve Not Available [facility] ([facility]) [address] [facility] [place], [address], 07/05/2018 09:23:05 07/04/1907/05/2018 heter ophil e Ab, quali tativ e latex agglu tinat ion, serum mono qual w/rflx qn Negati ve negati ve The sensi tivit y of Heter ophil e antib srinivasan testi ng is 80-90 %. Epste in [place] IgM testi ng offer s highe r sensi tivit y. Not Available [facility] ([facility]) [address] [facility] [place], [address], 07/05/2018 09:23:06 08/30/1908/30/2018 CBC w/ auto diff WBC 7.4 x10e3 /uL 3.4-10 .8 Not Available [facility] ([facility]) [address] [place], [address], 08/30/2018 07:11:59 08/30/19 19 08/30/2018 CBC w/ auto diff RBC 4.51 x10e6 /uL 3.77-5 .28 Not Available [facility] ([facility]) [address] [place], [address], 08/30/2018 07:11:59 08/30/19 19 08/30/2018 CBC w/ auto diff hemoglobin 11.0 g/dL 11.1-1 5.9 below low normal Not Available [facility] ([facility]) [address] [place], [address], 08/30/2018 07:11:59 08/30/1908/30/2018 CBC w/ auto diff hematocrit 34.2 % 34.0-4 6.6 Not Available [facility] ([facility]) [address] [place], [address], 08/30/2018 07:11:59 08/30/19 19 08/30/2018 CBC w/ auto diff MCV 76 fL 79-97 below low normal Not Available [facility] ([facility]) [address] [place], [address], 08/30/2018 07:11:59 08/30/19 19 08/30/2018 CBC w/ auto diff MCH 24.4 pg 26.6-3 3.0 below low normal Not Available [facility] ([facility]) [address] [place], [address], 08/30/2018 07:11:59 08/30/1908/30/2018 CBC w/ auto diff MCHC 32.2 g/dL 31.5-3 5.7 Not Available [facility] ([facility]) [address] [place], [address], 08/30/2018 07:11:59 08/30/19 19 08/30/2018 CBC w/ auto diff RDW 15.6 % 12.3-1 5.4 above high normal Not Available [facility] ([facility]) [address] [facility] [place], [address], 08/30/2018 07:11:59 08/30/19 19 08/30/2018 CBC w/ auto diff platelets 389 x10e3 /uL 150-37 9 above high normal Not Available [facility] ([facility]) [address] [facility] [place], [address], 08/30/2018 07:11:59 08/30/19 19 08/30/2018 CBC w/ auto diff neutrophils 59 % not estab. Not Available [facility] ([facility]) [address] [facility] [place], [address], 08/30/2018 07:11:59 08/30/19 19 08/30/2018 CBC w/ auto diff lymphs 31 % not estab. Not Available [facility] ([facility]) [address] [facility] [place], [address], 08/30/2018 07:11:59 08/30/19 19 08/30/2018 CBC w/ auto diff monocytes 8 % not estab. Not Available [facility] ([facility]) [address] [facility] [place], [address], 08/30/2018 07:11:59 08/30/19 19 08/30/2018 CBC w/ auto diff eos 1 % not estab. Not Available [facility] ([facility]) [address] [facility] [place], [address], 08/30/2018 07:11:59 08/30/1908/30/2018 CBC w/ auto diff basos 1 % not estab. Not Available [facility] ([facility]) [address] [facility] [place], [address], 08/30/2018 07:11:59 08/30/1908/30/2018 CBC w/ auto diff immature cells FLEXIBLE NANNY Not Available [facility] ([facility]) [address] [facility] [place], [address], 08/30/2018 07:11:59 08/30/19 19 08/30/2018 CBC w/ auto diff neutrophils (absolute) 4.4 x10e3 /uL 1.4-7. 0 Not Available [facility] ([facility]) [address] [place], [address], 08/30/2018 07:11:59 08/30/1908/30/2018 CBC w/ auto diff lymphs (absolute) 2.3 x10e3 /uL 0.7-3. 1 Not Available [facility] ([facility]) [address] [place], [address], 08/30/2018 07:11:59 08/30/1908/30/2018 CBC w/ auto diff monocytes(ab solute) 0.6 x10e3 /uL 0.1-0. 9 Not Available [facility] ([facility]) [address] [place], [address], 08/30/2018 07:11:59 08/30/1908/30/2018 CBC w/ auto diff eos (absolute) 0.1 x10e3 /uL 0.0-0. 4 Not Available [facility] ([facility]) [address] [place], [address], 08/30/2018 07:11:59 08/30/1908/30/2018 CBC w/ auto diff baso (absolute) 0.0 x10e3 /uL 0.0-0. 2 Not Available [facility] ([facility]) [address] [place], [address], 08/30/2018 07:11:59 08/30/1908/30/2018 CBC w/ auto diff immature granulocytes 0 % not estab. Not Available [facility] ([facility]) [address] [place], [address], 08/30/2018 07:11:59 08/30/1908/30/2018 CBC w/ auto diff immature grans (abs) 0.0 x10e3 /uL 0.0-0. 1 Not Available [facility] ([facility]) [address] [facility] [place], [address], 08/30/2018 07:11:59 08/30/1908/30/2018 CBC w/ auto diff NRBC FLEXIBLE NANNY Not Available [facility] ([facility]) [address] [facility] [place], [address], 08/30/2018 07:11:59 08/30/1908/30/2018 CBC w/ auto diff hematology comments: FLEXIBLE NANNY Not Available [facility] ([facility]) [address] [facility] [place], [address], 08/30/2018 07:11:59 08/30/1908/30/2018 hsv (1+2) igg Ab, [...] willy to HSV-1 . Not Available [facility] ([facility]) [address] [facility] [place], [address], 08/30/2018 07:12:00 08/30/1908/30/2018 hsv (1+2) igg Ab, [...] willy to HSV-2 . Not Available [facility] ([facility]) [address] [facility] [place], [address], 08/30/2018 07:12:00 08/30/19 19 08/30/2018 RPR (rapi d plasm a reagi n), serum RPR Non Reacti ve non reacti ve Not Available [facility] ([facility]) [address] [facility] [place], [address], 08/30/2018 07:12:00 08/30/1908/30/2018 HIV 1+2 AB + HIV 1 p24 Ag, quali tativ e immun oassa y, serum HIV screen 4TH generation wrfx Non Reacti ve non reacti ve Not Available [facility] ([facility]) [address] [facility] [place], [address], 08/30/2018 07:12:01 08/30/19 19 08/30/2018 hepat itis C Ab, signa l-to- cutof f, serum or plasm a HCV Ab <0.1 s/co_ ratio 0.0-0. 9 Not Available [facility] ([facility]) [address] [facility] [place], [address], 08/30/2018 07:12:01 08/30/1908/30/2018 hepat itis C Ab, signa l-to- cutof f, serum or plasm a comment: Commen t Non react hayde HCV antib srinivasan scree n is consi stent with no HCV infec tion, unles s recen t infec tion is suspe cted or other evide nce exist s to indic ate HCV infec tion. Not Available [facility] ([facility]) [address] [facility] [place], [address], 08/30/2018 07:12:01 08/30/1908/30/2018 HBsAg (hepa titis B surfa ce Ag), EIA, serum HBsAg screen Negati ve negati ve Not Available [facility] ([facility]) [address] [facility] [place], [address], 08/30/2018 07:12:02 02/14/2002/14/2019 CBC w/ auto diff WBC 7.5 x10e3 /uL 3.4-10 .8 Not Available [facility] ([facility]) [address] [facility] [place], [address], 02/14/2019 06:40:13 02/14/2002/14/2019 CBC w/ auto diff RBC 4.34 x10e6 /uL 3.77-5 .28 Not Available [facility] ([facility]) [address] [facility] [place], [address], 02/14/2019 06:40:13 02/14/2002/14/2019 CBC w/ auto diff hemoglobin 11.1 g/dL 11.1-1 5.9 Not Available [facility] ([facility]) [address] [facility] [place], [address], 02/14/2019 06:40:13 02/14/2002/14/2019 CBC w/ auto diff hematocrit 34.2 % 34.0-4 6.6 Not Available [facility] ([facility]) [address] [facility] [place], [address], 02/14/2019 06:40:13 02/14/2002/14/2019 CBC w/ auto diff MCV 79 fL 79-97 Not Available [facility] ([facility]) [address] [facility] [place], [address], 02/14/2019 06:40:13 02/14/2002/14/2019 CBC w/ auto diff MCH 25.6 pg 26.6-3 3.0 below low normal Not Available [facility] ([facility]) [address] [facility] [place], [address], 02/14/2019 06:40:13 02/14/2002/14/2019 CBC w/ auto diff MCHC 32.5 g/dL 31.5-3 5.7 Not Available [facility] ([facility]) [address] [facility] [place], [address], 02/14/2019 06:40:13 02/14/2002/14/2019 CBC w/ auto diff RDW 15.0 % 12.3-1 5.4 Not Available [facility] ([facility]) [address] [facility] [place], [address], 02/14/2019 06:40:13 02/14/2002/14/2019 CBC w/ auto diff platelets 372 x10e3 /uL 150-45 0 Not Available [facility] ([facility]) [address] [facility] [place], [address], 02/14/2019 06:40:13 02/14/2002/14/2019 CBC w/ auto diff neutrophils 61 % not estab. Not Available [facility] ([facility]) [address] [facility] [place], [address], 02/14/2019 06:40:13 02/14/2002/14/2019 CBC w/ auto diff lymphs 28 % not estab. Not Available [facility] ([facility]) [address] [facility] [place], [address], 02/14/2019 06:40:13 02/14/2002/14/2019 CBC w/ auto diff monocytes 8 % not estab. Not Available [facility] ([facility]) [address] [facility] [place], [address], 02/14/2019 06:40:13 02/14/2002/14/2019 CBC w/ auto diff eos 2 % not estab. Not Available [facility] ([facility]) [address] [facility] [place], [address], 02/14/2019 06:40:13 02/14/2002/14/2019 CBC w/ auto diff basos 1 % not estab. Not Available [facility] ([facility]) [address] [facility], [place], [address], 02/14/2019 06:40:13 02/14/2002/14/2019 CBC w/ auto diff immature cells FLEXIBLE NANNY Not Available [facility] ([facility]) [address] [facility], [place], [address], 02/14/2019 06:40:13 02/14/2002/14/2019 CBC w/ auto diff neutrophils (absolute) 4.7 x10e3 /uL 1.4-7. 0 Not Available [facility] ([facility]) [address] [facility], [place], [address], 02/14/2019 06:40:13 02/14/2002/14/2019 CBC w/ auto diff lymphs (absolute) 2.1 x10e3 /uL 0.7-3. 1 Not Available [facility] ([facility]) [address] [facility], [place], [address], 02/14/2019 06:40:13 02/14/2002/14/2019 CBC w/ auto diff monocytes(ab solute) 0.6 x10e3 /uL 0.1-0. 9 Not Available [facility] ([facility]) [address] [facility], [place], [address], 02/14/2019 06:40:13 02/14/2002/14/2019 CBC w/ auto diff eos (absolute) 0.1 x10e3 /uL 0.0-0. 4 Not Available [facility] ([facility]) [address] [place], [address], 02/14/2019 06:40:13 02/14/2002/14/2019 CBC w/ auto diff baso (absolute) 0.0 x10e3 /uL 0.0-0. 2 Not Available [facility] ([facility]) [address] [facility], [place], [address], 02/14/2019 06:40:13 02/14/2002/14/2019 CBC w/ auto diff immature granulocytes 0 % not estab. Not Available [facility] ([facility]) [address] [facility], [place], [address], 02/14/2019 06:40:13 02/14/2002/14/2019 CBC w/ auto diff immature grans (abs) 0.0 x10e3 /uL 0.0-0. 1 Not Available [facility] ([facility]) [address] [place] [address], [place], [address], 02/14/2019 06:40:13 02/14/2002/14/2019 CBC w/ auto diff NRBC FLEXIBLE NANNY Not Available [facility] ([facility]) [address] [place] [address], [place], [address], 02/14/2019 06:40:13 02/14/2002/14/2019 CBC w/ auto diff hematology comments: FLEXIBLE NANNY Not Available [facility] ([facility]) [address] [facility], [place], [address], 02/14/2019 06:40:13 02/14/2002/14/2019 iron + total iron- leta ng capac ity (TIBC ), serum iron bind.cap.(TI BC) 353 ug/dL 250-45 0 Not Available [facility] ([facility]) [address] [place], [address], 02/14/2019 06:40:14 02/14/2002/14/2019 iron + total iron- leta ng capac ity (TIBC ), serum UIBC 336 ug/dL 131-42 5 Not Available [facility] ([facility]) [address] [place] [address], [address], 02/14/2019 06:40:14 02/14/2002/14/2019 iron + total iron- leta ng capac ity (TIBC ), serum iron 17 ug/dL 27-159 below low normal Not Available [facility] ([facility]) [address] [facility], [place], [address], 02/14/2019 06:40:14 02/14/20 19 02/14/2019 iron + total iron- leta ng capac ity (TIBC ), serum iron saturation 5 % 15-55 alert low Not Available [facility] ([facility]) [address] [facility], [place], [address], 02/14/2019 06:40:14 02/14/2002/14/2019 cristina tin, serum or plasm a ferritin, serum 7 NG/mL 15-150 below low normal Not Available [facility] ([facility]) [address] [facility], [place], [address], 02/14/2019 06:40:14 07/04/19 19 07/04/2018 XR, chest No observ ation record ed. [email or web address] [address] [place], [address], 07/06/2018 16:35:07 08/16/19 19 08/09/2018 CT, neck, soft tissu e, w/ contr ast No observ ation record ed. [address] [place], [address], 11/27/2018 00:09:00 08/17/19 19 08/16/2018 CT, sinus es, w/o contr ast No observ ation record ed. [address] [place], [address], 08/16/2018 13:21:28 Result Notes None recorded. Problems Name Problem SNOMED Code Status Onset Date Resolution Date Notes Provider Name and Address Organization Details Recorded Time Disorder of thyroid gland 70914819 Completed 201811/26/2018 [facility] New 9 00:12:22 Cervical lymphade nopathy 245066681 Active 2018 [facility] 9 11:15:19 Upper respirat ory infectio n 45991566 Completed 201811/13/2018 [place] - [facility] 9 11:05:53 Mean corpuscu lar volume below referenc e range 781904440 Active 2018 [place] [facility] 9 12:49:50 Acute sinusiti s 91816780 Completed 201811/13/2018 [place] [facility] 9 11:05:49 History of Helicoba cter pylori infectio n 20916225265 966144 Active 2018 GI [place] [facility] 9 00:05:39 Chronic gastriti s 9192384 Active 2018 EGD - H pylori, GI [place] [facility] 9 00:06:03 Hemorrho ids 05222058 Active 2018 Gen sx planning for hemorrho idectomy [place] [facility] 9 00:06:27 Dizzines s 164388966 Active 2018 [place] [facility] 9 11:29:10 Infectiv e vaginiti s 194776485 Active Radha Garcia [place] [facility] 6 11:25:47 Infectiv e vaginiti s 259291106 Completed Shahrzad Barrera [place] [facility] 5 09:18:25 Maternal care for diminish ed movement s Active Radha [place] [facility] 6 11:25:47 Maternal care for diminish ed movement s Completed Shahrzad Barrera [place] [facility] 5 09:18:25 Breastfe eding painful 237834947 Active Radha [place] [facility] 6 11:25:47 Pain in pelvis 35539162 Active Radha [place] [facility] 6 11:25:47 Vaginal discharg e 049167519 Active white Radha moreno, [facility] 6 11:25:47 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 Procedures Surgical History Date Name Laterality Status Provider Name and Address Organization Details Recorded Time 05/08/19 16 Cholecystectomy completed Radha Garcia [facility] 11/03/2015 11:25:48 01/15/20 15 IUD Insertion completed Ricardo Box [facility] 01/14/2015 12:23:57 04/18/20 12 Date of Last Pap Smear completed Mily Parsons MA [facility] 05/06/2014 16:14:24 05/08/19 10 Appendectomy completed Maida Do MA [facility] 06/17/2014 11:12:04 Imaging Results None recorded. Procedure [...] Updated DateTime 9 162.56 cm 36.7 kg/m2 85062.0 4 g 97.9 [degF] 16 /min 76 /min 124/86 mm[Hg] Jenelle Groves [place] - [facility] 9 12:24:37 Date Recorded Body height Body mass index (BMI) Body weight Systolic And Diastolic Provider Name and Address Organization Details Last Updated DateTime 08/29/2018 162.56 cm 36.2 kg/m2 25410.99 g 130/94 mm[Hg] Shahrzad Barrera MA [facility] 08/29/2018 11:38:34 Date Recorded Body height Body mass index (BMI) Body weight Body temperature Heart rate Respiratory rate Systolic And Diastolic Provider Name and Address Organization Details Last Updated DateTime 9 162.56 cm 36 kg/m2 27767.6 1 g 98.3 [degF] 84 /min 20 /min 132/84 mm[Hg] Jenelle Groves MA [facility] 9 12:15:41 Date Recorded Body height Body mass index (BMI) Body weight Body temperature Heart rate Respiratory rate Systolic And Diastolic Provider Name and Address Organization Details Last Updated DateTime 9 162.56 cm 35.5 kg/m2 53125.9 7 g 98.3 [degF] 70 /min 18 /min 130/80 mm[Hg] Jenelle Groves MA [facility] 9 10:43:45 Date Recorded Body height Body mass index (BMI) Body weight Heart rate Respiratory rate Body temperature Systolic And Diastolic Provider Name and Address Organization Details Last Updated DateTime 9 162.56 cm 36.3 kg/m2 35547.7 9 g 86 /min 20 /min 98.3 [degF] 130/82 mm[Hg] Jenelle Groves MA [facility] 9 11:02:19 Social History Question Answer Notes LastModified by Organizat ion Details LastModified Time Tobacco Smoking Status Never Smoker Maida Do MA [facility] 06/17/2014 11:12:04 Do You Have An [...] Information not available 06/17/2014 Marital Status [place] [address] Informatio n not available 06/17/2014 What Was [...] SNOMED-CT Code Diagnosis ICD10 Code Diagnosis Note [id number] MD Lalo Weaver ([facility]) [address] [facility] [place] [address] 05/06/2014 15:15:04 05/07/2014 13:43:54 10291628 test positive [id number] Joan Blas [facility] Lalo Husain ([facility]) [address] [place] [address] 05/22/2014 14:23:39 05/22/2014 15:25:47 [id number] MD Lalo Roldan ([facility]) [address] [facility] [place] [address] 06/17/2014 10:44:30 06/17/2014 15:08:09 [id number] MD Lalo Roldan ([facility]) [address] [facility] [place] [address] 07/15/2014 10:26:03 07/16/2014 09:23:26 Normal 50147322 [id number] MD Lalo Weaver ([facility] 122) [address] [place] [address] 08/12/2014 09:35:12 08/12/2014 12:42:08 Normal [id number] MD Lalo Weaver ([facility]) [address] [facility] [place] [address] 08/26/2014 11:56:11 08/27/2014 16:10:13 [id number] MD Lalo Weaver ([facility]) [address] [place] [address] 09/09/2014 14:42:01 09/09/2014 15:30:17 [id number] MD Lalo Weaver ([facility]) [address] [place] [address] 09/23/2014 09:49:09 09/23/2014 15:23:49 [id number] MD Lalo Weaver ([facility]) [address] [place] [address] 10/07/2014 10:59:01 10/07/2014 11:38:07 [id number] MD Lalo Weaver ([facility]) [address] [place] [address] 10/21/2014 09:36:51 10/23/2014 12:51:20 [id number] MD Lalo Weaver ([facility]) [address] [place] [address] 11/04/2014 09:43:59 11/04/2014 14:45:01 [id number] Normal [id number] [id number] MD Lalo Weaver ([facility]) [address] [facility] [place] [address] 11/11/2014 11:18:25 11/11/2014 14:54:02 [id number] Maternal c are for diminished movements 555149902 [id number] MD Lalo Weaver ([facility]) [address] [facility] [place] [address] 11/18/2014 10:46:59 11/18/2014 11:58:55 [id number] MD Lalo Weaver ([facility]) [address] [place] [address] 11/24/2014 08:49:50 11/24/2014 10:29:51 [id number] MD Lalo Weaver ([facility]) [address] [place] [address] 12/24/2014 09:05:47 12/24/2014 12:04:57 care [id number] MD Lalo Weavre ([facility]) [address] [facility] [place] [address] 01/14/2015 11:47:27 01/14/2015 12:33:02 care 694579141 Uses contraception [id number] MD Lalo Weaver Womens ([facility] 122) [address] [place] [address] 01/19/2015 15:46:51 01/20/2015 09:49:17 IUD check 267890700 [id number] MD Lalo Weaver Womens ([facility] 122) [address] [place] [address] 02/11/2015 10:38:39 02/18/2015 18:08:10 IUD check 753371078 Z30.431 [id number] Joan Blas [facility] Lalo Womenjavi ([facility] 122) [address] [place] [address] 11/03/2015 11:00:12 11/03/2015 14:33:42 detection examination 33463932 Z32.00 IUD check 774610039 Z30. 222 [id number] MD Lalo HURTADO 14 IM [address] [facility] [place] [address] 07/04/2018 09:50:09 07/04/2018 16:26:43 Cervical lymphadenopathy 464876638 R59.0 Had a cough since 02/2018, on and off No traveling. No cat. Weight stable overall. Fatigue - despite sleeping. No dental issues. No focal weakness. Sweaty at times. Irregular periods. Neuro intact. ENT will do US +/- biopsy soon. Labs. Check for mono, syphilis, CMV, CXR. 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 Check TSH [id number] MD Lalo HURTADO 14 IM [address] [place] [address] 07/27/2018 12:09:33 07/31/2018 15:49:44 Cervical lymphadenopathy 571462101 R59.0 Had a cough since 02/2018, on [...] second ENT opinion. Upper resp iratory infection 71335531 J06.9 Strept and Flu negative. Exam unremarkab le. Conservati ve management . [id number] MD Lalo Chambers 14 OB [address] [place] [address] 08/29/2018 11:23:12 08/30/2018 09:21:21 Gynecologic examination 16666788 Z01.419 CBE and pelvic exam performedP t is on her menstrual cycle, will RTC for pap smear Venereal d isease screening 109634347 Z11.3 Anemia 026185117 D64.9 Hemorrhoids 12973267 K64 .9 [id number] MD Lalo HURTADO [address] IM [address] [facility] [place] [address] 09/05/2018 12:08:49 09/06/2018 10:44:23 Acute sinusitis 85212813 J01.90 4 days, worsening coughs, chest congestion . Exam sinusitis. Already on antihistam althea, PPI, Augmentin with ENT. Try home Flonase, add mucinex. Mean corpu scular volume below reference range 974765997 R71.8 MCV still low with Edi Analyst. 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 FeS - taking two tab now. Inc to three - RTC 2mo for ferritin check. [id number] MD Lalo HURTADO 14 IM [address] [facility] [place] [address] 11/13/2018 10:37:12 11/27/2018 11:36:00 Cervical lymphadenopathy 075578139 R59.0 06/2018: Had a cough since 02/2018, [...] done biopsy - result benign. Chronic gastritis 629501 9 K29.50 Followed by GI.Chronic gastritic, H pylori infection - pt was treated. Per pt, her esophagus was also dilated. Hemorrhoids 56524429 K64 .9 Followed by Gen sx - candidate for hemorrhoid ectomy. History of Helicobacter pylori infection 6877958743 5277099 Z86.19 Followed by GI - treated [id number] MD Lalo HURTADO 14 IM [address] [facility] [address] [place] [address] 02/13/2019 10:52:03 02/14/2019 08:35:16 Dizziness 716476090 R42 Thyroid was low with Edi Analyst recently - pt will be rechecked by [...] ID Guarantor Name 09/05/2018 1 [place] [employer] Yessica Young [id number] Yessiac oM 01/08/[address] [facility] (MEDICAID HMO) [facility] Yessica Young [id number] Yessica Mo 03/12/2019 2 [place] Yessica Young [id number] Yessica Mo 11/30/2020 1 [place] [id number] Luis Antonio Mo [id number] Yessica Mo 01/19/2015 1 [place] [employer] Yessica Young [id number] Yessica Mo 11/03/2015 1 [facility] (MEDICAID HMO) [id number] Yessica Young [id number] Yessica Mo 06/19/2018 1 *SELF PAY* Me [...] pt wants a second opinion Lucero moreno, [place] - [facility] 07/31/2018 15:32:25 08/29/2018 text/html Annual GYNReport [...] PMDD Ricardo Ramirez MD Attn: Accounting,[address] [place], [address], [facility] 08/29/2018 16:15:04 09/05/2018 text/html 23yo female is [...] Domestic Partner Domestic Partner Phone Father Name Floor Covering Printer Status 05/06/20 14 1 A Positive Luis Antonio Mo CLOSED Fetus Data First Name Last Name Admitted to NICU Weight (g) Sex Living Outcome Pediatric Complications Fetus ID Race Codes Race Delivery Type CHASITY ESCAMILLA false 4309.12 4 F Full Term [id number] [id number] White Vaginal Problems Problem Notes Problem Name Start Date End Date Resolution Snomed Code Not e Infective vaginitis 940379454 Maternal care for diminished movements 193873365 Darren Calculation Initial Darren Date Initial Exam [...] Type Weight in lbs Pre/Post Dialysis Refused 203.042558401199 BP Diastolic BP Location Tested BP Systolic BP Type 64 L arm 118 sitting Fetus Heart Rate Present Fetus Movement Comments Flowsheet Date 05/22/2014 Mckinney Score Blood Edema Fundus Height Fundus Units Glucose Ketones Leukocytes Nitrite Labor Signs Protein Cervic Dilation Cervic Effacement Cervic Station neg none none negative neg Type Weight in lbs Pre/Post Dialysis Refused 198.567486265117 BP Diastolic BP Location Tested BP Systolic [...] Type Weight in lbs Pre/Post Dialysis Refused 164.70150454474 BP Diastolic BP Location Tested BP Systolic [...] Type Weight in lbs Pre/Post Dialysis Refused 201.003055771663 BP Diastolic BP Location Tested BP Systolic [...] Type Weight in lbs Pre/Post Dialysis Refused 203.74253403825 BP Diastolic BP Location Tested BP Systolic BP Type 68 128 Fetus Heart Rate Present A 142 Present Fetus Movement A Yes Comments 28 weeks today Flowsheet Date 08/26/2014 Mckinney Score Blood Edema Fundus Height Fundus Units Glucose Ketones Leukocytes Nitrite Labor Signs Protein Cervic Dilation Cervic Effacement Cervic Station 26 cm none Type Weight in lbs Pre/Post Dialysis Refused 203.94561113818 BP Diastolic BP Location Tested BP Systolic BP Type 74 L arm 122 sitting Fetus Heart Rate Present A 146 Present Fetus Movement A Yes Comments Flowsheet Date 09/09/2014 Mckinney Score Blood Edema Fundus Height Fundus Units Glucose Ketones Leukocytes Nitrite Labor Signs Protein Cervic Dilation Cervic Effacement Cervic Station 30 cm none Type Weight in lbs Pre/Post Dialysis Refused 206.412562991947 BP Diastolic BP Location Tested BP Systolic BP Type 60 L arm 120 sitting Fetus Heart Rate Present A 154 Present Fetus Movement A Yes Comments Flowsheet Date 09/23/2014 Mckinney Score Blood Edema Fundus Height Fundus Units Glucose Ketones Leukocytes Nitrite Labor Signs Protein Cervic Dilation Cervic Effacement Cervic Station 32 cm none Type Weight in lbs Pre/Post Dialysis Refused 205.402903950579 BP Diastolic BP Location Tested BP Systolic BP Type 68 110 Fetus Heart Rate Present A 155 Fetus Movement A Yes Comments Flowsheet Date 10/07/2014 Mckinney Score Blood Edema Fundus Height Fundus Units Glucose Ketones Leukocytes Nitrite Labor Signs Protein Cervic Dilation Cervic Effacement Cervic Station none Type Weight in lbs Pre/Post Dialysis Refused 208.466712144948 BP Diastolic BP Location Tested BP Systolic BP Type 78 110 sitting Fetus Heart Rate Present A 154 Fetus Movement A Yes Comments growth scan ordered Flowsheet Date 10/21/2014 Mckinney Score Blood Edema Fundus Height Fundus Units Glucose Ketones Leukocytes Nitrite Labor Signs Protein Cervic Dilation Cervic Effacement Cervic Station 37 cm none Type Weight in lbs Pre/Post Dialysis Refused 213.955909044542 BP Diastolic BP Location Tested BP Systolic BP Type 72 118 sitting Fetus Heart Rate Present A 140 Present Fetus Movement A Yes Comments gbs today. Flowsheet Date 11/04/2014 Mckinney Score Blood Edema Fundus Height Fundus Units Glucose Ketones Leukocytes Nitrite Labor Signs Protein Cervic Dilation Cervic Effacement Cervic Station 37 cm none Type Weight in lbs Pre/Post Dialysis Refused 216.503613572269 BP Diastolic BP Location Tested BP Systolic [...] Type Weight in lbs Pre/Post Dialysis Refused 217.458837317852 BP Diastolic BP Location Tested BP Systolic [...] Type Weight in lbs Pre/Post Dialysis Refused 221.604846902206 BP Diastolic BP Location Tested BP Systolic [...] Type Weight in lbs Pre/Post Dialysis Refused 223.138195718074 BP Diastolic BP Location Tested BP Systolic [...] At Estimated Date of Delivery false Thalassemia (Stateless, [place] Islander, Mediterranean, Or Background): MCV < 80 false Neural Tube Defect (Meningom yelocele, Spina Bifida, Or Anencephaly) false Congenital Heart Defect false Down Syndrome false Curt-Sachs (eg, Denominational, Cajun , [place]) false Yung Disease false Sickle Cell Disease [...] Domestic Partner Domestic Partner Phone Father Name Floor Covering Printer Status 06/17/19 15 1 CLOSED Fetus Data First Name Last Name Admitted to NICU Weight (g) Sex Living Outcome Pediatric Complications Fetus ID Race Codes Race Delivery Type 3515.33 8 F Full Term [id number] Vaginal Darren Calculation Initial Darren Date Initial [...]
--- OUTSIDE RECORDS SUMMARY | 2024-11-20 00:13 | XMS_ITS | Data Portability ---
Author Organization [facility] Address [address] [place] [address] Care Team Providers Care Sap Portal Developer Name Role Phone [facility] EDUIN HAMMONDS Side Laster Staple JILLIAN LAO Primary Care Provider Assessment Encounter [...] d. Imaging non-str ess test 2024 [id number], [address], [place], [address], 11/15/2024 09:25:55 [place], obstetr ic, follow- up [address], [address], [place], [address], 11/14/2024 20:41:29 US, obstetr ic, biophys ical profile + non-str ess test [address], [address], [place], [address], 11/14/2024 20:41:29 US, obstetr ic, biophys ical profile + non-str ess test [address], [address], [place], [address], 11/14/2024 20:41:29 US, obstetr ic, follow- up [address], [address], [place], [address], 11/14/2024 20:41:29 non-str ess test 2024 025 [email or web address], [address], [place], [address], 11/07/2024 07:45:10 US, obstetr ic, biophys ical profile + non-str ess test 2024 025 [facility], [address], [place], [address], 11/06/2024 17:48:20 US, obstetr ic, biophys ical profile + non-str ess test 2024 025 [facility], [address], [place], [address], 11/06/2024 17:48:32 Medication Orders None recorde d. Patient TargetsNo targets recorded. Patient InstructionsNo instructions recorded. Reason for Referral None Reported. Results Created Date Observation Date Name Description Value Unit Range Abnormal Flag Note LastModifiedBy Organization Detail LastModifiedTime 10/10/19 25 10/09/2024 , ayo holley, limit ed No observ ation record ed. [facility] [address], [place], [address], 10/09/2024 17:38:41 10/10/19 25 10/09/2024 US, ayo tric, follo w-up No observ ation record ed. [facility] [address], [place], [address], 10/09/2024 17:38:53 10/10/19 25 10/09/2024 US, ayo tric, follo w-up No observ ation record ed. [email or web address] [address], [place], [address], 10/14/2024 10:19:44 10/23/19 25 10/22/2024 US, obstmickey tric, follo w-up No observ ation record ed. [email or web address] [address], [place], [address], 10/22/2024 17:16:15 10/23/1910/22/2024 US, obste tric, follo w-up No observ ation record ed. [email or web address] [address], [place], [address], 10/22/2024 17:16:31 10/23/19 25 10/22/2024 US, obstmickey holley, follo w-up No observ ation record ed. LANAROSALIA [address], [place], [address], 10/29/2024 21:52:03 10/27/19 25 10/23/2024 non-s tress test No observ ation record ed. [email or web address] [address], [place], [address], 10/26/2024 08:57:06 10/29/19 25 10/23/2024 non-s tress test No observ ation record ed. [email or web address] [address], [place], [address], 10/28/2024 11:44:35 10/31/19 25 10/30/2024 US, ayo holley, bioph ysica l profi le + non-s tress test No observ ation record ed. [email or web address] [address], [place], [address], 10/30/2024 13:28:58 10/31/19 25 10/30/2024 US, ayo holley, bioph ysica l profi le + non-s tress test No observ ation record ed. [email or web address] [address], [place], [address], 10/30/2024 13:29:11 10/31/19 25 10/30/2024 US, obste tric, follo w-up No observ ation record ed. [email or web address] [address], [place], [address], 10/31/2024 18:00:31 11/07/19 25 11/06/2024 US, obste tric, bioph ysica l profi le + non-s tress test No observ ation record ed. [email or web address] [address], [place], [address], 11/06/2024 17:48:20 11/07/19 25 11/06/2024 US, obste tric, bioph ysica l profi le + non-s tress test No observ ation record ed. [email or web address] [address], [place], [address], 11/06/2024 17:48:32 11/07/19 25 11/06/2024 non-s tress test No observ ation record ed. [email or web address] [address], [place], [address], 11/06/2024 17:22:40 11/07/19 25 11/06/2024 US, obste tric, bioph ysica l profi le + non-s tress test No observ ation record ed. [email or web address] [address], [place], [address], 11/11/2024 12:03:01 11/10/19 25 11/09/2024 imagi ng/di agnos tic resul t No observ ation record ed. [address], [place], [address], 11/11/2024 17:42:12 11/13/19 25 11/12/2024 non-s tress test No observ ation record ed. [email or web address] [address], [place], [address], 11/19/2024 08:29:48 11/14/1911/13/2024 non-s tress test No observ ation record ed. [email or web address] [address], [place], [address], 11/14/2024 14:45:58 11/14/1911/13/2024 US, obste tric, follo w-up No observ ation record ed. [email or web address] [address], [place], [address], 11/13/2024 18:14:47 11/14/1911/13/2024 US, obste tric, bioph ysica l profi le + non-s tress test No observ ation record ed. [email or web address] [address], [place], [address], 11/13/2024 18:14:56 11/14/1911/13/2024 US, obste tric, bioph ysica l profi le + non-s tress test No observ ation record ed. [email or web address] [address], [place], [address], 11/13/2024 18:15:06 11/14/1911/13/2024 US, obste tric, follo w-up No observ ation record ed. [email or web address] [address], [place], [address], 11/13/2024 18:15:15 11/14/1911/13/2024 non-s tress test No observ ation record ed. [email or web address] [address], [place], [address], 11/13/2024 15:40:45 11/14/19 25 11/13/2024 US, obste tric, follo w-up No observ ation record ed. LANA [address], [place], [address], 11/17/2024 13:32:08 11/18/19 25 11/17/2024 imagi ng/di agnos tic resul t No observ ation record ed. [address], [place], [address], 11/19/2024 09:08:52 Result Notes None recorded. Problems Name Problem SNOMED Code Status Onset Date Resolution Date Notes Provider Name and Address Organization Details Recorded Time Pregnanc y 87177787 Completed 202106/09/2022 Kenyetta Solano [facility], [facility] 5 16:03:06 Hypothyr oidism 46774259 Active Eli Bohharveynstieh l [facility], [facility] 3 15:14:45 Hypothyr oidism 16063900 Completed Eli Bohnenstie l [facility], [facility] 3 15:14:45 Antenata l care: history of infertil ity 081295305 Completed Eli Bohnenstieh l [facility], [facility] 3 15:14:46 Group B Streptoc occus carrier 1401426901 103 Completed bacteriu berta Eli Bohnenstieh l null, [facility] 3 15:14:45 Maternal obesity complica ting pregnanc y, childbir th and the puerperi um, antepart um 4392662794 07 Completed BMI 39- ante testing at 37w Eli Chaveznstieh l [facility], [facility] 3 15:14:46 Chronic hyperten allison in obstetri c context 2331334 Completed procardi a , baseline labs, ASA Eli Bohnenstieh l null, [facility] 3 15:14:46 Placenta circumva llata 1560655 Completed Serial growth u/s Eli alvarado null, [facility] 3 15:14:45 Pre-ecla mpsia 458793477 Completed Eli moreno, [facility] 3 15:14:45 Abnormal cervical Papanico laou smear 616495155 Active 2023 3 lgsil HPV high risk 1 ascus HPV high risk Kenyetta Solano [facility], [facility] 4 11:59:57 Herpes simplex 87227681 Active 2024 Kenyetta Solano [facility], [facility] 5 16:40:53 Human papillom a virus infectio n 872812837 Active 2024 Kenyetta Solano [facility], [facility] 5 16:40:59 Endometr iosis (clinica l) 445118011 Active 2024 Kenyetta Solano [facility], [facility] 5 16:41:22 Pregnanc y 44969754 Active 2024 Kenyetta Solano [facility], [facility] 5 16:03:06 Twin pregnanc y 89701783 Active 38 wk delivery antenata l testing @ 32wks per [facility] Schedule d rpt 08/27 us ONLY Tabatha Panchito null, [facility] 5 12:20:16 Antenata l care: history of infertil ity 135258992 Active Peter Bryant, DUNIA [address], [place], [address], [place] [facility] 5 13:48:37 Past pregnanc y history of pre-ecla mpsia 2547456963 88334 Active bASA x2 Tabatha moreno, [facility] 17:10:40 Large for gestatio n age fetus 632457760 Active less then 30 sec shoulder dystocia Peter Bryant CNM [address], [place], [address], [facility] 5 13:51:09 Past pregnanc y history of shoulder dystocia 060670977 Active Peter Bryant CNM [address], [place], [address], [facility] 5 13:52:04 Chronic hyperten allison in obstetri c context 1404047 Active Peter Bryant CNM [address], [place], [address], [facility] 5 13:52:55 Palpitat ions 14088436 Active Holter monitor faxed to [facility] Cardiolo gy 07/29 Tabatha moreno, [facility] 5 14:05:23 Palpitat ions 42432414 Active Holter monitor faxed to [facility] nt Cardiolo gy 324 Tabatha moreno, [facility] 5 14:05:23 Migraine 68471009 Active amadoru m, Excedrin tension, sumatrip tatum Tabatha Flanagan null, [facility] 5 17:11:50 Migraine 52797990 Active magnesiu m, Excedrin tension, sumatrip tatum Tabatha moreno, [facility] 17:11:50 Glucose toleranc e test outside referenc e range 479275188 Active 2024 5 checking blood sugars for 2 week instead for doing 3 hour Kenyettaelif moreno, [facility] 5 17:53:21 Glucose toleranc e test outside referenc e range 985536954 Active 2024 5 checking blood sugars for 2 week instead for doing 3 hour Kenyetta moreno, [facility] 5 17:53:21 Gestatio nal diabetes mellitus 09255379 Active 2024 Kenyetta moreno, [facility] 5 11:47:25 Gestatio nal diabetes mellitus 62933683 Active 2024 Kenyetta Solano [facility], [facility] 11:47:25 Finding of general energy 214888902 Completed 201807/28/2020 Fatigue; Recorded Elsewher e: No Locat ion: Chaya arevalo [facility] S ource: EHR Dinkey Operator Slate mark: N Gretelti ce ID: [id number] Emmanuel lable Time: 10:45:00 AM Messi Garcia MD [address], [place], [address], [facility] 15:00:00 Acute vaginiti s 93166332 Completed 201807/28/2020 Vaginiti s;Record ed Elsewher e: No Locat ion: Chaya arevalo [facility] S ource: EHR Dinkey Operator Slate mark: N Gretelti ce ID: [id number] Emmanuel lable Time: 10:45:00 AM Messi Garcia MD [address], [place], [address], [facility] 1 15:00:04 Removal of intraute rine device Completed 201807/28/2020 Encounte r for removal of IUD;Earl rded Elsewher e: No Locat ion: Chaya arevalo [facility] S ource: EHR Dinkey Operator Slate mark: N Practi ce ID: [id number] Emmanuel lable Time: 10:45:00 AM Messi Garcia MD [address], [place], [address], [facility] 15:00:08 Problem Notes None recorded. Procedures Surgical History Date Name Laterality Status Provider Name and Address Organization Details Recorded Time 024 [facility] 16:42:07 024 Date of Last Pap Smear [facility] 08/16/2023 12:00:08 024 procedure [facility] ear [facility]/16/2023 12:01:09 023 Colposcopy completed Peter Bryant CNM [address], [place], [address], [facility] 06/15/2022 16:59:00 023 Colposcopy completed Kenyetta [facility] 06/15/2022 16:38:21 023 [facility]2022 16:38:49 022 intrauterine artificial insemination completed Kenyetta Solano [facility] 06/26/2021 09:20:58 021 intrauterine artificial insemination completed Kenyettaelif Solano [facility] 06/17/2021 12:15:01 021 intrauterine artificial insemination completed Kenyettaelif Solano [facility] 06/17/2021 12:14:55 021 [facility]uterine [facility] 06/17/2021 12:14:45 021 intrauterine artificial insemination completed [facility] 06/17/2021 12:14:39 021 LAPAROSCOPY, DIAGNOSTIC (SURG) completed [facility] 08/19/2020 14:04:12 020 completed [facility] 10/01/2020 16:23:53 020 Colonoscopy completed [facility] 01/22/2021 10:59:09 019 procedure on neck completed [facility] 12/25/2019 11:25:51 019 hemorrhoidectomy completed [facility] 12/25/2019 11:24:57 016 cholecystectomy completed [facility] 07/16/2021 17:21:15 010 Appendectomy completed [facility] 12/25/2019 11:24:44 Imaging Results None recorded. Procedure Notes None recorded. Medical Equipment None Reported. Allergies Allergen ID Allergen Name Allergen Category Reaction Reaction Severity Criticality Documentation Date Start Date Code Code System Note Provider Name and Address Organization Details Recorded Time 32873 prednison e medicatio n hives Not available Not available 07/03/2024 8640 RxNorm Peter Bryant CNM [address], [place], [address] , [facility] 09:52:22 Medications Name Sig Start [...] Pregnyl 10,000 unit intramusc ular solution Inject 81989 units every day by intramus cular route [...] Prescrib ed Elsewher e: Yes Loca tion: [facility] M odify By: [email or web address] z Encoun [...] VAIL INJECTIO N INTO RIGHT HIP LOT [id number] EXP 12/2021 Not Available Not Available Not [...] Address Organization Details Last Updated DateTime 11/06/2024 620051.19212 g 133/87 mm[Hg] [facility] 11/06/2024 15:35:27 Date Recorded Body weight Systolic And Diastolic Provider Name and Address Organization Details Last Updated DateTime 11/13/2024 835639.57424 g 127/89 mm[Hg] [facility] 11/13/2024 15:38:06 Social History Question Answer Notes LastModified by Organizat ion Details LastModified Time Tobacco Smoking Status Never Smoker [facility] 06/15/2022 15:31:26 Do You Have An Advance Directive? No Information n ot available 07/28/2020 If You Are , What Was Your Level Of Alcohol Consumption Prior To ? None [email or web address] Information not available 06/15/2022 Are You Blind [...] Of Diet Are You Following? REGULAR Information n ot available 08/19/2020 What Is The Highest Grade Or Level Of School You Have Completed Or The Highest Degree You Have Received? [id number] Information not available 07/28/2020 Are There Any Guns Present In Your Home? No Information not available 07/28/2020 What Was The Date Of Your Most Recent Tobacco Screening? 10/23/2024 [email or web address] Information not available 10/23/2024 Have You Ever [...] How Much Tobacco Do You Smoke? No [email or web address] Information not available 12/25/2019 Do You Use [...] is your level of alcohol consumption? Occasional [email or web address] Information not available 12/25/2019 Do you or have you ever used smokeless tobacco? Never used smokeless tobacco [email or web address] Information not available 06/15/2022 Are you able to walk? YESWOREST [email or web address] Information not available 08/19/2020 Are you able to care for yourself? 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 No Information not available 06/15/2022 Do you or have you ever used e-cigarettes or vape? Never used electronic cigarettes [email or web address] Information not available 06/15/2022 What is your exercise level? Occasional [email or web address] Information not available 12/25/2019 Mental Status Question Answer Note LastModified by Organization D etails LastModified Time Do you feel stressed (tense, restless, nervous, or anxious, or unable to sleep at night)? [id number] [email or web address] Information not available 08/19/2020 Family History Relationship Description Onset Age of this Age Resolved Age Notes LastModified by Organization Details LastModified Time Maternal Grandmother Disorder of thyroid gland [email or web address] Not available 01/26 16:14:56 Mother Female infertility [email or web address] Not available 08/2024 13:51:15 Mother Disorder of thyroid gland [email or web address] Not available 01/26 16:14:56 Father Malignant tumor of pancreas [email or web address] Not available 2024 13:51:15 Brother Malignant neoplasm of prostate [email or web address] Not available 2024 13:51:15 Paternal Grandmother Malignant tumor of breast Not available 01/26 16:14:56 Paternal Grandmother Malignant neoplasm of lung [email or web address] Not available 01/26 16:14:56 Medical History Condition Response Allergies (Food, seasonal, environmental ) N Other Y Drug/Latex Allergies/Reactions N Breast Cancer N Blood Transfusion N Lung Disease N Dermatologic Disorders N Defects or Inherited Disease N Breast Problem N Gestational Diabetes Y Hematologic disorders N Anesthesia Complications N History of STI Y Deep Vein Thrombosis N Polycystic ovary syndrome N Anxiety Disorder Y Autoimmune disease N Arthritis N Polyps N Infertility Y History of abnormal pap Y Acid Reflux (GERD) N Cancer N [...] SNOMED-CT Code Diagnosis ICD10 Code Diagnosis Note [id number] Peter Bryant CNM [place] [address],[place] [address] 12/25/2019 10:57:08 12/25/2019 12:38:39 Breast infection 685557218 N61.0 Trying to conceive 73303 9001 Z31.9 [id number] Messi Garcia MD [place] [address],[place] [address] 06/30/2020 12:07:39 06/30/2020 12:55:49 Pain in pelvis 92441171 R10.2 [id number] Messi Garcia MD [place] [address],[place] [address] 07/02/2020 12:31:33 07/02/2020 16:54:32 Pain in pelvis 72839015 R10.2 This patient is a 25-year-ol d [...] informed consent process. To check fallopian tubes. [id number] Messi Garcia MD [place] [address],[facility] [place] [address] 07/23/2020 10:07:53 07/23/2020 10:09:56 83238 Messi Garcia MD [place] [address] [address] 07/28/2020 13:53:59 07/28/2020 15:27:02 Chest pain 19699680 R07.9 this patient is 25-year-ol d female [...] this patient s visit, including available hand diesel locomotive firer upon arrive, temperatur e check and being asked a series of screening questions. All staff wore face coverings during this encounter, as well as provided additional cleaning and sanitizing of all surfaces, including countertop s, pens, chairs, door handles, light switches, etc, prior to and following the patient s visit. [id number] Messi Garcia MD [place] [address],[place] [address] 08/04/2020 14:07:07 08/04/2020 14:50:37 Abnormal uterine bleeding 8206333841 9100 N93.9 this patient is a 25-year-ol [...] ovulation [place] [id number] Peter Bryant [facility] [address],[place] [address] 08/19/2020 13:46:09 08/19/2020 15:50:34 Trying to conceive 785084645 Z31.9 [id number] Messi Garcia MD [place] [address],[place] [address] 09/02/2020 11:05:51 09/02/2020 12:44:09 Female infertility 9630534 N97.9 [id number] Peter Bryant [facility] [address],[place] [address] 09/04/2020 08:09:36 09/04/2020 09:29:50 Artificial insemination 76893271 Z31.83 [id number] Peter Bryant [facility] [address],[place] [address] 09/03/2020 18:20:49 09/03/2020 22:54:04 Trying to conceive 159821116 Z31.9 [id number] Messi Garcia MD [place] [address],[place] [address] 09/09/2020 17:51:09 09/09/2020 18:07:37 Pain in pelvis 55420401 R10.2 This patient is a 25-year-ol d [...] informed consent process. To check fallopian tubes. 04398 Messi Garcia MD [place] [address],[place] [address] 09/22/2020 16:45:48 09/22/2020 17:17:04 Pain in pelvis 56709208 R10.2 This patient is a 25-year-ol d [...] informed consent process. To check fallopian tubes. [id number] Messi Garcia MD [place] [address],[facility] [place] [address] 10/01/2020 14:59:50 10/01/2020 15:16:34 Female infertility 5488834 N97.9 52854 Peter Bryant [facility] [address],[place] [address] 10/01/2020 16:21:54 10/01/2020 16:27:38 Trying to conceive 610664346 Z31.9 [id number] Peter Bryant [facility] [address],[place] [address] 10/02/2020 08:19:49 10/02/2020 09:46:38 Artificial insemination 79398621 Z31.83 [id number] Messi Garcia MD [place] [address],[place] [address] 10/14/2020 15:52:51 10/14/2020 16:51:20 Pain in pelvis 04513837 R10.2 This patient is a 25-year-ol d [...] informed consent process. To check fallopian tubes. [id number] Peter Bryant CNM [place] [address] [address] 10/21/2020 17:06:20 10/21/2020 17:33:05 Hypothyroidism 10143233 E03.9 check labs, will adjust meds if needed [id number] Messi Garcia MD [place] [address] [address] 11/30/2020 13:48:01 11/30/2020 13:52:51 Pain in pelvis 89852048 R10.2 This patient is a 25-year-ol d [...] informed consent process. To check fallopian tubes. [id number] Messi Garcia MD [place] [address] [address] 12/01/2020 14:00:56 12/01/2020 15:31:30 Pain in pelvis 95838694 R10.2 this patient is a 25-year-ol d [...] face-to-fa ce discussing this very complex topic. [id number] Peter Bryant [facility] [address],[place] [address] 01/22/2021 09:15:38 01/22/2021 10:35:42 Female infertility 1768291 N97.9 Gynecologi c examination 54883608 Z01.419 [id number] Messi Garcia MD [place] [address],[place] [address] 02/09/2021 09:19:46 02/09/2021 10:04:48 Female infertility 9625521 N97.9 [id number] Peter Bryant [facility] [address],[place] [address] 02/09/2021 14:29:50 02/09/2021 16:50:58 Trying to conceive 428268516 Z31.9 [id number] Peter Bryant [place] [address],[place] [address] 02/10/2021 09:41:42 02/10/2021 10:12:15 Female infertility 8978430 N97.9 Artificial insemination 28439121 Z31.83 [id number] Messi Garcia MD [place] [address],[place] [address] 04/28/2021 14:43:43 04/28/2021 15:19:59 Female infertility 2288168 N97.9 [id number] Peter Bryant [facility] [address],[place] [address] 04/28/2021 18:59:10 04/29/2021 09:31:07 Trying to conceive 998691328 Z31.9 [id number] Peter Bryant [facility] [address],[place] [address] 04/29/2021 09:31:15 04/29/2021 10:19:12 Artificial insemination 68812964 Z31.83 [id number] Nalini Salomon [facility] [address] [address] 05/25/2021 11:53:11 05/25/2021 16:54:31 Reduced libido 8135527 R68.82 Today we discussed trial of Wellbutrin [...] this patient s visit, including available hand diesel locomotive firer upon arrive, temperatur e check and being asked a series of screening questions. All staff wore face coverings during this encounter, as well as provided additional cleaning and sanitizing of all surfaces, including countertop s, pens, chairs, door handles, light switches, etc, prior to and following the patient s visit. 76850 Messi Garcia MD [facility] [address] [address] 06/22/2021 14:38:59 06/23/2021 09:16:44 Body mass index 30+ - obesity 299001653 Z68.37 This patient is a 26-year-ol d [...] on the dietitian schedule. Gynecologi c examination 95720015 Z01.419 Abnormal u terine bleeding 4887459161 9100 N93.9 58515 Messi Garcia MD [facility] [address],[place] [address] 06/25/2021 09:04:11 06/25/2021 09:23:27 Female infertility 9889308 N97.9 48822 Peter Bryant CNM [facility] [address],[place] [address] 1 06/25/2021 18:38:25 06/26/2021 09:09:27 Trying to conceive 478949872 Z31.9 30020 Peter Bryant CNM [facility] [address],[place] [address] 1 06/26/2021 09:13:57 07/01/2021 15:54:18 Artificial insemination 29591511 Z31.83 67200 Messi Garcia MD [facility] [address],[place] [address] 1 07/27/2021 17:11:55 07/27/2021 18:06:16 Uncertain viability of 024034860 O36.80X0 Z3A.01 [id number] Messi Garcia MD [facility] [address],[place] [address] 08/05/2021 09:17:05 08/05/2021 10:16:25 Abdominal pain in early 710901383 Z33.1 Z3A.01 23183 MD Rhina Zheng [address],[place] [address] 1 08/18/2021 10:17:54 08/18/2021 11:20:00 [id number] Peter Bryant CNM [facility] [address],[place] [address] 08/18/2021 10:18:19 08/19/2021 12:30:57 Amenorrhea 39313759 Z31.89 Z31.83 12813 Pretty Cotton MD [facility] [address],[place] [address] 1 09/10/2021 14:50:18 09/10/2021 15:34:33 screening 915804432 Z36.82 98185 Pretty Cotton MD [facility] [address],[place] [address] 1 09/10/2021 14:50:57 09/13/2021 15:22:01 Routine care 404982717 Z34.91 care: history of infertility 732194205 O09.[address] reptococcus carrier 3732620403 103 Z22.330 Hypothyroidism 69783019 E03.9 Maternal o besity complicating , childbirth and the puerperium, antepartum 1843917165 07 O99.211 [id number] Pretty Cotton MD [facility] [address],[place] [address] 09/27/2021 17:43:48 09/28/2021 10:23:00 Chronic hypertension complicating AND/OR reason for care during 62339019 O16.9 [id number] Pretty Cotton MD [facility] [address],[place] [address] 10/08/2021 14:49:27 10/08/2021 16:16:40 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 7979321 O16.9 care: history of infertility 503977050 O09.01 Hypothyroidism 55543779 E03.9 [id number] Messi Garcia MD [facility] [address],[place] [address] 11/03/2021 16:29:49 11/03/2021 18:37:35 screening 836584509 Z36.3 Z3A.20 [id number] Peter Bryant, [facility] [address],[place] [address] 11/03/2021 16:30:15 11/03/2021 18:37:10 Routine care 451807115 Z34.91 Anxiety 62476219 F41.9 [id number] MD Rhina Zheng [address],[place] [address] 12/03/2021 15:10:07 12/03/2021 16:20:49 Hypothyroidism 32040419 E03.9 [id number] MD Rhina Zheng [address],[place] [address] 1 12/03/2021 15:10:54 12/03/2021 17:08:45 Placenta circumvallata 3507605 O43.112 Z36.2 Z3A.24 [id number] MD Rhina Zheng [address],[place] [address] 1 12/29/2021 15:21:10 12/29/2021 16:01:38 Placenta circumvallata 1758780 O43.113 O10.013 O99.213 Z3A.28 [id number] Peter Bryant [facility] [address],[place] [address] 12/29/2021 15:22:44 12/29/2021 17:01:50 Routine care 134355822 Z34.91 - induced hypertension 12780272 O13.9 [id number] Messi Garcia MD [facility] [address],[place] [address] 1 01/13/2022 13:47:29 01/13/2022 14:39:17 Medical examination for suspected condition 031327727 Z03.79 [id number] Messi Garcia MD [facility] [address],[place] [address] 01/13/2022 13:47:50 01/13/2022 15:53:18 Routine care 319374258 Z34.83 [id number] Pretty Cotton MD [facility] [address],[place] [address] 1 01/17/2022 16:24:29 01/17/2022 18:16:59 Threatened premature labor - not delivered 264767681 O47.9 [id number] Pretty Cotton MD [facility] [address],[place] [address] 01/17/2022 16:35:15 01/19/2022 15:28:55 Threatened premature labor - not delivered 192753184 O47.9 [id number] Messi Garcia MD [facility] [address],[place] [address] 1 01/26/2022 14:52:57 01/26/2022 15:27:45 Chronic hypertension complicating AND/OR reason for care during 74291232 O16.9 [id number] Messi Garcia MD [facility] [address],[place] [address] 1 01/26/2022 14:54:57 01/26/2022 16:22:26 Placenta circumvallata 0050075 O43.113 Z3A.32 O10.013 424991 [facility] [address],[place] [address] 01/26/2022 14:55:32 01/26/2022 16:39:21 Routine care 171321327 Z34.91 [id number] Messi Garcia MD [facility] [address],[place] [address] 1 02/02/2022 16:59:59 02/02/2022 17:58:36 Maternal obesity complicating , childbirth and the puerperium, antepartum 0266653269 07 O99.213 [id number] Messi Garcia MD [facility] [address],[place] [address] 1 02/02/2022 17:00:19 02/02/2022 18:17:03 Chronic hypertension complicating AND/OR reason for care during 49076232 O10.013 Z3A.33 [id number] [facility] [address],[place] [address] 1 02/02/2022 17:00:45 02/02/2022 18:50:24 Routine care 432738540 Z34.91 [id number] Messi Garcia MD [facility] [address],[place] [address] 1 02/09/2022 16:53:15 02/09/2022 17:49:24 Maternal obesity complicating , childbirth and the puerperium, antepartum 7864904208 07 O99.213 [id number] Messi Garcia MD [facility] [address],[place] [address] 1 02/09/2022 16:53:36 02/09/2022 18:15:36 Chronic hypertension complicating AND/OR reason for care during 27154968 O10.013 O99.213 Z3A.34 [id number] [facility] [address],[place] [address] 1 02/09/2022 16:54:04 02/09/2022 18:25:27 Routine care 702625770 Z34.91 [id number] Messi Garcia MD [facility] [address],[place] [address] 1 02/16/2022 17:00:10 02/16/2022 17:56:48 Chronic hypertension complicating AND/OR reason for care during 98351999 O10.013 O99.213 Z3A.34 850807 Messi Garcia MD [facility] [address],[place] [address] 1 02/16/2022 17:00:39 02/16/2022 18:07:43 Chronic hypertension complicating AND/OR reason for care during 56147726 O10.013 Z3A.35 O99.213 [id number] Peter Bryant CNM [facility] [address],[place] [address] 02/16/2022 17:01:03 02/16/2022 18:20:17 Routine care 170084003 Z34.91 [id number] Messi Garcia MD [facility] [address],[place] [address] 02/18/2022 15:23:24 02/18/2022 15:53:12 Reduced movement 568641381 O36.8199 [id number] Peter EDwight Duvale [facility] [address],[place] [address] 1 02/23/2022 16:45:10 02/23/2022 18:18:35 Routine care 221233549 Z34.91 Large for gestation age fetus 586858292 O36.63X0 536403 Messi Garcia MD [facility] [address],[place] [address] 02/23/2022 16:42:55 02/23/2022 17:12:22 Chronic hypertension complicating AND/OR reason for care during 59749566 O10.013 Z3A.35 O99.213 [id number] Messi Garcia MD [facility] [address],[place] [address] 1 02/23/2022 16:43:28 02/23/2022 17:56:35 Chronic hypertension complicating AND/OR reason for care during 37829952 O10.013 O99.213 Z3A.36 006289 Pretty Cotton MD [facility] [address],[place] [address] 03/16/2022 14:15:55 03/17/2022 16:13:50 Pain in pelvis 37549988 R10.2 [id number] Messi Garcia MD [facility] [address],[place] [address] 1 03/17/2022 13:34:56 03/17/2022 14:02:57 Pain in pelvis 45940321 R10.2 this patient is a 25-year-ol d [...] face-to-fa ce discussing this very complex topic. [id number] Messi Garcia MD [facility] [address],[place] [address] 03/17/2022 13:35:31 03/18/2022 13:49:15 Pain in pelvis 83186541 R10.2 patient is a 27-year-ol d female [...] We spent over 20 minutes face-to-fa ce. 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 restart lexapro, to ed if any suicidal thoughts, reviewed se risks and benefits f/u 6 week med check if unavailabl e can do by phone Low grade squamous intraepithelial lesion on cervical Papanicolaou smear 5678998566 9105 R87.612 f/u pending pathology [id number] [facility] [address],[place] [address] 08/16/2023 11:38:58 08/16/2023 13:55:15 Pain in pelvis 68950863 R10.2 also start pelvic floor pT Gynecologi c examination 99446009 Z01.419 [id number] Messi Garcia MD [facility] [address],[place] [address] 1 08/22/2023 11:28:17 08/22/2023 12:06:29 Pain in pelvis 32798681 R10.2 patient is a 27-year-ol d female [...] We spent over 20 minutes face-to-fa ce. [id number] MD Rhina Zheng [address],[facility] [place] [address] 04/23/2024 09:16:05 04/23/2024 10:09:58 screening 860842332 Z36.87 O30.049 Z3A.01 [id number] Messi Garcia MD [facility] [address],[facility] [place] [address] 05/10/2024 15:16:46 05/10/2024 16:01:31 [id number] Peter Bryant CNM [facility] [address],[facility] [place] [address] 1 05/10/2024 15:17:03 05/10/2024 16:51:44 Amenorrhea 56987269 Z31.89 Z31.83 Dichorioni c diamniotic twin 854238099 O30.049 reviewed US plan us at 12 weeksnipt at 10 weeks with labsawait pap until pp visitrevie wed precaution s and educationh x preeclamps ia without severe features last [id number] Messi Garcia MD [facility] [address],[place] [address] 05/21/2024 11:09:17 05/21/2024 12:05:12 Threatened miscarriage 85469485 O20.0 O30.041 Z3A.09 [id number] Messi Garcia MD [facility] [address],[place] [address] 1 05/23/2024 17:26:08 05/24/2024 10:31:39 Threatened miscarriage 73735563 O20.0 O30.041 Z3A.09 [id number] Messi Garcia MD [facility] [address],[place] [address] 1 05/23/2024 18:31:17 05/24/2024 10:33:13 Pain in pelvis 85337287 R10.2 this patient is a 29-year-ol d [...] is to contact us if pain worsens. [id number] Messi Garcia MD [facility] [address],[place] [address] 05/29/2024 10:21:34 05/29/2024 11:12:31 condition affecting obstetrical care of mother 537562531 O36.8910 Z3A.10 [id number] Messi Garcia MD [facility] [address],[place] [address] 06/03/2024 16:41:37 06/04/2024 14:32:45 screening 141760816 Z36.82 Z3A.11 975751 [facility] [address],[place] [address] 06/05/2024 14:45:02 06/06/2024 16:44:18 Nausea and vomiting 74846486 R11.2 Migraine 78480522 G43.90 9 Routine an tenatal care 765896477 Z34.91 Twin 19329313 O30.009 [id number] Messi Garcia MD [facility] [address],[place] [address] 06/12/2024 17:23:11 06/12/2024 18:08:31 Medical examination for suspected condition 456111345 Z03.72 Z3A.12 [id number] Messi Garcia MD [facility] [address],[place] [address] 1 07/01/2024 16:17:41 07/01/2024 17:36:13 Dichorionic diamniotic twin 841539303 O30.042 Z3A.15 419207 [facility] [address],[place] [address] 07/03/2024 09:17:02 07/03/2024 09:55:31 Gestation period, 15 weeks 9833797 Z3A.15 055330 ALEC WILKINSON MD [facility] [address],[place] [address] 1 07/08/2024 10:41:29 07/08/2024 11:38:56 Pruritic rash 09426755 L28.2 Dichorioni c diamniotic twin 263710849 O30.049 Chronic hy pertension complicating AND/OR reason for care during 05748108 O16.9 Gestation period, 16 weeks 71782397 Z3A.16 532370 Messi Garcia MD [facility] [address],[place] [address] 07/12/2024 10:38:28 07/12/2024 11:50:01 [id number] [facility] [address],[place] [address] 1 07/31/2024 16:35:21 08/01/2024 09:45:58 Gestation period, 19 weeks 40727090 Z3A.19 Dichorioni c diamniotic twin 073414013 O30.049 Gastroesop hageal reflux disease 014520324 K21.9 [id number] Peter Bryant [facility] [address],[place] [address] 1 08/09/2024 12:12:22 08/09/2024 14:11:25 Pain in pelvis 93003879 R10.2 start physical therapy [id number] Messi Garcia MD [facility] [address],[place] [address] 08/22/2024 12:06:07 08/22/2024 13:36:01 Dichorionic diamniotic twin 859948866 O30.042 O36.8120 Z3A.23 [id number] Peter Bryant [facility] [address],[place] [address] 1 08/28/2024 14:16:16 08/30/2024 10:02:02 [id number] Peter Bryant [facility] [address],[place] [address] 1 08/29/2024 09:57:22 08/30/2024 10:26:31 Gestation period, 24 weeks 838334170 Z3A.24 [id number] Messi Garcia MD [facility] [address],[place] [address] 1 09/18/2024 11:30:12 09/18/2024 12:33:22 Dichorionic diamniotic twin 364657486 O30.042 O99.891 Z3A.26 [id number] Peter Bryant [facility] [address],[place] [address] 1 09/27/2024 14:05:42 09/27/2024 14:47:06 Gestation period, 28 weeks 78445065 Z3A.28 [id number] Messi Garcia MD [facility] [address],[place] [address] 1 10/09/2024 13:51:09 10/09/2024 15:10:27 Dichorionic diamniotic twin 034671540 O30.043 O32.1XX2 Z36.2 Z3A.29 [id number] Peter Bryant [facility] [address],[place] [address] 1 10/09/2024 13:51:24 10/09/2024 16:46:13 Gestation period, 29 weeks 68534189 Z3A.29 [id number] Messi Garcia MD [facility] [address],[place] [address] 10/22/2024 11:49:29 10/22/2024 13:06:50 Dichorionic diamniotic twin 416609169 O30.043 O24.410 O13.3 Z3A.31 515762 [facility] [address],[place] [address] 1 10/23/2024 14:57:19 10/27/2024 19:34:15 Twin 86781474 O30.009 [id number] Peter Bryant [facility] [address],[place] [address] 1 10/23/2024 14:57:44 10/23/2024 16:42:04 Gestation period, 31 weeks 71010472 Z3A.31 [id number] Messi Garcia MD [facility] [address],[place] [address] 1 10/30/2024 11:49:15 10/30/2024 12:53:32 Dichorionic diamniotic twin 397038369 O30.043 O24.410 O16.3 Z3A.32 455434 [facility] [address] 1 10/30/2024 11:49:41 10/30/2024 13:44:54 Gestation period, 32 weeks 6214936 Z3A.32 423690 Messi Garcia MD [facility] [address],[place] [address] 1 11/06/2024 14:02:15 11/06/2024 15:08:32 Dichorionic diamniotic twin 727192072 O30.043 O24.414 O24.410 255842 ALEC WILKINSON MD [facility] [address],[place] [address] 1 11/06/2024 14:02:26 11/06/2024 17:33:51 Chronic hypertension complicating AND/OR reason for care during 64968816 O10.919 [id number] [facility] [address],[place] [address] 11/06/2024 14:02:37 11/06/2024 16:26:16 Gestation period, 33 weeks 79594486 Z3A.33 Dichorioni c diamniotic twin 291741133 O30.043 [id number] Messi Garcia MD [facility] [address],[place] [address] 1 11/13/2024 13:58:59 11/13/2024 15:10:18 Dichorionic diamniotic twin 456051778 O30.043 O24.410 O16.3 O99.213 Z3A.34 485201 [facility] [address],[place] [address] 1 11/13/2024 13:59:12 11/13/2024 15:41:29 Chronic hypertension complicating AND/OR reason for care during 41859101 O10.919 759404 Peter Bryant CNM [facility] [address] [address] 1 11/13/2024 13:59:25 11/13/2024 16:05:11 Gestation period, 34 weeks 33902851 Z3A.34 Health Concerns Section Related Observation LastModified by Organization Detai ls LastModified Time None Recorded Concern Status LastModified by Organization Details LastModified Time None Recorded Advance Directives Directive N: Payers Insurance Date Sequence Insurance Name Policy Number Policy Steele Covered Member ID Steele Member ID Guarantor Name 05/10/2024 2 [facility] Chjc Xbb [id number] Yessica M Corzine 05/18/2021 1 [facility] [id number] Luis Antonio A Corzine [id number] Yessica M Corzine 06/15/2022 *SELF PAY* Me kartik M Corzine 08/31/2020 2 [facility] Luis Antonio Corzine [id number] Yessica M Corzine 08/31/2020 3 [facility] Jospeh Corzine [id number] Yessica M Corzine 09/04/2020 2 [facility] Luis Antonio Corzine [id number] Yessica M Corzine 09/23/2020 2 [facility] Jospeph Corzine [id number] Yessica M Corzine 11/17/2024 1 [facility] [id number] Luis Antonio A Corzine [id number] Yessica M Corzine 05/10/2024 3 [facility] [id number] [id number] FB BC [id number] Yessica M Corzine OBGyn Episode Ob Episode Information Episode Created Date Number of Fetuses Patient Bloodtype Patient rh Status Prepregnancy Weight lbs Domestic Partner Domestic Partner Phone Father Name Airplane Inspector Status 12/25/19 20 1 CLOSED Fetus Data [...] Domestic Partner Domestic Partner Phone Father Name Airplane Inspector Status 12/25/19 20 1 CLOSED Fetus Data [...] Domestic Partner Domestic Partner Phone Father Name Airplane Inspector Status 09/11/19 22 1 A Positive 221 CLOSED Fetus Data First Name Last Name Admitted to NICU Weight (g) Sex Living Outcome Pediatric Complications Fetus ID Race Codes Race Delivery Type 4224.07 55 M true Full Term [id number] Vaginal Delivery Problems Problem Notes TSH WNL/A+/Ha1c/CBC WNL Problem Name Start Date End Date Resolution Snomed Code Not e Hypothyroidism 69460554 care: history of infertility 911108981 Group B Streptococcus carrier 8344935325263 bacteriuria Maternal obesity complicating , childbirth and the puerperium, antepartum 989513926169 BMI 39- ante testing at 37w 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 1997945 maia ellsworth , baseline labs, ASA Placenta circumvallata 3094014 Serial growth u/s Pre-eclampsia 265523112 Darren Calculation Initial Darren Date Initial Exam [...] Date Ultra Sound Latest Days Gestation 0 09/13/2021 03/23/20 22 0 Pre- Flowsheet Flowsheet Date 09/10/2021 Mckinney Score Blood Edema Fundus Height Fundus Units Glucose Ketones Leukocytes Nitrite Labor Signs Protein Cervic Dilation Cervic Effacement Cervic Station neg none Type Weight in lbs Pre/Post Dialysis Refused Weight 225.787312154700 BP Diastolic BP Location Tested BP Systolic [...] Weight in lbs Pre/Post Dialysis Refused Weight 226.916638870926 BP Diastolic BP Location Tested BP Systolic [...] Weight in lbs Pre/Post Dialysis Refused Weight 224.303619795075 BP Diastolic BP Location Tested BP Systolic [...] Present Fetus Movement Comments Flowsheet Date 11/03/2021 Cmkinney Score Blood Edema Fundus Height Fundus Units Glucose Ketones Leukocytes Nitrite Labor Signs Protein Cervic Dilation Cervic Effacement Cervic Station neg none none trace Type Weight in lbs Pre/Post Dialysis Refused Weight 230.589841981396 BP Diastolic BP Location Tested BP Systolic [...] Weight in lbs Pre/Post Dialysis Refused Weight 234.427161750860 BP Diastolic BP Location Tested BP Systolic [...] Weight in lbs Pre/Post Dialysis Refused Weight 235.338143353416 BP Diastolic BP Location Tested BP Systolic [...] Weight in lbs Pre/Post Dialysis Refused Weight 239.675882565526 BP Diastolic BP Location Tested BP Systolic [...] Weight in lbs Pre/Post Dialysis Refused Weight 240.625555830234 BP Diastolic BP Location Tested BP Systolic [...] Weight in lbs Pre/Post Dialysis Refused Weight 242.323818074323 BP Diastolic BP Location Tested BP Systolic [...] Weight in lbs Pre/Post Dialysis Refused Weight 243.581036554015 BP Diastolic BP Location Tested BP Systolic [...] Weight in lbs Pre/Post Dialysis Refused Weight 242.471758773398 BP Diastolic BP Location Tested BP Systolic [...] Weight in lbs Pre/Post Dialysis Refused Weight 246.674946994790 BP Diastolic BP Location Tested BP Systolic [...] Weight in lbs Pre/Post Dialysis Refused Weight 246.015960442767 BP Diastolic BP Location Tested BP Systolic [...] Weight in lbs Pre/Post Dialysis Refused Weight 211.245353788628 BP Diastolic BP Location Tested BP Systolic [...] Weight in lbs Pre/Post Dialysis Refused Weight 211.508464878611 BP Diastolic BP Location Tested BP Systolic BP Type 86 L arm 126 sitting Fetus Heart Rate Present Fetus Movement Comments Flowsheet Date 04/08/2022 Mckinney Score Blood Edema Fundus Height Fundus Units Glucose Ketones Leukocytes Nitrite Labor Signs Protein Cervic Dilation Cervic Effacement Cervic Station Type Weight in lbs Pre/Post Dialysis Refused Weight 212.14281170467 BP Diastolic BP Location Tested BP Systolic BP Type 84 134 Fetus Heart Rate Present Fetus Movement Comments Flowsheet Date 05/27/2022 Mckinney Score Blood Edema Fundus Height Fundus Units Glucose Ketones Leukocytes Nitrite Labor Signs Protein Cervic Dilation Cervic Effacement Cervic Station Type Weight in lbs Pre/Post Dialysis Refused Weight 221.944214644250 BP Diastolic BP Location Tested BP Systolic [...] Estim ated Date of Delivery false Thalassemia (Serbian, Armenian, Mediterranean, Or Background): MCV < 80 false Neural Tube Defect (Meningomyelocele, Spina Bifi da, Or Anencephaly) false Congenital Heart Defect false Down Syndrome false Curt-Sachs (eg, Zoroastrian, Cajun, Hebrew-Swain) f alse Yung Disease false Sickle Cell [...] Domestic Partner Domestic Partner Phone Father Name Airplane Inspector Status 06/05/19 25 2 A Positive 198 Gabriel Mo OPEN Fetus Data First Name Last Name Admitted to NICU Weight (g) Sex Living Outcome Pediatric Complications Fetus ID Race Codes Race Delivery Type [id number] Problems Problem Notes Anatomy with MFM - 07/31/24 1 300 [facility] U/S & OV [facility] 08/27/24 US only 1:00PM Problem Name Start Date End Date Resolution Snomed Code Not e care: history of infertility 919686962 Past history of shoulder dystocia 925646609 Large for gestation age fetus 591456156 less then 30 se c shoulder dystocia Past history of pre-eclampsia 314925703697554 bASA x2 Migraine 25441127 magnesium, Excedrin tension, sumatriptan 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 0863856 Palpitations 07380520 Holter monitor faxed to [facility] 07/29 Gestational diabetes mellitus 10/10/2024 77188208 Glucose tolerance test outside reference range 10/01/2024 104903115 10/01/2024 ch ecking blood sugars for 2 week instead for doing 3 hour Twin 87298651 38 wk deliveryantenatal testing @ 32wks per [facility] Scheduled rpt 08/27 us ONLY Darren Calculation [...] Weight in lbs Pre/Post Dialysis Refused Weight 207.710854694407 BP Diastolic BP Location Tested BP Systolic [...] disability paperwork. will plan on referral to [facility] for anatomy and history of HTN/preeclampsia, [...] Type Weight in lbs Pre/Post Dialysis Refused 214.683665198768 BP Diastolic BP Location Tested BP Systolic [...] Weight in lbs Pre/Post Dialysis Refused Weight 216.311338488532 BP Diastolic BP Location Tested BP Systolic [...] No bleeding. Will send for anatomy at [facility]. Will measure for belly band today due [...] Type Weight in lbs Pre/Post Dialysis Refused 220.993508871785 BP Diastolic BP Location Tested BP Systolic [...] Type Weight in lbs Pre/Post Dialysis Refused 227.584141287623 BP Diastolic BP Location Tested BP Systolic [...] Weight in lbs Pre/Post Dialysis Refused Weight 229.269660821318 BP Diastolic BP Location Tested BP Systolic BP Type 89 133 Fetus Heart Rate Present Fetus Movement A Yes B Yes Comments Patient is having pressure, contractions and swelling. Flowsheet Date 08/29/2024 Mckinney Score Blood Edema Fundus Height Fundus Units Glucose Ketones Leukocytes Nitrite Labor Signs Protein Cervic Dilation Cervic Effacement Cervic Station Type Weight in lbs Pre/Post Dialysis Refused 232.59973915816 BP Diastolic BP Location Tested BP Systolic [...] Type Weight in lbs Pre/Post Dialysis Refused 236.571401149038 BP Diastolic BP Location Tested BP Systolic [...] Type Weight in lbs Pre/Post Dialysis Refused 234.346464006710 BP Diastolic BP Location Tested BP Systolic BP Type 87 138 Fetus Heart Rate Present Fetus Movement A Yes B Yes Comments Patient is having pain and c ontractions and swelling. 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 for metal flow coordinator referral to fiordaliza, eduction and precautions f/u [...] Weight in lbs Pre/Post Dialysis Refused Weight 241.814282940677 BP Diastolic BP Location Tested BP Systolic BP Type 82 125 Fetus Heart Rate Present Fetus Movement Comments Flowsheet Date 10/23/2024 Mckinney Score Blood Edema Fundus Height Fundus Units Glucose Ketones Leukocytes Nitrite Labor Signs Protein Cervic Dilation Cervic Effacement Cervic Station neg trace Type Weight in lbs Pre/Post Dialysis Refused 241.12539639902 BP Diastolic BP Location Tested BP Systolic [...] Type Weight in lbs Pre/Post Dialysis Refused 248.323538874069 BP Diastolic BP Location Tested BP Systolic [...] Type Weight in lbs Pre/Post Dialysis Refused 238.755761226078 BP Diastolic BP Location Tested BP Systolic [...]
--- OUTSIDE RECORDS SUMMARY | 2024-11-20 00:14 | XMS_ITS | Continuity of Care Document ---
Author Organization [facility] Address [address] [place] [address] [address] [place] [address] Phone Care Team Providers Care Customer Service Engineer Name Role Phone Carol OD OD, [...] Providers Copied on Encounter [facility], [address] [place] [address] [address], [place], [place], [id number], tel:[phone] OPH CONSULT KENTRELL LOPEZ No Information 3 Carol OD Georgina. [address] [facility], [address], [place], [place], [id number], [place]. tel:[phone] Referring Provider: Georgina Medina OD, [address] [facility] [address], [place], [address] . tel:[phone] OFFICE/OUTPA TIENT VISIT, [facility], [address] [place] [address], [id number], tel:[phone] OPH CONSULT KENTRELL LOPEZ blurry vision (chief complaint) dry eye (chief complaint) Krystin's thyroiditisMyo roger, bilateralTear film insufficiency of bilateral lacrimal glandsOther vitreous opacities, bilateralCorne al neovasculariza tion of both eyes 2 Derheimer OD Georgina. [address], [address] [place] [address], [id number], [place]. tel:[phone] Referring Provider: Scooter White, [address], [place], [address]. tel:[phone] [facility], [address] [place] [address], [id number], tel:[phone] Optical Services KENTRELL LOPEZ No Information 6 Derheimer OD Georgina. [address], [address] [place] [address], [id number], [place]. tel:[phone] Referring Provider: Georgina Medina OD, [address], [place], [address] . tel:[phone] [facility], [address] [place] [address], [id number], tel:[phone] OPH CONSULT KENTRELL LOPEZ blurry vision (chief complaint) Myopia, bilateral 6 Derheimer OD Georgina. [address], [address], [place], [place], [id number], [place]. tel:[phone] Referring Provider: Georgina Medina OD, [address], [place], [address] . tel:[phone] [facility], [address] [place] [address], [id number], tel:[phone] OPH CONSULT KENTRELL LOPEZ No Information 1 Beth Cohenl. [address], [address], [place], [place], [address], [place]. tel:[phone] Family History Family Member Type Diagnosis Age [...]
--- OUTSIDE RECORDS SUMMARY | 2024-11-20 00:15 | XMS_ITS | Continuity of Care Document ---
Author Organization [facility] Address [address] [place] [address] [place] [address] Phone Care Team Providers Care Assistant Hall Director Name Role Phone Robby Torres MD Unavailable [...] Diagnoses Date Provider Providers Copied on Encounter [facility], [address] [facility] [place], [id number], [place] tel:[phone] [facility] No Information 1 Brian Bustamante. [address], [address], [place], [place], [address] , [place]. tel:[phone] [facility], [address], [place], [place], [address], [place] tel:[phone] [facility] No Information 0 Brian Bustamante. [address], [address], [place], [place], [address] , [place]. tel:[phone] OFFICE/OUTPA TIENT VISIT, [facility] [place], [address], [place], [place], [address], [place] tel:[phone] [facility] anxiety1 (chief complaint) Generalized Anxiety DisorderHypothyroid ism 0 Brian Bustamante. [address], [place], [place], [address] , [place]. tel:[phone] Referring Provider: Robby Torres [address], [place], [place], [address]. tel:[phone] OFFICE/OUTPA TIENT VISIT, [facility] [place], [address], [place], [place], [address], [place] tel:[phone] [facility] anxiety1 (chief complaint) Generalized Anxiety DisorderGoiter 0 Brian Bustamante. [address], [place], [place], [address] , [place]. tel:[phone] Referring Provider: Robby Torres [address], [place], [place], [address]. tel:[phone] OFFICE/OUTPA TIENT VISIT, [facility] [place], [address], [place], [place], [address], [place] tel:[phone] [facility] thyroid nodule1 (chief complaint) anxiety1 (chief complaint) GoiterGeneralized Anxiety Disorder 0 Brian Menendez [address], [place], [place], [address] , [place]. tel:[phone] Referring Provider: Gissel Banks [address], [place], [place], [address]. tel:[phone] OFFICE/OUTPA TIENT VISIT, [facility] [place], [address], [place], [place], [address], [place] tel:[phone] [facility] anxiety1 (chief complaint) iron1 (chief complaint) thyroid1 (chief complaint) Disorder of iron metabolism, unspecifiedGoiterGe neralized Anxiety Disorder Lonnie-0 0 Brian Bustamante. [address], [place], [place], [address] , [place]. [phone] Referring Provider: Gissel Banks [address], [place], [place], [address]. tel:[phone] OFFICE/OUTPA TIENT VISIT, [facility] [place], [address], [place], [place], [address], [place] tel:[phone] [facility] ankle pain1 (chief complaint) fatigue1 (chief complaint) thyroid1 (chief complaint) anemia1 (chief complaint) Pain in right ankleFatigueAnemiaG oiter 0 Brian Bustamante. [address], [place], [place], [address] , [place]. tel:[phone] Referring Provider: Gissel Banks [address], [place], [place], [address]. tel:[phone] OFFICE/OUTPA TIENT VISIT, [facility] [place], [address], [place], [place], [address], [place] tel:[phone] [facility] rash1 (chief complaint) Allergic contact dermatitis due to plants, except food Aug- 0 Brian Bustamante. [address], [address], [place], [place], [address] , [place]. [phone] Referring Provider: Gissel Banks [address], [place], [place], [address]. tel:[phone] OFFICE/OUTPA TIENT VISIT, [facility] [place], [address], [place], [place], [address], tel:[phone] [facility] Medicine thyroid1 (chief complaint) ferritin1 (chief complaint) IgA (chief complaint) fatigue1 (chief complaint) GoiterDisorder of iron metabolism, unspecifiedVitamin D deficiency, unspecifiedRaised level of immunoglobulinAnemi aH. pylori as the cause of diseases classified elsewhereFatigue 0 Brian Bustamante. [address] [facility], [address] , . tel:[phone] Referring Provider: Gissel Banks [place], [place], [address]. tel:[phone] PREV VISIT, NEW, AGE 18-39 [facility], [address] [place] [address] [employer] [place], [address], tel:[phone] [facility] PHysical (chief complaint) Encntr for general adult medical exam w/o abnormal findings 0 Brian Bustamante. [address], [facility] [place] [address], [place], [place], [address] , [place]. tel:[phone] Referring Provider: Robby Torres [address] [place] [address], [id number]. tel:[phone] Family History Family Member Type Diagnosis Age [...] Referral Referred To: Jean Carlos BolañosJoe silva [address] [facility]
[address] [place], [place] [address] Ordered: Referrals: Allopathic & Osteopathic Physicians : [...] any dysphagia ankle pain1 Pt was at [place] and she stepped on gravel [...] or swelling . 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
--- NOTE | 2024-11-20 00:25 | PC.NURSE ---
11/19/24@2221- Patient arrives to OB unit with complaints of DFM. Patient denies any vaginal bleeding or leaking of fluid, but states that she has had an increase in discharge the past few days that she believes is her mucous plug. Patient states she has had limited movement x2 days, but has felt no movement since 7:30pm this evening. Patient states she took her usual dose of procardial xl this AM and her additional dose at 9:30pm. Patient states that she took all of her other usual medications this morning. RN gave patient the marker button and to vanna movement anytime she feels movement. RN also gave patient a cup of ice water and instructed patient to drink it. 2232-Dr. Moser on unit, RN notified MD of patient arrival and patient complaints, MD reviewed tracing, MD gave orders to monitor until patient is marking good movement and when both strips are reactive. 2249- Patient states she is still not feeling any movement and has not marked any movement. RN gave patient 4oz of apple juice to drink. 2255- RN notified MD that patient is still denying feeling and movement with either baby and that apple juice and ice water were given. MD reviewed reactive tracings. MD gave orders for BPP's and to notify her of the results. 2358- RN notified MD of BPP's that are both 8/8 and that the strips for both babies are reactive. RN notified MD that patient states she still has felt no movement and that even during the BPP's she didn't feel the movement that was picked up via ultrasound. MD gave orders to admit patient for monitoring over night until patient feels movement and that if patient starts feeling good movement over night that patient can be d/c.
--- NOTE | 2024-11-26 18:04 | PM.OBTRLD ---
OB - Triage/Final Diagnosis Visit Information Comments/Additional reasons for admission: I have assessed the risk for this patient, Yessica Mo, and determined that she would benefit from observation care. Final Diagnosis (1) Decreased movement: Qualifiers: Fetus number: fetus 1 of multiple gestation Trimester: third trimester Qualified Code(s): O36.8131 - Decreased movements, third trimester, fetus 1 Code(s): O36.8190 - Decreased movements, unspecified trimester, not applicable or unspecified Status: Acute
== END 2024-11-20 06:40 | disposition home or self-care (01) ==
PROVIDERS: Admitting Provider Obstetrics & Gynecology; Visit Provider Obstetrics & Gynecology
DX: O36.8131 Decreased fetal movements, third trimester, fetus 1 (principal); Z3A.35 35 weeks gestation of pregnancy
CPT/HCPCS: 59025; 76815; 76819; 82948; G0378; G0379

== ENCOUNTER 2024-11-21 22:34 | Observation (INO) | payer OTHER, SELFPAY ==
[2024-11-21 23:44] VITALS: TEMP 36.4
--- OUTSIDE RECORDS SUMMARY | 2024-11-22 01:12 | XMS_ITS | Clinical Summary ---
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 Height 165.1 cm (5' 5) 04/19/2023 8:07 AM TECHNOLOGY APPLICATIONS TEACHER Body Mass Index 35.78 04/19/2023 8:07 AM TECHNOLOGY APPLICATIONS TEACHER Plan of Treatment Health Maintenance Due Date [...] this topic Medical Devices Implanted Type Area [employer] Device Identifier Shelf Expiration Date Model / Serial / Lot Tube Ventilation 5mm Carey Triune - [id number] Implanted:Qty: 1 on 11/05/2018 by [facility] IMPLANT Left: Ear [employer] 04/06/2020 510-122 / 510-122 / [id number] Description:Ear tubes came f rom the same package Tube Ventilation 5mm Carey Triune - [id number] Implanted:Qty: 1 on 11/05/2018 by Jordon Deng MD at [facility] IMPLANT Right: Ear [employer] 04/06/2020 510-122 / 510-122 / [id number] Description:Ear tubes came f rom the [place] [address] * Guarantor: [facility] Account Type Relation to Patient Date of Phone Billing Address Institutional Other [address] [place] [address] Care Teams Online Trader Relationship Specialty Start Date End Date Yon Gutierrez MD [address] [address] PCP - General Family Medicine 06/23/23 Manda Singh MD Obstetrics & Gynecology 02/11/20 Malik Cates MD #[address] [id number] Consulting Physician Endocrinology 12/13/21 Ulices Marnio MD #[address] [address] Consulting Physician Colon and Rectal Surgery 07/06/22 Georgina Fontenot, WELL DRILL OPERATOR CABLE TOOL, SEMIAUTOMATIC STITCHER OPERATOR [address] [place] [address] Nurse Practitioner Advanced Practice Nurse 09/25/24
--- OUTSIDE RECORDS SUMMARY | 2024-11-22 01:12 | XMS_ITS | Encounter Summary ---
Author Organization [facility] Address [address] [place] [address] Phone Care Team Providers Care Presales Senior Specialist Name Role Phone Manda Singh MD Unavailable [phone] Scooter White DO Primary Care Provider Malik Cates MD Unavailable Ulices Marino MD Unavailable Yon Gutierrez MD Primary Care Provider Georgina Fontenot APRN, PROPERTY PRESERVATION SPECIALIST Unavailable [phone] Encounter Details Date Type Department Care Team (Late st Contact Info) Description 07/26/2021 [facility] [address] [place] [address] Edita Garza, TRUNG, RESIDENT SERVICES DIRECTOR [address] [place] [address] Encounter for pre-employment examination Social [...] >=1.1 AI 07/26/2021 10:00 PM CDT [facility] Blood No Phlebotomy Charged / Unknown 07/26/2021 9:00 AM CDT 07/26/2021 2:15 PM CDT Narrative [facility] - 07/26/2021 10:00 PM CDT <= 0.8 Negative. No detectable VZV IgG antibody. 0.9 - 1.0 Equivocal >=1.1 Positive Antibody testing was performed by multiplex flow immunoassay on the BioPlex platform. Edita L Behrends TELESALES MANAGER, RESIDENT SERVICES DIRECTOR IMMUNOLOGY ORDERABL ES Final Result Performing Organization Address [facility] de Phone Number [facility] [address] [place] [address], [place] * (ABNORMAL) RUBEOLA (MEASLES) IGG (07/26/2021 9:00 AM CDT) MEASLES AB IGG 0.7(L) >=1.1 AI 07/26/2021 10:00 PM CDT [facility] Blood No Phlebotomy Charged / Unknown 07/26/2021 9:00 AM CDT 07/26/2021 2:15 PM CDT Narrative [facility] - 07/26/2021 10:00 PM CDT <= 0.8 Negative. No detectable Measles IgG antibody. 0.9 - 1.0 Equivocal >=1.1 Positive Antibody testing was performed by multiplex flow immunoassay on the BioPlex platform. Edita L Behrends TELESALES MANAGER, RESIDENT SERVICES DIRECTOR IMMUNOLOGY ORDERABL ES Final Result Performing Organization Address [facility] de Phone Number [facility] [address] [place] [address], [place] * RUBELLA IMMUNITY IGG (07/26/2021 9:00 AM CDT) RUBELLA IMMUNITY Immune Immune, Invalid 07/26/2021 10:00 PM CDT [facility] Blood No Phlebotomy Charged / Unknown 07/26/2021 9:00 AM CDT 07/26/2021 2:15 PM CDT Narrative [facility] - 07/26/2021 10:00 PM CDT Antibody testing was performed by multiplex flow immunoassay on the BioPlex platform. us Edita Garza TELESALES MANAGER, RESIDENT SERVICES DIRECTOR CHEMISTRY ORDERABLE S Final Result Performing Organization Address [facility] Co de Phone Number [facility] [address] [place] [address], [place] * MUMPS IGG (07/26/2021 9:00 AM CDT) Mumps Ab IgG 1.2 >=1.1 AI 07/26/2021 10:00 PM CDT [facility] Blood No Phlebotomy Charged / Unknown 07/26/2021 9:00 AM CDT 07/26/2021 2:15 PM CDT Narrative [facility] - 07/26/2021 10:00 PM CDT <= 0.8 Negative. No detectable Mumps IgG antibody. 0.9 - 1.0 Equivocal >=1.1 Positive Antibody testing was performed by multiplex flow immunoassay on the BioPlex platform. us Edita Garza TELESALES MANAGER, RESIDENT SERVICES DIRECTOR IMMUNOLOGY ORDERABL ES Final Result Performing Organization Address [facility] Co de Phone Number [facility] [address] [place] [address], [place] * QUANTIFERON-TB GOLD PLUS (07/26/2021 9:00 AM CDT) NIL CONTROL 0.04 <8.01 IU/mL 07/28/2021 1:01 PM CDT [facility] TB ANTIGEN 1 0.00 <0.35 IU/mL 07/28/2021 1:01 PM CDT [facility] TB ANTIGEN 2 0.00 <0.35 IU/mL 07/28/2021 1:01 PM CDT [facility] MITOGEN CONTROL 9.64 >0.49 IU/mL 07/29/19 1:01 PM CDT [facility] INTEPRETATION TB NEGATIVE NEGATIVE, NEGATIVE (TB antigen response less than 25% of internal negative control value) 07/28/2021 1:01 PM CDT [facility] Comment:No immune response t o Mycobacterium tuberculosis antigens was noted. M. tuberculosis infection unlikely. Blood No Phlebotomy Charged / Unknown 07/26/2021 9:00 AM CDT 07/26/2021 2:15 PM CDT Narrative [facility] - 07/28/2021 1:01 PM [...] immunocompromised individuals. https://www.cdc.gov/tb/publications/guidelines/testing.htm us Edita L Behrends TELESALES MANAGER, RESIDENT SERVICES DIRECTOR IMMUNOLOGY ORDERABL ES Final Result Performing Organization Address [facility] Co de Phone Number [facility] [address] [place] [address], [place] * HEPATITIS B SURFACE ANTIBODY (HBSAB) (07/26/2021 9:00 AM CDT) HEPATITIS B SURFACE ANTIBODY 8.33 mIU/mL [facility] ARCH [id number] 07/27/2021 12:02 AM CDT [facility] Comment: Grayzone Range: >=8.00 to <=12.00 The immune status of the individual should be further assessed considering other factors, such as clinical status, follow-up testing, associated risk factors and the use of additional diagnostic information. Blood No Phlebotomy Charged / Unknown 07/26/2021 9:00 AM CDT 07/26/2021 2:15 PM CDT us Edita Garza TELESALES MANAGER, RESIDENT SERVICES DIRECTOR CHEMISTRY ORDERABLE S Final Result Performing Organization Address [facility] Co de Phone Number [facility] [address] [place] [address], [place] documented in this encounter Visit Diagnoses Diagnosis Encounter for pre-employment examination Health examination of defined subpopulation documented in this encounter Additional Health Concerns Assessment Noted Time PHQ-9 Depression Total Score: 0 02/11/20 20 12:57 PM CDT documented as of this encounter Care Teams Presales Senior Specialist Relationship Specialty Start Date End Date Scooter White DO [address] [place] [address] [place] [address] PCP - General Internal Medicine 03/17/21 06/22/23 Yon Gutierrez MD [address] [place] [address] [address] PCP - General Family Medicine 06/23/23 Manda Singh MD Obstetrics & Gynecology 02/11/20 Malik Cates MD #[address] [address] Consulting Physician Endocrinology 12/13/21 Ulices Marino MD #[address] [address] Consulting Physician Colon and Rectal Surgery 07/06/22 Georgina Fontenot APRN, PROPERTY PRESERVATION SPECIALIST [address] [place] [address] Nurse Practitioner Advanced Practice Nurse 09/25/24 documented as of this encounter
--- OUTSIDE RECORDS SUMMARY | 2024-11-22 01:12 | XMS_ITS | Encounter Summary ---
Author Organization [facility] Address [address] [place] [address] Phone Care Team Providers Care Acoustic Sensor Operator Name Role Phone Manda Singh MD Unavailable Robby Torres Primary Care Provider [phone] Scooter White DO Primary Care Provider Malik Cates MD Unavailable Ulices Marino MD Unavailable Yon Gutierrez MD Primary Care Provider Georgina Fontenot APRN, [facility] Unavailable [phone] Encounter Details Date Type Department Care Team (Late st Contact Info) Description 03/09/2020 [facility] [address] [place] [address] Walter Blake MD [address] [place] [address] Preop testing (Primary Dx) Social History Tobacco [...] COVID-19? 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 [place] [address] PCP - General Family Medicine 02/11/20 03/16/21 Scooter White DO [facility] [facility] [address] PCP - General Internal Medicine 03/17/21 06/22/23 Yon Gutierrez MD 2 [facility] , [facility] [address] [place] [address] PCP - General Family Medicine 06/23/23 Manda Singh MD Obstetrics & Gynecology 02/11/20 Malik Cates MD #2 [facility] [address] [place] [address] Consulting Physician Endocrinology 12/13/21 Ulices Marino MD [address] [address] Consulting Physician Colon and Rectal Surgery 07/06/22 Georgina Fontenot APRN, HAND BUTTON SPLITTER [address] [place] [address] Nurse Practitioner Advanced Practice Nurse 09/25/24 documented as of this encounter
--- OUTSIDE RECORDS SUMMARY | 2024-11-22 01:12 | XMS_ITS | Data Portability ---
Author Organization [facility] Address [address] [place] [address] Care Team Providers Care Chemist Proteins Name Role Phone [facility] EDUIN HAMMONDS Calliope Player JILLIAN LAO Primary Care Provider Assessment Encounter Date Assessment Date Assessment LastModified by Organization Details LastModified Time 11/20/2024 11/20/2024 Patient is _35__weeks . Discussed plan. Not available 11/20/2024 15:42:27 Plan of Treatment Reminders Order Date Submit Date Provider Last Modified By Organization Details Last Modified Time Details Appointments U/S OB BPP 2024 01:00P M ULTRASOUND Not available Not available Not available NST 2024 02:00P M NST SCHEDULE Not available Not available Not available OB ROUTINE 2024 02:30P M Peter Bryant CNM Not available Not available Not available INDUCTI ON 2024 12:01A M Peter Bryant CNM Not available Not [...] d. Imaging non-str ess test 2024 025 [email or web address] [address], [address], [place], [address], 11/21/2024 23:22:39 US, obstetr ic, biophys ical profile + non-str ess test [address], [address], [place], [address], 11/20/2024 15:46:37 US, obstetr ic, biophys ical profile + non-str ess test [facility] [address], [address], [place], [address], 11/20/2024 16:51:34 non-str ess test 2024 025 [email or web address] [address], [address], [place], [address], 11/15/2024 09:25:55 US, obstetr ic, follow- up [address], [address], [address], [place], [address], 11/14/2024 20:41:29 US, obstetr ic, biophys ical profile + non-str ess test [address], [address], [address], [place], [address], 11/14/2024 20:41:29 US, obstetr ic, biophys ical profile + non-str ess test 2024 025 [email or web address] [address], [place], [address], 11/14/2024 20:41:29 US, obstetr ic, follow- up 2024 025 [email or web address] [address], [place], [address], 11/14/2024 20:41:29 Medication Orders None recorde d. Patient TargetsNo targets recorded. Patient InstructionsNo instructions recorded. Reason for Referral None Reported. Results Created Date Observation Date Name Description Value Unit Range Abnormal Flag Note LastModifiedBy Organization Detail LastModifiedTime 10/23/19 25 10/22/2024 US, obste tric, follo w-up No observ ation record ed. [email or web address] [address], [place], [address], 10/22/2024 17:16:15 10/23/19 25 10/22/2024 US, obstmickey tric, follo w-up No observ ation record ed. [email or web address] [address], [place], [address], 10/22/2024 17:16:31 10/23/19 25 10/22/2024 US, obste tric, follo w-up No observ ation record ed. LANA [address], [facility], [place], [address], 10/29/2024 21:52:03 10/27/19 25 10/23/2024 non-s tress test No observ ation record ed. [email or web address] [address], [place], [address], 10/26/2024 08:57:06 10/29/19 25 10/23/2024 non-s tress test No observ ation record ed. [email or web address] [address], [place], [address], 10/28/2024 11:44:35 10/31/1910/30/2024 US, obste tric, bioph ysica l profi le + non-s tress test No observ ation record ed. [email or web address] [address], [place], [address], 10/30/2024 13:28:58 10/31/19 25 10/30/2024 US, obste tric, bioph ysica l profi le + non-s tress test No observ ation record ed. [email or web address] [address], [place], [address], 10/30/2024 13:29:11 10/31/19 25 10/30/2024 US, obste tric, follo w-up No observ ation record ed. [email or web address] [address], [facility], [place], [address], 10/31/2024 18:00:31 11/07/1911/06/2024 US, obste tric, bioph ysica l profi le + non-s tress test No observ ation record ed. [email or web address] [address], [place], [address], 11/06/2024 17:48:20 11/07/1911/06/2024 US, obste tric, bioph ysica l profi le + non-s tress test No observ ation record ed. [email or web address] [address], [place], [address], 11/06/2024 17:48:32 11/07/1911/06/2024 non-s tress test No observ ation record ed. [email or web address] [place] [address] [address], [place], [address], 11/06/2024 17:22:40 11/07/19 25 11/06/2024 US, obste tric, bioph ysica l profi le + non-s tress test No observ ation record ed. [email or web address] [address], [place], [address], 11/11/2024 12:03:01 11/10/19 25 11/09/2024 imagi ng/di agnos tic resul t No observ ation record ed. [address], [place], [address], 11/11/2024 17:42:12 11/13/1911/12/2024 non-s tress test No observ ation record ed. [email or web address] [address], [place], [address], 11/19/2024 08:29:48 11/14/19 25 11/13/2024 non-s tress test No observ ation record ed. [address], [place], [address], 11/14/2024 14:45:58 11/14/19 25 11/13/2024 US, obste tric, follo w-up No observ ation record ed. [email or web address] [address], [place], [address], 11/13/2024 18:14:47 11/14/19 25 11/13/2024 US, obste tric, bioph ysica l profi le + non-s tress test No observ ation record ed. [email or web address] [place] [address], [place], [address], 11/13/2024 18:14:56 11/14/19 25 11/13/2024 US, obste tric, bioph ysica l profi le + non-s tress test No observ ation record ed. [email or web address] [address], [place], [address], 11/13/2024 18:15:06 11/14/19 25 11/13/2024 US, obste tric, follo w-up No observ ation record ed. [email or web address] [place] [address], [place], [address], 11/13/2024 18:15:15 11/14/19 25 11/13/2024 non-s tress test No observ ation record ed. [email or web address] [place] [address], [place], [address], 11/13/2024 15:40:45 11/14/19 25 11/13/2024 US, ayo holley, follo w-up No observ ation record ed. LANA [address], [place], [address], 11/17/2024 13:32:08 11/18/19 25 11/17/2024 imagi ng/herb starros tic resul t No observ ation record ed. [address], [place], [address], 11/19/2024 09:08:52 11/21/19 25 11/20/2024 US, ayo holley, bioph ysica l profi le + non-s tress test No observ ation record ed. [email or web address] [place] [address], [place], [address], 11/20/2024 16:51:23 11/21/19 25 11/20/2024 US, ayo holley, bioph ysica l profi le + non-s tress test No observ ation record ed. [email or web address] [place] [address], [place], [address], 11/20/2024 16:51:34 11/21/19 25 11/20/2024 US, obste tric, bioph ysica l profi le + non-s tress test No observ ation record ed. [email or web address] [address], [place], [address], 11/20/2024 16:50:41 11/22/19 25 11/21/2024 non-s tress test No observ ation record ed. [address], [place], [address], 11/21/2024 17:10:50 11/22/19 25 11/19/2024 imagi ng/di agnos tic resul t No observ ation record ed. [address], [place], [address], 11/21/2024 18:36:24 11/22/19 25 11/21/2024 imagi ng/di agnos tic resul t No observ ation record ed. [address] [facility], [place], [address], 11/21/2024 18:37:47 Result Notes None recorded. 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 3 15:14:45 Hypothyr oidism 58654041 Completed Eli Bohnenstieh l null, [facility] 3 15:14:45 Antenata l care: history of infertil ity 876038612 Completed Eli Bohnenstieh l null, [facility] 3 15:14:46 Group B Streptoc occus carrier 3861372115 103 Completed bacteriu berta Eli Bohnenstieh l null, [facility] 3 15:14:45 Maternal obesity complica ting pregnanc y, childbir th and the puerperi um, antepart um 3363782087 07 Completed BMI 39- ante testing at 37w Eli Chata alvarado null, [facility] 3 15:14:46 Chronic hyperten allison in obstetri c context 4220284 Completed procardi a , baseline labs, ASA Elikristin alvarado null, [facility] 3 15:14:46 Placenta circumva llata 9272117 Completed Serial growth u/s Elikristin alvarado null, [facility] 3 15:14:45 Pre-ecla mpsia 605252011 Completed Eli alvarado null, [facility] 3 15:14:45 Twin pregnanc y 27368227 Active 38 wk delivery antenata l testing @ 32wks per [facility] Schedule d rpt 08/27 us ONLY Tabatha moreno, [facility] 5 12:20:16 Antenata l care: history of infertil ity 860829132 Active Peter Bryant CNM [address], [place], [address], [facility] 5 13:48:37 Past pregnanc y history of pre-ecla mpsia 6183512097 41391 Active bASA x2 Tabatha Flanagan null, [facility] 5 17:10:40 Large for gestatio n age fetus 447390704 Active less then 30 sec shoulder dystocia Peter Bryant CNM [address], [place], [address], [facility] 5 13:51:09 Past pregnanc y history of shoulder dystocia 190487808 Active Peter Bryant CNM [address], [place], [address], [place] [facility] 5 13:52:04 Chronic hyperten allison in obstetri c context 6892437 Active Peter ArevaloDwight Bryant CNM [address], [place], [address], [facility] 5 13:52:55 Palpitat ions 30319158 Active Holter monitor faxed to [facility] nt Cardiolo gy 07/29 Tabatha Green null, [facility] 5 14:05:23 Palpitat ions 01764041 Active Holter monitor faxed to [facility] nt Cardiolo gy 07/29 Tabatha Green null, [facility] 5 14:05:23 Migraine 90018043 Active magnesiu m, Excedrin tension, sumatrip tatum Tabatha Green null, [facility] 5 17:11:50 Migraine 56086184 Active magnesiu m, Excedrin tension, sumatrip tatum Tabatha Green null, [facility] 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 1 15:00:08 Pregnanc y 45413161 Completed 202106/09/2022 Kenyetta moreno, [facility] 5 16:03:06 Abnormal cervical Papanico laou smear 332972540 Active 2023 3 lgsil HPV high risk 1 ascus HPV high risk Kenyetta moreno, [facility] 4 11:59:57 Herpes simplex 50371995 Active 2024 Kenyetta moreno, [facility] 5 16:40:53 Human papillom a virus infectio n 609831002 Active 2024 Kenyetta moreno, [facility] 5 16:40:59 Endometr iosis (clinica l) 366066052 Active 2024 Kenyetta Solano [facility], [facility] 5 16:41:22 Pregnanc y 46541011 Active 2024 Kenyetta moreno, [facility] 5 16:03:06 Glucose toleranc e test outside referenc e range 944327486 Active 2024 checking blood sugars for 2 week instead for doing 3 hour Kenyetta moreno [facility] 17:53:21 Glucose toleranc e test outside referenc e range 688949597 Active 2024 checking blood sugars for 2 week instead for doing 3 hour Kenyetta moreno [facility] 17:53:21 Gestatio nal diabetes mellitus 14140808 Active 2024 Kenyetta moreno [facility] 5 11:47:25 Gestatio nal diabetes mellitus 92234513 Active 2024 Kenyetta moreno [facility] 5 11:47:25 Problem Notes None recorded. Procedures Surgical History Date Name Laterality Status Provider Name and Address Organization Details Recorded Time 024 Laparoscopy completed Kenyettaelif Solano [facility] 05/10/2024 16:42:07 024 Date of Last Pap Smear completed Kenyetta Solano [facility] 08/16/2023 12:00:08 024 procedure on ear completed Kenyettaelif Solano [facility] 08/16/2023 12:01:09 023 Colposcopy completed Peter Bryant CNM [address], [place], [address], [facility] 06/15/2022 16:59:00 023 Colposcopy completed Kenyetta Solano [facility] 06/15/2022 16:38:21 023 Colposcopy completed Kenyetta Solano [facility] 06/15/2022 16:38:49 022 intrauterine artificial insemination completed [facility] 06/26/2021 09:20:58 021 intrauterine artificial insemination completed [facility] 06/17/2021 12:15:01 021 intrauterine artificial insemination completed [facility] 06/17/2021 12:14:55 021 intrauterine artificial insemination completed [facility] 06/17/2021 12:14:45 021 intrauterine artificial insemination completed [facility] 06/17/2021 12:14:39 021 LAPAROSCOPY, DIAGNOSTIC (SURG) completed [facility] 08/19/2020 14:04:12 020 completed [facility] 10/01/2020 16:23:53 020 Colonoscopy completed [facility] 01/22/2021 10:59:09 019 procedure on neck completed [facility] 12/25/2019 11:25:51 019 hemorrhoidectomy completed [facility] 12/25/2019 11:24:57 016 cholecystectomy completed [facility] 07/16/2021 17:21:15 010 Appendectomy completed [facility] 12/25/2019 11:24:44 Imaging Results None recorded. Procedure Notes None recorded. Medical Equipment None Reported. Allergies Allergen ID Allergen Name Allergen Category Reaction Reaction Severity Criticality Documentation Date Start Date Code Code System Note Provider Name and Address Organization Details Recorded Time 25310 prednison e medicatio n hives Not available Not available 07/03/2024 8640 RxNorm Peter Person Manny, CN [address], [place], [address] , [facility] 5 09:52:22 Medications Name Sig [...] Pregnyl 10,000 unit intramusc ular solution Inject 04646 units every day by intramus cular route [...] Prescrib ed Ban e: Yes [facility] By: [email or web address] z Encoun ter DateTime [...] VAIL INJECTIO N INTO RIGHT HIP LOT [id number] EXP 12/2021 Not Available Not Available Not [...] Address Organization Details Last Updated DateTime 11/13/2024 469674.50192 g 127/89 mm[Hg] Sun Babcock [facility] 11/13/2024 15:38:06 Date Recorded Body height Body mass index (BMI) Body weight Systolic And Diastolic Provider Name and Address Organization Details Last Updated DateTime 11/20/2024 161.29 cm 42.4 kg/m2 570327.95 g 133/84 mm[Hg] Pretty Werner [facility] 11/20/2024 14:47:38 Social History Question Answer Notes LastModified by Organizat ion Details LastModified Time Tobacco Smoking Status Never Smoker Althea Holguin [email or web address], [facility] 06/15/2022 15:31:26 Do You Have An Advance Directive? No Information n ot available 07/28/2020 If You Are , What Was Your Level Of Alcohol Consumption Prior To ? None [email or web address] Information not available 06/15/2022 Are You Blind [...] Or The Highest Degree You Have Received? [id number] Information not available 07/28/2020 Are There Any Guns Present In Your Home? No Information not available 07/28/2020 What Was The Date Of Your Most Recent Tobacco Screening? 10/23/2024 [email or web address] Information not available 10/23/2024 Have You Ever Been Counseled For Unhealthy Alcohol Use? No [email or web address] Information not available 06/15/2022 Do You Use Protection During Sex? No Information not available 07/28/2020 Do You Use Your Seat Belt Or Car Seat Routinely? Yes Information not available 07/28/2020 Do You Have Smoke And Carbon Monoxide Detectors In Your Home? Yes Information not available 07/28/2020 How Much Tobacco Do You Smoke? No [email or web address] Information not available 12/25/2019 Do You Use Sunscreen Routinely? Yes Information not available 07/28/2020 Have You Used IV Drugs? No Information not available 07/28/2020 Do You Have Difficulty Walking Or Climbing Stairs? No [email or web address] Information not available 06/15/2022 Sex: Unknown Functional Status Question Answer Note LastModified by Organizat ion Details LastModified Time Do you use any illicit or recreational drugs? No Information not available 07/28/2020 Do you or have you ever used any other forms of tobacco or nicotine? No [email or web address] Information not available 06/15/2022 What is your level of alcohol consumption? Occasional [email or web address] Information not available 12/25/2019 Do you or have you ever used smokeless tobacco? Never used smokeless tobacco [email or web address] Information not available 06/15/2022 Are you able to walk? YESWOREST [email or web address] Information not available 08/19/2020 Are you able to care for yourself? 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 No [email or web address] Information not available 06/15/2022 Do you or have you ever used e-cigarettes or vape? Never used electronic cigarettes [email or web address] Information not available 06/15/2022 What is your exercise level? Occasional Information not available 12/25/2019 Mental Status Question Answer Note LastModified by Organization D etails LastModified Time Do you feel stressed (tense, restless, nervous, or anxious, or unable to sleep at night)? [id number] [email or web address] Information not available 08/19/2020 Family History Relationship Description Onset Age of this Age Resolved Age Notes LastModified by Organization Details LastModified Time Maternal Grandmother Disorder of thyroid gland [email or web address] Not available 01/26 16:14:56 Mother Female infertility [email or web address] Not available 08/2024 13:51:15 Mother Disorder of thyroid gland [email or web address] Not available 01/26 16:14:56 Father Malignant tumor of pancreas [email or web address] Not available 2024 13:51:15 Brother Malignant neoplasm of prostate [email or web address] Not available 2024 13:51:15 Paternal Grandmother Malignant tumor of breast [email or web address] Not available 01/26 16:14:56 Paternal Grandmother Malignant neoplasm of lung Not available 01/26 16:14:56 Medical History Condition [...] SNOMED-CT Code Diagnosis ICD10 Code Diagnosis Note [id number] [address],[facility] [place] [address] 12/25/2019 10:57:08 12/25/2019 12:38:39 Breast infection 172321208 N61.0 Trying to conceive 75859 9001 Z31.9 [id number] Messi Garcia MD [place] [address],[facility] [place] [address] 06/30/2020 12:07:39 06/30/2020 12:55:49 Pain in pelvis 52403737 R10.2 [id number] Messi Garcia MD [place] [address],[facility] [place] [address] 07/02/2020 12:31:33 07/02/2020 16:54:32 Pain in pelvis 78255598 R10.2 This patient is a 25-year-ol d [...] informed consent process. To check fallopian tubes. [id number] Messi Garcia MD [place] [address] [address] 07/23/2020 10:07:53 07/23/2020 10:09:56 [id number] Messi Garcia MD [place] [address] [address] 07/28/2020 13:53:59 07/28/2020 15:27:02 Chest pain 95947032 R07.9 this patient is 25-year-ol d female [...] this patient s visit, including available hand bread icer upon arrive, temperatur e check and being asked a series of screening questions. All staff wore face coverings during this encounter, as well as provided additional cleaning and sanitizing of all surfaces, including countertop s, pens, chairs, door handles, light switches, etc, prior to and following the patient s visit. [id number] MD Rhina Zheng [address] [address] 08/04/2020 14:07:07 08/04/2020 14:50:37 Abnormal uterine bleeding 9480177459 9100 N93.9 this patient is a 25-year-ol [...] ovulation induction [place]. [id number] Peter Bryant [facility] [address],[place] [address] 08/19/2020 13:46:09 08/19/2020 15:50:34 Trying to conceive 647282506 Z31.9 [id number] Messi Garcia MD [place] [address],[place] [address] 09/02/2020 11:05:51 09/02/2020 12:44:09 Female infertility 6092013 N97.9 [id number] Peter Bryant [facility] [address],[place] [address] 09/04/2020 08:09:36 09/04/2020 09:29:50 Artificial insemination 70138458 Z31.83 53516 Peter Bryant [facility] [address],[place] [address] 09/03/2020 18:20:49 09/03/2020 22:54:04 Trying to conceive 064923096 Z31.9 [id number] Messi Garcia MD [place] [address],[place] [address] 09/09/2020 17:51:09 09/09/2020 18:07:37 Pain in pelvis 90978920 R10.2 This patient is a 25-year-ol d [...] informed consent process. To check fallopian tubes. [id number] Messi Garcia MD [place] [address],[facility] [place] [address] 09/22/2020 16:45:48 09/22/2020 17:17:04 Pain in pelvis 59195646 R10.2 This patient is a 25-year-ol d [...] informed consent process. To check fallopian tubes. [id number] Messi Garcia MD [place] [address],[facility] [place] [address] 10/01/2020 14:59:50 10/01/2020 15:16:34 Female infertility 7828874 N97.9 [id number] [facility] [address],[facility] [place] [address] 10/01/2020 16:21:54 10/01/2020 16:27:38 Trying to conceive 519925682 Z31.9 [id number] Peter Bryant CNM [place] [address],[facility] [place] [address] 10/02/2020 08:19:49 10/02/2020 09:46:38 Artificial insemination 56964384 Z31.83 [id number] Messi Garcia MD [place] [address] [address] 10/14/2020 15:52:51 10/14/2020 16:51:20 Pain in pelvis 24768254 R10.2 This patient is a 25-year-ol d [...] informed consent process. To check fallopian tubes. [id number] [facility] [address],[facility] [place] [address] 10/21/2020 17:06:20 10/21/2020 17:33:05 Hypothyroidism 25809238 E03.9 check labs, will adjust meds if needed [id number] Messi Garcia MD [place] [address],[facility] [place] [address] 11/30/2020 13:48:01 11/30/2020 13:52:51 Pain in pelvis 90476700 R10.2 This patient is a 25-year-ol d [...] informed consent process. To check fallopian tubes. [id number] Messi Garcia MD [place] [address],[facility] [place] [address] 12/01/2020 14:00:56 12/01/2020 15:31:30 Pain in pelvis 32232641 R10.2 this patient is a 25-year-ol d [...] face-to-fa ce discussing this very complex topic. [id number] Peter Bryant [place] [address] [place] [address] 01/22/2021 09:15:38 01/22/2021 10:35:42 Female infertility 5900235 N97.9 Gynecologi c examination 00902936 Z01.419 [id number] Messi Garcia MD [place] [address] [place] [address] 02/09/2021 09:19:46 02/09/2021 10:04:48 Female infertility 5080496 N97.9 [id number] [facility] [address] [place] [address] 1 02/09/2021 14:29:50 02/09/2021 16:50:58 Trying to conceive 992204175 Z31.9 [id number] [facility] [address] [place] [address] 1 02/10/2021 09:41:42 02/10/2021 10:12:15 Female infertility 6814677 N97.9 Artificial insemination 61276965 Z31.83 [id number] Messi Garcia MD [place] [address] [place] [address] 1 04/28/2021 14:43:43 04/28/2021 15:19:59 Female infertility 2146702 N97.9 [id number] [facility] [address],[place] [address] 1 04/28/2021 18:59:10 04/29/2021 09:31:07 Trying to conceive 339163982 Z31.9 [id number] [facility] [address],[place] [address] 1 04/29/2021 09:31:15 04/29/2021 10:19:12 Artificial insemination 85444168 Z31.83 [id number] Nalini Salomon [facility] [address],[place] [address] 1 05/25/2021 11:53:11 05/25/2021 16:54:31 Reduced libido 6011123 R68.82 Today we discussed trial of Wellbutrin [...] this patient s visit, including available hand bread icer upon arrive, temperatur e check and being asked a series of screening questions. All staff wore face coverings during this encounter, as well as provided additional cleaning and sanitizing of all surfaces, including countertop s, pens, chairs, door handles, light switches, etc, prior to and following the patient s visit. [id number] Messi Garcia MD [facility] [address],[place] [address] 1 06/22/2021 14:38:59 06/23/2021 09:16:44 Body mass index 30+ - obesity 124354441 Z68.37 This patient is a 26-year-ol d [...] on the dietitian schedule. Gynecologi c examination 45558987 Z01.419 Abnormal u terine bleeding 7207994157 9100 N93.9 [id number] Messi Garcia MD [facility] [address],[place] [address] 1 06/25/2021 09:04:11 06/25/2021 09:23:27 Female infertility 7701126 N97.9 [id number] Peter Bryant [facility] [address],[place] [address] 1 06/25/2021 18:38:25 06/26/2021 09:09:27 Trying to conceive 548322639 Z31.9 [id number] [facility] [address],[place] [address] 1 06/26/2021 09:13:57 07/01/2021 15:54:18 Artificial insemination 04163788 Z31.83 [id number] Messi Garcia MD [facility] [address],[place] [address] 1 07/27/2021 17:11:55 07/27/2021 18:06:16 Uncertain viability of 259490286 O36.80X0 Z3A.01 10384 Messi Garcia MD [facility] [address],[place] [address] 1 08/05/2021 09:17:05 08/05/2021 10:16:25 Abdominal pain in early 266252378 Z33.1 Z3A.01 [id number] Messi Garcia MD [facility] [address],[place] [address] 1 08/18/2021 10:17:54 08/18/2021 11:20:00 [id number] [facility] [address],[place] [address] 1 08/18/2021 10:18:19 08/19/2021 12:30:57 Amenorrhea 47469986 Z31.89 Z31.83 57511 Pretty Cotton MD [facility] [address],[place] [address] 1 09/10/2021 14:50:18 09/10/2021 15:34:33 screening 793142026 Z36.82 [id number] Pretty Cotton MD [facility] [address],[place] [address] 1 09/10/2021 14:50:57 09/13/2021 15:22:01 Routine care 767419044 Z34.91 care: history of infertility 069695827 O09.[address] reptococcus carrier 9984180001 103 Z22.330 Hypothyroidism 08324500 E03.9 Maternal o besity complicating , childbirth and the puerperium, antepartum 8764353017 07 O99.211 406188 Pretty Cotton MD [facility] [address],[place] [address] 1 09/27/2021 17:43:48 09/28/2021 10:23:00 Chronic hypertension complicating AND/OR reason for care during 10580874 O16.9 [id number] MD Rhina Sanchez [address],[place] [address] 1 10/08/2021 14:49:27 10/08/2021 16:16:40 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 4939181 O16.9 care: history of infertility 285217183 O09.01 Hypothyroidism 12982339 E03.9 [id number] Messi Garcia MD [facility] [address],[place] [address] 1 11/03/2021 16:29:49 11/03/2021 18:37:35 screening 253809337 Z36.3 Z3A.20 [id number] [facility] [address],[place] [address] 1 11/03/2021 16:30:15 11/03/2021 18:37:10 Routine care 045016382 Z34.91 Anxiety 84954891 F41.9 [id number] Messi Garcia MD [facility] [address],[place] [address] 1 12/03/2021 15:10:07 12/03/2021 16:20:49 Hypothyroidism 63791716 E03.9 [id number] Messi Garcia MD [facility] [address],[place] [address] 1 12/03/2021 15:10:54 12/03/2021 17:08:45 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 Z36.2 Z3A.24 [id number] Messi Garcia MD [facility] [address] [address] 1 12/29/2021 15:21:10 12/29/2021 16:01:38 Placenta circumvallata 0275721 O43.113 O10.013 O99.213 Z3A.28 [id number] [facility] [address],[place] [address] 1 12/29/2021 15:22:44 12/29/2021 17:01:50 Routine care 044554238 Z34.91 - induced hypertension 62322247 O13.9 [id number] Messi Garcia MD [facility] [address] [address] 1 01/13/2022 13:47:29 01/13/2022 14:39:17 Medical examination for suspected condition 021759642 Z03.79 [id number] Messi Garcia MD [facility] [address],[place] [address] 1 01/13/2022 13:47:50 01/13/2022 15:53:18 Routine care 844264858 Z34.83 [id number] Pretty Cotton MD [facility] [address],[place] [address] 1 01/17/2022 16:24:29 01/17/2022 18:16:59 Threatened premature labor - not delivered 184094535 O47.9 [id number] Pretty Cotton MD [facility] [address],[place] [address] 1 01/17/2022 16:35:15 01/19/2022 15:28:55 Threatened premature labor - not delivered 259873589 O47.9 [id number] Messi Garcia MD [facility] [address],[place] [address] 1 01/26/2022 14:52:57 01/26/2022 15:27:45 Chronic hypertension complicating AND/OR reason for care during 08841649 O16.9 [id number] Messi Garcia MD [facility] [address],[place] [address] 1 01/26/2022 14:54:57 01/26/2022 16:22:26 Placenta circumvallata 5498717 O43.113 Z3A.32 O10.013 219158 [facility] [address],[place] [address] 1 01/26/2022 14:55:32 01/26/2022 16:39:21 Routine care 535479382 Z34.91 [id number] Messi Garcia MD [facility] [address] [address] 1 02/02/2022 16:59:59 02/02/2022 17:58:36 Maternal obesity complicating , childbirth and the puerperium, antepartum 6633603367 07 O99.213 [id number] Messi Garcia MD [facility] [address] [address] 1 02/02/2022 17:00:19 02/02/2022 18:17:03 Chronic hypertension complicating AND/OR reason for care during 65581693 O10.013 Z3A.33 [id number] [facility] [address],[place] [address] 1 02/02/2022 17:00:45 02/02/2022 18:50:24 Routine care 819386057 Z34.91 [id number] Messi Garcia MD [facility] [address],[place] [address] 1 02/09/2022 16:53:15 02/09/2022 17:49:24 Maternal obesity complicating , childbirth and the puerperium, antepartum 0322316703 07 O99.213 [id number] Messi Garcia MD [facility] [address] [address] 1 02/09/2022 16:53:36 02/09/2022 18:15:36 Chronic hypertension complicating AND/OR reason for care during 51707398 O10.013 O99.213 Z3A.34 [id number] [facility] [address],[place] [address] 1 02/09/2022 16:54:04 02/09/2022 18:25:27 Routine care 616203900 Z34.91 [id number] Messi Garcia MD [facility] [address] [address] 1 02/16/2022 17:00:10 02/16/2022 17:56:48 Chronic hypertension complicating AND/OR reason for care during 37559105 O10.013 O99.213 Z3A.34 [id number] Messi Garcia MD [facility] [address] [address] 1 02/16/2022 17:00:39 02/16/2022 18:07:43 Chronic hypertension complicating AND/OR reason for care during 46532851 O10.013 Z3A.35 O99.213 [id number] [facility] [address],[place] [address] 1 02/16/2022 17:01:03 02/16/2022 18:20:17 Routine care 345409582 Z34.91 [id number] Messi Garcia MD [facility] [address],[place] [address] 1 02/18/2022 15:23:24 02/18/2022 15:53:12 Reduced movement 124671491 O36.8199 [id number] [facility] [address],[place] [address] 1 02/23/2022 16:45:10 02/23/2022 18:18:35 Routine care 625370376 Z34.91 Large for gestation age fetus 199900829 O36.63X0 [id number] Messi Garcia MD [facility] [address] [address] 1 02/23/2022 16:42:55 02/23/2022 17:12:22 Chronic hypertension complicating AND/OR reason for care during 38552915 O10.013 Z3A.35 O99.213 [id number] Messi Garcia MD [facility] [address] [address] 1 02/23/2022 16:43:28 02/23/2022 17:56:35 Chronic hypertension complicating AND/OR reason for care during 11716416 O10.013 O99.213 Z3A.36 [id number] Pretty Cotton MD [facility] [address] [address] 1 03/16/2022 14:15:55 03/17/2022 16:13:50 Pain in pelvis 39641203 R10.2 [id number] Messi Garcia MD [facility] [address] [address] 1 03/17/2022 13:34:56 03/17/2022 14:02:57 Pain in pelvis 73663146 R10.2 this patient is a 25-year-ol d [...] face-to-fa ce discussing this very complex topic. [id number] Messi Garcia MD [facility] [address],[facility] [place] [address] 1 03/17/2022 13:35:31 03/18/2022 13:49:15 Pain in pelvis 00081029 R10.2 patient is a 27-year-ol d female [...] We spent over 20 minutes face-to-fa ce. 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 restart lexapro, to ed if any suicidal thoughts, reviewed se risks and benefits f/u 6 week med check if unavailabl e can do by phone Low grade squamous intraepithelial lesion on cervical Papanicolaou smear 8037617917 9105 R87.612 f/u pending pathology [id number] [facility] [address],[place] [address] 1 08/16/2023 11:38:58 08/16/2023 13:55:15 Pain in pelvis 98714225 R10.2 also start pelvic floor pT Gynecologi c examination 56678856 Z01.419 [id number] Messi Garcia MD [facility] [address],[place] [address] 1 08/22/2023 11:28:17 08/22/2023 12:06:29 Pain in pelvis 49428546 R10.2 patient is a 27-year-ol d female [...] We spent over 20 minutes face-to-fa ce. [id number] Messi Garcia MD [facility] [address],[place] [address] 1 04/23/2024 09:16:05 04/23/2024 10:09:58 screening 978274873 Z36.87 O30.049 Z3A.01 [id number] Messi Garcia MD [facility] [address],[place] [address] 1 05/10/2024 15:16:46 05/10/2024 16:01:31 [id number] [facility] [address],[place] [address] 1 05/10/2024 15:17:03 05/10/2024 16:51:44 Amenorrhea 84917735 Z31.89 Z31.83 Dichorioni c diamniotic twin 220277853 O30.049 reviewed US plan us at 12 weeksnipt at 10 weeks with labsawait pap until pp visitrevie wed precaution s and educationh x preeclamps ia without severe features last [id number] Messi Garcia MD [facility] [address],[place] [address] 1 05/21/2024 11:09:17 05/21/2024 12:05:12 Threatened miscarriage 23826759 O20.0 O30.041 Z3A.09 [id number] Messi Garcia MD [facility] [address],[place] [address] 1 05/23/2024 17:26:08 05/24/2024 10:31:39 Threatened miscarriage 24802536 O20.0 O30.041 Z3A.09 [id number] Messi Garcia MD [facility] [address],[place] [address] 1 05/23/2024 18:31:17 05/24/2024 10:33:13 Pain in pelvis 52681510 R10.2 this patient is a 29-year-ol d [...] is to contact us if pain worsens. [id number] Messi Garcia MD [facility] [address],[place] [address] 1 05/29/2024 10:21:34 05/29/2024 11:12:31 condition affecting obstetrical care of mother 000490966 O36.8910 Z3A.10 [id number] Messi Garcia MD [facility] [address],[place] [address] 1 06/03/2024 16:41:37 06/04/2024 14:32:45 screening 727542253 Z36.82 Z3A.11 [id number] [facility] [address],[place] [address] 1 06/05/2024 14:45:02 06/06/2024 16:44:18 Nausea and vomiting 42286551 R11.2 Migraine 17434338 G43.90 9 Routine an tenatal care 997383834 Z34.91 Twin 85464919 O30.009 [id number] Messi Garcia MD [facility] [address],[place] [address] 1 06/12/2024 17:23:11 06/12/2024 18:08:31 Medical examination for suspected condition 679005871 Z03.72 Z3A.12 [id number] Messi Garcia MD [facility] [address],[place] [address] 1 07/01/2024 16:17:41 07/01/2024 17:36:13 Dichorionic diamniotic twin 962081767 O30.042 Z3A.15 [id number] [facility] [address],[place] [address] 07/03/2024 09:17:02 07/03/2024 09:55:31 Gestation period, 15 weeks 6928640 Z3A.15 [id number] ALEC WILKINSON MD [facility] [address],[place] [address] 1 07/08/2024 10:41:29 07/08/2024 11:38:56 Pruritic rash 33667676 L28.2 Dichorioni c diamniotic twin 858538497 O30.049 Chronic hy pertension complicating AND/OR reason for care during 47233404 O16.9 Gestation period, 16 weeks 27902938 Z3A.16 [id number] Messi Garcia MD [facility] [address],[place] [address] 1 07/12/2024 10:38:28 07/12/2024 11:50:01 [id number] [facility] [address],[place] [address] 1 07/31/2024 16:35:21 08/01/2024 09:45:58 Gestation period, 19 weeks 33041846 Z3A.19 Dichorioni c diamniotic twin 987521883 O30.049 Gastroesop hageal reflux disease 470458393 K21.9 [id number] [facility] [address],[place] [address] 1 08/09/2024 12:12:22 08/09/2024 14:11:25 Pain in pelvis 93221269 R10.2 start physical therapy [id number] Messi Garcia MD [facility] [address] [place] [address] 1 08/22/2024 12:06:07 08/22/2024 13:36:01 Dichorionic diamniotic twin 011660262 O30.042 O36.8120 Z3A.23 [id number] [facility] [address],[place] [address] 1 08/28/2024 14:16:16 08/30/2024 10:02:02 [id number] [facility] [address],[place] [address] 1 08/29/2024 09:57:22 08/30/2024 10:26:31 Gestation period, 24 weeks 737096154 Z3A.24 [id number] Messi Garcia MD [facility] [address],[place] [address] 1 09/18/2024 11:30:12 09/18/2024 12:33:22 Dichorionic diamniotic twin 991764765 O30.042 O99.891 Z3A.26 [id number] [facility] [address],[place] [address] 1 09/27/2024 14:05:42 09/27/2024 14:47:06 Gestation period, 28 weeks 20330844 Z3A.28 [id number] Messi Garcia MD [facility] [address],[place] [address] 1 10/09/2024 13:51:09 10/09/2024 15:10:27 Dichorionic diamniotic twin 824043819 O30.043 O32.1XX2 Z36.2 Z3A.29 [id number] [facility] [address],[place] [address] 1 10/09/2024 13:51:24 10/09/2024 16:46:13 Gestation period, 29 weeks 18618221 Z3A.29 [id number] Messi Garcia MD [facility] [address],[place] [address] 1 10/22/2024 11:49:29 10/22/2024 13:06:50 Dichorionic diamniotic twin 200317683 O30.043 O24.410 O13.3 Z3A.31 [id number] [facility] [address],[place] [address] 1 10/23/2024 14:57:19 10/27/2024 19:34:15 Twin 26094753 O30.009 [id number] [facility] [address],[place] [address] 1 10/23/2024 14:57:44 10/23/2024 16:42:04 Gestation period, 31 weeks 34410173 Z3A.31 [id number] Messi Garcia MD [facility] [address],[place] [address] 1 10/30/2024 11:49:15 10/30/2024 12:53:32 Dichorionic diamniotic twin 372836112 O30.043 O24.410 O16.3 Z3A.32 [id number] [facility] [address] [address] 1 10/30/2024 11:49:41 10/30/2024 13:44:54 Gestation period, 32 weeks 4026061 Z3A.32 [id number] Messi Garcia MD [facility] [address],[place] [address] 1 11/06/2024 14:02:15 11/06/2024 15:08:32 Dichorionic diamniotic twin 529957707 O30.043 O24.414 O24.410 710393 ALEC WILKINSON MD [facility] [address],[place] [address] 1 11/06/2024 14:02:26 11/06/2024 17:33:51 Chronic hypertension complicating AND/OR reason for care during 56827186 O10.919 [id number] [facility] [address],[place] [address] 1 11/06/2024 14:02:37 11/06/2024 16:26:16 Gestation period, 33 weeks 85080577 Z3A.33 Dichorioni c diamniotic twin 210504848 O30.043 [id number] Messi Garcia MD [facility] [address],[place] [address] 1 11/13/2024 13:58:59 11/13/2024 15:10:18 Dichorionic diamniotic twin 106626580 O30.043 O24.410 O16.3 O99.213 Z3A.34 [id number] [facility] [address],[place] [address] 1 11/13/2024 13:59:12 11/13/2024 15:41:29 Chronic hypertension complicating AND/OR reason for care during 16105886 O10.919 [id number] [facility] [address],[place] [address] 1 11/13/2024 13:59:25 11/13/2024 16:05:11 Gestation period, 34 weeks 73255058 Z3A.34 [id number] Messi Garcia MD [facility] [address],[place] [address] 1 11/20/2024 13:42:52 11/20/2024 14:50:53 Dichorionic diamniotic twin 387989435 O30.043 O24.410 Z3A.35 [id number] [facility] [address],[place] [address] 1 11/20/2024 13:43:10 11/21/2024 12:11:29 Past history of gestational hypertension 002788421 Z87.59 [id number] [facility] [address],[place] [address] 1 11/20/2024 13:43:30 11/20/2024 16:02:36 Gestation period, 35 weeks 07046286 Z3A.35 Health Concerns Section Related Observation LastModified by Organization Detai ls LastModified Time None Recorded Concern Status LastModified by Organization Details LastModified Time None Recorded Advance Directives Directive N: Payers Insurance Date Sequence Insurance Name Policy Number Policy Steele Covered Member ID Steele Member ID Guarantor Name 05/10/[address] [facility] Chjc Xbb [id number] Yessica Kezia Corzine 05/18/2021 1 [facility] [id number] Luis Antonio Jae Corzine [id number] Yessica M Corzine 06/15/2022 *SELF PAY* Me kartik Mast Corzine 08/31/2020 2 [facility] Luis Antonio Corzine [id number] Yessica M Corzine 08/31/2020 3 [facility] Jospeh Corzine [id number] Yessica M Corzine 09/04/2020 2 [facility] Luis Antonio Corzine [id number] Yessica M Corzine 09/23/2020 2 [facility] Jospeph Corzine [id number] Yessica M Corzine 11/17/[address] [facility] [id number] Luis Antonio Jae Corzine [id number] Yessica M Corzine 05/10/[address] [facility] [id number] Vxbn FB BC [id number] Yessica Kezia Corzine OBGyn Episode Ob Episode Information Episode Created Date Number of Fetuses Patient Bloodtype Patient rh Status Prepregnancy Weight lbs Domestic Partner Domestic Partner Phone Father Name Gearman Status 12/25/19 20 1 CLOSED Fetus Data [...] Domestic Partner Domestic Partner Phone Father Name Gearman Status 12/25/19 20 1 CLOSED Fetus Data [...] Domestic Partner Domestic Partner Phone Father Name Gearman Status 09/11/19 22 1 A Positive 221 CLOSED Fetus Data First Name Last Name Admitted to NICU Weight (g) Sex Living Outcome Pediatric Complications Fetus ID Race Codes Race Delivery Type 4224.07 55 M true Full Term [id number] Vaginal Delivery Problems Problem Notes TSH WNL/A+/Ha1c/CBC WNL Problem Name Start Date End Date Resolution Snomed Code Not e Hypothyroidism 78796551 care: history of infertility 401694449 Group B Streptococcus carrier 1016150467650 bacteriuria Maternal obesity complicating , childbirth and the puerperium, antepartum 349743358456 BMI 39- ante testing at 37w 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 2875493 maia ellsworth , baseline labs, ASA Placenta circumvallata 9398515 Serial growth u/s Pre-eclampsia 708658782 Darren Calculation Initial Darren Date Initial Exam [...] Days Gestation 0 09/13/2021 03/23/20 22 0 Pre-erick Flowsheet Flowsheet Date 09/10/2021 Mckinney Score Blood Edema Fundus Height Fundus Units Glucose Ketones Leukocytes Nitrite Labor Signs Protein Cervic Dilation Cervic Effacement Cervic Station neg none Type Weight in lbs Pre/Post Dialysis Refused Weight 225.186226715887 BP Diastolic BP Location Tested BP Systolic [...] Weight in lbs Pre/Post Dialysis Refused Weight 226.962083502201 BP Diastolic BP Location Tested BP Systolic [...] Weight in lbs Pre/Post Dialysis Refused Weight 224.650111991058 BP Diastolic BP Location Tested BP Systolic [...] Weight in lbs Pre/Post Dialysis Refused Weight 230.142723817500 BP Diastolic BP Location Tested BP Systolic [...] Weight in lbs Pre/Post Dialysis Refused Weight 234.778307051662 BP Diastolic BP Location Tested BP Systolic [...] Weight in lbs Pre/Post Dialysis Refused Weight 235.309414855831 BP Diastolic BP Location Tested BP Systolic [...] Weight in lbs Pre/Post Dialysis Refused Weight 239.617044731602 BP Diastolic BP Location Tested BP Systolic [...] Weight in lbs Pre/Post Dialysis Refused Weight 240.107811978976 BP Diastolic BP Location Tested BP Systolic [...] Weight in lbs Pre/Post Dialysis Refused Weight 242.975001189353 BP Diastolic BP Location Tested BP Systolic [...] Weight in lbs Pre/Post Dialysis Refused Weight 243.157794628660 BP Diastolic BP Location Tested BP Systolic [...] Weight in lbs Pre/Post Dialysis Refused Weight 242.521722696910 BP Diastolic BP Location Tested BP Systolic [...] Weight in lbs Pre/Post Dialysis Refused Weight 246.083243297398 BP Diastolic BP Location Tested BP Systolic [...] Weight in lbs Pre/Post Dialysis Refused Weight 246.363066148224 BP Diastolic BP Location Tested BP Systolic [...] Weight in lbs Pre/Post Dialysis Refused Weight 211.502809185452 BP Diastolic BP Location Tested BP Systolic [...] Weight in lbs Pre/Post Dialysis Refused Weight 211.802568315978 BP Diastolic BP Location Tested BP Systolic BP Type 86 L arm 126 sitting Fetus Heart Rate Present Fetus Movement Comments Flowsheet Date 04/08/2022 Mckinney Score Blood Edema Fundus Height Fundus Units Glucose Ketones Leukocytes Nitrite Labor Signs Protein Cervic Dilation Cervic Effacement Cervic Station Type Weight in lbs Pre/Post Dialysis Refused Weight 212.58490266048 BP Diastolic BP Location Tested BP Systolic BP Type 84 134 Fetus Heart Rate Present Fetus Movement Comments Flowsheet Date 05/27/2022 Mckinney Score Blood Edema Fundus Height Fundus Units Glucose Ketones Leukocytes Nitrite Labor Signs Protein Cervic Dilation Cervic Effacement Cervic Station Type Weight in lbs Pre/Post Dialysis Refused Weight 221.301036557676 BP Diastolic BP Location Tested BP Systolic [...] Estim ated Date of Delivery false Thalassemia (Macanese, Danish, Mediterranean, Or Background): MCV < 80 false Neural Tube Defect (Meningomyelocele, Spina Bifi da, Or Anencephaly) false Congenital Heart Defect false Down Syndrome false Curt-Sachs (eg, Rastafari, Cajun, [place]an[place]) f alse Yung Disease false Sickle Cell Disease Or Trait () false Hemophilia Or Other Blood Disorders false Muscular Dystrophy false Cystic Fibrosis false [place]'s Chorea false Intellectual Disability/Autism false If Yes, [...] Domestic Partner Domestic Partner Phone Father Name Gearman Status 06/05/19 25 2 A Positive 198 Gabriel Mo OPEN Fetus Data First Name Last Name Admitted to NICU Weight (g) Sex Living Outcome Pediatric Complications Fetus ID Race Codes Race Delivery Type [id number] Problems Problem Notes Anatomy with [facility] - 07/31/24 1 300 [facility] U/S & OV [facility] 08/27/24 US only 1:00PM Problem Name Start Date End Date Resolution Snomed Code Not e care: history of infertility [id number] Past history of shoulder dystocia [id number] Large for gestation age fetus [id number] less then 30 se c shoulder dystocia Past history of pre-eclampsia [id number] bASA x2 Migraine [id number] magnesium, Excedrin tension, sumatriptan 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 [id number] Palpitations [id number] Holter monitor faxed to [facility] 07/29 Gestational diabetes mellitus 10/10/2024 [id number] Glucose tolerance test outside reference range 10/01/2024 [id number] 10/01/2024 ecking blood sugars for 2 week instead for doing 3 hour Twin [id number] 38 wk deliveryantenatal testing @ 32wks per [facility] Scheduled rpt 4/22 us ONLY Darren Calculation Initial Darren Date [...] Weight in lbs Pre/Post Dialysis Refused Weight 207.529348574937 BP Diastolic BP Location Tested BP Systolic [...] paperwork. will plan on referral to [facility] for anatomy and history of HTN/preeclampsia, [...] Type Weight in lbs Pre/Post Dialysis Refused 214.179652752623 BP Diastolic BP Location Tested BP Systolic [...] Weight in lbs Pre/Post Dialysis Refused Weight 216.153159886222 BP Diastolic BP Location Tested BP Systolic [...] No bleeding. Will send for anatomy at [facility]. Will measure for belly band [...] Type Weight in lbs Pre/Post Dialysis Refused 220.330240240727 BP Diastolic BP Location Tested BP Systolic BP Type 92 152 53 114 Fetus Heart Rate Present Fetus Movement A Yes B Yes Comments Patient is having headaches, pain, contractions, swelling, Had elevated heart rate over the weekend and get heart moniter on , 08/08/24. saw [facility] this morning rec 2 bASA, will rpt anatomy in 4 weeks, precautions and education f/u 4 weeks Flowsheet Date 08/09/2024 Mckinney Score Blood Edema Fundus Height Fundus Units Glucose Ketones Leukocytes Nitrite Labor Signs Protein Cervic Dilation Cervic Effacement Cervic Station neg none none neg Type Weight in lbs Pre/Post Dialysis Refused 227.422537596622 BP Diastolic BP Location Tested BP Systolic [...] Weight in lbs Pre/Post Dialysis Refused Weight 229.999215421519 BP Diastolic BP Location Tested BP Systolic BP Type 89 133 Fetus Heart Rate Present Fetus Movement A Yes B Yes Comments Patient is having pressure, contractions and swelling. Flowsheet Date 08/29/2024 Mckinney Score Blood Edema Fundus Height Fundus Units Glucose Ketones Leukocytes Nitrite Labor Signs Protein Cervic Dilation Cervic Effacement Cervic Station Type Weight in lbs Pre/Post Dialysis Refused 232.98456785156 BP Diastolic BP Location Tested BP Systolic [...] Type Weight in lbs Pre/Post Dialysis Refused 236.748736124058 BP Diastolic BP Location Tested BP Systolic [...] Type Weight in lbs Pre/Post Dialysis Refused 234.451728607412 BP Diastolic BP Location Tested BP Systolic BP Type 87 138 Fetus Heart Rate Present Fetus Movement A Yes B Yes Comments Patient is having pain and c ontractions and swelling. 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 studies director referral to fiordaliza, eduction and precautions f/u [...] Weight in lbs Pre/Post Dialysis Refused Weight 241.738722318696 BP Diastolic BP Location Tested BP Systolic BP Type 82 125 Fetus Heart Rate Present Fetus Movement Comments Flowsheet Date 10/23/2024 Mckinney Score Blood Edema Fundus Height Fundus Units Glucose Ketones Leukocytes Nitrite Labor Signs Protein Cervic Dilation Cervic Effacement Cervic Station neg trace Type Weight in lbs Pre/Post Dialysis Refused 241.59317141551 BP Diastolic BP Location Tested BP Systolic [...] Type Weight in lbs Pre/Post Dialysis Refused 248.969619648565 BP Diastolic BP Location Tested BP Systolic [...] Type Weight in lbs Pre/Post Dialysis Refused 238.561703124570 BP Diastolic BP Location Tested BP Systolic BP Type 89 L arm 127 sitting Fetus Heart Rate Present Fetus Movement A Yes B Yes Comments NST R x 2, +FM uncomofortabl e, precautions and education f/u one weekcervix 4cm soft -3 efw 75%, baby b 58% continue meds until IOL Flowsheet Date 11/20/2024 Mckinney Score Blood Edema Fundus Height Fundus Units Glucose Ketones Leukocytes Nitrite Labor Signs Protein Cervic Dilation Cervic Effacement Cervic Station Type Weight in lbs Pre/Post Dialysis Refused BP Diastolic BP Location Tested BP Systolic BP Type Fetus Heart Rate Present Fetus Movement Comments Flowsheet Date 11/20/2024 Mckinney Score Blood Edema Fundus Height Fundus Units Glucose Ketones Leukocytes Nitrite Labor Signs Protein Cervic Dilation Cervic Effacement Cervic Station Type Weight in lbs Pre/Post Dialysis Refused BP Diastolic BP Location Tested BP Systolic BP Type Fetus Heart Rate Present Fetus Movement Comments Flowsheet Date 11/20/2024 Mckinney Score Blood Edema Fundus Height Fundus Units Glucose Ketones Leukocytes Nitrite Labor Signs Protein Cervic Dilation Cervic Effacement Cervic Station Type Weight in lbs Pre/Post Dialysis Refused Weight 243.328766634970 BP Diastolic BP Location Tested BP Systolic BP Type 84 L arm 133 sitting Fetus Heart Rate Present Fetus Movement A Yes Comments +FM, sleeping better during day bpp 10/10 precautions and education f/u one week Menstrual History Last Menstrual Date Menses [...]
--- OUTSIDE RECORDS SUMMARY | 2024-11-22 01:12 | XMS_ITS | Clinical Summary ---
Author Organization [facility] Address [address] [place] [address] Care Team Providers Care Cuff Setter Name Role Phone Scooter White DO Primary Care Provider Source Comments [facility],non-owned Affiliates and Associated Physician Practices is amultiple site organization consisting of ambulatory clinics and hospital sitesin [place], [place], [place] and [place]. This disclosure is being madepursuant to the Care Everywhere program and may not contain all information available regarding this patient. Last updated 18.[facility] Allergies Active Allergy Reactions Criticality Noted Date [...] Care Team Description 10/28/2024 Telephone [facility] [address] [place], [place] [id number] Silvina León Appointment 09/24/2024 1:00 PM CDT - 09/24/2024 11:59 PM CDT Hospital Encounter [facility] [address] [place] [address] Derick Mcclendon MD BOX OFFICE MANAGER Discharge Disposition: Home or Self Care 08/27/2024 12:58 PM CDT - 08/27/2024 11:59 PM CDT Hospital Encounter [facility] [address] [place] [address] Christiano Tristan MD Discharge Disposition: Home or [...] on file Legal Sex Female 1:08 PM CUSTOMER SOLUTIONS SPECIALIST Gender Identity Not on file Sexual [...] (HCC) Dichorionic diamniotic twin in second trimester ([facility]) 28 weeks gestation of ([facility]) Supervision of high risk in second trimester ([facility]) Obesity affecting in second trimester, unspecified obesity type ([facility]) Encounter for follow-up ultrasound of anatomy ([facility]) Encounter for ultrasound to assess growth ([facility]) SONOGRAM - COMPLETE Routine 08/27/2024 1 2:52 PM CDT Dichorionic diamniotic twin in second trimester ([facility]) History of pre-eclampsia in prior , currently ([facility]) 24 weeks gestation of ([facility]) Supervision of high risk in second trimester ([facility]) from Last 3 Months Results * SONOGRAM - COMPLETE (09/24/2024 1:09 PM CDT) Only the most recent of2 resultswithin the time period is included. Linked Results Indication ======== DA/DC Twins Incomplete Anatomy Screen x2 History of Preeclampsia, Obesity in , Class II History ====== OB History 4. Para 3 [id number] 1. live 2011. Gest. age 41 w [...] 2 lb 14 oz EFW by Hadlock ([id number]) EFW discordance 4.6 % appropriate Fetus B: Biometry BPD 69.2 mm 27w 6d 42% Hadlock HC 260.6 mm 28w 2d 39% Hadlock AC 252.3 mm 29w 3d 88% Hadlock Femur 51.1 mm 27w 3d 25% Hadlock Humerus 48.6 mm 28w 4d 68% Robinson HC / AC 1.03 Weight Calculation: EFW 1,242 g 69% Hadlock EFW (lb,oz) 2 lb 12 oz EFW by Hadlock ([id number]) EFW discordance 4.6 % appropriate Fetus A: [...] Thorax RVOT view. LVOT view. 3-vessel view. 8-rwlmnd-nzfgztm view. Situs. Bicaval view. Ductal arch view. [...] view. RVOT view. LVOT view. 3-vessel view. 4-iweato-vstjwrt view. Situs. Aortic arch view. Bicaval view. [...] and begin weekly testing Coding ====== Procedures [id number]: US Preg Uterus Follow Up. x2 [employer] PACS Anatomical Region Laterality Modality Other 09/24/2024 1:09 PM CDT R Bert Garcia MD [facility]LES Edited Result - Final from Last 3 Months Insurance HEALTH CARE Care Teams Cuff Setter Relationship Specialty Start Date End Date Scooter White DO PCP - General 03/16/22
--- OUTSIDE RECORDS SUMMARY | 2024-11-22 01:12 | XMS_ITS | Encounter Summary ---
Author Organization [facility] Address [address] [place] [address] Care Team Providers Care Performance Test Engineer Name Role Phone Scooter White DO Primary Care Provider [phone] Encounter Details Date Type Department Care Team (Late st Contact Info) Description 11/06/2018 Lab Requisition [facility] [address] [place] [address] Cindi Herrera MD [address] [place] [address] Enlarged lymph nodes Social History Tobacco Use Types Packs/Day Years Used Date Smoking Tobacco: Never Smokeless Tobacco: Never Alcohol Use Standard Drinks/Week Comments No 0 (1 standard drink = 0.6 oz pur e alcohol) Comments No Sex and Gender Information Value Date Recorded Sex Assigned at Not on file Legal Sex Female 1:08 PM INVESTMENT SALES 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 - See interpretation. 9 5:33 PM [facility] at 1733 CDT [...] the flow cytometry specimen is reviewed for air quality specialist purposes. In summary, the left cervical lymph node specimen shows no evidence of a non-Hodgkin lymphoma. Correlation with additional clinical information and the concurrent biopsy specimen is required. KR 9 5:33 PM [facility] Flow Cytometry Results Differential Result Comment Flow Cell Count /uL [id number] Total Viability % 86.0 Lymphocytes % 97 Dim CD45 Region % 0 Monocytes % 1 Granulocytes % 1 9 5:33 PM [facility] Reason for test Enlarged lymph nodes 785.6 9 5:33 PM [facility] Client Specimen ID # [id number] 9 5:33 PM [facility] Number of markers 16 were performed. A Flow CD3 A Flow CD10 A Flow CD20 A Flow CD23 A Flow CD2 A Flow CD4 A Flow CD1a A Flow CD5 A Flow CD19 A Flow CD34 A Flow CD45 A Flow CD7 A Flow CD8 A Flow CD30 A [place]+CD19+ A Lambda+CD19+ 9 5:33 PM [facility] Disclaimer Test performed at [facility], [address] [place], [place], [address]. *The established laboratory minimum viability is 70%. [...] clinical testing. 9 5:33 PM CDT [facility] Embedded Images 9 5:33 PM CDT [facility] Pathology/Cytolo gy ENTIRE CERVICAL LYMPH NODE / Unknown 11/05/2018 11:02 AM CDT 11/06/2018 2:01 PM CDT Cindi Herrera MD LAB - PATHOLOGY/CYTOLOGY ORDERA BLE Final Result [facility] [address] [place] [address], [facility] [phone] documented in this encounter Visit Diagnoses Diagnosis Enlarged lymph nodes Enlargement of lymph nodes documented in this encounter Care Teams Performance Test Engineer Relationship Specialty Start Date End Date Scooter White DO PCP - General 03/16/22 documented as of this encounter
--- OUTSIDE RECORDS SUMMARY | 2024-11-22 01:12 | XMS_ITS | Continuity of Care Document ---
Author Organization [facility] Address [address] [place] [address] [address] [place] [address] Phone Care Team Providers Care Business Risk Consultant Name Role Phone Carol OD OD, Georgina [...] - Active Procedures Procedure Date OFFICE/OUTPATIENT VISIT, [facility] Comp cont lens eval No Charge Visit N/C Glasses Check Advance Directives Directive Yes / No Effective Date File Name No Information Encounters Encounter Description Practice Location Reason(s) For Visit Diagnoses Date Provider Providers Copied on Encounter [facility], [address] [place] [address], [place], [place], [id number], tel:[phone] OPH CONSULT KENTRELL LOPEZ No Information 3 Carol OD Georgina. [address], [address], [place], [place], [id number], [place]. tel:[phone] Referring Provider: Georgina Medina OD, [address], [place], [address] . tel:[phone] OFFICE/OUTPA TIENT VISIT, [facility], [address] [place] [address], [id number], tel:[phone] OPH CONSULT EKNTRELL LOPEZ blurry vision (chief complaint) dry eye (chief complaint) Krystin's thyroiditisMyo roger, bilateralTear film insufficiency of bilateral lacrimal glandsOther vitreous opacities, bilateralCorne al neovasculariza tion of both eyes 2 Derheimer OD Georgina. [address], [address] [place] [address], [id number], [place]. tel:[phone] Referring Provider: Scooter White, [address], [place], [address]. tel:[phone] [facility], [address] [place] [address], [id number], tel:[phone] [facility] Services KENTRELL LOPEZ No Information 6 Derheimer OD Georgina. [address], [address] [place] [address], [id number], [place]. tel:[phone] Referring Provider: Georgina Medina OD, [address], [place], [address] . tel:[phone] [facility], [address] [place] [address], [id number], tel:[phone] OPH CONSULT KENTRELL LOPEZ blurry vision (chief complaint) Myopia, bilateral 6 Derheimer OD Georgina. [address], [place], [place], [id number], [place]. tel:[phone] Referring Provider: Georgina Medina OD, [address], [place], [address] . tel:[phone] [facility], [address] [place] [address], [id number], tel:[phone] OPH CONSULT KENTRELL LOPEZ No Information 1 Beth Cohenl. [address], [place], [place], [id number], [place]. tel:[phone] Family History Family Member Type Diagnosis Age [...]
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
--- OUTSIDE RECORDS SUMMARY | 2024-11-22 01:12 | XMS_ITS | Encounter Summary ---
Author Organization [facility] Address [address] [place] [address] Phone Care Team Providers Care Manager Operations And Procurement Name Role Phone Manda Singh MD Unavailable [phone] Robby Torres Primary Care Provider [phone] Scooter White DO Primary Care Provider Malik Cates MD Unavailable Ulices Marino MD Unavailable Yon Gutierrez MD Primary Care Provider Georgina Fontenot APRN, [facility] Unavailable [phone] Encounter Details Date Type Department Care Team (Late st Contact Info) Description 04/09/2020 Telephone [facility] [address] [address] [address] Saud Dalton MD [address] [place] [phone] Social History Tobacco Use Types Packs/Day [...] COVID-19? No / Unsure 03/20/2020 6:06 AM OUTREACH LIBRARIAN documented as of this encounter Miscellaneous Notes * Telephone Encounter - Mahnaz Alaniz - 04/09/2020 2:50 PM CST Patient no showed her appointment, left voice message to call the office to reschedule. Sent out a no show letter. EACH LIBRARIAN documented in this encounter Plan of Treatment Not on file documented as of this encounter Visit Diagnoses Not on filedocumented in this encounter Additional Health Concerns Assessment Noted Time PHQ-9 Depression Total Score: 0 02/11/20 20 12:57 PM CDT documented as of this encounter Care Teams Manager Operations And Procurement Relationship Specialty Start Date End Date Robby Torres [address] [place] [address] PCP - General Family Medicine 02/11/20 03/16/21 Scooter White DO [address] [place] [address] [place] [address] PCP - General Internal Medicine 03/17/21 06/22/23 Yon Gutierrez MD [address] [place] [address] [address] PCP - General Family Medicine 06/23/23 Manda Singh MD Obstetrics & Gynecology 02/11/20 Malik Cates MD [address] [address] Consulting Physician Endocrinology 12/13/21 Ulices Marino MD [address] [address] Consulting Physician Colon and Rectal Surgery 07/06/22 Georgina Fontenot APRN, AIR POLLUTION ENGINEER [address] [place] [address] Nurse Practitioner Advanced Practice Nurse 09/25/24 documented as of this encounter
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
--- OUTSIDE RECORDS SUMMARY | 2024-11-22 01:12 | XMS_ITS | Continuity of Care Document ---
Author Organization [facility] Address [address] [place] [address] [place] [address] Phone Care Team Providers Care Rn Emergency Room Name Role Phone Robby Torres MD Unavailable [...] Diagnoses Date Provider Providers Copied on Encounter [facility], [address] [facility] [place], [id number], [place] tel:[phone] [facility] No Information 1 Brian Bustamante. [address], [place], [place], [address] , [place]. tel:[phone] [facility], [address], [place], [place], [address], [place] tel:[phone] [facility] No Information 0 Brian Bustamante. [address], [address], [place], [place], [address] , [place]. tel:[phone] OFFICE/OUTPA TIENT VISIT, [facility], [address], [place], [place], [address], [place] tel:[phone] [facility] anxiety1 (chief complaint) Generalized Anxiety DisorderHypothyroid ism 0 Brian Bustamante. [address], [address], [place], [place], [address] , [place]. tel:[phone] Referring Provider: Robby Torres [address], [place], [place], [address]. tel:[phone] OFFICE/OUTPA TIENT VISIT, [facility], [address], [place], [place], [address], [place] tel:[phone] [facility] anxiety1 (chief complaint) Generalized Anxiety DisorderGoiter 0 Brian Bustamante. [address], [place], [place], [address] , [place]. tel:[phone] Referring Provider: Robby Torres [address], [place], [place], [address]. tel:[phone] OFFICE/OUTPA TIENT VISIT, [facility], [address], [place], [place], [address], [place] tel:[phone] [facility] thyroid nodule1 (chief complaint) anxiety1 (chief complaint) GoiterGeneralized Anxiety Disorder 0 Brian Menendez [address], [address], [place], [place], [address] , [place]. tel:[phone] Referring Provider: Gissel Banks [address], [place], [place], [address]. tel:[phone] OFFICE/OUTPA TIENT VISIT, [facility], [address], [place], [place], [address], [place] tel:[phone] [facility] anxiety1 (chief complaint) iron1 (chief complaint) thyroid1 (chief complaint) Disorder of iron metabolism, unspecifiedGoiterGe neralized Anxiety Disorder Lonnie-0 0 Brian Bustamante. [address], [place], [place], [address] , [place]. [phone] Referring Provider: Gissel Banks [address], [place], [place], [address]. tel:[phone] OFFICE/OUTPA TIENT VISIT, [facility], [address], [place], [place], [address], [place] tel:[phone] [facility] ankle pain1 (chief complaint) fatigue1 (chief complaint) thyroid1 (chief complaint) anemia1 (chief complaint) Pain in right ankleFatigueAnemiaG oiter 0 Brian Bustamante. [address], [address], [place], [place], [address] , [place]. tel:[phone] Referring Provider: Gissel Banks [address], [place], [place], [address]. tel:[phone] OFFICE/OUTPA TIENT VISIT, [facility], [address], [place], [place], [address], [place] tel:[phone] [facility] rash1 (chief complaint) Allergic contact dermatitis due to plants, except food Aug- 0 Brian Bustamante. [address], [address], [place], [place], [address] , [place]. [phone] Referring Provider: Gissel Banks [address], [place], [place], [address]. tel:[phone] OFFICE/OUTPA TIENT VISIT, [facility], [address], [place], [place], [address], tel:[phone] [facility] Medicine thyroid1 (chief complaint) ferritin1 (chief complaint) IgA (chief complaint) fatigue1 (chief complaint) GoiterDisorder of iron metabolism, unspecifiedVitamin D deficiency, unspecifiedRaised level of immunoglobulinAnemi aH. pylori as the cause of diseases classified elsewhereFatigue 0 Brian Bustamante. [address] [facility] [place], [address] , . tel:[phone] Referring Provider: Gissel Banks [place], [address]. tel:[phone] PREV VISIT, NEW, AGE 18-39 [facility], [address] [place] [address] [employer] [place], [place], [address], tel:[phone] [facility] PHysical (chief complaint) Encntr for general adult medical exam w/o abnormal findings 0 Brian Bustamante. [address], [facility] [address], [place], [place], [address] , [place]. tel:[phone] Referring Provider: Robby Torres [address] [place] [address], [id number]. tel:[phone] Family History Family Member Type Diagnosis Age [...] BIOPSY ordered Referral Referred To: Joe Fontana [address] [facility]
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
--- OUTSIDE RECORDS SUMMARY | 2024-11-22 01:13 | XMS_ITS | Data Portability ---
Author Organization [facility] Address [address] [facility] [place] [address] Care Team Providers Care Adult Parole Officer Name Role Phone ZO MORA OTHER [phone] Assessment Encounter Date Assessment Date Assessment LastModified [...] 2018 019 [facility], [address] [address], [place], [address], 9 06:40:13 ferritin, serum or plasma 2018 019 [facility], [address] [facility] [address], [place], [address], 9 06:40:14 iron + total iron-bindin g capacity (TIBC), serum 2018 019 [facility], [address] [place] [address] 2, [place], [address], 9 06:40:14 HIV 1+2 AB + HIV 1 p24 Ag, qualitative immunoassay , serum 2018 019 [facility], [address], [place], [address], 9 07:12:01 HBsAg (hepatitis B surface Ag), EIA, serum 2018 019 [facility], [address], [place], [address], 9 07:12:02 hepatitis C Ab, signal-to-c utoff, serum or plasma 2018 019 [facility], [address], [place], [address], 9 07:12:01 RPR (rapid plasma reagin), serum 2018 019 [facility], [address], [place], [address], 9 07:12:00 hsv (1+2) igg Ab, serum 2018 019 [facility], [address] [facility], [place], [address], 9 07:12:00 CBC w/ auto diff 2018 019 [facility], [address] [facility], [place], [address], 9 07:11:59 Referral general surgeon referral 2018 019 LANA Moralez MD, [address] [facility] , [address], [place], [address], 9 12:38:24 ENT referral - Saw Dr. Mora --- need a second opinion. 2018 019 [facility], [address] [facility], [address], [place], [address], 9 17:55:21 Procedures None recorded. Surgeries None recorded. Imaging None recorded. Medication Orders ferrous sulfate 325 mg (65 mg iron) tablet [address] [facility], [address] [place] [address], [address], 9 11:26:58 Mucinex 600 mg tablet, extended release [address] [facility] [address] [facility], [address] [place] [address], [address], 9 00:24:12 ferrous sulfate 325 mg (65 mg iron) tablet [address] [facility] [address] [facility], [address] [place] [address], [address], 9 12:48:40 Tessalon Perles 100 mg capsule [address] [facility] [address] [facility], [address] [place] [address], [address], 9 00:24:06 Patient TargetsNo targets recorded. Patient Instructions Encounter Date Encounter Id Patient Instructions Last Modified By Organization Details Last Modified Time 07/27/2018 [id number] upper respirator y infection (cold): care instructions [email or web address] Not available 07/27/2018 13:23:41 08/29/2018 [id number] hemorrhoids: car e instructions Not available 08/29/2018 16:13:52 anemia: care instructions Not available 08/29/2018 18:08:26 09/05/2018 [id number] Acute Sinusitis: Care Instructions Not available 09/05/2018 12:48:40 11/13/2018 [id number] hemorrhoids: car e instructions [facility] Not available 11/27/2018 00:17:15 02/13/2019 [id number] dizziness: care instructions [facility] Not available 02/13/2019 11:26:58 electrocardiogra m interpretation* [facility] Not available 03/13/2019 15:05:29 Reason for Referral ENT Referral for Cervical ly mphadenopathy Saw Dr. Mora --- need a second opinion. Referring Physician: Lucero Sandoval, Family Medicine, Encounter Date: 07/27/2018 General Surgeon Referral for Hemorrhoids Referring Physician: Ricardo Ramirez, [employer], Encounter Date: 08/29/2018 Results Created Date Observation Date Name Description Value Unit Range Abnormal Flag Note LastModifiedBy Organization Detail LastModifiedTime 07/04/19 19 07/05/2018 TSH + free T4, serum TSH 3.080 uIU/m L 0.450- 4.500 Not Available [facility] ([facility]) [address] [place], [address], 07/05/2018 09:23:03 07/04/19 19 07/05/2018 TSH + free T4, serum T4,free(dire ct) 1.06 NG/dL 0.82-1 .77 Not Available [facility] ([facility]) [address] [place], [address], 07/05/2018 09:23:03 07/04/19 19 07/04/2018 CBC w/ auto diff WBC 7.2 x10e3 /uL 3.4-10 .8 Not Available [facility] ([facility]) [address] [place], [address], 07/05/2018 09:23:03 07/04/19 19 07/04/2018 CBC w/ auto diff RBC 4.87 x10e6 /uL 3.77-5 .28 Not Available [facility] ([facility]) [address] [place], [address], 07/05/2018 09:23:03 07/04/19 19 07/04/2018 CBC w/ auto diff hemoglobin 11.5 g/dL 11.1-1 5.9 Not Available [facility] ([facility]) [address] [place], [address], 07/05/2018 09:23:03 07/04/19 19 07/04/2018 CBC w/ auto diff hematocrit 36.2 % 34.0-4 6.6 Not Available [facility] ([facility]) [address] [place], [address], 07/05/2018 09:23:03 07/04/19 19 07/04/2018 CBC w/ auto diff MCV 74 fL 79-97 below low normal Not Available [facility] ([facility]) [address] [place], [address], 07/05/2018 09:23:03 07/04/19 19 07/04/2018 CBC w/ auto diff MCH 23.6 pg 26.6-3 3.0 below low normal Not Available [facility] ([facility]) [address] [place], [address], 07/05/2018 09:23:03 07/04/19 19 07/04/2018 CBC w/ auto diff MCHC 31.8 g/dL 31.5-3 5.7 Not Available [facility] ([facility]) [address] [place], [address], 07/05/2018 09:23:03 07/04/19 19 07/04/2018 CBC w/ auto diff RDW 16.0 % 12.3-1 5.4 above high normal Not Available [facility] ([facility]) [address] [place], [address], 07/05/2018 09:23:03 07/04/19 19 07/04/2018 CBC w/ auto diff platelets 480 x10e3 /uL 150-37 9 above high normal Not Available [facility] ([facility]) [address] [place], [address], 07/05/2018 09:23:03 07/04/19 19 07/04/2018 CBC w/ auto diff neutrophils 64 % not estab. Not Available [facility] ([facility]) [address] [place], [address], 07/05/2018 09:23:03 07/04/19 19 07/04/2018 CBC w/ auto diff lymphs 28 % not estab. Not Available [facility] ([facility]) [address] [facility], [place], [address], 07/05/2018 09:23:03 07/04/19 19 07/04/2018 CBC w/ auto diff monocytes 6 % not estab. Not Available [facility] ([facility]) [address] [facility], [place], [address], 07/05/2018 09:23:03 07/04/19 19 07/04/2018 CBC w/ auto diff eos 1 % not estab. Not Available [facility] ([facility]) [address] [place], [address], 07/05/2018 09:23:03 07/04/19 19 07/04/2018 CBC w/ auto diff basos 1 % not estab. Not Available [facility] ([facility]) [address] [facility], [place], [address], 07/05/2018 09:23:03 07/04/19 19 07/04/2018 CBC w/ auto diff immature cells EYE TECHNICIAN Not Available [facility] ([facility]) [address] [facility], [place], [address], 07/05/2018 09:23:03 07/04/19 19 07/04/2018 CBC w/ auto diff neutrophils (absolute) 4.6 x10e3 /uL 1.4-7. 0 Not Available [facility] ([facility]) [address] [place], [address], 07/05/2018 09:23:03 07/04/19 19 07/04/2018 CBC w/ auto diff lymphs (absolute) 2.0 x10e3 /uL 0.7-3. 1 Not Available [facility] ([facility]) [address] [place], [address], 07/05/2018 09:23:03 07/04/19 19 07/04/2018 CBC w/ auto diff monocytes(ab solute) 0.5 x10e3 /uL 0.1-0. 9 Not Available [facility] ([facility]) [address] [facility], [place], [address], 07/05/2018 09:23:03 07/04/19 19 07/04/2018 CBC w/ auto diff eos (absolute) 0.1 x10e3 /uL 0.0-0. 4 Not Available [facility] ([facility]) [address] [facility], [place], [address], 07/05/2018 09:23:03 07/04/19 19 07/04/2018 CBC w/ auto diff baso (absolute) 0.1 x10e3 /uL 0.0-0. 2 Not Available [facility] ([facility]) [address] [facility], [place], [address], 07/05/2018 09:23:03 07/04/19 19 07/04/2018 CBC w/ auto diff immature granulocytes 0 % not estab. Not Available [facility] ([facility]) [address] [facility], [place], [address], 07/05/2018 09:23:03 07/04/19 19 07/04/2018 CBC w/ auto diff immature grans (abs) 0.0 x10e3 /uL 0.0-0. 1 Not Available [facility] ([facility]) [address] [facility], [place], [address], 07/05/2018 09:23:03 07/04/19 19 07/04/2018 CBC w/ auto diff NRBC EYE TECHNICIAN Not Available [facility] ([facility]) [address] [place], [address], 07/05/2018 09:23:03 07/04/19 19 07/04/2018 CBC w/ auto diff hematology comments: EYE TECHNICIAN Not Available [facility] ([facility]) [address] [facility], [place], [address], 07/05/2018 09:23:03 07/04/19 19 07/05/2018 CMP, serum or plasm a glucose 90 mg/dL 65-99 Not Available [facility] ([facility]) [address] [place], [address], 07/05/2018 09:23:04 07/04/19 19 07/05/2018 CMP, serum or plasm a BUN 9 mg/dL 6-20 Not Available [facility] ([facility]) [address] [place], [address], 07/05/2018 09:23:04 07/04/19 19 07/05/2018 CMP, serum or plasm a creatinine 0.66 mg/dL 0.57-1 .00 Not Available [facility] ([facility]) [address] [place], [address], 07/05/2018 09:23:04 07/04/19 19 07/05/2018 CMP, serum or plasm a eGFR if nonafricn AM 123 mL/mi n/1.7 3 >59 Not Available [facility] ([facility]) [address] [place], [address], 07/05/2018 09:23:04 07/04/19 19 07/05/2018 CMP, serum or plasm a eGFR if africn AM 142 mL/mi n/1.7 3 >59 Not Available [facility] ([facility]) [address] [place], [address], 07/05/2018 09:23:04 07/04/19 19 07/05/2018 CMP, serum or plasm a BUN/creatini ne ratio 14 9-23 Not Available [facility] ([facility]) [address] [place], [address], 07/05/2018 09:23:04 07/04/19 19 07/05/2018 CMP, serum or plasm a sodium 139 mmol/ L 134-14 4 Not Available [facility] ([facility]) [address] [place], [address], 07/05/2018 09:23:04 07/04/1907/05/2018 CMP, serum or plasm a potassium 4.4 mmol/ L 3.5-5. 2 Not Available [facility] ([facility]) [address] [place], [address], 07/05/2018 09:23:04 07/04/1907/05/2018 CMP, serum or plasm a chloride 102 mmol/ L 96-106 Not Available [facility] ([facility]) [address] [place], [address], 07/05/2018 09:23:04 07/04/1907/05/2018 CMP, serum or plasm a carbon dioxide, total 23 mmol/ L 20-29 Not Available [facility] ([facility]) [address] [place], [address], 07/05/2018 09:23:04 07/04/1907/05/2018 CMP, serum or plasm a calcium 9.7 mg/dL 8.7-10 .2 Not Available [facility] ([facility]) [address] [place], [address], 07/05/2018 09:23:04 07/04/19 19 07/05/2018 CMP, serum or plasm a protein, total 8.1 g/dL 6.0-8. 5 Not Available [facility] ([facility]) [address] [place], [address], 07/05/2018 09:23:04 07/04/1907/05/2018 CMP, serum or plasm a albumin 4.6 g/dL 3.5-5. 5 Not Available [facility] ([facility]) [address] [place], [address], 07/05/2018 09:23:04 07/04/1907/05/2018 CMP, serum or plasm a globulin, total 3.5 g/dL 1.5-4. 5 Not Available [facility] ([facility]) [address] [place], [address], 07/05/2018 09:23:04 07/04/1907/05/2018 CMP, serum or plasm a A/G ratio 1.3 1.2-2. 2 Not Available [facility] ([facility]) [address] [place], [address], 07/05/2018 09:23:04 07/04/1907/05/2018 CMP, serum or plasm a bilirubin, total 0.3 mg/dL 0.0-1. 2 Not Available [facility] ([facility]) [address] [place], [address], 07/05/2018 09:23:04 07/04/1907/05/2018 CMP, serum or plasm a alkaline phosphatase 68 IU/L 39-117 Not Available [facility] ([facility]) [address] [place], [address], 07/05/2018 09:23:04 07/04/1907/05/2018 CMP, serum or plasm a AST (SGOT) 20 IU/L 0-40 Not Available [facility] ([facility]) [address] [place], [address], 07/05/2018 09:23:04 07/04/1907/05/2018 CMP, serum or plasm a ALT (SGPT) 15 IU/L 0-32 Not Available [facility] ([facility]) [address] [place], [address], 07/05/2018 09:23:04 07/04/1907/05/2018 cytom egalo virus (cmv) igg+i gm Ab, serum cytomegalovi yung (CMV) Ab, IgG <0.60 U/mL 0.00-0 .59 Negat hayde <0.60 Equiv ocal 0.60 - 0.69 Posit hayde >0.69 Not Available [facility] ([facility]) [address] [facility], [place], [address], 07/05/2018 09:23:04 07/04/19 19 07/05/2018 cytom egalo virus (cmv) igg+i gm Ab, serum cytomegalovi yung (CMV) Ab, IgM <30.0 AU/mL 0.0-29 .9 Negat hayde <30.0 Equiv ocal 30.0 - 34.9 Posit hayde >34.9 A posit hayde resul t is gener ally indic ative of acute infec tion, react ivati on or persi stent IgM produ ction . Not Available [facility] ([facility]) [address] [facility], [place], [address], 07/05/2018 09:23:04 07/04/1907/05/2018 RPR (rapi d plasm a reagi n), serum RPR Non Reacti ve non reacti ve Not Available [facility] ([facility]) [address] [facility], [place], [address], 07/05/2018 09:23:05 07/04/1907/05/2018 heter ophil e Ab, quali tativ e latex agglu tinat ion, serum mono qual w/rflx qn Negati ve negati ve The sensi tivit y of Heter ophil e antib srinivasan testi ng is 80-90 %. Epste in [place] IgM testi ng offer s highe r sensi tivit y. Not Available [facility] ([facility]) [address] [facility], [place], [address], 07/05/2018 09:23:06 08/30/1908/30/2018 CBC w/ auto diff WBC 7.4 x10e3 /uL 3.4-10 .8 Not Available [facility] ([facility]) [address] [place], [address], 08/30/2018 07:11:59 08/30/19 19 08/30/2018 CBC w/ auto diff RBC 4.51 x10e6 /uL 3.77-5 .28 Not Available [facility] ([facility]) [address] [place], [address], 08/30/2018 07:11:59 08/30/19 19 08/30/2018 CBC w/ auto diff hemoglobin 11.0 g/dL 11.1-1 5.9 below low normal Not Available [facility] ([facility]) [address] [place], [address], 08/30/2018 07:11:59 08/30/1908/30/2018 CBC w/ auto diff hematocrit 34.2 % 34.0-4 6.6 Not Available [facility] ([facility]) [address] [place], [address], 08/30/2018 07:11:59 08/30/19 19 08/30/2018 CBC w/ auto diff MCV 76 fL 79-97 below low normal Not Available [facility] ([facility]) [address] [place], [address], 08/30/2018 07:11:59 08/30/19 19 08/30/2018 CBC w/ auto diff MCH 24.4 pg 26.6-3 3.0 below low normal Not Available [facility] ([facility]) [address] [place], [address], 08/30/2018 07:11:59 08/30/1908/30/2018 CBC w/ auto diff MCHC 32.2 g/dL 31.5-3 5.7 Not Available [facility] ([facility]) [address] [place], [address], 08/30/2018 07:11:59 08/30/19 19 08/30/2018 CBC w/ auto diff RDW 15.6 % 12.3-1 5.4 above high normal Not Available [facility] ([facility]) [address] [facility], [place], [address], 08/30/2018 07:11:59 08/30/19 19 08/30/2018 CBC w/ auto diff platelets 389 x10e3 /uL 150-37 9 above high normal Not Available [facility] ([facility]) [address] [facility], [place], [address], 08/30/2018 07:11:59 08/30/19 19 08/30/2018 CBC w/ auto diff neutrophils 59 % not estab. Not Available [facility] ([facility]) [address] [facility], [place], [address], 08/30/2018 07:11:59 08/30/19 19 08/30/2018 CBC w/ auto diff lymphs 31 % not estab. Not Available [facility] ([facility]) [address] [facility], [place], [address], 08/30/2018 07:11:59 08/30/19 19 08/30/2018 CBC w/ auto diff monocytes 8 % not estab. Not Available [facility] ([facility]) [address] [facility], [place], [address], 08/30/2018 07:11:59 08/30/19 19 08/30/2018 CBC w/ auto diff eos 1 % not estab. Not Available [facility] ([facility]) [address] [facility], [place], [address], 08/30/2018 07:11:59 08/30/1908/30/2018 CBC w/ auto diff basos 1 % not estab. Not Available [facility] ([facility]) [address] [facility], [place], [address], 08/30/2018 07:11:59 08/30/1908/30/2018 CBC w/ auto diff immature cells EYE TECHNICIAN Not Available [facility] ([facility]) [address] [facility], [place], [address], 08/30/2018 07:11:59 08/30/19 19 08/30/2018 CBC w/ auto diff neutrophils (absolute) 4.4 x10e3 /uL 1.4-7. 0 Not Available [facility] ([facility]) [address] [place], [address], 08/30/2018 07:11:59 08/30/1908/30/2018 CBC w/ auto diff lymphs (absolute) 2.3 x10e3 /uL 0.7-3. 1 Not Available [facility] ([facility]) [address] [place], [address], 08/30/2018 07:11:59 08/30/1908/30/2018 CBC w/ auto diff monocytes(ab solute) 0.6 x10e3 /uL 0.1-0. 9 Not Available [facility] ([facility]) [address] [place], [address], 08/30/2018 07:11:59 08/30/1908/30/2018 CBC w/ auto diff eos (absolute) 0.1 x10e3 /uL 0.0-0. 4 Not Available [facility] ([facility]) [address] [place], [address], 08/30/2018 07:11:59 08/30/1908/30/2018 CBC w/ auto diff baso (absolute) 0.0 x10e3 /uL 0.0-0. 2 Not Available [facility] ([facility]) [address] [place], [address], 08/30/2018 07:11:59 08/30/1908/30/2018 CBC w/ auto diff immature granulocytes 0 % not estab. Not Available [facility] ([facility]) [address] [place], [address], 08/30/2018 07:11:59 08/30/1908/30/2018 CBC w/ auto diff immature grans (abs) 0.0 x10e3 /uL 0.0-0. 1 Not Available [facility] ([facility]) [address] [facility], [place], [address], 08/30/2018 07:11:59 08/30/1908/30/2018 CBC w/ auto diff NRBC EYE TECHNICIAN Not Available [facility] ([facility]) [address] [facility], [place], [address], 08/30/2018 07:11:59 08/30/1908/30/2018 CBC w/ auto diff hematology comments: EYE TECHNICIAN Not Available [facility] ([facility]) [address] [facility], [place], [address], 08/30/2018 07:11:59 08/30/1908/30/2018 hsv (1+2) igg Ab, [...] willy to HSV-1 . Not Available [facility] ([facility] [address] [facility], [place], [address], 08/30/2018 07:12:00 08/30/1908/30/2018 hsv (1+2) igg Ab, [...] . Not Available [facility] ([facility]) [address] [facility], [place], [address], 08/30/2018 07:12:00 08/30/19 19 08/30/2018 RPR (rapi d plasm a reagi n), serum RPR Non Reacti ve non reacti ve Not Available [facility] ([facility]) [address] [facility], [place], [address], 08/30/2018 07:12:00 08/30/1908/30/2018 HIV 1+2 AB + HIV 1 p24 Ag, quali tativ e immun oassa y, serum HIV screen 4TH generation wrfx Non Reacti ve non reacti ve Not Available [facility] ([facility]) [address] [facility], [place], [address], 08/30/2018 07:12:01 08/30/19 19 08/30/2018 hepat itis C Ab, signa l-to- cutof f, serum or plasm a HCV Ab <0.1 s/co_ ratio 0.0-0. 9 Not Available [facility] ([facility]) [address] [facility], [place], [address], 08/30/2018 07:12:01 08/30/1908/30/2018 hepat itis C Ab, signa l-to- cutof f, serum or plasm a comment: Commen t Non react hayde HCV antib srinivasan scree n is consi stent with no HCV infec tion, unles s recen t infec tion is suspe cted or other evide nce exist s to indic ate HCV infec tion. Not Available [facility] ([facility]) [address] [facility], [place], [address], 08/30/2018 07:12:01 08/30/1908/30/2018 HBsAg (hepa titis B surfa ce Ag), EIA, serum HBsAg screen Negati ve negati ve Not Available [facility] ([facility]) [address] [facility], [place], [address], 08/30/2018 07:12:02 02/14/2002/14/2019 CBC w/ auto diff WBC 7.5 x10e3 /uL 3.4-10 .8 Not Available [facility] ([facility]) [address] [facility], [place], [address], 02/14/2019 06:40:13 02/14/2002/14/2019 CBC w/ auto diff RBC 4.34 x10e6 /uL 3.77-5 .28 Not Available [facility] ([facility]) [address] [facility], [place], [address], 02/14/2019 06:40:13 02/14/2002/14/2019 CBC w/ auto diff hemoglobin 11.1 g/dL 11.1-1 5.9 Not Available [facility] ([facility]) [address] [facility], [place], [address], 02/14/2019 06:40:13 02/14/2002/14/2019 CBC w/ auto diff hematocrit 34.2 % 34.0-4 6.6 Not Available [facility] ([facility]) [address] [facility], [place], [address], 02/14/2019 06:40:13 02/14/2002/14/2019 CBC w/ auto diff MCV 79 fL 79-97 Not Available [facility] ([facility]) [address] [facility], [place], [address], 02/14/2019 06:40:13 02/14/2002/14/2019 CBC w/ auto diff MCH 25.6 pg 26.6-3 3.0 below low normal Not Available [facility] ([facility]) [address] [facility], [place], [address], 02/14/2019 06:40:13 02/14/2002/14/2019 CBC w/ auto diff MCHC 32.5 g/dL 31.5-3 5.7 Not Available [facility] ([facility]) [address] [facility], [place], [address], 02/14/2019 06:40:13 02/14/2002/14/2019 CBC w/ auto diff RDW 15.0 % 12.3-1 5.4 Not Available [facility] ([facility]) [address] [facility], [place], [address], 02/14/2019 06:40:13 02/14/2002/14/2019 CBC w/ auto diff platelets 372 x10e3 /uL 150-45 0 Not Available [facility] ([facility]) [address] [facility], [place], [address], 02/14/2019 06:40:13 02/14/2002/14/2019 CBC w/ auto diff neutrophils 61 % not estab. Not Available [facility] ([facility]) [address] [facility], [place], [address], 02/14/2019 06:40:13 02/14/2002/14/2019 CBC w/ auto diff lymphs 28 % not estab. Not Available [facility] ([facility]) [address] [facility], [place], [address], 02/14/2019 06:40:13 02/14/2002/14/2019 CBC w/ auto diff monocytes 8 % not estab. Not Available [facility] ([facility]) [address] [facility], [place], [address], 02/14/2019 06:40:13 02/14/2002/14/2019 CBC w/ auto diff eos 2 % not estab. Not Available [facility] ([facility]) [address] [facility], [place], [address], 02/14/2019 06:40:13 02/14/2002/14/2019 CBC w/ auto diff basos 1 % not estab. Not Available [facility] ([facility]) [address] [facility], [place], [address], 02/14/2019 06:40:13 02/14/2002/14/2019 CBC w/ auto diff immature cells EYE TECHNICIAN Not Available [facility] ([facility]) [address], [place], [address], 02/14/2019 06:40:13 02/14/2002/14/2019 CBC w/ auto diff neutrophils (absolute) 4.7 x10e3 /uL 1.4-7. 0 Not Available [facility] ([facility]) [address], [place], [address], 02/14/2019 06:40:13 02/14/2002/14/2019 CBC w/ auto diff lymphs (absolute) 2.1 x10e3 /uL 0.7-3. 1 Not Available [facility] ([facility]) [address] [facility], [place], [address], 02/14/2019 06:40:13 02/14/2002/14/2019 CBC w/ auto diff monocytes(ab solute) 0.6 x10e3 /uL 0.1-0. 9 Not Available [facility] ([facility]) [address] [facility], [place], [address], 02/14/2019 06:40:13 02/14/2002/14/2019 CBC w/ auto diff eos (absolute) 0.1 x10e3 /uL 0.0-0. 4 Not Available [facility] ([facility]) [address] [place], [address], 02/14/2019 06:40:13 02/14/2002/14/2019 CBC w/ auto diff baso (absolute) 0.0 x10e3 /uL 0.0-0. 2 Not Available [facility] ([facility]) [address] [facility], [place], [address], 02/14/2019 06:40:13 02/14/2002/14/2019 CBC w/ auto diff immature granulocytes 0 % not estab. Not Available [facility] ([facility]) [address] [facility], [place], [address], 02/14/2019 06:40:13 02/14/2002/14/2019 CBC w/ auto diff immature grans (abs) 0.0 x10e3 /uL 0.0-0. 1 Not Available [facility] ([facility]) [address] [place] [address], [place], [address], 02/14/2019 06:40:13 02/14/2002/14/2019 CBC w/ auto diff NRBC EYE TECHNICIAN Not Available [facility] ([facility]) [address] [place] [address], [place], [address], 02/14/2019 06:40:13 02/14/2002/14/2019 CBC w/ auto diff hematology comments: EYE TECHNICIAN Not Available [facility] ([facility]) [address] [facility], [place], [address], 02/14/2019 06:40:13 02/14/2002/14/2019 iron + total iron- leta ng capac ity (TIBC ), serum iron bind.cap.(TI BC) 353 ug/dL 250-45 0 Not Available [facility] ([facility]) [address] [place], [address], 02/14/2019 06:40:14 02/14/2002/14/2019 iron + total iron- leta ng capac ity (TIBC ), serum UIBC 336 ug/dL 131-42 5 Not Available [facility] ([facility]) [address] [place] [address], [address], 02/14/2019 06:40:14 02/14/2002/14/2019 iron + total iron- leta ng capac ity (TIBC ), serum iron 17 ug/dL 27-159 below low normal Not Available [facility] ([facility]) [address] [facility], [place], [address], 02/14/2019 06:40:14 02/14/2002/14/2019 iron + total iron- leta ng capac ity (TIBC ), serum iron saturation 5 % 15-55 alert low Not Available [facility] ([facility]) [address], [place], [address], 02/14/2019 06:40:14 02/14/2002/14/2019 cristina tin, serum or plasm a ferritin, serum 7 NG/mL 15-150 below low normal Not Available [facility] ([facility]) [address], [place], [address], 02/14/2019 06:40:14 07/04/19 19 07/04/2018 XR, chest No observ ation record ed. [email or web address] [address] [place], [address], 07/06/2018 16:35:07 08/16/19 19 08/09/2018 CT, neck, soft tissu e, w/ contr ast No observ ation record ed. [address] [place], [address], 11/27/2018 00:09:00 08/17/19 19 08/16/2018 CT, sinus es, w/o contr ast No observ ation record ed. [address] [place], [address], 08/16/2018 13:21:28 Result Notes None recorded. Problems Name Problem SNOMED Code Status Onset Date Resolution Date Notes Provider Name and Address Organization Details Recorded Time Infectiv e vaginiti s 576374018 Active Radha moreno [place] Jeremy [facility] 6 11:25:47 Infectiv e vaginiti s 643815551 Completed BRENDEN Mar [place] - [facility] 5 09:18:25 Maternal care for diminish ed movement s [place] [facility] 6 11:25:47 Maternal care for diminish ed movement s Completed Shahrzad Barrera [place], [place] [facility] 5 09:18:25 Breastfe eding painful 743628564 [place] [facility] 6 11:25:47 Pain in pelvis 35816196 Active [place] [facility] 6 11:25:47 Vaginal discharg e 017571360 Active white Radha Garcia [place] [facility] 6 11:25:47 Herpes simplex type 1 infectio n 748968233 Active Valtrex at 36 weeks Radha [place] [facility] 6 11:25:47 Disorder of thyroid gland 22918427 Completed 201811/26/2018 [place] [facility] 9 00:12:22 Cervical lymphade nopathy 057882401 Active 2018 [place] [facility] 9 11:15:19 Upper respirat ory infectio n 98546577 Completed 201811/13/2018 [place] [facility] 9 11:05:53 Mean corpuscu lar volume below referenc e range 541487824 Active 2018 [place] [facility] 9 12:49:50 Acute sinusiti s 95350660 Completed 201811/13/2018 [place] [facility] 9 11:05:49 History of Helicoba cter pylori infectio n 97549858999 532485 Active 2018 GI [place] [facility] 9 00:05:39 Chronic gastriti s 0064176 Active 2018 EGD - H pylori, [place] - [facility] 9 00:06:03 Hemorrho ids 82350445 Active 2018 Gen sx planning for hemorrho idectomy Lucero moreno, [facility] 9 00:06:27 Dizzines s 224860812 Active 2018 Lucero moreno, [facility] 9 11:29:10 Problem Notes None recorded. Procedures Surgical History Date Name Laterality Status Provider Name and Address Organization Details Recorded Time 05/08/19 16 Cholecystectomy completed Radhaluz Garcia [facility] 11/03/2015 11:25:48 01/15/20 15 IUD Insertion completed Ricardo Box [facility] 01/14/2015 12:23:57 04/18/20 12 Date of Last Pap Smear completed Mily Parsons MA [facility] 05/06/2014 16:14:24 05/08/19 10 Appendectomy completed Maida Do MA [facility] 06/17/2014 11:12:04 Imaging Results None recorded. [...] Updated DateTime 9 162.56 cm 36.7 kg/m2 80810.0 4 g 97.9 [degF] 16 /min 76 /min 124/86 mm[Hg] Jenelle Groves [place] - [facility] 9 12:24:37 Date Recorded Body height Body mass index (BMI) Body weight Systolic And Diastolic Provider Name and Address Organization Details Last Updated DateTime 08/29/2018 162.56 cm 36.2 kg/m2 53259.99 g 130/94 mm[Hg] Shahrzad Barrera MA [facility] 08/29/2018 11:38:34 Date Recorded Body height Body mass index (BMI) Body weight Body temperature Heart rate Respiratory rate Systolic And Diastolic Provider Name and Address Organization Details Last Updated DateTime 9 162.56 cm 36 kg/m2 21699.6 1 g 98.3 [degF] 84 /min 20 /min 132/84 mm[Hg] Jenelle Groves MA [facility] 9 12:15:41 Date Recorded Body height Body mass index (BMI) Body weight Body temperature Heart rate Respiratory rate Systolic And Diastolic Provider Name and Address Organization Details Last Updated DateTime 9 162.56 cm 35.5 kg/m2 42684.9 7 g 98.3 [degF] 70 /min 18 /min 130/80 mm[Hg] Jenelle Groves MA [facility] 9 10:43:45 Date Recorded Body height Body mass index (BMI) Body weight Heart rate Respiratory rate Body temperature Systolic And Diastolic Provider Name and Address Organization Details Last Updated DateTime 9 162.56 cm 36.3 kg/m2 36056.7 9 g 86 /min 20 /min 98.3 [degF] 130/82 mm[Hg] Jenelle Groves MA [facility] 9 11:02:19 Social History Question Answer Notes LastModified by Organizat ion Details LastModified Time Tobacco Smoking Status Never Smoker Maida Do MA [facility] 06/17/2014 11:12:04 Do You Have An [...] Information not available 06/17/2014 Marital Status [place] [id number] Informatio n not available 06/17/2014 What Was [...] SNOMED-CT Code Diagnosis ICD10 Code Diagnosis Note [id number] MD Lalo Weaver ([facility]) [address] [facility] [place] [address] 05/06/2014 15:15:04 05/07/2014 13:43:54 [id number] test positive [id number] Joan Blas [facility] Lalo Husain ([facility]) [address] [facility] [place] [address] 05/22/2014 14:23:39 05/22/2014 15:25:47 [id number] MD Lalo Roldan ([facility]) [address] [facility] [place] [address] 06/17/2014 10:44:30 06/17/2014 15:08:09 [id number] MD Lalo Roldan ([facility]) [address] [facility] [place] [address] 07/15/2014 10:26:03 07/16/2014 09:23:26 Normal [id number] MD Lalo Weaver ([facility] 122) [address] [facility] [place] [address] 08/12/2014 09:35:12 08/12/2014 12:42:08 Normal [id number] MD Lalo Weaver ([facility]) [address] [facility] [place] [address] 08/26/2014 11:56:11 08/27/2014 16:10:13 [id number] MD Lalo Weaver ([facility]) [address] [facility] [place] [address] 09/09/2014 14:42:01 09/09/2014 15:30:17 [id number] MD Lalo Weaver ([facility]) [address] [facility] [place] [address] 09/23/2014 09:49:09 09/23/2014 15:23:49 [id number] MD Lalo Weaver ([facility]) [address] [facility] [place] [address] 10/07/2014 10:59:01 10/07/2014 11:38:07 [id number] MD Lalo Weaver ([facility]) [address] [facility] [place] [address] 10/21/2014 09:36:51 10/23/2014 12:51:20 [id number] MD Lalo Weaver ([facility]) [address] [place] [address] 11/04/2014 09:43:59 11/04/2014 14:45:01 [id number] Normal 65001277 [id number] MD Lalo Weaver ([facility]) [address] [facility] [place] [address] 11/11/2014 11:18:25 11/11/2014 14:54:02 [id number] Maternal c are for diminished movements 944621187 [id number] MD Lalo Weaver ([facility]) [address] [facility] [place] [address] 11/18/2014 10:46:59 11/18/2014 11:58:55 [id number] MD Lalo Weaver ([facility]) [address] [place] [address] 11/24/2014 08:49:50 11/24/2014 10:29:51 [id number] MD Lalo Weaver ([facility]) [address] [place] [address] 12/24/2014 09:05:47 12/24/2014 12:04:57 care [id number] MD Lalo Weaver ([facility]) [address] [facility] [place] [address] 01/14/2015 11:47:27 01/14/2015 12:33:02 care [id number] Uses contraception 04697951 [id number] MD Lalo Weaver Womens ([facility] 122) [address] [facility] [place] [address] 01/19/2015 15:46:51 01/20/2015 09:49:17 IUD check 433377744 [id number] MD Lalo Weaver Womens ([facility] 122) [address] [facility] [place] [address] 02/11/2015 10:38:39 02/18/2015 18:08:10 IUD check 301310706 Z30.431 [id number] Joan Blas [facility] Lalo Womenjavi ([facility] 122) [address] [facility] [place] [address] 11/03/2015 11:00:12 11/03/2015 14:33:42 detection examination 31289535 Z32.00 IUD check 781606629 Z30. 548 [id number] MD Lalo HURTADO 14 IM [address] [facility] [place] [address] 07/04/2018 09:50:09 07/04/2018 16:26:43 Cervical lymphadenopathy 982440511 R59.0 Had a cough since 02/2018, on and off No traveling. No cat. Weight stable overall. Fatigue - despite sleeping. No dental issues. No focal weakness. Sweaty at times. Irregular periods. Neuro intact. ENT will do US +/- biopsy soon. Labs. Check for mono, syphilis, CMV, CXR. RTC 3mo Disorder o f thyroid gland 01931778 E07.9 Had a cough since 02/2018, on and off. Check TSH [id number] MD Lalo HURTADO 14 IM [address] [facility] [place] [address] 07/27/2018 12:09:33 07/31/2018 15:49:44 Cervical lymphadenopathy 250699365 R59.0 Had a cough since 02/2018, on [...] second ENT opinion. Upper resp iratory infection 79448231 J06.9 Strept and Flu negative. Exam unremarkab le. Conservati ve management . [id number] MD Lalo Chambers 14 OB [address] [facility] [place] [address] 08/29/2018 11:23:12 08/30/2018 09:21:21 Gynecologic examination 54718822 Z01.419 CBE and pelvic exam performedP t is on her menstrual cycle, will RTC for pap smear Venereal d isease screening 569887272 Z11.3 Anemia 774555493 D64.9 Hemorrhoids 87652999 K64 .9 [id number] MD Lalo HURTADO 14 IM [address] [facility] [place] [address] 09/05/2018 12:08:49 09/06/2018 10:44:23 Acute sinusitis 15548399 J01.90 4 days, worsening coughs, chest congestion . Exam sinusitis. Already on antihistam althea, PPI, Augmentin with ENT. Try home Flonase, add mucinex. Mean corpu scular volume below reference range 156301732 R71.8 MCV still low with Manifold Operator. Heavy periods on paraguard with rn gyn , still heavy. FeS - taking two tab now. Inc to three - RTC 2mo for ferritin check. [id number] MD Lalo HURTADO 14 IM [address] [facility] [place] [address] 11/13/2018 10:37:12 11/27/2018 11:36:00 Cervical lymphadenopathy 089502517 R59.0 06/2018: Had a cough since 02/2018, [...] done biopsy - result benign. Chronic gastritis 573329 9 K29.50 Followed by GI.Chronic gastritic, H pylori infection - pt was treated. Per pt, her esophagus was also dilated. Hemorrhoids 05693288 K64 .9 Followed by Gen sx - candidate for hemorrhoid ectomy. History of Helicobacter pylori infection 9096765977 [id number] Z86.19 Followed by GI - treated [id number] MD Lalo HURTADO 14 IM [address] [facility] [address] [place] [address] 02/13/2019 10:52:03 02/14/2019 08:35:16 Dizziness 831785591 R42 Thyroid was low with Manifold Operator recently - pt will be rechecked [...] ID Guarantor Name 09/05/2018 1 [place] [employer] [place] [employer] Yessica Young [id number] Yessica Mo 01/08/2019 1 [facility] (MEDICAID HMO) [facility] Yessica Young [id number] Yessica Mo 03/12/2019 2 [place] Yessica Young [id number] Yessica Mo 11/30/2020 1 [place] [id number] Luis Antonio Mo [id number] Yessica Mo 01/19/2015 1 [place] [employer] Yessica Young [id number] Yessica Mo 11/03/2015 1 [facility] (MEDICAID HMO) [id number] Yessica Young [id number] Yessica Mo 06/19/2018 1 *SELF PAY* Me [...] pt wants a second opinion Lucero moreno, [place] - [facility] 07/31/2018 15:32:25 08/29/2018 text/html Annual GYNReport [...] PMDD Ricardo Ramirez MD Attn: Accounting,[address] [place], [address], [facility] [place] [facility] [place] 08/29/2018 [...] Domestic Partner Domestic Partner Phone Father Name Telephone Diaphragm Assembler Status 05/06/20 14 1 A Positive Luis Antonio Mo CLOSED Fetus Data First Name Last Name Admitted to NICU Weight (g) Sex Living Outcome Pediatric Complications Fetus ID Race Codes Race Delivery Type CHASITY ESCAMILLA false 4309.12 4 F Full Term [id number] [id number] White Vaginal Problems Problem Notes Problem Name Start Date End Date Resolution Snomed Code Not e Infective vaginitis 075605605 Maternal care for diminished movements 407144921 Darren Calculation Initial Darren Date Initial Exam [...] Type Weight in lbs Pre/Post Dialysis Refused 203.298314117758 BP Diastolic BP Location Tested BP Systolic BP Type 64 L arm 118 sitting Fetus Heart Rate Present Fetus Movement Comments Flowsheet Date 05/22/2014 Mckinney Score Blood Edema Fundus Height Fundus Units Glucose Ketones Leukocytes Nitrite Labor Signs Protein Cervic Dilation Cervic Effacement Cervic Station neg none none negative neg Type Weight in lbs Pre/Post Dialysis Refused 198.464888864938 BP Diastolic BP Location Tested BP Systolic [...] Type Weight in lbs Pre/Post Dialysis Refused 164.09096419345 BP Diastolic BP Location Tested BP Systolic [...] Type Weight in lbs Pre/Post Dialysis Refused 201.951791650831 BP Diastolic BP Location Tested BP Systolic [...] Type Weight in lbs Pre/Post Dialysis Refused 203.60778707250 BP Diastolic BP Location Tested BP Systolic BP Type 68 128 Fetus Heart Rate Present A 142 Present Fetus Movement A Yes Comments 28 weeks today Flowsheet Date 08/26/2014 Mckinney Score Blood Edema Fundus Height Fundus Units Glucose Ketones Leukocytes Nitrite Labor Signs Protein Cervic Dilation Cervic Effacement Cervic Station 26 cm none Type Weight in lbs Pre/Post Dialysis Refused 203.47196598715 BP Diastolic BP Location Tested BP Systolic BP Type 74 L arm 122 sitting Fetus Heart Rate Present A 146 Present Fetus Movement A Yes Comments Flowsheet Date 09/09/2014 Mckinney Score Blood Edema Fundus Height Fundus Units Glucose Ketones Leukocytes Nitrite Labor Signs Protein Cervic Dilation Cervic Effacement Cervic Station 30 cm none Type Weight in lbs Pre/Post Dialysis Refused 206.241625288838 BP Diastolic BP Location Tested BP Systolic BP Type 60 L arm 120 sitting Fetus Heart Rate Present A 154 Present Fetus Movement A Yes Comments Flowsheet Date 09/23/2014 Mckinney Score Blood Edema Fundus Height Fundus Units Glucose Ketones Leukocytes Nitrite Labor Signs Protein Cervic Dilation Cervic Effacement Cervic Station 32 cm none Type Weight in lbs Pre/Post Dialysis Refused 205.997499897351 BP Diastolic BP Location Tested BP Systolic BP Type 68 110 Fetus Heart Rate Present A 155 Fetus Movement A Yes Comments Flowsheet Date 10/07/2014 Mckinney Score Blood Edema Fundus Height Fundus Units Glucose Ketones Leukocytes Nitrite Labor Signs Protein Cervic Dilation Cervic Effacement Cervic Station none Type Weight in lbs Pre/Post Dialysis Refused 208.303232600240 BP Diastolic BP Location Tested BP Systolic BP Type 78 110 sitting Fetus Heart Rate Present A 154 Fetus Movement A Yes Comments growth scan ordered Flowsheet Date 10/21/2014 Mckinney Score Blood Edema Fundus Height Fundus Units Glucose Ketones Leukocytes Nitrite Labor Signs Protein Cervic Dilation Cervic Effacement Cervic Station 37 cm none Type Weight in lbs Pre/Post Dialysis Refused 213.699032089018 BP Diastolic BP Location Tested BP Systolic BP Type 72 118 sitting Fetus Heart Rate Present A 140 Present Fetus Movement A Yes Comments gbs today. Flowsheet Date 11/04/2014 Mckinney Score Blood Edema Fundus Height Fundus Units Glucose Ketones Leukocytes Nitrite Labor Signs Protein Cervic Dilation Cervic Effacement Cervic Station 37 cm none Type Weight in lbs Pre/Post Dialysis Refused 216.364727388535 BP Diastolic BP Location Tested BP Systolic [...] Type Weight in lbs Pre/Post Dialysis Refused 217.962865878544 BP Diastolic BP Location Tested BP Systolic [...] Type Weight in lbs Pre/Post Dialysis Refused 221.550666838989 BP Diastolic BP Location Tested BP Systolic [...] Type Weight in lbs Pre/Post Dialysis Refused 223.082999479151 BP Diastolic BP Location Tested BP Systolic [...] At Estimated Date of Delivery false Thalassemia (Burkinan, Surinamese, Mediterranean, Or Background): MCV < 80 false Neural Tube Defect (Meningom yelocele, Spina Bifida, Or Anencephaly) false Congenital Heart Defect false Down Syndrome false Curt-Sachs (eg, Evangelical, Cajun , Solomon Islander-Webster) false Yung Disease false Sickle Cell Disease [...] Domestic Partner Domestic Partner Phone Father Name Telephone Diaphragm Assembler Status 06/17/19 15 1 CLOSED Fetus Data First Name Last Name Admitted to NICU Weight (g) Sex Living Outcome Pediatric Complications Fetus ID Race Codes Race Delivery Type 3515.33 8 F Full Term [id number] Vaginal Darren Calculation Initial Darren Date Initial [...]
--- OUTSIDE RECORDS SUMMARY | 2024-11-22 01:23 | XMS_ITS | Continuity of Care Document ---
Author Organization [facility] Address [address] [place] [place] [address] [place] [address] Phone Care Team Providers Care Senior Sustainability Advisor Name Role Phone Robby Torres MD Unavailable [...] Date Provider Providers Copied on Encounter [facility], [address] [facility] [place], [id number], [place] tel:[phone] [facility] No Information 1 Brian Bustamante. [address], [place], [place], [address] , [place]. tel:[phone] [facility], [address], [place], [place], [address], [place] tel:[phone] [facility] No Information 0 Brian Bustamante. [address], [place], [place], [address] , [place]. tel:[phone] OFFICE/OUTPA TIENT VISIT, [facility], [place], [facility], [address], [place], [place], [address], [place] tel:[phone] [facility] anxiety1 (chief complaint) Generalized Anxiety DisorderHypothyroid ism 0 Brian Bustamante. [address], [place], [place], [address] , [place]. tel:[phone] Referring Provider: Robby Torres [address], [place], [place], [address]. tel:[phone] OFFICE/OUTPA TIENT VISIT, [facility], [place], [facility], [address], [place], [place], [address], [place] tel:[phone] [facility] anxiety1 (chief complaint) Generalized Anxiety DisorderGoiter 0 Brian Bustamante. [address], [place], [place], [address] , [place]. tel:[phone] Referring Provider: Robby Torres [address], [place], [place], [address]. tel:[phone] OFFICE/OUTPA TIENT VISIT, [facility], [place], [facility], [address], [place], [place], [address], [place] tel:[phone] [facility] thyroid nodule1 (chief complaint) anxiety1 (chief complaint) GoiterGeneralized Anxiety Disorder 0 Brian Menendez [address], [place], [place], [address] , [place]. tel:[phone] Referring Provider: Gissel [address], [place], [place], [address]. tel:[phone] OFFICE/OUTPA TIENT VISIT, [facility], [place], [facility], [address], [place], [place], [address], [place] tel:[phone] [facility] anxiety1 (chief complaint) iron1 (chief complaint) thyroid1 (chief complaint) Disorder of iron metabolism, unspecifiedGoiterGe neralized Anxiety Disorder Lonnie-0 0 Brian Bustamante. [address], [place], [place], [address] , [place]. [phone] Referring Provider: Gissel [address], [place], [place], [address]. tel:[phone] OFFICE/OUTPA TIENT VISIT, [facility], [place], [facility], [address], [place], [place], [address], [place] tel:[phone] [facility] ankle pain1 (chief complaint) fatigue1 (chief complaint) thyroid1 (chief complaint) anemia1 (chief complaint) Pain in right ankleFatigueAnemiaG oiter 0 Brian Bustamante. [address], [place], [place], [address] , [place]. tel:[phone] Referring Provider: [address], [place], [place], [address]. tel:[phone] OFFICE/OUTPA TIENT VISIT, [facility], [place], [facility], [address], [place], [place], [address], [place] tel:[phone] [facility] rash1 (chief complaint) Allergic contact dermatitis due to plants, except food Aug- 0 Brian Bustamante. [address], [place], [place], [address] , [place]. [phone] Referring Provider: Gissel [address], [place], [place], [address]. tel:[phone] OFFICE/OUTPA TIENT VISIT, [facility], [place], [facility], [address], [place], [place], [address], tel:[phone] [facility] thyroid1 (chief complaint) ferritin1 (chief complaint) IgA (chief complaint) fatigue1 (chief complaint) GoiterDisorder of iron metabolism, unspecifiedVitamin D deficiency, unspecifiedRaised level of immunoglobulinAnemi aH. pylori as the cause of diseases classified elsewhereFatigue 0 Brian Bustamante. [address] [facility] [place], [place], [address] , . tel:[phone] Referring Provider: Gissel Banks [place], [address]. tel:[phone] PREV VISIT, NEW, AGE 18-39 [facility], [address] [place] [address] [address] [place], [place], [address], tel:[phone] [facility] PHysical (chief complaint) Encntr for general adult medical exam w/o abnormal findings 0 Brian Bustamante. [address], [facility] A, [place], [place], [address] , [place]. tel:[phone] Referring Provider: Robby Torres [address] [place] [address], [id number]. tel:[phone] Family History Family Member Type Diagnosis Age [...] Referral Referred To: Jean Carlos BolañosJoe silva [address] [facility]
[address] [place], [place] [address] Ordered: Referrals: Allopathic & Osteopathic Physicians : [...] any dysphagia ankle pain1 Pt was at [place] and she stepped on gravel [...] or swelling . 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
--- OUTSIDE RECORDS SUMMARY | 2024-11-22 01:24 | XMS_ITS | Continuity of Care Document ---
Author Organization [facility] Address [address] [place] [address] [address] [place] [address] Phone Care Team Providers Care Professor Of Business Name Role Phone Carol OD OD, Georgina [...] Active Procedures Procedure Date OFFICE/OUTPATIENT VISIT, [facility] Comp cont lens eval No Charge Visit N/C Glasses Check Advance Directives Directive Yes / No Effective Date File Name No Information Encounters Encounter Description Practice Location Reason(s) For Visit Diagnoses Date Provider Providers Copied on Encounter [facility], [address] [place] [address] [address], [place], [place], [address], tel:[phone] [facility] [place] No Information 3 Carol OD Georgina. [address] [facility], [address], [place], [place], [address], [place]. tel:[phone] Referring Provider: Georgina Medina OD, [address] [facility] [address], [place], [address] . tel:[phone] OFFICE/OUTPA TIENT VISIT, [facility], [address] [place] [address], [id number], tel:[phone] [facility] [place] blurry vision (chief complaint) dry eye (chief complaint) Krystin's thyroiditisMyo roger, bilateralTear film insufficiency of bilateral lacrimal glandsOther vitreous opacities, bilateralCorne al neovasculariza tion of both eyes 2 Derheimer OD Georgina. [address], [address] [place] [address], [id number], [place]. tel:[phone] Referring Provider: Scooter White, [address], [place], [address]. tel:[phone] [facility], [address] [place] [address], [id number], tel:[phone] [facility] [place] No Information 6 Derheimer OD Georgina. [address], [address] [place] [address], [id number], [place]. tel:[phone] Referring Provider: Georgina eMdina OD, [address], [place], [address] . tel:[phone] [facility], [address] [place] [address], [id number], tel:[phone] [facility] [place] blurry vision (chief complaint) Myopia, bilateral 6 Derheimer OD Georgina. [address], [place], [place], [address], [place]. tel:[phone] Referring Provider: Georgina Medina OD, [address], [place], [address] . tel:[phone] [facility], [address] [place] [address], [id number], tel:[phone] [facility] [place] No Information 1 Beth Cohenl. [address], [place], [place], [address], [place]. tel:[phone] Family History Family Member Type Diagnosis Age [...]
--- NOTE | 2024-11-26 08:38 | PM.OBTRLD ---
OB - Triage/Final Diagnosis Visit Information Date of evaluation: 11/22/24 Reason for evaluation: threatened labor Comments/Additional reasons for admission: I have assessed the risk for this patient, Yessica Mo, and determined that she would benefit from observation care.
== END 2024-11-22 01:23 | disposition home or self-care (01) ==
PROVIDERS: Admitting Provider Obstetrics & Gynecology; Visit Provider Obstetrics & Gynecology
DX: O47.03 False labor before 37 completed weeks of gestation, third trimester (principal); Z3A.36 36 weeks gestation of pregnancy
CPT/HCPCS: G0378; G0379

== ENCOUNTER 2024-11-25 00:07 | Outpatient (CLI) | payer OTHER, SELFPAY ==
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
[2024-11-25 00:25] VITALS: BP 130/84; PULSE 101
--- OUTSIDE RECORDS SUMMARY | 2024-11-25 00:25 | XMS_ITS | Encounter Summary ---
Author Organization [facility] Address [address] [facility] [place] [address] Care Team Providers Care Scheme Technician Name Role Phone Scooter White DO Primary Care Provider Encounter Details Date Type Department Care Team (Late st Contact Info) Description 11/06/2018 Lab Requisition [facility] Care Pathology Lab [address] [place] [address] Cindi Herrera MD [address] [place] [address] Enlarged lymph nodes Social History Tobacco Use Types Packs/Day Years Used Date Smoking Tobacco: Never Smokeless Tobacco: Never Alcohol Use Standard Drinks/Week Comments No 0 (1 standard drink = 0.6 oz pur e alcohol) Comments No Sex and Gender Information Value Date Recorded Sex Assigned at Not on file Legal Sex Female 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 - See interpretation. 9 5:33 PM [facility] at 1733 CDT Flow [...] cytometry specimen is reviewed for quality assurance intern purposes. In summary, the left cervical lymph node specimen shows no evidence of a non-Hodgkin lymphoma. Correlation with additional clinical information and the concurrent biopsy specimen is required. KR 9 5:33 PM [facility] Flow Cytometry Results Differential Result Comment Flow Cell Count /uL [id number] Total Viability % 86.0 Lymphocytes % 97 Dim CD45 Region % 0 Monocytes % 1 Granulocytes % 1 9 5:33 PM [facility] Reason for test Enlarged lymph nodes 785.6 9 5:33 PM [facility] Client Specimen ID # [id number] 9 5:33 PM [facility] Number of markers 16 were performed. A Flow CD3 A Flow CD10 A Flow CD20 A Flow CD23 A Flow CD2 A Flow CD4 A Flow CD1a A Flow CD5 A Flow CD19 A Flow CD34 A Flow CD45 A Flow CD7 A Flow CD8 A Flow CD30 A [place]+CD19+ A Lambda+CD19+ 9 5:33 PM [facility] Disclaimer Test performed at [facility], [address] [place], [place], [address]. *The established laboratory minimum viability is 70%. [...] complexity clinical testing. 9 5:33 PM CDT [facility] Embedded Images 9 5:33 PM CDT [facility] Pathology/Cytolo gy ENTIRE CERVICAL LYMPH NODE / Unknown 11/05/2018 11:02 AM CDT 11/06/2018 2:01 PM CDT Cindi Herrera MD LAB - PATHOLOGY/CYTOLOGY ORDERA BLE Final Result [facility] [address] [facility] [place] [address], [facility] [phone] documented in this encounter Visit Diagnoses Diagnosis Enlarged lymph nodes Enlargement of lymph nodes documented in this encounter Care Teams Scheme Technician Relationship Specialty Start Date End Date Scooter White DO PCP - General 03/16/22 documented as of this encounter
--- OUTSIDE RECORDS SUMMARY | 2024-11-25 00:25 | XMS_ITS | Encounter Summary ---
Author Organization [facility] Address [address] [place] [address] Phone Care Team Providers Care Welding Manager Name Role Phone Manda Singh MD Unavailable [phone] Robby Torres Primary Care Provider [phone] Scooter White DO Primary Care Provider Malik Cates MD Unavailable Ulices Marino MD Unavailable Yon Gutierrez MD Primary Care Provider Georgina Fontenot APRN, [facility] Unavailable [phone] Encounter Details Date Type Department Care Team (Late st Contact Info) Description 04/09/2020 Telephone [facility] [address] [address] [address] Saud Dalton MD [address] [place] [address] Social History Tobacco Use Types Packs/Day [...] COVID-19? 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 Sent out a no show letter. [facility] LABORATORY AIDES TEACHER documented in this encounter Plan of Treatment Not on file documented as of this encounter Visit Diagnoses Not on filedocumented in this encounter Additional Health Concerns Assessment Noted Time PHQ-9 Depression Total Score: 0 02/11/20 20 12:57 PM CDT documented as of this encounter Care Teams Welding Manager Relationship Specialty Start Date End Date Robby Torres [address] [place] [address] PCP - General Family Medicine 02/11/20 03/16/21 Scooter White DO [address] [place] [address] [place] [address] PCP - General Internal Medicine 03/17/21 06/22/23 Yon Gutierrez MD [address] [place] [address] [address] PCP - General Family Medicine 06/23/23 Manda Singh MD Obstetrics & Gynecology 02/11/20 Malik Cates MD [address] [address] Consulting Physician Endocrinology 12/13/21 Ulices Marino MD #[address] [address] Consulting Physician Colon and Rectal Surgery 07/06/22 Georgina Fontenot APRN, STORAGE CONSULTANT [address] [place] [address] Nurse Practitioner Advanced Practice Nurse 09/25/24 documented as of this encounter
--- OUTSIDE RECORDS SUMMARY | 2024-11-25 00:25 | XMS_ITS | Clinical Summary ---
Author Organization [facility] Address [address] [facility], [facility] [address] [place] [address] Phone Care Team Providers Care Warranty Administrator Name Role Phone Manda Singh MD Unavailable [phone] Malik Cates MD Unavailable Ulices Marino MD Unavailable Yon Gutierrez MD Primary Care Provider Georgina Fontenot PIG IRON LOADER, ENVIRONMENTAL SAMPLING TECHNICIAN Unavailable [phone] Allergies Active Allergy Reactions Criticality Noted Date [...] 97.5 kg (215 lb) 04/19/2023 8:07 AM FIELD INSTRUCTOR Height 165.1 cm (5' 5) 04/19/2023 8:07 AM FIELD INSTRUCTOR Body Mass Index 35.78 04/19/2023 8:07 AM FIELD INSTRUCTOR Plan of Treatment Health Maintenance Due Date [...] this topic Medical Devices Implanted Type Area Dialer Device Identifier Shelf Expiration Date Model / Serial / Lot Tube Ventilation 5mm Carey Triune - [id number] Implanted:Qty: 1 on 11/05/2018 by Jordon Deng [facility] IMPLANT Left: Ear [employer] 04/06/2020 510-122 / 510-122 / [id number] Description:Ear tubes came f rom the same package Tube Ventilation 5mm Carey Triune - [id number] Implanted:Qty: 1 on 11/05/2018 by Jordon Deng MD at [facility] IMPLANT Right: Ear [employer] 04/06/2020 510-122 / 510-122 / [id number] Description:Ear tubes came f rom the [place] [address] * Guarantor: [facility] Account Type Relation to Patient Date of Phone Billing Address Institutional Other [address] [place] [address] Care Teams Warranty Administrator Relationship Specialty Start Date End Date Yon Gutierrez MD [address] [address] PCP - General Family Medicine 06/23/23 Manda Singh MD Obstetrics & Gynecology 02/11/20 Malik Cates MD #[address] [id number] Consulting Physician Endocrinology 12/13/21 Ulices Marino MD #[address] [address] Consulting Physician Colon and Rectal Surgery 07/06/22 Georgina Fontenot, PIG IRON LOADER, ENVIRONMENTAL SAMPLING TECHNICIAN [address] [place] [address] Nurse Practitioner Advanced Practice Nurse 09/25/24
--- OUTSIDE RECORDS SUMMARY | 2024-11-25 00:25 | XMS_ITS | Data Portability ---
Author Organization [facility] Address [address] [place] [address] Care Team Providers Care Senior Cognos Developer Name Role Phone [facility] EDUIN HAMMONDS Die Set Up Worker [phone] JILLIAN LAO Primary Care Provider [phone] Assessment Encounter Date Assessment Date Assessment LastModified [...] available OB ROUTINE 2024 02:30P M Peter rByant CNM Not available Not available Not available [...] non-str ess test 2024 025 [email or web address] [address], [address], [place], [address], 11/21/2024 23:22:39 US, obstetr ic, biophys ical profile + non-str ess test [id number], [address], [place], [address], 11/20/2024 15:46:37 US, obstetr ic, biophys ical profile + non-str ess test [facility]24 [facility] [address], [address], [place], [address], 11/20/2024 16:51:34 non-str ess test 2024 025 [email or web address] [address], [address], [place], [address], 11/15/2024 09:25:55 US, obstetr ic, follow- up [address], [address], [address], [place], [address], 11/14/2024 20:41:29 US, obstetr ic, biophys ical profile + non-str ess test [address], [address], [address], [place], [address], 11/14/2024 20:41:29 US, obstetr ic, biophys ical profile + non-str ess test 2024 025 [email or web address] [address], [address], [place], [address], 11/14/2024 20:41:29 US, [facility] ic, follow- up 2024 025 [email or web address] [address], [place], [address], 11/14/2024 20:41:29 Medication Orders None recorde d. Patient TargetsNo targets recorded. Patient InstructionsNo instructions recorded. Reason for Referral None Reported. Results Created Date Observation Date Name Description Value Unit Range Abnormal Flag Note LastModifiedBy Organization Detail LastModifiedTime 11/14/1911/13/2024 CULTU RE: GROUP B STREP SCREE N, REFLE X SUSCE PTIBI LITY result report SEE RESULT S BELOW abnormal Test: Cultu re: Group B Strep , Refle x Susce ptibi lity ([facility] ) Speci men Sourc e: Vagin a/Rec gregoria Speci men Type: Vagin al/Re ctal Speci men Date: 025 1620 Resul t Date: 2024 1418 Resul t Statu s: Final resul t Abnor mal: Yes Resul ting Lab: [facility] [address] [facility] [address] Tel: CULTU RE ----- ----- ----- --- Posit hayde for Strep tococ cus agala ctiae (Grou p B) (Abno rmal) Clind amyci n is presu med to be resis tant based on detec tion of induc ible clind amyci n resis tance (D-t est posit hayde) . Eryth romyc in = resis tant. Cefaz thomas may be used for intra partu m proph ylaxi s in penic illin -vitor rgic women at low risk, and Vanco mycin is recom geeta d for women at high risk for anaph ylaxi s. Susce ptibi lity testi ng is not neces juan antonio for these drugs . Not Available [facility] (Lab) [address], [place], [address], 11/18/2024 15:22:25 10/23/19 25 10/22/2024 US, obste tric, follo w-up No observ ation record ed. [email or web address] [address], [place], [address], 10/22/2024 17:16:15 10/23/19 25 10/22/2024 US, obste tric, follo w-up No observ ation record ed. [email or web address] [address], [place], [address], 10/22/2024 17:16:31 10/23/19 25 10/22/2024 US, obste tric, follo w-up No observ ation record ed. LANA [address] [facility], [place], [address], 10/29/2024 21:52:03 10/27/19 25 10/23/2024 non-s tress test No observ ation record ed. [email or web address] [address], [place], [address], 10/26/2024 08:57:06 10/29/19 25 10/23/2024 non-s tress test No observ ation record ed. [email or web address] [facility], [place], [address], 10/28/2024 11:44:35 10/31/19 25 10/30/2024 US, ayo holley, bioph ysica l profi le + non-s tress test No observ ation record ed. [email or web address] [address], [place], [address], 10/30/2024 13:28:58 10/31/19 25 10/30/2024 US, obste tric, bioph ysica l profi le + non-s tress test No observ ation record ed. [email or web address] [facility] [address], [place], [address], 10/30/2024 13:29:11 10/31/19 25 10/30/2024 US, obste tric, follo w-up No observ ation record ed. [email or web address] [address], [place], [address], 10/31/2024 18:00:31 11/07/19 25 11/06/2024 US, obste tric, bioph ysica l profi le + non-s tress test No observ ation record ed. [email or web address] [address], [place], [address], 11/06/2024 17:48:20 11/07/19 25 11/06/2024 US, ayo tric, bioph ysica l profi le + non-s tress test No observ ation record ed. [email or web address] [facility] [address], [place], [address], 11/06/2024 17:48:32 11/07/19 25 11/06/2024 non-s tress test No observ ation record ed. [email or web address] [facility] [address], [place], [address], 11/06/2024 17:22:40 11/07/19 25 11/06/2024 US, obste tric, bioph ysica l profi le + non-s tress test No observ ation record ed. [email or web address] [address], [place], [address], 11/11/2024 12:03:01 11/10/19 25 11/09/2024 imagi ng/di agnos tic resul t No observ ation record ed. [address], [place], [address], 11/11/2024 17:42:12 11/13/1911/12/2024 non-s tress test No observ ation record ed. [email or web address] [address], [place], [address], 11/19/2024 08:29:48 11/14/1911/13/2024 non-s tress test No observ ation record ed. [email or web address] [facility] [address], [place], [address], 11/14/2024 14:45:58 11/14/1911/13/2024 US, obste tric, follo w-up No observ ation record ed. [email or web address] [facility] [address], [place], [address], 11/13/2024 18:14:47 11/14/19 25 11/13/2024 US, obste tric, bioph ysica l profi le + non-s tress test No observ ation record ed. [email or web address] [facility], [place], [address], 11/13/2024 18:14:56 11/14/1911/13/2024 US, obstmickey tric, bioph ysica l profi le + non-s tress test No observ ation record ed. [email or web address] [facility], [place], [address], 11/13/2024 18:15:06 11/14/1911/13/2024 US, obste tric, follo w-up No observ ation record ed. [email or web address] [address], [place], [address], 11/13/2024 18:15:15 11/14/19 25 11/13/2024 non-s tress test No observ ation record ed. [email or web address] [facility] [address], [place], [address], 11/13/2024 15:40:45 11/14/19 25 11/13/2024 US, obste tric, follo w-up No observ ation record ed. LANA [address], [place], [address], 11/17/2024 13:32:08 11/18/19 25 11/17/2024 non-s tress test No observ ation record ed. [address], [place], [address], 11/23/2024 15:05:43 11/21/19 25 11/20/2024 US, obste tric, bioph ysica l profi le + non-s tress test No observ ation record ed. [email or web address] [facility] [address], [place], [address], 11/20/2024 16:51:23 11/21/19 25 11/20/2024 US, obste tric, bioph ysica l profi le + non-s tress test No observ ation record ed. [email or web address] [facility] [address], [place], [address], 11/20/2024 16:51:34 11/21/19 25 11/20/2024 US, obste tric, bioph ysica l profi le + non-s tress test No observ ation record ed. [email or web address] [address], [place], [address], 11/20/2024 16:50:41 11/22/19 25 11/21/2024 non-s tress test No observ ation record ed. [email or web address] [address] [address], [place], [address], 11/21/2024 17:10:50 11/22/19 25 11/19/2024 US, obste tric, bioph ysica l profi le No observ ation record ed. [address], [place], [address], 11/23/2024 14:28:58 11/22/19 25 11/21/2024 US, obste tric, bioph ysica l profi le No observ ation record ed. [address] [address], [place], [address], 11/23/2024 14:28:31 11/23/19 25 11/21/2024 non-s tress test No observ ation record ed. [address] [address], [place], [address], 11/23/2024 14:27:42 Result Notes None recorded. Problems Name Problem SNOMED Code Status Onset Date Resolution Date Notes Provider Name and Address Organization Details Recorded Time Hypothyr oidism 05222876 Active Eli Bohnenstieh l [facility], [facility] 3 15:14:45 Hypothyr oidism 39999505 Completed Elikristin Chaveznstieh l [facility] 3 15:14:45 Antenata l care: history of infertil ity 224643088 Completed Eli Bohnenstieh l null, [facility] 3 15:14:46 Group B Streptoc occus carrier 4099511227 103 Completed bacteriu berta Eli Bohnenstieh l null, [facility] 3 15:14:45 Maternal obesity complica ting pregnanc y, childbir th and the puerperi um, antepart um 3805990531 07 Completed BMI 39- ante testing at 37w Elikristin Sparksh l null, [facility] 3 15:14:46 Chronic hyperten allison in obstetri c context 2910202 Completed procardi a , baseline labs, ASA Eli alvarado null, [facility] 3 15:14:46 Placenta circumva llata 1095407 Completed Serial growth u/s Eli alvarado null, [facility] 3 15:14:45 Pre-ecla mpsia 652632559 Completed Eli Shettyjoselynluisa alvarado null, [facility] 3 15:14:45 Twin pregnanc y 68831927 Active 38 wk delivery antenata l testing @ 32wks per [facility] Schedule d rpt 08/27 ONLY Tabatha moreno, [facility] 5 12:20:16 Antenata l care: history of infertil ity 863980860 Active Peter Bryant CNM [address], [place], [address], [facility] 5 13:48:37 Past pregnanc y history of pre-ecla mpsia 6020949909 35073 Active bASA x2 Tabatha Panchito null, [facility] 5 17:10:40 Large for gestatio n age fetus 843055607 Active less then 30 sec shoulder dystocia Peter Bryant CNM [address], [place], [address], [place] [facility] 5 13:51:09 Past pregnanc y history of shoulder dystocia 345869608 Active Peter Bryant CNM [address], [place], [address], [facility] 5 13:52:04 Chronic hyperten allison in psychiatric c context 8722970 Active Peter Bryant, NILSON [address], [place], [address], [facility] 5 13:52:55 Palpitat ions 57088681 Active Holter monitor faxed to [facility] nt Cardiolo gy 07/29 Tabatha Green null, [facility] 5 14:05:23 Palpitat ions 51475432 Active Holter monitor faxed to [facility] nt Cardiolo gy 24 Tabatha Green null, [facility] 5 14:05:23 Migraine 07307540 Active magnesiu m, Excedrin tension, sumatrip tatum Tabatha Green null, [facility] 5 17:11:50 Migraine 86320540 Active magnesiu m, Excedrin tension, sumatrip tatum Tabatha Green null, [facility] 5 17:11:50 Finding of general energy 058649979 Completed 201807/28/2020 Fatigue; Recorded Elsewher e: No [facility]: EHR Faro Dealer mark: N Amanda ce ID: [id number] Emmanuel lable Time: 10:45:00 AM Messi Garcia MD [address], [place], [address], [facility] 1 15:00:00 Acute vaginiti s 49492172 Completed 201807/28/2020 Vaginiti s;Record ed Elsewher e: No Locat ion: Chaya arevalo [facility] S ource: EHR Faro Dealer mark: N Amanda ce ID: [id number] Emmanuel lable Time: 10:45:00 AM Messi Garcia MD [address], [place], [address], [facility] 1 15:00:04 Removal of intraute rine device Completed 201807/28/2020 Encounte r for removal of IUD;Earl rded Elsewher e: No Locat ion: Chaya arevalo [facility] S ource: EHR Faro Dealer mark: N Gretelti ce ID: 0001 Emmanuel lable Time: 10:45:00 AM Messi Garcia MD [address], [place], [address], [facility] 1 15:00:08 Pregnanc y 54229433 Completed 202106/09/2022 Kenyetta Solano [facility], [facility] 5 16:03:06 Abnormal cervical Papanico laou smear 993113835 Active 2023 3 lgsil HPV high risk 1 ascus HPV high risk Kenyetta Solano [facility], [facility] 4 11:59:57 Herpes simplex 96364425 Active 2024 Kenyetta Solano [facility], [facility] 5 16:40:53 Human papillom a virus infectio n 733592647 Active 2024 Kenyetta Solano [facility], [facility] 5 16:40:59 Endometr iosis (clinica l) 679070163 Active 2024 Kenyetta Solano [facility], [facility] 5 16:41:22 Pregnanc y 12616813 Active 2024 Kenyetta Solano [facility] 5 16:03:06 Glucose toleranc e test outside referenc e range 474091441 Active 2024 5 checking blood sugars for 2 week instead for doing 3 hour Kenyetta moreno, [facility] 17:53:21 Glucose toleranc e test outside referenc e range 832098368 Active 2024 checking blood sugars for 2 week instead for doing 3 hour Kenyetta moreno [facility] 17:53:21 Gestatio nal diabetes mellitus 50295675 Active 2024 Kenyetta moreno [facility] 11:47:25 Gestatio nal diabetes mellitus 72010069 Active 2024 Kenyetta moreno [facility] 11:47:25 Problem Notes None recorded. Procedures Surgical History Date Name Laterality Status Provider Name and Address Organization Details Recorded Time 024 Laparoscopy completed Kenyettaelif Solano [facility] 05/10/2024 16:42:07 024 Date of Last Pap Smear completed Kenyetta Solano [facility] 08/16/2023 12:00:08 024 procedure on ear completed Kenyettaelif Solano [facility] 08/16/2023 12:01:09 023 Colposcopy completed Peter Bryant CNM [address], [place], [address], [facility] 06/15/2022 16:59:00 023 Colposcopy completed Kenyetta Solano [facility] 06/15/2022 16:38:21 023 Colposcopy completed Kenyetta Solano [facility] 06/15/2022 16:38:49 022 intrauterine artificial insemination completed Kenyettaelif Solano [facility] 06/26/2021 09:20:58 021 intrauterine artificial insemination completed [facility] 06/17/2021 12:15:01 021 intrauterine artificial insemination completed [facility] 06/17/2021 12:14:55 021 intrauterine artificial insemination completed [facility] 06/17/2021 12:14:45 021 intrauterine artificial [...] Name and Address Organization Details Recorded Time 74881 prednison e medicatio n hives Not available Not available 07/03/2024 8658 RxNorm Peter Bryant, DUNIA [address], [place], [address], [facility] 5 09:52:22 Medications Name [...] Pregnyl 10,000 unit intramusc ular solution Inject 33701 units every day by intramus cular route [...] jose antonio Cevallos e: Yes [facility] By: [email or web address] z Encoun ter DateTime [...] VAIL INJECTIO N INTO RIGHT HIP LOT [id number] EXP 12/2021 Not Available Not Available Not [...] Address Organization Details Last Updated DateTime 11/13/2024 161471.03079 g 127/89 mm[Hg] Sun Babcock [facility] 11/13/2024 15:38:06 Date Recorded Body height Body mass index (BMI) Body weight Systolic And Diastolic Provider Name and Address Organization Details Last Updated DateTime 11/20/2024 161.29 cm 42.4 kg/m2 980786.95 g 133/84 mm[Hg] Pretty Werner [facility] 11/20/2024 14:47:38 Social History Question Answer Notes LastModified by Organizat ion Details LastModified Time Tobacco Smoking Status Never Smoker [facility] 06/15/2022 15:31:26 Do You Have An Advance Directive? No Information n ot available 07/28/2020 If You Are , What Was Your Level Of Alcohol Consumption Prior To ? None [email or web address] Information not available 06/15/2022 Are You Blind [...] Type Of Diet Are You Following? REGULAR [email or web address] Information n ot available 08/19/2020 What Is The Highest Grade Or Level Of School You Have Completed Or The Highest Degree You Have Received? [id number] Information not available 07/28/2020 Are There Any Guns Present In Your Home? No Information not available 07/28/2020 What Was The Date Of Your Most Recent Tobacco Screening? 10/23/2024 [email or web address] Information not available 10/23/2024 Have You Ever Been Counseled For Unhealthy Alcohol Use? No [email or web address] Information not available 06/15/2022 Do You Use Protection During Sex? No Information not available 07/28/2020 Do You Use Your Seat Belt Or Car Seat Routinely? Yes Information not available 07/28/2020 Do You Have Smoke And Carbon Monoxide Detectors In Your Home? Yes Information not available 07/28/2020 How Much Tobacco Do You Smoke? No [email or web address] Information not available 12/25/2019 Do You Use Sunscreen Routinely? Yes Information not available 07/28/2020 Have You Used IV Drugs? No Information not available 07/28/2020 Do You Have Difficulty Walking Or Climbing Stairs? No [email or web address] Information not available 06/15/2022 Sex: Unknown Functional Status Question Answer Note LastModified by Organizat ion Details LastModified Time Do you use any illicit or recreational drugs? No Information not available 07/28/2020 Do you or have you ever used any other forms of tobacco or nicotine? No [email or web address] Information not available 06/15/2022 What is your level of alcohol consumption? Occasional [email or web address] Information not available 12/25/2019 Do you or have you ever used smokeless tobacco? Never used smokeless tobacco [email or web address] Information not available 06/15/2022 Are you able to walk? YESWOREST [email or web address] Information not available 08/19/2020 Are you able to care for yourself? 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 No [email or web address] Information not available 06/15/2022 Do you or have you ever used e-cigarettes or vape? Never used electronic cigarettes [email or web address] Information not available 06/15/2022 What is your exercise level? Occasional [email or web address] Information not available 12/25/2019 Mental Status Question Answer Note LastModified by Organization D etails LastModified Time Do you feel stressed (tense, restless, nervous, or anxious, or unable to sleep at night)? [id number] [email or web address] Information not available 08/19/2020 Family History Relationship Description Onset Age of this Age Resolved Age Notes LastModified by Organization Details LastModified Time Maternal Grandmother Disorder of thyroid gland [email or web address] Not available 01/26 16:14:56 Mother Female infertility [email or web address] Not available 08/2024 13:51:15 Mother Disorder of thyroid gland [email or web address] Not available 01/26 16:14:56 Father Malignant tumor of pancreas [email or web address] Not available 2024 13:51:15 Brother Malignant neoplasm of prostate [email or web address] Not available 2024 13:51:15 Paternal Grandmother Malignant tumor of breast [email or web address] Not available 01/26 16:14:56 Paternal Grandmother Malignant neoplasm of lung [email or web address] Not available 01/26 16:14:56 Medical History Condition Response Allergies (Food, seasonal, environmental ) N Other Y Drug/Latex Allergies/Reactions N Breast Cancer N Blood Transfusion N Dermatologic Disorders N [...] SNOMED-CT Code Diagnosis ICD10 Code Diagnosis Note [id number] Peter Bryant [facility] [address] [address] 12/25/2019 10:57:08 12/25/2019 12:38:39 Breast infection 008296622 N61.0 Trying to conceive 02614 9001 Z31.9 [id number] Messi Garcia MD [facility] [address] [address] 06/30/2020 12:07:39 06/30/2020 12:55:49 Pain in pelvis 19059339 R10.2 [id number] Messi Garcia MD [facility] [address] [address] 07/02/2020 12:31:33 07/02/2020 16:54:32 Pain in pelvis 02990116 R10.2 This patient is a 25-year-ol d [...] informed consent process. To check fallopian tubes. [id number] Messi Garcia MD [facility] [address] [address] 07/23/2020 10:07:53 07/23/2020 10:09:56 [id number] MD Rhina Zheng [address] [address] 07/28/2020 13:53:59 07/28/2020 15:27:02 Chest pain 42436661 R07.9 this patient is 25-year-ol d female [...] this patient s visit, including available hand cardiology physician upon arrive, temperatur e check and being asked a series of screening questions. All staff wore face coverings during this encounter, as well as provided additional cleaning and sanitizing of all surfaces, including countertop s, pens, chairs, door handles, light switches, etc, prior to and following the patient s visit. [id number] Messi Garcia MD [facility] [address] [address] 08/04/2020 14:07:07 08/04/2020 14:50:37 Abnormal uterine bleeding 6599639829 9100 N93.9 this patient is a 25-year-ol [...] ovulation [place] [id number] Peter Bryant [facility] [address],[place] [address] 08/19/2020 13:46:09 08/19/2020 15:50:34 Trying to conceive 947001624 Z31.9 [id number] Messi Garcia MD [facility] [address],[place] [address] 09/02/2020 11:05:51 09/02/2020 12:44:09 Female infertility 6652994 N97.9 [id number] Peter Bryant [facility] [address],[place] [address] 09/04/2020 08:09:36 09/04/2020 09:29:50 Artificial insemination 34762976 Z31.83 [id number] Peter Bryant [facility] [address],[place] [address] 09/03/2020 18:20:49 09/03/2020 22:54:04 Trying to conceive 588483792 Z31.9 [id number] Messi Garcia MD [facility] [address],[place] [address] 09/09/2020 17:51:09 09/09/2020 18:07:37 Pain in pelvis 68358253 R10.2 This patient is a 25-year-ol d [...] informed consent process. To check fallopian tubes. [id number] Messi Garcia MD [facility] [address] [address] 09/22/2020 16:45:48 09/22/2020 17:17:04 Pain in pelvis 24245718 R10.2 This patient is a 25-year-ol d [...] informed consent process. To check fallopian tubes. [id number] Messi Garcia MD [facility] [address],[place] [address] 10/01/2020 14:59:50 10/01/2020 15:16:34 Female infertility 7097913 N97.9 82009 Peter Bryant CNM [facility] [address],[place] [address] 10/01/2020 16:21:54 10/01/2020 16:27:38 Trying to conceive 012840334 Z31.9 [id number] Peter Bryant CNM [facility] [address],[facility] [place] [address] 10/02/2020 08:19:49 10/02/2020 09:46:38 Artificial insemination 84676147 Z31.83 [id number] Messi Garcia MD [facility] [address],[facility] [place] [address] 1 10/14/2020 15:52:51 10/14/2020 16:51:20 Pain in pelvis 78376796 R10.2 This patient is a 25-year-ol d [...] informed consent process. To check fallopian tubes. [id number] Peter Bryant CNM [facility] [address] [address] 1 10/21/2020 17:06:20 10/21/2020 17:33:05 Hypothyroidism 80001863 E03.9 check labs, will adjust meds if needed [id number] Messi Garcia MD [facility] [address] [address] 1 11/30/2020 13:48:01 11/30/2020 13:52:51 Pain in pelvis 02824836 R10.2 This patient is a 25-year-ol d [...] informed consent process. To check fallopian tubes. [id number] Messi Garcia MD [facility] [address],[place] [address] 1 12/01/2020 14:00:56 12/01/2020 15:31:30 Pain in pelvis 51567471 R10.2 this patient is a 25-year-ol d [...] face-to-fa ce discussing this very complex topic. [address] [place] [address] [place] [address] 1 01/22/2021 09:15:38 01/22/2021 10:35:42 Female infertility 9048695 N97.9 Gynecologi c examination 56205496 Z01.419 [id number] Messi Garcia MD [facility] [address] [place] [address] 1 02/09/2021 09:19:46 02/09/2021 10:04:48 Female infertility 2130346 N97.9 [id number] Peter Bryant [place] [address] [place] [address] 1 02/09/2021 14:29:50 02/09/2021 16:50:58 Trying to conceive 164380878 Z31.9 [id number] Peter Bryant [facility] [address] [place] [address] 1 02/10/2021 09:41:42 02/10/2021 10:12:15 Female infertility 1388900 N97.9 Artificial insemination 03420223 Z31.83 [id number] Messi Garcia MD [facility] [address] [place] [address] 1 04/28/2021 14:43:43 04/28/2021 15:19:59 Female infertility 9225593 N97.9 [id number] Peter Bryant [facility] [address] [place] [address] 1 04/28/2021 18:59:10 04/29/2021 09:31:07 Trying to conceive 482201122 Z31.9 [id number] Peter ArevaloDwight Bryant, [facility] [address],[place] [address] 1 04/29/2021 09:31:15 04/29/2021 10:19:12 Artificial insemination 16537423 Z31.83 [id number] Nalini Salomon , [facility] [address],[place] [address] 1 05/25/2021 11:53:11 05/25/2021 16:54:31 Reduced libido 9917163 R68.82 Today we discussed trial of Wellbutrin [...] this patient s visit, including available hand cardiology physician upon arrive, temperatur e check and being asked a series of screening questions. All staff wore face coverings during this encounter, as well as provided additional cleaning and sanitizing of all surfaces, including countertop s, pens, chairs, door handles, light switches, etc, prior to and following the patient s visit. [id number] Messi Garcia MD [facility] [address],[place] [address] 1 06/22/2021 14:38:59 06/23/2021 09:16:44 Body mass index 30+ - obesity 066852190 Z68.37 This patient is a 26-year-ol d [...] on the dietitian schedule. Gynecologi c examination 67572089 Z01.419 Abnormal u terine bleeding 1577948812 9100 N93.9 [id number] Messi Garcia MD [facility] [address],[place] [address] 1 06/25/2021 09:04:11 06/25/2021 09:23:27 Female infertility 8773583 N97.9 14905 [facility] [address],[place] [address] 06/25/2021 18:38:25 06/26/2021 09:09:27 Trying to conceive 989667832 Z31.9 [id number] [facility] [address],[place] [address] 1 06/26/2021 09:13:57 07/01/2021 15:54:18 Artificial insemination 69705151 Z31.83 [id number] MD Rhina Zheng [address],[place] [address] 1 07/27/2021 17:11:55 07/27/2021 18:06:16 Uncertain viability of 171669378 O36.80X0 Z3A.01 86114 MD Rhina Zheng [address],[place] [address] 1 08/05/2021 09:17:05 08/05/2021 10:16:25 Abdominal pain in early 957524895 Z33.1 Z3A.01 [id number] Messi Garcia MD [facility] [address],[place] [address] 1 08/18/2021 10:17:54 08/18/2021 11:20:00 [id number] Peter Bryant [facility] [address],[place] [address] 1 08/18/2021 10:18:19 08/19/2021 12:30:57 Amenorrhea 82788345 Z31.89 Z31.83 71032 Pretty Cotton MD [facility] [address],[place] [address] 1 09/10/2021 14:50:18 09/10/2021 15:34:33 screening 267874543 Z36.82 77604 Pretty Cotton MD [facility] [address],[place] [address] 1 09/10/2021 14:50:57 09/13/2021 15:22:01 Routine care 697736771 Z34.91 care: history of infertility 740552874 O09.[address] reptococcus carrier 5604876362 103 Z22.330 Hypothyroidism 33860669 E03.9 Maternal o besity complicating , childbirth and the puerperium, antepartum 1455894755 07 O99.211 [id number] Pretty Cotton MD [facility] [address],[place] [address] 1 09/27/2021 17:43:48 09/28/2021 10:23:00 Chronic hypertension complicating AND/OR reason for care during 89506250 O16.9 [id number] MD Rhina Sanchez [address],[place] [address] 1 10/08/2021 14:49:27 10/08/2021 16:16:40 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 7936652 O16.9 care: history of infertility 437971995 O09.01 Hypothyroidism 88812030 E03.9 [id number] Messi Garcia MD [facility] [address],[place] [address] 1 11/03/2021 16:29:49 11/03/2021 18:37:35 screening 647886139 Z36.3 Z3A.20 [id number] [facility] [address],[place] [address] 1 11/03/2021 16:30:15 11/03/2021 18:37:10 Routine care 686811734 Z34.91 Anxiety 96871127 F41.9 [id number] Messi Garcia MD [facility] [address],[place] [address] 1 12/03/2021 15:10:07 12/03/2021 16:20:49 Hypothyroidism 05221869 E03.9 [id number] Messi Garcia MD [facility] [address],[place] [address] 1 12/03/2021 15:10:54 12/03/2021 17:08:45 Placenta circumvallata 9104990 O43.112 Z36.2 Z3A.24 [id number] MD Rhina Zheng [address],[place] [address] 1 12/29/2021 15:21:10 12/29/2021 16:01:38 Placenta circumvallata 9399949 O43.113 O10.013 O99.213 Z3A.28 [id number] [facility] [address],[place] [address] 1 12/29/2021 15:22:44 12/29/2021 17:01:50 Routine care 847299874 Z34.91 - induced hypertension 48536943 O13.9 [id number] Messi Garcia MD [facility] [address],[place] [address] 1 01/13/2022 13:47:29 01/13/2022 14:39:17 Medical examination for suspected condition 010113085 Z03.79 [id number] Messi Garcia MD [facility] [address],[place] [address] 1 01/13/2022 13:47:50 01/13/2022 15:53:18 Routine care 017134402 Z34.83 [id number] Pretty Cotton MD [facility] [address],[place] [address] 1 01/17/2022 16:24:29 01/17/2022 18:16:59 Threatened premature labor - not delivered 546294968 O47.9 [id number] Pretty Cotton MD [facility] [address],[place] [address] 1 01/17/2022 16:35:15 01/19/2022 15:28:55 Threatened premature labor - not delivered 606923513 O47.9 [id number] Messi Garcia MD [facility] [address],[place] [address] 1 01/26/2022 14:52:57 01/26/2022 15:27:45 Chronic hypertension complicating AND/OR reason for care during 86504043 O16.9 [id number] Messi Garcia MD [facility] [address],[place] [address] 1 01/26/2022 14:54:57 01/26/2022 16:22:26 Placenta circumvallata 6053987 O43.113 Z3A.32 O10.013 [id number] Peter Bryant [facility] [address],[place] [address] 1 01/26/2022 14:55:32 01/26/2022 16:39:21 Routine care 745996925 Z34.91 [id number] Messi Garcia MD [facility] [address],[place] [address] 1 02/02/2022 16:59:59 02/02/2022 17:58:36 Maternal obesity complicating , childbirth and the puerperium, antepartum 9056055045 07 O99.213 [id number] Messi Garcia MD [facility] [address],[place] [address] 1 02/02/2022 17:00:19 02/02/2022 18:17:03 Chronic hypertension complicating AND/OR reason for care during 36241877 O10.013 Z3A.33 [id number] Peter Bryant [facility] [address],[place] [address] 1 02/02/2022 17:00:45 02/02/2022 18:50:24 Routine care 338366694 Z34.91 [id number] Messi Garcia MD [facility] [address],[place] [address] 1 02/09/2022 16:53:15 02/09/2022 17:49:24 Maternal obesity complicating , childbirth and the puerperium, antepartum 0330280907 07 O99.213 [id number] Messi Garcia MD [facility] [address],[place] [address] 1 02/09/2022 16:53:36 02/09/2022 18:15:36 Chronic hypertension complicating AND/OR reason for care during 57480994 O10.013 O99.213 Z3A.34 [id number] Peter Bryant [facility] [address],[place] [address] 1 02/09/2022 16:54:04 02/09/2022 18:25:27 Routine care 663271084 Z34.91 [id number] Messi Garcia MD [facility] [address],[place] [address] 1 02/16/2022 17:00:10 02/16/2022 17:56:48 Chronic hypertension complicating AND/OR reason for care during 23887475 O10.013 O99.213 Z3A.34 [id number] Messi Garcia MD [facility] [address] [address] 1 02/16/2022 17:00:39 02/16/2022 18:07:43 Chronic hypertension complicating AND/OR reason for care during 06327105 O10.013 Z3A.35 O99.213 [id number] Peter Bryant [facility] [address],[place] [address] 1 02/16/2022 17:01:03 02/16/2022 18:20:17 Routine care 924586812 Z34.91 [id number] Messi Garcia MD [facility] [address] [address] 1 02/18/2022 15:23:24 02/18/2022 15:53:12 Reduced movement 242107784 O36.8199 [id number] Peter Bryant [facility] [address],[place] [address] 1 02/23/2022 16:45:10 02/23/2022 18:18:35 Routine care 632754811 Z34.91 Large for gestation age fetus 345846385 O36.63X0 [id number] Messi Garcia MD [facility] [address] [address] 1 02/23/2022 16:42:55 02/23/2022 17:12:22 Chronic hypertension complicating AND/OR reason for care during 37168112 O10.013 Z3A.35 O99.213 [id number] Messi Garcia MD [facility] [address],[place] [address] 1 02/23/2022 16:43:28 02/23/2022 17:56:35 Chronic hypertension complicating AND/OR reason for care during 02944040 O10.013 O99.213 Z3A.36 [id number] Pretty Cotton MD [facility] [address],[place] [address] 1 03/16/2022 14:15:55 03/17/2022 16:13:50 Pain in pelvis 91276726 R10.2 [id number] Messi Garcia MD [facility] [address] [address] 1 03/17/2022 13:34:56 03/17/2022 14:02:57 Pain in pelvis 73104899 R10.2 this patient is a 25-year-ol d [...] face-to-fa ce discussing this very complex topic. [id number] Messi Garcia MD [facility] [address] [address] 1 03/17/2022 13:35:31 03/18/2022 13:49:15 Pain in pelvis 10449253 R10.2 patient is a 27-year-ol d female [...] We spent over 20 minutes face-to-fa ce. 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.8 restart lexapro, to ed if any suicidal thoughts, reviewed se risks and benefits f/u 6 week med check if unavailabl e can do by phone Low grade squamous intraepithelial lesion on cervical Papanicolaou smear 7462102196 9105 R87.612 f/u pending pathology [id number] Peter Bryant [facility] [address],[place] [address] 1 08/16/2023 11:38:58 08/16/2023 13:55:15 Pain in pelvis 81037138 R10.2 also start pelvic floor pT Gynecologi c examination 99972014 Z01.419 [id number] Messi Garcia MD [facility] [address],[place] [address] 1 08/22/2023 11:28:17 08/22/2023 12:06:29 Pain in pelvis 81714131 R10.2 patient is a 27-year-ol d female [...] We spent over 20 minutes face-to-fa ce. [id number] Messi Garcia MD [facility] [address],[place] [address] 1 04/23/2024 09:16:05 04/23/2024 10:09:58 screening 539424976 Z36.87 O30.049 Z3A.01 [id number] Messi Garcia MD [facility] [address],[place] [address] 1 05/10/2024 15:16:46 05/10/2024 16:01:31 [id number] [facility] [address],[place] [address] 1 05/10/2024 15:17:03 05/10/2024 16:51:44 Amenorrhea 41333170 Z31.89 Z31.83 Dichorioni c diamniotic twin 794669319 O30.049 reviewed US plan us at 12 weeksnipt at 10 weeks with labsawait pap until pp visitrevie wed precaution s and educationh x preeclamps ia without severe features last [id number] Messi Garcia MD [facility] [address],[place] [address] 1 05/21/2024 11:09:17 05/21/2024 12:05:12 Threatened miscarriage 94505153 O20.0 O30.041 Z3A.09 [id number] Messi Garcia MD [facility] [address],[place] [address] 1 05/23/2024 17:26:08 05/24/2024 10:31:39 Threatened miscarriage 29847222 O20.0 O30.041 Z3A.09 [id number] Messi Garcia MD [facility] [address],[place] [address] 1 05/23/2024 18:31:17 05/24/2024 10:33:13 Pain in pelvis 00406439 R10.2 this patient is a 29-year-ol d [...] is to contact us if pain worsens. [id number] Messi Garcia MD [facility] [address],[place] [address] 1 05/29/2024 10:21:34 05/29/2024 11:12:31 condition affecting obstetrical care of mother 968885601 O36.8910 Z3A.10 [id number] Messi Garcia MD [facility] [address],[place] [address] 1 06/03/2024 16:41:37 06/04/2024 14:32:45 screening 874123572 Z36.82 Z3A.11 [id number] [facility] [address],[place] [address] 06/05/2024 14:45:02 06/06/2024 16:44:18 Nausea and vomiting 99922030 R11.2 Migraine 48372499 G43.90 9 Routine an tenatal care 355726586 Z34.91 Twin 68347089 O30.009 [id number] Messi Garcia MD [facility] [address],[place] [address] 1 06/12/2024 17:23:11 06/12/2024 18:08:31 Medical examination for suspected condition 952609320 Z03.72 Z3A.12 [id number] Messi Garcia MD [facility] [address],[place] [address] 1 07/01/2024 16:17:41 07/01/2024 17:36:13 Dichorionic diamniotic twin 306894387 O30.042 Z3A.15 [id number] [facility] [address],[place] [address] 1 07/03/2024 09:17:02 07/03/2024 09:55:31 Gestation period, 15 weeks 2160384 Z3A.15 [id number] ALEC WILKINSON MD [facility] [address],[place] [address] 1 07/08/2024 10:41:29 07/08/2024 11:38:56 Pruritic rash 93499751 L28.2 Dichorioni c diamniotic twin 847386780 O30.049 Chronic hy pertension complicating AND/OR reason for care during 35805295 O16.9 Gestation period, 16 weeks 93954426 Z3A.16 [id number] Messi Garcia MD [facility] [address],[place] [address] 1 07/12/2024 10:38:28 07/12/2024 11:50:01 [id number] [facility] [address],[place] [address] 1 07/31/2024 16:35:21 08/01/2024 09:45:58 Gestation period, 19 weeks 86929955 Z3A.19 Dichorioni c diamniotic twin 181315490 O30.049 Gastroesop hageal reflux disease 965425261 K21.9 [id number] [facility] [address],[place] [address] 1 08/09/2024 12:12:22 08/09/2024 14:11:25 Pain in pelvis 76972761 R10.2 start physical therapy [id number] Messi Garcia MD [facility] [address],[place] [address] 1 08/22/2024 12:06:07 08/22/2024 13:36:01 Dichorionic diamniotic twin 108555850 O30.042 O36.8120 Z3A.23 [id number] Peter Bryant CNM [facility] [address],[place] [address] 1 08/28/2024 14:16:16 08/30/2024 10:02:02 [id number] Peter Bryant CNM [facility] [address],[place] [address] 1 08/29/2024 09:57:22 08/30/2024 10:26:31 Gestation period, 24 weeks 006316622 Z3A.24 [id number] Messi Garcia MD [facility] [address] [address] 1 09/18/2024 11:30:12 09/18/2024 12:33:22 Dichorionic diamniotic twin 982254220 O30.042 O99.891 Z3A.26 [id number] Peter Bryant [facility] [address],[place] [address] 1 09/27/2024 14:05:42 09/27/2024 14:47:06 Gestation period, 28 weeks 58163925 Z3A.28 [id number] Messi Garcia MD [facility] [address],[place] [address] 1 10/09/2024 13:51:09 10/09/2024 15:10:27 Dichorionic diamniotic twin 637464598 O30.043 O32.1XX2 Z36.2 Z3A.29 [id number] Peter Bryant [facility] [address],[place] [address] 1 10/09/2024 13:51:24 10/09/2024 16:46:13 Gestation period, 29 weeks 38260744 Z3A.29 [id number] Messi Garcia MD [facility] [address],[place] [address] 1 10/22/2024 11:49:29 10/22/2024 13:06:50 Dichorionic diamniotic twin 791127138 O30.043 O24.410 O13.3 Z3A.31 [id number] Peter Bryant [facility] [address],[place] [address] 1 10/23/2024 14:57:19 10/27/2024 19:34:15 Twin 85552325 O30.009 [id number] Peter Bryant [facility] [address],[place] [address] 1 10/23/2024 14:57:44 10/23/2024 16:42:04 Gestation period, 31 weeks 92370264 Z3A.31 [id number] Messi Garcia MD [facility] [address],[place] [address] 1 10/30/2024 11:49:15 10/30/2024 12:53:32 Dichorionic diamniotic twin 736656422 O30.043 O24.410 O16.3 Z3A.32 [id number] Peter Bryant [facility] [address],[place] [address] 1 10/30/2024 11:49:41 10/30/2024 13:44:54 Gestation period, 32 weeks 6770164 Z3A.32 [id number] Messi Garcia MD [facility] [address] [address] 1 11/06/2024 14:02:15 11/06/2024 15:08:32 Dichorionic diamniotic twin 192021447 O30.043 O24.414 O24.410 [id number] ALEC WILKINSON MD [facility] [address] [address] 1 11/06/2024 14:02:26 11/06/2024 17:33:51 Chronic hypertension complicating AND/OR reason for care during 02199190 O10.919 [id number] Peter Bryant [facility] [address],[place] [address] 1 11/06/2024 14:02:37 11/06/2024 16:26:16 Gestation period, 33 weeks 45194605 Z3A.33 Dichorioni c diamniotic twin 146253184 O30.043 [id number] Messi Garcia MD [facility] [address],[place] [address] 1 11/13/2024 13:58:59 11/13/2024 15:10:18 Dichorionic diamniotic twin 704795550 O30.043 O24.410 O16.3 O99.213 Z3A.34 [id number] [facility] [address],[place] [address] 1 11/13/2024 13:59:12 11/13/2024 15:41:29 Chronic hypertension complicating AND/OR reason for care during 26583565 O10.919 [id number] [facility] [address],[place] [address] 1 11/13/2024 13:59:25 11/13/2024 16:05:11 Gestation period, 34 weeks 70319841 Z3A.34 [id number] Messi Garcia MD [facility] [address],[place] [address] 1 11/20/2024 13:42:52 11/20/2024 14:50:53 Dichorionic diamniotic twin 346508993 O30.043 O24.410 Z3A.35 [id number] [facility] [address] [place] [address] 1 11/20/2024 13:43:10 11/21/2024 12:11:29 Past history of gestational hypertension 221324589 Z87.59 [id number] Peter Bryant [facility] [address],[place] [address] 1 11/20/2024 13:43:30 11/20/2024 16:02:36 Gestation period, 35 weeks 34219628 Z3A.35 Health Concerns Section Related Observation LastModified by Organization Detai ls LastModified Time None Recorded Concern Status LastModified by Organization Details LastModified Time None Recorded Advance Directives Directive N: Payers Insurance Date Sequence Insurance Name Policy Number Policy Steele Covered Member ID Steele Member ID Guarantor Name 05/10/2024 2 [facility] Chjc Xbb [id number] Yessica Mo 05/18/2021 1 [facility] [id number] Luis Antonio Mo [id number] Yessica Mast Corzine 06/15/2022 *SELF PAY* Me kartik Mast Corzine 08/31/2020 2 [facility] Luis Antonio Corzine [id number] Yessica Mast Corzine 08/31/2020 3 [facility] Jospeh Corzine [id number] Yessica Mast Corzine 09/04/2020 2 [facility] Luis Antonio Corzine [id number] Yessica Mast Corzine 09/23/2020 2 [facility] Jospeph Corzine [id number] Yessica Mast Corzine 11/24/2024 1 [facility] [id number] Luis Antonio Rowe Corzine [id number] Yessica Mast Corzine 05/10/2024 3 [facility] [id number] Vxbn FB BC [id number] Yessica Mast Corzine OBGyn Episode Ob Episode Information Episode Created Date Number of Fetuses Patient Bloodtype Patient rh Status Prepregnancy Weight lbs Domestic Partner Domestic Partner Phone Father Name Residential Specialist Status 12/25/19 20 1 CLOSED Fetus Data [...] Domestic Partner Domestic Partner Phone Father Name Residential Specialist Status 12/25/19 20 1 CLOSED Fetus Data [...] Domestic Partner Domestic Partner Phone Father Name Residential Specialist Status 09/11/19 22 1 A Positive 221 CLOSED Fetus Data First Name Last Name Admitted to NICU Weight (g) Sex Living Outcome Pediatric Complications Fetus ID Race Codes Race Delivery Type 4224.07 55 M true Full Term [id number] Vaginal Delivery Problems Problem Notes TSH WNL/A+/Ha1c/CBC WNL Problem Name Start Date End Date Resolution Snomed Code Not e Hypothyroidism 60347733 care: history of infertility 537581667 Group B Streptococcus carrier 9464195322534 bacteriuria Maternal obesity complicating , childbirth and the puerperium, antepartum 792398943025 BMI 39- ante testing at 37w 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 6611599 maia ellsworth , baseline labs, ASA Placenta circumvallata 8193708 Serial growth u/s Pre-eclampsia 706502281 Darren Calculation Initial Darren Date Initial Exam [...] Date Ultra Sound Latest Days Gestation 0 [email or web address] 09/13/2021 03/23/20 22 0 Pre-erick Flowsheet Flowsheet Date 09/10/2021 Mckinney Score Blood Edema Fundus Height Fundus Units Glucose Ketones Leukocytes Nitrite Labor Signs Protein Cervic Dilation Cervic Effacement Cervic Station neg none Type Weight in lbs Pre/Post Dialysis Refused Weight 225.961216995302 BP Diastolic BP Location Tested BP Systolic [...] Weight in lbs Pre/Post Dialysis Refused Weight 226.926424221191 BP Diastolic BP Location Tested BP Systolic [...] Weight in lbs Pre/Post Dialysis Refused Weight 224.265726524389 BP Diastolic BP Location Tested BP Systolic [...] Weight in lbs Pre/Post Dialysis Refused Weight 230.870578477368 BP Diastolic BP Location Tested BP Systolic [...] Weight in lbs Pre/Post Dialysis Refused Weight 234.444832246873 BP Diastolic BP Location Tested BP Systolic [...] Weight in lbs Pre/Post Dialysis Refused Weight 235.093562410486 BP Diastolic BP Location Tested BP Systolic [...] Weight in lbs Pre/Post Dialysis Refused Weight 239.809810774295 BP Diastolic BP Location Tested BP Systolic [...] Weight in lbs Pre/Post Dialysis Refused Weight 240.187897925214 BP Diastolic BP Location Tested BP Systolic [...] Weight in lbs Pre/Post Dialysis Refused Weight 242.134263501985 BP Diastolic BP Location Tested BP Systolic [...] Weight in lbs Pre/Post Dialysis Refused Weight 243.114153890265 BP Diastolic BP Location Tested BP Systolic [...] Weight in lbs Pre/Post Dialysis Refused Weight 242.173051767059 BP Diastolic BP Location Tested BP Systolic [...] Weight in lbs Pre/Post Dialysis Refused Weight 246.027177738828 BP Diastolic BP Location Tested BP Systolic [...] Weight in lbs Pre/Post Dialysis Refused Weight 246.814946127340 BP Diastolic BP Location Tested BP Systolic [...] Weight in lbs Pre/Post Dialysis Refused Weight 211.482364313929 BP Diastolic BP Location Tested BP Systolic [...] Weight in lbs Pre/Post Dialysis Refused Weight 211.344545826184 BP Diastolic BP Location Tested BP Systolic BP Type 86 L arm 126 sitting Fetus Heart Rate Present Fetus Movement Comments Flowsheet Date 04/08/2022 Mckinney Score Blood Edema Fundus Height Fundus Units Glucose Ketones Leukocytes Nitrite Labor Signs Protein Cervic Dilation Cervic Effacement Cervic Station Type Weight in lbs Pre/Post Dialysis Refused Weight 212.72454630243 BP Diastolic BP Location Tested BP Systolic BP Type 84 134 Fetus Heart Rate Present Fetus Movement Comments Flowsheet Date 05/27/2022 Mckinney Score Blood Edema Fundus Height Fundus Units Glucose Ketones Leukocytes Nitrite Labor Signs Protein Cervic Dilation Cervic Effacement Cervic Station Type Weight in lbs Pre/Post Dialysis Refused Weight 221.816266895968 BP Diastolic BP Location Tested BP Systolic [...] Estim ated Date of Delivery false Thalassemia (Welsh, Singaporean, Mediterranean, Or Background): MCV < 80 false Neural Tube Defect (Meningomyelocele, Spina Bifi da, Or Anencephaly) false Congenital Heart Defect false Down Syndrome false Curt-Sachs (eg, Roman Catholic, Cajun, Finnish-Burundian) f alse Yung Disease false Sickle Cell Disease Or Trait () false Hemophilia Or Other Blood Disorders false Muscular Dystrophy false Cystic Fibrosis false [place]'s Chorea false Intellectual Disability/Autism false If Yes, [...] Domestic Partner Domestic Partner Phone Father Name Residential Specialist Status 06/05/19 25 2 A Positive 198 Gabriel Mo OPEN Fetus Data First Name Last Name Admitted to NICU Weight (g) Sex Living Outcome Pediatric Complications Fetus ID Race Codes Race Delivery Type [id number] Problems Problem Notes Anatomy with [facility] - 07/31/24 1 300 [facility] U/S & OV [facility] 08/27/24 US only 1:00PM Problem Name Start Date End Date Resolution Snomed Code Not e care: history of infertility 978878186 Past history of shoulder dystocia 623565202 Large for gestation age fetus 870870271 less then 30 se c shoulder dystocia Past history of pre-eclampsia [id number] bASA x2 Migraine 17964669 magnesium, Excedrin tension, sumatriptan 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 2786839 Palpitations 53178827 Holter monitor faxed to [facility] 07/29 Gestational diabetes mellitus 10/10/2024 98140981 Glucose tolerance test outside reference range 10/01/2024 269680917 10/01/2024 ecking blood sugars for 2 week instead for doing 3 hour Twin 65778473 38 wk deliveryantenatal testing @ 32wks per [...] Weight in lbs Pre/Post Dialysis Refused Weight 207.395269117611 BP Diastolic BP Location Tested BP Systolic [...] disability paperwork. will plan on referral to [facility] for anatomy and history of [...] Type Weight in lbs Pre/Post Dialysis Refused 214.287517828006 BP Diastolic BP Location Tested BP Systolic [...] Weight in lbs Pre/Post Dialysis Refused Weight 216.871378130241 BP Diastolic BP Location Tested BP Systolic [...] No bleeding. Will send for anatomy at [facility]. Will measure for belly band [...] Type Weight in lbs Pre/Post Dialysis Refused 220.101097633525 BP Diastolic BP Location Tested BP Systolic BP Type 92 152 53 114 Fetus Heart Rate Present Fetus Movement A Yes B Yes Comments Patient is having headaches, pain, contractions, swelling, Had elevated heart rate over the weekend and get heart moniter on , 08/08/24. saw [facility] this morning rec 2 bASA, will rpt anatomy in 4 weeks, precautions and education f/u 4 weeks Flowsheet Date 08/09/2024 Mckinney Score Blood Edema Fundus Height Fundus Units Glucose Ketones Leukocytes Nitrite Labor Signs Protein Cervic Dilation Cervic Effacement Cervic Station neg none none neg Type Weight in lbs Pre/Post Dialysis Refused 227.929329509437 BP Diastolic BP Location Tested BP Systolic [...] Weight in lbs Pre/Post Dialysis Refused Weight 229.807382693097 BP Diastolic BP Location Tested BP Systolic BP Type 89 133 Fetus Heart Rate Present Fetus Movement A Yes B Yes Comments Patient is having pressure, contractions and swelling. Flowsheet Date 08/29/2024 Mckinney Score Blood Edema Fundus Height Fundus Units Glucose Ketones Leukocytes Nitrite Labor Signs Protein Cervic Dilation Cervic Effacement Cervic Station Type Weight in lbs Pre/Post Dialysis Refused 232.66379825342 BP Diastolic BP Location Tested BP Systolic [...] Type Weight in lbs Pre/Post Dialysis Refused 236.592358168749 BP Diastolic BP Location Tested BP Systolic [...] Type Weight in lbs Pre/Post Dialysis Refused 234.903542751930 BP Diastolic BP Location Tested BP Systolic BP Type 87 138 Fetus Heart Rate Present Fetus Movement A Yes B Yes Comments Patient is having pain and c ontractions and swelling. 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 for diamond sizer referral to [facility], eduction and precautions f/u [...] Weight in lbs Pre/Post Dialysis Refused Weight 241.002798123508 BP Diastolic BP Location Tested BP Systolic BP Type 82 125 Fetus Heart Rate Present Fetus Movement Comments Flowsheet Date 10/23/2024 Mckinney Score Blood Edema Fundus Height Fundus Units Glucose Ketones Leukocytes Nitrite Labor Signs Protein Cervic Dilation Cervic Effacement Cervic Station neg trace Type Weight in lbs Pre/Post Dialysis Refused 241.64628509804 BP Diastolic BP Location Tested BP Systolic [...] Type Weight in lbs Pre/Post Dialysis Refused 248.878678224039 BP Diastolic BP Location Tested BP Systolic [...] Type Weight in lbs Pre/Post Dialysis Refused 238.334401398652 BP Diastolic BP Location Tested BP Systolic [...] Weight in lbs Pre/Post Dialysis Refused Weight 243.861372556172 BP Diastolic BP Location Tested BP Systolic [...]
--- OUTSIDE RECORDS SUMMARY | 2024-11-25 00:25 | XMS_ITS | Clinical Summary ---
Author Organization [facility] [employer] Address [address] [place] [address] Care Team Providers Care Windrower Operator Name Role Phone Scooter White DO Primary Care Provider [phone] Source Comments [facility],non-owned Affiliates and Associated Physician Practices is amultiple site organization consisting of ambulatory clinics and hospital sitesin [place], [place], [place] and [place]. This disclosure is being madepursuant to the Care Everywhere program and may not contain all information available regarding this patient. Last updated 18.[facility] [employer] Allergies Active Allergy Reactions Criticality Noted Date [...] Type Department Care Team Description 10/28/2024 Telephone [facility] [address] [place], [place] [id number] Silvina León Appointment 09/24/2024 1:00 PM CDT - 09/24/2024 11:59 PM CDT Hospital Encounter [facility] [address] [place] [address] Derick Mcclendon MD MARKET DEVELOPMENT DIRECTOR Discharge Disposition: Home or Self Care 08/27/2024 12:58 PM CDT - 08/27/2024 11:59 PM CDT Hospital Encounter [facility] [address] [place] [address] Christiano Tristan MD Discharge Disposition: Home or [...] on file Legal Sex Female 1:08 PM UROLOGIST PHYSICIAN Gender Identity Not on file Sexual Orientation [...] (HCC) Dichorionic diamniotic twin in second trimester ([facility]) 28 weeks gestation of ([facility]) Supervision of high risk in second trimester ([facility]) Obesity affecting in second trimester, unspecified obesity type ([facility]) Encounter for follow-up ultrasound of anatomy ([facility]) Encounter for ultrasound to assess growth ([facility]) SONOGRAM - COMPLETE Routine 08/27/2024 1 2:52 PM CDT Dichorionic diamniotic twin in second trimester ([facility]) History of pre-eclampsia in prior , currently ([facility]) 24 weeks gestation of ([facility]) Supervision of high risk in second trimester ([facility]) from Last 3 Months Results * SONOGRAM - COMPLETE (09/24/2024 1:09 PM CDT) Only the most recent of2 resultswithin the time period is included. Linked Results Indication ======== DA/DC Twins Incomplete Anatomy Screen x2 History of Preeclampsia, Obesity in , Class II History ====== OB History 4. Para 3 [id number] 1. live 2011. Gest. age 39 w [...] 2 lb 14 oz EFW by Hadlock ([id number]-FL) EFW discordance 4.6 % appropriate Fetus B: Biometry BPD 69.2 mm 27w 6d 42% Hadlock HC 260.6 mm 28w 2d 39% Hadlock AC 252.3 mm 29w 3d 88% Hadlock Femur 51.1 mm 27w 3d 25% Hadlock Humerus 48.6 mm 28w 4d 68% Robinson HC / AC 1.03 Weight Calculation: EFW 1,242 g 69% Hadlock EFW (lb,oz) 2 lb 12 oz EFW by Hadlock ([id number]-FL) EFW discordance 4.6 % appropriate Fetus A: [...] Thorax RVOT view. LVOT view. 3-vessel view. 2-ympbeo-ahlglia view. Situs. Bicaval view. Ductal arch view. [...] view. RVOT view. LVOT view. 3-vessel view. 7-xagufy-ihhnjjw view. Situs. Aortic arch view. Bicaval view. [...] and begin weekly testing Coding ====== Procedures 10587: US Preg Uterus Follow Up. x2 erican Efficient PACS Anatomical Region Laterality Modality Other 09/24/2024 1:09 PM CDT R Bert Garcia MD [facility] ORDERABLES Edited Result - Final from Last 3 Months Insurance HEALTH CARE Care Teams Windrower Operator Relationship Specialty Start Date End Date Scooter White DO PCP - General 03/16/22
--- OUTSIDE RECORDS SUMMARY | 2024-11-25 00:25 | XMS_ITS | Encounter Summary ---
Author Organization [facility] Address [address] [place] [address] Phone Care Team Providers Care Electric Mule Operator Name Role Phone Manda Singh MD Unavailable [phone] Scooter White DO Primary Care Provider Malik Cates MD Unavailable Ulices Marino MD Unavailable Yon Gutierrez MD Primary Care Provider Georgina Fontenot APRN, REFRIGERATED NATIONAL TRUCK DRIVER Unavailable [phone] Encounter Details Date Type Department Care Team (Late st Contact Info) Description 07/26/2021 Lab Requisition [facility] [address] [place] [address] Edita Garza, TRUNG, WATER SOFTENER INSTALLER [address] [place] [address] Encounter for pre-employment examination Social [...] AI 07/26/2021 10:00 PM CDT [facility] Blood No Phlebotomy Charged / Unknown 07/26/2021 9:00 AM CDT 07/26/2021 2:15 PM CDT Narrative [facility] - 07/26/2021 10:00 PM CDT <= 0.8 Negative. No detectable VZV IgG antibody. 0.9 - 1.0 Equivocal >=1.1 Positive Antibody testing was performed by multiplex flow immunoassay on the BioPlex platform. Edita L Behrends CLIENT SUCCESS SPECIALIST, WATER SOFTENER INSTALLER IMMUNOLOGY ORDERABL ES Final Result Performing Organization Address [facility] de Phone Number [facility] [address] [place] [address], [place] * (ABNORMAL) RUBEOLA (MEASLES) IGG (07/26/2021 9:00 AM CDT) MEASLES AB IGG 0.7(L) >=1.1 AI 07/26/2021 10:00 PM CDT [facility] Blood No Phlebotomy Charged / Unknown 07/26/2021 9:00 AM CDT 07/26/2021 2:15 PM CDT Narrative [facility] - 07/26/2021 10:00 PM CDT <= 0.8 Negative. No detectable Measles IgG antibody. 0.9 - 1.0 Equivocal >=1.1 Positive Antibody testing was performed by multiplex flow immunoassay on the BioPlex platform. Edita L Behrends CLIENT SUCCESS SPECIALIST, WATER SOFTENER INSTALLER IMMUNOLOGY ORDERABL ES Final Result Performing Organization Address [facility] de Phone Number [facility] [address] [place] [address], [place] * RUBELLA IMMUNITY IGG (07/26/2021 9:00 AM CDT) [facility]A [facility]UNITY Immune Immune, Invalid 07/26/2021 10:00 PM CDT [facility] Blood No Phlebotomy Charged / Unknown 07/26/2021 9:00 AM CDT 07/26/2021 2:15 PM CDT Narrative [facility] - 07/26/2021 10:00 PM CDT Antibody testing was performed by multiplex flow immunoassay on the BioPlex platform. us Edita Garza CLIENT SUCCESS SPECIALIST, WATER SOFTENER INSTALLER CHEMISTRY ORDERABLE S Final Result Performing Organization Address [facility] Co de Phone Number [facility] [address] [place] [address], [place] * MUMPS IGG (07/26/2021 9:00 AM CDT) Mumps Ab IgG 1.2 >=1.1 AI 07/26/2021 10:00 PM CDT [facility] Blood No Phlebotomy Charged / Unknown 07/26/2021 9:00 AM CDT 07/26/2021 2:15 PM CDT Narrative [facility] - 07/26/2021 10:00 PM CDT <= 0.8 Negative. No detectable Mumps IgG antibody. 0.9 - 1.0 Equivocal >=1.1 Positive Antibody testing was performed by multiplex flow immunoassay on the BioPlex platform. us Edita Garza CLIENT SUCCESS SPECIALIST, WATER SOFTENER INSTALLER IMMUNOLOGY ORDERABL ES Final Result Performing Organization Address [facility] Co de Phone Number [facility] [address] [place] [address], [place] * QUANTIFERON-TB GOLD PLUS (07/26/2021 9:00 AM CDT) NIL CONTROL 0.04 <8.01 IU/mL 07/28/2021 1:01 PM CDT [facility] TB ANTIGEN 1 0.00 <0.35 IU/mL 07/28/2021 1:01 PM CDT [facility] TB ANTIGEN 2 0.00 <0.35 IU/mL 07/28/2021 1:01 PM CDT [facility] MITOGEN CONTROL 9.64 >0.49 IU/mL 07/29/19 1:01 PM CDT [facility] INTEPRETATION TB NEGATIVE NEGATIVE, NEGATIVE (TB antigen response less than 25% of internal negative control value) 07/28/2021 1:01 PM CDT [facility] Comment:No immune response t o Mycobacterium tuberculosis antigens was noted. M. tuberculosis infection unlikely. Blood No Phlebotomy Charged / Unknown 07/26/2021 9:00 AM CDT 07/26/2021 2:15 PM CDT Narrative [facility] - 07/28/2021 1:01 PM CDT A [...] immunocompromised individuals. https://www.cdc.gov/tb/publications/guidelines/testing.htm us Edita L Behrends CLIENT SUCCESS SPECIALIST, WATER SOFTENER INSTALLER IMMUNOLOGY ORDERABL ES Final Result Performing Organization Address [facility] Co de Phone Number [facility] [address] [place] [address], [place] * HEPATITIS B SURFACE ANTIBODY (HBSAB) (07/26/2021 9:00 AM CDT) HEPATITIS B SURFACE ANTIBODY 8.33 mIU/mL [facility] ARCH [id number] B 07/27/2021 12:02 AM CDT [facility] Comment: Grayzone Range: >=8.00 to <=12.00 The immune status of the individual should be further assessed considering other factors, such as clinical status, follow-up testing, associated risk factors and the use of additional diagnostic information. Blood No Phlebotomy Charged / Unknown 07/26/2021 9:00 AM CDT 07/26/2021 2:15 PM CDT us Edita Garza CLIENT SUCCESS SPECIALIST, WATER SOFTENER INSTALLER CHEMISTRY ORDERABLE S Final Result Performing Organization Address [facility] Co de Phone Number [facility] [address] [place] [address], [place] documented in this encounter Visit Diagnoses Diagnosis Encounter for pre-employment examination Health examination of defined subpopulation documented in this encounter Additional Health Concerns Assessment Noted Time PHQ-9 Depression Total Score: 0 02/11/20 20 12:57 PM CDT documented as of this encounter Care Teams Electric Mule Operator Relationship Specialty Start Date End Date Scooter White DO [address] [place] [address] [place] [address] PCP - General Internal Medicine 03/17/21 06/22/23 Yon Gutierrez MD [address] [place] [address] [address] PCP - General Family Medicine 06/23/23 Manda Singh MD Obstetrics & Gynecology 02/11/20 Malik Cates MD #[address] [address] Consulting Physician Endocrinology 12/13/21 Ulices Marino MD [address] [address] Consulting Physician Colon and Rectal Surgery 07/06/22 Georgina Fontenot APRN, REFRIGERATED NATIONAL TRUCK DRIVER [address] [place] [address] Nurse Practitioner Advanced Practice Nurse 09/25/24 documented as of this encounter
--- OUTSIDE RECORDS SUMMARY | 2024-11-25 00:25 | XMS_ITS | Encounter Summary ---
Author Organization [facility] Address [address] [place] [address] Phone Care Team Providers Care Port Purser Name Role Phone Manda Singh MD Unavailable [phone] Robby Torres Primary Care Provider Scooter White DO Primary Care Provider Malik Cates MD Unavailable Ulices Marino MD Unavailable Yon Gutierrez MD Primary Care Provider Georgina Fontenot APRN, [facility] Unavailable [phone] Encounter Details Date Type Department Care Team (Late st Contact Info) Description 03/09/2020 Transcribe Orders [facility] Preop/Pacu II [address] [place] [address] Walter Blake MD [address] [place] [address] Preop testing (Primary Dx) Social History Tobacco [...] COVID-19? Unable to assess 03/10/2020 1:32 PM SUPERVISOR DOCK documented as of this encounter Plan of Treatment Not on file documented as of this encounter Visit Diagnoses Diagnosis Preop testing- Primary Preoperative examination, unspecified documented in this encounter Additional Health Concerns Infection Onset Date Last Indicated Resolved Time COVID - 19 03/10/2020 03/10/2020 03/16/2020 11:4 0 AM SUPERVISOR DOCK Assessment Noted Time PHQ-9 Depression Total Score: 0 02/11/20 20 12:57 PM CDT documented as of this encounter Care Teams Port Purser Relationship Specialty Start Date End Date Robby Torres [address] [facility] [place] [address] PCP - General Family Medicine 02/11/20 03/16/21 Scooter White DO [facility] [address] PCP - General Internal Medicine 03/17/21 06/22/23 Yon Gutierrez MD [address] [facility] , [facility] [address] [place] [address] PCP - General Family Medicine 06/23/23 Manda Singh MD Obstetrics & Gynecology 02/11/20 Malik Cates MD #2 [facility] [address] [place] [address] Consulting Physician Endocrinology 12/13/21 Ulices Marino MD [address] [address] Consulting Physician Colon and Rectal Surgery 07/06/22 Georgina Fontenot APRN, SHOP ASSISTANT [address] [place] [address] Nurse Practitioner Advanced Practice Nurse 09/25/24 documented as of this encounter
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
[2024-11-25 00:26] VITALS: TEMP 36.7
--- OUTSIDE RECORDS SUMMARY | 2024-11-25 00:26 | XMS_ITS | Continuity of Care Document ---
Author Organization [facility] Address [address] [facility] [place] [address] Phone Care Team Providers Care Assembly Associate Name Role Phone Robby Torres MD Unavailable [...] Copied on Encounter [facility], [address] [facility] [place], [address], [place] tel:[phone] [facility] No Information 1 Brian Bustamante. [address], [address], [place], [place], [address] , [place]. tel:[phone] [facility], [address], [place], [place], [address], [place] tel:[phone] [facility] No Information 0 Brian Bustamante. [address], [address], [place], [place], [address] , [place]. tel:[phone] OFFICE/OUTPA TIENT VISIT, [facility], [place], [address], [place], [place], [address], [place] tel:[phone] [facility] anxiety1 (chief complaint) Generalized Anxiety DisorderHypothyroid ism 0 Brian Bustamante. [address], [address], [place], [place], [address] , [place]. tel:[phone] Referring Provider: Robby Torres [address], [place], [place], [address]. tel:[phone] OFFICE/OUTPA TIENT VISIT, [facility], [place], [address], [place], [place], [address], [place] tel:[phone] [facility] anxiety1 (chief complaint) Generalized Anxiety DisorderGoiter 0 Brian Bustamante. [address], [place], [place], [address] , [place]. tel:[phone] Referring Provider: Robby Torres [address], [place], [place], [address]. tel:[phone] OFFICE/OUTPA TIENT VISIT, [facility], [place], [address], [place], [place], [address], [place] tel:[phone] [facility] thyroid nodule1 (chief complaint) anxiety1 (chief complaint) GoiterGeneralized Anxiety Disorder 0 Brian Menendez [address], [address], [place], [place], [address] , [place]. tel:[phone] Referring Provider: Gissel Banks [address], [place], [place], [address]. tel:[phone] OFFICE/OUTPA TIENT VISIT, [facility], [place], [address], [place], [place], [address], [place] tel:[phone] [facility] anxiety1 (chief complaint) iron1 (chief complaint) thyroid1 (chief complaint) Disorder of iron metabolism, unspecifiedGoiterGe neralized Anxiety Disorder Lonnie-0 0 Brian Bustamante. [address], [place], [place], [address] , [place]. [phone] Referring Provider: Gissel Banks [address], [place], [place], [address]. tel:[phone] OFFICE/OUTPA TIENT VISIT, [facility], [place], [address], [place], [place], [address], [place] tel:[phone] [facility] ankle pain1 (chief complaint) fatigue1 (chief complaint) thyroid1 (chief complaint) anemia1 (chief complaint) Pain in right ankleFatigueAnemiaG oiter 0 Brian Bustamante. [address], [address], [place], [place], [address] , [place]. tel:[phone] Referring Provider: Gissel Banks [address], [place], [place], [address]. tel:[phone] OFFICE/OUTPA TIENT VISIT, [facility], [place], [address], [place], [place], [address], [place] tel:[phone] [facility] rash1 (chief complaint) Allergic contact dermatitis due to plants, except food Aug- 0 Brian Bustamante. [address], [address], [place], [place], [address] , [place]. [phone] Referring Provider: Gissel Banks [address], [place], [place], [address]. tel:[phone] OFFICE/OUTPA TIENT VISIT, [facility], [place], [address], [place], [place], [address], tel:[phone] [facility] Medicine thyroid1 (chief complaint) ferritin1 (chief complaint) IgA (chief complaint) fatigue1 (chief complaint) GoiterDisorder of iron metabolism, unspecifiedVitamin D deficiency, unspecifiedRaised level of immunoglobulinAnemi aH. pylori as the cause of diseases classified elsewhereFatigue 0 Brian Bustamante. [address] [facility] [place], [address] , . tel:[phone] Referring Provider: Gissel Banks [place], [place], [address]. tel:[phone] PREV VISIT, NEW, AGE 18-39 [facility], [address] [place] [address] [employer], [place], [address], tel:[phone] [facility] PHysical (chief complaint) Encntr for general adult medical exam w/o abnormal findings 0 Brian Bustamante. [address], [facility] [address], [place], [place], [address] , [place]. tel:[phone] Referring Provider: Robby Torres [address] [place] [address], [id number]. tel:[phone] Family History Family Member Type Diagnosis Age [...] BIOPSY ordered Referral Referred To: Joe Fontana [address] [facility]
[address] [place], [place] [id number] Ordered: Referrals: Allopathic & Osteopathic Physicians : [...] keira with endo fatigue1 Pt has mild radio host mark fatigue Pt had sleep study done which was negative for sleep apnea ankle pain1 Pt was at [place] round and she stepped on gravel which [...]
--- OUTSIDE RECORDS SUMMARY | 2024-11-25 00:26 | XMS_ITS | Data Portability ---
Author Organization [facility] [place] Address [address] [facility] [place] [address] Care Team Providers Care Gelatin Powder Mixer Name Role Phone ZO MORA OTHER [phone] Assessment Encounter Date Assessment Date Assessment LastModified [...] auto diff 2018 019 [facility], [address] [address], [place], [address], 9 06:40:13 ferritin, serum or plasma 2018 019 [facility], [address] [facility], [place], [address], 9 06:40:14 iron + total iron-bindin g capacity (TIBC), serum 2018 019 [facility], [address] [place] [address], [place], [address], 9 06:40:14 HIV 1+2 AB + HIV 1 p24 Ag, qualitative immunoassay , serum 2018 019 [facility], [address], [place], [address], 9 07:12:01 HBsAg (hepatitis B surface Ag), EIA, serum 2018 019 [facility], [address], [place], [address], 9 07:12:02 hepatitis C Ab, signal-to-c utoff, serum or plasma 2018 019 [facility], [address], [place], [address], 9 07:12:01 RPR (rapid plasma reagin), serum 2018 019 [facility], [address], [place], [address], 9 07:12:00 hsv (1+2) igg Ab, serum 2018 019 [facility], [address] [facility], [place], [address], 9 07:12:00 CBC w/ auto diff 2018 019 [facility], [address] [facility], [place], [address], 9 07:11:59 Referral general surgeon referral 2018 019 LANA Moralez MD, [address] [facility] , [facility] [address], [place], [address], 9 12:38:24 ENT referral - Saw Dr. Mora --- need a second opinion. 2018 019 [facility], [address] [facility] [address], [place], [address], 9 17:55:21 Procedures None recorded. Surgeries None recorded. Imaging None recorded. Medication Orders ferrous sulfate 325 mg (65 mg iron) tablet [address] [facility] [address] [facility], [address] [place] [address], [address], 9 11:26:58 Mucinex 600 mg tablet, extended release 2018 [address] [facility], [address] [place] [address], [address], 9 00:24:12 ferrous sulfate 325 mg (65 mg iron) tablet [address] [facility], [address] [place] [address], [address], 9 12:48:40 Tessalon Perles 100 mg capsule [address] [facility], [address] [place] [address], [address], 9 00:24:06 Patient TargetsNo targets recorded. Patient Instructions Encounter Date Encounter Id Patient Instructions Last Modified By Organization Details Last Modified Time 07/27/2018 [id number] upper respirator y infection (cold): care instructions [facility] Not available 07/27/2018 13:23:41 08/29/2018 [id number] hemorrhoids: car e instructions Not available 08/29/2018 16:13:52 anemia: care instructions Not available 08/29/2018 18:08:26 09/05/2018 [id number] Acute Sinusitis: Care Instructions Not available 09/05/2018 12:48:40 11/13/2018 [id number] hemorrhoids: car e instructions [facility] Not available 11/27/2018 00:17:15 02/13/2019 [id number] dizziness: care instructions [facility] Not available 02/13/2019 11:26:58 electrocardiogra m interpretation* [facility] Not available 03/13/2019 15:05:29 Reason for Referral ENT Referral for Cervical ly mphadenopathy Saw Dr. Mora --- need a second opinion. Referring Physician: Lucero Sandoval, Family Medicine, Encounter Date: 07/27/2018 General Surgeon Referral for Hemorrhoids Referring Physician: Ricardo Ramirez, RN HOSPICE, Encounter Date: 08/29/2018 Results Created Date Observation Date Name Description Value Unit Range Abnormal Flag Note LastModifiedBy Organization Detail LastModifiedTime 07/04/19 19 07/05/2018 TSH + free T4, serum TSH 3.080 uIU/m L 0.450- 4.500 Not Available [facility] ([facility]) [address] [place], [address], 07/05/2018 09:23:03 07/04/19 19 07/05/2018 TSH + free T4, serum T4,free(dire ct) 1.06 NG/dL 0.82-1 .77 Not Available [facility] ([facility]) [address] [place], [address], 07/05/2018 09:23:03 07/04/19 19 07/04/2018 CBC w/ auto diff WBC 7.2 x10e3 /uL 3.4-10 .8 Not Available [facility] ([facility]) [address] [place], [address], 07/05/2018 09:23:03 07/04/19 19 07/04/2018 CBC w/ auto diff RBC 4.87 x10e6 /uL 3.77-5 .28 Not Available [facility] ([facility]) [address] [place], [address], 07/05/2018 09:23:03 07/04/19 19 07/04/2018 CBC w/ auto diff hemoglobin 11.5 g/dL 11.1-1 5.9 Not Available [facility] ([facility]) [address] [place], [address], 07/05/2018 09:23:03 07/04/19 19 07/04/2018 CBC w/ auto diff hematocrit 36.2 % 34.0-4 6.6 Not Available [facility] ([facility]) [address] [facility] [place], [address], 07/05/2018 09:23:03 07/04/19 19 07/04/2018 CBC w/ auto diff MCV 74 fL 79-97 below low normal Not Available [facility] ([facility]) [address] [facility] [place], [address], 07/05/2018 09:23:03 07/04/19 19 07/04/2018 CBC w/ auto diff MCH 23.6 pg 26.6-3 3.0 below low normal Not Available [facility] ([facility]) [address] [facility] [place], [address], 07/05/2018 09:23:03 07/04/19 19 07/04/2018 CBC w/ auto diff MCHC 31.8 g/dL 31.5-3 5.7 Not Available [facility] ([facility]) [address] [facility] [place], [address], 07/05/2018 09:23:03 07/04/19 19 07/04/2018 CBC w/ auto diff RDW 16.0 % 12.3-1 5.4 above high normal Not Available [facility] ([facility]) [address] [facility] [place], [address], 07/05/2018 09:23:03 07/04/19 19 07/04/2018 CBC w/ auto diff platelets 480 x10e3 /uL 150-37 9 above high normal Not Available [facility] ([facility]) [address] [facility] [place], [address], 07/05/2018 09:23:03 07/04/19 19 07/04/2018 CBC w/ auto diff neutrophils 64 % not estab. Not Available [facility] ([facility]) [address] [facility] [place], [address], 07/05/2018 09:23:03 07/04/19 19 07/04/2018 CBC w/ auto diff lymphs 28 % not estab. Not Available [facility] ([facility]) [address] [facility], [place], [address], 07/05/2018 09:23:03 07/04/19 19 07/04/2018 CBC w/ auto diff monocytes 6 % not estab. Not Available [facility] ([facility]) [address] [facility], [place], [address], 07/05/2018 09:23:03 07/04/19 19 07/04/2018 CBC w/ auto diff eos 1 % not estab. Not Available [facility] ([facility]) [address] [place], [address], 07/05/2018 09:23:03 07/04/19 19 07/04/2018 CBC w/ auto diff basos 1 % not estab. Not Available [facility] ([facility]) [address] [facility], [place], [address], 07/05/2018 09:23:03 07/04/19 19 07/04/2018 CBC w/ auto diff immature cells DECORATING INSTRUCTOR Not Available [facility] ([facility]) [address] [facility], [place], [address], 07/05/2018 09:23:03 07/04/19 19 07/04/2018 CBC w/ auto diff neutrophils (absolute) 4.6 x10e3 /uL 1.4-7. 0 Not Available [facility] ([facility]) [address] [place], [address], 07/05/2018 09:23:03 07/04/19 19 07/04/2018 CBC w/ auto diff lymphs (absolute) 2.0 x10e3 /uL 0.7-3. 1 Not Available [facility] ([facility]) [address] [place], [address], 07/05/2018 09:23:03 07/04/19 19 07/04/2018 CBC w/ auto diff monocytes(ab solute) 0.5 x10e3 /uL 0.1-0. 9 Not Available [facility] ([facility]) [address] [facility], [place], [address], 07/05/2018 09:23:03 07/04/19 19 07/04/2018 CBC w/ auto diff eos (absolute) 0.1 x10e3 /uL 0.0-0. 4 Not Available [facility] ([facility]) [address] [facility], [place], [address], 07/05/2018 09:23:03 07/04/19 19 07/04/2018 CBC w/ auto diff baso (absolute) 0.1 x10e3 /uL 0.0-0. 2 Not Available [facility] ([facility]) [address] [facility], [place], [address], 07/05/2018 09:23:03 07/04/19 19 07/04/2018 CBC w/ auto diff immature granulocytes 0 % not estab. Not Available [facility] ([facility]) [address] [facility], [place], [address], 07/05/2018 09:23:03 07/04/19 19 07/04/2018 CBC w/ auto diff immature grans (abs) 0.0 x10e3 /uL 0.0-0. 1 Not Available [facility] ([facility]) [address] [facility], [place], [address], 07/05/2018 09:23:03 07/04/19 19 07/04/2018 CBC w/ auto diff NRBC DECORATING INSTRUCTOR Not Available [facility] ([facility]) [address] [place], [address], 07/05/2018 09:23:03 07/04/19 19 07/04/2018 CBC w/ auto diff hematology comments: DECORATING INSTRUCTOR Not Available [facility] ([facility]) [address] [facility], [place], [address], 07/05/2018 09:23:03 07/04/19 19 07/05/2018 CMP, serum or plasm a glucose 90 mg/dL 65-99 Not Available [facility] ([facility]) [address] [place], [address], 07/05/2018 09:23:04 07/04/19 19 07/05/2018 CMP, serum or plasm a BUN 9 mg/dL 6-20 Not Available [facility] ([facility]) [address] [place], [address], 07/05/2018 09:23:04 07/04/19 19 07/05/2018 CMP, serum or plasm a creatinine 0.66 mg/dL 0.57-1 .00 Not Available [facility] ([facility]) [address] [place], [address], 07/05/2018 09:23:04 07/04/19 19 07/05/2018 CMP, serum or plasm a eGFR if nonafricn AM 123 mL/mi n/1.7 3 >59 Not Available [facility] ([facility]) [address] [place], [address], 07/05/2018 09:23:04 07/04/19 19 07/05/2018 CMP, serum or plasm a eGFR if africn AM 142 mL/mi n/1.7 3 >59 Not Available [facility] ([facility]) [address] [place], [address], 07/05/2018 09:23:04 07/04/19 19 07/05/2018 CMP, serum or plasm a BUN/creatini ne ratio 14 9-23 Not Available [facility] ([facility]) [address] [place], [address], 07/05/2018 09:23:04 07/04/19 19 07/05/2018 CMP, serum or plasm a sodium 139 mmol/ L 134-14 4 Not Available [facility] ([facility]) [address] [place], [address], 07/05/2018 09:23:04 07/04/1907/05/2018 CMP, serum or plasm a potassium 4.4 mmol/ L 3.5-5. 2 Not Available [facility] ([facility]) [address] [place], [address], 07/05/2018 09:23:04 07/04/1907/05/2018 CMP, serum or plasm a chloride 102 mmol/ L 96-106 Not Available [facility] ([facility] [address] [place], [address], 07/05/2018 09:23:04 07/04/1907/05/2018 CMP, serum or plasm a carbon dioxide, total 23 mmol/ L 20-29 Not Available [facility] ([facility]) [address] [facility], [address], 07/05/2018 09:23:04 07/04/1907/05/2018 CMP, serum or plasm a calcium 9.7 mg/dL 8.7-10 .2 Not Available [facility] ([facility]) [address] [facility], [address], 07/05/2018 09:23:04 07/04/19 19 07/05/2018 CMP, serum or plasm a protein, total 8.1 g/dL 6.0-8. 5 Not Available [facility] ([facility] [address] [place], [address], 07/05/2018 09:23:04 07/04/1907/05/2018 CMP, serum or plasm a albumin 4.6 g/dL 3.5-5. 5 Not Available [facility] ([facility] [address] [place], [address], 07/05/2018 09:23:04 07/04/1907/05/2018 CMP, serum or plasm a globulin, total 3.5 g/dL 1.5-4. 5 Not Available [facility] ([facility]) [address] [facility] [place], [address], 07/05/2018 09:23:04 07/04/1907/05/2018 CMP, serum or plasm a A/G ratio 1.3 1.2-2. 2 Not Available [facility] ([facility]) [address] [facility] [place], [address], 07/05/2018 09:23:04 07/04/1907/05/2018 CMP, serum or plasm a bilirubin, total 0.3 mg/dL 0.0-1. 2 Not Available [facility] ([facility]) [address] [facility] [place], [address], 07/05/2018 09:23:04 07/04/1907/05/2018 CMP, serum or plasm a alkaline phosphatase 68 IU/L 39-117 Not Available [facility]) [address] [facility] [place], [address], 07/05/2018 09:23:04 07/04/1907/05/2018 CMP, serum or plasm a AST (SGOT) 20 IU/L 0-40 Not Available [facility] ([facility]) [address] [facility] [place], [address], 07/05/2018 09:23:04 07/04/1907/05/2018 CMP, serum or plasm a ALT (SGPT) 15 IU/L 0-32 Not Available [facility] ([facility]) [address] [facility] [place], [address], 07/05/2018 09:23:04 07/04/1907/05/2018 cytom egalo virus (cmv) igg+i gm Ab, serum cytomegalovi yung (CMV) Ab, IgG <0.60 U/mL 0.00-0 .59 Negat hayde <0.60 Equiv ocal 0.60 - 0.69 Posit hayde >0.69 Not Available [facility] ([facility]) [address] [facility], [place], [address], 07/05/2018 09:23:04 07/04/19 19 07/05/2018 cytom egalo virus (cmv) igg+i gm Ab, serum cytomegalovi yung (CMV) Ab, IgM <30.0 AU/mL 0.0-29 .9 Negat hayde <30.0 Equiv ocal 30.0 - 34.9 Posit hayde >34.9 A posit hayde resul t is gener ally indic ative of acute infec tion, react ivati on or persi stent IgM produ ction . Not Available [facility] ([facility]) [address] [facility], [place], [address], 07/05/2018 09:23:04 07/04/1907/05/2018 RPR (rapi d plasm a reagi n), serum RPR Non Reacti ve non reacti ve Not Available [facility] ([facility]) [address] [facility], [place], [address], 07/05/2018 09:23:05 07/04/1907/05/2018 heter ophil e Ab, quali tativ e latex agglu tinat ion, serum mono qual w/rflx qn Negati ve negati ve The sensi tivit y of Heter ophil e antib srinivasan testi ng is 80-90 %. Epste in [place] IgM testi ng offer s highe r sensi tivit y. Not Available [facility] ([facility]) [address] [facility], [place], [address], 07/05/2018 09:23:06 08/30/1908/30/2018 CBC w/ auto diff WBC 7.4 x10e3 /uL 3.4-10 .8 Not Available [facility] ([facility]) [address] [place], [address], 08/30/2018 07:11:59 08/30/19 19 08/30/2018 CBC w/ auto diff RBC 4.51 x10e6 /uL 3.77-5 .28 Not Available [facility] ([facility]) [address] [place], [address], 08/30/2018 07:11:59 08/30/19 19 08/30/2018 CBC w/ auto diff hemoglobin 11.0 g/dL 11.1-1 5.9 below low normal Not Available [facility] ([facility]) [address] [place], [address], 08/30/2018 07:11:59 08/30/1908/30/2018 CBC w/ auto diff hematocrit 34.2 % 34.0-4 6.6 Not Available [facility] ([facility]) [address] [place], [address], 08/30/2018 07:11:59 08/30/19 19 08/30/2018 CBC w/ auto diff MCV 76 fL 79-97 below low normal Not Available [facility] ([facility]) [address] [place], [address], 08/30/2018 07:11:59 08/30/19 19 08/30/2018 CBC w/ auto diff MCH 24.4 pg 26.6-3 3.0 below low normal Not Available [facility] ([facility]) [address] [place], [address], 08/30/2018 07:11:59 08/30/1908/30/2018 CBC w/ auto diff MCHC 32.2 g/dL 31.5-3 5.7 Not Available [facility] ([facility]) [address] [place], [address], 08/30/2018 07:11:59 08/30/19 19 08/30/2018 CBC w/ auto diff RDW 15.6 % 12.3-1 5.4 above high normal Not Available [facility] ([facility]) [address] [facility], [place], [address], 08/30/2018 07:11:59 08/30/19 19 08/30/2018 CBC w/ auto diff platelets 389 x10e3 /uL 150-37 9 above high normal Not Available [facility] ([facility]) [address] [facility], [place], [address], 08/30/2018 07:11:59 08/30/19 19 08/30/2018 CBC w/ auto diff neutrophils 59 % not estab. Not Available [facility] ([facility]) [address] [facility], [place], [address], 08/30/2018 07:11:59 08/30/19 19 08/30/2018 CBC w/ auto diff lymphs 31 % not estab. Not Available [facility] ([facility]) [address] [facility], [place], [address], 08/30/2018 07:11:59 08/30/19 19 08/30/2018 CBC w/ auto diff monocytes 8 % not estab. Not Available [facility] ([facility]) [address] [facility], [place], [address], 08/30/2018 07:11:59 08/30/19 19 08/30/2018 CBC w/ auto diff eos 1 % not estab. Not Available [facility] ([facility]) [address] [facility], [place], [address], 08/30/2018 07:11:59 08/30/1908/30/2018 CBC w/ auto diff basos 1 % not estab. Not Available [facility] ([facility]) [address] [facility], [place], [address], 08/30/2018 07:11:59 08/30/1908/30/2018 CBC w/ auto diff immature cells DECORATING INSTRUCTOR Not Available [facility] ([facility]) [address] [facility], [place], [address], 08/30/2018 07:11:59 08/30/19 19 08/30/2018 CBC w/ auto diff neutrophils (absolute) 4.4 x10e3 /uL 1.4-7. 0 Not Available [facility] ([facility]) [address] [place], [address], 08/30/2018 07:11:59 08/30/1908/30/2018 CBC w/ auto diff lymphs (absolute) 2.3 x10e3 /uL 0.7-3. 1 Not Available [facility] ([facility]) [address] [place], [address], 08/30/2018 07:11:59 08/30/1908/30/2018 CBC w/ auto diff monocytes(ab solute) 0.6 x10e3 /uL 0.1-0. 9 Not Available [facility] ([facility]) [address] [place], [address], 08/30/2018 07:11:59 08/30/1908/30/2018 CBC w/ auto diff eos (absolute) 0.1 x10e3 /uL 0.0-0. 4 Not Available [facility] ([facility]) [address] [place], [address], 08/30/2018 07:11:59 08/30/1908/30/2018 CBC w/ auto diff baso (absolute) 0.0 x10e3 /uL 0.0-0. 2 Not Available [facility] ([facility]) [address] [place], [address], 08/30/2018 07:11:59 08/30/1908/30/2018 CBC w/ auto diff immature granulocytes 0 % not estab. Not Available [facility] ([facility]) [address] [place], [address], 08/30/2018 07:11:59 08/30/1908/30/2018 CBC w/ auto diff immature grans (abs) 0.0 x10e3 /uL 0.0-0. 1 Not Available [facility] ([facility]) [address] [facility], [place], [address], 08/30/2018 07:11:59 08/30/1908/30/2018 CBC w/ auto diff NRBC DECORATING INSTRUCTOR Not Available [facility] ([facility]) [address] [facility], [place], [address], 08/30/2018 07:11:59 08/30/1908/30/2018 CBC w/ auto diff hematology comments: DECORATING INSTRUCTOR Not Available [facility] ([facility]) [address] [facility], [place], [address], 08/30/2018 07:11:59 08/30/1908/30/2018 hsv (1+2) igg Ab, [...] willy to HSV-1 . Not Available [facility] ([facility]) [address] [facility], [place], [address], 08/30/2018 07:12:00 08/30/1908/30/2018 hsv (1+2) igg Ab, [...] HSV-2 . Not Available [facility] ([facility]) [address] [facility], [place], [address], 08/30/2018 07:12:00 08/30/19 19 08/30/2018 RPR (rapi d plasm a reagi n), serum RPR Non Reacti ve non reacti ve Not Available [facility] ([facility]) [address] [facility], [place], [address], 08/30/2018 07:12:00 08/30/1908/30/2018 HIV 1+2 AB + HIV 1 p24 Ag, quali tativ e immun oassa y, serum HIV screen 4TH generation wrfx Non Reacti ve non reacti ve Not Available [facility] ([facility]) [address] [facility], [place], [address], 08/30/2018 07:12:01 08/30/19 19 08/30/2018 hepat itis C Ab, signa l-to- cutof f, serum or plasm a HCV Ab <0.1 s/co_ ratio 0.0-0. 9 Not Available [facility] ([facility]) [address] [facility], [place], [address], 08/30/2018 07:12:01 08/30/1908/30/2018 hepat itis C Ab, signa l-to- cutof f, serum or plasm a comment: Commen t Non react hayde HCV antib srinivasan scree n is consi stent with no HCV infec tion, unles s recen t infec tion is suspe cted or other evide nce exist s to indic ate HCV infec tion. Not Available [facility] ([facility]) [address] [facility], [place], [address], 08/30/2018 07:12:01 08/30/1908/30/2018 HBsAg (hepa titis B surfa ce Ag), EIA, serum HBsAg screen Negati ve negati ve Not Available [facility] ([facility]) [address] [facility], [place], [address], 08/30/2018 07:12:02 02/14/2002/14/2019 CBC w/ auto diff WBC 7.5 x10e3 /uL 3.4-10 .8 Not Available [facility] ([facility]) [address] [facility], [place], [address], 02/14/2019 06:40:13 02/14/2002/14/2019 CBC w/ auto diff RBC 4.34 x10e6 /uL 3.77-5 .28 Not Available [facility] ([facility]) [address] [facility], [place], [address], 02/14/2019 06:40:13 02/14/2002/14/2019 CBC w/ auto diff hemoglobin 11.1 g/dL 11.1-1 5.9 Not Available [facility] ([facility]) [address] [facility], [place], [address], 02/14/2019 06:40:13 02/14/2002/14/2019 CBC w/ auto diff hematocrit 34.2 % 34.0-4 6.6 Not Available [facility] ([facility]) [address] [facility], [place], [address], 02/14/2019 06:40:13 02/14/2002/14/2019 CBC w/ auto diff MCV 79 fL 79-97 Not Available [facility] ([facility]) [address] [facility], [place], [address], 02/14/2019 06:40:13 02/14/2002/14/2019 CBC w/ auto diff MCH 25.6 pg 26.6-3 3.0 below low normal Not Available [facility] ([facility]) [address] [facility], [place], [address], 02/14/2019 06:40:13 02/14/2002/14/2019 CBC w/ auto diff MCHC 32.5 g/dL 31.5-3 5.7 Not Available [facility] ([facility]) [address] [facility], [place], [address], 02/14/2019 06:40:13 02/14/2002/14/2019 CBC w/ auto diff RDW 15.0 % 12.3-1 5.4 Not Available [facility] ([facility]) [address] [facility], [place], [address], 02/14/2019 06:40:13 02/14/2002/14/2019 CBC w/ auto diff platelets 372 x10e3 /uL 150-45 0 Not Available [facility] ([facility]) [address] [facility], [place], [address], 02/14/2019 06:40:13 02/14/2002/14/2019 CBC w/ auto diff neutrophils 61 % not estab. Not Available [facility] ([facility]) [address] [facility], [place], [address], 02/14/2019 06:40:13 02/14/2002/14/2019 CBC w/ auto diff lymphs 28 % not estab. Not Available [facility] ([facility]) [address] [facility], [place], [address], 02/14/2019 06:40:13 02/14/2002/14/2019 CBC w/ auto diff monocytes 8 % not estab. Not Available [facility] ([facility]) [address] [facility], [place], [address], 02/14/2019 06:40:13 02/14/2002/14/2019 CBC w/ auto diff eos 2 % not estab. Not Available [facility] ([facility]) [address] [facility], [place], [address], 02/14/2019 06:40:13 02/14/2002/14/2019 CBC w/ auto diff basos 1 % not estab. Not Available [facility] ([facility]) [address] [facility], [place], [address], 02/14/2019 06:40:13 02/14/2002/14/2019 CBC w/ auto diff immature cells DECORATING INSTRUCTOR Not Available [facility] ([facility]) [address] [facility], [place], [address], 02/14/2019 06:40:13 02/14/2002/14/2019 CBC w/ auto diff neutrophils (absolute) 4.7 x10e3 /uL 1.4-7. 0 Not Available [facility] ([facility]) [address] [facility], [place], [address], 02/14/2019 06:40:13 02/14/2002/14/2019 CBC w/ auto diff lymphs (absolute) 2.1 x10e3 /uL 0.7-3. 1 Not Available [facility] ([facility]) [address] [facility], [place], [address], 02/14/2019 06:40:13 02/14/2002/14/2019 CBC w/ auto diff monocytes(ab solute) 0.6 x10e3 /uL 0.1-0. 9 Not Available [facility] ([facility]) [address] [facility], [place], [address], 02/14/2019 06:40:13 02/14/2002/14/2019 CBC w/ auto diff eos (absolute) 0.1 x10e3 /uL 0.0-0. 4 Not Available [facility] ([facility]) [address] [place], [address], 02/14/2019 06:40:13 02/14/2002/14/2019 CBC w/ auto diff baso (absolute) 0.0 x10e3 /uL 0.0-0. 2 Not Available [facility] ([facility]) [address] [facility], [place], [address], 02/14/2019 06:40:13 02/14/2002/14/2019 CBC w/ auto diff immature granulocytes 0 % not estab. Not Available [facility] ([facility]) [address] [facility], [place], [address], 02/14/2019 06:40:13 02/14/2002/14/2019 CBC w/ auto diff immature grans (abs) 0.0 x10e3 /uL 0.0-0. 1 Not Available [facility] ([facility]) [address] [place] [address], [place], [address], 02/14/2019 06:40:13 02/14/2002/14/2019 CBC w/ auto diff NRBC DECORATING INSTRUCTOR Not Available [facility] ([facility]) [address] [place] [address], [place], [address], 02/14/2019 06:40:13 02/14/2002/14/2019 CBC w/ auto diff hematology comments: DECORATING INSTRUCTOR Not Available [facility] ([facility]) [address] [facility], [place], [address], 02/14/2019 06:40:13 02/14/2002/14/2019 iron + total iron- leta ng capac ity (TIBC ), serum iron bind.cap.(TI BC) 353 ug/dL 250-45 0 Not Available [facility] ([facility]) [address] [place], [address], 02/14/2019 06:40:14 02/14/2002/14/2019 iron + total iron- leta ng capac ity (TIBC ), serum UIBC 336 ug/dL 131-42 5 Not Available [facility] ([facility]) [address] [place] [address], [address], 02/14/2019 06:40:14 02/14/2002/14/2019 iron + total iron- leta ng capac ity (TIBC ), serum iron 17 ug/dL 27-159 below low normal Not Available [facility] ([facility]) [address] [facility], [place], [address], 02/14/2019 06:40:14 02/14/2002/14/2019 iron + total iron- leta ng capac ity (TIBC ), serum iron saturation 5 % 15-55 alert low Not Available [facility] ([facility]) [address] [facility], [place], [address], 02/14/2019 06:40:14 02/14/2002/14/2019 cristina tin, serum or plasm a ferritin, serum 7 NG/mL 15-150 below low normal Not Available [facility] ([facility]) [address] [facility], [place], [address], 02/14/2019 06:40:14 07/04/19 19 07/04/2018 XR, chest No observ ation record ed. [email or web address] [address] [place], [address], 07/06/2018 16:35:07 08/16/19 19 08/09/2018 CT, neck, soft tissu e, w/ contr ast No observ ation record ed. [address] [place], [address], 11/27/2018 00:09:00 08/17/19 19 08/16/2018 CT, sinus es, w/o contr ast No observ ation record ed. [address] [place], [address], 08/16/2018 13:21:28 Result Notes None recorded. Problems Name Problem SNOMED Code Status Onset Date Resolution Date Notes Provider Name and Address Organization Details Recorded Time Infectiv e vaginiti s 630133539 Active Radha moreno [place] Jeremy [facility] 6 11:25:47 Infectiv e vaginiti s 388641586 Completed BRENDEN Mar [place] - [facility] 5 09:18:25 Maternal care for diminish ed movement s [place] [facility] 6 11:25:47 Maternal care for diminish ed movement s Completed Shahrzad Barrera [place] null, [place] [facility] 5 09:18:25 Breastfe eding painful 408025835 Active [place] [facility] 6 11:25:47 Pain in pelvis 73705455 Active [place] [facility] 6 11:25:47 Vaginal discharg e 475816924 Active white Radha Garcia null[place] [facility] 6 11:25:47 Herpes simplex type 1 infectio n 997646080 Active Valtrex at 36 weeks Radha [place] [facility] 6 11:25:47 Disorder of thyroid gland 67051117 Completed 201811/26/2018 Luc[place] [facility] 9 00:12:22 Cervical lymphade nopathy 807116108 Active 2018 [place] [facility] 9 11:15:19 Upper respirat ory infectio n 69027859 Completed 201811/13/2018 [place] [facility] 9 11:05:53 Mean corpuscu lar volume below referenc e range 436680667 Active 2018 [place] [facility] 9 12:49:50 Acute sinusiti s 46985126 Completed 201811/13/2018 [place] [facility] 9 11:05:49 History of Helicoba cter pylori infectio n 00131256118 580182 Active 2018 GI [place] [facility] 9 00:05:39 Chronic gastriti s 0638224 Active 2018 EGD - H pylori, [place] - [facility] 9 00:06:03 Hemorrho ids 79779008 Active 2018 Gen sx planning for hemorrho idectomy Lucero moreno, [facility] 9 00:06:27 Dizzines s 102280064 Active 2018 Lucero moreno, [facility] 9 11:29:10 Problem Notes None recorded. Procedures Surgical History Date Name Laterality Status Provider Name and Address Organization Details Recorded Time 05/08/19 16 Cholecystectomy completed Radhaluz Garcia [facility] 11/03/2015 11:25:48 01/15/20 15 IUD Insertion completed Ricardo Box [facility] 01/14/2015 12:23:57 04/18/20 12 Date of Last Pap Smear completed Mily Parsons MA [facility] 05/06/2014 16:14:24 05/08/19 10 Appendectomy completed Maida Do MA [facility] 06/17/2014 11:12:04 Imaging Results None recorded. Procedure [...] Updated DateTime 9 162.56 cm 36.7 kg/m2 11605.0 4 g 97.9 [degF] 16 /min 76 /min 124/86 mm[Hg] Jenelle Groves [place] - [facility] 9 12:24:37 Date Recorded Body height Body mass index (BMI) Body weight Systolic And Diastolic Provider Name and Address Organization Details Last Updated DateTime 08/29/2018 162.56 cm 36.2 kg/m2 66382.99 g 130/94 mm[Hg] Shahrzad Barrera MA [facility] 08/29/2018 11:38:34 Date Recorded Body height Body mass index (BMI) Body weight Body temperature Heart rate Respiratory rate Systolic And Diastolic Provider Name and Address Organization Details Last Updated DateTime 9 162.56 cm 36 kg/m2 19305.6 1 g 98.3 [degF] 84 /min 20 /min 132/84 mm[Hg] Jenelle Groves MA [facility] 9 12:15:41 Date Recorded Body height Body mass index (BMI) Body weight Body temperature Heart rate Respiratory rate Systolic And Diastolic Provider Name and Address Organization Details Last Updated DateTime 9 162.56 cm 35.5 kg/m2 38421.9 7 g 98.3 [degF] 70 /min 18 /min 130/80 mm[Hg] Jenelle Groves MA [facility] 9 10:43:45 Date Recorded Body height Body mass index (BMI) Body weight Heart rate Respiratory rate Body temperature Systolic And Diastolic Provider Name and Address Organization Details Last Updated DateTime 9 162.56 cm 36.3 kg/m2 61290.7 9 g 86 /min 20 /min 98.3 [degF] 130/82 mm[Hg] Jenelle Groves MA [facility] 9 11:02:19 Social History Question Answer Notes LastModified by Organizat ion Details LastModified Time Tobacco Smoking Status Never Smoker Maida Do MA [facility] 06/17/2014 11:12:04 Do You Have [...] Information not available 06/17/2014 Marital Status Single [place] [address] Informatio n not available 06/17/2014 What Was [...] SNOMED-CT Code Diagnosis ICD10 Code Diagnosis Note [id number] MD L[place] Weaver ([facility]) [address] [facility] [place] [address] 05/06/2014 15:15:04 05/07/2014 13:43:54 [id number] test positive [id number] Joan Blas [facility] Lalo Husain ([facility]) [address] [facility] [place] [address] 05/22/2014 14:23:39 05/22/2014 15:25:47 [id number] MD Lalo Roldan ([facility]) [address] [facility] [place] [address] 06/17/2014 10:44:30 06/17/2014 15:08:09 [id number] MD Lalo Roldan ([facility]) [address] [facility] [place] [address] 07/15/2014 10:26:03 07/16/2014 09:23:26 Normal [id number] MD Lalo Weaver ([facility] 122) [address] [facility] [place] [address] 08/12/2014 09:35:12 08/12/2014 12:42:08 Normal [id number] MD Lalo Weaver ([facility]) [address] [facility] [place] [address] 08/26/2014 11:56:11 08/27/2014 16:10:13 [id number] MD Lalo Weaver ([facility]) [address] [facility] [place] [address] 09/09/2014 14:42:01 09/09/2014 15:30:17 [id number] MD Lalo Weaver ([facility]) [address] [facility] [place] [address] 09/23/2014 09:49:09 09/23/2014 15:23:49 [id number] MD Lalo Weaver ([facility]) [address] [facility] [place] [address] 10/07/2014 10:59:01 10/07/2014 11:38:07 [id number] MD Lalo Weaver ([facility]) [address] [facility] [place] [address] 10/21/2014 09:36:51 10/23/2014 12:51:20 [id number] MD Lalo Weaver ([facility]) [address] [place] [address] 11/04/2014 09:43:59 11/04/2014 14:45:01 [id number] Normal [id number] MD Lalo Weaver ([facility]) [address] [facility] [place] [address] 11/11/2014 11:18:25 11/11/2014 14:54:02 [id number] Maternal c are for diminished movements 116462851 [id number] MD Lalo Weaver ([facility]) [address] [facility] [place] [address] 11/18/2014 10:46:59 11/18/2014 11:58:55 [id number] MD Lalo Weaver ([facility]) [address] [place] [address] 11/24/2014 08:49:50 11/24/2014 10:29:51 [id number] MD Lalo Weaver ([facility]) [address] [place] [address] 12/24/2014 09:05:47 12/24/2014 12:04:57 care [id number] MD Lalo Weaver ([facility]) [address] [facility] [place] [address] 01/14/2015 11:47:27 01/14/2015 12:33:02 care [id number] Uses contraception 14363739 [id number] MD Lalo Weaver Womens ([facility] 122) [address] [facility] [place] [address] 01/19/2015 15:46:51 01/20/2015 09:49:17 IUD check 247566972 [id number] MD Lalo Weaver Womens ([facility] 122) [address] [facility] [place] [address] 02/11/2015 10:38:39 02/18/2015 18:08:10 IUD check 265672260 Z30.431 [id number] Joan Blas [facility] Lalo Womenjavi ([facility] 122) [address] [facility] [place] [address] 11/03/2015 11:00:12 11/03/2015 14:33:42 detection examination 69079852 Z32.00 IUD check 263901497 Z30. 380 [id number] MD Lalo HURTADO 14 IM [address] [facility] [place] [address] 07/04/2018 09:50:09 07/04/2018 16:26:43 Cervical lymphadenopathy 693720441 R59.0 Had a cough since 02/2018, on and off No traveling. No cat. Weight stable overall. Fatigue - despite sleeping. No dental issues. No focal weakness. Sweaty at times. Irregular periods. Neuro intact. ENT will do US +/- biopsy soon. Labs. Check for mono, syphilis, CMV, CXR. RTC 3mo Disorder o f thyroid gland 34911338 E07.9 Had a cough since 02/2018, on and off. Check TSH [id number] MD Lalo HURTADO 14 IM [address] [facility] [place] [address] 07/27/2018 12:09:33 07/31/2018 15:49:44 Cervical lymphadenopathy 432471077 R59.0 Had a cough since 02/2018, on [...] second ENT opinion. Upper resp iratory infection 80726768 J06.9 Strept and Flu negative. Exam unremarkab le. Conservati ve management . [id number] MD Lalo Chambers 14 OB [address] [facility] [place] [address] 08/29/2018 11:23:12 08/30/2018 09:21:21 Gynecologic examination 98043150 Z01.419 CBE and pelvic exam performedP t is on her menstrual cycle, will RTC for pap smear Venereal d isease screening 666079761 Z11.3 Anemia 535833161 D64.9 Hemorrhoids 11044447 K64 .9 [id number] MD Lalo HURTADO 14 IM [address] [facility] [place] [address] 09/05/2018 12:08:49 09/06/2018 10:44:23 Acute sinusitis 08373608 J01.90 4 days, worsening coughs, chest congestion . Exam sinusitis. Already on antihistam althea, PPI, Augmentin with ENT. Try home Flonase, add mucinex. 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 FeS - taking two tab now. Inc to three - RTC 2mo for ferritin check. [id number] MD Lalo HURTADO 14 IM [address] [facility] [place] [address] 11/13/2018 10:37:12 11/27/2018 11:36:00 Cervical lymphadenopathy 369827617 R59.0 06/2018: Had a cough since 02/2018, [...] done biopsy - result benign. Chronic gastritis 765855 9 K29.50 Followed by GI.Chronic gastritic, H pylori infection - pt was treated. Per pt, her esophagus was also dilated. Hemorrhoids 08217604 K64 .9 Followed by Gen sx - candidate for hemorrhoid ectomy. 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 recently - pt will be rechecked by [...] ID Guarantor Name 09/05/2018 1 [place] [employer] Yessica Young [id number] Yessica Mo 01/08/2019 1 [facility] (MEDICAID HMO) [facility] Yessica Young [id number] Yessica Mo 03/12/2019 2 [place] Yessica Young [id number] Yessica Mo 11/30/2020 1 [place] [id number] Luis Antonio Mo [id number] Yessica Mo 01/19/2015 1 [place] Yessica Young [id number] Yessica Mo 11/03/2015 1 [facility] (MEDICAID HMO) [id number] Yessica Young [id number] Yessica Mo 06/19/2018 1 *SELF PAY* Me [...] pt wants a second opinion Lucero [place] - [facility] 07/31/2018 15:32:25 08/29/2018 text/html Annual [...] PMDD Ricardo Ramirez MD Attn: Accounting,[address] [place], [address], [facility] 08/29/2018 16:15:04 09/05/2018 text/html 23yo female is [...] Domestic Partner Domestic Partner Phone Father Name Credit Correspondence Clerk Status 05/06/20 14 1 A Positive Luis Antonio Mo CLOSED Fetus Data First Name Last Name Admitted to NICU Weight (g) Sex Living Outcome Pediatric Complications Fetus ID Race Codes Race Delivery Type CHASITY ESCAMILLA false 4309.12 4 F Full Term 5386 2106-3 White Vaginal Problems Problem Notes Problem Name Start Date End Date Resolution Snomed Code Not e Infective vaginitis [id number] Maternal care for diminished movements 899902202 Darren Calculation Initial Darren Date Initial Exam [...] Type Weight in lbs Pre/Post Dialysis Refused 203.998162042589 BP Diastolic BP Location Tested BP Systolic BP Type 64 L arm 118 sitting Fetus Heart Rate Present Fetus Movement Comments Flowsheet Date 05/22/2014 Mckinney Score Blood Edema Fundus Height Fundus Units Glucose Ketones Leukocytes Nitrite Labor Signs Protein Cervic Dilation Cervic Effacement Cervic Station neg none none negative neg Type Weight in lbs Pre/Post Dialysis Refused 198.232527551421 BP Diastolic BP Location Tested BP Systolic [...] Type Weight in lbs Pre/Post Dialysis Refused 164.40856597973 BP Diastolic BP Location Tested BP Systolic [...] Type Weight in lbs Pre/Post Dialysis Refused 201.492473763097 BP Diastolic BP Location Tested BP Systolic [...] Type Weight in lbs Pre/Post Dialysis Refused 203.91662326093 BP Diastolic BP Location Tested BP Systolic BP Type 68 128 Fetus Heart Rate Present A 142 Present Fetus Movement A Yes Comments 28 weeks today Flowsheet Date 08/26/2014 Mckinney Score Blood Edema Fundus Height Fundus Units Glucose Ketones Leukocytes Nitrite Labor Signs Protein Cervic Dilation Cervic Effacement Cervic Station 26 cm none Type Weight in lbs Pre/Post Dialysis Refused 203.23355666932 BP Diastolic BP Location Tested BP Systolic BP Type 74 L arm 122 sitting Fetus Heart Rate Present A 146 Present Fetus Movement A Yes Comments Flowsheet Date 09/09/2014 Mckinney Score Blood Edema Fundus Height Fundus Units Glucose Ketones Leukocytes Nitrite Labor Signs Protein Cervic Dilation Cervic Effacement Cervic Station 30 cm none Type Weight in lbs Pre/Post Dialysis Refused 206.799244559400 BP Diastolic BP Location Tested BP Systolic BP Type 60 L arm 120 sitting Fetus Heart Rate Present A 154 Present Fetus Movement A Yes Comments Flowsheet Date 09/23/2014 Mckinney Score Blood Edema Fundus Height Fundus Units Glucose Ketones Leukocytes Nitrite Labor Signs Protein Cervic Dilation Cervic Effacement Cervic Station 32 cm none Type Weight in lbs Pre/Post Dialysis Refused 205.345320556532 BP Diastolic BP Location Tested BP Systolic BP Type 68 110 Fetus Heart Rate Present A 155 Fetus Movement A Yes Comments Flowsheet Date 10/07/2014 Mckinney Score Blood Edema Fundus Height Fundus Units Glucose Ketones Leukocytes Nitrite Labor Signs Protein Cervic Dilation Cervic Effacement Cervic Station none Type Weight in lbs Pre/Post Dialysis Refused 208.492681268056 BP Diastolic BP Location Tested BP Systolic BP Type 78 110 sitting Fetus Heart Rate Present A 154 Fetus Movement A Yes Comments growth scan ordered Flowsheet Date 10/21/2014 Mckinney Score Blood Edema Fundus Height Fundus Units Glucose Ketones Leukocytes Nitrite Labor Signs Protein Cervic Dilation Cervic Effacement Cervic Station 37 cm none Type Weight in lbs Pre/Post Dialysis Refused 213.413986505161 BP Diastolic BP Location Tested BP Systolic BP Type 72 118 sitting Fetus Heart Rate Present A 140 Present Fetus Movement A Yes Comments gbs today. Flowsheet Date 11/04/2014 Mckinney Score Blood Edema Fundus Height Fundus Units Glucose Ketones Leukocytes Nitrite Labor Signs Protein Cervic Dilation Cervic Effacement Cervic Station 37 cm none Type Weight in lbs Pre/Post Dialysis Refused 216.570003429221 BP Diastolic BP Location Tested BP Systolic [...] Type Weight in lbs Pre/Post Dialysis Refused 217.227299765094 BP Diastolic BP Location Tested BP Systolic [...] Type Weight in lbs Pre/Post Dialysis Refused 221.715042115017 BP Diastolic BP Location Tested BP Systolic [...] Type Weight in lbs Pre/Post Dialysis Refused 223.072497501345 BP Diastolic BP Location Tested BP Systolic [...] At Estimated Date of Delivery false Thalassemia (Anguillan, Kosovan, Mediterranean, Or Background): MCV < 80 false Neural Tube Defect (Meningom yelocele, Spina Bifida, Or Anencephaly) false Congenital Heart Defect false Down Syndrome false Curt-Sachs (eg, Shinto, Cajun , Togolese-[place]) false Yung Disease false Sickle Cell Disease [...] Domestic Partner Domestic Partner Phone Father Name Credit Correspondence Clerk Status 06/17/19 15 1 CLOSED Fetus Data First Name Last Name Admitted to NICU Weight (g) Sex Living Outcome Pediatric Complications Fetus ID Race Codes Race Delivery Type 3515.33 8 F Full Term [address] Vaginal Darren Calculation Initial Darren Date Initial [...]
--- OUTSIDE RECORDS SUMMARY | 2024-11-25 00:26 | XMS_ITS | Continuity of Care Document ---
Author Organization [facility] Address [address] [place] [address] [address] [place] [address] Phone Care Team Providers Care Black And White Printer Operator Name Role Phone Carol OD OD, [...] Active Procedures Procedure Date OFFICE/OUTPATIENT VISIT, [facility] Comp cont lens eval No Charge Visit N/C Glasses Check Advance Directives Directive Yes / No Effective Date File Name No Information Encounters Encounter Description Practice Location Reason(s) For Visit Diagnoses Date Provider Providers Copied on Encounter [facility], [address] [place] [address], [place], [place], [id number], tel:[phone] OPH CONSULT KENTRELL LOPEZ No Information 3 Carol OD Georgina. [address], [place], [place], [id number], [place]. tel:[phone] Referring Provider: Georgina Medina OD, [address], [place], [address] . tel:[phone] OFFICE/OUTPA TIENT VISIT, [facility], [address] [place] [address], [id number], tel:[phone] OPH CONSULT KENTRELL LOPEZ blurry vision (chief complaint) dry eye (chief complaint) Krystin's thyroiditisMyo roger, bilateralTear film insufficiency of bilateral lacrimal glandsOther vitreous opacities, bilateralCorne al neovasculariza tion of both eyes 2 Derheimer OD Georgina. [address], [address] [place] [address], [id number], [place]. tel:[phone] Referring Provider: Scooter White, [address], [place], [address]. tel:[phone] [facility], [address] [place] [address], [id number], tel:[phone] Optical Services KENTRELL LOPEZ No Information 6 Derheimer OD Georgina. [address], [address] [place] [address], [id number], [place]. tel:[phone] Referring Provider: Georgina Medina OD, [address], [place], [address] . tel:[phone] [facility], [address] [place] [address], [id number], tel:[phone] OPH CONSULT KENTRELL LOPEZ blurry vision (chief complaint) Myopia, bilateral 6 Derheimer OD Georgina. [address], [place], [place], [id number], [place]. tel:[phone] Referring Provider: Georgina Medina OD, [address], [place], [address] . tel:[phone] [facility], [address] [place] [address], [id number], tel:[phone] OPH CONSULT KENTRELL LOPEZ No Information 1 Beth Cohenl. [address], [place], [place], [id number], [place]. tel:[phone] Family History Family Member Type Diagnosis Age [...]
[2024-11-25 00:31] VITALS: BP 145/79; PULSE 96
[2024-11-25 00:39] LABS: Hematocrit 32.0 % (37.0-47.0); Hemoglobin 10.5 g/dL (12.0-15.0); Immature Granulocyte Percent A 0.9 % (0-0.5); Lymphocytes Absolute Auto 1.92 K/mm3 (0.9-3.2); Mean Corpuscular HGB Conc 32.8 g/dl (32-36); Mean Corpuscular Hemoglobin 27.3 pg (26-34); Mean Corpuscular Volume 83.3 fl (80-100); Nucleated Red Blood Cells Absolute Auto 0.000 K/mm3 (0.0-0.012); Nucleated Red Blood Cells Perc 0.0 % (0.0-0.2); Platelet Count Result 247 k/mm3 (150-375); Red Blood Count 3.84 M/mm3 (4.2-5.4); White Blood Count 11.2 K/mm3 (4.5-10.0)
[2024-11-25 00:45] LABS: Add Urine Microscopic? YES; Appearance Urine Clear (Clear); Glucose Urine UA Negative (Negative); Leukocyte Esterase Ur 1+ LEU/UL (Negative); Nitrate Urine Negative (Negative); Non Pathogenic Casts 0-2; Specific Grav Ur 1.027 (1.001-1.035)
[2024-11-25 00:46] VITALS: BP 114/66; PULSE 88
[2024-11-25 00:47] LABS: Alanine Aminotransferase 15 U/L (6-35); Albumin Level 3.1 g/dL (3.5-5.1); Alkaline Phosphatase 143 U/L (38-126); Anion Gap 7 mmol/L (4-12); Aspartate Amino Transferase 24 U/L (14-36); Bilirubin,Total 0.4 mg/dL (0.2-1.3); Blood Urea Nitrogen 6 mg/dL (7-17); Calcium 8.5 mg/dL (8.4-10.2); Carbon Dioxide 19 mmol/L (22-30); Chloride 106 mmol/L (98-107); Estimated Glomerular Filt Rate > 60; Glucose 112 mg/dL (65-110); Potassium 3.7 mmol/L (3.4-5.0); Sodium 132 mmol/L (137-145); Total Protein 6.2 g/dL (6.3-8.2); Total Protein Urine Random 6 mg/dL; Ur Ttl Prot Creatinine Ratio 0.02 mg/mg (0-0.20); Uric Acid 5.6 mg/dL (2.5-7.5)
--- NOTE | 2024-11-25 00:54 | PC.NURSE ---
Call placed to Dr. Garcia reported c/o headache that started @ 2300, took 1000 mg tylenol, no improvement, increased swelling today on legs. PIH eval performed. Labs reported, FHRs, CTX and Vitals reported. Order to send UA to [facility] and d/c pt home undelivered.
--- NOTE | 2024-11-25 00:59 | PC.NURSE ---
Discussed plan of care with pt, reviewed discharge instructions, reviewed labs and vitals, fhr and ctx. Pt stated understanding, all questions and concerns answered. Pt stated she feels comfortable going home.
--- NOTE | 2024-11-25 01:03 | PC.NURSE ---
Pt discharged home undelivered in stable condition per order from Dr. Garcia. All questions and concerns answered, discharge instructions explained to pt. Pt stated understanding. Pt ambulated out of department with all belongings.
[2024-11-25 01:05] VITALS: BP 130/94; PULSE 102
== END 2024-11-25 01:03 | disposition home or self-care (01) ==
LOC: ANHOBOP 00:23 → ANHLDR 01:01
PROVIDERS: Obstetrics & Gynecology; Visit Provider Advanced Practice Midwife
DX: O13.9 Gestational [pregnancy-induced] hypertension without significant proteinuria, unspecified trimester (principal); Z3A.00 Weeks of gestation of pregnancy not specified
CPT/HCPCS: 36415; 59025; 80053; 81001; 82570; 84156; 84550; 85025; 87086; 99199

== ENCOUNTER 2024-11-26 04:25 | Observation (INO) | payer OTHER, SELFPAY ==
--- OUTSIDE RECORDS SUMMARY | 2024-11-26 05:55 | XMS_ITS | Continuity of Care Document ---
Author Organization [facility] Address [address] [place] [address] [address] [place] [address] Phone Care Team Providers Care Natural Resource Officer Name Role Phone Carol OD OD, [...] - Active Procedures Procedure Date OFFICE/OUTPATIENT VISIT, [facility] Comp cont lens eval No Charge Visit N/C Glasses Check Advance Directives Directive Yes / No Effective Date File Name No Information Encounters Encounter Description Practice Location Reason(s) For Visit Diagnoses Date Provider Providers Copied on Encounter [facility], [address] [place] [address] [address], [place], [place], [id number], tel:[phone] OPH CONSULT KENTRELL LOPEZ No Information 3 Carol OD Georgina. [address], [address], [place], [place], [id number], [place]. tel:[phone] Referring Provider: Georgina Medina OD, [address], [place], [address] . tel:[phone] OFFICE/OUTPA TIENT VISIT, [facility], [address] [place] [address], [id number], tel:[phone] OPH CONSULT KENTRELL LOPEZ blurry vision (chief complaint) dry eye (chief complaint) Krystin's thyroiditisMyo roger, bilateralTear film insufficiency of bilateral lacrimal glandsOther vitreous opacities, bilateralCorne al neovasculariza tion of both eyes 2 Derheimer OD Georgina. [address], [address] [place] [address], [id number], [place]. tel:[phone] Referring Provider: Scooter White, [address], [place], [address]. tel:[phone] [facility], [address] [place] [address], [id number], tel:[phone] [facility] KENTRELL LOPEZ No Information 6 Derheimer OD Georgina. [address], [address] [place] [address], [id number], [place]. tel:[phone] Referring Provider: Georgina Medina OD, [address], [place], [address] . tel:[phone] [facility], [address] [place] [address], [id number], tel:[phone] OPH CONSULT KENTRELL LOPEZ blurry vision (chief complaint) Myopia, bilateral 6 Derheimer OD Georgina. [address], [address], [place], [place], [id number], [place]. tel:[phone] Referring Provider: Georgina Medina OD, [address], [place], [address] . tel:[phone] [facility], [address] [place] [address], [id number], tel:[phone] OPH CONSULT KENTRELL LOPEZ No Information 1 Beth oChenl. [address], [address], [place], [place], [id number], [place]. tel:[phone] Family History Family Member Type Diagnosis Age [...]
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
--- OUTSIDE RECORDS SUMMARY | 2024-11-26 05:55 | XMS_ITS | Continuity of Care Document ---
Author Organization [facility] Address [address] [place] [address] [place] [address] Phone Care Team Providers Care Corporate Specialist Name Role Phone Robby Torres MD [...] Diagnoses Date Provider Providers Copied on Encounter [facility], [address] [facility] [place], [id number], [place] tel:[phone] [facility] No Information 1 Brian Bustamante. [address], [place], [place], [address] , [place]. tel:[phone] [facility], [address], [place], [place], [address], [place] tel:[phone] [facility] No Information 0 Brian Bustamante. [address], [place], [place], [address] , [place]. tel:[phone] OFFICE/OUTPA TIENT VISIT, [facility], [address], [place], [place], [address], [place] tel:[phone] [facility] anxiety1 (chief complaint) Generalized Anxiety DisorderHypothyroid ism 0 Brian Bustamante. [address], [address], [place], [place], [address] , [place]. tel:[phone] Referring Provider: Robby Torres [address], [place], [place], [address]. tel:[phone] OFFICE/OUTPA TIENT VISIT, [facility], [address], [place], [place], [address], [place] tel:[phone] [facility] anxiety1 (chief complaint) Generalized Anxiety DisorderGoiter 0 Brian Bustamante. [address], [place], [place], [address] , [place]. tel:[phone] Referring Provider: Robby Torres [address], [place], [place], [address]. tel:[phone] OFFICE/OUTPA TIENT VISIT, [facility], [address], [place], [place], [address], [place] tel:[phone] [facility] thyroid nodule1 (chief complaint) anxiety1 (chief complaint) GoiterGeneralized Anxiety Disorder 0 Brian Menendez [address], [place], [place], [address] , [place]. tel:[phone] Referring Provider: Gissel [address], [place], [place], [address]. tel:[phone] OFFICE/OUTPA TIENT VISIT, [facility], [address], [place], [place], [address], [place] tel:[phone] [facility] anxiety1 (chief complaint) iron1 (chief complaint) thyroid1 (chief complaint) Disorder of iron metabolism, unspecifiedGoiterGe neralized Anxiety Disorder Lonnie-0 0 Brian Bustamante. [address], [place], [place], [address] , [place]. [phone] Referring Provider: Gissel Banks [address], [place], [place], [address]. tel:[phone] OFFICE/OUTPA TIENT VISIT, [facility], [address], [place], [place], [address], [place] tel:[phone] [facility] ankle pain1 (chief complaint) fatigue1 (chief complaint) thyroid1 (chief complaint) anemia1 (chief complaint) Pain in right ankleFatigueAnemiaG oiter 0 Brian Bustamante. [address], [place], [place], [address] , [place]. tel:[phone] Referring Provider: Gissel Banks [address], [place], [place], [address]. tel:[phone] OFFICE/OUTPA TIENT VISIT, [facility], [address], [place], [place], [address], [place] tel:[phone] [facility] rash1 (chief complaint) Allergic contact dermatitis due to plants, except food Aug- 0 Brian Bustamante. [address], [place], [place], [address] , [place]. [phone] Referring Provider: Gissel Banks [address], [place], [place], [address]. tel:[phone] OFFICE/OUTPA TIENT VISIT, [facility], [address], [place], [place], [address], tel:[phone] [facility] Medicine thyroid1 (chief complaint) ferritin1 (chief complaint) IgA (chief complaint) fatigue1 (chief complaint) GoiterDisorder of iron metabolism, unspecifiedVitamin D deficiency, unspecifiedRaised level of immunoglobulinAnemi aH. pylori as the cause of diseases classified elsewhereFatigue 0 Brian Bustamante. [address] [facility] [place], [address] , . tel:[phone] Referring Provider: Gissel Banks [place], [place], [address]. tel:[phone] PREV VISIT, NEW, AGE 18-39 [facility], [address] [place] [address] [place], [place], [address], tel:[phone] [facility] PHysical (chief complaint) Encntr for general adult medical exam w/o abnormal findings 0 Brian Bustamante. [address], [facility] [address], [place], [place], [address] , [place]. tel:[phone] Referring Provider: Robby Torres [address] [place] [address], [id number]. tel:[phone] Family History Family Member Type Diagnosis Age [...] BIOPSY ordered Referral Referred To: Joe Fontana [address] [facility]
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
--- OUTSIDE RECORDS SUMMARY | 2024-11-26 05:55 | XMS_ITS | Clinical Summary ---
Author Organization [facility] [employer] Address [address] [place] [address] Care Team Providers Care Inspector Repairer Sandstone Name Role Phone Scooter White DO Primary Care Provider [phone] Source Comments [facility],non-owned Affiliates and Associated Physician Practices is amultiple site organization consisting of ambulatory clinics and hospital sitesin [place], [place], [place] and [place]. This disclosure is being madepursuant to the Care Everywhere program and may not contain all information available regarding this patient. Last updated 18.[facility] [employer] Allergies Active Allergy Reactions Criticality Noted Date [...] Type Department Care Team Description 10/28/2024 Telephone [facility] [address] [place], [place] [address] Silvina León Appointment 09/24/2024 1:00 PM CDT - 09/24/2024 11:59 PM CDT Hospital Encounter [facility] [address] [place] [address] Derick Mcclendon MD ORACLE FORMS DEVELOPER Discharge Disposition: Home or Self Care 08/27/2024 12:58 PM CDT - 08/27/2024 11:59 PM CDT Hospital Encounter [facility] [address] [place] [address] Christiano Tristan MD Discharge Disposition: Home or [...] on file Legal Sex Female 1:08 PM TROLLEY CLEANER Gender Identity Not on file Sexual Orientation [...] (HCC) Dichorionic diamniotic twin in second trimester ([facility]) 28 weeks gestation of ([facility]) Supervision of high risk in second trimester ([facility]) Obesity affecting in second trimester, unspecified obesity type ([facility]) Encounter for follow-up ultrasound of anatomy ([facility]) Encounter for ultrasound to assess growth ([facility]) SONOGRAM - COMPLETE Routine 08/27/2024 1 2:52 PM CDT Dichorionic diamniotic twin in second trimester ([facility]) History of pre-eclampsia in prior , currently ([facility]) 24 weeks gestation of ([facility]) Supervision of high risk in second trimester ([facility]) from Last 3 Months Results * SONOGRAM - COMPLETE (09/24/2024 1:09 PM CDT) Only the most recent of2 resultswithin the time period is included. Linked Results Indication ======== DA/DC Twins Incomplete Anatomy Screen x2 History of Preeclampsia, Obesity in , Class II History ====== OB History 4. Para 3 [id number] 1. live 2011. Gest. age 41 w [...] 2 lb 14 oz EFW by Hadlock ([id number]-GF-BA-FL) EFW discordance 4.6 % appropriate Fetus B: Biometry BPD 69.2 mm 27w 6d 42% Hadlock HC 260.6 mm 28w 2d 39% [facility]lock AC 252.3 mm 29w 3d 88% [facility] Femur 51.1 mm 27w 3d 25% Hadlock Humerus 48.6 mm 28w 4d 68% Robinson HC / AC 1.03 Weight Calculation: EFW 1,242 g 69% Hadlock EFW (lb,oz) 2 lb 12 oz EFW by Hadlock (JSM-HP-CG-FL) EFW discordance 4.6 % appropriate Fetus A: [...] Thorax RVOT view. LVOT view. 3-vessel view. 8-ejrlzr-rpdeakv view. Situs. Bicaval view. Ductal arch view. [...] view. RVOT view. LVOT view. 3-vessel view. 1-cjwjgl-drgdjet view. Situs. Aortic arch view. Bicaval view. [...] and begin weekly testing Coding ====== Procedures [id number]: US Preg Uterus Follow Up. x2 Virtual Ports PACS Anatomical Region Laterality Modality Other 09/24/2024 1:09 PM CDT R Bert Garcia MD [facility] ORDERABLES Edited Result - Final from Last 3 Months Insurance HEALTH CARE Care Teams Inspector Repairer Sandstone Relationship Specialty Start Date End Date Scooter White DO PCP - General 03/16/22
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
--- OUTSIDE RECORDS SUMMARY | 2024-11-26 05:55 | XMS_ITS | Clinical Summary ---
Author Organization [facility] Address [address] [facility] [address] [place] [address] Phone Care Team Providers Care Mallet Cutter Name Role Phone Manda Singh MD Unavailable [phone] Malik Cates MD Unavailable Ulices Marino MD Unavailable Yon Gutierrez MD Primary Care Provider Georgina Fontenot SUSTAINABILITY COACH, PORTFOLIO ARCHITECT Unavailable [phone] Allergies Active Allergy Reactions Criticality Noted Date [...] 97.5 kg (215 lb) 04/19/2023 8:07 AM SENIOR QUALITY TECHNICIAN Height 165.1 cm (5' 5) 04/19/2023 8:07 AM SENIOR QUALITY TECHNICIAN Body Mass Index 35.78 04/19/2023 8:07 AM SENIOR QUALITY TECHNICIAN Plan of Treatment Health Maintenance Due Date [...] this topic Medical Devices Implanted Type Area Route Sales Delivery Driver Device Identifier Shelf Expiration Date Model / Serial / Lot Tube Ventilation 5mm Carey Triune - [id number] Implanted:Qty: 1 on 11/05/2018 [facility] IMPL[facility] Left: Ear [employer] 04/06/2020 510-122 / 510-122 / [id number] Description:Ear tubes came f rom the same package Tube Ventilation 5mm Carey Triune - [id number] Implanted:Qty: 1 on 11/05/2018 by Jordon Deng MD at [facility] IMPLANT Right: Ear [employer] 04/06/2020 510-122 / 510-122 / [id number] Description:Ear tubes came f rom the same package Insurance * Guarantor: [facility] Account Type Relation to Patient Date of Phone Billing Address Institutional Other [address] [place] [address] Care Teams Mallet Cutter Relationship Specialty Start Date End Date Yon Gutierrez MD [address] [address] PCP - General Family Medicine 06/23/23 Manda Singh MD Obstetrics & Gynecology 02/11/20 Malik Cates MD #[address] [id number] Consulting Physician Endocrinology 12/13/21 Ulices Marino MD #[address] [address] Consulting Physician Colon and Rectal Surgery 07/06/22 Georgina Fontenot, SUSTAINABILITY COACH, PORTFOLIO ARCHITECT [address] [place] [address] Nurse Practitioner Advanced Practice Nurse 09/25/24
--- OUTSIDE RECORDS SUMMARY | 2024-11-26 05:55 | XMS_ITS | Encounter Summary ---
Author Organization [facility] Address [address] [place] [address] Phone Care Team Providers Care Drug And Alcohol Treatment Specialist Name Role Phone Manda Singh MD Unavailable [phone] Robby Torres Primary Care Provider [phone] Scooter White DO Primary Care Provider Malik Cates MD Unavailable Ulices Marino MD Unavailable Yon Gutierrez MD Primary Care Provider Georgina Fontenot APRN, [facility] Unavailable [phone] Encounter Details Date Type Department Care Team (Late st Contact Info) Description 03/09/2020 [facility] [address] [place] [address] Walter Blake MD [address] [place] [address] Preop testing (Primary Dx) Social History Tobacco [...] COVID-19? Unable to assess 03/10/2020 1:32 PM RECORDER HELPER GRAVITY PROSPECTING documented as of this encounter Plan of Treatment Not on file documented as of this encounter Visit Diagnoses Diagnosis Preop testing- Primary Preoperative examination, unspecified documented in this encounter Additional Health Concerns Infection Onset Date Last Indicated Resolved Time COVID - 19 03/10/2020 03/10/2020 03/16/2020 11:4 0 AM RECORDER HELPER GRAVITY PROSPECTING Assessment Noted Time PHQ-9 Depression Total Score: 0 02/11/20 20 12:57 PM CDT documented as of this encounter Care Teams Drug And Alcohol Treatment Specialist Relationship Specialty Start Date End Date Robby Torres [address] [facility] [place] [address] PCP - General Family Medicine 02/11/20 03/16/21 Scooter White DO [facility] [place] [address] PCP - General Internal Medicine 03/17/21 06/22/23 Yon Gutierrez MD 2 [facility] , [facility] [address] [place] [address] PCP - General Family Medicine 06/23/23 Manda Singh MD Obstetrics & Gynecology 02/11/20 Malik Cates MD #2 [facility] [address] [place] [address] Consulting Physician Endocrinology 12/13/21 Ulices Marino MD [address] [address] Consulting Physician Colon and Rectal Surgery 07/06/22 Georgina Fontenot APRN, CORNER BEAD OPERATOR [address] [place] [address] Nurse Practitioner Advanced Practice Nurse 09/25/24 documented as of this encounter
--- OUTSIDE RECORDS SUMMARY | 2024-11-26 05:55 | XMS_ITS | Encounter Summary ---
Author Organization [facility] Address [address] [place] [address] Phone Care Team Providers Care Aircraft Engine Mechanic Overhaul Name Role Phone Manda Singh MD Unavailable [phone] Scooter White DO Primary Care Provider Malik Cates MD Unavailable Ulices Marino MD Unavailable Yon Gutierrez MD Primary Care Provider Georgina Fontenot APRN, MAIL DISTRIBUTOR Unavailable [phone] Encounter Details Date Type Department Care Team (Late st Contact Info) Description 07/26/2021 [facility] [address] [place] [address] Edita Garza, TRUNG, METAL MINER [address] [place] [address] Encounter for pre-employment examination Social [...] >=1.1 AI 07/26/2021 10:00 PM CDT [facility] Blood No Phlebotomy Charged / Unknown 07/26/2021 9:00 AM CDT 07/26/2021 2:15 PM CDT Narrative [facility] - 07/26/2021 10:00 PM CDT <= 0.8 Negative. No detectable VZV IgG antibody. 0.9 - 1.0 Equivocal >=1.1 Positive Antibody testing was performed by multiplex flow immunoassay on the BioPlex platform. Edita L Behrends DISTRICT CAPTAIN, METAL MINER IMMUNOLOGY ORDERABL ES Final Result Performing Organization Address [facility] de Phone Number [facility] [address] [place] [address], [place] * (ABNORMAL) RUBEOLA (MEASLES) IGG (07/26/2021 9:00 AM CDT) MEASLES AB IGG 0.7(L) >=1.1 AI 07/26/2021 10:00 PM CDT [facility] Blood No Phlebotomy Charged / Unknown 07/26/2021 9:00 AM CDT 07/26/2021 2:15 PM CDT Narrative [facility] - 07/26/2021 10:00 PM CDT <= 0.8 Negative. No detectable Measles IgG antibody. 0.9 - 1.0 Equivocal >=1.1 Positive Antibody testing was performed by multiplex flow immunoassay on the BioPlex platform. Edita L Behrends DISTRICT CAPTAIN, METAL MINER IMMUNOLOGY ORDERABL ES Final Result Performing Organization Address [facility] de Phone Number [facility] [address] [place] [address], [place] * RUBELLA I[facility]UNITY IGG (07/26/2021 9:00 AM CDT) [facility] Immune Immune, Invalid 07/26/2021 10:00 PM CDT [facility] Blood No Phlebotomy Charged / Unknown 07/26/2021 9:00 AM CDT 07/26/2021 2:15 PM CDT Narrative [facility] - 07/26/2021 10:00 PM CDT Antibody testing was performed by multiplex flow immunoassay on the BioPlex platform. us Edita Garza DISTRICT CAPTAIN, METAL MINER CHEMISTRY ORDERABLE S Final Result Performing Organization Address [facility] Co de Phone Number [facility] [address] [place] [address], [place] * MUMPS IGG (07/26/2021 9:00 AM CDT) Mumps Ab IgG 1.2 >=1.1 AI 07/26/2021 10:00 PM CDT [facility] Blood No Phlebotomy Charged / Unknown 07/26/2021 9:00 AM CDT 07/26/2021 2:15 PM CDT Narrative [facility] - 07/26/2021 10:00 PM CDT <= 0.8 Negative. No detectable Mumps IgG antibody. 0.9 - 1.0 Equivocal >=1.1 Positive Antibody testing was performed by multiplex flow immunoassay on the BioPlex platform. us Edita Garza DISTRICT CAPTAIN, METAL MINER IMMUNOLOGY ORDERABL ES Final Result Performing Organization Address [facility] Co de Phone Number [facility] [address] [place] [address], [place] * QUANTIFERON-TB GOLD PLUS (07/26/2021 9:00 AM CDT) NIL CONTROL 0.04 <8.01 IU/mL 07/28/2021 1:01 PM CDT [facility] TB ANTIGEN 1 0.00 <0.35 IU/mL 07/28/2021 1:01 PM CDT [facility] TB ANTIGEN 2 0.00 <0.35 IU/mL 07/28/2021 1:01 PM CDT [facility] MITOGEN CONTROL 9.64 >0.49 IU/mL 07/29/19 1:01 PM CDT [facility] INTEPRETATION TB NEGATIVE NEGATIVE, NEGATIVE (TB antigen response less than 25% of internal negative control value) 07/28/2021 1:01 PM CDT [facility] Comment:No immune response t o Mycobacterium tuberculosis antigens was noted. M. tuberculosis infection unlikely. Blood No Phlebotomy Charged / Unknown 07/26/2021 9:00 AM CDT 07/26/2021 2:15 PM CDT Narrative [facility] - 07/28/2021 1:01 PM CDT A [...] immunocompromised individuals. https://www.cdc.gov/tb/publications/guidelines/testing.htm us Edita L Behrends DISTRICT CAPTAIN, METAL MINER IMMUNOLOGY ORDERABL ES Final Result Performing Organization Address [facility] Co de Phone Number [facility] [address] [place] [address], [place] * HEPATITIS B SURFACE ANTIBODY (HBSAB) (07/26/2021 9:00 AM CDT) HEPATITIS B SURFACE ANTIBODY 8.33 mIU/mL [facility] ARCH [id number] B 07/27/2021 12:02 AM CDT [facility] Comment: Grayzone Range: >=8.00 to <=12.00 The immune status of the individual should be further assessed considering other factors, such as clinical status, follow-up testing, associated risk factors and the use of additional diagnostic information. Blood No Phlebotomy Charged / Unknown 07/26/2021 9:00 AM CDT 07/26/2021 2:15 PM CDT us Edita Garza DISTRICT CAPTAIN, METAL MINER CHEMISTRY ORDERABLE S Final Result Performing Organization Address [facility] Co de Phone Number [facility] [address] [place] [address], [place] documented in this encounter Visit Diagnoses Diagnosis Encounter for pre-employment examination Health examination of defined subpopulation documented in this encounter Additional Health Concerns Assessment Noted Time PHQ-9 Depression Total Score: 0 02/11/20 20 12:57 PM CDT documented as of this encounter Care Teams Aircraft Engine Mechanic Overhaul Relationship Specialty Start Date End Date Scooter White DO [address] [place] [address] [place] [address] PCP - General Internal Medicine 03/17/21 06/22/23 Yon Gutierrez MD [address] [place] [address] [address] PCP - General Family Medicine 06/23/23 Manda Singh MD Obstetrics & Gynecology 02/11/20 Malik Cates MD #[address] [address] Consulting Physician Endocrinology 12/13/21 Ulices Marino MD #[address] [address] Consulting Physician Colon and Rectal Surgery 07/06/22 Georgina Fontenot APRN, MAIL DISTRIBUTOR #[address] [place] [address] Nurse Practitioner Advanced Practice Nurse 09/25/24 documented as of this encounter
--- OUTSIDE RECORDS SUMMARY | 2024-11-26 05:55 | XMS_ITS | Encounter Summary ---
Author Organization [facility] Address [address] [facility] [place] [address] Care Team Providers Care Nail Professional Name Role Phone Scooter White DO Primary Care Provider [phone] Encounter Details Date Type Department Care Team (Late st Contact Info) Description 11/06/2018 Lab Requisition [facility] Care Pathology Lab [address] [place] [address] Cindi Hrerera MD [address] [place] [address] Enlarged lymph nodes Social History Tobacco Use Types Packs/Day Years Used Date Smoking Tobacco: Never Smokeless Tobacco: Never Alcohol Use Standard Drinks/Week Comments No 0 (1 standard drink = 0.6 oz pur e alcohol) Comments No Sex and Gender Information Value Date Recorded Sex Assigned at Not on file Legal Sex Female 1:08 PM INSPECTOR Gender Identity Not on file Sexual Orientation [...] AM CDT) Case Report Flow Cytometry Case: [id number] Authorizing Provider: Cindi Herrera MD Collected: 11/05/2018 11:02 AM Pathologist: Alexa Weinberg MD Received: 11/06/2018 02:01 PM Specimen: Cervical Lymph Node , Left 9 5:33 PM T [facility] PATHOLOGY LAB Final Diagnosis Lymph node, left cervical, flow cytometric immunophenotypic analysis: - No evidence of non-Hodgkin lymphoma. - See interpretation. 9 5:33 PM [facility] at 1733 CDT Flow [...] flow cytometry specimen is reviewed for manager quality improvement purposes. In summary, the left cervical lymph node specimen shows no evidence of a non-Hodgkin lymphoma. Correlation with additional clinical information and the concurrent biopsy specimen is required. KR 9 5:33 PM [facility] Flow Cytometry Results Differential Result Comment Flow Cell Count /uL [id number] Total Viability % 86.0 Lymphocytes % 97 Dim CD45 Region % 0 Monocytes % 1 Granulocytes % 1 9 5:33 PM [facility] Reason for test Enlarged lymph nodes 785.6 9 5:33 PM [facility] Client Specimen ID # [id number] 9 5:33 PM [facility] Number of markers 16 were performed. A Flow CD3 A Flow CD10 A Flow CD20 A Flow CD23 A Flow CD2 A Flow CD4 A Flow CD1a A Flow CD5 A Flow CD19 A Flow CD34 A Flow CD45 A Flow CD7 A Flow CD8 A Flow CD30 A [place]+CD19+ A Lambda+CD19+ 9 5:33 PM [facility] Disclaimer Test performed at [facility], [address] [place], [place], [address]. *The established laboratory minimum viability is 70%. [...] complexity clinical testing. 9 5:33 PM CDT [facility] PATH[facility] Embedded Images 9 5:33 PM CDT [facility] Pathology/Cytolo gy ENTIRE CERVICAL LYMPH NODE / Unknown 11/05/2018 11:02 AM CDT 11/06/2018 2:01 PM CDT Cindi Herrera MD LAB - PATHOLOGY/CYTOLOGY ORDERA BLE Final Result [facility] PATH[facility]Y [facility] [address] [facility] [place] [address], [facility] [phone] documented in this encounter Visit Diagnoses Diagnosis Enlarged lymph nodes Enlargement of lymph nodes documented in this encounter Care Teams Nail Professional Relationship Specialty Start Date End Date Scooter White DO PCP - General 03/16/22 documented as of this encounter
--- OUTSIDE RECORDS SUMMARY | 2024-11-26 05:55 | XMS_ITS | Encounter Summary ---
Author Organization [facility] Address [address] [place] [address] Phone Care Team Providers Care Board Of Education Secretary Name Role Phone Manda Singh MD Unavailable [phone] Robby Torres Primary Care Provider [phone] Scooter White DO Primary Care Provider Malik Cates MD Unavailable Ulices Marino MD Unavailable Yon Gutierrez MD Primary Care Provider Georgina Fontenot APRN, [facility] Unavailable [phone] Encounter Details Date Type Department Care Team (Late st Contact Info) Description 04/09/2020 Telephone [facility] [address] [address] [address] Saud Dalton MD [address] [place] [address] Social History Tobacco Use Types Packs/Day [...] COVID-19? No / Unsure 03/20/2020 6:06 AM RESPITE CARE PROVIDER documented as of this encounter Miscellaneous Notes * Telephone Encounter - Mahnaz Alaniz - 04/09/2020 2:50 PM CST Patient no showed her appointment, left voice message to call the office to reschedule. Sent out a no show letter. ITE CARE PROVIDER documented in this encounter Plan of Treatment Not on file documented as of this encounter Visit Diagnoses Not on filedocumented in this encounter Additional Health Concerns Assessment Noted Time PHQ-9 Depression Total Score: 0 02/11/20 20 12:57 PM CDT documented as of this encounter Care Teams Board Of Education Secretary Relationship Specialty Start Date End Date Robby Torres [address] [place] [address] PCP - General Family Medicine 02/11/20 03/16/21 Scooter White DO [address] [place] [address] [place] [address] PCP - General Internal Medicine 03/17/21 06/22/23 Yon Gutierrez MD [address] [place] [address] [address] PCP - General Family Medicine 06/23/23 Manda Singh MD Obstetrics & Gynecology 02/11/20 Malik Cates MD #[address] [address] Consulting Physician Endocrinology 12/13/21 Ulices Marino MD #[address] [address] Consulting Physician Colon and Rectal Surgery 07/06/22 Georgina Fontenot APRN, PHOTOCOMPOSING KEYBOARD OPERATOR [address] [place] [address] Nurse Practitioner Advanced Practice Nurse 09/25/24 documented as of this encounter
--- OUTSIDE RECORDS SUMMARY | 2024-11-26 05:56 | XMS_ITS | Data Portability ---
Author Organization [facility] Address [address] [place] [address] Care Team Providers Care Pan Washer Name Role Phone [facility] EDUIN HAMMONDS Nut Packer JILLIAN LAO Primary Care Provider Assessment Encounter [...] available OB ROUTINE 2024 02:30P M Peter Bryatn CNM Not available Not available Not available [...] non-str ess test 2024 025 [email or web address] [address], [address], [place], [address], 11/21/2024 23:22:39 US, obstetr ic, biophys ical profile + non-str ess test [address], [address], [place], [address], 11/20/2024 15:46:37 US, obstetr ic, biophys ical profile + non-str ess test [facility] [address], [address], [place], [address], 11/20/2024 16:51:34 non-str ess test 2024 025 [email or web address] [address], [address], [place], [address], 11/15/2024 09:25:55 US, obstetr ic, follow- up [address], [address], [address], [place], [address], 11/14/2024 20:41:29 US, obstetr ic, biophys ical profile + non-str ess test [address], [address], [address], [place], [address], 11/14/2024 20:41:29 US, obstetr ic, biophys ical profile + non-str ess test 2024 025 [email or web address] [address], [address], [place], [address], 11/14/2024 20:41:29 US, [facility] ic, follow- up 2024 025 [email or web address] [address], [address], [place], [address], 11/14/2024 20:41:29 Medication Orders None recorde d. [...] Refle x Susce ptibi lity ([facility]/ [facility] ) Speci men Sourc e: Vagin a/Rec gregoria Speci men Type: Vagin al/Re ctal Speci men Date: 025 1620 Resul t Date: 2024 1418 Resul t Statu s: Final resul t Abnor mal: Yes Resul ting Lab: [facility] [address] [facility] [address] Tel: CULTU RE ----- ----- ----- --- [...] antonio for these drugs . Not Available [facility] (Lab) [address], [place], [address], 11/18/2024 15:22:25 10/23/19 25 10/22/2024 US, obste tric, follo w-up No observ ation record ed. [email or web address] [address], [place], [address], 10/22/2024 17:16:15 10/23/19 25 10/22/2024 US, obste tric, follo w-up No observ ation record ed. [email or web address] [address], [place], [address], 10/22/2024 17:16:31 10/23/19 25 10/22/2024 US, obste tric, follo w-up No observ ation record ed. LANA [address], [facility], [place], [address], 10/29/2024 21:52:03 10/27/19 25 10/23/2024 non-s tress test No observ ation record ed. [email or web address] [address], [place], [address], 10/26/2024 08:57:06 10/29/19 25 10/23/2024 non-s tress test No observ ation record ed. [email or web address] [address], [place], [address], 10/28/2024 11:44:35 10/31/19 25 10/30/2024 US, ayo holley, bioph ysica l profi le + non-s tress test No observ ation record ed. [email or web address] [address], [place], [address], 10/30/2024 13:28:58 10/31/19 25 10/30/2024 US, obste tric, bioph ysica l profi le + non-s tress test No observ ation record ed. [email or web address] [address], [place], [address], 10/30/2024 13:29:11 10/31/19 25 10/30/2024 US, obste tric, follo w-up No observ ation record ed. [email or web address] [address], [place], [address], 10/31/2024 18:00:31 11/07/19 25 11/06/2024 US, obste tric, bioph ysica l profi le + non-s tress test No observ ation record ed. [email or web address] [address], [place], [address], 11/06/2024 17:48:20 11/07/19 25 11/06/2024 US, ayo tric, bioph ysica l profi le + non-s tress test No observ ation record ed. [email or web address] [address], [place], [address], 11/06/2024 17:48:32 11/07/19 25 11/06/2024 non-s tress test No observ ation record ed. [email or web address] [address], [place], [address], 11/06/2024 17:22:40 11/07/19 25 11/06/2024 US, obste tric, bioph ysica l profi le + non-s tress test No observ ation record ed. [email or web address] [address], [place], [address], 11/11/2024 12:03:01 11/10/19 25 11/09/2024 imagi ng/di agnos tic resul t No observ ation record ed. [address], [place], [address], 11/11/2024 17:42:12 11/13/1911/12/2024 non-s tress test No observ ation record ed. [address], [place], [address], 11/19/2024 08:29:48 11/14/1911/13/2024 non-s tress test No observ ation record ed. [email or web address] [address], [place], [address], 11/14/2024 14:45:58 11/14/1911/13/2024 US, obste tric, follo w-up No observ ation record ed. [email or web address] [address], [place], [address], 11/13/2024 18:14:47 11/14/19 25 11/13/2024 US, obste tric, bioph ysica l profi le + non-s tress test No observ ation record ed. [email or web address] [address], [place], [address], 11/13/2024 18:14:56 11/14/1911/13/2024 US, obstmickey tric, bioph ysica l profi le + non-s tress test No observ ation record ed. [email or web address] [address], [place], [address], 11/13/2024 18:15:06 11/14/1911/13/2024 US, obste tric, follo w-up No observ ation record ed. [email or web address] [address], [place], [address], 11/13/2024 18:15:15 11/14/19 25 11/13/2024 non-s tress test No observ ation record ed. [email or web address] [address], [place], [address], 11/13/2024 15:40:45 11/14/19 25 11/13/2024 US, obste tric, follo w-up No observ ation record ed. LANA [address], [place], [address], 11/17/2024 13:32:08 11/18/19 25 11/17/2024 non-s tress test No observ ation record ed. [address], [place], [address], 11/23/2024 15:05:43 11/21/19 25 11/20/2024 US, obste tric, bioph ysica l profi le + non-s tress test No observ ation record ed. [email or web address] [address], [place], [address], 11/20/2024 16:51:23 11/21/19 25 11/20/2024 US, obste tric, bioph ysica l profi le + non-s tress test No observ ation record ed. [email or web address] [address], [place], [address], 11/20/2024 16:51:34 11/21/19 25 11/20/2024 US, obste tric, bioph ysica l profi le + non-s tress test No observ ation record ed. [email or web address] [address], [place], [address], 11/20/2024 16:50:41 11/22/19 25 11/21/2024 non-s tress test No observ ation record ed. [address], [place], [address], 11/21/2024 17:10:50 11/22/19 25 11/19/2024 US, obste tric, bioph ysica l profi le No observ ation record ed. [address] [facility], [place], [address], 11/23/2024 14:28:58 11/22/19 25 11/21/2024 US, obste tric, bioph ysica l profi le No observ ation record ed. [address] [address], [place], [address], 11/23/2024 14:28:31 11/23/19 25 11/21/2024 non-s tress test No observ ation record ed. [address] [address], [place], [address], 11/23/2024 14:27:42 11/26/19 25 11/25/2024 imagi ng/di agnos tic resul t No observ ation record ed. [address] [address], [place], [address], 11/25/2024 05:09:39 Result Notes None recorded. 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 3 15:14:45 Hypothyr oidism 48589358 Completed Eli Bohnenstieh l null, [facility] 3 15:14:45 Antenata l care: history of infertil ity 573807212 Completed Eli Bohnenstieh l null, [facility] 3 15:14:46 Group B Streptoc occus carrier 0658700183 103 Completed bacteriu berta Eli Bohnenstieh l null, [facility] 3 15:14:45 Maternal obesity complica ting pregnanc y, childbir th and the puerperi um, antepart um 7893134444 07 Completed BMI 39- ante testing at 37w Eli alvarado null, [facility] 3 15:14:46 Chronic hyperten allison in obstetri c context 4974711 Completed procardi a , baseline labs, ASA Eli alvarado null, [facility] 3 15:14:46 Placenta circumva llata 2191155 Completed Serial growth u/s Eli alvarado null, [facility] 3 15:14:45 Pre-ecla mpsia 627896915 Completed Eli Gonzalez[facility]veyayana [facility], [facility] 3 15:14:45 Twin pregnanc y 13411809 Active 38 wk delivery antenata l testing @ 32wks per [facility] Schedule d rpt 08/27 ONLY Tabatha moreno, [facility] 5 12:20:16 Antenata l care: history of infertil ity 249758457 Active Peter Bryant CNM [address], [place], [address], [facility] 5 13:48:37 Past pregnanc y history of pre-ecla mpsia 5238857208 17841 Active bASA x2 Tabatha moreno, [facility] 5 17:10:40 Large for gestatio n age fetus 204235087 Active less then 30 sec shoulder dystocia Peter Bryant CNM [address], [place], [address], [facility] 5 13:51:09 Past pregnanc y history of shoulder dystocia 306813037 Active Peter Bryant CNM [address], [place], [address], [facility] 5 13:52:04 Chronic hyperten allison in obstetri c context 0395074 Active Peter Bryant CNM [address], [place], [address], [facility] 5 13:52:55 Palpitat ions 02024559 Active Holter monitor faxed to [facility] 07/29 Tabatha Green null, [facility] 5 14:05:23 Palpitat ions 94216934 Active Holter monitor faxed to [facility] 07/29 Tabatha Green null, [facility] 5 14:05:23 Migraine 68868757 Active magnesiu m, Excedrin tension, sumatrip tatum Tabatha Green null, [facility] 5 17:11:50 Migraine 78425288 Active magnesiu m, Excedrin tension, sumatrip tatum Tabatha Green null, [facility] 5 17:11:50 Finding of general energy 543745261 Completed 201807/28/2020 Fatigue; Recorded Elsewher e: No Locat ion: Chaya arevalo [facility] S ource: EHR Business Development Associate mark: N Practi ce ID: [id number] Emmanuel lable Time: 10:45:00 AM Messi Garcia MD [address], [place], [address], [facility] 1 15:00:00 Acute vaginiti s 04712090 Completed 201807/28/2020 Vaginiti s;Record ed Elsewher e: No Locat ion: [facility] S ource: EHR Business Development Associate mark: N Practi ce ID: [id number] Emmanuel lable Time: 10:45:00 AM Messi Garcia MD [address], [place], [address], [facility] 1 15:00:04 Removal of intraute rine device Completed 201807/28/2020 Encounte r for removal of IUD;Earl rded Elsewher e: No Locat ion: [facility] S ource: EHR Business Development Associate mark: N Practi ce ID: [id number] Emmanuel lable Time: 10:45:00 AM Messi Garcia MD [address], [place], [address], [facility] 1 15:00:08 Pregnanc y 88716368 Completed 202106/09/2022 Kenyetta moreno, [facility] 5 16:03:06 Abnormal cervical Papanico laou smear 423562589 Active 2023 3 lgsil HPV high risk 1 ascus HPV high risk Kenyetta moreno, [facility] 4 11:59:57 Herpes simplex 68396939 Active 2024 Kenyetta moreno, [facility] 5 16:40:53 Human papillom a virus infectio n 691639240 Active 2024 Kenyetta moreno, [facility] 5 16:40:59 Endometr iosis (clinica l) 833037327 Active 2024 Kenyetta moreno, [facility] 5 16:41:22 Pregnanc y 62254126 Active 2024 Kenyetta moreno, [facility] 16:03:06 Glucose toleranc e test outside referenc e range 456427624 Active 2024 checking blood sugars for 2 week instead for doing 3 hour Kenyetta moreno, [facility] 17:53:21 Glucose toleranc e test outside referenc e range 548012045 Active 2024 5 checking blood sugars for 2 week instead for doing 3 hour Kenyetta moreno, [facility] 17:53:21 Gestatio nal diabetes mellitus 72666460 Active 2024 Kenyetta moreno [facility] 11:47:25 Gestatio nal diabetes mellitus 07398691 Active 2024 Kenyetta [facility] 11:47:25 Problem Notes None recorded. Procedures Surgical History Date Name Laterality Status Provider Name and Address Organization Details Recorded Time 024 Laparoscopy completed Kenyettaelif Solano [facility] 05/10/2024 16:42:07 024 Date of Last Pap Smear completed Kenyetta Solano [facility] 08/16/2023 12:00:08 024 procedure on ear completed Kenyetta Solano [facility] 08/16/2023 12:01:09 023 Colposcopy completed Peter Bryant CNM [address], [place], [address], [facility] 06/15/2022 16:59:00 023 Colposcopy completed Kenyettaelif Solano [facility] 06/15/2022 16:38:21 023 Colposcopy completed Kenyetta Solano [facility] 06/15/2022 16:38:49 022 intrauterine artificial insemination completed [facility] 06/26/2021 09:20:58 021 intrauterine artificial insemination completed [facility] 06/17/2021 12:15:01 021 intrauterine artificial insemination completed [facility] 06/17/2021 12:14:55 021 intrauterine artificial insemination completed [facility] 06/17/2021 12:14:45 021 intrauterine artificial insemination completed [facility] 06/17/2021 12:14:39 021 LAPAROSCOPY, DIAGNOSTIC (SURG) completed [facility] 08/19/2020 14:04:12 020 completed [facility] 10/01/2020 16:23:53 020 Colonoscopy completed [facility] 01/22/2021 10:59:09 019 procedure on neck completed [facility] 12/25/2019 11:25:51 019 hemorrhoidectomy completed [facility] 12/25/2019 11:24:57 016 cholecystectomy completed [facility] 07/16/2021 17:21:15 010 Appendectomy completed [facility] 12/25/2019 11:24:44 Imaging Results None recorded. Procedure Notes None recorded. Medical Equipment None Reported. Allergies Allergen ID Allergen Name Allergen Category Reaction Reaction Severity Criticality Documentation Date Start Date Code Code System Note Provider Name and Address Organization Details Recorded Time 35261 prednison e medicatio n hives Not available Not available 07/03/2024 8640 RxNorm Peter Bryant CNM [address], [place], [address] , [facility] 5 09:52:22 Medications Name Sig Start [...] Pregnyl 10,000 unit intramusc ular solution Inject 72223 units every day by intramus cular route [...] jose antonio Cevallos e: Yes Loca tion: Sakshiyumiko arevalo [facility] M odify By: [email or web address] z Encoun [...] VAIL INJECTIO N INTO RIGHT HIP LOT [id number] [id number] 12/2021 Not Available Not Available Not [...] Address Organization Details Last Updated DateTime 11/13/2024 982379.17349 g 127/89 mm[Hg] Sun Babcock [facility] 11/13/2024 15:38:06 Date Recorded Body height Body mass index (BMI) Body weight Systolic And Diastolic Provider Name and Address Organization Details Last Updated DateTime 11/20/2024 161.29 cm 42.4 kg/m2 235518.95 g 133/84 mm[Hg] Pretty Werner [facility] 11/20/2024 14:47:38 Social History Question Answer Notes LastModified by Organizat ion Details LastModified Time Tobacco Smoking Status Never Smoker Althea Holguin tiffanie [facility] 06/15/2022 15:31:26 Do You Have An Advance Directive? No Information n ot available 07/28/2020 If You Are , What Was Your Level Of Alcohol Consumption Prior To ? None [email or web address] Information not available 06/15/2022 Are You Blind [...] Type Of Diet Are You Following? REGULAR [email or web address] Information n ot available 08/19/2020 What Is The Highest Grade Or Level Of School You Have Completed Or The Highest Degree You Have Received? [id number] Information not available 07/28/2020 Are There Any Guns Present In Your Home? No Information not available 07/28/2020 What Was The Date Of Your Most Recent Tobacco Screening? 10/23/2024 [email or web address] Information not available 10/23/2024 Have You Ever Been Counseled For Unhealthy Alcohol Use? No [email or web address] Information not available 06/15/2022 Do You Use [...] other forms of tobacco or nicotine? No [email or web address] Information not available 06/15/2022 What is your level of alcohol consumption? Occasional [email or web address] Information not available 12/25/2019 Do you or have you ever used smokeless tobacco? Never used smokeless tobacco [email or web address] Information not available 06/15/2022 Are you able to walk? YESWOREST [email or web address] Information not available 08/19/2020 Are you able to care for yourself? 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 No [email or web address] Information not available 06/15/2022 Do you or have you ever used e-cigarettes or vape? Never used electronic cigarettes Information not available 06/15/2022 What is your exercise level? Occasional [email or web address] Information not available 12/25/2019 Mental Status Question Answer Note LastModified by Organization D etails LastModified Time Do you feel stressed (tense, restless, nervous, or anxious, or unable to sleep at night)? [id number] [email or web address] Information not available 08/19/2020 Family History Relationship Description Onset Age of this Age Resolved Age Notes LastModified by Organization Details LastModified Time Maternal Grandmother Disorder of thyroid gland [email or web address] Not available 01/26 16:14:56 Mother Female infertility Not available 08/2024 13:51:15 Mother Disorder of thyroid gland [email or web address] Not available 01/26 16:14:56 Father Malignant tumor of pancreas [email or web address] Not available 2024 13:51:15 Brother Malignant neoplasm of prostate [email or web address] Not available 2024 13:51:15 Paternal Grandmother Malignant tumor of breast [email or web address] Not available 01/26 16:14:56 Paternal Grandmother Malignant neoplasm of lung [email or web address] Not available 01/26 16:14:56 Medical History Condition [...] SNOMED-CT Code Diagnosis ICD10 Code Diagnosis Note [id number] Peter Bryant CNM [place] [address] [address] 12/25/2019 10:57:08 12/25/2019 12:38:39 Breast infection 793986600 N61.0 Trying to conceive 00370 9001 Z31.9 [id number] Messi Garcia MD [place] [address] [address] 06/30/2020 12:07:39 06/30/2020 12:55:49 Pain in pelvis 13091258 R10.2 [id number] MD Rhina Zheng [address],[facility] [place] [address] 07/02/2020 12:31:33 07/02/2020 16:54:32 Pain in pelvis 87487829 R10.2 This patient is a 25-year-ol d [...] informed consent process. To check fallopian tubes. [id number] MD Rhina Zheng [address] [address] 07/23/2020 10:07:53 07/23/2020 10:09:56 [id number] Messi Garcia MD [place] [address],[place] [address] 07/28/2020 13:53:59 07/28/2020 15:27:02 Chest pain 41168788 R07.9 this patient is 25-year-ol d female [...] this patient s visit, including available hand instructor extension work upon arrive, temperatur e check and being asked a series of screening questions. All staff wore face coverings during this encounter, as well as provided additional cleaning and sanitizing of all surfaces, including countertop s, pens, chairs, door handles, light switches, etc, prior to and following the patient s visit. [id number] MD Rhina Zheng [address],[facility] [place] [address] 08/04/2020 14:07:07 08/04/2020 14:50:37 Abnormal uterine bleeding 0646485406 9100 N93.9 this patient is a 25-year-ol [...] ovulation [place] [id number] Peter Bryant CNM [place] [address],[place] [address] 08/19/2020 13:46:09 08/19/2020 15:50:34 Trying to conceive 014175236 Z31.9 [id number] Messi Garcia MD [place] [address] [place] [address] 09/02/2020 11:05:51 09/02/2020 12:44:09 Female infertility 2182075 N97.9 78561 [facility] [address] [address] 09/04/2020 08:09:36 09/04/2020 09:29:50 Artificial insemination 96782253 Z31.83 31042 [facility] [address] [place] [address] 09/03/2020 18:20:49 09/03/2020 22:54:04 Trying to conceive 494337672 Z31.9 [id number] Messi Garcia MD [place] [address] [place] [address] 09/09/2020 17:51:09 09/09/2020 18:07:37 Pain in pelvis 28763000 R10.2 This patient is a 25-year-ol d [...] informed consent process. To check fallopian tubes. [id number] Messi Garcia MD [place] [address],[place] [address] 09/22/2020 16:45:48 09/22/2020 17:17:04 Pain in pelvis 52658364 R10.2 This patient is a 25-year-ol d [...] informed consent process. To check fallopian tubes. [id number] Messi Garcia MD [place] [address],[place] [address] 10/01/2020 14:59:50 10/01/2020 15:16:34 Female infertility 3640934 N97.9 80119 [facility] [address],[place] [address] 10/01/2020 16:21:54 10/01/2020 16:27:38 Trying to conceive 430758183 Z31.9 22709 Peter Bryant CNM [place] [address],[place] [address] 10/02/2020 08:19:49 10/02/2020 09:46:38 Artificial insemination 29154818 Z31.83 [id number] Messi Garcia MD [place] [address] [address] 10/14/2020 15:52:51 10/14/2020 16:51:20 Pain in pelvis 46240071 R10.2 This patient is a 25-year-ol d [...] informed consent process. To check fallopian tubes. [id number] [facility] [address],[facility] [place] [address] 10/21/2020 17:06:20 10/21/2020 17:33:05 Hypothyroidism 31586897 E03.9 check labs, will adjust meds if needed [id number] Messi Garcia MD [place] [address] [address] 11/30/2020 13:48:01 11/30/2020 13:52:51 Pain in pelvis 03752774 R10.2 This patient is a 25-year-ol d [...] informed consent process. To check fallopian tubes. [id number] Messi Garcia MD [place] [address] [address] 12/01/2020 14:00:56 12/01/2020 15:31:30 Pain in pelvis 07000308 R10.2 this patient is a 25-year-ol d [...] face-to-fa ce discussing this very complex topic. [id number] Peter Bryant CNM [address] [place] [address] 01/22/2021 09:15:38 01/22/2021 10:35:42 Female infertility 9833222 N97.9 Gynecologi c examination 57355210 Z01.419 [id number] Messi Garcia MD [place] [address] [place] [address] 02/09/2021 09:19:46 02/09/2021 10:04:48 Female infertility 2002602 N97.9 42023 [facility] [address] [place] [address] 02/09/2021 14:29:50 02/09/2021 16:50:58 Trying to conceive 847025748 Z31.9 [id number] Peter Bryant CNM [address] [place] [address] 02/10/2021 09:41:42 02/10/2021 10:12:15 Female infertility 0842443 N97.9 Artificial insemination 85508753 Z31.83 [id number] Messi Garcia MD [place] [address] [address] 04/28/2021 14:43:43 04/28/2021 15:19:59 Female infertility 6575499 N97.9 08914 Peter Bryant [facility] [address],[place] [address] 04/28/2021 18:59:10 04/29/2021 09:31:07 Trying to conceive 461130340 Z31.9 [id number] Peter [facility] [address],[place] [address] 1 04/29/2021 09:31:15 04/29/2021 10:19:12 Artificial insemination 98682507 Z31.83 [id number] Nalini Salomon [facility] [address],[place] [address] 1 05/25/2021 11:53:11 05/25/2021 16:54:31 Reduced libido 4732059 R68.82 Today we discussed trial of Wellbutrin [...] this patient s visit, including available hand instructor extension work upon arrive, temperatur e check and being asked a series of screening questions. All staff wore face coverings during this encounter, as well as provided additional cleaning and sanitizing of all surfaces, including countertop s, pens, chairs, door handles, light switches, etc, prior to and following the patient s visit. [id number] Messi Garcia MD [facility] [address],[place] [address] 1 06/22/2021 14:38:59 06/23/2021 09:16:44 Body mass index 30+ - obesity 963341838 Z68.37 This patient is a 26-year-ol d [...] on the dietitian schedule. Gynecologi c examination 46261542 Z01.419 Abnormal u terine bleeding 7767570590 9100 N93.9 [id number] Messi Garcia MD [facility] [address],[place] [address] 1 06/25/2021 09:04:11 06/25/2021 09:23:27 Female infertility 0567307 N97.9 [id number] Peter Bryant CNM [facility] [address],[place] [address] 1 06/25/2021 18:38:25 06/26/2021 09:09:27 Trying to conceive 503784987 Z31.9 [id number] Peter Bryant CN[facility] [address],[place] [address] 1 06/26/2021 09:13:57 07/01/2021 15:54:18 Artificial insemination 96278967 Z31.83 [id number] Messi Garcia MD [facility] [address],[place] [address] 1 07/27/2021 17:11:55 07/27/2021 18:06:16 Uncertain viability of 747725432 O36.80X0 Z3A.01 [id number] Messi Garcia MD [facility] [address],[place] [address] 1 08/05/2021 09:17:05 08/05/2021 10:16:25 Abdominal pain in early 856029360 Z33.1 Z3A.01 [id number] Messi Garcia MD [facility] [address],[place] [address] 1 08/18/2021 10:17:54 08/18/2021 11:20:00 [id number] [facility] [address],[place] [address] 1 08/18/2021 10:18:19 08/19/2021 12:30:57 Amenorrhea 29786400 Z31.89 Z31.83 [id number] Pretty Cotton MD [facility] [address],[place] [address] 1 09/10/2021 14:50:18 09/10/2021 15:34:33 screening 598228574 Z36.82 [id number] Pretty Cotton MD [facility] [address],[place] [address] 1 09/10/2021 14:50:57 09/13/2021 15:22:01 Routine care 028146437 Z34.91 care: history of infertility 122421134 O09.[address] reptococcus carrier 1867082478 103 Z22.330 Hypothyroidism 43281498 E03.9 Maternal o besity complicating , childbirth and the puerperium, antepartum 4887380939 07 O99.211 [id number] MD Rhina Sanchez [address],[place] [address] 1 09/27/2021 17:43:48 09/28/2021 10:23:00 Chronic hypertension complicating AND/OR reason for care during 72723546 O16.9 [id number] Pretty Cotton MD [facility] [address],[place] [address] 1 10/08/2021 14:49:27 10/08/2021 16:16:40 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 4769730 O16.9 care: history of infertility 304892282 O09.01 Hypothyroidism 78055194 E03.9 [id number] Messi Garcia MD [facility] [address],[place] [address] 1 11/03/2021 16:29:49 11/03/2021 18:37:35 screening 081253553 Z36.3 Z3A.20 [id number] [facility] [address],[place] [address] 1 11/03/2021 16:30:15 11/03/2021 18:37:10 Routine care 635274957 Z34.91 Anxiety 26134163 F41.9 [id number] Messi Garcia MD [facility] [address],[place] [address] 1 12/03/2021 15:10:07 12/03/2021 16:20:49 Hypothyroidism 22635942 E03.9 [id number] Messi Garcia MD [facility] [address],[place] [address] 1 12/03/2021 15:10:54 12/03/2021 17:08:45 Placenta circumvallata 6225013 O43.112 Z36.2 Z3A.24 [id number] Messi Garcia MD [facility] [address],[place] [address] 1 12/29/2021 15:21:10 12/29/2021 16:01:38 Placenta circumvallata 8799002 O43.113 O10.013 O99.213 Z3A.28 [id number] [facility] [address],[place] [address] 1 12/29/2021 15:22:44 12/29/2021 17:01:50 Routine care 649265225 Z34.91 - induced hypertension 23765872 O13.9 [id number] Messi Garcia MD [facility] [address],[place] [address] 1 01/13/2022 13:47:29 01/13/2022 14:39:17 Medical examination for suspected condition 377502455 Z03.79 [id number] Messi Garcia MD [facility] [address],[place] [address] 1 01/13/2022 13:47:50 01/13/2022 15:53:18 Routine care 909565692 Z34.83 [id number] Pretty Cotton MD [facility] [address],[place] [address] 1 01/17/2022 16:24:29 01/17/2022 18:16:59 Threatened premature labor - not delivered 683095922 O47.9 [id number] Pretty Cotton MD [facility] [address],[place] [address] 1 01/17/2022 16:35:15 01/19/2022 15:28:55 Threatened premature labor - not delivered 594998394 O47.9 [id number] Messi Garcia MD [facility] [address],[place] [address] 1 01/26/2022 14:52:57 01/26/2022 15:27:45 Chronic hypertension complicating AND/OR reason for care during 28142276 O16.9 [id number] Messi Garcia MD [facility] [address],[place] [address] 1 01/26/2022 14:54:57 01/26/2022 16:22:26 Placenta circumvallata 1586289 O43.113 Z3A.32 O10.013 [id number] Peter Bryant, [facility] [address],[place] [address] 1 01/26/2022 14:55:32 01/26/2022 16:39:21 Routine care 276165691 Z34.91 [id number] MD Rhina Zheng [address],[place] [address] 1 02/02/2022 16:59:59 02/02/2022 17:58:36 Maternal obesity complicating , childbirth and the puerperium, antepartum 1566312447 07 O99.213 [id number] Messi Garcia MD [facility] [address],[place] [address] 1 02/02/2022 17:00:19 02/02/2022 18:17:03 Chronic hypertension complicating AND/OR reason for care during 57290693 O10.013 Z3A.33 [id number] [facility] [address],[place] [address] 1 02/02/2022 17:00:45 02/02/2022 18:50:24 Routine care 081805987 Z34.91 [id number] Messi Garcia MD [facility] [address],[place] [address] 1 02/09/2022 16:53:15 02/09/2022 17:49:24 Maternal obesity complicating , childbirth and the puerperium, antepartum 6538280068 07 O99.213 [id number] Messi Garcia MD [facility] [address],[place] [address] 1 02/09/2022 16:53:36 02/09/2022 18:15:36 Chronic hypertension complicating AND/OR reason for care during 90297485 O10.013 O99.213 Z3A.34 [id number] [facility] [address],[place] [address] 1 02/09/2022 16:54:04 02/09/2022 18:25:27 Routine care 858074851 Z34.91 [id number] Messi Garcia MD [facility] [address],[place] [address] 1 02/16/2022 17:00:10 02/16/2022 17:56:48 Chronic hypertension complicating AND/OR reason for care during 07246451 O10.013 O99.213 Z3A.34 [id number] Messi Garcia MD [facility] [address],[place] [address] 1 02/16/2022 17:00:39 02/16/2022 18:07:43 Chronic hypertension complicating AND/OR reason for care during 58558189 O10.013 Z3A.35 O99.213 [id number] [facility] [address],[place] [address] 1 02/16/2022 17:01:03 02/16/2022 18:20:17 Routine care 630920542 Z34.91 [id number] Messi Garcia MD [facility] [address],[place] [address] 1 02/18/2022 15:23:24 02/18/2022 15:53:12 Reduced movement 921496456 O36.8199 [id number] [facility] [address],[place] [address] 1 02/23/2022 16:45:10 02/23/2022 18:18:35 Routine care 042318939 Z34.91 Large for gestation age fetus 907423064 O36.63X0 [id number] Messi Garcia MD [facility] [address],[place] [address] 1 02/23/2022 16:42:55 02/23/2022 17:12:22 Chronic hypertension complicating AND/OR reason for care during 57492232 O10.013 Z3A.35 O99.213 [id number] Messi Garcia MD [facility] [address],[place] [address] 1 02/23/2022 16:43:28 02/23/2022 17:56:35 Chronic hypertension complicating AND/OR reason for care during 68607046 O10.013 O99.213 Z3A.36 [id number] Pretty Cotton MD [facility] [address],[place] [address] 1 03/16/2022 14:15:55 03/17/2022 16:13:50 Pain in pelvis 78298988 R10.2 [id number] Messi Garcia MD [facility] [address],[place] [address] 1 03/17/2022 13:34:56 03/17/2022 14:02:57 Pain in pelvis 80360118 R10.2 this patient is a 25-year-ol d [...] face-to-fa ce discussing this very complex topic. [id number] Messi Garcia MD [facility] [address],[place] [address] 1 03/17/2022 13:35:31 03/18/2022 13:49:15 Pain in pelvis 67346407 R10.2 patient is a 27-year-ol d female [...] We spent over 20 minutes face-to-fa ce. 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 restart lexapro, to ed if any suicidal thoughts, reviewed se risks and benefits f/u 6 week med check if unavailabl e can do by phone Low grade squamous intraepithelial lesion on cervical Papanicolaou smear 9446599690 9105 R87.612 f/u pending pathology [id number] [facility] [address],[place] [address] 1 08/16/2023 11:38:58 08/16/2023 13:55:15 Pain in pelvis 58759542 R10.2 also start pelvic floor pT Gynecologi c examination 02549635 Z01.419 [id number] Messi Garcia MD [facility] [address],[place] [address] 1 08/22/2023 11:28:17 08/22/2023 12:06:29 Pain in pelvis 00541107 R10.2 patient is a 27-year-ol d female [...] We spent over 20 minutes face-to-fa ce. [id number] Messi Garcia MD [facility] [address],[place] [address] 1 04/23/2024 09:16:05 04/23/2024 10:09:58 screening 546633623 Z36.87 O30.049 Z3A.01 [id number] Messi Garcia MD [facility] [address],[place] [address] 1 05/10/2024 15:16:46 05/10/2024 16:01:31 [id number] [facility] [address],[place] [address] 1 05/10/2024 15:17:03 05/10/2024 16:51:44 Amenorrhea 47156145 Z31.89 Z31.83 Dichorioni c diamniotic twin 025332133 O30.049 reviewed US plan us at 12 weeksnipt at 10 weeks with labsawait pap until pp visitrevie wed precaution s and educationh x preeclamps ia without severe features last [id number] Messi Garcia MD [facility] [address],[place] [address] 1 05/21/2024 11:09:17 05/21/2024 12:05:12 Threatened miscarriage 83569038 O20.0 O30.041 Z3A.09 [id number] Messi Garcia MD [facility] [address],[place] [address] 1 05/23/2024 17:26:08 05/24/2024 10:31:39 Threatened miscarriage 56835533 O20.0 O30.041 Z3A.09 [id number] Messi Garcia MD [facility] [address],[place] [address] 1 05/23/2024 18:31:17 05/24/2024 10:33:13 Pain in pelvis 91667157 R10.2 this patient is a 29-year-ol d [...] is to contact us if pain worsens. [id number] Messi Garcia MD [facility] [address],[place] [address] 1 05/29/2024 10:21:34 05/29/2024 11:12:31 condition affecting obstetrical care of mother 635474619 O36.8910 Z3A.10 [id number] Messi Garcia MD [facility] [address],[place] [address] 1 06/03/2024 16:41:37 06/04/2024 14:32:45 screening 352108497 Z36.82 Z3A.11 [id number] [facility] [address],[place] [address] 1 06/05/2024 14:45:02 06/06/2024 16:44:18 Nausea and vomiting 11679748 R11.2 Migraine 66515158 G43.90 9 Routine an tenatal care 057883282 Z34.91 Twin 81137378 O30.009 [id number] Messi Garcia MD [facility] [address],[place] [address] 1 06/12/2024 17:23:11 06/12/2024 18:08:31 Medical examination for suspected condition 891773159 Z03.72 Z3A.12 [id number] Messi Garcia MD [facility] [address],[place] [address] 1 07/01/2024 16:17:41 07/01/2024 17:36:13 Dichorionic diamniotic twin 111992099 O30.042 Z3A.15 [id number] [facility] [address],[place] [address] 1 07/03/2024 09:17:02 07/03/2024 09:55:31 Gestation period, 15 weeks 0453609 Z3A.15 [id number] ALEC WILKINSON MD [facility] [address],[place] [address] 1 07/08/2024 10:41:29 07/08/2024 11:38:56 Pruritic rash 14838046 L28.2 Dichorioni c diamniotic twin 099130126 O30.049 Chronic hy pertension complicating AND/OR reason for care during 43916240 O16.9 Gestation period, 16 weeks 88351524 Z3A.16 [id number] Messi Garcia MD [facility] [address],[place] [address] 1 07/12/2024 10:38:28 07/12/2024 11:50:01 [id number] [facility] [address],[place] [address] 1 07/31/2024 16:35:21 08/01/2024 09:45:58 Gestation period, 19 weeks 26046917 Z3A.19 Dichorioni c diamniotic twin 755913528 O30.049 Gastroesop hageal reflux disease 774848506 K21.9 [id number] [facility] [address],[place] [address] 1 08/09/2024 12:12:22 08/09/2024 14:11:25 Pain in pelvis 29219159 R10.2 start physical therapy [id number] Messi Garcia MD [facility] [address],[place] [address] 1 08/22/2024 12:06:07 08/22/2024 13:36:01 Dichorionic diamniotic twin 059436095 O30.042 O36.8120 Z3A.23 [id number] [facility] [address],[place] [address] 1 08/28/2024 14:16:16 08/30/2024 10:02:02 [id number] [facility] [address],[place] [address] 1 08/29/2024 09:57:22 08/30/2024 10:26:31 Gestation period, 24 weeks 228310982 Z3A.24 [id number] Messi Garcia MD [facility] [address],[place] [address] 1 09/18/2024 11:30:12 09/18/2024 12:33:22 Dichorionic diamniotic twin 046022714 O30.042 O99.891 Z3A.26 [id number] [facility] [address],[place] [address] 1 09/27/2024 14:05:42 09/27/2024 14:47:06 Gestation period, 28 weeks 78615946 Z3A.28 [id number] Messi Garcia MD [facility] [address],[place] [address] 1 10/09/2024 13:51:09 10/09/2024 15:10:27 Dichorionic diamniotic twin 532298686 O30.043 O32.1XX2 Z36.2 Z3A.29 [id number] [facility] [address],[place] [address] 1 10/09/2024 13:51:24 10/09/2024 16:46:13 Gestation period, 29 weeks 83392484 Z3A.29 [id number] Messi Garcia MD [facility] [address],[place] [address] 1 10/22/2024 11:49:29 10/22/2024 13:06:50 Dichorionic diamniotic twin 859853671 O30.043 O24.410 O13.3 Z3A.31 [id number] [facility] [address],[place] [address] 1 10/23/2024 14:57:19 10/27/2024 19:34:15 Twin 13258338 O30.009 [id number] [facility] [address],[place] [address] 1 10/23/2024 14:57:44 10/23/2024 16:42:04 Gestation period, 31 weeks 68231147 Z3A.31 [id number] Messi Garcia MD [facility] [address],[place] [address] 1 10/30/2024 11:49:15 10/30/2024 12:53:32 Dichorionic diamniotic twin 225001704 O30.043 O24.410 O16.3 Z3A.32 [id number] [facility] [address],[place] [address] 1 10/30/2024 11:49:41 10/30/2024 13:44:54 Gestation period, 32 weeks 5339863 Z3A.32 [id number] Messi Garcia MD [facility] [address],[place] [address] 1 11/06/2024 14:02:15 11/06/2024 15:08:32 Dichorionic diamniotic twin 835635812 O30.043 O24.414 O24.410 [id number] ALEC WILKINSON MD [facility] [address],[place] [address] 1 11/06/2024 14:02:26 11/06/2024 17:33:51 Chronic hypertension complicating AND/OR reason for care during 17156447 O10.919 [id number] [facility] [address],[place] [address] 1 11/06/2024 14:02:37 11/06/2024 16:26:16 Gestation period, 33 weeks 63484415 Z3A.33 Dichorioni c diamniotic twin 989996296 O30.043 [id number] Messi Garcia MD [facility] [address],[place] [address] 1 11/13/2024 13:58:59 11/13/2024 15:10:18 Dichorionic diamniotic twin 847872425 O30.043 O24.410 O16.3 O99.213 Z3A.34 [id number] [facility] [address],[place] [address] 1 11/13/2024 13:59:12 11/13/2024 15:41:29 Chronic hypertension complicating AND/OR reason for care during 75157765 O10.919 [id number] [facility] [address],[place] [address] 1 11/13/2024 13:59:25 11/13/2024 16:05:11 Gestation period, 34 weeks 09044216 Z3A.34 [id number] Messi Garcia MD [facility] [address],[place] [address] 1 11/20/2024 13:42:52 11/20/2024 14:50:53 Dichorionic diamniotic twin 983779078 O30.043 O24.410 Z3A.35 [id number] [facility] [address],[place] [address] 1 11/20/2024 13:43:10 11/21/2024 12:11:29 Past history of gestational hypertension 720070959 Z87.59 [id number] [facility] [address],[place] [address] 1 11/20/2024 13:43:30 11/20/2024 16:02:36 Gestation period, 35 weeks 46983958 Z3A.35 Health Concerns Section Related Observation LastModified by Organization Detai ls LastModified Time None Recorded Concern Status LastModified by Organization Details LastModified Time None Recorded Advance Directives Directive N: Payers Insurance Date Sequence Insurance Name Policy Number Policy Steele Covered Member ID Steele Member ID Guarantor Name 05/10/2024 2 [facility] Chjc Xbb [id number] Yessica M Corzine 05/18/2021 1 [facility] [id number] Luis Antonio Jae Corzine [id number] Yessica M Corzine 06/15/2022 *SELF PAY* Me kartik M Corzine 08/31/2020 2 [facility] Luis Antonio Corzine [id number] Yessica M Corzine 08/31/2020 3 [facility] Jospeh Corzine [id number] Yessica M Corzine 09/04/2020 2 [facility] Luis Antonio Corzine [id number] Yessica M Corzine 09/23/2020 2 [facility] Jospeph Corzine [id number] Yessica M Corzine 11/24/2024 1 [facility] [id number] Luis Antonio A Corzine [id number] Yessica M Corzine 05/10/2024 3 [facility] Bfnkxd Vxbn FB [id number] Yessica M Corzine OBGyn Episode Ob Episode Information Episode Created Date Number of Fetuses Patient Bloodtype Patient rh Status Prepregnancy Weight lbs Domestic Partner Domestic Partner Phone Father Name Director Volunteer Services Status 12/25/19 20 1 CLOSED Fetus Data [...] Partner Domestic Partner Phone Father Name Director Volunteer Services Status 12/25/19 20 1 CLOSED Fetus Data [...] Partner Domestic Partner Phone Father Name Director Volunteer Services Status 09/11/19 22 1 A Positive 221 CLOSED Fetus Data First Name Last Name Admitted to NICU Weight (g) Sex Living Outcome Pediatric Complications Fetus ID Race Codes Race Delivery Type 4224.07 55 M true Full Term [id number] Vaginal Delivery Problems Problem Notes TSH WNL/A+/Ha1c/CBC WNL Problem Name Start Date End Date Resolution Snomed Code Not e Hypothyroidism 39193266 care: history of infertility 779449382 Group B Streptococcus carrier 0094454057942 bacteriuria Maternal obesity complicating , childbirth and the puerperium, antepartum 976618345210 BMI 39- ante testing at 37w 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 4656036 maia ellsworth , baseline labs, ASA Placenta circumvallata 9104541 Serial growth u/s Pre-eclampsia 413255029 Darren Calculation Initial Darren Date Initial Exam [...] Date Ultra Sound Latest Days Gestation 0 [email or web address] 09/13/2021 03/23/20 22 0 Pre-erick Flowsheet Flowsheet Date 09/10/2021 Mckinney Score Blood Edema Fundus Height Fundus Units Glucose Ketones Leukocytes Nitrite Labor Signs Protein Cervic Dilation Cervic Effacement Cervic Station neg none Type Weight in lbs Pre/Post Dialysis Refused Weight 225.441975897235 BP Diastolic BP Location Tested BP Systolic [...] Weight in lbs Pre/Post Dialysis Refused Weight 226.352575208322 BP Diastolic BP Location Tested BP Systolic [...] Weight in lbs Pre/Post Dialysis Refused Weight 224.432880631709 BP Diastolic BP Location Tested BP Systolic [...] Weight in lbs Pre/Post Dialysis Refused Weight 230.613316752860 BP Diastolic BP Location Tested BP Systolic [...] Weight in lbs Pre/Post Dialysis Refused Weight 234.097293744292 BP Diastolic BP Location Tested BP Systolic [...] Weight in lbs Pre/Post Dialysis Refused Weight 235.184714088784 BP Diastolic BP Location Tested BP Systolic [...] Weight in lbs Pre/Post Dialysis Refused Weight 239.256704913984 BP Diastolic BP Location Tested BP Systolic [...] Weight in lbs Pre/Post Dialysis Refused Weight 240.959630338324 BP Diastolic BP Location Tested BP Systolic [...] 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 bpp 8, rec chiropractor, ptl precautions f/u next week [...] Weight in lbs Pre/Post Dialysis Refused Weight 242.160606547464 BP Diastolic BP Location Tested BP Systolic [...] Weight in lbs Pre/Post Dialysis Refused Weight 246.655803096969 BP Diastolic BP Location Tested BP Systolic [...] Weight in lbs Pre/Post Dialysis Refused Weight 246.882395259688 BP Diastolic BP Location Tested BP Systolic [...] Weight in lbs Pre/Post Dialysis Refused Weight 211.160376427415 BP Diastolic BP Location Tested BP Systolic [...] Weight in lbs Pre/Post Dialysis Refused Weight 211.954928390931 BP Diastolic BP Location Tested BP Systolic BP Type 86 L arm 126 sitting Fetus Heart Rate Present Fetus Movement Comments Flowsheet Date 04/08/2022 Mckinney Score Blood Edema Fundus Height Fundus Units Glucose Ketones Leukocytes Nitrite Labor Signs Protein Cervic Dilation Cervic Effacement Cervic Station Type Weight in lbs Pre/Post Dialysis Refused Weight 212.99231175851 BP Diastolic BP Location Tested BP Systolic BP Type 84 134 Fetus Heart Rate Present Fetus Movement Comments Flowsheet Date 05/27/2022 Mckinney Score Blood Edema Fundus Height Fundus Units Glucose Ketones Leukocytes Nitrite Labor Signs Protein Cervic Dilation Cervic Effacement Cervic Station Type Weight in lbs Pre/Post Dialysis Refused Weight 221.261782754740 BP Diastolic BP Location Tested BP Systolic [...] Estim ated Date of Delivery false Thalassemia (Algerian, Syriac, Mediterranean, Or Background): MCV < 80 false Neural Tube Defect (Meningomyelocele, Spina Bifi da, Or Anencephaly) false Congenital Heart Defect false Down Syndrome false Curt-Sachs (eg, Latter-Day, Cajun, Hebrew-Bahamian) f alse Yung Disease false Sickle Cell [...] Partner Domestic Partner Phone Father Name Director Volunteer Services Status 06/05/19 25 2 A Positive 198 Gabriel Mo OPEN Fetus Data First Name Last Name Admitted to NICU Weight (g) Sex Living Outcome Pediatric Complications Fetus ID Race Codes Race Delivery Type [id number] Problems Problem Notes Anatomy with MFM - 07/31/24 1 300 [facility] MF U/S & OV [facility] MF 08/27/24 US only 1:00PM Problem Name Start Date End Date Resolution Snomed Code Not e care: history of infertility 948540973 Past history of shoulder dystocia 113549014 Large for gestation age fetus 786956831 less then 30 se c shoulder dystocia Past history of pre-eclampsia 074582600005868 bASA x2 Migraine 97953284 magnesium, Excedrin tension, sumatriptan 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 4420496 Palpitations 68441454 Holter monitor faxed to [facility] 07/29 Gestational diabetes mellitus 10/10/2024 90812869 Glucose tolerance test outside reference range 10/01/2024 872792434 10/01/2024 ecking blood sugars for 2 week instead for doing 3 hour Twin 47715878 38 wk deliveryantenatal testing @ 32wks per M Scheduled rpt 08/27 us ONLY Darren Calculation [...] Weight in lbs Pre/Post Dialysis Refused Weight 207.112710127636 BP Diastolic BP Location Tested BP Systolic [...] disability paperwork. will plan on referral to [facility] for anatomy and history of HTN/preeclampsia, [...] Type Weight in lbs Pre/Post Dialysis Refused 214.127068964341 BP Diastolic BP Location Tested BP Systolic [...] Weight in lbs Pre/Post Dialysis Refused Weight 216.010219452705 BP Diastolic BP Location Tested BP Systolic [...] No bleeding. Will send for anatomy at [facility]. Will measure for belly band today [...] Type Weight in lbs Pre/Post Dialysis Refused [id number] BP Diastolic BP Location Tested BP Systolic BP Type 92 152 53 114 Fetus Heart Rate Present Fetus Movement A Yes B Yes Comments Patient is having headaches, pain, contractions, swelling, Had elevated heart rate over the weekend and get heart moniter on , 08/08/24. saw [facility] this morning rec 2 bASA, will rpt anatomy in 4 weeks, precautions and education f/u 4 weeks Flowsheet Date 08/09/2024 Mckinney Score Blood Edema Fundus Height Fundus Units Glucose Ketones Leukocytes Nitrite Labor Signs Protein Cervic Dilation Cervic Effacement Cervic Station neg none none neg Type Weight in lbs Pre/Post Dialysis Refused [id number] BP Diastolic BP Location Tested BP Systolic [...] Weight in lbs Pre/Post Dialysis Refused Weight 229.818606240867 BP Diastolic BP Location Tested BP Systolic BP Type 89 133 Fetus Heart Rate Present Fetus Movement A Yes B Yes Comments Patient is having pressure, contractions and swelling. Flowsheet Date 08/29/2024 Mckinney Score Blood Edema Fundus Height Fundus Units Glucose Ketones Leukocytes Nitrite Labor Signs Protein Cervic Dilation Cervic Effacement Cervic Station Type Weight in lbs Pre/Post Dialysis Refused 232.01398171529 BP Diastolic BP Location Tested BP Systolic [...] Type Weight in lbs Pre/Post Dialysis Refused 236.921983966440 BP Diastolic BP Location Tested BP Systolic [...] Type Weight in lbs Pre/Post Dialysis Refused 234.138794631822 BP Diastolic BP Location Tested BP Systolic BP Type 87 138 Fetus Heart Rate Present Fetus Movement A Yes B Yes Comments Patient is having pain and c ontractions and swelling. 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 [facility], eduction and precautions f/u [...] Weight in lbs Pre/Post Dialysis Refused Weight 241.806671350898 BP Diastolic BP Location Tested BP Systolic BP Type 82 125 Fetus Heart Rate Present Fetus Movement Comments Flowsheet Date 10/23/2024 Mckinney Score Blood Edema Fundus Height Fundus Units Glucose Ketones Leukocytes Nitrite Labor Signs Protein Cervic Dilation Cervic Effacement Cervic Station neg trace Type Weight in lbs Pre/Post Dialysis Refused 241.07694000137 BP Diastolic BP Location Tested BP Systolic [...] Type Weight in lbs Pre/Post Dialysis Refused 248.796629306300 BP Diastolic BP Location Tested BP Systolic [...] Type Weight in lbs Pre/Post Dialysis Refused 238.093502278283 BP Diastolic BP Location Tested BP Systolic [...] Weight in lbs Pre/Post Dialysis Refused Weight 243.048896068469 BP Diastolic BP Location Tested BP Systolic [...]
--- OUTSIDE RECORDS SUMMARY | 2024-11-26 05:56 | XMS_ITS | Data Portability ---
Author Organization [facility] [place] [facility] Address [address] [facility] [place] [address] Care Team Providers Care Rig Operator Name Role Phone ZO MORA OTHER [phone] Assessment Encounter Date Assessment Date Assessment LastModified [...] auto diff 2018 019 [facility], [address] [address], [place], [address], 9 06:40:13 ferritin, serum or plasma 2018 019 [facility], [address] [facility] [address], [place], [address], 9 06:40:14 iron + total iron-bindin g capacity (TIBC), serum 2018 019 [facility], [address] [place] [address] [address], [place], [address], 9 06:40:14 HIV 1+2 AB + HIV 1 p24 Ag, qualitative immunoassay , serum 2018 019 [facility], [address], [place], [address], 9 07:12:01 HBsAg (hepatitis B surface Ag), EIA, serum 2018 019 [facility], [address], [place], [address], 9 07:12:02 hepatitis C Ab, signal-to-c utoff, serum or plasma 2018 019 [facility], [address], [place], [address], 9 07:12:01 RPR (rapid plasma reagin), serum 2018 019 [facility], [address], [place], [address], 9 07:12:00 hsv (1+2) igg Ab, serum 2018 019 [facility], [address] [facility], [place], [address], 9 07:12:00 CBC w/ auto diff 2018 019 [facility], [address] [facility], [place], [address], 9 07:11:59 Referral general surgeon referral 2018 019 LANA Moralez MD, [address] [facility] , [facility] [address], [place], [address], 9 12:38:24 ENT referral - Saw Dr. Mora --- need a second opinion. 2018 019 [facility], [address] [facility], [address], [place], [address], 9 17:55:21 Procedures None recorded. Surgeries None recorded. Imaging None recorded. Medication Orders ferrous sulfate 325 mg (65 mg iron) tablet [address] [facility], [address] [place] [address], [address], 9 11:26:58 Mucinex 600 mg tablet, extended release [address] [facility], [address] [place] [address], [address], 9 00:24:12 ferrous sulfate 325 mg (65 mg iron) tablet [address] [facility] [address] [facility], [address] [place] [address], [address], 9 12:48:40 Tessalon Perles 100 mg capsule [address] [facility] [address] [facility], [address] [place] [address], [address], 9 00:24:06 Patient TargetsNo targets recorded. Patient Instructions Encounter Date Encounter Id Patient Instructions Last Modified By Organization Details Last Modified Time 07/27/2018 [id number] upper respirator y infection (cold): care instructions [facility] Not available 07/27/2018 13:23:41 08/29/2018 [id number] hemorrhoids: car e instructions Not available 08/29/2018 16:13:52 anemia: care instructions Not available 08/29/2018 18:08:26 09/05/2018 [id number] Acute Sinusitis: Care Instructions Not available 09/05/2018 12:48:40 11/13/2018 [id number] hemorrhoids: car e instructions [facility] Not available 11/27/2018 00:17:15 02/13/2019 [id number] dizziness: care instructions [facility] Not available 02/13/2019 11:26:58 electrocardiogra m interpretation* [facility] Not available 03/13/2019 15:05:29 Reason for Referral ENT Referral for Cervical ly mphadenopathy Saw Dr. Mora --- need a second opinion. Referring Physician: Lucero Sandoval, Family Medicine, Encounter Date: 07/27/2018 General Surgeon Referral for Hemorrhoids Referring Physician: Ricardo Ramirez, PHYSICIAN INTERNIST, Encounter Date: 08/29/2018 Results Created Date Observation Date Name Description Value Unit Range Abnormal Flag Note LastModifiedBy Organization Detail LastModifiedTime 07/04/19 19 07/05/2018 TSH + free T4, serum TSH 3.080 uIU/m L 0.450- 4.500 Not Available [facility] ([facility]) [address] [place], [address], 07/05/2018 09:23:03 07/04/19 19 07/05/2018 TSH + free T4, serum T4,free(dire ct) 1.06 NG/dL 0.82-1 .77 Not Available [facility] ([facility]) [address] [place], [address], 07/05/2018 09:23:03 07/04/19 19 07/04/2018 CBC w/ auto diff WBC 7.2 x10e3 /uL 3.4-10 .8 Not Available [facility] ([facility]) [address] [place], [address], 07/05/2018 09:23:03 07/04/19 19 07/04/2018 CBC w/ auto diff RBC 4.87 x10e6 /uL 3.77-5 .28 Not Available [facility] ([facility]) [address] [place], [address], 07/05/2018 09:23:03 07/04/19 19 07/04/2018 CBC w/ auto diff hemoglobin 11.5 g/dL 11.1-1 5.9 Not Available [facility] ([facility]) [address] [place], [address], 07/05/2018 09:23:03 07/04/19 19 07/04/2018 CBC w/ auto diff hematocrit 36.2 % 34.0-4 6.6 Not Available [facility] ([facility]) [address] [facility] [place], [address], 07/05/2018 09:23:03 07/04/19 19 07/04/2018 CBC w/ auto diff MCV 74 fL 79-97 below low normal Not Available [facility] ([facility]) [address] [facility] [place], [address], 07/05/2018 09:23:03 07/04/19 19 07/04/2018 CBC w/ auto diff MCH 23.6 pg 26.6-3 3.0 below low normal Not Available [facility] ([facility]) [address] [facility] [place], [address], 07/05/2018 09:23:03 07/04/19 19 07/04/2018 CBC w/ auto diff MCHC 31.8 g/dL 31.5-3 5.7 Not Available [facility] ([facility]) [address] [facility] [place], [address], 07/05/2018 09:23:03 07/04/19 19 07/04/2018 CBC w/ auto diff RDW 16.0 % 12.3-1 5.4 above high normal Not Available [facility] ([facility]) [address] [facility] [place], [address], 07/05/2018 09:23:03 07/04/19 19 07/04/2018 CBC w/ auto diff platelets 480 x10e3 /uL 150-37 9 above high normal Not Available [facility] ([facility]) [address] [facility] [place], [address], 07/05/2018 09:23:03 07/04/19 19 07/04/2018 CBC w/ auto diff neutrophils 64 % not estab. Not Available [facility] ([facility]) [address] [facility] [place], [address], 07/05/2018 09:23:03 07/04/19 19 07/04/2018 CBC w/ auto diff lymphs 28 % not estab. Not Available [facility] ([facility]) [address] [facility], [place], [address], 07/05/2018 09:23:03 07/04/19 19 07/04/2018 CBC w/ auto diff monocytes 6 % not estab. Not Available [facility] ([facility]) [address] [facility], [place], [address], 07/05/2018 09:23:03 07/04/19 19 07/04/2018 CBC w/ auto diff eos 1 % not estab. Not Available [facility] ([facility]) [address] [place], [address], 07/05/2018 09:23:03 07/04/19 19 07/04/2018 CBC w/ auto diff basos 1 % not estab. Not Available [facility] ([facility]) [address] [facility], [place], [address], 07/05/2018 09:23:03 07/04/19 19 07/04/2018 CBC w/ auto diff immature cells FITTING ROOM INSPECTOR Not Available [facility] ([facility]) [address] [facility], [place], [address], 07/05/2018 09:23:03 07/04/19 19 07/04/2018 CBC w/ auto diff neutrophils (absolute) 4.6 x10e3 /uL 1.4-7. 0 Not Available [facility] ([facility]) [address] [place], [address], 07/05/2018 09:23:03 07/04/19 19 07/04/2018 CBC w/ auto diff lymphs (absolute) 2.0 x10e3 /uL 0.7-3. 1 Not Available [facility] ([facility]) [address] [place], [address], 07/05/2018 09:23:03 07/04/19 19 07/04/2018 CBC w/ auto diff monocytes(ab solute) 0.5 x10e3 /uL 0.1-0. 9 Not Available [facility] ([facility]) [address] [facility], [place], [address], 07/05/2018 09:23:03 07/04/19 19 07/04/2018 CBC w/ auto diff eos (absolute) 0.1 x10e3 /uL 0.0-0. 4 Not Available [facility] ([facility]) [address] [facility], [place], [address], 07/05/2018 09:23:03 07/04/19 19 07/04/2018 CBC w/ auto diff baso (absolute) 0.1 x10e3 /uL 0.0-0. 2 Not Available [facility] ([facility]) [address] [facility], [place], [address], 07/05/2018 09:23:03 07/04/19 19 07/04/2018 CBC w/ auto diff immature granulocytes 0 % not estab. Not Available [facility] ([facility]) [address] [facility], [place], [address], 07/05/2018 09:23:03 07/04/19 19 07/04/2018 CBC w/ auto diff immature grans (abs) 0.0 x10e3 /uL 0.0-0. 1 Not Available [facility] ([facility]) [address] [facility], [place], [address], 07/05/2018 09:23:03 07/04/19 19 07/04/2018 CBC w/ auto diff NRBC FITTING ROOM INSPECTOR Not Available [facility] ([facility]) [address] [place], [address], 07/05/2018 09:23:03 07/04/19 19 07/04/2018 CBC w/ auto diff hematology comments: FITTING ROOM INSPECTOR Not Available [facility] ([facility]) [address] [facility], [place], [address], 07/05/2018 09:23:03 07/04/19 19 07/05/2018 CMP, serum or plasm a glucose 90 mg/dL 65-99 Not Available [facility] ([facility]) [address] [place], [address], 07/05/2018 09:23:04 07/04/19 19 07/05/2018 CMP, serum or plasm a BUN 9 mg/dL 6-20 Not Available [facility] ([facility]) [address] [place], [address], 07/05/2018 09:23:04 07/04/19 19 07/05/2018 CMP, serum or plasm a creatinine 0.66 mg/dL 0.57-1 .00 Not Available [facility] ([facility]) [address] [place], [address], 07/05/2018 09:23:04 07/04/19 19 07/05/2018 CMP, serum or plasm a eGFR if nonafricn AM 123 mL/mi n/1.7 3 >59 Not Available [facility] ([facility]) [address] [place], [address], 07/05/2018 09:23:04 07/04/19 19 07/05/2018 CMP, serum or plasm a eGFR if africn AM 142 mL/mi n/1.7 3 >59 Not Available [facility] ([facility]) [address] [place], [address], 07/05/2018 09:23:04 07/04/19 19 07/05/2018 CMP, serum or plasm a BUN/creatini ne ratio 14 9-23 Not Available [facility] ([facility]) [address] [place], [address], 07/05/2018 09:23:04 07/04/19 19 07/05/2018 CMP, serum or plasm a sodium 139 mmol/ L 134-14 4 Not Available [facility] ([facility]) [address] [place], [address], 07/05/2018 09:23:04 07/04/1907/05/2018 CMP, serum or plasm a potassium 4.4 mmol/ L 3.5-5. 2 Not Available [facility] ([facility]) [address] [place], [address], 07/05/2018 09:23:04 07/04/1907/05/2018 CMP, serum or plasm a chloride 102 mmol/ L 96-106 Not Available [facility] ([facility]) [address] [place], [address], 07/05/2018 09:23:04 07/04/1907/05/2018 CMP, serum or plasm a carbon dioxide, total 23 mmol/ L 20-29 Not Available [facility] ([facility]) [address] [facility] [place], [address], 07/05/2018 09:23:04 07/04/1907/05/2018 CMP, serum or plasm a calcium 9.7 mg/dL 8.7-10 .2 Not Available [facility] ([facility]) [address] [facility] [place], [address], 07/05/2018 09:23:04 07/04/19 19 07/05/2018 CMP, serum or plasm a protein, total 8.1 g/dL 6.0-8. 5 Not Available [facility] ([facility]) [address] [facility] [place], [address], 07/05/2018 09:23:04 07/04/1907/05/2018 CMP, serum or plasm a albumin 4.6 g/dL 3.5-5. 5 Not Available [facility] ([facility]) [address] [facility] [place], [address], 07/05/2018 09:23:04 07/04/1907/05/2018 CMP, serum or plasm a globulin, total 3.5 g/dL 1.5-4. 5 Not Available [facility] ([facility]) [address] [facility] [place], [address], 07/05/2018 09:23:04 07/04/1907/05/2018 CMP, serum or plasm a A/G ratio 1.3 1.2-2. 2 Not Available [facility] ([facility]) [address] [facility] [place], [address], 07/05/2018 09:23:04 07/04/1907/05/2018 CMP, serum or plasm a bilirubin, total 0.3 mg/dL 0.0-1. 2 Not Available [facility] ([facility]) [address] [facility] [place], [address], 07/05/2018 09:23:04 07/04/1907/05/2018 CMP, serum or plasm a alkaline phosphatase 68 IU/L 39-117 Not Available [facility]) [address] [facility] [place], [address], 07/05/2018 09:23:04 07/04/1907/05/2018 CMP, serum or plasm a AST (SGOT) 20 IU/L 0-40 Not Available [facility] ([facility]) [address] [facility] [place], [address], 07/05/2018 09:23:04 07/04/1907/05/2018 CMP, serum or plasm a ALT (SGPT) 15 IU/L 0-32 Not Available [facility] ([facility]) [address] [facility] [place], [address], 07/05/2018 09:23:04 07/04/1907/05/2018 cytom egalo virus (cmv) igg+i gm Ab, serum cytomegalovi yung (CMV) Ab, IgG <0.60 U/mL 0.00-0 .59 Negat hayde <0.60 Equiv ocal 0.60 - 0.69 Posit hayde >0.69 Not Available [facility] ([facility]) [address] [facility], [place], [address], 07/05/2018 09:23:04 07/04/19 19 07/05/2018 cytom egalo virus (cmv) igg+i gm Ab, serum cytomegalovi yung (CMV) Ab, IgM <30.0 AU/mL 0.0-29 .9 Negat hayde <30.0 Equiv ocal 30.0 - 34.9 Posit hayde >34.9 A posit hayde resul t is gener ally indic ative of acute infec tion, react ivati on or persi stent IgM produ ction . Not Available [facility] ([facility]) [address] [facility], [place], [address], 07/05/2018 09:23:04 07/04/1907/05/2018 RPR (rapi d plasm a reagi n), serum RPR Non Reacti ve non reacti ve Not Available [facility] ([facility]) [address] [facility], [place], [address], 07/05/2018 09:23:05 07/04/1907/05/2018 heter ophil e Ab, quali tativ e latex agglu tinat ion, serum mono qual w/rflx qn Negati ve negati ve The sensi tivit y of Heter ophil e antib srinivasan testi ng is 80-90 %. Epste in [place] IgM testi ng offer s highe r sensi tivit y. Not Available [facility] ([facility]) [address] [facility], [place], [address], 07/05/2018 09:23:06 08/30/1908/30/2018 CBC w/ auto diff WBC 7.4 x10e3 /uL 3.4-10 .8 Not Available [facility] ([facility]) [address] [place], [address], 08/30/2018 07:11:59 08/30/19 19 08/30/2018 CBC w/ auto diff RBC 4.51 x10e6 /uL 3.77-5 .28 Not Available [facility] ([facility]) [address] [place], [address], 08/30/2018 07:11:59 08/30/19 19 08/30/2018 CBC w/ auto diff hemoglobin 11.0 g/dL 11.1-1 5.9 below low normal Not Available [facility] ([facility]) [address] [place], [address], 08/30/2018 07:11:59 08/30/1908/30/2018 CBC w/ auto diff hematocrit 34.2 % 34.0-4 6.6 Not Available [facility] ([facility]) [address] [place], [address], 08/30/2018 07:11:59 08/30/19 19 08/30/2018 CBC w/ auto diff MCV 76 fL 79-97 below low normal Not Available [facility] ([facility]) [address] [place], [address], 08/30/2018 07:11:59 08/30/19 19 08/30/2018 CBC w/ auto diff MCH 24.4 pg 26.6-3 3.0 below low normal Not Available [facility] ([facility]) [address] [place], [address], 08/30/2018 07:11:59 08/30/1908/30/2018 CBC w/ auto diff MCHC 32.2 g/dL 31.5-3 5.7 Not Available [facility] ([facility]) [address] [place], [address], 08/30/2018 07:11:59 08/30/19 19 08/30/2018 CBC w/ auto diff RDW 15.6 % 12.3-1 5.4 above high normal Not Available [facility] ([facility]) [address] [facility], [place], [address], 08/30/2018 07:11:59 08/30/19 19 08/30/2018 CBC w/ auto diff platelets 389 x10e3 /uL 150-37 9 above high normal Not Available [facility] ([facility]) [address] [facility], [place], [address], 08/30/2018 07:11:59 08/30/19 19 08/30/2018 CBC w/ auto diff neutrophils 59 % not estab. Not Available [facility] ([facility]) [address] [facility], [place], [address], 08/30/2018 07:11:59 08/30/19 19 08/30/2018 CBC w/ auto diff lymphs 31 % not estab. Not Available [facility] ([facility]) [address] [facility], [place], [address], 08/30/2018 07:11:59 08/30/19 19 08/30/2018 CBC w/ auto diff monocytes 8 % not estab. Not Available [facility] ([facility]) [address] [facility], [place], [address], 08/30/2018 07:11:59 08/30/19 19 08/30/2018 CBC w/ auto diff eos 1 % not estab. Not Available [facility] ([facility]) [address] [facility], [place], [address], 08/30/2018 07:11:59 08/30/1908/30/2018 CBC w/ auto diff basos 1 % not estab. Not Available [facility] ([facility]) [address] [facility], [place], [address], 08/30/2018 07:11:59 08/30/1908/30/2018 CBC w/ auto diff immature cells FITTING ROOM INSPECTOR Not Available [facility] ([facility]) [address] [facility], [place], [address], 08/30/2018 07:11:59 08/30/19 19 08/30/2018 CBC w/ auto diff neutrophils (absolute) 4.4 x10e3 /uL 1.4-7. 0 Not Available [facility] ([facility]) [address] [place], [address], 08/30/2018 07:11:59 08/30/1908/30/2018 CBC w/ auto diff lymphs (absolute) 2.3 x10e3 /uL 0.7-3. 1 Not Available [facility] ([facility]) [address] [place], [address], 08/30/2018 07:11:59 08/30/1908/30/2018 CBC w/ auto diff monocytes(ab solute) 0.6 x10e3 /uL 0.1-0. 9 Not Available [facility] ([facility]) [address] [place], [address], 08/30/2018 07:11:59 08/30/1908/30/2018 CBC w/ auto diff eos (absolute) 0.1 x10e3 /uL 0.0-0. 4 Not Available [facility] ([facility]) [address] [place], [address], 08/30/2018 07:11:59 08/30/1908/30/2018 CBC w/ auto diff baso (absolute) 0.0 x10e3 /uL 0.0-0. 2 Not Available [facility] ([facility]) [address] [place], [address], 08/30/2018 07:11:59 08/30/1908/30/2018 CBC w/ auto diff immature granulocytes 0 % not estab. Not Available [facility] ([facility]) [address] [place], [address], 08/30/2018 07:11:59 08/30/1908/30/2018 CBC w/ auto diff immature grans (abs) 0.0 x10e3 /uL 0.0-0. 1 Not Available [facility] ([facility]) [address] [facility], [place], [address], 08/30/2018 07:11:59 08/30/1908/30/2018 CBC w/ auto diff NRBC FITTING ROOM INSPECTOR Not Available [facility] ([facility]) [address] [facility], [place], [address], 08/30/2018 07:11:59 08/30/1908/30/2018 CBC w/ auto diff hematology comments: FITTING ROOM INSPECTOR Not Available [facility] ([facility]) [address] [facility], [place], [address], 08/30/2018 07:11:59 08/30/1908/30/2018 hsv (1+2) igg Ab, [...] willy to HSV-1 . Not Available [facility] ([facility]) [address] [facility], [place], [address], 08/30/2018 07:12:00 08/30/1908/30/2018 hsv (1+2) igg Ab, [...] willy to HSV-2 . Not Available [facility] ([facility]) [address] [facility], [place], [address], 08/30/2018 07:12:00 08/30/19 19 08/30/2018 RPR (rapi d plasm a reagi n), serum RPR Non Reacti ve non reacti ve Not Available [facility] ([facility]) [address] [facility], [place], [address], 08/30/2018 07:12:00 08/30/1908/30/2018 HIV 1+2 AB + HIV 1 p24 Ag, quali tativ e immun oassa y, serum HIV screen 4TH generation wrfx Non Reacti ve non reacti ve Not Available [facility] ([facility]) [address] [facility], [place], [address], 08/30/2018 07:12:01 08/30/19 19 08/30/2018 hepat itis C Ab, signa l-to- cutof f, serum or plasm a HCV Ab <0.1 s/co_ ratio 0.0-0. 9 Not Available [facility] ([facility]) [address] [facility], [place], [address], 08/30/2018 07:12:01 08/30/1908/30/2018 hepat itis C Ab, signa l-to- cutof f, serum or plasm a comment: Commen t Non react hayde HCV antib srinivasan scree n is consi stent with no HCV infec tion, unles s recen t infec tion is suspe cted or other evide nce exist s to indic ate HCV infec tion. Not Available [facility] ([facility]) [address] [facility], [place], [address], 08/30/2018 07:12:01 08/30/1908/30/2018 HBsAg (hepa titis B surfa ce Ag), EIA, serum HBsAg screen Negati ve negati ve Not Available [facility] ([facility]) [address] [facility], [place], [address], 08/30/2018 07:12:02 02/14/2002/14/2019 CBC w/ auto diff WBC 7.5 x10e3 /uL 3.4-10 .8 Not Available [facility] ([facility]) [address] [facility], [place], [address], 02/14/2019 06:40:13 02/14/2002/14/2019 CBC w/ auto diff RBC 4.34 x10e6 /uL 3.77-5 .28 Not Available [facility] ([facility]) [address] [facility], [place], [address], 02/14/2019 06:40:13 02/14/2002/14/2019 CBC w/ auto diff hemoglobin 11.1 g/dL 11.1-1 5.9 Not Available [facility] ([facility]) [address] [facility], [place], [address], 02/14/2019 06:40:13 02/14/2002/14/2019 CBC w/ auto diff hematocrit 34.2 % 34.0-4 6.6 Not Available [facility] ([facility]) [address] [facility], [place], [address], 02/14/2019 06:40:13 02/14/2002/14/2019 CBC w/ auto diff MCV 79 fL 79-97 Not Available [facility] ([facility]) [address] [facility], [place], [address], 02/14/2019 06:40:13 02/14/2002/14/2019 CBC w/ auto diff MCH 25.6 pg 26.6-3 3.0 below low normal Not Available [facility] ([facility]) [address] [facility], [place], [address], 02/14/2019 06:40:13 02/14/2002/14/2019 CBC w/ auto diff MCHC 32.5 g/dL 31.5-3 5.7 Not Available [facility] ([facility]) [address] [facility], [place], [address], 02/14/2019 06:40:13 02/14/2002/14/2019 CBC w/ auto diff RDW 15.0 % 12.3-1 5.4 Not Available [facility] ([facility]) [address] [facility], [place], [address], 02/14/2019 06:40:13 02/14/2002/14/2019 CBC w/ auto diff platelets 372 x10e3 /uL 150-45 0 Not Available [facility] ([facility]) [address] [facility], [place], [address], 02/14/2019 06:40:13 02/14/2002/14/2019 CBC w/ auto diff neutrophils 61 % not estab. Not Available [facility] ([facility]) [address] [facility], [place], [address], 02/14/2019 06:40:13 02/14/2002/14/2019 CBC w/ auto diff lymphs 28 % not estab. Not Available [facility] ([facility]) [address] [facility], [place], [address], 02/14/2019 06:40:13 02/14/2002/14/2019 CBC w/ auto diff monocytes 8 % not estab. Not Available [facility] ([facility]) [address] [facility], [place], [address], 02/14/2019 06:40:13 02/14/2002/14/2019 CBC w/ auto diff eos 2 % not estab. Not Available [facility] ([facility]) [address] [facility], [place], [address], 02/14/2019 06:40:13 02/14/2002/14/2019 CBC w/ auto diff basos 1 % not estab. Not Available [facility] ([facility]) [address] [facility], [place], [address], 02/14/2019 06:40:13 02/14/2002/14/2019 CBC w/ auto diff immature cells FITTING ROOM INSPECTOR Not Available [facility] ([facility]) [address] [facility], [place], [address], 02/14/2019 06:40:13 02/14/2002/14/2019 CBC w/ auto diff neutrophils (absolute) 4.7 x10e3 /uL 1.4-7. 0 Not Available [facility] ([facility]) [address] [facility], [place], [address], 02/14/2019 06:40:13 02/14/2002/14/2019 CBC w/ auto diff lymphs (absolute) 2.1 x10e3 /uL 0.7-3. 1 Not Available [facility] ([facility]) [address] [facility], [place], [address], 02/14/2019 06:40:13 02/14/2002/14/2019 CBC w/ auto diff monocytes(ab solute) 0.6 x10e3 /uL 0.1-0. 9 Not Available [facility] ([facility]) [address] [facility], [place], [address], 02/14/2019 06:40:13 02/14/2002/14/2019 CBC w/ auto diff eos (absolute) 0.1 x10e3 /uL 0.0-0. 4 Not Available [facility] ([facility]) [address] [place], [address], 02/14/2019 06:40:13 02/14/2002/14/2019 CBC w/ auto diff baso (absolute) 0.0 x10e3 /uL 0.0-0. 2 Not Available [facility] ([facility]) [address] [facility], [place], [address], 02/14/2019 06:40:13 02/14/2002/14/2019 CBC w/ auto diff immature granulocytes 0 % not estab. Not Available [facility] ([facility]) [address] [facility], [place], [address], 02/14/2019 06:40:13 02/14/2002/14/2019 CBC w/ auto diff immature grans (abs) 0.0 x10e3 /uL 0.0-0. 1 Not Available [facility] ([facility]) [address] [place] [address], [place], [address], 02/14/2019 06:40:13 02/14/2002/14/2019 CBC w/ auto diff NRBC FITTING ROOM INSPECTOR Not Available [facility] ([facility]) [address] [place] [address], [place], [address], 02/14/2019 06:40:13 02/14/2002/14/2019 CBC w/ auto diff hematology comments: FITTING ROOM INSPECTOR Not Available [facility] ([facility]) [address] [facility], [place], [address], 02/14/2019 06:40:13 02/14/2002/14/2019 iron + total iron- leta ng capac ity (TIBC ), serum iron bind.cap.(TI BC) 353 ug/dL 250-45 0 Not Available [facility] ([facility]) [address] [place], [address], 02/14/2019 06:40:14 02/14/2002/14/2019 iron + total iron- leta ng capac ity (TIBC ), serum UIBC 336 ug/dL 131-42 5 Not Available [facility] ([facility]) [address] [place] [address], [address], 02/14/2019 06:40:14 02/14/2002/14/2019 iron + total iron- leta ng capac ity (TIBC ), serum iron 17 ug/dL 27-159 below low normal Not Available [facility] ([facility]) [address] [facility], [place], [address], 02/14/2019 06:40:14 02/14/2002/14/2019 iron + total iron- leta ng capac ity (TIBC ), serum iron saturation 5 % 15-55 alert low Not Available [facility] ([facility]) [address] [facility], [place], [address], 02/14/2019 06:40:14 02/14/2002/14/2019 cristina tin, serum or plasm a ferritin, serum 7 NG/mL 15-150 below low normal Not Available [facility] ([facility]) [address] [facility], [place], [address], 02/14/2019 06:40:14 07/04/19 19 07/04/2018 XR, chest No observ ation record ed. [email or web address] [address] [place], [address], 07/06/2018 16:35:07 08/16/19 19 08/09/2018 CT, neck, soft tissu e, w/ contr ast No observ ation record ed. [address] [place], [address], 11/27/2018 00:09:00 08/17/19 19 08/16/2018 CT, sinus es, w/o contr ast No observ ation record ed. [address] [place], [address], 08/16/2018 13:21:28 Result Notes None recorded. Problems Name Problem SNOMED Code Status Onset Date Resolution Date Notes Provider Name and Address Organization Details Recorded Time Infectiv e vaginiti s 674049573 Active Radha moreno [place] Jeremy [facility] 6 11:25:47 Infectiv e vaginiti s 572250984 Completed BRENDEN Mar [place] - [facility] 5 09:18:25 Maternal care for diminish ed movement s [place] [facility] 6 11:25:47 Maternal care for diminish ed movement s Completed Shahrzad Barrera [place], [place] [facility] 5 09:18:25 Breastfe eding painful 365634942 [place] [facility] 6 11:25:47 Pain in pelvis 78502285 [place] [facility] 6 11:25:47 Vaginal discharg e 856645107 Active white Radha Garcia null[place] [facility] 6 11:25:47 Herpes simplex type 1 infectio n 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 Active Valtrex at 36 weeks Radha [place] [facility] 6 11:25:47 Disorder of thyroid gland 38212967 Completed 201811/26/2018 [place] - [facility] 9 00:12:22 Cervical lymphade nopathy 108685566 Active 2018 [place] - [facility] 9 11:15:19 Upper respirat ory infectio n 29149190 Completed 201811/13/2018 [place] [facility] 9 11:05:53 Mean corpuscu lar volume below referenc e range 148010024 Active 2018 [place] [facility] 9 12:49:50 Acute sinusiti s 30398690 Completed 201811/13/2018 [place] [facility] 9 11:05:49 History of Helicoba cter pylori infectio n 74782800519 013878 Active 2018 GI [place] [facility] 9 00:05:39 Chronic gastriti s 5013368 Active 2018 EGD - H pylori, [place] - [facility] 9 00:06:03 Hemorrho ids 87509562 Active 2018 Gen sx planning for hemorrho idectomy Lucero moreno, [facility] 9 00:06:27 Dizzines s 959155044 Active 2018 Lucero moreno, [facility] 9 11:29:10 Problem Notes None recorded. Procedures Surgical History Date Name Laterality Status Provider Name and Address Organization Details Recorded Time 05/08/19 16 Cholecystectomy completed Radhaluz Garcia [facility] 11/03/2015 11:25:48 01/15/20 15 IUD Insertion completed Ricardo Box [facility] 01/14/2015 12:23:57 04/18/20 12 Date of Last Pap Smear completed Mily Parsons MA [facility] 05/06/2014 16:14:24 05/08/19 10 Appendectomy completed Maida Do MA [facility] 06/17/2014 11:12:04 Imaging Results None recorded. [...] Updated DateTime 9 162.56 cm 36.7 kg/m2 06593.0 4 g 97.9 [degF] 16 /min 76 /min 124/86 mm[Hg] Jenelle Groves [place] - [facility] 9 12:24:37 Date Recorded Body height Body mass index (BMI) Body weight Systolic And Diastolic Provider Name and Address Organization Details Last Updated DateTime 08/29/2018 162.56 cm 36.2 kg/m2 14766.99 g 130/94 mm[Hg] Shahrzad Barrera MA [facility] 08/29/2018 11:38:34 Date Recorded Body height Body mass index (BMI) Body weight Body temperature Heart rate Respiratory rate Systolic And Diastolic Provider Name and Address Organization Details Last Updated DateTime 9 162.56 cm 36 kg/m2 71681.6 1 g 98.3 [degF] 84 /min 20 /min 132/84 mm[Hg] Jenelle Groves MA [facility] 9 12:15:41 Date Recorded Body height Body mass index (BMI) Body weight Body temperature Heart rate Respiratory rate Systolic And Diastolic Provider Name and Address Organization Details Last Updated DateTime 9 162.56 cm 35.5 kg/m2 52571.9 7 g 98.3 [degF] 70 /min 18 /min 130/80 mm[Hg] Jenelle Groves MA [facility] 9 10:43:45 Date Recorded Body height Body mass index (BMI) Body weight Heart rate Respiratory rate Body temperature Systolic And Diastolic Provider Name and Address Organization Details Last Updated DateTime 9 162.56 cm 36.3 kg/m2 28548.7 9 g 86 /min 20 /min 98.3 [degF] 130/82 mm[Hg] Jenelle Groves MA [facility] 9 11:02:19 Social History Question Answer Notes LastModified by Organizat ion Details LastModified Time Tobacco Smoking Status Never Smoker Maida Do MA [facility] 06/17/2014 11:12:04 Do You Have An [...] Information not available 06/17/2014 Marital Status [place] [id number] Informatio n not available 06/17/2014 What Was [...] SNOMED-CT Code Diagnosis ICD10 Code Diagnosis Note [id number] MD Lalo Weaver ([facility]) [address] [facility] [place] [address] 05/06/2014 15:15:04 05/07/2014 13:43:54 [id number] test positive [id number] Joan Blas [facility] Lalo Husain ([facility]) [address] [facility] [place] [address] 05/22/2014 14:23:39 05/22/2014 15:25:47 [id number] MD Lalo Roldan ([facility]) [address] [facility] [place] [address] 06/17/2014 10:44:30 06/17/2014 15:08:09 [id number] MD Lalo [place]an ([facility]) [address] [facility] [place] [address] 07/15/2014 10:26:03 07/16/2014 09:23:26 Normal [id number] MD Lalo Weaver ([facility] 122) [address] [facility] [place] [address] 08/12/2014 09:35:12 08/12/2014 12:42:08 Normal [id number] MD Lalo Weaver ([facility]) [address] [facility] [place] [address] 08/26/2014 11:56:11 08/27/2014 16:10:13 [id number] MD Lalo Weaver ([facility]) [address] [facility] [place] [address] 09/09/2014 14:42:01 09/09/2014 15:30:17 [id number] MD Lalo Weaver ([facility]) [address] [facility] [place] [address] 09/23/2014 09:49:09 09/23/2014 15:23:49 [id number] MD Lalo Weaver ([facility]) [address] [facility] [place] [address] 10/07/2014 10:59:01 10/07/2014 11:38:07 [id number] MD Lalo Weaver ([facility]) [address] [facility] [place] [address] 10/21/2014 09:36:51 10/23/2014 12:51:20 [id number] MD Lalo Weaver ([facility]) [address] [place] [address] 11/04/2014 09:43:59 11/04/2014 14:45:01 [id number] Normal [id number] MD Lalo Weaver ([facility]) [address] [facility] [place] [address] 11/11/2014 11:18:25 11/11/2014 14:54:02 [id number] Maternal c are for diminished movements [id number] MD Lalo Weaver ([facility]) [address] [facility] [place] [address] 11/18/2014 10:46:59 11/18/2014 11:58:55 [id number] MD Lalo Weaver ([facility]) [address] [place] [address] 11/24/2014 08:49:50 11/24/2014 10:29:51 [id number] MD Lalo Weaver ([facility]) [address] [place] [address] 12/24/2014 09:05:47 12/24/2014 12:04:57 care [id number] MD Lalo Weaver ([facility]) [address] [facility] [place] [address] 01/14/2015 11:47:27 01/14/2015 12:33:02 care [id number] Uses contraception 63822328 [id number] MD Lalo Weaver Womens ([facility] 122) [address] [facility] [place] [address] 01/19/2015 15:46:51 01/20/2015 09:49:17 IUD check 660991547 [id number] MD Lalo Weaver Womens ([facility] 122) [address] [facility] [place] [address] 02/11/2015 10:38:39 02/18/2015 18:08:10 IUD check 260904901 Z30.431 [id number] Joan Blas [facility] Lalo Womenjavi ([facility] 122) [address] [facility] [place] [address] 11/03/2015 11:00:12 11/03/2015 14:33:42 detection examination 85598211 Z32.00 IUD check 651254462 Z30. 049 [id number] MD Lalo HURTADO 14 IM [address] [facility] [place] [address] 07/04/2018 09:50:09 07/04/2018 16:26:43 Cervical lymphadenopathy 776402936 R59.0 Had a cough since 02/2018, on and off No traveling. No cat. Weight stable overall. Fatigue - despite sleeping. No dental issues. No focal weakness. Sweaty at times. Irregular periods. Neuro intact. ENT will do US +/- biopsy soon. Labs. Check for mono, syphilis, CMV, CXR. RTC 3mo Disorder o f thyroid gland 11835309 E07.9 Had a cough since 02/2018, on and off. Check TSH [id number] MD Lalo HURTADO 14 IM [address] [facility] [place] [address] 07/27/2018 12:09:33 07/31/2018 15:49:44 Cervical lymphadenopathy 704000151 R59.0 Had a cough since 02/2018, on [...] second ENT opinion. Upper resp iratory infection 62549810 J06.9 Strept and Flu negative. Exam unremarkab le. Conservati ve management . [id number] MD Lalo Chambers 14 OB [address] [facility] [place] [address] 08/29/2018 11:23:12 08/30/2018 09:21:21 Gynecologic examination 96108497 Z01.419 CBE and pelvic exam performedP t is on her menstrual cycle, will RTC for pap smear Venereal d isease screening 089844103 Z11.3 Anemia 968791236 D64.9 Hemorrhoids 57919799 K64 .9 [id number] MD Lalo HURTADO 14 IM [address] [facility] [place] [address] 09/05/2018 12:08:49 09/06/2018 10:44:23 Acute sinusitis 56424699 J01.90 4 days, worsening coughs, chest congestion . Exam sinusitis. Already on antihistam althea, PPI, Augmentin with ENT. Try home Flonase, add mucinex. 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 Heavy periods on paraguard with cognos consultant , still heavy. FeS - taking two tab now. Inc to three - RTC 2mo for ferritin check. [id number] MD Lalo HURTADO 14 IM [address] [facility] [place] [address] 11/13/2018 10:37:12 11/27/2018 11:36:00 Cervical lymphadenopathy 121623333 R59.0 06/2018: Had a cough since 02/2018, [...] done biopsy - result benign. Chronic gastritis 754971 9 K29.50 Followed by GI.Chronic gastritic, H pylori infection - pt was treated. Per pt, her esophagus was also dilated. Hemorrhoids 98683105 K64 .9 Followed by Gen sx - candidate for hemorrhoid ectomy. History of Helicobacter pylori infection 8814275836 [id number] Z86.19 Followed by GI - treated [id number] MD Lalo HURTADO 14 IM [address] [facility] [address] [place] [address] 02/13/2019 10:52:03 02/14/2019 08:35:16 Dizziness 192988955 R42 Thyroid was low with Polishing Machine Operator Helper recently - pt will be rechecked by [...] ID Guarantor Name 09/05/2018 1 [place] [employer] [place] [employer] Yessica Young [id number] Yessica Mo 01/08/2019 1 [facility] ([facility]ICA[facility] Yessica Young [id number] Yessica Mo 03/12/2019 2 [place] Yessica Young [id number] Yessica Mo 11/30/2020 1 [place] [id number] Luis Antonio Mo [id number] Yessica Mo 01/19/2015 1 [place] [employer] [place] Yessica Young [id number] Yessica Mo 11/03/2015 1 [facility] (MEDICAID HMO) [id number] Yessica Young [id number] Yessica Mo 06/19/2018 1 *SELF PAY* Me [...] pt wants a second opinion Lucero moreno, [place] - [facility] 07/31/2018 15:32:25 08/29/2018 text/html Annual GYNReport [...] PMDD Ricardo Ramirez MD Attn: Accounting,[address] [place], [address], [facility] 08/29/2018 16:15:04 09/05/2018 text/html 23yo [...] Domestic Partner Domestic Partner Phone Father Name Renewable Energy Consultant Status 05/06/20 14 1 A Positive Luis Antonio Mo CLOSED Fetus Data First Name Last Name Admitted to NICU Weight (g) Sex Living Outcome Pediatric Complications Fetus ID Race Codes Race Delivery Type CHASITY ESCAMILLA false 4309.12 4 F Full Term 5386 [id number] White Vaginal Problems Problem Notes Problem Name Start Date End Date Resolution Snomed Code Not e Infective vaginitis [id number] Maternal care for diminished movements 054968062 Darren Calculation Initial Darren Date Initial Exam [...] Type Weight in lbs Pre/Post Dialysis Refused 203.881312700792 BP Diastolic BP Location Tested BP Systolic BP Type 64 L arm 118 sitting Fetus Heart Rate Present Fetus Movement Comments Flowsheet Date 05/22/2014 Mckinney Score Blood Edema Fundus Height Fundus Units Glucose Ketones Leukocytes Nitrite Labor Signs Protein Cervic Dilation Cervic Effacement Cervic Station neg none none negative neg Type Weight in lbs Pre/Post Dialysis Refused 198.203415848562 BP Diastolic BP Location Tested BP Systolic [...] Type Weight in lbs Pre/Post Dialysis Refused 164.80856219748 BP Diastolic BP Location Tested BP Systolic [...] Type Weight in lbs Pre/Post Dialysis Refused 201.252149426699 BP Diastolic BP Location Tested BP Systolic [...] Type Weight in lbs Pre/Post Dialysis Refused 203.46174993991 BP Diastolic BP Location Tested BP Systolic BP Type 68 128 Fetus Heart Rate Present A 142 Present Fetus Movement A Yes Comments 28 weeks today Flowsheet Date 08/26/2014 Mckinney Score Blood Edema Fundus Height Fundus Units Glucose Ketones Leukocytes Nitrite Labor Signs Protein Cervic Dilation Cervic Effacement Cervic Station 26 cm none Type Weight in lbs Pre/Post Dialysis Refused 203.47429433687 BP Diastolic BP Location Tested BP Systolic BP Type 74 L arm 122 sitting Fetus Heart Rate Present A 146 Present Fetus Movement A Yes Comments Flowsheet Date 09/09/2014 Mckinney Score Blood Edema Fundus Height Fundus Units Glucose Ketones Leukocytes Nitrite Labor Signs Protein Cervic Dilation Cervic Effacement Cervic Station 30 cm none Type Weight in lbs Pre/Post Dialysis Refused 206.562506983131 BP Diastolic BP Location Tested BP Systolic BP Type 60 L arm 120 sitting Fetus Heart Rate Present A 154 Present Fetus Movement A Yes Comments Flowsheet Date 09/23/2014 Mckinney Score Blood Edema Fundus Height Fundus Units Glucose Ketones Leukocytes Nitrite Labor Signs Protein Cervic Dilation Cervic Effacement Cervic Station 32 cm none Type Weight in lbs Pre/Post Dialysis Refused 205.834428351585 BP Diastolic BP Location Tested BP Systolic BP Type 68 110 Fetus Heart Rate Present A 155 Fetus Movement A Yes Comments Flowsheet Date 10/07/2014 Mckinney Score Blood Edema Fundus Height Fundus Units Glucose Ketones Leukocytes Nitrite Labor Signs Protein Cervic Dilation Cervic Effacement Cervic Station none Type Weight in lbs Pre/Post Dialysis Refused 208.765083563758 BP Diastolic BP Location Tested BP Systolic BP Type 78 110 sitting Fetus Heart Rate Present A 154 Fetus Movement A Yes Comments growth scan ordered Flowsheet Date 10/21/2014 Mckinney Score Blood Edema Fundus Height Fundus Units Glucose Ketones Leukocytes Nitrite Labor Signs Protein Cervic Dilation Cervic Effacement Cervic Station 37 cm none Type Weight in lbs Pre/Post Dialysis Refused 213.537611912721 BP Diastolic BP Location Tested BP Systolic BP Type 72 118 sitting Fetus Heart Rate Present A 140 Present Fetus Movement A Yes Comments gbs today. Flowsheet Date 11/04/2014 Mkcinney Score Blood Edema Fundus Height Fundus Units Glucose Ketones Leukocytes Nitrite Labor Signs Protein Cervic Dilation Cervic Effacement Cervic Station 37 cm none Type Weight in lbs Pre/Post Dialysis Refused 216.508233513516 BP Diastolic BP Location Tested BP Systolic [...] Type Weight in lbs Pre/Post Dialysis Refused 217.684952143324 BP Diastolic BP Location Tested BP Systolic [...] Type Weight in lbs Pre/Post Dialysis Refused 221.888468930093 BP Diastolic BP Location Tested BP Systolic [...] Type Weight in lbs Pre/Post Dialysis Refused 223.540006376616 BP Diastolic BP Location Tested BP Systolic [...] At Estimated Date of Delivery false Thalassemia (Jamaican, Niuean, Mediterranean, Or Background): MCV < 80 false Neural Tube Defect (Meningom yelocele, Spina Bifida, Or Anencephaly) false Congenital Heart Defect false Down Syndrome false Curt-Sachs (eg, Hoahaoism, Cajun , Moroccan-[place]) false Yung Disease false Sickle Cell Disease [...] Domestic Partner Domestic Partner Phone Father Name Renewable Energy Consultant Status 06/17/19 15 1 CLOSED Fetus Data First Name Last Name Admitted to NICU Weight (g) Sex Living Outcome Pediatric Complications Fetus ID Race Codes Race Delivery Type 3515.33 8 F Full Term [id number] Vaginal Darren Calculation Initial Darren Date Initial [...]
[2024-11-26 06:01] VITALS: BP 126/64; PULSE 78
[2024-11-26 06:16] VITALS: BP 141/103; PULSE 100
[2024-11-26 06:32] VITALS: BP 125/67; PULSE 93
--- NOTE | 2024-11-28 01:09 | PM.OBTRLD ---
OB - Triage/Final Diagnosis Visit Information Date of evaluation: 11/26/24 Reason for evaluation: threatened labor Comments/Additional reasons for admission: I have assessed the risk for this patient, Yessica Mo, and determined that she would benefit from observation care.
== END 2024-11-26 07:10 | disposition home or self-care (01) ==
PROVIDERS: Admitting Provider Obstetrics & Gynecology; Visit Provider Obstetrics & Gynecology
DX: O47.03 False labor before 37 completed weeks of gestation, third trimester (principal); Z3A.36 36 weeks gestation of pregnancy
CPT/HCPCS: G0378; G0379

== ENCOUNTER 2024-11-26 17:22 | Observation (INO) | payer OTHER, SELFPAY ==
--- OUTSIDE RECORDS SUMMARY | 2024-11-26 20:20 | XMS_ITS | Encounter Summary ---
Author Organization [facility] Address [address] [place] [address] Phone Care Team Providers Care Vp Patient Name Role Phone Manda Singh MD Unavailable [phone] Scooter White DO Primary Care Provider Malik Cates MD Unavailable Ulices Marino MD Unavailable Yon Gutierrez MD Primary Care Provider Georgina Fontenot APRN, PEDIGREE RESEARCHER Unavailable [phone] Encounter Details Date Type Department Care Team (Late st Contact Info) Description 07/26/2021 Lab Requisition [facility] [address] [place] [address] Edita Garza, TRUNG, BORING MILL OPERATOR FOR METAL [address] [place] [address] Encounter for pre-employment examination Social [...] >=1.1 AI 07/26/2021 10:00 PM CDT [facility] Blood No Phlebotomy Charged / Unknown 07/26/2021 9:00 AM CDT 07/26/2021 2:15 PM CDT Narrative [facility] - 07/26/2021 10:00 PM CDT <= 0.8 Negative. No detectable VZV IgG antibody. 0.9 - 1.0 Equivocal >=1.1 Positive Antibody testing was performed by multiplex flow immunoassay on the BioPlex platform. Edita L Behrends FRENCH TRANSLATOR, BORING MILL OPERATOR FOR METAL IMMUNOLOGY ORDERABL ES Final Result Performing Organization Address [facility] de Phone Number [facility] [address] [place] [address], [place] * (ABNORMAL) RUBEOLA (MEASLES) IGG (07/26/2021 9:00 AM CDT) MEASLES AB IGG 0.7(L) >=1.1 AI 07/26/2021 10:00 PM CDT [facility] Blood No Phlebotomy Charged / Unknown 07/26/2021 9:00 AM CDT 07/26/2021 2:15 PM CDT Narrative [facility] - 07/26/2021 10:00 PM CDT <= 0.8 Negative. No detectable Measles IgG antibody. 0.9 - 1.0 Equivocal >=1.1 Positive Antibody testing was performed by multiplex flow immunoassay on the BioPlex platform. Edita L Behrends FRENCH TRANSLATOR, BORING MILL OPERATOR FOR METAL IMMUNOLOGY ORDERABL ES Final Result Performing Organization Address [facility] de Phone Number [facility] [address] [place] [address], [place] * RUBELLA IMMUNITY IGG (07/26/2021 9:00 AM CDT) [facility]A IMMUNITY Immune Immune, Invalid 07/26/2021 10:00 PM CDT [facility] Blood No Phlebotomy Charged / Unknown 07/26/2021 9:00 AM CDT 07/26/2021 2:15 PM CDT Narrative [facility] - 07/26/2021 10:00 PM CDT Antibody testing was performed by multiplex flow immunoassay on the BioPlex platform. us Edita Garza FRENCH TRANSLATOR, BORING MILL OPERATOR FOR METAL CHEMISTRY ORDERABLE S Final Result Performing Organization Address [facility] Co de Phone Number [facility] [address] [place] [address], [place] * MUMPS IGG (07/26/2021 9:00 AM CDT) Mumps Ab IgG 1.2 >=1.1 AI 07/26/2021 10:00 PM CDT [facility] Blood No Phlebotomy Charged / Unknown 07/26/2021 9:00 AM CDT 07/26/2021 2:15 PM CDT Narrative [facility] - 07/26/2021 10:00 PM CDT <= 0.8 Negative. No detectable Mumps IgG antibody. 0.9 - 1.0 Equivocal >=1.1 Positive Antibody testing was performed by multiplex flow immunoassay on the BioPlex platform. us Edita Garza FRENCH TRANSLATOR, BORING MILL OPERATOR FOR METAL IMMUNOLOGY ORDERABL ES Final Result Performing Organization Address [facility] Co de Phone Number [facility] [address] [place] [address], [place] * QUANTIFERON-TB GOLD PLUS (07/26/2021 9:00 AM CDT) NIL CONTROL 0.04 <8.01 IU/mL 07/28/2021 1:01 PM CDT [facility] TB ANTIGEN 1 0.00 <0.35 IU/mL 07/28/2021 1:01 PM CDT [facility] TB ANTIGEN 2 0.00 <0.35 IU/mL 07/28/2021 1:01 PM CDT [facility] MITOGEN CONTROL 9.64 >0.49 IU/mL 07/29/19 1:01 PM CDT [facility] INTEPRETATION TB NEGATIVE NEGATIVE, NEGATIVE (TB antigen response less than 25% of internal negative control value) 07/28/2021 1:01 PM CDT [facility] Comment:No immune response t o Mycobacterium tuberculosis antigens was noted. M. tuberculosis infection unlikely. Blood No Phlebotomy Charged / Unknown 07/26/2021 9:00 AM CDT 07/26/2021 2:15 PM CDT Narrative [facility] - 07/28/2021 1:01 PM CDT A [...] immunocompromised individuals. https://www.cdc.gov/tb/publications/guidelines/testing.htm us Edita L Behrends FRENCH TRANSLATOR, BORING MILL OPERATOR FOR METAL IMMUNOLOGY ORDERABL ES Final Result Performing Organization Address [facility] Co de Phone Number [facility] [address] [place] [address], [place] * HEPATITIS B SURFACE ANTIBODY (HBSAB) (07/26/2021 9:00 AM CDT) HEPATITIS B SURFACE ANTIBODY 8.33 mIU/mL [facility] ARCH [id number] B 07/27/2021 12:02 AM CDT [facility] Comment: Grayzone Range: >=8.00 to <=12.00 The immune status of the individual should be further assessed considering other factors, such as clinical status, follow-up testing, associated risk factors and the use of additional diagnostic information. Blood No Phlebotomy Charged / Unknown 07/26/2021 9:00 AM CDT 07/26/2021 2:15 PM CDT us Edita Garza FRENCH TRANSLATOR, BORING MILL OPERATOR FOR METAL CHEMISTRY ORDERABLE S Final Result Performing Organization Address [facility] Co de Phone Number [facility] [address] [place] [address], [place] documented in this encounter Visit Diagnoses Diagnosis Encounter for pre-employment examination Health examination of defined subpopulation documented in this encounter Additional Health Concerns Assessment Noted Time PHQ-9 Depression Total Score: 0 02/11/20 20 12:57 PM CDT documented as of this encounter Care Teams Vp Patient Relationship Specialty Start Date End Date Scooter White DO [address] [place] [address] [place] [address] PCP - General Internal Medicine 03/17/21 06/22/23 Yon Gutierrez MD [address] [place] [address] [address] PCP - General Family Medicine 06/23/23 Manda Singh MD Obstetrics & Gynecology 02/11/20 Malik Cates MD #[address] [address] Consulting Physician Endocrinology 12/13/21 Ulices Marino MD #[address] [address] Consulting Physician Colon and Rectal Surgery 07/06/22 Georgina Fontenot APRN, PEDIGREE RESEARCHER [address] [place] [address] Nurse Practitioner Advanced Practice Nurse 09/25/24 documented as of this encounter
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
--- OUTSIDE RECORDS SUMMARY | 2024-11-26 20:20 | XMS_ITS | Encounter Summary ---
Author Organization [facility] Address [address] [place] [address] Phone Care Team Providers Care Moisture Meter Operator Name Role Phone Manda Singh MD Unavailable [phone] Robby Torres Primary Care Provider [phone] Scooter White DO Primary Care Provider Malik Cates MD Unavailable Ulices Marino MD Unavailable Yon Gutierrez MD Primary Care Provider Georgina Fontenot APRN, [facility] Unavailable [phone] Encounter Details Date Type Department Care Team (Late st Contact Info) Description 03/09/2020 Transcribe Orders [facility] Preop/Pacu II [address] [place] [address] Walter Blake MD [address] [place] [address] Preop testing (Primary Dx) Social History Tobacco [...] COVID-19? Unable to assess 03/10/2020 1:32 PM QUILL PICKING MACHINE OPERATOR documented as of this encounter Plan of Treatment Not on file documented as of this encounter Visit Diagnoses Diagnosis Preop testing- Primary Preoperative examination, unspecified documented in this encounter Additional Health Concerns Infection Onset Date Last Indicated Resolved Time COVID - 19 03/10/2020 03/10/2020 03/16/2020 11:4 0 AM QUILL PICKING MACHINE OPERATOR Assessment Noted Time PHQ-9 Depression Total Score: 0 02/11/20 20 12:57 PM CDT documented as of this encounter Care Teams Moisture Meter Operator Relationship Specialty Start Date End Date Robby Torres [address] [place] [address] PCP - General Family Medicine 02/11/20 03/16/21 Scooter White DO [facility] [place] [address] PCP - General Internal Medicine 03/17/21 06/22/23 Yon Gutierrez MD 2 [facility] [address] [place] [address] PCP - General Family Medicine 06/23/23 Manda Singh MD Obstetrics & Gynecology 02/11/20 Malik Cates MD [address]2 [facility] [address] [place] [address] Consulting Physician Endocrinology 12/13/21 Ulices Marino MD [address] [address] Consulting Physician Colon and Rectal Surgery 07/06/22 Georgina Fontenot APRN, SUPERVISOR BAKING [address] [place] [address] Nurse Practitioner Advanced Practice Nurse 09/25/24 documented as of this encounter
--- OUTSIDE RECORDS SUMMARY | 2024-11-26 20:20 | XMS_ITS | Encounter Summary ---
Author Organization [facility] Address [address] [facility] [place] [address] Care Team Providers Care Sample Card Maker Name Role Phone Scooter White DO Primary Care Provider [phone] Encounter Details Date Type Department Care Team (Late st Contact Info) Description 11/06/2018 Lab Requisition [facility] Care Pathology Lab [address] [place] [address] Cindi Herrera MD [address] [place] [address] Enlarged lymph nodes Social History Tobacco Use Types Packs/Day Years Used Date Smoking Tobacco: Never Smokeless Tobacco: Never Alcohol Use Standard Drinks/Week Comments No 0 (1 standard drink = 0.6 oz pur e alcohol) Comments No Sex and Gender Information Value Date Recorded Sex Assigned at Not on file Legal Sex Female 1:08 PM IN SHOP SERVICE TECHNICIAN Gender Identity Not on file Sexual [...] AM CDT) Case Report Flow Cytometry Case: [id number] Authorizing Provider: Cindi Herrera MD Collected: 11/05/2018 11:02 AM Pathologist: Alexa Weinberg MD Received: 11/06/2018 02:01 PM Specimen: Cervical Lymph Node , Left 9 5:33 PM T [facility] PATHOLOGY LAB Final Diagnosis Lymph node, left cervical, flow cytometric immunophenotypic analysis: - No evidence of non-Hodgkin lymphoma. - See interpretation. 9 5:33 PM [facility] at 1733 CDT Flow [...] cytometry specimen is reviewed for quality control auditor purposes. In summary, the left cervical lymph node specimen shows no evidence of a non-Hodgkin lymphoma. Correlation with additional clinical information and the concurrent biopsy specimen is required. KR 9 5:33 PM [facility] Flow Cytometry Results Differential Result Comment Flow Cell Count /uL [id number] Total Viability % 86.0 Lymphocytes % 97 Dim CD45 Region % 0 Monocytes % 1 Granulocytes % 1 9 5:33 PM [facility] Reason for test Enlarged lymph nodes 785.6 9 5:33 PM [facility] Client Specimen ID # [id number] 9 5:33 PM [facility] Number of markers 16 were performed. A Flow CD3 A Flow CD10 A Flow CD20 A Flow CD23 A Flow CD2 A Flow CD4 A Flow CD1a A Flow CD5 A Flow CD19 A Flow CD34 A Flow CD45 A Flow CD7 A Flow CD8 A Flow CD30 A [place]+CD19+ A Lambda+CD19+ 9 5:33 PM [facility] Disclaimer Test performed at [facility], [address] [place], [place], [address]. *The established laboratory minimum viability is 70%. [...] [facility] Embedded Images 9 5:33 PM CDT [facility] Pathology/Cytolo gy ENTIRE CERVICAL LYMPH NODE / Unknown 11/05/2018 11:02 AM CDT 11/06/2018 2:01 PM CDT Cindi Herrera MD LAB - PATHOLOGY/CYTOLOGY ORDERA BLE Final Result [facility] PATHOLOGY LAB [address] [facility] [place] [address], [facility] [phone] documented in this encounter Visit Diagnoses Diagnosis Enlarged lymph nodes Enlargement of lymph nodes documented in this encounter Care Teams Sample Card Maker Relationship Specialty Start Date End Date Scooter White DO PCP - General 03/16/22 documented as of this encounter
--- OUTSIDE RECORDS SUMMARY | 2024-11-26 20:20 | XMS_ITS | Clinical Summary ---
Author Organization [facility] Address [address] [facility], [facility] [address] [place] [address] Phone Care Team Providers Care Keycase Assembler Name Role Phone Manda Singh MD Unavailable [phone] Malik Cates MD Unavailable Ulices Marino MD Unavailable Yon Gutierrez MD Primary Care Provider Georgina Fontenot [employer], RN WOUND CARE Unavailable [phone] Allergies Active Allergy Reactions Criticality Noted Date [...] 97.5 kg (215 lb) 04/19/2023 8:07 AM CHART CLERK Height 165.1 cm (5' 5) 04/19/2023 8:07 AM CHART CLERK Body Mass Index 35.78 04/19/2023 8:07 AM CHART CLERK Plan of Treatment Health Maintenance Due Date [...] this topic Medical Devices Implanted Type Area Shell Molding Roller Blast Operator Device Identifier Shelf Expiration Date Model / Serial / Lot Tube Ventilation 5mm Carey Triune - [id number] Implanted:Qty: 1 on 11/05/2018 by [facility] IMPLANT Left: Ear [employer] 04/06/2020 510-122 / 510-122 / [id number] Description:Ear tubes came f rom the same package Tube Ventilation 5mm Carey Triune - [id number] Implanted:Qty: 1 on 11/05/2018 by Jordon Deng MD at [facility] IMPLANT Right: Ear [employer] 04/06/2020 510-122 / 510-122 / [id number] Description:Ear tubes came f rom the same package Insurance * Guarantor: [facility] Account Type Relation to Patient Date of Phone Billing Address Institutional Other [address] [place] [address] Care Teams Keycase Assembler Relationship Specialty Start Date End Date Yon Gutierrez MD [address] [address] PCP - General Family Medicine 06/23/23 Manda Singh MD Obstetrics & Gynecology 02/11/20 Malik Cates MD #[address] [address] Consulting Physician Endocrinology 12/13/21 Ulices Marino MD #[address] [address] Consulting Physician Colon and Rectal Surgery 07/06/22 Georgina Fontenot, [employer], RN WOUND CARE [address] [place] [address] Nurse Practitioner Advanced Practice Nurse 09/25/24
--- OUTSIDE RECORDS SUMMARY | 2024-11-26 20:20 | XMS_ITS | Continuity of Care Document ---
Author Organization [facility] Address [address] [place] [address] [place] [address] Phone Care Team Providers Care Structural Worker Name Role Phone Robby Torres MD Unavailable [...] Date Provider Providers Copied on Encounter [facility], [address] [facility] [place], [id number], [place] tel:[phone] [facility] No Information 1 Brian Bustamante. [address], [place], [place], [address] , [place]. tel:[phone] [facility], [address], [place], [place], [address], [place] tel:[phone] [facility] No Information 0 Brian Bustamante. [address], [place], [place], [address] , [place]. tel:[phone] OFFICE/OUTPA TIENT VISIT, [facility], [address], [place], [place], [address], [place] tel:[phone] [facility] anxiety1 (chief complaint) Generalized Anxiety DisorderHypothyroid ism 0 Brian Bustamante. [address], [place], [place], [address] , [place]. tel:[phone] Referring Provider: Robby Torres [address], [place], [place], [address]. tel:[phone] OFFICE/OUTPA TIENT VISIT, [facility], [address], [place], [place], [address], [place] tel:[phone] [facility] anxiety1 (chief complaint) Generalized Anxiety DisorderGoiter 0 Brian Bustamante. [address], [place], [place], [address] , [place]. tel:[phone] Referring Provider: Robby Torres [address], [place], [place], [address]. tel:[phone] OFFICE/OUTPA TIENT VISIT, [facility], [address], [place], [place], [address], [place] tel:[phone] [facility] thyroid nodule1 (chief complaint) anxiety1 (chief complaint) GoiterGeneralized Anxiety Disorder 0 Brian Menendez [address], [place], [place], [address] , [place]. tel:[phone] Referring Provider: Gissel Banks [address], [place], [place], [address]. tel:[phone] OFFICE/OUTPA TIENT VISIT, [facility], [address], [place], [place], [address], [place] tel:[phone] [facility] anxiety1 (chief complaint) iron1 (chief complaint) thyroid1 (chief complaint) Disorder of iron metabolism, unspecifiedGoiterGe neralized Anxiety Disorder Lonnie-0 0 Brian Bustamante. [address], [place], [place], [address] , [place]. [phone] Referring Provider: Gissel Banks [address], [place], [place], [address]. tel:[phone] OFFICE/OUTPA TIENT VISIT, [facility], [address], [place], [place], [address], [place] tel:[phone] [facility] ankle pain1 (chief complaint) fatigue1 (chief complaint) thyroid1 (chief complaint) anemia1 (chief complaint) Pain in right ankleFatigueAnemiaG oiter 0 Brian Bustamante. [address], [place], [place], [address] , [place]. tel:[phone] Referring Provider: Gissel Banks [address], [place], [place], [address]. tel:[phone] OFFICE/OUTPA TIENT VISIT, [facility], [address], [place], [place], [address], [place] tel:[phone] [facility] rash1 (chief complaint) Allergic contact dermatitis due to plants, except food Aug- 0 Brian Bustamante. [address], [place], [place], [address] , [place]. [phone] Referring Provider: Gissel Banks [address], [place], [place], [address]. tel:[phone] OFFICE/OUTPA TIENT VISIT, [facility], [address], [place], [place], [address], tel:[phone] [facility] Medicine thyroid1 (chief complaint) ferritin1 (chief complaint) IgA (chief complaint) fatigue1 (chief complaint) GoiterDisorder of iron metabolism, unspecifiedVitamin D deficiency, unspecifiedRaised level of immunoglobulinAnemi aH. pylori as the cause of diseases classified elsewhereFatigue 0 Brian Bustamante. [address] [facility] [place], [address] , . tel:[phone] Referring Provider: Gissel Banks [place], [place], [address]. tel:[phone] PREV VISIT, NEW, AGE 18-37 [facility], [address] [place] [address] [employer] [place], [place], [address], tel:[phone] [facility] PHysical (chief complaint) Encntr for general adult medical exam w/o abnormal findings 0 Brian Bustamante. [address], [facility] [address], [place], [place], [address] , [place]. tel:[phone] Referring Provider: Robby Torres [address] [place] [address], [id number]. tel:[phone] Family History Family Member Type Diagnosis Age [...] Referral Referred To: Jean Carlos BolañosJoe silva [address] [facility]
[address] [place], [place] [address] Ordered: Referrals: Allopathic & Osteopathic Physicians : [...] any dysphagia ankle pain1 Pt was at [place] [employer] and she stepped on gravel [...] or swelling . fatigue1 Pt has mild chronic condition nurse mark fatigue Pt had sleep study done [...]
--- OUTSIDE RECORDS SUMMARY | 2024-11-26 20:20 | XMS_ITS | Encounter Summary ---
Author Organization [facility] Address [address] [place] [address] Phone Care Team Providers Care Sawdust Drier Name Role Phone Manda Singh MD Unavailable [phone] Robby Torres Primary Care Provider [phone] Scooter White DO Primary Care Provider Malik Cates MD Unavailable Ulices Marino MD Unavailable Yon Gutierrez MD Primary Care Provider Georgina Fontenot APRN, [facility] Unavailable [phone] Encounter Details Date Type Department Care Team (Late st Contact Info) Description 04/09/2020 Telephone [facility] [address] [address] Saud Dalton MD [address] [place] [address] Social History Tobacco Use Types Packs/Day [...] COVID-19? No / Unsure 03/20/2020 6:06 AM FLOUR TESTER documented as of this encounter Miscellaneous Notes * Telephone Encounter - Mahnaz Alaniz - 04/09/2020 2:50 PM CST Patient no showed her appointment, left voice message to call the office to reschedule. Sent out a no show letter. R TESTER documented in this encounter Plan of Treatment Not on file documented as of this encounter Visit Diagnoses Not on filedocumented in this encounter Additional Health Concerns Assessment Noted Time PHQ-9 Depression Total Score: 0 02/11/20 20 12:57 PM CDT documented as of this encounter Care Teams Sawdust Drier Relationship Specialty Start Date End Date Robby Torres [address] [place] [address] PCP - General Family Medicine 02/11/20 03/16/21 Scooter White DO [address] [place] [address] [place] [address] PCP - General Internal Medicine 03/17/21 06/22/23 Yon Gutierrez MD [address] [place] [address] [address] PCP - General Family Medicine 06/23/23 Manda Singh MD Obstetrics & Gynecology 02/11/20 Malik Cates MD #[address] [address] Consulting Physician Endocrinology 12/13/21 Ulices Marino MD #[address] [address] Consulting Physician Colon and Rectal Surgery 07/06/22 Georgina Fontenot APRN, TOPPER PRESS OPERATOR [employer] [address] [place] [address] Nurse Practitioner Advanced Practice Nurse 09/25/24 documented as of this encounter
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
--- OUTSIDE RECORDS SUMMARY | 2024-11-26 20:20 | XMS_ITS | Clinical Summary ---
Author Organization [facility] Address [address] [place] [address] Care Team Providers Care Tin Pot Operator Name Role Phone Scooter White DO Primary Care Provider [phone] Source Comments [facility],non-owned Affiliates and Associated Physician Practices is amultiple site organization consisting of ambulatory clinics and hospital sitesin [place], [place], [place] and [place]. This disclosure is being madepursuant to the Care Everywhere program and may not contain all information available regarding this patient. Last updated 18.[facility] Allergies Active Allergy Reactions Criticality Noted Date [...] Care Team Description 10/28/2024 Telephone [facility] [address] [place], [place] [id number] Silvina León Appointment 09/24/2024 1:00 PM CDT - 09/24/2024 11:59 PM CDT Hospital Encounter [facility] [address] [place] [address] Derick Mcclendon MD REAL ESTATE OFFICE SUPERVISOR Discharge Disposition: Home or Self Care 08/27/2024 12:58 PM CDT - 08/27/2024 11:59 PM CDT Hospital Encounter [facility] [address] [place] [address] Christiano Tristan MD Discharge Disposition: Home or [...] on file 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 Gender Identity Not on file Sexual Orientation [...] (HCC) Dichorionic diamniotic twin in second trimester ([facility]) 28 weeks gestation of ([facility]) Supervision of high risk in second trimester ([facility]) Obesity affecting in second trimester, unspecified obesity type ([facility]) Encounter for follow-up ultrasound of anatomy ([facility]) Encounter for ultrasound to assess growth ([facility]) SONOGRAM - COMPLETE Routine 08/27/2024 1 2:52 PM CDT Dichorionic diamniotic twin in second trimester ([facility]) History of pre-eclampsia in prior , currently ([facility]) 24 weeks gestation of ([facility]) Supervision of high risk in second trimester ([facility]) from Last 3 Months Results * SONOGRAM - COMPLETE (09/24/2024 1:09 PM CDT) Only the most recent of2 resultswithin the time period is included. Linked Results Indication ======== DA/DC Twins Incomplete Anatomy Screen x2 History of Preeclampsia, Obesity in , Class II History ====== OB History 4. Para 3 [id number] 1. live 2011. Gest. age 41 w [...] 2 lb 14 oz EFW by Hadlock (VTT-MP-[id number]-FL) EFW discordance 4.6 % appropriate Fetus B: Biometry BPD 69.2 mm 27w 6d 42% Hadlock HC 260.6 mm 28w 2d 39% Hadlock AC 252.3 mm 29w 3d 88% Hadlock Femur 51.1 mm 27w 3d 25% Hadlock Humerus 48.6 mm 28w 4d 68% Robinson HC / AC 1.03 Weight Calculation: EFW 1,242 g 69% Hadlock EFW (lb,oz) 2 lb 12 oz EFW by Hadlock (EKS-TZ-AA-FL) EFW discordance 4.6 % appropriate Fetus A: [...] Thorax RVOT view. LVOT view. 3-vessel view. 5-hkfldq-sqpsudv view. Situs. Bicaval view. Ductal arch view. [...] view. RVOT view. LVOT view. 3-vessel view. 5-bfvbyv-zzjwvzw view. Situs. Aortic arch view. Bicaval view. [...] and begin weekly testing Coding ====== Procedures 12579: US Preg Uterus Follow Up. x2 [employer] Systems PACS Anatomical Region Laterality Modality Other 09/24/2024 1:09 PM CDT R Bert Garcia MD [facility] ORDERABLES Edited Result - Final from Last 3 Months Insurance HEALTH CARE Care Teams Tin Pot Operator Relationship Specialty Start Date End Date Scooter White DO PCP - General 03/16/22
--- OUTSIDE RECORDS SUMMARY | 2024-11-26 20:21 | XMS_ITS | Continuity of Care Document ---
Author Organization [facility] Address [address] [place] [address] [address] [place] [address] Phone Care Team Providers Care Card Lacer Name Role Phone Carol OD OD, Georgina [...] - Active Procedures Procedure Date OFFICE/OUTPATIENT VISIT, [facility] Comp cont lens eval No Charge Visit N/C Glasses Check Advance Directives Directive Yes / No Effective Date File Name No Information Encounters Encounter Description Practice Location Reason(s) For Visit Diagnoses Date Provider Providers Copied on Encounter [facility], [address] [place] [address] [address], [place], [place], [id number], tel:[phone] O[facility] CONSULT [facility]RE[facility]OPE[facility] No Information 3 Carol OD Georgina. [address], [place], [place], [id number], [place]. tel:[phone] Referring Provider: Georgina Medina OD, [address], [place], [address] . tel:[phone] OFFICE/OUTPA TIENT VISIT, [facility], [address] [place] [address], [id number], tel:[phone] [facility]OPEZ blurry vision (chief complaint) dry eye (chief complaint) Krystin's thyroiditisMyo roger, bilateralTear film insufficiency of bilateral lacrimal glandsOther vitreous opacities, bilateralCorne al neovasculariza tion of both eyes 2 Derheimer OD Georgina. [address], [address] [place] [address], [id number], [place]. tel:[phone] Referring Provider: Scooter White, [address], [place], [address]. tel:[phone] [facility], [address] [place] [address], [id number], tel:[phone] [facility] KENTRELL LOPEZ No Information 6 Derheimer OD Georgina. [address], [address] [place] [address], [id number], [place]. tel:[phone] Referring Provider: Georgina Medina OD, [address], [place], [address] . tel:[phone] [facility], [address] [place] [address], [id number], tel:[phone] OPH CONSULT KENTRE[facility] LOPEZ blurry vision (chief complaint) Myopia, bilateral 6 Derheimer OD Georgina. [address], [place], [place], [id number], [place]. tel:[phone] Referring Provider: Georgina Medina OD, [address], [place], [address] . tel:[phone] [facility], [address] [place] [address], [id number], tel:[phone] OPH CONSULT [facility]OPE[facility] No Information 1 Beth Cohenl. [address], [place], [place], [id number], [place]. tel:[phone] Family History Family Member Type Diagnosis Age [...]
[2024-11-26 20:29] LABS: OBXCEM ROM Plus Negative (Negative)
--- NOTE | 2024-12-02 10:29 | PM.OBTRLD ---
OB - Triage/Final Diagnosis Visit Information Comments/Additional reasons for admission: I have assessed the risk for this patient, Yessica Mo, and determined that she would benefit from observation care. Evaluation Laboratory results: Laboratory Tests 11/26/24 19:50 Membranes Rupture Rom plus negative Final Diagnosis (1) Irregular contractions: Code(s): O47.9 - False labor, unspecified Status: Acute (2) Decreased movement: Qualifiers: Fetus number: fetus 1 of multiple gestation Trimester: third trimester Qualified Code(s): O36.8131 - Decreased movements, third trimester, fetus 1 Code(s): O36.8190 - Decreased movements, unspecified trimester, not applicable or unspecified Status: Acute
== END 2024-11-26 20:35 | disposition home or self-care (01) ==
PROVIDERS: Admitting Provider Obstetrics & Gynecology; Visit Provider Obstetrics & Gynecology
DX: O47.03 False labor before 37 completed weeks of gestation, third trimester (principal); O36.8131 Decreased fetal movements, third trimester, fetus 1; Z3A.00 Weeks of gestation of pregnancy not specified
CPT/HCPCS: 84112; G0378; G0379

== ENCOUNTER 2024-11-26 22:25 | Inpatient (IN) | payer OTHER, SELFPAY ==
[2024-11-26] VITALS (13 sets, daily range): BP systolic 135–179; BP diastolic 55–99; PULSE 110–141; O2SAT 98–100; BMI 39.6
--- OUTSIDE RECORDS SUMMARY | 2024-11-26 22:38 | XMS_ITS | Encounter Summary ---
Author Organization [facility] Address [address] [place] [address] Care Team Providers Care Communication Spec Name Role Phone Scooter White DO Primary Care Provider Encounter Details Date Type Department Care Team (Late st Contact Info) Description 11/06/2018 Lab Requisition [facility] Care [facility]ology [facility] [address] [place] [address] Cindi Herrera MD [address] [place] [address] Enlarged lymph nodes Social History Tobacco Use Types Packs/Day Years Used Date Smoking Tobacco: Never Smokeless Tobacco: Never Alcohol Use Standard Drinks/Week Comments No 0 (1 standard drink = 0.6 oz pur e alcohol) Comments No Sex and Gender Information Value Date Recorded Sex Assigned at Not on file 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 - See interpretation. 9 5:33 PM [facility] at 1733 CDT Flow Cytometry [...] cytometry specimen is reviewed for supplier quality engineering manager purposes. In summary, the left cervical lymph node specimen shows no evidence of a non-Hodgkin lymphoma. Correlation with additional clinical information and the concurrent biopsy specimen is required. KR 9 5:33 PM [facility] Flow Cytometry Results Differential Result Comment Flow Cell Count /uL [id number] Total Viability % 86.0 Lymphocytes % 97 Dim CD45 Region % 0 Monocytes % 1 Granulocytes % 1 9 5:33 PM [facility] Reason for test Enlarged lymph nodes 785.6 9 5:33 PM [facility] Client Specimen ID # [id number] 9 5:33 PM [facility] Number of markers 16 were performed. A Flow CD3 A Flow CD10 A Flow CD20 A Flow CD23 A Flow CD2 A Flow CD4 A Flow CD1a A Flow CD5 A Flow CD19 A Flow CD34 A Flow CD45 A Flow CD7 A Flow CD8 A Flow CD30 A [place]+CD19+ A Lambda+CD19+ 9 5:33 PM [facility] Disclaimer Test performed at [facility], [address] [place], [place], [address]. *The established laboratory minimum viability is 70%. [...] complexity clinical testing. 9 5:33 PM CDT [facility] Embedded Images 9 5:33 PM CDT [facility] Pathology/Cytolo gy ENTIRE CERVICAL LYMPH NODE / Unknown 11/05/2018 11:02 AM CDT 11/06/2018 2:01 PM CDT Cindi Herrera MD LAB - PATHOLOGY/CYTOLOGY ORDERA BLE Final Result [facility] [address] [facility] [place] [address], [facility] [phone] documented in this encounter Visit Diagnoses Diagnosis Enlarged lymph nodes Enlargement of lymph nodes documented in this encounter Care Teams Communication Spec Relationship Specialty Start Date End Date Scooter White DO PCP - General 03/16/22 documented as of this encounter
--- OUTSIDE RECORDS SUMMARY | 2024-11-26 22:38 | XMS_ITS | Continuity of Care Document ---
Author Organization [facility] Address [address] [place] [address] [place] [address] Phone Care Team Providers Care Stone Derrickman And Rigger Name Role Phone Robby Torres MD Unavailable [...] Copied on Encounter [facility], [address] [facility] [place], [address], [place] tel:[phone] [facility] No Information 1 Brian Bustamante. [address], [place], [place], [address] , [place]. tel:[phone] [facility], [address], [place], [place], [address], [place] tel:[phone] [facility] No Information 0 Brian Bustamante. [address], [place], [place], [address] , [place]. tel:[phone] OFFICE/OUTPA TIENT VISIT, [facility], [address], [place], [place], [address], [place] tel:[phone] [facility] anxiety1 (chief complaint) Generalized Anxiety DisorderHypothyroid ism 0 Brian Bustamante. [address], [place], [place], [address] , [place]. tel:[phone] Referring Provider: Robby Torres [address], [place], [place], [address]. tel:[phone] OFFICE/OUTPA TIENT VISIT, [facility], [address], [place], [place], [address], [place] tel:[phone] [facility] anxiety1 (chief complaint) Generalized Anxiety DisorderGoiter 0 Brian Bustamante. [address], [place], [place], [address] , [place]. tel:[phone] Referring Provider: Robby Torres [address], [place], [place], [address]. tel:[phone] OFFICE/OUTPA TIENT VISIT, [facility], [address], [place], [place], [address], [place] tel:[phone] [facility] thyroid nodule1 (chief complaint) anxiety1 (chief complaint) GoiterGeneralized Anxiety Disorder 0 Brian Menendez [address], [place], [place], [address] , [place]. tel:[phone] Referring Provider: Gissel Banks [address], [place], [place], [address]. tel:[phone] OFFICE/OUTPA TIENT VISIT, [facility], [address], [place], [place], [address], [place] tel:[phone] [facility] anxiety1 (chief complaint) iron1 (chief complaint) thyroid1 (chief complaint) Disorder of iron metabolism, unspecifiedGoiterGe neralized Anxiety Disorder Lonnie-0 0 Brian Bustamante. [address], [place], [place], [address] , [place]. [phone] Referring Provider: Gissel Banks [address], [place], [place], [address]. tel:[phone] OFFICE/OUTPA TIENT VISIT, [facility], [address], [place], [place], [address], [place] tel:[phone] [facility] ankle pain1 (chief complaint) fatigue1 (chief complaint) thyroid1 (chief complaint) anemia1 (chief complaint) Pain in right ankleFatigueAnemiaG oiter 0 Brian Bustamante. [address], [place], [place], [address] , [place]. tel:[phone] Referring Provider: Gissel Banks [address], [place], [place], [address]. tel:[phone] OFFICE/OUTPA TIENT VISIT, [facility], [address], [place], [place], [address], [place] tel:[phone] [facility] rash1 (chief complaint) Allergic contact dermatitis due to plants, except food Aug- 0 Brian Bustamante. [address], [place], [place], [address] , [place]. [phone] Referring Provider: Gissel Banks [address], [place], [place], [address]. tel:[phone] OFFICE/OUTPA TIENT VISIT, [facility], [address], [place], [place], [address], tel:[phone] [facility] Medicine thyroid1 (chief complaint) ferritin1 (chief complaint) IgA (chief complaint) fatigue1 (chief complaint) GoiterDisorder of iron metabolism, unspecifiedVitamin D deficiency, unspecifiedRaised level of immunoglobulinAnemi aH. pylori as the cause of diseases classified elsewhereFatigue 0 Brian Bustamante. [address] [facility] [place], [address] , . tel:[phone] Referring Provider: Gissel Banks [place], [place], [address]. tel:[phone] PREV VISIT, NEW, AGE 18-39 [facility], [address] [place] [address] [employer] [place], [place], [address], tel:[phone] [facility] PHysical (chief complaint) Encntr for general adult medical exam w/o abnormal findings 0 Brian Bustamante. [address], [facility] A, [place], [place], [address] , [place]. tel:[phone] Referring Provider: Robby Torres [address] [place] [address], [id number]. tel:[phone] Family History Family Member Type Diagnosis Age [...] Referral Referred To: Jean Carlos BolañosJoe silva [address] [facility]
[address] [place], [place] [id number] Ordered: Referrals: Allopathic & Osteopathic Physicians : [...] any dysphagia ankle pain1 Pt was at [employer] and she stepped on gravel [...] or swelling . 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
--- OUTSIDE RECORDS SUMMARY | 2024-11-26 22:38 | XMS_ITS | Encounter Summary ---
Author Organization [facility] Address [address] [place] [address] Phone Care Team Providers Care Parent Educator Name Role Phone Manda Singh MD Unavailable [phone] Robby Torres Primary Care Provider [phone] Scooter White DO Primary Care Provider Malik Cates MD Unavailable Ulices Marino MD Unavailable Yon Gutierrez MD Primary Care Provider Georgina Fontenot APRN, [facility] Unavailable [phone] Encounter Details Date Type Department Care Team (Late st Contact Info) Description 03/09/2020 [facility] [address] [place] [address] Walter Blake MD [address] [place] [address] Preop testing (Primary Dx) Social History Tobacco [...] COVID-19? 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 documented as of this encounter Plan of Treatment Not on file documented as of this encounter Visit Diagnoses Diagnosis Preop testing- Primary Preoperative examination, unspecified documented in this encounter Additional Health Concerns Infection Onset Date Last Indicated Resolved Time COVID - 19 03/10/2020 03/10/2020 03/16/2020 11:4 0 AM FILING OR REGISTRY CLERK Assessment Noted Time PHQ-9 Depression Total Score: 0 02/11/20 20 12:57 PM CDT documented as of this encounter Care Teams Parent Educator Relationship Specialty Start Date End Date Robby Torres [address] [facility] [place] [address] PCP - General Family Medicine 02/11/20 03/16/21 Scooter White DO [facility] [place] [address] PCP - General Internal Medicine 03/17/21 06/22/23 Yon Gutierrez MD 2 [facility] [address] [place] [address] PCP - General Family Medicine 06/23/23 Manda Singh MD Obstetrics & Gynecology 02/11/20 Malik Cates MD #2 [facility] [address] [place] [address] Consulting Physician Endocrinology 12/13/21 Ulices Marino MD #[address] [address] Consulting Physician Colon and Rectal Surgery 07/06/22 Georgina Fontenot APRN, CYBER SYSTEMS ADMINISTRATOR #[address] [place] [address] Nurse Practitioner Advanced Practice Nurse 09/25/24 documented as of this encounter
--- OUTSIDE RECORDS SUMMARY | 2024-11-26 22:38 | XMS_ITS | Continuity of Care Document ---
Author Organization [facility] Address [address] [place] [address] [address] [place] [address] Phone Care Team Providers Care Infantry Weapons Officer Name Role Phone Carol OD OD, [...] Active Procedures Procedure Date OFFICE/OUTPATIENT VISIT, [facility] Comp cont lens eval No Charge Visit N/C Glasses Check Advance Directives Directive Yes / No Effective Date File Name No Information Encounters Encounter Description Practice Location Reason(s) For Visit Diagnoses Date Provider Providers Copied on Encounter [facility], [address] [place] [address] [address], [place], [place], [address], tel:[phone] [facility] No Information 3 Carol OD Georgina. [address] [facility], [address], [place], [place], [address], [place]. tel:[phone] Referring Provider: Georgina Medina OD, [address] [facility] [address], [place], [address] . tel:[phone] OFFICE/OUTPA TIENT VISIT, [facility], [address] [place] [address], [id number], tel:[phone] [facility] blurry vision (chief complaint) dry eye (chief complaint) Krystin's thyroiditisMyo roger, bilateralTear film insufficiency of bilateral lacrimal glandsOther vitreous opacities, bilateralCorne al neovasculariza tion of both eyes 2 Derheimer OD Georgina. [address], [address] [place] [address], [id number], [place]. tel:[phone] Referring Provider: Scooter White, [address], [place], [address]. tel:[phone] [facility], [address] [place] [address], [id number], tel:[phone] [facility] No Information 6 Derheimer OD Georgina. [address], [address] [place] [address], [id number], [place]. tel:[phone] Referring Provider: Georgina Medina OD, [address], [place], [address] . tel:[phone] [facility], [address] [place] [address], [id number], tel:[phone] [facility] blurry vision (chief complaint) Myopia, bilateral 6 Derheimer OD Georgina. [address], [place], [place], [address], [place]. tel:[phone] Referring Provider: Georgina Medina OD, [address], [place], [address] . tel:[phone] [facility], [address] [place] [address], [id number], tel:[phone] [facility] No Information 1 Beth Cohenl. [address], [place], [place], [address], [place]. tel:[phone] Family History Family Member Type Diagnosis Age [...]
--- OUTSIDE RECORDS SUMMARY | 2024-11-26 22:38 | XMS_ITS | Encounter Summary ---
Author Organization [facility] Address [address] [place] [address] Phone Care Team Providers Care Photo Checker Name Role Phone Manda Singh MD Unavailable [phone] Scooter White DO Primary Care Provider Malik Cates MD Unavailable Ulices Marino MD Unavailable Yon Gutierrez MD Primary Care Provider Georgina Fontenot APRN, AUTOMATED PROCESS OPERATOR Unavailable [phone] Encounter Details Date Type Department Care Team (Late st Contact Info) Description 07/26/2021 [facility] [address] [place] [address] Edita Garza, TRUNG, HOUSE MOVER SUPERVISOR [address] [place] [address] Encounter for pre-employment examination Social [...] >=1.1 AI 07/26/2021 10:00 PM CDT [facility] Blood No Phlebotomy Charged / Unknown 07/26/2021 9:00 AM CDT 07/26/2021 2:15 PM CDT Narrative [facility] - 07/26/2021 10:00 PM CDT <= 0.8 Negative. No detectable VZV IgG antibody. 0.9 - 1.0 Equivocal >=1.1 Positive Antibody testing was performed by multiplex flow immunoassay on the BioPlex platform. Edita L Behrends DIRECTOR OF GROUP SALES, HOUSE MOVER SUPERVISOR IMMUNOLOGY ORDERABL ES Final Result Performing Organization Address [facility] de Phone Number [facility] [address] [place] [address], [place] * (ABNORMAL) RUBEOLA (MEASLES) IGG (07/26/2021 [...] on the BioPlex platform. Edita L Behrends DIRECTOR OF GROUP SALES, HOUSE MOVER SUPERVISOR IMMUNOLOGY ORDERABL ES Final Result Performing Organization Address [facility] de Phone Number [facility] [address] [place] [address], [place] * RUBELLA IMMUNITY IGG (07/26/2021 9:00 AM CDT) [facility]UN[facility] Immune Immune, Invalid 07/26/2021 10:00 PM CDT [facility] Blood No Phlebotomy Charged / Unknown 07/26/2021 9:00 AM CDT 07/26/2021 2:15 PM CDT Narrative [facility] - 07/26/2021 10:00 PM CDT Antibody testing was performed by multiplex flow immunoassay on the BioPlex platform. us Edita Garza DIRECTOR OF GROUP SALES, HOUSE MOVER SUPERVISOR CHEMISTRY ORDERABLE S Final Result Performing Organization Address [facility] Co de Phone Number [facility] [address] [place] [address], [place] * MUMPS IGG (07/26/2021 9:00 AM [...] on the BioPlex platform. us Edita Garza DIRECTOR OF GROUP SALES, HOUSE MOVER SUPERVISOR IMMUNOLOGY ORDERABL ES Final Result Performing Organization Address [facility] Co de Phone Number [facility] [address] [place] [address], [place] * QUANTIFERON-TB GOLD PLUS (07/26/2021 9:00 [...] immunocompromised individuals. https://www.cdc.gov/tb/publications/guidelines/testing.htm us Edita L Behrends DIRECTOR OF GROUP SALES, HOUSE MOVER SUPERVISOR IMMUNOLOGY ORDERABL ES Final Result Performing Organization Address [facility] Co de Phone Number [facility] [address] [place] [address], [place] * HEPATITIS B SURFACE ANTIBODY (HBSAB) (07/26/2021 9:00 AM CDT) HEPATITIS B SURFACE ANTIBODY 8.33 mIU/mL [facility] ARCH [id number] B 07/27/2021 12:02 AM CDT [facility] Comment: Grayzone Range: >=8.00 to <=12.00 The immune status of the individual should be further assessed considering other factors, such as clinical status, follow-up testing, associated risk factors and the use of additional diagnostic information. Blood No Phlebotomy Charged / Unknown 07/26/2021 9:00 AM CDT 07/26/2021 2:15 PM CDT us Edita Garza DIRECTOR OF GROUP SALES, HOUSE MOVER SUPERVISOR CHEMISTRY ORDERABLE S Final Result Performing Organization Address [facility] Co de Phone Number [facility] [address] [place] [address], [place] documented in this encounter Visit Diagnoses Diagnosis Encounter for pre-employment examination Health examination of defined subpopulation documented in this encounter Additional Health Concerns Assessment Noted Time PHQ-9 Depression Total Score: 0 02/11/20 20 12:57 PM CDT documented as of this encounter Care Teams Photo Checker Relationship Specialty Start Date End Date Scooter White DO [address] [place] [address] [place] [address] PCP - General Internal Medicine 03/17/21 06/22/23 Yon Gutierrez MD [address] [place] [address] [address] PCP - General Family Medicine 06/23/23 Manda Singh MD Obstetrics & Gynecology 02/11/20 Malik Cates MD #[address] [address] Consulting Physician Endocrinology 12/13/21 Ulices Marino MD #[address] [address] Consulting Physician Colon and Rectal Surgery 07/06/22 Georgina Fontenot APRN, AUTOMATED PROCESS OPERATOR #[address] [place] [address] Nurse Practitioner Advanced Practice Nurse 09/25/24 documented as of this encounter
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
--- OUTSIDE RECORDS SUMMARY | 2024-11-26 22:38 | XMS_ITS | Encounter Summary ---
Author Organization [facility] Address [address] [place] [address] Phone Care Team Providers Care Senior Strategy Manager Name Role Phone Manda Singh MD Unavailable [phone] Robby Torres Primary Care Provider [phone] Scooter White DO Primary Care Provider Malik Cates MD Unavailable Ulices Marino MD Unavailable Yon Gutierrez MD Primary Care Provider Georgina Fontenot APRN, [facility] Unavailable [phone] Encounter Details Date Type Department Care Team (Late st Contact Info) Description 04/09/2020 Telephone [facility] [address] [address] [address] Saud Dalton MD [address] [place] [phone] Social History Tobacco Use Types Packs/Day [...] COVID-19? No / Unsure 03/20/2020 6:06 AM PHOTONICS TECHNICIAN documented as of this encounter Miscellaneous Notes * Telephone Encounter - Mahnaz Alaniz - 04/09/2020 2:50 PM CST Patient no showed her appointment, left voice message to call the office to reschedule. Sent out a no show letter. ONICS TECHNICIAN documented in this encounter Plan of Treatment Not on file documented as of this encounter Visit Diagnoses Not on filedocumented in this encounter Additional Health Concerns Assessment Noted Time PHQ-9 Depression Total Score: 0 02/11/20 20 12:57 PM CDT documented as of this encounter Care Teams Senior Strategy Manager Relationship Specialty Start Date End Date Robby Torres [address] [place] [address] PCP - General Family Medicine 02/11/20 03/16/21 Scooter White DO [address] [place] [address] [place] [address] PCP - General Internal Medicine 03/17/21 06/22/23 Yon Gutierrez MD [address] [place] [address] [address] PCP - General Family Medicine 06/23/23 Manda Singh MD Obstetrics & Gynecology 02/11/20 Malik Cates MD [address] [address] Consulting Physician Endocrinology 12/13/21 Ulices Marino MD [address] [address] Consulting Physician Colon and Rectal Surgery 07/06/22 Georgina Fontenot APRN, [facility] [address] [place] [address] Nurse Practitioner Advanced Practice Nurse 09/25/24 documented as of this encounter
--- OUTSIDE RECORDS SUMMARY | 2024-11-26 22:38 | XMS_ITS | Clinical Summary ---
Author Organization [facility] Address [address] [place] [address] Care Team Providers Care Campus President Name Role Phone Scooter White DO Primary Care Provider [phone] Source Comments [facility],non-owned Affiliates and Associated Physician Practices is amultiple site organization consisting of ambulatory clinics and hospital sitesin [place], [place], [place] and [place]. This disclosure is being madepursuant to the Care Everywhere program and may not contain all information available regarding this patient. Last updated 18.[facility] Allergies Active Allergy Reactions Criticality Noted Date [...] Type Department Care Team Description 10/28/2024 Telephone [facility] [address] [place], [place] [id number] Silvina León Appointment 09/24/2024 1:00 PM CDT - 09/24/2024 11:59 PM CDT Hospital Encounter [facility] [address] [place] [address] Derick Mcclendon MD PLASTIC MIXER Discharge Disposition: Home or Self Care 08/27/2024 12:58 PM CDT - 08/27/2024 11:59 PM CDT Hospital Encounter [facility] [address] [place] [address] Christiano Tristan MD Discharge Disposition: Home or [...] on file Legal Sex Female 1:08 PM GRADUATION COACH Gender Identity Not on file Sexual Orientation [...] Dichorionic diamniotic twin in second trimester ([facility]) 28 weeks gestation of ([facility]) Supervision of high risk in second trimester ([facility]) Obesity affecting in second trimester, unspecified obesity type ([facility]) Encounter for follow-up ultrasound of anatomy ([facility]) Encounter for ultrasound to assess growth ([facility]) SONOGRAM - COMPLETE Routine 08/27/2024 1 2:52 PM CDT Dichorionic diamniotic twin in second trimester ([facility]) History of pre-eclampsia in prior , currently ([facility]) 24 weeks gestation of ([facility]) Supervision of high risk in second trimester ([facility]) from Last 3 Months Results * SONOGRAM - COMPLETE (09/24/2024 1:09 PM CDT) Only the most recent of2 resultswithin the time period is included. Linked Results Indication ======== DA/DC Twins Incomplete Anatomy Screen x2 History of Preeclampsia, Obesity in , Class II History ====== OB History 4. Para 3 [id number] 1. live 2011. Gest. age 39 w [...] 2 lb 14 oz EFW by Hadlock ([id number]) EFW discordance 4.6 % appropriate Fetus B: Biometry BPD 69.2 mm 27w 6d 42% Hadlock HC 260.6 mm 28w 2d 39% Hadlock AC 252.3 mm 29w 3d 88% Hadlock Femur 51.1 mm 27w 3d 25% Hadlock Humerus 48.6 mm 28w 4d 68% Robinson HC / AC 1.03 Weight Calculation: EFW 1,242 g 69% Hadlock EFW (lb,oz) 2 lb 12 oz EFW by Hadlock ([id number]) EFW discordance 4.6 % appropriate Fetus A: [...] Thorax RVOT view. LVOT view. 3-vessel view. 0-cbsmez-twbmhpl view. Situs. Bicaval view. Ductal arch view. [...] view. RVOT view. LVOT view. 3-vessel view. 3-yufwhs-sswcfkg view. Situs. Aortic arch view. Bicaval view. [...] and begin weekly testing Coding ====== Procedures 00151: US Preg Uterus Follow Up. x2 [email or web address] PACS Anatomical Region Laterality Modality Other 09/24/2024 1:09 PM CDT R Bert Garcia MD [facility] ORDERABLES Edited Result - Final from Last 3 Months Insurance HEALTH CARE Care Teams Campus President Relationship Specialty Start Date End Date Scooter White DO PCP - General 03/16/22
--- OUTSIDE RECORDS SUMMARY | 2024-11-26 22:38 | XMS_ITS | Clinical Summary ---
Author Organization [facility] Address [address] [facility] [address] [place] [address] Phone Care Team Providers Care Clinical Research Coordinator Name Role Phone Manda Singh MD Unavailable [phone] Malik Cates MD Unavailable Ulices Marino MD Unavailable Yon Gutierrez MD Primary Care Provider Georgina Fontenot SEAFOOD HARVESTER, AUTOMATION QA ANALYST Unavailable [phone] Allergies Active Allergy Reactions Criticality Noted Date [...] 97.5 kg (215 lb) 04/19/2023 8:07 AM DECK MATE Height 165.1 cm (5' 5) 04/19/2023 8:07 AM DECK MATE Body Mass Index 35.78 04/19/2023 8:07 AM DECK MATE Plan of Treatment Health Maintenance Due Date [...] this topic Medical Devices Implanted Type Area Gum Machine Operator Device Identifier Shelf Expiration Date Model / Serial / Lot Tube Ventilation 5mm Carey Triune - [id number] Implanted:Qty: 1 on 11/05/2018 by Jordon Deng MD at [facility] IMPLANT Left: Ear [employer] 04/06/2020 510-122 / 510-122 / [id number] Description:Ear tubes came f rom the same package Tube Ventilation 5mm Carey Triune - [id number] Implanted:Qty: 1 on 11/05/2018 by Jordon Deng MD at [facility] IMPLANT Right: Ear [employer] 04/06/2020 510-122 / 510-122 / [id number] Description:Ear tubes came f rom the same package Insurance * Guarantor: [facility] Account Type Relation to Patient Date of Phone Billing Address Institutional Other [id number] [place] [address] Care Teams Clinical Research Coordinator Relationship Specialty Start Date End Date Yon Gutierrez MD [address] [address] PCP - General Family Medicine 06/23/23 Manda Singh MD Obstetrics & Gynecology 02/11/20 Malik Cates MD #[address] [phone] Consulting Physician Endocrinology 12/13/21 Ulices Marino MD [address] [address] Consulting Physician Colon and Rectal Surgery 07/06/22 Georgnia Fontenot, SEAFOOD HARVESTER, AUTOMATION QA ANALYST [address] [place] [address] Nurse Practitioner Advanced Practice Nurse 09/25/24
[2024-11-26] MEDS: AMPICILLIN SODIUM 2 GM in SODIUM CHLORIDE 0.9% IV 100 ML 200 ML IVPB (22:45)
[2024-11-26] MEDS: LACTATED RINGERS 1,000 ML 125 ML IV CONT (22:45)
[2024-11-26 22:53] LABS: Hematocrit 36.5 % (37.0-47.0); Hemoglobin 12.0 g/dL (12.0-15.0); Immature Granulocyte Percent A 0.7 % (0-0.5); Lymphocytes Absolute Auto 1.40 K/mm3 (0.9-3.2); Mean Corpuscular HGB Conc 32.9 g/dl (32-36); Mean Corpuscular Hemoglobin 27.0 pg (26-34); Mean Corpuscular Volume 82.2 fl (80-100); Nucleated Red Blood Cells Absolute Auto 0.000 K/mm3 (0.0-0.012); Nucleated Red Blood Cells Perc 0.0 % (0.0-0.2); Platelet Count Result 276 k/mm3 (150-375); Red Blood Count 4.44 M/mm3 (4.2-5.4); White Blood Count 19.1 K/mm3 (4.5-10.0)
--- NOTE | 2024-11-26 23:25 | WPDANESEPP ---
Anes - Eval Pre Procedure Procedure: labor pain management Date/Time: 11/26/24 23:25 Surgeon: Ehsan Preop Diagnosis: pain during labor, twin gestation Pre Op Diagnosis: Labor Patient Data Age: 29 Gender: F Height: 1.65 m Weight: 108.18 kg Last Vital Signs Pulse 139 H 11/26/24 23:09 BP 135/55 L 11/26/24 23:09 Pulse Ox 99 11/26/24 23:08 Allergies Allergy/AdvReac Type Severity Reaction Status Date / Time prednisone Allergy Intermediate Hives Verified 11/26/24 06:52 Home Medications ?Medication ?Instructions ?Recorded ?Confirmed ?Type pantoprazole 40 mg tablet,delayed 40 mg PO Q12H 08/08/24 11/22/24 History release cyclobenzaprine 5 mg tablet 5 mg PO Q12H 10/31/24 11/22/24 History vits 115-iron fum 29 mg 1 tablet PO DAILY 10/31/24 11/22/24 History iron-folic acid 1 mg-dss 25 mg tablet nifedipine 10 mg capsule 10 mg PO Q6H PRN contractions #60 11/03/24 11/22/24 Rx caps nifedipine 60 mg tablet,extended 60 mg PO DAILY 11/11/24 11/22/24 History release 24 hr aspirin 81 mg chewable tablet 81 mg PO DAILY 11/16/24 11/22/24 History Laboratory Tests 11/26/24 22:48 WBC 19.1 H K/mm3 (4.5-10.0) RBC 4.44 M/mm3 (4.2-5.4) Hgb 12.0 g/dL (12.0-15.0) Hct 36.5 L % (37.0-47.0) MCV 82.2 fl (80-100) MCH 27.0 pg (26-34) MCHC 32.9 g/dl (32-36) RDW 12.6 % (11.5-14.5) Plt Count 276 k/mm3 (150-375) MPV 10.7 H fl (7.4-10.4) Immature Gran % (Auto) 0.7 H % (0-0.5) Neut % (Auto) 85.8 H % (45.5-73.1) Lymph % (Auto) 7.3 L % (18.3-44.2) [place] % (Auto) 5.8 % (2.6-8.5) Eos % (Auto) 0.1 % (0-4.4) Baso % (Auto) 0.3 % (0.2-1.2) Lymph # (Auto) 1.40 K/mm3 (0.9-3.2) [place] # (Auto) 1.1 H K/mm3 (0.1-0.6) Eos # (Auto) 0.0 K/mm3 (0-0.3) Baso # (Auto) 0.1 K/mm3 (0.0-0.1) Abs Immat Gran (auto) 0.14 H K/mm3 (0.00-0.031) Absolute Neuts (auto) 16.4 H K/mm3 (1.3-6.7) Absolute Nucleated RBC 0.000 K/mm3 (0.0-0.012) Nucleated RBC % 0.0 % (0.0-0.2) Blood Type A Positive Antibody Screen Pending Patient hx anesthesia problems: none Family hx anesthesia problems: none Results Review: All pre-operative results and documents have been reviewed as part of the pre-operative evaluation. [facility] Past Medical History Medical History HTN (hypertension) Hx of hemorrhoids Wears glasses History of adverse reaction to anesthesia GERD (gastroesophageal reflux disease) Acute hemorrhoid Anxiety Hypothyroid Surgical History Surgical History History of ovarian cystectomy H/O tubal ligation History of lumpectomy Hx of cholecystectomy History of appendectomy Family History Family History Father Hypertension Mother Alcoholism Thyroid disorder Grandparent Breast cancer Hypertension Thyroid disorder Lung cancer Social History Social History Smoking status: Never smoker Substance use: never Substance use type: does not use Do You Feel Safe in your Home?: Yes Lack of Transportation: No Lack of Food: Never True Current Housing: I Have Housing Concerned About Future Housing: No Difficulty Paying Gas/Electric Bills: No Difficulty Paying for Meds: No Currently Unemployed: No Education: High School Diploma/GED Difficulty w/ Childcare or Family Care: No Living arrangements: with family Gender identity (if verbalized by the patient): Female Spiritual care concerns: No Exam Day of Procedure 11/26/24 23:25 Patient weight: obese (bmi 39.7) Lungs: clear to auscultation Airway: Mallampati scale class II
--- NOTE | 2024-11-26 23:27 | P.PNAN_ITS ---
Anes - Eval Final PreProcedure Day of Procedure 11/26/24 23:27 Last oral intake: 6 hours (7 hours solid, sips of clear liquid) ASA classification: II Emergent: yes Anesthetic plan: proceed (anesthesia on standby for twin delivery) Anesthesia type and monitoring: regional (epidural, geta as backup) Results Review: All pre-operative results and documents have been reviewed as part of the pre- operative evaluation. Informed Consent: The patient's anesthetic plan and its attendant risks and benefits were discussed with the patient/family/POA. Questions were solicited and answers provided to the satisfaction of the patient/family/POA.
[2024-11-26 23:41] LABS: Syphilis IgG/IgM Antibody Non-Reactive (Nonreactive)
[2024-11-27] VITALS (14 sets, daily range): BP systolic 120–148; BP diastolic 72–89; PULSE 78–125; RESP 16–20; TEMP 36.4–37.4; O2SAT 97–99
[2024-11-27] MEDS: OXYTOCIN 30 UNITS/NS 500 ML 30 UNITS/500 ML BAG 999 UNITS IV CONT (00:20)
--- NOTE | 2024-11-27 00:34 | WPDOBADMIT ---
Obstetrics - Admit Note Admission Note: record reviewed. No pertinent additions to the history and/or any subsequent changes in the physical findings that are not consistent with the expected course of the were found. Patient presented at 2244 for increased frequency and intensity of contractions. SVE 8cm with bulging bag. Desires epidural. Additions to the history and/or subsequent changes in the physical findings follow. None.
--- NOTE | 2024-11-27 00:37 | PM.OBPRVD ---
OB - Vaginal Delivery Note Procedure Delivery date: 11/27/24 Events: Chronic Hypertension (on procardia XL), Gestational Diabetes (A2), Multiple Gestation (di-di twins) and Positive Group B Strep (GBS) Induction method: None Delivery augmentation: Rupture of Membranes Delivery monitor: External FHT and External Uterine Route of delivery: (x2) Episiotomy description: None Specimen: No Quantitative Blood Loss (ml): 100 Anesthesia type: Epidural Disposition: Floor Complications: No immediate complications Narrative: See H&P and notes for details on patient's admission and labor. She was moved to the OR and AROM was performed of baby A's membranes with clear fluid. She progressed to complete cervical dilation and at the appropriate time began pushing. With adequate expulsive efforts by the mother, the baby's head was delivered without difficulty. Nuchal cord was present x1 and was easily reduced. The baby's right shoulder was anterior and delivered under the pubic symphysis without difficulty. The posterior shoulder and the rest of the baby delivered without difficulty. The umbilical cord was doubly clamped and cut after 60 seconds of delayed cord clamping. Care of the was then assumed by the nursing staff. heart tones were reassuring of baby B following delivery of baby A. Cephalic presentation was confirmed. AROM was performed of baby B's membranes with clear fluid. She again progressed to complete cervical dilation and at the appropriate time began pushing. With adequate expulsive efforts by the mother, the baby's head was delivered without difficulty. Nuchal cord was not present. The baby's right shoulder was anterior and delivered under the pubic symphysis without difficulty. The posterior shoulder and the rest of the baby delivered without difficulty. The umbilical cord was doubly clamped and cut after 60 seconds of delayed cord clamping. Care of the was then assumed by the nursing staff. Both placentas delivered without difficulty. Twins 1: Date of : 11/27/24 Time of : 00:03 Weeks of gestation at delivery: 36 gender: Female Weight (pounds): 7 Weight (ounces): 9 presentation: vertex position: Left Occiput Anterior Placental delivery description: Expressed Cord Vessel Description: 3 Vessels, Nuchal Cord, Reduced and Delayed Cord Clamping 2: Date of : 11/27/24 Time of : 00:17 Weeks of gestation at delivery: 36 gender: Female Weight (pounds): 7 Weight (ounces): 0 presentation: vertex position: Left Occiput Anterior Placental delivery description: Expressed Cord Vessel Description: 3 Vessels, Delayed Cord Clamping and Around Extremity (left leg)
[2024-11-27] MEDS: OXYTOCIN 30 UNITS/NS 500 ML 30 UNITS/500 ML BAG 125 UNITS IV CONT ×2 (00:56→01:04)
--- NOTE | 2024-11-27 01:16 | PC.NURSE ---
11/26/2024 2313-Pt arrived to OR and transferred to OR table and placed in stirrups 2320- AROM for Baby A occurred . Clear fluid noted. SVE performed by . SVE noted to be 9.5 at this time 2335- SVE- COMPLETE 2336- Petit catheter removed intact 50ml of clear/ yellow urine. Pt began pushing at this time. Descent of head of Baby A noted. 0003- TIME OF BABY A 11/27/2024 0015- AROM for Baby B occurred. Clear fluid noted. Pushing began at this time. 0017- TIME OF BABY B 0022- PLACENTA DELIVERY TIME 0028- Epidural dosage discontinued
[2024-11-27] MEDS: ceFAZolin 2 GM in SODIUM CHLORIDE 0.9% IV 50 ML 100 ML IVPB (01:38)
--- NOTE | 2024-11-27 01:39 | LDADM ---
This patient, Yessica Mo, was admitted to Labor/Delivery/Recovery 104 on 11/26/24 at 22:25. Plans for labor, pain management and were discussed with patient. Patient/family oriented to hospital policies and general routines including ID bracelet, bed and alarms, visiting hours, pain management, procedures, bathroom and other care routines, personal items, smoking policy, room service/diet and guest tray routines, security routines, and visiting hours. Patient/Family are encouraged to report perceived risks to care and to ask questions if they do not understand what they are told or what they should do. See OBIX for further documentation.
--- NOTE | 2024-11-27 02:05 | PC.NURSE ---
RN called MD. RN reported large clot expelled upon last fundal massage and total recovery QBL of 325 at time of call.RN reported bleeding had decreased since clot expelled. Orders received.
--- NOTE | 2024-11-27 07:19 | S_PTH ---
PATIENT: Yessica Mo LOC: [facility] U#:[id number] AGE/SX: 29/F ROOM: 277 RE11/26/[address]: Eloy Moser MD : 1995 BED: 00 DIS: 11/29/2024 SPEC #: [id number] RECD: 11/27/24 07:39 STATUS: JULIEN REQ #: [id number] MICHAEL: 11/27/24 07:[address]: Messi Garcia DEPT: [facility] Surgical RECD BY: Etelvina Parish ENTERED: 11/27/24 07:39 SP TYPE: Surgical OTHR DR: UNKNOWN,DOCTOR Tissues: A - Twin Placenta Procedures: Hematoxylin and Eosin Stain Gross and Microscopic Level 5
--- NOTE | 2024-11-27 08:05 | PC.NURSE ---
Introductions were made, then consulted with patient to assess needs related to . Mother led the conversation with her?plans to feed?her and the?experience so far. Mother expresses that she is having difficulty waking the twins for feedings. Encouraged understanding of the benefits of skin to skin, stimulating with massage touch, changing positions to encourage wakefulness, how to watch for early feeding cues and responsive feeding. Mother works well with her infants and does have good knowledge about . This RN attempted to wake infants for feedings but was unsuccessful. Mother will bottle feed infants due to blood sugar testing. Discussed pumping with parents, FOB will get patients personal breast pump from home. Mother will call with next feeding and/or when her breast pump arrives. Primary RN updated.
[2024-11-27] MEDS: ACETAMINOPHEN 325 MG TABLET 650 MG PO ×2 (10:22→19:46)
[2024-11-27] MEDS: MULTIVIT/MIN/PREN/FOL AC/IRON TABLET 1 TAB PO (10:22)
[2024-11-28] VITALS (7 sets, daily range): BP systolic 126–142; BP diastolic 75–95; PULSE 72–89; RESP 16–20; TEMP 36.4–36.9; O2SAT 98–100
[2024-11-28] MEDS: ACETAMINOPHEN 325 MG TABLET 650 MG PO ×4 (01:36→22:45)
[2024-11-28] MEDS: IBUPROFEN 600 MG TABLET PO ×4 (01:37→22:46)
--- NOTE | 2024-11-28 05:48 | P.PNOB_ITS ---
OB - PN: Subj Subjective Date/time seen: 11/28/24 05:48 Interval history: pp day 1 doing well, bp elevated, no longer taking procardia since delivery, denies luo resting comfortably twins doing well, one on blood sugars OB - PN: Obj Data Labs 11/26/24 22:48 OB - PN A/P Plan day: 1 Plan: routine care Comments: start procardia 30mg XL daily Time Spent With Patient Time: Total time spent is greater than 50% in coordination of care (as documented) at patient's floor/unit and/or counseling patient: Review of Systems 2 Review of Systems: All systems reviewed & are unremarkable except as noted in HPI and below Exam 2 Const: General: cooperative, healthy appearing and comfortable Chest: Chest palpation & inspection: normal inspection of the chest Resp: Effort & Inspection: normal respiratory effort Cardio: Rate: regular rate Back/Spine/Pelvis: Back: no CVA tenderness Skin: General skin exam: normal color
[2024-11-28 05:53] LABS: Hematocrit 31.4 % (37.0-47.0); Hemoglobin 10.1 g/dL (12.0-15.0)
--- NOTE | 2024-11-28 08:14 | PC.NURSE ---
Checked in with mother this AM to assess . Mother states that the twins have not been nursing well and she has decided to pump and feed the twins. Mother has her own personal breast pump from home that she is confident using. She denies any questions or concerns at this time. Contact information updated on communication board.
[2024-11-28] MEDS: MULTIVIT/MIN/PREN/FOL AC/IRON TABLET 1 TAB PO (09:10)
--- NOTE | 2024-11-28 13:16 | WPDANLDPN2 ---
Anes-Prog Note L&D Date/Time: 11/28/24 13:16 Comfortable throughout: labor and delivery Neuraxial method: epidural Epidural/Spinal procedure site: clean & non-tender Neuro status: Neuro function grossly intact. Cardiovascular status: normal Respiratory status: normal Airway patency: baseline Mental status: baseline Post-Op hydration status: normal Vital Signs: Last Vital Signs Temp 36.4 C L 11/28/24 07:20 Pulse 72 11/28/24 12:00 Resp 16 11/28/24 07:20 BP 142/85 H 11/28/24 12:00 Pulse Ox 99 11/28/24 07:20 O2 Del Method Room Air 11/28/24 08:00 Pain score (VAS): 1 I/O: Intake & Output 11/27/24 11/28/24 11/28/24 23:59 07:59 15:59 Intake Total 0 Balance 0 Post-procedural complaints: none Patient feedback: Patient satisfied with anesthetic care.
[2024-11-29 04:00] VITALS: BP 149/83; PULSE 75; RESP 18
[2024-11-29 07:25] VITALS: BP 140/89; PULSE 88; RESP 16; TEMP 36.4; O2SAT 99
[2024-11-29] MEDS: MULTIVIT/MIN/PREN/FOL AC/IRON TABLET 1 TAB PO (07:56)
[2024-11-29] MEDS: IBUPROFEN 600 MG TABLET PO ×2 (07:56→14:30)
--- NOTE | 2024-11-29 08:04 | P.PNOB_ITS ---
OB - PN: Subj Subjective Date/time seen: 11/29/24 08:04 Interval history: pp day 1 doing well, bp elevated, no longer taking procardia since delivery, luo overnight resolved after rest and eating OB - PN: Obj Data Labs 11/28/24 04:26 OB - PN A/P Plan day: 2 Plan: routine care and discharge home Time Spent With Patient Time: Total time spent is greater than 50% in coordination of care (as documented) at patient's floor/unit and/or counseling patient: Review of Systems 2 Review of Systems: All systems reviewed & are unremarkable except as noted in HPI and below Exam 2 Const: General: cooperative and healthy appearing Chest: Chest palpation & inspection: normal inspection of the chest Resp: Effort & Inspection: normal respiratory effort Back/Spine/Pelvis: Back: no CVA tenderness
--- NOTE | 2024-11-29 08:10 | PM.OBDSVD ---
DS: Admitting Diagnosis Discharge Date 11/29/24 Admitting Diagnosis labor DS: Discharge Diagnosis Discharge Diagnosis (1) (normal spontaneous vaginal delivery): Code(s): O80 - Encounter for full-term uncomplicated delivery Status: Acute OB - DS: Summary OB Procedures : None OB Procedures Intrapartum: Spontaneous Vag Delivery OB Procedures: : None Peripartum Data Episiotomy description: None Time Spent with Patient Time attestation: Total time spent providing and/or coordinating discharge services: DS: Data Data Completed and Pending Completed studies during hospitalization: Pending at discharge 11/27/24 07:19 Surgical [PTH] Routine Discharge Plan Discharge Attending physician on discharge: Eloy Moser Discharging Clinician: Cindi Bryant Patient Disposition: Home Activity: pelvic rest Diet: regular Patient Instructions: Antibiotic Form Patient Language: Tamazight Stand Alone Forms: General Discharge Information Follow-up/Referrals: Cindi Bryant, CNM [Certified Nurse Infrastructure Security Architect] - 1 Week Discharge Medications: New nifedipine [Procardia XL] 30 mg Tablet Extended Release 24hr 30 mg PO QAM Qty: 30 0RF labetalol 100 mg Tablet 200 mg PO Q12HR Qty: 60 0RF Continued pantoprazole 40 mg tablet,delayed release (DR/EC) 40 mg PO Q12H cyclobenzaprine 5 mg tablet 5 mg PO Q12H PNV 115-iron [id number] 29 mg iron- 1 mg-25 mg tablet 1 tablet PO DAILY Discontinued nifedipine 10 mg capsule 10 mg PO Q6H PRN (Reason: contractions) Qty: 60 0RF nifedipine 60 mg tablet extended release 24hr 60 mg PO DAILY aspirin 81 mg tablet,chewable 81 mg PO DAILY Date of admission: 11/26/24 22:25 Primary Care Provider: UNKNOWN,DOCTOR Admitting Provider: Messi Garcia Attending physician on admission: Messi Garcia Condition: Stable
[2024-11-29 08:19] VITALS: PULSE 86
[2024-11-29] MEDS: LABETALOL HCL 100 MG TABLET 200 MG PO (08:19)
[2024-11-29] MEDS: ACETAMINOPHEN 325 MG TABLET 650 MG PO ×2 (08:20→14:30)
[2024-11-29 09:35] VITALS: BP 113/65; PULSE 78; RESP 24; O2SAT 98
--- NOTE | 2024-11-29 10:30 | PC.NURSE ---
Mother verbalizes she is able to independently latch both babies with appropriate positioning and alignment. She denies any nipple discomfort and is responsively . She is supplementing with pumped breast milk and/or formula after . Infants are currently meeting outcomes for weight, output, jaundice, blood sugar and feeding frequencies of 8-12 times in 24 hours. Mother declines any additional assistance or education at this time. Mother is encouraged to call for assistance if her doesn?t latch, pain with latching, questions or concerns. Mother voiced understanding of information shared along with the mom/baby guide for an additional discharge resource. She has her own breast pump. Reported to the Primary RN.
--- NOTE | 2024-11-29 11:07 | PC.NURSE ---
Patient instucted on viewing the discharge video Mother & Baby Care, The First Two Weeks. Patient was given the opportunity and encouraged to ask questions. Patient verbalized understanding of information shared and has been given the mother/baby guide for home reference.
[2024-11-30 12:46] VITALS: BP 130/87; PULSE 80; RESP 18; TEMP 36.4; O2SAT 100
== END 2024-11-29 15:37 | disposition home or self-care (01) | DRG 806 ==
LOC: ANHOB2 11-29 08:10 → ANHLDR 12-02 08:44 → ANHOB2 12-02 08:44
PROVIDERS: Admitting Provider Obstetrics & Gynecology; Visit Provider Obstetrics & Gynecology
DX: O30.043 Twin pregnancy, dichorionic/diamniotic, third trimester (principal); O10.92 Unspecified pre-existing hypertension complicating childbirth; Z37.2 Twins, both liveborn; O69.81X1 Labor and delivery complicated by cord around neck, without compression, fetus 1; O69.82X2 Labor and delivery complicated by other cord entanglement, without compression, fetus 2; O99.824 Streptococcus B carrier state complicating childbirth; O24.429 Gestational diabetes mellitus in childbirth, unspecified control; O62.3 Precipitate labor; Z3A.36 36 weeks gestation of pregnancy
CPT/HCPCS: 36415; 85014; 85018; 85025; 86593; 86850; 86900; 86901; 88307; J0690; A9270; J0290; J2590; J2795; J7120